=== PATIENT | male | born 1960 | race Caucasian/White ===

== ENCOUNTER 2018-03-30 11:50 | Observation (INO) | payer MEDICAID, SELFPAY ==
[2018-03-30] VITALS (13 sets, daily range): BP systolic 128–175; BP diastolic 66–105; PULSE 59–76; RESP 14–20; TEMP 36.1–37.2; O2SAT 94–97; BMI 56.9; BMI 55.5
[2018-03-30] MEDS: Aspirin 81 MG TAB.CHEW 324 MG PO (12:32)
[2018-03-30] MEDS: Morphine 4 MG/ML Syringe IV (12:32)
--- NOTE | 2018-03-30 12:36 | RAD_ITS ---
STUDY: X-RAY CHEST REASON FOR EXAM: Male, 57 years old. Chest pain TECHNIQUE: AP portable view of the chest. The image is over penetrated. COMPARISON: November 30, 2015. FINDINGS: There are monitoring devices. There is stable elevation of the right hemidiaphragm. There is no focal infiltrate seen. There is no demonstrated pleural abnormality. There is borderline cardiomegaly. Normal mediastinum and tom. Normal visualized pulmonary arteries. Normal visualized aortic arch and descending thoracic aorta. Normal visualized thoracic spine. Normal visualized ribs, clavicles, and shoulders. There is no demonstrated abnormality of the visualized soft tissue structures of the upper abdomen. RAD/Chest 1 View (Portable) IMPRESSION: No infiltrate seen. Overpenetrated exam. Electronically Signed: Juan Miguel Horner MD at 13:55 EDT , Service support ,
[2018-03-30 12:56] LABS: Absolute Lymphocyte Count 1.06 X10^3/ul (0.83-4.51); Absolute Neutrophil Count 3.3 X10^3/uL (2.0-7.7); Basophil# 0.02 X10^3/uL; Basophil% 0.4 % (0-1); Eosinophil# 0.13 X10^3/uL; Eosinophils% 2.6 % (0-5); Hemoglobin 14.6 g/dl (13.0-16.5); Lymphocyte # 1.06 X10^3/ul (4.0); Lymphocyte % 21.5 % (19-41); Mean Corp Hgb Conc 33.2 g/gl (32-36); Mean Corpuscular Hgb 31.5 pg (27.0-32.0); Mean Platelet Vol. 9.8 fl (6.2-12.0); Monocyte# 0.43 X10^3/uL; Monocyte% 8.7 % (0-10); Neutrophil # 3.27 X10^3/uL (2.7-7.7); Neutrophil % 66.6 % (47-70); Platelet Count 211 K/mm3 (150-450); RBC Distribution Width CV 16.5 % (11.6-14.6); RBC Distribution Width SD 56.8 fl (35.1-43.9); Red Blood Count 4.63 M/mm3 (4.6-6.2); White Blood Count 4.9 K/mm3 (4.4-11.0)
[2018-03-30 12:58] LABS: POSITIVE COUNT NO; POSITIVE DIFFERENTIAL NO; POSITIVE MORPHOLOGY NO
[2018-03-30 13:10] LABS: Anion Gap 5 (5-15); BUN 6 mg/dL (7-18); BUN/Creat Ratio 8.6 RATIO (10-20); Calcium,Total 8.2 mg/dL (8.5-10.1); Chloride 100 mmol/L (98-107); Creatinine, Serum 0.69 mg/dL (0.70-1.30); EST Glomerular Filtration Rate 125 mL/min (>60); Est Glom Filt Rate - Afr Amer 151 mL/min (>60); Estimated Creatinine Clearance 138.99 ml/min; Glucose 104 mg/dL (74-106); Potassium 4.5 mmol/L (3.5-5.1); Sodium Level 136 mmol/L (136-145)
--- NOTE | 2018-03-30 13:31 | ED.VISSUMM ---
- ER Visit Summary Date of Service: 03/30/18 Chief Complaint: Pain History of Present Illness: The patient is a 57 M with left sided chest pain and left-sided back pain. Worse with exertion. Associated with weakness and shortness of breath. He has some trouble lifting his left arm and moving his left arm secondary to pain. He denies any injury. Denies any history of this in the past. Denies any weakness or numbness. Denies any history of DVT or aortic disease. He does have a history of fibromyalgia, hypertension, anemia, among other chronic medical issues. He denies any heart disease history. He thinks he had a stress test about 2 years ago which was unremarkable. He does not smoke. Physical Examination: Blood pressure 175/105. Otherwise vitals unremarkable. Afebrile. Alert and oriented. No acute distress. Heart regular rate and rhythm. Lungs clear. Abdomen soft and nontender. Extremities unremarkable. Good pulses. Legs soft and supple. Skin appears normal in color without diaphoresis or pallor. Test Results: EKG shows sinus rhythm at a rate of 58. No sign of acute ischemia or infarction pattern. CBC, BMP, and troponin unremarkable. Chest x-ray pending. Emergency Department Course and Treatment: Patient has some suspicion for ACS. His age and risk factors indicate a heart score of 4. ROLANDO score is 1. Patient is appropriate for hospital observation. Will discuss with the hospitalist for further care. Treatment Plan: As above Disposition: Admission Impression: 1. Chest pain This note was generated with [employer] dictation software. It may contain incorrect words, spelling, and punctuation that were not noted in review of the chart prior to signing ED Disposition - Plan for ED Patient: Chief Complaint: Chest Pain Referrals: Kieran Beard MD [Primary Care Provider] -
--- NOTE | 2018-03-30 15:08 | PCM.HP.STD ---
Problem List (1) Chest pain Status: Acute History of Present Illness Date of Admission: 03/30/18 Chief Complaint: chest pain. The patient is a 57 year old M presents with a 2 day history of constant chest pain. Patient states that the chest pain is worse when he exerts himself, takes a deep breath and coughs. Patient states that he is short of breath because he feels he cannot take in a adequate breath. Patient presents to the emergency room and his workup here has been unremarkable. Hospitalist services been asked to admit the patient for further chest pain evaluation. [] Past Medical History Medical History: Medical History (Last Updated 03/30/18 @ 15:10 by Ankit Aguilar DO) Calcium deficiency E58 Depression F32.9 Fibromyalgia M79.7 Hypoglycemia E16.2 Neuropathy G62.9 Vitamin B12 deficiency E53.8 HTN (hypertension) I10 Allergies duloxetine [From Cymbalta] Adverse Reaction (Verified 03/30/18 11:57) Other SERATONIN SYNDROME Home Medications: Ambulatory Orders Medication Instructions Recorded Lisinopril [Zestril] 20 mg PO DAILY 11/30/15 Albuterol Inhaler [Ventolin Hfa 2 puff INHALATION Q6H PRN PRN 03/30/18 (SP)] Baclofen [Lioresal] 10 mg PO BID 03/30/18 Clonazepam [Klonopin] 1 mg PO BID 03/30/18 Cyanocobalamin (Vitamin B-12) 1,000 mcg IM QMONTH 03/30/18 [Vitamin B-12] Ferrous Sulfate [Iron] 325 mg PO DAILY 03/30/18 Gabapentin [Neurontin] 300 mg PO TIDCM 03/30/18 Hydrochlorothiazide [Hctz] 25 mg PO DAILY 03/30/18 Metoprolol Tartrate [Lopressor 50 mg PO BID 03/30/18 (Beta Remi)] Sertraline HCl [Zoloft] 100 mg PO QHS 03/30/18 Sulfamethoxazole/Trimethoprim 1 each PO DAILY 03/30/18 [Bactrim 400-80 mg Tablet] Surgical History: Surgical History (Last Updated 03/30/18 @ 15:11 by Ankit Aguilar DO) H/O gastric bypass Z98.84 Psychiatric History: Depression Lives: Friends Smoking Status: Former smoker Tobacco Use: Cigarettes Alcohol: Occasional Drugs: Marijuana - rare - *Family History Paternal History Items: Heart Disease Review of Systems Constitutional: Denies: Anorexia, Chills, Fever Eyes: Reports: Blurred vision - occasional. Denies: Double vision HEENT: Denies: Head Aches, Sinus Congestion, Sinus Drainage Cardiovascular: Reports: Chest Pain. Denies: Edema Respiratory: Reports: Shortness of Breath. Denies: Cough Gastrointestinal: Reports: Abdominal Pain, Diarrhea - x1 month Genitourinary: Denies: Dysuria Musculoskeletal: Reports: Arm Pain - left arm pain when raised. Denies: Joint Pain, Joint Tenderness Skin: Denies: Dryness, Jaundice Neurological: Denies: Numbness, Tingling, Focal weakness Psychiatric: Denies: Anxiety, Depression Endocrine: Reports: Heat/ Cold Intolerance. Denies: Change in Body Habitus Hematologic/ Lymphatic: Denies: Easy Bruising, Easy Bleeding, Hx of blood clot Comment: All review of systems are negative except as mentioned in the history of present illness and the other review of systems. VTE Information - Inpt Only VTE Present on Admission: No VTE Mechan Device Prophylaxis: None VTE Pharm Prophylaxis ordered?: Yes Patient Problems: Active and Suspected Problems Chest pain (Acute) - Physical Exam General: Alert, Cooperative, No apparent distress HEENT: Atraumatic, Normocephalic Oral: Moist Mucosa, No Gingival or Mucosal Lesions/ Ulcerations Neck: No Nodes, Thyroid Normal Size and Texture Lungs: Clear to auscultation, Normal air movement, No rhonchi, No wheeze Cardiovascular: Regular rate, Regular Rhythm, Normal S1, Normal S2, No murmurs Abdomen: Bowel Sounds Present, Soft, Non Tender, Non-Distended, No Hepato-splenomegaly Extremities: No Calf Tenderness, Edema - Trace Skin: No rashes, No breakdown Musculoskeletal: No Muscle Wasting, - - Reproducible exquisite left-sided chest tenderness that was reproducible on the same side in his back. Neurological: Neuro grossly intact, Muscle tone normal Psych/Mental Status: Normal Affect, Appropriate Vital Signs Temp Pulse Resp BP Pulse Ox 36.1 C L 61 20 H 134/84 H 97 03/30/18 14:35 03/30/18 14:35 03/30/18 14:35 03/30/18 14:35 03/30/18 14:34 Oxygen Delivery Method Room Air Weight: 201 kg Body Mass Index (BMI) 56.9 Laboratory Tests Past 24 Hrs 03/30/18 03/30/18 11:59 11:59 WBC 4.9 RBC 4.63 Hgb 14.6 Hct 44.0 MCV 95.0 H MCH 31.5 MCHC 33.2 RDW 16.5 H RDW Differential 56.8 H Plt Count 211 MPV 9.8 Immature Gran % (Auto) 0.200 Neut % (Auto) 66.6 Lymph % (Auto) 21.5 [place] % (Auto) 8.7 Eos % (Auto) 2.6 Baso % (Auto) 0.4 Absolute Neuts (auto) 3.3 Absolute Lymphs (auto) 1.06 Total Counted Not Reportable Sodium 136 Potassium 4.5 Chloride 100 Carbon Dioxide 31.0 Anion Gap 5 BUN 6 L Creatinine 0.69 L Estim Creat Clear Calc 138.99 Est GFR (MDRD) Af Amer 151 Est GFR (MDRD) Non-Af 125 BUN/Creatinine Ratio 8.6 L Glucose 104 Calcium 8.2 L Troponin I < 0.015 EKG reviewed and showed normal sinus rhythm with no acute changes. Chest x-ray reviewed and showed no pneumonia nor pulmonary edema. Assessment/Plan All Active Problems Chest pain (Acute) 1. Chest pain Doubt cardiac in suspect musculoskeletal Heart score of 2, ROLANDO of 0 Request admission through the emergency room for chest pain rule out and patient will be ordered a nuclear stress test which will be performed on the if that is negative the patient will be discharged home. If positive, cardiology will be consulted for further input Aspirin Check lipid panel Cycle troponins 2. DVT prophylaxis: Moderate risk. Lovenox. Code Visit OBSV E&M: 26569 Initial observation care L3
--- NOTE | 2018-03-30 15:12 | HP.PCM_ITS ---
Problem List (1) Chest pain Status: Acute History of Present Illness Date of Admission: 03/30/18 Chief Complaint: chest pain. The patient is a 57 year old M presents with a 2 day history of constant chest pain. Patient states that the chest pain is worse when he exerts himself, takes a deep breath and coughs. Patient states that he is short of breath because he feels he cannot take in a adequate breath. Patient presents to the emergency room and his workup here has been unremarkable. Hospitalist services been asked to admit the patient for further chest pain evaluation. [] Past Medical History Medical History: Medical History (Last Updated 03/30/18 @ 15:10 by Ankit Aguilar DO) Calcium deficiency E58 Depression F32.9 Fibromyalgia M79.7 Hypoglycemia E16.2 Neuropathy G62.9 Vitamin B12 deficiency E53.8 HTN (hypertension) I10 Allergies duloxetine [From Cymbalta] Adverse Reaction (Verified 03/30/18 11:57) Other SERATONIN SYNDROME Home Medications: Ambulatory Orders Medication Instructions Recorded Lisinopril [Zestril] 20 mg PO DAILY 11/30/15 Albuterol Inhaler [Ventolin Hfa 2 puff INHALATION Q6H PRN PRN 03/30/18 (SP)] Baclofen [Lioresal] 10 mg PO BID 03/30/18 Clonazepam [Klonopin] 1 mg PO BID 03/30/18 Cyanocobalamin (Vitamin B-12) 1,000 mcg IM QMONTH 03/30/18 [Vitamin B-12] Ferrous Sulfate [Iron] 325 mg PO DAILY 03/30/18 Gabapentin [Neurontin] 300 mg PO TIDCM 03/30/18 Hydrochlorothiazide [Hctz] 25 mg PO DAILY 03/30/18 Metoprolol Tartrate [Lopressor 50 mg PO BID 03/30/18 (Beta Remi)] Sertraline HCl [Zoloft] 100 mg PO QHS 03/30/18 Sulfamethoxazole/Trimethoprim 1 each PO DAILY 03/30/18 [Bactrim 400-80 mg Tablet] Surgical History: Surgical History (Last Updated 03/30/18 @ 15:11 by Ankit Aguilar DO) H/O gastric bypass Z98.84 Psychiatric History: Depression Lives: Friends Smoking Status: Former smoker Tobacco Use: Cigarettes Alcohol: Occasional Drugs: Marijuana - rare - *Family History Paternal History Items: Heart Disease Review of Systems Constitutional: Denies: Anorexia, Chills, Fever Eyes: Reports: Blurred vision - occasional. Denies: Double vision HEENT: Denies: Head Aches, Sinus Congestion, Sinus Drainage Cardiovascular: Reports: Chest Pain. Denies: Edema Respiratory: Reports: Shortness of Breath. Denies: Cough Gastrointestinal: Reports: Abdominal Pain, Diarrhea - x1 month Genitourinary: Denies: Dysuria Musculoskeletal: Reports: Arm Pain - left arm pain when raised. Denies: Joint Pain, Joint Tenderness Skin: Denies: Dryness, Jaundice Neurological: Denies: Numbness, Tingling, Focal weakness Psychiatric: Denies: Anxiety, Depression Endocrine: Reports: Heat/ Cold Intolerance. Denies: Change in Body Habitus Hematologic/ Lymphatic: Denies: Easy Bruising, Easy Bleeding, Hx of blood clot Comment: All review of systems are negative except as mentioned in the history of present illness and the other review of systems. VTE Information - Inpt Only VTE Present on Admission: No VTE Mechan Device Prophylaxis: None VTE Pharm Prophylaxis ordered?: Yes Patient Problems: Active and Suspected Problems Chest pain (Acute) - Physical Exam General: Alert, Cooperative, No apparent distress HEENT: Atraumatic, Normocephalic Oral: Moist Mucosa, No Gingival or Mucosal Lesions/ Ulcerations Neck: No Nodes, Thyroid Normal Size and Texture Lungs: Clear to auscultation, Normal air movement, No rhonchi, No wheeze Cardiovascular: Regular rate, Regular Rhythm, Normal S1, Normal S2, No murmurs Abdomen: Bowel Sounds Present, Soft, Non Tender, Non-Distended, No Hepato- splenomegaly Extremities: No Calf Tenderness, Edema - Trace Skin: No rashes, No breakdown Musculoskeletal: No Muscle Wasting, - - Reproducible exquisite left-sided chest tenderness that was reproducible on the same side in his back. Neurological: Neuro grossly intact, Muscle tone normal Psych/Mental Status: Normal Affect, Appropriate Vital Signs Temp Pulse Resp BP Pulse Ox 36.1 C L 61 20 H 134/84 H 97 03/30/18 14:35 03/30/18 14:35 03/30/18 14:35 03/30/18 14:35 03/30/18 14:34 Oxygen Delivery Method Room Air Weight: 201 kg Body Mass Index (BMI) 56.9 Laboratory Tests Past 24 Hrs 03/30/18 03/30/18 11:59 11:59 WBC 4.9 RBC 4.63 Hgb 14.6 Hct 44.0 MCV 95.0 H MCH 31.5 MCHC 33.2 RDW 16.5 H RDW Differential 56.8 H Plt Count 211 MPV 9.8 Immature Gran % (Auto) 0.200 Neut % (Auto) 66.6 Lymph % (Auto) 21.5 [place] % (Auto) 8.7 Eos % (Auto) 2.6 Baso % (Auto) 0.4 Absolute Neuts (auto) 3.3 Absolute Lymphs (auto) 1.06 Total Counted Not Reportable Sodium 136 Potassium 4.5 Chloride 100 Carbon Dioxide 31.0 Anion Gap 5 BUN 6 L Creatinine 0.69 L Estim Creat Clear Calc 138.99 Est GFR (MDRD) Af Amer 151 Est GFR (MDRD) Non-Af 125 BUN/Creatinine Ratio 8.6 L Glucose 104 Calcium 8.2 L Troponin I < 0.015 EKG reviewed and showed normal sinus rhythm with no acute changes. Chest x-ray reviewed and showed no pneumonia nor pulmonary edema. Assessment/Plan All Active Problems Chest pain (Acute) 1. Chest pain * Doubt cardiac in suspect musculoskeletal * Heart score of 2, ROLANDO of 0 * Request admission through the emergency room for chest pain rule out and patient will be ordered a nuclear stress test which will be performed on the if that is negative the patient will be discharged home. If positive, cardiology will be consulted for further input * Aspirin * Check lipid panel * Cycle troponins 2. DVT prophylaxis: Moderate risk. Lovenox. Code Visit OBSV E&M: 13403 Initial observation care L3
--- NOTE | 2018-03-30 15:35 | NURSING ---
CALLED [facility] IN ER. [facility] TO SEND PT.
[2018-03-30] MEDS: Gabapentin 300 MG Capsule PO ×2 (18:39→23:15)
[2018-03-30] MEDS: 0.9% NaCl Peripheral Flush Adult/Peds IV ×2 (19:01→23:22)
[2018-03-30] MEDS: Morphine 2 MG/ML Syringe IV ×2 (19:01→23:20)
[2018-03-30] MEDS: Baclofen 10 MG Tablet PO (21:08)
[2018-03-30] MEDS: Metoprolol Tartrate 50 MG Tablet PO (21:08)
[2018-03-30] MEDS: Sertraline 100 MG Tablet PO (21:08)
[2018-03-30] MEDS: clonazePAM 1 MG Tablet PO (21:16)
[2018-03-31] VITALS (10 sets, daily range): BP systolic 126–150; BP diastolic 64–76; PULSE 60–70; RESP 16–18; TEMP 36.7–37.1; O2SAT 93–99
[2018-03-31] MEDS: 0.9% NaCl Peripheral Flush Adult/Peds IV (03:37)
[2018-03-31] MEDS: Morphine 2 MG/ML Syringe IV ×2 (03:37→07:53)
--- NOTE | 2018-03-31 05:55 | NM_ITS ---
CLINICAL: 57-year-old male with reported history of atypical chest discomfort. REST-REGADENOSON 99m Tc SESTAMIBI STRESS MYOCARDIAL PERFUSION SPECT COMPARISON: None available FINDINGS: Following the intravenous administration of 15.0 mCi of 99m Tc sestamibi, the resting non-attenuated correction myocardial perfusion acquisitions demonstrate decreased perfusion in the apical, inferoapical, inferior and basal inferior segments with otherwise heterogeneous perfusion noted in the remaining left ventricular myocardial segments. The left ventricular chamber is prominent in size. The patient was administered intravenous regadenoson (0.4 mgm). Following the intravenous administration of 45.0 mCi of 99m Tc sestamibi, the post regadenoson images reveal improved perfusion identified in the apical, inferoapical, inferior and basal inferior segments with decreased heterogeneity noted in the remaining left ventricular myocardial segments. No newly identified decreased perfusion is noted. The left ventricular chamber remains prominent in size, unchanged compared to the resting acquisitions. The post stress resting left ventricular ejection fraction is calculated to be 55.0 % by gated SPECT technique. Wall motion and end systolic thickening are considered normal. The end-diastolic and end-systolic volumes are calculated to be 135 and 60 cc respectively. NM/Nuclear Stress Test - Chemical IMPRESSION: 1. There is no definitive scintigraphic evidence of pharmacologic induced left ventricular ischemia. 2. The overall resting heterogeneous perfusion and rest perfusion defects identified in the apical, inferoapical, inferior and basal inferior segments with improvement on the post stress acquisitions are likely attributed to attenuation artifact associated with relative low dose rest acquisition radiopharmaceutical administration, in the absence of previous revascularization. ([place], J Nucl Med 36: 1019, 1995). 3. There is preservation of resting left ventricular myocardial systolic function. The left ventricular chamber is mildly dilated on the post stress acquisitions, unchanged at rest. The end-diastolic volume is elevated compared to normal controls. (Jayde et al, J Nucl Med 37: 105P, 1995). Electronically Signed: Brandyn Hardy DO at 14:30 EDT Tel , Service support ,
[2018-03-31] MEDS: Aspirin E.C. 81 MG Tablet PO (06:40)
[2018-03-31] MEDS: Lisinopril 20 MG Tablet PO (06:41)
[2018-03-31 07:11] LABS: Bedside Glucose 109 mg/dL (70-110)
[2018-03-31 07:31] LABS: Absolute Neutrophil Count 2.8 X10^3/uL (2.0-7.7); Basophil# 0.01 X10^3/uL; Basophil% 0.2 % (0-1); Eosinophil# 0.14 X10^3/uL; Eosinophils% 2.8 % (0-5); Hematocrit 41.2 % (40-54); Hemoglobin 13.2 g/dl (13.0-16.5); Lymphocyte % 31.6 % (19-41); Mean Corpuscular Hgb 30.9 pg (27.0-32.0); Mean Corpuscular Volume 96.5 fL (80-94); Mean Platelet Vol. 9.6 fl (6.2-12.0); Monocyte# 0.51 X10^3/uL; Monocyte% 10.1 % (0-10); Neutrophil # 2.81 X10^3/uL (2.7-7.7); Neutrophil % 55.3 % (47-70); Platelet Count 162 K/mm3 (150-450); RBC Distribution Width CV 16.6 % (11.6-14.6); RBC Distribution Width SD 58.2 fl (35.1-43.9); Red Blood Count 4.27 M/mm3 (4.6-6.2); White Blood Count 5.1 K/mm3 (4.4-11.0)
[2018-03-31 07:32] LABS: POSITIVE COUNT NO; POSITIVE DIFFERENTIAL NO; POSITIVE MORPHOLOGY NO
[2018-03-31 07:34] LABS: International Normalized Ratio 1.1; Prothrombin Time (Protime)PT. 14.3 SECONDS (11.7-14.9)
[2018-03-31 07:35] LABS: Partial Thromboplast Time 29.7 Seconds (24.1-36.2)
[2018-03-31 07:50] LABS: Anion Gap 11 (5-15); BUN 8 mg/dL (7-18); Calcium,Total 7.9 mg/dL (8.5-10.1); Chloride 101 mmol/L (98-107); Cholesterol 115 mg/dL (200); Creatinine, Serum 0.73 mg/dL (0.70-1.30); EST Glomerular Filtration Rate 118 mL/min (>60); Est Glom Filt Rate - Afr Amer 143 mL/min (>60); Estimated Creatinine Clearance 131.37 ml/min; Glucose 95 mg/dL (74-106); High Density Lipoprotein 45 mg/dL; Potassium 4.3 mmol/L (3.5-5.1); Sodium Level 141 mmol/L (136-145); Triglycerides 150 mg/dL; Very Low Density Lipoprotein 30 mg/dL (5-40)
[2018-03-31] MEDS: oxyCODONE 5 MG Tablet PO ×2 (11:44→16:09)
[2018-03-31] MEDS: Ferrous Sulfate 325 MG Tablet PO (11:52)
[2018-03-31] MEDS: Metoprolol Tartrate 50 MG Tablet PO (11:52)
[2018-03-31] MEDS: Baclofen 10 MG Tablet PO (11:53)
[2018-03-31] MEDS: hydroCHLOROthiazide 25 MG Tablet PO (11:53)
[2018-03-31] MEDS: Gabapentin 300 MG Capsule PO (11:53)
[2018-03-31] MEDS: Smz/Tmp Ds Tablet 0.5 TABLET PO (11:53)
[2018-03-31] MEDS: Enoxaparin 40 MG/0.4 ML Syringe SC (11:54)
[2018-03-31] MEDS: clonazePAM 1 MG Tablet PO (12:03)
[2018-03-31 13:38] LABS: D-Dimer Quantitative (DVT/PE) 1.29 FEU/ug/m (0.27-0.49)
--- NOTE | 2018-03-31 13:47 | CT_ITS ---
STUDY: CTA CHEST REASON FOR EXAM: Male, 57 years old. Chest pain. Fibromyalgia. RADIATION DOSAGE (If Supplied By Facility): CTDIvol = ( 73.57 ) mGy, DLP = ( 1084.65 ) mGycm TECHNIQUE: The examination was performed with the intravenous administration of 100 ml of Isovue 370 contrast material. Post-processing of the angiographic images was performed, with multiplanar reformation and 3D reconstruction. Individualized dose optimization techniques were used for this CT. COMPARISON: November 30, 2015. FINDINGS: There is limited enhancement of the main pulmonary artery and right and left pulmonary arteries. There is limited enhancement of the bilateral peripheral pulmonary arteries. There is no demonstrated pulmonary embolism. Normal thoracic aorta and visualized great vessels. There is no demonstrated aortic dissection. There are calcifications of the coronary arteries. Normal mediastinum. Normal hilar regions. Normal visualized trachea and bronchi. The lungs are well expanded. Elevation of the anterior right hemidiaphragm. Normal pulmonary parenchyma. Normal pleura. Normal chest wall structures. There are degenerative changes of thoracic spine. Normal visualized upper abdomen. Metallic densities medial to the spleen. Postoperative change at the stomach. CT/CTA Chest W/WO Contrast IMPRESSION: CTA chest examination, without a demonstrated pulmonary embolism or arterial dissection. Electronically Signed: Juan Miguel Horner MD at 15:27 EDT , Service support ,
--- NOTE | 2018-03-31 14:01 | PN_ITS ---
Patient Problems: Active and Suspected Problems (Last Updated 03/30/18 @ 15:10 by Ankit Aguilar DO ) Chest pain (Acute) Subjective: still with left sided chest pain. Vitals/I&O's: Vital Signs Temp Pulse Resp BP Pulse Ox 36.7 C 64 16 146/64 H 99 03/31/18 12:07 03/31/18 12:07 03/31/18 12:07 03/31/18 12:07 03/31/18 12:07 Oxygen Flow Rate (L/min) 2 Oxygen Delivery Method Nasal Cannula Weight: 196.315 kg Body Mass Index (BMI) 55.5 Intake and Output for Last 24 Hours 03/29/18 03/30/18 03/31/18 23:59 23:59 23:59 Intake Total 240 / 240 480 / 480 Output Total 2425 / 2425 Balance 240 / 240 -1945 / -1945 General: Alert, - - uncomfortable. HEENT: Atraumatic, Normocephalic Oral: Moist Mucosa, No Gingival or Mucosal Lesions/ Ulcerations Neck: No Nodes, Thyroid Normal Size and Texture Lungs: Clear to auscultation, Normal air movement, No rhonchi, No wheeze Cardiovascular: Regular rate, Regular Rhythm, Normal S1, Normal S2, No murmurs Abdomen: Bowel Sounds Present, Soft, Non Tender, Non-Distended, No Hepato- splenomegaly Extremities: No edema, No Calf Tenderness Skin: No rashes, No breakdown Musculoskeletal: - - reproducible left chest wall tenderness. Psych/Mental Status: Normal Affect, Appropriate Laboratory Results 03/30/18 16:34: Troponin I < 0.015 03/30/18 19:11: Troponin I < 0.015 03/31/18 06:43: POC Glucose 109 03/31/18 07:08: Sodium 141, Potassium 4.3, Chloride 101, Carbon Dioxide 29.0, Anion Gap 11, BUN 8, Creatinine 0.73, Estim Creat Clear Calc 131.37, Est GFR ( MDRD) Af Amer 143, Est GFR (MDRD) Non-Af 118, BUN/Creatinine Ratio 11.0, Glucose 95, Calcium 7.9 L, Triglycerides 150, Cholesterol 115, LDL Cholesterol 40, VLDL Cholesterol 30, HDL Cholesterol 45 03/31/18 07:08: WBC 5.1, RBC 4.27 L, Hgb 13.2, Hct 41.2, MCV 96.5 H, MCH 30.9, MCHC 32.0, RDW 16.6 H, RDW Differential 58.2 H, Plt Count 162, MPV 9.6, Immature Gran % (Auto) 0.000, Neut % (Auto) 55.3, Lymph % (Auto) 31.6, [place] % ( Auto) 10.1 H, Eos % (Auto) 2.8, Baso % (Auto) 0.2, Absolute Neuts (auto) 2.8, Absolute Lymphs (auto) 1.60, Total Counted Not Reportable 03/31/18 07:08: PT 14.3, INR 1.1, APTT 29.7 03/31/18 07:08: D-Dimer Quant (PE/DVT) 1.29 H* Current Medications Acetaminophen (Tylenol) 650 mg PO Q6H PRN PRN PRN Reason: Mild Pain (1-3)/Temp > 100.7 F Albuterol Sulfate (Ventolin Aerosols) 2.5 mg INHALATION Q4H PRN PRN PRN Reason: SOB AND/OR WHEEZING Aspirin (Ecotrin) 81 mg PO DAILY@0800 [facility] Last Admin: 03/31/18 06:40 Dose: 81 mg Baclofen (Lioresal) 10 mg PO BID [facility] Last Admin: 03/31/18 11:53 Dose: 10 mg Clonazepam (Klonopin) 1 mg PO BID [facility] Last Admin: 03/31/18 12:03 Dose: 1 mg Cyanocobalamin (Vitamin B12) 1,000 mcg IM QMONTH ONE Stop: 04/21/18 10:01 Enoxaparin Sodium (Lovenox) 40 mg SC DAILY@1000 [facility] Last Admin: 03/31/18 11:54 Dose: 40 mg Ferrous Sulfate (Ferrous Sulfate) 325 mg PO DAILY@1200 [facility] Last Admin: 03/31/18 11:52 Dose: 325 mg Gabapentin (Neurontin) 300 mg PO TIDCM [facility] Last Admin: 03/31/18 11:53 Dose: 300 mg Hydrochlorothiazide (Hctz) 25 mg PO DAILY [facility] Last Admin: 03/31/18 11:53 Dose: 25 mg Lisinopril (Zestril) 20 mg PO DAILY [facility] Last Admin: 03/31/18 06:41 Dose: 20 mg Magnesium Hydroxide (Milk Of Magnesia) 30 ml PO DAILY PRN PRN Reason: Constipation Metoprolol Tartrate (Lopressor (Beta Remi)) 50 mg PO BID [facility] Last Admin: 03/31/18 11:52 Dose: 50 mg Morphine Sulfate () 2 - 4 mg IV Q4H PRN PRN PRN Reason: MOD-SEVERE PAIN (4-10) Last Admin: 03/31/18 07:53 Dose: 4 mg Nitroglycerin (Nitrostat) 0.4 mg SUBLINGUAL Q5M PRN PRN Reason: CHEST PAIN Nutritional Formula (Lactose Free) (Glucerna Shake) 120 ml PO 4X/DAY [facility] Oxycodone HCl (Oxyir) 5 - 10 mg PO Q4H PRN PRN PRN Reason: MOD-SEVERE PAIN (4-05/30) Last Admin: 03/31/18 11:44 Dose: 10 mg Sertraline HCl (Zoloft) 100 mg PO QHS [facility] Last Admin: 03/30/18 21:08 Dose: 100 mg Sodium Chloride () 5 - 30 ml IV UD PRN PRN Reason: SALINE FLUSH Last Admin: 03/31/18 03:37 Dose: 10 ml Trimethoprim/Sulfamethoxazole (Bactrim Ds) 0.5 tablet PO DAILY@0800 [facility] Last Admin: 03/31/18 11:53 Dose: 0.5 tablet Medical Necessity - Tobacco Use Smoking Status: Former smoker Tobacco Use: Cigarettes Assessment/Plan All Active Problems (Last Updated 03/30/18 @ 15:10 by Ankit Aguilar DO) Chest pain (Acute) 1. Chest pain * Doubt cardiac in suspect musculoskeletal * Heart score of 2, ROLANDO of 0 * Request admission through the emergency room for chest pain rule out and patient will be ordered a nuclear stress test which will be performed on the if that is negative the patient will be discharged home. If positive, cardiology will be consulted for further input * Aspirin * Check lipid panel * Cycle troponins * D-Dimer elevated, CTA ordered 2. DVT prophylaxis: Moderate risk. Lovenox. Code Visit OBSV E&M: 60680 Subsequent observation care L2
[2018-03-31] MEDS: Glucerna Shake 120 ML LIQUID PO (15:03)
--- NOTE | 2018-03-31 15:55 | PCM.DC ---
- Discharge Diagnoses Current Active Problems: Current Active and Chronic Problems (Last Updated 03/30/18 @ 15:10 by Ankit Aguilar DO) Chest pain (Acute) You will use the following diet at home:: Cardiac Your food should be the consistency of: Regular Your liquids should be the consistency of: Regular/Thin Discharge Activity: Return to Normal Activity Call your doctor if you observe: Fever of 101 or Higher Instructions: ED Chest Pain NonCardiac Allergies/Adverse Reactions: Allergies duloxetine [From Cymbalta] Adverse Reaction (Verified 03/30/18 11:57) Other SERATONIN SYNDROME Medications to take at Discharge Lisinopril [Zestril] 20 mg PO DAILY 11/30/15 Albuterol Inhaler [Ventolin Hfa] 2 puff INHALATION Q6H PRN PRN 03/30/18 Baclofen [Lioresal] 10 mg PO BID 03/30/18 Clonazepam [Klonopin] 1 mg PO BID 03/30/18 Cyanocobalamin (Vitamin B-12) [Vitamin B-12] 1,000 mcg IM QMONTH 03/30/18 Ferrous Sulfate [Iron] 325 mg PO DAILY 03/30/18 Gabapentin [Neurontin] 300 mg PO TIDCM 03/30/18 Hydrochlorothiazide [Hctz] 25 mg PO DAILY 03/30/18 Metoprolol Tartrate [Lopressor (beta gali)] 50 mg PO BID 03/30/18 Sertraline HCl [Zoloft] 100 mg PO QHS 03/30/18 Sulfamethoxazole/Trimethoprim [Bactrim 400-80 mg Tablet] 1 each PO DAILY 03/30/18 Acetaminophen 1,000 mg PO TID PRN #1 tablet 03/31/18 Ibuprofen 4 tab PO TID PRN #1 tablet 03/31/18 The following prescriptions were given: Acetaminophen 1,000 mg PO TID PRN #1 tablet PRN Reason: Pain Ibuprofen 4 tab PO TID PRN #1 tablet PRN Reason: Pain Primary Care Physician: Kieran Beard MD [Primary Care Provider] - Within 2 Weeks Test Results: Test results from this visit will be discussed in further detail at your follow-up appointment, if applicable. Proposed Discharge Date: 03/31/18
--- NOTE | 2018-03-31 15:56 | PCM.DC.SUM ---
Discharge Date and Diagnosis - Problem List Patient Problems: Active and Suspected Problems (Last Updated 03/30/18 @ 15:10 by Ankit Aguilar DO) Chest pain (Acute) Date of Admission: 03/30/18 Date of Discharge: 03/31/18 - Primary Discharge Diagnosis Active and Suspected Problems (Last Updated 03/30/18 @ 15:10 by Ankit Aguilar DO) Chest pain (Acute) Hospital Course and Treatment Imaging Results: 03/31/18 13:47 CTA Chest W/WO Contrast [CT] Urgent Clinical Impression(s) from Imaging Studies Chest X-Ray 03/30/18 12:36 IMPRESSION: No infiltrate seen. Overpenetrated exam. Electronically Signed: Juan Miguel Horner MD at 13:55 EDT , Service support , Stress Test Nuclear Medicine 03/31/18 05:55 IMPRESSION: 1. There is no definitive scintigraphic evidence of pharmacologic induced left ventricular ischemia. 2. The overall resting heterogeneous perfusion and rest perfusion defects identified in the apical, inferoapical, inferior and basal inferior segments with improvement on the post stress acquisitions are likely attributed to attenuation artifact associated with relative low dose rest acquisition radiopharmaceutical administration, in the absence of previous revascularization. (Lisa and Koffi, J Nucl Med 36: 1019, 1995). 3. There is preservation of resting left ventricular myocardial systolic function. The left ventricular chamber is mildly dilated on the post stress acquisitions, unchanged at rest. The end-diastolic volume is elevated compared to normal controls. (Jayde et al, J Nucl Med 37: 105P, 1995). Electronically Signed: Brandyn Hardy DO at 14:30 EDT Tel , Service support , Chest CTA 03/31/18 13:47 IMPRESSION: CTA chest examination, without a demonstrated pulmonary embolism or arterial dissection. Electronically Signed: Juan Miguel Horner MD at 15:27 EDT , Service support , Operations: None Procedures: None, Stress test Summary of Care Provided: The patient is a 57 year old M presents with acute onset of left-sided chest pain. Patient described it as someone sitting on his chest and also had left arm pain. Patient also did state that was worse with taking a deep breath and felt short of breath because he could not take in a deep breath. Was concerned given his family history. Patient was admitted and underwent a stress test which is negative. Patient did have an elevated d-dimer and underwent a CT injury of the chest which was also negative for pulmonary embolism and infiltrate. Patient has a reproducible component to his chest pains is felt that this is likely a rib related. Patient instructed to take ibuprofen 800 mg 3 times daily as needed for up to 3 days and then acetaminophen thousand milligrams 3 times daily as needed for pain. Reassurance was provided to the patient that this is a muscular skeletal issue and it will get better with time but also told him that it may take a few weeks for it to completely resolve. Patient expressed understanding. [] Discharge Activity: Return to Normal Activity Call your doctor if you observe: Fever of 101 or Higher Home Medications: Medications to take at Discharge Lisinopril [Zestril] 20 mg PO DAILY 11/30/15 Albuterol Inhaler [Ventolin Hfa] 2 puff INHALATION Q6H PRN PRN 03/30/18 Baclofen [Lioresal] 10 mg PO BID 03/30/18 Clonazepam [Klonopin] 1 mg PO BID 03/30/18 Cyanocobalamin (Vitamin B-12) [Vitamin B-12] 1,000 mcg IM QMONTH 03/30/18 Ferrous Sulfate [Iron] 325 mg PO DAILY 03/30/18 Gabapentin [Neurontin] 300 mg PO TIDCM 03/30/18 Hydrochlorothiazide [Hctz] 25 mg PO DAILY 03/30/18 Metoprolol Tartrate [Lopressor (beta gali)] 50 mg PO BID 03/30/18 Sertraline HCl [Zoloft] 100 mg PO QHS 03/30/18 Sulfamethoxazole/Trimethoprim [Bactrim 400-80 mg Tablet] 1 each PO DAILY 03/30/18 Acetaminophen 1,000 mg PO TID PRN #1 tablet 03/31/18 Ibuprofen 4 tab PO TID PRN #1 tablet 03/31/18 Following Prescrptions Were Given to Patient: Acetaminophen 1,000 mg PO TID PRN #1 tablet PRN Reason: Pain Ibuprofen 4 tab PO TID PRN #1 tablet PRN Reason: Pain Primary Care Physician: Kieran Beard MD [Primary Care Provider] - Within 2 Weeks Patient Instructions: ED Chest Pain NonCardiac Medical Necessity - Tobacco Use Smoking Status: Former smoker Tobacco Use: Cigarettes Meaningful Use Info Meaningful Use Diagnoses (Choose all that apply): None applicable Code Visit OBSV E&M: 16711 Observation care discharge
--- NOTE | 2018-04-02 15:29 | STRESSREP ---
Stress Test Report Pharmacologic myocardial perfusion stress test. 57-year-old male with a history of chest pain. Stress protocol: Resting EKG demonstrates sinus rhythm with rate of 60 bpm resting blood pressure is 138/80 mmHg. 0.4 mg regadenoson was infused per usual protocol followed by rapid intravenous saline flush injection continuous EKG monitoring was performed. The patient maintained sinus rhythm throughout the recording. The maximum heart rate attained was 81 bpm which is 49% of maximum predicted heart rate the maximum workload was 1 metabolic equivalent. There were no ST or T-wave changes noted to suggest abnormal flow reserve. Myocardial perfusion protocol. The above was performed by the nuclear helmet hat brim cutter. Conclusion: Pharmacologic myocardial perfusion stress test with no EKG evidence of abnormal flow reserve. Nuclear images dictated separately.
== END 2018-03-31 15:56 | disposition home or self-care (01) ==
LOC: ED 13:50 → PCU 15:51
PROVIDERS: Emergency Provider Emergency Medicine; Family Provider Family Medicine; PCP Family Medicine
DX: R07.89 Other chest pain (principal); M79.7 Fibromyalgia; I10 Essential (primary) hypertension; D64.9 Anemia, unspecified; R06.02 Shortness of breath; Z87.891 Personal history of nicotine dependence; Z79.899 Other long term (current) drug therapy; F32.9 Major depressive disorder, single episode, unspecified; E53.8 Deficiency of other specified B group vitamins; Z98.84 Bariatric surgery status
CPT/HCPCS: 36415; 71045; 71275; 78452; 80048; 80061; 82962; 84484; 85025; 85379; 85610; 85730; 93005; 93017; 96372; 96374; 96376; 97802; 99218; 99284; A9500; Q9967; A4216; G0378; J2785

== ENCOUNTER 2018-05-29 07:20 | Day surgery (SDC) | payer MEDICAID, SELFPAY ==
[2018-05-29 07:59] VITALS: BP 159/86; PULSE 76; RESP 16; TEMP 36.3; O2SAT 95; BMI 57.4
--- NOTE | 2018-05-29 08:30 | ESO_PTH ---
PATIENT: ACRLIN SMITH LOC: EN U#:[id number] AGE/SX: 57/M ROOM: RE05/29/[address]: Dr. Darrian Carter MD : 1960 BED: DIS: 05/29/2018 SPEC #: [id number] RECD: 05/29/18 11:57 STATUS: JOSE REMauricio #: [id number] CYN: 05/29/18 08:[address]: Darrian Carter DEPT: SURGICAL PATHOLOGY RECD BY: Brandyn Ann ENTERED: 05/29/18 13:36 SP TYPE: KAITLYNN HOWELL DR: Dr. Kieran Beard MD Tissues: A - Esophagus, NOS B - COLON BIOPSY Procedures: Special Stain Group I Surgery Specimen Level IV GMS Stain (control) HEADER OPERATION: Colonoscopy, EGD ([facility] [place]) PRE-OP DIAGNOSIS: Dysphagia, diarrhea TISSUE SUBMITTED: A - Distal esophagus, B - Random colon biopsy MICROSCOPIC DIAGNOSIS A. Distal esophagus, biopsy: Acute esophagitis with early granulation and reactive epithelial changes. Negative for fungal organism. B. Colon, random biopsy: No pathologic diagnosis. AM:kimberly 05/30/18 COMMENT A. GMS stain with matched control was used in the evaluation of this case. MICROSCOPIC DESCRIPTION Slides are reviewed. GROSS DESCRIPTION A - Received in fixative is one container labeled with the patient's name and designated distal esophagus biopsy. The specimen consists of multiple irregular fragments of light eason soft tissue that in aggregate measure 0.5 x 0.2 x 0.1 cm. The specimen is totally submitted in one cassette. B - Received in fixative is one container labeled with the patient's name and designated random colon biopsy. The specimen consists of multiple irregular fragments of light eason soft tissue that in aggregate measure 2.2 x 0.6 x 0.1 cm. The specimen is totally submitted in one cassette. / SJ:kimberly 05/29/18 TC:2 CPT: 43827 x2, 34974
[2018-05-29 09:11] VITALS: BP 142/77; BP 159/86; PULSE 88; RESP 16; TEMP 36.5; O2SAT 100
--- NOTE | 2018-05-29 09:13 | OP.ENDO_ITS ---
Patient Name: Spenser Fontaine Procedure Date: 05/29/2018 8:22 AM Date of : 1960 Age: 57 Procedure: Upper GI endoscopy Indications: Dysphagia Providers: Darrian Carter MD Referring MD: Darrian Carter MD Medicines: See the Anesthesia note for documentation of the administered medications Patient Profile: He is status post laparoscopic gastric bypass. Patient has symptoms of chronic dysphagia. Complications: No immediate complications. Procedure: Pre-Anesthesia Assessment: - Prior to the procedure, a History and Physical was performed, and patient medications and allergies were reviewed. The patient's tolerance of previous anesthesia was also reviewed. The risks and benefits of the procedure and the sedation options and risks were discussed with the patient. All questions were answered, and informed consent was obtained. Prior Anticoagulants: The patient has taken no previous anticoagulant or antiplatelet agents. ASA Grade Assessment: III - A patient with severe systemic disease. After reviewing the risks and benefits, the patient was deemed in satisfactory condition to undergo the procedure. After obtaining informed consent, the endoscope was passed under direct vision. Throughout the procedure, the patient's blood pressure, pulse, and oxygen saturations were monitored continuously. The gastroscope was introduced through the mouth, and advanced to the efferent jejunal loop. The upper GI endoscopy was accomplished without difficulty. The patient tolerated the procedure well. Scope In: 8:32:27 AM Scope Out: 8:40:37 AM Total Procedure Duration Time 0 hours 8 minutes 10 seconds Findings: One benign-appearing, intrinsic stenosis was found 40 cm from the incisors. This stenosis was moderately severe and. The stenosis was traversed. A TTS dilator was passed through the scope. Dilation with a 15-16.5-18 mm balloon dilator was performed to 18 mm. The dilation site was examined and showed moderate improvement in luminal narrowing. Estimated blood loss was minimal. LA Grade B (one or more mucosal breaks greater than 5 mm, not extending between the tops of two mucosal folds) esophagitis with no bleeding was found 40 cm from the incisors. Biopsies were taken with a cold forceps for histology. Diffuse mild inflammation was found in the stomach. Biopsies were taken with a cold forceps for histology. The examined jejunum was normal. Impression: - Benign-appearing esophageal stenosis. Dilated to 18mm - LA Grade B reflux esophagitis. Biopsied. 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 Biopsied. - Normal examined jejunum of monster limb Recommendation: - Resume previous diet. - Use Prilosec (omeprazole) 40 mg PO daily. - Resume previous diet. - Repeat upper endoscopy in 5 years for surveillance. - Telephone my office for pathology results in 1 week. - Continue present medications. Procedure Code(s): --- Professional --- 66865, Esophagogastroduodenoscopy, flexible, transoral; with transendoscopic balloon dilation of esophagus (less than 30 mm diameter) 73692, 59, Esophagogastroduodenoscopy, flexible, transoral; with biopsy, single or multiple CPT copyright 2017 [employer]. All rights reserved. The codes documented in this report are preliminary and upon weigher and grader review may be revised to meet current compliance requirements. Darrian Carter MD 05/29/2018 9:12:53 AM This report has been signed electronically. Number of Addenda: 0 Note Initiated On: 05/29/2018 8:22 AM
[2018-05-29 09:15] VITALS: BP 159/86; BP 164/85; PULSE 74; RESP 16; O2SAT 99
--- NOTE | 2018-05-29 09:16 | OP.ENDO_ITS ---
Patient Name: Spenser Fontiane Procedure Date: 05/29/2018 8:42 AM Date of : 1960 Age: 57 Procedure: Colonoscopy Indications: Screening for colorectal malignant neoplasm Providers: Darrian Carter MD Referring MD: Darrian Carter MD Medicines: See the Anesthesia note for documentation of the administered medications Patient Profile: He is status post laparoscopic gastric bypass. Patient has symptoms of chronic dysphagia. Last Colonoscopy: none. The patient's first colonoscopy is today. Complications: No immediate complications. Procedure: Pre-Anesthesia Assessment: - Prior to the procedure, a History and Physical was performed, and patient medications and allergies were reviewed. The patient's tolerance of previous anesthesia was also reviewed. The risks and benefits of the procedure and the sedation options and risks were discussed with the patient. All questions were answered, and informed consent was obtained. Prior Anticoagulants: The patient has taken no previous anticoagulant or antiplatelet agents. ASA Grade Assessment: III - A patient with severe systemic disease. After reviewing the risks and benefits, the patient was deemed in satisfactory condition to undergo the procedure. After I obtained informed consent, the scope was passed under direct vision. Throughout the procedure, the patient's blood pressure, pulse, and oxygen saturations were monitored continuously. The adult colonoscope was introduced through the anus and advanced to the cecum, identified by appendiceal orifice and ileocecal valve. The colonoscopy was performed with difficulty due to a redundant colon. Successful completion of the procedure was aided by applying abdominal pressure. The patient tolerated the procedure well. The quality of the bowel preparation was good. Scope In: 8:43:51 AM Scope Withdrawal Time 0 hours 6 minutes 39 seconds Scope Out: 9:02:30 AM Total Procedure Duration Time 0 hours 18 minutes 39 seconds Findings: The digital rectal exam findings include non-thrombosed external hemorrhoids, non-thrombosed internal hemorrhoids and internal hemorrhoids that prolapse with straining, but spontaneously regress to the resting position (Grade II). Pertinent negatives include normal prostate (size, shape, and consistency). Multiple diverticula were found in the sigmoid colon and descending colon. Biopsies for histology were taken with a cold forceps from the entire colon for evaluation of microscopic colitis. The exam was otherwise without abnormality. Impression: - Non-thrombosed external hemorrhoids, non-thrombosed internal hemorrhoids and internal hemorrhoids that prolapse with straining, but spontaneously regress to the resting position (Grade II) found on digital rectal exam. - Diverticulosis in the sigmoid colon and in the descending colon. Biopsied. - The examination was otherwise normal. Recommendation: - Discharge patient to home. - Resume previous diet. - Continue present medications. - Repeat colonoscopy in 10 years for screening purposes. - Telephone my office for pathology results in 1 week. Procedure Code(s): --- Professional --- 84217, Colonoscopy, flexible; with biopsy, single or multiple Diagnosis Code(s): --- Professional --- Z12.11, Encounter for screening for malignant neoplasm of colon K64.1, Second degree hemorrhoids K64.4, Residual hemorrhoidal skin tags K57.30, Diverticulosis of large intestine without perforation or abscess without bleeding CPT copyright 2017 [employer]. All rights reserved. The codes documented in this report are preliminary and upon foundry supervisor review may be revised to meet current compliance requirements. Darrian Carter MD 05/29/2018 9:16:09 AM This report has been signed electronically. Number of Addenda: 0 Note Initiated On: 05/29/2018 8:42 AM
[2018-05-29 09:21] VITALS: BP 159/86; BP 165/75; PULSE 81; RESP 16; O2SAT 98
[2018-05-29 09:23] VITALS: BP 159/86; BP 167/88; PULSE 74; RESP 16; TEMP 36.3; O2SAT 99
[2018-05-29 09:53] VITALS: BP 159/86
== END 2018-05-29 10:18 | disposition home or self-care (01) ==
LOC: EN 07:20 → AC 07:22
PROVIDERS: Family Provider Family Medicine; PCP Family Medicine; Referring Provider Surgery; Visit Provider Surgery
PROC: 0DJD8ZZ Inspection of Lower Intestinal Tract, Via Natural or Artificial Opening Endoscopic (ICD-10-PCS; CPT 45378; principal; 2018-05-29 08:25)
DX: Z12.11 Encounter for screening for malignant neoplasm of colon (principal); K29.50 Unspecified chronic gastritis without bleeding; K22.2 Esophageal obstruction; K21.0 Gastro-esophageal reflux disease with esophagitis; R13.10 Dysphagia, unspecified; R19.7 Diarrhea, unspecified; K64.1 Second degree hemorrhoids; Q43.8 Other specified congenital malformations of intestine; M79.7 Fibromyalgia; G89.29 Other chronic pain; I87.2 Venous insufficiency (chronic) (peripheral); I10 Essential (primary) hypertension; D64.9 Anemia, unspecified; N40.0 Benign prostatic hyperplasia without lower urinary tract symptoms; G62.9 Polyneuropathy, unspecified; E53.9 Vitamin B deficiency, unspecified; E58 Dietary calcium deficiency; F32.9 Major depressive disorder, single episode, unspecified; F41.9 Anxiety disorder, unspecified; F43.10 Post-traumatic stress disorder, unspecified; F98.8 Other specified behavioral and emotional disorders with onset usually occurring in childhood and adolescence; E66.01 Morbid (severe) obesity due to excess calories; Z68.43 Body mass index [BMI] 50.0-59.9, adult; Z79.899 Other long term (current) drug therapy; Z98.84 Bariatric surgery status; Z87.891 Personal history of nicotine dependence
CPT/HCPCS: 43239; 43249; 45380; 88305; 88312; J7120

== ENCOUNTER 2018-09-14 11:46 | Inpatient (IN) | payer MEDICAID, SELFPAY ==
[2018-09-14] VITALS (7 sets, daily range): BP systolic 113–133; BP diastolic 61–82; PULSE 63–74; RESP 16–18; TEMP 36.1–37; O2SAT 97–99; BMI 55.2
--- NOTE | 2018-09-14 12:32 | RAD_ITS ---
STUDY: X-RAY - LEFT FEMUR REASON FOR STUDY: Male, 58 years old. Pain and bruising following a fall. TECHNIQUE: 2 view(s) of the femur. COMPARISON: None. FINDINGS: Normal visualized femur. Normal visualized soft tissue structure. Nondisplaced fracture involving the proximal fibula. RAD/Femur Min 2 Views IMPRESSION: Nondisplaced oblique fracture of the proximal fibula. Electronically Signed: Cole Hopper MD at 14:07 EST , Service support ,
--- NOTE | 2018-09-14 12:32 | RAD_ITS ---
STUDY: X-RAY - LEFT HIP REASON FOR EXAM: Male, 58 years old. Pain and bruising overlying the left side of the pelvis following recent falls. TECHNIQUE: 4 views of the hip. COMPARISON: None. FINDINGS: Normal femoral head, neck, intertrochanteric region and visualized proximal femur. Normal acetabulum. There is mild articular joint space narrowing. Normal visualized superior and inferior pubic rami and ischial tuberosities. Degenerative changes in the visualized lower lumbar spine. RAD/HIP, UNI W/ Pelvis 2-3 Views IMPRESSION: Degenerative changes of the hip. Disc space narrowing in the lower lumbar spine. Electronically Signed: Cole Hopper MD at 14:06 EST , Service support ,
--- NOTE | 2018-09-14 12:33 | RAD_ITS ---
STUDY: X-RAY - LEFT FOOT CLINICAL: Male, 58 years old. Lateral foot pain following recent falls. TECHNIQUE: 3 view(s) of the foot. COMPARISON: None. FINDINGS: There is a plantar calcaneal spur. Normal visualized subtalar, talonavicular, calcaneocuboid, tarsal and tarsometatarsal articulations. Normal metatarsi. Normal metatarsophalangeal joint of the great toe. Normal tibial and fibular sesamoid bones. Normal interphalangeal joint of the great toe. Normal phalanges of the great toe. Normal second through fifth metatarsophalangeal joints. Normal interphalangeal joints and phalanges of the lesser toes. Soft tissue swelling. RAD/Foot min 3 Views IMPRESSION: Plantar spur. Soft tissue swelling. Electronically Signed: Cole Hopper MD at 14:09 EST , Service support ,
--- NOTE | 2018-09-14 12:33 | RAD_ITS ---
STUDY: X-RAY - LEFT TIBIA AND FIBULA REASON FOR EXAM: Male, 58 years old. Pain following recent falls. TECHNIQUE: 2 view(s) and 4 images of the tibia and fibula were obtained. COMPARISON: None. FINDINGS: Normal visualized tibia. There is a nondisplaced oblique fracture of the proximal fibular shaft. Soft tissue swelling. RAD/Tibia & Fibula 2 Views IMPRESSION: Nondisplaced oblique fracture of the proximal fibular shaft. Electronically Signed: Cole Hopper MD at 14:07 EST , Service support ,
[2018-09-14] MEDS: HYDROcodone Bitartrate/Apap 5/325 Tablet PO (13:39)
--- NOTE | 2018-09-14 14:49 | RAD_ITS ---
STUDY: X-RAY - LEFT ANKLE REASON FOR EXAM: Male, 58 years old. Injury TECHNIQUE: 3 view(s) of the ankle. COMPARISON: None. FINDINGS: There is a healing fracture of the left distal fibula which appears subacute in nature. The remainder of the visualized osseous structures are intact. There are no radiodense foreign bodies. RAD/Ankle min 3 Views IMPRESSION: Healing fracture of the left distal fibula which appear subacute in nature. Electronically Signed: Jaden Banegas, at 15:21 EST Tel , Service support ,
[2018-09-14 15:34] LABS: Absolute Lymphocyte Count 1.39 X10^3/ul (0.83-4.51); Absolute Neutrophil Count 3.6 X10^3/uL (2.0-7.7); Basophil# 0.02 X10^3/uL; Basophil% 0.3 % (0-1); Eosinophil# 0.29 X10^3/uL; Hematocrit 38.9 % (40-54); Hemoglobin 13.7 g/dl (13.0-16.5); Lymphocyte # 1.39 X10^3/ul (4.0); Lymphocyte % 23.8 % (19-41); Mean Corp Hgb Conc 35.2 g/gl (32-36); Mean Corpuscular Hgb 33.6 pg (27.0-32.0); Mean Corpuscular Volume 95.3 fL (80-94); Mean Platelet Vol. 9.3 fl (6.2-12.0); Monocyte# 0.54 X10^3/uL; Monocyte% 9.2 % (0-10); Neutrophil # 3.59 X10^3/uL (2.7-7.7); Neutrophil % 61.5 % (47-70); Platelet Count 252 K/mm3 (150-450); RBC Distribution Width CV 12.7 % (11.6-14.6); RBC Distribution Width SD 42.9 fl (35.1-43.9); Red Blood Count 4.08 M/mm3 (4.6-6.2); White Blood Count 5.8 K/mm3 (4.4-11.0)
[2018-09-14 15:39] LABS: Anion Gap 8 (5-15); BUN 10 mg/dL (7-18); BUN/Creat Ratio 13.8 RATIO (10-20); Chloride 92 mmol/L (98-107); Creatinine, Serum 0.72 mg/dL (0.70-1.30); EST Glomerular Filtration Rate 119 mL/min (>60); Est Glom Filt Rate - Afr Amer 144 mL/min (>60); Estimated Creatinine Clearance 131.61 ml/min; Glucose 98 mg/dL (74-106); Sodium Level 128 mmol/L (136-145)
[2018-09-14 15:57] LABS: POSITIVE COUNT NO; POSITIVE DIFFERENTIAL NO; POSITIVE MORPHOLOGY NO
--- NOTE | 2018-09-14 15:57 | ED.DCSUM_ITS ---
- ER Visit Summary Date of Service: 09/14/18 Chief Complaint: Left leg pain History of Present Illness: The patient is a 58 M who presents for multiple falls in the past 1-2 weeks. He states some falls were on ice and some were from vertigo. He also has chronic neuropathy and has a right foot drop. Roxann de leon is complaining of pain throughout his left leg, but worse along the lateral acid of the lower leg. He states he is tried using a walker at home even and is still having difficulty getting around. It is prudent that as the patient was being evaluated bedbugs were noted. Physical Examination: Vital signs unremarkable. Patient is lying in bed no acute distress. Head neck examination was no sign of trauma. Heart is regular rate and rhythm. Lung sounds are clear. Abdomen is soft, obese, nontender. Lower extreme examination reveals diffuse tenderness throughout the left thigh, lateral lower leg. He does have some edema and tenderness noted at the ankle, worse along the lateral aspect. He has strong distal pulses. Test Results: Pelvis and left hip x-rays reveal degenerative changes of the hip. Left femur x-ray reveals a nondisplaced oblique fracture of the proximal fibula. Left tib-fib fracture shows nondisplaced oblique fracture proximal fi bula. Left foot x-ray shows plantar spur with soft tissue swelling. Emergency Department Course and Treatment: It was noted on the fibula films that there was what appeared to be a healing fracture in the distal fibula as well. I spoke with Dr. Raymundo, on-call for orthopedics. He requested separate ankle x-rays. This reveals healing fracture of the left distal fibula that appears subacute. At this time patient should be nonweightbearing due to both proximal and distal left fibula fractures. He is not going to be able to get around at home with this as he is already trying to use a walker. I spoke with social work. Patient has care source and will require overnight observation and preauthorization for placement. CBC and chemistry studies are obtained and are similar of 128. Patient was given [place] for pain. Left lower leg is placed in a posterior splint. Orthopedics advised that Dr. Kemp could be consulted if the patient needs to be seen in the hospital. Treatment Plan: [] Disposition: Admit Impression: 1. Multiple falls 2. Left fibular fractures, multiple states of healing 3. Bedbugs This note was generated with [employer] dictation software. It may contain incorrect words, spelling, and punctuation that were not noted in review of the chart prior to signing ED Disposition - Plan for ED Patient: Chief Complaint: Lower Extremity Injury Referrals: Kieran Beard MD [Primary Care Provider] -
--- NOTE | 2018-09-14 16:30 | CM.ED ---
Social Work Assessment Referral Date: 09/14/18 Date of Assessment: 09/14/18 Informant: PATIENT Reason for Consult: SNF PLACEMENT Information obtained from: PATIENT Living Arrangements: PT LIVES IN A 2 STORY RENTED HOME WITH 4 STEPS TO ENTER. PT REPORTS HOME DOES HAVE 1ST FLOOR SET UP. LAUNDRY IS IN BASEMENT. 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 PT STATES RECEIVES $755 DOLLARS FROM [employer]. Supports: PT STATES LIMITED SUPPORT FROM FAMILY AND ROOMMATE. PT STATES FOLLOWS WITH THE [facility] AND THEY ARE IN THE PROCESS OF SETTING UP A CRISIS TEAM FOR PT TO ASSIST WITH NEEDS. Social/Family Stressors: PT STATES FINANCIAL AND EMOTIONAL STRESS HE HAS BEEN HAVING FREQUENT FALLS (4 IN THE LAST 5 DAYS) AND BEING UNABLE TO CARE FOR SELF. PT STATES ROOMMATE IS AN ALCOHOLIC AND DOES NOT ASSIST PT. PT STATES HOME HAS BEEN INFESTED WITH BED BUGS AND THEY HAVE BEEN TRYING TO GET RID OF THEM FOR OVER A YEAR. PT ALSO REPORTS IS BEING EVICTED FROM THE HOME [facility] IS WANTING TO SELL THE HOME. Mental Health History: PT ADMITS TO HX OF MENTAL HEALTH. PT STATES LONG LIST OF DX INCLUDING PTSD, ADHD, DEPRESSION AND ANXIETY. PT STATES IS PRESCRIBED KLONOPIN AND ZOLOFT. PT FOLLOWS WITH THE COUNSELING CENTER. PT DENIES ANY RECENT SUICIDAL IDEATION BUT ADMITS GOING TO SLEEP AT NIGHT AND SOMETIMES WISHING HE WOULD NOT WAKE UP. PT STATES HAS A STRONG SARAH AND WHEN HE WAKES UP IN THE MORNING HE KNOWS HE IS NOT MEANT TO BE ?SENT HOME? YET. Substance Abuse History: PT ADMITS TO HX OF MARIJUANA AND IS A SOCIAL ALCOHOL DRINKER. PT DENIES ANY CURRENT USE. Interventions: REFERRAL TO BE MADE TO [facility]. Assessment: PT IS A 58 Y/O MALE WHO PRESENTS TO ED AFTER FALL AND LEFT LEG PAIN. PT STATES HAD FALLEN 14X LAST YEAR AND HAS HAD 4 FALLS IN THE LAST 5 DAYS. PT IS NO LONGER ABLE TO CARE FOR HIMSELF IN THE HOME AND IS SCARED TO RETURN HOME WITHOUT REHAB. PT IS NORMALLY ABLE TO AMBULATE SHORT DISTANCES WITH A WALKER AND CANE, HOWEVER, HAS BEEN UNABLE TO SAFELY AMBULATE IN THE HOME WITH A WALKER AT THIS TIME D/T BOXES ON THE FLOOR THEY ARE IN THE PROCESS OF PACKING. PT REPORTS IS BEING EVICTED FROM THE HOME [facility] IS WANTING TO SELL THE HOME. PT ADMITS TO HX OF BED BUGS OVER THE LAST YEAR AND HAS BEEN UNABLE TO GET RID OF THEM. DISCUSSED SAFE D/C PLANNING WITH PT AND PT FEELS WOULD BENEFIT FROM SNF. PT REQUESTING REFERRAL TO [facility]. THIS WORKER TO MAKE REFERRAL. PT HAS [employer] AND WILL NEED TO OBTAIN INSURANCE AUTH PRIOR TO D/C. DR. WIN UPDATED ON THIS WORKERS ASSESSMENT AND PT?S NEEDS. PLAN: ADMIT, REFERRAL TO SNF.
[2018-09-14] MEDS: Ondansetron 4 MG/2 ML Vial IV (16:57)
[2018-09-14] MEDS: Morphine 4 MG/ML Syringe IV (16:57)
--- NOTE | 2018-09-14 17:00 | CM.ED ---
SOCIAL WORK NOTE REFERRAL FAXED AND CALLED TO MARCOS AT [facility]. INFORMED OF BARIATRIC PT WITH HX OF BED BUGS. MARCOS TO REVIEW REFERRAL AND GET BACK TO THIS WORKER.
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
--- NOTE | 2018-09-14 17:59 | CM.ED ---
SOCIAL WORK NOTE RECEIVED CALL BACK FROM MARCOS WITH [facility]. PER MARCOS, SHOULD BE ABLE TO ACCOMMODATE PT. REQUESTING MORE INFORMATION. REQUESTED CLINICAL INFORMATION FAXED TO MARCOS AT THIS TIME. JACKELYN ALATORRE, DIRECTOR OF ROTC, FOOD PROCESSING CHEMIST.
[2018-09-14] MEDS: Docusate Sodium 100 MG Capsule PO (20:59)
[2018-09-14] MEDS: Sertraline 100 MG Tablet PO (20:59)
[2018-09-14] MEDS: Gabapentin 300 MG Capsule PO (20:59)
[2018-09-14] MEDS: oxyCODONE 5 MG Tablet PO (20:59)
[2018-09-14] MEDS: Metoprolol Tartrate 50 MG Tablet PO (20:59)
[2018-09-14] MEDS: Acetaminophen 325 MG Tablet 650 MG PO (21:00)
[2018-09-14] MEDS: Baclofen 10 MG Tablet PO (21:01)
[2018-09-14] MEDS: Dicyclomine 10 MG Capsule PO (21:01)
[2018-09-14] MEDS: clonazePAM 1 MG Tablet PO (21:01)
[2018-09-14] MEDS: 0.9% Normal Saline 1,000 ML 75 ML IV (21:01)
[2018-09-14 23:04] LABS: Color, Urine Yellow (Yellow); Glucose, Dipstick Normal (Normal); Ketone-Dipstick Negative (Negative); Leukocyte Esterase-Dipstick 100 /ul (Negative); Mucous, Urine 0 SEEN /hpf (<or=2+); Nitrite-Dipstick Positive (Negative); Occult Blood-Urine Negative /ul (Negative); Protein-Dipstick Negative (Negative); Red Blood Cells-Urine 0 SEEN /hpf (0-5); Specific Gravity, Urine 1.005 (1.002-1.030); Urine Bilirubin Dipstick Negative (Negative); Urine Clarity Sl. Cloudy (Clear); Urine Urobilinogen Normal (Normal)
[2018-09-14 23:11] LABS: Urine Sodium 45 mmol/L (Not Establ.)
[2018-09-14 23:12] LABS: Urine Chloride 35 mmol/L (Not Establ.)
[2018-09-14 23:30] LABS: Squamous Epithelial Cells - UA 0-5 SEEN /hpf (0-5); White Blood Cells 5-10 SEEN /hpf (0-5)
[2018-09-14 23:31] LABS: Bacteria RARE /hpf (None Seen)
[2018-09-15] VITALS (8 sets, daily range): BP systolic 112–133; BP diastolic 57–75; PULSE 64–78; RESP 16–20; TEMP 36.5–37; O2SAT 93–97
[2018-09-15] MEDS: oxyCODONE 5 MG Tablet PO ×2 (00:35→06:43)
[2018-09-15] MEDS: Acetaminophen 325 MG Tablet 650 MG PO (03:38)
--- NOTE | 2018-09-15 05:25 | PCM.HOSP.N ---
Hospitalist Note On follow-up the labs, UA is positive of pyuria, 5?10 cells, nitrite positive, LE 800, RBC 0, bacteria rare. On further history, patient has burning micturition, increased in frequency and urgency and sometimes retention for about 1 month. He has history of BPH but not on any medication. Started on IV ceftriaxone. Urine culture requested on the same UA sample. Flomax was started. Clinical information/sign out communicated to nursing staff and hospitalist colleague Laboratory Results 09/14/18 15:17: WBC 5.8, RBC 4.08 L, Hgb 13.7, Hct 38.9 L, MCV 95.3 H, MCH 33.6 H, MCHC 35.2, RDW 12.7, RDW Differential 42.9, Plt Count 252, MPV 9.3, Immature Gran % (Auto) 0.200, Neut % (Auto) 61.5, Lymph % (Auto) 23.8, [place] % (Auto) 9.2, Eos % (Auto) 5.0, Baso % (Auto) 0.3, Absolute Neuts (auto) 3.6, Absolute Lymphs (auto) 1.39, Total Counted Not Reportable 09/14/18 15:17: Sodium 128 L, Potassium 4.0, Chloride 92 L, Carbon Dioxide 28.0, Anion Gap 8, BUN 10, Creatinine 0.72, Estim Creat Clear Calc 131.61, Est GFR (MDRD) Af Amer 144, Est GFR (MDRD) Non-Af 119, BUN/Creatinine Ratio 13.8, Glucose 98, Calcium 8.0 L 09/14/18 21:30: Urine Creatinine 22.40 09/14/18 21:30: Urine Color Yellow, Urine Clarity Sl. Cloudy, Urine pH 7.0, Ur Specific [place] 1.005, Urine Protein Negative, Urine Glucose (UA) Normal, Urine Ketones Negative, Urine Occult Blood Negative, Urine Nitrite Positive H, Urine Bilirubin Negative, Urine Urobilinogen Normal, Ur Leukocyte Esterase 100 H, Urine RBC 0 SEEN, Urine WBC 5-10 SEEN, Ur Squamous Epith Cells 0-5 SEEN, Urine Bacteria RARE, Urine Mucus 0 SEEN 09/14/18 21:30: Urine Chloride 35 09/14/18 21:30: Urine Potassium 14.0 09/14/18 21:30: Ur Random Sodium 45
--- NOTE | 2018-09-15 05:29 | CCHN_ITS ---
Hospitalist Note On follow-up the labs, UA is positive of pyuria, 5?10 cells, nitrite positive, LE 800, RBC 0, bacteria rare. On further history, patient has burning micturition, increased in frequency and urgency and sometimes retention for about 1 month. He has history of BPH but not on any medication. Started on IV ceftriaxone. Urine culture requested on the same UA sample. Flomax was started. Clinical information/sign out communicated to nursing staff and hospitalist colleague Laboratory Results 09/14/18 15:17: WBC 5.8, RBC 4.08 L, Hgb 13.7, Hct 38.9 L, MCV 95.3 H, MCH 33.6 H, MCHC 35.2, RDW 12.7, RDW Differential 42.9, Plt Count 252, MPV 9.3, Immature Gran % (Auto) 0.200, Neut % (Auto) 61.5, Lymph % (Auto) 23.8, [place] % (Auto) 9.2, Eos % (Auto) 5.0, Baso % (Auto) 0.3, Absolute Neuts (auto) 3.6, Absolute Lymphs (auto) 1.39, Total Counted Not Reportable 09/14/18 15:17: Sodium 128 L, Potassium 4.0, Chloride 92 L, Carbon Dioxide 28.0, Anion Gap 8, BUN 10, Creatinine 0.72, Estim Creat Clear Calc 131.61, Est GFR (MDRD) Af Amer 144, Est GFR (MDRD) Non-Af 119, BUN/Creatinine Ratio 13.8, Glucose 98, Calcium 8.0 L 09/14/18 21:30: Urine Creatinine 22.40 09/14/18 21:30: Urine Color Yellow, Urine Clarity Sl. Cloudy, Urine pH 7.0, Ur Specific [place] 1.005, Urine Protein Negative, Urine Glucose (UA) Normal, Urine Ketones Negative, Urine Occult Blood Negative, Urine Nitrite Positive H, Urine Bilirubin Negative, Urine Urobilinogen Normal, Ur Leukocyte Esterase 100 H, Urine RBC 0 SEEN, Urine WBC 5-10 SEEN, Ur Squamous Epith Cells 0-5 SEEN, Urine Bacteria RARE, Urine Mucus 0 SEEN 09/14/18 21:30: Urine Chloride 35 09/14/18 21:30: Urine Potassium 14.0 09/14/18 21:30: Ur Random Sodium 45
--- NOTE | 2018-09-15 05:31 | US_ITS ---
STUDY: RENAL ULTRASOUND - COMPLETE REASON FOR EXAM: Male, 58 years old. UTI, BPH TECHNIQUE: Ultrasound evaluation of the kidneys was performed with real-time and static wan-scale imaging. COMPARISON: None. FINDINGS: RIGHT KIDNEY: Normal location of the right kidney, which is normal in size. The right kidney measures 12.7 x 6.0 x 5.9 cm. There is a normal cortex of the right kidney. The renal cortex measures 1.7 cm. There is no right renal mass or cyst. There are no right renal calculi. There is no right hydronephrosis. DISTAL RIGHT URETER: There is non-visualization of the distal right ureter. There is no demonstrated right ureterovesical junction calculus. There is a visualized right ureteral jet. LEFT KIDNEY: Normal location of the left kidney, which is normal in size. The left kidney measures 13.4 x 6.4 x 6.7 cm. There is a normal cortex of the left kidney. The renal cortex measures 2.2 cm. There is no left renal mass or cyst. There are no left renal calculi. There is no left hydronephrosis. DISTAL LEFT URETER: There is non-visualization of the distal left ureter. There is no demonstrated left ureterovesical junction calculus. There is a visualized left ureteral jet. BLADDER: The distended urinary bladder has a volume of 360 ml. There is a normal wall thickness of the distended urinary bladder. There is no demonstrated mass within the urinary bladder. There are no demonstrated bladder calculi. US/Kidney and Bladder IMPRESSION: No hydronephrosis. Electronically Signed: Sulaiman Manzanares MD at 10:58 EST , Service support ,
[2018-09-15] MEDS: Ceftriaxone 1 GM/50 ML BAG IV ×2 (06:43→21:18)
[2018-09-15 07:26] LABS: Anion Gap 10 (5-15); BUN 11 mg/dL (7-18); BUN/Creat Ratio 14.8 RATIO (10-20); Calcium,Total 7.7 mg/dL (8.5-10.1); Chloride 96 mmol/L (98-107); Creatinine, Serum 0.74 mg/dL (0.70-1.30); EST Glomerular Filtration Rate 115 mL/min (>60); Est Glom Filt Rate - Afr Amer 140 mL/min (>60); Estimated Creatinine Clearance 128.05 ml/min; Glucose 110 mg/dL (74-106); Sodium Level 133 mmol/L (136-145)
[2018-09-15] MEDS: Gabapentin 300 MG Capsule PO ×3 (08:28→17:40)
[2018-09-15] MEDS: Enoxaparin 40 MG/0.4 ML Syringe SC (08:28)
[2018-09-15] MEDS: Dicyclomine 10 MG Capsule PO ×3 (08:29→17:40)
[2018-09-15] MEDS: Pantoprazole Sodium 40 MG Tablet PO (08:29)
[2018-09-15] MEDS: Lisinopril 20 MG Tablet PO (08:29)
[2018-09-15] MEDS: Docusate Sodium 100 MG Capsule PO ×2 (08:29→21:08)
[2018-09-15] MEDS: hydroCHLOROthiazide 25 MG Tablet PO (08:29)
[2018-09-15] MEDS: Baclofen 10 MG Tablet PO ×2 (08:30→21:09)
[2018-09-15] MEDS: Metoprolol Tartrate 50 MG Tablet PO ×2 (08:30→21:08)
[2018-09-15] MEDS: Ferrous Sulfate 325 MG Tablet PO (08:30)
[2018-09-15] MEDS: Furosemide 40 MG Tablet PO (08:30)
[2018-09-15] MEDS: clonazePAM 1 MG Tablet PO ×2 (08:30→21:08)
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
--- NOTE | 2018-09-15 08:32 | PN_ITS ---
Code Visit Inpatient E&M: 00106 Subs Hosp L2
--- NOTE | 2018-09-15 08:32 | PCM.PN.BLA ---
Code Visit Inpatient E&M: 47406 Subs Hosp L2
[2018-09-15] MEDS: oxyCODONE 5 MG Tablet 10 MG PO ×2 (12:40→18:43)
[2018-09-15] MEDS: Morphine 2 MG/ML Syringe IV ×3 (12:41→21:09)
--- NOTE | 2018-09-15 13:04 | PN_ITS ---
Progress Note X-rays reviewed with ED physician. Fractures stable. recommended non weight bearing in well padded splint and follow up in office with Dr Kemp at [facility] [place] in one week. [phone]. ED physician said she would have pt in splint. SAW [phone]
--- NOTE | 2018-09-15 13:30 | CASEMGMT ---
Social Work MS3 Referral: ED SW initiated SNF placement for patient from the ED. Chart reviewed, noted from ED SW notes that patient with a socially complex home situation, also noted referral in place to [place] and from documentation it appears that [place] may be able to accept patient. Noted that PT and OT not yet ordered for patient. Conferred with RN SHEILA who obtained order for therapy evaluations. Plan: Social work to follow, including collaboration with [place] to see if able to accept for sure and if so fax clinicals to that precert can be obtained. -ROSI Angulo, AUDIO VIDEO MECHANIC
[2018-09-15] MEDS: Acetaminophen 500 MG Tablet 1000 MG PO ×2 (17:41→21:08)
[2018-09-15] MEDS: Tamsulosin HCl 0.4 MG Capsule PO (17:41)
[2018-09-15] MEDS: Albuterol 2.5 MG/3 ML VIAL.NEB. INHALATION (19:00)
[2018-09-15] MEDS: Sertraline 100 MG Tablet PO (21:09)
[2018-09-15] MEDS: MELATONIN 3 MG TABLET PO (21:18)
[2018-09-16] VITALS (8 sets, daily range): BP systolic 106–127; BP diastolic 52–67; PULSE 61–84; RESP 16–20; TEMP 36.5–37.1; O2SAT 94–99
[2018-09-16] MEDS: Morphine 2 MG/ML Syringe IV ×4 (04:16→22:08)
[2018-09-16] MEDS: Acetaminophen 500 MG Tablet 1000 MG PO ×3 (05:53→22:04)
--- NOTE | 2018-09-16 07:25 | NURSING ---
Eyes closed. Respirations WNL no distress.
[2018-09-16] MEDS: Furosemide 40 MG Tablet PO (09:00)
[2018-09-16] MEDS: Baclofen 10 MG Tablet PO ×2 (09:00→22:03)
[2018-09-16] MEDS: Gabapentin 300 MG Capsule PO ×3 (09:00→18:08)
[2018-09-16] MEDS: Docusate Sodium 100 MG Capsule PO ×2 (09:00→22:03)
[2018-09-16] MEDS: Ferrous Sulfate 325 MG Tablet PO (09:00)
[2018-09-16] MEDS: clonazePAM 1 MG Tablet PO ×2 (09:00→22:04)
[2018-09-16] MEDS: Metoprolol Tartrate 50 MG Tablet PO ×2 (09:00→22:03)
[2018-09-16] MEDS: 0.9% NaCl Peripheral Flush Adult/Peds IV ×2 (09:00→18:12)
[2018-09-16] MEDS: Pantoprazole Sodium 40 MG Tablet PO (09:00)
[2018-09-16] MEDS: Lisinopril 20 MG Tablet PO (09:00)
[2018-09-16] MEDS: Enoxaparin 40 MG/0.4 ML Syringe SC (09:00)
[2018-09-16] MEDS: Dicyclomine 10 MG Capsule PO ×3 (09:00→18:07)
[2018-09-16] MEDS: hydroCHLOROthiazide 25 MG Tablet PO (09:00)
[2018-09-16] MEDS: oxyCODONE 5 MG Tablet 10 MG PO ×2 (09:10→18:09)
[2018-09-16] MEDS: Albuterol 2.5 MG/3 ML VIAL.NEB. INHALATION (11:05)
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
[2018-09-16] MEDS: Tamsulosin HCl 0.4 MG Capsule PO (18:11)
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
[2018-09-16] MEDS: MELATONIN 3 MG TABLET PO (22:03)
[2018-09-16] MEDS: Ceftriaxone 1 GM/50 ML BAG IV (22:04)
[2018-09-16] MEDS: Sertraline 100 MG Tablet PO (22:08)
[2018-09-16] MEDS: Nystatin Powder 15gm Bottle 1 APPLIC TOPICAL (22:09)
[2018-09-17] VITALS (7 sets, daily range): BP systolic 111–128; BP diastolic 60–87; PULSE 62–76; RESP 16–18; TEMP 36.3–37; O2SAT 94–97
[2018-09-17] MEDS: oxyCODONE 5 MG Tablet 10 MG PO ×4 (00:24→23:00)
[2018-09-17] MEDS: Acetaminophen 500 MG Tablet 1000 MG PO ×3 (05:41→22:27)
[2018-09-17 06:19] LABS: Absolute Lymphocyte Count 1.12 X10^3/ul (0.83-4.51); Absolute Neutrophil Count 3.1 X10^3/uL (2.0-7.7); Basophil# 0.01 X10^3/uL; Basophil% 0.2 % (0-1); Eosinophil# 0.21 X10^3/uL; Eosinophils% 4.4 % (0-5); Hematocrit 38.3 % (40-54); Lymphocyte # 1.12 X10^3/ul (4.0); Lymphocyte % 23.3 % (19-41); Mean Corp Hgb Conc 33.9 g/gl (32-36); Mean Corpuscular Volume 100.3 fL (80-94); Mean Platelet Vol. 9.2 fl (6.2-12.0); Monocyte# 0.33 X10^3/uL; Monocyte% 6.9 % (0-10); Neutrophil # 3.12 X10^3/uL (2.7-7.7); Neutrophil % 64.8 % (47-70); POSITIVE COUNT NO; POSITIVE DIFFERENTIAL NO; POSITIVE MORPHOLOGY NO; Platelet Count 190 K/mm3 (150-450); RBC Distribution Width CV 13.6 % (11.6-14.6); RBC Distribution Width SD 48.4 fl (35.1-43.9); Red Blood Count 3.82 M/mm3 (4.6-6.2); White Blood Count 4.8 K/mm3 (4.4-11.0)
[2018-09-17 06:25] LABS: Anion Gap 7 (5-15); BUN 17 mg/dL (7-18); Calcium,Total 8.2 mg/dL (8.5-10.1); Chloride 100 mmol/L (98-107); Creatinine, Serum 0.74 mg/dL (0.70-1.30); EST Glomerular Filtration Rate 116 mL/min (>60); Est Glom Filt Rate - Afr Amer 140 mL/min (>60); Estimated Creatinine Clearance 128.05 ml/min; Glucose 111 mg/dL (74-106); Potassium 4.6 mmol/L (3.5-5.1); Sodium Level 138 mmol/L (136-145)
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
--- NOTE | 2018-09-17 09:16 | CT_ITS ---
STUDY: CT LOWER EXTREMITY WITHOUT CONTRAST LEFT REASON FOR EXAM: Male, 58 years old. Left fibula fracture. RADIATION DOSAGE (If Supplied By Facility): CTDIvol = ( 8.41 ) mGy, DLP = ( 278.35 ) mGycm. Individualized dose optimization techniques were used for this CT.? TECHNIQUE: Axial images were obtained from the distal tibia through the hindfoot without contrast. Coronal and sagittal reformats were performed. COMPARISON: X-ray 09/14/2018. FINDINGS: Reformats were not obtained orthogonally to the patient's ankle and are suboptimal. There is a subacute to chronic fracture of the distal fibula with moderate periosteal reaction. Fracture margins are indistinct and partially sclerotic, consistent with subacute fracture. Union is incomplete, greater distally. There is no additional fracture. There is no acute fracture. There is narrowing of the posterior tibiotalar joint with mild degenerative changes consistent with chronic process. There is mild anterior spurring of the tibiotalar joint. Phleboliths are present in the soft tissues. There is no demonstrated mass or collection. CT/Extremity Lower without Contra IMPRESSION: Subacute to chronic fracture of the distal fibula. Electronically Signed: Jaleesa Muro MD at 17:07 EST Tel , Service support ,
--- NOTE | 2018-09-17 09:47 | CASEMGMT ---
Addendum entered by Paty Galindo 09/17/18 12:02: SW received fax from [facility] stating they are unable to accept pt. Per previous notes, pt's second choice is [facility]. CAMILLA faxed referral to [facility] and placed a call to Thalia at [facility] in regards to referral. Original Note: Social Work Note CAMILLA faxed updated clinicals to [facility]. CAMILLA spoke with Sil. Sil states she is in morning meeting at this time to discuss pt to determine if they are able to accommodate pt. Sil states she will call this worker back. CAMILLA waiting for call back. Plan: SNF pending acceptance and pre-cert Paty Galindo NEON TECHNICIAN, LEASE ADMINISTRATION ANALYST
[2018-09-17] MEDS: hydroCHLOROthiazide 25 MG Tablet PO (10:39)
[2018-09-17] MEDS: Gabapentin 300 MG Capsule PO ×3 (10:39→12:36)
[2018-09-17] MEDS: Baclofen 10 MG Tablet PO ×2 (10:39→22:24)
[2018-09-17] MEDS: clonazePAM 1 MG Tablet PO ×2 (10:39→22:24)
[2018-09-17] MEDS: Docusate Sodium 100 MG Capsule PO ×2 (10:39→22:24)
[2018-09-17] MEDS: Lisinopril 20 MG Tablet PO (10:39)
[2018-09-17] MEDS: Dicyclomine 10 MG Capsule PO ×3 (10:39→17:05)
[2018-09-17] MEDS: Furosemide 40 MG Tablet PO (10:39)
[2018-09-17] MEDS: Enoxaparin 40 MG/0.4 ML Syringe SC (10:39)
[2018-09-17] MEDS: Metoprolol Tartrate 50 MG Tablet PO ×2 (10:39→22:26)
[2018-09-17] MEDS: Ferrous Sulfate 325 MG Tablet PO (10:39)
[2018-09-17] MEDS: Pantoprazole Sodium 40 MG Tablet PO (10:39)
[2018-09-17] MEDS: Nystatin Powder 15gm Bottle 1 APPLIC TOPICAL ×2 (12:13→22:24)
--- NOTE | 2018-09-17 13:41 | CASEMGMT ---
Addendum entered by Paty Galindo 09/17/18 14:11: CAMILLA faxed PT/OT to [facility] Original Note: Social Work Note SW received message from Thalia at [facility] stating DON is reviewing referral and she will let this worker know if they are able to accept pt. Plan: [facility] pending acceptance and pre-cert Paty Galindo TRANSISTOR TESTER, EVP OF PRODUCTS & CO FOUNDER
--- NOTE | 2018-09-17 14:37 | CASEMGMT ---
Social Work Note SW spoke with Thalia at [facility] stating she is able to accept pt and has submitted for pre-cert. Plan: [facility] pending pre-cert Paty Galindo PUMP SERVICE SUPERVISOR, METAL MACHINE SETTER
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
[2018-09-17] MEDS: Tamsulosin HCl 0.4 MG Capsule PO (17:06)
[2018-09-17] MEDS: Ceftriaxone 1 GM/50 ML BAG IV (22:24)
[2018-09-17] MEDS: MELATONIN 3 MG TABLET PO (22:27)
[2018-09-17] MEDS: Sertraline 100 MG Tablet PO (22:28)
[2018-09-18] VITALS (8 sets, daily range): BP systolic 109–116; BP diastolic 63–73; PULSE 57–77; RESP 16–18; TEMP 36.3–37.1; O2SAT 93–97
[2018-09-18] MEDS: oxyCODONE 5 MG Tablet 10 MG PO ×3 (05:02→20:14)
[2018-09-18] MEDS: Acetaminophen 500 MG Tablet 1000 MG PO ×3 (05:03→22:31)
[2018-09-18] MEDS: Dicyclomine 10 MG Capsule PO ×3 (09:39→16:10)
[2018-09-18] MEDS: Ferrous Sulfate 325 MG Tablet PO (09:39)
[2018-09-18] MEDS: clonazePAM 1 MG Tablet PO ×2 (09:45→22:27)
[2018-09-18] MEDS: fentaNYL 25 MCG Patch TRANSDERM. (09:45)
[2018-09-18] MEDS: Metoprolol Tartrate 50 MG Tablet PO ×2 (09:46→22:27)
[2018-09-18] MEDS: Baclofen 10 MG Tablet PO ×2 (09:46→22:30)
[2018-09-18] MEDS: Furosemide 40 MG Tablet PO (09:46)
[2018-09-18] MEDS: Enoxaparin 40 MG/0.4 ML Syringe SC (09:47)
[2018-09-18] MEDS: Nystatin Powder 15gm Bottle 1 APPLIC TOPICAL ×2 (09:48→22:30)
[2018-09-18] MEDS: Pantoprazole Sodium 40 MG Tablet PO (09:50)
[2018-09-18] MEDS: Lisinopril 20 MG Tablet PO (09:50)
--- NOTE | 2018-09-18 11:46 | CASEMGMT ---
Addendum entered by Paty Galindo 09/18/18 13:48: Per physician, pt is not medically cleared for discharge today. Thalia at [facility] updated. Original Note: Social Work Note SW received message from Thalia at [facility] stating she received pre-cert and pt is able to admit today. Physician updated. Plan: [facility] once medically cleared Paty Galindo EYEWEAR MANUFACTURING SUPERVISOR, SENIOR TECHNICAL SUPPORT ENGINEER
[2018-09-18] MEDS: Gabapentin 300 MG Capsule PO (13:55)
[2018-09-18] MEDS: Tamsulosin HCl 0.4 MG Capsule PO (16:09)
--- NOTE | 2018-09-18 21:32 | PCM.PROGNOTE ---
Patient Problems: Active and Suspected Problems (Last Updated 09/14/18 @ 16:58 by Alexei Alarcon MD) Left fibular fracture (Acute) acute proximal fibula and subacute distal left fibula Hyponatremia (Acute) likely due to HCTZ Subjective: Patient is a 58-year-old male with a past medical history of chronic pain syndrome, BPH, ADD, Malik-en-Y gastric bypass, neuropathy, depression, hypertension and fibromyalgia who presented to the emergency department at [facility] on 09/14/2018 because of frequent falls and left leg pain. He tells me that he had been diagnosed with DARLIN in the past but after the gastric bypass he lost 400 lbs and a repeat sleep[ study did not show DARLIN. His weight has been the same basically since 2012. He stated he had fallen 5 times over the preceding 7 days. Blood work in the emergency department was significant for a sodium of 128 present was otherwise unremarkable. An x-ray of the left leg showed a nondisplaced oblique fracture of the proximal fibula. X-ray of the left foot showed a plantar spur and soft tissue swelling with no fracture. X-ray of the left ankle revealed a healing fracture of the left distal fibula which appeared to be subacute. He was admitted to the hospital for pain control and placement for chcf. Dr. Raymundo/Dr. Kemp was consulted to participate in management. All events of the past 24 hours have been reviewed. He is afebrile with stable vital signs. Hyponatremia has resolved and the serum sodium on 09/17/2018 was 138. Adamant D level is pending. UA showed 5-10 white blood cells per high-power field and the culture grew greater than 100,000 E. coli however the patient has been afebrile since admission with a normal white blood cell count and is asymptomatic. He tells me today that his pain is not adequately controlled and the medication wears off very quickly. Upon review of Dr. Galan's note from 09/16 he stated his pain was controlled. Objective: PHYSICAL EXAM: GENERAL: alert, oriented X 3, Cooperative, NAD....he was sleeping when I entered the room and was very difficult to arouse and when he did wake up he was initially slow to answer questions. ORAL: moist mucosa, no mucosal lesions NECK: No JVD, supple, trachea midline LUNGS: CTA, diminished, symmetric chest expansion HEART: RRR, Normal S1 and S2, no rub, no gallop, no murmurs ABDOMEN: soft, NT, ND, BS present, no guarding with palpation, obese EXTREMITIES: edema of the LLE, no cyanosis, no calf tenderness, posterior splint is in place SKIN: No rashes, no breakdown NEUROLOGIC: no focal neurologic deficits PSYCH: appropriate, normal affect, pleasant - Physical Exam Vital Signs Temp Pulse Resp BP Pulse Ox 98.6 F 76 16 110/69 93 09/18/18 19:54 09/18/18 19:54 09/18/18 19:54 09/18/18 19:54 09/18/18 19:54 Oxygen Delivery Method Room Air Weight: 430 lb 0.01 oz Body Mass Index (BMI) 55.2 Intake and Output for Last 24 Hours 09/16/18 09/17/18 09/18/18 23:59 23:59 23:59 Intake Total 2662 / 2662 2500 / 2500 650 / 650 Output Total 3700 / 3700 3700 / 3700 1675 / 1675 Balance -1038 / -1038 -1200 / -1200 -1025 / -1025 Microbiology Past 72 Hours 09/14/18 21:30 Urine Culture - Final Urine, Clean Catch Escherichia coli Medical Necessity - Tobacco Use Smoking Status: Former smoker Assessment/Plan All Active Problems (Last Updated 09/14/18 @ 16:58 by Alexei Alarcon MD) Left fibular fracture (Acute) Hyponatremia (Acute) Impressions 1. Acute proximal left fibular fracture secondary to fall 2. Subacute fracture of the distal left fibula secondary to fall 3. Super morbid obesity 4. History of DARLIN 5. Fibromyalgia 6. Chronic pain syndrome 7. Bone natremia-resolved. Likely secondary to hydrochlorothiazide Try a Fentanyl patch 25mcg for pain control.......he may not be absorbing the oral medications well due to the hx of the gastric bypass and short gut Plan on DC to SNF with continued non-weight bearing status. No plan for surgery at this time Will follow up with Dr. Kemp in 1 week at [facility] office Place on a calorie controlled diet and discussed need for weight loss - I reviewed the precision millwright's note and 2200 calories will be prescribed for him DC to SNF tomorrow - can further adjust pain medications as needed at the SNF I suspect he still has DARLIN and this may contribute to falls and daytime somnulence Will order an overnight trending pulse ox Code Visit Inpatient E&M: 18716 Subs Hosp L2
--- NOTE | 2018-09-18 21:40 | PN_ITS ---
Patient Problems: Active and Suspected Problems (Last Updated 09/14/18 @ 16:58 by Alexei Alarcon MD) Left fibular fracture (Acute) acute proximal fibula and subacute distal left fibula Hyponatremia (Acute) likely due to HCTZ Subjective: Patient is a 58-year-old male with a past medical history of chronic pain syndrome, BPH, ADD, Malik-en-Y gastric bypass, neuropathy, depression, hypertension and fibromyalgia who presented to the emergency department at [facility] on 09/14/2018 because of frequent falls and left leg pain. He tells me that he had been diagnosed with DARLIN in the past but after the gastric bypass he lost 400 lbs and a repeat sleep[ study did not show DARLIN. His weight has been the same basically since 2012. He stated he had fallen 5 times over the preceding 7 days. Blood work in the emergency department was significant for a sodium of 128 present was otherwise unremarkable. An x-ray of the left leg showed a nondisplaced oblique fracture of the proximal fibula. X- ray of the left foot showed a plantar spur and soft tissue swelling with no fracture. X-ray of the left ankle revealed a healing fracture of the left distal fibula which appeared to be subacute. He was admitted to the hospital for pain control and placement for custodial. Dr. Raymundo/Dr. Kemp was consulted to participate in management. All events of the past 24 hours have been reviewed. He is afebrile with stable vital signs. Hyponatremia has resolved and the serum sodium on 09/17/2018 was 138. Adamant D level is pending. UA showed 5-10 white blood cells per high-power field and the culture grew greater than 100,000 E. coli however the patient has been afebrile since admission with a normal white blood cell count and is asymptomatic. He tells me today that his pain is not adequately controlled and the medication wears off very quickly. Upon review of Dr. Galan's note from 09/16 he stated his pain was controlled. Objective: PHYSICAL EXAM: GENERAL: alert, oriented X 3, Cooperative, NAD....he was sleeping when I entered the room and was very difficult to arouse and when he did wake up he was initially slow to answer questions. ORAL: moist mucosa, no mucosal lesions NECK: No JVD, supple, trachea midline LUNGS: CTA, diminished, symmetric chest expansion HEART: RRR, Normal S1 and S2, no rub, no gallop, no murmurs ABDOMEN: soft, NT, ND, BS present, no guarding with palpation, obese EXTREMITIES: edema of the LLE, no cyanosis, no calf tenderness, posterior splint is in place SKIN: No rashes, no breakdown NEUROLOGIC: no focal neurologic deficits PSYCH: appropriate, normal affect, pleasant - Physical Exam Vital Signs Temp Pulse Resp BP Pulse Ox 98.6 F 76 16 110/69 93 09/18/18 19:54 09/18/18 19:54 09/18/18 19:54 09/18/18 19:54 09/18/18 19:54 Oxygen Delivery Method Room Air Weight: 430 lb 0.01 oz Body Mass Index (BMI) 55.2 Intake and Output for Last 24 Hours 09/16/18 09/17/18 09/18/18 23:59 23:59 23:59 Intake Total 2662 / 2662 2500 / 2500 650 / 650 Output Total 3700 / 3700 3700 / 3700 1675 / 1675 Balance -1038 / -1038 -1200 / -1200 -1025 / -1025 Microbiology Past 72 Hours 09/14/18 21:30 Urine Culture - Final Urine, Clean Catch Escherichia coli Medical Necessity - Tobacco Use Smoking Status: Former smoker Assessment/Plan All Active Problems (Last Updated 09/14/18 @ 16:58 by Alexei Alarcon MD) Left fibular fracture (Acute) Hyponatremia (Acute) Impressions 1. Acute proximal left fibular fracture secondary to fall 2. Subacute fracture of the distal left fibula secondary to fall 3. Super morbid obesity 4. History of DARLIN 5. Fibromyalgia 6. Chronic pain syndrome 7. Bone natremia-resolved. Likely secondary to hydrochlorothiazide Try a Fentanyl patch 25mcg for pain control.......he may not be absorbing the oral medications well due to the hx of the gastric bypass and short gut Plan on DC to SNF with continued non-weight bearing status. No plan for surgery at this time Will follow up with Dr. Kemp in 1 week at [facility] office Place on a calorie controlled diet and discussed need for weight loss - I reviewed the lease out man's note and 2200 calories will be prescribed for him DC to SNF tomorrow - can further adjust pain medications as needed at the SNF I suspect he still has DARLIN and this may contribute to falls and daytime somnulence Will order an overnight trending pulse ox Code Visit Inpatient E&M: 28279 Subs Hosp L2
[2018-09-18] MEDS: Sertraline 100 MG Tablet PO (22:29)
[2018-09-18] MEDS: Gabapentin 600 MG Tablet PO (22:29)
[2018-09-19 02:00] VITALS: BP 114/72; PULSE 65; RESP 16; TEMP 36.6; O2SAT 95
[2018-09-19] MEDS: oxyCODONE 5 MG Tablet 10 MG PO ×2 (02:13→09:29)
[2018-09-19] MEDS: Acetaminophen 500 MG Tablet 1000 MG PO (06:32)
[2018-09-19] MEDS: Gabapentin 300 MG Capsule PO (06:33)
--- NOTE | 2018-09-19 08:10 | PCM.TXEXTCAR ---
- Diet 09/18/18 08:52 Diet: Calorie Controlled Is pt able to select menu?: Yes Diet Comments: no salt restriction but, continue with low fat diet How many daily calories?: 1999 calorie - Routine Orders/Code Status Enema Type: Fleetz Enema Frequency: Daily PRN Suppository Type: Dulcolax 10mg Suppository Frequency: Daily PRN O2 Liters per Minute: 2 O2 Frequency: While sleeping Keep PO Greater than or Equal to (%): 89 Routine Lab Work: - - 1 weekCBC, BMP, Mag in 1 week - Wound(s) lt leg Wound Type: lt ankel fx - Proximal and distal fibula rt le Wound Type: scattered scratches Lt inner thigh Wound Type: Pressure Injury Lt great toe-posterior Wound Type: Pressure Injury - Therapies Weight Bearing: Non weight bearing Extremity Affected:: Left Lower Physical Therapy: Eval and Treat Occupational Therapy: Eval and Treat - Problem/Diagnosis (1) Left fibular fracture Status: Acute Comment: acute proximal fibula and subacute distal left fibula Current Visit: Yes (2) Hyponatremia Status: Acute Comment: likely due to HCTZ Current Visit: Yes (3) ADD (attention deficit disorder) Status: Chronic Current Visit: No (4) BPH (benign prostatic hyperplasia) Status: Chronic Current Visit: No (5) Calcium deficiency Status: Chronic Current Visit: No (6) Chronic pain Status: Chronic Current Visit: No (7) Depression Status: Chronic Current Visit: No (8) Fibromyalgia Status: Chronic Current Visit: No (9) H/O gastric bypass Status: Chronic Current Visit: No (10) HTN (hypertension) Status: Chronic Current Visit: No (11) Morbid obesity Status: Chronic Current Visit: No (12) Neuropathy Status: Chronic Current Visit: No (13) Rheumatic fever Status: Chronic Current Visit: No (14) Vitamin B12 deficiency Status: Chronic Current Visit: No - Allergies/Procedures Done in Hospital Allergies/Adverse Reactions: Allergies duloxetine [From Cymbalta] Adverse Reaction (Verified 09/14/18 11:47) Other SERATONIN SYNDROME - Type of Care/Length of Stay Estimated LOS: More Than 30 Days Type of Care Needed: Skilled Rehab Potential: Fair Prognosis: Fair - Additional Orders/Day of Discharge H&P will serve as current which was dated: 09/14/18 Day of Discharge: 09/19/18 - Follow Up Care Primary Care Physician: Kieran Beard MD [Primary Care Provider] - Please follow up with your Primary Care Physician in: following DC from SNF Please Follow Up With: Jessica Kemp DPM When: 1 week
--- NOTE | 2018-09-19 08:19 | PCM.DC.SUM ---
Discharge Date and Diagnosis - Problem List Patient Problems: Active and Suspected Problems (Last Updated 09/14/18 @ 16:58 by Alexei Alarcon MD) Left fibular fracture (Acute) acute proximal fibula and subacute distal left fibula Hyponatremia (Acute) likely due to HCTZ Date of Admission: 09/14/18 Date of Discharge: 09/19/18 - Primary Discharge Diagnosis Active and Suspected Problems (Last Updated 09/14/18 @ 16:58 by Alexei Alarcon MD) Left fibular fracture (Acute) acute proximal fibula and subacute distal left fibula Hyponatremia (Acute) likely due to HCTZ - Secondary Discharge Diagnosis Chronic Problems (Last Updated 09/14/18 @ 16:58 by Alexei Alarcon MD) Rheumatic fever (Chronic) Morbid obesity (Chronic) Chronic pain (Chronic) BPH (benign prostatic hyperplasia) (Chronic) ADD (attention deficit disorder) (Chronic) H/O gastric bypass (Chronic) Neuropathy (Chronic) Depression (Chronic) HTN (hypertension) (Chronic) Calcium deficiency (Chronic) Vitamin B12 deficiency (Chronic) Fibromyalgia (Chronic) Hospital Course and Treatment Imaging Results: Clinical Impression(s) from Imaging Studies Femur X-Ray 09/14/18 12:32 IMPRESSION: Nondisplaced oblique fracture of the proximal fibula. Electronically Signed: Cole Hopper MD at 14:07 EST , Service support , Hip/Pelvis X-Ray 09/14/18 12:32 IMPRESSION: Degenerative changes of the hip. Disc space narrowing in the lower lumbar spine. Electronically Signed: Cole Hopper MD at 14:06 EST , Service support , Foot X-Ray 09/14/18 12:33 IMPRESSION: Plantar spur. Soft tissue swelling. Electronically Signed: Cole Hopper MD at 14:09 EST , Service support , Tibia/Fibula X-Ray 09/14/18 12:33 IMPRESSION: Nondisplaced oblique fracture of the proximal fibular shaft. Electronically Signed: Cole Hopper MD at 14:07 EST , Service support , Ankle X-Ray 09/14/18 14:49 IMPRESSION: Healing fracture of the left distal fibula which appear subacute in nature. Electronically Signed: Jaden Banegas at 15:21 EST Tel , Service support , Renal Ultrasound 09/15/18 05:31 IMPRESSION: No hydronephrosis. Electronically Signed: Sulaiman Manzanares MD at 10:58 EST , Service support , Lower Extremity CT 09/17/18 09:16 IMPRESSION: Subacute to chronic fracture of the distal fibula. Electronically Signed: Jaleesa Muro MD at 17:07 EST Tel , Service support , Active Medications Generic Name Dose Route Start Last Admin Trade Name Freq PRN Reason Stop Dose Admin Acetaminophen 1,000 mg 09/15/18 14:00 09/19/18 06:32 Tylenol PO 1,000 mg TID ISMA Administration Albuterol Sulfate 2.5 mg 09/14/18 18:06 09/16/18 11:05 Ventolin Aerosols INHALATION 2.5 mg Q4H PRN PRN Administration Shortness of breath, wheezing Baclofen 10 mg 09/14/18 22:00 09/18/18 22:30 Lioresal PO 10 mg BID ISMA Administration Clonazepam 1 mg 09/14/18 22:00 09/18/18 22:27 Klonopin PO 1 mg BID ISMA Administration Dicyclomine HCl 10 mg 09/14/18 19:00 09/18/18 16:10 Bentyl PO 10 mg TIDCM ISMA Administration Emollient Ointment 1 applic 09/16/18 13:05 09/16/18 18:09 Eucerin Intensive Repair TOPICAL 1 applicatio 4X/DAY PRN PRN Administration NOT SPECIFIED Protocol Enoxaparin Sodium 40 mg 09/15/18 10:00 09/18/18 09:47 Lovenox SC 40 mg DAILY ISMA Administration Fentanyl 25 mcg 09/18/18 10:00 09/18/18 09:45 Duragesic Patch TRANSDERM. 25 mcg Q3D ISMA Administration Ferrous Sulfate 325 mg 09/15/18 08:00 09/18/18 09:39 Ferrous Sulfate PO 325 mg DAILY@0800 ISMA Administration Furosemide 40 mg 09/15/18 10:00 09/18/18 09:46 Lasix PO 40 mg DAILY ISMA Administration Gabapentin 600 mg 09/18/18 22:00 09/18/18 22:29 Neurontin PO 600 mg QHS ISMA Administration Gabapentin 300 mg 09/18/18 14:00 09/19/18 06:33 Neurontin PO 300 mg 0600,1400 ISMA Administration Sodium Chloride 250 mls @ 15 mls/hr 09/15/18 19:20 IV .[id number] PRN SALINE FLUSH Lisinopril 20 mg 09/15/18 10:00 09/18/18 09:50 Zestril PO 20 mg DAILY ISMA Administration Magnesium Hydroxide 30 ml 09/14/18 18:06 Milk Of Magnesia PO DAILY PRN PRN Constipation Meloxicam 7.5 mg 09/18/18 10:00 09/18/18 22:32 Mobic PO Not Given BID [facility] Metoprolol Tartrate 50 mg 09/14/18 22:00 09/18/18 22:27 Lopressor (Beta Remi) PO 50 mg BID ISMA Administration Nystatin 1 applic 09/16/18 22:00 09/18/18 22:30 Mycostatin Powder TOPICAL 1 applicatio BID ISMA Administration Protocol Ondansetron HCl 4 mg 09/14/18 18:06 Zofran IV Q6H PRN PRN NAUSEA/VOMITING Oxycodone HCl 10 mg 09/15/18 09:04 09/19/18 02:13 Oxyir PO 10 mg Q6H PRN PRN Administration SEVERE PAIN (6-10/10) Pantoprazole Sodium 40 mg 09/15/18 10:00 09/18/18 09:50 Protonix PO 40 mg DAILY ISMA Administration Polyethylene Glycol 17 gm 09/18/18 10:00 09/18/18 12:20 Miralax PO Not Given DAILY ISMA Sertraline HCl 100 mg 09/14/18 22:00 09/18/18 22:29 Zoloft PO 100 mg QHS ISMA Administration Sodium Chloride 5 - 15 ml 09/15/18 19:20 09/16/18 18:12 IV 10 ml UD PRN Administration SALINE FLUSH Tamsulosin HCl 0.4 mg 09/15/18 17:30 09/18/18 16:09 Flomax PO 0.4 mg DAILY@1730 ISMA Administration Microbiology 09/14/18 21:30 Urine, Clean Catch Urine Culture - Final Escherichia coli For Jaden Raymundo, Dr. Kemp-[facility] Operations: None Procedures: None Summary of Care Provided: The Patient is a 58-year-old male with a past medical history of chronic pain syndrome, BPH, ADD, Malik-en-Y gastric bypass, neuropathy, depression, hypertension, super morbid obesity and fibromyalgia who presented to the emergency department at [facility] on 09/14/2018 because of frequent falls and left leg pain. He tells me that he had been diagnosed with DARLIN in the past but after the gastric bypass he lost 400 lbs and a repeat sleep study did not show DARLIN. His weight has been the same basically since 2012. He stated he had fallen 5 times over the preceding 7 days. Blood work in the emergency department was significant for a sodium of 128 but BMP was otherwise unremarkable. An x-ray of the left leg showed a nondisplaced oblique fracture of the proximal fibula. X-ray of the left foot showed a plantar spur and soft tissue swelling with no fracture. CT scan of the left ankle revealed a healing fracture of the left distal fibula which appeared to be subacute. He was admitted to the hospital for pain control and placement for assisted. [facility] (Dr. Raymundo/Dr. Kemp) was consulted to participate in management. The decision was made to treat the patient conservatively with no surgery for now. Pain medication was adjusted to achieve good pain control. On the date of DC the pain is adequately controlled with a Fentanyl patch 25 mcg and PRN OXY IR 10 mg. A urine culture grew > 100,000 colonies of E. Coli but the patient was afebrile for the duration of the hospital stay, WBC was normal and he was asymptomatic so the Urine culture was thought to be contaminated and he was not treated with antibiotics. An overnight trending pulse ox was done and the sat dropped as low as 76%. He had 26 desaturation events > 3 minutes and 70 desaturation events < 30 minutes. I suggested he follow up with pulmonary medicine going forward to arrange a formal sleep study. He will be started on O2 at night and with naps. He was placed on a 2,000 calorie diet in attempt to promote weight loss. He also should have a DEXA in the future to assess for bone density(sonu with the hx of remote Malik-en-Y gastric bypass. A vitamin D level is pending at the time of DC. He has been started on a calcium/Vitamin D supplement. He will remain non-weight bearing on the LLE and will follow up with Dr. Kemp in the office in 1 week. PHYSICAL EXAM: GENERAL: alert, oriented X 3, Cooperative, NAD....he was sleeping when I entered the room and was very difficult to arouse and when he did wake up he was initially slow to answer questions. ORAL: moist mucosa, no mucosal lesions NECK: No JVD, supple, trachea midline LUNGS: CTA, diminished, symmetric chest expansion HEART: RRR, Normal S1 and S2, no rub, no gallop, no murmurs ABDOMEN: soft, NT, ND, BS present, no guarding with palpation, obese EXTREMITIES: edema of the LLE, no cyanosis, no calf tenderness, posterior splint is in place SKIN: No rashes, no breakdown NEUROLOGIC: no focal neurologic deficits PSYCH: appropriate, normal affect, pleasant This note was generated with [employer] dictation software. It may contain incorrect words, spelling, and punctuation that were not noted in checking the note before signing. Patient Problems: Active and Suspected Problems (Last Updated 09/14/18 @ 16:58 by Alexei Alarcon MD) Left fibular fracture (Acute) acute proximal fibula and subacute distal left fibula Hyponatremia (Acute) likely due to HCTZ - Physical Exam Vital Signs Temp Pulse Resp BP Pulse Ox 97.8 F 65 16 114/72 95 09/19/18 02:00 09/19/18 02:00 09/19/18 02:00 09/19/18 02:00 09/19/18 02:00 Oxygen Delivery Method Room Air Weight: 430 lb 0.01 oz Body Mass Index (BMI) 55.2 Intake and Output for Last 24 Hours 09/17/18 09/18/18 09/19/18 23:59 23:59 23:59 Intake Total 2500 / 2500 650 / 650 700 / 700 Output Total 3700 / 3700 1675 / 1675 Balance -1200 / -1200 -1025 / -1025 700 / 700 Microbiology Past 72 Hours 09/14/18 21:30 Urine Culture - Final Urine, Clean Catch Escherichia coli Home Medications: Medications to take at Discharge Lisinopril [Zestril] 20 mg PO DAILY 11/30/15 Albuterol Inhaler [Ventolin Hfa] 2 puff INHALATION Q6H PRN PRN 03/30/18 Baclofen [Lioresal] 10 mg PO BID 03/30/18 Clonazepam [Klonopin] 1 mg PO BID 03/30/18 Gabapentin [Neurontin] 300 mg PO TIDCM 03/30/18 Hydrochlorothiazide [Hctz] 25 mg PO DAILY 03/30/18 Metoprolol Tartrate [Lopressor (beta remi)] 50 mg PO BID 03/30/18 Sertraline HCl [Zoloft] 100 mg PO QHS 03/30/18 Cyanocobalamin [Vitamin B12] 1,000 mcg IM Q30D 05/28/18 Dicyclomine HCl 10 mg PO TIDCM 09/14/18 Ferrous Sulfate 325 mg PO DAILY@0800 09/14/18 Furosemide [Lasix] 40 mg PO DAILY 09/14/18 Omeprazole 40 mg PO DAILY 09/14/18 Acetaminophen [Tylenol] 1,000 mg PO TID tablet 09/19/18 Enoxaparin [Lovenox] 40 mg SC DAILY syringe 09/19/18 Magnesium Hydroxide [Milk Of Magnesia] 30 ml PO DAILY PRN PRN udc 09/19/18 Meloxicam [Mobic] 7.5 mg PO BID tablet 09/19/18 Nystatin Powder [Mycostatin Powder] 1 applic TOPICAL BID bottle 09/19/18 Oxycodone [Oxyir] 10 mg PO Q6H PRN PRN 7 Days #40 tab 09/19/18 Polyethylene Glycol 3350 [Miralax] 17 gm PO DAILY packet 09/19/18 Rivaroxaban [Xarelto] 10 mg PO DAILY #1 tablet 09/19/18 Tamsulosin HCl [Flomax] 0.4 mg PO DAILY@1730 capsule 09/19/18 fentaNYL patch [Duragesic patch] 25 mcg TRANSDERM. Q3D 21 Days #7 patch 09/19/18 Following Prescrptions Were Given to Patient: Oxycodone [Oxyir] 10 mg PO Q6H PRN PRN 7 Days #40 tab PRN Reason: Severe Pain (-05/30) fentaNYL patch [Duragesic patch] 25 mcg TRANSDERM. Q3D 21 Days #7 patch Rivaroxaban [Xarelto] 10 mg PO DAILY #1 tablet Primary Care Physician: Kieran Beard MD [Primary Care Provider] - Please follow up with your Primary Care Physician in: following DC from [facility] Please Follow Up With: Jessica eKmp DPM When: 1 week Pending Tests Upon Discharge: vitamin D level Disposition: Penitentiary facility - [facility] Minutes spent on discharge:: 40 Patient Condition:: Stable Medical Necessity - Tobacco Use Smoking Status: Former smoker Meaningful Use Info Meaningful Use Diagnoses (Choose all that apply): None applicable Code Visit Inpatient E&M: 29462 Disch Hosp
--- NOTE | 2018-09-19 08:24 | DS.PCM_ITS ---
Discharge Date and Diagnosis - Problem List Patient Problems: Active and Suspected Problems (Last Updated 09/14/18 @ 16:58 by Alexei Alarcon MD) Left fibular fracture (Acute) acute proximal fibula and subacute distal left fibula Hyponatremia (Acute) likely due to HCTZ Date of Admission: 09/14/18 Date of Discharge: 09/19/18 - Primary Discharge Diagnosis Active and Suspected Problems (Last Updated 09/14/18 @ 16:58 by Alexei Alarcon MD) Left fibular fracture (Acute) acute proximal fibula and subacute distal left fibula Hyponatremia (Acute) likely due to HCTZ - Secondary Discharge Diagnosis Chronic Problems (Last Updated 09/14/18 @ 16:58 by Alexei Alarcon MD) Rheumatic fever (Chronic) Morbid obesity (Chronic) Chronic pain (Chronic) BPH (benign prostatic hyperplasia) (Chronic) ADD (attention deficit disorder) (Chronic) H/O gastric bypass (Chronic) Neuropathy (Chronic) Depression (Chronic) HTN (hypertension) (Chronic) Calcium deficiency (Chronic) Vitamin B12 deficiency (Chronic) Fibromyalgia (Chronic) Hospital Course and Treatment Imaging Results: Clinical Impression(s) from Imaging Studies Femur X-Ray 09/14/18 12:32 IMPRESSION: Nondisplaced oblique fracture of the proximal fibula. Electronically Signed: Cole Hopper MD at 14:07 EST , Service support , Hip/Pelvis X-Ray 09/14/18 12:32 IMPRESSION: Degenerative changes of the hip. Disc space narrowing in the lower lumbar spine. Electronically Signed: Cole Hopper MD at 14:06 EST , Service support , Foot X-Ray 09/14/18 12:33 IMPRESSION: Plantar spur. Soft tissue swelling. Electronically Signed: Cole Hopper MD at 14:09 EST , Service support , Tibia/Fibula X-Ray 09/14/18 12:33 IMPRESSION: Nondisplaced oblique fracture of the proximal fibular shaft. Electronically Signed: Cole Hopper MD at 14:07 EST , Service support , Ankle X-Ray 09/14/18 14:49 IMPRESSION: Healing fracture of the left distal fibula which appear subacute in nature. Electronically Signed: Jaden Banegas at 15:21 EST Tel , Service support , Renal Ultrasound 09/15/18 05:31 IMPRESSION: No hydronephrosis. Electronically Signed: Sulaiman Manzanares MD at 10:58 EST , Service support , Lower Extremity CT 09/17/18 09:16 IMPRESSION: Subacute to chronic fracture of the distal fibula. Electronically Signed: Jaleesa Muro MD at 17:07 EST Tel , Service support , Active Medications Generic Name Dose Route Start Last Admin Trade Name Freq PRN Reason Stop Dose Admin Acetaminophen 1,000 mg 09/15/18 14:00 09/19/18 06:32 Tylenol PO 1,000 mg TID ISMA Administration Albuterol Sulfate 2.5 mg 09/14/18 18:06 09/16/18 11:05 Ventolin Aerosols INHALATION 2.5 mg Q4H PRN PRN Administration Shortness of breath, wheezing Baclofen 10 mg 09/14/18 22:00 09/18/18 22:30 Lioresal PO 10 mg BID ISMA Administration Clonazepam 1 mg 09/14/18 22:00 09/18/18 22:27 Klonopin PO 1 mg BID ISMA Administration Dicyclomine HCl 10 mg 09/14/18 19:00 09/18/18 16:10 Bentyl PO 10 mg TIDCM ISMA Administration Emollient Ointment 1 applic 09/16/18 13:05 09/16/18 18:09 Eucerin Intensive Repair TOPICAL 1 applicatio 4X/DAY PRN PRN Administration NOT SPECIFIED Protocol Enoxaparin Sodium 40 mg 09/15/18 10:00 09/18/18 09:47 Lovenox SC 40 mg DAILY ISMA Administration Fentanyl 25 mcg 09/18/18 10:00 09/18/18 09:45 Duragesic Patch TRANSDERM. 25 mcg Q3D ISMA Administration Ferrous Sulfate 325 mg 09/15/18 08:00 09/18/18 09:39 Ferrous Sulfate PO 325 mg DAILY@0800 ISMA Administration Furosemide 40 mg 09/15/18 10:00 09/18/18 09:46 Lasix PO 40 mg DAILY ISMA Administration Gabapentin 600 mg 09/18/18 22:00 09/18/18 22:29 Neurontin PO 600 mg QHS ISMA Administration Gabapentin 300 mg 09/18/18 14:00 09/19/18 06:33 Neurontin PO 300 mg 0600,1400 ISMA Administration Sodium Chloride 250 mls @ 15 mls/hr 09/15/18 19:20 IV .[id number] PRN SALINE FLUSH Lisinopril 20 mg 09/15/18 10:00 09/18/18 09:50 Zestril PO 20 mg DAILY ISMA Administration Magnesium Hydroxide 30 ml 09/14/18 18:06 Milk Of Magnesia PO DAILY PRN PRN Constipation Meloxicam 7.5 mg 09/18/18 10:00 09/18/18 22:32 Mobic PO Not Given BID [facility] Metoprolol Tartrate 50 mg 09/14/18 22:00 09/18/18 22:27 Lopressor (Beta Remi) PO 50 mg BID ISMA Administration Nystatin 1 applic 09/16/18 22:00 09/18/18 22:30 Mycostatin Powder TOPICAL 1 applicatio BID ISMA Administration Protocol Ondansetron HCl 4 mg 09/14/18 18:06 Zofran IV Q6H PRN PRN NAUSEA/VOMITING Oxycodone HCl 10 mg 09/15/18 09:04 09/19/18 02:13 Oxyir PO 10 mg Q6H PRN PRN Administration SEVERE PAIN (6-10/10) Pantoprazole Sodium 40 mg 09/15/18 10:00 09/18/18 09:50 Protonix PO 40 mg DAILY ISMA Administration Polyethylene Glycol 17 gm 09/18/18 10:00 09/18/18 12:20 Miralax PO Not Given DAILY ISMA Sertraline HCl 100 mg 09/14/18 22:00 09/18/18 22:29 Zoloft PO 100 mg QHS ISMA Administration Sodium Chloride 5 - 15 ml 09/15/18 19:20 09/16/18 18:12 IV 10 ml UD PRN Administration SALINE FLUSH Tamsulosin HCl 0.4 mg 09/15/18 17:30 09/18/18 16:09 Flomax PO 0.4 mg DAILY@1730 ISMA Administration Microbiology 09/14/18 21:30 Urine, Clean Catch Urine Culture - Final Escherichia coli For Jaden Raymundo, Dr. Kemp-[facility] Operations: None Procedures: None Summary of Care Provided: The Patient is a 58-year-old male with a past medical history of chronic pain syndrome, BPH, ADD, Malik-en-Y gastric bypass, neuropathy, depression, hypertension, super morbid obesity and fibromyalgia who presented to the emergency department at on 09/14/2018 because of frequent falls and left leg pain. He tells me that he had been diagnosed with DARLIN in the past but after the gastric bypass he lost 400 lbs and a repeat sleep study did not show DARLIN. His weight has been the same basically since 2012. He stated he had fallen 5 times over the preceding 7 days. Blood work in the emergency department was significant for a sodium of 128 but BMP was otherwise unremarkable. An x-ray of the left leg showed a nondisplaced oblique fracture of the proximal fibula. X-ray of the left foot showed a plantar spur and soft tissue swelling with no fracture. CT scan of the left ankle revealed a healing fracture of the left distal fibula which appeared to be subacute. He was admitted to the hospital for pain control and placement for group home. [facility] (Dr. Raymundo/Dr. Kemp) was consulted to participate in management. The decision was made to treat the patient conservatively with no surgery for now. Pain medication was adjusted to achieve good pain control. On the date of DC the pain is adequately controlled with a Fentanyl patch 25 mcg and PRN OXY IR 10 mg. A urine culture grew > 100,000 colonies of E. Coli but the patient was afebrile for the duration of the hospital stay, WBC was normal and he was asymptomatic so the Urine culture was thought to be contaminated and he was not treated with antibiotics. An overnight trending pulse ox was done and the sat dropped as low as 76%. He had 26 desaturation events > 3 minutes and 70 desaturation events < 30 minutes. I suggested he follow up with pulmonary medicine going forward to arrange a formal sleep study. He will be started on O2 at night and with naps. He was placed on a 2,000 calorie diet in attempt to promote weight loss. He also should have a DEXA in the future to assess for bone density(sonu with the hx of remote Malik-en-Y gastric bypass. A vitamin D level is pending at the time of DC. He has been started on a calcium/Vitamin D supplement. He will remain non-weight bearing on the LLE and will follow up with Dr. Kemp in the office in 1 week. PHYSICAL EXAM: GENERAL: alert, oriented X 3, Cooperative, NAD....he was sleeping when I entered the room and was very difficult to arouse and when he did wake up he was initially slow to answer questions. ORAL: moist mucosa, no mucosal lesions NECK: No JVD, supple, trachea midline LUNGS: CTA, diminished, symmetric chest expansion HEART: RRR, Normal S1 and S2, no rub, no gallop, no murmurs ABDOMEN: soft, NT, ND, BS present, no guarding with palpation, obese EXTREMITIES: edema of the LLE, no cyanosis, no calf tenderness, posterior splint is in place SKIN: No rashes, no breakdown NEUROLOGIC: no focal neurologic deficits PSYCH: appropriate, normal affect, pleasant This note was generated with VideoCare dictation software. It may contain incorrect words, spelling, and punctuation that were not noted in checking the note before signing. Patient Problems: Active and Suspected Problems (Last Updated 09/14/18 @ 16:58 by Alexei Alarcon MD) Left fibular fracture (Acute) acute proximal fibula and subacute distal left fibula Hyponatremia (Acute) likely due to HCTZ - Physical Exam Vital Signs Temp Pulse Resp BP Pulse Ox 97.8 F 65 16 114/72 95 09/19/18 02:00 09/19/18 02:00 09/19/18 02:00 09/19/18 02:00 09/19/18 02:00 Oxygen Delivery Method Room Air Weight: 430 lb 0.01 oz Body Mass Index (BMI) 55.2 Intake and Output for Last 24 Hours 09/17/18 09/18/18 09/19/18 23:59 23:59 23:59 Intake Total 2500 / 2500 650 / 650 700 / 700 Output Total 3700 / 3700 1675 / 1675 Balance -1200 / -1200 -1025 / -1025 700 / 700 Microbiology Past 72 Hours 09/14/18 21:30 Urine Culture - Final Urine, Clean Catch Escherichia coli Home Medications: Medications to take at Discharge Lisinopril [Zestril] 20 mg PO DAILY 11/30/15 Albuterol Inhaler [Ventolin Hfa] 2 puff INHALATION Q6H PRN PRN 03/30/18 Baclofen [Lioresal] 10 mg PO BID 03/30/18 Clonazepam [Klonopin] 1 mg PO BID 03/30/18 Gabapentin [Neurontin] 300 mg PO TIDCM 03/30/18 Hydrochlorothiazide [Hctz] 25 mg PO DAILY 03/30/18 Metoprolol Tartrate [Lopressor (beta remi)] 50 mg PO BID 03/30/18 Sertraline HCl [Zoloft] 100 mg PO QHS 03/30/18 Cyanocobalamin [Vitamin B12] 1,000 mcg IM Q30D 05/28/18 Dicyclomine HCl 10 mg PO TIDCM 09/14/18 Ferrous Sulfate 325 mg PO DAILY@0800 09/14/18 Furosemide [Lasix] 40 mg PO DAILY 09/14/18 Omeprazole 40 mg PO DAILY 09/14/18 Acetaminophen [Tylenol] 1,000 mg PO TID tablet 09/19/18 Enoxaparin [Lovenox] 40 mg SC DAILY syringe 09/19/18 Magnesium Hydroxide [Milk Of Magnesia] 30 ml PO DAILY PRN PRN udc 09/19/18 Meloxicam [Mobic] 7.5 mg PO BID tablet 09/19/18 Nystatin Powder [Mycostatin Powder] 1 applic TOPICAL BID bottle 09/19/18 Oxycodone [Oxyir] 10 mg PO Q6H PRN PRN 7 Days #40 tab 09/19/18 Polyethylene Glycol 3350 [Miralax] 17 gm PO DAILY packet 09/19/18 Rivaroxaban [Xarelto] 10 mg PO DAILY #1 tablet 09/19/18 Tamsulosin HCl [Flomax] 0.4 mg PO DAILY@1730 capsule 09/19/18 fentaNYL patch [Duragesic patch] 25 mcg TRANSDERM. Q3D 21 Days #7 patch 09/19/18 Following Prescrptions Were Given to Patient: Oxycodone [Oxyir] 10 mg PO Q6H PRN PRN 7 Days #40 tab PRN Reason: Severe Pain (-05/30) fentaNYL patch [Duragesic patch] 25 mcg TRANSDERM. Q3D 21 Days #7 patch Rivaroxaban [Xarelto] 10 mg PO DAILY #1 tablet Primary Care Physician: Kieran Beard MD [Primary Care Provider] - Please follow up with your Primary Care Physician in: following DC from [facility] Please Follow Up With: Jessica Kemp DPM When: 1 week Pending Tests Upon Discharge: vitamin D level Disposition: Longterm facility - [facility] Minutes spent on discharge:: 40 Patient Condition:: Stable Medical Necessity - Tobacco Use Smoking Status: Former smoker Meaningful Use Info Meaningful Use Diagnoses (Choose all that apply): None applicable Code Visit Inpatient E&M: 73671 Disch Hosp
[2018-09-19 09:24] VITALS: BP 114/66; PULSE 71; RESP 18; TEMP 36.8; O2SAT 96
--- NOTE | 2018-09-19 09:27 | CASEMGMT ---
Social Work Note Pt is being discharged today. CAMILLA faxed discharge paperwork to Thalia at [facility] including transfer to extended care facility, signed medication list and any scripts. Originals in SNF folder and copy on pt's chart. CAMILLA completed convalescent 7000 in [facility]. Original in SNF folder and copy on pt's chart. CAMILLA set up transportation through [facility] via cot for 11:30am. Transportation form in SNF folder and copy on pt's chart. CAMILLA updated charge nurse, RN, and pt of transportation time. CAMILLA placed a call to Thalia at [facility] and updated her on transportation time. Plan: Pt to discharge to [facility] skilled today at 11:30am with [employer] transporting via cot. Paty Galindo EQUITY RESEARCH ANALYST, SURFACE LAY OUT TECHNICIAN
[2018-09-19 09:29] VITALS: PULSE 71
[2018-09-19] MEDS: Metoprolol Tartrate 50 MG Tablet PO (09:29)
[2018-09-19] MEDS: clonazePAM 1 MG Tablet PO (09:29)
[2018-09-19] MEDS: Lisinopril 20 MG Tablet PO (09:30)
[2018-09-19] MEDS: Ferrous Sulfate 325 MG Tablet PO (09:30)
[2018-09-19] MEDS: Furosemide 40 MG Tablet PO (09:30)
[2018-09-19] MEDS: Baclofen 10 MG Tablet PO (09:30)
[2018-09-19] MEDS: Pantoprazole Sodium 40 MG Tablet PO (09:30)
[2018-09-19] MEDS: Dicyclomine 10 MG Capsule PO (09:30)
[2018-09-19] MEDS: Nystatin Powder 15gm Bottle 1 APPLIC TOPICAL (09:31)
[2018-09-19] MEDS: Enoxaparin 40 MG/0.4 ML Syringe SC (09:31)
[2018-09-19] MEDS: Meloxicam 7.5 MG Tablet PO (09:33)
--- NOTE | 2018-09-19 11:06 | NURSING ---
call placed to [facility] report given to nurse whom will be taking over care for this patient. pt scheduled to discharge around 1130
[2018-09-20 11:24] LABS: Vitamin D 1,25-Dihydroxy 9.8 pg/mL (19.9-79.3)
== END 2018-09-19 11:36 | disposition skilled nursing facility (03) | DRG 342 ==
LOC: ED 17:08 → MS3 17:43
PROVIDERS: Internal Medicine; Admitting Provider Hospitalist; Emergency Provider Emergency Medicine; Family Provider Family Medicine; PCP Family Medicine; Visit Provider Internal Medicine
DX: S82.435A Nondisplaced oblique fracture of shaft of left fibula, initial encounter for closed fracture (principal); W19.XXXA Unspecified fall, initial encounter; E87.1 Hypo-osmolality and hyponatremia; S82.832A Other fracture of upper and lower end of left fibula, initial encounter for closed fracture; T50.2X5A Adverse effect of carbonic-anhydrase inhibitors, benzothiadiazides and other diuretics, initial encounter; E66.01 Morbid (severe) obesity due to excess calories; Z68.43 Body mass index [BMI] 50.0-59.9, adult; M79.7 Fibromyalgia; R29.6 Repeated falls; G62.9 Polyneuropathy, unspecified; N40.0 Benign prostatic hyperplasia without lower urinary tract symptoms; I10 Essential (primary) hypertension; E58 Dietary calcium deficiency; E53.8 Deficiency of other specified B group vitamins; F32.9 Major depressive disorder, single episode, unspecified; F90.9 Attention-deficit hyperactivity disorder, unspecified type; Z86.79 Personal history of other diseases of the circulatory system; Z98.84 Bariatric surgery status; Z87.891 Personal history of nicotine dependence; T14.90XS Injury, unspecified, sequela; V89.2XXS Person injured in unspecified motor-vehicle accident, traffic, sequela; G89.4 Chronic pain syndrome
CPT/HCPCS: 36415; 73502; 73552; 73590; 73610; 73630; 73700; 76770; 80048; 81001; 82436; 82570; 82652; 84133; 84300; 85025; 87077; 87086; 87088; 87186; 94640; 94762; 97162; 97166; 97530; 97802; 99284; J7030; A4216; J2405

== ENCOUNTER → 2018-11-09 14:01 | Outpatient (CLI) | payer MEDICAID, SELFPAY ==
[2018-11-09 13:39] VITALS: BMI 55.2
[2018-11-09 14:53] LABS: Anion Gap 4 (5-15); BUN 31 mg/dL (7-18); BUN/Creat Ratio 29.8 RATIO (10-20); Calcium,Total 8.2 mg/dL (8.5-10.1); Chloride 103 mmol/L (98-107); Creatinine, Serum 1.04 mg/dL (0.70-1.30); EST Glomerular Filtration Rate 78 mL/min (>60); Est Glom Filt Rate - Afr Amer 95 mL/min (>60); Glucose 127 mg/dL (74-106); Potassium 4.4 mmol/L (3.5-5.1); Sodium Level 138 mmol/L (136-145)
== END ==
PROVIDERS: Family Provider Family Medicine; PCP Family Medicine; Referring Provider Surgery; Visit Provider Surgery
DX: R10.9 Unspecified abdominal pain (principal)
CPT/HCPCS: 36415; 80048

== ENCOUNTER → 2018-11-26 14:56 | Outpatient (CLI) | payer MEDICAID, SELFPAY ==
[2018-11-09 13:39] VITALS: BMI 55.2
--- NOTE | 2018-11-26 15:01 | CT_ITS ---
STUDY: CT ABDOMEN AND PELVIS WITH CONTRAST REASON FOR EXAM: Male, 58 years old. Abdominal wall pain. RADIATION DOSAGE (If Supplied By Facility): CTDIvol = ( 24.33 ) mGy, DLP = ( 2131.25 ) mGycm TECHNIQUE: Transaxial images were obtained from the dome of the diaphragm to the symphysis pubis without oral contrast. 100 IV Isovue 300 was administered. Sagittal and coronal images were reconstructed. Individualized dose optimization techniques were used for this CT. COMPARISON: None. FINDINGS: The visualized lung bases are unremarkable. Coronary artery calcification. Normal liver. The patient is status post cholecystectomy. Normal spleen. Surgical clips are seen in the region of the splenic hilum. Normal pancreas. Normal bilateral adrenal glands. Normal right kidney. Normal left kidney. There is a small hiatal hernia. There is evidence of prior subtotal gastrectomy. Normal small intestine. Normal colon. The appendix is visualized and appears normal. There is diffuse atherosclerotic calcification of the abdominal aorta, without a demonstrated aneurysm. There is an IVC filter in place. Normal retroperitoneum. Distended urinary bladder. Focal penile calcifications. There is a right-sided inguinal hernia containing adipose tissue. There are diffuse degenerative changes of the visualized lumbar spine. Straightening of the normal lumbar lordosis. CT/Abdomen/Pelvis WITH Contrast IMPRESSION: Priors of total gastrectomy and anastomosis with hiatal hernia. Surgical clips are seen in the region of the splenic hilum. Electronically Signed: Cole Hopper, at 8:08 EDT , Service support ,
[2018-11-26 15:55] VITALS: BP 84/26; PULSE 45; RESP 16; O2SAT 96; BMI 59.1
== END ==
PROVIDERS: Family Provider Family Medicine; PCP Family Medicine; Referring Provider Surgery; Visit Provider Surgery
DX: R10.9 Unspecified abdominal pain (principal)
CPT/HCPCS: 74177; J7040; Q9967

== ENCOUNTER → 2019-01-29 13:34 | Outpatient (CLI) | payer MEDICAID, SELFPAY ==
[2019-01-29 13:31] VITALS: BMI 59.1
--- NOTE | 2019-01-29 13:36 | RAD_ITS ---
STUDY: X-RAY - LEFT SHOULDER REASON FOR EXAM: Pain, injury. TECHNIQUE: 2 view(s) of the shoulder. COMPARISON: None. FINDINGS: Although there is suboptimal positioning, there is still significant diagnostically useful information from this examination. Normal glenohumeral articulation. Normal acromioclavicular joint. Normal acromion. Normal humeral head and visualized proximal humerus. The soft tissue structures are unremarkable. Normal visualized pulmonary apex. RAD/Shoulder min 2 Views IMPRESSION: No demonstrated abnormality. Electronically Signed: Tin Laughlin MD at 11:44 EDT Tel , Service support ,
== END ==
PROVIDERS: Family Provider Family Medicine; PCP Family Medicine; Referring Provider Orthopaedic Surgery; Visit Provider Orthopaedic Surgery
DX: M25.512 Pain in left shoulder (principal)
CPT/HCPCS: 73030

== ENCOUNTER 2019-02-19 02:29 | Inpatient (IN) | payer MEDICAID, SELFPAY ==
[2019-01-29 13:31] VITALS: BMI 59.1
[2019-02-19] VITALS (17 sets, daily range): BP systolic 70–110; BP diastolic 39–77; PULSE 67–100; RESP 10–18; TEMP 36.7–36.8; O2SAT 90–98; BMI 49.4; BMI 51.2
--- NOTE | 2019-02-19 02:53 | EKG12_ITS ---
Test Reason : Blood Pressure : / mmHG Vent. Rate : 065 BPM Atrial Rate : 223 BPM P-R Int : 000 ms QRS Dur : 102 ms QT Int : 416 ms P-R-T Axes : 265 -66 059 degrees QTc Int : 432 ms Atrial flutter with variable A-V block Left axis deviation Low voltage QRS Inferior infarct,age undetermined, cannot be excluded Possible Anterolateral infarct , age undetermined , cannot be excluded Abnormal ECG Confirmed by JEREMIAS BLOOM, CORAZON ([id number]), newspaper photo editor VISHAL MNUOZ ([id number]) on 02/20/2019 12:14:17 PM Referred By: Jailyn Delatorre Confirmed By:CORAZON MCDOWELL MD
[2019-02-19] MEDS: 0.9% Normal Saline 1,000 ML 1000 ML IV ×2 (03:15→04:04)
[2019-02-19 03:36] LABS: Absolute Lymphocyte Count 1.36 X10^3/ul (0.83-4.51); Basophil# 0.01 X10^3/uL; Basophil% 0.1 % (0-1); Eosinophil# 0.16 X10^3/uL; Hematocrit 39.3 % (40-54); Hemoglobin 13.6 g/dl (13.0-16.5); Lymphocyte # 1.36 X10^3/ul (4.0); Lymphocyte % 16.9 % (19-41); Mean Corp Hgb Conc 34.6 g/gl (32-36); Mean Corpuscular Hgb 30.3 pg (27.0-32.0); Mean Corpuscular Volume 87.5 fL (80-94); Mean Platelet Vol. 10.4 fl (6.2-12.0); Monocyte# 0.55 X10^3/uL; Monocyte% 6.8 % (0-10); Neutrophil # 5.98 X10^3/uL (2.7-7.7); Neutrophil % 74.1 % (47-70); Platelet Count 193 K/mm3 (150-450); RBC Distribution Width CV 12.7 % (11.6-14.6); RBC Distribution Width SD 39.8 fl (35.1-43.9); Red Blood Count 4.49 M/mm3 (4.6-6.2); White Blood Count 8.1 K/mm3 (4.4-11.0)
[2019-02-19 03:37] LABS: AST(SGOT) 15 U/L (15-37); Alanine Aminotransfer ALT/SGPT 16 U/L (16-61); Albumin, Serum 3.3 g/dL (3.2-5.0); Alkaline Phosphatase 120 U/L (45-117); Anion Gap 8 (5-15); BUN 69 mg/dL (7-18); Calcium,Total 7.8 mg/dL (8.5-10.1); Chloride 94 mmol/L (98-107); Creatinine, Serum 2.76 mg/dL (0.70-1.30); EST Glomerular Filtration Rate 25 mL/min (>60); Est Glom Filt Rate - Afr Amer 31 mL/min (>60); Estimated Creatinine Clearance 34.33 ml/min; Globulin 3.3 g/dL (2.2-4.2); Glucose 87 mg/dL (74-106); Potassium 4.4 mmol/L (3.5-5.1); Protein, Total 6.6 g/dL (6.4-8.2); Sodium Level 130 mmol/L (136-145)
[2019-02-19 03:39] LABS: POSITIVE COUNT NO; POSITIVE DIFFERENTIAL NO; POSITIVE MORPHOLOGY NO
[2019-02-19 03:56] LABS: Lactic Acid 0.8 mmol/L (0.4-2.0)
--- NOTE | 2019-02-19 04:09 | RAD_ITS ---
HISTORY: weakness EXAMINATION/TECHNIQUE: XR Chest 1 View: COMPARISON: CT chest 03/31/18 FINDINGS: LINES/DEVICES: None. LUNGS: No consolidation, edema or effusion. No pneumothorax. MEDIASTINUM AND CARDIOVASCULAR STRUCTURES: Cardiac silhouette not enlarged. Central airways and mediastinal contour are unremarkable. BONES AND SOFT TISSUES: Unremarkable. RAD/Chest 1 View (Portable) IMPRESSION: No radiographic evidence of acute cardiopulmonary disease. at 0440 Reported and signed by: Juancho Alvarenga MD Electronically Signed: Juancho Alvarenga, at 4:39 EDT Tel , Service support ,
[2019-02-19 04:35] LABS: Thyroid Stim Hormone (TSH) 1.12 uIU/mL (0.358-3.74)
[2019-02-19] MEDS: 0.9% Normal Saline 1,000 ML 999 ML IV ×2 (05:20→06:20)
[2019-02-19 05:32] LABS: Bacteria 0 SEEN /hpf (None Seen); Mucous, Urine 0 SEEN /hpf (<or=2+); Red Blood Cells-Urine 0 SEEN /hpf (0-5); Squamous Epithelial Cells - UA 0 SEEN /hpf (0-5); White Blood Cells 0 SEEN /hpf (0-5)
[2019-02-19 05:41] LABS: Color, Urine Yellow (Yellow); Glucose, Dipstick Normal (Normal); Ketone-Dipstick Negative (Negative); Leukocyte Esterase-Dipstick 25 /ul (Negative); Nitrite-Dipstick Negative (Negative); Occult Blood-Urine Negative /ul (Negative); Protein-Dipstick Negative (Negative); Urine Clarity Clear (Clear); Urine Urobilinogen Normal (Normal)
[2019-02-19 05:42] LABS: Urine Bilirubin Dipstick 3 mg/dL (Negative)
--- NOTE | 2019-02-19 06:14 | EKG12_ITS ---
Test Reason : REPEAT EKG Blood Pressure : / mmHG Vent. Rate : 072 BPM Atrial Rate : 230 BPM P-R Int : 000 ms QRS Dur : 108 ms QT Int : 414 ms P-R-T Axes : 000 -59 058 degrees QTc Int : 453 ms Atrial flutter with variable A-V block Left axis deviation Low voltage QRS Inferior infarct , age undetermined , cannot be xcluded Possible Anterolateral infarct , age undetermined ;cannot be excluded Abnormal ECG Confirmed by JEREMIAS BLOOM, CORAZON ([id number]), manager editorial VISHAL MUNOZ ([id number]) on 02/20/2019 12:26:06 PM Referred By: Jailyn Delatorre Confirmed By:CORAZON MCDOWELL MD
--- NOTE | 2019-02-19 07:22 | ED.VISSUMM ---
- ER Visit Summary Date of Service: 02/19/19 Chief Complaint: Weakness and twitching History of Present Illness: The patient is a 58 M tells me that he feels generally weak. This started yesterday. He notes decreased strength to move around. Then last evening and into the night he developed some intermittent twitches of his body sometimes feet and legs sometimes arms chest. The nurses apparently were concerned he was having a stroke so they sent him to the emergency room from [facility]. In August he got admitted to the hospital with frequent falls and left fibular fracture. He was sent to rehab and at [facility]. He is currently on Xarelto for a lower extremity DVT. He has a history of morbid obesity had gastric bypass and is lost over 300 pounds. History of depression fibromyalgia and hypertension. Physical Examination: Afebrile heart rate 73 respirations are 14 pulse ox 90% on room air blood pressure 81/60 Gen: Well-nourished well-developed morbidly obese Head: Normocephalic atraumatic Eyes: Perrl EOMI ENT: TMs clear no rhinorrhea moist mucous membranes Neck: Supple no lymphadenopathy no JVD nontender CVS: Regular rate rhythm no murmurs normal S1-S2 there is good capillary refill less than 3 seconds of the fingers Respiratory: No distress clear to auscultation bilaterally chest nontender Abdomen: Soft nontender nondistended normal bowel sounds no masses Back: Nontender Extremity: Nontender no edema Skin: Normal color no rash Neuro: alert orientated ?3 CN II-XII intact normal strength sensation Psych: Normal affect normal mood Test Results: White count 8.1 hemoglobin 13.6. BUN 69 creatinine 2.76 lactic acid 0.8 troponin negative urinalysis normal EKG is concerning for atrial flutter more pronounced when I watch him on the monitor. This was later repeated in his course and his also concerning for atrial flutter. Chest x-ray negative. Emergency Department Course and Treatment: The patient does not from what I can see and per his recollection does not have a history of atrial flutter or atrial fibrillation. He is already on Xarelto and he is currently rate controlled. His blood pressure remains low despite IV fluids. Patient was unable to urinate we placed a Aldana catheter received 1500 cc out. He tells me he was urinating yesterday. However his physical exam mental status and labs are reassuring despite these readings. We have tried manual readings in different positions of the cuff. I cannot explain his current hypotension. His creatinine 2.76 is significant the office baseline of 0.74-1. We are planning on admitting him. Impression: 1. New onset atrial flutter 2. Urinary retention 3. Acute kidney injury 4. Hypotension This note was generated with Emida dictation software. It may contain incorrect words, spelling, and punctuation that were not noted in review of the chart prior to signing ED Disposition - Plan for ED Patient: Referrals: Kieran Beard MD [Primary Care Provider] -
--- NOTE | 2019-02-19 07:23 | PCM.HP.STD ---
Problem List (1) Atrial flutter Status: Acute History of Present Illness Date of Admission: 02/19/19 Chief Complaint: Hypotension The patient is a 58 year old M with a significant history of super morbid obesity who was sent to a senior care for rehab after having left fibula fracture returning because of persistent low blood pressure at the [facility]. Associated with her symptoms is twitching and sleepiness. He reports that the day before presentation his blood pressure was found to have persistently low at the senior care. He reported systolic blood pressure in the 60s. He reported in the last 2 to 4 days he has been having excessive sleepiness. At the emergency department patient was given 4 L of normal saline. Aldana catheter was placed and about 1,500 ml urine was obtained immediately. However, patient denies decreased urination prior to coming to the emergency department. Indeed, he reports excessive urination before coming to the emergency department. Further, he reports twitches and weakness. At the emergency department patient was found to have A flutter with rate in the 60s. Past Medical History Past Medical History (Chronic Problems): Chronic Problems (Last Updated 01/29/19 @ 13:38 by Asia Garcia) Rheumatic fever (Chronic) Morbid obesity (Chronic) Chronic pain (Chronic) BPH (benign prostatic hyperplasia) (Chronic) ADD (attention deficit disorder) (Chronic) H/O gastric bypass (Chronic) Neuropathy (Chronic) Depression (Chronic) HTN (hypertension) (Chronic) Calcium deficiency (Chronic) Vitamin B12 deficiency (Chronic) Fibromyalgia (Chronic) Medical History: Medical History (Last Reviewed 02/19/19 @ 08:09 by Sunil Parker MD) Abdominal wall pain (Acute) R10.9 Rheumatic fever (Chronic) I00 Morbid obesity (Chronic) E66.01 Chronic pain (Chronic) G89.29 BPH (benign prostatic hyperplasia) (Chronic) N40.0 ADD (attention deficit disorder) (Chronic) F98.8 Neuropathy (Chronic) G62.9 Depression (Chronic) F32.9 HTN (hypertension) (Chronic) I10 Calcium deficiency (Chronic) E58 Vitamin B12 deficiency (Chronic) E53.8 Fibromyalgia (Chronic) M79.7 History of sepsis Z86.19 Allergies duloxetine [From Cymbalta] Adverse Reaction (Verified 02/19/19 02:33) Other SERATONIN SYNDROME Home Medications: Ambulatory Orders Medication Instructions Recorded Lisinopril [Zestril] 20 mg PO DAILY 11/30/15 Albuterol Inhaler [Ventolin Hfa] 2 puff INHALATION Q6H PRN PRN 03/30/18 Baclofen [Lioresal] 10 mg PO BID 03/30/18 Clonazepam [Klonopin] 1 mg PO BID 03/30/18 Gabapentin [Neurontin] 300 mg PO TIDCM 03/30/18 Hydrochlorothiazide [Hctz] 25 mg PO DAILY 03/30/18 Metoprolol Tartrate [Lopressor 50 mg PO BID 03/30/18 (beta gali)] Sertraline HCl [Zoloft] 100 mg PO QHS 03/30/18 Cyanocobalamin [Vitamin B12] 1,000 mcg IM Q30D 05/28/18 Dicyclomine HCl 10 mg PO TIDCM 09/14/18 Ferrous Sulfate 325 mg PO DAILY@0800 09/14/18 Furosemide [Lasix] 40 mg PO DAILY 09/14/18 Omeprazole 40 mg PO DAILY 09/14/18 Calcium Carbonate/Vitamin D3 1 ea PO BIDCM #1 tab 09/19/18 [Calcium 600 + Vit D Tablet] Magnesium Hydroxide [Milk Of 30 ml PO DAILY PRN PRN udc 09/19/18 Magnesia] Meloxicam [Mobic] 7.5 mg PO BID tab 09/19/18 Nystatin Powder [Mycostatin Powder] 1 applic TOPICAL BID bottle 09/19/18 Polyethylene Glycol 3350 [Miralax] 17 gm PO DAILY packet 09/19/18 Rivaroxaban [Xarelto] 10 mg PO DAILY #1 tab 09/19/18 Tamsulosin HCl [Flomax] 0.4 mg PO DAILY@1730 cap 09/19/18 Acetaminophen 650 mg PO Q4H PRN PRN 02/19/19 Cholecalciferol (VIT D3) [Vitamin 1,000 unit PO DAILY 02/19/19 D] Cyclobenzaprine HCl 10 mg PO PRN PRN 02/19/19 Fentanyl 1 ea TD Q72H 02/19/19 Nortriptyline HCl 50 mg PO QHS 02/19/19 Oxycodone HCl 10 mg PO Q6H PRN PRN 02/19/19 Venlafaxine HCl 25 mg PO QHS 02/19/19 Venlafaxine HCl 50 mg PO BREAKFAST 02/19/19 Surgical History: Surgical History (Last Reviewed 02/19/19 @ 08:09 by Sunil Parker MD) H/O gastric bypass (Chronic) Z98.84 History of hernia repair Z98.890, Z87.19 Status post removal of thyroid nodule Z98.890 Surgical History: - - Gastric bypass surgery. Psychiatric History: Attn. deficit disorder, Depression Smoking Status: Former smoker - *Family History Paternal Family History: Family History (Last Reviewed 02/19/19 @ 08:22 by Sunil Parker MD) Mother Diabetes Thyroid disorder Father COPD (chronic obstructive pulmonary disease) Hypertension Heart disease Diabetes History Items: Heart Disease Review of Systems Constitutional: Reports: Weakness. Denies: Chills, Fever, Weight Change HEENT: Denies: Head Aches, Sinus Congestion, Sinus Drainage Cardiovascular: Denies: Chest Pain, Palpitations Respiratory: Denies: Cough, Shortness of breath at rest, Sputum production Gastrointestinal: Denies: Abdominal Pain, Nausea, Vomiting Genitourinary: Denies: Dysuria Musculoskeletal: Denies: Joint Pain, Joint Tenderness Skin: Denies: Rash, Wounds Neurological: Denies: Numbness, Tingling, Focal weakness Psychiatric: Reports: Anxiety, Depression. Denies: Homicidal Ideations, Suicidal Ideations Hematologic/ Lymphatic: Denies: Easy Bruising, Easy Bleeding VTE Information - Inpt Only VTE Present on Admission: No VTE Mechan Device Prophylaxis: None VTE Pharm Prophylaxis ordered?: No Reason prophylaxis not ordered:: Treatment Not Indicated - Already on Xarelto; continue. Also with IVC filter. Patient Problems: Active and Suspected Problems (Last Updated 01/29/19 @ 13:38 by sAia Garcia) A-fib (Acute) Atrial flutter (Acute) - Physical Exam General: Alert, Oriented x3, Cooperative, - - Super morbid obesity HEENT: Atraumatic, PERRLA, EOMI, Normocephalic Neck: Supple, No JVD, Negative Carotid Bruits Lungs: Clear to auscultation, Normal air movement Cardiovascular: Regular rate, No murmurs Abdomen: Bowel Sounds Present, Soft, Non Tender Extremities: No edema, Capillary Refill Less than 3 Seconds Skin: No rashes, No breakdown Musculoskeletal: No Tenderness to Palpation of Joints or Extremities Neurological: Cranial nerves II-XII grossly intact Psych/Mental Status: Normal Affect, Appropriate Vital Signs Temp Pulse Resp BP Pulse Ox 98.0 F 80 12 90/67 95 02/19/19 02:30 02/19/19 06:49 02/19/19 06:49 02/19/19 06:49 02/19/19 06:49 Oxygen Delivery Method Room Air Weight: 174.633 kg Body Mass Index (BMI) 49.4 Laboratory Tests Past 24 Hrs 02/19/19 02/19/19 02/19/19 03:12 03:12 03:12 WBC 8.1 RBC 4.49 L Hgb 13.6 Hct 39.3 L MCV 87.5 MCH 30.3 MCHC 34.6 RDW 12.7 RDW Differential 39.8 Plt Count 193 MPV 10.4 Immature Gran % (Auto) 0.100 Neut % (Auto) 74.1 H Lymph % (Auto) 16.9 L [place] % (Auto) 6.8 Eos % (Auto) 2.0 Baso % (Auto) 0.1 Absolute Neuts (auto) 6.0 Absolute Lymphs (auto) 1.36 Total Counted Not Reportable Sodium 130 L Potassium 4.4 Chloride 94 L Carbon Dioxide 28.0 Anion Gap 8 BUN 69 H Creatinine 2.76 H Estim Creat Clear Calc 34.33 Est GFR (MDRD) Af Amer 31 L Est GFR (MDRD) Non-Af 25 L BUN/Creatinine Ratio 25.0 H Glucose 87 Lactic Acid 0.8 Calcium 7.8 L Magnesium Total Bilirubin 0.20 AST 15 ALT 16 Alkaline Phosphatase 120 H Troponin I < 0.015 Total Protein 6.6 Albumin 3.3 Globulin 3.3 Albumin/Globulin Ratio 1.0 TSH Urine Color Urine Clarity Urine pH Ur Specific [place] Urine Protein Urine Glucose (UA) Urine Ketones Urine Occult Blood Urine Nitrite Urine Bilirubin Urine Urobilinogen Ur Leukocyte Esterase Urine RBC Urine WBC Ur Squamous Epith Cells Urine Bacteria Urine Mucus 02/19/19 02/19/19 03:12 05:25 WBC RBC Hgb Hct MCV MCH MCHC RDW RDW Differential Plt Count MPV Immature Gran % (Auto) Neut % (Auto) Lymph % (Auto) [place] % (Auto) Eos % (Auto) Baso % (Auto) Absolute Neuts (auto) Absolute Lymphs (auto) Total Counted Sodium Potassium Chloride Carbon Dioxide Anion Gap BUN Creatinine Estim Creat Clear Calc Est GFR (MDRD) Af Amer Est GFR (MDRD) Non-Af BUN/Creatinine Ratio Glucose Lactic Acid Calcium Magnesium 2.0 Total Bilirubin AST ALT Alkaline Phosphatase Troponin I Total Protein Albumin Globulin Albumin/Globulin Ratio TSH 1.12 Urine Color Yellow Urine Clarity Clear Urine pH 5.0 Ur Specific [place] 1.020 Urine Protein Negative Urine Glucose (UA) Normal Urine Ketones Negative Urine Occult Blood Negative Urine Nitrite Negative Urine Bilirubin 3 H Urine Urobilinogen Normal Ur Leukocyte Esterase 25 H Urine RBC 0 SEEN Urine WBC 0 SEEN Ur Squamous Epith Cells 0 SEEN Urine Bacteria 0 SEEN Urine Mucus 0 SEEN Assessment/Plan All Active Problems (Last Updated 01/29/19 @ 13:38 by Asia Garcia) A-fib (Acute) Atrial flutter (Acute) Left fibular fracture (Acute) Hyponatremia (Acute) Abdominal wall pain (Acute) The patient is a 58 year old M with a significant history of super morbid obesity who was sent to a senior care for rehab after having left fibula fracture returning because of persistent low blood pressure at the Retirement; twitches and found to have A flutter-controlled at controlled rate and elevated creatinine. Hypotension Etiology of his hypotension is unclear at this time. However his hypotension is improving. Will stop all blood pressure medications ( Lisinopril, Metoprolol, Lasix, HCTZ and Flomax). Because of his body habitus it was concerning whether his blood pressure being measured was accurate. However, review of old records showed that on his previous visit in August 2018 his blood pressure was normal. We will continue patient on normal saline 100 mL's per hour. Trend blood pressures. A-flutter Flutter waves on EKG and on monitor. Etiology on clear but can not rule out dehydration. Review of previous EKG obtained on August 2018 did not show Flutter or A-fib Of note patient is on Xarelto 10 mg daily likely for DVT prophylaxis. Of note he reports having IVC filter. Consider discussing therapeutic dose of anticoagulation with patient. Will get echocardiogram to see whether has any heart failure. This should also help evaluate his risk of TIA/Stroke with [id number] Score Cardiology consult. Admit to PCU with telemetry. Of note his home betablocker has been held because of hypotension Get Echo Magnesium is normal. TSH is normal. Potassium is normal. Urine retention Aldana placed at the ED. Although patient reports excessive urination in the last few days he was found to have 1500 mL's of urine when Aldana catheter was placed. His Flomax has been held because of hypotension ALIA Presentation his creatinine was 2.76. Review of old records showed baseline creatinine of less than 1. His BUN and creatinine was more than 20. Of note his BUN is way above his baseline. His BUN on 11/09/2018 was 31; and even previous BUN has been very low. Likely prenal and post renal from urinary retention Received 4 L normal saline the emergency department. Continue maintenance dose IV normal saline hydration. Trend BMP. Avoid nephrotoxic's. Lisinopril and HCTZ held. Chronic Pain/Fibromyalgia Fentanyl and nortriptyline continued. Hold oxycodone as needed for now. Fentanyl was continued to prevent withdrawal and to manage his chronic pain. Will decrease dose of gabapentin because of ALIA and lethargy. Hold baclofen because of lethargy Depression/anxiety Zoloft continued. Because of risk of withdrawal we will continue Klonopin. Effexor continued Super-morbid Obesity Reported lost 300 to 400 pounds after gastric bypass surgery 30 years ago and never gained the weight back. Yet is still super morbidly obese. Counselled. DVT Prophylaxis On Xarelto and with IVC Filter. Code Visit Inpatient E&M: 95578 Init Hosp L3
--- NOTE | 2019-02-19 08:24 | ECHOCS_ITS ---
Reason For Study: A. fib/flutter Procedure This was a 2D Doppler, Color Flow transthoracic echocardiogram. The study was technically difficult. Contrast injection was performed. Exam performed portable in patient room. Left Ventricle Based upon the 2D echocardiographic contrast enhanced images obtained there appears to be grossly normal left ventricular size, wall motion, and systolic function. The estimated ejection fraction is 55 %. Right Ventricle Based upon the 2D echocardiographic and contrast enhanced images obtained there appears to be grossly normal right ventricular size, wall motion, and systolic function. Atria Normal left atrium. Normal right atrium. No doppler evidence for ASD. Mitral Valve There is no mitral annular calcification. Normal mitral valve. Trivial mitral valve insufficiency. Tricuspid Valve Normal tricuspid valve. Mild tricuspid valve insufficiency. Right ventricular systolic pressure estimated to be 32 mmHg. Aortic Valve Trisinus/trileaflet aortic valve. Normal aortic valve. Pulmonic Valve The pulmonic valve is not well visualized. Great Vessels The aortic root is not well visualized. Pericardium/Pleural No pericardial effusion. Medication Diluted definity 3ml given slow IV push to enhance endocardial definition. Doppler Measurements & Calculations MV E max omer: 91.4 cm/sec Ao V2 max: 105.0 cm/sec LV V1 max: 81.1 cm/sec Ao max P.4 mmHg LV V1 max P.6 mmHg PA V2 max: 86.5 cm/sec TR max omer: 266.7 cm/sec TR max P.5 mmHg Interpretation Summary The study was technically difficult. Contrast injection was performed. Based upon the 2D echocardiographic contrast enhanced images obtained there appears to be grossly normal left ventricular size, wall motion, and systolic function. The estimated ejection fraction is 55 %. Trivial mitral valve insufficiency. Mild tricuspid valve insufficiency. Right ventricular systolic pressure estimated to be 32 mmHg. Ordering Physician: Sunil Parker Referring Physician: Santiago Beard Performed By: Rekha Fierro RDCS
--- NOTE | 2019-02-19 09:21 | CASEMGMT ---
Patient is from [facility]. CAMILLA faxed information to [facility]. CAMILLA also left a message for Marilyn at [facility]. Holly TEMPLE MSW
--- NOTE | 2019-02-19 09:42 | PCM.HOSP.N ---
Hospitalist Note The patient is a 58 year old M with a significant history of super morbid obesity that is post gastric bypass surgery was admitted from the [facility] after found to have twitchings, concern for stroke, feeling weak and sent to ER. In ER, he was found to have atrial flutter. EKG shows atrial flutter with LAD. Patient also has history of hypertension, DVT on Xarelto 10 mg daily. His both feet were felt to be cold and dusky hue cyanosis in ER. Patient was found hypotensive and received IV normal saline boluses. [employer]ing [employer] Out Setter was further consulted for atrial flutter. 1. Hypotension, possible secondary to atrial flutter/fibrillation, new onset. EKG shows controlled ventricular response. Patient blood pressure in ER has been in the 90s. It improved 200/39. Patient is morbidly obese and may be cough mistreating. Patient is DNR CC therefore admitted to PCU as he is against chest compression, intubation, vent support, central line or vasopressors. On IV fluid resuscitation. 2. Atrial flutter: Prior EKG of February 2019 was normal sinus rhythm. Echo is ordered. TSH and, potassium and magnesium were normal. Rate is controlled. 3. Acute kidney injury with retention: Patient baseline creatinine is less than 1. Admitted with creatinine 2.76. BUN 69. Sodium and chloride low. Possible prerenal/postrenal. Aldana inserted in the ER. Strict I and O. Patient had a stat 1500 mL after Aldana catheterization. 875 mL urine afterwards. Monitor kidney function and electrolytes. 4. Other chronic comorbidities include chronic pain/fibromyalgia anxiety and depression and super morbid obesity. DVT Prophylaxis On Xarelto and with IVC Filter. Laboratory Results 02/19/19 03:12: WBC 8.1, RBC 4.49 L, Hgb 13.6, Hct 39.3 L, MCV 87.5, MCH 30.3, MCHC 34.6, RDW 12.7, RDW Differential 39.8, Plt Count 193, MPV 10.4, Immature Gran % (Auto) 0.100, Neut % (Auto) 74.1 H, Lymph % (Auto) 16.9 L, [place] % (Auto) 6.8, Eos % (Auto) 2.0, Baso % (Auto) 0.1, Absolute Neuts (auto) 6.0, Absolute Lymphs (auto) 1.36, Total Counted Not Reportable 02/19/19 03:12: Sodium 130 L, Potassium 4.4, Chloride 94 L, Carbon Dioxide 28.0, Anion Gap 8, BUN 69 H, Creatinine 2.76 H, Estim Creat Clear Calc 34.33, Est GFR (MDRD) Af Amer 31 L, Est GFR (MDRD) Non-Af 25 L, BUN/Creatinine Ratio 25.0 H, Glucose 87, Calcium 7.8 L, Total Bilirubin 0.20, AST 15, ALT 16, Alkaline Phosphatase 120 H, Troponin I < 0.015, Total Protein 6.6, Albumin 3.3, Globulin 3.3, Albumin/Globulin Ratio 1.0 02/19/19 03:12: Lactic Acid 0.8 02/19/19 03:12: Magnesium 2.0, TSH 1.12 02/19/19 05:25: Urine Color Yellow, Urine Clarity Clear, Urine pH 5.0, Ur Specific [place] 1.020, Urine Protein Negative, Urine Glucose (UA) Normal, Urine Ketones Negative, Urine Occult Blood Negative, Urine Nitrite Negative, Urine Bilirubin 3 H, Urine Urobilinogen Normal, Ur Leukocyte Esterase 25 H, Urine RBC 0 SEEN, Urine WBC 0 SEEN, Ur Squamous Epith Cells 0 SEEN, Urine Bacteria 0 SEEN, Urine Mucus 0 SEEN
[2019-02-19] MEDS: 0.9% Normal Saline 1,000 ML 100 ML IV (09:56)
[2019-02-19] MEDS: Acetaminophen 325 MG Tablet 650 MG PO (10:00)
[2019-02-19] MEDS: Ferrous Sulfate 325 MG Tablet PO (10:23)
[2019-02-19] MEDS: Dicyclomine 10 MG Capsule PO ×2 (10:23→16:08)
[2019-02-19] MEDS: Calcium Carb/Vitamin D 1 TABLET Tablet PO ×2 (10:24→16:08)
[2019-02-19] MEDS: Venlafaxine HCl 25 MG Tablet 50 MG PO (10:24)
[2019-02-19] MEDS: Nystatin Powder 15gm Bottle 1 APPLIC TOPICAL ×2 (10:24→21:06)
[2019-02-19] MEDS: Pantoprazole Sodium 40 MG Tablet PO (10:25)
[2019-02-19] MEDS: clonazePAM 1 MG Tablet PO ×2 (10:31→21:12)
--- NOTE | 2019-02-19 10:58 | PCM.CONS.C ---
<Mitchell Rodrigues - Last Filed: 02/19/19 11:58> Problem List (1) Atrial flutter Status: Acute Reason for Consult Date of Consultation: 02/19/19 Reason for Consultation: New onset atrial flutter History of Present Illness: The patient is a 58 year old M who is currently a resident at [facility] for rehab status post recent left fibular fracture. Recently he noted to feel generally weak and fatigued. Nursing staff noticed that he had twitching and was concern for stroke and sent him to the Emergency Department. He has a previous history of hypertension, DVT with Xarelto 10 mg p.o. therapy, obesity with gastric bypass surgery, depression, and fibromyalgia. In the emergency department his EKG showed atrial flutter/fibrillation with a controlled ventricular response. His creatinine was elevated at 2.76. His chest x-ray was negative. His troponin was also negative. He was hypotensive and received IV normal saline boluses. He was admitted for further evaluation. Cardiology was consulted due to onset new onset atrial flutter. Past Medical History Allergies/Adverse Reactions: Allergies duloxetine [From Cymbalta] Adverse Reaction (Verified 02/19/19 02:33) Other SERATONIN SYNDROME Home Medications: Ambulatory Orders Medication Instructions Recorded Lisinopril [Zestril] 20 mg PO DAILY 11/30/15 Albuterol Inhaler [Ventolin Hfa] 2 puff INHALATION Q6H PRN PRN 03/30/18 Baclofen [Lioresal] 10 mg PO BID 03/30/18 Clonazepam [Klonopin] 1 mg PO BID 03/30/18 Gabapentin [Neurontin] 300 mg PO TIDCM 03/30/18 Hydrochlorothiazide [Hctz] 25 mg PO DAILY 03/30/18 Metoprolol Tartrate [Lopressor 50 mg PO BID 03/30/18 (beta gali)] Sertraline HCl [Zoloft] 100 mg PO QHS 03/30/18 Cyanocobalamin [Vitamin B12] 1,000 mcg IM Q30D 05/28/18 Dicyclomine HCl 10 mg PO TIDCM 09/14/18 Ferrous Sulfate 325 mg PO DAILY@0800 09/14/18 Furosemide [Lasix] 40 mg PO DAILY 09/14/18 Omeprazole 40 mg PO DAILY 09/14/18 Calcium Carbonate/Vitamin D3 1 ea PO BIDCM #1 tab 01/30/19 [Calcium 600 + Vit D Tablet] Magnesium Hydroxide [Milk Of 30 ml PO DAILY PRN PRN udc 09/19/18 Magnesia] Meloxicam [Mobic] 7.5 mg PO BID tab 09/19/18 Nystatin Powder [Mycostatin Powder] 1 applic TOPICAL BID bottle 09/19/18 Polyethylene Glycol 3350 [Miralax] 17 gm PO DAILY packet 09/19/18 Rivaroxaban [Xarelto] 10 mg PO DAILY #1 tab 09/19/18 Tamsulosin HCl [Flomax] 0.4 mg PO DAILY@1730 cap 09/19/18 Acetaminophen 650 mg PO Q4H PRN PRN 02/19/19 Cholecalciferol (VIT D3) [Vitamin 1,000 unit PO DAILY 02/19/19 D] Cyclobenzaprine HCl 10 mg PO PRN PRN 02/19/19 Fentanyl 1 ea TD Q72H 02/19/19 Nortriptyline HCl 50 mg PO QHS 02/19/19 Oxycodone HCl 10 mg PO Q6H PRN PRN 02/19/19 Venlafaxine HCl 25 mg PO QHS 02/19/19 Venlafaxine HCl 50 mg PO BREAKFAST 02/19/19 Past Medical History (Chronic Problems): Chronic Problems (Last Reviewed 02/19/19 @ 08:09 by Sunil Parker MD) Rheumatic fever (Chronic) Morbid obesity (Chronic) Chronic pain (Chronic) BPH (benign prostatic hyperplasia) (Chronic) ADD (attention deficit disorder) (Chronic) H/O gastric bypass (Chronic) Neuropathy (Chronic) Depression (Chronic) HTN (hypertension) (Chronic) Calcium deficiency (Chronic) Vitamin B12 deficiency (Chronic) Fibromyalgia (Chronic) Surgical History: - - Gastric bypass surgery. Psychiatric History: Attn. deficit disorder, Depression - *Family History Paternal Family History: Family History (Last Updated 02/19/19 @ 11:03 by BORIS Cartagena) Mother Diabetes Thyroid disorder Father Diabetes Heart disease COPD (chronic obstructive pulmonary disease) Hypertension History Items: Heart Disease Smoking Status: Former smoker Review of Systems - Review of Systems Cardiovascular: Denies: Chest Discomfort at Rest, Chest Discomfort with Exertion, Shortness of Breath Respiratory: Denies: Cough, Shortness of Breath Neurological: Reports: Dizziness Subjectve: Overall, patient states feeling well. He denies episodes of chest pain, arm pain, jaw pain, or neck pain. He denies any episodes of shortness of breath or palpitations. He states prior to admission he has felt weakness, fatigue, lightheadedness, and dizziness for approximately 1 week. He acknowledges lower extremity leg pain when going from sitting to standing position. He states feeling orthopnea always. He denies any blood in his urine or stool. He denies any fevers or chills. He states previously prior to gastric bypass surgery he was told to have irregular heartbeat. He did not undergo any further cardiac work-up at that time. Objective: Vital Signs Temp Pulse Resp BP Pulse Ox 98.2 F 88 14 100/39 L 94 02/19/19 10:33 02/19/19 10:33 02/19/19 10:33 02/19/19 10:33 02/19/19 10:33 Oxygen Delivery Method Room Air Weight: 399 lb 0.587 oz Body Mass Index (BMI) 51.2 General: Healthy Appearing, Awake, Alert, Oriented x 3, Cooperative, Obese HEENT: Atraumatic Oral: Moist Mucosa Lungs: Diminished Bryan Bases Cardiovascular: Irregular Rhythm, Normal S1, Normal S2, No Murmurs, No Rubs, No Gallops Vascular: No Carotid Bruits Abdomen: Soft Extremities: No Cyanosis, No Clubbing, No edema, Normal Capillary Refill Musculoskeletal: No Warmth Skin: No Rashes Neurological: No Focal Motor or Sensory Deficit Psych/Mental Status: Appropriate 02/19/19 03:12: WBC 8.1, RBC 4.49 L, Hgb 13.6, Hct 39.3 L, MCV 87.5, MCH 30.3, MCHC 34.6, RDW 12.7, RDW Differential 39.8, Plt Count 193, MPV 10.4, Immature Gran % (Auto) 0.100, Neut % (Auto) 74.1 H, Lymph % (Auto) 16.9 L, [place] % (Auto) 6.8, Eos % (Auto) 2.0, Baso % (Auto) 0.1, Absolute Neuts (auto) 6.0, Total Counted Not Reportable 02/19/19 03:12: Sodium 130 L, Potassium 4.4, Chloride 94 L, Carbon Dioxide 28.0, Anion Gap 8, BUN 69 H, Creatinine 2.76 H, Est GFR (MDRD) Af Amer 31 L, Est GFR (MDRD) Non-Af 25 L, BUN/Creatinine Ratio 25.0 H, Glucose 87, Calcium 7.8 L, Total Bilirubin 0.20, Troponin I < 0.015 02/19/19 03:12: Lactic Acid 0.8 02/19/19 03:12: Magnesium 2.0 02/19/19 05:25: Urine Color Yellow, Urine Clarity Clear, Urine pH 5.0, Ur Specific [place] 1.020, Urine Protein Negative, Urine Glucose (UA) Normal, Urine Ketones Negative, Urine Occult Blood Negative, Urine Nitrite Negative, Urine Bilirubin 3 H, Urine Urobilinogen Normal, Ur Leukocyte Esterase 25 H, Urine RBC 0 SEEN, Urine WBC 0 SEEN Rhythm: EKG: ECHO: Stress Test: 04/02/2018 Conclusion: Pharmacologic myocardial perfusion stress test with no EKG evidence of abnormal flow reserve. Nuclear images dictated separately. Cardiac Cath: PCI: CT Surgery: Holter monitor: EPS: PPM: CXR: Chest CT Scan: Assessment/Plan 1. New onset atrial fibrillation Patient's EKG upon arrival shows atrial flutter with a controlled ventricular response. While admitted on PCU, he had a short/transient episode of atrial flutter with tachycardic rates into the 120s. This subsequently returned to lower ventricular rates. His beta-gali has been held due to hypotension. He has been on oral anticoagulation at Xarelto 10 mg p.o. daily due to underlying history of DVT. With his acute kidney injury the lower dose of Xarelto is now appropriate. However, based on recent history of atrial fibrillation/flutter once clinically stable Xarelto should be 15 mg or 20 mg p.o. daily based on final kidney function. He will proceed with echocardiogram to further evaluate structural changes including valves and assess LVEF and wall motion. His last nuclear stress test was in March 2018 was considered to be negative. His potassium, magnesium, calcium, and thyroid function was noted to be within normal limits. His sodium level is slightly reduced, which may be result of aggressive fluid resuscitation. At this time, he will proceed with treatment for underlying hypotension and acute kidney injury treatment before further aggressive atrial fibrillation/flutter treatment. As his blood pressure stabilizes and improves, we will reintroduce low-dose beta-gali and titrate accordingly. Also once clinically stable, as noted above his Xarelto should be adjusted to 15 or 20mg p.o. daily for atrial fibrillation/flutter clot protection. As long as he remains clinically stable, outpatient cardioversion can be considered. Once his kidney function and hypotension improves if clinically indicated, we can consider a YOLIE cardioversion given that the onset of atrial flutter/fibrillation is not entirely known. 2. Acute kidney injury His creatinine level in October 2018 was noted to be normal at 1.04. His creatinine today was at 2.76. Hopefully, with hydration this continues to improve. As noted above his Xarelto will need to be adjusted accordingly based on kidney function. It is recommend to continue to hold nephrotoxic agents such as lisinopril and hydrochlorothiazide. 3. Hypotension At this time his medications which include lisinopril, hydrochlorothiazide, metoprolol tartrate, and Flomax have been held due to hypotension. Hopefully, with hydration his blood pressure improves and these medications can be reintroduced slowly and cautiously. This would include his metoprolol tartrate for better rate control in regards to his atrial fibrillation. <Renan Bruce - Last Filed: 02/19/19 13:32> Reason for Consult History of Present Illness: The patient is a 58 year old M [] Past Medical History - *Family History Paternal Family History: Family History (Last Updated 02/19/19 @ 11:03 by BORIS Cartagena) Mother Diabetes Thyroid disorder Father Diabetes Heart disease COPD (chronic obstructive pulmonary disease) Hypertension Objective: Vital Signs Temp Pulse Resp BP Pulse Ox 98.2 F 88 14 100/39 L 94 02/19/19 10:33 02/19/19 10:33 02/19/19 10:33 02/19/19 10:33 02/19/19 10:33 Oxygen Delivery Method Room Air Weight: 399 lb 0.587 oz Body Mass Index (BMI) 51.2 Intake and Output for Last 24 Hours 02/17/19 02/18/19 02/19/19 23:59 23:59 23:59 Intake Total 375 / 375 Output Total 875 / 875 Balance -500 / -500 02/19/19 03:12: WBC 8.1, RBC 4.49 L, Hgb 13.6, Hct 39.3 L, MCV 87.5, MCH 30.3, MCHC 34.6, RDW 12.7, RDW Differential 39.8, Plt Count 193, MPV 10.4, Immature Gran % (Auto) 0.100, Neut % (Auto) 74.1 H, Lymph % (Auto) 16.9 L, [place] % (Auto) 6.8, Eos % (Auto) 2.0, Baso % (Auto) 0.1, Absolute Neuts (auto) 6.0, Total Counted Not Reportable 02/19/19 03:12: Sodium 130 L, Potassium 4.4, Chloride 94 L, Carbon Dioxide 28.0, Anion Gap 8, BUN 69 H, Creatinine 2.76 H, Est GFR (MDRD) Af Amer 31 L, Est GFR (MDRD) Non-Af 25 L, BUN/Creatinine Ratio 25.0 H, Glucose 87, Calcium 7.8 L, Total Bilirubin 0.20, Troponin I < 0.015 02/19/19 03:12: Lactic Acid 0.8 02/19/19 03:12: Magnesium 2.0 02/19/19 05:25: Urine Color Yellow, Urine Clarity Clear, Urine pH 5.0, Ur Specific [place] 1.020, Urine Protein Negative, Urine Glucose (UA) Normal, Urine Ketones Negative, Urine Occult Blood Negative, Urine Nitrite Negative, Urine Bilirubin 3 H, Urine Urobilinogen Normal, Ur Leukocyte Esterase 25 H, Urine RBC 0 SEEN, Urine WBC 0 SEEN Rhythm: EKG: ECHO: Stress Test: Cardiac Cath: PCI: CT Surgery: Holter monitor: EPS: PPM: CXR: Chest CT Scan: Assessment/Plan Addendum: Date: 02-19-19 The patient was interviewed and examined independently. The patient states that he has been told in the past that he has an abnormal/irregular heartbeat. He believes it has been present for a long period of time. He does not recall being told he has any other definitive cardiovascular events/diagnosis. The patient has denied ongoing chest discomfort or any episodes of worsening shortness of breath or dyspnea. He has not had orthopnea or PND. There is been no near syncope or syncope. He states he does have based upon concerns of his cannot feel my feet issues multiple following issues which have led to fractures on more than one occasion. He is currently recuperating from such an event. He states he has always been heavy . He states at age 5 he weighed 114 pounds. He states by [employer] he weighed over 300 pounds and by the time he graduated from high school he weighed over 500 pounds. He states his maximal weight was 795 pounds before his gastro intestinal procedure was performed. He states he spends most of his time sedentary playing games on his smart phone or watching television. When he does walk he has to use a cane or a walker to try and stabilize himself. His examination does demonstrate a 58-year-old morbidly obese white male. His lungs are clear to auscultation percussion bilaterally at this time. His cardiac rhythm demonstrates an irregular rhythm with a normal S1 and S2 with diminished heart tones. His abdomen demonstrates positive bowel sounds being soft and nontender with no acute findings. His laboratory studies have been reviewed. It is noted that his opponent I level was negative. His creatinine level was elevated. His potassium was within normal range at 4.4. His cardiac rhythm has demonstrated atrial flutter. His ECG appeared to demonstrate atrial flutter with variable ventricular conduction with left axis deviation low voltage QRS and poor R wave progression as well as an inferior GA of indeterminate age cannot be excluded and an anterolateral GA of indeterminate age cannot be excluded. His chest x-ray has demonstrated no acute cardiopulmonary disease process. He has had a previous pharmacologic stress nuclear imaging study as noted above. He has never undergone invasive cardiovascular evaluation. At the present time he does have atrial flutter. The etiology may be multifactorial. He has been in the past on rate control therapy which is been on hold at this time secondary to concerns of hypotension. He has been on anticoagulant therapy secondary to history of underlying DVT/IVC filter placement. His anticoagulation level was considered to be subtherapeutic with his atrial dysrhythmia, however, with respect to his renal insufficiency it may be appropriate at this time although still may need to be further adjusted going forward based upon his clinical course, etc. At the moment he will continue cardiovascular evaluation. He will continue cardiac rhythm monitoring. He is been requested to have a transthoracic echocardiogram performed in attempt to evaluate his atrial size and ventricular wall motion systolic function. He will continue medical therapy. At the moment medications that may decrease his blood pressure being held. He is receiving IV fluids. Hopefully as his blood pressure stabilizes and as his renal function improves his medical regimen can be adjusted. Over time depending upon his clinical course he may need to be considered for an attempt at regaining sinus rhythm with synchronized biphasic DC cardioversion. Depending upon the length of anticoagulation prior to such a procedure he may or may not need YOLIE guidance. The above was discussed with the patient. He was agreeable to this approach. The patient's case was discussed and reviewed with Mitchell Rodrigues NP. This note was generated using a voice recognition system and there may be incorrect words, spelling or punctuation that were not noted when reviewing the office note prior to saving.
[2019-02-19] MEDS: oxyCODONE 5 MG Tablet PO ×2 (11:43→19:49)
[2019-02-19] MEDS: Gabapentin 100 MG Capsule PO ×2 (13:32→16:08)
[2019-02-19] MEDS: Rivaroxaban 10 MG Tablet PO (16:08)
[2019-02-19] MEDS: Tamsulosin HCl 0.4 MG Capsule PO (16:10)
[2019-02-19] MEDS: Venlafaxine HCl 25 MG Tablet PO (21:05)
[2019-02-19] MEDS: Nortriptyline 25 MG Capsule 50 MG PO (21:05)
[2019-02-19] MEDS: Sertraline 100 MG Tablet PO (21:07)
[2019-02-20] VITALS (11 sets, daily range): BP systolic 97–115; BP diastolic 60–74; PULSE 91–116; RESP 16–18; TEMP 36.6–37.2; O2SAT 90–98
[2019-02-20] MEDS: oxyCODONE 5 MG Tablet PO (03:09)
[2019-02-20] MEDS: Dicyclomine 10 MG Capsule PO ×3 (07:59→15:56)
[2019-02-20] MEDS: Nystatin Powder 15gm Bottle 1 APPLIC TOPICAL ×2 (07:59→20:51)
[2019-02-20] MEDS: Gabapentin 100 MG Capsule PO ×3 (07:59→15:56)
[2019-02-20] MEDS: Pantoprazole Sodium 40 MG Tablet PO (07:59)
[2019-02-20] MEDS: Calcium Carb/Vitamin D 1 TABLET Tablet PO ×2 (07:59→15:56)
[2019-02-20] MEDS: clonazePAM 1 MG Tablet PO ×2 (07:59→20:52)
[2019-02-20] MEDS: Ferrous Sulfate 325 MG Tablet PO (07:59)
[2019-02-20] MEDS: Venlafaxine HCl 25 MG Tablet 50 MG PO (07:59)
--- NOTE | 2019-02-20 10:33 | PCM.PN.CARD ---
Subjectve: The patient is awake and alert. He has been up with OT/PT. He has no new acute cardiovascular complaints. Objective: Vital Signs Temp Pulse Resp BP Pulse Ox 98.2 F 99 16 97/62 96 02/20/19 09:05 02/20/19 09:05 02/20/19 09:05 02/20/19 09:05 02/20/19 09:05 Oxygen Delivery Method Room Air Weight: 399 lb 0.587 oz Body Mass Index (BMI) 51.2 Intake and Output for Last 24 Hours 02/18/19 02/19/19 02/20/19 23:59 23:59 23:59 Intake Total 1345 / 1345 619 / 619 Output Total 3125 / 3125 2850 / 2850 Balance -1780 / -1780 -223 / -2231 General: Awake, Alert, Oriented x 3, Cooperative, No Acute Distress, Obese HEENT: Atraumatic, Normocephalic, PERRL, EOMI, Sclera Non Icteric Oral: Moist Mucosa Neck: Supple, Good ROM, No JVD Lungs: Clear to auscultation Cardiovascular: Irregular Rhythm, Normal S1, Normal S2 Abdomen: Bowel Sounds Present, Soft, Non Tender, Obese Psych/Mental Status: Appropriate Rhythm: Atrial flutter ECHO: Interpretation Summary The study was technically difficult. Contrast injection was performed. Based upon the 2D echocardiographic contrast enhanced images obtained there appears to be grossly normal left ventricular size, wall motion, and systolic function. The estimated ejection fraction is 55 %. Trivial mitral valve insufficiency. Mild tricuspid valve insufficiency. Right ventricular systolic pressure estimated to be 32 mmHg. Medical Necessity - Tobacco Use Smoking Status: Former smoker Assessment/Plan 1. Atrial fibrillation/flutter The patient remains in his underlying atrial dysrhythmia. His rate appears to be controlled. He continues on medical management with respect anticoagulation adjusted for his renal insufficiency. At the moment he will continue to be followed with medication adjustment as deemed appropriate. If his rate increases, and his blood pressure allows, he can resume rate limiting medication. As his renal function changes that his anticoagulant status can be changed. At some point in time the future he can be considered for further evaluation with synchronized biphasic DC cardioversion in an attempt to regain sinus rhythm. 2. Hypotension The blood pressure remains somewhat low. He continues evaluation care per internal medicine. He has been receiving IV fluids as there has been concern as to whether or not this is dehydration related especially noting his renal insufficiency. 3. Renal insufficiency He did have elevated creatinine levels. As he receives IV fluid his renal function will need to be followed. Overall he will continue his ongoing medical evaluation and care. This note was generated with [employer] dictation software. It may contain incorrect words, spelling, and punctuation that were not noted in checking the note before signing.
--- NOTE | 2019-02-20 10:53 | CASEMGMT ---
Social Work Received phone call from Thalia that pt has [employer] and will need a precert prior to return to facility. Updated clinicals faxed and requested precert be started. Plan: [facility], pending insurance precert PIERRE Choe
--- NOTE | 2019-02-20 11:10 | CASEMGMT ---
Social Work Second call from Thalia at [facility] received stating she made a mistake and pt is actually regular Medicaid and can return to the facility when medically ready without a precert. Plan: [facility], when medically ready PIERRE Choe
--- NOTE | 2019-02-20 13:09 | ART_ITS ---
Reason For Study: Cold feet. Cyanosed in ED Procedure A bilateral lower extremity continuous wave Doppler with analog waveform analysis and ankle brachial indexes. Left Segmental Pressures Left brachial= 109mmHg. Left posterior tibial artery = 144mmHg. Left dorsalis pedis artery = 139mmHg. Left digit = 76 mmHg. The left dorsalis pedis waveforms are triphasic. The left posterior tibial artery waveforms are triphasic. Right Segmental Pressures Right posterior tibial artery = 175mmHg. Right dorsalis pedis artery = 156mmHg. Right digit = 100 mmHg. The right dorsalis pedis waveforms are triphasic. The right posterior tibial artery waveforms are triphasic. Indices The right ankle brachial index by the dorsalis pedis is 1.43. The right ankle brachial index by the posterior tibial artery is 1.61. The right digital-brachial index is 0.92. The left ankle brachial index by the dorsalis pedis is 1.28. The left ankle brachial index by the posterior tibial artery is 1.32. The left digital-brachial index is 0.7. Interpretation Summary Triphasic Doppler waveforms are noted at ankle level bilaterally. Pulse-volume recording waveform amplitudes are satisfactory at ankle and digital levels bilaterally. The resting right ankle- brachial index is supra-normal. The resting left ankle-brachial index is normal. Digital-brachial indices are bilaterally normal. There is no evidence of significant arterial occlusive disease in the lower extremities bilaterally. However, there is evidence of arterial calcification in the right lower extremity. Ordering Physician: Sher Lockhart Referring Physician: Santiago Beard Performed By: Paty Wynn RVT
[2019-02-20 13:25] LABS: Absolute Lymphocyte Count 1.31 X10^3/ul (0.83-4.51); Absolute Neutrophil Count 3.5 X10^3/uL (2.0-7.7); Basophil# 0.01 X10^3/uL; Basophil% 0.2 % (0-1); Eosinophil# 0.13 X10^3/uL; Eosinophils% 2.5 % (0-5); Hematocrit 37.8 % (40-54); Hemoglobin 13.1 g/dl (13.0-16.5); Lymphocyte # 1.31 X10^3/ul (4.0); Lymphocyte % 24.9 % (19-41); Mean Corp Hgb Conc 34.7 g/gl (32-36); Mean Corpuscular Hgb 30.9 pg (27.0-32.0); Mean Corpuscular Volume 89.2 fL (80-94); Monocyte# 0.35 X10^3/uL; Monocyte% 6.6 % (0-10); Neutrophil # 3.46 X10^3/uL (2.7-7.7); Neutrophil % 65.6 % (47-70); Platelet Count 154 K/mm3 (150-450); RBC Distribution Width CV 13.2 % (11.6-14.6); RBC Distribution Width SD 42.6 fl (35.1-43.9); Red Blood Count 4.24 M/mm3 (4.6-6.2); White Blood Count 5.3 K/mm3 (4.4-11.0)
[2019-02-20 13:33] LABS: POSITIVE COUNT NO; POSITIVE DIFFERENTIAL NO; POSITIVE MORPHOLOGY NO
--- NOTE | 2019-02-20 13:55 | CASEMGMT ---
Social Work Per physician, pt may be ready for d/c tomorrow. Phone call to Thalia at [facility] and they are able to accept pt back tomorrow. Green sheet and transportation forms placed on chart. Plan: [facility], when medically ready PIERRE Choe
[2019-02-20 14:09] LABS: Anion Gap 6 (5-15); BUN 23 mg/dL (7-18); BUN/Creat Ratio 29.3 RATIO (10-20); Calcium,Total 8.5 mg/dL (8.5-10.1); Chloride 105 mmol/L (98-107); Creatinine, Serum 0.79 mg/dL (0.70-1.30); EST Glomerular Filtration Rate 108 mL/min (>60); Est Glom Filt Rate - Afr Amer 131 mL/min (>60); Estimated Creatinine Clearance 119.95 ml/min; Glucose 103 mg/dL (74-106); Potassium 4.3 mmol/L (3.5-5.1); Sodium Level 135 mmol/L (136-145)
[2019-02-20] MEDS: Acetaminophen 325 MG Tablet 650 MG PO (15:56)
[2019-02-20] MEDS: Tamsulosin HCl 0.4 MG Capsule PO (15:56)
[2019-02-20] MEDS: Rivaroxaban 10 MG Tablet PO (15:56)
--- NOTE | 2019-02-20 16:21 | PCM.PN.HOSP ---
Patient Problems: Active and Suspected Problems (Last Reviewed 02/19/19 @ 08:09 by Sunil Parker MD) A-fib (Acute) Atrial flutter (Acute) Subjective: Patient heart rate is still in the 90s 200s. Last 116, irregular. Pulse ox 98% on room air. Patient complaining of cold leg. He further states he legs are exposed to room air it becomes cold. Currently warm but his feet were cold and dusky blue in the ER. Vitals/I&O's: Vital Signs Temp Pulse Resp BP Pulse Ox 98.1 F 116 H 16 115/71 98 02/20/19 14:48 02/20/19 15:15 02/20/19 14:48 02/20/19 14:48 02/20/19 14:48 Oxygen Delivery Method Room Air Weight: 399 lb 0.587 oz Body Mass Index (BMI) 51.2 Intake and Output for Last 24 Hours 02/18/19 02/19/19 02/20/19 23:59 23:59 23:59 Intake Total 1345 / 1345 619 / 619 Output Total 3125 / 3125 3650 / 3650 Balance -1780 / -1780 -3031 / -3031 General: Alert, Oriented x3, Cooperative HEENT: Atraumatic, PERRLA, EOMI, Normocephalic Neck: Supple, No JVD, Negative Carotid Bruits Lungs: Clear to auscultation, No rhonchi, No wheeze, No rales, Diminished - Air entry is diminished on both lung bases. Cardiovascular: Normal S1, Normal S2, No murmurs Abdomen: Bowel Sounds Present, Soft, Non Tender, Non-Distended Extremities: Capillary Refill Less than 3 Seconds, Diminished Peripheral Pulses, Edema, - - Difficult to palpate peripheral pulses secondary to morbid obesity Skin: No rashes, No breakdown Musculoskeletal: No Tenderness to Palpation of Joints or Extremities, Arthritic Changes Neurological: Cranial nerves II-XII grossly intact, Deep Tendon Reflexes 2+/4 and Symmetrical, Neuro grossly intact Psych/Mental Status: Normal Affect, Appropriate Laboratory Results 02/20/19 13:18: WBC 5.3, RBC 4.24 L, Hgb 13.1, Hct 37.8 L, MCV 89.2, MCH 30.9, MCHC 34.7, RDW 13.2, RDW Differential 42.6, Plt Count 154, MPV 10.0, Immature Gran % (Auto) 0.200, Neut % (Auto) 65.6, Lymph % (Auto) 24.9, Taney % (Auto) 6.6, Eos % (Auto) 2.5, Baso % (Auto) 0.2, Absolute Neuts (auto) 3.5, Absolute Lymphs (auto) 1.31, Total Counted Not Reportable 02/20/19 13:18: Sodium 135 L, Potassium 4.3, Chloride 105, Carbon Dioxide 24.0, Anion Gap 6, BUN 23 H, Creatinine 0.79, Estim Creat Clear Calc 119.95, Est GFR (MDRD) Af Amer 131, Est GFR (MDRD) Non-Af 108, BUN/Creatinine Ratio 29.3 H, Glucose 103, Calcium 8.5 Current Medications Acetaminophen (Tylenol) 650 mg PO Q6H PRN PRN PRN Reason: Mild pain 1-3/Temp > 100.7 F Last Admin: 02/20/19 15:56 Dose: 650 mg Documented by: Calcium/Vitamin D (Os-Ronny 500mg + D) [facility] Last Admin: 02/20/19 15:56 Dose: 1 tablet Documented by: Cholecalciferol (Vitamin D) 1,000 unit PO DAILY [facility] Last Admin: 02/20/19 07:59 Dose: 1,000 unit Documented by: Clonazepam (Klonopin) 1 mg PO BID [facility] Last Admin: 02/20/19 07:59 Dose: 1 mg Documented by: Cyclobenzaprine HCl (Flexeril) 10 mg PO TID PRN PRN PRN Reason: MUSCLE RELAXER Dextrose (D50w Syringe) 0 gm IV X1 PRN; Protocol PRN Reason: Hypoglycemia Dicyclomine HCl (Bentyl) 10 mg PO TIDCM [facility] Last Admin: 02/20/19 15:56 Dose: 10 mg Documented by: Fentanyl (Duragesic Patch) 25 mcg TRANSDERM. Q72H [facility] Ferrous Sulfate (Ferrous Sulfate) 325 mg PO DAILY@0800 [facility] Last Admin: 02/20/19 07:59 Dose: 325 mg Documented by: Gabapentin (Neurontin) 100 mg PO TIDCM [facility] Last Admin: 02/20/19 15:56 Dose: 100 mg Documented by: Glucagon () 1 mg IM .X1 PRN PRN Reason: Hypoglycemia Magnesium Hydroxide (Milk Of Magnesia) 30 ml PO DAILY PRN PRN PRN Reason: Constipation Nortriptyline HCl (Pamelor) 50 mg PO [facility] Last Admin: 02/19/19 21:05 Dose: 50 mg Documented by: Nystatin (Mycostatin Powder) 1 applic TOPICAL BID [facility]; Protocol Last Admin: 02/20/19 07:59 Dose: 1 applicatio Documented by: Ondansetron HCl (Zofran) 4 mg IV Q8H PRN PRN PRN Reason: Nausea Oxycodone HCl (Oxyir) 5 - 10 mg PO Q6H PRN PRN PRN Reason: PAIN Last Admin: 02/20/19 03:09 Dose: 10 mg Documented by: Pantoprazole Sodium (Protonix) 40 mg PO DAILY [facility] Last Admin: 02/20/19 07:59 Dose: 40 mg Documented by: Polyethylene Glycol (Miralax) 17 gm PO DAILY [facility] Last Admin: 02/20/19 07:59 Dose: Not Given Documented by: Rivaroxaban (Xarelto) 10 mg PO DAILY@1700 [facility] Last Admin: 02/20/19 15:56 Dose: 10 mg Documented by: Sertraline [facility] ([facility]oloft) [facility] Last Admin: 02/19/19 21:07 Dose: 100 mg Documented by: Sodium Chloride () 10 - 40 ml IV UD PRN PRN Reason: SALINE FLUSH Tamsulosin HCl (Flomax) 0.4 mg PO DAILY@1730 [facility] Last Admin: 02/20/19 15:56 Dose: 0.4 mg Documented by: Venlafaxine HCl (Effexor) 25 mg PO QHS [facility] Last Admin: 02/19/19 21:05 Dose: 25 mg Documented by: Venlafaxine HCl (Effexor) 50 mg PO BREAKFAST [facility] Last Admin: 02/20/19 07:59 Dose: 50 mg Documented by: Medical Necessity - Tobacco Use Smoking Status: Former smoker Assessment/Plan All Active Problems (Last Reviewed 02/19/19 @ 08:09 by Sunil Parker MD) A-fib (Acute) Atrial flutter (Acute) Left fibular fracture (Acute) Hyponatremia (Acute) Abdominal wall pain (Acute) The patient is a 58 year old M with a significant history of super morbid obesity that is post gastric bypass surgery was admitted from the [facility] after found to have twitchings, concern for stroke, feeling weak and sent to ER. In ER, he was found to have atrial flutter. EKG shows atrial flutter with LAD. Patient also has history of hypertension, DVT on Xarelto 10 mg daily. His both feet were felt to be cold and dusky hue cyanosis in ER. Patient was found hypotensive and received IV normal saline boluses. [employer] was further consulted for atrial flutter. 1. Hypotension, possible secondary to atrial flutter/fibrillation, new onset. EKG shows controlled ventricular response. Patient blood pressure in ER has been in the 90s. Patient blood pressure has improved. Continue holding lisinopril, Lasix, HCTZ and baclofen patient is morbidly obese and may be cough mistreating. Patient is DNR CC therefore admitted to PCU as he is against chest compression, intubation, vent support, central line or vasopressors. Discontinue IV fluid. 2. Atrial flutter with RVR: Currently heart rate is between 90s to 110s. Started on metoprolol 50 mg twice daily. Hold if systolic blood pressure less than 90 mmHg. Prior EKG of February 2019 was normal sinus rhythm. TSH and, potassium and magnesium were normal. 3. Acute kidney injury with retention: Patient baseline creatinine is less than 1. Admitted with creatinine 2.76. BUN 69. Sodium and chloride low. Possible prerenal/postrenal. Remove Aldana catheter. Monitor kidney function and electrolytes. And is well-hydrated. BUN/creatinine 23/0.79. ALIA resolved. 4. Other chronic comorbidities include chronic pain/fibromyalgia anxiety and depression and super morbid obesity. DVT Prophylaxis: On Xarelto and with IVC Filter. Laboratory Results 02/20/19 13:18: WBC 5.3, RBC 4.24 L, Hgb 13.1, Hct 37.8 L, MCV 89.2, MCH 30.9, MCHC 34.7, RDW 13.2, RDW Differential 42.6, Plt Count 154, MPV 10.0, Immature Gran % (Auto) 0.200, Neut % (Auto) 65.6, Lymph % (Auto) 24.9, Taney % (Auto) 6.6, Eos % (Auto) 2.5, Baso % (Auto) 0.2, Absolute Neuts (auto) 3.5, Absolute Lymphs (auto) 1.31, Total Counted Not Reportable 02/20/19 13:18: Sodium 135 L, Potassium 4.3, Chloride 105, Carbon Dioxide 24.0, Anion Gap 6, BUN 23 H, Creatinine 0.79, Estim Creat Clear Calc 119.95, Est GFR (MDRD) Af Amer 131, Est GFR (MDRD) Non-Af 108, BUN/Creatinine Ratio 29.3 H, Glucose 103, Calcium 8.5 Active Medications Acetaminophen (Tylenol) 650 mg PO Q6H PRN PRN PRN Reason: Mild pain 1-3/Temp > 100.7 F Last Admin: 02/20/19 15:56 Dose: 650 mg Documented by: Calcium/Vitamin D (Os-Ronny 500mg + D) [facility] Last Admin: 02/20/19 15:56 Dose: 1 tablet Documented by: Cholecalciferol (Vitamin D) 1,000 unit PO DAILY [facility] Last Admin: 02/20/19 07:59 Dose: 1,000 unit Documented by: Clonazepam (Klonopin) 1 mg PO BID [facility] Last Admin: 02/20/19 07:59 Dose: 1 mg Documented by: Cyclobenzaprine HCl (Flexeril) 10 mg PO TID PRN PRN PRN Reason: MUSCLE RELAXER Dextrose (D50w Syringe) 0 gm IV X1 PRN; Protocol PRN Reason: Hypoglycemia Dicyclomine HCl (Bentyl) 10 mg PO TIDCM [facility] Last Admin: 02/20/19 15:56 Dose: 10 mg Documented by: Fentanyl (Duragesic Patch) 25 mcg TRANSDERM. Q72H [facility] Ferrous Sulfate (Ferrous Sulfate) 325 mg PO DAILY@0800 [facility] Last Admin: 02/20/19 07:59 Dose: 325 mg Documented by: Gabapentin (Neurontin) 100 mg PO TIDCM [facility] Last Admin: 02/20/19 15:56 Dose: 100 mg Documented by: Glucagon () 1 mg IM .X1 PRN PRN Reason: Hypoglycemia Magnesium Hydroxide (Milk Of Magnesia) 30 ml PO DAILY PRN PRN PRN Reason: Constipation Nortriptyline HCl (Pamelor) 50 mg PO [facility] Last Admin: 02/19/19 21:05 Dose: 50 mg Documented by: Nystatin (Mycostatin Powder) 1 applic TOPICAL BID [facility]; Protocol Last Admin: 02/20/19 07:59 Dose: 1 applicatio Documented by: Ondansetron HCl (Zofran) 4 mg IV Q8H PRN PRN PRN Reason: Nausea Oxycodone HCl (Oxyir) 5 - 10 mg PO Q6H PRN PRN PRN Reason: PAIN Last Admin: 02/20/19 03:09 Dose: 10 mg Documented by: Pantoprazole Sodium (Protonix) 40 mg PO DAILY [facility] Last Admin: 02/20/19 07:59 Dose: 40 mg Documented by: Polyethylene Glycol (Miralax) 17 gm PO DAILY [facility] Last Admin: 02/20/19 07:59 Dose: Not Given Documented by: Rivaroxaban (Xarelto) 10 mg PO DAILY@1700 [facility] Last Admin: 02/20/19 15:56 Dose: 10 mg Documented by: Sertraline HCl (Zoloft) 100 mg PO QHS [facility] Last Admin: 02/19/19 21:07 Dose: 100 mg Documented by: Sodium Chloride () 10 - 40 ml IV UD PRN PRN Reason: SALINE FLUSH Tamsulosin HCl (Flomax) 0.4 mg PO DAILY@1730 [facility] Last Admin: 02/20/19 15:56 Dose: 0.4 mg Documented by: Venlafaxine HCl (Effexor) 25 mg PO QHS [facility] Last Admin: 02/19/19 21:05 Dose: 25 mg Documented by: Venlafaxine HCl (Effexor) 50 mg PO BREAKFAST [facility] Last Admin: 02/20/19 07:59 Dose: 50 mg Documented by: Code Visit Inpatient E&M: [id number] [facility] L[facility]
[2019-02-20] MEDS: Metoprolol Tartrate 50 MG Tablet PO (17:59)
[2019-02-20] MEDS: Nortriptyline 25 MG Capsule 50 MG PO (20:52)
[2019-02-20] MEDS: Sertraline 100 MG Tablet PO (20:52)
[2019-02-20] MEDS: Venlafaxine HCl 25 MG Tablet PO (20:52)
[2019-02-21] VITALS (9 sets, daily range): BP systolic 114–145; BP diastolic 74–86; PULSE 88–105; RESP 16–17; TEMP 36.6–37.2; O2SAT 92–98
[2019-02-21] MEDS: oxyCODONE 5 MG Tablet PO ×3 (00:03→21:11)
[2019-02-21 08:01] LABS: Anion Gap 8 (5-15); BUN 16 mg/dL (7-18); Calcium,Total 8.7 mg/dL (8.5-10.1); Chloride 103 mmol/L (98-107); EST Glomerular Filtration Rate 106 mL/min (>60); Est Glom Filt Rate - Afr Amer 128 mL/min (>60); Estimated Creatinine Clearance 118.45 ml/min; Glucose 92 mg/dL (74-106); Potassium 4.2 mmol/L (3.5-5.1); Sodium Level 138 mmol/L (136-145)
[2019-02-21] MEDS: Calcium Carb/Vitamin D 1 TABLET Tablet PO ×2 (09:07→15:11)
[2019-02-21] MEDS: Metoprolol Tartrate 50 MG Tablet PO ×2 (09:07→21:10)
[2019-02-21] MEDS: clonazePAM 1 MG Tablet PO ×2 (09:07→21:10)
[2019-02-21] MEDS: Nystatin Powder 15gm Bottle 1 APPLIC TOPICAL ×2 (09:08→21:11)
[2019-02-21] MEDS: Dicyclomine 10 MG Capsule PO ×3 (09:08→15:11)
[2019-02-21] MEDS: Venlafaxine HCl 25 MG Tablet 50 MG PO (09:08)
[2019-02-21] MEDS: Pantoprazole Sodium 40 MG Tablet PO (09:08)
[2019-02-21] MEDS: Gabapentin 100 MG Capsule PO ×3 (09:08→15:11)
[2019-02-21] MEDS: Ferrous Sulfate 325 MG Tablet PO (09:08)
--- NOTE | 2019-02-21 11:10 | PCM.TXEXTCAR ---
- Diet 02/19/19 08:25 Diet: Cardiac: Calorie-Controlled Food consistency:: Regular Liquid Consistency:: Regular/Thin How many daily calories?: 1800 calorie - Routine Orders/Code Status Suppository Type: Dulcolax 10mg Suppository Frequency: Daily PRN Routine Lab Work: CBC, BMP - on 02/25/19 Code Status: DNRCC - Therapies Weight Bearing: Weight bearing as tolerated Extremity Affected:: Bilateral Lower Physical Therapy: Eval and Treat Occupational Therapy: Eval and Treat Speech Therapy: Eval and Treat - Allergies/Procedures Done in Hospital Allergies/Adverse Reactions: Allergies duloxetine [From Cymbalta] Adverse Reaction (Verified 02/19/19 02:33) Other SERATONIN SYNDROME - Type of Care/Length of Stay Estimated LOS: Convalescent Care Less Than 30 days Type of Care Needed: Skilled Rehab Potential: Good Prognosis: Good - Additional Orders/Day of Discharge Day of Discharge: 02/21/19 - Dietary and Speech Recommendations Dietitian Recommendations/Changes: Recommend diet change to 2200 calorie controlled, cardiac diet. - Follow Up Care Primary Care Physician: Kieran Beard MD [Primary Care Provider] - Please follow up with your Primary Care Physician in: in 1-2 week Please Follow Up With: Renan Bruce MD When: in 2-3 weeks
--- NOTE | 2019-02-21 12:04 | PCM.PN.CARD ---
Subjectve: The patient is awake and alert. He has been participating with OT/PT. He has had no new acute cardiac symptoms. Objective: Vital Signs Temp Pulse Resp BP Pulse Ox 97.9 F 99 16 114/86 H 98 02/21/19 08:45 02/21/19 09:07 02/21/19 08:45 02/21/19 08:45 02/21/19 08:45 Oxygen Delivery Method Room Air Weight: 399 lb 0.587 oz Body Mass Index (BMI) 51.2 Intake and Output for Last 24 Hours 02/19/19 02/20/19 02/21/19 23:59 23:59 23:59 Intake Total 1345 / 1345 1339 / 1339 360 / 360 Output Total 3125 / 3125 4575 / 4575 350 / 350 Balance -1780 / -1780 -3236 / -3236 General: Awake, Alert, Oriented x 3, Cooperative, Obese HEENT: Atraumatic, Normocephalic, PERRL, EOMI, Sclera Non Icteric Oral: Moist Mucosa Neck: Supple, Good ROM, No JVD Lungs: Clear to auscultation Cardiovascular: Irregular Rhythm, Normal S1, Normal S2 Abdomen: Bowel Sounds Present, Soft, Obese Psych/Mental Status: Appropriate 02/20/19 13:18: WBC 5.3, RBC 4.24 L, Hgb 13.1, Hct 37.8 L, MCV 89.2, MCH 30.9, MCHC 34.7, RDW 13.2, RDW Differential 42.6, Plt Count 154, MPV 10.0, Immature Gran % (Auto) 0.200, Neut % (Auto) 65.6, Lymph % (Auto) 24.9, Clay % (Auto) 6.6, Eos % (Auto) 2.5, Baso % (Auto) 0.2, Absolute Neuts (auto) 3.5, Total Counted Not Reportable 02/20/19 13:18: Sodium 135 L, Potassium 4.3, Chloride 105, Carbon Dioxide 24.0, Anion Gap 6, BUN 23 H, Creatinine 0.79, Est GFR (MDRD) Af Amer 131, Est GFR (MDRD) Non-Af 108, BUN/Creatinine Ratio 29.3 H, Glucose 103, Calcium 8.5 02/21/19 06:50: Sodium 138, Potassium 4.2, Chloride 103, Carbon Dioxide 27.0, Anion Gap 8, BUN 16, Creatinine 0.80, Est GFR (MDRD) Af Amer 128, Est GFR (MDRD) Non-Af 106, BUN/Creatinine Ratio 20.0, Glucose 92, Calcium 8.7 Rhythm: Atrial flutter Medical Necessity - Tobacco Use Smoking Status: Former smoker Assessment/Plan 1. Atrial fibrillation/flutter The patient remains in his underlying atrial dysrhythmia. His blood pressure has improved he has been placed back on rate limiting therapy. His anticoagulants will be adjusted based upon his renal function. 2. Hypotension The blood pressure appears improved. He will continue medical management as deemed appropriate. 3. Renal insufficiency He did have elevated creatinine levels. His creatinine levels have been improving. This will allow adjustment of his anticoagulant therapy. Overall he will continue his ongoing medical evaluation and care. Comment: The above was discussed and reviewed with Dr. Lockhart. This note was generated with [employer] dictation software. It may contain incorrect words, spelling, and punctuation that were not noted in checking the note before signing.
[2019-02-21] MEDS: fentaNYL 25 MCG Patch TRANSDERM. (12:05)
--- NOTE | 2019-02-21 12:30 | NURSING ---
Radha Nelson, [facility] Noyola and [facility]ia fel[facility] called for transport. No squads available with bariatric cot. Set up transportation for 02/22/19 at 10am.
[2019-02-21] MEDS: Tamsulosin HCl 0.4 MG Capsule PO (15:11)
[2019-02-21] MEDS: Rivaroxaban 20 MG Tablet PO (15:11)
--- NOTE | 2019-02-21 15:25 | PCM.PN.HOSP ---
Patient Problems: Active and Suspected Problems (Last Reviewed 02/19/19 @ 08:09 by Sunil Parker MD) A-fib (Acute) Atrial flutter (Acute) Subjective: Patient heart rate and blood pressure is controlled. Patient was put back on metoprolol 50 mg twice daily. Patient kidney function improved. Started on Xarelto 20 mg daily. Patient was seen by editor greeting card and discussed with him. Patient supposed to go to SNF today but due to logistic problem of transportation, discharge is being held. Vitals/I&O's: Vital Signs Temp Pulse Resp BP Pulse Ox 97.9 F 99 16 114/86 H 98 02/21/19 08:45 02/21/19 09:07 02/21/19 08:45 02/21/19 08:45 02/21/19 08:45 Oxygen Delivery Method Room Air Weight: 399 lb 0.587 oz Body Mass Index (BMI) 51.2 Intake and Output for Last 24 Hours 02/19/19 02/20/19 02/21/19 23:59 23:59 23:59 Intake Total 1345 / 1345 1339 / 1339 840 / 840 Output Total 3125 / 3125 4575 / 4575 850 / 850 Balance -1780 / -1780 -3236 / -3236 -10 / -10 General: Alert, Oriented x3, Cooperative, - - Super morbid obesity HEENT: Atraumatic, PERRLA, EOMI, Normocephalic Neck: Supple, No JVD, Negative Carotid Bruits Lungs: Clear to auscultation, No rhonchi, No wheeze, No rales, Diminished - Air entry is diminished on bilateral lung bases. Cardiovascular: Regular rate, Regular Rhythm, Normal S1, Normal S2, No murmurs, Irregular Rate Abdomen: Bowel Sounds Present, Soft, Non Tender, Non-Distended Extremities: Capillary Refill Less than 3 Seconds, Diminished Peripheral Pulses, Edema Skin: No rashes, No breakdown Musculoskeletal: No Tenderness to Palpation of Joints or Extremities Neurological: Cranial nerves II-XII grossly intact, Deep Tendon Reflexes 2+/4 and Symmetrical, Neuro grossly intact Psych/Mental Status: Normal Affect, Appropriate Laboratory Results 02/21/19 06:50: Sodium 138, Potassium 4.2, Chloride 103, Carbon Dioxide 27.0, Anion Gap 8, BUN 16, Creatinine 0.80, Estim Creat Clear Calc 118.45, Est GFR (MDRD) Af Amer 128, Est GFR (MDRD) Non-Af 106, BUN/Creatinine Ratio 20.0, Glucose 92, Calcium 8.7 Current Medications Acetaminophen (Tylenol) 650 mg PO Q6H PRN PRN PRN Reason: Mild pain 1-3/Temp > 100.7 F Last Admin: 02/20/19 15:56 Dose: 650 mg Documented by: Calcium/Vitamin D (Os-Ronny 500mg + D) [facility] Last Admin: 02/21/19 15:11 Dose: 1 tablet Documented by: Cholecalciferol (Vitamin D) 1,000 unit PO DAILY [facility] Last Admin: 02/21/19 09:07 Dose: 1,000 unit Documented by: Clonazepam (Klonopin) 1 mg PO BID [facility] Last Admin: 02/21/19 09:07 Dose: 1 mg Documented by: Cyclobenzaprine HCl (Flexeril) 10 mg PO TID PRN PRN PRN Reason: MUSCLE RELAXER Dextrose (D50w Syringe) 0 gm IV X1 PRN; Protocol PRN Reason: Hypoglycemia Dicyclomine HCl (Bentyl) 10 mg PO TIDCM [facility] Last Admin: 02/21/19 15:11 Dose: 10 mg Documented by: Fentanyl (Duragesic Patch) 25 mcg TRANSDERM. Q72H [facility] Fentanyl (Duragesic Patch) 25 mcg TRANSDERM. Q72H [facility] Last Admin: 02/21/19 12:05 Dose: 25 mcg Documented by: Ferrous Sulfate (Ferrous Sulfate) 325 mg PO DAILY@0800 [facility] Last Admin: 02/21/19 09:08 Dose: 325 mg Documented by: Gabapentin (Neurontin) 100 mg PO TIDCM [facility] Last Admin: 02/21/19 15:11 Dose: 100 mg Documented by: Glucagon () 1 mg IM .X1 PRN PRN Reason: Hypoglycemia Magnesium Hydroxide (Milk Of Magnesia) 30 ml PO DAILY PRN PRN PRN Reason: Constipation Metoprolol Tartrate (Lopressor (Beta Remi)) 50 mg PO BID [facility] Last Admin: 02/21/19 09:07 Dose: 50 mg Documented by: Nortriptyline HCl (Pamelor) 50 mg PO HS [facility] Last Admin: 02/20/19 20:52 Dose: 50 mg Documented by: Nystatin (Mycostatin Powder) 1 applic TOPICAL BID [facility]; Protocol Last Admin: 02/21/19 09:08 Dose: 1 applicatio Documented by: Ondansetron HCl (Zofran) 4 mg IV Q8H PRN PRN PRN Reason: Nausea Oxycodone HCl (Oxyir) 5 - 10 mg PO Q6H PRN PRN PRN Reason: PAIN Last Admin: 02/21/19 09:07 Dose: 5 mg Documented by: Pantoprazole Sodium (Protonix) 40 mg PO DAILY [facility] Last Admin: 02/21/19 09:08 Dose: 40 mg Documented by: Polyethylene Glycol (Miralax) 17 gm PO DAILY [facility] Last Admin: 02/21/19 09:08 Dose: Not Given Documented by: Rivaroxaban (Xarelto) 20 mg PO 1700 [facility] Last Admin: 02/21/19 15:11 Dose: 20 mg Documented by: Sertraline HCl (Zoloft) 100 mg PO QHS [facility] Last Admin: 02/20/19 20:52 Dose: 100 mg Documented by: Sodium Chloride () 10 - 40 ml IV UD PRN PRN Reason: SALINE FLUSH Tamsulosin HCl (Flomax) 0.4 mg PO DAILY@1730 [facility] Last Admin: 02/21/19 15:11 Dose: 0.4 mg Documented by: Venlafaxine HCl (Effexor) 25 mg PO QHS [facility] Last Admin: 02/20/19 20:52 Dose: 25 mg Documented by: Venlafaxine HCl (Effexor) 50 mg PO BREAKFAST [facility] Last Admin: 02/21/19 09:08 Dose: 50 mg Documented by: Medical Necessity - Tobacco Use Smoking Status: Former smoker Assessment/Plan All Active Problems (Last Reviewed 02/19/19 @ 08:09 by Sunil Parker MD) A-fib (Acute) Atrial flutter (Acute) Left fibular fracture (Acute) Hyponatremia (Acute) Abdominal wall pain (Acute) The patient is a 58 year old M with a significant history of super morbid obesity that is post gastric bypass surgery was admitted from the [facility] after found to have twitchings, concern for stroke, feeling weak and sent to ER. In ER, he was found to have atrial flutter. EKG shows atrial flutter with LAD. Patient also has history of hypertension, DVT on Xarelto 10 mg daily. His both feet were felt to be cold and dusky hue cyanosis in ER. Patient was found hypotensive and received IV normal saline boluses. Health And Safety Inspector was further consulted for atrial flutter. 1. Hypotension, possible secondary to atrial flutter/fibrillation, new onset. Hypotension resolved. Patient had A. fib with RVR on 02/20 which controlled with resumption of metoprolol. Patient blood pressure in ER was in 90s. Lasix and lisinopril and HCTZ on hold as patient is euvolemic. Patient is DNR CC therefore admitted to PCU as he is against chest compression, intubation, vent support, central line or vasopressors. IV fluid discontinued Diminished peripheral pulses possible peripheral arterial disease: MICHELLE was done. MICHELLE reported 1.6 in right leg and 1.3 on the left leg suggestive of calcified vessel. Advised to further follow-up peripheral vascular surgeon. 2. Atrial flutter with RVR: Currently heart rate is between 90s to 110s. Started on metoprolol 50 mg twice daily. Hold if systolic blood pressure less than 90 mmHg. Prior EKG of February 2019 was normal sinus rhythm. TSH and, potassium and magnesium were normal. 3. Acute kidney injury with retention: Patient baseline creatinine is less than 1. Admitted with creatinine 2.76. BUN 69. Sodium and chloride low. Possible prerenal/postrenal. Remove Aldana catheter. Monitor kidney function and electrolytes. And is well-hydrated. BUN/creatinine 23/0.79. ALIA resolved. May resume lisinopril gradually 10 mg daily and diuretics later on as needed 4. Other chronic comorbidities include chronic pain/fibromyalgia anxiety and depression and super morbid obesity. DVT Prophylaxis: On Xarelto and with IVC Filter. Laboratory Results 02/21/19 06:50: Sodium 138, Potassium 4.2, Chloride 103, Carbon Dioxide 27.0, Anion Gap 8, BUN 16, Creatinine 0.80, Estim Creat Clear Calc 118.45, Est GFR (MDRD) Af Amer 128, Est GFR (MDRD) Non-Af 106, BUN/Creatinine Ratio 20.0, Glucose 92, Calcium 8.7 02/20/19 13:18: Sodium 135 L, Potassium 4.3, Chloride 105, Carbon Dioxide 24.0, Anion Gap 6, BUN 23 H, Creatinine 0.79, Estim Creat Clear Calc 119.95, Est GFR (MDRD) Af Amer 131, Est GFR (MDRD) Non-Af 108, BUN/Creatinine Ratio 29.3 H, Glucose 103, Calcium 8.5 Active Medications Acetaminophen (Tylenol) 650 mg PO Q6H PRN PRN PRN Reason: Mild pain 1-3/Temp > 100.7 F Last Admin: 02/20/19 15:56 Dose: 650 mg Documented by: Albuterol Sulfate (Ventolin Hfa (Sp)) 2 puff INHALATION Q6H PRN PRN PRN Reason: SOB &/OR WHEEZING Calcium/Vitamin D (Os-Ronny 500mg + D) 1 tablet PO BIDCM [facility] Last Admin: 02/21/19 15:11 Dose: 1 tablet Documented by: Cholecalciferol (Vitamin D) 1,000 unit PO DAILY [facility] Last Admin: 02/21/19 09:07 Dose: 1,000 unit Documented by: Clonazepam (Klonopin) 1 mg PO BID [facility] Last Admin: 02/21/19 09:07 Dose: 1 mg Documented by: Cyanocobalamin (Vitamin B12) 1,000 mcg IM Q30D [facility] Cyclobenzaprine HCl (Flexeril) 10 mg PO TID PRN PRN PRN Reason: MUSCLE RELAXER Dextrose (D50w Syringe) 0 gm IV X1 PRN; Protocol PRN Reason: Hypoglycemia Dicyclomine HCl (Bentyl) 10 mg PO TIDCM [facility] Last Admin: 02/21/19 15:11 Dose: 10 mg Documented by: Fentanyl (Duragesic Patch) 25 mcg TRANSDERM. Q72H [facility] Fentanyl (Duragesic Patch) 25 mcg TRANSDERM. Q72H [facility] Last Admin: 02/21/19 12:05 Dose: 25 mcg Documented by: Ferrous Sulfate (Ferrous Sulfate) 325 mg PO DAILY@0800 [facility] Last Admin: 02/21/19 09:08 Dose: 325 mg Documented by: Gabapentin (Neurontin) 100 mg PO TIDCM [facility] Last Admin: 02/21/19 15:11 Dose: 100 mg Documented by: Glucagon () 1 mg IM .X1 PRN PRN Reason: Hypoglycemia Magnesium Hydroxide (Milk Of Magnesia) 30 ml PO DAILY PRN PRN PRN Reason: Constipation Metoprolol Tartrate (Lopressor (Beta Remi)) 50 mg PO BID [facility] Last Admin: 02/21/19 09:07 Dose: 50 mg Documented by: Nortriptyline HCl (Pamelor) 50 mg PO HS [facility] Last Admin: 02/20/19 20:52 Dose: 50 mg Documented by: Nystatin (Mycostatin Powder) 1 applic TOPICAL BID [facility]; Protocol Last Admin: 02/21/19 09:08 Dose: 1 applicatio Documented by: Ondansetron HCl (Zofran) 4 mg IV Q8H PRN PRN PRN Reason: Nausea Oxycodone HCl (Oxyir) 5 - 10 mg PO Q6H PRN PRN PRN Reason: PAIN Last Admin: 02/21/19 09:07 Dose: 5 mg Documented by: Pantoprazole Sodium (Protonix) 40 mg PO DAILY [facility] Last Admin: 02/21/19 09:08 Dose: 40 mg Documented by: Polyethylene Glycol (Miralax) 17 gm PO DAILY [facility] Last Admin: 02/21/19 09:08 Dose: Not Given Documented by: Rivaroxaban (Xarelto) 20 mg PO 1700 [facility] Last Admin: 02/21/19 15:11 Dose: 20 mg Documented by: Sertraline HCl (Zoloft) 100 mg PO QHS [facility] Last Admin: 02/20/19 20:52 Dose: 100 mg Documented by: Sodium Chloride () 10 - 40 ml IV UD PRN PRN Reason: SALINE FLUSH Tamsulosin HCl (Flomax) 0.4 mg PO DAILY@1730 [facility] Last Admin: 02/21/19 15:11 Dose: 0.4 mg Documented by: Venlafaxine HCl (Effexor) 25 mg PO QHS [facility] Last Admin: 02/20/19 20:52 Dose: 25 mg Documented by: Venlafaxine HCl (Effexor) 50 mg PO BREAKFAST [facility] Last Admin: 02/21/19 09:08 Dose: 50 mg Documented by: Code Visit Inpatient E&M: 53891 [facility] Hosp L3
[2019-02-21] MEDS: Mag Hydrox/Al Hydrox/Simeth 30 ML UDC 15 ML PO (20:19)
[2019-02-21] MEDS: Venlafaxine HCl 25 MG Tablet PO (21:10)
[2019-02-21] MEDS: Nortriptyline 25 MG Capsule 50 MG PO (21:11)
[2019-02-21] MEDS: Sertraline 100 MG Tablet PO (21:11)
[2019-02-22 02:45] VITALS: BP 133/86; PULSE 94; RESP 17; TEMP 36.8; O2SAT 96
[2019-02-22 06:30] LABS: BUN 11 mg/dL (7-18); Creatinine, Serum 0.69 mg/dL (0.70-1.30); Estimated Creatinine Clearance 137.33 ml/min; Glucose 103 mg/dL (74-106)
[2019-02-22 06:31] LABS: Anion Gap 8 (5-15); BUN/Creat Ratio 15.9 RATIO (10-20); Calcium,Total 8.7 mg/dL (8.5-10.1); Chloride 103 mmol/L (98-107); EST Glomerular Filtration Rate 125 mL/min (>60); Est Glom Filt Rate - Afr Amer 151 mL/min (>60); Sodium Level 137 mmol/L (136-145)
[2019-02-22 07:44] VITALS: PULSE 93
[2019-02-22] MEDS: Dicyclomine 10 MG Capsule PO (07:44)
[2019-02-22] MEDS: Calcium Carb/Vitamin D 1 TABLET Tablet PO (07:44)
[2019-02-22] MEDS: clonazePAM 1 MG Tablet PO (07:44)
[2019-02-22] MEDS: Metoprolol Tartrate 50 MG Tablet PO (07:44)
[2019-02-22] MEDS: Ferrous Sulfate 325 MG Tablet PO (07:44)
[2019-02-22] MEDS: Pantoprazole Sodium 40 MG Tablet PO (07:44)
[2019-02-22] MEDS: Venlafaxine HCl 25 MG Tablet 50 MG PO (07:44)
[2019-02-22] MEDS: oxyCODONE 5 MG Tablet PO (07:44)
[2019-02-22] MEDS: Gabapentin 100 MG Capsule PO (07:44)
[2019-02-22] MEDS: Nystatin Powder 15gm Bottle 1 APPLIC TOPICAL (07:45)
[2019-02-22 08:00] VITALS: BP 135/87; PULSE 92; RESP 16; TEMP 36.4; O2SAT 96
--- NOTE | 2019-02-22 08:32 | NURSING ---
report called to [facility] Ewa.
--- NOTE | 2019-02-22 08:58 | CASEMGMT ---
Social Work Per nursing, transportation arranged for today at 1000. CAMILLA spoke with Thalia at [facility] and notified. Orders faxed. SW met with pt and informed of return to [facility] today. Pt is aware and states he has already notified family. Plan: return to [facility] today PIERRE Choe
--- NOTE | 2019-02-22 10:15 | DS.PCM_ITS ---
Discharge Date and Diagnosis Date of Admission: 02/19/19 Date of Discharge: 02/22/19 - Primary Discharge Diagnosis Active and Suspected Problems (Last Reviewed 02/19/19 @ 08:09 by Sunil Parker MD) A-fib (Acute) Atrial flutter (Acute) - Secondary Discharge Diagnosis Chronic Problems (Last Reviewed 02/19/19 @ 08:09 by Sunil Parker MD) Rheumatic fever (Chronic) Morbid obesity (Chronic) Chronic pain (Chronic) BPH (benign prostatic hyperplasia) (Chronic) ADD (attention deficit disorder) (Chronic) H/O gastric bypass (Chronic) Neuropathy (Chronic) Depression (Chronic) HTN (hypertension) (Chronic) Calcium deficiency (Chronic) Vitamin B12 deficiency (Chronic) Fibromyalgia (Chronic) Hospital Course and Treatment Operations: None Summary of Care Provided: [] The patient is a 58 year old M with a significant history of super morbid obesity that is post gastric bypass surgery was admitted from the [facility] after found to have twitchings, concern for stroke, feeling weak and sent to ER. In ER, he was found to have atrial flutter. EKG shows atrial flutter with LAD. Patient also has history of hypertension, DVT on Xarelto 10 mg daily. His both feet were felt to be cold and dusky hue cyanosis in ER. Patient was found hypotensive and received IV normal saline boluses. Mlt was further consulted for atrial flutter. 1. Hypotension, possible secondary to atrial flutter/fibrillation, new onset. Hypotension resolved. Patient had A. fib with RVR on 02/20 which controlled and metoprolol resumed. Patient blood pressure in ER was in 90s. Lasix and lisinopril and HCTZ were held hold and lisinopril and Lasix resumed today. Hold HCTZ for about 1 week and thereafter start at lower dose and hold if systolic blood pressure is less than 120 mmHg Patient is DNR CC therefore admitted to PCU as he is against chest compression, intubation, vent support, central line or vasopressors. IV fluids were discontinued Diminished peripheral pulses possible peripheral arterial disease: MICHELLE was done. MICHELLE reported 1.6 in right leg and 1.3 on the left leg suggestive of calcified vessel. Advised to further follow-up peripheral vascular surgeon. 2. Atrial flutter with RVR: Currently heart rate is between 90s to 110s. Continue on metoprolol 50 mg twice daily. Hold if systolic blood pressure less than 90 mmHg. Prior EKG of February 2019 was normal sinus rhythm. TSH and, potassium and magnesium were normal. On Xarelto 20 mg daily 3. Acute kidney injury with retention: Patient baseline creatinine is less than 1. Admitted with creatinine 2.76. BUN 69. Sodium and chloride low. Possible prerenal/postrenal. Remove Aldana catheter. Monitor kidney function and electrolytes. And is well- hydrated. BUN/creatinine 23/0.79. ALIA resolved. Lisinopril resumed at 10 mg daily. Resume Lasix as needed for leg swelling or shortness of breath/pulmonary edema 4. Other chronic comorbidities include chronic pain/fibromyalgia anxiety and depression and super morbid obesity. DVT Prophylaxis: On Xarelto and with IVC Filter. Discharge medication reconciliation done. Discharge follow-up instructions completed. Discharge process discussed with the patient and all questions were answered to patient's satisfaction.. Total time spent, exact 35 minutes on discharge meds reconciliation, examination, review of imaging and blood test and discussion with the patient on follow-up instructions. Subjective: Seen and examined. Patient heart rate is controlled in the 90s. Blood pressure is 135/87. Diuretics resumed. No fever. Discharge was held yesterday because of holiday and nonavailability of transporter - Physical Exam General: Alert, Oriented x3, Cooperative HEENT: Atraumatic, PERRLA, EOMI, Normocephalic Neck: Supple, No JVD, Negative Carotid Bruits Lungs: Clear to auscultation, Normal air movement, Diminished Cardiovascular: Regular rate, Regular Rhythm, Normal S1, Normal S2, No murmurs Abdomen: Bowel Sounds Present, Soft, Non Tender, Non-Distended Extremities: No edema, Capillary Refill Less than 3 Seconds Skin: No rashes, No breakdown Musculoskeletal: No Tenderness to Palpation of Joints or Extremities, Arthritic Changes Neurological: Cranial nerves II-XII grossly intact, Deep Tendon Reflexes 2+/4 and Symmetrical, Neuro grossly intact Psych/Mental Status: Normal Affect, Appropriate Vital Signs Temp Pulse Resp BP Pulse Ox 97.9 F 99 16 114/86 H 98 02/21/19 08:45 02/21/19 09:07 02/21/19 08:45 02/21/19 08:45 02/21/19 08:45 Oxygen Delivery Method Room Air Weight: 399 lb 0.587 oz Body Mass Index (BMI) 51.2 Intake and Output for Last 24 Hours 02/19/19 02/20/19 02/21/19 23:59 23:59 23:59 Intake Total 1345 / 1345 1339 / 1339 360 / 360 Output Total 3125 / 3125 4575 / 4575 350 / 350 Balance -1780 / -1780 -3236 / -3236 Laboratory Tests Past 24 Hrs 02/20/19 02/20/19 02/21/19 13:18 13:18 06:50 WBC 5.3 RBC 4.24 L Hgb 13.1 Hct 37.8 L MCV 89.2 MCH 30.9 MCHC 34.7 RDW 13.2 RDW Differential 42.6 Plt Count 154 MPV 10.0 Immature Gran % (Auto) 0.200 Neut % (Auto) 65.6 Lymph % (Auto) 24.9 [place] % (Auto) 6.6 Eos % (Auto) 2.5 Baso % (Auto) 0.2 Absolute Neuts (auto) 3.5 Absolute Lymphs (auto) 1.31 Total Counted Not Reportable Sodium 135 L 138 Potassium 4.3 4.2 Chloride 105 103 Carbon Dioxide 24.0 27.0 Anion Gap 6 8 BUN 23 H 16 Creatinine 0.79 0.80 Estim Creat Clear Calc 119.95 118.45 Est GFR (MDRD) Af Amer 131 128 Est GFR (MDRD) Non-Af 108 106 BUN/Creatinine Ratio 29.3 H 20.0 Glucose 103 92 Calcium 8.5 8.7 Home Medications: Medications to take at Discharge Lisinopril [Zestril] 20 mg PO DAILY 11/30/15 Albuterol Inhaler [Ventolin Hfa] 2 puff INHALATION Q6H PRN PRN 03/30/18 Clonazepam [Klonopin] 1 mg PO BID 03/30/18 Gabapentin [Neurontin] 300 mg PO TIDCM 03/30/18 Sertraline HCl [Zoloft] 100 mg PO QHS 03/30/18 Cyanocobalamin [Vitamin B12] 1,000 mcg IM Q30D 05/28/18 Dicyclomine HCl 10 mg PO TIDCM 09/14/18 Ferrous Sulfate 325 mg PO DAILY@0800 09/14/18 Omeprazole 40 mg PO DAILY 09/14/18 Calcium Carbonate/Vitamin D3 [Calcium 600 + Vit D Tablet] 1 ea PO BIDCM #1 tab 09/19/18 Nystatin Powder [Mycostatin Powder] 1 applic TOPICAL BID bottle 09/19/18 Polyethylene Glycol 3350 [Miralax] 17 gm PO DAILY packet 09/19/18 Tamsulosin HCl [Flomax] 0.4 mg PO DAILY@1730 cap 09/19/18 Acetaminophen 650 mg PO Q4H PRN PRN 02/19/19 Cholecalciferol (VIT D3) [Vitamin D3] 1,000 unit PO DAILY 02/19/19 Nortriptyline HCl 50 mg PO QHS 02/19/19 Oxycodone HCl 10 mg PO Q6H PRN PRN 02/19/19 Venlafaxine HCl 25 mg PO QHS 02/19/19 Venlafaxine HCl 50 mg PO BREAKFAST 02/19/19 Baclofen [Lioresal] 10 mg PO BID PRN PRN #0 02/21/19 Cyclobenzaprine HCl 10 mg PO TID PRN PRN #0 02/21/19 Furosemide [Lasix] 40 mg PO DAILY PRN PRN #0 02/21/19 Hydrochlorothiazide [Hctz] 12.5 mg PO DAILY #0 02/21/19 Metoprolol Tartrate [Lopressor (beta gali)] 50 mg PO BID #0 02/21/19 Rivaroxaban [Xarelto] 20 mg PO DAILY #30 tab 02/21/19 fentaNYL patch [Duragesic patch] 25 mcg TRANSDERM. Q72H 02/21/19 Following Prescrptions Were Given to Patient: Rivaroxaban [Xarelto] 20 mg PO DAILY #30 tab Prescription Printed Primary Care Physician: Kieran Beard MD [Primary Care Provider] - Please follow up with your Primary Care Physician in: in 1-2 week Please Follow Up With: Renan Bruce MD When: in 2-3 weeks Medical Necessity - Tobacco Use Smoking Status: Former smoker Meaningful Use Info Meaningful Use Diagnoses (Choose all that apply): None applicable Code Visit Inpatient E&M: 66666 Disch Hosp
== END 2019-02-22 10:06 | disposition skilled nursing facility (03) | DRG 201 ==
LOC: ED 02:54 → PCU 08:23
PROVIDERS: Admitting Provider Hospitalist; Emergency Provider Emergency Medicine; Family Provider Family Medicine; PCP Family Medicine; Visit Provider Internal Medicine
DX: I48.92 Unspecified atrial flutter (principal); I95.9 Hypotension, unspecified; N17.9 Acute kidney failure, unspecified; E66.01 Morbid (severe) obesity due to excess calories; Z68.43 Body mass index [BMI] 50.0-59.9, adult; Z66 Do not resuscitate; M79.7 Fibromyalgia; F32.9 Major depressive disorder, single episode, unspecified; F41.9 Anxiety disorder, unspecified; N40.1 Benign prostatic hyperplasia with lower urinary tract symptoms; R33.8 Other retention of urine; I10 Essential (primary) hypertension; I48.91 Unspecified atrial fibrillation; G62.9 Polyneuropathy, unspecified; Z79.01 Long term (current) use of anticoagulants; Z87.891 Personal history of nicotine dependence; Z98.84 Bariatric surgery status; Z86.718 Personal history of other venous thrombosis and embolism; F98.8 Other specified behavioral and emotional disorders with onset usually occurring in childhood and adolescence; E58 Dietary calcium deficiency; E53.8 Deficiency of other specified B group vitamins
CPT/HCPCS: 36415; 71045; 80048; 80053; 81001; 83605; 83735; 84443; 84484; 85025; 93005; 93306; 93922; 97110; 97162; 97166; 97530; 97535; 97802; 99285; J7030; Q9957; A4216; C8929

== ENCOUNTER → 2019-02-27 13:15 | Outpatient (CLI) | payer MEDICAID, SELFPAY ==
[2018-11-26 15:55] VITALS: BMI 59.1
[2019-02-19 08:46] VITALS: BMI 51.2
--- NOTE | 2019-02-27 13:20 | CT_ITS ---
HISTORY:LEFT FIBULA FX LEFT FIBULA FX EXAMINATION: CT Tibia/Fibula W/O Contrast TECHNIQUE: Routine bone CT protocol was performed of the . Left tibia and fibula... 2-D reformats were performed by the technologist. A radiation dose optimization technique was used for this scan. IV Contrast dosage and agent: None. COMPARISON: September 17, 2018 FINDINGS: BONES/JOINTS: There is a healed fracture of the proximal diaphysis of the left fibula as well as of the lateral malleolus. No evidence of an acute fracture. There are subchondral cysts and subchondral sclerosis that are seen at the tibial plafond and the talar dome. Anterior and lateral widening of the tibiotalar joint. There is callus formation seen at the distal interosseous membrane. Degenerative changes are seen at the knee joint with patellofemoral joint space narrowing and osteophytes as well as small marginal osteophytes of the medial and lateral tibia there is also mild lateral subluxation of the patella in relation to the tibia and lateral patellar tilt. SOFT TISSUES: Subcutaneous edema overlying the patellar tendon and seen posterior laterally in the lower leg There is atrophy involving the medial head of the gastric anemias muscle with diminished size of the lateral head. CT/Extremity Lower without Contra IMPRESSION: Healed proximal fibular neck fracture as well as lateral malleolar fracture. No acute fractures are noted. Degenerative changes at the ankle joint with anterior lateral joint space widening at the tibiotalar joint. Calcification of the interosseous membrane distally. Degenerative changes of the knee as discussed. Individualized dose optimization techniques were used for this CT. at 1711 Reported and signed by: Berta Bergeron DO Electronically Signed: Berta Bergeron DO at 17:10 EDT Tel , Service support ,
== END ==
PROVIDERS: Family Provider Family Medicine; PCP Family Medicine; Referring Provider Podiatrist Foot & Ankle Surgery; Visit Provider Podiatrist Foot & Ankle Surgery
DX: S82.832A Other fracture of upper and lower end of left fibula, initial encounter for closed fracture (principal); X58.XXXA Exposure to other specified factors, initial encounter; Y93.9 Activity, unspecified; Y92.9 Unspecified place or not applicable; Y99.9 Unspecified external cause status
CPT/HCPCS: 73700

== ENCOUNTER 2019-07-30 13:56 | Inpatient (IN) | payer MEDICAID, SELFPAY ==
[2019-03-28 13:11] VITALS: BMI 49.1
[2019-07-30] VITALS (22 sets, daily range): BP systolic 124–160; BP diastolic 77–132; PULSE 74–150; RESP 16–23; TEMP 36.7–36.8; O2SAT 95–98; BMI 51.8; BMI 50.8
--- NOTE | 2019-07-30 14:11 | RAD_ITS ---
STUDY: X-RAY CHEST REASON FOR EXAM: Male, 59 years old. Chest pain. TECHNIQUE: Single AP portable view of the chest. COMPARISON: Comparison is made with prior study dated February 19, 2019. FINDINGS: EKG electrodes are seen. Stable eventration of the right hemidiaphragm. Scattered calcified granulomas. There is no demonstrated pleural abnormality. Normal size heart. Normal mediastinum and tom. Normal visualized pulmonary arteries. Normal visualized aortic arch and descending thoracic aorta. Normal visualized thoracic spine. Normal visualized ribs, clavicles, and shoulders. Surgical clips are once again seen in the left upper quadrant. RAD/Chest 1 View (Portable) IMPRESSION: No acute abnormality is seen. Electronically Signed: Cole Hopper, at 14:30 EST , Service support ,
--- NOTE | 2019-07-30 14:11 | EKG12_ITS ---
Test Reason : CP Blood Pressure : / mmHG Vent. Rate : 140 BPM Atrial Rate : 300 BPM P-R Int : 000 ms QRS Dur : 084 ms QT Int : 284 ms P-R-T Axes : 000 -66 028 degrees QTc Int : 433 ms Atrial flutter with variable A-V block Left axis deviation Low voltage QRS Inferior infarct , age undetermined Abnormal ECG Confirmed by DESI BLOOM, ИВАН ([id number]), supervising editor trailer SKYE BARROSO ([id number]) on 07/31/2019 11:26:10 AM Referred By: RIMMA Confirmed By:ИВАН WEEKS MD
[2019-07-30 14:31] LABS: Absolute Lymphocyte Count 1.34 X10^3/uL (0.83-4.51); Absolute Neutrophil Count 6.1 X10^3/uL (2.0-7.7); Basophil# 0.02 X10^3/uL; Basophil% 0.2 % (0-1); Eosinophil# 0.08 X10^3/uL; Hematocrit 45.2 % (40-54); Hemoglobin 15.3 g/dL (13.0-16.5); Lymphocyte # 1.34 X10^3/ul (4.0); Lymphocyte % 16.4 % (19-41); Mean Corp Hgb Conc 33.8 g/dL (32-36); Mean Corpuscular Hgb 30.4 pg (27.0-32.0); Mean Corpuscular Volume 89.9 fL (80-94); Mean Platelet Vol. 9.9 fl (6.2-12.0); Monocyte# 0.56 X10^3/uL; Monocyte% 6.8 % (0-10); NRBC Flagged by Analyzer 0 % (0-5); Neutrophil # 6.14 X10^3/uL (2.7-7.7); Neutrophil % 75.1 % (47-70); Platelet Count 208 K/mm3 (150-450); RBC Distribution Width CV 15.5 % (11.6-14.6); RBC Distribution Width SD 50.4 fl (35.1-43.9); Red Blood Count 5.03 M/mm3 (4.6-6.2); White Blood Count 8.2 K/mm3 (4.4-11.0)
[2019-07-30] MEDS: dilTIAZem 25 MG/5 ML Vial IV BOLUS (14:35)
[2019-07-30 14:49] LABS: Anion Gap 5 (5-15); BUN 8 mg/dL (7-18); BUN/Creat Ratio 9.5 RATIO (10-20); Chloride 110 mmol/L (98-107); Creatinine, Serum 0.84 mg/dL (0.70-1.30); EST Glomerular Filtration Rate 100 mL/min (>60); Est Glom Filt Rate - Afr Amer 121 mL/min (>60); Estimated Creatinine Clearance 111.45 ml/min; Glucose 167 mg/dL (74-106); Sodium Level 141 mmol/L (136-145)
[2019-07-30] MEDS: dilTIAZem 25 MG/5 ML Vial 20 MG IV BOLUS ×2 (15:02→15:45)
--- NOTE | 2019-07-30 15:32 | ED.DCSUM_ITS ---
- ER Visit Summary Date of Service: 07/30/19 Chief Complaint: Elevated heart rate and chest pain History of Present Illness: The patient is a 59 M history of atrial fib flutter, hypertension, prior DVT and chronic pain. Patient states he had accelerated heart rate today and chest discomfort. Physical Examination: Middle-aged male vital signs initial blood pressure 159/97. Heart rate is 123. HEENT exam unremarkable. Neck nontender no JVD. Lungs clear to auscultation. Heart tachycardic rate about 140 looks like atrial fib flutter on the monitor. Abdomen morbidly obese but soft nontender normal bowel sounds. Patient is moving all 4 extremities. Calves are nontender withou t edema or cords. Neurologically is awake and alert moving all 4 extremities. Test Results: CBC normal white count 8. Hemoglobin 15. Chemistries normal normal creatinine and gap. Troponin normal. Portable chest x-ray one view showed no acute abnormality read by myself and the radiologist. EKG tachycardia appears to be A. fib/flutter rate of 140. Emergency Department Course and Treatment: Patient with recurrent A. fib flutter with a heart rate of 140. Treated initially with Cardizem IV. Was given a second dose and now a third dose may need to be started on a Cardizem drip. Treatment Plan: I have the hospitalist on page for admission Disposition: Admission Impression: Recurrent A. fib with RVR This note was generated with [employer] dictation software. It may contain incorrect words, spelling, and punctuation that were not noted in review of the chart prior to signing ED Disposition - Plan for ED Patient: Referrals: Kieran Beard MD [Primary Care Provider] -
--- NOTE | 2019-07-30 15:37 | CHAPLAIN ---
Type of Pastoral Visit _x__ Initial Visit ___ Follow-up Visit ___ On-call Visit ___ General Patient Visit ___ Spiritual Assessment ___ Family Conference ___ Bereavement ___ Rapid Response ___ Code Blue ___ Other (describe below) Pastoral Care Referral From _x__ Patient ___ Family _x__ Nurse ___ Physician ___ Brake Assembler ___ Hvac Services Professional ___ Other (describe below) Sacrament/Intervention _x__ Active listening ___ Anointing ___ Baptist ___ Bereavement ___ Communion _x__ Cyndi exploration ___ _x__ Life review _x__ Prayer ___ Reconciliation ___ Sacrament of Sick _x__ Supportive presence ___ Wedding ___ Other (describe below) Pastoral Comments
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
--- NOTE | 2019-07-30 17:27 | ECHOCS_ITS ---
Reason For Study: AFIB.FLUTTER Procedure This was a 2D Doppler, Color Flow transthoracic echocardiogram. The study was technically difficult. Due to body habitus. Contrast injection was performed. Exam performed portable in patient room. Left Ventricle Normal size and thickness. The estimated ejection fraction is 65 %. Unable to assess diastolic dysfunction due to arrhythmia. Right Ventricle Normal size and thickness. Normal systolic function. Atria Normal left atrium. Normal right atrium. Normal atrial septum. Mitral Valve The mitral valve is structurally normal. No prolapse or stenosis seen. Tricuspid Valve Normal tricuspid valve. Trivial tricuspid valve insufficiency. Right ventricular systolic pressure estimated to be 39 mmHg. Mild pulmonary hypertension. Aortic Valve Normal aortic valve. Trisinus/trileaflet aortic valve. Great Vessels Normal aortic root. Normal arch. Normal inferior vena cava. Medication Diluted definity 5.0ml given slow IV push to enhance endocardial definition. MMode/2D Measurements & Calculations LVIDd: 5.2 cm IVSd: 1.2 cm Ao root diam: 3.4 cm LVIDs: 3.5 cm LVPWd: 0.98 cm LA dimension: 3.7 cm FS: 31.6 % Doppler Measurements & Calculations MV E max omer: 88.9 cm/sec Ao V2 max: 82.7 cm/sec LV V1 max: 80.2 cm/sec Ao max P.7 mmHg LV V1 max P.6 mmHg PA V2 max: 66.5 cm/sec TR max omer: 243.6 cm/sec TR max P.7 mmHg Interpretation Summary The estimated ejection fraction is 65 %. Unable to assess diastolic dysfunction due to arrhythmia. Trivial tricuspid valve insufficiency. Right ventricular systolic pressure estimated to be 39 mmHg. Mild pulmonary hypertension. Compared to echo report dated 02/19/2019, LV function has remained the same, but RVSP has increased from 32 to 39 mm Hg, and pt now appears to be in atrial fibrillation. The study was technically difficult. Contrast injection was performed. Ordering Physician: Ankit Aguilar Referring Physician: Santiago Beard Performed By: Jim Yarbrough RCS
[2019-07-30] MEDS: dilTIAZem 25 MG/5 ML Vial 10 MG IV BOLUS (18:23)
[2019-07-30] MEDS: Lisinopril 20 MG Tablet PO (18:23)
[2019-07-30] MEDS: Cyanocobalamin (B12) 1,000 MCG/ML Vial 1000 MCG IM (18:45)
[2019-07-30] MEDS: Tamsulosin HCl 0.4 MG Capsule PO (18:45)
[2019-07-30 18:51] LABS: Thyroid Stim Hormone (TSH) 1.22 uIU/mL (0.358-3.74)
[2019-07-30] MEDS: Venlafaxine HCl 25 MG Tablet 50 MG PO (21:30)
[2019-07-30] MEDS: Gabapentin 300 MG Capsule PO (21:30)
[2019-07-30] MEDS: Metoprolol Tartrate 50 MG Tablet PO (21:31)
[2019-07-30] MEDS: Dicyclomine 10 MG Capsule PO (21:32)
[2019-07-30] MEDS: Baclofen 10 MG Tablet PO (21:33)
[2019-07-30] MEDS: Nystatin Powder 15gm Bottle 1 APPLIC TOPICAL (21:35)
[2019-07-30] MEDS: clonazePAM 1 MG Tablet PO (21:45)
[2019-07-30] MEDS: cycloBENZAPRine HCl 10 MG Tablet PO (21:45)
[2019-07-30] MEDS: Rivaroxaban 20 MG Tablet PO (22:23)
[2019-07-31] VITALS (29 sets, daily range): BP systolic 91–129; BP diastolic 61–92; PULSE 55–85; RESP 12–20; TEMP 36.4–37.1; O2SAT 93–100
[2019-07-31] MEDS: Ferrous Sulfate 325 MG Tablet PO (08:47)
[2019-07-31] MEDS: Furosemide 40 MG Tablet PO (08:47)
[2019-07-31] MEDS: Calcium Carb/Vitamin D 1 TABLET Tablet PO ×2 (08:48→16:00)
[2019-07-31] MEDS: Lisinopril 20 MG Tablet PO ×2 (08:48→08:49)
[2019-07-31] MEDS: Metoprolol Tartrate 50 MG Tablet PO (08:48)
[2019-07-31] MEDS: Allopurinol 100 MG Tablet PO (08:48)
[2019-07-31] MEDS: Gabapentin 300 MG Capsule PO ×3 (08:48→16:00)
[2019-07-31] MEDS: Venlafaxine HCl 25 MG Tablet 50 MG PO ×2 (08:48→21:47)
[2019-07-31] MEDS: cycloBENZAPRine HCl 10 MG Tablet PO ×2 (08:48→16:06)
[2019-07-31] MEDS: Dicyclomine 10 MG Capsule PO ×3 (08:49→15:58)
[2019-07-31] MEDS: Pantoprazole Sodium 40 MG Tablet PO (08:49)
[2019-07-31] MEDS: Polyethylene Glycol 3350 17 GM PACKET PO (08:49)
[2019-07-31] MEDS: clonazePAM 1 MG Tablet PO ×2 (08:53→21:47)
[2019-07-31] MEDS: HYDROcodone Bitartrate/Apap 5/325 Tablet PO ×2 (08:53→16:06)
[2019-07-31] MEDS: Nystatin Powder 15gm Bottle 1 APPLIC TOPICAL ×2 (09:52→21:47)
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
--- NOTE | 2019-07-31 10:58 | CASEMGMT ---
Case Management Progress Note: Went to patient bedside to complete initial assessment and patient currently receiving patient care. Cm to continue to follow for assessment and care coordination needs. Peyton Ziegler RNCM
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
--- NOTE | 2019-07-31 15:26 | CON.PCM_ITS ---
Problem List (1) Essential hypertension Status: Chronic (2) A-fib Status: Chronic Qualifiers: Atrial fibrillation type: unspecified chronic Qualified Code(s): I48.20 - Chronic atrial fibrillation, unspecified; I48.2 - Chronic atrial fibrillation (3) Atrial flutter Status: Acute Qualifiers: Atrial flutter type: unspecified Qualified Code(s): I48.92 - Unspecified atrial flutter Reason for Consult Date of Consultation: 07/31/19 Reason for Consultation: Atrial fibrillation History of Present Illness: The patient is a 59 year old M severely obese, status post Malik-en-Y procedure in 1994, nondiabetic, with hypertension, hypercholesterolemia, previously diagnosed with atrial fibrillation approximately 1 year ago. This appeared to spontaneously correct back to normal sinus rhythm. He has been on no anticoagulation therapy. Patient has a number of medical issues and is essentially bedbound, has had a previous DVT with a DVT filter placed around the time of his Malik-en-Y procedure which is still in place. To the best of his knowledge he has never had a pulmonary embolism. Patient is rehabbing at home and getting physical therapy and his physical therapist noticed that his heart was racing. This occurred around 9:30 in the morning today 07/31/2019. Patient reported to the emergency room was found to be in atrial fibrillation with rapid ventricular response. He was placed on a Cardizem drip to improve his heart rate which has markedly improved. In addition to his rapid heart rate he complained of chest pressure which was nonradiating with associated shortness of breath. To the best of his knowledge he has never had a heart catheterization. He reports that he had a stress test about 2 years ago. This took place at [facility] 03/31/2018 and consisted of a non-walking nuclear stress test which was negative for inducible ischemia. His troponins were negative x3. The patient underwent an echocardiogram today which showed normal LV function, and an RVSP of approximately 39 mmHg which was increased from his previous echocardiogram at which time his pulmonary pressures were 32 mmHg. [] Past Medical History Allergies/Adverse Reactions: Allergies duloxetine [From Cymbalta] Adverse Reaction (Verified 03/28/19 13:12) Other SERATONIN SYNDROME Home Medications: Ambulatory Orders Medication Instructions Recorded Lisinopril [Zestril] 20 mg PO DAILY 11/30/15 Albuterol Inhaler [Ventolin Hfa] 2 puff INHALATION Q6H PRN PRN 03/30/18 Clonazepam [Klonopin] 1 mg PO BID 03/30/18 Gabapentin [Neurontin] 300 mg PO TIDCM 03/30/18 Sertraline HCl [Zoloft] 100 mg PO QHS 03/30/18 Cyanocobalamin [Vitamin B12] 1,000 mcg IM Q30D 05/28/18 Dicyclomine HCl 10 mg PO TIDCM 09/14/18 Ferrous Sulfate 325 mg PO DAILY@0800 09/14/18 Omeprazole 40 mg PO DAILY 09/14/18 Oxycodone HCl 10 mg PO Q6H PRN PRN 02/19/19 Baclofen [Lioresal] 10 mg PO BID PRN PRN #0 02/21/19 Cyclobenzaprine HCl 10 mg PO TID PRN PRN #0 02/21/19 Hydrochlorothiazide [Hctz] 12.5 mg PO DAILY #0 02/21/19 fentaNYL patch [Duragesic patch] 25 mcg TRANSDERM. Q72H 02/21/19 allopurinol 100 mg tablet 100 mg PO DAILY 03/28/19 furosemide 40 mg tablet 40 mg PO DAILY tab 03/28/19 metoprolol tartrate 50 mg tablet 25 mg PO BID tab 03/28/19 venlafaxine 50 mg tablet 50 mg PO BID 03/28/19 Ammonium Lactate 1 applic TP QHS 07/30/19 Aspirin/Acetaminophen/Caffeine 1 tab PO DAILY PRN PRN 07/30/19 [Excedrin Migraine Caplet] Calcium Carbonate/Vitamin D3 1 ea PO BIDCM 07/30/19 [Calcium 600 + Vit D Tablet] Cbd Oil 1 dose PO DAILY 07/30/19 Cholecalciferol (Vitamin D3) 2,000 unit PO DAILY 07/30/19 [Vitamin D3] Ergocalciferol (Vitamin D2) 50,000 unit PO MORALES 07/30/19 [Vitamin D2] Famotidine/Ca Carb/Mag Hydrox 3 tab PO Q6H PRN PRN 07/30/19 [Tums Dual Action Tablet Chew] Nortriptyline HCl 75 mg PO QHS 07/30/19 Nystatin Powder [Mycostatin Powder] 1 applic TOPICAL BID 07/30/19 Rivaroxaban [Xarelto] 20 mg PO DAILY 07/30/19 Tamsulosin HCl [Flomax] 0.4 mg PO DAILY@1730 07/30/19 Past Medical History (Chronic Problems): Chronic Problems (Last Reviewed 07/30/19 @ 16:33 by Ankit Aguilar DO) Essential hypertension (Chronic) A-fib (Chronic) Morbid obesity (Chronic) Chronic pain (Chronic) Neuropathy (Chronic) Surgical History: - - Gastric bypass surgery. Psychiatric History: Attn. deficit disorder, Depression - *Family History Paternal Family History: Family History (Last Reviewed 07/30/19 @ 16:33 by Ankit Aguilar DO) Mother Diabetes Thyroid disorder Father Diabetes Heart disease COPD (chronic obstructive pulmonary disease) Hypertension History Items: Heart Disease Smoking Status: Former smoker Review of Systems - Review of Systems General: Denies: Fever, Night Sweats, Fatigue Cardiovascular: Reports: Chest Discomfort, Chest Discomfort at Rest, Chest Heaviness, Shortness of Breath at Rest, Palpitations. Denies: Shortness of Breath, Orthopnea, PND, Peripheral Edema, Lightheadedness, Dizziness, Near Syncope, Syncope Respiratory: Denies: Cough, Sputum Production, Hemoptysis Gastrointestinal: Denies: Hematemesis, Hematochezia, Melena Genitourinary: Denies: Dysuria, Hematuria Skin: Denies: Rash Subjectve: Patient lying in bed, no acute distress. Objective: Vital Signs Temp Pulse Resp BP Pulse Ox 98.8 F 67 18 123/67 H 98 07/31/19 14:14 07/31/19 15:00 07/31/19 15:00 07/31/19 15:00 07/31/19 15:00 Oxygen Flow Rate (L/min) 2 Oxygen Delivery Method Room Air Weight: 395 lb 8.148 oz Body Mass Index (BMI) 50.8 Intake and Output for Last 24 Hours 07/29/19 07/30/19 07/31/19 23:59 23:59 23:59 Intake Total 570.75 / 585.75 794.50 / 794.50 Output Total 650 / 650 325 / 325 Balance -79.25 / -64.25 469.50 / 469.50 General: Awake, Alert, Oriented x 3 HEENT: PERRL, EOMI, Sclera Non Icteric Neck: Supple, Good ROM, No Lymph Node Enlargement Lungs: Clear to auscultation Cardiovascular: Irregular Rhythm, Normal S1, Normal S2, No Murmurs, No Rubs, No Gallops Vascular: No Carotid Bruits, Normal Femoral Pulses, Normal Radial Pulses, Normal Dorsalis Pedal Pulse, Normal Posterior Tibial Pulses Abdomen: Bowel Sounds Present, Soft, Non Tender, No HSM, No Organomegaly Extremities: No Cyanosis, No Clubbing, No edema Neurological: No Focal Motor or Sensory Deficit 07/30/19 18:00: Troponin I < 0.015 07/30/19 20:55: Troponin I < 0.015 07/30/19 23:10: Troponin I < 0.015 Rhythm: EKG: Initial EKG showed atrial flutter with 2-1 conduction. Currently he is in atrial fibrillation with controlled ventricular response. ECHO: As above Stress Test: Pending Cardiac Cath: PCI: CT Surgery: Holter monitor: EPS: PPM: CXR: Chest CT Scan: Assessment/Plan 1. Atrial flutter/fibrillation: The patient presents with recurrent atrial fibrillation/atrial flutter, superimposed on substernal chest pressure and shortness of breath. Patient responded well to a Cardizem drip, and is currently rate controlled. His drip has been discontinued. His troponins are negative. His echocardiogram shows intact LV function with at least mild pulmonary pretension with an RVSP of 39 mmHg, but may be underestimated. At this point I recommend the patient be continued on his Xarelto as he has a history of DVT, DVT filter, and paroxysmal atrial fibrillation as well as a fairly sedentary lifestyle which puts him at risk for recurrent DVT and possible pulmonary embolism. The patient was controlled at home with Lopressor 25 mg p.o. twice daily, which apparently was not enough to keep him under control. Recommend discontinuation of his Lopressor and switching him to Cardizem CD 180 mg p.o. daily. In addition I recommend he undergo a dobutamine echocardiogram tomorrow to assess for ischemia. If this is grossly abnormal, the patient may require diagnostic coronary angiogram once his Xarelto has worn off. Also recommend keeping his potassium of 4.0, magnesium above 2.0, and his TSH is negative. 2. The patient may have obstructive sleep apnea which may be contributing to his paroxysmal atrial fibrillation. Recommend consideration of a sleep study as an outpatient. 3. Thank you very much for the opportunity to participate in the cardiac care of your patient. Consultation took place between 2:30 PM and 3 PM. Code Visit Inpatient E&M: 73500 Init Hosp L2
[2019-07-31] MEDS: Tamsulosin HCl 0.4 MG Capsule PO (15:58)
[2019-07-31] MEDS: Rivaroxaban 20 MG Tablet PO (16:01)
[2019-08-01] VITALS (9 sets, daily range): BP systolic 100–124; BP diastolic 68–77; PULSE 73–92; RESP 14–16; TEMP 36.3–36.8; O2SAT 94–96
[2019-08-01] MEDS: cycloBENZAPRine HCl 10 MG Tablet PO ×2 (02:20→13:04)
[2019-08-01] MEDS: HYDROcodone Bitartrate/Apap 5/325 Tablet PO ×2 (02:20→09:32)
[2019-08-01] MEDS: 0.9% Saline Lock 10 ML Syringe IV (02:25)
[2019-08-01] MEDS: Lisinopril 20 MG Tablet PO (06:24)
--- NOTE | 2019-08-01 08:00 | STEWCON_ITS ---
Reason For Study: atrial fibrillation Stress Results Protocol: Dobutamine Stress Echo With Definity Maximum Predicted HR: 162 bpm Target HR: 138 bpm % Maximum Predicted HR: 85 % DurationHeart Rate Stage (mm:ss) (bpm) BP Dose Comment baseline 78 129/69 6ml total definity used stage 1 3:07 88 123/7910.00 stage 2 3:00 100 115/6820.00 stage3 3:00 115 109/6730.000.25 mg atropine given stage 4 5:30 137 115/5540.000.25 mg atropine given recovery 14:26 103 116/72 Stress Duration: 29:03 mm:ss Maximum Stress HR: 137 bpm Baseline Echocardiogram Findings The estimated ejection fraction is 65 %. Stress Echo Wall motion Data Resting WM Intermediate WM Stress WM Resting Wall Motion Wall Motion Stress No regional wall motion No regional wall motion abnormalities noted. abnormalities noted. EKG Data The baseline ECG displays normal sinus rhythm. The patient was titrated from 10 mcg to a maximum of 40 mcg of dobutamine during the stress. The maximum heart rate attained was 150 beats per minute. This was 92% of maximum predicted heart rate. During dobutamine infusion, there were no ST or T wave changes noted to suggest ischemia. No clinical angina was noted. Interpretation Summary The estimated ejection fraction is 65 %. Normal, adequate, dobutamine echocardiogram. Negative for ischemia by EKG and echocardiographic criteria. No anginal symptoms noted. Rare PVCs noted. Test terminated due to the attainment target heart rate. Final LVEF is 75%. Decreased sensitivity due to poor echo windows requiring Definity agent. Patient tolerated the procedure well. No complications. Patient tolerated procedure well. No complications. The study was technically difficult. Contrast injection was performed. Ordering Physician: Chele Condon Referring Physician: león Performed By: Rekha Fierro RDCS
[2019-08-01] MEDS: Dicyclomine 10 MG Capsule PO ×2 (09:17→13:04)
[2019-08-01] MEDS: Ferrous Sulfate 325 MG Tablet PO (09:18)
[2019-08-01] MEDS: Gabapentin 300 MG Capsule PO ×2 (09:18→13:04)
[2019-08-01] MEDS: Calcium Carb/Vitamin D 1 TABLET Tablet PO (09:19)
[2019-08-01] MEDS: Venlafaxine HCl 25 MG Tablet 50 MG PO (09:19)
[2019-08-01] MEDS: Polyethylene Glycol 3350 17 GM PACKET PO (09:20)
[2019-08-01] MEDS: Furosemide 40 MG Tablet PO (09:20)
[2019-08-01] MEDS: Pantoprazole Sodium 40 MG Tablet PO (09:20)
[2019-08-01] MEDS: Allopurinol 100 MG Tablet PO (09:21)
[2019-08-01] MEDS: Nystatin Powder 15gm Bottle 1 APPLIC TOPICAL (09:21)
[2019-08-01] MEDS: Metoprolol Tartrate 50 MG Tablet PO (09:22)
[2019-08-01] MEDS: clonazePAM 1 MG Tablet PO (09:32)
[2019-08-01] MEDS: dilTIAZem CD 180 MG Capsule PO (09:32)
[2019-08-01] MEDS: Baclofen 10 MG Tablet PO (09:32)
--- NOTE | 2019-08-01 12:09 | PCM.PN.CARD ---
Subjectve: Patient doing well this morning. Status post stress test. Telemetry negative. Objective: Vital Signs Temp Pulse Resp BP Pulse Ox 97.6 F L 73 16 122/69 H 96 08/01/19 09:16 08/01/19 11:01 08/01/19 09:16 08/01/19 09:16 08/01/19 09:16 Oxygen Flow Rate (L/min) 2 Oxygen Delivery Method Room Air Weight: 395 lb 8.148 oz Body Mass Index (BMI) 50.8 Intake and Output for Last 24 Hours 07/30/19 07/31/19 08/01/19 23:59 23:59 23:59 Intake Total 570.75 / 585.75 1344.50 / 1344.50 120 / 120 Output Total 650 / 650 975 / 975 700 / 700 Balance -79.25 / -64.25 369.50 / 369.50 -580 / -580 General: Awake, Alert, Oriented x 3 HEENT: PERRL, EOMI, Sclera Non Icteric Neck: Supple, Good ROM, No Lymph Node Enlargement Lungs: Clear to auscultation Cardiovascular: Regular Rhythm, Normal S1, Normal S2, No Murmurs, No Rubs, No Gallops Vascular: No Carotid Bruits, Normal Femoral Pulses, Normal Radial Pulses, Normal Dorsalis Pedal Pulse, Normal Posterior Tibial Pulses Abdomen: Bowel Sounds Present, Soft, Non Tender, No HSM, No Organomegaly Extremities: No Cyanosis, No Clubbing, No edema Neurological: No Focal Motor or Sensory Deficit Rhythm: EKG: ECHO: Stress Test: Dobutamine echocardiogram negative for inducible ischemia. Cardiac Cath: PCI: CT Surgery: Holter monitor: EPS: PPM: CXR: Chest CT Scan: Medical Necessity - Tobacco Use Smoking Status: Former smoker Assessment/Plan 1. Atrial flutter/fibrillation: The patient presents with recurrent atrial fibrillation/atrial flutter, superimposed on substernal chest pressure and shortness of breath. Patient responded well to a Cardizem drip, and is currently rate controlled. His drip has been discontinued. His troponins are negative. His echocardiogram shows intact LV function with at least mild pulmonary pretension with an RVSP of 39 mmHg, but may be underestimated. The patient underwent a dobutamine echocardiogram today, 08/01/2019, which was negative for inducible ischemia. I do not believe he requires a diagnostic coronary angiogram at this time. He has remained in sinus rhythm. At this point I recommend the patient be continued on his Xarelto as he has a history of DVT, DVT filter, and paroxysmal atrial fibrillation as well as a fairly sedentary lifestyle which puts him at risk for recurrent DVT and possible pulmonary embolism. The patient was controlled at home with Lopressor 25 mg p.o. twice daily, which apparently was not enough to keep him under control. Recommend discontinuation of his Lopressor and switching him to Cardizem CD 180 mg p.o. daily. Also recommend keeping his potassium of 4.0, magnesium above 2.0, and his TSH is negative. 2. The patient may have obstructive sleep apnea which may be contributing to his paroxysmal atrial fibrillation. Recommend consideration of a sleep study as an outpatient. 3. Thank you very much for the opportunity to participate in the cardiac care of your patient. Patient may be discharged home and follow-up with Dr. Condon going forward. Code Visit Inpatient E&M: 14752 Subs Hosp L2
--- NOTE | 2019-08-01 13:52 | DCINST_ITS ---
You will use the following diet at home:: Cardiac Your food should be the consistency of: Regular Call your doctor if you observe: Shortness of breath, Chest pain, Increased palpitations (irregular heartbeat) Allergies/Adverse Reactions: Allergies duloxetine [From Cymbalta] Adverse Reaction (Verified 03/28/19 13:12) Other SERATONIN SYNDROME Medications to take at Discharge Lisinopril [Zestril] 20 mg PO DAILY 11/30/15 Albuterol Inhaler [Ventolin Hfa] 2 puff INHALATION Q6H PRN PRN 03/30/18 Clonazepam [Klonopin] 1 mg PO BID 03/30/18 Gabapentin [Neurontin] 300 mg PO TIDCM 03/30/18 Sertraline HCl [Zoloft] 100 mg PO QHS 03/30/18 Cyanocobalamin [Vitamin B12] 1,000 mcg IM Q30D 05/28/18 Dicyclomine HCl 10 mg PO TIDCM 09/14/18 Ferrous Sulfate 325 mg PO DAILY@0800 09/14/18 Omeprazole 40 mg PO DAILY 09/14/18 Oxycodone HCl 10 mg PO Q6H PRN PRN 02/19/19 Baclofen [Lioresal] 10 mg PO BID PRN PRN #0 02/21/19 Cyclobenzaprine HCl 10 mg PO TID PRN PRN #0 02/21/19 Hydrochlorothiazide [Hctz] 12.5 mg PO DAILY #0 02/21/19 fentaNYL patch [Duragesic patch] 25 mcg TRANSDERM. Q72H 02/21/19 allopurinol 100 mg tablet 100 mg PO DAILY 03/28/19 furosemide 40 mg tablet 40 mg PO DAILY tab 03/28/19 venlafaxine 50 mg tablet 50 mg PO BID 03/28/19 Ammonium Lactate 1 applic TP QHS 07/30/19 Calcium Carbonate/Vitamin D3 [Calcium 600 + Vit D Tablet] 1 ea PO BIDCM 07/30/19 Cbd Oil 1 dose PO DAILY 07/30/19 Cholecalciferol (Vitamin D3) [Vitamin D3] 2,000 unit PO DAILY 07/30/19 Ergocalciferol (Vitamin D2) [Vitamin D2] 50,000 unit PO MORALES 07/30/19 Famotidine/Ca Carb/Mag Hydrox [Tums Dual Action Tablet Chew] 3 tab PO Q6H PRN PRN 07/30/19 Nortriptyline HCl 75 mg PO QHS 07/30/19 Nystatin Powder [Mycostatin Powder] 1 applic TOPICAL BID 07/30/19 Rivaroxaban [Xarelto] 20 mg PO DAILY 07/30/19 Tamsulosin HCl [Flomax] 0.4 mg PO DAILY@1730 07/30/19 Acetaminophen [Tylenol Tablet] 650 mg PO Q6H PRN PRN tablet 08/01/19 Diltiazem CD [Cardizem CD] 180 mg PO DAILY #30 cap 08/01/19 The following prescriptions were given: Diltiazem CD [Cardizem CD] 180 mg PO DAILY #30 cap Transmission Status: Pending to [facility] Primary Care Physician: Kieran Beard MD [Primary Care Provider] - Within 2 Weeks Test Results: Test results from this visit will be discussed in further detail at your follow- up appointment, if applicable. Please Follow Up With: Chele Condon MD - cardiology When: 2-4 weeks Proposed Discharge Date: 08/01/19
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
--- NOTE | 2019-08-01 15:12 | CHAPLAIN ---
Type of Pastoral Visit ___ Initial Visit _x__ Follow-up Visit ___ On-call Visit ___ General Patient Visit ___ Spiritual Assessment ___ Family Conference ___ Bereavement ___ Rapid Response ___ Code Blue ___ Other (describe below) Pastoral Care Referral From _x__ Patient ___ Family ___ Nurse ___ Physician ___ Job Placement Specialist ___ Sales Property Manager ___ Other (describe below) Sacrament/Intervention _x__ Active listening ___ Anointing ___ Alevism ___ Bereavement ___ Communion _x__ Cyndi exploration ___ ___ Life review _x__ Prayer ___ Reconciliation ___ Sacrament of Sick ___ Supportive presence ___ Wedding ___ Other (describe below) Pastoral Comments
--- NOTE | 2019-08-01 15:19 | CASEMGMT ---
CHRISTY order, H&P, and D/C Summ/instructions faxed to [facility] in [place] at this time at [phone] and call to [facility] to notify of pt discharge at this time, voices understanding. HHC voices no further questions at this time. Per Paris DELGADILLO, pt states that he needs a ride home and PCU hospital secretary set up transport with [facility] transportation at this time. Marie DELGADILLO CM
== END 2019-08-01 15:40 | disposition home or self-care (01) | DRG 201 ==
LOC: ED 14:33 → PCU 16:53
PROVIDERS: Emergency Provider Emergency Medicine; Family Provider Family Medicine; PCP Family Medicine
DX: I48.92 Unspecified atrial flutter (principal); I48.91 Unspecified atrial fibrillation; Z68.43 Body mass index [BMI] 50.0-59.9, adult; M79.7 Fibromyalgia; I10 Essential (primary) hypertension; G62.9 Polyneuropathy, unspecified; E66.01 Morbid (severe) obesity due to excess calories; G89.29 Other chronic pain; Z87.891 Personal history of nicotine dependence; Z79.01 Long term (current) use of anticoagulants; Z86.718 Personal history of other venous thrombosis and embolism
CPT/HCPCS: 36415; 71045; 80048; 84443; 84484; 85025; 93005; 93017; 93306; 93350; 99285; J7040; Q9957; A4216; C8928; C8929; J3420

== ENCOUNTER 2020-01-15 21:34 | Emergency (ER) | payer MEDICAID, SELFPAY ==
[2019-08-13 10:02] VITALS: BMI 50.8
[2020-01-15 21:38] VITALS: BP 133/85; PULSE 88; RESP 17; TEMP 37.3; O2SAT 92; BMI 52.8
[2020-01-15 21:49] VITALS: BP 133/85; PULSE 88; RESP 17; TEMP 37.3; O2SAT 92
--- NOTE | 2020-01-15 22:30 | EKG12_ITS ---
Test Reason : FALL Blood Pressure : / mmHG Vent. Rate : 087 BPM Atrial Rate : 113 BPM P-R Int : 000 ms QRS Dur : 104 ms QT Int : 392 ms P-R-T Axes : 073 -61 043 degrees QTc Int : 471 ms Normal sinus rhythm with Premature atrial complexes Left axis deviation Low voltage QRS Cannot rule out Anterior infarct , inferior infarct-age undetermined Abnormal ECG Confirmed by MAGDA DOMINGUEZ ([id number]), department editor SKYE BARROSO ([id number]) on 01/20/2020 10:58:36 AM Referred By: Confirmed By:MAGDA DOMINGUEZ
--- NOTE | 2020-01-15 22:31 | CT_ITS ---
STUDY: CT BRAIN WITHOUT CONTRAST REASON FOR EXAM: Male, 59 years old. Altered mental status. Found on floor. TECHNIQUE: Transaxial CT imaging of the brain was performed without administration of intravenous contrast material. Individualized dose optimization techniques were used for this CT. COMPARISON: 01/27/2010 CT brain. FINDINGS: No evidence of intracranial hemorrhage, mass, infarct or hydrocephalus. No skull fracture. Visualized paranasal sinuses and mastoid air cells patent. Several dental caries partially visible. Visualized extracranial soft tissues unremarkable. ASPECTS [address]/Brain/Head without Contrast IMPRESSION: Negative CT brain without contrast. Electronically Signed: Juancho Alvarenga, at 23:10 EDT Tel , Service support ,
--- NOTE | 2020-01-15 22:31 | RAD_ITS ---
STUDY: X-RAY - RIGHT SHOULDER REASON FOR EXAM: Male, 59 years old. Pain after falling. TECHNIQUE: 3 view(s) of the shoulder. COMPARISON: None. FINDINGS: No visible fracture. No osseous destruction. Alignment anatomic. Mild degenerative changes. Soft tissues unremarkable. RAD/Shoulder min 2 Views IMPRESSION: No acute osseous abnormality. Electronically Signed: Juancho Alvarenga, at 23:22 EDT Tel , Service support ,
[2020-01-15 22:39] VITALS: BP 114/58; PULSE 83; RESP 17; O2SAT 93
[2020-01-15 22:46] LABS: Absolute Lymphocyte Count 2.06 X10^3/uL (0.83-4.51); Absolute Neutrophil Count 5.6 X10^3/uL (2.0-7.7); Basophil# 0.02 X10^3/uL; Basophil% 0.2 % (0-1); Eosinophils% 2.4 % (0-5); Hematocrit 40.9 % (40-54); Hemoglobin 13.5 g/dL (13.0-16.5); Lymphocyte # 2.06 X10^3/ul (4.0); Lymphocyte % 24.4 % (19-41); Mean Corpuscular Hgb 31.3 pg (27.0-32.0); Mean Corpuscular Volume 94.9 fL (80-94); Mean Platelet Vol. 9.8 fl (6.2-12.0); Monocyte# 0.53 X10^3/uL; Monocyte% 6.3 % (0-10); NRBC Flagged by Analyzer 0 % (0-5); Neutrophil % 66.3 % (47-70); Platelet Count 227 K/mm3 (150-450); RBC Distribution Width CV 12.7 % (11.6-14.6); RBC Distribution Width SD 44.7 fl (35.1-43.9); Red Blood Count 4.31 M/mm3 (4.6-6.2); White Blood Count 8.4 K/mm3 (4.4-11.0)
[2020-01-15] MEDS: 0.9% Normal Saline 1,000 ML 999 ML IV (22:47)
[2020-01-15 22:49] LABS: Mucous, Urine 0 SEEN /hpf (<or=2+); Red Blood Cells-Urine 0 SEEN /hpf (0-5); Squamous Epithelial Cells - UA 0 SEEN /hpf (0-5)
[2020-01-15 22:49] LABS: International Normalized Ratio 1.6; Prothrombin Time (Protime)PT. 18.3 SECONDS (11.7-14.9)
[2020-01-15 22:50] LABS: Partial Thromboplast Time 36.1 Seconds (24.1-36.2)
--- NOTE | 2020-01-15 22:56 | RAD_ITS ---
STUDY: X-RAY CHEST REASON FOR EXAM: Male, 59 years old. Pain after following. TECHNIQUE: AP COMPARISON: 07/30/2019 CXR FINDINGS: No apparent pneumothorax, pneumonia, pleural effusion, or edema. Eventration right hemidiaphragm unchanged. Cardiac silhouette, tom and mediastinal contours are within normal limits. No acute osseous abnormality. No evidence of free air under the diaphragm. RAD/Chest 1 View IMPRESSION: No acute findings. Electronically Signed: Juancho Alvarenga, at 23:21 EDT Tel , Service support ,
[2020-01-15 22:57] LABS: Color, Urine Yellow (Yellow); Glucose, Dipstick Normal (Normal); Ketone-Dipstick Negative (Negative); Leukocyte Esterase-Dipstick 25 /ul (Negative); Nitrite-Dipstick Positive (Negative); Occult Blood-Urine 10 /ul (Negative); Protein-Dipstick Negative (Negative); Urine Bilirubin Dipstick Negative (Negative); Urine Clarity Sl. Cloudy (Clear); Urine Urobilinogen Normal (Normal)
[2020-01-15 23:01] LABS: ALB/GLOB Ratio 0.8 RATIO (0.9-2.4); AST(SGOT) 27 U/L (15-37); Alanine Aminotransfer ALT/SGPT 20 U/L (16-61); Albumin, Serum 3.1 g/dL (3.2-5.0); Alkaline Phosphatase 120 U/L (45-117); Anion Gap 12 (5-15); BUN 8 mg/dL (7-18); BUN/Creat Ratio 9.4 RATIO (10-20); CPK Total, Creatine Kinase 112 U/L (39-308); Calcium,Total 7.7 mg/dL (8.5-10.1); Chloride 95 mmol/L (98-107); Creatinine, Serum 0.85 mg/dL (0.70-1.30); EST Glomerular Filtration Rate 98 mL/min (>60); Est Glom Filt Rate - Afr Amer 119 mL/min (>60); Estimated Creatinine Clearance 110.14 ml/min; Globulin 3.9 g/dL (2.2-4.2); Glucose 108 mg/dL (74-106); Potassium 3.1 mmol/L (3.5-5.1); Sodium Level 132 mmol/L (136-145)
[2020-01-15 23:17] LABS: Bacteria 1+ /hpf (None Seen); White Blood Cells 0-5 SEEN /hpf (0-5)
[2020-01-15 23:18] LABS: Lactic Acid 3.1 mmol/L (0.4-1.9)
--- NOTE | 2020-01-15 23:18 | ED.RN ---
LACTIC ACID 3.1, DR NOTIFIED
[2020-01-15 23:34] VITALS: BP 115/65; PULSE 86; RESP 17; TEMP 36.9; O2SAT 93
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
[2020-01-16 00:07] VITALS: BP 117/70; PULSE 80; RESP 16; TEMP 36.9; O2SAT 93
--- NOTE | 2020-01-16 00:24 | ED.RN ---
PER DR. NIDAYE. PT TO BE DISCHARGED, SECOND BLOOD CULTURE TO BE CANCELLED. DR. NDIAYE AT BEDSIDE WITH PT TO DISCUSS DISCHARGE.
[2020-01-16] MEDS: Cephalexin 250 MG Capsule 500 MG PO (00:32)
--- NOTE | 2020-01-16 00:41 | ED.RN ---
PT GIVEN WRITTEN AND VERBAL DISCHARGE INSTRUCTIONS. PT EDUCATED ON PAPERWORK, AND FOLLOW UP AND VERBALIZES UNDERSTANDING. PT CALLING FOR RIDE HOME. PT IV D/C AND COVERED WITH 2X2 GAUZE AND PAPER TAPE. PRESSURE APPLIED TO SITE FOR 2 MIN. PT D/C FROM TENANT SELECTOR. AWAITING RIDE.
[2020-01-16 01:02] VITALS: BP 119/51; PULSE 87; RESP 16; O2SAT 93
--- NOTE | 2020-01-16 01:04 | ED.RN ---
PT D/C WITH FRIEND MAIKEL.
[2020-01-16 02:39] LABS: Reflex Lactate? Y
== END 2020-01-16 01:04 | disposition home or self-care (01) ==
PROVIDERS: Emergency Provider Emergency Medicine; PCP Family Medicine
DX: F10.129 Alcohol abuse with intoxication, unspecified (principal); Y90.6 Blood alcohol level of 120-199 mg/100 ml; R82.71 Bacteriuria; I48.92 Unspecified atrial flutter; E66.01 Morbid (severe) obesity due to excess calories; F17.200 Nicotine dependence, unspecified, uncomplicated
CPT/HCPCS: 70450; 71045; 73030; 80053; 80320; 81001; 82550; 83605; 84484; 85025; 85610; 85730; 87040; 87077; 87086; 87088; 87186; 93005; 96360; 99285; J7030; A4216; G0480

== ENCOUNTER 2020-02-12 09:30 | Outpatient (RCR) | payer MEDICAID, SELFPAY ==
[2020-01-22 09:12] VITALS: BP 144/95; PULSE 80; RESP 18; TEMP 36.5; BMI 48.7
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
[2020-01-29 08:32] VITALS: BP 125/98; PULSE 116; RESP 18; TEMP 35.9; BMI 48.7
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
[2020-02-12 09:19] VITALS: BP 148/84; PULSE 78; RESP 18; TEMP 36.4; BMI 48.7
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
== END 2020-02-18 23:59 ==
LOC: WC 09:30
PROVIDERS: PCP Family Medicine; Visit Provider Nurse Practitioner
DX: L98.492 Non-pressure chronic ulcer of skin of other sites with fat layer exposed (principal); E66.01 Morbid (severe) obesity due to excess calories; G62.9 Polyneuropathy, unspecified; V00.141A Fall from scooter (nonmotorized), initial encounter; I10 Essential (primary) hypertension; I48.20 Chronic atrial fibrillation, unspecified; Z79.01 Long term (current) use of anticoagulants; Z79.51 Long term (current) use of inhaled steroids; Z82.49 Family history of ischemic heart disease and other diseases of the circulatory system; Z87.891 Personal history of nicotine dependence; Z88.8 Allergy status to other drugs, medicaments and biological substances; Z98.84 Bariatric surgery status; G89.29 Other chronic pain
CPT/HCPCS: 11042; 87070; 87075; 87205; 99213; G0463

== ENCOUNTER 2020-03-11 09:00 | Outpatient (RCR) | payer MEDICAID, SELFPAY ==
[2020-02-13 11:21] VITALS: BMI 48.7
[2020-02-19 00:34] VITALS: BP 148/84; PULSE 78; RESP 18; TEMP 36.4
[2020-02-19 09:29] VITALS: BP 127/74; PULSE 77; RESP 18; TEMP 37.1; BMI 48.7
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
[2020-03-04 08:25] VITALS: BP 176/102; PULSE 96; RESP 18; TEMP 35.6; BMI 48.7
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
== END 2020-03-20 23:59 ==
LOC: WC 09:00
PROVIDERS: PCP Family Medicine; Visit Provider Nurse Practitioner
DX: L98.491 Non-pressure chronic ulcer of skin of other sites limited to breakdown of skin (principal); T14.8XXA Other injury of unspecified body region, initial encounter; E66.01 Morbid (severe) obesity due to excess calories; G62.9 Polyneuropathy, unspecified; V00.141A Fall from scooter (nonmotorized), initial encounter
CPT/HCPCS: 11042

== ENCOUNTER → 2020-05-01 10:25 | Outpatient (CLI) | payer MEDICAID, SELFPAY ==
[2020-03-04 08:25] VITALS: BMI 48.7
== END ==
PROVIDERS: PCP Family Medicine; Referring Provider Clinical Nurse Specialist; Visit Provider Clinical Nurse Specialist
DX: R69 Illness, unspecified (principal)
CPT/HCPCS: 87635; C9803; U0003

== ENCOUNTER → 2020-05-07 09:30 | Outpatient (CLI) | payer MEDICAID, SELFPAY ==
[2020-03-04 08:25] VITALS: BMI 48.7
== END ==
PROVIDERS: PCP Family Medicine; Referring Provider Nurse Practitioner; Visit Provider Nurse Practitioner
DX: Z11.59 Encounter for screening for other viral diseases (principal)
CPT/HCPCS: 87635; C9803; U0003

== ENCOUNTER → 2020-08-12 | Outpatient (CLI) | payer MEDICAID, SELFPAY ==
[2020-03-04 08:25] VITALS: BMI 48.7
[2020-08-12 15:24] LABS: Absolute Lymphocyte Count 1.39 X10^3/uL (0.83-4.51); Absolute Neutrophil Count 3.3 X10^3/uL (2.0-7.7); Basophil# 0.02 X10^3/uL; Basophil% 0.4 % (0-1); Eosinophils% 1.9 % (0-5); Hematocrit 42.8 % (40-54); Hemoglobin 14.4 g/dL (13.0-16.5); Lymphocyte # 1.39 X10^3/ul (4.0); Mean Corp Hgb Conc 33.6 g/dL (32-36); Mean Corpuscular Hgb 32.4 pg (27.0-32.0); Mean Corpuscular Volume 96.2 fL (80-94); Mean Platelet Vol. 10.7 fl (6.2-12.0); Monocyte# 0.36 X10^3/uL; NRBC Flagged by Analyzer 0 % (0-5); Neutrophil # 3.26 X10^3/uL (2.7-7.7); Neutrophil % 63.3 % (47-70); Platelet Count 169 K/mm3 (150-450); RBC Distribution Width CV 13.3 % (11.6-14.6); RBC Distribution Width SD 47.5 fl (35.1-43.9); Red Blood Count 4.45 M/mm3 (4.6-6.2); White Blood Count 5.2 K/mm3 (4.4-11.0)
--- NOTE | 2020-08-12 15:40 | RAD_ITS ---
STUDY: X-RAY - LEFT SHOULDER REASON FOR EXAM: Male, 60 years old. SHOULDER PAIN. NO RECENT KNOWN INJURY TECHNIQUE: 4 view(s) of the shoulder. COMPARISON: None. FINDINGS: Normal glenohumeral articulation. Normal acromioclavicular joint. Normal acromion. Normal humeral head and visualized proximal humerus. The soft tissue structures are unremarkable. Normal visualized pulmonary apex. RAD/Shoulder min 2 Views IMPRESSION: Normal x-ray examination of the shoulder. Electronically Signed: Mark Anthony Ingram DO at 11:14 EST Tel , Service support ,
--- NOTE | 2020-08-12 15:40 | RAD_ITS ---
STUDY: X-RAY - RIGHT SHOULDER REASON FOR EXAM: Male, 60 years old. SHOULDER PAIN. NO KNOWN RECENT INJURY TECHNIQUE: 4 view(s) of the shoulder. COMPARISON: None. FINDINGS: Normal glenohumeral articulation. There is degenerative arthrosis of the acromioclavicular joint without inferior osseous spur formation. Normal acromion. Normal humeral head and visualized proximal humerus. The soft tissue structures are unremarkable. Normal visualized pulmonary apex. RAD/Shoulder min 2 Views IMPRESSION: Minimal AC joint degenerative changes Electronically Signed: Mark Anthony Ingram DO at 11:13 EST Tel , Service support ,
--- NOTE | 2020-08-12 15:40 | RAD_ITS ---
STUDY: X-RAY - LUMBAR SPINE REASON FOR EXAM: Male, 60 years old. LOW BACK PAIN TECHNIQUE: 3 view(s) of the lumbar spine were obtained. COMPARISON: None FINDINGS: Normal lumbar lordosis. There is a dextroscoliosis of the lumbar spine. There is a normal alignment of the vertebrae. IVC filter is noted There is multilevel endplate spondylosis of the lumbar vertebrae. There is multi-level degenerative disc disease with multi-level disc space narrowing. There is no demonstrated fracture. The soft tissue structures are unremarkable. RAD/Lumbar Spine 2 or 3 Views IMPRESSION: Degenerative changes of the spine, as detailed above. Electronically Signed: Mark Anthony Ingram DO at 11:13 EST Tel , Service support ,
--- NOTE | 2020-08-12 15:40 | RAD_ITS ---
STUDY: X-RAY - ABDOMEN/PELVIS REASON FOR EXAM: Male, 60 years old. LOW BACK PAIN TECHNIQUE: AP supine and upright views of the abdomen and pelvis. COMPARISON: None. FINDINGS: Normal visualized lung bases. There is an abundance of fecal material throughout the colon. There is no demonstrated free abdominal air. The visualized liver, spleen and kidneys are grossly normal in size and morphology. IVC filter is noted Normal soft tissue structures. Normal visualized osseous structures. RAD/Abd Inc Decub and/or Erect IMPRESSION: Moderate to abundant constipation Electronically Signed: Mark Anthony Ingram DO at 10:56 EST Tel , Service support ,
--- NOTE | 2020-08-12 15:40 | RAD_ITS ---
STUDY: X-RAY - CERVICAL SPINE REASON FOR EXAM: Male, 60 years old. NECK PAIN TECHNIQUE: 5 view(s) of the cervical spine were obtained. COMPARISON: None FINDINGS: Normal anterior atlantoaxial articulation. Normal odontoid process. Normal cervical lordosis. There is multi-level endplate spondylosis. There is multi-level degenerative disc disease with multilevel disc space narrowing. The soft tissue structures are unremarkable. RAD/Cerv Spine 2 or 3 Views IMPRESSION: Mild multilevel degenerative disc disease Electronically Signed: Mark Anthony Ingram DO at 11:12 EST Tel , Service support ,
[2020-08-12 16:15] LABS: Vitamin D,25 Hydroxy 12.2 ng/mL
[2020-08-12 16:23] LABS: ALB/GLOB Ratio 0.8 RATIO (0.9-2.4); AST(SGOT) 27 U/L (15-37); Alanine Aminotransfer ALT/SGPT 22 U/L (16-61); Albumin, Serum 3.2 g/dL (3.2-5.0); Alkaline Phosphatase 133 U/L (45-117); Anion Gap 6 (5-15); BUN 12 mg/dL (7-18); BUN/Creat Ratio 14.7 RATIO (10-20); Calcium,Total 7.6 mg/dL (8.5-10.1); Chloride 102 mmol/L (98-107); Creatinine, Serum 0.82 mg/dL (0.70-1.30); EST Glomerular Filtration Rate 103 mL/min (>60); Est Glom Filt Rate - Afr Amer 124 mL/min (>60); Globulin 3.8 g/dL (2.2-4.2); Glucose 80 mg/dL (74-106); PSA,Total - Annual Screen 0.11 ng/mL (0.00-4.00); Potassium 4.1 mmol/L (3.5-5.1); Sodium Level 138 mmol/L (136-145); Thyroid Stim Hormone (TSH) 0.98 uIU/mL (0.358-3.74); Uric Acid 6.1 mg/dL (3.5-7.2)
[2020-08-14 05:07] LABS: HEPATITIS B SURFACE AG Negative (Negative); Hepatitis A AB, Total Negative (Negative); Hepatitis A IgM Antibody Negative (Negative); Hepatitis B Core AB IgM Negative (Negative); Hepatitis B Core Ab Total Negative (Negative); Hepatitis C Ab 0.1 s/co ratio (0.0-0.9)
[2020-08-17 09:54] LABS: Hep B Surface Antibodies Non Reactive (.)
== END | disposition home or self-care (01) ==
PROVIDERS: PCP Family Medicine Geriatric Medicine; Referring Provider Family Medicine Geriatric Medicine; Visit Provider Family Medicine Geriatric Medicine
DX: Z13.89 Encounter for screening for other disorder (principal); R53.83 Other fatigue; M10.9 Gout, unspecified; Z12.5 Encounter for screening for malignant neoplasm of prostate; E55.9 Vitamin D deficiency, unspecified; N39.0 Urinary tract infection, site not specified; M54.5 Low back pain; M54.2 Cervicalgia; M19.011 Primary osteoarthritis, right shoulder; M25.512 Pain in left shoulder; M25.511 Pain in right shoulder
CPT/HCPCS: 36415; 72040; 72100; 73030; 74019; 80053; 82306; 84153; 84443; 84550; 85025; 86704; 86705; 86706; 86708; 86709; 86803; 87086; 87088; 87340; G0103

== ENCOUNTER → 2020-08-25 13:54 | Outpatient (CLI) | payer MEDICAID, SELFPAY ==
[2020-08-18 13:57] VITALS: BMI 53.6
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
== END ==
PROVIDERS: PCP Family Medicine Geriatric Medicine; Referring Provider Physician Assistant Medical; Visit Provider Physician Assistant Medical
DX: S06.9X9A Unspecified intracranial injury with loss of consciousness of unspecified duration, initial encounter (principal); W05.1XXA Fall from non-moving nonmotorized scooter, initial encounter
CPT/HCPCS: 70450

== ENCOUNTER → 2020-11-10 11:20 | Outpatient (CLI) | payer MEDICAID, SELFPAY ==
[2020-08-18 13:57] VITALS: BMI 53.6
[2020-11-10 12:15] LABS: Absolute Lymphocyte Count 1.01 X10^3/uL (0.83-4.51); Absolute Neutrophil Count 3.7 X10^3/uL (2.0-7.7); Basophil# 0.02 X10^3/uL; Basophil% 0.4 % (0-1); Eosinophil# 0.07 X10^3/uL; Eosinophils% 1.3 % (0-5); Hematocrit 45.9 % (40-54); Hemoglobin 15.2 g/dL (13.0-16.5); Lymphocyte # 1.01 X10^3/ul (4.0); Lymphocyte % 19.2 % (19-41); Mean Corp Hgb Conc 33.1 g/dL (32-36); Mean Corpuscular Volume 96.6 fL (80-94); Monocyte# 0.48 X10^3/uL; Monocyte% 9.1 % (0-10); NRBC Flagged by Analyzer 0 % (0-5); Neutrophil # 3.66 X10^3/uL (2.7-7.7); Neutrophil % 69.8 % (47-70); Platelet Count 193 K/mm3 (150-450); RBC Distribution Width CV 13.8 % (11.6-14.6); RBC Distribution Width SD 49.7 fl (35.1-43.9); Red Blood Count 4.75 M/mm3 (4.6-6.2); White Blood Count 5.3 K/mm3 (4.4-11.0)
[2020-11-10 12:31] LABS: Vitamin D,25 Hydroxy 15.7 ng/mL
[2020-11-10 12:41] LABS: ALB/GLOB Ratio 0.8 RATIO (0.9-2.4); AST(SGOT) 25 U/L (15-37); Alanine Aminotransfer ALT/SGPT 21 U/L (16-61); Albumin, Serum 3.2 g/dL (3.2-5.0); Alkaline Phosphatase 146 U/L (45-117); Anion Gap 8 (5-15); BUN 10 mg/dL (7-18); BUN/Creat Ratio 11.2 RATIO (10-20); Calcium,Total 7.9 mg/dL (8.5-10.1); Chloride 102 mmol/L (98-107); Creatinine, Serum 0.89 mg/dL (0.70-1.30); EST Glomerular Filtration Rate 92 mL/min (>60); Est Glom Filt Rate - Afr Amer 112 mL/min (>60); Globulin 4.1 g/dL (2.2-4.2); Glucose 124 mg/dL (74-106); Protein, Total 7.3 g/dL (6.4-8.2); Sodium Level 140 mmol/L (136-145); Thyroid Stim Hormone (TSH) 1.86 uIU/mL (0.358-3.74); Uric Acid 8.8 mg/dL (3.5-7.2)
== END ==
PROVIDERS: PCP Family Medicine Geriatric Medicine; Visit Provider Family Medicine Geriatric Medicine
DX: E55.9 Vitamin D deficiency, unspecified (principal); I10 Essential (primary) hypertension; M10.9 Gout, unspecified
CPT/HCPCS: 36415; 80053; 82306; 84443; 84550; 85025

== ENCOUNTER → 2020-11-24 12:42 | Outpatient (CLI) | payer MEDICAID, SELFPAY ==
[2020-08-18 13:57] VITALS: BMI 53.6
--- NOTE | 2020-11-24 12:44 | ART_ITS ---
Reason For Study: PAOD Procedure A bilateral lower extremity continuous wave Doppler with analog waveform analysis and ankle brachial indexes. Left Segmental Pressures Left brachial= 215mmHg. Left posterior tibial artery = 224mmHg. Left dorsalis pedis artery = 232mmHg. The left dorsalis pedis waveforms are triphasic. The left posterior tibial artery waveforms are triphasic. Right Segmental Pressures Right brachial= 193mmHg. Right posterior tibial artery = 245mmHg. Right dorsalis pedis artery = 228mmHg. The right dorsalis pedis waveforms are triphasic. The right posterior tibial artery waveforms are triphasic. Indices The right ankle brachial index by the dorsalis pedis is 1.06. The right ankle brachial index by the posterior tibial artery is 1.14. The left ankle brachial index by the dorsalis pedis is 1.08. The left ankle brachial index by the posterior tibial artery is 1.04. Brachial pressure taken manually with a pressure of 178/100. VL/Ankle Brachial Index Interpretation Summary Triphasic Doppler waveforms are noted at ankle level bilaterally. Pulse-volume recordings appear satisfactory at ankle level bilaterally. Resting ankle-brachial indices are nor mal bilaterally. There is no evidence of significant arterial occlusive disease in the lower ext remities bilaterally. Systolic pressures are elevated. Ordering Physician: Chalo Mclean Performed By: Noble Post RVT and Student
--- NOTE | 2020-11-24 12:47 | ART_ITS ---
Reason For Study: PAOD Procedure A bilateral upper extremity continuous wave Doppler with analog waveform analysis and segmental pressures. Left Segmental Pressures Left brachial= 228mmHg. Left ulnar= 231mmHg. Left radial= 199mmHg. The left radial waveforms are triphasic. The left ulnar waveforms are triphasic. Right Segmental Pressures Right brachial= 194mmHg. Right ulnar= 209mmHg. Right radial= 221mmHg. The right radial waveforms are triphasic. The right ulnar waveforms are triphasic. Indices The right wrist-brachial index is .97. The left wrist-brachial index is 1.01. VL/Ankle Brachial Index Interpretation Summary Triphasic Doppler waveforms are noted at wrist level bilaterally. Pulse-volume recordings appear satisfactory at wrist level bilaterally. Wrist-brachial indices are normal bila terally. There is no evidence of significant arterial occlusive disease in the upper ext remities bilaterally. Systolic and diastolic pressures are elevated. Ordering Physician: Chalo Mclean Referring Physician: Chalo Mclean Chi Performed By: Noble Post RVT and Student
== END ==
PROVIDERS: PCP Family Medicine Geriatric Medicine; Referring Provider Family Medicine Geriatric Medicine; Visit Provider Family Medicine Geriatric Medicine
DX: I73.9 Peripheral vascular disease, unspecified (principal)
CPT/HCPCS: 93922

== ENCOUNTER → 2020-11-30 09:41 | Outpatient (CLI) | payer MEDICAID, SELFPAY ==
[2020-08-18 13:57] VITALS: BMI 53.6
== END ==
PROVIDERS: PCP Family Medicine Geriatric Medicine; Visit Provider Family Medicine Geriatric Medicine
DX: Z03.818 Encounter for observation for suspected exposure to other biological agents ruled out (principal)
CPT/HCPCS: 36415; 86769

== ENCOUNTER → 2020-12-02 09:13 | Outpatient (CLI) | payer MEDICAID, SELFPAY ==
[2020-08-18 13:57] VITALS: BMI 53.6
--- NOTE | 2020-12-02 09:23 | BI_ITS ---
MAMMOGRAPHY - BILATERAL DIAGNOSTIC REASON FOR EXAM: Male, 60 years old. Bilateral breast lumps for one week. PERTINENT HISTORY: Non-contributory. TECHNIQUE: Digital bilateral breast brown (3D mammographic acquisition) in the CC and MLO projections. 2-D mediolateral oblique (MLO) and craniocaudad (CC) views of both breasts were obtained. CAD: Full Field Digital Mammography with Computer Added Detection was performed. COMPARISON: None. Baseline examination. FINDINGS: Breast Composition: The breasts are almost entirely fatty. There are no dominant masses or suspicious calcifications. Prominent venous structures in both upper medial aspects of the breasts. No other significant abnormalities are identified. BI/DIAG MAMM W/CAD, BILAT IMPRESSION: Negative diagnostic mammogram. With the patient''s history of bilateral breast lumps, correlation with a bilateral breast ultrasound is recommended. ASSESSMENT CATEGORY: BIRADS Category 0: Incomplete. Need additional imaging evaluation. A letter regarding these results will be sent to the patient by the facility within 30 days. Approximately 10% of breast cancers are not detected by mammography. A normal mammogram should not delay biopsy of a clinically suspicious abnormality. Electronically Signed: Cole Hopper MD at 11:16 EDT , Service support ,
--- NOTE | 2020-12-02 09:23 | US_ITS ---
STUDY: ULTRASOUND BREAST - RIGHT REASON FOR EXAM: Male, 60 years old. Right breast mass. TECHNIQUE: Axial and longitudinal images of the RIGHT breast were performed with a high resolution ultrasound transducer. # OF IMAGES: 42 COMPARISON: Comparison is made with prior mammogram done earlier today. FINDINGS: RIGHT Breast: There is a 2.7 cm by 2.1 cm x 1.5 cm slightly echogenic mass in the superior medial aspect of the chest. This is cephalad to the breast. This may represent a lipoma. IMPRESSION: The palpable abnormality responsive to 0.7 cm x 2.1 cm 1.5 cm slightly echogenic mass in the superior medial aspect of the chest cephalad to the breast. This may represent a lipoma. Clinical correlation is recommended. ASSESSMENT CATEGORY: BIRADS Category 2: Benign. A letter regarding these results will be sent to the patient by the facility within 30 days. Electronically Signed: Cole Hopper MD at 13:57 EDT , Service support , STUDY: ULTRASOUND BREAST - LEFT REASON FOR EXAM: Male, 60 years old. Palpable lump left breast. TECHNIQUE: Axial and longitudinal images of the LEFT breast were performed with a high resolution ultrasound transducer. # OF IMAGES: 42 COMPARISON: Comparison is made with prior mammogram done earlier in the day. FINDINGS: LEFT Breast: The palpable abnormality corresponds to a 3.2 cm x 3.2 cm x 0.9 cm slightly echogenic soft tissue density in the upper medial aspect of the chest cephalad to the left breast. This may represent a lipoma. Clinical correlation is recommended. US/Breast Limited Unilateral IMPRESSION: 3.2 cm x 3.2 cm x 0.9 cm slightly echogenic soft tissue density in the upper medial aspect of the chest cephalad to the left breast. Clinical correlation is recommended. ASSESSMENT CATEGORY: BIRADS Category 2: Benign. A letter regarding these results will be sent to the patient by the facility within 30 days. Electronically Signed: Cole Hopper MD at 13:58 EDT , Service support ,
== END ==
PROVIDERS: PCP Family Medicine Geriatric Medicine; Referring Provider Family Medicine Geriatric Medicine; Visit Provider Family Medicine Geriatric Medicine
DX: N63.10 Unspecified lump in the right breast, unspecified quadrant (principal)
CPT/HCPCS: 76642; 77062; 77066; G0279

== ENCOUNTER 2020-12-14 13:30 | Outpatient (RCR) | payer MEDICAID, SELFPAY ==
[2020-08-18 13:57] VITALS: BMI 53.6
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
--- NOTE | 2020-10-09 15:10 | HP.PTREVAL ---
Dr. Chalo Mclean MD, It has been my pleasure to treat CARLIN SMITH over the last 12 visits for CERVICAL AND LUMBAR DDD. Please see the progress note below for an update on the physical therapy plan of care! Subjective: PATIENT REPORTS HIS STRENGTH AND ENDURANCE HAS INCREASED. HE STATES HIS ROM IS BETTER TOO. STATES HE IS HAPPY TO BE MOVING UP IN REPS AND WEIGHT ALMOST EVERY SESSION. STATES HE IS LESS DEPENDENT ON HIS CANE AND NOT SHAKY IN HIS LEGS. PATIENT REPORTS HIS RIGHT NECK AND SHOULDER PAIN IS GETTING WORSE. HE REPORTS HE KNOWS HE IS PUSHING HIMSELF TOO HARD WITH THE EX'S AND HE THINKS THERE ARE OTHER FACTORS LIKE THE WEATHER. STATES SOME DAYS THE EX'S BOTHER HIS SHLD AND SOMETIMES THEY DON'T. PATIENT REQUESTING TO CHANGE TO AQUATIC THERAPY DUE TO BEING LIMITED ON LAND BY HIS PAIN AND ESPECIALLY HIS FOOT PAIN. PATIENT IS HOPING TO BE ABLE TO TRANSITION TO PLANET FITNESS AFTER FORMAL PT CONCLUDES. Objective/Function: PATIENT WAS SEEN TODAY FOR RE-ASSESSMENT OF PROGRESS TOWARD THE SET PT GOALS AND THE NEED FOR FURTHER PHYSICAL THERAPY VS READINESS FOR DISCHARGE. PATIENT IS MAKING SLOW PROGRESS TOWARD ALL PT GOALS AND IS A GOOD CANDIDATE TO CONTINUE FORMAL PT BASED ON PROGRESS MADE AND ROOM FOR FURTHER IMPROVEMENT. UPON EXAM TODAY: ANTALGIC INDEP GAIT X APPROX 300 FEET X 2 WITH STRAIGHT CANE, INCREASED TRUNK FLEXION, SHORT SARA STRIDE LENGTH (BUT IMPROVED) AND DECREASED CADANCE (AGAIN - IMPROVED). (PATIENT REQUESTED A W/C TO GET BACK TO TREATMENT ROOM AT INITIAL EVAL) HAS A SCOOTER. INDEP'LY WALKED INTO [employer] FROM PARKING LOT TO OUR LOBBY, BACK TO THE TREATMENT ROOM AND BACK OUT TO LOBBY TODAY. INDEP BUT GREAT DIFFICULTY TRANSITIONING FROM SIT TO STAND AND UE DEPENDENT TO DO SO. DIFFICULTY INITIATING GAIT AFTER SITTING. FAIR STATIC AND DYNAMIC BALANCE (ONE FALL SINCE STARTING THERAPY AND HAD TO BE HELPED UP BY SQUAD). Motor deficit: SARA UE AND LE WEAKNESS. RIGHT SHLD GROSSLY 2-/5, LEFT SHLD 4-/5. 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 PATIENT IS RIGHT HAND DOMINANT. L ELBOW FLEX/EXT 5/5, R ELBOW FLEX/EXT 4/5/5/5. SARA LE WEAKNESS: HIPS 4-/5, KNEE EXT 4/5, KNEE FLEX 4/5, ANKLE DORSIFLEXION 4-/5. Sensory deficit: SARA LE LIGHT TOUCH SENSATION APPEARS INTACT BUT FEET NT - DX'D WITH VASCULAR CALCIFICATION OF NERVES IN FEET. ROM deficit: TIGHT SARA LE HIPS ALL PLANES, TIGHT SARA HS AND GASTROC SOLEUS COMPLEX'S. Reflexes: NT. Dural Signs: NEGATIVE SARA LE'S. Cervical Mvmt Loss: Flex: NIL. Pro: NIL. Ext: MOD. Ret: SUZY. RSB: MOD. LSB: MIN. R Rot: MOD. L Rot: MIN. PATIENT C/O INCRASED NECK PAIN WITH CERVICAL ROM TESTING ALL PLANES. Lumbar mvmt loss: FLEX - MOD. EXT - SUZY. RSG - SUZY. LSG - MOD. (PATIENT REFUSED TESTING AT EVAL). Core strength: POOR. Postural strength: POOR Plan Plan: FALL RISK. ALSO HAS DECREASED SITTING BALANCE. AQUATIC THERAPY FOR PAIN RELIEF,. GAIT TRAINING. BALANCE TRAINING. POSTURE CORRECTION/STRENGTHENING, INSTRUCTION IN APPROPRIATE BODY MECHANICS AND ACTIVITY MODIFICATIONS. DLS WITH A NEUTRAL SPINE. SARA UE AND LE ROM, STRETCHING AND STRENGTHENING. HEP INSTRUCTION. CONSIDER AQUATIC THERAPY IF PATIENT IS ABLE TO GET STRONG ENOUGH TO GET READY AND GET IN AND OUT OF POOL INDEP'LY. Goals Goal 1:: DECREASE C/O GENERAL UPPER BODY AND LOWER BODY PAIN Goal Time Frame: 4-6 Weeks Goal Progress: Progressing Goal 2:: IMPROVE PERSONAL CARE, LIFTING, READING, BENDING, STANDING, WALKING, WORK, DRIVING AND RECREATIONAL FUNCTION. Goal Time Frame: 4-6 Weeks Goal Progress: Progressing Goal 3:: INSTRUCT IN PROPHYLAXIS Goal Time Frame: 4-6 Weeks Goal Progress: Progressing Anticipated Interventions Patient/Client Instruction: Educate patient on: Condition, Plan of Care, Risk Factors, Benefits of Fitness Program For the Purpose of:: To improve self management Therapeutic Exercise to Include: Strength training, Endurance training, Balance training, Body mechanics, Postural training, Flexibilty training, Gait and locomotor training, Neuromotor development, In an aquatic setting, Dynamic Lumbar Stabilization, Scapular Strength/Stabilization For the Purpose of:: To decrease pain, To increase ROM, To improve muscle performance and motor function, To increase tolerance to activity/condition/position, To improve ability of physical actions for home/community/work/leisure, To improve gait and locomotor functions Please do not hesitate to contact me at [phone] by phone or if you have questions or concerns regarding this new plan of care! Sincerely, Kirsten Painter, PT, Cert MDT
--- NOTE | 2020-11-09 14:19 | HP.PTREVAL ---
Dr. Chalo Mclean MD, It has been my pleasure to treat CARLIN SMITH over the last 21 visits for CERVICAL AND LUMBAR DDD. Please see the progress note below for an update on the physical therapy plan of care! Subjective: PATIENT REPORTS THE POOL HAS BEEN GOOD AT HELPING BUT HE STILL HAS A LONG WAY TO GO. PATIENT REPORTS A MARKED INCREASE IN HIS STABILITY AND ABILITY TO WALK WITHOUT HIS CANE. STATES HE IS ABLE TO EX IN THE POOL WITH LESS PAIN THAN ON LAND. PATIENT REPORTS HE WOULD LIKE TO CONTINUE HIS PT IN THE POOL VS LAND IF POSSIBLE. I SEE THE IMPROVEMENTS AND IT DRIVES ME TO WANT TO DO BETTER. Objective/Function: PATIENT WAS SEEN TODAY FOR RE-ASSESSMENT OF PROGRESS TOWARD THE SET PT GOALS AND THE NEED FOR FURTHER PHYSICAL THERAPY VS READINESS FOR DISCHARGE. Good tolerance to all physical therapy interventions. Signficant improvement thus far when compared to first several visits where he arrived in a wheelchair. Now ambulating wihtout AD. UPON EXAM TODAY: ANTALGIC INDEP GAIT X APPROX 400 FEET X 2 WITHout AD INCREASED TRUNK FLEXION, SHORT SARA STRIDE LENGTH (BUT IMPROVED) AND DECREASED CADANCE (AGAIN - IMPROVED). (PATIENT REQUESTED A W/C TO GET BACK TO TREATMENT ROOM AT INITIAL EVAL) HAS A SCOOTER. INDEP'LY WALKED INTO [employer] FROM PARKING LOT TO OUR LOBBY, BACK TO THE POOL, TO A TREATMENT ROOM AND BACK OUT TO LOBBY TODAY WITHOUT AD OR LOB. INDEP TRANSITIONING FROM SIT TO STAND WITH ONE UE ASSIST TODAY. JUST A LITTLE DIFFICULTY INITIATING GAIT AFTER SITTING. GOOD STATIC AND DYNAMIC BALANCE (ONE FALL SINCE STARTING THERAPY AND HAD TO BE HELPED UP BY SQUAD BUT THAT WAS OVER A MONTH AGO). Motor deficit: SARA UE AND LE WEAKNESS. RIGHT SHLD GROSSLY 3-/5, LEFT SHLD 4/5. 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 PATIENT IS RIGHT HAND DOMINANT. L ELBOW FLEX/EXT 5/5, R ELBOW FLEX/EXT 5/5 SARA LE WEAKNESS: HIPS 4-/5, KNEE EXT 5/5, KNEE FLEX 5/5, ANKLE DORSIFLEXION 5/5. Sensory deficit: SARA LE LIGHT TOUCH SENSATION APPEARS INTACT BUT FEET NT - DX'D WITH VASCULAR CALCIFICATION OF NERVES IN FEET. ROM deficit: TIGHT SARA LE HIPS ALL PLANES, TIGHT SARA HS AND GASTROC SOLEUS COMPLEX'S. Reflexes: NT. Dural Signs: NEGATIVE SARA LE'S. Cervical Mvmt Loss: Flex: NIL. Pro: NIL. Ext: MIN. Ret: SUZY. RSB: NIL. LSB: NIL. R Rot: MIN. L Rot: NIL. PATIENT C/O INCRASED NECK PAIN WITH CERVICAL ROM TESTING INTO L ROT. Lumbar mvmt loss: FLEX - MOD. EXT - SUZY. RSG - SUZY. LSG - MOD. Core strength: POOR. Postural strength: POOR Plan Plan: *Progress all. CONTINUE AQUATIC THERAPY DECREASING TO 2X'S A WEEK TO HELP PATINET TRANSITION TO INDEP POOL EX AND WHILE PATIENT TRIES TO PURSUE MEMBERHIP TO START [employer] POOL EX'S. FALL RISK. AQUATIC THERAPY FOR PAIN RELIEF, BALANCE TRAINING. POSTURE CORRECTION/STRENGTHENING, INSTRUCTION IN APPROPRIATE BODY MECHANICS AND ACTIVITY MODIFICATIONS. DLS WITH A NEUTRAL SPINE. SARA UE AND LE ROM, STRETCHING AND STRENGTHENING. HEP INSTRUCTION. Goals Goal 1:: DECREASE C/O GENERAL UPPER BODY AND LOWER BODY PAIN Goal Time Frame: 4-6 Weeks Goal Progress: Progressing Goal 2:: IMPROVE PERSONAL CARE, LIFTING, READING, BENDING, STANDING, WALKING, WORK, DRIVING AND RECREATIONAL FUNCTION. Goal Time Frame: 4-6 Weeks Goal Progress: Progressing Goal 3:: INSTRUCT IN PROPHYLAXIS Goal Time Frame: 4-6 Weeks Goal Progress: Progressing Anticipated Interventions Patient/Client Instruction: Educate patient on: Condition, Plan of Care, Risk Factors, Benefits of Fitness Program For the Purpose of:: To improve self management Therapeutic Exercise to Include: Strength training, Endurance training, Balance training, Body mechanics, Postural training, Flexibilty training, Gait and locomotor training, Neuromotor development, In an aquatic setting, Dynamic Lumbar Stabilization, Scapular Strength/Stabilization For the Purpose of:: To decrease pain, To increase ROM, To improve muscle performance and motor function, To increase tolerance to activity/condition/position, To improve ability of physical actions for home/community/work/leisure, To improve gait and locomotor functions Please do not hesitate to contact me at [phone] by phone or if you have questions or concerns regarding this new plan of care! Sincerely, Kirsten Painter, PT, Cert MDT
--- NOTE | 2020-12-14 14:26 | HP.PTDCSUM ---
It has been my pleasure to treat CARLIN SMITH referred by Dr. Chalo Mclean MD, with the diagnosis of CERVICAL AND LUMBAR DDD for a total of 30 visit(s). Discharge Date: Please see the following information for a summary of their discharge status. Subjective: PATIENT REPORTS HE HAD A BAD FALL LAST WEEK - MONDAY. STATES HE HAS HAD A COUPLE OF FALLS BUT ONLY ONE BAD ONE. STATES THE SQUAD HAD TO GET HIM UP. PATIENT REPORTS SHE DID NOT TELL THE THERAPIST ABOUT HIS FALL LAST VISIT. STATES HE NOTICED DIFFICULTY USING HIS R LEG MONDAY. STATES HE PLANS TO FOLLOW UP WITH DR. MCLEAN SOON BUT HASN'T MADE AN SPENCER'T YET. THIS PT ENCOURAGED FOLLOW UP WITH DR. MCLEAN SOON POSSIBLE. PATIENT REPORTS HE DOES NOT LIKE GOING TO THE DOCTOR. PATIENT REPORTS THE SWELLING IN HIS LEGS IS BETTER. PATIENT REPORTS THAT THE SWELLING HE HAS IN HIS LEGS NOW IS NORMAL FOR HIM. PATIENT REPORTS HE HASN'T BEEN ABLE TO FIGURE OUT WHERE TO GET A MEMBERSHIP FOR POOL EX OR TRANSPORTATION YET. PATIENT REPORTS HE HAS COME A LONG WAY AND HE IS REALLY HAPPY WITH EVERYONE THAT HAS WORKED WITH HIM HERE. HE REPORTS HE IS DOING HIS HEP AND HE FEELS IT WOULD BE BEST FOR HIM TO TRY TO CONTINUE TO FIGURE THINGS OUT ON HIS OWN. HE STATES HE WOULD LIKE TO STOP FORMAL PT AT THIS TIME. PATIENT REPORTS HE IS SETTING HIMSELF SOME GOALS AND HE DOES NOT WANT TO SCHEDULE MORE PT UNTIL HE FOLLOWS UP WITH DR. MCLEAN AND HIS INSURANCE. STATES HE IS HAVING MORE GOOD DAYS THAN BAD DAYS NOW. General pain Pain Intensity (Out of 10): 7 Lumbar Spine Pain Intensity (Out of 10): 7 % Improvement: 70 Objective/Function: PATIENT WAS SEEN TODAY FOR RE-ASSESSMENT OF PROGRESS TOWARD THE SET PT GOALS AND THE NEED FOR FURTHER PHYSICAL THERAPY VS READINESS FOR DISCHARGE. PATIENT'S PROGRESS IS PLATEAUING. Good tolerance to all physical therapy interventions. Signficant improvement thus far when compared to first several visits where he arrived in a wheelchair. Now ambulating wihtout AD. UPON EXAM TODAY: ANTALGIC INDEP GAIT X APPROX 400 FEET X 2 WITHout AD INCREASED TRUNK FLEXION, SHORT SARA STRIDE LENGTH (SIMILAR TO LAST RE-CHECK) AND DECREASED CADANCE (AGAIN - IMPROVED OVER-ALL BUT SIMILAR TO LAST RE-CHECK). (PATIENT REQUESTED A W/C TO GET BACK TO TREATMENT ROOM AT INITIAL EVAL) HAS A SCOOTER. LIVAN'BRIAN WALKED INTO investUP FROM PARKING LOT TO OUR LOBBY, BACK TO A TREATMENT ROOM AND BACK OUT TO LOBBY TODAY WITHOUT AD OR LOB. INDEP TRANSITIONING FROM SIT TO STAND WITH ONE UE ASSIST TODAY. JUST A LITTLE DIFFICULTY INITIATING GAIT AFTER SITTING. GOOD STATIC AND DYNAMIC BALANCE TODAY (BUT PATIENT IS STILL FALLIING - SEE ABOVE). Motor deficit: SARA UE AND LE WEAKNESS. RIGHT SHLD GROSSLY 3+/5, LEFT SHLD 4/5. 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 PATIENT IS RIGHT HAND DOMINANT. L ELBOW FLEX/EXT 5/5, R ELBOW FLEX/EXT 5/5 SARA LE WEAKNESS: HIPS 4-/5, KNEE EXT 5/5, KNEE FLEX 5/5, ANKLE DORSIFLEXION 5/5. Sensory deficit: SARA LE LIGHT TOUCH SENSATION APPEARS INTACT BUT FEET NT - DX'D WITH VASCULAR CALCIFICATION OF NERVES IN FEET. ROM deficit: TIGHT SARA LE HIPS ALL PLANES, TIGHT SARA HS AND GASTROC SOLEUS COMPLEX'S. Reflexes: NT. Dural Signs: NEGATIVE SARA LE'S. Cervical Mvmt Loss: Flex: NIL. Pro: NIL. Ext: MIN. Ret: SUZY. RSB: MIN. LSB: NIL. R Rot: MIN. L Rot: NIL. PATIENT C/O INCRASED NECK PAIN WITH CERVICAL ROM TESTING INTO RET AND R ROT TODAY. Lumbar mvmt loss: FLEX - MOD. EXT - SUZY. RSG - SUZY. LSG - MOD. OTHER: SLS TESTING - PATIENT IS ABLE TO SLS ON EACH LE FOR ABOUT 2 SEC WITHOUT UE ASSIST OR LOB. INSTRUCTED PATIENT IN SAFE SLS EX AT KITCHEN SINK WITH CHAIR BEHIND PATIENT. Core strength: POOR. Postural strength: POOR Goal 1:: DECREASE C/O GENERAL UPPER BODY AND LOWER BODY PAIN Goal Progress: Goal Met Goal 2:: IMPROVE PERSONAL CARE, LIFTING, READING, BENDING, STANDING, WALKING, WORK, DRIVING AND RECREATIONAL FUNCTION. Goal Progress: Goal Met Goal 3:: INSTRUCT IN PROPHYLAXIS Goal Progress: Goal Met Plan: D/C TO INDEP EX AT THIS TIME AT PATIENTS REQUEST. If there are questions or concerns regarding this patient's physical therapy, please feel free to call me at [phone]. Thank you for the referral of this patient. Sincerely, Kirsten Painter, PT, Cert MDT
== END 2020-12-14 19:00 | disposition home or self-care (01) ==
LOC: PT 13:30
PROVIDERS: PCP Family Medicine Geriatric Medicine; Referring Provider Family Medicine Geriatric Medicine; Visit Provider Family Medicine Geriatric Medicine
DX: M50.80 Other cervical disc disorders, unspecified cervical region (principal)
CPT/HCPCS: 97110; 97113; 97162; 97164

== ENCOUNTER → 2021-02-08 10:50 | Outpatient (CLI) | payer MEDICAID, SELFPAY ==
[2020-08-18 13:57] VITALS: BMI 53.6
[2021-02-08 12:24] LABS: Absolute Lymphocyte Count 1.39 X10^3/uL (0.83-4.51); Absolute Neutrophil Count 3.2 X10^3/uL (2.0-7.7); Basophil# 0.02 X10^3/uL; Basophil% 0.4 % (0-1); Eosinophil# 0.22 X10^3/uL; Eosinophils% 4.2 % (0-5); Hematocrit 45.9 % (40-54); Hemoglobin 15.4 g/dL (13.0-16.5); Lymphocyte # 1.39 X10^3/ul (0.83-4.51); Lymphocyte % 26.2 % (19-41); Mean Corp Hgb Conc 33.6 g/dL (32-36); Mean Corpuscular Hgb 31.8 pg (27.0-32.0); Mean Corpuscular Volume 94.8 fL (80-94); Mean Platelet Vol. 10.4 fl (6.2-12.0); Monocyte# 0.43 X10^3/uL; Monocyte% 8.1 % (0-10); NRBC Flagged by Analyzer 0 % (0-5); Neutrophil # 3.23 X10^3/uL (2.7-7.7); Neutrophil % 60.9 % (47-70); Platelet Count 226 K/mm3 (150-450); RBC Distribution Width CV 14.4 % (11.6-14.6); RBC Distribution Width SD 49.8 fl (35.1-43.9); Red Blood Count 4.84 M/mm3 (4.6-6.2); White Blood Count 5.3 K/mm3 (4.4-11.0)
[2021-02-08 12:56] LABS: ALB/GLOB Ratio 0.7 RATIO (0.9-2.4); AST(SGOT) 32 U/L (15-37); Alanine Aminotransfer ALT/SGPT 24 U/L (16-61); Albumin, Serum 2.9 g/dL (3.2-5.0); Alkaline Phosphatase 166 U/L (45-117); Anion Gap 8 (5-15); BUN 6 mg/dL (7-18); BUN/Creat Ratio 6.8 RATIO (10-20); Chloride 103 mmol/L (98-107); Creatinine, Serum 0.88 mg/dL (0.70-1.30); EST Glomerular Filtration Rate 94 mL/min (>60); Est Glom Filt Rate - Afr Amer 114 mL/min (>60); Globulin 4.2 g/dL (2.2-4.2); Glucose 124 mg/dL (74-106); Potassium 3.7 mmol/L (3.5-5.1); Protein, Total 7.1 g/dL (6.4-8.2); Sodium Level 139 mmol/L (136-145); Uric Acid 7.5 mg/dL (3.5-7.2)
== END ==
PROVIDERS: PCP Family Medicine Geriatric Medicine; Visit Provider Family Medicine Geriatric Medicine
DX: I10 Essential (primary) hypertension (principal); M10.9 Gout, unspecified; N39.0 Urinary tract infection, site not specified
CPT/HCPCS: 36415; 80053; 84443; 84550; 85025; 87077; 87086; 87088; 87186

== ENCOUNTER 2021-04-09 12:25 | Inpatient (IN) | payer MEDICAID, SELFPAY ==
[2021-04-09] VITALS (23 sets, daily range): BP systolic 133–179; BP diastolic 79–143; PULSE 95–149; RESP 12–22; TEMP 36.6–37.6; O2SAT 16–97; BMI 51.3; BMI 51.0
--- NOTE | 2021-04-09 13:15 | CT_ITS ---
STUDY: CT BRAIN WITHOUT CONTRAST REASON FOR EXAM: Male, 60 years old. Fall, NOONAN RADIATION DOSAGE (If Supplied By Facility): CTDIvol = ( 44.99 ) mGy, DLP = ( 863.60 ) mGycm TECHNIQUE: Transaxial CT imaging of the brain was performed without administration of intravenous contrast material. Individualized dose optimization techniques were used for this CT. COMPARISON: Comparison is made with prior study dated 08/25/2020 FINDINGS: Small left scalp hematoma. Normal calvarium. There is mild cerebral atrophy with widening of the extra-axial spaces and ventricular dilatation. Normal white matter tracts of the cerebral hemispheres. Normal basal ganglia and thalami. Normal brainstem. Normal cerebellum. There is no intracranial hemorrhage. There are no findings of an acute ischemic infarction. Atherosclerotic calcification of the cavernous portions of the internal carotid arteries bilaterally. Normal visualized paranasal sinuses. CT/Brain/Head without Contrast IMPRESSION: Chronic involutional changes of the brain. Small left scalp hematoma. Electronically Signed: Cole Hopper MD at 14:01 EDT , Service support ,
--- NOTE | 2021-04-09 13:17 | EKG12_ITS ---
Test Reason : FALL Blood Pressure : / mmHG Vent. Rate : 144 BPM Atrial Rate : 144 BPM P-R Int : 146 ms QRS Dur : 084 ms QT Int : 318 ms P-R-T Axes : 000 -64 056 degrees QTc Int : 492 ms Sinus tachycardia Left axis deviation Inferior infarct , age undetermined Abnormal ECG Confirmed by DIANDRA BLOOM, BEE ([id number]), book editor MEHUL JIMENEZ ([id number]) on 04/12/2021 1:31:02 PM Referred By: MOHAMUD Confirmed By:KHAI JIM MD
[2021-04-09 13:44] LABS: Absolute Lymphocyte Count 1.08 X10^3/uL (0.83-4.51); Absolute Neutrophil Count 2.9 X10^3/uL (2.0-7.7); Basophil# 0.03 X10^3/uL; Basophil% 0.6 % (0-1); Eosinophil# 0.07 X10^3/uL; Eosinophils% 1.5 % (0-5); Hematocrit 47.1 % (40-54); Hemoglobin 15.9 g/dL (13.0-16.5); Lymphocyte # 1.08 X10^3/ul (0.83-4.51); Lymphocyte % 23.3 % (19-41); Mean Corp Hgb Conc 33.8 g/dL (32-36); Mean Corpuscular Hgb 31.7 pg (27.0-32.0); Mean Platelet Vol. 10.1 fl (6.2-12.0); Monocyte# 0.51 X10^3/uL; NRBC Flagged by Analyzer 0 % (0-5); Neutrophil # 2.92 X10^3/uL (2.7-7.7); Neutrophil % 63.2 % (47-70); Platelet Count 203 K/mm3 (150-450); RBC Distribution Width CV 15.5 % (11.6-14.6); Red Blood Count 5.01 M/mm3 (4.6-6.2); White Blood Count 4.6 K/mm3 (4.4-11.0)
--- NOTE | 2021-04-09 13:50 | RAD_ITS ---
STUDY: X-RAY CHEST REASON FOR EXAM: Male, 60 years old. Fall, tachycardia TECHNIQUE: Single AP portable view of the chest. COMPARISON: Comparison is made with prior examination dated 01/15/2020. FINDINGS: Stable elevation of the right hemidiaphragm. There is no demonstrated pleural abnormality. There is mild cardiac enlargement. Normal mediastinum and tom. Normal visualized pulmonary arteries. Normal visualized aortic arch and descending thoracic aorta. Normal visualized thoracic spine. Normal visualized ribs, clavicles, and shoulders. Surgical clips are seen in the epigastric region. RAD/Chest 1 View (Portable) IMPRESSION: Mild cardiomegaly. Electronically Signed: Cole Hopper MD at 14:13 EDT , Service support ,
--- NOTE | 2021-04-09 13:54 | EDS_ITS ---
HPI HPI - Fall History of Present Illness Chief Complaint: Fall Informant: patient Narrative Narrative: Patient is a 60-year-old male who presents to the emergency department for a fall yesterday. He states he did strike his head and lose consciousness. Difficulty getting up and he was able to yell for help. Patient states he had a severe headache since. He does have photophobia. He states he has been having neck pain but this was from a previous fall. It is mostly on the right side going into the right shoulder blade. No weakness or loss sensation in his arms. He states that he has been falling lately because he has neuropathy in his bilateral feet. Patient is on Xarelto with a history of atrial fibrillation. States he has not taken any of his medications this morning. He denies any chest pain, shortness of breath or heart palpitations. No abdominal pain but has had a few episodes of vomiting. [facility] Medical History Abdominal wall pain ADD (attention deficit disorder) Atrial flutter BPH (benign prostatic hyperplasia) Calcium deficiency Chronic atrial fibrillation Chronic pain Depression Essential hypertension Fibromyalgia History of DVT (deep vein thrombosis) History of sepsis Left fibular fracture Morbid obesity Neuropathy Rheumatic fever Vitamin B12 deficiency Home Medications albuterol sulfate 2 puff INHALATION Q6H PRN PRN 03/30/18 [History Last Taken 07/27/19] clonazepam 1 mg PO BID 03/30/18 [History Last Taken 07/30/19] cyanocobalamin (vitamin B-12) 1,000 mcg IM Q30D 05/28/18 [History Last Taken 06/30/19] baclofen 10 mg PO BID PRN PRN #0 02/21/19 [Rx Last Taken 07/30/19] allopurinol 100 mg tablet 100 mg PO DAILY 03/28/19 [History Last Taken 07/30/19] venlafaxine 50 mg tablet 50 mg PO BID 03/28/19 [History Last Taken 07/29/19] Cbd Oil 1 dose PO DAILY 07/30/19 [History Last Taken 07/16/19] cholecalciferol (vitamin D3) 2,000 unit PO DAILY 07/30/19 [History Last Taken 07/29/19] nortriptyline 75 mg PO QHS 07/30/19 [History Last Taken 07/29/19] acetaminophen 650 mg PO Q6H PRN PRN tab 08/01/19 [Rx Last Taken Unknown] lidocaine 5 % topical patch 1 patch TOPICAL DAILY PRN 02/13/20 [History Last Taken Unknown] rivaroxaban 20 mg tablet 20 mg PO DAILY #90 tab 07/29/20 [Rx Last Taken Unknown] diltiazem HCl 180 mg capsule,extended release 24 hr 180 mg PO DAILY #90 cap 08/03/20 [Rx Last Taken Unknown] cyclobenzaprine 10 mg tablet 10 mg PO HS PRN tab 08/18/20 [History Last Taken Unknown] doxepin 25 mg capsule 25 mg PO QHS cap 08/18/20 [History Last Taken Unknown] famotidine 40 mg tablet 40 mg PO DAILY tab 08/18/20 [History Last Taken Unknown] sulfamethoxazole 400 mg-trimethoprim 80 mg tablet 1 tab PO DAILY tab 08/18/20 [History Last Taken Unknown] Allergy/AdvReac Type Severity Reaction Status Date / Time duloxetine [From Cymbalta] AdvReac Other Verified 04/09/21 12:27 Family History Mother Diabetes Thyroid disorder Father Diabetes Heart disease CABG x5 in his 50s COPD (chronic obstructive pulmonary disease) Hypertension Surgical History H/O gastric bypass History of hernia repair Status post removal of thyroid nodule Social History Smoking Status: Former smoker how long ago did patient quit smokin years ago second hand exposure: No alcohol intake: current alcohol intake frequency: a few times a week substance use type: does not use caffeine: No what type of physical activity do you participate in: none and walking frequency: decline to answer ROS ROS ED Constitutional Constitutional ED: Denies chills or fever(s) Eyes Eyes: Denies blurry vision or diplopia ENT ENT ED: Denies epistaxis or rhinorrhea Cardiovascular Cardiovascular: Denies chest pain or palpitations Respiratory/Chest Respiratory/Chest: Denies cough, dyspnea or dyspnea on exertion Gastrointestinal Gastrointestinal: Reports nausea and vomiting; Denies abdominal pain or diarrhea Genitourinary Genitourinary ED: Denies dysuria, hematuria or urinary frequency Musculoskeletal Musculoskeletal: Denies back pain or neck pain Integumentary Denies rash Neurologic Neurologic: Reports headache(s); Denies dizziness or weakness EXAM Physical Exam Const Vital Signs: 04/09/21 12:26 04/09/21 12:44 04/09/21 14:36 Temperature 97.8 F Temperature Source Temporal Pulse Rate 142 H 148 H Respiratory Rate 22 H 12 Respiratory Effort Normal Non-Labored Blood Pressure 179/123 H 154/106 H Blood Pressure Mean 141 122 Pulse Ox 96 95 Oxygen Delivery Method Room Air Room Air Room Air Positive well nourished and well developed General Appearance ED: well developed and NAD HEENT Reports normocephalic, head/scalp atraumatic and moist mucous membranes HEENT Narrative: Small superficial laceration with healing to right side of forehead. Eyes PERRL and EOMs intact bilaterally Neck supple General: Negative for tenderness Chest Wall inspection of chest normal Resp normal respiratory effort and clear to auscultation bilaterally Auscultation: Negative for rales, rhonchi or wheezes Cardio regular rhythm and no murmurs Rate: tachycardic GI normal to inspection, nondistended, normoactive bowel sounds and non-tender Palpation: soft; Negative for guarding or rebound tenderness present Extremity normal to inspection General Extremety ED: Negative for edema or tenderness General Extremity: Negative for edema Neuro oriented x3, CN's II-XII intact bilaterally and no sensory deficits noted Sensorium / Orientation: alert Motor Exam: strength 5/5 throughout Psych mental status grossly normal Skin Skin Narrative: Skin abrasions to bilateral lower extremities. MDM MDM MDM Narrative Medical decision making narrative: Patient presents the ED for fall yesterday. Did strike his head and lose consciousness. He is on anticoagulation. Will obtain CT scan of the head. On arrival patient's heart rate is 140. He is hypertensive with this. Patient has not taken any of his medications this morning. We will give him an IV dose of Cardizem as he does take oral diltiazem at home. No evidence of trauma on imaging. No significant acute abnormality on lab work- up including anemia. Unfortunately patient's heart rate has remained in the 140s despite IV Cardizem. He will be given a repeat bolus and started on Ca rdizem drip. Will bring into the hospital for further evaluation and management. He otherwise has remained stable throughout ED stay. He understands and is agreeable with this plan. Lab Data Labs: Laboratory Results - last 24 hr 04/09/21 04/09/21 13:35 13:35 WBC 4.6 RBC 5.01 Hgb 15.9 Hct 47.1 MCV 94.0 MCH 31.7 MCHC 33.8 RDW Std Deviation 54.0 H RDW Coeff of Tasha 15.5 H Plt Count 203 MPV 10.1 Immature Gran % (Auto) 0.400 Neut % (Auto) 63.2 Lymph % (Auto) 23.3 Pickett % (Auto) 11.0 H Eos % (Auto) 1.5 Baso % (Auto) 0.6 Absolute Neuts (auto) 2.9 Absolute Lymphs (auto) 1.08 Nucleated RBC % 0 Sodium 139 Potassium 3.6 Chloride 102 Carbon Dioxide 30.0 Anion Gap 7 BUN 7 Creatinine 0.86 Estim Creat Clear Calc 107.53 Est GFR (MDRD) Af Amer 118 Est GFR (MDRD) Non-Af 97 BUN/Creatinine Ratio 8.2 L Glucose 145 H Calcium 8.1 L Magnesium 1.7 Radiography Diagnostic Testing: Radiology Impression Brain CT 04/09/21 13:15 IMPRESSION: Chronic involutional changes of the brain. Small left scalp hematoma. Electronically Signed: Cole Hopper MD at 14:01 EDT , Service support , Chest X-Ray 04/09/21 13:50 IMPRESSION: Mild cardiomegaly. Electronically Signed: Cole Hopper MD at 14:13 EDT , Service support , EKG Initial EKG: Attestation: I personally reviewed and interpreted this EKG as follows: (Rate of 144 bpm and what appears to be likely atrial flutter. Normal intervals. Left axis deviation. No significant ST elevations or depressions.) Discharge Plan Triage Chief Complaint: Fall ED Provider: Sunil Wen Dx/Rx/DC Orders Clinical Impression: CHI (closed head injury), Atrial flutter with rapid ventricular response Prescriptions: No Action allopurinol 100 mg tablet 100 mg PO DAILY RF: 0 venlafaxine 50 mg tablet 50 mg PO BID RF: 0 lidocaine 5 % adhesive patch,medicated 1 patch TOPICAL DAILY PRNRF: 0 doxepin 25 mg capsule 25 mg PO QHS RF: 0 famotidine 40 mg tablet 40 mg PO DAILY RF: 0 cyclobenzaprine 10 mg tablet 10 mg PO HS PRN (Reason: MUSCLE RELAXER) RF: 0 clonazepam 1 MG tablet 1 mg PO BID RF: 0 albuterol sulfate 1 INHALER inhaler 2 puff INHALATION Q6H PRN PRN (Reason: Sob &/Or Wheezing) RF: 0 cyanocobalamin (vitamin B-12) 1,000 MCG/ML solution 1,000 mcg IM Q30D RF: 0 baclofen 10 MG tablet 10 mg PO BID PRN PRN (Reason: MUSCLE SPASM) Qty: 0 RF: 0 nortriptyline 75 MG capsule 75 mg PO QHS RF: 0 cholecalciferol (vitamin D3) 2,000 UNIT capsule 2,000 unit PO DAILY RF: 0 Cbd Oil 1 dose PO DAILY RF: 0 acetaminophen 325 MG tablet 650 mg PO Q6H PRN PRN (Reason: Pain Score 1-3/Temp > 100.7 F) RF: 0 sulfamethoxazole-trimethoprim 400-80 mg tablet 1 tab PO DAILY RF: 0 rivaroxaban 20 mg tablet 20 mg PO DAILY Qty: 90 RF: 3 diltiazem HCl 180 mg capsule,extended release 24hr 180 mg PO DAILY Qty: 90 RF: 3 Primary Care Provider: Chalo Mclean Chi Referrals: Chalo Mclean Chi, MD [Primary Care Provider] - Disposition Disposition: Acute Care Hospital [facility]
[2021-04-09 13:58] LABS: Anion Gap 7 (5-15); BUN 7 mg/dL (7-18); BUN/Creat Ratio 8.2 RATIO (10-20); Calcium,Total 8.1 mg/dL (8.5-10.1); Chloride 102 mmol/L (98-107); Creatinine, Serum 0.86 mg/dL (0.70-1.30); EST Glomerular Filtration Rate 97 mL/min (>60); Est Glom Filt Rate - Afr Amer 118 mL/min (>60); Estimated Creatinine Clearance 107.53 ml/min; Glucose 145 mg/dL (74-106); Magnesium 1.7 mg/dL (1.6-2.6); Potassium 3.6 mmol/L (3.5-5.1); Sodium Level 139 mmol/L (136-145)
[2021-04-09] MEDS: dilTIAZem 25 MG/5 ML Vial 10 MG IV BOLUS ×2 (14:33→15:22)
[2021-04-09] MEDS: Metoclopramide 10 MG/2 ML Vial 5 MG IV (14:33)
[2021-04-09] MEDS: Ketorolac 15 MG/ML Vial IV (14:33)
[2021-04-09] MEDS: DiphenhydrAMINE 50 MG/ML Syringe 25 MG IV (14:33)
--- NOTE | 2021-04-09 15:18 | NURSING ---
PCU OBS PRASHANTH RAUSCH [facility]
[2021-04-09 15:48] LABS: Troponin-I HS 36 pg/mL (3.0-78.0)
--- NOTE | 2021-04-09 16:36 | HP.PCM.HOS_ITS ---
HPI - General General Date of Admission: 04/09/21 Date of Service: 04/09/21 Chief Complaint: Fall HPI Narrative CARLIN SMITH, is a 60 M who presents ID later after he fell out of his wheelchair. Patient was outside try to get a photograph something. The next thing he knew he was ground with an abrasion. He did not seek attention at that time. Afterwards he was having a headache as well as nausea and vomiting. Family was concerned advised him come to the emergency room. He had a chest x- ray and head CT that were unremarkable. Patient received 20 mg of IV diltiazem in the emergency room and then was started on a drip but heart rate still was in the 140s. [facility] Medical History Abdominal wall pain ADD (attention deficit disorder) Atrial flutter BPH (benign prostatic hyperplasia) Calcium deficiency Chronic atrial fibrillation Chronic pain Depression Essential hypertension Fibromyalgia History of DVT (deep vein thrombosis) History of sepsis Left fibular fracture Morbid obesity Neuropathy Rheumatic fever Vitamin B12 deficiency Home Medications albuterol sulfate 2 puff INHALATION Q6H PRN PRN 03/30/18 [History Last Taken 07/27/19] clonazepam 1 mg PO BID 03/30/18 [History Last Taken 07/30/19] cyanocobalamin (vitamin B-12) 1,000 mcg IM Q30D 05/28/18 [History Last Taken 06/30/19] baclofen 10 mg PO BID PRN PRN #0 02/21/19 [Rx Last Taken 07/30/19] allopurinol 100 mg tablet 100 mg PO DAILY 03/28/19 [History Last Taken 07/30/19] venlafaxine 50 mg tablet 50 mg PO BID 03/28/19 [History Last Taken 07/29/19] Cbd Oil 1 dose PO DAILY 07/30/19 [History Last Taken 07/16/19] cholecalciferol (vitamin D3) 2,000 unit PO DAILY 07/30/19 [History Last Taken 07/29/19] nortriptyline 75 mg PO QHS 07/30/19 [History Last Taken 07/29/19] acetaminophen 650 mg PO Q6H PRN PRN tab 08/01/19 [Rx Last Taken Unknown] lidocaine 5 % topical patch 1 patch TOPICAL DAILY PRN 02/13/20 [History Last Taken Unknown] rivaroxaban 20 mg tablet 20 mg PO DAILY #90 tab 07/29/20 [Rx Last Taken Unknown] diltiazem HCl 180 mg capsule,extended release 24 hr 180 mg PO DAILY #90 cap 08/03/20 [Rx Last Taken Unknown] cyclobenzaprine 10 mg tablet 10 mg PO HS PRN tab 08/18/20 [History Last Taken Unknown] doxepin 25 mg capsule 25 mg PO QHS cap 08/18/20 [History Last Taken Unknown] famotidine 40 mg tablet 40 mg PO DAILY tab 08/18/20 [History Last Taken Unknown] sulfamethoxazole 400 mg-trimethoprim 80 mg tablet 1 tab PO DAILY tab 08/18/20 [History Last Taken Unknown] Allergy/AdvReac Type Severity Reaction Status Date / Time duloxetine [From Cymbalta] AdvReac Other Verified 04/09/21 12:27 Family History Mother Diabetes Thyroid disorder Father Diabetes Heart disease CABG x5 in his 50s COPD (chronic obstructive pulmonary disease) Hypertension Surgical History H/O gastric bypass History of hernia repair Status post removal of thyroid nodule Social History Smoking Status: Former smoker how long ago did patient quit smokin years ago second hand exposure: No alcohol intake: current alcohol intake frequency: a few times a week substance use type: does not use caffeine: No what type of physical activity do you participate in: none and walking frequency: decline to answer ROS ROS Narrative Patient states that he falls frequently and has fallen 5 times the past week. Patient is essentially wheelchair-bound only gets up to pivot but he falls m ostly in his home when he pivots but yesterday he felt when he was outside. States that he falls typically around 2 times per week. Patient had sustained an injury to his lower extremity couple years ago and was immobilized and nonweightbearing for period time and he is never recovered. Prior to that patient stated that he was fully functional. Does complain of current headache as well as some nausea and some photophobia. All review of systems were negative except as mentioned above in the history of present illness and the other review of systems. Vital Signs Vital Signs Vital Signs: 04/09/21 12:26 04/09/21 12:44 04/09/21 14:36 Temperature 36.6 C Temperature Source Temporal Pulse Rate 142 H 148 H Respiratory Rate 22 H 12 Respiratory Effort Normal Non-Labored Blood Pressure 179/123 H 154/106 H Blood Pressure Mean 141 122 Pulse Ox 96 95 Oxygen Delivery Method Room Air Room Air Room Air 04/09/21 15:20 04/09/21 15:22 04/09/21 15:24 Temperature 37.1 C 37.1 C Temperature Source Oral Oral Pulse Rate 148 H 148 H 138 H Respiratory Rate 14 16 14 Respiratory Effort Blood Pressure 133/93 H 133/93 H 133/93 H Blood Pressure Mean 106 106 106 Pulse Ox 95 95 95 Oxygen Delivery Method Room Air Room Air Weight Weight: 181.437 kg Body Mass Index (BMI) 51.3 Physical Exam Const alert and oriented x3 HEENT normocephalic and head/scalp atraumatic Eyes PERRL Neck no lymphadenopathy and supple Resp normal respiratory effort, no retractions, no use of accessory muscles and clear to auscultation bilaterally Cardio Cardio Narrative: Tachycardic. Irregularly irregular. GI normal to inspection, nondistended, normoactive bowel sounds, soft to palpation, non-tender and non-distended GI Narrative: Obese Extremity Extremity Narrative: Trace lower extremity edema. Skin Skin Narrative: Abrasion over left forehead Neuro moves all extremities Sensorium / Orientation: awake and alert Results Lab / Micro Data Attestation: I reviewed the patient's lab results. Result Diagrams: 04/09/21 13:35 04/09/21 13:35 Labs: Laboratory Results - last 24 hr 04/09/21 13:35: WBC 4.6, RBC 5.01, Hgb 15.9, Hct 47.1, MCV 94.0, MCH 31.7, MCHC 33.8, RDW Std Deviation 54.0 H, RDW Coeff of Tasha 15.5 H, Plt Count 203, MPV 10.1, Immature Gran % (Auto) 0.400, Neut % (Auto) 63.2, Lymph % (Auto) 23.3, [place] % (Auto) 11.0 H, Eos % (Auto) 1.5, Baso % (Auto) 0.6, Absolute Neuts (auto) 2.9, Absolute Lymphs (auto) 1.08, Nucleated RBC % 0 04/09/21 13:35: Sodium 139, Potassium 3.6, Chloride 102, Carbon Dioxide 30.0, Anion Gap 7, BUN 7, Creatinine 0.86, Estim Creat Clear Calc 107.53, Est GFR (MDRD) Af Amer 118, Est GFR (MDRD) Non-Af 97, BUN/Creatinine Ratio 8.2 L, Glucose 145 H, Calcium 8.1 L, Magnesium 1.7 04/09/21 13:35: Troponin I High Sens 36 EKG Initial EKG: Attestation: I personally reviewed and interpreted this EKG as follows: Prior EKG tracings: available for review EKG Rhythm Intrepretation: Atrial Fibrillation (With RVR) Radiology Impression Brain CT 04/09/21 13:15 IMPRESSION: Chronic involutional changes of the brain. Small left scalp hematoma. Electronically Signed: Cole Hopper MD at 14:01 EDT , Service support , Chest X-Ray 04/09/21 13:50 IMPRESSION: Mild cardiomegaly. Electronically Signed: Cole Hopper MD at 14:13 EDT , Service support , Assessment & Plan Assessment/Plan (1) Atrial flutter with rapid ventricular response: (2) Post concussion syndrome: (3) Debility: PLAN: 1. Atrial fibrillation with RVR Patient received 10 mg of IV diltiazem in the emergency room and is currently on a diltiazem drip. May need to give additional dose of diltiazem if that does not work then patient likely need to be put on amiodarone. Patient already anticoagulated with rivaroxaban Hold his home diltiazem 2. Postconcussion syndrome Patient hit his head on the 19th Patient with headache, photophobia and nausea currently. Advised the patient to minimize screen time for the next 24 hours and to utilize his phone only in case of emergency 3. Debility Patient has a poor performance status at baseline PT OT evaluate and treat Patient has been in longterm facility before but previously exhausted his days he is expressing willingness to go at this time if necessary. 4. VTE prophylaxis: Not indicated as patient is already anticoagulated 5. CODE STATUS: Discussed with the patient. Patient wishes to be DNR Comfort Care arrest. He is undecided about intubation so he will be with intubation if becomes necessary. 6. COVID-19 screening: Patient denies any risk factors. He declines the vaccine stating that he has good immune system. I informed patient that given his comorbidities and obesity that he has high risk for serious complications associated with COVID-19. He still declines the vaccine. I told him if he does change his mind that we can administer it to him garcia here in the hospital. Charges/Coding Visit Charges Inpatient E&M: 01621 Init Hosp L3
[2021-04-09 17:15] LABS: Troponin-I HS 37 pg/mL (3.0-78.0)
[2021-04-09] MEDS: Rivaroxaban 20 MG Tablet PO (18:08)
--- NOTE | 2021-04-09 18:14 | PCM.CONS.C ---
Assessment & Plan Assessment/Plan (1) Atrial flutter with rapid ventricular response: PLAN: 60-year-old patient, admitted through the ER/[facility] he felt out of his wheelchair Patient has known history of chronic atrial fibrillation and a history of atrial flutter He was on treatment with Xarelto and beta-gali metoprolol He was given IV bolus of Cardizem however his rate was still fast Has no symptoms of chest pain Patient has multiple medical comorbidities with morbid obesity essential hypertension traumatic injury to skin subcutaneous tissue and a history of neuropathy and chronic pain syndrome Cardiac evaluation by stress echocardiogram in July 2019 showed preserved LV function with no evidence of reversible myocardial ischemia and he will be seen and followed by the cardiology team here and his primary chemistry faculty member Dr. Bruce Recommendation and plan; 1. I started him on amiodarone IV over the night 2. We will continue on beta-gali metoprolol 3. We will continue on anticoagulation with Xarelto and will follow-up clinically. (2) Chronic atrial fibrillation: (3) Essential hypertension: (4) Morbid obesity: (5) Chronic pain: (6) Neuropathy: (7) Traumatic injury to skin or subcutaneous tissue: HPI Consult Data Date of Consult: 04/09/21 HPI Narrative Reason for Consultation: Patient with atrial fibrillation with rapid ventricular rate/Atrial flutter HPI Narrative: CARLIN SMITH, is a 60 M who presents [facility] Medical History (Updated 04/09/21 @ 16:57 by Domenica Gillette) Abdominal wall pain ADD (attention deficit disorder) Atrial fibrillation Atrial flutter BPH (benign prostatic hyperplasia) Calcium deficiency Chronic atrial fibrillation Chronic pain Depression Essential hypertension Fibromyalgia History of DVT (deep vein thrombosis) History of sepsis Left fibular fracture Morbid obesity Neuropathy Rheumatic fever Vitamin B12 deficiency Home Medications albuterol sulfate 2 puff INHALATION Q6H PRN PRN 03/30/18 [History Last Taken 07/27/19] clonazepam 1 mg PO BID 03/30/18 [History Last Taken 04/08/21 22:00] cyanocobalamin (vitamin B-12) 1,000 mcg IM Q30D 05/28/18 [History Last Taken 03/21/21 08:00] allopurinol 100 mg tablet 100 mg PO DAILY 03/28/19 [History Last Taken 04/08/21 08:00] venlafaxine 50 mg tablet 100 mg PO TID 03/28/19 [History Last Taken 04/08/21 22:00] Cbd Oil 1 dose PO DAILY PRN 07/30/19 [History Last Taken 07/16/19] cholecalciferol (vitamin D3) 2,000 unit PO DAILY 07/30/19 [History Last Taken 04/08/21 08:00] acetaminophen 650 mg PO Q6H PRN PRN tab 08/01/19 [Rx Last Taken Unknown] lidocaine 5 % topical patch 1 patch TOPICAL DAILY PRN 02/13/20 [History Last Taken Unknown] rivaroxaban 20 mg tablet 20 mg PO DAILY #90 tab 07/29/20 [Rx Last Taken 04/08/21 08:00] cyclobenzaprine 10 mg tablet 10 mg PO HS PRN tab 08/18/20 [History Last Taken 04/08/21 22:00] doxepin 25 mg capsule 25 mg PO QHS cap 08/18/20 [History Last Taken 04/08/21 22:00] famotidine 40 mg tablet 40 mg PO DAILY tab 08/18/20 [History Last Taken 04/08/21 08:00] sulfamethoxazole 400 mg-trimethoprim 80 mg tablet 1 tab PO DAILY tab 08/18/20 [History Last Taken 04/08/21 08:00] metoprolol tartrate 25 mg PO BID 04/09/21 [History Last Taken 04/08/21 22:00] pregabalin [Lyrica] 150 mg PO BID 04/09/21 [History Last Taken 04/08/21 22:00] tamsulosin 0.4 mg PO DAILY 04/09/21 [History Last Taken 04/08/21 08:00] valsartan-hydrochlorothiazide 1 tab PO DAILY 04/09/21 [History Last Taken 04/08/21 08:00] Allergy/AdvReac Type Severity Reaction Status Date / Time duloxetine [From Cymbalta] AdvReac Other Verified 04/09/21 12:27 Family History Mother Diabetes Thyroid disorder Father Diabetes Heart disease CABG x5 in his 50s COPD (chronic obstructive pulmonary disease) Hypertension Surgical History H/O gastric bypass History of hernia repair Status post removal of thyroid nodule Social History (Updated 04/09/21 @ 16:58 by Domenica Gillette) Smoking Status: Former smoker how long ago did patient quit smokin years ago second hand exposure: No alcohol intake: current alcohol intake frequency: a few times a week substance use type: does not use caffeine: No what type of physical activity do you participate in: none and walking frequency: decline to answer Physical Exam Narrative Patient seen and evaluated at bedside along with the nursing staff Alert orientated x3 Not in acute distress Cardiovascular exam cardiac rhythm showed underlying atrial fibrillation with rapid ventricular rate S1-S2 is regular there is no murmur no systolic or diastolic murmur Chest exam is clear to auscultation Abdomen soft Examination lower extremity no clubbing no cyanosis no lower extremity edema Examination of the central nervous system no focal neurological deficit. Objective Data Vital Signs: Vital Signs Temp Pulse Resp BP Pulse Ox 99 F 148 H 15 166/79 H 16 04/09/21 18:02 04/09/21 18:02 04/09/21 18:02 04/09/21 18:02 04/09/21 18:02 Oxygen Delivery Method Room Air Weight: 397 lb 14.95 oz Body Mass Index (BMI) 51.0 Intake & Output: Intake and Output for Last 24 Hours 04/07/21 04/08/21 04/09/21 23:59 23:59 23:59 Intake Total 143.34 / 143.34 Balance 143.34 / 143.34 Lab / Micro Data Result Diagrams: 04/09/21 13:35 04/09/21 13:35 Labs: Laboratory Results - last 24 hr 04/09/21 13:35: WBC 4.6, RBC 5.01, Hgb 15.9, Hct 47.1, MCV 94.0, MCH 31.7, MCHC 33.8, RDW Std Deviation 54.0 H, RDW Coeff of Tasha 15.5 H, Plt Count 203, MPV 10.1, Immature Gran % (Auto) 0.400, Neut % (Auto) 63.2, Lymph % (Auto) 23.3, [place] % (Auto) 11.0 H, Eos % (Auto) 1.5, Baso % (Auto) 0.6, Absolute Neuts (auto) 2.9, Absolute Lymphs (auto) 1.08, Nucleated RBC % 0 08/20/21 13:35: Sodium 139, Potassium 3.6, Chloride 102, Carbon Dioxide 30.0, Anion Gap 7, BUN 7, Creatinine 0.86, Estim Creat Clear Calc 107.53, Est GFR (MDRD) Af Amer 118, Est GFR (MDRD) Non-Af 97, BUN/Creatinine Ratio 8.2 L, Glucose 145 H, Calcium 8.1 L, Magnesium 1.7 04/09/21 13:35: Troponin I High Sens 36 04/09/21 16:53: Troponin I High Sens 37 Micro: Microbiology 04/09/21 17:00 Mucosa - Nose SARS-CoV-2 Antigen (Rapid) - Final Cardiology Labs/Tests 04/09/21 13:35: WBC 4.6, RBC 5.01, Hgb 15.9, Hct 47.1, MCV 94.0, MCH 31.7, MCHC 33.8, Plt Count 203, MPV 10.1, Immature Gran % (Auto) 0.400, Neut % (Auto) 63.2, Lymph % (Auto) 23.3, [place] % (Auto) 11.0 H, Eos % (Auto) 1.5, Baso % (Auto) 0.6, Absolute Neuts (auto) 2.9, Nucleated RBC % 0 04/09/21 13:35: Sodium 139, Potassium 3.6, Chloride 102, Carbon Dioxide 30.0, Anion Gap 7, BUN 7, Creatinine 0.86, Est GFR (MDRD) Af Amer 118, Est GFR (MDRD) Non-Af 97, BUN/Creatinine Ratio 8.2 L, Glucose 145 H, Calcium 8.1 L, Magnesium 1.7 Rhythm: A. fib with RVR EKG: Atrial flutter with 2:1 AV block Radiography Diagnostic Testing: Radiology Impression Brain CT 04/09/21 13:15 IMPRESSION: Chronic involutional changes of the brain. Small left scalp hematoma. Electronically Signed: Cole Hopper MD at 14:01 EDT , Service support , Chest X-Ray 04/09/21 13:50 IMPRESSION: Mild cardiomegaly. Electronically Signed: Cole Hopper MD at 14:13 EDT , Service support ,
[2021-04-09] MEDS: Metoprolol Tartrate 25 MG Tablet PO ×2 (18:39→21:34)
[2021-04-09] MEDS: Amiodarone 360 MG in Dextrose 5% Viaflo Bag 192.8 ML 33.3 MG IV BOLUS (19:03)
--- NOTE | 2021-04-09 20:46 | PCS.PANDOC ---
PANDEMIC DOCUMENTATION INITIATED: Date: 04/05/2021 Time: 190
[2021-04-09 21:07] LABS: Troponin-I HS 36 pg/mL (3.0-78.0)
[2021-04-09] MEDS: Doxepin Hcl 25 MG Capsule PO (21:31)
[2021-04-09] MEDS: Nortriptyline 25 MG Capsule 75 MG PO (21:34)
[2021-04-09] MEDS: Venlafaxine HCl 25 MG Tablet 50 MG PO (21:34)
[2021-04-09] MEDS: clonazePAM 1 MG Tablet PO (21:35)
[2021-04-10] VITALS (29 sets, daily range): BP systolic 104–157; BP diastolic 67–122; PULSE 20–137; RESP 14–23; TEMP 36.5–37.2; O2SAT 90–98
[2021-04-10] MEDS: Acetaminophen 325 MG Tablet 650 MG PO ×3 (00:32→17:53)
[2021-04-10] MEDS: Amiodarone 360 MG in Dextrose 5% Viaflo Bag 192.8 ML 16.7 MG CONT INF ×2 (01:12→15:08)
[2021-04-10] MEDS: Baclofen 10 MG Tablet PO (01:14)
--- NOTE | 2021-04-10 05:55 | ECHOCS_ITS ---
Reason For Study: A. fib Procedure This was a 2D Doppler, Color Flow transthoracic echocardiogram. The study was technically limited. The study was technically difficult. Exam performed portable in patient room. Left Ventricle Mildly dilated left ventricle. The estimated ejection fraction is EF 40-45 %. Atria Normal left atrium. Normal right atrium. Mitral Valve The mitral valve is structurally normal. No prolapse or stenosis seen. Tricuspid Valve Normal tricuspid valve. Aortic Valve Normal aortic valve. Pulmonic Valve The pulmonic valve is not well visualized. Great Vessels Normal aortic root. Pericardium/Pleural No pericardial effusion. Medication Diluted definity 4ml given slow IV push to enhance endocardial definition. MMode/2D Measurements & Calculations SV(MOD-sp4): 54.9 ml SV(sp4-el): 55.4 ml LVAd ap4: 37.5 cm2 LVLd ap4: 9.1 cm EDV(MOD-sp4): 125.7 ml EDV(sp4-el): 130.6 ml LVAs ap4: 26.8 cm2 LVLs ap4: 8.1 cm ESV(MOD-sp4): 70.8 ml ESV(sp4-el): 75.1 ml EF(MOD-sp4): 43.7 % EF(sp4-el): 42.5 % LA dimension(2D): 4.5 cm Doppler Measurements & Calculations MV E max omer: 67.1 cm/sec Ao V2 max: 75.2 cm/sec LV V1 max: 60.7 cm/sec Ao max P.3 mmHg LV V1 max P.5 mmHg ECHO/Echo Complete W/ Contrast Interpretation Summary The estimated ejection fraction is EF 40-45 %. TDS/Limited 2 D echo Ordering Physician: Ankit Aguilar Referring Physician: Chalo Mclean Chi Performed By: Rekha Fierro RDCS
[2021-04-10 06:55] LABS: Absolute Lymphocyte Count 1.34 X10^3/uL (0.83-4.51); Absolute Neutrophil Count 1.6 X10^3/uL (2.0-7.7); Basophil# 0.01 X10^3/uL; Basophil% 0.3 % (0-1); Eosinophil# 0.15 X10^3/uL; Eosinophils% 4.4 % (0-5); Hematocrit 44.8 % (40-54); Hemoglobin 14.5 g/dL (13.0-16.5); Lymphocyte # 1.34 X10^3/ul (0.83-4.51); Lymphocyte % 39.1 % (19-41); Mean Corp Hgb Conc 32.4 g/dL (32-36); Mean Corpuscular Hgb 31.5 pg (27.0-32.0); Mean Corpuscular Volume 97.2 fL (80-94); Mean Platelet Vol. 11.2 fl (6.2-12.0); Monocyte# 0.32 X10^3/uL; Monocyte% 9.3 % (0-10); NRBC Flagged by Analyzer 0 % (0-5); Neutrophil % 46.6 % (47-70); Platelet Count 143 K/mm3 (150-450); RBC Distribution Width CV 15.7 % (11.6-14.6); RBC Distribution Width SD 55.6 fl (35.1-43.9); Red Blood Count 4.61 M/mm3 (4.6-6.2); White Blood Count 3.4 K/mm3 (4.4-11.0)
[2021-04-10 07:24] LABS: Anion Gap 4 (5-15); BUN 8 mg/dL (7-18); BUN/Creat Ratio 10.7 RATIO (10-20); Calcium,Total 7.5 mg/dL (8.5-10.1); Chloride 103 mmol/L (98-107); Creatinine, Serum 0.75 mg/dL (0.70-1.30); EST Glomerular Filtration Rate 113 mL/min (>60); Est Glom Filt Rate - Afr Amer 137 mL/min (>60); Glucose 113 mg/dL (74-106); Potassium 3.3 mmol/L (3.5-5.1); Sodium Level 140 mmol/L (136-145)
[2021-04-10] MEDS: Famotidine 20 MG Tablet 40 MG PO (09:19)
[2021-04-10] MEDS: Venlafaxine HCl 25 MG Tablet 50 MG PO ×2 (09:20→20:49)
[2021-04-10] MEDS: Allopurinol 100 MG Tablet PO (09:20)
[2021-04-10] MEDS: Cholecalciferol (VIT D3) 25 MCG TABLET (1,000 UNITS) 50 MCG PO (09:20)
[2021-04-10] MEDS: Metoprolol Tartrate 50 MG Tablet PO ×2 (09:25→20:49)
[2021-04-10] MEDS: clonazePAM 1 MG Tablet PO ×2 (09:25→20:49)
--- NOTE | 2021-04-10 11:15 | CASEMGMT ---
RN SHEILA Face to Face with patient for initial transition planning/care coordination assessment. RN SHEILA introduced self and role at [facility]. Patient lying in bed, alert and oriented. Patient willing to participate in assessment and is able to answer all questions appropriately. Care providers, pharmacy, and demographics verified. Patient wishes to discharge home with possible HHC. Patient provided with list of C agency in-network with patient's insurance and ratings. Patient states his first choice is [facility] or [facility]. CM will follow-up on Monday to make referrals. Patient states he has no further needs or concerns at this time. CM to follow for discharge planning needs that may arise. PCP: Vinay Specialists: none Preferred Pharmacy: [facility] Insurance: [employer] Prescription Benefit: yes Living Will/HPOA: none LNOK: mother Living Arrangements: Patient lives with sister, who is his caregiver, in a first floor apartment with ramp to enter. Patient states he is independent for self care but has been having more difficultly and falling. [facility] DME/HHC: patient states he has shower chair, BSC, cane, walker, wheelchair, medical alert, lift chair, grab bars, and scooter at home. Patient states he has previouly been to [facility] and [facility]. Disposition Plan: Patient to discharge home with HHC, family support, and follow-up plans in place. Paty MORELAND, RN, CM
--- NOTE | 2021-04-10 12:11 | PCM.PN.HOSP ---
Subjective Subjective Still with headache but currently improved. Objective Data Objective Data Vital Signs: Vital Signs Temp Pulse Resp BP Pulse Ox 36.7 C 112 H 19 H 128/101 H 96 04/10/21 09:18 04/10/21 11:00 04/10/21 11:00 04/10/21 11:00 04/10/21 11:00 Oxygen Delivery Method Room Air Weight: 180.5 kg Body Mass Index (BMI) 51.0 Intake & Output: Intake and Output for Last 24 Hours 04/08/21 04/09/21 04/10/21 23:59 23:59 23:59 Intake Total 830.55 / 863.85 232.12 / 232.12 Output Total 300 / 300 700 / 700 Balance 530.55 / 563.85 -467.88 / -467.88 Lab / Micro Data Result Diagrams: 04/10/21 06:41 04/10/21 06:41 Labs: Laboratory Results - last 24 hr 04/09/21 13:35: WBC 4.6, RBC 5.01, Hgb 15.9, Hct 47.1, MCV 94.0, MCH 31.7, MCHC 33.8, RDW Std Deviation 54.0 H, RDW Coeff of Tasha 15.5 H, Plt Count 203, MPV 10.1, Immature Gran % (Auto) 0.400, Neut % (Auto) 63.2, Lymph % (Auto) 23.3, [place] % (Auto) 11.0 H, Eos % (Auto) 1.5, Baso % (Auto) 0.6, Absolute Neuts (auto) 2.9, Absolute Lymphs (auto) 1.08, Nucleated RBC % 0 04/09/21 13:35: Sodium 139, Potassium 3.6, Chloride 102, Carbon Dioxide 30.0, Anion Gap 7, BUN 7, Creatinine 0.86, Estim Creat Clear Calc 107.53, Est GFR (MDRD) Af Amer 118, Est GFR (MDRD) Non-Af 97, BUN/Creatinine Ratio 8.2 L, Glucose 145 H, Calcium 8.1 L, Magnesium 1.7 04/09/21 13:35: Troponin I High Sens 36 04/09/21 16:53: Troponin I High Sens 37 04/09/21 20:40: Troponin I High Sens 36 04/10/21 06:41: WBC 3.4 L, RBC 4.61, Hgb 14.5, Hct 44.8, MCV 97.2 H, MCH 31.5, MCHC 32.4, RDW Std Deviation 55.6 H, RDW Coeff of Tasha 15.7 H, Plt Count 143 L, MPV 11.2, Immature Gran % (Auto) 0.300, Neut % (Auto) 46.6 L, Lymph % (Auto) 39.1, [place] % (Auto) 9.3, Eos % (Auto) 4.4, Baso % (Auto) 0.3, Absolute Neuts (auto) 1.6 L, Absolute Lymphs (auto) 1.34, Nucleated RBC % 0 04/10/21 06:41: Sodium 140, Potassium 3.3 L, Chloride 103, Carbon Dioxide 33.0 H, Anion Gap 4 L, BUN 8, Creatinine 0.75, Estim Creat Clear Calc 123.30, Est GFR (MDRD) Af Amer 137, Est GFR (MDRD) Non-Af 113, BUN/Creatinine Ratio 10.7, Glucose 113 H, Calcium 7.5 L Micro: Microbiology 04/09/21 17:00 Mucosa - Nose SARS-CoV-2 Antigen (Rapid) - Final Radiography Diagnostic Testing: Radiology Impression Brain CT 04/09/21 13:15 IMPRESSION: Chronic involutional changes of the brain. Small left scalp hematoma. Electronically Signed: Cole Hopper MD at 14:01 EDT , Service support , Chest X-Ray 04/09/21 13:50 IMPRESSION: Mild cardiomegaly. Electronically Signed: Cole Hopper MD at 14:13 EDT , Service support , Physical Exam Const alert and oriented x3 HEENT normocephalic and head/scalp atraumatic Eyes PERRL Neck no lymphadenopathy and supple Resp normal respiratory effort, no retractions, no use of accessory muscles and clear to auscultation bilaterally Cardio Cardio Narrative: Tachycardic. Irregularly irregular. GI normal to inspection, nondistended, normoactive bowel sounds, soft to palpation, non-tender and non-distended GI Narrative: Obese Extremity Extremity Narrative: Trace lower extremity edema. Skin Skin Narrative: Abrasion over left forehead Neuro moves all extremities Sensorium / Orientation: awake and alert Assessment & Plan Assessment/Plan (1) Atrial flutter with rapid ventricular response: (2) Post concussion syndrome: (3) Debility: PLAN: 1. Atrial fibrillation with RVR Still in A. fib with RVR. Changed over to amiodarone drip. Started on metoprolol. May need to give additional dose of diltiazem if that does not work then patient likely need to be put on amiodarone. Patient already anticoagulated with rivaroxaban Hold his home diltiazem 2. Postconcussion syndrome Ongoing but subjectively improved patient hit his head on the 19th Patient with headache, photophobia and nausea currently. Advised the patient to minimize screen time for the next 24 hours and to utilize his phone only in case of emergency 3. Debility Patient has a poor performance status at baseline PT OT evaluate and treat Patient has been in residential facility before but previously exhausted his days he is expressing willingness to go at this time if necessary. 4. VTE prophylaxis: Not indicated as patient is already anticoagulated 5. CODE STATUS: Discussed with the patient. Patient wishes to be DNR Comfort Care arrest. He is undecided about intubation so he will be with intubation if becomes necessary. 6. COVID-19 screening: Patient denies any risk factors. He declines the vaccine stating that he has good immune system. I informed patient that given his comorbidities and obesity that he has high risk for serious complications associated with COVID-19. He still declines the vaccine. I told him if he does change his mind that we can administer it to him garcia here in the hospital. Charges/Coding Visit Charges Inpatient E&M: 06815 Subs Hosp L2
[2021-04-10] MEDS: Potassium Chloride Oral Tablet 20 MEQ 40 MEQ PO (13:24)
--- NOTE | 2021-04-10 15:03 | EKG12_ITS ---
Test Reason : Blood Pressure : / mmHG Vent. Rate : 108 BPM Atrial Rate : 108 BPM P-R Int : 000 ms QRS Dur : 094 ms QT Int : 352 ms P-R-T Axes : 000 -59 019 degrees QTc Int : 471 ms Atrial Flutter with Variable Block Left axis deviation Low voltage QRS Inferior infarct , age undetermined Abnormal ECG When compared with ECG of 09-APR-2021 13:29, MANUAL COMPARISON REQUIRED, DATA IS UNCONFIRMED Confirmed by DESI BLOOM, ИВАН ([id number]), editor managing newspaper MEHUL JIMENEZ ([id number]) on 04/13/2021 8:04:24 AM Referred By: PRASHANTH Confirmed By:ИВАН WEEKS MD
--- NOTE | 2021-04-10 16:57 | PCM.PN.CARD ---
Subjective Subjective Seen at bedside with the nursing staff Feeling better no symptoms reported Objective Data Vital Signs: Vital Signs Temp Pulse Resp BP Pulse Ox 97.7 F L 118 H 14 136/102 H 96 04/10/21 15:00 04/10/21 15:08 04/10/21 15:08 04/10/21 15:08 04/10/21 15:08 Oxygen Delivery Method Room Air Weight: 397 lb 14.95 oz Body Mass Index (BMI) 51.0 Intake & Output: Intake and Output for Last 24 Hours 04/08/21 04/09/21 04/10/21 23:59 23:59 23:59 Intake Total 830.55 / 863.85 268.46 / 268.46 Output Total 300 / 300 700 / 700 Balance 530.55 / 563.85 -431.54 / -431.54 Lab / Micro Data Result Diagrams: 04/10/21 06:41 04/10/21 06:41 Labs: Laboratory Results - last 24 hr 04/09/21 16:53: Troponin I High Sens 37 04/09/21 20:40: Troponin I High Sens 36 04/10/21 06:41: WBC 3.4 L, RBC 4.61, Hgb 14.5, Hct 44.8, MCV 97.2 H, MCH 31.5, MCHC 32.4, RDW Std Deviation 55.6 H, RDW Coeff of Tasha 15.7 H, Plt Count 143 L, MPV 11.2, Immature Gran % (Auto) 0.300, Neut % (Auto) 46.6 L, Lymph % (Auto) 39.1, [place] % (Auto) 9.3, Eos % (Auto) 4.4, Baso % (Auto) 0.3, Absolute Neuts (auto) 1.6 L, Absolute Lymphs (auto) 1.34, Nucleated RBC % 0 04/10/21 06:41: Sodium 140, Potassium 3.3 L, Chloride 103, Carbon Dioxide 33.0 H, Anion Gap 4 L, BUN 8, Creatinine 0.75, Estim Creat Clear Calc 123.30, Est GFR (MDRD) Af Amer 137, Est GFR (MDRD) Non-Af 113, BUN/Creatinine Ratio 10.7, Glucose 113 H, Calcium 7.5 L Micro: Microbiology 04/09/21 17:00 Mucosa - Nose SARS-CoV-2 Antigen (Rapid) - Final Cardiology Labs/Tests 04/10/21 06:41: WBC 3.4 L, RBC 4.61, Hgb 14.5, Hct 44.8, MCV 97.2 H, MCH 31.5, MCHC 32.4, Plt Count 143 L, MPV 11.2, Immature Gran % (Auto) 0.300, Neut % (Auto) 46.6 L, Lymph % (Auto) 39.1, [place] % (Auto) 9.3, Eos % (Auto) 4.4, Baso % (Auto) 0.3, Absolute Neuts (auto) 1.6 L, Nucleated RBC % 0 04/10/21 06:41: Sodium 140, Potassium 3.3 L, Chloride 103, Carbon Dioxide 33.0 H, Anion Gap 4 L, BUN 8, Creatinine 0.75, Est GFR (MDRD) Af Amer 137, Est GFR (MDRD) Non-Af 113, BUN/Creatinine Ratio 10.7, Glucose 113 H, Calcium 7.5 L Rhythm: Atrial fibrillation with rapid ventricular rate EKG: A. fib with RVR ECHO: Limited 2D echocardiogram with EF 40-45% Radiography Diagnostic Testing: Radiology Impression Echocardiogram 04/10/21 05:55 Interpretation Summary The estimated ejection fraction is EF 40-45 %. TDS/Limited 2 D echo Ordering Physician: Ankit Aguilar Referring Physician: Chalo Mclean Chi Performed By: Rekha Fierro RDCS Physical Exam Narrative Patient seen and evaluated at bedside and examined along with the nursing staff Alert orientated Comfortable in bed no symptoms of chest pain quality assurance monitor showed A. fib with better controlled ventricular rate Cardiac examination S1-S2 irregular no systolic or diastolic murmur Chest examination clear to examination. Examination abdomen soft Examination lower extremity no clubbing no cyanosis no lower extremity edema Examination of central nervous system no focal neurological deficit. 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 We will continue amiodarone IV over the night 2. We will continue on anticoagulation due to the risk of stroke We will follow-up clinically. (2) Chronic atrial fibrillation: (3) Essential hypertension: (4) Morbid obesity: (5) Neuropathy:
[2021-04-10] MEDS: Rivaroxaban 20 MG Tablet PO (17:50)
[2021-04-10] MEDS: Nortriptyline 25 MG Capsule 75 MG PO (20:49)
[2021-04-10] MEDS: Doxepin Hcl 25 MG Capsule PO (20:49)
[2021-04-10] MEDS: 0.9% Saline Lock 10 ML Syringe IV (20:50)
[2021-04-11] VITALS (29 sets, daily range): BP systolic 110–158; BP diastolic 72–135; PULSE 87–113; RESP 14–23; TEMP 36.4–36.8; O2SAT 93–98
[2021-04-11] MEDS: Amiodarone 360 MG in Dextrose 5% Viaflo Bag 192.8 ML 16.7 MG CONT INF ×2 (03:08→15:27)
[2021-04-11 06:30] LABS: Anion Gap 3 (5-15); BUN 11 mg/dL (7-18); BUN/Creat Ratio 12.1 RATIO (10-20); Calcium,Total 7.9 mg/dL (8.5-10.1); Chloride 106 mmol/L (98-107); Creatinine, Serum 0.91 mg/dL (0.70-1.30); EST Glomerular Filtration Rate 90 mL/min (>60); Est Glom Filt Rate - Afr Amer 109 mL/min (>60); Estimated Creatinine Clearance 101.62 ml/min; Glucose 110 mg/dL (74-106); Potassium 4.1 mmol/L (3.5-5.1); Sodium Level 140 mmol/L (136-145)
[2021-04-11] MEDS: Allopurinol 100 MG Tablet PO (08:40)
[2021-04-11] MEDS: Venlafaxine HCl 25 MG Tablet 50 MG PO ×2 (08:40→21:18)
[2021-04-11] MEDS: Metoprolol Tartrate 50 MG Tablet PO ×2 (08:40→21:18)
[2021-04-11] MEDS: Cholecalciferol (VIT D3) 25 MCG TABLET (1,000 UNITS) 50 MCG PO (08:41)
[2021-04-11] MEDS: Famotidine 20 MG Tablet 40 MG PO (08:41)
[2021-04-11] MEDS: clonazePAM 1 MG Tablet PO ×2 (08:43→21:22)
[2021-04-11] MEDS: Acetaminophen 325 MG Tablet 650 MG PO ×2 (08:43→19:41)
[2021-04-11] MEDS: Albuterol 2.5 MG/3 ML VIAL.NEB. INHALATION (10:44)
--- NOTE | 2021-04-11 11:41 | PN.CARD_ITS ---
Subjective Subjective This patient is seen this morning along with the nursing staff Feeling better the atrial fibrillation better controlled on the current treatment. Objective Data Vital Signs: Vital Signs Temp Pulse Resp BP Pulse Ox 98.3 F 95 16 133/100 H 94 04/11/21 06:00 04/11/21 11:09 04/11/21 11:00 04/11/21 11:00 04/11/21 11:00 Oxygen Delivery Method Room Air Weight: 397 lb 14.95 oz Body Mass Index (BMI) 51.0 Intake & Output: Intake and Output for Last 24 Hours 04/09/21 04/10/21 04/11/21 23:59 23:59 23:59 Intake Total 830.55 / 863.85 399.83 / 416.53 420.00 / 420.00 Output Total 300 / 300 1750 / 1750 450 / 450 Balance 530.55 / 563.85 -1350.17 / -1333.47 -30.00 / -30.00 Lab / Micro Data Result Diagrams: 04/10/21 06:41 04/11/21 05:44 Labs: Laboratory Results - last 24 hr 04/11/21 05:44: Sodium 140, Potassium 4.1, Chloride 106, Carbon Dioxide 31.0, Anion Gap 3 L, BUN 11, Creatinine 0.91, Estim Creat Clear Calc 101.62, Est GFR (MDRD) Af Amer 109, Est GFR (MDRD) Non-Af 90, BUN/Creatinine Ratio 12.1, Glucose 110 H, Calcium 7.9 L Cardiology Labs/Tests 04/11/21 05:44: Sodium 140, Potassium 4.1, Chloride 106, Carbon Dioxide 31.0, Anion Gap 3 L, BUN 11, Creatinine 0.91, Est GFR (MDRD) Af Amer 109, Est GFR (MDRD) Non-Af 90, BUN/Creatinine Ratio 12.1, Glucose 110 H, Calcium 7.9 L Rhythm: A. fib with better controlled ventricular rate EKG: A. fib with RVR ECHO: EF 45 to 50%, moderately enlarged left atrium with left atrial measuring 4.5 cm Radiography Diagnostic Testing: Radiology Impression Echocardiogram 04/10/21 05:55 Interpretation Summary The estimated ejection fraction is EF 40-45 %. TDS/Limited 2 D echo Ordering Physician: Ankit Aguilar Referring Physician: Chalo Mclean Chi Performed By: Rekha Fierro RDCS Physical Exam Narrative Patient alert orientated x3 Not in acute distress satellite project site monitor reviewed and showed A. fib with better controlled ventricular rate. Cardiovascular lamination S1-S2 is irregular, there is no murmur no systolic or diastolic murmur Chest examination clear air entry bilateral Abdomen obese, soft Examination lower extremity no clubbing no cyanosis no lower extremity edema Examination of central nervous system no focal neurological deficit noted. Assessment & Plan Assessment/Plan (1) CHI (closed head injury): (2) Atrial flutter with rapid ventricular response: (3) Chronic atrial fibrillation: PLAN: 60-year-old patient admitted following a fall with the A. fib and rapid ventricular rate and also had a history of atrial flutter Patient has been on anticoagulation with Xarelto Recommendation and plan; 1. We will continue beta-gali and amiodarone as well as anticoagulation with Xarelto 2. LV function mildly reduced with moderately enlarged left atrium and echocardiogram 3. We will plan to shift to p.o. amiodarone tomorrow and if he stable clinically he can be discharged with the plan of follow-up with her primary circulation analyst Dr. Bruce. For continuation of cardiac care plan and to discuss further plan of management. (4) Morbid obesity: (5) Neuropathy:
--- NOTE | 2021-04-11 13:58 | PCM.PN.HOSP ---
Subjective Subjective Still with headache, but improved. Objective Data Objective Data Vital Signs: Vital Signs Temp Pulse Resp BP Pulse Ox 36.5 C L 101 H 20 H 142/98 H 96 04/11/21 12:00 04/11/21 13:00 04/11/21 13:00 04/11/21 13:00 04/11/21 13:00 Oxygen Delivery Method Room Air Weight: 180.5 kg Body Mass Index (BMI) 51.0 Intake & Output: Intake and Output for Last 24 Hours 04/09/21 04/10/21 04/11/21 23:59 23:59 23:59 Intake Total 830.55 / 863.85 399.83 / 416.53 453.40 / 453.40 Output Total 300 / 300 1750 / 1750 750 / 750 Balance 530.55 / 563.85 -1350.17 / -1333.47 -296.60 / -296.60 Lab / Micro Data Result Diagrams: 04/10/21 06:41 04/11/21 05:44 Labs: Laboratory Results - last 24 hr 04/11/21 05:44: Sodium 140, Potassium 4.1, Chloride 106, Carbon Dioxide 31.0, Anion Gap 3 L, BUN 11, Creatinine 0.91, Estim Creat Clear Calc 101.62, Est GFR (MDRD) Af Amer 109, Est GFR (MDRD) Non-Af 90, BUN/Creatinine Ratio 12.1, Glucose 110 H, Calcium 7.9 L Micro: Microbiology 04/09/21 17:00 Mucosa - Nose SARS-CoV-2 Antigen (Rapid) - Final Physical Exam Const alert Resp normal respiratory effort, no retractions, no use of accessory muscles and clear to auscultation bilaterally Cardio regular rate, regular rhythm, S1 normal heart sound and S2 normal heart sound GI normal to inspection, nondistended, normoactive bowel sounds, soft to palpation, non-tender and non-distended Extremity normal to inspection Assessment & Plan Assessment/Plan (1) Atrial flutter with rapid ventricular response: (2) Post concussion syndrome: (3) Debility: PLAN: 1. Atrial fibrillation with RVR Improved, but still in afib Continue amiodarone drip, plan per cardiology is to convert to PO on 04/12. Started on metoprolol. Patient already anticoagulated with rivaroxaban Hold his home diltiazem 2. Postconcussion syndrome Ongoing but subjectively improved patient hit his head on the 19th Patient with headache, photophobia and nausea currently. Advised the patient to minimize screen time for the next 24 hours and to utilize his phone only in case of emergency. However, still with TV blaring in his room. 3. Debility Patient has a poor performance status at baseline PT OT recommneded additional therpay CM to assist in disposition. 4. VTE prophylaxis: Not indicated as patient is already anticoagulated 5. CODE STATUS: Discussed with the patient. Patient wishes to be DNR Comfort Care arrest. He is undecided about intubation so he will be with intubation if becomes necessary. 6. COVID-19 screening: Patient denies any risk factors. He declines the vaccine stating that he has good immune system. I informed patient that given his comorbidities and obesity that he has high risk for serious complications associated with COVID-19. He still declines the vaccine. I told him if he does change his mind that we can administer it to him garcia here in the hospital. Charges/Coding Visit Charges Inpatient E&M: 49039 Subs Hosp L2
[2021-04-11] MEDS: Rivaroxaban 20 MG Tablet PO (18:31)
[2021-04-11] MEDS: Doxepin Hcl 25 MG Capsule PO (21:19)
[2021-04-11] MEDS: Nortriptyline 25 MG Capsule 75 MG PO (21:19)
[2021-04-12] VITALS (22 sets, daily range): BP systolic 118–151; BP diastolic 86–110; PULSE 78–108; RESP 14–28; TEMP 36–36.9; O2SAT 91–98
[2021-04-12] MEDS: Amiodarone 360 MG in Dextrose 5% Viaflo Bag 192.8 ML 16.7 MG CONT INF (03:41)
[2021-04-12 08:45] LABS: Anion Gap 3 (5-15); BUN 11 mg/dL (7-18); BUN/Creat Ratio 14.4 RATIO (10-20); Calcium,Total 7.9 mg/dL (8.5-10.1); Chloride 106 mmol/L (98-107); Creatinine, Serum 0.77 mg/dL (0.70-1.30); EST Glomerular Filtration Rate 110 mL/min (>60); Est Glom Filt Rate - Afr Amer 133 mL/min (>60); Glucose 112 mg/dL (74-106); Potassium 3.6 mmol/L (3.5-5.1); Sodium Level 138 mmol/L (136-145)
[2021-04-12] MEDS: Venlafaxine HCl 25 MG Tablet 50 MG PO ×2 (08:57→21:27)
[2021-04-12] MEDS: clonazePAM 1 MG Tablet PO ×2 (08:58→21:31)
[2021-04-12] MEDS: Metoprolol Tartrate 50 MG Tablet PO ×2 (08:58→12:58)
[2021-04-12] MEDS: Acetaminophen 325 MG Tablet 650 MG PO (08:58)
[2021-04-12] MEDS: Famotidine 20 MG Tablet 40 MG PO (08:58)
[2021-04-12] MEDS: Allopurinol 100 MG Tablet PO (08:59)
[2021-04-12] MEDS: Cholecalciferol (VIT D3) 25 MCG TABLET (1,000 UNITS) 50 MCG PO (08:59)
[2021-04-12] MEDS: Polyethylene Glycol 3350 17 GM PACKET PO (09:01)
--- NOTE | 2021-04-12 12:38 | PN.CARD_ITS ---
Subjective Subjective Patient seen and evaluated. Appears to be stable at this time. No complaints other than still feeling woozy from his fall Objective Data Vital Signs: Vital Signs Temp Pulse Resp BP Pulse Ox 96.8 F L 85 16 129/86 H 94 04/12/21 06:00 04/12/21 12:31 04/12/21 12:31 04/12/21 12:31 04/12/21 12:31 Oxygen Delivery Method Room Air Weight: 397 lb 14.95 oz Body Mass Index (BMI) 51.0 Intake & Output: Intake and Output for Last 24 Hours 04/10/21 04/11/21 04/12/21 23:59 23:59 23:59 Intake Total 399.83 / 416.53 1094.72 / 1111.42 701.43 / 701.43 Output Total 1750 / 1750 2400 / 2400 1225 / 1225 Balance -1350.17 / -1333.47 -1305.28 / -1288.58 -523.57 / -523.57 Lab / Micro Data Result Diagrams: 04/10/21 06:41 04/12/21 08:05 Labs: Laboratory Results - last 24 hr 04/12/21 05:36: Sodium Cancelled, Potassium Cancelled, Chloride Cancelled, Carbon Dioxide Cancelled, Anion Gap Cancelled, BUN Cancelled, Creatinine Cancelled, Estim Creat Clear Calc Cancelled, Est GFR (MDRD) Af Amer Cancelled, Est GFR (MDRD) Non-Af Cancelled, BUN/Creatinine Ratio Cancelled, Glucose Cancelled, Calcium Cancelled 04/12/21 08:05: Sodium 138, Potassium 3.6, Chloride 106, Carbon Dioxide 29.0, Anion Gap 3 L, BUN 11, Creatinine 0.77, Estim Creat Clear Calc 120.10, Est GFR (MDRD) Af Amer 133, Est GFR (MDRD) Non-Af 110, BUN/Creatinine Ratio 14.4, Glucose 112 H, Calcium 7.9 L Cardiology Labs/Tests 04/12/21 05:36: Sodium Cancelled, Potassium Cancelled, Chloride Cancelled, Carbon Dioxide Cancelled, Anion Gap Cancelled, BUN Cancelled, Creatinine Cancelled, Est GFR (MDRD) Af Amer Cancelled, Est GFR (MDRD) Non-Af Cancelled, B UN/Creatinine Ratio Cancelled, Glucose Cancelled, Calcium Cancelled 04/12/21 08:05: Sodium 138, Potassium 3.6, Chloride 106, Carbon Dioxide 29.0, Anion Gap 3 L, BUN 11, Creatinine 0.77, Est GFR (MDRD) Af Amer 133, Est GFR (MDRD) Non-Af 110, BUN/Creatinine Ratio 14.4, Glucose 112 H, Calcium 7.9 L Rhythm: EKG: Atrial fibrillation flutter with a controlled ventricular response rate ECHO: Global reduction in left ventricular systolic function estimated to be 45% Stress Test: Cardiac Cath: PCI: CT Surgery: Holter monitor: EPS: PPM: CXR: Chest CT Scan: Physical Exam Const oriented x3 HEENT normocephalic Eyes PERRL Neck supple Lymph Lymphatic: no lymphadenopathy noted Chest inspection of chest normal Resp normal respiratory effort Cardio Cardio Narrative: Irregular irregular heart rate GI normal to inspection, nondistended, normoactive bowel sounds Extremity no clubbing, cyanosis or edema Assessment & Plan Assessment/Plan (1) Atrial flutter with rapid ventricular response: PLAN: He appears to have chronic persistent atrial fibrillation flutter with rapid ventricular response rate. He is anticoagulated and is currently still being adjusted for rate control. * I would recommend that we increase his beta-gali to 100 mg of Lopressor twice a day * Discontinue the amiodarone at this time * If his rate is controlled over the next few hours or days he can be discharged for outpatient follow-up for definitive therapy which may include DC cardioversion, antiarrhythmic and or ablation. 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 (2) Essential hypertension: PLAN: His blood pressure appears to be under decent control. No major changes will be made other than the blood pressure medication changes. Thank you for allowing me to participate in the care of your patient. Please don't hesitate to call if any issues arise.
--- NOTE | 2021-04-12 13:08 | PN.HOSP_ITS ---
Subjective Subjective Patient seen and examined. He complained of some right-sided chest pain which was reproducible with palpation. His heart rate still remains elevated. He was times otherwise negative. He remains on amiodarone drip. Objective Data Objective Data Vital Signs: Vital Signs Temp Pulse Resp BP Pulse Ox 97.4 F L 97 18 139/95 H 97 04/12/21 12:00 04/12/21 13:00 04/12/21 13:00 04/12/21 13:00 04/12/21 13:00 Oxygen Delivery Method Room Air Weight: 397 lb 14.95 oz Body Mass Index (BMI) 51.0 Intake & Output: Intake and Output for Last 24 Hours 04/10/21 04/11/21 04/12/21 23:59 23:59 23:59 Intake Total 399.83 / 416.53 1094.72 / 1111.42 708.95 / 708.95 Output Total 1750 / 1750 2400 / 2400 1225 / 1225 Balance -1350.17 / -1333.47 -1305.28 / -1288.58 -516.05 / -516.05 Lab / Micro Data Result Diagrams: 04/10/21 06:41 04/12/21 08:05 Labs: Laboratory Results - last 24 hr 04/12/21 05:36: Sodium Cancelled, Potassium Cancelled, Chloride Cancelled, Carbon Dioxide Cancelled, Anion Gap Cancelled, BUN Cancelled, Creatinine Cancelled, Estim Creat Clear Calc Cancelled, Est GFR (MDRD) Af Amer Cancelled, Est GFR (MDRD) Non-Af Cancelled, BUN/Creatinine Ratio Cancelled, Glucose Cancelled, Calcium Cancelled 04/12/21 08:05: Sodium 138, Potassium 3.6, Chloride 106, Carbon Dioxide 29.0, Anion Gap 3 L, BUN 11, Creatinine 0.77, Estim Creat Clear Calc 120.10, Est GFR (MDRD) Af Amer 133, Est GFR (MDRD) Non-Af 110, BUN/Creatinine Ratio 14.4, Glucose 112 H, Calcium 7.9 L Micro: Microbiology 04/09/21 17:00 Mucosa - Nose SARS-CoV-2 Antigen (Rapid) - Final Physical Exam Const alert and no apparent distress Exam Limitations: no limitations Nutritional Appearance: morbidly obese HEENT head/scalp atraumatic and moist oral mucous membranes Head and Scalp: normocephalic Eyes PERRL, EOMs intact bilaterally and conjunctivae normal Neck no lymphadenopathy Resp normal respiratory effort, no retractions, no use of accessory muscles and clear to auscultation bilaterally Cardio S1 normal heart sound, S2 normal heart sound and no murmurs Cardio Narrative: A. fib, heart rate poorly controlled. GI normal to inspection, nondistended, normoactive bowel sounds, soft to palpation, non-tender and non-distended Extremity normal to inspection, full ROM and no clubbing, cyanosis or edema Peripheral Pulses: Yes pulses 2+ throughout Skin no rashes or lesions noted Neuro oriented x3, CN's II-XII intact bilaterally and moves all extremities Sensorium / Orientation: awake and alert Psych affect normal Assessment & Plan Assessment/Plan (1) Atrial flutter with rapid ventricular response: PLAN: #Afib wtih RVR * still in afib; on amiodarone drip, which has been discontinued by cardiology today. * lopressor increased to 100mg bid per cardiology * on xarelto or anticoagulation * #Post concussion syndrome * headache is improving * will monitor. * this was as a result of a mechanical fall * #Super morbid obesity * BMI is 51. This complicates acute care, expected recovery and prognosis * DVT prophylaxis: xarelto Charges/Coding Visit Charges Inpatient E&M: 58416 Subs Hosp L2
[2021-04-12] MEDS: Rivaroxaban 20 MG Tablet PO (17:01)
[2021-04-12] MEDS: Metoprolol Tartrate 100 MG Tablet PO (21:27)
[2021-04-12] MEDS: Doxepin Hcl 25 MG Capsule PO (21:27)
[2021-04-12] MEDS: Nortriptyline 25 MG Capsule 75 MG PO (21:28)
[2021-04-12] MEDS: Baclofen 10 MG Tablet PO (21:29)
[2021-04-13] VITALS (7 sets, daily range): BP systolic 125–137; BP diastolic 87–98; PULSE 88–99; RESP 15–16; TEMP 36.4–36.6; O2SAT 92–98
[2021-04-13 07:01] LABS: Absolute Lymphocyte Count 1.78 X10^3/uL (0.83-4.51); Absolute Neutrophil Count 4.7 X10^3/uL (2.0-7.7); Basophil# 0.03 X10^3/uL; Basophil% 0.4 % (0-1); Eosinophil# 0.21 X10^3/uL; Eosinophils% 2.9 % (0-5); Hematocrit 49.8 % (40-54); Hemoglobin 15.5 g/dL (13.0-16.5); Lymphocyte # 1.78 X10^3/ul (0.83-4.51); Lymphocyte % 24.5 % (19-41); Mean Corp Hgb Conc 31.1 g/dL (32-36); Mean Corpuscular Hgb 31.1 pg (27.0-32.0); Mean Platelet Vol. 10.3 fl (6.2-12.0); Monocyte# 0.55 X10^3/uL; Monocyte% 7.6 % (0-10); NRBC Flagged by Analyzer 0 % (0-5); Neutrophil # 4.69 X10^3/uL (2.7-7.7); Neutrophil % 64.3 % (47-70); Platelet Count 211 K/mm3 (150-450); RBC Distribution Width CV 15.3 % (11.6-14.6); RBC Distribution Width SD 56.8 fl (35.1-43.9); Red Blood Count 4.98 M/mm3 (4.6-6.2); White Blood Count 7.3 K/mm3 (4.4-11.0)
[2021-04-13 07:28] LABS: Anion Gap 7 (5-15); BUN 11 mg/dL (7-18); Calcium,Total 8.2 mg/dL (8.5-10.1); Chloride 102 mmol/L (98-107); Creatinine, Serum 0.92 mg/dL (0.70-1.30); EST Glomerular Filtration Rate 89 mL/min (>60); Est Glom Filt Rate - Afr Amer 108 mL/min (>60); Estimated Creatinine Clearance 100.52 ml/min; Glucose 119 mg/dL (74-106); Potassium 3.4 mmol/L (3.5-5.1); Sodium Level 139 mmol/L (136-145)
[2021-04-13] MEDS: Polyethylene Glycol 3350 17 GM PACKET PO (09:33)
[2021-04-13] MEDS: Potassium Chloride Oral Tablet 20 MEQ 40 MEQ PO (09:33)
[2021-04-13] MEDS: Acetaminophen 325 MG Tablet 650 MG PO (09:33)
[2021-04-13] MEDS: clonazePAM 1 MG Tablet PO (09:33)
[2021-04-13] MEDS: Metoprolol Tartrate 100 MG Tablet PO (09:34)
[2021-04-13] MEDS: Famotidine 20 MG Tablet 40 MG PO (09:34)
[2021-04-13] MEDS: Allopurinol 100 MG Tablet PO (09:34)
[2021-04-13] MEDS: Cholecalciferol (VIT D3) 25 MCG TABLET (1,000 UNITS) 50 MCG PO (09:34)
[2021-04-13] MEDS: Venlafaxine HCl 25 MG Tablet 50 MG PO (09:34)
--- NOTE | 2021-04-13 10:23 | CASEMGMT ---
Addendum entered by Paty Gonzalez 04/13/21 14:30: Pt states no preference on DME company and script for raised toilet seat faxed to [facility]. Pt updated on [facility] acceptance and is awaiting discharge. Marie DELGADILLO CM Addendum entered by Paty Gonzalez 04/13/21 11:37: Call to Keerthi at [facility] and she states they can accept pt at this time. Keerthi is aware that pt should discharge today, voices understanding. D/C summ/instructions to be faxed once obtained. Marie DELGADILLO CM Original Note: Pt states would like [facility] referral for SN, PT/OT/aide. Referral faxed to [facility]. Pt states would also like raised toilet seat script faxed. This ELIE SOSA advised pt will check with physician on DME order. Pt also states had been active with [facility] previously but cannot remember CM's name and does not know if he's still active. Douglas SW aware, voices understanding. CM to follow. Marie DELGADILLO CM
--- NOTE | 2021-04-13 11:38 | CASEMGMT ---
CAMILLA called [facility]. Patient is not active with them. He was assessed in Aug and was denied [facility] waiver. She said he can call back and get re-assessed. CAMILLA shared this information with RN SHEILA as patient asked her. Holly TEMPLE
--- NOTE | 2021-04-13 14:14 | PN.CARD_ITS ---
Subjective Subjective The patient is awake and alert. He states he has been up and in his chair. He knows that when he is up and active his heart rate still elevate somewhat. He states based upon his recurrent atrial fibrillation/flutter and difficult to control with respect to the rate he has had difficulty continuing his overall general rehabilitation and weight loss program. He states he would be interested in being referred to a tertiary care center to be considered for an ablation technique. Objective Data Vital Signs: Vital Signs Temp Pulse Resp BP Pulse Ox 97.9 F 88 16 137/87 H 98 04/13/21 09:30 04/13/21 09:34 04/13/21 09:30 04/13/21 09:30 04/13/21 09:30 Oxygen Delivery Method Room Air Weight: 397 lb 14.95 oz Body Mass Index (BMI) 51.0 Intake & Output: Intake and Output for Last 24 Hours 04/11/21 04/12/21 04/13/21 23:59 23:59 23:59 Intake Total 1094.72 / 1111.42 1068.95 / 1068.95 400 / 400 Output Total 2400 / 2400 1700 / 1700 1880 / 1880 Balance -1305.28 / -1288.58 -631.05 / -631.05 -1480 / -1480 Lab / Micro Data Result Diagrams: 04/13/21 05:59 04/13/21 05:59 Labs: Laboratory Results - last 24 hr 04/13/21 05:59: WBC 7.3, RBC 4.98, Hgb 15.5, Hct 49.8, MCV 100.0 H, MCH 31.1, MCHC 31.1 L, RDW Std Deviation 56.8 H, RDW Coeff of Tasha 15.3 H, Plt Count 211, MPV 10.3, Immature Gran % (Auto) 0.300, Neut % (Auto) 64.3, Lymph % (Auto) 24.5, [place] % (Auto) 7.6, Eos % (Auto) 2.9, Baso % (Auto) 0.4, Absolute Neuts (auto) 4.7, Absolute Lymphs (auto) 1.78, Nucleated RBC % 0 04/13/21 05:59: Sodium 139, Potassium 3.4 L, Chloride 102, Carbon Dioxide 30.0, Anion Gap 7, BUN 11, Creatinine 0.92, Estim Creat Clear Calc 100.52, Est GFR (MDRD) Af Amer 108, Est GFR (MDRD) Non-Af 89, BUN/Creatinine Ratio 12.0, Glucose 119 H, Calcium 8.2 L Cardiology Labs/Tests 04/13/21 05:59: WBC 7.3, RBC 4.98, Hgb 15.5, Hct 49.8, MCV 100.0 H, MCH 31.1, MCHC 31.1 L, Plt Count 211, MPV 10.3, Immature Gran % (Auto) 0.300, Neut % (Auto) 64.3, Lymph % (Auto) 24.5, Sunflower % (Auto) 7.6, Eos % (Auto) 2.9, Baso % (Auto) 0.4, Absolute Neuts (auto) 4.7, Nucleated RBC % 0 04/13/21 05:59: Sodium 139, Potassium 3.4 L, Chloride 102, Carbon Dioxide 30.0, Anion Gap 7, BUN 11, Creatinine 0.92, Est GFR (MDRD) Af Amer 108, Est GFR (MDRD) Non-Af 89, BUN/Creatinine Ratio 12.0, Glucose 119 H, Calcium 8.2 L Rhythm: Atrial flutter Physical Exam Const alert and oriented x3 Orientation / Consciousness: awake HEENT normocephalic Eyes PERRL, EOMs intact bilaterally and conjunctivae normal Neck full ROM, supple and no JVD Resp clear to auscultation bilaterally Cardio Rhythm: abnormal rhythm irregularly irregular Heart Sounds: S1 normal and S2 normal GI normal to inspection, nondistended, normoactive bowel sounds Extremity General Extremity: edema bilateral lower extremity Details: mild Assessment & Plan Assessment/Plan (1) Atrial flutter with rapid ventricular response: PLAN: The patient has a history of underlying atrial fibrillation/flutter. At the moment his heart rate is coming under better control. An attempt will be made to increase his beta-gali therapy to metoprolol tartrate 150 mg twice daily to assist with heart rate control. He will continue anticoagulant therapy. As an outpatient he can be referred to electrophysiology for consideration for EPS/RFA. (2) Essential hypertension: PLAN: The patient's blood pressure is being followed. He will continue medical adjustment as deemed appropriate. (3) CHI (closed head injury): PLAN: The patient states he did have more than one fall. He states he was diagnosed with a concussion. He continues under evaluation care by internal medicine.
--- NOTE | 2021-04-13 15:13 | DS.PCM_ITS ---
Providers Date of Admission: 04/09/21 Primary Care Physician: Dr. Chalo Mclean MD Consultations 04/09/21 17:30 Consult: Cardiology Routine Consulting Provider: Santy Hobson Reason for Consult: afib rvr EMERGENT Consult: No MD Notified: Yes Date Notified: 04/09/21 Time Notified: 17:30 Method of Notification: Text Reason For Visit: A FLUTTER RVR Diagnosis Discharge Diagnosis (1) Atrial flutter with rapid ventricular response: Status: Acute Code(s): I48.92 - Unspecified atrial flutter (2) Essential hypertension: Status: Chronic Code(s): I10 - Essential (primary) hypertension (3) CHI (closed head injury): Status: Acute Code(s): S09.90XA - Unspecified injury of head, initial encounter Medications at Discharge Home Medications albuterol sulfate 2 puff INHALATION Q6H PRN PRN 03/30/18 clonazepam 1 mg PO BID 03/30/18 cyanocobalamin (vitamin B-12) 1,000 mcg IM Q30D 05/28/18 allopurinol 100 mg tablet 100 mg PO DAILY 03/28/19 venlafaxine 50 mg tablet 100 mg PO TID 03/28/19 Cbd Oil 1 dose PO DAILY PRN 07/30/19 cholecalciferol (vitamin D3) 2,000 unit PO DAILY 07/30/19 acetaminophen 650 mg PO Q6H PRN PRN tab 08/01/19 lidocaine 5 % topical patch 1 patch TOPICAL DAILY PRN 02/13/20 rivaroxaban 20 mg tablet 20 mg PO DAILY #90 tab 07/29/20 cyclobenzaprine 10 mg tablet 10 mg PO HS PRN tab 08/18/20 doxepin 25 mg capsule 25 mg PO QHS cap 08/18/20 famotidine 40 mg tablet 40 mg PO DAILY tab 08/18/20 sulfamethoxazole 400 mg-trimethoprim 80 mg tablet 1 tab PO DAILY tab 08/18/20 pregabalin [Lyrica] 150 mg PO BID 04/09/21 tamsulosin 0.4 mg PO DAILY 04/09/21 valsartan-hydrochlorothiazide 1 tab PO DAILY 04/09/21 metoprolol tartrate 150 mg PO BID #120 tab 04/13/21 Hospital Course Operations None Procedures None Summary of Care Provided Minutes Spent on Discharge: 40 Hospital Course: Patient is a a 60 y/o male with an extensive PMH as outlined who presented via the ED with a complaint of a mechanical fall from his wheelchair. After the fall, he thinks he blacked out. He didnt go to the hospital. He started having nausea and vomiting as well as headache, so he came into the ED. He was found to be afib with RVR. He was started on cardizem drip after he was given a bolus. He was continued on his home dose of xarelto for anticoagulation. Cardiology was consulted. He remained in persistent afib with RVR, so he was switched to amiodarone drip and also started on metoprolol. He was gradually weaned off amiodarone drip. 2D echo showed Ef of 40-45%. He still remained in afib, though it was rate controlled. He was therefore discharged home on 04/13/2021, and is to follow up with his video games storywriter in 1-2 weeks. Patient wanted to know about ablation, and was counseled to follow up with his video games storywriter to have the discussion about ablation. Patient seen and examined. He had no complaints and felt well. REview of systems is otherwise negative. Labs and vitals reviewed, home meds reviewed and reconciled. Physical Exam Const alert, oriented x3 and no apparent distress General Appearance: cooperative and comfortable Exam Limitations: no limitations Nutritional Appearance: morbidly obese HEENT normocephalic, head/scalp atraumatic and moist oral mucous membranes Eyes PERRL, EOMs intact bilaterally and conjunctivae normal Neck no lymphadenopathy and supple Resp normal respiratory effort, no retractions, no use of accessory muscles and clear to auscultation bilaterally Cardio regular rate, regular rhythm, S1 normal heart sound, S2 normal heart sound and no murmurs Cardio Narrative: A. fib, heart rate poorly controlled. GI normal to inspection, nondistended, normoactive bowel sounds, soft to palpation, non-tender and non-distended GI Narrative: Obese Extremity normal to inspection, full ROM and no clubbing, cyanosis or edema Extremity Narrative: Trace lower extremity edema. Skin no rashes or lesions noted Skin Narrative: Abrasion over left forehead Neuro oriented x3, CN's II-XII intact bilaterally and moves all extremities Sensorium / Orientation: awake and alert Psych affect normal Weight / BMI Weight Weight: 397 lb 14.95 oz Body Mass Index (BMI) 51.0 ABG / Lab / Microbiology Data Result Diagrams: 04/13/21 05:59 04/13/21 05:59 Laboratory: Laboratory Results - last 24 hr 04/13/21 05:59: WBC 7.3, RBC 4.98, Hgb 15.5, Hct 49.8, MCV 100.0 H, MCH 31.1, MCHC 31.1 L, RDW Std Deviation 56.8 H, RDW Coeff of Tasha 15.3 H, Plt Count 211, MPV 10.3, Immature Gran % (Auto) 0.300, Neut % (Auto) 64.3, Lymph % (Auto) 24.5, Frederick % (Auto) 7.6, Eos % (Auto) 2.9, Baso % (Auto) 0.4, Absolute Neuts (auto) 4.7, Absolute Lymphs (auto) 1.78, Nucleated RBC % 0 04/13/21 05:59: Sodium 139, Potassium 3.4 L, Chloride 102, Carbon Dioxide 30.0, Anion Gap 7, BUN 11, Creatinine 0.92, Estim Creat Clear Calc 100.52, Est GFR (MDRD) Af Amer 108, Est GFR (MDRD) Non-Af 89, BUN/Creatinine Ratio 12.0, Glucose 119 H, Calcium 8.2 L Microbiology: Microbiology 04/09/21 17:00 Mucosa - Nose SARS-CoV-2 Antigen (Rapid) - Final D/C Instructions Discharge Diet: Low fat / Low cholesterol Discharge Activity: Return to Normal Activity Call your doctor if you observe: Fever of 101 or Higher, Shortness of breath, Swelling in the ankles and Increased palpitations (irregular heartbeat) Meaningful Use Info Meaningful Use Diagnoses (Choose all that apply): None applicable Discharge Plan Admission Admit Date/Time: 04/09/21 16:36 Primary Reason for Your Visit: afib with RVR Attending Provider: Sherley Larsen Primary Care Provider: Chalo Mclean Chi Consulting Providers: Santy Hobson Instructions Patient Instructions: After a Concussion, ED About Arrhythmias, ED Atrial Flutter Discharge Orders/Prescriptions Prescriptions: New metoprolol tartrate 75 mg tablet 150 mg PO BID Qty: 120 RF: 1 Continued allopurinol 100 mg tablet 100 mg PO DAILY RF: 0 venlafaxine 50 mg tablet 100 mg PO TID RF: 0 lidocaine 5 % adhesive patch,medicated 1 patch TOPICAL DAILY PRN (Reason: Pain) RF: 0 doxepin 25 mg capsule 25 mg PO QHS RF: 0 famotidine 40 mg tablet 40 mg PO DAILY RF: 0 cyclobenzaprine 10 mg tablet 10 mg PO HS PRN (Reason: MUSCLE RELAXER) RF: 0 clonazepam 1 MG tablet 1 mg PO BID RF: 0 albuterol sulfate 1 INHALER inhaler 2 puff INHALATION Q6H PRN PRN (Reason: Sob &/Or Wheezing) RF: 0 cyanocobalamin (vitamin B-12) 1,000 MCG/ML solution 1,000 mcg IM Q30D RF: 0 cholecalciferol (vitamin D3) 2,000 UNIT capsule 2,000 unit PO DAILY RF: 0 Cbd Oil 1 dose PO DAILY PRN (Reason: Pain) RF: 0 acetaminophen 325 MG tablet 650 mg PO Q6H PRN PRN (Reason: Pain Score 1-3/Temp > 100.7 F) RF: 0 sulfamethoxazole-trimethoprim 400-80 mg tablet 1 tab PO DAILY RF: 0 valsartan-hydrochlorothiazide 160-12.5 mg Tablet 1 tab PO DAILY RF: 0 tamsulosin 0.4 mg Capsule 0.4 mg PO DAILY RF: 0 pregabalin [Lyrica] 150 mg Capsule 150 mg PO BID RF: 0 rivaroxaban 20 mg tablet 20 mg PO DAILY Qty: 90 RF: 3 Discontinued metoprolol tartrate 25 mg Tablet 25 mg PO BID RF: 0 Referrals / Follow Up: Renan Bruce MD [STAFF PHYSICIAN] - Within 2 Weeks Chalo Mclean Chi, MD [Primary Care Provider] - Within 2 Weeks Disposition Disposition (needs filled in before D/C Order can be placed): Home, Self Care Charges/Coding Visit Charges Inpatient E&M: 52075 Disch Hosp
[2021-04-13] MEDS: Rivaroxaban 20 MG Tablet PO (16:17)
== END 2021-04-13 16:53 | disposition home or self-care (01) | DRG 201 ==
LOC: ED 15:13 → PCU 16:39
PROVIDERS: Emergency Provider Emergency Medicine; PCP Family Medicine Geriatric Medicine; Visit Provider Student in an Organized Health Care Education/Training Program
DX: I48.19 Other persistent atrial fibrillation (principal); I48.92 Unspecified atrial flutter; I10 Essential (primary) hypertension; S00.03XA Contusion of scalp, initial encounter; W05.0XXA Fall from non-moving wheelchair, initial encounter; E66.01 Morbid (severe) obesity due to excess calories; G44.309 Post-traumatic headache, unspecified, not intractable; F07.81 Postconcussional syndrome; G62.9 Polyneuropathy, unspecified; R29.6 Repeated falls; Z68.43 Body mass index [BMI] 50.0-59.9, adult; Z66 Do not resuscitate; Z99.3 Dependence on wheelchair; Z79.01 Long term (current) use of anticoagulants; Z79.899 Other long term (current) drug therapy; Z87.891 Personal history of nicotine dependence
CPT/HCPCS: 36415; 70450; 71045; 80048; 83735; 84484; 85025; 87426; 93005; 93306; 94640; 97110; 97162; 97166; 97530; 97535; 99285; Q9957; A4216; C8929; J3490

== ENCOUNTER 2021-04-27 19:11 | Observation (INO) | payer MEDICAID, SELFPAY ==
[2021-04-27] VITALS (10 sets, daily range): BP systolic 144–167; BP diastolic 97–118; PULSE 109–119; RESP 16–22; TEMP 36.4; O2SAT 94–98; BMI 55.3
--- NOTE | 2021-04-27 19:19 | EKG12_ITS ---
Test Reason : PALPS Blood Pressure : / mmHG Vent. Rate : 111 BPM Atrial Rate : 122 BPM P-R Int : 000 ms QRS Dur : 096 ms QT Int : 304 ms P-R-T Axes : 000 -57 026 degrees QTc Int : 413 ms Atrial fibrillation Left axis deviation Low voltage QRS Inferior infarct , age undetermined Abnormal ECG Confirmed by JEREMIAS BLOOM, CORAZON ([id number]), editor at large MEHUL JIMENEZ ([id number]) on 04/29/2021 9:16:04 AM Referred By: SCOTT Confirmed By:CORAZON MCDOWELL MD
--- NOTE | 2021-04-27 19:59 | RAD_ITS ---
STUDY: X-RAY CHEST REASON FOR EXAM: Male, 60 years old. chest pain TECHNIQUE: Single AP portable view of the chest. COMPARISON: 04/09/2021. FINDINGS: The lungs are clear and expanded. There is no demonstrated pleural abnormality. Normal size heart. Normal mediastinum and tom. Normal visualized pulmonary arteries. Normal visualized aortic arch and descending thoracic aorta. Normal visualized thoracic spine. Normal visualized ribs, clavicles, and shoulders. There is no demonstrated abnormality of the visualized soft tissue structures of the upper abdomen. RAD/Chest 1 View (Portable) IMPRESSION: Normal x-ray examination of the chest. Electronically Signed: Jaleesa Muro MD at 21:21 EDT Tel , Service support ,
[2021-04-27 20:23] LABS: Absolute Lymphocyte Count 1.47 X10^3/uL (0.83-4.51); Absolute Neutrophil Count 5.6 X10^3/uL (2.0-7.7); Basophil# 0.04 X10^3/uL; Basophil% 0.5 % (0-1); Eosinophil# 0.24 X10^3/uL; Hematocrit 44.5 % (40-54); Lymphocyte # 1.47 X10^3/ul (0.83-4.51); Lymphocyte % 18.7 % (19-41); Mean Corp Hgb Conc 33.7 g/dL (32-36); Mean Corpuscular Volume 94.9 fL (80-94); Mean Platelet Vol. 10.2 fl (6.2-12.0); Monocyte# 0.52 X10^3/uL; Monocyte% 6.6 % (0-10); NRBC Flagged by Analyzer 0 % (0-5); Neutrophil # 5.59 X10^3/uL (2.7-7.7); Neutrophil % 70.9 % (47-70); Platelet Count 291 K/mm3 (150-450); RBC Distribution Width CV 15.4 % (11.6-14.6); RBC Distribution Width SD 53.4 fl (35.1-43.9); Red Blood Count 4.69 M/mm3 (4.6-6.2); White Blood Count 7.9 K/mm3 (4.4-11.0)
--- NOTE | 2021-04-27 20:34 | EDS_ITS ---
HPI History of Present Illness Chief Complaint: Palpitations Informant: patient Onset/Context/Timing Onset: Today Current Severity: Mild Maximum Severity: Moderate Narrative Narrative: Patient present secondary to palpitations and chest pressure. Patient has a history of A. fib. He is on metoprolol for rate control and Xarelto for anticoagulation. He states he woke this morning with his heart rate in the 140s. He did take his morning dose of metoprolol. He states he still feels like his heart is racing and he has an elephant on my chest. He does report shortness of breath. [facility] Medical History Abdominal wall pain ADD (attention deficit disorder) Atrial fibrillation Atrial flutter BPH (benign prostatic hyperplasia) Calcium deficiency CHI (closed head injury) Chronic atrial fibrillation Chronic pain Debility Depression Essential hypertension Fibromyalgia History of DVT (deep vein thrombosis) History of sepsis Left fibular fracture Morbid obesity Neuropathy Rheumatic fever Traumatic injury to skin or subcutaneous tissue Vitamin B12 deficiency Home Medications albuterol sulfate 2 puff INHALATION Q6H PRN PRN 03/30/18 [History Last Taken 07/27/19] clonazepam 1 mg PO BID 03/30/18 [History Last Taken 04/08/21 22:00] cyanocobalamin (vitamin B-12) 1,000 mcg IM Q30D 05/28/18 [History Last Taken 03/21/21 08:00] allopurinol 100 mg tablet 100 mg PO DAILY 03/28/19 [History Last Taken 04/08/21 08:00] venlafaxine 50 mg tablet 100 mg PO TID 03/28/19 [History Last Taken 04/08/21 22:00] Cbd Oil 1 dose PO DAILY PRN 07/30/19 [History Last Taken 07/16/19] cholecalciferol (vitamin D3) 2,000 unit PO DAILY 07/30/19 [History Last Taken 04/08/21 08:00] acetaminophen 650 mg PO Q6H PRN PRN tab 08/01/19 [Rx Last Taken Unknown] lidocaine 5 % topical patch 1 patch TOPICAL DAILY PRN 02/13/20 [History Last Taken Unknown] rivaroxaban 20 mg tablet 20 mg PO DAILY #90 tab 07/29/20 [Rx Last Taken 04/08/21 08:00] cyclobenzaprine 10 mg tablet 10 mg PO HS PRN tab 08/18/20 [History Last Taken 04/08/21 22:00] doxepin 25 mg capsule 25 mg PO QHS cap 08/18/20 [History Last Taken 04/08/21 22:00] famotidine 40 mg tablet 40 mg PO DAILY tab 08/18/20 [History Last Taken 04/08/21 08:00] sulfamethoxazole 400 mg-trimethoprim 80 mg tablet 1 tab PO DAILY tab 08/18/20 [History Last Taken 04/08/21 08:00] pregabalin [Lyrica] 150 mg PO BID 04/09/21 [History Last Taken 04/08/21 22:00] tamsulosin 0.4 mg PO DAILY 04/09/21 [History Last Taken 04/08/21 08:00] valsartan-hydrochlorothiazide 1 tab PO DAILY 04/09/21 [History Last Taken 04/08/21 08:00] metoprolol tartrate 150 mg PO BID #120 tab 04/13/21 [Rx Last Taken Unknown] Allergy/AdvReac Type Severity Reaction Status Date / Time duloxetine [From Cymbalta] AdvReac Other Verified 04/27/21 19:12 Family History Mother Diabetes Thyroid disorder Father Diabetes Heart disease CABG x5 in his 50s COPD (chronic obstructive pulmonary disease) Hypertension Surgical History H/O gastric bypass History of hernia repair Status post removal of thyroid nodule Social History Smoking Status: Former smoker how long ago did patient quit smokin years ago second hand exposure: No alcohol intake: current alcohol intake frequency: a few times a week substance use type: does not use caffeine: No what type of physical activity do you participate in: none and walking frequency: decline to answer ROS ROS ED Constitutional Constitutional ED: Denies chills or fever(s) Eyes Eyes: Denies change in vision ENT ENT ED: Denies sore throat Cardiovascular Cardiovascular: Reports chest pain, palpitations and racing heartbeat Respiratory/Chest Respiratory/Chest: Reports dyspnea; Denies cough Gastrointestinal Gastrointestinal: Denies abdominal pain, diarrhea, nausea or vomiting Genitourinary Genitourinary ED: Denies dysuria Musculoskeletal Musculoskeletal: Denies back pain Integumentary Denies rash Neurologic Neurologic: Denies headache(s) or weakness Allergic/Immunologic Allergic/Immunologic ED: Denies urticaria EXAM Physical Exam Const Vital Signs: 04/27/21 19:12 04/27/21 20:11 04/27/21 20:15 Temperature 97.5 F L Temperature Source Temporal Pulse Rate 109 H 114 H Respiratory Rate 22 H 16 Respiratory Effort Blood Pressure 163/118 H 161/97 H Blood Pressure Mean 133 118 Pulse Ox 94 97 97 Oxygen Delivery Method Room Air Room Air Room Air 04/27/21 20:16 04/27/21 20:34 04/27/21 21:00 Temperature Temperature Source Pulse Rate 114 H 113 H Respiratory Rate 17 Respiratory Effort Normal Non-Labored Blood Pressure 144/110 H Blood Pressure Mean 121 Pulse Ox 95 Oxygen Delivery Method Room Air 04/27/21 21:06 04/27/21 21:10 04/27/21 22:00 Temperature Temperature Source Pulse Rate 109 H 112 H 111 H Respiratory Rate Respiratory Effort Blood Pressure 154/101 H 145/106 H 167/103 H Blood Pressure Mean 118 119 124 Pulse Ox Oxygen Delivery Method Positive well nourished and well developed General Appearance ED: well developed HEENT Reports normocephalic and head/scalp atraumatic Eyes PERRL and EOMs intact bilaterally Neck supple Chest Wall inspection of chest normal and palpation of chest normal Resp normal respiratory effort and clear to auscultation bilaterally Cardio Rate: tachycardic Rhythm: abnormal rhythm irregularly irregular GI normal to inspection, nondistended, normoactive bowel sounds and non-tender Palpation: soft Extremity normal to inspection Neuro oriented x3 Sensorium / Orientation: alert Psych Mood & Affect: tearful Skin no rashes or lesions noted MDM MDM MDM Narrative Medical decision making narrative: Lab work, EKG, chest x-ray, Covid swab obtained. Patient was given 3 doses of IV metoprolol, 5 mg each. Lab Data Attestation: I reviewed the patient's lab results. Labs: Laboratory Results - last 24 hr 04/27/21 04/27/21 19:45 19:45 WBC 7.9 RBC 4.69 Hgb 15.0 Hct 44.5 MCV 94.9 H MCH 32.0 MCHC 33.7 RDW Std Deviation 53.4 H RDW Coeff of Tasha 15.4 H Plt Count 291 MPV 10.2 Immature Gran % (Auto) 0.300 Neut % (Auto) 70.9 H Lymph % (Auto) 18.7 L Waller % (Auto) 6.6 Eos % (Auto) 3.0 Baso % (Auto) 0.5 Absolute Neuts (auto) 5.6 Absolute Lymphs (auto) 1.47 Nucleated RBC % 0 Sodium 139 Potassium 4.4 Chloride 105 Carbon Dioxide 27.0 Anion Gap 7 BUN 8 Creatinine 0.83 Estim Creat Clear Calc 102.06 Est GFR (MDRD) Af Amer 122 Est GFR (MDRD) Non-Af 101 BUN/Creatinine Ratio 9.7 L Glucose 120 H Calcium 7.7 L Troponin I High Sens 30 Radiography Chest X-Ray - ED: 1 View, Read by ED Physician and Chronic Changes Diagnostic Testing: Radiology Impression Chest X-Ray 04/27/21 19:59 IMPRESSION: Normal x-ray examination of the chest. Electronically Signed: Jaleesa Muro MD at 21:21 EDT Tel , Service support , EKG Initial EKG: Attestation: I personally reviewed and interpreted this EKG as follows: Interpretation: Atrial Fibrillation (A. fib at [address].) Treatment and Re-Evaluation Comments:: Patient was recently admitted to the hospital for A. fib RVR. Those visit notes are reviewed. Patient was discharged on increased dose of metoprolol. After 3 doses of IV metoprolol patient's heart rate remains in the 1 teens. He was given his normal evening dose of p.o. metoprolol. On repeat evaluation heart rate is in the low 120s. I spoke Dr. Bruce and reviewed the patient's recent hospital admission and treatment routes. He did suggest giving the patient 500 mcg of digoxin. If this improves his heart rate he can be given additional doses. I will speak with hospitalist. Discharge Plan Triage Chief Complaint: Palpitations ED Provider: Adeltia Deng Dx/Rx/DC Orders Clinical Impression: Atrial fibrillation with rapid ventricular response Prescriptions: No Action allopurinol 100 mg tablet 100 mg PO DAILY RF: 0 venlafaxine 50 mg tablet 100 mg PO TID RF: 0 lidocaine 5 % adhesive patch,medicated 1 patch TOPICAL DAILY PRN (Reason: Pain) RF: 0 doxepin 25 mg capsule 25 mg PO QHS RF: 0 famotidine 40 mg tablet 40 mg PO DAILY RF: 0 cyclobenzaprine 10 mg tablet 10 mg PO HS PRN (Reason: MUSCLE RELAXER) RF: 0 clonazepam 1 MG tablet 1 mg PO BID RF: 0 albuterol sulfate 1 INHALER inhaler 2 puff INHALATION Q6H PRN PRN (Reason: Sob &/Or Wheezing) RF: 0 cyanocobalamin (vitamin B-12) 1,000 MCG/ML solution 1,000 mcg IM Q30D RF: 0 cholecalciferol (vitamin D3) 2,000 UNIT capsule 2,000 unit PO DAILY RF: 0 Cbd Oil 1 dose PO DAILY PRN (Reason: Pain) RF: 0 acetaminophen 325 MG tablet 650 mg PO Q6H PRN PRN (Reason: Pain Score 1-3/Temp > 100.7 F) RF: 0 sulfamethoxazole-trimethoprim 400-80 mg tablet 1 tab PO DAILY RF: 0 valsartan-hydrochlorothiazide 160-12.5 mg Tablet 1 tab PO DAILY RF: 0 tamsulosin 0.4 mg Capsule 0.4 mg PO DAILY RF: 0 pregabalin [Lyrica] 150 mg Capsule 150 mg PO BID RF: 0 metoprolol tartrate 75 mg tablet 150 mg PO BID Qty: 120 RF: 1 rivaroxaban 20 mg tablet 20 mg PO DAILY Qty: 90 RF: 3 Primary Care Provider: Chalo Mclean Chi Referrals: Chalo Mclean Chi, MD [Primary Care Provider] - Disposition Disposition: Acute Care Hospital [facility]
[2021-04-27 20:44] LABS: Anion Gap 7 (5-15); BUN 8 mg/dL (7-18); BUN/Creat Ratio 9.7 RATIO (10-20); Calcium,Total 7.7 mg/dL (8.5-10.1); Chloride 105 mmol/L (98-107); Creatinine, Serum 0.83 mg/dL (0.70-1.30); EST Glomerular Filtration Rate 101 mL/min (>60); Est Glom Filt Rate - Afr Amer 122 mL/min (>60); Estimated Creatinine Clearance 102.06 ml/min; Glucose 120 mg/dL (74-106); Potassium 4.4 mmol/L (3.5-5.1); Sodium Level 139 mmol/L (136-145); Troponin-I HS 30 pg/mL (3.0-78.0)
[2021-04-27] MEDS: Metoprolol Tartrate 5 MG/5 ML Vial IV ×3 (20:54→21:07)
[2021-04-27] MEDS: Metoprolol Tartrate 50 MG Tablet 150 MG PO (22:11)
[2021-04-27] MEDS: Digoxin 250 MCG/ML Ampul 500 MCG IV (23:23)
[2021-04-28] VITALS (17 sets, daily range): BP systolic 143–175; BP diastolic 87–119; PULSE 88–115; RESP 14–18; TEMP 36.2–37.2; O2SAT 96–99; BMI 52.9
--- NOTE | 2021-04-28 00:30 | PCM.HP.STD ---
Documented by User: BORIS Bird 04/28/21 00:50 HPI - General General Date of Admission: 04/28/21 Date of Service: 04/28/21 Chief Complaint: Palpitations HPI Narrative CARLIN SMITH, is a 60 M who presents with complaints of palpitations. Patient states that all day patient has felt palpitations, has chest pressure, and has had a higher heart rate in the 140s. Patient states that his normal heart rate is in the 60s. Patient reports that he was recently hospitalized for similar symptoms. Upon chart review patient was admitted 04/09/2021 and discharged on 04/13/2021 for atrial flutter with rapid ventricular response. EKG completed in ER shows atrial fibrillation with heart rate at 111 obtained following 3 doses of IV metoprolol. Patient denies fever, chills, shortness of breath, chest pain, nausea, vomiting. Per ER report Case was discussed with Dr. Bruce who advised giving digoxin 500 mcg x 1 and reevaluating heart rate. Upon evaluation in ER patient's heart rate remains in the 110's. [facility] Medical History Abdominal wall pain ADD (attention deficit disorder) Atrial fibrillation Atrial flutter BPH (benign prostatic hyperplasia) Calcium deficiency CHI (closed head injury) Chronic atrial fibrillation Chronic pain Debility Depression Essential hypertension Fibromyalgia History of DVT (deep vein thrombosis) History of sepsis Left fibular fracture Morbid obesity Neuropathy Rheumatic fever Traumatic injury to skin or subcutaneous tissue Vitamin B12 deficiency Home Medications albuterol sulfate 2 puff INHALATION Q6H PRN PRN 03/30/18 [History Last Taken 07/27/19] clonazepam 1 mg PO BID 03/30/18 [History Last Taken 04/08/21 22:00] cyanocobalamin (vitamin B-12) 1,000 mcg IM Q30D 05/28/18 [History Last Taken 04/22/21] allopurinol 100 mg tablet 100 mg PO DAILY 03/28/19 [History Last Taken 04/08/21 08:00] venlafaxine 50 mg tablet 100 mg PO TID 03/28/19 [History Last Taken 04/08/21 22:00] Cbd Oil 1 dose PO DAILY PRN 07/30/19 [History Last Taken 07/16/19] cholecalciferol (vitamin D3) 2,000 unit PO DAILY 07/30/19 [History Last Taken 04/08/21 08:00] acetaminophen 650 mg PO Q6H PRN PRN tab 08/01/19 [Rx Last Taken Unknown] lidocaine 5 % topical patch 1 patch TOPICAL DAILY PRN 02/13/20 [History Last Taken Unknown] rivaroxaban 20 mg tablet 20 mg PO DAILY #90 tab 07/29/20 [Rx Last Taken 04/08/21 08:00] cyclobenzaprine 10 mg tablet 10 mg PO HS PRN tab 08/18/20 [History Last Taken 04/08/21 22:00] doxepin 25 mg capsule 25 mg PO QHS cap 08/18/20 [History Last Taken 04/08/21 22:00] famotidine 40 mg tablet 40 mg PO DAILY tab 08/18/20 [History Last Taken 04/08/21 08:00] sulfamethoxazole 400 mg-trimethoprim 80 mg tablet 1 tab PO DAILY tab 08/18/20 [History Last Taken 04/08/21 08:00] pregabalin [Lyrica] 150 mg PO BID 04/09/21 [History Last Taken 04/08/21 22:00] tamsulosin 0.4 mg PO DAILY 04/09/21 [History Last Taken 04/08/21 08:00] valsartan-hydrochlorothiazide 1 tab PO DAILY 04/09/21 [History Last Taken 04/08/21 08:00] metoprolol tartrate 150 mg PO BID #120 tab 04/13/21 [Rx Last Taken Unknown] Allergy/AdvReac Type Severity Reaction Status Date / Time duloxetine [From Cymbalta] AdvReac Other Verified 04/27/21 19:12 Family History Mother Diabetes Thyroid disorder Father Diabetes Heart disease CABG x5 in his 50s COPD (chronic obstructive pulmonary disease) Hypertension Surgical History H/O gastric bypass History of hernia repair Status post removal of thyroid nodule Social History Smoking Status: Former smoker how long ago did patient quit smokin years ago second hand exposure: No alcohol intake: current alcohol intake frequency: a few times a week substance use type: does not use caffeine: No what type of physical activity do you participate in: none and walking frequency: decline to answer ROS Constitutional Constitutional: Reports fatigue; Denies anorexia, chills, fever(s), malaise or weakness Cardiovascular Cardiovascular: Reports arrhythmia on telemetry, dyspnea on exertion, palpitations and rapid heart rate; Denies chest pain or edema Respiratory/Chest Respiratory/Chest: Denies cough, shortness of breath at rest or shortness of breath with exertion Gastrointestinal Gastrointestinal: Denies abdominal pain, constipation, diarrhea, nausea or vomiting Genitourinary Genitourinary: Denies dysuria Musculoskeletal Musculoskeletal: Denies back pain, extremity pain, joint pain or joint stiffness Integumentary Integumentary: Denies dry skin Neurologic Neurologic: Denies abnormal gait, abnormal speech, confusion, dizziness or focal weakness Psychiatric Psychiatric: Denies anxiety or depression Endocrine Endocrinology: Denies change in body appearance Hematologic/Lymphatic Hematologic/Lymphatic: Denies anemia, easy bleeding or easy bruising Vital Signs Vital Signs Vital Signs: 04/27/21 19:12 04/27/21 20:11 04/27/21 20:15 Temperature 97.5 F L Temperature Source Temporal Pulse Rate 109 H 114 H Respiratory Rate 22 H 16 Respiratory Effort Blood Pressure 163/118 H 161/97 H Blood Pressure Mean 133 118 Pulse Ox 94 97 97 Oxygen Delivery Method Room Air Room Air Room Air Oxygen Flow Rate (L/min) 04/27/21 20:16 04/27/21 20:34 04/27/21 21:00 Temperature Temperature Source Pulse Rate 114 H 113 H Respiratory Rate 17 Respiratory Effort Normal Non-Labored Blood Pressure 144/110 H Blood Pressure Mean 121 Pulse Ox 95 Oxygen Delivery Method Room Air Oxygen Flow Rate (L/min) 04/27/21 21:06 04/27/21 21:10 04/27/21 22:00 Temperature Temperature Source Pulse Rate 109 H 112 H 111 H Respiratory Rate Respiratory Effort Blood Pressure 154/101 H 145/106 H 167/103 H Blood Pressure Mean 118 119 124 Pulse Ox Oxygen Delivery Method Oxygen Flow Rate (L/min) 04/27/21 23:21 04/27/21 23:27 04/28/21 00:23 Temperature 98.9 F Temperature Source Temporal Pulse Rate 119 H 115 H 115 H Respiratory Rate 17 16 Respiratory Effort Blood Pressure 153/107 H 155/99 H 160/101 H Blood Pressure Mean 122 117 120 Pulse Ox 98 99 Oxygen Delivery Method Nasal Cannula Nasal Cannula Oxygen Flow Rate (L/min) 2 2 Weight Weight: 397 lb Body Mass Index (BMI) 55.3 Physical Exam Const alert, oriented x3 and no apparent distress General Appearance: cooperative HEENT normocephalic and head/scalp atraumatic Eyes conjunctivae normal and no scleral icterus Resp normal respiratory effort, normal air movement and clear to auscultation bilaterally Cardio S1 normal heart sound, S2 normal heart sound and peripheral pulses 2+ throughout Rate: tachycardic Rhythm: abnormal rhythm irregularly irregular GI normal to inspection, nondistended, normoactive bowel sounds, soft to palpation and non-tender Extremity normal capillary refill and no clubbing, cyanosis or edema General Extremity: no tenderness to palpation of joints or extremities Skin General Skin Exam: no breakdown and turgor normal Lesions: no lesions Rashes: no rashes Neuro no focal motor deficits and no sensory deficits noted Speech: speech normal Motor Exam: Negative for general weakness Psych thought process normal, cooperative and affect normal Appearance: appropriate Results Lab / Micro Data Result Diagrams: 04/27/21 19:45 04/27/21 19:45 Labs: Laboratory Results - last 24 hr 04/27/21 19:45: WBC 7.9, RBC 4.69, Hgb 15.0, Hct 44.5, MCV 94.9 H, MCH 32.0, MCHC 33.7, RDW Std Deviation 53.4 H, RDW Coeff of Tasha 15.4 H, Plt Count 291, MPV 10.2, Immature Gran % (Auto) 0.300, Neut % (Auto) 70.9 H, Lymph % (Auto) 18.7 L, Arthur % (Auto) 6.6, Eos % (Auto) 3.0, Baso % (Auto) 0.5, Absolute Neuts (auto) 5.6, Absolute Lymphs (auto) 1.47, Nucleated RBC % 0 04/27/21 19:45: Sodium 139, Potassium 4.4, Chloride 105, Carbon Dioxide 27.0, Anion Gap 7, BUN 8, Creatinine 0.83, Estim Creat Clear Calc 102.06, Est GFR (MDRD) Af Amer 122, Est GFR (MDRD) Non-Af 101, BUN/Creatinine Ratio 9.7 L, Glucose 120 H, Calcium 7.7 L, Troponin I High Sens 30 Micro: Microbiology 04/27/21 20:37 Nasal Secretion SARS-CoV-2 Antigen (Rapid) - Final Radiology Impression Chest X-Ray 04/27/21 19:59 IMPRESSION: Normal x-ray examination of the chest. Electronically Signed: Jaleesa Muro MD at 21:21 EDT Tel , Service support , Assessment & Plan Assessment/Plan (1) Atrial fibrillation with rapid ventricular response: PLAN: 1. Atrial fibrillation with RVR -Admit to PCU for cardiac monitoring -Consult cardiology, case discussed with Dr. Bruce by ER physician. Per cardiology digoxin 500 mcg given in ER, may be repeated if needed -CBC and BMP ordered daily -Continue metoprolol 150mg twice daily -Continue Xarelto 2. Hypertension -Vital signs per protocol -Continue home medication regimen We will continue patient's home medication regimen for all other chronic diseases including gout, depression, fibromyalgia, BPH, and neuropathy. DVT prophylaxis-not indicated This patient was seen by BORIS Bird under the supervision of Dr. Duron. Documented by User: Dr. Michael Duron MD 04/28/21 02:14 HPI - General General Date of Admission: 04/28/21 [facility] Medical History Abdominal wall pain ADD (attention deficit disorder) Atrial fibrillation Atrial flutter BPH (benign prostatic hyperplasia) Calcium deficiency CHI (closed head injury) Chronic atrial fibrillation Chronic pain Debility Depression Essential hypertension Fibromyalgia History of DVT (deep vein thrombosis) History of sepsis Left fibular fracture Morbid obesity Neuropathy Rheumatic fever Traumatic injury to skin or subcutaneous tissue Vitamin B12 deficiency Home Medications albuterol sulfate 2 puff INHALATION Q6H PRN PRN 03/30/18 [History Last Taken 07/27/19] clonazepam 1 mg PO BID 03/30/18 [History Last Taken 04/08/21 22:00] cyanocobalamin (vitamin B-12) 1,000 mcg IM Q30D 05/28/18 [History Last Taken 04/22/21] allopurinol 100 mg tablet 100 mg PO DAILY 03/28/19 [History Last Taken 04/08/21 08:00] venlafaxine 50 mg tablet 100 mg PO TID 03/28/19 [History Last Taken 04/08/21 22:00] Cbd Oil 1 dose PO DAILY PRN 07/30/19 [History Last Taken 07/16/19] cholecalciferol (vitamin D3) 2,000 unit PO DAILY 07/30/19 [History Last Taken 04/08/21 08:00] acetaminophen 650 mg PO Q6H PRN PRN tab 08/01/19 [Rx Last Taken Unknown] lidocaine 5 % topical patch 1 patch TOPICAL DAILY PRN 02/13/20 [History Last Taken Unknown] rivaroxaban 20 mg tablet 20 mg PO DAILY #90 tab 07/29/20 [Rx Last Taken 04/08/21 08:00] cyclobenzaprine 10 mg tablet 10 mg PO HS PRN tab 08/18/20 [History Last Taken 04/08/21 22:00] doxepin 25 mg capsule 25 mg PO QHS cap 08/18/20 [History Last Taken 04/08/21 22:00] famotidine 40 mg tablet 40 mg PO DAILY tab 08/18/20 [History Last Taken 04/08/21 08:00] sulfamethoxazole 400 mg-trimethoprim 80 mg tablet 1 tab PO DAILY tab 08/18/20 [History Last Taken 04/08/21 08:00] pregabalin [Lyrica] 150 mg PO BID 04/09/21 [History Last Taken 04/08/21 22:00] tamsulosin 0.4 mg PO DAILY 04/09/21 [History Last Taken 04/08/21 08:00] valsartan-hydrochlorothiazide 1 tab PO DAILY 04/09/21 [History Last Taken 04/08/21 08:00] metoprolol tartrate 150 mg PO BID #120 tab 04/13/21 [Rx Last Taken Unknown] Allergy/AdvReac Type Severity Reaction Status Date / Time duloxetine [From Cymbalta] AdvReac Other Verified 04/27/21 19:12 Family History Mother Diabetes Thyroid disorder Father Diabetes Heart disease CABG x5 in his 50s COPD (chronic obstructive pulmonary disease) Hypertension Surgical History H/O gastric bypass History of hernia repair Status post removal of thyroid nodule Social History Smoking Status: Former smoker how long ago did patient quit smokin years ago second hand exposure: No alcohol intake: current alcohol intake frequency: a few times a week substance use type: does not use caffeine: No what type of physical activity do you participate in: none and walking frequency: decline to answer Results Lab / Micro Data Result Diagrams: 04/27/21 19:45 04/27/21 19:45 Charges/Coding Addendum Addendum: Dr. Duron: I personally reviewed the chart and examined the patient, and agree with the above findings. 60-year-old male who was recently admitted for A. fib with RVR, was on amiodarone drip at that time presents back to the hospital with A. fib with RVR. He took his metoprolol this morning but still felt that his heart was racing so he presented to the ER. Cardiology was consulted and ordered 500 mcg of digoxin, he also received his nighttime dose of 150 mg of metoprolol as well as 3 doses of IV metoprolol. His heart rate is in the low 100s currently. He did have a recent echo therefore another one will not be repeated. His echo on 04/10/2021 demonstrated an EF of 40 to 45%. Visit Charges Inpatient E&M: 10424 Init Hosp L2
--- NOTE | 2021-04-28 01:01 | PCS.PANDOC ---
PANDEMIC DOCUMENTATION INITIATED: Date: 04/05/2021 Time: 190
[2021-04-28 08:14] LABS: Absolute Lymphocyte Count 1.39 X10^3/uL (0.83-4.51); Absolute Neutrophil Count 5.8 X10^3/uL (2.0-7.7); Basophil# 0.04 X10^3/uL; Basophil% 0.5 % (0-1); Eosinophil# 0.22 X10^3/uL; Eosinophils% 2.8 % (0-5); Hematocrit 45.4 % (40-54); Hemoglobin 15.1 g/dL (13.0-16.5); Lymphocyte # 1.39 X10^3/ul (0.83-4.51); Lymphocyte % 17.5 % (19-41); Mean Corp Hgb Conc 33.3 g/dL (32-36); Mean Corpuscular Hgb 32.3 pg (27.0-32.0); Mean Corpuscular Volume 97.2 fL (80-94); Mean Platelet Vol. 11.6 fl (6.2-12.0); Monocyte# 0.49 X10^3/uL; Monocyte% 6.2 % (0-10); NRBC Flagged by Analyzer 0.4 % (0-5); Neutrophil # 5.77 X10^3/uL (2.7-7.7); Neutrophil % 72.6 % (47-70); Platelet Count 316 K/mm3 (150-450); RBC Distribution Width CV 15.5 % (11.6-14.6); RBC Distribution Width SD 55.2 fl (35.1-43.9); Red Blood Count 4.67 M/mm3 (4.6-6.2); White Blood Count 7.9 K/mm3 (4.4-11.0)
[2021-04-28 08:20] LABS: Anion Gap 9 (5-15); BUN 8 mg/dL (7-18); BUN/Creat Ratio 9.8 RATIO (10-20); Calcium,Total 7.8 mg/dL (8.5-10.1); Chloride 104 mmol/L (98-107); Creatinine, Serum 0.81 mg/dL (0.70-1.30); EST Glomerular Filtration Rate 103 mL/min (>60); Est Glom Filt Rate - Afr Amer 125 mL/min (>60); Estimated Creatinine Clearance 114.17 ml/min; Glucose 111 mg/dL (74-106); Potassium 5.1 mmol/L (3.5-5.1); Sodium Level 139 mmol/L (136-145)
--- NOTE | 2021-04-28 10:04 | CON.PCM.CA_ITS ---
Assessment & Plan Assessment/Plan (1) Atrial fibrillation with rapid ventricular response: PLAN: The patient has a longstanding history of atrial fibrillation. He has been on rate control therapy and anticoagulant therapy. His atrial fibrillation has been challenging to control with his rate control therapy. He was to have future outpatient cardiovascular follow-up and referral to electrophysiology for consideration for EPS/RFA. In the meantime he has returned with his atrial fibrillation with RVR which may be exacerbated by noncardiac symptoms and/or issues. An attempt is being made to bring his rate under better control again. He did have a brief interruption of his anticoagulation therapy, per his own report, approximately 2 weeks ago. Ideally he would need to continue anticoagulant therapy without interruption for a minimum of 3 to 4 weeks before attempting an elective synchronized biphasic DC cardioversion to minimize the risk of any thromboembolic formation/process. In the interim, if he would need to undergo synchronized biphasic DC cardioversion sooner than he may have to be considered for YOLIE guided procedures. However, based upon his longstanding atrial dysrhythmia, it may be challenging to regain and/or maintain sinus rhythm with medical therapy and synchronized biphasic DC cardioversion. Thus, the impetus for referral for an EP consultation/input was thought to be prudent. (2) Cardiomyopathy: PLAN: Based upon his last echocardiogram his estimated LVEF appeared to be somewhat diminished. This was during his atrial fibrillation with RVR. In the past his overall LV wall motion systolic function was thought to be preserved. The present time he will continue medical management for his atrial fibrillation and for an underlying cardiomyopathy as deemed appropriate. (3) HTN (hypertension): PLAN: His blood pressure is elevated. He will need to continue medical adjustment. Addt'l Comments The patient's case was discussed and reviewed with the patient and Dr. Sherman. This note was generated using a voice recognition system and there may be incorrect words, spelling or punctuation that were not noted when reviewing the office note prior to saving. HPI Consult Data Date of Consult: 04/28/21 HPI Narrative HPI Narrative: CARLIN SMITH, is a 60 year old white male who presents for cardiovascular consultation for atrial fibrillation with RVR superimposed upon a history of underlying hypertension and previous thromboembolic disease/DVT. The patient states that he has not been feeling well at home since the recent holiday. He states he feels like his stomach and intestines are on fire . He notes he has had some loose bowel movements/sludge . During this time he feels that his heart rate has been elevated. He states the people assisting him at home have noticed his heart rate has been elevated. Thus he was sent back to the emergency department for reevaluation. There he was noted to be in continued atrial fibrillation with RVR. This is despite, to the best of his recollection, taking his medications as prescribed with respect to his beta- gali therapy. He states he has been on his anticoagulant therapy barring a brief interruption approximately 2 weeks ago for approximately 2 days for a dental/oral surgical procedure. He does not appear to describe chest discomfort other than the sensation of his palpitations. There is been no issues of acute CHF or pulmonary edema. He has had no near syncope or syncope. He has an element of chronic lower extremity peripheral pitting edema. He continues to require assistance at home based upon his body habitus. He states he is doing the best he can to try and continue to lose weight and continue OT/PT therapy. In the emergency department he was evaluated. He was treated with additional rate limiting therapy with IV digitalis. It appears his rate did improve somewhat. He states the other concern he has is when he becomes anxious his blood pressure elevates. His blood pressure has been elevated. [facility] Medical History (Updated 04/28/21 @ 10:[address] Renan Bruce MD) Abdominal wall pain ADD (attention deficit disorder) Atrial fibrillation Atrial flutter BPH (benign prostatic hyperplasia) Calcium deficiency Cardiomyopathy CHI (closed head injury) Chronic atrial fibrillation Chronic pain Debility Depression Essential hypertension Fibromyalgia History of DVT (deep vein thrombosis) History of sepsis HTN (hypertension) Left fibular fracture Morbid obesity Neuropathy Rheumatic fever Traumatic injury to skin or subcutaneous tissue Vitamin B12 deficiency Home Medications albuterol sulfate 2 puff INHALATION Q6H PRN PRN 03/30/18 [History Last Taken 07/27/19] clonazepam 1 mg PO BID 03/30/18 [History Last Taken 04/08/21 22:00] cyanocobalamin (vitamin B-12) 1,000 mcg IM Q30D 05/28/18 [History Last Taken 04/22/21] allopurinol 100 mg tablet 100 mg PO DAILY 03/28/19 [History Last Taken 04/08/21 08:00] venlafaxine 50 mg tablet 100 mg PO TID 03/28/19 [History Last Taken 04/08/21 22 :00] Cbd Oil 1 dose PO DAILY PRN 07/30/19 [History Last Taken 07/16/19] cholecalciferol (vitamin D3) 2,000 unit PO DAILY 07/30/19 [History Last Taken 04/08/21 08:00] acetaminophen 650 mg PO Q6H PRN PRN tab 08/01/19 [Rx Last Taken Unknown] lidocaine 5 % topical patch 1 patch TOPICAL DAILY PRN 02/13/20 [History Last Taken Unknown] rivaroxaban 20 mg tablet 20 mg PO DAILY #90 tab 07/29/20 [Rx Last Taken 04/08/21 08:00] cyclobenzaprine 10 mg tablet 10 mg PO HS PRN tab 08/18/20 [History Last Taken 0 04/08/21 22:00] doxepin 25 mg capsule 25 mg PO QHS cap 08/18/20 [History Last Taken 04/08/21 22:00] famotidine 40 mg tablet 40 mg PO DAILY tab 08/18/20 [History Last Taken 04/08/21 08:00] sulfamethoxazole 400 mg-trimethoprim 80 mg tablet 1 tab PO DAILY tab 08/18/20 [History Last Taken 04/08/21 08:00] pregabalin [Lyrica] 150 mg PO BID 04/09/21 [History Last Taken 04/08/21 22:00] tamsulosin 0.4 mg PO DAILY 04/09/21 [History Last Taken 04/08/21 08:00] valsartan-hydrochlorothiazide 1 tab PO DAILY 04/09/21 [History Last Taken 04/08/21 08:00] metoprolol tartrate 150 mg PO BID #120 tab 04/13/21 [Rx Last Taken Unknown] Allergy/AdvReac Type Severity Reaction Status Date / Time duloxetine [From Cymbalta] AdvReac Other Verified 04/27/21 19:12 Family History Mother Diabetes Thyroid disorder Father Diabetes Heart disease CABG x5 in his 50s COPD (chronic obstructive pulmonary disease) Hypertension Surgical History H/O gastric bypass History of hernia repair Status post removal of thyroid nodule Social History Smoking Status: Former smoker how long ago did patient quit smokin years ago second hand exposure: No alcohol intake: current alcohol intake frequency: a few times a week substance use type: does not use caffeine: No what type of physical activity do you participate in: none and walking frequency: decline to answer ROS Constitutional Constitutional: Reports as per HPI Eyes Eyes: Reports as per HPI ENT HEENT: Reports as per HPI Cardiovascular Cardiovascular: Reports palpitations Respiratory/Chest Respiratory/Chest: Reports as per HPI Gastrointestinal Gastrointestinal: Reports as per HPI Genitourinary Genitourinary: Reports as per HPI Musculoskeletal Musculoskeletal: Reports as per HPI Integumentary Integumentary: Reports as per HPI Neurologic Neurologic: Reports as per HPI Physical Exam Narrative This is a 60-year-old obese white male who appears to be resting reasonably comfortably at the moment in no acute distress. Const alert, oriented x3 and no apparent distress Orientation / Consciousness: awake HEENT normocephalic, head/scalp atraumatic and hearing grossly normal bilaterally Eyes PERRL, EOMs intact bilaterally and conjunctivae normal Neck supple and no JVD Resp normal respiratory effort and clear to auscultation bilaterally Cardio Rhythm: abnormal rhythm irregularly irregular Heart Sounds: S1 normal and S2 normal GI normal to inspection, nondistended, normoactive bowel sounds Extremity General Extremity: edema bilateral lower extremity Details: mild Neuro oriented x3 and moves all extremities Psych mental status grossly normal Procedure Criteria Type of Procedure Procedure Type: Elective Elective Risks - COVID COVID Risk Discussion: The surgeon/proceduralist and patient have discussed in detail the risk of exposure to and/or potential harm posed by the COVID-19 virus with having a surgery/procedure at this time versus the risk of delaying the tobar rgery/procedure. It is not possible to know either the risk of delaying the surgery or procedure or chance of getting an infection with perfect accuracy, but a joint decision was made between the patient and the surgeon/proceduralist to proceed at this time with the scheduled surgery/procedure as indicated on the consent form. Objective Data Vital Signs: Vital Signs Temp Pulse Resp BP Pulse Ox 97.2 F L 106 H 16 173/114 H 97 04/28/21 05:31 04/28/21 07:00 04/28/21 05:31 04/28/21 05:31 04/28/21 05:31 Oxygen Flow Rate (L/min) 2 Oxygen Delivery Method Room Air Weight: 412 lb 11.285 oz Body Mass Index (BMI) 52.9 Intake & Output: Intake and Output for Last 24 Hours 04/26/21 04/27/21 04/28/21 23:59 23:59 23:59 Intake Total 120 / 120 Output Total 275 / 275 Balance -155 / -155 Lab / Micro Data Result Diagrams: 04/28/21 05:50 04/28/21 05:50 Labs: Laboratory Results - last 24 hr 04/27/21 19:45: WBC 7.9, RBC 4.69, Hgb 15.0, Hct 44.5, MCV 94.9 H, MCH 32.0, MCHC 33.7, RDW Std Deviation 53.4 H, RDW Coeff of Tasha 15.4 H, Plt Count 291, MPV 10.2, Immature Gran % (Auto) 0.300, Neut % (Auto) 70.9 H, Lymph % (Auto) 18.7 L, [place] % (Auto) 6.6, Eos % (Auto) 3.0, Baso % (Auto) 0.5, Absolute Neuts (auto) 5.6, Absolute Lymphs (auto) 1.47, Nucleated RBC % 0 04/27/21 19:45: Sodium 139, Potassium 4.4, Chloride 105, Carbon Dioxide 27.0, Anion Gap 7, BUN 8, Creatinine 0.83, Estim Creat Clear Calc 102.06, Est GFR (MDRD) Af Amer 122, Est GFR (MDRD) Non-Af 101, BUN/Creatinine Ratio 9.7 L, Glucose 120 H, Calcium 7.7 L, Troponin I High Sens 30 04/28/21 05:50: WBC 7.9, RBC 4.67, Hgb 15.1, Hct 45.4, MCV 97.2 H, MCH 32.3 H, MCHC 33.3, RDW Std Deviation 55.2 H, RDW Coeff of Tasha 15.5 H, Plt Count 316, MPV 11.6, Immature Gran % (Auto) 0.400, Neut % (Auto) 72.6 H, Lymph % (Auto) 17.5 L, [place] % (Auto) 6.2, Eos % (Auto) 2.8, Baso % (Auto) 0.5, Absolute Neuts (auto) 5.8, Absolute Lymphs (auto) 1.39, Nucleated RBC % 0.4 04/28/21 05:50: Sodium 139, Potassium 5.1, Chloride 104, Carbon Dioxide 26.0, Anion Gap 9, BUN 8, Creatinine 0.81, Estim Creat Clear Calc 114.17, Est GFR (MDRD) Af Amer 125, Est GFR (MDRD) Non-Af 103, BUN/Creatinine Ratio 9.8 L, Glucose 111 H, Calcium 7.8 L Micro: Microbiology 04/27/21 20:37 Nasal Secretion SARS-CoV-2 Antigen (Rapid) - Final Cardiology Labs/Tests 04/27/21 19:45: WBC 7.9, RBC 4.69, Hgb 15.0, Hct 44.5, MCV 94.9 H, MCH 32.0, MCHC 33.7, Plt Count 291, MPV 10.2, Immature Gran % (Auto) 0.300, Neut % (Auto) 70.9 H, Lymph % (Auto) 18.7 L, [place] % (Auto) 6.6, Eos % (Auto) 3.0, Baso % (Auto) 0.5, Absolute Neuts (auto) 5.6, Nucleated RBC % 0 04/27/21 19:45: Sodium 139, Potassium 4.4, Chloride 105, Carbon Dioxide 27.0, Anion Gap 7, BUN 8, Creatinine 0.83, Est GFR (MDRD) Af Amer 122, Est GFR (MDRD) Non-Af 101, BUN/Creatinine Ratio 9.7 L, Glucose 120 H, Calcium 7.7 L 04/28/21 05:50: WBC 7.9, RBC 4.67, Hgb 15.1, Hct 45.4, MCV 97.2 H, MCH 32.3 H, MCHC 33.3, Plt Count 316, MPV 11.6, Immature Gran % (Auto) 0.400, Neut % (Auto) 72.6 H, Lymph % (Auto) 17.5 L, [place] % (Auto) 6.2, Eos % (Auto) 2.8, Baso % (Auto) 0.5, Absolute Neuts (auto) 5.8, Nucleated RBC % 0.4 04/28/21 05:50: Sodium 139, Potassium 5.1, Chloride 104, Carbon Dioxide 26.0, Anion Gap 9, BUN 8, Creatinine 0.81, Est GFR (MDRD) Af Amer 125, Est GFR (MDRD) Non-Af 103, BUN/Creatinine Ratio 9.8 L, Glucose 111 H, Calcium 7.8 L Rhythm: Atrial fibrillation EKG: Atrial fibrillation; left axis deviation; low voltage QRS; poor R wave progression; inferior RI of indeterminate age cannot be excluded ECHO: 04-10-2021 Interpretation Summary The estimated ejection fraction is EF 40-45 %. TDS/Limited 2 D echo Stress Test: 08-01-2019 Stress echocardiogram: Interpretation Summary The estimated ejection fraction is 65 %. Normal, adequate, dobutamine echocardiogram. Negative for ischemia by EKG and echocardiographic criteria. No anginal symptoms noted. Rare PVCs noted. Test terminated due to the attainment target heart rate. Final LVEF is 75%. Decreased sensitivity due to poor echo windows requiring Definity agent. Patient tolerated the procedure well. No complications. Patient tolerated procedure well. No complications. The study was technically difficult. Contrast injection was performed. Radiography Diagnostic Testing: Radiology Impression Chest X-Ray 04/27/21 19:59 IMPRESSION: Normal x-ray examination of the chest. Electronically Signed: Jaleesa Muro MD at 21:21 EDT Tel , Service support ,
--- NOTE | 2021-04-28 10:25 | CASEMGMT ---
ELIE [facility] Readmission Review Note: Index Admission: 04/09 - 04/13/21 for Atrial Flutter w[facility] Afib [facility] Pt with hx of Atrial flutter, BPH, chronic pain, HTN, depression, fibromyalgia, morbid obesity, neuropathy, rhuematic fever and Vit B12 deficiency was admitted from home with atrial flutter w/RVR after falling out of his w/c at home. Pt remained in atrial flutter with a controlled ventricular rate in the 80's upon discharge. 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 Plan at time of discharge was for pt to be referred to a eletrophysiology at a tertiary center for consideration of EPS/RFA. Call has been placed to [facility] for determination of current status with pt. Will continue to follow and assist as needs are identified. Zack Ruffin RN CM
[2021-04-28] MEDS: hydroCHLOROthiazide 25 MG Tablet PO (10:34)
[2021-04-28] MEDS: Metoprolol Tartrate 50 MG Tablet 150 MG PO ×2 (10:34→21:58)
[2021-04-28] MEDS: Pregabalin 75 MG Capsule 150 MG PO ×2 (10:34→21:54)
[2021-04-28] MEDS: Digoxin 250 MCG/ML Ampul IV (10:35)
[2021-04-28] MEDS: Cholecalciferol (VIT D3) 25 MCG TABLET (1,000 UNITS) 50 MCG PO (10:35)
[2021-04-28] MEDS: 0.9% Saline Lock 10 ML Syringe IV (10:35)
[2021-04-28] MEDS: Famotidine 20 MG Tablet PO ×2 (11:54→21:48)
[2021-04-28] MEDS: Losartan Potassium 100 MG Tablet PO (11:54)
--- NOTE | 2021-04-28 14:55 | PCM.HOSP.N ---
Hospitalist Note Mr. Dean is a 60-year-old white male with multiple medical problems who presented to the emergency department early this morning with palpitations. The patient states that the entire day prior to admission he was having palpitation and some chest pressure and had noted his heart rate to be in the 140s. The patient has had persistent issues with atrial fibrillation with RVR and had a recent admission from 04/09/2021 till 04/13/2021 for the same problem. Cardiology has evaluated the patient and he is well-known to their service. Historically his A. fib has been difficult to control with regards to rate. He unfortunately did have an interruption in his anticoagulation therapy approximately 2 weeks ago. I will defer to cardiology for continued advice on his rate control.
--- NOTE | 2021-04-28 15:00 | PCM.PN.HOSP ---
Objective Data Objective Data Vital Signs: Vital Signs Temp Pulse Resp BP Pulse Ox 98.5 F 104 H 14 149/111 H 97 04/28/21 11:05 04/28/21 13:29 04/28/21 11:05 04/28/21 11:05 04/28/21 11:05 Oxygen Flow Rate (L/min) 2 Oxygen Delivery Method Nasal Cannula Weight: 187.2 kg Body Mass Index (BMI) 52.9 Intake & Output: Intake and Output for Last 24 Hours 04/26/21 04/27/21 04/28/21 23:59 23:59 23:59 Intake Total 120 / 120 Output Total 625 / 625 Balance -505 / -505 Lab / Micro Data Result Diagrams: 04/28/21 05:50 04/28/21 05:50 Labs: Laboratory Results - last 24 hr 04/27/21 19:45: WBC 7.9, RBC 4.69, Hgb 15.0, Hct 44.5, MCV 94.9 H, MCH 32.0, MCHC 33.7, RDW Std Deviation 53.4 H, RDW Coeff of Tasha 15.4 H, Plt Count 291, MPV 10.2, Immature Gran % (Auto) 0.300, Neut % (Auto) 70.9 H, Lymph % (Auto) 18.7 L, [place] % (Auto) 6.6, Eos % (Auto) 3.0, Baso % (Auto) 0.5, Absolute Neuts (auto) 5.6, Absolute Lymphs (auto) 1.47, Nucleated RBC % 0 04/27/21 19:45: Sodium 139, Potassium 4.4, Chloride 105, Carbon Dioxide 27.0, Anion Gap 7, BUN 8, Creatinine 0.83, Estim Creat Clear Calc 102.06, Est GFR (MDRD) Af Amer 122, Est GFR (MDRD) Non-Af 101, BUN/Creatinine Ratio 9.7 L, Glucose 120 H, Calcium 7.7 L, Troponin I High Sens 30 04/28/21 05:50: WBC 7.9, RBC 4.67, Hgb 15.1, Hct 45.4, MCV 97.2 H, MCH 32.3 H, MCHC 33.3, RDW Std Deviation 55.2 H, RDW Coeff of Tasha 15.5 H, Plt Count 316, MPV 11.6, Immature Gran % (Auto) 0.400, Neut % (Auto) 72.6 H, Lymph % (Auto) 17.5 L, [place] % (Auto) 6.2, Eos % (Auto) 2.8, Baso % (Auto) 0.5, Absolute Neuts (auto) 5.8, Absolute Lymphs (auto) 1.39, Nucleated RBC % 0.4 04/28/21 05:50: Sodium 139, Potassium 5.1, Chloride 104, Carbon Dioxide 26.0, Anion Gap 9, BUN 8, Creatinine 0.81, Estim Creat Clear Calc 114.17, Est GFR (MDRD) Af Amer 125, Est GFR (MDRD) Non-Af 103, BUN/Creatinine Ratio 9.8 L, Glucose 111 H, Calcium 7.8 L Micro: Microbiology 04/27/21 20:37 Nasal Secretion SARS-CoV-2 Antigen (Rapid) - Final Radiography Diagnostic Testing: Radiology Impression Chest X-Ray 04/27/21 19:59 IMPRESSION: Normal x-ray examination of the chest. Electronically Signed: Jaelesa Muro MD at 21:21 EDT Tel , Service support ,
[2021-04-28] MEDS: Tamsulosin HCl 0.4 MG Capsule PO (17:47)
[2021-04-28] MEDS: Allopurinol 100 MG Tablet PO (17:47)
--- NOTE | 2021-04-28 18:17 | EKG12_ITS ---
Test Reason : CP Blood Pressure : / mmHG Vent. Rate : 087 BPM Atrial Rate : 286 BPM P-R Int : 000 ms QRS Dur : 090 ms QT Int : 370 ms P-R-T Axes : 000 -57 -13 degrees QTc Int : 445 ms Atrial flutter with variable A-V block Left axis deviation Low voltage QRS Inferior infarct , age undetermined , cannot be excluded Abnormal ECG Confirmed by JEREMIAS BLOOM, CORAZON ([id number]), editorial director MEHUL JIMENEZ ([id number]) on 05/03/2021 1:08:59 PM Referred By: MARELY Confirmed By:CORAZON MCDOWELL MD
[2021-04-28 19:21] LABS: Troponin-I HS 35 pg/mL (3.0-78.0)
[2021-04-28 21:15] LABS: Troponin-I HS 33 pg/mL (3.0-78.0)
[2021-04-28] MEDS: Calcium Carbonate 500 MG Tablet 1000 MG PO (21:45)
[2021-04-28] MEDS: Doxepin Hcl 25 MG Capsule PO (21:48)
[2021-04-28] MEDS: Acetaminophen 325 MG Tablet 650 MG PO (21:54)
[2021-04-28] MEDS: MELATONIN 3 MG TABLET PO (21:54)
[2021-04-28] MEDS: clonazePAM 1 MG Tablet PO (21:55)
[2021-04-28] MEDS: cycloBENZAPRine HCl 10 MG Tablet PO (21:55)
[2021-04-29] VITALS (14 sets, daily range): BP systolic 125–146; BP diastolic 85–100; PULSE 70–91; RESP 18; TEMP 36.4–37.1; O2SAT 94–97
[2021-04-29 01:41] LABS: Troponin-I HS 30 pg/mL (3.0-78.0)
--- NOTE | 2021-04-29 07:40 | EKG12_ITS ---
Test Reason : CP Blood Pressure : / mmHG Vent. Rate : 092 BPM Atrial Rate : 288 BPM P-R Int : 000 ms QRS Dur : 080 ms QT Int : 350 ms P-R-T Axes : 000 -54 038 degrees QTc Int : 432 ms Atrial flutter with variable A-V block Left axis deviation Low voltage QRS Inferior infarct , age undetermined , cannot be excluded Abnormal ECG Confirmed by JEREMIAS BLOOM, CORAZON ([id number]), communications editor MEHUL JIMENEZ ([id number]) on 05/03/2021 1:11:28 PM Referred By: MARELY Confirmed By:CORAZON MCDOWELL MD
[2021-04-29] MEDS: Acetaminophen 325 MG Tablet 650 MG PO (07:47)
[2021-04-29] MEDS: Calcium Carbonate 500 MG Tablet 1000 MG PO (07:48)
[2021-04-29 07:49] LABS: Absolute Lymphocyte Count 1.45 X10^3/uL (0.83-4.51); Absolute Neutrophil Count 4.1 X10^3/uL (2.0-7.7); Basophil# 0.03 X10^3/uL; Basophil% 0.5 % (0-1); Eosinophil# 0.18 X10^3/uL; Eosinophils% 2.9 % (0-5); Hematocrit 43.4 % (40-54); Hemoglobin 14.2 g/dL (13.0-16.5); Lymphocyte # 1.45 X10^3/ul (0.83-4.51); Lymphocyte % 23.5 % (19-41); Mean Corp Hgb Conc 32.7 g/dL (32-36); Mean Corpuscular Hgb 31.8 pg (27.0-32.0); Mean Corpuscular Volume 97.3 fL (80-94); Mean Platelet Vol. 10.6 fl (6.2-12.0); Monocyte# 0.46 X10^3/uL; Monocyte% 7.4 % (0-10); NRBC Flagged by Analyzer 0 % (0-5); Neutrophil # 4.05 X10^3/uL (2.7-7.7); Neutrophil % 65.5 % (47-70); Platelet Count 207 K/mm3 (150-450); RBC Distribution Width CV 14.7 % (11.6-14.6); RBC Distribution Width SD 53.4 fl (35.1-43.9); Red Blood Count 4.46 M/mm3 (4.6-6.2); White Blood Count 6.2 K/mm3 (4.4-11.0)
[2021-04-29 08:22] LABS: Anion Gap 4 (5-15); BUN 8 mg/dL (7-18); BUN/Creat Ratio 11.6 RATIO (10-20); Calcium,Total 7.9 mg/dL (8.5-10.1); Chloride 105 mmol/L (98-107); Creatinine, Serum 0.69 mg/dL (0.70-1.30); EST Glomerular Filtration Rate 125 mL/min (>60); Est Glom Filt Rate - Afr Amer 151 mL/min (>60); Estimated Creatinine Clearance 134.02 ml/min; Glucose 116 mg/dL (74-106); Potassium 3.7 mmol/L (3.5-5.1); Sodium Level 139 mmol/L (136-145)
[2021-04-29] MEDS: Pregabalin 75 MG Capsule 150 MG PO ×2 (09:18→21:16)
[2021-04-29] MEDS: Famotidine 20 MG Tablet PO ×2 (09:22→21:14)
[2021-04-29] MEDS: clonazePAM 1 MG Tablet PO ×2 (09:22→21:16)
[2021-04-29] MEDS: Metoprolol Tartrate 50 MG Tablet 150 MG PO ×2 (09:22→21:13)
[2021-04-29] MEDS: Allopurinol 100 MG Tablet PO (09:22)
[2021-04-29] MEDS: hydroCHLOROthiazide 25 MG Tablet PO (09:22)
[2021-04-29] MEDS: Cholecalciferol (VIT D3) 25 MCG TABLET (1,000 UNITS) 50 MCG PO (09:22)
[2021-04-29] MEDS: Losartan Potassium 100 MG Tablet PO (09:22)
--- NOTE | 2021-04-29 09:23 | PN.CARD_ITS ---
Subjective Subjective The patient is awake and alert. He has had waxing and waning chest discomfort which has raise concerns of cardiovascular versus gastrointestinal. He has experienced palpitations which he believes is correlated with his now 2 episodes of nonsustained wide-complex tachycardia concerning for a nonsustained VT versus aberrancy. Objective Data Vital Signs: Vital Signs Temp Pulse Resp BP Pulse Ox 98.4 F 70 18 146/100 H 94 04/29/21 09:16 04/29/21 09:22 04/29/21 09:16 04/29/21 09:16 04/29/21 09:16 Oxygen Flow Rate (L/min) 2 Oxygen Delivery Method Room Air Weight: 412 lb 11.285 oz Body Mass Index (BMI) 52.9 Intake & Output: Intake and Output for Last 24 Hours 04/27/21 04/28/21 04/29/21 23:59 23:59 23:59 Intake Total 120 / 520 640 / 640 Output Total 1200 / 1800 1500 / 1500 Balance -1080 / -1280 -860 / -860 Lab / Micro Data Result Diagrams: 04/29/21 06:20 04/29/21 06:20 Labs: Laboratory Results - last 24 hr 04/28/21 18:45: Troponin I High Sens 35 04/28/21 20:44: Troponin I High Sens 33 04/29/21 00:55: Troponin I High Sens 30 04/29/21 06:20: Sodium 139, Potassium 3.7, Chloride 105, Carbon Dioxide 30.0, Anion Gap 4 L, BUN 8, Creatinine 0.69 L, Estim Creat Clear Calc 134.02, Est GFR (MDRD) Af Amer 151, Est GFR (MDRD) Non-Af 125, BUN/Creatinine Ratio 11.6, Glucose 116 H, Calcium 7.9 L 04/29/21 06:20: WBC 6.2, RBC 4.46 L, Hgb 14.2, Hct 43.4, MCV 97.3 H, MCH 31.8, MCHC 32.7, RDW Std Deviation 53.4 H, RDW Coeff of Tasha 14.7 H, Plt Count 207, MPV 10.6, Immature Gran % (Auto) 0.200, Neut % (Auto) 65.5, Lymph % (Auto) 23.5, [place] % (Auto) 7.4, Eos % (Auto) 2.9, Baso % (Auto) 0.5, Absolute Neuts (auto) 4.1, Absolute Lymphs (auto) 1.45, Nucleated RBC % 0 Cardiology Labs/Tests 04/29/21 06:20: Sodium 139, Potassium 3.7, Chloride 105, Carbon Dioxide 30.0, An ion Gap 4 L, BUN 8, Creatinine 0.69 L, Est GFR (MDRD) Af Amer 151, Est GFR (MDRD) Non-Af 125, BUN/Creatinine Ratio 11.6, Glucose 116 H, Calcium 7.9 L 04/29/21 06:20: WBC 6.2, RBC 4.46 L, Hgb 14.2, Hct 43.4, MCV 97.3 H, MCH 31.8, MCHC 32.7, Plt Count 207, MPV 10.6, Immature Gran % (Auto) 0.200, Neut % (Auto) 65.5, Lymph % (Auto) 23.5, [place] % (Auto) 7.4, Eos % (Auto) 2.9, Baso % (Auto) 0.5, Absolute Neuts (auto) 4.1, Nucleated RBC % 0 Rhythm: Atrial flutter; nonsustained wide-complex tachycardia with a differential diagnosis of nonsustained VT versus aberrancy EKG: Atrial flutter, left axis deviation, low voltage QRS, inferior ID of indeterminate age cannot be excluded Physical Exam Narrative This is a 60-year-old obese white male who appears to be resting reasonably comfortably at the moment in no acute distress. Const alert, oriented x3 and no apparent distress Orientation / Consciousness: awake HEENT normocephalic, head/scalp atraumatic and hearing grossly normal bilaterally Eyes PERRL, EOMs intact bilaterally and conjunctivae normal Neck supple and no JVD Resp normal respiratory effort and clear to auscultation bilaterally Cardio Rhythm: abnormal rhythm irregularly irregular Heart Sounds: S1 normal and S2 normal GI normal to inspection, nondistended, normoactive bowel sounds Extremity General Extremity: edema bilateral lower extremity Details: mild Neuro oriented x3 and moves all extremities Psych mental status grossly normal Assessment & Plan Assessment/Plan (1) Atrial fibrillation with rapid ventricular response: PLAN: The patient has a longstanding history of atrial fibrillation. He has been on rate control therapy and anticoagulant therapy. His atrial fibrillation has been challenging to control with his rate control therapy. He was to have future outpatient cardiovascular follow-up and referral to electrophysiology for consideration for EPS/RFA. In the meantime he has returned with his atrial fibrillation/flutter with RVR which may be exacerbated by noncardiac symptoms and/or issues. Over time his rate appears to be coming under better control. He did have a brief interruption of his anticoagulation therapy, per his own report, approximately 2 weeks ago. Ideally he would need to continue anticoagulant therapy without interruption for a minimum of 3 to 4 weeks before attempting an elective synchronized biphasic DC cardioversion to minimize the risk of any thromboembolic formation/process. In the interim, if he would need to undergo synchronized biphasic DC cardioversion sooner than he may have to be considered for YOLIE guided procedures. However, based upon his longstanding atrial dysrhythmia, it may be challenging to regain and/or maintain sinus rhythm with medical therapy and synchronized biphasic DC cardioversion. Thus, the impetus for referral for an EP consultation/input was thought to be prudent. (2) Paroxysmal ventricular tachycardia: PLAN: He has been monitored. He has had 2 episodes of nonsustained wide- complex tachycardia raising concerns of nonsustained VT although aberrancy may not necessarily be excluded. Based upon his history, his symptoms, his other objective findings, this does raise concern as to whether or not there could be an underlying CAD component. Thus at the present time he will continue medical management as best as possible. However, it was felt prudent that he undergo further definitive evaluation of his coronary anatomy for any evidence of CAD that would lead to his symptoms and her objective findings. This would include diagnostic cardiac catheterization. The procedure and risk were discussed with him. He was agreeable to this approach. Thus his anticoagulant has been placed on hold in anticipation of this event which hopefully can occur tomorrow morning barring unforeseen changes. Depending upon the findings he may or may not need further noninvasive or invasive cardiovascular diagnostic studies/procedures above and beyond continuing medical management for his atrial dysrhythmias and his appearance of a cardiomyopathy, etc. (3) Cardiomyopathy: PLAN: Based upon his last echocardiogram his estimated LVEF appeared to be somewhat diminished. This was during his atrial fibrillation with RVR. In the past his overall LV wall motion systolic function was thought to be preserved. The present time he will continue medical management for his atrial fibrillation and for an underlying cardiomyopathy as deemed appropriate. (4) Chest pain, unspecified: PLAN: He has been having waxing and waning chest discomfort. There is been concerns as to whether this is cardiovascular versus gastrointestinal. Based upon the concerns of his wide-complex tachycardia this does raise concern as to whether or not he could have an underlying CAD component in addition to a possible gastrointestinal component. Thus he will undergo further evaluation care as noted above. (5) HTN (hypertension): PLAN: His blood pressure is elevated. He will need to continue medical adjustment. Addt'l Comments The above was discussed with him and he was agreeable to this approach. Procedure Criteria Type of Procedure Procedure Type: Elective Elective Risks - COVID COVID Risk Discussion: The surgeon/proceduralist and patient have discussed in detail the risk of exposure to and/or potential harm posed by the COVID-19 virus with having a surgery/procedure at this time versus the risk of delaying the surgery/procedure. It is not possible to know either the risk of delaying the surgery or procedure or chance of getting an infection with perfect accuracy, but a joint decision was made between the patient and the surgeon/proceduralist to proceed at this time with the scheduled surgery/procedure as indicated on the consent form.
--- NOTE | 2021-04-29 09:35 | CASEMGMT ---
According to the [facility] website, the following are in-network tertiary facilities: [facility], [facility], [facility], [facility], [facility], [facility], [facility], [place], [facility], and . Marie DELGAIDLLO CM
[2021-04-29] MEDS: Aspirin 325 MG Tablet PO (10:35)
--- NOTE | 2021-04-29 13:43 | PN.HOSP_ITS ---
Documented by User: Carey John NP, SENIOR AB[employer] DEVELOPER-C 04/29/21 13:49 Subjective Subjective Patient seen and examined. Reports chest pain earlier this morning which has since resolved. Currently resting comfortably in bed. Plan for heart cath in a.m. Objective Data Objective Data Vital Signs: Vital Signs Temp Pulse Resp BP Pulse Ox 98.4 F 72 18 146/100 H 97 04/29/21 09:16 04/29/21 12:31 04/29/21 09:16 04/29/21 09:16 04/29/21 11:01 Oxygen Flow Rate (L/min) 1 Oxygen Delivery Method Room Air Weight: 412 lb 11.285 oz Body Mass Index (BMI) 52.9 Intake & Output: Intake and Output for Last 24 Hours 04/27/21 04/28/21 04/29/21 23:59 23:59 23:59 Intake Total 120 / 520 1040 / 1040 Output Total 1200 / 1800 2100 / 2100 Balance -1080 / -1280 -1060 / -1060 Lab / Micro Data Result Diagrams: 04/29/21 06:20 04/29/21 06:20 Labs: Laboratory Results - last 24 hr 04/28/21 18:45: Troponin I High Sens 35 04/28/21 20:44: Troponin I High Sens 33 04/29/21 00:55: Troponin I High Sens 30 04/29/21 06:20: Sodium 139, Potassium 3.7, Chloride 105, Carbon Dioxide 30.0, Anion Gap 4 L, BUN 8, Creatinine 0.69 L, Estim Creat Clear Calc 134.02, Est GFR (MDRD) Af Amer 151, Est GFR (MDRD) Non-Af 125, BUN/Creatinine Ratio 11.6, Glucose 116 H, Calcium 7.9 L 04/29/21 06:20: WBC 6.2, RBC 4.46 L, Hgb 14.2, Hct 43.4, MCV 97.3 H, MCH 31.8, MCHC 32.7, RDW Std Deviation 53.4 H, RDW Coeff of Tasha 14.7 H, Plt Count 207, MPV 10.6, Immature Gran % (Auto) 0.200, Neut % (Auto) 65.5, Lymph % (Auto) 23.5, [place] % (Auto) 7.4, Eos % (Auto) 2.9, Baso % (Auto) 0.5, Absolute Neuts (auto) 4.1, Absolute Lymphs (auto) 1.45, Nucleated RBC % 0 Micro: Microbiology 04/27/21 20:37 Nasal Secretion SARS-CoV-2 Antigen (Rapid) - Final Physical Exam Const alert, oriented x3 and no apparent distress Orientation / Consciousness: awake, oriented to person, oriented to place and oriented to time Nutritional Appearance: obese HEENT normocephalic and moist oral mucous membranes Eyes PERRL, EOMs intact bilaterally and conjunctivae normal Neck no lymphadenopathy Resp normal respiratory effort and clear to auscultation bilaterally Cardio Cardio Narrative: Atrial fibrillation Peripheral Pulses: pulses 2+ throughout GI normal to inspection, nondistended, normoactive bowel sounds, non-tender and non-distended Extremity normal to inspection General Extremity: edema bilateral lower extremity Details: moderate Skin no rashes or lesions noted Lesions: no lesions Rashes: no rashes Trauma: no lacerations or abrasions Neuro CN's II-XII intact bilaterally, no focal motor deficits, no sensory deficits noted and deep tendon reflexes 2+ bilaterally Psych mental status grossly normal and affect normal Assessment & Plan Assessment/Plan (1) Chest pain, unspecified: (2) Paroxysmal ventricular tachycardia: (3) Atrial fibrillation with rapid ventricular response: PLAN: 1. Chest pain-troponin negative. EKG without ST-T changes. Cardiology following. Plan for heart cath in a.m. 2. Atrial fibrillation with RVR/paroxysmal ventricular tachycardia-cardiology following. Xarelto on hold. Continue rate control adjustment per cardiology. 3. Cardiomyopathy-echocardiogram demonstrated an EF of 40 to 45%. 4. Hypertension-stable, continue current regimen. 5. Super morbid obesity-encouraged diet and lifestyle modifications. Dietitian consult. 6. Anxiety/depression- continue home medications. 7. BPH-on Flomax. DVT prophylaxis-Xarelto on hold This patient was seen by BORIS Figueroa under the supervision of Dr. Sherman. Documented by User: Dr. Soledad Sherman DO 04/29/21 16:13 Subjective Subjective This patient was seen in conjunction with Carey John NP. The following represents my independent history and physical examination. Please see below for any addendum to the above. Patient reports that he is feeling better than he did last night. He had chest pain early last evening after eating dinner for which an EKG was done that showe d no changes and cardiac enzymes were cycled which remained negative. He states he has intermittent sensations but nothing like he had last night. Objective Data Lab / Micro Data Result Diagrams: 04/29/21 06:20 04/29/21 06:20 Physical Exam Const alert, oriented x3 and no apparent distress Constitutional Narrative: Morbidly obese white male lying in bed, able to lie flat at this time, nontoxic, appears comfortable, nursing at bedside Exam Limitations: no limitations Nutritional Appearance: morbidly obese HEENT head/scalp atraumatic and moist oral mucous membranes HEENT Narrative: Mallampati 4, no thrush Head and Scalp: normocephalic Resp normal respiratory effort, no retractions, no use of accessory muscles and clear to auscultation bilaterally Resp Narrative: Distant but no adventitious sounds noted Auscultation: Negative for crackles, rales, rhonchi or wheezes Cardio regular rate, S1 normal heart sound, S2 normal heart sound, no murmurs, no rub, no gallops, no clicks and no JVD Cardio Narrative: Irregular rhythm GI normal to inspection, nondistended, normoactive bowel sounds, soft to palpation, non-tender and non-distended Extremity Extremity Narrative: Trace bilateral lower extremity edema, no cyanosis or clubbing Peripheral Pulses: Yes pulses 2+ throughout Neuro oriented x3 and moves all extremities Sensorium / Orientation: awake and alert Speech: speech normal Assessment & Plan Assessment/Plan (1) Chest pain, unspecified: (2) Paroxysmal ventricular tachycardia: (3) Atrial fibrillation with rapid ventricular response: (4) Cardiomyopathy: PLAN: Assessment: Chest pain A. fib with RVR Cardiomyopathy-etiology undetermined at this time Hypertension Gout Chronic pain Neuropathy BPH Anxiety Depression Plan: -Despite pain EKG remained stable and cardiac enzymes are negative -Plan for cardiac catheterization tomorrow April 30, 2021 -10a inhibitor on hold -Rate control per cardiology -Heart rates remain controlled at this time on current medications -Cardiology following appreciate input Charges/Coding Visit Charges Inpatient E&M: 70576 Subs Hosp L2
[2021-04-29] MEDS: Tamsulosin HCl 0.4 MG Capsule PO (16:16)
[2021-04-29] MEDS: Doxepin Hcl 25 MG Capsule PO (21:14)
[2021-04-29] MEDS: cycloBENZAPRine HCl 10 MG Tablet PO (21:22)
[2021-04-30 02:59] VITALS: BP 115/74; PULSE 72; RESP 16; TEMP 35.6; O2SAT 94
[2021-04-30 03:00] VITALS: PULSE 73
--- NOTE | 2021-04-30 05:00 | EKG12_ITS ---
Test Reason : AM EKG Blood Pressure : / mmHG Vent. Rate : 077 BPM Atrial Rate : 277 BPM P-R Int : 000 ms QRS Dur : 098 ms QT Int : 410 ms P-R-T Axes : 000 -62 029 degrees QTc Int : 463 ms Atrial flutter with variable A-V block Left axis deviation Inferior infarct , age undetermined Abnormal ECG When compared with ECG of 29-APR-2021 07:40, MANUAL COMPARISON REQUIRED, DATA IS UNCONFIRMED Confirmed by DESI BLOOM, ИВАН ([id number]), editorial clerk MEHUL JIMENEZ ([id number]) on 05/04/2021 10:36:15 AM Referred By: MARELY Confirmed By:ИВАН WEEKS MD
[2021-04-30 06:34] LABS: Absolute Lymphocyte Count 1.66 X10^3/uL (0.83-4.51); Absolute Neutrophil Count 4.4 X10^3/uL (2.0-7.7); Basophil# 0.02 X10^3/uL; Basophil% 0.3 % (0-1); Eosinophil# 0.26 X10^3/uL; Eosinophils% 3.8 % (0-5); Hematocrit 41.5 % (40-54); Hemoglobin 13.7 g/dL (13.0-16.5); Lymphocyte # 1.66 X10^3/ul (0.83-4.51); Lymphocyte % 24.1 % (19-41); Mean Corpuscular Hgb 32.2 pg (27.0-32.0); Mean Corpuscular Volume 97.4 fL (80-94); Mean Platelet Vol. 10.2 fl (6.2-12.0); Monocyte% 7.2 % (0-10); NRBC Flagged by Analyzer 0 % (0-5); Neutrophil # 4.43 X10^3/uL (2.7-7.7); Neutrophil % 64.2 % (47-70); Platelet Count 186 K/mm3 (150-450); RBC Distribution Width CV 14.8 % (11.6-14.6); RBC Distribution Width SD 53.2 fl (35.1-43.9); Red Blood Count 4.26 M/mm3 (4.6-6.2); White Blood Count 6.9 K/mm3 (4.4-11.0)
[2021-04-30 06:40] VITALS: BP 136/89; PULSE 75; RESP 18; TEMP 35.8; O2SAT 94
[2021-04-30] MEDS: 0.9% Saline Lock 10 ML Syringe IV (06:43)
[2021-04-30 06:44] LABS: International Normalized Ratio 1.2; Prothrombin Time (Protime)PT. 14.5 SECONDS (11.7-14.9)
[2021-04-30] MEDS: 0.9% Normal Saline 1,000 ML 15 ML IV (06:44)
[2021-04-30] MEDS: Aspirin 81 MG TAB.CHEW PO (06:44)
[2021-04-30 06:45] VITALS: PULSE 73
[2021-04-30] MEDS: Metoprolol Tartrate 50 MG Tablet 150 MG PO (06:45)
[2021-04-30] MEDS: Losartan Potassium 100 MG Tablet PO (06:46)
[2021-04-30 07:00] VITALS: PULSE 72
[2021-04-30 07:06] LABS: AST(SGOT) 16 U/L (15-37); Alanine Aminotransfer ALT/SGPT 17 U/L (16-61); Albumin, Serum 2.1 g/dL (3.2-5.0); Alkaline Phosphatase 140 U/L (45-117); Anion Gap 5 (5-15); BUN 12 mg/dL (7-18); BUN/Creat Ratio 17.4 RATIO (10-20); Bilirubin, Direct 0.15 mg/dL (0.00-0.30); Calcium,Total 7.8 mg/dL (8.5-10.1); Chloride 104 mmol/L (98-107); Cholesterol 119 mg/dL (200); Creatinine, Serum 0.69 mg/dL (0.70-1.30); EST Glomerular Filtration Rate 124 mL/min (>60); Est Glom Filt Rate - Afr Amer 150 mL/min (>60); Estimated Creatinine Clearance 134.02 ml/min; Globulin 4.1 g/dL (2.2-4.2); Glucose 101 mg/dL (74-106); High Density Lipoprotein 40 mg/dL; Potassium 3.5 mmol/L (3.5-5.1); Protein, Total 6.2 g/dL (6.4-8.2); Sodium Level 139 mmol/L (136-145); Triglycerides 107 mg/dL; Very Low Density Lipoprotein 21 mg/dL (5-40)
--- NOTE | 2021-04-30 08:46 | PCM.PN.CARD ---
Subjective Subjective The patient has done post diagnostic cardiac catheterization. He has no new acute complaints. Objective Data Vital Signs: Vital Signs Temp Pulse Resp BP Pulse Ox 96.5 F L 72 18 136/89 H 94 04/30/21 06:40 04/30/21 07:00 04/30/21 06:40 04/30/21 06:40 04/30/21 06:40 Oxygen Flow Rate (L/min) 2 Oxygen Delivery Method Room Air Weight: 412 lb 11.285 oz Body Mass Index (BMI) 52.9 Intake & Output: Intake and Output for Last 24 Hours 04/28/21 04/29/21 04/30/21 23:59 23:59 23:59 Intake Total 120 / 520 1720 / 1720 Output Total 1200 / 1800 3450 / 3450 Balance -1080 / -1280 -1730 / -1730 Lab / Micro Data Result Diagrams: 04/30/21 06:20 04/30/21 06:20 Labs: Laboratory Results - last 24 hr 04/29/21 06:20: Magnesium 2.0 04/30/21 06:20: Sodium 139, Potassium 3.5, Chloride 104, Carbon Dioxide 30.0, Anion Gap 5, BUN 12, Creatinine 0.69 L, Estim Creat Clear Calc 134.02, Est GFR (MDRD) Af Amer 150, Est GFR (MDRD) Non-Af 124, BUN/Creatinine Ratio 17.4, Glucose 101, Calcium 7.8 L, Total Bilirubin 0.40, Direct Bilirubin 0.15, AST 16, ALT 17, Alkaline Phosphatase 140 H, Total Protein 6.2 L, Albumin 2.1 L, Globulin 4.1, Triglycerides 107, Cholesterol 119, LDL Cholesterol 58, VLDL Cholesterol 21, HDL Cholesterol 40 04/30/21 06:20: WBC 6.9, RBC 4.26 L, Hgb 13.7, Hct 41.5, MCV 97.4 H, MCH 32.2 H, MCHC 33.0, RDW Std Deviation 53.2 H, RDW Coeff of Tasha 14.8 H, Plt Count 186, MPV 10.2, Immature Gran % (Auto) 0.400, Neut % (Auto) 64.2, Lymph % (Auto) 24.1, [place] % (Auto) 7.2, Eos % (Auto) 3.8, Baso % (Auto) 0.3, Absolute Neuts (auto) 4.4, Absolute Lymphs (auto) 1.66, Nucleated RBC % 0 04/30/21 06:20: PT 14.5, INR 1.2 Cardiology Labs/Tests 04/29/21 06:20: Magnesium 2.0 04/30/21 06:20: Sodium 139, Potassium 3.5, Chloride 104, Carbon Dioxide 30.0, Anion Gap 5, BUN 12, Creatinine 0.69 L, Est GFR (MDRD) Af Amer 150, Est GFR (MDRD) Non-Af 124, BUN/Creatinine Ratio 17.4, Glucose 101, Calcium 7.8 L, Total Bilirubin 0.40, Direct Bilirubin 0.15, Triglycerides 107, Cholesterol 119, LDL Cholesterol 58, VLDL Cholesterol 21, HDL Cholesterol 40 04/30/21 06:20: WBC 6.9, RBC 4.26 L, Hgb 13.7, Hct 41.5, MCV 97.4 H, MCH 32.2 H, MCHC 33.0, Plt Count 186, MPV 10.2, Immature Gran % (Auto) 0.400, Neut % (Auto) 64.2, Lymph % (Auto) 24.1, [place] % (Auto) 7.2, Eos % (Auto) 3.8, Baso % (Auto) 0.3, Absolute Neuts (auto) 4.4, Nucleated RBC % 0 04/30/21 06:20: PT 14.5, INR 1.2 Rhythm: Atrial flutter Physical Exam Narrative This is a 60-year-old obese white male who appears to be resting reasonably comfortably at the moment in no acute distress. Const alert, oriented x3 and no apparent distress Orientation / Consciousness: awake HEENT normocephalic, head/scalp atraumatic and hearing grossly normal bilaterally Eyes PERRL, EOMs intact bilaterally and conjunctivae normal Neck supple and no JVD Resp normal respiratory effort and clear to auscultation bilaterally Cardio Rhythm: abnormal rhythm irregularly irregular Heart Sounds: S1 normal and S2 normal GI normal to inspection, nondistended, normoactive bowel sounds Extremity General Extremity: edema bilateral lower extremity Details: mild Peripheral Pulses: Yes radial pulses present left 2+ Neuro oriented x3 and moves all extremities Psych mental status grossly normal Assessment & Plan Assessment/Plan (1) Atrial fibrillation with rapid ventricular response: PLAN: The patient has a longstanding history of atrial fibrillation. He has been on rate control therapy and anticoagulant therapy. His atrial fibrillation/flutter has been challenging to control with his rate control therapy. He was to have future outpatient cardiovascular follow-up and referral to electrophysiology for consideration for EPS/RFA. In the meantime he has returned with his atrial fibrillation/flutter with RVR which may be exacerbated by noncardiac symptoms and/or issues. Over time his rate appears to be coming under better control. At the present time he will continue medical therapy for rate control and anticoagulant therapy. Once he is adequately anticoagulated (a minimum of 4 weeks) he can be considered for an attempt at synchronized biphasic DC cardioversion. (2) Paroxysmal ventricular tachycardia: PLAN: He has been monitored. He has had episodes of nonsustained wide-complex tachycardia raising concerns of nonsustained VT although aberrancy may not necessarily be excluded. Based upon his history, his symptoms, his other objective findings, this does raise concern as to whether or not there could be an underlying CAD component. Thus he has undergone further evaluation with diagnostic cardiac catheterization. His left ventricle demonstrated borderline low LV systolic function with an estimated LVEF 50%. His coronary arteries appear to be angiographically normal. At the present time he will continue medical management as deemed appropriate. (3) Cardiomyopathy: PLAN: Based upon his last echocardiogram his estimated LVEF appeared to be somewhat diminished. This was during his atrial fibrillation with RVR. Based upon his cardiac catheterization his LV systolic function appeared to be borderline low with an estimated LVEF of 50%. He will continue medical therapy. Hopefully in the future if he is able to regain sinus rhythm this may benefit his left ventricular systolic function. (4) Chest pain, unspecified: PLAN: Based upon his cardiac catheterization it does not appear his chest discomfort is coming from underlying CAD. Thus he should be considered for further noncardiac evaluation of his discomfort which may be gastrointestinal related. (5) HTN (hypertension): PLAN: His blood pressure is being monitored. His medications will be adjusted accordingly. Addt'l Comments The patient's case was discussed and reviewed with the patient. The aforementioned information was also conveyed to the [facility] staff. This note was generated using a voice recognition system and there may be incorrect words, spelling or punctuation that were not noted when reviewing the office note prior to saving.
--- NOTE | 2021-04-30 08:47 | CL.D_ITS ---
Patient Name: CARLIN SMITH Study Date: 04/30/2021 Performing: Renan Bruce MD Ht: 74.01 inches 188 cm : 1960 Wt: 412.26 lbs 187 kg Age: 60 Gender: male BSA: 2.96 PROCEDURE(S) PERFORMED FE66-ITD/COR/LV CLINICAL PROFILE AND INDICATIONS Indications: Worsening Angina, Cardiac Arrythmia, Cardiomyopathy Heart Failure: None Stress/Imaging Stress/Image Study Performed: No Angina Classification Anginal Classification w/in 2 Weeks: CCS IV CAD Presentations: Other: worsening angina; cardiac arrhythmia; cardiomyopathy CONCLUSIONS Elevated Left Ventricular End Diastolic Pressure Global LV systolic dysfunction- Mild LVEF: by LV gram 50 % Normal coronary arteries RECOMMENDATIONS Risk factor modification Medical therapy DESCRIPTION OF PROCEDURE The patient arrived to the procedure lab. The risks and benefits of the procedure as well as a full d escription of our services here and current unavailability of surgical backup were fully explained to the patient and/or their significant other prior to the catheterization. The Timeout was completed, verifying the correct patient and procedure. The patient's procedural site was prepped and draped in the usual fashion. Local anesthetic was given subcutaneously to left radial region with Lidocaine 2%. Using a modified Seldinger technique, arterial access was obtained via the left radial artery, a 6Fr sheath was inserted. Left Coronary Artery selective angiography was performed in multiple views usi ng a 5 Fr. JL4 catheter. Right Coronary Artery selective angiography was then performed in multiple v iews using a 5 Fr. JR 4 catheter. Left Ventriculography was performed in PIERCE projection using a 5 Fr. Pigtail catheter. LV to AO pullback pressures were then recorded.The arterial sheath was pulled and a TR Band was applied for hemostasis CORONARY ANGIOGRAPHY DOMINANCE: Right Dominant LEFT HEART ASSESSMENT Left Ventricular Ejection Fraction: by LV Gram 50 % Normal LV wall motion Elevated Left Ventricular End Diastolic Pressure LVEDP: 30 mmHg LEFT MAIN: Angiographically normal LEFT ANTERIOR DESCENDING ARTERY: Angiographically normal CIRCUMFLEX ARTERY: Angiographically normal RIGHT CORONARY ARTERY: Angiographically normal AORTIC ROOT: Angiographically normal COMPLICATIONS No Complications PROCEDURE MEDICATIONS Versed 1 mg IV Fentanyl 50 mcg IV Oxygen: 2 L/min via nasal cannula SUMMARY OF HEMODYNAMIC DATA Time AIR REST ECG 07:11:44 AO 142/109 (122) SA 07:58:23 LV 146/8, 34 08:14:43 LV 147/14, 30 08:14:50 LV 145/11, 31 08:15:55 LVp 150/13, 33 08:16:01 AOp 142/99 (116) 08:16:06 AO 143/102 (120) 08:16:09 Signed By Renan Bruce MD On 04/30/2021 08:45:54 Renan Bruce MD
[2021-04-30 11:10] VITALS: BP 92/81; PULSE 71; RESP 18; TEMP 36.9; O2SAT 95
[2021-04-30] MEDS: hydroCHLOROthiazide 25 MG Tablet PO (11:14)
[2021-04-30] MEDS: Cholecalciferol (VIT D3) 25 MCG TABLET (1,000 UNITS) 50 MCG PO (11:14)
[2021-04-30] MEDS: Famotidine 20 MG Tablet PO (11:14)
[2021-04-30] MEDS: Allopurinol 100 MG Tablet PO (11:14)
[2021-04-30] MEDS: Pregabalin 75 MG Capsule 150 MG PO (11:18)
[2021-04-30] MEDS: Acetaminophen 325 MG Tablet 650 MG PO (11:18)
[2021-04-30] MEDS: clonazePAM 1 MG Tablet PO (11:19)
--- NOTE | 2021-04-30 11:55 | DCINST_ITS ---
Discharge Instructions Follow Up Care Test Results: Test results from this visit will be discussed in further detail at your follow-up appointment, if applicable. Discharge Plan Admission Admit Date/Time: 04/28/21 00:16 Primary Reason for Your Visit: atrial fibrillation Attending Provider: Chapo Sims Primary Care Provider: Chalo Mclean Chi Consulting Providers: Renan Bruce Instructions Additional Instructions / Restrictions: Plan to discuss cardioversion/electrophysiology referral at cardiology follow- up. Discharge Orders/Prescriptions Prescriptions: Continued allopurinol 100 mg tablet 100 mg PO DAILY RF: 0 venlafaxine 50 mg tablet 100 mg PO TID RF: 0 lidocaine 5 % adhesive patch,medicated 1 patch TOPICAL DAILY PRN (Reason: Pain) RF: 0 doxepin 25 mg capsule 25 mg PO QHS RF: 0 famotidine 40 mg tablet 40 mg PO DAILY RF: 0 cyclobenzaprine 10 mg tablet 10 mg PO HS PRN (Reason: MUSCLE RELAXER) RF: 0 clonazepam 1 MG tablet 1 mg PO BID RF: 0 albuterol sulfate 1 INHALER inhaler 2 puff INHALATION Q6H PRN PRN (Reason: Sob &/Or Wheezing) RF: 0 cyanocobalamin (vitamin B-12) 1,000 MCG/ML solution 1,000 mcg IM Q30D RF: 0 cholecalciferol (vitamin D3) 2,000 UNIT capsule 2,000 unit PO DAILY RF: 0 Cbd Oil 1 dose PO DAILY PRN (Reason: Pain) RF: 0 acetaminophen 325 MG tablet 650 mg PO Q6H PRN PRN (Reason: Pain Score 1-3/Temp > 100.7 F) RF: 0 sulfamethoxazole-trimethoprim 400-80 mg tablet 1 tab PO DAILY RF: 0 valsartan-hydrochlorothiazide 160-12.5 mg Tablet 1 tab PO DAILY RF: 0 tamsulosin 0.4 mg Capsule 0.4 mg PO DAILY RF: 0 pregabalin [Lyrica] 150 mg Capsule 150 mg PO BID RF: 0 metoprolol tartrate 75 mg tablet 150 mg PO BID Qty: 120 RF: 1 rivaroxaban 20 mg tablet 20 mg PO DAILY Qty: 90 RF: 3 Referrals / Follow Up: Renan Bruce MD [STAFF PHYSICIAN] - See Referral Note (As scheduled 06/16/2021) Chalo Mclean Chi, MD [Primary Care Provider] - In 1 Week (Please call to setup an appointment. ) Disposition Disposition (needs filled in before D/C Order can be placed): Home, Self Care
--- NOTE | 2021-04-30 12:21 | CASEMGMT ---
[facility] order placed and call to [facility] to notify of pt discharge today. Clinicals to be faxed once D/C summ/instructions obtained. Marie DELGADILLO CM
--- NOTE | 2021-04-30 13:23 | DS.PCM_ITS ---
Documented by User: Carey John NP, [employer] ATTENDANT-C 04/30/21 13:30 Providers Date of Admission: 04/28/21 Date of Discharge: 04/30/21 Primary Care Physician: Dr. Chalo Mclean MD Consultations 04/28/21 00:29 Consult: Cardiology Routine Consulting Provider: Renan Bruce Reason for Consult: AFib with RVR EMERGENT Consult: No MD Notified: Yes Date Notified: 04/28/21 Time Notified: 00:16 Method of Notification: Verbal Reason For Visit: AFIB WITH RVR Diagnosis Discharge Diagnosis (1) Atrial fibrillation with rapid ventricular response: Status: Acute Code(s): I48.91 - Unspecified atrial fibrillation (2) Paroxysmal ventricular tachycardia: Status: Acute Code(s): I47.2 - Ventricular tachycardia (3) Cardiomyopathy: Status: Acute Code(s): I42.9 - Cardiomyopathy, unspecified (4) Chest pain, unspecified: Status: Acute Code(s): R07.9 - Chest pain, unspecified (5) HTN (hypertension): Status: Chronic Code(s): I10 - Essential (primary) hypertension Medications at Discharge Home Medications albuterol sulfate 2 puff INHALATION Q6H PRN PRN 03/30/18 clonazepam 1 mg PO BID 03/30/18 cyanocobalamin (vitamin B-12) 1,000 mcg IM Q30D 05/28/18 allopurinol 100 mg tablet 100 mg PO DAILY 03/28/19 venlafaxine 50 mg tablet 100 mg PO TID 03/28/19 Cbd Oil 1 dose PO DAILY PRN 07/30/19 cholecalciferol (vitamin D3) 2,000 unit PO DAILY 07/30/19 acetaminophen 650 mg PO Q6H PRN PRN tab 08/01/19 lidocaine 5 % topical patch 1 patch TOPICAL DAILY PRN 02/13/20 rivaroxaban 20 mg tablet 20 mg PO DAILY #90 tab 07/29/20 cyclobenzaprine 10 mg tablet 10 mg PO HS PRN tab 08/18/20 doxepin 25 mg capsule 25 mg PO QHS cap 08/18/20 famotidine 40 mg tablet 40 mg PO DAILY tab 08/18/20 sulfamethoxazole 400 mg-trimethoprim 80 mg tablet 1 tab PO DAILY tab 08/18/20 pregabalin [Lyrica] 150 mg PO BID 04/09/21 tamsulosin 0.4 mg PO DAILY 04/09/21 valsartan-hydrochlorothiazide 1 tab PO DAILY 04/09/21 metoprolol tartrate 150 mg PO BID #120 tab 04/13/21 Hospital Course Operations None Procedures Cardiac catheterization Summary of Care Provided Minutes Spent on Discharge: 35 Hospital Course: Patient is a 60-year-old male admitted 04/28/2021 due to chest pain, palpitations. 1. Chest pain, ACS ruled out-troponin negative. EKG without ST-T changes. Cardiology consulted during admission. Patient underwent heart cath which showed normal coronary arteries. Follow-up with cardiology in 1 to 2 weeks. Patient is on famotidine for reflux. Patient feels he may have costochondritis. Do suspect musculoskeletal in nature. Follow-up with PCP in 1 week. 2. Atrial fibrillation with RVR/paroxysmal ventricular tachycardia-continue metoprolol, Xarelto. Follow-up with cardiology for referral for EP versus potential cardioversion. Rate controlled. 3. Cardiomyopathy-echocardiogram demonstrated an EF of 40 to 45%. Continue follow-up with cardiology. Continue medical management. 4. Hypertension-stable, continue current regimen. 5. Super morbid obesity-encouraged diet and lifestyle modifications. 6. Anxiety/depression- continue home medications. 7. BPH-on Flomax. Physical Exam Const alert, oriented x3 and no apparent distress Orientation / Consciousness: awake, oriented to person, oriented to place and oriented to time Nutritional Appearance: obese HEENT normocephalic and moist oral mucous membranes Eyes PERRL, EOMs intact bilaterally and conjunctivae normal Neck no lymphadenopathy Resp normal respiratory effort and clear to auscultation bilaterally Cardio Cardio Narrative: Atrial fibrillation Peripheral Pulses: pulses 2+ throughout GI normal to inspection, nondistended, normoactive bowel sounds, non-tender and non-distended Extremity normal to inspection General Extremity: edema bilateral lower extremity Details: moderate Skin no rashes or lesions noted Lesions: no lesions Rashes: no rashes Trauma: no lacerations or abrasions Neuro CN's II-XII intact bilaterally, no focal motor deficits, no sensory deficits noted and deep tendon reflexes 2+ bilaterally Psych mental status grossly normal and affect normal Patient seen and examined prior to discharge. Physical assessment as noted abo ve. Patient is stable for discharge with follow up recommendations as noted above. This patient was seen by BORIS Figueroa under the supervision of Dr. Sims. Weight / BMI Weight Weight: 412 lb 11.285 oz Body Mass Index (BMI) 52.9 ABG / Lab / Microbiology Data Result Diagrams: 04/30/21 06:20 04/30/21 06:20 Laboratory: Laboratory Results - last 24 hr 04/29/21 06:20: Magnesium 2.0 04/30/21 06:20: Sodium 139, Potassium 3.5, Chloride 104, Carbon Dioxide 30.0, Anion Gap 5, BUN 12, Creatinine 0.69 L, Estim Creat Clear Calc 134.02, Est GFR (MDRD) Af Amer 150, Est GFR (MDRD) Non-Af 124, BUN/Creatinine Ratio 17.4, Glucose 101, Calcium 7.8 L, Total Bilirubin 0.40, Direct Bilirubin 0.15, AST 16, ALT 17, Alkaline Phosphatase 140 H, Total Protein 6.2 L, Albumin 2.1 L, Globulin 4.1, Triglycerides 107, Cholesterol 119, LDL Cholesterol 58, VLDL Cholesterol 21, HDL Cholesterol 40 04/30/21 06:20: WBC 6.9, RBC 4.26 L, Hgb 13.7, Hct 41.5, MCV 97.4 H, MCH 32.2 H, MCHC 33.0, RDW Std Deviation 53.2 H, RDW Coeff of Tasha 14.8 H, Plt Count 186, MPV 10.2, Immature Gran % (Auto) 0.400, Neut % (Auto) 64.2, Lymph % (Auto) 24.1, [place] % (Auto) 7.2, Eos % (Auto) 3.8, Baso % (Auto) 0.3, Absolute Neuts (auto) 4.4, Absolute Lymphs (auto) 1.66, Nucleated RBC % 0 04/30/21 06:20: PT 14.5, INR 1.2 Microbiology: Microbiology 04/27/21 20:37 Nasal Secretion SARS-CoV-2 Antigen (Rapid) - Final Meaningful Use Info Meaningful Use Diagnoses (Choose all that apply): None applicable Discharge Plan Admission Admit Date/Time: 04/28/21 00:16 Primary Reason for Your Visit: atrial fibrillation Attending Provider: Chapo Sims Primary Care Provider: Chalo Mclean Chi Consulting Providers: Renan Bruce Instructions Additional Instructions / Restrictions: Plan to discuss cardioversion/electrophysiology referral at cardiology follow- up. Discharge Orders/Prescriptions Prescriptions: Continued allopurinol 100 mg tablet 100 mg PO DAILY RF: 0 venlafaxine 50 mg tablet 100 mg PO TID RF: 0 lidocaine 5 % adhesive patch,medicated 1 patch TOPICAL DAILY PRN (Reason: Pain) RF: 0 doxepin 25 mg capsule 25 mg PO QHS RF: 0 famotidine 40 mg tablet 40 mg PO DAILY RF: 0 cyclobenzaprine 10 mg tablet 10 mg PO HS PRN (Reason: MUSCLE RELAXER) RF: 0 clonazepam 1 MG tablet 1 mg PO BID RF: 0 albuterol sulfate 1 INHALER inhaler 2 puff INHALATION Q6H PRN PRN (Reason: Sob &/Or Wheezing) RF: 0 cyanocobalamin (vitamin B-12) 1,000 MCG/ML solution 1,000 mcg IM Q30D RF: 0 cholecalciferol (vitamin D3) 2,000 UNIT capsule 2,000 unit PO DAILY RF: 0 Cbd Oil 1 dose PO DAILY PRN (Reason: Pain) RF: 0 acetaminophen 325 MG tablet 650 mg PO Q6H PRN PRN (Reason: Pain Score 1-3/Temp > 100.7 F) RF: 0 sulfamethoxazole-trimethoprim 400-80 mg tablet 1 tab PO DAILY RF: 0 valsartan-hydrochlorothiazide 160-12.5 mg Tablet 1 tab PO DAILY RF: 0 tamsulosin 0.4 mg Capsule 0.4 mg PO DAILY RF: 0 pregabalin [Lyrica] 150 mg Capsule 150 mg PO BID RF: 0 metoprolol tartrate 75 mg tablet 150 mg PO BID Qty: 120 RF: 1 rivaroxaban 20 mg tablet 20 mg PO DAILY Qty: 90 RF: 3 Referrals / Follow Up: Renan Bruce MD [STAFF PHYSICIAN] - See Referral Note (As scheduled 06/16/2021) Chalo Mclean Chi, MD [Primary Care Provider] - In 1 Week (Please call to setup an appointment. ) Disposition Disposition (needs filled in before D/C Order can be placed): Home, Self Care Documented by User: Dr. Chapo Sims DO 04/30/21 21:09 Providers Date of Admission: 04/28/21 Reason For Visit: AFIB WITH RVR Medications at Discharge Home Medications albuterol sulfate 2 puff INHALATION Q6H PRN PRN 03/30/18 clonazepam 1 mg PO BID 03/30/18 cyanocobalamin (vitamin B-12) 1,000 mcg IM Q30D 05/28/18 allopurinol 100 mg tablet 100 mg PO DAILY 03/28/19 venlafaxine 50 mg tablet 100 mg PO TID 03/28/19 Cbd Oil 1 dose PO DAILY PRN 07/30/19 cholecalciferol (vitamin D3) 2,000 unit PO DAILY 07/30/19 acetaminophen 650 mg PO Q6H PRN PRN tab 08/01/19 lidocaine 5 % topical patch 1 patch TOPICAL DAILY PRN 02/13/20 rivaroxaban 20 mg tablet 20 mg PO DAILY #90 tab 07/29/20 cyclobenzaprine 10 mg tablet 10 mg PO HS PRN tab 08/18/20 doxepin 25 mg capsule 25 mg PO QHS cap 08/18/20 famotidine 40 mg tablet 40 mg PO DAILY tab 08/18/20 sulfamethoxazole 400 mg-trimethoprim 80 mg tablet 1 tab PO DAILY tab 08/18/20 pregabalin [Lyrica] 150 mg PO BID 04/09/21 tamsulosin 0.4 mg PO DAILY 04/09/21 valsartan-hydrochlorothiazide 1 tab PO DAILY 04/09/21 metoprolol tartrate 150 mg PO BID #120 tab 04/13/21 ABG / Lab / Microbiology Data Result Diagrams: 04/30/21 06:20 04/30/21 06:20 Discharge Plan Admission Admit Date/Time: 04/28/21 00:16 Primary Reason for Your Visit: atrial fibrillation Attending Provider: Chapo Sims Primary Care Provider: Chalo Mclean Chi Consulting Providers: Renan Bruce Instructions Additional Instructions / Restrictions: Plan to discuss cardioversion/electrophysiology referral at cardiology follow- up. Discharge Orders/Prescriptions Prescriptions: Continued allopurinol 100 mg tablet 100 mg PO DAILY RF: 0 venlafaxine 50 mg tablet 100 mg PO TID RF: 0 lidocaine 5 % adhesive patch,medicated 1 patch TOPICAL DAILY PRN (Reason: Pain) RF: 0 doxepin 25 mg capsule 25 mg PO QHS RF: 0 famotidine 40 mg tablet 40 mg PO DAILY RF: 0 cyclobenzaprine 10 mg tablet 10 mg PO HS PRN (Reason: MUSCLE RELAXER) RF: 0 clonazepam 1 MG tablet 1 mg PO BID RF: 0 albuterol sulfate 1 INHALER inhaler 2 puff INHALATION Q6H PRN PRN (Reason: Sob &/Or Wheezing) RF: 0 cyanocobalamin (vitamin B-12) 1,000 MCG/ML solution 1,000 mcg IM Q30D RF: 0 cholecalciferol (vitamin D3) 2,000 UNIT capsule 2,000 unit PO DAILY RF: 0 Cbd Oil 1 dose PO DAILY PRN (Reason: Pain) RF: 0 acetaminophen 325 MG tablet 650 mg PO Q6H PRN PRN (Reason: Pain Score 1-3/Temp > 100.7 F) RF: 0 sulfamethoxazole-trimethoprim 400-80 mg tablet 1 tab PO DAILY RF: 0 valsartan-hydrochlorothiazide 160-12.5 mg Tablet 1 tab PO DAILY RF: 0 tamsulosin 0.4 mg Capsule 0.4 mg PO DAILY RF: 0 pregabalin [Lyrica] 150 mg Capsule 150 mg PO BID RF: 0 metoprolol tartrate 75 mg tablet 150 mg PO BID Qty: 120 RF: 1 rivaroxaban 20 mg tablet 20 mg PO DAILY Qty: 90 RF: 3 Referrals / Follow Up: Renan Bruce MD [STAFF PHYSICIAN] - See Referral Note (As scheduled 06/16/2021) Chalo Mclean Chi, MD [Primary Care Provider] - In 1 Week (Please call to setup an appointment. ) Disposition Disposition (needs filled in before D/C Order can be placed): Home, Self Care Charges/Coding Addendum Addendum: Patient was seen and examined independently of Carey John today, the patient underwent a cardiac catheterization today which showed no evidence of occlusive coronary artery disease. On examination he appeared in good health and spirits. Vital signs as documented. Skin warm and dry and without overt rashes. Neck without JVD, neck was supple, trachea midline, thyroid was normal. Lungs clear bilaterally, normal air movement was noted. Heart exam notable for irregular rhythm, normal sounds and absence of murmurs, rubs or gallops. Abdomen unremarkable and without evide nce of organomegaly, masses, or abdominal aortic enlargement. Bowel sounds are present, abdomen is not distended. Extremities nonedematous, no cyanosis was noted, no clubbing was noted. Neuro: Cranial nerves II through XII are grossly intact, no focal motor deficits were noted, sensation to light touch and pinprick intact, motor exam 5/5 throughout. Psych: Patient is alert and oriented x3, he does not appear anxious or depressed, he does not appear agitated. Patient appears to be stable for discharge at this time, I feel the most likely explanation for the patient's chest discomfort is probably costochondritis or musculoskeletal chest pain along with atrial fibrillation with a rapid len tricular response. I have reviewed Carey John's discharge summary including her medical assessment and plan of care and endorse it. Visit Charges Inpatient E&M: [id number] Disch Hosp
--- NOTE | 2021-05-04 09:08 | CASEMGMT ---
ELIE SOSA Discharge Follow-up Phone Call: SALMA: Cheyanne Strata: 3 Call Date: 05/04/21 Discharge Date: 04/30/21 Time of Call: 902 Admitting Diagnosis: Afib RVR This RN SHEILA phoned pt in follow-up from discharge. Pt states he has not been feeling well since discharge and states his pulse has been all over the place. Pt states he has not contacted Dr. Bruce's ofice but states he has that on his list of things to do. Pt states his home health nurse will be coming this morning and his case reviewer from [facility] is also to call him this morning. Pt states his HR was over 100 yesterday but has not checked it yet this morning. Pt states he has been taking his medications but states they don't always work. States he is to follow-up with Dr. Bruce from possible EP studies and possible shock of his heart to get it back into rhythm. Pt states he has also spoken with [employer] yesterday regarding application for the Waiver program to get assistance via a [employer]. Pt states he has applied before but not been approved. Pt states he is hoping he gets approved this time. Pt denies any needs and feels his home health nurse and case reviewer will be able to assist him as needed. Zack Ruffin RN CM
== END 2021-04-30 14:32 | disposition home or self-care (01) | DRG 192 ==
LOC: ED 23:14 → PCU 04-28 00:35
PROVIDERS: Internal Medicine; Internal Medicine Cardiovascular Disease; Nurse Practitioner Family; Admitting Provider Family Medicine; Emergency Provider Emergency Medicine; PCP Family Medicine Geriatric Medicine; Visit Provider Internal Medicine
DX: I48.20 Chronic atrial fibrillation, unspecified (principal); I42.9 Cardiomyopathy, unspecified; I47.2 Ventricular tachycardia; E66.01 Morbid (severe) obesity due to excess calories; Z68.43 Body mass index [BMI] 50.0-59.9, adult; Z79.01 Long term (current) use of anticoagulants; N40.0 Benign prostatic hyperplasia without lower urinary tract symptoms; I10 Essential (primary) hypertension; M79.7 Fibromyalgia; Z86.718 Personal history of other venous thrombosis and embolism; Z79.899 Other long term (current) drug therapy; G89.29 Other chronic pain; Z98.84 Bariatric surgery status; F32.9 Major depressive disorder, single episode, unspecified; F41.9 Anxiety disorder, unspecified; M10.9 Gout, unspecified
CPT/HCPCS: 36415; 71045; 80048; 80061; 80076; 83735; 84484; 85025; 85610; 87426; 93005; 93458; 96374; 96375; 96376; 97110; 97162; 97166; 97530; 97535; 99152; 99153; 99218; 99285; C1894; J7030; Q9967; A4216; C1769; G0378

== ENCOUNTER → 2021-05-10 10:49 | Outpatient (CLI) | payer MEDICAID, SELFPAY ==
[2021-05-10 12:01] LABS: Absolute Lymphocyte Count 2.01 X10^3/uL (0.83-4.51); Basophil# 0.04 X10^3/uL; Basophil% 0.9 % (0-1); Eosinophil# 0.22 X10^3/uL; Eosinophils% 4.8 % (0-5); Hematocrit 43.6 % (40-54); Hemoglobin 14.3 g/dL (13.0-16.5); Lymphocyte # 2.01 X10^3/ul (0.83-4.51); Lymphocyte % 43.5 % (19-41); Mean Corp Hgb Conc 32.8 g/dL (32-36); Mean Corpuscular Hgb 31.7 pg (27.0-32.0); Mean Corpuscular Volume 96.7 fL (80-94); Mean Platelet Vol. 10.1 fl (6.2-12.0); Monocyte# 0.33 X10^3/uL; Monocyte% 7.1 % (0-10); NRBC Flagged by Analyzer 0 % (0-5); Neutrophil % 43.3 % (47-70); Platelet Count 251 K/mm3 (150-450); RBC Distribution Width CV 15.2 % (11.6-14.6); Red Blood Count 4.51 M/mm3 (4.6-6.2); White Blood Count 4.6 K/mm3 (4.4-11.0)
[2021-05-10 12:23] LABS: ALB/GLOB Ratio 0.6 RATIO (0.9-2.4); AST(SGOT) 27 U/L (15-37); Alanine Aminotransfer ALT/SGPT 24 U/L (16-61); Albumin, Serum 2.6 g/dL (3.2-5.0); Alkaline Phosphatase 152 U/L (45-117); Anion Gap 7 (5-15); BUN 8 mg/dL (7-18); Calcium,Total 7.7 mg/dL (8.5-10.1); Chloride 106 mmol/L (98-107); Creatinine, Serum 0.73 mg/dL (0.70-1.30); EST Glomerular Filtration Rate 117 mL/min (>60); Est Glom Filt Rate - Afr Amer 142 mL/min (>60); Globulin 4.4 g/dL (2.2-4.2); Glucose 100 mg/dL (74-106); Potassium 4.1 mmol/L (3.5-5.1); Sodium Level 142 mmol/L (136-145); Thyroid Stim Hormone (TSH) 2.38 uIU/mL (0.358-3.74); Uric Acid 8.9 mg/dL (3.5-7.2)
== END ==
PROVIDERS: PCP Family Medicine Geriatric Medicine; Visit Provider Family Medicine Geriatric Medicine
DX: I10 Essential (primary) hypertension (principal); M10.9 Gout, unspecified
CPT/HCPCS: 36415; 80053; 84443; 84550; 85025

== ENCOUNTER → 2021-07-01 09:05 | Outpatient (CLI) | payer MEDICAID, SELFPAY | PROVIDERS: PCP Family Medicine Geriatric Medicine; Referring Provider Internal Medicine Cardiovascular Disease; Visit Provider Internal Medicine Cardiovascular Disease | DX: I48.0 Paroxysmal atrial fibrillation (principal); I48.92 Unspecified atrial flutter; I42.9 Cardiomyopathy, unspecified; I10 Essential (primary) hypertension | CPT/HCPCS: 93225; 93226 ==

== ENCOUNTER → 2021-08-03 11:47 | Outpatient (CLI) | payer MEDICAID, SELFPAY ==
[2021-08-03 12:40] LABS: Absolute Lymphocyte Count 1.24 X10^3/uL (0.83-4.51); Absolute Neutrophil Count 4.2 X10^3/uL (2.0-7.7); Basophil# 0.02 X10^3/uL; Basophil% 0.3 % (0-1); Eosinophil# 0.18 X10^3/uL; Eosinophils% 2.9 % (0-5); Hematocrit 42.5 % (40-54); Hemoglobin 14.5 g/dL (13.0-16.5); Lymphocyte # 1.24 X10^3/ul (0.83-4.51); Lymphocyte % 20.1 % (19-41); Mean Corp Hgb Conc 34.1 g/dL (32-36); Mean Corpuscular Hgb 32.4 pg (27.0-32.0); Mean Corpuscular Volume 94.9 fL (80-94); Mean Platelet Vol. 10.3 fl (6.2-12.0); Monocyte# 0.47 X10^3/uL; Monocyte% 7.6 % (0-10); NRBC Flagged by Analyzer 0 % (0-5); Neutrophil # 4.23 X10^3/uL (2.7-7.7); Neutrophil % 68.8 % (47-70); Platelet Count 201 K/mm3 (150-450); RBC Distribution Width CV 14.6 % (11.6-14.6); Red Blood Count 4.48 M/mm3 (4.6-6.2); White Blood Count 6.2 K/mm3 (4.4-11.0)
[2021-08-03 13:03] LABS: Anion Gap 8 (5-15); BUN 11 mg/dL (7-18); BUN/Creat Ratio 13.2 RATIO (10-20); Calcium,Total 8.5 mg/dL (8.5-10.1); Chloride 97 mmol/L (98-107); Creatinine, Serum 0.83 mg/dL (0.70-1.30); EST Glomerular Filtration Rate 100 mL/min (>60); Est Glom Filt Rate - Afr Amer 121 mL/min (>60); Glucose 111 mg/dL (74-106); Potassium 3.7 mmol/L (3.5-5.1); Sodium Level 137 mmol/L (136-145)
[2021-08-03 13:04] LABS: BNP,B-Type NATRIURETIC PEPTIDE 46.6 pg/mL (0-100)
== END ==
PROVIDERS: Nurse Practitioner Family; PCP Family Medicine Geriatric Medicine; Visit Provider Internal Medicine Cardiovascular Disease
DX: I42.9 Cardiomyopathy, unspecified (principal); I10 Essential (primary) hypertension; I48.0 Paroxysmal atrial fibrillation; R06.00 Dyspnea, unspecified
CPT/HCPCS: 36415; 80048; 83880; 85025

== ENCOUNTER 2021-08-10 10:27 | Day surgery (SDC) | payer MEDICAID, SELFPAY ==
[2021-08-09 09:51] VITALS: BMI 56.2
--- NOTE | 2021-08-09 14:40 | PCM.HP.BLA ---
History and Physical Date of Admission: 08/10/21 [facility] [id number] [place], [place] [phone] OFFICE VISITDate of Service: 08/03/21 MR#:[id number]: CARLIN SMITHRep #:[id number] Provider: BORIS Betancur RoofAge/Sex: 61/M [facility]ITALedwardotus:Signed HPI HPI History of Present Illness Surgical H&P: Yes Details: This is a 61-year-old white male who presents today for an outpatient cardiovascular follow-up with a history of atrial fibrillation, non-CAD related cardiomyopathy, and hypertension. He was previously evaluated at [facility] for his cardiovascular concerns during which time he underwent evaluation with a diagnostic cardiac catheterization. The results are as noted below. At the present time he states he still feels his heart rate going up and down every day. He notes this interferes with his ability to do OT PT and continued attempts at weight loss. He denies chest, arm, jaw, or neck discomfort. He acknowledges bilateral lower extreme edema. He acknowledges shortness of breath with activity. He denies shortness of breath at rest, orthopnea, PND, or cough. He acknowledges lightheadedness, dizziness and weakness. He denies near-syncope or syncope. He acknowledges generalized fatigue. Intake Vital Signs 08/03/21 10:41 Height 6 ft 2 in Weight: 438 lb BMI 56.2 BP 96/48 L Blood Pressure Location Lt radial Position Sitting Respiration 18 Pulse 128 H Pulse Source Auscultation Intake Visit Reasons: 6 wk FU It Business Analyst Required: No Accompanied by: None Is patient in pain?: No Allergies duloxetine [From Cymbalta] Adverse Reaction (Verified 08/03/21 10:45) Other Medications albuterol sulfate 2 puff INHALATION Q6H PRN PRN 03/30/18 [History Confirmed 08/03/21] clonazepam 1 mg PO BID 03/30/18 [History Confirmed 08/03/21] cyanocobalamin (vitamin B-12) 1,000 mcg IM Q30D 05/28/18 [History Confirmed 08/03/21] allopurinol 100 mg tablet 100 mg PO DAILY 03/28/19 [History Confirmed 08/03/21] venlafaxine 50 mg tablet 100 mg PO TID 03/28/19 [History Confirmed 08/03/21] Cbd Oil 1 dose PO DAILY PRN 07/30/19 [History Confirmed 08/03/21] cholecalciferol (vitamin D3) 2,000 unit PO DAILY 07/30/19 [History Confirmed 08/03/21] acetaminophen 650 mg PO Q6H PRN PRN tab 08/01/19 [Rx Confirmed 08/03/21] lidocaine 5 % topical patch 1 patch TOPICAL DAILY PRN 02/13/20 [History Confirmed 08/03/21] cyclobenzaprine 10 mg tablet 10 mg PO HS PRN tab 08/18/20 [History Confirmed 08/03/21] doxepin 25 mg capsule 25 mg PO QHS cap 08/18/20 [History Confirmed 08/03/21] famotidine 40 mg tablet 40 mg PO DAILY tab 08/18/20 [History Confirmed 08/03/21] sulfamethoxazole 400 mg-trimethoprim 80 mg tablet 1 tab PO DAILY tab 08/18/20 [History Confirmed 08/03/21] pregabalin [Lyrica] 150 mg PO BID 04/09/21 [History Confirmed 08/03/21] tamsulosin 0.4 mg PO DAILY 04/09/21 [History Confirmed 08/03/21] valsartan-hydrochlorothiazide 1 tab PO DAILY 04/09/21 [History Confirmed 08/03/21] metoprolol tartrate 150 mg PO BID #120 tab 04/13/21 [Rx Confirmed 08/03/21] furosemide 40 mg tablet 40 mg PO DAILY #90 tab 06/16/21 [Rx Confirmed 08/03/21] potassium chloride 20 mEq tablet,extended release 20 meq PO DAILY #90 tab 06/16/21 [Rx Confirmed 08/03/21] rivaroxaban 20 mg tablet 20 mg PO DAILY #90 tab 08/04/21 [Rx] Ejection fraction %: 40 to 44 PFSH Medical History Abdominal wall pain ADD (attention deficit disorder) Atrial fibrillation Atrial fibrillation with rapid ventricular response Atrial flutter BPH (benign prostatic hyperplasia) Calcium deficiency Cardiomyopathy Cardiomyopathy CHI (closed head injury) Chronic atrial fibrillation Chronic pain Debility Depression Essential hypertension Fibromyalgia History of DVT (deep vein thrombosis) History of sepsis HTN (hypertension) Left fibular fracture Morbid obesity Neuropathy Paroxysmal atrial fibrillation Paroxysmal ventricular tachycardia Rheumatic fever Traumatic injury to skin or subcutaneous tissue Ventricular ectopy Vitamin B12 deficiency Surgical History H/O gastric bypass History of hernia repair History of left heart catheterization (04/30/21) Status post removal of thyroid nodule Family History Mother Diabetes Thyroid disorder Father Diabetes Heart disease CABG x5 in his 50s COPD (chronic obstructive pulmonary disease) Hypertension Social History Smoking Status: Former smoker how long ago did patient quit smokin years ago second hand exposure: No alcohol intake: current alcohol intake frequency: a few times a week substance use type: does not use caffeine: No what type of physical activity do you participate in: none and walking frequency: decline to answer ROS Const Const: Positive for fatigue and weakness; Negative for headache(s), frequent falls, difficulty sleeping or excessive sweating Eyes Eyes: Negative for loss of peripheral vision, transient loss of vision, blurry vision, double vision or tunnel vision ENT ENT: Positive for dizziness and balance problems; Negative for headache(s) or Nosebleed/epistaxis Cardio Chest Pain: No Palpitations: Yes feels like its: fast and irregular Edema: Bilateral Muscle aches with walking: None Resp Respiratory: Positive for SOB with activity; Negative for SOB at rest, SOB orthopnea\SOB lying down, Cough or paroxysmal nocturnal dyspnea GI GI: Negative nausea, vomiting, heartburn or black,tarry stools : Negative for hematuria Musc Musc: Positive for muscle weakness, joint pain and balance problems; Negative for muscle aches/ myalgia Skin Skin: Negative non-healing lesions, rash or unusual bruising Neuro Neuro: Positive for dizziness, lightheadedness and weakness; Negative for near syncope, syncope, frequent falls, headache(s), blurry vision, double vision or lack of coordination Brad Hematologic/Lymphatic: Negative for easy bleeding or easy bruising Endo Endo: Positive for fatigue; Negative for excessive sweating or increased thirst/drinking Psych Psych: Negative for anxiety or depression Allergy Allergy/Immunology: Negative for hives and Negative for rash Cardiology Exam Const Appearance: cooperative, healthy appearing, comfortable and no acute distress Nutritional Appearance: well nourished and obese Orientation: alert, awake and oriented x3 Head Head: normal to inspection Ears: hearing grossly normal bilaterally Nose: external nose normal Face and Sinus: face symmetric Mouth: oral mucosae normal Eyes General: appearance normal, both eyes and all related structures Eyelids: eyelids normal EOM: EOM intact bilaterally Neck Neck: normal visual inspection and no JVD Carotids: normal carotid upstroke Chest Chest inspection: normal inspection of the chest, symmetric chest movement and normal respiratory effort; Negative cough Auscultation: Bilateral: Clear to Auscultation Cardio Rate: tachycardic Rhythm: regular rhythm Heart sounds: S1 normal and S2 normal; Negative rub, gallop or murmur GI GI: normal to inspection and obese Neuro General: patient alert, patient awake, patient oriented x3 and CN's II-XI intact bilaterally Skin Skin: no rashes or lesions noted Extremities Pulses: Normal: Right Radial Pulse and Left Radial Pulse and Diminished: Right Posterior Tibial Pulse and Left Posterior Tibial Pulse Lower Extremity Edema: +2: Bilateral and Color Changes: Bilateral (chronic appearing) Psych Psychological: normal affect Supplemental Info Supplemental Information ECHO: 04-10-2021 Interpretation Summary The estimated ejection fraction is EF 40-45 %. TDS/Limited 2 D echo Stress Test: 08-01-2019 Stress echocardiogram: Interpretation Summary The estimated ejection fraction is 65 %. Normal, adequate, dobutamine echocardiogram. Negative for ischemia by EKG and echocardiographic criteria. No anginal symptoms noted. Rare PVCs noted. Test terminated due to the attainment target heart rate. Final LVEF is 75%. Decreased sensitivity due to poor echo windows requiring Definity agent. Patient tolerated the procedure well. No complications. Patient tolerated procedure well. No complications. The study was technically difficult. Contrast injection was performed. Cardiac catheterization: 04-30-2021 CONCLUSIONS Elevated Left Ventricular End Diastolic Pressure Global LV systolic dysfunction- Mild LVEF: by LV gram 50 % Normal coronary arteries RECOMMENDATIONS Risk factor modification Medical therapy DESCRIPTION OF PROCEDURE The patient arrived to the procedure lab. The risks and benefits of the procedure as well as a full description of our services here and current unavailability of surgical backup were fully explained to the patient and/or their significant other prior to the catheterization. The Timeout was completed, verifying the correct patient and procedure. The patient's procedural site was prepped and draped in the usual fashion. Local anesthetic was given subcutaneously to left radial region with Lidocaine 2%. Using a modified Seldinger technique, arterial access was obtained via the left radial artery, a 6Fr sheath was inserted. Left Coronary Artery selective angiography was performed in multiple views using a 5 Fr. JL4 catheter. Right Coronary Artery selective angiography was then performed in multiple views using a 5 Fr. JR 4 catheter. Left Ventriculography was performed in PIERCE projection using a 5 Fr. Pigtail catheter. LV to AO pullback pressures were then recorded.The arterial sheath was pulled and a TR Band was applied for hemostasis CORONARY ANGIOGRAPHY DOMINANCE: Right Dominant LEFT HEART ASSESSMENT Left Ventricular Ejection Fraction: by LV Gram 50 % Normal LV wall motion Elevated Left Ventricular End Diastolic Pressure LVEDP: 30 mmHg LEFT MAIN: Angiographically normal LEFT ANTERIOR DESCENDING ARTERY: Angiographically normal CIRCUMFLEX ARTERY: Angiographically normal RIGHT CORONARY ARTERY: Angiographically normal AORTIC ROOT: Angiographically normal COMPLICATIONS No Complications Holter monitor from June 2021: Minimum heart rate 93 beats minute. Average heart 120 beats minute. Maximum heart 167 beats minute. Ventricular ectopy 0.3%. Supraventricular tachycardia 0.0%. Atrial fibrillation 9 9.7%. 1 wide-complex ventricular run 4 beats rate 240 bpm. The longest R to R interval was 0.9 seconds. The patient did not return a 24-hour diary. Labs: LDL Cholesterol 58 mg/dL (0-130) HDL Cholesterol 40 mg/dL (40-) Triglycerides 107 mg/dL (-199) VLDL Cholesterol 21 mg/dL (5-40) Diagnostics: Electrocardiogram Cardiac Catheterization Chest X-Ray Pulmonary: No Data to Display Assessment and Plan Assessment and Plan (1) Paroxysmal atrial fibrillation: Status: Chronic Orders: Orders: 12 Lead EKG performed by BMS 08/03/21 CBC W/Diff, Automated 08/03/21 BNP,B-Type NATRIURETIC PEPTIDE 08/03/21 Cardioversion Today Plan - Mitchell Rodrigues READING SPECIALIST, READING SPECIALIST-C: Patient's EKG today in office continues to show atrial flutter. His heart rate is elevated. His blood pressure is on the lower side today, which does not appear to be more common since hospitalization. His most recent echocardiogram from March 2021 showed ejection fraction 40-45% and normal left and right atrium size. He does acknowledge that his rate appears to be less controlled since his fall in March 2021, that required hospitalization. His case was reviewed with Dr. Bruce. At this time, we will proceed with cardioversion. He will continue to follow with territory development manager. He acknowledges no interruption with Xarelto therapy. He will continue such for CVA protection. (2) Cardiomyopathy: Status: Chronic Orders: Orders: CBC W/Diff, Automated 08/03/21 BNP,B-Type NATRIURETIC PEPTIDE 08/03/21 Cardioversion Today Plan - Mitchell Rodrigues READING SPECIALIST, READING SPECIALIST-C: His most recent echocardiogram March 2021 showed ejection fraction of 40-45%. On such account, we will not add calcium channel gali for his heart rate as well as lower blood pressure. He does note shortness of breath with exertion that, that may be result of fluid volume overload in the setting of atrial fibrillation/flutter with RVR. However, this may also be due to his weight. He was asked to undergo laboratory assessment to assess for fluid volume overload. He will continue metoprolol tartrate and valsartan?hydrochlorothiazide. Over time, his heart function will be reevaluated and hopefully, with better rate control, his heart function improves. Over time, we can consider repeat echocardiogram as well as medication adjustment that may include Coreg therapy or Entresto therapy. He was asked to go laboratory evaluation to assess blood count, fluid volume overload, kidney function, and electrolytes to guide care. Based on results, further recommendation be made. By completion of this note. Patient's hemoglobin was noted be stable. His kidney function was noted be stable. And his BNP was negative. (3) Essential hypertension: Status: Chronic Orders: Orders: CBC W/Diff, Automated 08/03/21 BNP,B-Type NATRIURETIC PEPTIDE 08/03/21 Plan - Mitchell Rodrigues READING SPECIALIST, READING SPECIALIST-C: His blood pressure on the lower side today. We will continue to monitor. Plan Details Other Orders: Orders: CBC W/Diff, Automated 08/03/21 R06.00 BNP,B-Type NATRIURETIC PEPTIDE 08/03/21 R06.00 Additional Comments: Thank you for allowing me to participate in the care of your patient. Please don't hesitate to call if any issues arise. This note was generated using a voice recognition system and there may be incorrect words, spelling or punctuation that were not noted when reviewing the office note prior to saving. Follow Up: 4-8 weeks (READING SPECIALIST/PA) 12 Months (PFM) COVID (Procedure Consent) Procedure Criteria Procedure Criteria: Yes Elective The surgeon/proceduralist and patient have discussed in detail the risk of exposure to and/or potential harm posed by the COVID-19 virus with having a surgery/procedure at this time versus the risk of delaying the surgery/procedure. It is not possible to know either the risk of delaying the surgery or procedure or chance of getting an infection with perfect accuracy, but a joint decision was made between the patient and the surgeon/proceduralist to proceed at this time with the scheduled surgery/procedure as indicated on the consent form. Coding Level of Care Code Off vis,est,level 4 Diagnoses Paroxysmal atrial fibrillation I48.0 Cardiomyopathy I42.9 Essential hypertension I10 Coding Level of Care Code Off vis,est,level 4 Diagnoses Paroxysmal atrial fibrillation I48.0 Cardiomyopathy I42.9 Essential hypertension I10 08/04/21 0954<Electronically signed by Mitchell Rodrigues NP READING SPECIALIST-C>Date Mitchell Rodrigues NP READING SPECIALIST-C Cosigner Signature:Date (if applicable) CC: Dr. Chalo Mclean MD ~ Assessment & Plan Addt'l Comments I have re-examined the patient. There are no clinical changes since date of exam
--- NOTE | 2021-08-10 12:36 | CARDIOVERS ---
Cardioversion Cardioversion: Date: 08-10-2021 Procedure: Synchronized Biphasic DC Cardioversion Indications: Atrial fibrillation/flutter Consent: Per the Patient Anesthesia: per Dr. Hitchcock of pulmonology and critical care medicine with etomidate 12 mg IV push total Procedure: Synchronized Biphasic DC Cardioversion: 200 J x 1: Result: Sinus rhythm/PACs Complications: no apparent complications This note was generated with DentLightation software. It may contain incorrect words, spelling, and punctuation that were not noted in checking the note before signing.
--- NOTE | 2021-08-10 12:39 | PRO.PCM_ITS ---
Assessment & Plan Assessment/Plan (1) Cardiomyopathy: (2) Paroxysmal atrial fibrillation: (3) Dyspnea on exertion: (4) Morbid obesity: Procedure Report Date of Procedure: 08/10/21 CONSCIOUS SEDATION REPORT BRIEF HISTORY OF PRESENT ILLNESS: The patient is a 61-year-old male who presented to [facility] for an elective outpatient cardioversion due to underlying atrial fibrillation. The patient reports no PO intake since midnight, but is currently therapeutic on anticoagulation. The patient does not report a history of DARLIN. The patient reports a history of smoking, but denies COPD. The patient denies any recent constitutional symptoms such as fevers, chills, nausea or vomiting. The patient denies previous applicable anesthetic complications. Patient's last known ejection fraction was 40%. Patient has not had a previous cardioversion. PHYSICAL EXAMINATION: VITAL SIGNS: Reviewed and were acceptable. GENERAL: The patient is a male, in no apparent distress, speaking in full sentences. HEENT: Normocephalic, atraumatic. Mucous membranes are moist and pink. Good mouth opening noted. Trachea is midline. Good neck mobility. MP IV CHEST: S1, S2 irregularly irregular. No murmurs, rubs or gallops were noted. LUNGS: Clear to auscultation bilaterally without appreciable wheezes, rales or rhonchi. ABDOMEN: Soft, nontender, nondistended. Positive bowel sounds. EXTREMITIES: There is no clubbing, cyanosis or edema. ASA Class: II DESCRIPTION OF PROCEDURE: After confirmation of informed consent, the patient's anesthesia plan was reviewed in detail. Etomidate was chosen. Risks and benefits were reviewed and the patient agreed to proceed. At 11:57 AM, the patient was given 4 mg of etomidate. The patient required a total of 12 mg of etomidate throughout the procedure to achieve appropriate sedation. The patient achieved an appropriate level of sedation and received 1 attempt synchronized cardioversion, at [address] Bruce at the bedside. This was successful in achieving normal sinus rhythm. The patient was monitored until 12:10 PM, at which time the patient reached their baseline mental status and function. The patient tolerated the procedure well. COMPLICATIONS: None ESTIMATED BLOOD LOSS: None RECOMMENDATIONS: Okay to recover in usual fashion. Procedures Pulmonary 9xxxx: 03000 Con Sedation
== END 2021-08-10 13:24 | disposition home or self-care (01) ==
LOC: CLSP 10:28
PROVIDERS: PCP Family Medicine Geriatric Medicine; Referring Provider Internal Medicine Cardiovascular Disease; Visit Provider Internal Medicine Cardiovascular Disease
DX: I48.0 Paroxysmal atrial fibrillation (principal); I42.9 Cardiomyopathy, unspecified; I10 Essential (primary) hypertension; I48.92 Unspecified atrial flutter; I47.2 Ventricular tachycardia; M79.7 Fibromyalgia; F32.A Depression, unspecified; E66.01 Morbid (severe) obesity due to excess calories; Z68.43 Body mass index [BMI] 50.0-59.9, adult; Z79.01 Long term (current) use of anticoagulants; Z79.899 Other long term (current) drug therapy; Z87.891 Personal history of nicotine dependence; Z86.718 Personal history of other venous thrombosis and embolism
CPT/HCPCS: 92960; 93005; J7040

== ENCOUNTER 2021-09-01 12:05 | Outpatient (CLI) | payer MEDICAID, SELFPAY ==
[2021-09-01 12:41] LABS: Absolute Neutrophil Count 1.7 X10^3/uL (2.0-7.7); Basophil# 0.03 X10^3/uL; Basophil% 0.9 % (0-1); Eosinophil# 0.24 X10^3/uL; Eosinophils% 6.9 % (0-5); Hematocrit 42.1 % (40-54); Hemoglobin 13.3 g/dL (13.0-16.5); Lymphocyte % 37.4 % (19-41); Mean Corp Hgb Conc 31.6 g/dL (32-36); Mean Corpuscular Volume 94.8 fL (80-94); Mean Platelet Vol. 10.4 fl (6.2-12.0); Monocyte# 0.24 X10^3/uL; Monocyte% 6.9 % (0-10); NRBC Flagged by Analyzer 0 % (0-5); Neutrophil # 1.66 X10^3/uL (2.7-7.7); Neutrophil % 47.6 % (47-70); Platelet Count 194 K/mm3 (150-450); RBC Distribution Width CV 14.1 % (11.6-14.6); Red Blood Count 4.44 M/mm3 (4.6-6.2); White Blood Count 3.5 K/mm3 (4.4-11.0)
[2021-09-01 13:00] LABS: ALB/GLOB Ratio 0.6 RATIO (0.9-2.4); AST(SGOT) 43 U/L (15-37); Alanine Aminotransfer ALT/SGPT 31 U/L (16-61); Albumin, Serum 2.9 g/dL (3.2-5.0); Alkaline Phosphatase 133 U/L (45-117); Anion Gap 5 (5-15); BUN 7 mg/dL (7-18); BUN/Creat Ratio 9.9 RATIO (10-20); Calcium,Total 7.8 mg/dL (8.5-10.1); Chloride 109 mmol/L (98-107); Creatinine, Serum 0.71 mg/dL (0.70-1.30); EST Glomerular Filtration Rate 121 mL/min (>60); Est Glom Filt Rate - Afr Amer 146 mL/min (>60); Globulin 4.5 g/dL (2.2-4.2); Glucose 123 mg/dL (74-106); PSA,Total - Annual Screen 0.18 ng/mL (0.00-4.00); Potassium 4.1 mmol/L (3.5-5.1); Protein, Total 7.4 g/dL (6.4-8.2); Sodium Level 142 mmol/L (136-145); Thyroid Stim Hormone (TSH) 5.04 uIU/mL (0.358-3.74); Uric Acid 6.6 mg/dL (3.5-7.2)
== END 2021-09-01 23:59 | disposition short-term general hospital (02) ==
LOC: POLAB3 12:06
PROVIDERS: PCP Family Medicine Geriatric Medicine; Visit Provider Family Medicine Geriatric Medicine
DX: I10 Essential (primary) hypertension (principal); M10.9 Gout, unspecified; Z12.5 Encounter for screening for malignant neoplasm of prostate
CPT/HCPCS: 84153; 36415; 80053; 84443; 84550; 85025; G0103

== ENCOUNTER 2021-09-16 15:53 | Outpatient (CLI) | payer MEDICAID, SELFPAY ==
--- NOTE | 2021-09-16 15:58 | CT_ITS ---
HISTORY: CANCER SCREENING. TECHNIQUE: Helically acquired images were obtained of the chest without contrast. A radiation dose optimization technique was used for this scan. # of images incl. paperwork: [id number]. COMPARISON: [facility] 03/31/2018. FINDINGS: LARGE AIRWAYS: Clear. LUNGS: No suspicious nodule. Minimal dependent atelectasis. PLEURA: No pleural effusion. HEART AND PERICARDIUM: Heart within normal limits in size. No pericardial effusion. VESSELS: Thoracic aorta nondilated. MEDIASTINUM AND BRIAN: No pathologically enlarged lymphadenopathy. UPPER ABDOMEN: Severely limited due to artifact from body habitus and technique. SOFT TISSUES: Artifact from body habitus. BONES: Mild degenerative change. CT/Low Dose CT Lung Screening IMPRESSION: No suspicious pulmonary nodule or acute abnormality identified in the chest. Lung-RADS category 1: Negative. Continue annual screening with LDCT. Individualized dose optimization techniques were used for this CT. at 1649 Reported and signed by: Aracely Mendez MD Electronically Signed: Aracely Mendez MD at 16:48 EST ,
== END 2021-09-16 23:59 | disposition short-term general hospital (02) ==
LOC: CT 15:55
PROVIDERS: PCP Family Medicine Geriatric Medicine; Referring Provider Family Medicine Geriatric Medicine; Visit Provider Family Medicine Geriatric Medicine
DX: F17.210 Nicotine dependence, cigarettes, uncomplicated (principal)
CPT/HCPCS: 71271

== ENCOUNTER 2021-10-05 13:42 | Outpatient (CLI) | payer MEDICAID, SELFPAY ==
[2021-10-05 16:43] LABS: T3 Uptake 31 % (33-40); Thyroid Stim Hormone (TSH) 1.92 uIU/mL (0.358-3.74)
[2021-10-05 16:50] LABS: T7 / Free Thyroxin Index 0.3 (1.4-4.5)
== END 2021-10-05 23:59 | disposition home or self-care (01) ==
LOC: POLAB3 13:43
PROVIDERS: PCP Family Medicine Geriatric Medicine; Visit Provider Family Medicine Geriatric Medicine
DX: E03.9 Hypothyroidism, unspecified (principal)
CPT/HCPCS: 36415; 84439; 84443; 84479

== ENCOUNTER → 2022-02-26 | Outpatient (CLI) | payer MEDICAID, SELFPAY ==
--- NOTE | 2022-02-26 09:35 | RAD_ITS ---
STUDY: X-RAY - LUMBAR SPINE REASON FOR EXAM: Male, 61 years old. Low back pain TECHNIQUE: XR Spine Lumbar 2 or 3 Views COMPARISON: None FINDINGS: Normal lumbar lordosis. There is a dextroscoliosis of the lumbar spine. An IVC filter is in place. There is a normal alignment of the vertebrae. There is multilevel endplate spondylosis of the lumbar vertebrae. There is multi-level degenerative disc disease with multi-level disc space narrowing. There are atherosclerotic vascular calcifications. The soft tissue structures are unremarkable. RAD/Lumbar Spine 2 or 3 Views IMPRESSION: Degenerative changes of the spine, as detailed above. Electronically Signed: Yusef Suh MD at 15:23 EDT ,
[2022-02-26 10:19] LABS: Hematocrit 41.3 % (40-54); Mean Corp Hgb Conc 31.5 g/dL (32-36); Mean Corpuscular Hgb 28.8 pg (27.0-32.0); Mean Corpuscular Volume 91.6 fL (80-94); Mean Platelet Vol. 10.5 fl (6.2-12.0); Platelet Count 199 K/mm3 (150-450); RBC Distribution Width SD 57.4 fl (35.1-43.9); Red Blood Count 4.51 M/mm3 (4.6-6.2); White Blood Count 3.6 K/mm3 (4.4-11.0)
[2022-02-26 10:26] LABS: Hemoglobin A1c 5.4 % (3.8-5.6); Vitamin B12 453 pg/mL (211-911)
[2022-02-26 10:40] LABS: ALB/GLOB Ratio 0.6 RATIO (0.9-2.4); AST(SGOT) 20 U/L (15-37); Alanine Aminotransfer ALT/SGPT 18 U/L (16-61); Albumin, Serum 2.7 g/dL (3.2-5.0); Alkaline Phosphatase 129 U/L (45-117); Anion Gap 6 (5-15); BUN 8 mg/dL (7-18); BUN/Creat Ratio 12.4 RATIO (10-20); Calcium,Total 7.7 mg/dL (8.5-10.1); Chloride 106 mmol/L (98-107); Creatinine, Serum 0.65 mg/dL (0.70-1.30); EST Glomerular Filtration Rate 134 mL/min (>60); Est Glom Filt Rate - Afr Amer 162 mL/min (>60); Globulin 4.4 g/dL (2.2-4.2); Glucose 114 mg/dL (74-106); Protein, Total 7.1 g/dL (6.4-8.2); Sodium Level 139 mmol/L (136-145); Thyroid Stim Hormone (TSH) 1.98 uIU/mL (0.358-3.74)
[2022-03-01 10:16] LABS: Free Kappa Light Chains 34.5 mg/L (3.3-19.4)
== END | disposition home or self-care (01) ==
PROVIDERS: Nurse Practitioner Family; PCP Family Medicine Geriatric Medicine; Visit Provider Psychiatry & Neurology Neurology
DX: I10 Essential (primary) hypertension (principal); G62.9 Polyneuropathy, unspecified; R73.9 Hyperglycemia, unspecified; M47.816 Spondylosis without myelopathy or radiculopathy, lumbar region; M51.36 Other intervertebral disc degeneration, lumbar region; M48.061 Spinal stenosis, lumbar region without neurogenic claudication
CPT/HCPCS: 36415; 72100; 80053; 82607; 82746; 83036; 83883; 84443; 85027

== ENCOUNTER → 2022-03-09 | Outpatient (CLI) | payer MEDICAID, SELFPAY ==
[2022-03-14 10:07] LABS: Albumin 3.2 g/dL (2.9-4.4); Alpha-1-Globulins 0.2 g/dL (0.0-0.4); Alpha-2-Globulins 0.9 g/dL (0.4-1.0); Gamma Globulin 1.5 g/dL (0.4-1.8); Immunoglobulin A 395 mg/dL (90-386); Immunoglobulin G 1332 mg/dL (603-1613); Immunoglobulin M 245 mg/dL (20-172); PROEL- TOTAL PROTEIN 7.1 g/dL (6.0-8.5)
== END | disposition home or self-care (01) ==
LOC: LAB 07:36
PROVIDERS: PCP Family Medicine Geriatric Medicine; Referring Provider Psychiatry & Neurology Neurology; Visit Provider Psychiatry & Neurology Neurology
DX: G62.9 Polyneuropathy, unspecified (principal)
CPT/HCPCS: 36415; 82784; 84165; 84425; 86334

== ENCOUNTER → 2022-03-11 | Outpatient (CLI) | payer MEDICAID, SELFPAY | END | disposition home or self-care (01) | PROVIDERS: PCP Family Medicine Geriatric Medicine; Referring Provider Psychiatry & Neurology Neurology; Visit Provider Psychiatry & Neurology Neurology | DX: G62.9 Polyneuropathy, unspecified (principal) | CPT/HCPCS: 86335 ==

== ENCOUNTER 2022-03-16 13:36 | Outpatient (RCR) | payer MEDICAID, SELFPAY ==
--- NOTE | 2022-03-16 14:59 | WC ---
wound is pouring
--- NOTE | 2022-03-16 21:29 | PCM.WC.HP ---
History of Present Illness Date of Service: 03/16/22 Chief Complaint: Right medial leg ulcer History of Wound: 61 year old male presents with right medial leg ulcers that occurred after he had blisters that formed and then drained starting in November. He has a history of having leg ulcers in the past. He states that he is waiting for vascular studies ordered by his neurologist, Dr. Farris because he was not able to palpate a pulse in his foot at his last appointment. He states he has been placing adaptic and gauze over the the ulcers that he had left over from his last ulcer that healed. He had MICHELLE 11/24/20 which showed right MICHELLE - 1.14 and left MICHELLE 1.04, both with triphasic waveforms. Patient has a history of over 250 lb weight loss after a Malik-en-Y bariatric surgery in the in [place]. He also has a history of gout, afib, alcohol use of 4-6 cans of beer a few times a week. He has his medical marijuana card. Patient states he doesn't eat much because of his gastric bypass surgery, he typically drinks most of his calories, including a 1/2 of gallon of skim milk per day. He typically sleeps sitting in a chair. Today he denies having a temperature, fever, chills, nausea, vomiting. Progress of Wound: Right medial leg ulcer cluster is pink. There is +2-+3 pitting edema of his bilateral lower extremities. [facility] Medical History Abdominal wall pain ADD (attention deficit disorder) Atrial fibrillation Atrial fibrillation with rapid ventricular response Atrial flutter BPH (benign prostatic hyperplasia) Calcium deficiency Cardiomyopathy Cardiomyopathy CHI (closed head injury) Chronic atrial fibrillation Chronic pain Debility Depression Essential hypertension Fibromyalgia History of DVT (deep vein thrombosis) History of sepsis HTN (hypertension) Left fibular fracture Morbid obesity Neuropathy Paroxysmal atrial fibrillation Paroxysmal ventricular tachycardia Rheumatic fever Traumatic injury to skin or subcutaneous tissue Ventricular ectopy Vitamin B12 deficiency Home Medications albuterol sulfate 90 mcg/actuation aerosol inhaler 2 puff inhalation Q6H PRN PRN Sob &/Or Wheezing 03/30/18 [History Last Taken 07/27/19] clonazepam 1 mg tablet 1 mg PO BID MENTAL HEALTH 03/30/18 [History Last Taken 04/08/21 22:00] cyanocobalamin (vitamin B-12) 1,000 mcg/mL injection solution 1,000 mcg IM Q30D DEFICIENCY 05/28/18 [History Last Taken 04/22/21] allopurinol 100 mg tablet 100 mg PO DAILY gout 03/28/19 [History Last Taken 04/08/21 08:00] venlafaxine 50 mg tablet 100 mg PO TID depression 03/28/19 [History Last Taken 04/08/21 22:00] Cbd Oil 1 dose PO DAILY PRN Pain 07/30/19 [History Last Taken 07/16/19] cholecalciferol (vitamin D3) 50 mcg (2,000 unit) capsule 2,000 unit PO DAILY supplement 07/30/19 [History Last Taken 04/08/21 08:00] acetaminophen 325 mg tablet 650 mg PO Q6H PRN PRN Pain Score 1-3/Temp > 100.7 F 08/01/19 [Rx Last Taken Unknown] lidocaine 5 % topical patch 1 patch topical DAILY PRN Pain 02/13/20 [History Last Taken Unknown] cyclobenzaprine 10 mg tablet 10 mg PO HS PRN MUSCLE RELAXER 08/18/20 [History Last Taken 04/08/21 22:00] doxepin 25 mg capsule 25 mg PO QHS sleep 08/18/20 [History Last Taken 04/08/21 22:00] famotidine 40 mg tablet 40 mg PO DAILY reflux 08/18/20 [History Last Taken 04/08/21 08:00] sulfamethoxazole 400 mg-trimethoprim 80 mg tablet 1 tab PO DAILY infection 08/18/20 [History Last Taken 04/08/21 08:00] tamsulosin 0.4 mg capsule 0.4 mg PO DAILY bladder 04/09/21 [History Last Taken 04/08/21 08:00] valsartan 160 mg-hydrochlorothiazide 12.5 mg tablet 1 tab PO DAILY bp/heart 04/09/21 [History Last Taken 04/08/21 08:00] furosemide 40 mg tablet 40 mg PO DAILY #90 tabs 06/16/21 [Rx Last Taken Unknown] potassium chloride 20 mEq tablet,extended release 20 meq PO DAILY #90 tabs 06/16/21 [Rx Last Taken Unknown] rivaroxaban 20 mg tablet 20 mg PO DAILY afib #90 tabs 08/04/21 [Rx Last Taken 08/10/21] metoprolol tartrate 75 mg tablet 150 mg PO TID 09/28/21 [History Last Taken Unknown] pregabalin 150 mg capsule (Lyrica) 150 mg PO TID neuropathy 09/28/21 [History Last Taken Unknown] oxcarbazepine 300 mg tablet 300 mg PO .COMPLEX #60 tabs 02/24/22 [Rx Last Taken Unknown] Allergy/AdvReac Type Severity Reaction Status Date / Time duloxetine [From Cymbalta] AdvReac Other Verified 02/24/22 10:19 Family History Mother Diabetes Thyroid disorder Father Diabetes Heart disease CABG x5 in his 50s COPD (chronic obstructive pulmonary disease) Hypertension Surgical History H/O gastric bypass History of cardioversion (~08/10/21) History of hernia repair History of left heart catheterization (04/30/21) Status post removal of thyroid nodule Social History Smoking Status: Former smoker how long ago did patient quit smokin years ago second hand exposure: No alcohol intake: current alcohol intake frequency: a few times a week details: 4-6 cans (12 oz) of beer a couple times per week substance use type: marijuana caffeine: No what type of physical activity do you participate in: none frequency: decline to answer khloe/faith: [employer] seatbelt use: never Physical Exam Const alert, oriented x3 and no apparent distress General Appearance: cooperative HEENT normocephalic Neck full ROM Resp normal respiratory effort, normal air movement and clear to auscultation bilaterally Cardio regular rate and regular rhythm Peripheral Pulses: dorsalis pedis pulses present left 1+ and diminished GI normal to inspection, nondistended, normoactive bowel sounds, soft to palpation and non-tender Extremity normal capillary refill Extremity Narrative: Bilateral lower leg edema +2-+3 pitting. Skin Wound Narrative: Right medial leg ulcer cluster, base of ulcers are pink. Moderate to large amount of serosanguineous drainage present. Neuro oriented x3 Sensorium / Orientation: awake and alert Psych thought process normal Appearance: appropriate Debridement Note Debridement Note Wound debrided: medial leg ulcer cluster Laterality: Right Type of Debridement: Excisional debridement Anesthesia Used: 5% Lidocaine Gel Depth: Down to and including healthy tissue and in the subcutaneous layer Percentage of wound debrided: 100 Instrument Used: 3mm curette Tissue Removed: Non viable tissue and slough Severity: Fat Layer Exposed Amount of bleeding with debridement: Mild Bleeding Controlled with: Pressure and Compression and gauze Patient tolerated procedure: Patient tolerated procedure well Debridement Free Text: Mild amount of bleeding present after debridement but there was a moderate to large amount of serous drainage present, most likely due to the amount of edema present. Post-Debridement Measurements and Additional Note: Post-Debridement Measurements/Treatment YULIA - Nurse 1 - General Ulcer Assessment Start: 03/16/22 14:05 Freq: Status: Active Protocol: STEW Activity Type Activity Date Activity User E-sign Co-sign Detail Recorded Client Recorded Date Recorded By Document 03/16/22 14:05 SKY [id number] 03/16/22 14:11 SKY 03/16/22 14:05 YULIA Hercules Today's Visit Information Type of service Initial Visit Arrival Mode Ambulatory,Cane Patient Identification Verified (Name & Yes ) Pain Scale: 0-10 Numeric Is Patient Pain Free? Yes YULIA - Nurse 1 - General Ulcer Measurement Start: 03/16/22 14:05 Freq: Status: Active Protocol: Activity Type Activity Date Activity User E-sign Co-sign Detail Recorded Client Recorded Date Recorded By Document 03/16/22 14:05 SKY [id number] 03/16/22 14:11 SKY 03/16/22 14:05 Wound Center Nurse 1 #3 Right medial Sandy -Current Size (cm) - Length 0.5 -Current Size (cm) - Width 0.5 -Current Size (cm) - Depth 0.1 -Total Square Cm 0.25 -Exudate Amt Small -Exudate Type Serosanguineous -Wound Margin Distinct, Outline Attached -Granulation Amt Large (67-100%) -Granulation Quality [place] -Necrosis Amt None Present (0 %) -Texture (Candy-wound Skin Appearance) Assessed, Scarring -Moisture (Candy-wound Skin Appearance) No Abnormality, Assessed -Color (Candy-wound Skin Appearance) No Abnormality, Assessed -Temperature (Candy-wound Skin No Abnormality Appearance) (Pt Warm) -Tenderness on Palpation (Candy-wound No Skin Appearance) -Ulcer Cleansing Rinsed/ Irrigated with Saline -Foul Odor after Cleansing No -Anesthetic Used 5% Lidocaine Gel Right Calf (cm) 52.5 Right Ankle (cm) 30 Left Calf (cm) 51 Left Ankle (cm) 30 WC - Nurse 2 - General Ulcer CM Notes Start: 03/16/22 14:05 Freq: Status: Active Protocol: Activity Type Activity Date Activity User E-sign Co-sign Detail Recorded Client Recorded Date Recorded By Document 03/16/22 14:29 MW [id number] 03/16/22 14:34 MW 03/16/22 14:29 Wound Center Nurse 2 #3 Right medial Sandy -Time 14:30 -Correct Patient Yes -Correct Side, Site, Position Yes -Correct Procedure Yes -Procedure Performed Yes -Type of Procedure Debridement -Clinical Debridement Subcutaneous -Tissue Removed Subcutaneous -Post Debridement (cm) - Length 2.9 -Post Debridement (cm) - Width 0.7 -Post Debridement (cm) - Depth 0.2 -Total Square (Post) (cm) 2.03 -Area of Debridement (cm) - Length 2.9 -Area of Debridement (cm) - Width 0.7 -Total Square (Area) (cm) 2.03 -Tunneling No -Undermining/Tunneling No -Circular Undermining No -Wound/Ulcer Outcome Not Healed -Ulcer Cleansing Rinsed/ Irrigated with Saline -Foul Odor after Cleansing No -Bioengineered Tissue No -Bleeding Controlled with Pressure -Treatment Response Procedure Tolerated Well -Offloading No -Debridement - Subq, 1st 20sq cm Yes Pain Scale: 0-10 Numeric Is Patient Pain Free? Yes - Nurse 3 - General Ulcer D/C NN Start: 03/16/22 14:05 Freq: Status: Active Protocol: Activity Type Activity Date Activity User E-sign Co-sign Detail Recorded Client Recorded Date Recorded By Document 03/16/22 14:57 AK [id number] 03/16/22 14:59 AK 03/16/22 14:57 Wound Care Nurse 3 #3 Right medial Sandy -Ulcer Cleansing Rinsed/ Irrigated with Saline -Foul Odor after Cleansing No -Negative Pressure Wound Therapy N/A -Primary Dressing Applied Optilok 6.5x10, Promogran Poppy Matter -Other Dressing ABD bottom of super absorber -Primary Dressing Covered/Secured with Secured with Tape -Optilok 6.5x10 1 -Promogran Poppy Matter 1 Right -Lotion applied to leg before No compression wrap -Compression Wrap Hill Wrap Pain Scale: 0-10 Numeric Is Patient Pain Free? Yes WC - Visit Discharge Discharge Condition Stable Ambulatory Status Ambulatory,Cane Transportation Private Auto Medication Reconcilliation completed & Yes provided to patient/care provider Clinical Summary of Care Provided Yes 03/16/22 14:59 Wound Center by Mingo Rivas wound is pouring Initialized on 03/16/22 14:59 - END OF NOTE Charges/Coding Visit Charges Office Visits / Consults: [id number] OV L4 Est (25 modifier) Procedures Integumentary 111xxx-113xx: 23166 Linda subq tissue 20 sq cm/< Assessment/Plan Assessment/Plan (1) Ulcer of right lower extremity: CODE(S): L97.919 - Non-pressure chronic ulcer of unspecified part of right lower leg with unspecified severity (2) Edema of both lower extremities: CODE(S): R60.0 - Localized edema (3) Decreased pedal pulses: CODE(S): R09.89 - Other specified symptoms and signs involving the circulatory and respiratory systems PLAN: Plan Patient was seen and evaluated at the wound healing center today. A subcutaneous debridement was performed as documented. Patient has MICHELLE test scheduled for March by his neurologist, Dr. Farris. I would like both venous and arterial studies performed for further evaluation of his vascular status. Wound care - Right medial leg ulcer Poppy covered with adaptic topped with gauze/super absorber. He should wash the ulcer cluster daily with soap and water before doing the dressing change. HILL wrap for compression. Encouraged him to elevate legs when sitting. Avoid dangling feet and legs to help prevent edema. Encouraged increase protein intake and Vitamin C to help promote wound healing. Encouraged him to decrease the amount of alcohol intake. Follow up one week.
== END 2022-03-20 23:59 | disposition home or self-care (01) ==
LOC: WC 13:36
PROVIDERS: PCP Family Medicine Geriatric Medicine; Visit Provider Nurse Practitioner Family
DX: L97.812 Non-pressure chronic ulcer of other part of right lower leg with fat layer exposed (principal); I48.20 Chronic atrial fibrillation, unspecified; R60.0 Localized edema; R09.89 Other specified symptoms and signs involving the circulatory and respiratory systems; I10 Essential (primary) hypertension; M10.9 Gout, unspecified; M79.7 Fibromyalgia; N40.0 Benign prostatic hyperplasia without lower urinary tract symptoms; F32.A Depression, unspecified; Z79.01 Long term (current) use of anticoagulants; Z79.899 Other long term (current) drug therapy; Z87.891 Personal history of nicotine dependence; Z98.84 Bariatric surgery status; Z86.718 Personal history of other venous thrombosis and embolism
CPT/HCPCS: G0463; 11042; 99203; 99213

== ENCOUNTER → 2022-03-29 | Outpatient (CLI) | payer MEDICAID, SELFPAY | END | disposition home or self-care (01) | LOC: SL 20:26 | PROVIDERS: PCP Family Medicine Geriatric Medicine; Referring Provider Nurse Practitioner Family; Visit Provider Nurse Practitioner Family | DX: G47.50 Parasomnia, unspecified (principal) | CPT/HCPCS: 95810 ==

== ENCOUNTER → 2022-04-01 | Outpatient (CLI) | payer MEDICAID, SELFPAY ==
--- NOTE | 2022-04-01 12:57 | VDLE_ITS ---
Reason For Study: Edema RIGHT LEFT CFV is compressible, spontaneous, phasic, CFV is compressible, spontaneous, phasic, competent and demonstrates normal competent, and demonstrates normal augmentation. augmentation. FV is compressible, spontaneous, phasic, FV is compressible, spontaneous, phasic, competent and demonstrates normal competent and demonstrates normal augmentation. augmentation. POP V is compressible, spontaneous, phasic, POP V is compressible, spontaneous, phasic, competent and demonstrates normal competent and demonstrates normal augmentation. augmentation. T/P Trunk is compressible. T/P Trunk is compressible. PTV is compressible. PTV is compressible. RT PerV is compressible. LT PerV is compressible. SFJ is INCOMPETENT and measures 0.99cm x 1.03 SFJ is competent and measures 1.02 x 0.92 cm. cm. GSV proximal thigh measures 0.95 x 0.90 cm. GSV proximal thigh measures 0.94cm x 0.98 cm. GSV above knee is competent. GSV at knee measures 0.48cm x 0.47 cm. GSV at knee measures 0.56 x 0.61 cm. GSV INCOMPETENT throughout for greater than GSV below knee is INCOMPETENT for greater 0.5 seconds. than 0.5 seconds. ASV at knee is INCOMPETENT for greater than ASV distal thigh is INCOMPETENT for greater 0.5 seconds and measures 0.54 x 0.58 cm. than 0.5 seconds and measures 0.75 x 0.81 cm. ASV proximal calf is INCOMPETENT for greater INCOMPETENT Mobility Specialist noted 19 cm above than 0.5 seconds and measures 0.44 x 0.49 cm. medial malleolus. ASV from junction is INCOMPETENT for greater SSV proximal calf is INCOMPETENT for greater than 0.5 seconds and measures 0.58 x 0.57 cm. than 0.5 seconds and measures 0.25 x 0.21 cm. SSV was not visualized. Procedure This is a venous duplex using B-mode, color flow and spectral Doppler. Exam performed in department. A preliminary report was called and/or faxed to . VL/Venous Duplex US - [place] Extrem Interpretation Summary Deep veins of the lower extremities are bilaterally patent and compressible seg mentally. There is no evidence of deep vein thrombosis on either side. Valvular competence appears in tact within the proximal deep venous systems bilaterally. The great saphenous veins appear bila terally patent and compressible segmentally. The right sapheno-femoral junction is incompetent . T he left sapheno- femoral junction is competent . The right great saphenous vein appears segmenta lly incompetent. The left great saphenous vein appears competent above the knee. The left great saph enous vein appears incompetent below the knee. The right small saphenous vein was not visualized. The left small saphenous vein is patent and incompetent. The accessory saphenous vein at the r ight sapheno-femoral junction is incompetent. The accessory saphenous vein at the right knee is inco mpetent. The accessory saphenous vein in the righ proximal calf is incompetent. The accessor y saphenous vein in the left distal thigh is incompetent. An incompetent business banker vein is noted i n the left calf, located 19 centimeters proximal to the left medial malleolus. Ordering Physician: Linda Acuna Referring Physician: Chalo Mclean Chi Performed By: Susie Rodrigues, BOB, RVT
--- NOTE | 2022-04-01 12:57 | ART_ITS ---
Reason For Study: Absent doralis pedal pulses bilateral Procedure A bilateral lower extremity continuous wave Doppler with analog waveform analysis,segmental pressures,and ankle brachial indexes without exercise. Left Segmental Pressures Left brachial= 177mmHg. Left posterior tibial artery = 213mmHg. Left dorsalis pedis artery = 221mmHg. Left digit = 156 mmHg. The left dorsalis pedis waveforms are triphasic. The left posterior tibial artery waveforms are triphasic. Right Segmental Pressures Right brachial= 159mmHg. Right posterior tibial artery = 229mmHg. Right dorsalis pedis artery = 204mmHg. Right digit = 187 mmHg. The right dorsalis pedis waveforms are triphasic. The right posterior tibial artery waveforms are triphasic. Indices The right ankle brachial index by the dorsalis pedis is 1.15. The right ankle brachial index by the posterior tibial artery is 1.29. The right digital-brachial index is 1.06. The left ankle brachial index by the dorsalis pedis is 1.25. The left ankle brachial index by the posterior tibial artery is 1.20. The left digital-brachial index is 0.88. VL/Lower Ext Art Exam w/o Exercis Interpretation Summary Triphasic Doppler waveforms are noted at ankle level bilaterally. Pulse-volume recordings appear satisfactory at all levels bilaterally. Resting ankle-brachial indices are norm al bilaterally. Digital-brachial indices are normal bilaterally. There is no evidence of significant arterial occlusive disease in the lower ext remities bilaterally. Ordering Physician: Linda Acuna Referring Physician: Chalo Mclean Chi Performed By: Susie Rodrigues, BOB, RVT
== END | disposition home or self-care (01) ==
PROVIDERS: PCP Family Medicine Geriatric Medicine; Referring Provider Nurse Practitioner Family; Visit Provider Nurse Practitioner Family
DX: L97.919 Non-pressure chronic ulcer of unspecified part of right lower leg with unspecified severity (principal); R60.0 Localized edema
CPT/HCPCS: 93923; 93970

== ENCOUNTER → 2022-04-13 | Outpatient (CLI) | payer MEDICAID, SELFPAY ==
--- NOTE | 2022-04-13 14:03 | ECHOCS_ITS ---
Reason For Study: CHF Procedure This was a 2D Doppler, Color Flow transthoracic echocardiogram. The study was technically difficult. Contrast injection was performed. Exam performed in department. Left Ventricle Based upon the 2D echocardiographic and contrast images obtained there appears to be grossly normal left ventricular size, wall motion, and systolic function. The estimated ejection fraction is 55 %. No evidence for diastolic dysfunction. Right Ventricle Based upon the 2D echocardiographic images obtained there appears to be grossly normal right ventricular size and systolic function. Atria Normal left atrium. Normal right atrium. No doppler evidence for ASD. Mitral Valve There is no mitral annular calcification. Mitral valve not well visualized. Tricuspid Valve The tricuspid valve is not well visualized. Aortic Valve The aortic valve is not well visualized. Pulmonic Valve The pulmonic valve is not well visualized. Great Vessels The aortic root is not well visualized. Pericardium/Pleural No pericardial effusion. Medication 20 gauge I.V. with prn adaptor inserted into right arm. Diluted definity 3ml given slow IV push to enhance endocardial definition. Time Measurements MV dec time: 0.18 sec Doppler Measurements & Calculations MV E max kael: 84.2 cm/sec Lat Peak E' Kael: 14.0 cm/sec Med Peak E' Kael: 12.0 cm/sec MV A max kael: 79.4 cm/sec E/E' lat: 6.0 E/E' med: 7.0 MV E/A: 1.1 MV V2 max: 117.3 cm/sec MV P1/2t max kael: 117.3 cm/sec Ao V2 max: 107.9 cm/sec MV max P.5 mmHg MV P1/2t: 70.5 msec Ao max P.7 mmHg MV V2 mean: 67.5 cm/sec MV mean P.2 mmHg MV dec slope: 487.7 cm/sec2 MV V2 VTI: 30.3 cm MVA(P1/2t): 3.1 cm2 LV V1 max: 97.8 cm/sec LV V1 max P.8 mmHg ECHO/Echo Complete W/ Contrast Interpretation Summary The study was technically difficult. Contrast injection was performed. Based upon the 2D echocardiographic and contrast images obtained there appears to be grossly normal left ventricular size, wall motion, and systolic function. The estimated ejection fraction is 55 %. No evidence for diastolic dysfunction. Ordering Physician: Mitchell Rodrigues Referring Physician: Chalo Mclean Chi Performed By: Jim Yarbrough RCS
[2022-04-13 17:19] LABS: Anion Gap 7 (5-15); BUN 8 mg/dL (7-18); BUN/Creat Ratio 12.5 RATIO (10-20); Chloride 93 mmol/L (98-107); Creatinine, Serum 0.64 mg/dL (0.70-1.30); EST Glomerular Filtration Rate 135 mL/min (>60); Est Glom Filt Rate - Afr Amer 163 mL/min (>60); Glucose 93 mg/dL (74-106); Potassium 4.6 mmol/L (3.5-5.1); Sodium Level 130 mmol/L (136-145)
== END | disposition home or self-care (01) ==
PROVIDERS: PCP Family Medicine Geriatric Medicine; Referring Provider Nurse Practitioner Family; Visit Provider Nurse Practitioner Family
DX: I50.9 Heart failure, unspecified (principal); I48.0 Paroxysmal atrial fibrillation
CPT/HCPCS: 93306; 36415; 80048; Q9957; A4216; C8929

== ENCOUNTER 2022-04-20 14:45 | Outpatient (RCR) | payer MEDICAID, SELFPAY ==
[2022-03-23 14:00] VITALS: BP 176/89; PULSE 80; TEMP 36.8
--- NOTE | 2022-03-23 14:41 | PCM.WC.PN ---
History of Present Illness Date of Service: 03/23/22 Chief Complaint: Right medial leg ulcer History of Wound: 61 year old male presents with right medial leg ulcers that occurred after he had blisters that formed and then drained starting in November. He has a history of having leg ulcers in the past. He states that he is waiting for vascular studies ordered by his neurologist, Dr. Farris because he was not able to palpate a pulse in his foot at his last appointment. He states he has been placing adaptic and gauze over the the ulcers that he had left over from his last ulcer that healed. He had MICHELLE 11/24/20 which showed right MICHELLE - 1.14 and left MICHELLE 1.04, both with triphasic waveforms. Patient has a history of over 250 lb weight loss after a Malik-en-Y bariatric surgery in the in [place]. He also has a history of gout, afib, alcohol use of 4-6 cans of beer a few times a week. He has his medical marijuana card. Patient states he doesn't eat much because of his gastric bypass surgery, he typically drinks most of his calories, including a 1/2 of gallon of skim milk per day. He typically sleeps sitting in a chair. Wound care - Poppy covered by gauze or a super absorber. Either HILL wrap or tubigrip for compression. Today he denies having a temperature, fever, chills, nausea, vomiting. Progress of Wound: Patient has not been wearing his compression this past week. His health aid has been ill and he has not been able to put his HILL wrap on after it came off. His edema is severe today and his lower extremities are weeping. His right medial leg cluster ulcer is stable and oozing serous drainage. Objective Data Objective Data Vital Signs: Vital Signs Temp Pulse BP 98.2 F 80 176/89 H 03/23/22 14:00 03/23/22 14:00 03/23/22 14:00 Charges/Coding Procedures Integumentary 111xxx-113xx: [id number] Linda subq tissue 20 sq cm/< Physical Exam Const alert, oriented x3 and no apparent distress HEENT normocephalic Resp normal respiratory effort Cardio regular rate Extremity normal capillary refill Extremity Narrative: Severe bilateral lower extremity edema, +4 pitting, weeping legs. Bilateral pedal pulses are +2. Skin Wound Narrative: Right medial leg cluster ulcer is stable with fibrous tissue in the base. It is oozing clear serous fluid due the the severity of his edema. Neuro CN's II-XII intact bilaterally Psych affect normal Debridement Note Debridement Note Wound debrided: medial leg ulcer cluster Laterality: Right Type of Debridement: Excisional debridement Anesthesia Used: 5% Lidocaine Gel Depth: Down to and including healthy tissue and in the subcutaneous layer Percentage of wound debrided: 100 Instrument Used: 3mm curette Tissue Removed: Non viable tissue and slough Severity: Fat Layer Exposed Amount of bleeding with debridement: Mild Bleeding Controlled with: Pressure and Compression and gauze Patient tolerated procedure: Patient tolerated procedure well Debridement Free Text: Mild amount of bleeding present after debridement but there was a moderate to large amount of serous drainage present, most likely due to the amount of edema present. Post-Debridement Measurements and Additional Note: Post-Debridement Measurements/Treatment YULIA - Nurse 1 - General Ulcer Assessment Start: 03/23/22 13:59 Freq: Status: Active Protocol: STEW Activity Type Activity Date Activity User E-sign Co-sign Detail Recorded Client Recorded Date Recorded By Document 03/23/22 14:00 SKY [id number] 03/23/22 14:02 SKY 03/23/22 14:00 - Today's Visit Information Type of service Follow-up Visit (Physician/PERFORMANCE TEST ARCHITECT ) Arrival Mode Ambulatory,Cane Patient Identification Verified (Name & Yes ) Vital Signs Temperature (97.8 F-99.1 F) 98.2 F Temperature Source Temporal Pulse Rate (60-100) 80 Pulse Location Monitor Blood Pressure (90/60-120/80) 176/89 H Blood Pressure Mean (mm Hg) 118 Source Monitor Position Sitting Blood Pressure Location Right Arm History Since Last Visit- (Skip if this is Patient's initial visit) Have you changed medications since your No last visit? Any new allergies or adverse reactions No Had a fall/change in ADL's that may No increase risk of falls Signs or symptoms of abuse and/or No neglect since last visit Have you been in the hospital since your No last visit? Has dressing in place as prescribed Yes Has compression in place as prescribed N/A Has offloadiing in place as prescribed N/A Experienced any changes in pain level or No management Left Footwear Regular Shoe Right Footwear Regular Shoe Pain Scale: 0-10 Numeric Is Patient Pain Free? Yes - Nurse 1 - General Ulcer Measurement Start: 03/23/22 13:59 Freq: Status: Active Protocol: Activity Type Activity Date Activity User E-sign Co-sign Detail Recorded Client Recorded Date Recorded By Document 03/23/22 14:00 SKY [id number] 03/23/22 14:02 SKY 03/23/22 14:00 Wound Center Nurse 1 #3 Right medial Sandy -Current Size (cm) - Length 2.1 -Current Size (cm) - Width 0.5 -Current Size (cm) - Depth 0.1 -Total Square Cm 1.05 -Exudate Amt Small -Exudate Type Serosanguineous -Wound Margin Distinct, Outline Attached -Granulation Amt Medium (34-66%) -Granulation Quality [place] -Necrosis Amt Small (1-33%) -Necrotic Tissue Type Adherent Slough -Texture (Candy-wound Skin Appearance) Assessed, Scarring -Moisture (Candy-wound Skin Appearance) No Abnormality, Assessed -Color (Candy-wound Skin Appearance) No Abnormality, Assessed -Temperature (Candy-wound Skin No Abnormality Appearance) (Pt Warm) -Tenderness on Palpation (Candy-wound No Skin Appearance) -Ulcer Cleansing Rinsed/ Irrigated with Saline -Foul Odor after Cleansing No -Anesthetic Used 5% Lidocaine Gel - Nurse 2 - General Ulcer CM Notes Start: 03/23/22 13:59 Freq: Status: Active Protocol: Activity Type Activity Date Activity User E-sign Co-sign Detail Recorded Client Recorded Date Recorded By Document 03/23/22 14:23 SKIP [id number] 03/23/22 14:24 PL 03/23/22 14:23 Wound Center Nurse 2 #2- R KNEE POST TRAUMA -Procedure Performed No -Wound/Ulcer Outcome Healed- Epithelialized #3 Right medial Sandy -Time 14:07 -Correct Patient Yes -Correct Side, Site, Position Yes -Correct Procedure Yes -Procedure Performed Yes -Type of Procedure Debridement -Clinical Debridement Subcutaneous -Tissue Removed Subcutaneous -Post Debridement (cm) - Length 2.8 -Post Debridement (cm) - Width 1.6 -Post Debridement (cm) - Depth 0.2 -Total Square (Post) (cm) 4.48 -Area of Debridement (cm) - Length 2.8 -Area of Debridement (cm) - Width 1.6 -Total Square (Area) (cm) 4.48 -Tunneling No -Undermining/Tunneling No -Circular Undermining No -Wound/Ulcer Outcome Not Healed -Ulcer Cleansing Rinsed/ Irrigated with Saline -Foul Odor after Cleansing No -Bioengineered Tissue No -Bleeding Controlled with Pressure -Treatment Response Procedure Tolerated Well -Debridement - Subq, 1st 20sq cm Yes Pain Scale: 0-10 Numeric Is Patient Pain Free? Yes Assessment/Plan Assessment/Plan (1) Ulcer of right lower extremity: CODE(S): L97.919 - Non-pressure chronic ulcer of unspecified part of right lower leg with unspecified severity (2) Edema of both lower extremities: CODE(S): R60.0 - Localized edema (3) Decreased pedal pulses: CODE(S): R09.89 - Other specified symptoms and signs involving the circulatory and respiratory systems PLAN: Plan Patient was seen and evaluated at the wound healing center today. A subcutaneous debridement was performed as documented. Patient has MICHELLE test scheduled for March by his neurologist, Dr. Farris. I would like both venous and arterial studies performed for further evaluation of his vascular status. I did let Dr. Farris know that I changed the orders but they will include MICHELLE. Wound care - Right medial leg ulcer Poppy topped with gauze/super absorber. He should wash the ulcer cluster daily with soap and water before doing the dressing change. HILL wrap or tubigrip for compression. Stressed the importance of actually wearing his compression. Encouraged him to elevate legs when sitting. Avoid dangling feet and legs to help prevent edema. Encouraged increase protein intake and Vitamin C to help promote wound healing. Encouraged him to decrease the amount of alcohol intake. Follow up one week.
[2022-03-30 13:23] VITALS: BP 150/94; PULSE 82; RESP 18; TEMP 36.7
--- NOTE | 2022-03-30 15:51 | PN.PCM_ITS ---
History of Present Illness Date of Service: 03/30/22 Chief Complaint: Right medial leg ulcer History of Wound: 61 year old male presents with right medial leg ulcers that occurred after he had blisters that formed and then drained starting in November. He has a history of having leg ulcers in the past. He states that he is waiting for vascular studies ordered by his neurologist, Dr. Farris because he was not able to palpate a pulse in his foot at his last appointment. He states he has been placing adaptic and gauze over the the ulcers that he had left over from his last ulcer that healed. He had MICHELLE 11/24/20 which showed right MICHELLE - 1.14 and left MICHELLE 1.04, both with triphasic waveforms. Patient has a history of over 250 lb weight loss after a Malik-en-Y bariatric surgery in the in [place]. He also has a history of gout, afib, alcohol use of 4-6 cans of beer a few times a week. He has his medical marijuana card. Patient states he doesn't eat much because of his gastric bypass surgery, he typically drinks most of his calories, including a 1/2 of gallon of skim milk per day. He typically sleeps sitting in a chair. Wound care - Poppy covered by gauze or a super absorber. Either tubigrip for compression. Today he denies having a temperature, fever, chills, nausea, vomiting. Progress of Wound: Patient is not wearing his compression. He has +4 pitting edema with some areas of weeping. Hies right medial leg ulcer cluster is stable. He oozes a significant amount of serosanguineous drainage from the ulcers due to his significant amount of edema. Objective Data Objective Data Vital Signs: Vital Signs Temp Pulse Resp BP 98.0 F 82 18 150/94 H 03/30/22 13:23 03/30/22 13:23 03/30/22 13:23 03/30/22 13:23 Charges/Coding Procedures Integumentary 111xxx-113xx: [id number] Linda subq tissue 20 sq cm/< Physical Exam Const alert, oriented x3 and no apparent distress HEENT normocephalic Resp normal respiratory effort Cardio regular rate Extremity normal capillary refill Extremity Narrative: Severe bilateral lower extremity edema, +4 pitting, weeping legs. Bilateral pedal pulses are +2. Skin Wound Narrative: Right medial leg cluster ulcer is stable with a pink base. It is oozing clear serous fluid due the the severity of his edema. Neuro CN's II-XII intact bilaterally Psych affect normal Debridement Note Debridement Note Wound debrided: medial leg ulcer cluster Laterality: Right Type of Debridement: Excisional debridement Anesthesia Used: 5% Lidocaine Gel Depth: Down to and including healthy tissue and in the subcutaneous layer Percentage of wound debrided: 100 Instrument Used: 3mm curette Tissue Removed: Non viable tissue and slough Severity: Fat Layer Exposed Amount of bleeding with debridement: Mild Bleeding Controlled with: Pressure and Compression and gauze Patient tolerated procedure: Patient tolerated procedure well Debridement Free Text: Mild amount of bleeding present after debridement but there was a moderate to large amount of serous drainage present, most likely due to the amount of edema present. Post-Debridement Measurements and Additional Note: Post-Debridement Measurements/Treatment - Nurse 1 - General Ulcer Assessment Start: 03/23/22 13:59 Freq: Status: Active Protocol: STEW Activity Type Activity Date Activity User E-sign Co-sign Detail Recorded Client Recorded Date Recorded By Document 03/23/22 14:00 KR [id number] 03/23/22 14:02 KR Document 03/30/22 13:23 PL [id number] 03/30/22 13:29 PL 03/23/22 03/30/22 14:00 13:23 - Today's Visit Information Type of service Follow-up Visit Follow-up Visit (Physician/INCIDENT RESPONSE LEAD (Physician/INCIDENT RESPONSE LEAD ) ) Arrival Mode Ambulatory,Cane Cane Transfer Assistance None Patient Identification Verified (Name & Yes Yes ) Patient Requires Transmission-Based No Precautions Safety Precautions NA Vital Signs Temperature (97.8 F-99.1 F) 98.2 F 98.0 F Temperature Source Temporal Temporal Pulse Rate (60-100) 80 82 Pulse Location Monitor Respiratory Rate (12-18) 18 Blood Pressure (90/60-120/80) 176/89 H 150/94 H Blood Pressure Mean (mm Hg) 118 112 Source Monitor Position Sitting Blood Pressure Location Right Arm History Since Last Visit- (Skip if this is Patient's initial visit) Have you changed medications since your No No last visit? Any new allergies or adverse reactions No No Had a fall/change in ADL's that may No No increase risk of falls Signs or symptoms of abuse and/or No No neglect since last visit Have you been in the hospital since your No No last visit? Has dressing in place as prescribed Yes Yes Has compression in place as prescribed N/A Yes Has offloadiing in place as prescribed N/A Yes Experienced any changes in pain level or No No management Left Footwear Regular Shoe Right Footwear Regular Shoe Pain Scale: 0-10 Numeric Is Patient Pain Free? Yes Yes WC - Nurse 1 - General Ulcer Measurement Start: 03/23/22 13:59 Freq: Status: Active Protocol: Activity Type Activity Date Activity User E-sign Co-sign Detail Recorded Client Recorded Date Recorded By Document 03/23/22 14:00 KR [id number] 03/23/22 14:02 KR Document 03/30/22 13:23 PL [id number] 03/30/22 13:29 PL 03/23/22 03/30/22 14:00 13:23 Wound Center Nurse 1 #3 Right medial Sandy -Combined with other wound No -Current Size (cm) - Length 2.1 3.8 -Current Size (cm) - Width 0.5 0.5 -Current Size (cm) - Depth 0.1 0.1 -Total Square Cm 1.05 1.90 -Epithelialization Small 1-33% -Tunneling No -Undermining/Tunneling No -Circular Undermining No -Classification - Thickness Partial Thickness -Exudate Amt Small Medium -Exudate Type Serosanguineous Serosanguineous -Wound Margin Distinct, Outline Attached -Granulation Amt Medium (34-66%) Large (67-100%) -Granulation Quality [place] -Slough/Fibrin Yes -Necrosis Amt Small (1-33%) Small (1-33%) -Necrotic Tissue Type Adherent Slough Adherent Slough -Texture (Candy-wound Skin Appearance) Assessed, Scarring -Moisture (Candy-wound Skin Appearance) No Abnormality, Assessed -Color (Candy-wound Skin Appearance) No Abnormality, Assessed -Temperature (Candy-wound Skin No Abnormality Appearance) (Pt Warm) -Tenderness on Palpation (Candy-wound No Skin Appearance) -Ulcer Cleansing Rinsed/ Rinsed/ Irrigated with Irrigated with Saline Saline -Foul Odor after Cleansing No No -Anesthetic Used 5% Lidocaine 5% Lidocaine Gel Gel WC - Nurse 2 - General Ulcer CM Notes Start: 03/23/22 13:59 Freq: Status: Active Protocol: Activity Type Activity Date Activity User E-sign Co-sign Detail Recorded Client Recorded Date Recorded By Document 03/23/22 14:23 PL [id number] 03/23/22 14:24 PL Document 03/30/22 14:10 MW [id number] 03/30/22 14:13 MW 03/23/22 03/30/22 14:23 14:10 Wound Center Nurse 2 #2- R KNEE POST TRAUMA -Procedure Performed No -Wound/Ulcer Outcome Healed- Epithelialized #3 Right medial Sandy -Time 14:07 14:11 -Correct Patient Yes Yes -Correct Side, Site, Position Yes Yes -Correct Procedure Yes Yes -Procedure Performed Yes Yes -Type of Procedure Debridement Debridement -Clinical Debridement Subcutaneous Subcutaneous -Tissue Removed Subcutaneous Subcutaneous -Post Debridement (cm) - Length 2.8 2.7 -Post Debridement (cm) - Width 1.6 0.3 -Post Debridement (cm) - Depth 0.2 0.2 -Total Square (Post) (cm) 4.48 0.81 -Area of Debridement (cm) - Length 2.8 2.7 -Area of Debridement (cm) - Width 1.6 0.3 -Total Square (Area) (cm) 4.48 0.81 -Tunneling No No -Undermining/Tunneling No No -Circular Undermining No No -Wound/Ulcer Outcome Not Healed Not Healed -Ulcer Cleansing Rinsed/ Rinsed/ Irrigated with Irrigated with Saline Saline -Foul Odor after Cleansing No No -Bioengineered Tissue No No -Bleeding Controlled with Pressure Pressure -Treatment Response Procedure Procedure Tolerated Well Tolerated Well -Offloading No -Debridement - Subq, 1st 20sq cm Yes Yes Pain Scale: 0-10 Numeric Is Patient Pain Free? Yes Yes WC - Nurse 3 - General Ulcer D/C NN Start: 03/23/22 13:59 Freq: Status: Active Protocol: Activity Type Activity Date Activity User E-sign Co-sign Detail Recorded Client Recorded Date Recorded By Document 03/30/22 14:13 MW [id number] 03/30/22 14:14 MW 03/30/22 14:13 Wound Care Nurse 3 #3 Right medial Sandy -Ulcer Cleansing Rinsed/ Irrigated with Saline -Foul Odor after Cleansing No -Negative Pressure Wound Therapy N/A -Primary Dressing Applied Optilok 8x12, Promogran Poppy Matter -Primary Dressing Covered/Secured with Dry Gauze & Roll Gauze, Secured with Tape -Optilok 8x12 1 -Promogran Poppy Matter 1 Treatment Response Procedure Tolerated Well Pain Scale: 0-10 Numeric Is Patient Pain Free? Yes Teaching: Wound Center Dressing Your Wound -Person Taught Patient -Teaching Method Discussion, Demonstration -Response to teaching Verbalize understanding WC - Visit Discharge Discharge Condition Stable Ambulatory Status Ambulatory Transportation Private Auto Accompanied by CAREGIVER Medication Reconcilliation completed & No provided to patient/care provider Clinical Summary of Care Provided Yes Assessment/Plan Assessment/Plan (1) Ulcer of right lower extremity: CODE(S): L97.919 - Non-pressure chronic ulcer of unspecified part of right lower leg with unspecified severity (2) Edema of both lower extremities: CODE(S): R60.0 - Localized edema (3) Decreased pedal pulses: CODE(S): R09.89 - Other specified symptoms and signs involving the circulatory and respiratory systems PLAN: Plan Patient was seen and evaluated at the wound healing center today. A subcutaneous debridement was performed as documented. Patient has MICHELLE test scheduled for March by his neurologist, Dr. Farris. I would like both venous and arterial studies performed for further evaluation of his vascular status. I did let Dr. Farris know that I changed the orders but they will include MICHELLE. Wound care - Right medial leg ulcer Poppy topped with gauze/super absorber. He should wash the ulcer cluster daily with soap and water before doing the dressing change. Tubigrip for compression. Stressed the importance of actually wearing his compression. Encouraged him to elevate legs when sitting. Avoid dangling feet and legs to help prevent edema. Encouraged increase protein intake and Vitamin C to help promote wound healing. Encouraged him to decrease the amount of alcohol intake. Follow up one week.
[2022-04-06 13:41] VITALS: BP 155/95; TEMP 36.6
--- NOTE | 2022-04-06 15:45 | PCM.WC.PN ---
History of Present Illness Date of Service: 04/06/22 Chief Complaint: Right medial leg ulcer History of Wound: 61 year old male presents with right medial leg ulcers that occurred after he had blisters that formed and then drained starting in November. He has a history of having leg ulcers in the past. He states that he is waiting for vascular studies ordered by his neurologist, Dr. Farris because he was not able to palpate a pulse in his foot at his last appointment. He states he has been placing adaptic and gauze over the the ulcers that he had left over from his last ulcer that healed. He had MICHELLE 11/24/20 which showed right MICHELLE - 1.14 and left MICHELLE 1.04, both with triphasic waveforms. Patient has a history of over 250 lb weight loss after a Malik-en-Y bariatric surgery in the in [place]. He also has a history of gout, afib, alcohol use of 4-6 cans of beer a few times a week. He has his medical marijuana card. Patient states he doesn't eat much because of his gastric bypass surgery, he typically drinks most of his calories, including a 1/2 of gallon of skim milk per day. He typically sleeps sitting in a chair. Venous studies done 04/01/22 which showed The right sapheno-femoral junction is incompetent . The right great saphenous vein appears segmentally incompetent. The left great saphenous vein appears incompetent below the knee. The right small saphenous vein was not visualized. The left small saphenous vein is patent and incompetent. The accessory saphenous vein at the right sapheno-femoral junction is incompetent. The accessory saphenous vein at the right knee is incompetent. The accessory saphenous vein in the right proximal calf is incompetent. The accessory saphenous vein in the left distal thigh is incompetent. An incompetent instructional systems design consultant vein is noted in the left calf, located 19 centimeters proximal to the left medial malleolus. Arterial studies completed on 04/01/22 - Showed triphasic doppler waveforms at ankle level bilaterally. Right MICHELLE by dorsalis pedis is 1.15, Left MICHELLE by dorsalis pedis 1.25. There is no evidence of significant arterial occlusive disease in the lower extremities bilaterally. Wound care - Collagen hydrogel covered with adaptic and topped with gauze. Compression - Double tubigrip topped with HILL wrap. Today he denies having a temperature, fever, chills, nausea, vomiting. Progress of Wound: His right medial leg ulcer cluster is slightly improved. He continues to have significant edema. Now that we have vascular studies, we should be able to get more aggressive with compression. Objective Data Objective Data Vital Signs: Vital Signs Temp Pulse Resp BP 97.8 F 82 18 155/95 H 04/06/22 13:41 03/30/22 13:23 03/30/22 13:23 04/06/22 13:41 Charges/Coding Procedures Integumentary 111xxx-113xx: [id number] Linda subq tissue 20 sq cm/< Physical Exam Const alert, oriented x3 and no apparent distress HEENT normocephalic Resp normal respiratory effort Cardio regular rate Extremity normal capillary refill Extremity Narrative: Severe bilateral lower extremity edema, +4 pitting, weeping legs. Bilateral pedal pulses are +2. Skin Wound Narrative: Right medial leg cluster ulcer is smaller with a pink base. It is oozing clear serous fluid due the the severity of his edema. Neuro CN's II-XII intact bilaterally Psych affect normal Debridement Note Debridement Note Wound debrided: medial leg ulcer cluster Laterality: Right Type of Debridement: Excisional debridement Anesthesia Used: 5% Lidocaine Gel Depth: Down to and including healthy tissue and in the subcutaneous layer Percentage of wound debrided: 100 Instrument Used: 3mm curette Tissue Removed: Non viable tissue and slough Severity: Fat Layer Exposed Amount of bleeding with debridement: Mild Bleeding Controlled with: Pressure and Compression and gauze Patient tolerated procedure: Patient tolerated procedure well Post-Debridement Measurements and Additional Note: Post-Debridement Measurements/Treatment - Nurse 1 - General Ulcer Assessment Start: 03/23/22 13:59 Freq: Status: Active Protocol: [email or web address] Activity Type Activity Date Activity User E-sign Co-sign Detail Recorded Client Recorded Date Recorded By Document 03/23/22 14:00 KR [id number] 03/23/22 14:02 KR Document 03/30/22 13:23 PL [id number] 03/30/22 13:29 PL Document 04/06/22 13:41 KR [id number] 04/06/22 13:44 KR 03/23/22 03/30/22 04/06/22 14:00 13:23 13:41 - Today's Visit Information Type of service Follow-up Visit Follow-up Visit Follow-up Visit (Physician/CIGARETTE BOOK MAKER (Physician/CIGARETTE BOOK MAKER (Physician/CIGARETTE BOOK MAKER ) ) ) Arrival Mode Ambulatory,Cane Cane Ambulatory Transfer Assistance None Patient Identification Verified (Name & Yes Yes Yes ) Patient Requires Transmission-Based No Precautions Safety Precautions NA Vital Signs Temperature (97.8 F-99.1 F) 98.2 F 98.0 F 97.8 F Temperature Source Temporal Temporal Temporal Pulse Rate (60-100) 80 82 Pulse Location Monitor Monitor Respiratory Rate (12-18) 18 Blood Pressure (90/60-120/80) 176/89 H 150/94 H 155/95 H Blood Pressure Mean (mm Hg) 118 112 115 Source Monitor Monitor Position Sitting Semi-Fowlers Blood Pressure Location Right Arm Right Arm History Since Last Visit- (Skip if this is Patient's initial visit) Have you changed medications since your No No No last visit? Any new allergies or adverse reactions No No No Had a fall/change in ADL's that may No No No increase risk of falls Signs or symptoms of abuse and/or No No No neglect since last visit Have you been in the hospital since your No No No last visit? Has dressing in place as prescribed Yes Yes Yes Has compression in place as prescribed N/A Yes N/A Has offloadiing in place as prescribed N/A Yes N/A Experienced any changes in pain level or No No No management Left Footwear Regular Shoe Regular Shoe Right Footwear Regular Shoe Regular Shoe Pain Scale: 0-10 Numeric Is Patient Pain Free? Yes Yes Yes - Nurse 1 - General Ulcer Measurement Start: 03/23/22 13:59 Freq: Status: Active Protocol: Activity Type Activity Date Activity User E-sign Co-sign Detail Recorded Client Recorded Date Recorded By Document 03/23/22 14:00 KR [id number] 03/23/22 14:02 KR Document 03/30/22 13:23 PL [id number] 03/30/22 13:29 PL Document 04/06/22 13:41 KR [id number] 04/06/22 13:44 KR 03/23/22 03/30/22 04/06/22 14:00 13:23 13:41 Wound Center Nurse 1 #3 Right medial Sandy -Combined with other wound No -Current Size (cm) - Length 2.1 3.8 0.1 -Current Size (cm) - Width 0.5 0.5 0.1 -Current Size (cm) - Depth 0.1 0.1 0.1 -Total Square Cm 1.05 1.90 0.01 -Epithelialization Small 1-33% -Tunneling No -Undermining/Tunneling No -Circular Undermining No -Classification - Thickness Partial Thickness -Exudate Amt Small Medium Small -Exudate Type Serosanguineous Serosanguineous Serosanguineous -Wound Margin Distinct, Distinct, Outline Outline Attached Attached -Granulation Amt Medium (34-66%) Large (67-100%) Large (67-100%) -Granulation Quality [place] -Slough/Fibrin Yes -Necrosis Amt Small (1-33%) Small (1-33%) None Present (0 %) -Necrotic Tissue Type Adherent Slough Adherent Slough -Texture (Candy-wound Skin Appearance) Assessed, Assessed, Scarring Scarring -Moisture (Candy-wound Skin Appearance) No Abnormality, No Abnormality, Assessed Assessed -Color (Candy-wound Skin Appearance) No Abnormality, No Abnormality, Assessed Assessed -Temperature (Candy-wound Skin No Abnormality Appearance) (Pt Warm) -Tenderness on Palpation (Candy-wound No No Skin Appearance) -Ulcer Cleansing Rinsed/ Rinsed/ Rinsed/ Irrigated with Irrigated with Irrigated with Saline Saline Saline -Foul Odor after Cleansing No No No -Anesthetic Used 5% Lidocaine 5% Lidocaine 5% Lidocaine Gel Gel Gel Right Calf (cm) 48 Right Ankle (cm) 31 WC - Nurse 2 - General Ulcer CM Notes Start: 03/23/22 13:59 Freq: Status: Active Protocol: Activity Type Activity Date Activity User E-sign Co-sign Detail Recorded Client Recorded Date Recorded By Document 03/23/22 14:23 PL [id number] 03/23/22 14:24 PL Document 03/30/22 14:10 MW [id number] 03/30/22 14:13 MW Document 04/06/22 14:09 MW [id number] 04/06/22 14:19 MW 03/23/22 03/30/22 04/06/22 14:23 14:10 14:09 Wound Center Nurse 2 #2- R KNEE POST TRAUMA -Procedure Performed No -Wound/Ulcer Outcome Healed- Epithelialized #3 Right medial Sandy -Time 14:07 14:11 14:10 -Correct Patient Yes Yes Yes -Correct Side, Site, Position Yes Yes Yes -Correct Procedure Yes Yes Yes -Procedure Performed Yes Yes Yes -Type of Procedure Debridement Debridement Debridement -Clinical Debridement Subcutaneous Subcutaneous Subcutaneous -Tissue Removed Subcutaneous Subcutaneous Subcutaneous -Post Debridement (cm) - Length 2.8 2.7 0.2 -Post Debridement (cm) - Width 1.6 0.3 0.2 -Post Debridement (cm) - Depth 0.2 0.2 0.1 -Total Square (Post) (cm) 4.48 0.81 0.04 -Area of Debridement (cm) - Length 2.8 2.7 0.2 -Area of Debridement (cm) - Width 1.6 0.3 0.2 -Total Square (Area) (cm) 4.48 0.81 0.04 -Tunneling No No No -Undermining/Tunneling No No No -Circular Undermining No No No -Wound/Ulcer Outcome Not Healed Not Healed Not Healed -Ulcer Cleansing Rinsed/ Rinsed/ Rinsed/ Irrigated with Irrigated with Irrigated with Saline Saline Saline -Foul Odor after Cleansing No No No -Bioengineered Tissue No No No -Bleeding Controlled with Pressure Pressure Pressure -Treatment Response Procedure Procedure Procedure Tolerated Well Tolerated Well Tolerated Well -Offloading No No -Debridement - Subq, 1st 20sq cm Yes Yes Yes Pain Scale: 0-10 Numeric Is Patient Pain Free? Yes Yes Yes - Nurse 3 - General Ulcer D/C NN Start: 03/23/22 13:59 Freq: Status: Active Protocol: Activity Type Activity Date Activity User E-sign Co-sign Detail Recorded Client Recorded Date Recorded By Document 03/30/22 14:13 MW [id number] 03/30/22 14:14 MW 03/30/22 14:13 Wound Care Nurse 3 #3 Right medial Sandy -Ulcer Cleansing Rinsed/ Irrigated with Saline -Foul Odor after Cleansing No -Negative Pressure Wound Therapy N/A -Primary Dressing Applied Optilok 8x12, Promogran Poppy Matter -Primary Dressing Covered/Secured with Dry Gauze & Roll Gauze, Secured with Tape -Optilok 8x12 1 -Promogran Poppy Matter 1 Treatment Response Procedure Tolerated Well Pain Scale: 0-10 Numeric Is Patient Pain Free? Yes Teaching: Wound Center Dressing Your Wound -Person Taught Patient -Teaching Method Discussion, Demonstration -Response to teaching Verbalize understanding WC - Visit Discharge Discharge Condition Stable Ambulatory Status Ambulatory Transportation Private Auto Accompanied by CAREGIVER Medication Reconcilliation completed & No provided to patient/care provider Clinical Summary of Care Provided Yes Assessment/Plan Assessment/Plan (1) Ulcer of right lower extremity: CODE(S): L97.919 - Non-pressure chronic ulcer of unspecified part of right lower leg with unspecified severity (2) Edema of both lower extremities: CODE(S): R60.0 - Localized edema (3) Decreased pedal pulses: CODE(S): R09.89 - Other specified symptoms and signs involving the circulatory and respiratory systems (4) Venous (peripheral) insufficiency: CODE(S): I87.2 - Venous insufficiency (chronic) (peripheral) PLAN: Plan Patient was seen and evaluated at the wound healing center today. A subcutaneous debridement was performed as documented. Vascular studies completed on 04/01/22. MICHELLE right = 1.15, left = 1.25. Wound care - Right medial leg ulcer cluster collagen hydrogel covered with adaptic and topped with gauze daily. He should wash the ulcer cluster daily with soap and water before doing the dressing change. Compression - Double tubigrip topped with HILL wrap. May need to rewrap HILL wrap throughout the day as edema decreases. Will discuss 3M 2layer wraps for next week. Stressed the importance of actually wearing his compression. Encouraged him to elevate legs when sitting. Avoid dangling feet and legs to help prevent edema. Encouraged increase protein intake and Vitamin C to help promote wound healing. Encouraged him to decrease the amount of alcohol intake. Refer to Dr. Ornelas, vascular surgeon for his venous insufficiency. Follow up one week.
[2022-04-20 14:46] VITALS: BP 147/95; PULSE 80; RESP 18; TEMP 36.1
--- NOTE | 2022-04-20 16:09 | PN.PCM_ITS ---
History of Present Illness Date of Service: 04/20/22 Chief Complaint: Right medial leg ulcer History of Wound: 61 year old male presents with right medial leg ulcers that occurred after he had blisters that formed and then drained starting in November. He has a history of having leg ulcers in the past. He states that he is waiting for vascular studies ordered by his neurologist, Dr. Farris because he was not able to palpate a pulse in his foot at his last appointment. He states he has been placing adaptic and gauze over the the ulcers that he had left over from his last ulcer that healed. He had MICHELLE 11/24/20 which showed right MICHELLE - 1.14 and left MICHELLE 1.04, both with triphasic waveforms. Patient has a history of over 250 lb weight loss after a Malik-en-Y bariatric surgery in the in [place]. He also has a history of gout, afib, alcohol use of 4-6 cans of beer a few times a week. He has his medical marijuana card. Patient states he doesn't eat much because of his gastric bypass surgery, he typically drinks most of his calories, including a 1/2 of gallon of skim milk per day. He typically sleeps sitting in a chair. Venous studies done 04/01/22 which showed The right sapheno-femoral junction is incompetent . The right great saphenous vein appears segmentally incompetent. The left great saphenous vein appears incompetent below the knee. The right small saphenous vein was not visualized. The left small saphenous vein is patent and incompetent. The accessory saphenous vein at the right sapheno-femoral junction is incompetent. The accessory saphenous vein at the right knee is incompetent. The accessory saphenous vein in the right proximal calf is incompetent. The accessory saphenous vein in the left distal thigh is incompetent. An incompetent wood heel flap trimmer vein is noted in the left calf, located 19 centimeters proximal to the left medial malleolus. Arterial studies completed on 04/01/22 - Showed triphasic doppler waveforms at ankle level bilaterally. Right MICHELLE by dorsalis pedis is 1.15, Left MICHELLE by dorsalis pedis 1.25. There is no evidence of significant arterial occlusive disease in the lower extremities bilaterally. Wound care - Collagen hydrogel covered with adaptic and topped with gauze. Compression - Double tubigrip topped with HILL wrap. Today he denies having a temperature, fever, chills, nausea, vomiting. Progress of Wound: His right medial leg ulcer is healed today. He continues to have significant edema. Objective Data Objective Data Vital Signs: Vital Signs Temp Pulse Resp BP O2 Del Method 96.9 F L 80 18 147/95 H Room Air 04/20/22 14:46 04/20/22 14:46 04/20/22 14:46 04/20/22 14:46 04/20/22 14:46 Oxygen Delivery Method Room Air Charges/Coding Visit Charges Office Visits / Consults: 22402 OV L3 Est Physical Exam Const alert, oriented x3 and no apparent distress HEENT normocephalic Resp normal respiratory effort Cardio regular rate Extremity normal capillary refill Extremity Narrative: Severe bilateral lower extremity edema, +3-+4 pitting but not weeping today. Bilateral pedal pulses are +2. Skin Wound Narrative: Right medial leg ulcer is healed today. Neuro CN's II-XII intact bilaterally Psych affect normal Debridement Note Debridement Note No debridement was completed: No debridement was completed today Post-Debridement Measurements and Additional Note: Post-Debridement Measurements/Treatment - Nurse 1 - General Ulcer Assessment Start: 03/23/22 13:59 Freq: Status: Active Protocol: STEW Activity Type Activity Date Activity User E-sign Co-sign Detail Recorded Client Recorded Date Recorded By Document 03/23/22 14:00 KR [id number] 03/23/22 14:02 KR Document 03/30/22 13:23 PL [id number] 03/30/22 13:29 PL Document 04/06/22 13:41 KR [id number] 04/06/22 13:44 KR Document 04/20/22 14:46 KR [id number] 04/20/22 14:49 KR 03/23/22 03/30/22 04/06/22 14:00 13:23 13:41 - Today's Visit Information Type of service Follow-up Visit Follow-up Visit Follow-up Visit (Physician/DIRECTOR OF HOME HEALTH SERVICES (Physician/DIRECTOR OF HOME HEALTH SERVICES (Physician/DIRECTOR OF HOME HEALTH SERVICES ) ) ) Arrival Mode Ambulatory,Cane Cane Ambulatory Transfer Assistance None Patient Identification Verified (Name & Yes Yes Yes ) Patient Requires Transmission-Based No Precautions Safety Precautions NA Vital Signs Temperature (97.8 F-99.1 F) 98.2 F 98.0 F 97.8 F Temperature Source Temporal Temporal Temporal Pulse Rate (60-100) 80 82 Pulse Location Monitor Monitor Respiratory Rate (12-18) 18 Respiratory rate source Oxygen Delivery Method Blood Pressure (90/60-120/80) 176/89 H 150/94 H 155/95 H Blood Pressure Mean (mm Hg) 118 112 115 Source Monitor Monitor Position Sitting Semi-Fowlers Blood Pressure Location Right Arm Right Arm History Since Last Visit- (Skip if this is Patient's initial visit) Have you changed medications since your No No No last visit? Any new allergies or adverse reactions No No No Had a fall/change in ADL's that may No No No increase risk of falls Signs or symptoms of abuse and/or No No No neglect since last visit Have you been in the hospital since your No No No last visit? Has dressing in place as prescribed Yes Yes Yes Has compression in place as prescribed N/A Yes N/A Has offloadiing in place as prescribed N/A Yes N/A Experienced any changes in pain level or No No No management Left Footwear Regular Shoe Regular Shoe Right Footwear Regular Shoe Regular Shoe Pain Scale: 0-10 Numeric Is Patient Pain Free? Yes Yes Yes 04/20/22 14:46 WC - Today's Visit Information Type of service Follow-up Visit (Physician/DIRECTOR OF HOME HEALTH SERVICES ) Arrival Mode Ambulatory,Cane Transfer Assistance Patient Identification Verified (Name & Yes ) Patient Requires Transmission-Based Precautions Safety Precautions Vital Signs Temperature (97.8 F-99.1 F) 96.9 F L Temperature Source Temporal Pulse Rate (60-100) 80 Pulse Location Monitor Respiratory Rate (12-18) 18 Respiratory rate source Observation Oxygen Delivery Method Room Air Blood Pressure (90/60-120/80) 147/95 H Blood Pressure Mean (mm Hg) 112 Source Monitor Position Semi-Fowlers Blood Pressure Location Right Arm History Since Last Visit- (Skip if this is Patient's initial visit) Have you changed medications since your No last visit? Any new allergies or adverse reactions No Had a fall/change in ADL's that may No increase risk of falls Signs or symptoms of abuse and/or No neglect since last visit Have you been in the hospital since your No last visit? Has dressing in place as prescribed Yes Has compression in place as prescribed Yes Has offloadiing in place as prescribed N/A Experienced any changes in pain level or No management Left Footwear Regular Shoe Right Footwear Regular Shoe Pain Scale: 0-10 Numeric Is Patient Pain Free? Yes WC - Nurse 1 - General Ulcer Measurement Start: 03/23/22 13:59 Freq: Status: Active Protocol: Activity Type Activity Date Activity User E-sign Co-sign Detail Recorded Client Recorded Date Recorded By Document 03/23/22 14:00 KR [id number] 03/23/22 14:02 KR Document 03/30/22 13:23 PL [id number] 03/30/22 13:29 PL Document 04/06/22 13:41 KR [id number] 04/06/22 13:44 KR Document 04/20/22 14:46 KR [id number] 04/20/22 14:49 KR 03/23/22 03/30/22 04/06/22 14:00 13:23 13:41 Wound Center Nurse 1 #3 Right medial Sandy -Combined with other wound No -Current Size (cm) - Length 2.1 3.8 0.1 -Current Size (cm) - Width 0.5 0.5 0.1 -Current Size (cm) - Depth 0.1 0.1 0.1 -Total Square Cm 1.05 1.90 0.01 -Epithelialization Small 1-33% -Tunneling No -Undermining/Tunneling No -Circular Undermining No -Classification - Thickness Partial Thickness -Exudate Amt Small Medium Small -Exudate Type Serosanguineous Serosanguineous Serosanguineous -Wound Margin Distinct, Distinct, Outline Outline Attached Attached -Granulation Amt Medium (34-66%) Large (67-100%) Large (67-100%) -Granulation Quality [place] -Slough/Fibrin Yes -Necrosis Amt Small (1-33%) Small (1-33%) None Present (0 %) -Necrotic Tissue Type Adherent Slough Adherent Slough -Texture (Candy-wound Skin Appearance) Assessed, Assessed, Scarring Scarring -Moisture (Candy-wound Skin Appearance) No Abnormality, No Abnormality, Assessed Assessed -Color (Candy-wound Skin Appearance) No Abnormality, No Abnormality, Assessed Assessed -Temperature (Candy-wound Skin No Abnormality Appearance) (Pt Warm) -Tenderness on Palpation (Candy-wound No No Skin Appearance) -Ulcer Cleansing Rinsed/ Rinsed/ Rinsed/ Irrigated with Irrigated with Irrigated with Saline Saline Saline -Foul Odor after Cleansing No No No -Anesthetic Used 5% Lidocaine 5% Lidocaine 5% Lidocaine Gel Gel Gel Lower Limb Edema Present Right Calf (cm) 48 Right Ankle (cm) 31 04/20/22 14:46 Wound Center Nurse 1 #3 Right medial Sandy -Combined with other wound No -Current Size (cm) - Length 0.1 -Current Size (cm) - Width 0.1 -Current Size (cm) - Depth 0.1 -Total Square Cm 0.01 -Epithelialization Large 67-100% -Tunneling No -Undermining/Tunneling No -Circular Undermining No -Classification - Thickness -Exudate Amt -Exudate Type -Wound Margin Distinct, Outline Attached -Granulation Amt Small (1-33%) -Granulation Quality Pale -Slough/Fibrin No -Necrosis Amt None Present (0 %) -Necrotic Tissue Type -Texture (Candy-wound Skin Appearance) Assessed, Scarring -Moisture (Candy-wound Skin Appearance) No Abnormality, Assessed,Dry/ Scaly -Color (Candy-wound Skin Appearance) No Abnormality, Assessed -Temperature (Candy-wound Skin No Abnormality Appearance) (Pt Warm) -Tenderness on Palpation (Candy-wound No Skin Appearance) -Ulcer Cleansing Rinsed/ Irrigated with Saline -Foul Odor after Cleansing No -Anesthetic Used Lower Limb Edema Present Yes Right Calf (cm) 58.1 Right Ankle (cm) 32.5 WC - Nurse 2 - General Ulcer CM Notes Start: 03/23/22 13:59 Freq: Status: Active Protocol: Activity Type Activity Date Activity User E-sign Co-sign Detail Recorded Client Recorded Date Recorded By Document 03/23/22 14:23 PL [id number] 03/23/22 14:24 PL Document 03/30/22 14:10 MW [id number] 03/30/22 14:13 MW Document 04/06/22 14:09 MW [id number] 04/06/22 14:19 MW Document 04/20/22 15:35 MW [id number] 04/20/22 15:38 MW 03/23/22 03/30/22 04/06/22 14:23 14:10 14:09 Wound Center Nurse 2 #3 Right medial Sandy -Time 14:07 14:11 14:10 -Correct Patient Yes Yes Yes -Correct Side, Site, Position Yes Yes Yes -Correct Procedure Yes Yes Yes -Procedure Performed Yes Yes Yes -Type of Procedure Debridement Debridement Debridement -Clinical Debridement Subcutaneous Subcutaneous Subcutaneous -Tissue Removed Subcutaneous Subcutaneous Subcutaneous -Post Debridement (cm) - Length 2.8 2.7 0.2 -Post Debridement (cm) - Width 1.6 0.3 0.2 -Post Debridement (cm) - Depth 0.2 0.2 0.1 -Total Square (Post) (cm) 4.48 0.81 0.04 -Area of Debridement (cm) - Length 2.8 2.7 0.2 -Area of Debridement (cm) - Width 1.6 0.3 0.2 -Total Square (Area) (cm) 4.48 0.81 0.04 -Tunneling No No No -Undermining/Tunneling No No No -Circular Undermining No No No -Wound/Ulcer Outcome Not Healed Not Healed Not Healed -Ulcer Cleansing Rinsed/ Rinsed/ Rinsed/ Irrigated with Irrigated with Irrigated with Saline Saline Saline -Foul Odor after Cleansing No No No -Bioengineered Tissue No No No -Bleeding Controlled with Pressure Pressure Pressure -Treatment Response Procedure Procedure Procedure Tolerated Well Tolerated Well Tolerated Well -Offloading No No -Debridement - Subq, 1st 20sq cm Yes Yes Yes #2- R KNEE POST TRAUMA -Procedure Performed No -Wound/Ulcer Outcome Healed- Epithelialized Pain Scale: 0-10 Numeric Is Patient Pain Free? Yes Yes Yes 04/20/22 15:35 Wound Center Nurse 2 #3 Right medial Sandy -Time 15:35 -Correct Patient Yes -Correct Side, Site, Position Yes -Correct Procedure Yes -Procedure Performed No -Type of Procedure -Clinical Debridement -Tissue Removed -Post Debridement (cm) - Length 0 -Post Debridement (cm) - Width 0 -Post Debridement (cm) - Depth 0 -Total Square (Post) (cm) 0 -Area of Debridement (cm) - Length -Area of Debridement (cm) - Width -Total Square (Area) (cm) -Tunneling -Undermining/Tunneling -Circular Undermining -Wound/Ulcer Outcome Healed- Epithelialized -Ulcer Cleansing -Foul Odor after Cleansing -Bioengineered Tissue -Bleeding Controlled with -Treatment Response -Offloading -Debridement - Subq, 1st 20sq cm #2- R KNEE POST TRAUMA -Procedure Performed -Wound/Ulcer Outcome Pain Scale: 0-10 Numeric Is Patient Pain Free? Yes - Nurse 3 - General Ulcer D/C NN Start: 03/23/22 13:59 Freq: Status: Active Protocol: Activity Type Activity Date Activity User E-sign Co-sign Detail Recorded Client Recorded Date Recorded By Document 03/30/22 14:13 MW [id number] 03/30/22 14:14 MW Document 04/20/22 15:43 BMF [id number] 04/20/22 15:44 BMF 03/30/22 04/20/22 14:13 15:43 Wound Care Nurse 3 #3 Right medial Sandy -Ulcer Cleansing Rinsed/ Irrigated with Saline -Foul Odor after Cleansing No -Negative Pressure Wound Therapy N/A -Primary Dressing Applied Optilok 8x12, Promogran Poppy Matter -Primary Dressing Covered/Secured with Dry Gauze & Roll Gauze, Secured with Tape -Optilok 8x12 1 -Promogran Poppy Matter 1 Right -Tubular Bandage Single Layer -Size of Tubigrip Used Size F -Size F ($) 1 Left -Tubular Bandage Single Layer -Size of Tubigrip Used Size F -Size F ($) 1 Treatment Response Procedure Procedure Tolerated Well Tolerated Well Pain Scale: 0-10 Numeric Is Patient Pain Free? Yes Yes Teaching: Wound Center Dressing Your Wound -Person Taught Patient -Teaching Method Discussion, Demonstration -Response to teaching Verbalize understanding WC - Visit Discharge Discharge Condition Stable Stable Ambulatory Status Ambulatory Ambulatory,Cane Transportation Private Auto Private Auto Accompanied by CAREGIVER Medication Reconcilliation completed & No provided to patient/care provider Clinical Summary of Care Provided Yes Assessment/Plan Assessment/Plan (1) Ulcer of right lower extremity: CODE(S): L97.919 - Non-pressure chronic ulcer of unspecified part of right lower leg with unspecified severity (2) Edema of both lower extremities: CODE(S): R60.0 - Localized edema (3) Decreased pedal pulses: CODE(S): R09.89 - Other specified symptoms and signs involving the circulatory and respiratory systems (4) Venous (peripheral) insufficiency: CODE(S): I87.2 - Venous insufficiency (chronic) (peripheral) PLAN: Plan Patient was seen and evaluated at the wound healing center today. Vascular studies completed on 04/01/22. MICHELLE right = 1.15, left = 1.25. Right medial leg ulcer cluster is healed today. Compression - Double tubigrip. He states he has been approved for the leg edema pumps, he is hoping to get them soon. Stressed the importance of actually wearing his compression (he came into the clinic without his compression.) Encouraged him to elevate legs when sitting. Avoid dangling feet and legs to help prevent edema. Encouraged increase protein intake and Vitamin C to help promote wound healing. Encouraged him to decrease the amount of alcohol intake. Refer to Dr. Ornelas, vascular surgeon for his venous insufficiency. Follow up as needed.
== END 2022-04-20 23:59 | disposition home or self-care (01) ==
LOC: WC 14:45
PROVIDERS: PCP Family Medicine Geriatric Medicine; Visit Provider Nurse Practitioner Family
DX: L97.812 Non-pressure chronic ulcer of other part of right lower leg with fat layer exposed (principal); I48.91 Unspecified atrial fibrillation; R60.0 Localized edema; I87.2 Venous insufficiency (chronic) (peripheral); M10.9 Gout, unspecified; I89.0 Lymphedema, not elsewhere classified; Z79.01 Long term (current) use of anticoagulants; Z79.899 Other long term (current) drug therapy; Z98.84 Bariatric surgery status
CPT/HCPCS: 11042; 99213; G0463

== ENCOUNTER → 2022-04-21 | Outpatient (CLI) | payer MEDICAID, SELFPAY | END | disposition home or self-care (01) | LOC: SL 21:27 | PROVIDERS: PCP Family Medicine Geriatric Medicine; Referring Provider Nurse Practitioner Acute Care; Visit Provider Nurse Practitioner Acute Care | DX: G47.33 Obstructive sleep apnea (adult) (pediatric) (principal) | CPT/HCPCS: 95811 ==

== ENCOUNTER 2022-05-27 12:13 | Outpatient (CLI) | payer MEDICAID, SELFPAY | END 2022-05-27 23:59 | disposition home or self-care (01) | LOC: POLAB3 12:13 | PROVIDERS: PCP Family Medicine Geriatric Medicine; Visit Provider Family Medicine Geriatric Medicine | DX: N39.0 Urinary tract infection, site not specified (principal); Z01.812 Encounter for preprocedural laboratory examination | CPT/HCPCS: 36415; 71046; 80048; 80076; 85027; 85610; 85730; 86850; 86900; 86901; 87086; 87088; 87186; 93005 ==

== ENCOUNTER → 2022-05-27 | Outpatient (CLI) | payer MEDICAID, SELFPAY ==
--- NOTE | 2022-05-27 09:41 | RAD_ITS ---
INDICATION: PREOP EXAMINATION/TECHNIQUE: X-RAY - XR Chest 2 Views COMPARISON: None. FINDINGS: The lungs are clear. Tortuous and calcified thoracic aorta. The heart is not enlarged. No pleural effusion or pneumothorax. Degenerative changes of the thoracic spine. RAD/Chest PA and Lateral IMPRESSION: No acute radiographic abnormalities. Electronically Signed: Santiago Suárez MD at 18:24 EDT ,
[2022-05-27 12:51] LABS: Hemoglobin 12.8 g/dL (13.0-16.5); Mean Corp Hgb Conc 33.7 g/dL (32-36); Mean Corpuscular Hgb 29.9 pg (27.0-32.0); Mean Corpuscular Volume 88.8 fL (80-94); Mean Platelet Vol. 10.4 fl (6.2-12.0); Platelet Count 144 K/mm3 (150-450); RBC Distribution Width CV 16.4 % (11.6-14.6); RBC Distribution Width SD 53.1 fl (35.1-43.9); Red Blood Count 4.28 M/mm3 (4.6-6.2); White Blood Count 5.6 K/mm3 (4.4-11.0)
[2022-05-27 13:13] LABS: International Normalized Ratio 1.2; Prothrombin Time (Protime)PT. 14.5 SECONDS (11.7-14.9)
[2022-05-27 13:14] LABS: Partial Thromboplast Time 30.4 Seconds (24.1-36.2)
[2022-05-27 13:24] LABS: Anion Gap 8 (5-15); BUN 7 mg/dL (7-18); BUN/Creat Ratio 8.9 RATIO (10-20); Calcium,Total 7.9 mg/dL (8.5-10.1); Chloride 85 mmol/L (98-107); Creatinine, Serum 0.79 mg/dL (0.70-1.30); EST Glomerular Filtration Rate 106 mL/min (>60); Est Glom Filt Rate - Afr Amer 129 mL/min (>60); Glucose 121 mg/dL (74-106); Potassium 3.2 mmol/L (3.5-5.1); Sodium Level 124 mmol/L (136-145)
[2022-05-27 13:53] LABS: AST(SGOT) 57 U/L (15-37); Alanine Aminotransfer ALT/SGPT 32 U/L (16-61); Albumin, Serum 3.1 g/dL (3.2-5.0); Alkaline Phosphatase 122 U/L (45-117); Bilirubin, Direct 0.23 mg/dL (0.00-0.30); Globulin 4.3 g/dL (2.2-4.2); Protein, Total 7.4 g/dL (6.4-8.2)
== END | disposition home or self-care (01) ==
LOC: PAT 06-24 10:43
PROVIDERS: Anesthesiology; PCP Family Medicine Geriatric Medicine; Referring Provider Surgery Trauma Surgery; Visit Provider Surgery Trauma Surgery
DX: Z01.812 Encounter for preprocedural laboratory examination (principal)
CPT/HCPCS: 36415; 71046; 80048; 80076; 85027; 85610; 85730; 86850; 86900; 86901; 93005

== ENCOUNTER 2022-06-02 09:22 | Outpatient (CLI) | payer MEDICAID, SELFPAY ==
--- NOTE | 2022-06-02 09:26 | RAD_ITS ---
STUDY: X-RAY - ESOPHAGUS (BARIUM SWALLOW) WITH FLUOROSCOPY REASON FOR EXAM: Male, 61 years old. DYSPHAGIA TECHNIQUE: 16 view(s) of the esophagus were obtained following swallowing of barium. FLUOROSCOPY TIME (if supplied): (25) minutes/seconds COMPARISON: None. FINDINGS: There is no demonstrated esophageal foreign body. There is a moderate size sliding hiatal hernia without gastroesophageal reflux. 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 The patient ingested a 12 mm tablet of barium. The tablet is trapped at the site of the gastroesophageal junction where there is evidence of a weblike stenosis. The patient is status post subtotal gastrectomy for weight loss surgery. Normal visualized aortic arch and descending thoracic aorta. Normal visualized pulmonary parenchyma. Normal visualized osseous structures of the thorax. RAD/Esophagus Dual Contrast IMPRESSION: Moderate size hiatal hernia. 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 Status post subtotal gastrectomy for weight loss surgery. Electronically Signed: Cole Hopper MD at 9:22 EDT ,
== END 2022-06-02 23:59 | disposition home or self-care (01) ==
LOC: RAD 09:24
PROVIDERS: PCP Family Medicine Geriatric Medicine; Referring Provider Family Medicine Geriatric Medicine; Visit Provider Family Medicine Geriatric Medicine
DX: R13.10 Dysphagia, unspecified (principal); K44.9 Diaphragmatic hernia without obstruction or gangrene; Z01.812 Encounter for preprocedural laboratory examination; E87.1 Hypo-osmolality and hyponatremia
CPT/HCPCS: 74220; 36415; 74221; 80048; 83930; 83935; 84300; 85025

== ENCOUNTER → 2022-06-02 | Outpatient (CLI) | payer MEDICAID, SELFPAY ==
[2022-06-02 17:04] LABS: Absolute Lymphocyte Count 1.18 X10^3/uL (0.83-4.51); Basophil# 0.02 X10^3/uL; Basophil% 0.3 % (0-1); Eosinophil# 0.23 X10^3/uL; Eosinophils% 3.2 % (0-5); Hematocrit 38.2 % (40-54); Hemoglobin 12.6 g/dL (13.0-16.5); Lymphocyte # 1.18 X10^3/ul (0.83-4.51); Lymphocyte % 16.6 % (19-41); Mean Corpuscular Hgb 29.2 pg (27.0-32.0); Mean Corpuscular Volume 88.4 fL (80-94); Mean Platelet Vol. 9.7 fl (6.2-12.0); Monocyte# 0.66 X10^3/uL; Monocyte% 9.3 % (0-10); NRBC Flagged by Analyzer 0 % (0-5); Neutrophil # 4.97 X10^3/uL (2.7-7.7); Neutrophil % 70.2 % (47-70); Platelet Count 246 K/mm3 (150-450); RBC Distribution Width CV 15.9 % (11.6-14.6); RBC Distribution Width SD 51.8 fl (35.1-43.9); Red Blood Count 4.32 M/mm3 (4.6-6.2); White Blood Count 7.1 K/mm3 (4.4-11.0)
[2022-06-02 17:05] LABS: Anion Gap 8 (5-15); BUN 7 mg/dL (7-18); BUN/Creat Ratio 11.4 RATIO (10-20); Calcium,Total 8.1 mg/dL (8.5-10.1); Chloride 87 mmol/L (98-107); Creatinine, Serum 0.62 mg/dL (0.70-1.30); EST Glomerular Filtration Rate 141 mL/min (>60); Est Glom Filt Rate - Afr Amer 171 mL/min (>60); Glucose 120 mg/dL (74-106); Potassium 3.2 mmol/L (3.5-5.1); Sodium Level 125 mmol/L (136-145)
[2022-06-02 18:16] LABS: Urine Sodium 98 mmol/L (Not Establ.)
[2022-06-02 18:22] LABS: Osmolality, Serum 260 mOsm/KG (275-295)
[2022-06-02 18:23] LABS: Osmolality, Urine 415 mOsm/KG
== END | disposition home or self-care (01) ==
LOC: POLAB3 13:09
PROVIDERS: PCP Family Medicine Geriatric Medicine; Visit Provider Family Medicine Geriatric Medicine
DX: Z01.812 Encounter for preprocedural laboratory examination (principal); E87.1 Hypo-osmolality and hyponatremia
CPT/HCPCS: 83930; 84300; 85025; 83935; 36415; 80048

== ENCOUNTER 2022-06-03 10:16 | Emergency (ER) | payer MEDICAID, SELFPAY ==
[2022-06-03 10:17] VITALS: BP 137/75; PULSE 77; RESP 18; TEMP 36.1; O2SAT 100; BMI 60.0
--- NOTE | 2022-06-03 10:53 | EKG12_ITS ---
Test Reason : ABN LABS Blood Pressure : / mmHG Vent. Rate : 074 BPM Atrial Rate : 074 BPM P-R Int : 180 ms QRS Dur : 112 ms QT Int : 384 ms P-R-T Axes : 033 -61 032 degrees QTc Int : 426 ms Normal sinus rhythm Left axis deviation Low voltage QRS Inferior infarct , age undetermined Abnormal ECG Confirmed by DIANDRA BLOOM, BEE ([id number]), assistant editor MEHUL JIMENEZ ([id number]) on 06/06/2022 9:52:28 A M Referred By: Confirmed By:KHAI JIM MD
--- NOTE | 2022-06-03 10:55 | EX.ED.DYSGE1 ---
HPI History of Present Illness Chief Complaint: Abn Labs Narrative Narrative: Patient sent in by his PCP Dr. Mclean due to persistent hyponatremia. Patient seen a week ago in the office due to dysuria he had labs done sodium was 124 than urine with infection. Initially placed on Cipro he was called and switched to Macrobid due to resistance E. coli. Symptoms are improving from that. He returned to the office yesterday for recheck. He was given 2 L of normal saline recheck sodium was reported 127 in office. However lab work noted sodium down to 125. Results was called today to go to the ED. Reports history of significant neuropathy lower extremities without diabetes history he is a fall risk. Reported intermittent lightheaded symptoms and intermittent nausea. Denies chest pains or shortness of breath. Denies vomiting or diarrhea. In addition reviewing his records he is on valsartan with hydrochlorothiazide at 25 mg. He states his hydrochlorothiazide dosing was increased to 25 mg about 3 months ago due to stopping Lasix secondary to causing hypokalemia. He was also placed on spironolactone. Reports that plans with vascular surgery for right lower extremity vein procedures coming Monday however this was canceled due to his hyponatremia. Reviewing records, urine culture was E. coli resistant to Cipro sensitive to the nitrofurantoin he is currently on. He had a sodium of 130 back in March. Reports history of significant morbid obesity had open gastric bypass in 1991 where he lost 100 pounds. He states it has led to poor malabsorption over the years. He is on vitamin B12 from records likely due to this. [facility] Medical History Abdominal wall pain ADD (attention deficit disorder) Alcohol use Ambulates with cane Anemia Anxiety Arthritis Atrial fibrillation Atrial fibrillation with rapid ventricular response Atrial flutter BPH (benign prostatic hyperplasia) Calcium deficiency Cardiology follow-up encounter Cardiomyopathy Cardiomyopathy CHI (closed head injury) Chronic atrial fibrillation Chronic pain Debility Depression Easy bruising Essential hypertension Excessive bleeding Fibromyalgia Former smoker Gastric reflux Gout History of atrial fibrillation History of DVT (deep vein thrombosis) History of echocardiogram History of edema History of hiatal hernia History of Holter monitoring History of rheumatic fever History of sepsis History of stress test HTN (hypertension) Left fibular fracture Leg cramps Marijuana use Morbid obesity Neuropathy Paroxysmal atrial fibrillation Paroxysmal ventricular tachycardia Prostate disease Restless legs Rheumatic fever Shortness of breath on exertion Traumatic injury to skin or subcutaneous tissue Urinary incontinence Uses wheelchair Ventricular ectopy Vitamin B12 deficiency Walker as ambulation aid Wears dentures Wears glasses Home Medications albuterol sulfate 90 mcg/actuation aerosol inhaler 2 puff inhalation Q6H PRN PRN Sob &/Or Wheezing 03/30/18 [History Last Taken 07/27/19] clonazepam 1 mg tablet 1 mg PO BID MENTAL HEALTH 03/30/18 [History Last Taken 04/08/21 22:00] cyanocobalamin (vitamin B-12) 1,000 mcg/mL injection solution 1,000 mcg IM Q30D DEFICIENCY 05/28/18 [History Last Taken 04/22/21] Cbd Oil 1 dose PO DAILY PRN Pain 07/30/19 [History Last Taken 07/16/19] cholecalciferol (vitamin D3) 50 mcg (2,000 unit) capsule 2,000 unit PO DAILY supplement 07/30/19 [History Last Taken 04/08/21 08:00] acetaminophen 325 mg tablet 650 mg PO Q6H PRN PRN Pain Score 1-3/Temp > 100.7 F 08/01/19 [Rx Last Taken Unknown] lidocaine 5 % topical patch 1 patch topical DAILY PRN Pain 02/13/20 [History Last Taken Unknown] doxepin 25 mg capsule 25 mg PO QHS sleep 08/18/20 [History Last Taken 04/08/21 22:00] famotidine 40 mg tablet 40 mg PO DAILY reflux 08/18/20 [History Last Taken 04/08/21 08:00] tamsulosin 0.4 mg capsule 0.4 mg PO DAILY bladder 04/09/21 [History Last Taken 04/08/21 08:00] alpha lymphatic acid 1 dose IV MONTHLY 03/30/22 [History Last Taken Unknown] oxcarbazepine 300 mg tablet 300 mg PO BID neuropathy 03/30/22 [History Last Taken Unknown] pregabalin 150 mg capsule (Lyrica) 150 mg PO DAILY neuropathy 03/30/22 [History Last Taken Unknown] spironolactone 25 mg tablet 25 mg PO DAILY #90 tabs 03/30/22 [Rx Last Taken Unknown] valsartan 320 mg-hydrochlorothiazide 25 mg tablet 1 tab PO DAILY #90 tabs 03/30/22 [Rx Last Taken Unknown] venlafaxine 100 mg tablet 100 mg PO TID 03/30/22 [History Last Taken Unknown] Marijuana 1 dose OTHER QODAY 05/23/22 [History Last Taken Unknown] valsartan 320 mg tablet 320 mg PO DAILY #30 tabs 06/03/22 [Rx Last Taken Unknown] Allergy/AdvReac Type Severity Reaction Status Date / Time duloxetine [From Cymbalta] AdvReac Other Verified 06/03/22 10:27 Family History Mother Diabetes Thyroid disorder Father Diabetes Heart disease CABG x5 in his 50s COPD (chronic obstructive pulmonary disease) Hypertension Other Arthritis Lupus Surgical History H/O gastric bypass History of cardiac catheterization History of cardioversion (~08/10/21) History of esophagogastroduodenoscopy (EGD) History of hand surgery History of hernia repair History of left heart catheterization (04/30/21) Status post removal of thyroid nodule Social History Smoking Status: Former smoker how long ago did patient quit smokin years ago second hand exposure: No alcohol intake: current alcohol intake frequency: a few times a week details: 4-6 cans (12 oz) of beer a couple times per week substance use type: marijuana caffeine: No what type of physical activity do you participate in: none frequency: decline to answer khloe/rastafarian: Cheondoism seatbelt use: never ROS ROS ED Constitutional Constitutional ED: Denies chills, fever(s) or sweats Eyes Eyes: Denies change in vision ENT ENT ED: Denies dysphagia or sore throat Cardiovascular Cardiovascular: Denies chest pain, leg edema, palpitations or racing heartbeat Respiratory/Chest Respiratory/Chest: Denies cough, dyspnea or dyspnea on exertion Gastrointestinal Gastrointestinal: Reports nausea; Denies abdominal pain, diarrhea or vomiting Genitourinary Genitourinary ED: Denies dysuria, hematuria or urinary frequency Musculoskeletal Musculoskeletal: Denies back pain, extremity pain or neck pain Integumentary Denies rash or wounds Neurologic Neurologic: Reports weakness; Denies headache(s) or paresthesias EXAM Physical Exam Const Vital Signs: 06/03/22 10:17 06/03/22 12:39 Temperature 97 F L Temperature Source Temporal Pulse Rate 77 86 Respiratory Rate 18 17 Blood Pressure 137/75 H 142/81 H Blood Pressure Mean 95 Pulse Ox 100 96 Oxygen Delivery Method Room Air Positive well nourished, well developed and obese General Appearance ED: well developed and NAD Nutritional Appearance: obese HEENT Reports moist mucous membranes normocephalic and atraumatic Eyes PERRL, EOMs intact bilaterally and conjunctivae normal General Eye ED: Yes normal appearance of both eyes Neck no lymphadenopathy and supple General: Negative for tenderness Chest Wall Chest: Negative for tenderness Resp normal respiratory effort and normal air movement Effort and Inspection: symmetric chest movement; Negative for respiratory distress Cardio regular rate, regular rhythm and no murmurs Peripheral Pulses: pulses 2+ throughout GI normal to inspection, nondistended, normoactive bowel sounds and non-tender Palpation: Negative for guarding or rebound tenderness present Back/Spine no CVA tenderness and no thoracic nor lumbar tenderness Extremity normal to inspection Extremity Narrative: 1+ lower extremity edema. General Extremety ED: Yes edema; Negative for tenderness General Extremity: edema Neuro oriented x3 and no sensory deficits noted Sensorium / Orientation: awake and alert Skin no rashes or lesions noted and no wounds MDM MDM MDM Narrative Medical decision making narrative: Patient vital signs stable. Persistent hyponatremia over the past week. 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 We will check an EKG recheck labs, he will likely need admission due to reported intermittent lightheaded symptoms and nausea with weakness. EKG normal. Recheck labs sodium slightly improved at 126 potassium slight improved at 3.4. Given oral potassium. I discussed with hospitalist Dr. Duron, he did not feel patient needed admission unless he was actively vomiting or needed senior care placement with his symptoms. He states he can hold his hydrochlorothiazide and follow-up as an outpatient. 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 He has enough help currently. I discussed hospitalist recommendations. I also spoke with patient's PCP Dr. Mclean, updated on the discussion. Hydrochlorothiazide will be held he will be given a separate prescription for valsartan at 320 mg by itself. He will be seen in the office next week he will return if any worsening symptoms. All questions were answered. Lab Data Attestation: I reviewed the patient's lab results. Labs: Laboratory Results - last 24 hr 06/03/22 06/03/22 11:19 11:19 WBC 6.8 RBC 4.27 L Hgb 12.6 L Hct 37.6 L MCV 88.1 MCH 29.5 MCHC 33.5 RDW Std Deviation 50.8 H RDW Coeff of Tasha 15.9 H Plt Count 251 MPV 9.2 Immature Gran % (Auto) 0.300 Neut % (Auto) 72.0 H Lymph % (Auto) 17.0 L Ingham % (Auto) 7.4 Eos % (Auto) 2.7 Baso % (Auto) 0.6 Absolute Neuts (auto) 4.9 Absolute Lymphs (auto) 1.15 Nucleated RBC % 0 Sodium 126 L Potassium 3.4 L Chloride 89 L Carbon Dioxide 30.0 Anion Gap 7 BUN 9 Creatinine 0.65 L Estim Creat Clear Calc 140.51 Est GFR (MDRD) Af Amer 162 Est GFR (MDRD) Non-Af 134 BUN/Creatinine Ratio 13.9 Glucose 121 H Calcium 8.3 L EKG Initial EKG: Attestation: I personally reviewed and interpreted this EKG as follows: Comments: Sinus rate of 74, no ST or T wave changes. Discharge Plan Triage Chief Complaint: Abn Labs ED Provider: Saad Rodriguez Dx/Rx/DC Orders Clinical Impression: Acute hyponatremia, Essential hypertension, Polyneuropathy, Acute hypokalemia Instructions: ED Hyponatremia, ED Hypokalemia Prescriptions: New valsartan 320 mg tablet 320 mg PO DAILY Qty: 30 0RF No Action lidocaine 5 % adhesive patch,medicated 1 patch TOPICAL DAILY PRN (Reason: Pain) Rx Instructions: leave on most painful area for up to 12 hrs doxepin 25 mg capsule 25 mg PO QHS famotidine 40 mg tablet 40 mg PO DAILY Label Comments: TAKE 1 TABLET BY MOUTH EVERY DAY oxcarbazepine 300 mg tablet 300 mg PO BID venlafaxine 100 mg tablet 100 mg PO TID Label Comments: TAKE 1 TABLET BY MOUTH THREE TIMES DAILY alpha lymphatic acid 1 dose IV MONTHLY valsartan-hydrochlorothiazide 320-25 mg tablet 1 tab PO DAILY Qty: 90 3RF spironolactone 25 mg tablet 25 mg PO DAILY Qty: 90 3RF clonazepam 1 MG tablet 1 mg PO BID albuterol sulfate 1 INHALER inhaler 2 puff INHALATION Q6H PRN PRN (Reason: Sob &/Or Wheezing) cyanocobalamin (vitamin B-12) 1,000 MCG/ML solution 1,000 mcg IM Q30D cholecalciferol (vitamin D3) 2,000 UNIT capsule 2,000 unit PO DAILY Cbd Oil 1 dose PO DAILY PRN (Reason: Pain) acetaminophen 325 MG tablet 650 mg PO Q6H PRN PRN (Reason: Pain Score 1-3/Temp > 100.7 F) 0RF tamsulosin 0.4 mg Capsule 0.4 mg PO DAILY pregabalin [Lyrica] 150 mg capsule 150 mg PO DAILY Marijuana 1 dose OTHER QODAY Primary Care Provider: Chalo Mclean Chi Referrals: Chalo Mclean Chi, MD [Primary Care Provider] - 3-5 Days Activity Restrictions/Additional Instructions: Hold your combination valsartan and hydrochlorothiazide. Take new prescription of valsartan by itself. Finish your antibiotics. Call to be seen by Dr. Mclean next week. I discussed with Dr. Mclean from the ED. Return if any worsening symptoms. Disposition Disposition: Home, Self Care Discharge Date/Time: 06/03/22 12:41
[2022-06-03 11:26] LABS: Absolute Lymphocyte Count 1.15 X10^3/uL (0.83-4.51); Absolute Neutrophil Count 4.9 X10^3/uL (2.0-7.7); Basophil# 0.04 X10^3/uL; Basophil% 0.6 % (0-1); Eosinophil# 0.18 X10^3/uL; Eosinophils% 2.7 % (0-5); Hematocrit 37.6 % (40-54); Hemoglobin 12.6 g/dL (13.0-16.5); Lymphocyte # 1.15 X10^3/ul (0.83-4.51); Mean Corp Hgb Conc 33.5 g/dL (32-36); Mean Corpuscular Hgb 29.5 pg (27.0-32.0); Mean Corpuscular Volume 88.1 fL (80-94); Mean Platelet Vol. 9.2 fl (6.2-12.0); Monocyte% 7.4 % (0-10); NRBC Flagged by Analyzer 0 % (0-5); Neutrophil # 4.87 X10^3/uL (2.7-7.7); Platelet Count 251 K/mm3 (150-450); RBC Distribution Width CV 15.9 % (11.6-14.6); RBC Distribution Width SD 50.8 fl (35.1-43.9); Red Blood Count 4.27 M/mm3 (4.6-6.2); White Blood Count 6.8 K/mm3 (4.4-11.0)
[2022-06-03 11:38] LABS: Anion Gap 7 (5-15); BUN 9 mg/dL (7-18); BUN/Creat Ratio 13.9 RATIO (10-20); Calcium,Total 8.3 mg/dL (8.5-10.1); Chloride 89 mmol/L (98-107); Creatinine, Serum 0.65 mg/dL (0.70-1.30); EST Glomerular Filtration Rate 134 mL/min (>60); Est Glom Filt Rate - Afr Amer 162 mL/min (>60); Estimated Creatinine Clearance 140.51 ml/min; Glucose 121 mg/dL (74-106); Potassium 3.4 mmol/L (3.5-5.1); Sodium Level 126 mmol/L (136-145)
[2022-06-03] MEDS: Potassium Chloride Oral Tablet 20 MEQ PO (11:59)
[2022-06-03 12:39] VITALS: BP 142/81; PULSE 86; RESP 17; O2SAT 96
== END 2022-06-03 12:41 | disposition home or self-care (01) ==
PROVIDERS: Emergency Provider Emergency Medicine; PCP Family Medicine Geriatric Medicine; Visit Provider Emergency Medicine
DX: E87.6 Hypokalemia (principal); E66.01 Morbid (severe) obesity due to excess calories; Z68.44 Body mass index [BMI] 60.0-69.9, adult; I10 Essential (primary) hypertension; E87.1 Hypo-osmolality and hyponatremia; G62.9 Polyneuropathy, unspecified; M79.7 Fibromyalgia; F10.90 Alcohol use, unspecified, uncomplicated; Z79.899 Other long term (current) drug therapy; Z87.891 Personal history of nicotine dependence
CPT/HCPCS: 80048; 85025; 93005; 99283

== ENCOUNTER → 2022-06-08 | Outpatient (CLI) | payer MEDICAID, SELFPAY ==
[2022-06-08 14:00] LABS: Anion Gap 6 (5-15); BUN 9 mg/dL (7-18); BUN/Creat Ratio 15.2 RATIO (10-20); Calcium,Total 8.8 mg/dL (8.5-10.1); Chloride 98 mmol/L (98-107); Creatinine, Serum 0.59 mg/dL (0.70-1.30); EST Glomerular Filtration Rate 148 mL/min (>60); Est Glom Filt Rate - Afr Amer 179 mL/min (>60); Glucose 123 mg/dL (74-106); Potassium 3.7 mmol/L (3.5-5.1); Sodium Level 133 mmol/L (136-145)
== END | disposition home or self-care (01) ==
LOC: POLAB3 11:28
PROVIDERS: PCP Family Medicine Geriatric Medicine; Visit Provider Family Medicine Geriatric Medicine
DX: E87.1 Hypo-osmolality and hyponatremia (principal); N39.0 Urinary tract infection, site not specified
CPT/HCPCS: 36415; 80048; 87077; 87086; 87088; 87186

== ENCOUNTER → 2022-06-09 | Outpatient (CLI) | payer MEDICAID, SELFPAY | END | disposition home or self-care (01) | LOC: SL 11:17 | PROVIDERS: PCP Family Medicine Geriatric Medicine; Visit Provider Nurse Practitioner Acute Care | DX: G47.33 Obstructive sleep apnea (adult) (pediatric) (principal) ==

== ENCOUNTER → 2022-08-23 | Outpatient (CLI) | payer MEDICAID, SELFPAY ==
[2022-08-23 14:24] LABS: PSA,Total- Diagnostic 0.08 ng/mL (0.0-4.0)
== END | disposition home or self-care (01) ==
LOC: LAB 12:58
PROVIDERS: PCP Family Medicine Geriatric Medicine; Referring Provider Urology; Visit Provider Urology
DX: N40.1 Benign prostatic hyperplasia with lower urinary tract symptoms (principal)
CPT/HCPCS: 36415; 84153

== ENCOUNTER 2022-08-30 12:31 | Day surgery (SDC) | payer MEDICAID, SELFPAY ==
[2022-08-30] MEDS: Lactated Ringers 1,000 ML 15 ML IV (13:08)
[2022-08-30 13:09] VITALS: BP 141/78; PULSE 77; RESP 20; TEMP 36.4; O2SAT 97; BMI 57.1
--- NOTE | 2022-08-30 13:22 | PCM.HP.BLA ---
History and Physical Date of Admission: 08/30/22 ?62 M who presents to the office today to establish with GI for GERD, dysphagia Hx Malik en Y when it was an experimental procedure. Food sticks at the distal esophagus about once a week, has to force himself to retch. He mostly sticks to a liquid or soft diet--milk, eggs and toast; sometimes Ensure. He quit beer. He reports last esophageal dilation in 2018. Recent esophagram shows weblike stenosis at GE junction. Taken off PPI due to worsening absorption. On famotidine and calcium antacid instead of PPI; they mostly control his heartburn. He finds jarrett bhupinder help to be helpful. Bowels are either runny or constipated. No melena or hematochezia. 05/2018 EGD and colonoscopy by Dr Rhys Carter--esophagitis, gastritis, diverticulosis, colon biopsies negative. Recommended repeat colonoscopy 10 yrs. Medical marijuana once or twice a week (too expensive to use more often) for chronic pain. Resistant E coli UTI; he has an indwelling macias catheter; sees urology in [place]. 06/03/22 Esophagus Dual Contrast IMPRESSION: Moderate size hiatal hernia. 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 Status post subtotal gastrectomy for weight loss surgery. Exam Const General: cooperative and comfortable Nutritional Appearance: obese Orientation: alert, awake and oriented x3 Other: in wheelchair I have examined the patient and the H&P has been reviewed. There are no clinical changes since date of exam.
--- NOTE | 2022-08-30 13:30 | EGD_PTH ---
PATIENT: CARLIN SMITH LOC: EN U#:[id number] AGE/SX: 62/M ROOM: RE08/30/[address]: Dr. Nelson Munoz DO : 1960 BED: DIS: 08/30/2022 SPEC #: [id number] RECD: 08/30/22 16:43 STATUS: JOSE REQ #: [id number] CYN: 08/30/22 13:[address]: Nelson Munoz DEPT: SURGICAL PATHOLOGY RECD BY: Maci Calles ENTERED: 08/31/22 07:22 SP TYPE: EGD BIOPSY OT DR: Dr. Chalo Mclean MD Tissues: Esophagus, NOS Procedures: Surgery Specimen Level IV HEADER OPERATION: EGD ([facility] [place]) with biopsies and dilatation PRE-OP DIAGNOSIS: GERD, dysphagia TISSUE SUBMITTED: Distal esophagus biopsies MICROSCOPIC DIAGNOSIS Distal esophagus, biopsy: Fragments of benign squamous mucosa with focal changes of reflux. AM:kimberly 09/01/2022 MICROSCOPIC DESCRIPTION Slides are reviewed. GROSS DESCRIPTION Received in fixative is one container labeled with the patient's name and designated distal esophagus biopsy. The specimen consists of multiple irregular fragments of light eason soft tissue that in aggregate measure 1.5 x 1 x 0.1 cm. The specimen is totally submitted in one cassette. / AM:kimberly 08/31/2022 TC:5 CPT: 42040
[2022-08-30 14:40] VITALS: BP 131/68; BP 141/78; PULSE 83; RESP 18; TEMP 37.3; O2SAT 95
--- NOTE | 2022-08-30 14:41 | OP.EGD_ITS ---
Patient Name: Spenser Fontaine Procedure Date: 08/30/2022 2:21 PM Date of : 1960 Age: 62 Procedure: Upper GI endoscopy Indications: Esophageal dysphagia, Heartburn Providers: Nelson Munoz DO Medicines: Monitored Anesthesia Care Patient Profile: This is a 62 year old male. Refer to note in patient chart for documentation of history and physical. Patient has symptoms of acute dysphagia. Complications: No immediate complications. Procedure: Pre-Anesthesia Assessment: - Prior to the procedure, a History and Physical was performed, and patient medications and allergies were reviewed. The risks and benefits of the procedure and the sedation options and risks were discussed with the patient. All questions were answered and informed consent was obtained. Patient identification and proposed procedure were verified by the physician in the pre-procedure area. Mental Status Examination: alert and oriented. Airway Examination: normal oropharyngeal airway and neck mobility. Prophylactic Antibiotics: The patient does not require prophylactic antibiotics. Prior Anticoagulants: The patient has taken no previous anticoagulant or antiplatelet agents. After reviewing the risks and benefits, the patient was deemed in satisfactory condition to undergo the procedure. The anesthesia plan was to use monitored anesthesia care (MAC). Immediately prior to administration of medications, the patient was re-assessed for adequacy to receive sedatives. The heart rate, respiratory rate, oxygen saturations, blood pressure, adequacy of pulmonary ventilation, and response to care were monitored throughout the procedure. The physical status of the patient was re-assessed after the procedure. After obtaining informed consent, the endoscope was passed under direct vision. Throughout the procedure, the patient's blood pressure, pulse, and oxygen saturations were monitored continuously. The Endoscope was introduced through the mouth, and advanced to the jejunum. The upper GI endoscopy was accomplished without difficulty. The patient tolerated the procedure well. Scope In: 2:29:26 PM Scope Out: 2:34:59 PM Total Procedure Duration Time 0 hours 5 minutes 33 seconds Findings: One benign-appearing, intrinsic stenosis was found 36 to 38 cm from the incisors. This stenosis was severe and. The stenosis was traversed after downsizing scope and dilating. A guidewire was placed and the scope was withdrawn. Dilation was performed with a Savary dilator with no resistance at 60 Fr. The dilation site was examined and showed moderate improvement in luminal narrowing. Estimated blood loss was minimal. The Z-line was irregular and was found 38 cm from the incisors. Biopsies were taken with a cold forceps for histology. Verification of patient identification for the specimen was done. Estimated blood loss was minimal. A medium-sized hiatal hernia was present. Evidence of a gastric bypass was found. A gastric pouch with a normal size was found. The staple line appeared intact. The gastrojejunal anastomosis was characterized by healthy appearing mucosa. This was traversed. The nuzrq-on-dklfndz limb was characterized by healthy appearing mucosa. The jejunojejunal anastomosis was characterized by healthy appearing mucosa. The mhwivuye-ma-mgybaju limb was not examined as it could not be found. Impression: - Benign-appearing esophageal stenosis. Dilated. - Z-line irregular, 38 cm from the incisors. Biopsied. - Medium-sized hiatal hernia. - Gastric bypass with a normal-sized pouch and intact staple line. Gastrojejunal anastomosis characterized by healthy appearing mucosa. Recommendation: - Discharge patient to home. - Resume previous diet. - Continue present medications. - Await pathology results. - Repeat upper endoscopy in 3 months for retreatment. Procedure Code(s): --- Professional --- 88309, Esophagogastroduodenoscopy, flexible, transoral; with insertion of guide wire followed by passage of dilator(s) through esophagus over guide wire 20464, 59,51, Esophagogastroduodenoscopy, flexible, transoral; with biopsy, single or multiple CPT copyright 2017 [employer]. All rights reserved. The codes documented in this report are preliminary and upon hadoop developer review may be revised to meet current compliance requirements. Nelson Munoz DO 08/30/2022 2:40:34 PM This report has been signed electronically. Number of Addenda: 0 Note Initiated On: 08/30/2022 2:21 PM
--- NOTE | 2022-08-30 14:42 | OP.CCLET_ITS ---
08/30/2022 Chalo Mclean MD [address] [place] [address] Re : Upper GI endoscopy procedure for Spenser Meredithrien Dear Dr. Mclean This procedure was performed on Tuesday, August 30, 2022. My impressions and recommendations are as follows: Impressions : - Benign-appearing esophageal stenosis. Dilated. - Z-line irregular, 38 cm from the incisors. Biopsied. - Medium-sized hiatal hernia. - Gastric bypass with a normal-sized pouch and intact staple line. Gastrojejunal anastomosis characterized by healthy appearing mucosa. Recommendations : - Discharge patient to home. - Resume previous diet. - Continue present medications. - Await pathology results. - Repeat upper endoscopy in 3 months for retreatment. My findings are described in the full procedure note, which is enclosed. If I can be of further assistance, please feel free to contact me at . Sincerely, Nelson Munoz, 08/30/2022 2:40:34 PM This report has been signed electronically.
[2022-08-30 14:45] VITALS: BP 127/79; BP 133/75; BP 141/78; PULSE 78; PULSE 84; RESP 16; TEMP 37.5; O2SAT 95; O2SAT 97
[2022-08-30 14:50] VITALS: BP 141/78; BP 145/78; PULSE 81; RESP 16; O2SAT 95
[2022-08-30 15:48] VITALS: BP 141/78
== END 2022-08-30 15:49 | disposition home or self-care (01) ==
LOC: EN 12:32 → AC 12:34
PROVIDERS: PCP Family Medicine Geriatric Medicine; Referring Provider Family Medicine Geriatric Medicine; Visit Provider Internal Medicine Gastroenterology
PROC: 0DJ08ZZ Inspection of Upper Intestinal Tract, Via Natural or Artificial Opening Endoscopic (ICD-10-PCS; CPT 43235; principal; 2022-08-30 13:25)
DX: K22.2 Esophageal obstruction (principal); I42.9 Cardiomyopathy, unspecified; I48.0 Paroxysmal atrial fibrillation; E66.01 Morbid (severe) obesity due to excess calories; Z68.43 Body mass index [BMI] 50.0-59.9, adult; K44.9 Diaphragmatic hernia without obstruction or gangrene; Z98.0 Intestinal bypass and anastomosis status; Z98.84 Bariatric surgery status; K21.9 Gastro-esophageal reflux disease without esophagitis; I10 Essential (primary) hypertension; Z79.01 Long term (current) use of anticoagulants; Z79.899 Other long term (current) drug therapy
CPT/HCPCS: 43239; 43248; 88305; J7120; C1769; J2405

== ENCOUNTER → 2022-09-07 | Outpatient (CLI) | payer MEDICAID, SELFPAY ==
[2022-09-07 14:01] LABS: Vitamin D,25 Hydroxy 14.7 ng/mL
[2022-09-07 14:02] LABS: Absolute Lymphocyte Count 1.43 X10^3/uL (0.83-4.51); Absolute Neutrophil Count 4.1 X10^3/uL (2.0-7.7); Basophil# 0.03 X10^3/uL; Basophil% 0.5 % (0-1); Eosinophil# 0.28 X10^3/uL; Eosinophils% 4.5 % (0-5); Hematocrit 42.4 % (40-54); Hemoglobin 13.8 g/dL (13.0-16.5); Lymphocyte # 1.43 X10^3/ul (0.83-4.51); Lymphocyte % 22.7 % (19-41); Mean Corp Hgb Conc 32.5 g/dL (32-36); Mean Corpuscular Volume 89.1 fL (80-94); Mean Platelet Vol. 10.6 fl (6.2-12.0); Monocyte# 0.44 X10^3/uL; NRBC Flagged by Analyzer 0 % (0-5); Neutrophil # 4.09 X10^3/uL (2.7-7.7); Platelet Count 269 K/mm3 (150-450); RBC Distribution Width CV 15.4 % (11.6-14.6); RBC Distribution Width SD 50.9 fl (35.1-43.9); Red Blood Count 4.76 M/mm3 (4.6-6.2); White Blood Count 6.3 K/mm3 (4.4-11.0)
[2022-09-07 14:09] LABS: ALB/GLOB Ratio 0.7 RATIO (0.9-2.4); AST(SGOT) 17 U/L (15-37); Alanine Aminotransfer ALT/SGPT 18 U/L (16-61); Albumin, Serum 3.2 g/dL (3.2-5.0); Alkaline Phosphatase 128 U/L (45-117); Anion Gap 7 (5-15); BUN 10 mg/dL (7-18); BUN/Creat Ratio 12.1 RATIO (10-20); Calcium,Total 8.6 mg/dL (8.5-10.1); Chloride 103 mmol/L (98-107); Creatinine, Serum 0.82 mg/dL (0.70-1.30); EST Glomerular Filtration Rate 101 mL/min (>60); Est Glom Filt Rate - Afr Amer 122 mL/min (>60); Globulin 4.6 g/dL (2.2-4.2); Glucose 120 mg/dL (74-106); Potassium 3.6 mmol/L (3.5-5.1); Protein, Total 7.8 g/dL (6.4-8.2); Sodium Level 137 mmol/L (136-145); Thyroid Stim Hormone (TSH) 3.08 uIU/mL (0.358-3.74); Uric Acid 6.6 mg/dL (3.5-7.2)
== END | disposition home or self-care (01) ==
LOC: POLAB3 09:38
PROVIDERS: PCP Family Medicine Geriatric Medicine; Visit Provider Family Medicine Geriatric Medicine
DX: I10 Essential (primary) hypertension (principal); E55.9 Vitamin D deficiency, unspecified; M10.9 Gout, unspecified; Z12.5 Encounter for screening for malignant neoplasm of prostate
CPT/HCPCS: 84153; 36415; 80053; 82306; 84443; 84550; 85025; G0103

== ENCOUNTER → 2022-12-23 | Outpatient (CLI) | payer MEDICAID, SELFPAY ==
[2022-12-23 11:23] VITALS: BP 133/80; PULSE 131; RESP 16; TEMP 36.9; O2SAT 98; BMI 56.9
--- NOTE | 2022-12-23 11:34 | EKG12_ITS ---
Test Reason : PRE OP Blood Pressure : / mmHG Vent. Rate : 130 BPM Atrial Rate : 130 BPM P-R Int : 000 ms QRS Dur : 094 ms QT Int : 298 ms P-R-T Axes : 000 -68 061 degrees QTc Int : 438 ms Sinus tachycardia Left axis deviation Low voltage QRS Inferior infarct (cited on or before 03-JUN-2022) Abnormal ECG When compared with ECG of 03-JUN-2022 11:07, Junctional rhythm has replaced Sinus rhythm Vent. rate has increased BY 56 BPM Confirmed by DIANDRA BLOOM, BEE ([id number]), metropolitan editor MEHUL JIMENEZ ([id number]) on 12/27/2022 1:31:02 PM Referred By: Chalo Mclean Confirmed By:KHAI JIM MD
--- NOTE | 2022-12-23 12:01 | SUR.PREOP ---
upon assessment in AC, pt's pulse was in the 130's. dr oliver ordered and EKG. pt was found to be in a-fib and procedure was cancelled. pt to follow up with coloring room worker
== END | disposition home or self-care (01) ==
LOC: PAT 01-25 13:20
PROVIDERS: PCP Family Medicine Geriatric Medicine; Referring Provider Family Medicine Geriatric Medicine; Visit Provider Internal Medicine Gastroenterology
DX: Z01.810 Encounter for preprocedural cardiovascular examination (principal)
CPT/HCPCS: J2405; J7120; 93005

== ENCOUNTER → 2023-01-17 | Outpatient (CLI) | payer MEDICAID, SELFPAY ==
[2023-01-17 11:22] LABS: Hematocrit 40.9 % (40-54); Hemoglobin 13.3 g/dL (13.0-16.5); Mean Corp Hgb Conc 32.5 g/dL (32-36); Mean Corpuscular Hgb 32.3 pg (27.0-32.0); Mean Corpuscular Volume 99.3 fL (80-94); Mean Platelet Vol. 10.1 fl (6.2-12.0); Platelet Count 218 K/mm3 (150-450); RBC Distribution Width CV 15.7 % (11.6-14.6); RBC Distribution Width SD 57.1 fl (35.1-43.9); Red Blood Count 4.12 M/mm3 (4.6-6.2); White Blood Count 4.1 K/mm3 (4.4-11.0)
[2023-01-17 12:00] LABS: BNP,B-Type NATRIURETIC PEPTIDE 100.5 pg/mL (0-100)
[2023-01-17 12:01] LABS: Anion Gap 10 (5-15); BUN 4 mg/dL (7-18); BUN/Creat Ratio 6.2 RATIO (10-20); Calcium,Total 7.2 mg/dL (8.5-10.1); Chloride 102 mmol/L (98-107); Creatinine, Serum 0.64 mg/dL (0.70-1.30); EST Glomerular Filtration Rate 134 mL/min (>60); Est Glom Filt Rate - Afr Amer 162 mL/min (>60); Glucose 98 mg/dL (74-106); Potassium 3.8 mmol/L (3.5-5.1); Sodium Level 137 mmol/L (136-145)
== END | disposition home or self-care (01) ==
LOC: LAB 11:01
PROVIDERS: PCP Family Medicine Geriatric Medicine; Referring Provider Physician Assistant Medical; Visit Provider Physician Assistant Medical
DX: R60.0 Localized edema (principal); I42.9 Cardiomyopathy, unspecified; R06.00 Dyspnea, unspecified
CPT/HCPCS: 36415; 80048; 83880; 85027

== ENCOUNTER 2023-01-26 09:27 | Inpatient (IN) | payer MEDICAID, SELFPAY ==
[2023-01-26] VITALS (9 sets, daily range): BP systolic 110–129; BP diastolic 63–86; PULSE 82–97; RESP 15–24; TEMP 35.7–36.8; O2SAT 96–100; BMI 58.9; BMI 57.2
--- NOTE | 2023-01-26 10:07 | RAD_ITS ---
STUDY: X-RAY CHEST REASON FOR EXAM: Male, 62 years old. Weakness TECHNIQUE: Single AP portable view of the chest. COMPARISON: Comparison is made with prior study May 27, 2022. FINDINGS: EKG electrodes are seen. Stable elevation of the right hemidiaphragm. Scattered calcified granulomas. No acute abnormality is seen. There is no demonstrated pleural abnormality. Normal size heart. Normal mediastinum and tom. Normal visualized pulmonary arteries. Normal visualized aortic arch and descending thoracic aorta. Normal visualized thoracic spine. Normal visualized ribs, clavicles, and shoulders. There is no demonstrated abnormality of the visualized soft tissue structures of the upper abdomen. RAD/Chest 1 View (Portable) IMPRESSION: No acute abnormality is seen. Electronically Signed: Cole Hopper MD at 10:50 EDT ,
--- NOTE | 2023-01-26 10:07 | EKG12_ITS ---
Test Reason : A FIB Blood Pressure : / mmHG Vent. Rate : 083 BPM Atrial Rate : 000 BPM P-R Int : 000 ms QRS Dur : 100 ms QT Int : 388 ms P-R-T Axes : 000 -59 023 degrees QTc Int : 455 ms Atrial fibrillation Left axis deviation Low voltage QRS Inferior infarct , age undetermined Cannot rule out Anterior infarct , age undetermined Abnormal ECG Confirmed by DESI BLOOM, ИВАН ([id number]), video editor MEHUL JIMENEZ ([id number]) on 01/27/2023 8:10:42 AM Referred By: BB Confirmed By:ИВАН WEEKS MD
--- NOTE | 2023-01-26 10:08 | EX.ED.DYSGE1 ---
HPI History of Present Illness Chief Complaint: Weakness Detail of Chief Complaint: Generalized weakness Informant: patient Narrative Narrative: Patient presents to the emergency department complaint of generalized weakness for few days. Patient states that he was supposed to have an EKG done today but could barely walk to the bathroom and and think he can make it to the car so he called the squad to bring him in. Patient has history of A-fib and started having issues with it again about a month ago. Patient states that his heart rates have been up and down all morning from the 70s to the 90s. At times feels like his heart is racing. He denies chest pain or shortness of breath. Patient states when he woke up this morning he had dry heaves. He denies diarrhea. He had decreased urine output. Patient states that he has an aide that helps take care of him. He complains of leg edema and retaining water. Patient's had prior cardioversion about 5 years ago. Patient denies blood in his stool or black tarry stools. [facility] Medical History Abdominal wall pain ADD (attention deficit disorder) Alcohol use Ambulates with cane Anemia Anxiety Arthritis Atrial fibrillation Atrial fibrillation with rapid ventricular response Atrial flutter Back pain Blackout Bladder disease BPH (benign prostatic hyperplasia) Calcium deficiency Cardiology follow-up encounter Cardiomyopathy Cardiomyopathy CHI (closed head injury) Chronic atrial fibrillation Chronic pain CPAP (continuous positive airway pressure) dependence Debility Depression DVT (deep venous thrombosis) Dysphagia Dysuria Easy bruising Essential hypertension Excessive bleeding Fibromyalgia Former smoker Gastric reflux Gout History of atrial fibrillation History of DVT (deep vein thrombosis) History of echocardiogram History of edema History of hiatal hernia History of Holter monitoring History of rheumatic fever History of sepsis History of stress test History of ulceration HTN (hypertension) Internal impingement of right shoulder Left fibular fracture Leg cramps Marijuana use Morbid obesity MRSA infection Neuropathy Paroxysmal atrial fibrillation Paroxysmal ventricular tachycardia Prostate disease PTSD (post-traumatic stress disorder) Restless legs Rheumatic fever Right shoulder pain Shortness of breath on exertion Sleep apnea Syncope Thyroid disease Traumatic injury to skin or subcutaneous tissue Urinary incontinence Urine retention Uses wheelchair Ventricular ectopy Vitamin B12 deficiency Walker as ambulation aid Wears dentures Wears glasses Home Medications albuterol sulfate 90 mcg/actuation aerosol inhaler 2 puff inhalation Q6H PRN PRN Sob &/Or Wheezing 03/30/18 [History Last Taken 2 Weeks Ago ~01/12/23] cyanocobalamin (vitamin B-12) 1,000 mcg/mL injection solution 1,000 mcg IM Q30D DEFICIENCY 05/28/18 [History Last Taken 1 Month Ago ~12/26/22] Cbd Oil 1 dose PO DAILY PRN Pain 07/30/19 [History Last Taken 07/16/19] acetaminophen 325 mg tablet 650 mg PO Q6H PRN PRN Pain Score 1-3/Temp > 100.7 F 08/01/19 [Rx Last Taken Unknown] tamsulosin 0.4 mg capsule 0.4 mg PO DAILY bladder 04/09/21 [History Last Taken 01/25/23] alpha lymphatic acid 1 dose IV MONTHLY 03/30/22 [History Last Taken 2 Months Ago ~11/26/22] spironolactone 25 mg tablet 25 mg PO DAILY #90 tabs 03/30/22 [Rx Last Taken 01/25/23] Marijuana 1 dose OTHER QODAY 05/23/22 [History Last Taken Unknown] oxcarbazepine 150 mg tablet 150 mg PO BID #60 tabs 07/04/22 [Rx Last Taken 01/25/23] oxcarbazepine 300 mg tablet 300 mg PO BID neuropathy #60 tabs 07/04/22 [Rx Last Taken 01/25/23] valsartan 320 mg tablet 320 mg PO DAILY #90 tabs 10/21/22 [Rx Last Taken 01/25/23] rivaroxaban 20 mg tablet (Xarelto) 20 mg PO DAILY #30 tabs 12/27/22 [Rx Last Taken 01/25/23] furosemide 40 mg tablet (Lasix) 40 mg PO .COMPLEX #180 tabs 01/06/23 [Rx Last Taken 01/25/23] finasteride 5 mg tablet 5 mg PO DAILY PROSTATE 01/26/23 [History Last Taken 01/25/23] metoprolol tartrate 50 mg tablet 50 mg PO TID 01/26/23 [History Last Taken 01/26/23] Allergy/AdvReac Type Severity Reaction Status Date / Time duloxetine [From Cymbalta] AdvReac Other Verified 12/27/22 09:26 Family History Mother Diabetes Thyroid disorder Father Diabetes Heart disease CABG x5 in his 50s COPD (chronic obstructive pulmonary disease) Hypertension Other Arthritis Lupus Surgical History H/O gastric bypass History of cardiac catheterization History of cardioversion (~08/10/21) History of esophagogastroduodenoscopy (EGD) History of hand surgery History of hernia repair History of left heart catheterization (04/30/21) Status post removal of thyroid nodule Social History Smoking Status: Former smoker how long ago did patient quit smokin years ago second hand exposure: No alcohol intake: current alcohol intake frequency: a few times a week details: 4-6 cans (12 oz) of beer a couple times per week substance use type: marijuana caffeine: No what type of physical activity do you participate in: none frequency: decline to answer khloe/taoism: Jain seatbelt use: never ROS ROS ED Review of Systems ROS Unobtainable: other Constitutional Constitutional ED: Reports lethargy; Denies chills, fever(s), sweats or weight loss Eyes Eyes: Denies blurry vision, change in vision or diplopia ENT ENT ED: Denies rhinorrhea or sore throat Cardiovascular Cardiovascular: Reports racing heartbeat; Denies chest pain or orthopnea Respiratory/Chest Respiratory/Chest: Denies cough, dyspnea, dyspnea on exertion, orthopnea or sputum Gastrointestinal Gastrointestinal: Denies abdominal pain, diarrhea, nausea or vomiting Genitourinary Genitourinary ED: Denies dysuria, hematuria or urinary frequency Musculoskeletal Musculoskeletal: Denies arthralgias, back pain, myalgias or neck pain Integumentary Denies abscess, Abrasions or rash Neurologic Neurologic: Reports weakness; Denies headache(s) Psychiatric Psychiatric: Denies anxiety, depression or suicidal thoughts Endocrine Endocrinology: Denies polydipsia, polyphagia or polyuria Hematologic/Lymphatic Hematologic/Lymphatic: Denies easy bleeding, easy bruising or lymphadenopathy Allergic/Immunologic Allergic/Immunologic ED: Denies mouth swelling, tongue swelling or urticaria EXAM Physical Exam Const Vital Signs: 01/26/23 09:28 01/26/23 11:18 01/26/23 11:27 Temperature 96.4 F L Temperature Source Temporal Pulse Rate 83 97 Respiratory Rate 24 H 16 Respiratory Pattern Normal Blood Pressure 123/86 H 129/74 H Blood Pressure Mean 98 92 Pulse Ox 100 98 Oxygen Delivery Method Room Air Room Air Positive well nourished and well developed General Appearance ED: well developed and NAD HEENT Reports TM's clear and moist mucous membranes normocephalic and atraumatic; Negative for trauma or tenderness Tympanic Membrane ED: Yes TM's clear Eyes PERRL and EOMs intact bilaterally General Eye ED: Negative for pale conjunctiva or scleral icterus Neck no lymphadenopathy, supple and no JVD General: Negative for tenderness Chest Wall inspection of chest normal and palpation of chest normal Chest: Negative for tenderness Resp normal respiratory effort and clear to auscultation bilaterally Effort and Inspection: Negative for respiratory distress or pain with movement Auscultation: Negative for rhonchi, wheezes or diminished lung sounds Cardio regular rate, regular rhythm, S1 normal heart sound, S2 normal heart sound and no murmurs Peripheral Pulses: pulses 2+ throughout GI normal to inspection, nondistended, normoactive bowel sounds, soft to palpation, non-tender, non-distended and no masses Back/Spine no CVA tenderness and no thoracic nor lumbar tenderness Extremity normal to inspection General Extremety ED: Negative for edema General Extremity: Negative for edema Neuro oriented x3, CN's II-XII intact bilaterally, no sensory deficits noted and gait normal Sensorium / Orientation: awake, alert, oriented to person, oriented to place and oriented to time Motor Exam: strength 5/5 throughout and strength abnormal Psych mental status grossly normal Skin no rashes or lesions noted and no wounds MDM MDM MDM Narrative Medical decision making narrative: Patient presents with generalized weakness could have large differential including cardiac etiology versus infectious etiology versus related to his A-fib. Patient retaining fluids and this could be related to kidney failure versus CHF. IV line established on arrival. EKG obtained showed atrial fibrillation with a rate of [address] changes. CBC with differential white count of 8.2 with a hemoglobin of 15 and hematocrit of 42 as well as a platelet count of 284. History date sodium of 115 with a potassium of 4.3. BUN was 7 and creatinine 0.71. Alk phos was 201. LFTs normal. Troponin was normal at 13. Chest x-ray obtained showed no acute disease process. At this point I suspect patient's generalized weakness likely related to the hyponatremia. He has been using diuretics as he has been retaining water in his lower extremities he is also describing decreased urine output therefore I suspect likely hypovolemic hyponatremia. Patient will be started on normal saline to 50 cc an hour. Case will be discussed with hospitalist to evaluate patient for admission. Lab Data Attestation: I reviewed the patient's lab results. Labs: Laboratory Results - last 24 hr 01/26/23 01/26/23 01/26/23 10:25 10:25 10:25 WBC 8.2 RBC 4.60 Hgb 15.0 Hct 41.8 MCV 90.9 MCH 32.6 H MCHC 35.9 RDW Std Deviation 48.0 H RDW Coeff of Tasha 14.4 Plt Count 284 MPV 9.2 Immature Gran % (Auto) 0.500 Neut % (Auto) 76.1 H Lymph % (Auto) 14.4 L Phillips % (Auto) 7.1 Eos % (Auto) 1.5 Baso % (Auto) 0.4 Absolute Neuts (auto) 6.2 Absolute Lymphs (auto) 1.18 Nucleated RBC % 0 Sodium 115 L* Potassium 4.3 Chloride 77 L Carbon Dioxide 27.0 Anion Gap 11 BUN 7 Creatinine 0.71 Estim Creat Clear Calc 127.03 Est GFR (MDRD) Af Amer 145 Est GFR (MDRD) Non-Af 120 BUN/Creatinine Ratio 9.9 L Glucose 124 H Calcium 7.3 L Total Bilirubin 0.50 AST 23 ALT 21 Alkaline Phosphatase 201 H Troponin I High Sens 13 B-Natriuretic Peptide 50.4 Total Protein 6.6 Albumin 2.4 L Globulin 4.2 Albumin/Globulin Ratio 0.6 L Radiography Diagnostic Testing: Clinical Impression(s) from Imaging Studies Chest X-Ray 01/26/23 10:07 IMPRESSION: No acute abnormality is seen. Electronically Signed: Cole Hopper MD at 10:50 EDT , 1 view chest are obtained interpreted by myself as no evidence of infiltrate or CHF or pneumothorax. No acute disease process. Radiology in agreement. EKG Initial EKG: Attestation: I personally reviewed and interpreted this EKG as follows: Comments: A-fib with rate of [address] changes Discharge Plan Dx/Rx/DC Orders Clinical Impression: Acute hyponatremia, Weakness, Atrial fibrillation Disposition Disposition: Acute Care Hospital [facility]
[2023-01-26 10:44] LABS: Absolute Lymphocyte Count 1.18 X10^3/uL (0.83-4.51); Absolute Neutrophil Count 6.2 X10^3/uL (2.0-7.7); Basophil# 0.03 X10^3/uL; Basophil% 0.4 % (0-1); Eosinophil# 0.12 X10^3/uL; Eosinophils% 1.5 % (0-5); Hematocrit 41.8 % (40-54); Lymphocyte # 1.18 X10^3/ul (0.83-4.51); Lymphocyte % 14.4 % (19-41); Mean Corp Hgb Conc 35.9 g/dL (32-36); Mean Corpuscular Hgb 32.6 pg (27.0-32.0); Mean Corpuscular Volume 90.9 fL (80-94); Mean Platelet Vol. 9.2 fl (6.2-12.0); Monocyte# 0.58 X10^3/uL; Monocyte% 7.1 % (0-10); NRBC Flagged by Analyzer 0 % (0-5); Neutrophil # 6.22 X10^3/uL (2.7-7.7); Neutrophil % 76.1 % (47-70); Platelet Count 284 K/mm3 (150-450); RBC Distribution Width CV 14.4 % (11.6-14.6); White Blood Count 8.2 K/mm3 (4.4-11.0)
[2023-01-26 11:15] LABS: ALB/GLOB Ratio 0.6 RATIO (0.9-2.4); AST(SGOT) 23 U/L (15-37); Alanine Aminotransfer ALT/SGPT 21 U/L (16-61); Albumin, Serum 2.4 g/dL (3.2-5.0); Alkaline Phosphatase 201 U/L (45-117); Anion Gap 11 (5-15); BUN 7 mg/dL (7-18); BUN/Creat Ratio 9.9 RATIO (10-20); Calcium,Total 7.3 mg/dL (8.5-10.1); Chloride 77 mmol/L (98-107); Creatinine, Serum 0.71 mg/dL (0.70-1.30); EST Glomerular Filtration Rate 120 mL/min (>60); Est Glom Filt Rate - Afr Amer 145 mL/min (>60); Estimated Creatinine Clearance 127.03 ml/min; Globulin 4.2 g/dL (2.2-4.2); Glucose 124 mg/dL (74-106); Potassium 4.3 mmol/L (3.5-5.1); Protein, Total 6.6 g/dL (6.4-8.2); Sodium Level 115 mmol/L (136-145); Troponin-I HS 13 pg/mL (3.0-78.0)
[2023-01-26] MEDS: 0.9% Normal Saline 1,000 ML 250 ML IV ×2 (11:26→15:32)
[2023-01-26 11:30] LABS: BNP,B-Type NATRIURETIC PEPTIDE 50.4 pg/mL (0-100)
[2023-01-26 11:40] LABS: Mucous, Urine 0 SEEN /hpf (<or=2+)
[2023-01-26 11:43] LABS: Color, Urine Yellow (Yellow); Glucose, Dipstick Normal (Normal); Ketone-Dipstick 5 mg/dl (Negative); Leukocyte Esterase-Dipstick 500 /ul (Negative); Nitrite-Dipstick Positive (Negative); Occult Blood-Urine 10 /ul (Negative); Protein-Dipstick Negative (Negative); Specific Gravity, Urine 1.015 (1.002-1.030); Urine Bilirubin Dipstick Negative (Negative); Urine Clarity Sl. Cloudy (Clear); Urine Urobilinogen 1 mg/dl (Normal)
[2023-01-26 11:50] LABS: Bacteria 2+ /hpf (None Seen); Red Blood Cells-Urine 0-5 SEEN /hpf (0-5); Squamous Epithelial Cells - UA 0-5 SEEN /hpf (0-5); White Blood Cells 25-50 SEEN /hpf (0-5)
--- NOTE | 2023-01-26 12:05 | HP.PCM.HOS_ITS ---
HPI - General General Date of Admission: 01/26/23 Date of Service: 01/26/23 Chief Complaint: Intermittent weakness and light headedness HPI Narrative CARLIN SMITH, is a 62 M with a history of paroxysmal atrial fibrillation, hypertension, cardiomyopathy, morbid obesity with history of gastric bypass who presented to [facility] 01/26/2023 with some intermittent lightheadedness and intermittent weakness. He has a history of atrial fibrillation and had this problem of lightheadedness and weakness for years off and on until he had a cardioversion 2 years ago and that resolved. Has been having this problem again for the past couple of months and was supposed get an EKG today and possible future cardioversion however had difficulty making it to the car due to weakness so he came to the hospital instead. In the ED vital stable, kidney function close to baseline, sodium 115 with a chloride of 77 BUN of 7 and a creatinine of 0.71 and a BNP of 50. Hospitalist consulted for admission. Patient reports that yesterday he had a good day but today has been feeling somewhat woozy and lightheaded but that this comes and goes on a moment to moment basis and day-to-day basis. Has chronic neuropathy in his feet, occasionally gets headaches as well. Denied chest pain or shortness of breath. Did recently start furosemide and got 2 doses of metolazone due to swelling in his lower extremities. Confirmed he takes Trileptal actively and takes this for neuropathy. Does occasionally have diarrhea right after he eats and reports that this is a chronic problem for him as he had a early on gastric bypass in 1991 when it was still experimental. Did not have any other specific complaints at this time. [facility] Medical History Abdominal wall pain ADD (attention deficit disorder) Alcohol use Ambulates with cane Anemia Anxiety Arthritis Atrial fibrillation Atrial fibrillation with rapid ventricular response Atrial flutter Back pain Blackout Bladder disease BPH (benign prostatic hyperplasia) Calcium deficiency Cardiology follow-up encounter Cardiomyopathy Cardiomyopathy CHI (closed head injury) Chronic atrial fibrillation Chronic pain CPAP (continuous positive airway pressure) dependence Debility Depression DVT (deep venous thrombosis) Dysphagia Dysuria Easy bruising Essential hypertension Excessive bleeding Fibromyalgia Former smoker Gastric reflux Gout History of atrial fibrillation History of DVT (deep vein thrombosis) History of echocardiogram History of edema History of hiatal hernia History of Holter monitoring History of rheumatic fever History of sepsis History of stress test History of ulceration HTN (hypertension) Internal impingement of right shoulder Left fibular fracture Leg cramps Marijuana use Morbid obesity MRSA infection Neuropathy Paroxysmal atrial fibrillation Paroxysmal ventricular tachycardia Prostate disease PTSD (post-traumatic stress disorder) Restless legs Rheumatic fever Right shoulder pain Shortness of breath on exertion Sleep apnea Syncope Thyroid disease Traumatic injury to skin or subcutaneous tissue Urinary incontinence Urine retention Uses wheelchair Ventricular ectopy Vitamin B12 deficiency Walker as ambulation aid Wears dentures Wears glasses Home Medications albuterol sulfate 90 mcg/actuation aerosol inhaler 2 puff inhalation Q6H PRN PRN Sob &/Or Wheezing 03/30/18 [History Last Taken 2 Weeks Ago ~01/12/23] cyanocobalamin (vitamin B-12) 1,000 mcg/mL injection solution 1,000 mcg IM Q30D DEFICIENCY 05/28/18 [History Last Taken 1 Month Ago ~12/26/22] Cbd Oil 1 dose PO DAILY PRN Pain 07/30/19 [History Last Taken 07/16/19] acetaminophen 325 mg tablet 650 mg PO Q6H PRN PRN Pain Score 1-3/Temp > 100.7 F 08/01/19 [Rx Last Taken Unknown] tamsulosin 0.4 mg capsule 0.4 mg PO DAILY bladder 04/09/21 [History Last Taken 01/25/23] alpha lymphatic acid 1 dose IV MONTHLY 03/30/22 [History Last Taken 2 Months Ago ~11/26/22] spironolactone 25 mg tablet 25 mg PO DAILY #90 tabs 03/30/22 [Rx Last Taken 01/25/23] Marijuana 1 dose OTHER QODAY 05/23/22 [History Last Taken Unknown] oxcarbazepine 150 mg tablet 150 mg PO BID #60 tabs 07/04/22 [Rx Last Taken 01/25/23] oxcarbazepine 300 mg tablet 300 mg PO BID neuropathy #60 tabs 07/04/22 [Rx Last Taken 01/25/23] valsartan 320 mg tablet 320 mg PO DAILY #90 tabs 10/21/22 [Rx Last Taken 01/25/23] rivaroxaban 20 mg tablet (Xarelto) 20 mg PO DAILY #30 tabs 12/27/22 [Rx Last Taken 01/25/23] furosemide 40 mg tablet (Lasix) 40 mg PO .COMPLEX #180 tabs 01/06/23 [Rx Last Taken 01/25/23] finasteride 5 mg tablet 5 mg PO DAILY PROSTATE 01/26/23 [History Last Taken 01/25/23] metoprolol tartrate 50 mg tablet 50 mg PO TID 01/26/23 [History Last Taken 01/26/23] Allergy/AdvReac Type Severity Reaction Status Date / Time duloxetine [From Cymbalta] AdvReac Other Verified 12/27/22 09:26 Family History Mother Diabetes Thyroid disorder Father Diabetes Heart disease CABG x5 in his 50s COPD (chronic obstructive pulmonary disease) Hypertension Other Arthritis Lupus Surgical History H/O gastric bypass History of cardiac catheterization History of cardioversion (~08/10/21) History of esophagogastroduodenoscopy (EGD) History of hand surgery History of hernia repair History of left heart catheterization (04/30/21) Status post removal of thyroid nodule Social History Smoking Status: Former smoker how long ago did patient quit smokin years ago second hand exposure: No alcohol intake: current alcohol intake frequency: a few times a week details: 4-6 cans (12 oz) of beer a couple times per week substance use type: marijuana caffeine: No what type of physical activity do you participate in: none frequency: decline to answer khloe/yarsani: Latter-[employer] seatbelt use: never ROS ROS Narrative General: Denies fever/chills HENT: Occasional headaches, denies stuffy nose, denies sore throat EYES: Denies changes in vision at this time Resp: Denies cough, denies shortness of breath Cardiac: Denies chest pain GI: Denies abdominal pain, some intermittent chronic diarrhea, denies nausea/vomiting : Denies changes in urination Extremity: Chronic lower extremity swelling MSK: Intermittent generalized weakness Neuro: Chronic neuropathy in extremities Heme: Denies any bleeding or bruising Skin: Denies rashes Psychiatric: No complaints voiced Vital Signs Vital Signs Vital Signs: 01/26/23 09:28 01/26/23 11:18 01/26/23 11:27 Temperature 96.4 F L Temperature Source Temporal Pulse Rate 83 97 Respiratory Rate 24 H 16 Respiratory Pattern Normal Blood Pressure 123/86 H 129/74 H Blood Pressure Mean 98 92 Pulse Ox 100 98 Oxygen Delivery Method Room Air Room Air 01/26/23 11:31 Temperature 96.3 F L Temperature Source Temporal Pulse Rate 83 Respiratory Rate 15 Respiratory Pattern Blood Pressure 112/63 Blood Pressure Mean 79 Pulse Ox 99 Oxygen Delivery Method Room Air Weight Weight: 208.2 kg Body Mass Index (BMI) 58.9 Physical Exam Narrative General: Alert, oriented, no apparent distress HEENT: Atraumatic, normocephalic Eyes: Anicteric, normal conjunctiva, extraocular movements grossly intact Neck: Supple Respiratory: No crackles or wheezes appreciated but difficult to use to assess secondary to body habitus, normal respiratory effort Cardiovascular: Regular rate and rhythm GI: Soft, nontender, nondistended Extremities: Trace lower extremity edema Musculoskeletal: Moving all extremities Neuro: No overt focal neurological deficits Skin: No rashes appreciated Psych: Cooperative Results Lab / Micro Data Result Diagrams: 01/26/23 10:25 01/26/23 15:30 Labs: Laboratory Results - last 24 hr 01/26/23 10:25: WBC 8.2, RBC 4.60, Hgb 15.0, Hct 41.8, MCV 90.9, MCH 32.6 H, MCHC 35.9, RDW Std Deviation 48.0 H, RDW Coeff of Tasha 14.4, Plt Count 284, MPV 9.2, Immature Gran % (Auto) 0.500, Neut % (Auto) 76.1 H, Lymph % (Auto) 14.4 L, [place] % (Auto) 7.1, Eos % (Auto) 1.5, Baso % (Auto) 0.4, Absolute Neuts (auto) 6.2, Absolute Lymphs (auto) 1.18, Nucleated RBC % 0 01/26/23 10:25: Sodium 115 L*, Potassium 4.3, Chloride 77 L, Carbon Dioxide 27.0, Anion Gap 11, BUN 7, Creatinine 0.71, Estim Creat Clear Calc 127.03, Est GFR (MDRD) Af Amer 145, Est GFR (MDRD) Non-Af 120, BUN/Creatinine Ratio 9.9 L, Glucose 124 H, Calcium 7.3 L, Total Bilirubin 0.50, AST 23, ALT 21, Alkaline Phosphatase 201 H, Troponin I High Sens 13, Total Protein 6.6, Albumin 2.4 L, Globulin 4.2, Albumin/Globulin Ratio 0.6 L 01/26/23 10:25: B-Natriuretic Peptide 50.4 01/26/23 11:36: Urine Color Yellow, Urine Clarity Sl. Cloudy, Urine pH 6.0, Ur Specific [place] 1.015, Urine Protein Negative, Urine Glucose (UA) Normal, Urine Ketones 5 H, Urine Occult Blood 10 H, Urine Nitrite Positive H, Urine Bilirubin Negative, Urine Urobilinogen 1 H, Ur Leukocyte Esterase 500 H, Urine RBC 0-5 SEEN, Urine WBC 25-50 SEEN, Ur Squamous Epith Cells 0-5 SEEN, Urine Bacteria 2+, Urine Mucus 0 SEEN Micro: Microbiology 01/26/23 10:25 Nasal Secretion SARS-CoV-2 & FLU Antigen (Rapid) - Final Radiology Impression Chest X-Ray 01/26/23 10:07 IMPRESSION: No acute abnormality is seen. Electronically Signed: Cole Hopper MD at 10:50 EDT , Assessment & Plan Assessment/Plan (1) Acute hyponatremia: (2) Weakness: (3) Atrial fibrillation: (4) DARLIN (obstructive sleep apnea): PLAN: Plan #Severe hyponatremia -Unclear chronicity, did have normal serum sodium in December however acute hyponatremia would be less than 48 hours -Serum sodium on admission 115 -Patient has various nonspecific complaints that wax and wane and he reports yesterday he had a good day and then today he was feeling weaker and lightheaded but said this has been off and on for years so difficult to assess any symptoms attributable to the hyponatremia, no seizures -Is on Trileptal which is known for causing hyponatremia, also recently had 2 doses of metolazone and recently started Lasix 40 mg daily with an extra 40 mg if needed -May be hypovolemia versus SIADH -Does not appear volume overloaded -Patient receiving normal saline in the ED -We will trend BMPs -Urine osmolality, serum osmolality -Urine lytes and urine urea ?BNP 50, BUN 7 with creatinine of 0.71 which is similar to baseline -UA did have nitrate, leuk esterase with some white blood cells and 2+ bacteria -No other signs or symptoms of infection so we will hold off on treating at this time as unclear clinical relevance -I's and O's, daily weights #Atrial fibrillation -Continue Xarelto and beta-gali -Unclear why his metoprolol is dosed 3 times daily, will look into this -Follows with cardiology on an outpatient basis #Morbid obesity -BMI 57.2 kg/m? -Complicates treatment, prognosis, outcomes -Recommend weight loss and lifestyle changes #History of gastric bypass -Continue daily B12 supplementation #Hypertension -Continue losartan #DVT ppx: On Xarelto Shobha Gomez MD Time spent in the patient's overall evaluation,decision-making process, review of diagnostic data, adjustment of management, discussion with other providers, nursing nursing and ancillary staff involved in patient's care documentation, 72 minutes Charges/Coding Visit Charges Inpatient E&M: 76591 Init Hosp L3
[2023-01-26 12:47] LABS: Magnesium 1.9 mg/dL (1.6-2.6); Phosphorus 2.5 mg/dL (2.5-4.9)
[2023-01-26 14:04] LABS: Osmolality, Serum 244 mOsm/KG (280-301)
[2023-01-26 14:05] LABS: Osmolality, Urine 341 mOsm/KG
[2023-01-26 14:14] LABS: Urea Nitrogen, Urine 447 mg/dL (NO RANGE EST.); Urine Chloride 17 mmol/L (Not Establ.); Urine Sodium 18 mmol/L (Not Establ.)
[2023-01-26 14:20] LABS: Vitamin B12 417 pg/mL (211-911)
[2023-01-26 14:23] LABS: Anion Gap 11 (5-15); BUN 7 mg/dL (7-18); Calcium,Total 7.5 mg/dL (8.5-10.1); Chloride 78 mmol/L (98-107); Creatinine, Serum 0.64 mg/dL (0.70-1.30); EST Glomerular Filtration Rate 136 mL/min (>60); Est Glom Filt Rate - Afr Amer 164 mL/min (>60); Estimated Creatinine Clearance 140.92 ml/min; Glucose 116 mg/dL (74-106); Potassium 4.6 mmol/L (3.5-5.1); Sodium Level 117 mmol/L (136-145)
[2023-01-26] MEDS: Metoprolol Tartrate 50 MG Tablet PO ×2 (14:27→22:05)
[2023-01-26] MEDS: Cyanocobalamin (B12) 1,000 MCG/ML Vial 1000 MCG IM (14:28)
[2023-01-26 16:48] LABS: Anion Gap 11 (5-15); BUN 7 mg/dL (7-18); BUN/Creat Ratio 9.1 RATIO (10-20); Calcium,Total 7.4 mg/dL (8.5-10.1); Chloride 80 mmol/L (98-107); Creatinine, Serum 0.77 mg/dL (0.70-1.30); EST Glomerular Filtration Rate 110 mL/min (>60); Est Glom Filt Rate - Afr Amer 133 mL/min (>60); Estimated Creatinine Clearance 117.13 ml/min; Glucose 121 mg/dL (74-106); Sodium Level 118 mmol/L (136-145)
[2023-01-26] MEDS: Acetaminophen 325 MG Tablet 650 MG PO (17:56)
[2023-01-26 18:35] LABS: Anion Gap 10 (5-15); BUN 7 mg/dL (7-18); BUN/Creat Ratio 11.3 RATIO (10-20); Calcium,Total 7.3 mg/dL (8.5-10.1); Chloride 83 mmol/L (98-107); Creatinine, Serum 0.62 mg/dL (0.70-1.30); EST Glomerular Filtration Rate 140 mL/min (>60); Est Glom Filt Rate - Afr Amer 170 mL/min (>60); Estimated Creatinine Clearance 145.47 ml/min; Glucose 128 mg/dL (74-106); Potassium 4.2 mmol/L (3.5-5.1); Sodium Level 119 mmol/L (136-145)
[2023-01-26 19:30] LABS: Anion Gap 7 (5-15); BUN 7 mg/dL (7-18); BUN/Creat Ratio 9.2 RATIO (10-20); Calcium,Total 7.2 mg/dL (8.5-10.1); Chloride 83 mmol/L (98-107); Creatinine, Serum 0.76 mg/dL (0.70-1.30); EST Glomerular Filtration Rate 110 mL/min (>60); Est Glom Filt Rate - Afr Amer 133 mL/min (>60); Estimated Creatinine Clearance 118.67 ml/min; Glucose 133 mg/dL (74-106); Potassium 4.3 mmol/L (3.5-5.1); Sodium Level 118 mmol/L (136-145)
[2023-01-26] MEDS: 0.9% Saline Lock 10 ML Syringe IV (20:19)
[2023-01-26] MEDS: DOXEPIN HCL 50 MG CAPSULE PO (22:05)
[2023-01-26 22:25] LABS: Anion Gap 9 (5-15); BUN 8 mg/dL (7-18); BUN/Creat Ratio 13.6 RATIO (10-20); Calcium,Total 7.1 mg/dL (8.5-10.1); Chloride 84 mmol/L (98-107); Creatinine, Serum 0.59 mg/dL (0.70-1.30); EST Glomerular Filtration Rate 148 mL/min (>60); Est Glom Filt Rate - Afr Amer 179 mL/min (>60); Estimated Creatinine Clearance 152.87 ml/min; Glucose 122 mg/dL (74-106); Potassium 4.1 mmol/L (3.5-5.1); Sodium Level 120 mmol/L (136-145)
[2023-01-27] VITALS (8 sets, daily range): BP systolic 99–130; BP diastolic 57–68; PULSE 82–88; RESP 14–18; TEMP 36.5–36.9; O2SAT 95–100; BMI 56.7
--- NOTE | 2023-01-27 01:21 | CPS ---
Patient did not wish to wear our BIPAP/CPAP machine at this time; He states he will have someone bring his in from home if he is going to be staying more than one night. RT placed patient on 2 liter NC instead.
[2023-01-27 02:35] LABS: Anion Gap 9 (5-15); BUN 7 mg/dL (7-18); Calcium,Total 7.1 mg/dL (8.5-10.1); Chloride 84 mmol/L (98-107); Creatinine, Serum 0.58 mg/dL (0.70-1.30); EST Glomerular Filtration Rate 150 mL/min (>60); Est Glom Filt Rate - Afr Amer 182 mL/min (>60); Glucose 115 mg/dL (74-106); Potassium 4.1 mmol/L (3.5-5.1); Sodium Level 120 mmol/L (136-145)
[2023-01-27 05:52] LABS: Absolute Lymphocyte Count 1.35 X10^3/uL (0.83-4.51); Absolute Neutrophil Count 3.8 X10^3/uL (2.0-7.7); Basophil# 0.03 X10^3/uL; Basophil% 0.5 % (0-1); Eosinophil# 0.13 X10^3/uL; Eosinophils% 2.2 % (0-5); Hematocrit 40.6 % (40-54); Hemoglobin 14.2 g/dL (13.0-16.5); Lymphocyte # 1.35 X10^3/ul (0.83-4.51); Lymphocyte % 22.5 % (19-41); Mean Corpuscular Hgb 32.6 pg (27.0-32.0); Mean Corpuscular Volume 93.3 fL (80-94); Mean Platelet Vol. 9.5 fl (6.2-12.0); Monocyte# 0.62 X10^3/uL; Monocyte% 10.4 % (0-10); NRBC Flagged by Analyzer 0 % (0-5); Neutrophil # 3.83 X10^3/uL (2.7-7.7); Neutrophil % 63.9 % (47-70); Platelet Count 256 K/mm3 (150-450); RBC Distribution Width CV 14.5 % (11.6-14.6); RBC Distribution Width SD 50.1 fl (35.1-43.9); Red Blood Count 4.35 M/mm3 (4.6-6.2)
[2023-01-27] MEDS: Metoprolol Tartrate 50 MG Tablet PO ×3 (06:11→20:24)
[2023-01-27] MEDS: Nystatin Powder 15gm Bottle 1 APPLIC TOPICAL ×3 (06:11→20:24)
[2023-01-27 06:28] LABS: ALB/GLOB Ratio 0.6 RATIO (0.9-2.4); AST(SGOT) 21 U/L (15-37); Alanine Aminotransfer ALT/SGPT 19 U/L (16-61); Albumin, Serum 2.2 g/dL (3.2-5.0); Alkaline Phosphatase 168 U/L (45-117); Anion Gap 8 (5-15); BUN 7 mg/dL (7-18); BUN/Creat Ratio 12.2 RATIO (10-20); Calcium,Total 7.3 mg/dL (8.5-10.1); Chloride 86 mmol/L (98-107); Creatinine, Serum 0.58 mg/dL (0.70-1.30); EST Glomerular Filtration Rate 152 mL/min (>60); Est Glom Filt Rate - Afr Amer 184 mL/min (>60); Globulin 3.7 g/dL (2.2-4.2); Glucose 109 mg/dL (74-106); Potassium 3.5 mmol/L (3.5-5.1); Protein, Total 5.9 g/dL (6.4-8.2); Sodium Level 123 mmol/L (136-145); Thyroid Stim Hormone (TSH) 3.39 uIU/mL (0.358-3.74)
[2023-01-27] MEDS: Acetaminophen 325 MG Tablet 650 MG PO ×4 (10:12→21:57)
[2023-01-27] MEDS: Tamsulosin HCl 0.4 MG Capsule PO (10:40)
[2023-01-27] MEDS: Finasteride 5 MG Tablet PO (10:40)
--- NOTE | 2023-01-27 13:14 | PCM.TXEXTCAR ---
Diet Diet Order/Speech Therapy: 01/26/23 14:35 Diet: Cardiac: Calorie-Controlled Food consistency:: Regular Liquid Consistency:: Regular/Thin How many daily calories?: 1999 calorie Routine Orders/Code Status O2 Liters per Minute: NIPPV nightly Routine Lab Work: BMP (In 2 to 3 days) Code Status: Full Code Wound(s) RLE: Wound Type: Abrasion Therapies Physical Therapy: Eval and Treat Occupational Therapy: Eval and Treat Problem/Diagnosis (1) Acute hyponatremia: Status: Acute Code(s): E87.1 - Hypo-osmolality and hyponatremia (2) Weakness: Status: Acute Code(s): R53.1 - Weakness (3) Atrial fibrillation: Status: Acute Code(s): I48.91 - Unspecified atrial fibrillation (4) DARLIN (obstructive sleep apnea): Status: Acute Code(s): G47.33 - Obstructive sleep apnea (adult) (pediatric) Plan #Severe hyponatremia-suspect mixed picture with volume depletion and 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 He has a history of atrial fibrillation and had this problem of lightheadedness and weakness for years off and on until he had a cardioversion 2 years ago and that resolved.? Has been having this problem again for the past couple of months and was supposed get an EKG on the day of the admission and possible future cardioversion however had difficulty making it to the car due to weakness so he came to the hospital instead.? In the ED vital stable, kidney function close to baseline, sodium 115 with a chloride of 77 BUN of 7 and a creatinine of 0.71 and a BNP of 50. Hospitalist consulted for admission.? Patient had endorsed the symptoms were off and on and chronic in nature. He had been given IV fluids and his Trileptal was discontinued as well as were his Lasix and it was revealed that he had 2 doses of metolazone this past week as well. With these measures his sodium lavinia appropriately. Suspect given new Lasix prescription with metolazone on top of his Trileptal that this was a combination of volume depletion as well as SIADH secondary to medications and this is improving with current measures though continues to report intermittent problems still with lightheadedness and weakness that have been attributable to his A-fib in the past and also he reports he has not been getting his elbow lymphatic acid IV monthly for the past 2 months and attributes a lot of this symptomatology to that. Discussed going to SNF due to his diffuse weakness and he was agreeable. Did not have his home NIPPV last night and would not use her mask so he had 2 L of O2, stressed importance of bringing mask in from home and he will have somebody attempt to bring this. Telemetry without any overwhelming abnormalities overnight. Given sodium has continued to appropriately rise feel patient can pursue placement. Allergies/Procedures Done in Hospital Allergies duloxetine [From Cymbalta] Adverse Reaction (Verified 12/27/22 09:26) Other SERATONIN SYNDROME Type of Care/Length of Stay Estimated LOS: Convalescent Care Less Than 30 days Type of Care Needed: Skilled Rehab Potential: Fair Prognosis: Fair Additional Orders/Day of Discharge Day of Discharge: 01/27/23 Dietary and Speech Recommendations Dietitian Recommendations/Changes: Will change diet to 2000 calorie/consistent carbohydrate; cardiac. Given hx of esophageal stenosis and dysphagia ? ability to adequately swallow, consider TOPOGRAPHICAL SURVEYOR consult. Diet education as pt willing. ONS only if PO deemed inadequate at meals. Discharge Plan Admission Admit Date/Time: 01/26/23 12:05 Primary Reason for Your Visit: Generalized weakness Attending Provider: Shobha Gomez Primary Care Provider: Chalo Mclean Chi Instructions Patient Instructions: ED Hyponatremia Additional Instructions / Restrictions: DISCHARGE INSTRUCTIONS PLEASE READ *Please take this with you to your next doctors appointment* -Would recommend lab work in 3 to 5 days to check your BMP to assess your sodium -Would hold Lasix for 2-3 more days and then resume on the 40 mg daily and would attempt to not increase above that unless monitoring BMP and weight closely. Can consider resuming spironolactone in the future pending future BMP and weights -Weigh yourself every day. A sudden weight gain can mean you are retaining fluid. Weigh yourself at the same time of day and in the same kind of clothes. Ideally, weigh yourself first thing in the morning after you empty your bladder, but before you eat breakfast. -Please call your physician if your weight goes up by more than 2 pounds in 1 day or 5 pounds in 1 week. This can be a sign that you are retaining more fluid than you should be. -Would recommend against resuming your Trileptal, can discuss with your neurologist regarding other medication options that are less likely to affect your sodium -Please follow-up with your impregnator electrolytic capacitors upon discharge for your atrial fibrillation -Please call your primary care provider's office upon discharge to schedule a hospital follow up within 1 week. -For any concerning signs or symptoms please call 911 or proceed to the nearest emergency department Discharge Orders/Prescriptions Prescriptions: Continued alpha lymphatic acid 1 dose IV MONTHLY Xarelto 20 mg tablet 20 mg PO DAILY Qty: 30 12RF Rx Instructions: must administer with evening meal albuterol sulfate 1 INHALER inhaler 2 puff INHALATION Q6H PRN PRN (Reason: Sob &/Or Wheezing) cyanocobalamin (vitamin B-12) 1,000 MCG/ML solution 1,000 mcg IM Q30D acetaminophen 325 MG tablet 650 mg PO Q6H PRN PRN (Reason: Pain Score 1-3/Temp > 100.7 F) 0RF tamsulosin 0.4 mg Capsule 0.4 mg PO DAILY finasteride 5 mg tablet 5 mg PO DAILY Label Comments: TAKE 1 TABLET BY MOUTH EVERY DAY metoprolol tartrate 50 mg tablet 50 mg PO TID doxepin 50 mg capsule 50 mg PO QHS Label Comments: TAKE 1 CAPSULE BY MOUTH AT BEDTIME valsartan 320 mg tablet 320 mg PO DAILY Qty: 90 3RF Held furosemide [Lasix] 40 mg tablet 40 mg PO .COMPLEX Qty: 180 3RF Hold Instructions: Resume on 01/30/23. Rx Instructions: 40 mg orally daily, may need to take an extra 40 mg d/t edema so please give 180 tablets; Discontinued spironolactone 25 mg tablet 25 mg PO DAILY Qty: 90 3RF oxcarbazepine 150 mg tablet 150 mg PO BID Qty: 60 5RF Rx Instructions: Take oxcarbazepine 150 mg 1 tablet PO twice daily along with oxcarbazepine 300 mg 1 tablet twice daily oxcarbazepine 300 mg tablet 300 mg PO BID Qty: 60 5RF Cbd Oil 1 dose PO DAILY PRN (Reason: Pain) Marijuana 1 dose OTHER QODAY Referrals / Follow Up: Chalo Mclean Chi, MD [Primary Care Provider] - Within 1 Week
--- NOTE | 2023-01-27 14:30 | CASEMGMT ---
ELIE SOSA Face to Face with patient for initial transition planning/care coordination assessment. RN SHEILA introduced self and role at [facility]. Patient lying in bed, alert and oriented. Patient willing to participate in assessment and is able to answer all questions appropriately. Care providers, pharmacy, and demographics verified. Patient wishes to discharge home. Patient states he will follow-up with PCP Dr. Mclean and arrange HHC after PCP visit, as Dr. Mclean requires to see his patients prior to HHC setup. Patient states he has no further needs or concerns at this time. CM to follow for discharge planning needs that may arise. PCP: Vinay Specialists: Kaleigh, neurologist; SHAMAR, steelscope operator Preferred Pharmacy: [facility] Insurance: [employer] Prescription Benefit: yes Living Will/HPOA: yes, niece nAgela ERVINOK: mother, sister, morning caregiver Living Arrangements: Patient lives with sister in a first story apartment with no steps to enter. Patient states he is independent at time but has aide that assists with ADLs. Transportation: Aide DME/HHC: Patient states he has shower chair, BSC, cane, walker, lift chair, grab bars, wheelchairs, and cpap at home. Patient has had HHC in the past setup by Dr. Mclean. Patient has previously been to [facility] and [facility]. Disposition Plan: Patient to discharge home with assistance from aide/caregiver and follow-up plans in place. Paty MORELAND, RN, CM
--- NOTE | 2023-01-27 14:56 | PCM.PN.HOSP ---
Reason for Visit Reason for Visit: Diagnoses Hypo-osmolality and hyponatremia (01/26/23) Obstructive sleep apnea (adult) (pediatric) (01/26/23) Unspecified atrial fibrillation (01/26/23) Weakness (01/26/23) Subjective Subjective Still has some lightheadedness and weakness but still come and go as they had before and symptoms do not seem to mirror sodium level Objective Data Objective Data Vital Signs: Vital Signs Temp Pulse Resp BP Pulse Ox O2 Del Method O2 Flow Rate 98.5 F 83 14 130/60 H 98 Room Air 2 01/27/23 14:40 01/27/23 14:46 01/27/23 14:40 01/27/23 14:46 01/27/23 14:40 01/27/23 14:40 01/27/23 06:06 Oxygen Flow Rate (L/min) 2 Oxygen Delivery Method Room Air Weight: 200.6 kg Body Mass Index (BMI) 56.7 Intake & Output: Intake and Output for Last 24 Hours 01/25/23 01/26/23 01/27/23 23:59 23:59 23:59 Intake Total 2088.34 / 2088.34 500 / 500 Output Total 2300 / 2300 4950 / 4950 Balance -211.66 / -211.66 -4450 / -4450 Lab / Micro Data Result Diagrams: 01/27/23 05:05 01/27/23 05:05 Labs: Laboratory Results - last 24 hr 01/26/23 15:30: Sodium 118 L*, Potassium 4.0, Chloride 80 L, Carbon Dioxide 27.0, Anion Gap 11, BUN 7, Creatinine 0.77, Estim Creat Clear Calc 117.13, Est GFR (MDRD) Af Amer 133, Est GFR (MDRD) Non-Af 110, BUN/Creatinine Ratio 9.1 L, Glucose 121 H, Calcium 7.4 L 01/26/23 17:30: Sodium 119 L*, Potassium 4.2, Chloride 83 L, Carbon Dioxide 26.0, Anion Gap 10, BUN 7, Creatinine 0.62 L, Estim Creat Clear Calc 145.47, Est GFR (MDRD) Af Amer 170, Est GFR (MDRD) Non-Af 140, BUN/Creatinine Ratio 11.3, Glucose 128 H, Calcium 7.3 L 01/26/23 19:05: Sodium 118 L*, Potassium 4.3, Chloride 83 L, Carbon Dioxide 28.0, Anion Gap 7, BUN 7, Creatinine 0.76, Estim Creat Clear Calc 118.67, Est GFR (MDRD) Af Amer 133, Est GFR (MDRD) Non-Af 110, BUN/Creatinine Ratio 9.2 L, Glucose 133 H, Calcium 7.2 L 01/26/23 22:00: Sodium 120 L, Potassium 4.1, Chloride 84 L, Carbon Dioxide 27.0, Anion Gap 9, BUN 8, Creatinine 0.59 L, Estim Creat Clear Calc 152.87, Est GFR (MDRD) Af Amer 179, Est GFR (MDRD) Non-Af 148, BUN/Creatinine Ratio 13.6, Glucose 122 H, Calcium 7.1 L 01/27/23 02:10: Sodium 120 L, Potassium 4.1, Chloride 84 L, Carbon Dioxide 27.0, Anion Gap 9, BUN 7, Creatinine 0.58 L, Estim Creat Clear Calc 155.50, Est GFR (MDRD) Af Amer 182, Est GFR (MDRD) Non-Af 150, BUN/Creatinine Ratio 12.0, Glucose 115 H, Calcium 7.1 L 01/27/23 05:05: Sodium 123 L, Potassium 3.5, Chloride 86 L, Carbon Dioxide 29.0, Anion Gap 8, BUN 7, Creatinine 0.58 L, Estim Creat Clear Calc 155.50, Est GFR (MDRD) Af Amer 184, Est GFR (MDRD) Non-Af 152, BUN/Creatinine Ratio 12.2, Glucose 109 H, Calcium 7.3 L, Total Bilirubin 0.50, AST 21, ALT 19, Alkaline Phosphatase 168 H, Total Protein 5.9 L, Albumin 2.2 L, Globulin 3.7, Albumin/Globulin Ratio 0.6 L, TSH 3.39 01/27/23 05:05: WBC 6.0, RBC 4.35 L, Hgb 14.2, Hct 40.6, MCV 93.3, MCH 32.6 H, MCHC 35.0, RDW Std Deviation 50.1 H, RDW Coeff of Tasha 14.5, Plt Count 256, MPV 9.5, Immature Gran % (Auto) 0.500, Neut % (Auto) 63.9, Lymph % (Auto) 22.5, Garrett % (Auto) 10.4 H, Eos % (Auto) 2.2, Baso % (Auto) 0.5, Absolute Neuts (auto) 3.8, Absolute Lymphs (auto) 1.35, Nucleated RBC % 0 Micro: Microbiology 01/26/23 10:25 Nasal Secretion SARS-CoV-2 & FLU Antigen (Rapid) - Final Physical Exam Narrative General: Alert, oriented, no apparent distress HEENT: Atraumatic, normocephalic Eyes: Anicteric, normal conjunctiva, extraocular movements grossly intact Neck: Supple Respiratory: No crackles or wheezes appreciated but difficult to use to assess secondary to body habitus, normal respiratory effort Cardiovascular: Regular rate and rhythm GI: Soft, nontender, nondistended Extremities: No lower extremity edema, wrinkles on legs Musculoskeletal: Moving all extremities Neuro: No overt focal neurological deficits Skin: Some chronic lower extremity changes Psych: Cooperative Assessment & Plan Assessment/Plan (1) Acute hyponatremia: (2) Weakness: (3) Atrial fibrillation: (4) DARLIN (obstructive sleep apnea): PLAN: Plan #Severe hyponatremia?improving -Unclear chronicity, did have normal serum sodium in December however acute hyponatremia would be less than 48 hours -Serum sodium on admission 115 -Patient has various nonspecific complaints that wax and wane and he reports yesterday he had a good day and then today he was feeling weaker and lightheaded but said this has been off and on for years so difficult to assess any symptoms attributable to the hyponatremia, no seizures -Is on Trileptal which is known for causing hyponatremia, also recently had 2 doses of metolazone and recently started Lasix 40 mg daily with an extra 40 mg if needed -May be hypovolemia versus SIADH -Does not appear volume overloaded -Patient receiving normal saline in the ED -We will trend BMPs -Urine osmolality, serum osmolality -Urine lytes and urine urea ?BNP 50, BUN 7 with creatinine of 0.71 which is similar to baseline -UA did have nitrate, leuk esterase with some white blood cells and 2+ bacteria -No other signs or symptoms of infection so we will hold off on treating at this time as unclear clinical relevance -I's and O's -Daily weights -01/27: Suspect hyponatremia was multifactorial and that his chronic Trileptal use/likely medication induced SIADH on top of metolazone doses and then relative intravascular volume down compared to his typical given new Lasix prescription all contributed. Especially as he had been given IV fluids and his Trileptal and Lasix were discontinued and with these measures his sodium lavinia appropriately.? Despite sodium rising appropriately he continues to report intermittent problems still with lightheadedness and weakness that he has attributed to his A-fib in the past and has been chronic even before these past couple of weeks. He also reports he has not been getting his alpha lymphatic acid IV monthly for the past 2 months and attributes a lot of this symptomatology to that. We will continue present measures, suspect patient will be able to discharge home tomorrow and he is going to follow-up with his PCP early next week to have home health set up #Atrial fibrillation -Continue Xarelto and beta-gali -Reportedly takes metoprolol 3 times daily -Follows with cardiology on an outpatient basis, will recommend following with cardiology on an outpatient basis -No RVR significantly aberrant rhythm seen on telemetry #Morbid obesity -BMI 57.2 kg/m? -Complicates treatment, prognosis, outcomes -Recommend weight loss and lifestyle changes #History of gastric bypass -Continue daily B12 supplementation #DARLIN -Encourage patient to have home NIPPV brought in #Hypertension -Continue losartan #DVT ppx: On Xarelto Shobha Gomez MD Time spent in the patient's overall evaluation,decision-making process, review of diagnostic data, adjustment of management, discussion with other providers, nursing nursing and ancillary staff involved in patient's care documentation, 42 minutes Charges/Coding Visit Charges Inpatient E&M: 69806 Subs Hosp L3
[2023-01-27 16:10] LABS: Anion Gap 6 (5-15); BUN 4 mg/dL (7-18); BUN/Creat Ratio 5.9 RATIO (10-20); Calcium,Total 7.7 mg/dL (8.5-10.1); Chloride 89 mmol/L (98-107); Creatinine, Serum 0.68 mg/dL (0.70-1.30); EST Glomerular Filtration Rate 126 mL/min (>60); Est Glom Filt Rate - Afr Amer 153 mL/min (>60); Estimated Creatinine Clearance 132.63 ml/min; Glucose 132 mg/dL (74-106); Potassium 4.3 mmol/L (3.5-5.1); Sodium Level 126 mmol/L (136-145)
[2023-01-27] MEDS: Rivaroxaban 20 MG Tablet PO (16:14)
--- NOTE | 2023-01-27 16:30 | CHAPLAIN ---
Type of Pastoral Visit _x__ Initial Visit ___ Follow-up Visit ___ On-call Visit ___ General Patient Visit ___ Spiritual Assessment ___ Family Conference ___ Bereavement ___ Rapid Response ___ Code Blue ___ Other (describe below) Pastoral Care Referral From _x__ Patient ___ Family ___ Nurse ___ Physician ___ National Sales Representative ___ Goat Farmer ___ Other (describe below) Sacrament/Intervention _x__ Active listening ___ Anointing ___ Scientology ___ Bereavement ___ Communion _x__ Cyndi exploration ___ _x__ Life review _x__ Prayer ___ Reconciliation ___ Sacrament of Sick _x__ Supportive presence ___ Wedding ___ Other (describe below) Pastoral Comments patient remembers this plastic sheets supervisor from previous admissions; pt is very talkative and states that he just enjoys someone to talk with; 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
[2023-01-27] MEDS: DOXEPIN HCL 50 MG CAPSULE PO (20:24)
[2023-01-28 01:22] VITALS: O2SAT 96
[2023-01-28 02:20] VITALS: BP 114/64; PULSE 96; RESP 14; TEMP 36.7; O2SAT 98
[2023-01-28 05:11] VITALS: PULSE 98
[2023-01-28] MEDS: Nystatin Powder 15gm Bottle 1 APPLIC TOPICAL (05:11)
[2023-01-28] MEDS: Metoprolol Tartrate 50 MG Tablet PO (05:11)
[2023-01-28] MEDS: Acetaminophen 325 MG Tablet 650 MG PO (05:13)
[2023-01-28 06:00] VITALS: BMI 56.3
[2023-01-28 06:37] LABS: Absolute Lymphocyte Count 1.35 X10^3/uL (0.83-4.51); Absolute Neutrophil Count 2.9 X10^3/uL (2.0-7.7); Basophil# 0.02 X10^3/uL; Basophil% 0.4 % (0-1); Eosinophil# 0.11 X10^3/uL; Eosinophils% 2.3 % (0-5); Hematocrit 40.8 % (40-54); Hemoglobin 13.7 g/dL (13.0-16.5); Lymphocyte # 1.35 X10^3/ul (0.83-4.51); Lymphocyte % 27.7 % (19-41); Mean Corp Hgb Conc 33.6 g/dL (32-36); Mean Corpuscular Hgb 32.4 pg (27.0-32.0); Mean Corpuscular Volume 96.5 fL (80-94); Mean Platelet Vol. 9.3 fl (6.2-12.0); Monocyte% 10.2 % (0-10); NRBC Flagged by Analyzer 0 % (0-5); Neutrophil # 2.87 X10^3/uL (2.7-7.7); Neutrophil % 58.8 % (47-70); Platelet Count 265 K/mm3 (150-450); RBC Distribution Width CV 15.1 % (11.6-14.6); RBC Distribution Width SD 53.8 fl (35.1-43.9); Red Blood Count 4.23 M/mm3 (4.6-6.2); White Blood Count 4.9 K/mm3 (4.4-11.0)
[2023-01-28 07:30] LABS: ALB/GLOB Ratio 0.6 RATIO (0.9-2.4); AST(SGOT) 20 U/L (15-37); Alanine Aminotransfer ALT/SGPT 18 U/L (16-61); Albumin, Serum 2.1 g/dL (3.2-5.0); Alkaline Phosphatase 154 U/L (45-117); Anion Gap 5 (5-15); BUN 8 mg/dL (7-18); BUN/Creat Ratio 13.2 RATIO (10-20); Calcium,Total 7.5 mg/dL (8.5-10.1); Chloride 97 mmol/L (98-107); EST Glomerular Filtration Rate 144 mL/min (>60); Est Glom Filt Rate - Afr Amer 175 mL/min (>60); Estimated Creatinine Clearance 150.32 ml/min; Globulin 3.7 g/dL (2.2-4.2); Glucose 112 mg/dL (74-106); Potassium 3.8 mmol/L (3.5-5.1); Protein, Total 5.8 g/dL (6.4-8.2); Sodium Level 133 mmol/L (136-145)
[2023-01-28 09:00] VITALS: BP 96/78; PULSE 84; RESP 18; TEMP 36.7; O2SAT 97
[2023-01-28] MEDS: Tamsulosin HCl 0.4 MG Capsule PO (09:05)
[2023-01-28] MEDS: Finasteride 5 MG Tablet PO (09:05)
--- NOTE | 2023-01-28 13:10 | PCM.DC ---
Discharge Instructions Diet Discharge Diet: Carb Control Diet and - (2 L fluid restriction) Activity Discharge Activity: - (Return to normal level of activity as tolerated) Follow Up Care Test Results: Test results from this visit will be discussed in further detail at your follow-up appointment, if applicable. Discharge Plan Admission Admit Date/Time: 01/26/23 12:05 Primary Reason for Your Visit: Generalized weakness Attending Provider: Shobha Gomez Primary Care Provider: Chalo Mclean Chi Instructions Patient Instructions: ED Hyponatremia, ED Fall Prevention Additional Instructions / Restrictions: DISCHARGE INSTRUCTIONS PLEASE READ *Please take this with you to your next doctors appointment* -Would recommend lab work (BMP) to check your sodium in 3-4 days through your primary care physician's office. Please call their office upon discharge to obtain order for lab work. -Would hold Lasix for 2-3 more days and then resume on the 40 mg daily and would attempt to not increase above that unless monitoring BMP and weight closely. Can consider resuming spironolactone in the future pending future BMP and weights -Weigh yourself every day. A sudden weight gain can mean you are retaining fluid. Weigh yourself at the same time of day and in the same kind of clothes. Ideally, weigh yourself first thing in the morning after you empty your bladder, but before you eat breakfast. -Please call your physician if your weight goes up by more than 2 pounds in 1 day or 5 pounds in 1 week. This can be a sign that you are retaining more fluid than you should be. -Would recommend against resuming your Trileptal, can discuss with your neurologist regarding other medication options that are less likely to affect your sodium -Please follow-up with your guest service agent upon discharge for your atrial fibrillation -Your blood pressure intermittently will be low which may be contributing to your weakness and dizziness, your blood pressure medicines have been adjusted for discharge. A new prescription for valsartan 80 mg will be sent into your pharmacy, this may need to be increased in the future however given suspicion that low blood pressure is contributing to your symptoms will decrease this medicine. Please fill the 80 mg and do not take the 320 mg daily in addition to this -Please call your primary care provider's office, Dr. Mclean, on Monday to schedule your hospital follow-up appointment and discuss order for home health care. -For any concerning signs or symptoms please call 911 or proceed to the nearest emergency department Discharge Orders/Prescriptions Prescriptions: New valsartan 80 mg tablet 80 mg PO DAILY Qty: 30 0RF Continued alpha lymphatic acid 1 dose IV MONTHLY Xarelto 20 mg tablet 20 mg PO DAILY Qty: 30 12RF Rx Instructions: must administer with evening meal albuterol sulfate 1 INHALER inhaler 2 puff INHALATION Q6H PRN PRN (Reason: Sob &/Or Wheezing) cyanocobalamin (vitamin B-12) 1,000 MCG/ML solution 1,000 mcg IM Q30D acetaminophen 325 MG tablet 650 mg PO Q6H PRN PRN (Reason: Pain Score 1-3/Temp > 100.7 F) 0RF tamsulosin 0.4 mg Capsule 0.4 mg PO DAILY finasteride 5 mg tablet 5 mg PO DAILY Label Comments: TAKE 1 TABLET BY MOUTH EVERY DAY metoprolol tartrate 50 mg tablet 50 mg PO TID doxepin 50 mg capsule 50 mg PO QHS Label Comments: TAKE 1 CAPSULE BY MOUTH AT BEDTIME Held furosemide [Lasix] 40 mg tablet 40 mg PO .COMPLEX Qty: 180 3RF Hold Instructions: Resume on 01/30/23. Rx Instructions: 40 mg orally daily, may need to take an extra 40 mg d/t edema so please give 180 tablets; Discontinued spironolactone 25 mg tablet 25 mg PO DAILY Qty: 90 3RF oxcarbazepine 150 mg tablet 150 mg PO BID Qty: 60 5RF Rx Instructions: Take oxcarbazepine 150 mg 1 tablet PO twice daily along with oxcarbazepine 300 mg 1 tablet twice daily oxcarbazepine 300 mg tablet 300 mg PO BID Qty: 60 5RF Cbd Oil 1 dose PO DAILY PRN (Reason: Pain) Marijuana 1 dose OTHER QODAY valsartan 320 mg tablet 320 mg PO DAILY Qty: 90 3RF Referrals / Follow Up: Chalo Mclean Chi, MD [Primary Care Provider] - Within 1 Week Disposition Disposition (needs filled in before D/C Order can be placed): Home, Self Care
--- NOTE | 2023-01-28 13:18 | DS.PCM_ITS ---
Providers Date of Admission: 01/26/23 Date of Discharge: 01/28/23 Primary Care Physician: Dr. Chalo Mclean MD Reason For Visit: HYPONATREMIA Diagnosis Discharge Diagnosis (1) Acute hyponatremia: Status: Acute Code(s): E87.1 - Hypo-osmolality and hyponatremia (2) Weakness: Status: Acute Code(s): R53.1 - Weakness (3) Atrial fibrillation: Status: Acute Code(s): I48.91 - Unspecified atrial fibrillation (4) DARLIN (obstructive sleep apnea): Status: Acute Code(s): G47.33 - Obstructive sleep apnea (adult) (pediatric) Plan #Severe hyponatremia?improving #Atrial fibrillation #Morbid obesity #History of gastric bypass #DARLIN #Hypertension Medications at Discharge Home Medications albuterol sulfate 90 mcg/actuation aerosol inhaler 2 puff inhalation Q6H PRN PRN Sob &/Or Wheezing 03/30/18 cyanocobalamin (vitamin B-12) 1,000 mcg/mL injection solution 1,000 mcg IM Q30D DEFICIENCY 05/28/18 acetaminophen 325 mg tablet 650 mg PO Q6H PRN PRN Pain Score 1-3/Temp > 100.7 F 08/01/19 tamsulosin 0.4 mg capsule 0.4 mg PO DAILY bladder 04/09/21 alpha lymphatic acid 1 dose IV MONTHLY 03/30/22 rivaroxaban 20 mg tablet (Xarelto) 20 mg PO DAILY #30 tabs 12/27/22 furosemide 40 mg tablet (Lasix) 40 mg PO .COMPLEX #180 tabs 01/06/23 doxepin 50 mg capsule 50 mg PO QHS Check with primary doctor 01/26/23 finasteride 5 mg tablet 5 mg PO DAILY PROSTATE 01/26/23 metoprolol tartrate 50 mg tablet 50 mg PO TID 01/26/23 valsartan 80 mg tablet 80 mg PO DAILY #30 tabs 01/28/23 Hospital Course Summary of Care Provided Minutes Spent on Discharge: 45 Hospital Course: CARLIN SMITH, is a 62 M with a history of paroxysmal atrial fibrillation, hypertension, cardiomyopathy, morbid obesity with history of gastric bypass who presented to [facility] 01/26/2023 with some intermittent lightheadedness and intermittent weakness. He has a history of atrial fibrillation and had this problem of lightheadedness and weakness for years off and on until he had a cardioversion 2 years ago and that resolved. Has been having this problem again for the past couple of months and was supposed get an EKG on the day of the admission and possible future cardioversion however had difficulty making it to the car due to weakness so he came to the hospital instead. In the ED vitals stable, kidney function without significant change from baseline, sodium 115 with a chloride of 77 BUN of 7 and a creatinine of 0.71 and a BNP of 50. Hospitalist consulted for admission. Patient had endorsed the symptoms were off and on and chronic in nature. At home he was on Trileptal 450 twice daily, recently started on Lasix and also had two doses of metolazone recently, so medication in addition to volume depletion suspected. He was admitted and he had been given IV fluids and his Trileptal and Lasix were discontinued. With these measures his sodium lavinia appropriately. 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 Patient evaluated by therapy and case management discussed with him and ultimately plan was for him to go home. Will be important for patient to follow-up with cardiology given many of his symptoms he reports are attributable to his atrial fibrillation. Did note that he intermittently would have SBPs low 100s or 90s and suspect this is contributing to his lightheadedness and weakness especially given the intermittent nature and lack of any significant pauses or accelerations on telemetry. Blood pressure medication decreased. Discussed with patient on day of discharge and he verbalized understanding of plan. Discharge instructions as followed: DISCHARGE INSTRUCTIONS PLEASE READ *Please take this with you to your next doctors appointment* -Would recommend lab work (BMP) to check your sodium in 3-4 days through your primary care physician's office. Please call their office upon discharge to obtain order for lab work. -Would hold Lasix for 2-3 more days and then resume on the 40 mg daily and would attempt to not increase above that unless monitoring BMP and weight closely. Can consider resuming spironolactone in the future pending future BMP and weights -Weigh yourself every day. A sudden weight gain can mean you are retaining fluid. Weigh yourself at the same time of day and in the same kind of clothes. Ideally, weigh yourself first thing in the morning after you empty your bladder, but before you eat breakfast. -Please call your physician if your weight goes up by more than 2 pounds in 1 day or 5 pounds in 1 week. This can be a sign that you are retaining more fluid than you should be. -Would recommend against resuming your Trileptal, can discuss with your neuro logist regarding other medication options that are less likely to affect your sodium -Please follow-up with your acquisition manager upon discharge for your atrial fibrillation -Your blood pressure intermittently will be low which may be contributing to your weakness and dizziness, your blood pressure medicines have been adjusted for discharge. A new prescription for valsartan 80 mg will be sent into your pharmacy, this may need to be increased in the future however given suspicion that low blood pressure is contributing to your symptoms will decrease this medicine. Please fill the 80 mg and do not take the 320 mg daily in addition to this -Please call your primary care provider's office upon discharge to schedule a hospital follow up within 1 week. -For any concerning signs or symptoms please call 911 or proceed to the nearest emergency department Physical Exam Narrative General: Alert, oriented, no apparent distress HEENT: Atraumatic, normocephalic Eyes: Anicteric, normal conjunctiva, extraocular movements grossly intact Neck: Supple Respiratory: No crackles or wheezes appreciated, normal respiratory effort Cardiovascular: Irregularly irregular GI: Soft, nontender, nondistended Extremities: Trace bilateral lower extremity edema Musculoskeletal: Moving all extremities Neuro: No overt focal neurological deficits Skin: Some chronic lower extremity changes Psych: Cooperative Weight / BMI Weight Weight: 199.1 kg Body Mass Index (BMI) 56.3 ABG / Lab / Microbiology Data Result Diagrams: 01/28/23 05:36 01/28/23 05:36 Laboratory: Laboratory Results - last 24 hr 01/27/23 14:45: Sodium 126 L, Potassium 4.3, Chloride 89 L, Carbon Dioxide 31.0, Anion Gap 6, BUN 4 L, Creatinine 0.68 L, Estim Creat Clear Calc 132.63, Est GFR (MDRD) Af Amer 153, Est GFR (MDRD) Non-Af 126, BUN/Creatinine Ratio 5.9 L, Glucose 132 H, Calcium 7.7 L 01/28/23 05:36: WBC 4.9, RBC 4.23 L, Hgb 13.7, Hct 40.8, MCV 96.5 H, MCH 32.4 H, MCHC 33.6, RDW Std Deviation 53.8 H, RDW Coeff of Tasha 15.1 H, Plt Count 265, MPV 9.3, Immature Gran % (Auto) 0.600, Neut % (Auto) 58.8, Lymph % (Auto) 27.7, Creek % (Auto) 10.2 H, Eos % (Auto) 2.3, Baso % (Auto) 0.4, Absolute Neuts (auto) 2.9, Absolute Lymphs (auto) 1.35, Nucleated RBC % 0 01/28/23 05:36: Sodium 133 L, Potassium 3.8, Chloride 97 L, Carbon Dioxide 31.0, Anion Gap 5, BUN 8, Creatinine 0.60 L, Estim Creat Clear Calc 150.32, Est GFR (MDRD) Af Amer 175, Est GFR (MDRD) Non-Af 144, BUN/Creatinine Ratio 13.2, Glucose 112 H, Calcium 7.5 L, Total Bilirubin 0.40, AST 20, ALT 18, Alkaline Phosphatase 154 H, Total Protein 5.8 L, Albumin 2.1 L, Globulin 3.7, Albumin/Globulin Ratio 0.6 L Microbiology: Microbiology 01/26/23 10:25 Nasal Secretion SARS-CoV-2 & FLU Antigen (Rapid) - Final D/C Instructions Discharge Diet: Carb Control Diet and - (2 L fluid restriction) Meaningful Use Info Meaningful Use Diagnoses (Choose all that apply): None applicable Discharge Plan Admission Admit Date/Time: 01/26/23 12:05 Primary Reason for Your Visit: Generalized weakness Attending Provider: Shobha Gomez Primary Care Provider: Chalo Mclean Chi Instructions Patient Instructions: ED Hyponatremia, ED Fall Prevention Additional Instructions / Restrictions: DISCHARGE INSTRUCTIONS PLEASE READ *Please take this with you to your next doctors appointment* -Would recommend lab work (BMP) to check your sodium in 3-4 days through your primary care physician's office. Please call their office upon discharge to obtain order for lab work. -Would hold Lasix for 2-3 more days and then resume on the 40 mg daily and would attempt to not increase above that unless monitoring BMP and weight closely. Can consider resuming spironolactone in the future pending future BMP and weights -Weigh yourself every day. A sudden weight gain can mean you are retaining fluid. Weigh yourself at the same time of day and in the same kind of clothes. Ideally, weigh yourself first thing in the morning after you empty your bladder, but before you eat breakfast. -Please call your physician if your weight goes up by more than 2 pounds in 1 day or 5 pounds in 1 week. This can be a sign that you are retaining more fluid than you should be. -Would recommend against resuming your Trileptal, can discuss with your neurologist regarding other medication options that are less likely to affect your sodium -Please follow-up with your acquisition manager upon discharge for your atrial fibrillation -Your blood pressure intermittently will be low which may be contributing to your weakness and dizziness, your blood pressure medicines have been adjusted for discharge. A new prescription for valsartan 80 mg will be sent into your pharmacy, this may need to be increased in the future however given suspicion that low blood pressure is contributing to your symptoms will decrease this medicine. Please fill the 80 mg and do not take the 320 mg daily in addition to this -Please call your primary care provider's office, Dr. Mclean, on Monday to schedule your hospital follow-up appointment and discuss order for home health care. -For any concerning signs or symptoms please call 911 or proceed to the nearest emergency department Discharge Orders/Prescriptions Prescriptions: New valsartan 80 mg tablet 80 mg PO DAILY Qty: 30 0RF Continued alpha lymphatic acid 1 dose IV MONTHLY Xarelto 20 mg tablet 20 mg PO DAILY Qty: 30 12RF Rx Instructions: must administer with evening meal albuterol sulfate 1 INHALER inhaler 2 puff INHALATION Q6H PRN PRN (Reason: Sob &/Or Wheezing) cyanocobalamin (vitamin B-12) 1,000 MCG/ML solution 1,000 mcg IM Q30D acetaminophen 325 MG tablet 650 mg PO Q6H PRN PRN (Reason: Pain Score 1-3/Temp > 100.7 F) 0RF tamsulosin 0.4 mg Capsule 0.4 mg PO DAILY finasteride 5 mg tablet 5 mg PO DAILY Label Comments: TAKE 1 TABLET BY MOUTH EVERY DAY metoprolol tartrate 50 mg tablet 50 mg PO TID doxepin 50 mg capsule 50 mg PO QHS Label Comments: TAKE 1 CAPSULE BY MOUTH AT BEDTIME Held furosemide [Lasix] 40 mg tablet 40 mg PO .COMPLEX Qty: 180 3RF Hold Instructions: Resume on 01/30/23. Rx Instructions: 40 mg orally daily, may need to take an extra 40 mg d/t edema so please give 180 tablets; Discontinued spironolactone 25 mg tablet 25 mg PO DAILY Qty: 90 3RF oxcarbazepine 150 mg tablet 150 mg PO BID Qty: 60 5RF Rx Instructions: Take oxcarbazepine 150 mg 1 tablet PO twice daily along with oxcarbazepine 300 mg 1 tablet twice daily oxcarbazepine 300 mg tablet 300 mg PO BID Qty: 60 5RF Cbd Oil 1 dose PO DAILY PRN (Reason: Pain) Marijuana 1 dose OTHER QODAY valsartan 320 mg tablet 320 mg PO DAILY Qty: 90 3RF Referrals / Follow Up: Chalo Mclean Chi, MD [Primary Care Provider] - Within 1 Week Disposition Disposition (needs filled in before D/C Order can be placed): Home, Self Care Charges/Coding Visit Charges Inpatient E&M: 53256 Disch Hosp >30min
[2023-01-28 13:22] VITALS: BP 96/78; PULSE 84; RESP 18; TEMP 36.7; O2SAT 97
== END 2023-01-28 15:05 | disposition home or self-care (01) | DRG 426 ==
LOC: ED 11:24 → PCU 12:37
PROVIDERS: Admitting Provider Internal Medicine; Emergency Provider Emergency Medicine; PCP Family Medicine Geriatric Medicine; Visit Provider Internal Medicine
DX: E22.2 Syndrome of inappropriate secretion of antidiuretic hormone (principal); Z68.43 Body mass index [BMI] 50.0-59.9, adult; I48.0 Paroxysmal atrial fibrillation; E66.01 Morbid (severe) obesity due to excess calories; G47.33 Obstructive sleep apnea (adult) (pediatric); I10 Essential (primary) hypertension; Z98.84 Bariatric surgery status; Z79.01 Long term (current) use of anticoagulants; Z79.899 Other long term (current) drug therapy; Z87.891 Personal history of nicotine dependence
CPT/HCPCS: 36415; 71045; 80048; 80053; 81001; 82436; 82570; 82607; 83735; 83880; 83930; 83935; 84100; 84133; 84300; 84443; 84484; 84540; 85025; 87428; 93005; 97110; 97162; 97166; 97535; 97802; 99285; J7030; A4216; J3420

== ENCOUNTER → 2023-02-01 | Outpatient (CLI) | payer MEDICAID, SELFPAY ==
[2023-02-01 14:00] LABS: Anion Gap 7 (5-15); BUN 5 mg/dL (7-18); BUN/Creat Ratio 7.1 RATIO (10-20); Chloride 103 mmol/L (98-107); Creatinine, Serum 0.71 mg/dL (0.70-1.30); EST Glomerular Filtration Rate 120 mL/min (>60); Est Glom Filt Rate - Afr Amer 146 mL/min (>60); Glucose 113 mg/dL (74-106); Potassium 4.1 mmol/L (3.5-5.1); Sodium Level 136 mmol/L (136-145)
== END | disposition home or self-care (01) ==
LOC: LAB 12:37
PROVIDERS: Physician Assistant Medical; PCP Family Medicine Geriatric Medicine; Referring Provider Family Medicine Geriatric Medicine; Visit Provider Family Medicine Geriatric Medicine
DX: I10 Essential (primary) hypertension (principal)
CPT/HCPCS: 36415; 80048

== ENCOUNTER → 2023-03-03 | Outpatient (CLI) | payer MEDICAID, SELFPAY ==
[2023-03-03 12:50] LABS: Absolute Lymphocyte Count 1.73 X10^3/uL (0.83-4.51); Absolute Neutrophil Count 2.4 X10^3/uL (2.0-7.7); Basophil# 0.02 X10^3/uL; Basophil% 0.4 % (0-1); Eosinophil# 0.14 X10^3/uL; Hematocrit 46.6 % (40-54); Hemoglobin 15.2 g/dL (13.0-16.5); Lymphocyte # 1.73 X10^3/ul (0.83-4.51); Lymphocyte % 37.4 % (19-41); Mean Corp Hgb Conc 32.6 g/dL (32-36); Mean Corpuscular Hgb 32.6 pg (27.0-32.0); Mean Platelet Vol. 10.5 fl (6.2-12.0); Monocyte# 0.37 X10^3/uL; NRBC Flagged by Analyzer 0 % (0-5); Neutrophil # 2.35 X10^3/uL (2.7-7.7); Neutrophil % 50.8 % (47-70); Platelet Count 213 K/mm3 (150-450); RBC Distribution Width CV 15.1 % (11.6-14.6); RBC Distribution Width SD 56.5 fl (35.1-43.9); Red Blood Count 4.66 M/mm3 (4.6-6.2); White Blood Count 4.6 K/mm3 (4.4-11.0)
[2023-03-03 13:10] LABS: ALB/GLOB Ratio 0.5 RATIO (0.9-2.4); AST(SGOT) 31 U/L (15-37); Alanine Aminotransfer ALT/SGPT 22 U/L (16-61); Albumin, Serum 2.4 g/dL (3.2-5.0); Alkaline Phosphatase 168 U/L (45-117); Anion Gap 9 (5-15); BUN 7 mg/dL (7-18); BUN/Creat Ratio 10.1 RATIO (10-20); Calcium,Total 7.6 mg/dL (8.5-10.1); Chloride 108 mmol/L (98-107); Cholesterol 125 mg/dL (200); EST Glomerular Filtration Rate 122 mL/min (>60); Est Glom Filt Rate - Afr Amer 148 mL/min (>60); Globulin 4.7 g/dL (2.2-4.2); Glucose 108 mg/dL (74-106); High Density Lipoprotein 38 mg/dL; Potassium 3.8 mmol/L (3.5-5.1); Protein, Total 7.1 g/dL (6.4-8.2); Sodium Level 140 mmol/L (136-145); Thyroid Stim Hormone (TSH) 2.25 uIU/mL (0.358-3.74); Triglycerides 183 mg/dL; Uric Acid 8.6 mg/dL (3.5-7.2); Very Low Density Lipoprotein 37 mg/dL (5-40)
== END | disposition home or self-care (01) ==
LOC: POLAB3 08:59
PROVIDERS: PCP Family Medicine Geriatric Medicine; Visit Provider Family Medicine Geriatric Medicine
DX: I10 Essential (primary) hypertension (principal); E78.5 Hyperlipidemia, unspecified; M10.9 Gout, unspecified
CPT/HCPCS: 36415; 80053; 80061; 84443; 84550; 85025

== ENCOUNTER → 2023-03-08 | Outpatient (CLI) | payer MEDICAID, SELFPAY ==
[2023-03-08 11:28] LABS: Anion Gap 6 (5-15); BUN 8 mg/dL (7-18); BUN/Creat Ratio 10.2 RATIO (10-20); Calcium,Total 7.7 mg/dL (8.5-10.1); Chloride 102 mmol/L (98-107); Creatinine, Serum 0.78 mg/dL (0.70-1.30); EST Glomerular Filtration Rate 107 mL/min (>60); Est Glom Filt Rate - Afr Amer 129 mL/min (>60); Glucose 119 mg/dL (74-106); Potassium 3.7 mmol/L (3.5-5.1); Sodium Level 138 mmol/L (136-145)
== END | disposition home or self-care (01) ==
LOC: LAB 10:13
PROVIDERS: PCP Family Medicine Geriatric Medicine; Referring Provider Nurse Practitioner Gerontology; Visit Provider Nurse Practitioner Gerontology
DX: R06.00 Dyspnea, unspecified (principal)
CPT/HCPCS: 36415; 80048; 83880

== ENCOUNTER → 2023-03-14 | Outpatient (CLI) | payer MEDICAID, SELFPAY | END | disposition home or self-care (01) | PROVIDERS: PCP Family Medicine Geriatric Medicine; Referring Provider Nurse Practitioner Gerontology; Visit Provider Nurse Practitioner Gerontology | DX: I48.91 Unspecified atrial fibrillation (principal) | CPT/HCPCS: 93225; 93226 ==

== ENCOUNTER 2024-01-16 11:19 | Observation (INO) | payer MEDICAID, SELFPAY ==
[2024-01-16] VITALS (10 sets, daily range): BP systolic 125–180; BP diastolic 88–120; PULSE 60–95; RESP 16–20; TEMP 35.8–37.1; O2SAT 93–97; BMI 56.2; BMI 55.1
--- NOTE | 2024-01-16 11:52 | EKG12_ITS ---
Test Reason : WEAKNESS Blood Pressure : / mmHG Vent. Rate : 088 BPM Atrial Rate : 088 BPM P-R Int : 162 ms QRS Dur : 094 ms QT Int : 400 ms P-R-T Axes : 085 -60 071 degrees QTc Int : 484 ms Sinus rhythm with Premature supraventricular complexes Left axis deviation Low voltage QRS Inferior infarct , age undetermined Possible Anterolateral infarct , age undetermined Abnormal ECG Confirmed by DIANDRA BLOOM, BEE ([id number]), field map editor MEHUL JIMENEZ ([id number]) on 01/18/2024 6:28:22 AM Referred By: Confirmed By:KHAI JIM MD
--- NOTE | 2024-01-16 11:52 | CT_ITS ---
EXAM: CT HEAD WITHOUT INTRAVENOUS CONTRAST CLINICAL INDICATION: weakness TECHNIQUE: Multiple axial images were obtained of the head without intravenous contrast. This CT exam was performed using one or more of the following dose reduction techniques: automated exposure control, adjustment of the mA and/or kV according to patient size, and/or use of iterative reconstruction technique. RADIATION DOSE: CTDIvol = 44.99 mGy, DLP = 914.22 mGy-cm COMPARISON: No relevant prior studies available. FINDINGS: LIMITATIONS: Limited study due to morbid obesity and CT gantry causing streak artifacts across the posterior fossa. BRAIN AND EXTRA-AXIAL SPACES: See above. BONES/JOINTS: Unremarkable. No discrete lytic or blastic abnormalities. SINUSES: Unremarkable as visualized. Clear. MASTOID AIR CELLS: Unremarkable. Clear. ORBITS: Visualized globes, extraocular muscles, optic nerves and retrobulbar fat appear unremarkable. CT/Brain/Head without Contrast IMPRESSION: 1. No CT evidence of intracranial bleeding, acute ischemic infarct, intracranial mass or acute intracranial abnormality. 2. Limited study due to streak artifacts coming from patients broad shoulder/morbid obesity and CT table. Electronically Signed: Sukh Jones MD at 12:43 EDT ,
--- NOTE | 2024-01-16 11:52 | CT_ITS ---
EXAM: CT ABDOMEN AND PELVIS WITHOUT INTRAVENOUS CONTRAST CLINICAL INDICATION: Abdominal pain. TECHNIQUE: Helically acquired images were obtained of the abdomen and pelvis without intravenous contrast. This CT exam was performed using one or more of the following dose reduction techniques: automated exposure control, adjustment of the mA and/or kV according to patient size, and/or use of iterative reconstruction technique. RADIATION DOSE: CTDIvol = 24.18 mGy, DLP = 1431.72 mGy-cm COMPARISON: CTA chest 11/30/2015. No prior CT abdomen and pelvis for comparison. FINDINGS: LOWER THORAX: Surgical clips in the hiatal hernia and stomach. Lung bases are clear. No cardiomegaly. No significant pericardial effusion. ABDOMEN: LIVER: Hepatomegaly measuring 25.4 cm long. Moderate diffuse fatty infiltration of liver. GALLBLADDER AND BILE DUCTS: Unremarkable. No calcified gallstones. No gallbladder distention or wall edema. No intra- or extrahepatic biliary ductal dilation. PANCREAS: Unremarkable. No focal cystic mass. SPLEEN: Unremarkable. Normal size without focal cystic or solid mass. ADRENALS: Unremarkable. No nodules. KIDNEYS AND URETERS: Unremarkable. Normal renal size and position. No hydronephrosis. STOMACH AND BOWEL: Moderate fecal contents in the rectosigmoid colon. No stomach or bowel distention. No focal inflammatory change. PELVIS: APPENDIX: Postsurgical absence of the appendix. BLADDER: Empty urinary bladder with indwelling Aldana catheter in place. REPRODUCTIVE: Unremarkable as visualized. No mass. ABDOMEN and PELVIS: INTRAPERITONEAL SPACE: Low resolution images in the abdomen and pelvis due to morbid obesity. No ascites or other fluid collection. No free air. BONES/JOINTS: Diffuse degenerative disc space height narrowing throughout the lumbar spine. No suspicious lytic or blastic abnormality. SOFT TISSUES: See above. VASCULATURE: IVC filter in place. Abdominal aorta is non-dilated. LYMPH NODES: Unremarkable. No enlarged lymph nodes. CT/Abdomen/Pelvis without Cont IMPRESSION: 1. Moderate hepatomegaly and moderate hepatic steatosis. 2. IVC filter in place. If this is a retrievable IVC Lesly filter, please refer to interventional radiologist or vascular surgeon who performed the IVC filter placement. 3. No suspicious acute abnormality in the abdomen and pelvis. 4. Mild constipation in the rectosigmoid colon. Electronically Signed: Sukh Jones MD at 12:49 EDT ,
[2024-01-16 12:01] LABS: Absolute Lymphocyte Count 1.12 X10^3/uL (0.83-4.51); Absolute Neutrophil Count 4.6 X10^3/uL (2.0-7.7); Basophil# 0.06 X10^3/uL; Basophil% 0.9 % (0-1); Eosinophil# 0.14 X10^3/uL; Eosinophils% 2.1 % (0-5); Hematocrit 47.2 % (40-54); Hemoglobin 15.9 g/dL (13.0-16.5); Lymphocyte # 1.12 X10^3/ul (0.83-4.51); Lymphocyte % 16.8 % (19-41); Mean Corp Hgb Conc 33.7 g/dL (32-36); Mean Corpuscular Hgb 32.4 pg (27.0-32.0); Mean Corpuscular Volume 96.1 fL (80-94); Mean Platelet Vol. 10.4 fl (6.2-12.0); Monocyte# 0.74 X10^3/uL; Monocyte% 11.1 % (0-10); NRBC Flagged by Analyzer 0 % (0-5); Neutrophil % 68.8 % (47-70); Platelet Count 234 K/mm3 (150-450); RBC Distribution Width CV 12.6 % (11.6-14.6); RBC Distribution Width SD 45.2 fl (35.1-43.9); Red Blood Count 4.91 M/mm3 (4.6-6.2); White Blood Count 6.7 K/mm3 (4.4-11.0)
[2024-01-16 12:04] LABS: Mucous, Urine 0 SEEN /hpf (<or=2+); Squamous Epithelial Cells - UA 0 SEEN /hpf (0-5)
[2024-01-16] MEDS: 0.9% Normal Saline (1000mL) 1,000 ML 150 ML IV (12:05)
[2024-01-16 12:14] LABS: Anion Gap 5 (5-15); BUN 5 mg/dL (7-18); Chloride 97 mmol/L (98-107); Creatinine, Serum 0.71 mg/dL (0.70-1.30); EST Glomerular Filtration Rate 119 mL/min (>60); Est Glom Filt Rate - Afr Amer 144 mL/min (>60); Estimated Creatinine Clearance 196.59 ml/min; Glucose 144 mg/dL (74-106); Potassium 3.7 mmol/L (3.5-5.1); Sodium Level 135 mmol/L (136-145)
[2024-01-16 12:19] LABS: Color, Urine Yellow (Yellow); Glucose, Dipstick Normal (Normal); Ketone-Dipstick Negative (Negative); Leukocyte Esterase-Dipstick 500 /ul (Negative); Nitrite-Dipstick Negative (Negative); Occult Blood-Urine 10 /ul (Negative); Protein-Dipstick Negative (Negative); Urine Bilirubin Dipstick Negative (Negative); Urine Clarity Clear (Clear); Urine Urobilinogen 1 mg/dl (Normal)
--- NOTE | 2024-01-16 12:20 | RAD_ITS ---
EXAM: XR CHEST, 1 VIEW CLINICAL INDICATION: cough TECHNIQUE: Frontal view of the chest. COMPARISON: No relevant prior studies available. FINDINGS: LUNGS AND PLEURAL SPACES: Unremarkable. No consolidation or edema. No pneumothorax. No effusion. HEART: Unremarkable. Cardiac silhouette not enlarged. MEDIASTINUM: Central airways and mediastinal contour are unremarkable. BONES/JOINTS: Unremarkable. No acute fracture. SOFT TISSUES: Unremarkable. RAD/Chest 1 View (Portable) IMPRESSION: No radiographic evidence of acute cardiopulmonary disease. Electronically Signed: Sukh Jones MD at 13:03 EDT ,
[2024-01-16 12:37] LABS: Red Blood Cells-Urine 0-5 SEEN /hpf (0-5); White Blood Cells 25-50 SEEN /hpf (0-5)
[2024-01-16 12:38] LABS: Bacteria 1+ /hpf (None Seen)
--- NOTE | 2024-01-16 14:58 | EX.ED.DYSGE1 ---
HPI History of Present Illness Chief Complaint: Weakness Informant: patient Onset/Context/Timing Onset: Days Context: Gradual Onset Narrative Narrative: Patient presents secondary to increased weakness. He states at baseline he can stand and pivot from his wheelchair to his bed and to the bedside commode, but he has had increasing weakness over the past week and for the past couple days has not been able to stand at all. He has been self cathing to urinate. He reports some subjective fevers and chills but nothing that was measured at home. He had recent URI symptoms and still has some slight mucus and cough. He does complain of some abdominal pain as well. [facility] Medical History Restless legs syndrome Acute hyponatremia Internal impingement of right shoulder Right shoulder pain MRSA infection PTSD (post-traumatic stress disorder) Thyroid disease DVT (deep venous thrombosis) Back pain Syncope Blackout History of ulceration Sleep apnea CPAP (continuous positive airway pressure) dependence Bladder disease Dysphagia Urine retention Dysuria Wears glasses Wears dentures Anxiety Alcohol use Marijuana use Uses wheelchair Walker as ambulation aid Ambulates with cane Gout Arthritis Prostate disease Anemia Easy bruising Excessive bleeding History of hiatal hernia Urinary incontinence Gastric reflux Shortness of breath on exertion Former smoker Leg cramps History of edema History of rheumatic fever History of atrial fibrillation History of stress test History of Holter monitoring History of echocardiogram Cardiology follow-up encounter Ventricular ectopy Cardiomyopathy Paroxysmal atrial fibrillation Paroxysmal ventricular tachycardia HTN (hypertension) Cardiomyopathy Atrial fibrillation with rapid ventricular response Atrial fibrillation Debility CHI (closed head injury) Chronic atrial fibrillation Traumatic injury to skin or subcutaneous tissue History of DVT (deep vein thrombosis) Essential hypertension Atrial flutter History of sepsis Abdominal wall pain Left fibular fracture Rheumatic fever Morbid obesity Chronic pain BPH (benign prostatic hyperplasia) ADD (attention deficit disorder) Neuropathy Depression Calcium deficiency Vitamin B12 deficiency Fibromyalgia Home Medications ?Medication ?Instructions ?Recorded ?Last Taken ?Type albuterol sulfate 90 mcg/actuation 2 puff inhalation Q6H PRN PRN Sob 03/30/18 2 Weeks Ago History aerosol inhaler &/Or Wheezing ~01/12/23 cyanocobalamin (vitamin B-12) 1,000 mcg IM Q30D DEFICIENCY 05/28/18 1 Month Ago History 1,000 mcg/mL injection solution ~12/26/22 acetaminophen 325 mg tablet 650 mg (2 x 325 mg) PO Q6H PRN PRN 08/01/19 Unknown Rx Pain Score 1-3/Temp > 100.7 F tamsulosin 0.4 mg capsule 0.4 mg PO DAILY bladder 04/09/21 01/25/23 History alpha lymphatic acid 1 dose IV MONTHLY 03/30/22 2 Months Ago History ~11/26/22 rivaroxaban 20 mg tablet (Xarelto) 20 mg PO DAILY #30 tabs 12/27/22 01/25/23 Rx doxepin 50 mg capsule 50 mg PO QHS mental health 01/26/23 Unknown History finasteride 5 mg tablet 5 mg PO DAILY PROSTATE 01/26/23 01/25/23 History furosemide 40 mg tablet (Lasix) 40 mg PO .COMPLEX diuretic 01/28/23 01/25/23 History valsartan 80 mg tablet 80 mg PO DAILY #30 tabs 01/28/23 Unknown Rx ropinirole 0.5 mg tablet 0.5 mg PO QHS #7 tabs 02/13/23 Unknown Rx metoprolol succinate 100 mg 100 mg PO BID #60 tabs 03/17/23 Unknown Rx tablet,extended release 24 hr Allergy/AdvReac Type Severity Reaction Status Date / Time duloxetine (From Cymbalta) Allergy Severe Other Verified 01/16/24 11:24 Family History Mother Diabetes Thyroid disorder Father Diabetes Heart disease CABG x5 in his 50s COPD (chronic obstructive pulmonary disease) Hypertension Other Arthritis Lupus Surgical History History of cardiac catheterization History of hand surgery History of esophagogastroduodenoscopy (EGD) History of cardioversion (~08/10/21) History of left heart catheterization (04/30/21) History of hernia repair Status post removal of thyroid nodule H/O gastric bypass Social History Smoking Status: Former smoker how long ago did patient quit smokin years ago second hand exposure: No alcohol intake: current alcohol intake frequency: a few times a week details: 4-6 cans (12 oz) of beer a couple times per week substance use type: marijuana caffeine: No what type of physical activity do you participate in: none frequency: decline to answer khloe/sikhism: Tenriism seatbelt use: never ROS ROS ED Constitutional Constitutional ED: Reports fever(s), subjective and sweats; Denies chills Eyes Eyes: Denies change in vision or discharge from eye(s) ENT ENT ED: Denies discharge from eye(s), rhinorrhea or sore throat Cardiovascular Cardiovascular: Denies chest pain or palpitations Respiratory/Chest Respiratory/Chest: Reports cough; Denies dyspnea Gastrointestinal Gastrointestinal: Reports abdominal pain; Denies diarrhea, nausea or vomiting Genitourinary Genitourinary ED: Reports other Details: Self cath for urine Musculoskeletal Musculoskeletal: Denies back pain Integumentary Denies Abrasions or rash Neurologic Neurologic: Reports weakness; Denies headache(s) Psychiatric Psychiatric: Denies anxiety or depression Allergic/Immunologic Allergic/Immunologic ED: Denies lip swelling or urticaria EXAM Physical Exam Const Vital Signs: 01/16/24 11:20 01/16/24 11:24 01/16/24 11:27 Temperature 97.6 F L Temperature Source Temporal Pulse Rate 90 Respiratory Rate 16 Respiratory Effort Normal Non-Labored Respiratory Pattern Normal Blood Pressure 140/120 H 125/93 H Blood Pressure Mean 126 103 Pulse Ox 94 Oxygen Delivery Method 01/16/24 13:20 Temperature Temperature Source Pulse Rate 60 Respiratory Rate 18 Respiratory Effort Respiratory Pattern Blood Pressure 170/95 H Blood Pressure Mean 120 Pulse Ox 97 Oxygen Delivery Method Room Air Positive obese Nutritional Appearance: obese HEENT Reports moist mucous membranes Eyes EOMs intact bilaterally Chest Wall inspection of chest normal and palpation of chest normal Resp normal respiratory effort and clear to auscultation bilaterally Cardio regular rate and regular rhythm GI GI Narrative: Abdomen soft, obese, no focal tenderness. Active bowel sounds noted throughout. Extremity Extremity Narrative: Chronic lower extremity lymphedema. Able to wiggle toes without difficulty. Good sensation on testing. Neuro oriented x3 Neuro Narrative: Generalized weakness with no focal neurologic deficit. Psych mental status grossly normal MDM MDM MDM Narrative Medical decision making narrative: Patient placed on telemetry monitor. IV line initiated. EKG obtained to evaluate for cardiac arrhythmia/ischemia. Chest x-ray obtained to evaluate for acute lung pathology, cardiac size, or mediastinal abnormality. Labwork obtained to evaluate for leukocytosis, anemia, and electrolyte derangement. Nursing staff had initiated Aldana catheter and urinalysis was sent. They report no difficulty in placing the Aldana catheter. Patient sent for CT scan of the head given his increasing weakness as well as CT of the abdomen pelvis given his abdominal pain. History & Record Review Discussion w/independent historian: Patient Additional record(s) reviewed:: Prior labs Lab Data Attestation: I reviewed the patient's lab results. Labs: Laboratory Results - last 24 hr 01/16/24 01/16/24 11:37 11:55 WBC 6.7 RBC 4.91 Hgb 15.9 Hct 47.2 MCV 96.1 H MCH 32.4 H MCHC 33.7 RDW Std Deviation 45.2 H RDW Coeff of Tasha 12.6 Plt Count 234 MPV 10.4 Immature Gran % (Auto) 0.300 Neut % (Auto) 68.8 Lymph % (Auto) 16.8 L [place] % (Auto) 11.1 H Eos % (Auto) 2.1 Baso % (Auto) 0.9 Absolute Neuts (auto) 4.6 Absolute Lymphs (auto) 1.12 Nucleated RBC % 0 Sodium 135 L Potassium 3.7 Chloride 97 L Carbon Dioxide 33.0 H Anion Gap 5 BUN 5 L Creatinine 0.71 Estim Creat Clear Calc 196.59 Est GFR (MDRD) Af Amer 144 Est GFR (MDRD) Non-Af 119 BUN/Creatinine Ratio 7.0 L Glucose 144 H Calcium 8.0 L Urine Color Yellow Urine Clarity Clear Urine pH 6.0 Ur Specific [place] 1.010 Urine Protein Negative Urine Glucose (UA) Normal Urine Ketones Negative Urine Occult Blood 10 H Urine Nitrite Negative Urine Bilirubin Negative Urine Urobilinogen 1 H Ur Leukocyte Esterase 500 H Urine RBC 0-5 SEEN Urine WBC 25-50 SEEN Ur Squamous Epith Cells 0 SEEN Urine Bacteria 1+ Urine Mucus 0 SEEN Radiography Chest X-Ray - ED: 1 View, Read by ED Physician, Chronic Changes and No Infiltrates Diagnostic Testing: Clinical Impression(s) from Imaging Studies Abdomen/Pelvis CT 01/16/24 11:52 IMPRESSION: 1. Moderate hepatomegaly and moderate hepatic steatosis. 2. IVC filter in place. If this is a retrievable IVC [place] filter, please refer to interventional radiologist or vascular surgeon who performed the IVC filter placement. 3. No suspicious acute abnormality in the abdomen and pelvis. 4. Mild constipation in the rectosigmoid colon. Electronically Signed: Sukh Jones MD at 12:49 EDT , Brain CT 01/16/24 11:52 IMPRESSION: 1. No CT evidence of intracranial bleeding, acute ischemic infarct, intracranial mass or acute intracranial abnormality. 2. Limited study due to streak artifacts coming from patients broad shoulder/morbid obesity and CT table. Electronically Signed: Sukh Jones MD at 12:43 EDT , Chest X-Ray 01/16/24 12:20 IMPRESSION: No radiographic evidence of acute cardiopulmonary disease. Electronically Signed: Sukh Jones MD at 13:03 EDT , EKG Initial EKG: Attestation: I personally reviewed and interpreted this EKG as follows: Interpretation: Sinus Rhythm (Sinus at 88 with no acute ischemia.) Treatment and Re-Evaluation :: CBC was normal white count 6.7 with normal differential. Hemoglobin is 15.9. Chemistry studies reveal a sodium of 135 and a chloride of 97. Renal function is normal with a creatinine of 0.71. Glucose is 144. Urinalysis reveals 1+ bacteria with 25-50 white cells. This is sent for culture and patient is given a dose of IV Rocephin. Portable chest x-ray per my interpretation reveals chronic changes with no obvious infiltrate. Radiology interpretation reviewed and agrees. EKG is sinus rhythm with no evidence of ischemia. CT scan of the head reveals no acute intracranial bleed or infarct. CT scan of the abdomen pelvis reveals moderate hepatomegaly and moderate hepatic steatosis. An IVC filter is in place. There is no suspicious acute abnormality appreciated. At this time patient is not able to transfer himself and does feel that he will need to go to rehab. I will speak with the hospitalist regarding admission. Discharge Plan Triage Chief Complaint: Weakness ED Provider: Adelita Deng Dx/Rx/DC Orders Clinical Impression: UTI (urinary tract infection), Weakness, Unable to ambulate Prescriptions: No Action alpha lymphatic acid 1 dose IV MONTHLY ropinirole 0.5 mg tablet 0.5 mg PO QHS Qty: 7 0RF Xarelto 20 mg tablet 20 mg PO DAILY Qty: 30 12RF Rx Instructions: must administer with evening meal albuterol sulfate 1 INHALER inhaler 2 puff INHALATION Q6H PRN PRN (Reason: Sob &/Or Wheezing) cyanocobalamin (vitamin B-12) 1,000 MCG/ML solution 1,000 mcg IM Q30D acetaminophen 325 MG tablet 650 mg PO Q6H PRN PRN (Reason: Pain Score 1-3/Temp > 100.7 F) 0RF tamsulosin 0.4 mg Capsule 0.4 mg PO DAILY finasteride 5 mg tablet 5 mg PO DAILY Patient Comments: TAKE 1 TABLET BY MOUTH EVERY DAY doxepin 50 mg capsule 50 mg PO QHS Patient Comments: TAKE 1 CAPSULE BY MOUTH AT BEDTIME valsartan 80 mg tablet 80 mg PO DAILY Qty: 30 0RF furosemide [Lasix] 40 mg tablet 40 mg PO .COMPLEX Rx Instructions: 40 mg orally daily, may need to take an extra 40 mg d/t edema so please give 180 tablets; metoprolol succinate 100 mg tablet extended release 24 hr 100 mg PO BID Qty: 60 11RF Primary Care Provider: Chalo Mclean Chi Referrals: Chalo Mclean Chi, MD [Primary Care Provider] - Print Language: Botswanan Disposition Disposition: Acute Care Hospital [facility]
[2024-01-16] MEDS: Ceftriaxone 1 GM/50 ML BAG IV (15:12)
--- NOTE | 2024-01-16 15:24 | NURSING ---
MED SURG OBS AGYEPONG UTI, WEAKNESS
--- NOTE | 2024-01-16 15:27 | PCM.HP.STD ---
[facility] - General General Date of Admission: 01/16/24 Date of Service: 01/16/24 Chief Complaint: Weakness HPI Narrative CARLIN SMITH, is a 63 M with a significant history of morbid obesity; atrial fibrillation; essential hypertension; and advanced who presented emergency department with 2-week history of progressively worsening weakness. At baseline patient can stand; and transfer from wheelchair to lift chair to bed. However for the past 2 weeks before presentation patient has been not been able to stand and transfer himself. Also patient reports burning with urination 4 days before presentation. He has not cath himself for a long time but he had to cath himself recently because of urinary retention. [facility] Medical History (Updated 01/17/24 @ 15:[address] Pérez Hoang, ) Alcohol abuse Rheumatoid arthritis GERD (gastroesophageal reflux disease) Asthma Restless legs syndrome Acute hyponatremia Internal impingement of right shoulder Right shoulder pain MRSA infection PTSD (post-traumatic stress disorder) Thyroid disease DVT (deep venous thrombosis) Back pain Syncope Blackout History of ulceration Sleep apnea CPAP (continuous positive airway pressure) dependence Bladder disease Dysphagia Urine retention Dysuria Wears glasses Wears dentures Anxiety Alcohol use Marijuana use Uses wheelchair Walker as ambulation aid Ambulates with cane Gout Arthritis Prostate disease Anemia Easy bruising Excessive bleeding History of hiatal hernia Urinary incontinence Gastric reflux Shortness of breath on exertion Former smoker Leg cramps History of edema History of rheumatic fever History of atrial fibrillation History of stress test History of Holter monitoring History of echocardiogram Cardiology follow-up encounter Ventricular ectopy Cardiomyopathy Paroxysmal atrial fibrillation Paroxysmal ventricular tachycardia HTN (hypertension) Cardiomyopathy Atrial fibrillation with rapid ventricular response Atrial fibrillation Debility CHI (closed head injury) Chronic atrial fibrillation Traumatic injury to skin or subcutaneous tissue History of DVT (deep vein thrombosis) Essential hypertension Atrial flutter History of sepsis Abdominal wall pain Left fibular fracture Rheumatic fever Morbid obesity Chronic pain BPH (benign prostatic hyperplasia) ADD (attention deficit disorder) Neuropathy Depression Calcium deficiency Vitamin B12 deficiency Fibromyalgia Home Medications ?Medication ?Instructions ?Recorded ?Last Taken ?Type albuterol sulfate 90 mcg/actuation 2 puff inhalation Q6H PRN PRN Sob 03/30/18 2 Weeks Ago History aerosol inhaler &/Or Wheezing ~01/12/23 cyanocobalamin (vitamin B-12) 1,000 mcg IM Q30D DEFICIENCY 05/28/18 1 Month Ago History 1,000 mcg/mL injection solution ~12/26/22 acetaminophen 325 mg tablet 650 mg (2 x 325 mg) PO Q6H PRN PRN 08/01/19 Unknown Rx Pain Score 1-3/Temp > 100.7 F tamsulosin 0.4 mg capsule 0.4 mg PO DAILY bladder 04/09/21 01/25/23 History alpha lymphatic acid 1 dose IV MONTHLY 03/30/22 2 Months Ago History ~11/26/22 rivaroxaban 20 mg tablet (Xarelto) 20 mg PO DAILY #30 tabs 12/27/22 01/25/23 Rx doxepin 50 mg capsule 50 mg PO QHS mental health 01/26/23 Unknown History finasteride 5 mg tablet 5 mg PO DAILY PROSTATE 01/26/23 01/25/23 History furosemide 40 mg tablet (Lasix) 40 mg PO .COMPLEX diuretic 01/28/23 01/25/23 History valsartan 80 mg tablet 80 mg PO DAILY #30 tabs 01/28/23 Unknown Rx metoprolol succinate 100 mg 100 mg PO BID #60 tabs 03/17/23 Unknown Rx tablet,extended release 24 hr Allergy/AdvReac Type Severity Reaction Status Date / Time duloxetine (From Cymbalta) Allergy Severe Other Verified 01/16/24 11:24 Family History Mother Diabetes Thyroid disorder Father Diabetes Heart disease CABG x5 in his 50s COPD (chronic obstructive pulmonary disease) Hypertension Other Arthritis Lupus Surgical History History of cardiac catheterization History of hand surgery History of esophagogastroduodenoscopy (EGD) History of cardioversion (~08/10/21) History of left heart catheterization (04/30/21) History of hernia repair Status post removal of thyroid nodule H/O gastric bypass Social History Smoking Status: Former smoker how long ago did patient quit smokin years ago second hand exposure: No alcohol intake: current alcohol intake frequency: a few times a week details: 4-6 cans (12 oz) of beer a couple times per week substance use type: marijuana caffeine: No what type of physical activity do you participate in: none frequency: decline to answer khloe/yazdanism: Mu-Ism seatbelt use: never ROS ROS Narrative Pertinent positives and pertinent negatives as noted in HPI. All other systems were reviewed and are negative Vital Signs Vital Signs Vital Signs: 01/16/24 11:20 01/16/24 11:24 01/16/24 11:27 Temperature 97.6 F L Temperature Source Temporal Pulse Rate 90 Respiratory Rate 16 Respiratory Effort Normal Non-Labored Respiratory Pattern Normal Blood Pressure 140/120 H 125/93 H Blood Pressure Mean 126 103 Pulse Ox 94 Oxygen Delivery Method 01/16/24 13:20 01/16/24 14:58 Temperature Temperature Source Pulse Rate 60 62 Respiratory Rate 18 18 Respiratory Effort Respiratory Pattern Blood Pressure 170/95 H 167/103 H Blood Pressure Mean 120 124 Pulse Ox 97 96 Oxygen Delivery Method Room Air Room Air Weight Weight: 198.8 kg Body Mass Index (BMI) 56.2 Physical Exam Narrative Physical exam: General: Well-nourished, well-developed. Head: Normocephalic, atraumatic, no tenderness Eyes: Vision is grossly intact. EOMI ENT, no trauma, moist mucous membranes, no rhinorrhea Neck: Nontender, No thyromegaly. CVS: Regular rate and rhythm. S1-S2 present. No murmur, gallop or rub. Respiratory : clear to auscultation bilaterally, chest wall nontender Abdomen: Soft, nontender, nondistended, normal bowel sounds, no masses : Deferred Back: Nontender, no CVA tenderness, no midline spinal tenderness, deformities, step-offs Extremities: Nontender full range of motion, no trauma Skin: Normal color, no trauma, abrasions Neuro: Alert, oriented, cranial nerves II through XII grossly intact. Psychiatry: Normal mood. Normal affect. Not depressed. Not anxious. Results Lab / Micro Data 01/17/24 06:40 01/17/24 06:40 Labs: Laboratory Results - last 24 hr 01/16/24 11:37: Urine Color Yellow, Urine Clarity Clear, Urine pH 6.0, Ur Specific [place] 1.010, Urine Protein Negative, Urine Glucose (UA) Normal, Urine Ketones Negative, Urine Occult Blood 10 H, Urine Nitrite Negative, Urine Bilirubin Negative, Urine Urobilinogen 1 H, Ur Leukocyte Esterase 500 H, Urine RBC 0-5 SEEN, Urine WBC 25-50 SEEN, Ur Squamous Epith Cells 0 SEEN, Urine Bacteria 1+, Urine Mucus 0 SEEN 01/16/24 11:55: WBC 6.7, RBC 4.91, Hgb 15.9, Hct 47.2, MCV 96.1 H, MCH 32.4 H, MCHC 33.7, RDW Std Deviation 45.2 H, RDW Coeff of Tasha 12.6, Plt Count 234, MPV 10.4, Immature Gran % (Auto) 0.300, Neut % (Auto) 68.8, Lymph % (Auto) 16.8 L, [place] % (Auto) 11.1 H, Eos % (Auto) 2.1, Baso % (Auto) 0.9, Absolute Neuts (auto) 4.6, Absolute Lymphs (auto) 1.12, Nucleated RBC % 0, Sodium 135 L, Potassium 3.7, Chloride 97 L, Carbon Dioxide 33.0 H, Anion Gap 5, BUN 5 L, Creatinine 0.71, Estim Creat Clear Calc 196.59, Est GFR (MDRD) Af Amer 144, Est GFR (MDRD) Non-Af 119, BUN/Creatinine Ratio 7.0 L, Glucose 144 H, Calcium 8.0 L Imaging Radiology Impression Abdomen/Pelvis CT 01/16/24 11:52 IMPRESSION: 1. Moderate hepatomegaly and moderate hepatic steatosis. 2. IVC filter in place. If this is a retrievable IVC [place] filter, please refer to interventional radiologist or vascular surgeon who performed the IVC filter placement. 3. No suspicious acute abnormality in the abdomen and pelvis. 4. Mild constipation in the rectosigmoid colon. Electronically Signed: Sukh Jones MD at 12:49 EDT , Brain CT 01/16/24 11:52 IMPRESSION: 1. No CT evidence of intracranial bleeding, acute ischemic infarct, intracranial mass or acute intracranial abnormality. 2. Limited study due to streak artifacts coming from patients broad shoulder/morbid obesity and CT table. Electronically Signed: Sukh Jones MD at 12:43 EDT , Chest X-Ray 01/16/24 12:20 IMPRESSION: No radiographic evidence of acute cardiopulmonary disease. Electronically Signed: Sukh Jones MD at 13:03 EDT , Assessment & Plan Assessment/Plan (1) Weakness: (2) Atrial fibrillation: QUALIFIERS: Atrial fibrillation type: paroxysmal Qualified Code(s): I48.0 - Paroxysmal atrial fibrillation (3) UTI (urinary tract infection): QUALIFIERS: Hematuria presence: without hematuria Urinary tract infection type: acute cystitis Qualified Code(s): N30.00 - Acute cystitis without hematuria (4) Unable to ambulate: PLAN: Plan Generalized weakness and chronic pain/unable to ambulate PT and OT to work with patient. Case management consult for disposition. Check TSH and vitamin D. Acute cystitis without hematuria Urinalysis abnormal. Sister present emergency department. With the patient's BMI of 56.3 kg/m? will dose ceftriaxone 2 g every 24 hours. Follow urine culture. Atrial fibrillation Twelve-lead EKG was interpreted: Sinus rhythm with a premature supraventricular complexes. Home Xarelto will be continued. Metoprolol will be continued. Peripheral artery disease Cold right foot. Dusky bilateral legs. Check MICHELLE Morbid obesity Obesity BMI of of 56.3 kg/m?. Complicates care. Lifestyle modification recommended. Time spent in the patient's overall evaluation,decision-making process, review of diagnostic data, adjustment of management, discussion with other providers, nursing and ancillary staff involved in patient's care documentation, 65 minutes. Advance care planning: Discussed with patient and family advanced directives as well as CODE STATUS. Explained various CODE STATUS: FULL CODE, DNR CCA, DNR CCA with no intubation, and DNR CC- and what each meant. Patient elected to be a full code with CPR and intubation if warranted. Order was placed. Time spent on discussion 16 minutes. Charges/Coding Visit Charges Inpatient E&M: 81487 Init Hosp L3 Procedures Hospitalists Procedures: 10030 Advncd Care Plan 30 Min
--- NOTE | 2024-01-16 16:58 | ART_ITS ---
Reason For Study: Cold Legs Procedure A bilateral lower extremity continuous wave Doppler with analog waveform analysis and ankle brachial indexes. Left Segmental Pressures Left brachial= 127mmHg. Left posterior tibial artery = 156mmHg. Left dorsalis pedis artery = 159mmHg. Left digit = 129 mmHg. The left posterior tibial artery waveforms are triphasic. The left dorsalis pedis waveforms are triphasic. Right Segmental Pressures Unable to acquire Rt Brachial BP due to IV. Right posterior tibial artery = 166mmHg. Right dorsalis pedis artery = 158mmHg. Right digit = 86 mmHg. The right posterior tibial artery waveforms are triphasic. The right dorsalis pedis waveforms are triphasic. Indices The right ankle brachial index by the posterior tibial artery is 1.31. The right ankle brachial index by the dorsalis pedis is 1.24. The right digital-brachial index is 0.68. The left ankle brachial index by the posterior tibial artery is 1.23. The left ankle brachial index by the dorsalis pedis is 1.25. The left digital-brachial index is 1.02. VL/Ankle Brachial Index Interpretation Summary Normal right lower extremity posterior tibialis and dorsalis pedis ankle-brachi al indices of 1.31 and 1.28 respectively with normal triphasic Doppler waveforms Borderline abnormal right digital brachial index of 0.68 suggestive of possible small vessel disease Normal left lower extremity posterior tibialis and dorsalis pedis ankle-brachia l indices of rest at 1.23 and 1.25 respectively with normal triphasic Doppler waveforms. Normal left digital brachial index of 1.02 Ordering Physician: Sunil Parker Referring Physician: Chalo Mclean Chi Performed By: Pancho Lawson RVT
[2024-01-16] MEDS: oxyCODONE 5 MG Tablet PO ×2 (17:28→22:48)
[2024-01-16] MEDS: Acetaminophen 325 MG Tablet 650 MG PO ×2 (17:28→22:48)
[2024-01-16] MEDS: Ondansetron 4 MG/2 ML Vial IV (21:49)
[2024-01-16] MEDS: 0.9% Saline Lock 10 ML Syringe IV (21:50)
[2024-01-16] MEDS: Calcium Carbonate 500 MG Tablet 1000 MG PO (22:48)
[2024-01-16] MEDS: Metoprolol(XL)Succ 100 MG Tablet PO (22:48)
[2024-01-16] MEDS: DOXEPIN HCL 50 MG CAPSULE PO (22:48)
[2024-01-17] VITALS (10 sets, daily range): BP systolic 91–124; BP diastolic 49–80; PULSE 65–73; RESP 16–18; TEMP 36.3–36.9; O2SAT 93–99
[2024-01-17] MEDS: oxyCODONE 5 MG Tablet PO ×3 (05:02→18:12)
[2024-01-17] MEDS: Acetaminophen 325 MG Tablet 650 MG PO ×2 (05:02→11:30)
[2024-01-17 07:20] LABS: Absolute Lymphocyte Count 1.41 X10^3/uL (0.83-4.51); Absolute Neutrophil Count 2.9 X10^3/uL (2.0-7.7); Basophil# 0.05 X10^3/uL; Eosinophil# 0.22 X10^3/uL; Eosinophils% 4.2 % (0-5); Hematocrit 42.3 % (40-54); Hemoglobin 13.8 g/dL (13.0-16.5); Lymphocyte # 1.41 X10^3/ul (0.83-4.51); Mean Corp Hgb Conc 32.6 g/dL (32-36); Mean Corpuscular Hgb 32.1 pg (27.0-32.0); Mean Corpuscular Volume 98.4 fL (80-94); Mean Platelet Vol. 10.3 fl (6.2-12.0); Monocyte# 0.67 X10^3/uL; Monocyte% 12.8 % (0-10); NRBC Flagged by Analyzer 0 % (0-5); Neutrophil # 2.85 X10^3/uL (2.7-7.7); Neutrophil % 54.6 % (47-70); POSITIVE MORPHOLOGY YES; Platelet Count 214 K/mm3 (150-450); RBC Distribution Width CV 12.8 % (11.6-14.6); RBC Distribution Width SD 46.1 fl (35.1-43.9); White Blood Count 5.2 K/mm3 (4.4-11.0)
[2024-01-17 07:35] LABS: Differential Indicated SCAN CRITERIA MET
[2024-01-17 07:52] LABS: Anion Gap 5 (5-15); BUN 8 mg/dL (7-18); BUN/Creat Ratio 13.6 RATIO (10-20); Calcium,Total 7.2 mg/dL (8.5-10.1); Chloride 101 mmol/L (98-107); Creatinine, Serum 0.59 mg/dL (0.70-1.30); EST Glomerular Filtration Rate 148 mL/min (>60); Est Glom Filt Rate - Afr Amer 179 mL/min (>60); Estimated Creatinine Clearance 233.63 ml/min; Glucose 117 mg/dL (74-106); Potassium 3.2 mmol/L (3.5-5.1); Sodium Level 138 mmol/L (136-145); Thyroid Stim Hormone (TSH) 3.75 uIU/mL (0.358-3.74)
[2024-01-17 08:16] LABS: Differential Comment SCANNED
[2024-01-17] MEDS: Ceftriaxone 2 GM in 0.9% Normal Saline (50mL MB+) 50 ML IV (09:08)
[2024-01-17] MEDS: Furosemide 40 MG Tablet PO (09:08)
[2024-01-17] MEDS: Tamsulosin HCl 0.4 MG Capsule PO (09:09)
[2024-01-17] MEDS: 0.9% Saline Lock 10 ML Syringe IV ×2 (09:09→11:24)
[2024-01-17] MEDS: Finasteride 5 MG Tablet PO (09:09)
[2024-01-17] MEDS: Losartan Potassium 25 MG Tablet PO (09:09)
[2024-01-17] MEDS: Metoprolol(XL)Succ 100 MG Tablet PO (09:10)
[2024-01-17] MEDS: Ondansetron 4 MG/2 ML Vial IV (11:24)
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
--- NOTE | 2024-01-17 12:55 | PCM.PN.HOSP ---
Subjective Subjective Patient admitted yesterday afternoon for acute on chronic debility. No acute events overnight. Saw patient at bedside this morning. Sitting up comfortably in bed, conversing normally, in no acute distress. Patient lives at home alone but his sister stays with him most nights and he has a private aide to help him with his ADLs 7 days/week. Has history of falls with debility as well as super morbid obesity and uses a wheelchair for getting around. He is typically able to stand at baseline and transfer from wheelchair to lift chair to bed, however for the past 2 weeks he has not been able to do this. Patient states today that he was able to stand with the help of physical therapy. However, he continues to have some bilateral lower leg pain as well as general leg weakness and bilateral arm weakness. Denies any fevers or chills. Denies any other pain or discomfort. No other acute concerns this morning. Objective Data Objective Data Vital Signs: Vital Signs Temp Pulse Resp BP Pulse Ox O2 Del Method O2 Flow Rate 97.4 F L 70 18 122/63 H 96 Nasal Cannula 2 01/17/24 08:49 01/17/24 09:10 01/17/24 08:49 01/17/24 08:49 01/17/24 08:49 01/17/24 08:50 01/17/24 10:49 Oxygen Flow Rate (L/min) 2 Oxygen Delivery Method Nasal Cannula Weight: 194.8 kg Body Mass Index (BMI) 55.1 Intake & Output: Intake and Output for Last 24 Hours 01/15/24 01/16/24 01/17/24 23:59 23:59 23:59 Intake Total 827.5 / 977.5 640 / 640 Output Total 450 / 825 1175 / 1175 Balance 377.5 / 152.5 -535 / -535 Lab / Micro Data 01/17/24 06:40 01/17/24 06:40 Labs: Laboratory Results - last 24 hr 01/17/24 06:40: WBC 5.2, RBC 4.30 L, Hgb 13.8, Hct 42.3, MCV 98.4 H, MCH 32.1 H, MCHC 32.6, RDW Std Deviation 46.1 H, RDW Coeff of Tasha 12.8, Plt Count 214, MPV 10.3, Immature Gran % (Auto) 0.400, Neut % (Auto) 54.6, Lymph % (Auto) 27.0, [place] % (Auto) 12.8 H, Eos % (Auto) 4.2, Baso % (Auto) 1.0, Absolute Neuts (auto) 2.9, Absolute Lymphs (auto) 1.41, Nucleated RBC % 0, Differential Comment SCANNED, Sodium 138, Potassium 3.2 L, Chloride 101, Carbon Dioxide 32.0, Anion Gap 5, BUN 8, Creatinine 0.59 L, Estim Creat Clear Calc 233.63, Est GFR (MDRD) Af Amer 179, Est GFR (MDRD) Non-Af 148, BUN/Creatinine Ratio 13.6, Glucose 117 H, Calcium 7.2 L, TSH 3.75 H Micro: Microbiology 01/16/24 11:37 Urine Catheter - [facility] Urine Culture - Preliminary Radiography Diagnostic Testing: Radiology Impression Chest X-Ray 01/16/24 12:20 IMPRESSION: No radiographic evidence of acute cardiopulmonary disease. Electronically Signed: Sukh Jones MD at 13:03 EDT , Ankle Brachial Index 01/16/24 16:58 Interpretation Summary Normal right lower extremity posterior tibialis and dorsalis pedis ankle-brachial indices of 1.31 and 1.28 respectively with normal triphasic Doppler waveforms Borderline abnormal right digital brachial index of 0.68 suggestive of possible small vessel disease Normal left lower extremity posterior tibialis and dorsalis pedis ankle-brachial indices of rest at 1.23 and 1.25 respectively with normal triphasic Doppler waveforms. Normal left digital brachial index of 1.02 Ordering Physician: Sunil Parker Referring Physician: Chalo Mclean Chi Performed By: Pancho Lawson, RVT Physical Exam Const alert, oriented x3 and no apparent distress Constitutional Narrative: Pleasant elderly male, morbidly obese, otherwise sitting up comfortably in bed, conversing normally, in no acute distress. General Appearance: cooperative and comfortable HEENT normocephalic, head/scalp atraumatic, hearing grossly normal bilaterally and nasal mucous membranes and turbinates normal Eyes PERRL, EOMs intact bilaterally and conjunctivae normal Neck full ROM Chest inspection of chest normal Resp normal respiratory effort, normal air movement, no use of accessory muscles and clear to auscultation bilaterally Cardio regular rate, regular rhythm, no murmurs and peripheral pulses 2+ throughout GI normal to inspection, nondistended, normoactive bowel sounds, soft to palpation, non-tender and non-distended Back/Spine normal ROM Extremity Extremity Narrative: Chronic bilateral lower extremity venous stasis changes with +1-2 nonpitting edema noted. No pain or tenderness to palpation bilaterally. Skin no rashes or lesions noted Neuro oriented x3 and moves all extremities Speech: speech normal Psych mental status grossly normal Assessment & Plan Assessment/Plan (1) Adult failure to thrive: (2) Weakness: (3) UTI (urinary tract infection): QUALIFIERS: Urinary tract infection type: acute cystitis Hematuria presence: without hematuria Qualified Code(s): N30.00 - Acute cystitis without hematuria (4) Chronic pain of both lower extremities: PLAN: Plan Patient is a 63-year-old male who presented [facility] ED on 01/16/2024 with worsening generalized weakness. 1. Adult failure to thrive with acute on chronic debility ? PT/OT/case management following. Lives at home alone with private help 7 days/week and help from sister at night. Has had increased difficulty with transferring from wheelchair to lift to bed and aids are not able to help with this. Suspected mild worsening of generalized weakness due to deconditioning. Planning for SNF on discharge, likely medically ready on 01/17. 2. Chronic bilateral lower extremity edema and neuropathy, history of peripheral artery disease ? Patient reported worsening lower extremity pain over the past several weeks. However, ABG studies completed on 01/16 and appeared similar to previous. Continue home Lasix. Notably had significant side effects with gabapentin and Lyrica in the past. Continue outpatient follow-up with neurology as needed. 3. Acute cystitis, history of urinary retention with intermittent self-catheterization ? UA on admit infectious appearing. No systemic signs of infection. Urine culture pending. Last urine culture from 2021 grew present of E. coli and Acinetobacter that were susceptible to ceftriaxone. Continue ceftriaxone for now. Maintain urinary catheter while hospitalized, can consider discontinuing on discharge with resuming intermittent self cath if patient desires. Chronic medical conditions: ? Morbid obesity: BMI 55 on admit. Complicates hospital course, care and prognosis. ? Paroxysmal A-fib on Xarelto: Normal sinus rhythm with PVCs on admit. Continue home Xarelto and Toprol. ? BPH with obstructive symptoms: Continue home tamsulosin and finasteride. ? Hypertension: Mild hypotension on admit suspected due to recent decreased p.o. intake. Holding home losartan, restart as needed. ? Insomnia: Continue home doxepin. DVT prophylaxis: Xarelto CODE STATUS: Full code, verified Expected disposition: SNF, 1 to 2 days Total clinical time spent by myself addressing the patient's medical issues, reviewing all the data, and collaborating with patient's care team: 35 minutes. Charges/Coding Visit Charges Inpatient E&M: 76299 Subs Hosp L2
[2024-01-17] MEDS: Potassium Chloride Oral Tablet 20 MEQ 40 MEQ PO (14:29)
[2024-01-17] MEDS: Lactated Ringers 1,000 ML 250 ML IV ×2 (14:42→18:01)
--- NOTE | 2024-01-17 14:51 | CASEMGMT ---
Social Work- A list of SNF providers including quality and resource use data and consistent with the patient?s preferred geographic region, medical needs, and insurance network were provided from the [facility] Guide. Pt states that he needs a facility to accommodate bariatric patients. Pt states that he is unable to stand independently to transfer and needs full care. Pt states that he has an aide 7x/week during the day plus his sister comes in the evenings to assist him. Pt states that last fall through winter, he sustained three falls before coming down with viruses this spring. Pt reports that he has lost all ability to even reposition himself in bed. Pt reports that he has transportation and accessibility issues in his home due to his 37 wheelchair and 29 hallways and 31 doorways. PIERRE Luna
--- NOTE | 2024-01-17 15:02 | CASEMGMT ---
Social Work- SW met with pt to discuss advance directives.? Pt states that his niece, Yosef [id number], has documents drawn up for him to sign and plans to being them in Monday. PIERRE Luna
[2024-01-17 15:16] LABS: Magnesium 1.7 mg/dL (1.6-2.6)
--- NOTE | 2024-01-17 15:31 | CASEMGMT ---
Social Work- SW called [facility] and left a vm regarding pt status. PIERRE Luna
[2024-01-17] MEDS: Rivaroxaban 20 MG Tablet PO (17:37)
[2024-01-17] MEDS: DOXEPIN HCL 50 MG CAPSULE PO (21:55)
[2024-01-18] VITALS (10 sets, daily range): BP systolic 95–120; BP diastolic 51–78; PULSE 66–84; RESP 15–18; TEMP 36.2–37.1; O2SAT 96–100
[2024-01-18] MEDS: oxyCODONE 5 MG Tablet PO ×3 (00:23→17:43)
[2024-01-18] MEDS: Tamsulosin HCl 0.4 MG Capsule PO (09:15)
[2024-01-18] MEDS: Ceftriaxone 2 GM in 0.9% Normal Saline (50mL MB+) 50 ML IV (09:15)
[2024-01-18] MEDS: Finasteride 5 MG Tablet PO (09:15)
[2024-01-18] MEDS: Metoprolol(XL)Succ 50 MG Tablet PO ×2 (11:14→23:00)
[2024-01-18] MEDS: Furosemide 40 MG Tablet PO (11:15)
--- NOTE | 2024-01-18 13:00 | CHAPLAIN ---
Type of Pastoral Visit _x__ Initial Visit ___ Follow-up Visit ___ On-call Visit ___ General Patient Visit ___ Spiritual Assessment ___ Family Conference ___ Bereavement ___ Rapid Response ___ Code Blue ___ Other (describe below) Pastoral Care Referral From _x__ Patient ___ Family ___ Nurse ___ Physician ___ Global Ceo ___ Talent Associate ___ Other (describe below) Sacrament/Intervention _x__ Active listening ___ Anointing ___ Restoration ___ Bereavement ___ Communion _x__ Cyndi exploration ___ ___ Life review _x__ Prayer ___ Reconciliation ___ Sacrament of Sick _x__ Supportive presence ___ Wedding ___ Other (describe below) Pastoral Comments patient has been seen before in previous admissions; pt reports on his current health situation and relates concerns about where he will go next for rehab; pt likes to talk about his advent activity and cyndi practices; pt is active online with social media and speaks about this interest in life; pt is given time to talk, express his feelings, and relate on issues of cyndi; prayer is welcomed
--- NOTE | 2024-01-18 13:08 | PN.HOSP_ITS ---
Reason for Visit Reason for Visit: Diagnoses Other chronic pain (01/16/24) Paroxysmal atrial fibrillation (01/16/24) Pain in right leg (01/16/24) Pain in left leg (01/16/24) Acute cystitis without hematuria (01/16/24) Difficulty in walking, not elsewhere classified (01/16/24) Weakness (01/16/24) Adult failure to thrive (01/16/24) Subjective Subjective No acute events overnight. Patient seen at bedside this morning. Patient was sleeping on my arrival to the room. Remained somewhat somnolent during our encounter but was answering questions appropriately. Denies any new concerns this morning. Objective Data Objective Data Vital Signs: Vital Signs Temp Pulse Resp BP Pulse Ox O2 Del Method O2 Flow Rate 98.8 F 77 18 115/64 97 Room Air 2 01/18/24 10:49 01/18/24 11:14 01/18/24 10:49 01/18/24 10:49 01/18/24 10:49 01/18/24 11:04 01/18/24 10:49 Oxygen Flow Rate (L/min) 2 Oxygen Delivery Method Room Air Weight: 194.8 kg Body Mass Index (BMI) 55.1 Intake & Output: Intake and Output for Last 24 Hours 01/16/24 01/17/24 01/18/24 23:59 23:59 23:59 Intake Total 827.5 / 977.5 1577.50 / 2177.50 850 / 850 Output Total 450 / 825 2425 / 3100 1425 / 1425 Balance 377.5 / 152.5 -847.50 / -922.50 -575 / -575 Lab / Micro Data 01/17/24 06:40 01/17/24 06:40 Labs: Laboratory Results - last 24 hr 01/17/24 06:40: Vitamin D 25-Hydroxy 18.0 01/17/24 14:56: Magnesium 1.7 Micro: Microbiology 01/16/24 11:37 Urine Catheter - [facility] Urine Culture - Preliminary GNR lactose marketing finance manager GNR lactose marketing finance manager#2 Physical Exam Const alert, oriented x3 and no apparent distress Constitutional Narrative: Pleasant elderly male, morbidly obese, otherwise laying comfortably in bed, conversing normally, in no acute distress. General Appearance: cooperative and comfortable HEENT normocephalic, head/scalp atraumatic, hearing grossly normal bilaterally and nasal mucous membranes and turbinates normal Eyes PERRL, EOMs intact bilaterally and conjunctivae normal Neck full ROM Chest inspection of chest normal Resp normal respiratory effort, normal air movement, no use of accessory muscles and clear to auscultation bilaterally Cardio regular rate, regular rhythm, no murmurs and peripheral pulses 2+ throughout GI normal to inspection, nondistended, normoactive bowel sounds, soft to palpation, non-tender and non-distended Back/Spine normal ROM Extremity Extremity Narrative: Chronic bilateral lower extremity venous stasis changes with +1-2 nonpitting edema noted. No pain or tenderness to palpation bilaterally. Stable. Skin no rashes or lesions noted Neuro oriented x3 and moves all extremities Speech: speech normal Psych mental status grossly normal Assessment & Plan Assessment/Plan (1) Adult failure to thrive: (2) Weakness: (3) UTI (urinary tract infection): QUALIFIERS: Urinary tract infection type: acute cystitis H ematuria presence: without hematuria Qualified Code(s): N30.00 - Acute cystitis without hematuria (4) Chronic pain of both lower extremities: PLAN: Plan Patient is a 63-year-old male who presented [facility] ED on 01/16/2024 with worsening generalized weakness. 1. Adult failure to thrive with acute on chronic debility ? PT/OT/case management following. Lives at home alone with private help 7 days/week and help from sister at night. Has had increased difficulty with transferring from wheelchair to lift to bed and aids are not able to help with this. Suspected mild worsening of generalized weakness due to deconditioning. Medically ready for discharge on 01/17, awaiting SNF placement. 2. Chronic bilateral lower extremity edema and neuropathy, history of peripheral artery disease ? Patient reported worsening lower extremity pain over the past several weeks. However, ABG studies completed on 01/16 and appeared similar to previous. Continue home Lasix. Notably had significant side effects with gabapentin and Lyrica in the past. Continue outpatient follow-up with neurology as needed. 3. Acute cystitis, history of urinary retention with intermittent self- catheterization ? UA on admit infectious appearing. No systemic signs of infection. Urine culture prelim positive for 50-80K gram negative rods. Last urine culture from 2021 grew present of E. coli and Acinetobacter that were susceptible to ceftriaxone. Continue ceftriaxone for now. Maintain urinary catheter while hospitalized, can consider discontinuing on discharge with resuming intermittent self cath if patient desires. Chronic medical conditions: ? Morbid obesity: BMI 55 on admit. Complicates hospital course, care and prognosis. ? Paroxysmal A-fib on Xarelto: Normal sinus rhythm with PVCs on admit. Continue home Xarelto and Toprol. ? BPH with obstructive symptoms: Continue home tamsulosin and finasteride. ? Hypertension: Mild hypotension on admit suspected due to recent decreased p.o. intake. Holding home losartan, restart as needed. ? Insomnia: Continue home doxepin. DVT prophylaxis: Xarelto CODE STATUS: Full code, verified Expected disposition: SNF, medically ready on 01/17, awaiting placement Total clinical time spent by myself addressing the patient's medical issues, reviewing all the data, and collaborating with patient's care team: 35 minutes. Charges/Coding Visit Charges Inpatient E&M: 44747 Subs Hosp L2
--- NOTE | 2024-01-18 14:32 | CASEMGMT ---
Social Work- SW spoke with pt who states that he spoke with his CONSULTING ENGINEER who encouraged him to remain as near [place] as possible for her involvement to continue while he is in a SNF. Pt states that his niece is coming later today to discuss options, but he has [facility] in mind [facility] as he has been there before. SW advised DCA of FOC for referral process to begin. PIERRE Luna
--- NOTE | 2024-01-18 14:34 | CASEMGMT ---
Addendum entered by Padmaja Gonzales 01/18/24 14:53: [facility] declined referral. SW updated. Padmaja Gonzales DC Planning Asst. Original Note: [facility]charge Planning [facility]. Padmaja Gonzales DC Planning Asst.
--- NOTE | 2024-01-18 14:53 | CASEMGMT ---
Addendum entered by Padmaja Gonzales 01/19/24 12:32: [facility] declined. SW updated. Padmaja Gonzales DC Planning Asst. Addendum entered by Padmaja Gonzales 01/19/24 08:41: Msg sent to [facility] requesting status of referral. SW updated. Padmaja Gonzales DC Planning Asst. Original Note: Discharge Planning Referral sent to [facility] via [facility]. Padmaja Gonzales DC Planning Asst.
--- NOTE | 2024-01-18 16:23 | CASEMGMT ---
Social Work- SW spoke with pt to advise that [facility] not [facility] any beds at this time, but they were forwarding the referral to [facility] facility[facility]. Pt states he will discuss other facilities with tana this evening when she comes. PIERRE Luna
[2024-01-18] MEDS: Rivaroxaban 20 MG Tablet PO (16:58)
[2024-01-18] MEDS: Menthol/Lanolin/Calamine/Znox 113 GM Tube 1 APPLIC TOPICAL ×2 (17:39→21:23)
[2024-01-18] MEDS: Nystatin Powder 15gm Bottle 1 APPLIC TOPICAL ×2 (17:39→21:23)
[2024-01-18] MEDS: DOXEPIN HCL 50 MG CAPSULE PO (21:23)
[2024-01-19] VITALS (10 sets, daily range): BP systolic 110–121; BP diastolic 56–66; PULSE 70–81; RESP 15–20; TEMP 36.5–37.1; O2SAT 96–100
[2024-01-19] MEDS: oxyCODONE 5 MG Tablet PO ×3 (02:54→21:25)
[2024-01-19 06:47] LABS: Hematocrit 46.3 % (40-54); Hemoglobin 14.9 g/dL (13.0-16.5); Mean Corp Hgb Conc 32.2 g/dL (32-36); Mean Corpuscular Hgb 32.7 pg (27.0-32.0); Mean Corpuscular Volume 101.8 fL (80-94); Mean Platelet Vol. 9.8 fl (6.2-12.0); Platelet Count 262 K/mm3 (150-450); RBC Distribution Width CV 12.8 % (11.6-14.6); RBC Distribution Width SD 48.3 fl (35.1-43.9); Red Blood Count 4.55 M/mm3 (4.6-6.2)
[2024-01-19] MEDS: Nystatin Powder 15gm Bottle 1 APPLIC TOPICAL ×2 (08:27→21:27)
[2024-01-19] MEDS: Menthol/Lanolin/Calamine/Znox 113 GM Tube 1 APPLIC TOPICAL ×2 (08:33→21:28)
[2024-01-19 09:07] LABS: Anion Gap 4 (5-15); BUN 8 mg/dL (7-18); BUN/Creat Ratio 13.6 RATIO (10-20); Calcium,Total 7.4 mg/dL (8.5-10.1); Chloride 101 mmol/L (98-107); Creatinine, Serum 0.59 mg/dL (0.70-1.30); EST Glomerular Filtration Rate 149 mL/min (>60); Est Glom Filt Rate - Afr Amer 180 mL/min (>60); Estimated Creatinine Clearance 233.63 ml/min; Glucose 114 mg/dL (74-106); Potassium 3.3 mmol/L (3.5-5.1); Sodium Level 139 mmol/L (136-145)
--- NOTE | 2024-01-19 09:34 | CASEMGMT ---
Social Work- SW met with pt to discuss care choices. Pt states that he is still waiting for [facility] to call, but his niece felt [facility] in [place] was acceptable for a referral. Pt is also agreeable for referral to [facility]. SW advised DCA of referral preferences. PIERRE Luna
--- NOTE | 2024-01-19 09:39 | CASEMGMT ---
Addendum entered by Padmaja Gonzales 01/19/24 13:33: [facility] declined. SW updated. Padmaja Gonzales DC Planning Asst. Original Note: [facility]. Padmaja Gonzales DC Planning Asst.
[2024-01-19] MEDS: Furosemide 40 MG Tablet PO (10:39)
[2024-01-19] MEDS: Tamsulosin HCl 0.4 MG Capsule PO (10:39)
[2024-01-19] MEDS: Metoprolol(XL)Succ 50 MG Tablet PO ×2 (10:39→21:26)
[2024-01-19] MEDS: Finasteride 5 MG Tablet PO (10:39)
[2024-01-19] MEDS: Ceftriaxone 2 GM in 0.9% Normal Saline (50mL MB+) 50 ML IV (11:03)
--- NOTE | 2024-01-19 11:06 | PN.HOSP_ITS ---
Reason for Visit Reason for Visit: Diagnoses Other chronic pain (01/16/24) Paroxysmal atrial fibrillation (01/16/24) Pain in right leg (01/16/24) Pain in left leg (01/16/24) Acute cystitis without hematuria (01/16/24) Difficulty in walking, not elsewhere classified (01/16/24) Weakness (01/16/24) Adult failure to thrive (01/16/24) Subjective Subjective No acute events overnight. Patient seen at bedside this morning. Was sleeping on my arrival to the room. Stated he felt fatigued this morning, similar to yesterday. Denies any new pain or discomfort this morning. No other acute concerns today. Objective Data Objective Data Vital Signs: Vital Signs Temp Pulse Resp BP Pulse Ox O2 Del Method O2 Flow Rate 97.9 F 71 20 H 121/66 H 100 Nasal Cannula 2 01/19/24 08:47 01/19/24 10:39 01/19/24 08:47 01/19/24 08:47 01/19/24 08:47 01/19/24 08:47 01/19/24 08:47 Oxygen Flow Rate (L/min) 2 Oxygen Delivery Method Nasal Cannula Weight: 194.8 kg Body Mass Index (BMI) 55.1 Intake & Output: Intake and Output for Last 24 Hours 01/17/24 01/18/24 01/19/24 23:59 23:59 23:59 Intake Total 1577.50 / 2177.50 850 / 1150 300 / 300 Output Total 2425 / 3100 2225 / 2725 750 / 750 Balance -847.50 / -922.50 -1375 / -1575 -450 / -450 Lab / Micro Data 01/19/24 06:35 01/19/24 08:00 Labs: Laboratory Results - last 24 hr 01/19/24 06:35: WBC 6.0, RBC 4.55 L, Hgb 14.9, Hct 46.3, MCV 101.8 H, MCH 32.7 H , MCHC 32.2, RDW Std Deviation 48.3 H, RDW Coeff of Tasha 12.8, Plt Count 262, MPV 9.8, Sodium Cancelled, Potassium Cancelled, Chloride Cancelled, Carbon Dioxide Cancelled, Anion Gap Cancelled, BUN Cancelled, Creatinine Cancelled, Estim Creat Clear Calc Cancelled, Est GFR (MDRD) Af Amer Cancelled, Est GFR (MDRD) Non-Af Cancelled, BUN/Creatinine Ratio Cancelled, Glucose Cancelled, Calcium Cancelled 01/19/24 08:00: Sodium 139, Potassium 3.3 L, Chloride 101, Carbon Dioxide 34.0 H , Anion Gap 4 L, BUN 8, Creatinine 0.59 L, Estim Creat Clear Calc 233.63, Est GFR (MDRD) Af Amer 180, Est GFR (MDRD) Non-Af 149, BUN/Creatinine Ratio 13.6, G lucose 114 H, Calcium 7.4 L Micro: Microbiology 01/16/24 11:37 Urine Catheter - [facility] Urine Culture - Final Escherichia coli Physical Exam Const alert, oriented x3 and no apparent distress Constitutional Narrative: Pleasant elderly male, morbidly obese, otherwise laying comfortably in bed, conversing normally, in no acute distress. General Appearance: cooperative and comfortable HEENT normocephalic, head/scalp atraumatic, hearing grossly normal bilaterally and nasal mucous membranes and turbinates normal Eyes PERRL, EOMs intact bilaterally and conjunctivae normal Neck full ROM Chest inspection of chest normal Resp normal respiratory effort, normal air movement, no use of accessory muscles and clear to auscultation bilaterally Cardio regular rate, regular rhythm, no murmurs and peripheral pulses 2+ throughout GI normal to inspection, nondistended, normoactive bowel sounds, soft to palpation, non-tender and non-distended Back/Spine normal ROM Extremity Extremity Narrative: Chronic bilateral lower extremity venous stasis changes with +1-2 nonpitting edema noted. No pain or tenderness to palpation bilaterally. Stable. Skin no rashes or lesions noted Neuro oriented x3 and moves all extremities Speech: speech normal Psych mental status grossly normal Assessment & Plan Assessment/Plan (1) Adult failure to thrive: (2) Weakness: (3) UTI (urinary tract infection): QUALIFIERS: Urinary tract infection type: acute cystitis H ematuria presence: without hematuria Qualified Code(s): N30.00 - Acute cystitis without hematuria (4) Chronic pain of both lower extremities: PLAN: Plan Patient is a 63-year-old male who presented [facility] ED on 01/16/2024 with worsening generalized weakness. 1. Adult failure to thrive with acute on chronic debility ? PT/OT/case management following. Lives at home alone with private help 7 days/week and help from sister at night. Has had increased difficulty with transferring from wheelchair to lift to bed and aids are not able to help with this. Suspected mild worsening of generalized weakness due to deconditioning. Medically ready for discharge on 01/17, awaiting SNF placement. 2. Chronic bilateral lower extremity edema and neuropathy, history of peripheral artery disease ? Patient reported worsening lower extremity pain over the past several weeks. However, ABG studies completed on 01/16 and appeared similar to previous. Continue home Lasix. Notably had significant side effects with gabapentin and Lyrica in the past. Continue outpatient follow-up with neurology as needed. 3. Acute cystitis, history of urinary retention with intermittent self- catheterization ? UA on admit infectious appearing. No systemic signs of infection. Urine culture positive for 50-80K E. coli; unclear if resistant to ceftriaxone, is sensitive to cefepime but resistant to cefazolin. Treated with ceftriaxone on admit, transitioned to Macrobid on 01/18 with plan for 7-day course of Macrobid total, stop date 01/24. Maintain urinary catheter while hospitalized, can consider discontinuing on discharge with resuming intermittent self cath if patient desires. Chronic medical conditions: ? Morbid obesity: BMI 55 on admit. Complicates hospital course, care and prognosis. ? Paroxysmal A-fib on Xarelto: Normal sinus rhythm with PVCs on admit. Continue home Xarelto and Toprol. ? BPH with obstructive symptoms: Continue home tamsulosin and finasteride. ? Hypertension: Mild hypotension on admit suspected due to recent decreased p.o. intake. Holding home losartan, restart as needed. ? Insomnia: Continue home doxepin. DVT prophylaxis: Xarelto CODE STATUS: Full code, verified Expected disposition: SNF, medically ready on 01/17, awaiting placement Total clinical time spent by myself addressing the patient's medical issues, reviewing all the data, and collaborating with patient's care team: 35 minutes. Charges/Coding Visit Charges Inpatient E&M: 43412 Subs Hosp L2
[2024-01-19] MEDS: Nitrofurantoin Macrocrystals 100 MG Capsule PO ×2 (13:12→21:26)
--- NOTE | 2024-01-19 14:20 | CASEMGMT ---
Social Work Pt gave [facility] as another SNF choice, referral sent via [facility]. ROSI Roche
[2024-01-19] MEDS: Rivaroxaban 20 MG Tablet PO (16:38)
[2024-01-19] MEDS: DOXEPIN HCL 50 MG CAPSULE PO (21:26)
[2024-01-20] VITALS (11 sets, daily range): BP systolic 99–129; BP diastolic 61–77; PULSE 74–84; RESP 15–18; TEMP 36.5–37.2; O2SAT 93–98
[2024-01-20] MEDS: 0.9% Saline Lock 10 ML Syringe IV (03:19)
[2024-01-20] MEDS: oxyCODONE 5 MG Tablet PO ×3 (03:19→22:00)
[2024-01-20] MEDS: Menthol/Lanolin/Calamine/Znox 113 GM Tube 1 APPLIC TOPICAL ×2 (08:46→22:01)
[2024-01-20] MEDS: Tamsulosin HCl 0.4 MG Capsule PO (08:47)
[2024-01-20] MEDS: Finasteride 5 MG Tablet PO (08:47)
[2024-01-20] MEDS: Nitrofurantoin Macrocrystals 100 MG Capsule PO ×2 (08:47→21:55)
[2024-01-20] MEDS: Furosemide 40 MG Tablet PO (08:48)
[2024-01-20] MEDS: Nystatin Powder 15gm Bottle 1 APPLIC TOPICAL ×2 (08:48→22:02)
[2024-01-20] MEDS: Metoprolol(XL)Succ 50 MG Tablet PO ×2 (08:49→21:56)
--- NOTE | 2024-01-20 09:55 | PN.HOSP_ITS ---
Reason for Visit Reason for Visit: Diagnoses Other chronic pain (01/16/24) Paroxysmal atrial fibrillation (01/16/24) Pain in right leg (01/16/24) Pain in left leg (01/16/24) Acute cystitis without hematuria (01/16/24) Difficulty in walking, not elsewhere classified (01/16/24) Weakness (01/16/24) Adult failure to thrive (01/16/24) Subjective Subjective No acute events overnight. Saw patient at bedside this morning. Patient was about to work with physical therapy when I saw him. Reported generalized discomfort and ongoing leg pain, similar to previous days. No other new concerns today. Objective Data Objective Data Vital Signs: Vital Signs Temp Pulse Resp BP Pulse Ox O2 Del Method O2 Flow Rate 97.7 F L 74 18 109/61 98 Nasal Cannula 2 01/20/24 03:05 01/20/24 08:49 01/20/24 03:05 01/20/24 08:49 01/20/24 03:05 01/20/24 03:09 01/20/24 03:09 Oxygen Flow Rate (L/min) 2 Oxygen Delivery Method Nasal Cannula Weight: 194.8 kg Body Mass Index (BMI) 55.1 Intake & Output: Intake and Output for Last 24 Hours 01/18/24 01/19/24 01/20/24 23:59 23:59 23:59 Intake Total 850 / 1150 350 / 350 Output Total 2225 / 2725 2600 / 3200 900 / 900 Balance -1375 / -1575 -2250 / -2850 -900 / -900 Lab / Micro Data 01/19/24 06:35 01/19/24 08:00 Micro: Microbiology 01/16/24 11:37 Urine Catheter - [facility]ana Urine Culture - Final Escherichia coli Physical Exam Const alert, oriented x3 and no apparent distress Constitutional Narrative: Pleasant elderly male, morbidly obese, otherwise laying comfortably in bed, conversing normally, in no acute distress. General Appearance: cooperative and comfortable HEENT normocephalic, head/scalp atraumatic, hearing grossly normal bilaterally and nasal mucous membranes and turbinates normal Eyes PERRL, EOMs intact bilaterally and conjunctivae normal Neck full ROM Chest inspection of chest normal Resp normal respiratory effort, normal air movement, no use of accessory muscles and clear to auscultation bilaterally Cardio regular rate, regular rhythm, no murmurs and peripheral pulses 2+ throughout GI normal to inspection, nondistended, normoactive bowel sounds, soft to palpation, non-tender and non-distended Back/Spine normal ROM Extremity Extremity Narrative: Chronic bilateral lower extremity venous stasis changes with +1-2 nonpitting edema noted. No pain or tenderness to palpation bilaterally. Stable. Skin no rashes or lesions noted Neuro oriented x3 and moves all extremities Speech: speech normal Psych mental status grossly normal Assessment & Plan Assessment/Plan (1) Adult failure to thrive: (2) Weakness: (3) UTI (urinary tract infection): QUALIFIERS: Urinary tract infection type: acute cystitis H ematuria presence: without hematuria Qualified Code(s): N30.00 - Acute cystitis without hematuria (4) Chronic pain of both lower extremities: PLAN: Plan Patient is a 63-year-old male who presented [facility] ED on 01/16/2024 with worsening generalized weakness. 1. Adult failure to thrive with acute on chronic debility ? PT/OT/case management following. Lives at home alone with private help 7 days/week and help from sister at night. Has had increased difficulty with transferring from wheelchair to lift to bed and aids are not able to help with this. Suspected mild worsening of generalized weakness due to deconditioning. Medically ready for discharge on 01/17, awaiting SNF placement. 2. Chronic bilateral lower extremity edema and neuropathy, history of peripheral artery disease ? Patient reported worsening lower extremity pain over the past several weeks. However, ABG studies completed on 01/16 and appeared similar to previous. Continue home Lasix. Notably had significant side effects with gabapentin and Lyrica in the past. Continue outpatient follow-up with neurology as needed. 3. Acute cystitis, history of urinary retention with intermittent self- catheterization ? UA on admit infectious appearing. No systemic signs of infection. Urine culture positive for 50-80K E. coli; unclear if resistant to ceftriaxone, is sensitive to cefepime but resistant to cefazolin. Treated with ceftriaxone on admit, transitioned to Macrobid on 01/18 with plan for 7-day course of Macrobid total, stop date 01/24. Maintain urinary catheter while hospitalized, can consider discontinuing on discharge with resuming intermittent self cath if patient desires. Chronic medical conditions: ? Morbid obesity: BMI 55 on admit. Complicates hospital course, care and prognosis. ? Paroxysmal A-fib on Xarelto: Normal sinus rhythm with PVCs on admit. Continue home Xarelto and Toprol. ? BPH with obstructive symptoms: Continue home tamsulosin and finasteride. ? Hypertension: Mild hypotension on admit suspected due to recent decreased p.o. intake. Holding home losartan, restart as needed. ? Insomnia: Continue home doxepin. DVT prophylaxis: Xarelto CODE STATUS: Full code, verified Expected disposition: SNF, medically ready on 01/17, awaiting placement Total clinical time spent by myself addressing the patient's medical issues, reviewing all the data, and collaborating with patient's care team: 35 minutes. Charges/Coding Visit Charges Inpatient E&M: 19586 Subs Hosp L2
[2024-01-20] MEDS: Rivaroxaban 20 MG Tablet PO (16:32)
[2024-01-20] MEDS: DOXEPIN HCL 50 MG CAPSULE PO (21:55)
[2024-01-21] VITALS (8 sets, daily range): BP systolic 111–140; BP diastolic 69–92; PULSE 74–80; RESP 15–18; TEMP 36.7–36.9; O2SAT 97–98
[2024-01-21] MEDS: oxyCODONE 5 MG Tablet PO ×4 (04:03→22:59)
[2024-01-21 05:52] LABS: Anion Gap 5 (5-15); BUN 10 mg/dL (7-18); BUN/Creat Ratio 21.6 RATIO (10-20); Calcium,Total 7.8 mg/dL (8.5-10.1); Chloride 99 mmol/L (98-107); Creatinine, Serum 0.46 mg/dL (0.70-1.30); EST Glomerular Filtration Rate 196 mL/min (>60); Est Glom Filt Rate - Afr Amer 237 mL/min (>60); Estimated Creatinine Clearance 299.66 ml/min; Glucose 124 mg/dL (74-106); Potassium 3.3 mmol/L (3.5-5.1); Sodium Level 137 mmol/L (136-145)
[2024-01-21] MEDS: Menthol/Lanolin/Calamine/Znox 113 GM Tube 1 APPLIC TOPICAL ×2 (10:42→22:53)
[2024-01-21] MEDS: Potassium Chloride Oral Tablet 20 MEQ 40 MEQ PO (10:42)
[2024-01-21] MEDS: Nystatin Powder 15gm Bottle 1 APPLIC TOPICAL ×2 (10:43→22:54)
[2024-01-21] MEDS: Nitrofurantoin Macrocrystals 100 MG Capsule PO ×2 (10:43→22:53)
[2024-01-21] MEDS: Furosemide 40 MG Tablet PO (10:43)
[2024-01-21] MEDS: Finasteride 5 MG Tablet PO ×2 (10:44)
[2024-01-21] MEDS: Tamsulosin HCl 0.4 MG Capsule PO ×2 (10:44)
[2024-01-21] MEDS: Metoprolol(XL)Succ 50 MG Tablet PO ×2 (10:46→22:53)
--- NOTE | 2024-01-21 11:10 | PCM.PN.HOSP ---
Reason for Visit Reason for Visit: Diagnoses Other chronic pain (01/16/24) Paroxysmal atrial fibrillation (01/16/24) Pain in right leg (01/16/24) Pain in left leg (01/16/24) Acute cystitis without hematuria (01/16/24) Difficulty in walking, not elsewhere classified (01/16/24) Weakness (01/16/24) Adult failure to thrive (01/16/24) Subjective Subjective No acute events overnight. Patient seen at bedside this morning. Laying comfortably in bed, conversing normally, in no acute distress. Remains fatigued this morning, similar to previous days. Does note that he feels slightly bloated today and has not had any bowel movements for the last few days. He otherwise denies any new concerns morning. Objective Data Objective Data Vital Signs: Vital Signs Temp Pulse Resp BP Pulse Ox O2 Del Method O2 Flow Rate 98.4 F 76 15 111/70 97 Nasal Cannula 2 01/20/24 21:50 01/21/24 10:46 01/20/24 22:00 01/21/24 10:46 01/21/24 08:11 01/21/24 08:11 01/21/24 08:11 Oxygen Flow Rate (L/min) 2 Oxygen Delivery Method Nasal Cannula Weight: 194.8 kg Body Mass Index (BMI) 55.1 Intake & Output: Intake and Output for Last 24 Hours 01/19/24 01/20/24 01/21/24 23:59 23:59 23:59 Intake Total 350 / 350 2100 / 2300 500 / 500 Output Total 2600 / 3200 2650 / 3450 1300 / 1300 Balance -2250 / -2850 -550 / -1150 -800 / -800 Lab / Micro Data 01/19/24 06:35 01/21/24 04:15 Labs: Laboratory Results - last 24 hr 01/21/24 04:15: Sodium 137, Potassium 3.3 L, Chloride 99, Carbon Dioxide 33.0 H, Anion Gap 5, BUN 10, Creatinine 0.46 L, Estim Creat Clear Calc 299.66, Est GFR (MDRD) Af Amer 237, Est GFR (MDRD) Non-Af 196, BUN/Creatinine Ratio 21.6 H, Glucose 124 H, Calcium 7.8 L Micro: Microbiology 01/16/24 11:37 Urine Catheter - [facility] Urine Culture - Final Escherichia coli Physical Exam Const alert, oriented x3 and no apparent distress Constitutional Narrative: Pleasant elderly male, morbidly obese, otherwise laying comfortably in bed, conversing normally, in no acute distress. General Appearance: cooperative and comfortable HEENT normocephalic, head/scalp atraumatic, hearing grossly normal bilaterally and nasal mucous membranes and turbinates normal Eyes PERRL, EOMs intact bilaterally and conjunctivae normal Neck full ROM Chest inspection of chest normal Resp normal respiratory effort, normal air movement, no use of accessory muscles and clear to auscultation bilaterally Cardio regular rate, regular rhythm, no murmurs and peripheral pulses 2+ throughout GI normal to inspection, nondistended, normoactive bowel sounds, soft to palpation, non-tender and non-distended Back/Spine normal ROM Extremity Extremity Narrative: Chronic bilateral lower extremity venous stasis changes with +1-2 nonpitting edema noted. No pain or tenderness to palpation bilaterally. Stable. Skin no rashes or lesions noted Neuro oriented x3 and moves all extremities Speech: speech normal Psych mental status grossly normal Assessment & Plan Assessment/Plan (1) Adult failure to thrive: (2) Weakness: (3) UTI (urinary tract infection): QUALIFIERS: Urinary tract infection type: acute cystitis Hematuria presence: without hematuria Qualified Code(s): N30.00 - Acute cystitis without hematuria (4) Chronic pain of both lower extremities: PLAN: Plan Patient is a 63-year-old male who presented [facility] ED on 01/16/2024 with worsening generalized weakness. 1. Adult failure to thrive with acute on chronic debility ? PT/OT/case management following. Lives at home alone with private help 7 days/week and help from sister at night. Has had increased difficulty with transferring from wheelchair to lift to bed and aids are not able to help with this. Suspected mild worsening of generalized weakness due to deconditioning. Medically ready for discharge on 01/17, awaiting SNF placement. 2. Chronic bilateral lower extremity edema and neuropathy, history of peripheral artery disease ? Patient reported worsening lower extremity pain over the past several weeks. However, ABG studies completed on 01/16 and appeared similar to previous. Continue home Lasix. Notably had significant side effects with gabapentin and Lyrica in the past. Treating with oxycodone 5 mg every 6 hours as needed for pain relief. Bowel regimen with scheduled senna and MiraLAX and suppositories as needed. Continue outpatient follow-up with neurology as needed. 3. Acute cystitis, history of urinary retention with intermittent self-catheterization ? UA on admit infectious appearing. No systemic signs of infection. Urine culture positive for 50-80K E. coli; unclear if resistant to ceftriaxone, is sensitive to cefepime but resistant to cefazolin. Treated with ceftriaxone on admit, transitioned to Macrobid on 01/18 with plan for 7-day course of Macrobid total, stop date 01/24. Maintain urinary catheter while hospitalized, can consider discontinuing on discharge with resuming intermittent self cath if patient desires. Chronic medical conditions: ? Morbid obesity: BMI 55 on admit. Complicates hospital course, care and prognosis. ? Paroxysmal A-fib on Xarelto: Normal sinus rhythm with PVCs on admit. Continue home Xarelto and Toprol. ? BPH with obstructive symptoms: Continue home tamsulosin and finasteride. ? Hypertension: Mild hypotension on admit suspected due to recent decreased p.o. intake. Holding home losartan, restart as needed. ? Insomnia: Continue home doxepin. DVT prophylaxis: Xarelto CODE STATUS: Full code, verified Expected disposition: SNF, medically ready on 01/17, awaiting placement Total clinical time spent by myself addressing the patient's medical issues, reviewing all the data, and collaborating with patient's care team: 35 minutes. Charges/Coding Visit Charges Inpatient E&M: 28229 Subs Hosp L2
[2024-01-21] MEDS: Senna Tablet 2 TABLET PO ×2 (15:04→22:53)
[2024-01-21] MEDS: Bisacodyl 10 MG Suppository RC (15:04)
[2024-01-21] MEDS: Polyethylene Glycol 3350 17 GM PACKET PO (15:04)
[2024-01-21] MEDS: Rivaroxaban 20 MG Tablet PO (16:39)
[2024-01-21] MEDS: DOXEPIN HCL 50 MG CAPSULE PO (22:53)
[2024-01-22] VITALS (8 sets, daily range): BP systolic 113–132; BP diastolic 70–82; PULSE 65–79; RESP 15–16; TEMP 36.4–36.8; O2SAT 92–100
[2024-01-22 07:05] LABS: Hematocrit 41.6 % (40-54); Hemoglobin 13.3 g/dL (13.0-16.5); Mean Corpuscular Hgb 32.3 pg (27.0-32.0); Platelet Count 212 K/mm3 (150-450); RBC Distribution Width CV 12.9 % (11.6-14.6); RBC Distribution Width SD 47.8 fl (35.1-43.9); Red Blood Count 4.12 M/mm3 (4.6-6.2); White Blood Count 6.1 K/mm3 (4.4-11.0)
[2024-01-22 07:30] LABS: Anion Gap 3 (5-15); BUN 9 mg/dL (7-18); BUN/Creat Ratio 18.4 RATIO (10-20); Chloride 103 mmol/L (98-107); Creatinine, Serum 0.49 mg/dL (0.70-1.30); EST Glomerular Filtration Rate 183 mL/min (>60); Est Glom Filt Rate - Afr Amer 222 mL/min (>60); Estimated Creatinine Clearance 281.31 ml/min; Glucose 109 mg/dL (74-106); Potassium 3.4 mmol/L (3.5-5.1); Sodium Level 139 mmol/L (136-145)
[2024-01-22] MEDS: oxyCODONE 5 MG Tablet PO ×3 (07:30→23:01)
[2024-01-22] MEDS: Furosemide 40 MG Tablet PO (07:31)
[2024-01-22] MEDS: Metoprolol(XL)Succ 50 MG Tablet PO ×2 (07:31→22:56)
[2024-01-22] MEDS: Nitrofurantoin Macrocrystals 100 MG Capsule PO ×2 (07:31→22:58)
[2024-01-22] MEDS: Polyethylene Glycol 3350 17 GM PACKET PO (07:32)
[2024-01-22] MEDS: Nystatin Powder 15gm Bottle 1 APPLIC TOPICAL ×2 (07:32→22:56)
[2024-01-22] MEDS: Senna Tablet 2 TABLET PO ×2 (07:32→22:57)
[2024-01-22] MEDS: Menthol/Lanolin/Calamine/Znox 113 GM Tube 1 APPLIC TOPICAL ×2 (07:32→22:57)
--- NOTE | 2024-01-22 07:58 | PN.HOSP_ITS ---
Reason for Visit Reason for Visit: Diagnoses Other chronic pain (01/16/24) Paroxysmal atrial fibrillation (01/16/24) Pain in right leg (01/16/24) Pain in left leg (01/16/24) Acute cystitis without hematuria (01/16/24) Difficulty in walking, not elsewhere classified (01/16/24) Weakness (01/16/24) Adult failure to thrive (01/16/24) Subjective Subjective Complains of RLE edema worse than the left, though it is getting better. Objective Data Objective Data Vital Signs: Vital Signs Temp Pulse Resp BP Pulse Ox O2 Del Method O2 Flow Rate 36.6 C 65 15 121/82 H 93 Nasal Cannula 2 01/22/24 04:00 01/22/24 07:31 01/22/24 04:00 01/22/24 04:00 01/22/24 07:05 01/22/24 07:05 01/22/24 07:05 FiO2 2 01/22/24 04:00 Oxygen Flow Rate (L/min) 2 Oxygen Delivery Method Nasal Cannula Weight: 194.8 kg Body Mass Index (BMI) 55.1 Intake & Output: Intake and Output for Last 24 Hours 01/20/24 01/21/24 01/22/24 23:59 23:59 23:59 Intake Total 2100 / 2300 1450 / 1450 Output Total 2650 / 3450 2750 / 3050 700 / 700 Balance -550 / -1150 -1300 / -1600 -700 / -700 Lab / Micro Data 01/22/24 06:04 01/22/24 06:04 Labs: Laboratory Results - last 24 hr 01/22/24 06:04: WBC 6.1, RBC 4.12 L, Hgb 13.3, Hct 41.6, MCV 101.0 H, MCH 32.3 H , MCHC 32.0, RDW Std Deviation 47.8 H, RDW Coeff of Tasha 12.9, Plt Count 212, MPV 10.0, Sodium 139, Potassium 3.4 L, Chloride 103, Carbon Dioxide 33.0 H, Anion Gap 3 L, BUN 9, Creatinine 0.49 L, Estim Creat Clear Calc 281.31, Est GFR (MDRD) Af Amer 222, Est GFR (MDRD) Non-Af 183, BUN/Creatinine Ratio 18.4, Glucose 109 H , Calcium 8.0 L Micro: Microbiology 01/16/24 11:37 Urine Catheter - [facility] Urine Culture - Final Escherichia coli Physical Exam Const alert and no apparent distress HEENT head/scalp atraumatic Resp normal respiratory effort and no retractions GI GI Narrative: obese. Extremity Extremity Narrative: bilateral non-pitting LE edema. Neuro Sensorium / Orientation: awake and alert Psych affect normal Assessment & Plan Assessment/Plan (1) Adult failure to thrive: (2) Weakness: (3) UTI (urinary tract infection): QUALIFIERS: Hematuria presence: without hematuria Urinary tract infection type: acute cystitis Qualified Code(s): N30.00 - Acute cystitis without hematuria (4) Chronic pain of both lower extremities: PLAN: Plan Adult failure to thrive with acute on chronic debility * Poor performance status at baseline: Lives at home alone with private help 7 days/week and help from sister at night. * Has had increased difficulty with transferring from wheelchair to lift to bed and aids are not able to help with this. * Plan for SNF. UTI, acute * UA on admit equivocal, but UCx showed 50-80k E. coli. On nitrofurantoin through 01/24. Chronic conditions: * Chronic bilateral lower extremity edema and neuropathy: Continue furosemide. Notably had significant side effects with gabapentin and Lyrica in the past. * Morbid obesity: BMI 55 on admit. * Paroxysmal A-fib Continue with rivaroxaban and metoprolol succinate. * BPH: Continue home tamsulosin and finasteride. * Hypertension: Mild hypotension on admit suspected due to recent decreased p.o. intake. Holding home losartan, restart as needed. * Insomnia: Continue home doxepin. DVT prophylaxis: not indicated as already anticoagulated. CODE STATUS: Full code, verified Expected disposition: SNF, medically ready on 01/17, awaiting placement Greater than 55 minutes of which greater than 50% time was discussed with the patient at bedside about his lower extremity edema, debility, waiting on insurance authorization for placement, and providing reassurance as he is upset about being weak as he has been through a very protracted episode prior where he broke his leg and was facility bound for about 1 year at that time. Charges/Coding Visit Charges Inpatient E&M: 11496 Subs Hosp L2
--- NOTE | 2024-01-22 13:57 | CASEMGMT ---
Addendum entered by Magui Whitten 01/22/24 15:32[facility] PIERRE Luna Addendum entered by Magui Whitten 01/22/24 14:02: Pt will be in room 50 and be ready to admit tomorrow afternoon PI[facility]RE [facility] an it will likely be tomorrow before it's received. Pt and physician updated. PIERRE Luna
--- NOTE | 2024-01-22 13:58 | CASEMGMT ---
Discharge Planning [facility] patient. They will need to order a yulisa bed and will be available tomorrow afternoon. SW updated. Padmaja Gonzales DC Planning Asst.
--- NOTE | 2024-01-22 15:27 | TREXTCAR_ITS ---
Diet Diet Order/Speech Therapy: 01/17/24 15:17 Diet: Regular - General Food consistency:: Regular Liquid Consistency:: Regular/Thin Is pt able to select menu?: Yes Wound(s) abd fold: Wound Type: open sore rt and left abd: Wound Type: open sores Therapies Physical Therapy: Eval and Treat Occupational Therapy: Eval and Treat Problem/Diagnosis (1) Adult failure to thrive: Status: Acute Code(s): R62.7 - Adult failure to thrive (2) Weakness: Status: Acute Code(s): R53.1 - Weakness (3) UTI (urinary tract infection): Status: Acute Code(s): N39.0 - Urinary tract infection, site not specified (4) Chronic pain of both lower extremities: Status: Chronic Code(s): M79.604 - Pain in right leg; M79.605 - Pain in left leg; G89.29 - Other chronic pain Plan Adult failure to thrive with acute on chronic debility * Poor performance status at baseline: Lives at home alone with private help 7 days/week and help from sister at night. * Has had increased difficulty with transferring from wheelchair to lift to bed and aids are not able to help with this. * Plan for SNF. UTI, acute * UA on admit equivocal, but UCx showed 50-80k E. coli. On nitrofurantoin through 01/24. Chronic conditions: * Chronic bilateral lower extremity edema and neuropathy: Continue furosemide. Notably had significant side effects with gabapentin and Lyrica in the past. * Morbid obesity: BMI 55 on admit. * Paroxysmal A-fib Normal sinus rhythm with PVCs on admit. Continue with rivaroxaban and metoprolol succinate. * BPH with obstructive symptoms: Continue home tamsulosin and finasteride. * Hypertension: Mild hypotension on admit suspected due to recent decreased p.o. intake. Holding home losartan, restart as needed. * Insomnia: Continue home doxepin. DVT prophylaxis: not indicated as already anticoagulated. CODE STATUS: Full code, verified Expected disposition: SNF, medically ready on 01/17, awaiting placement Allergies/Procedures Done in Hospital Allergies duloxetine (From Cymbalta) Allergy (Severe, Verified 01/16/24 11:24) Other SERATONIN SYNDROME Type of Care/Length of Stay Estimated LOS: Convalescent Care Less Than 30 days Type of Care Needed: Skilled Rehab Potential: Fair Prognosis: Good Additional Orders/Day of Discharge Day of Discharge: 01/23/24 Dietary and Speech Recommendations Dietitian Recommendations/Changes: RD will liberalize diet to Regular to optimize oral intakes due to recent poor PO intakes. Discharge Plan Admission Admit Date/Time: 01/16/24 15:16 Primary Reason for Your Visit: debility Attending Provider: Ankit Aguilar Primary Care Provider: Chalo Mclean [employer] Providers: Sunil Parker; Pérez Hoang Discharge Orders/Prescriptions Prescriptions: New calcium carbonate 200 mg calcium (500 mg) Tablet,Chewable 1,000 mg PO Q4H PRN PRN (Reason: DYSPEPSIA/INDIGESTION) Qty: 0 0RF metoprolol succinate 50 mg Tablet Extended Release 24 Hr 50 mg PO BID Qty: 0 0RF nitrofurantoin monohyd/m-cryst 100 mg Capsule 100 mg PO BID 3 Days Qty: 6 0RF oxycodone 5 mg Tablet 5 mg PO Q6H PRN PRN (Reason: Pain Score 6-10) 3 Days Qty: 12 0RF Continued Xarelto 20 mg tablet 20 mg PO DAILY Qty: 30 12RF Rx Instructions: must administer with evening meal albuterol sulfate 1 INHALER inhaler 2 puff INHALATION Q6H PRN PRN (Reason: Sob &/Or Wheezing) cyanocobalamin (vitamin B-12) 1,000 MCG/ML solution 1,000 mcg IM Q30D Patient Comments: GETS FIRST OF THE MONTH acetaminophen 325 MG tablet 650 mg PO Q6H PRN PRN (Reason: Pain Score 1-3/Temp > 100.7 F) 0RF tamsulosin 0.4 mg Capsule 0.4 mg PO DAILY finasteride 5 mg tablet 5 mg PO DAILY Patient Comments: TAKE 1 TABLET BY MOUTH EVERY DAY doxepin 50 mg capsule 50 mg PO QHS Patient Comments: TAKE 1 CAPSULE BY MOUTH AT BEDTIME furosemide [Lasix] 40 mg tablet 40 mg PO .COMPLEX Rx Instructions: 40 mg orally daily, may need to take an extra 40 mg d/t edema so please give 180 tablets; Discontinued alpha lymphatic acid 1 dose IV MONTHLY valsartan 80 mg tablet 80 mg PO DAILY Qty: 30 0RF metoprolol succinate 100 mg tablet extended release 24 hr 100 mg PO BID Qty: 60 11RF Referrals / Follow Up: Chalo Mclean Chi, MD [Primary Care Provider] - Within 2 Weeks Disposition Disposition (needs filled in before D/C Order can be placed): Intermediate Facility (3) UTI (urinary tract infection) Qualifiers: Urinary tract infection type: acute cystitis Hematuria presence: without hematuria Qualified Code(s): N30.00 - Acute cystitis without hematuria
--- NOTE | 2024-01-22 15:58 | CASEMGMT ---
Social Work- SW faxed the level of care. PASRR completed, med list and transfer summary acquired. PIERRE Luna
[2024-01-22] MEDS: Rivaroxaban 20 MG Tablet PO (16:31)
[2024-01-22] MEDS: DOXEPIN HCL 50 MG CAPSULE PO (22:56)
[2024-01-22] MEDS: Calcium Carbonate 500 MG Tablet 1000 MG PO (23:00)
[2024-01-22] MEDS: MELATONIN 3 MG TABLET PO (23:01)
[2024-01-23 05:35] VITALS: BP 105/60; PULSE 72; RESP 16; TEMP 36.9; O2SAT 95
[2024-01-23] MEDS: oxyCODONE 5 MG Tablet PO (05:44)
[2024-01-23 07:45] VITALS: BP 109/69; PULSE 72; RESP 16; TEMP 36.5; O2SAT 97
[2024-01-23 08:30] VITALS: O2SAT 94
[2024-01-23] MEDS: Senna Tablet 2 TABLET PO (08:37)
[2024-01-23] MEDS: Polyethylene Glycol 3350 17 GM PACKET PO (08:37)
[2024-01-23 08:38] VITALS: PULSE 72
[2024-01-23] MEDS: Nitrofurantoin Macrocrystals 100 MG Capsule PO (08:38)
[2024-01-23] MEDS: Tamsulosin HCl 0.4 MG Capsule PO (08:38)
[2024-01-23] MEDS: Finasteride 5 MG Tablet PO (08:38)
[2024-01-23] MEDS: Metoprolol(XL)Succ 50 MG Tablet PO (08:38)
[2024-01-23] MEDS: Furosemide 40 MG Tablet PO (08:38)
[2024-01-23] MEDS: Nystatin Powder 15gm Bottle 1 APPLIC TOPICAL (08:39)
[2024-01-23] MEDS: Menthol/Lanolin/Calamine/Znox 113 GM Tube 1 APPLIC TOPICAL (08:40)
[2024-01-23 11:50] VITALS: BP 120/72; PULSE 68; RESP 16; TEMP 36.8; O2SAT 98
--- NOTE | 2024-01-23 11:58 | DS.PCM_ITS ---
Providers Date of Admission: 01/16/24 Primary Care Physician: Dr. Chalo Mclean MD Reason For Visit: ACUTE CYSTITIS Diagnosis Discharge Diagnosis (1) Adult failure to thrive: Status: Acute Code(s): R62.7 - Adult failure to thrive (2) Weakness: Status: Acute Code(s): R53.1 - Weakness (3) UTI (urinary tract infection): Status: Acute Code(s): N39.0 - Urinary tract infection, site not specified Qualifiers: Urinary tract infection type: acute cystitis Hematuria presence: w ithout hematuria Qualified Code(s): N30.00 - Acute cystitis without hematuria (4) Chronic pain of both lower extremities: Status: Chronic Code(s): M79.604 - Pain in right leg; M79.605 - Pain in left leg; G89.29 - Other chronic pain Plan Adult failure to thrive with acute on chronic debility * Poor performance status at baseline: Lives at home alone with private help 7 days/week and help from sister at night. * Has had increased difficulty with transferring from wheelchair to lift to bed and aids are not able to help with this. * Plan for SNF. UTI, acute * UA on admit equivocal, but UCx showed 50-80k E. coli. On nitrofurantoin through 01/24. Chronic conditions: * Chronic bilateral lower extremity edema and neuropathy: Continue furosemide. Notably had significant side effects with gabapentin and Lyrica in the past. * Morbid obesity: BMI 55 on admit. * Paroxysmal A-fib Continue with rivaroxaban and metoprolol succinate. * BPH: Continue home tamsulosin and finasteride. * Hypertension: Mild hypotension on admit suspected due to recent decreased p.o. intake. Holding home losartan, restart as needed. * Insomnia: Continue home doxepin. DVT prophylaxis: not indicated as already anticoagulated. CODE STATUS: Full code, verified Expected disposition: SNF, medically ready on 01/17, awaiting placement Medications at Discharge Home Medications albuterol sulfate 90 mcg/actuation aerosol inhaler 2 puff inhalation Q6H PRN PRN Sob &/Or Wheezing 03/30/18 cyanocobalamin (vitamin B-12) 1,000 mcg/mL injection solution 1,000 mcg IM Q30D DEFICIENCY 05/28/18 acetaminophen 325 mg tablet 650 mg (2 x 325 mg) PO Q6H PRN PRN Pain Score 1- 3/Temp > 100.7 F 08/01/19 tamsulosin 0.4 mg capsule 0.4 mg PO DAILY bladder 04/09/21 rivaroxaban 20 mg tablet (Xarelto) 20 mg PO DAILY #30 tabs 12/27/22 doxepin 50 mg capsule 50 mg PO QHS mental health 01/26/23 finasteride 5 mg tablet 5 mg PO DAILY PROSTATE 01/26/23 furosemide 40 mg tablet (Lasix) 40 mg PO .COMPLEX diuretic 01/28/23 calcium carbonate 1,000 mg (5 x 200 mg calcium (500 mg)) PO Q4H PRN PRN DYSPEPSIA/INDIGESTION #0 tabs 01/22/24 metoprolol succinate 50 mg tablet,extended release 24 hr 50 mg PO BID #0 tabs 01/22/24 nitrofurantoin monohydrate/macrocrystals 100 mg capsule 100 mg PO BID 3 days #6 caps 01/22/24 oxycodone 5 mg tablet 5 mg PO Q6H PRN PRN Pain Score 6-10 3 days #12 tabs 01/22/24 Hospital Course Operations None Procedures None Physical Exam Const alert and no apparent distress Constitutional Narrative: No respiratory distress. No conversational dyspnea. In bariatric bed. Weight / BMI Weight Weight: 194.8 kg Body Mass Index (BMI) 55.1 ABG / Lab / Microbiology Data 01/22/24 06:04 01/22/24 06:04 Microbiology: Microbiology 01/16/24 11:37 Urine Catheter - Aldana Urine Culture - Final Escherichia coli D/C Instructions Discharge Diet: No restrictions Meaningful Use Info Meaningful Use Meaningful Use Diagnoses (Choose all that apply): None applicable Ischemic Stroke Statin Dosing Therapy Reference: STATIN DOSE THERAPY REFERENCE: * Patients > 75 years receive moderate or high dose statin therapy. * Patients 75 years or YOUNGER should receive HIGH intensity statin dose unless contraindicated. You will be required to document reason for non-treatment if statin daily dose does not meet guidelines. HIGH DOSE STATIN THERAPY DAILY Atorvastatin > than or = to 40 mg Rosuvastatin > than or = to 20 mg Amlodipine + Atorvastatin > than or = to 2.5/40 mg Ezetimibe + Simvastatin 10/80 mg Simvastatin 80mg Discharge Plan Admission Admit Date/Time: 01/16/24 15:16 Primary Reason for Your Visit: debility Attending Provider: Ankit Aguilar Primary Care Provider: Chalo Mclean [employer] Providers: Sunil Parker; Pérez Hoang Discharge Orders/Prescriptions Prescriptions: New calcium carbonate 200 mg calcium (500 mg) Tablet,Chewable 1,000 mg PO Q4H PRN PRN (Reason: DYSPEPSIA/INDIGESTION) Qty: 0 0RF metoprolol succinate 50 mg Tablet Extended Release 24 Hr 50 mg PO BID Qty: 0 0RF nitrofurantoin monohyd/m-cryst 100 mg Capsule 100 mg PO BID 3 Days Qty: 6 0RF oxycodone 5 mg Tablet 5 mg PO Q6H PRN PRN (Reason: Pain Score 6-10) 3 Days Qty: 12 0RF Continued Xarelto 20 mg tablet 20 mg PO DAILY Qty: 30 12RF Rx Instructions: must administer with evening meal albuterol sulfate 1 INHALER inhaler 2 puff INHALATION Q6H PRN PRN (Reason: Sob &/Or Wheezing) cyanocobalamin (vitamin B-12) 1,000 MCG/ML solution 1,000 mcg IM Q30D Patient Comments: GETS FIRST OF THE MONTH acetaminophen 325 MG tablet 650 mg PO Q6H PRN PRN (Reason: Pain Score 1-3/Temp > 100.7 F) 0RF tamsulosin 0.4 mg Capsule 0.4 mg PO DAILY finasteride 5 mg tablet 5 mg PO DAILY Patient Comments: TAKE 1 TABLET BY MOUTH EVERY DAY doxepin 50 mg capsule 50 mg PO QHS Patient Comments: TAKE 1 CAPSULE BY MOUTH AT BEDTIME furosemide [Lasix] 40 mg tablet 40 mg PO .COMPLEX Rx Instructions: 40 mg orally daily, may need to take an extra 40 mg d/t edema so please give 180 tablets; Discontinued alpha lymphatic acid 1 dose IV MONTHLY valsartan 80 mg tablet 80 mg PO DAILY Qty: 30 0RF metoprolol succinate 100 mg tablet extended release 24 hr 100 mg PO BID Qty: 60 11RF Referrals / Follow Up: Chalo Mclean Chi, MD [Primary Care Provider] - Within 2 Weeks Disposition Disposition (needs filled in before D/C Order can be placed): Alf Facility Charges/Coding Visit Charges Inpatient E&M: 42181 Disch Hosp
--- NOTE | 2024-01-23 12:14 | CASEMGMT ---
Discharge Planning Discharge orders, signed med list, and transport time sent to [facility] via [facility]. Physicians will transport patient by wheelchair at 1:30p. Nursing, SW, and patient updated. Patient to update family and caregiver. Padmaja Gonzales DC Planning Asst.
--- NOTE | 2024-01-23 14:21 | PHA.DC_ITS ---
[facility] has performed discharge medication reconciliation for this patient. The patient's discharge medication list was reviewed for discrepancies and discrepancies were resolved. Medications at Discharge Home Medications albuterol sulfate 90 mcg/actuation aerosol inhaler 2 puff inhalation Q6H PRN PRN Sob &/Or Wheezing 03/30/18 cyanocobalamin (vitamin B-12) 1,000 mcg/mL injection solution 1,000 mcg IM Q30D DEFICIENCY 05/28/18 acetaminophen 325 mg tablet 650 mg (2 x 325 mg) PO Q6H PRN PRN Pain Score 1- 3/Temp > 100.7 F 08/01/19 tamsulosin 0.4 mg capsule 0.4 mg PO DAILY bladder 04/09/21 rivaroxaban 20 mg tablet (Xarelto) 20 mg PO DAILY #30 tabs 12/27/22 doxepin 50 mg capsule 50 mg PO QHS mental health 01/26/23 finasteride 5 mg tablet 5 mg PO DAILY PROSTATE 01/26/23 furosemide 40 mg tablet (Lasix) 40 mg PO .COMPLEX diuretic 01/28/23 calcium carbonate 1,000 mg (5 x 200 mg calcium (500 mg)) PO Q4H PRN PRN DYSPEPSIA/INDIGESTION #0 tabs 01/22/24 metoprolol succinate 50 mg tablet,extended release 24 hr 50 mg PO BID #0 tabs 01/22/24 nitrofurantoin monohydrate/macrocrystals 100 mg capsule 100 mg PO BID 3 days #6 caps 01/22/24 oxycodone 5 mg tablet 5 mg PO Q6H PRN PRN Pain Score 6-10 3 days #12 tabs 01/22/24
== END 2024-01-23 14:31 | disposition skilled nursing facility (03) ==
LOC: ED 15:04 → MS3 15:49
PROVIDERS: Hospitalist; Admitting Provider Hospitalist; Emergency Provider Emergency Medicine; PCP Family Medicine Geriatric Medicine
DX: R62.7 Adult failure to thrive (principal); M06.9 Rheumatoid arthritis, unspecified; I48.0 Paroxysmal atrial fibrillation; I42.9 Cardiomyopathy, unspecified; E66.01 Morbid (severe) obesity due to excess calories; Z68.43 Body mass index [BMI] 50.0-59.9, adult; N30.00 Acute cystitis without hematuria; R53.1 Weakness; I10 Essential (primary) hypertension; Z87.891 Personal history of nicotine dependence; M79.605 Pain in left leg; M79.604 Pain in right leg; G89.29 Other chronic pain; N40.1 Benign prostatic hyperplasia with lower urinary tract symptoms; N13.8 Other obstructive and reflux uropathy; Z86.14 Personal history of Methicillin resistant Staphylococcus aureus infection; K21.9 Gastro-esophageal reflux disease without esophagitis; Z79.899 Other long term (current) drug therapy; Z79.01 Long term (current) use of anticoagulants; Z98.84 Bariatric surgery status; G47.00 Insomnia, unspecified; R09.89 Other specified symptoms and signs involving the circulatory and respiratory systems
CPT/HCPCS: 36415; 70450; 71045; 74176; 80048; 81001; 82306; 83735; 84443; 85025; 85027; 87077; 87086; 87088; 87186; 93005; 93922; 96361; 96365; 96366; 96375; 96376; 97162; 97166; 97530; 97802; 99221; 99285; 99406; J7030; J7120; A4216; G0378; J0696; J2405

== ENCOUNTER → 2024-05-02 | Outpatient (CLI) | payer MEDICAID, SELFPAY ==
[2024-05-02 11:23] LABS: Absolute Lymphocyte Count 1.31 X10^3/uL (0.83-4.51); Absolute Neutrophil Count 5.7 X10^3/uL (2.0-7.7); Basophil# 0.03 X10^3/uL; Basophil% 0.4 % (0-1); Eosinophil# 0.17 X10^3/uL; Eosinophils% 2.2 % (0-5); Hematocrit 43.7 % (40-54); Hemoglobin 13.8 g/dL (13.0-16.5); Lymphocyte # 1.31 X10^3/ul (0.83-4.51); Lymphocyte % 17.2 % (19-41); Mean Corp Hgb Conc 31.6 g/dL (32-36); Mean Corpuscular Hgb 28.7 pg (27.0-32.0); Mean Corpuscular Volume 90.9 fL (80-94); Mean Platelet Vol. 10.2 fl (6.2-12.0); Monocyte% 5.2 % (0-10); NRBC Flagged by Analyzer 0 % (0-5); Neutrophil # 5.67 X10^3/uL (2.7-7.7); Neutrophil % 74.5 % (47-70); Platelet Count 313 K/mm3 (150-450); RBC Distribution Width CV 13.4 % (11.6-14.6); RBC Distribution Width SD 44.7 fl (35.1-43.9); Red Blood Count 4.81 M/mm3 (4.6-6.2); White Blood Count 7.6 K/mm3 (4.4-11.0)
[2024-05-02 11:56] LABS: ALB/GLOB Ratio 0.6 RATIO (0.9-2.4); AST(SGOT) 18 U/L (15-37); Alanine Aminotransfer ALT/SGPT 11 U/L (16-61); Albumin, Serum 2.7 g/dL (3.2-5.0); Alkaline Phosphatase 170 U/L (45-117); Anion Gap 9 (5-15); BUN 6 mg/dL (7-18); BUN/Creat Ratio 7.9 RATIO (10-20); Calcium,Total 8.3 mg/dL (8.5-10.1); Chloride 100 mmol/L (98-107); Cholesterol 149 mg/dL (200); Creatinine, Serum 0.76 mg/dL (0.70-1.30); EST Glomerular Filtration Rate 111 mL/min (>60); Est Glom Filt Rate - Afr Amer 134 mL/min (>60); Globulin 4.5 g/dL (2.2-4.2); Glucose 148 mg/dL (74-106); High Density Lipoprotein 37 mg/dL; Potassium 4.4 mmol/L (3.5-5.1); Protein, Total 7.2 g/dL (6.4-8.2); Sodium Level 138 mmol/L (136-145); Triglycerides 93 mg/dL; Very Low Density Lipoprotein 19 mg/dL (5-40)
[2024-05-02 12:49] LABS: PSA,Total - Annual Screen < 0.01 ng/mL (0.00-4.00)
== END | disposition home or self-care (01) ==
LOC: POLAB3 10:53
PROVIDERS: PCP Family Medicine Geriatric Medicine; Visit Provider Family Medicine Geriatric Medicine
DX: I10 Essential (primary) hypertension (principal); E78.5 Hyperlipidemia, unspecified; M10.9 Gout, unspecified; Z12.5 Encounter for screening for malignant neoplasm of prostate
CPT/HCPCS: 84153; 36415; 80053; 80061; 84443; 84550; 85025; G0103

== ENCOUNTER → 2024-05-08 | Outpatient (CLI) | payer MEDICAID, SELFPAY ==
[2024-05-08 12:43] LABS: Color, Urine Yellow (Yellow); Glucose, Dipstick Normal (Normal); Ketone-Dipstick Negative (Negative); Leukocyte Esterase-Dipstick 500 /ul (Negative); Nitrite-Dipstick Positive (Negative); Occult Blood-Urine Negative /ul (Negative); Protein-Dipstick Negative (Negative); Urine Bilirubin Dipstick Negative (Negative); Urine Clarity Clear (Clear); Urine Urobilinogen 1 mg/dl (Normal)
== END | disposition home or self-care (01) ==
LOC: LABSPEC 11:42
PROVIDERS: PCP Family Medicine Geriatric Medicine; Referring Provider Family Medicine Geriatric Medicine; Visit Provider Family Medicine Geriatric Medicine
DX: N39.0 Urinary tract infection, site not specified (principal)
CPT/HCPCS: 81002; 87077; 87086; 87088; 87186

== ENCOUNTER 2024-08-23 11:26 | Inpatient (IN) | payer MEDICAID, SELFPAY ==
--- NOTE | 2024-08-22 12:17 | EKG12_ITS ---
Test Reason : Blood Pressure : */* mmHG Vent. Rate : 83 BPM Atrial Rate : * BPM P-R Int : * ms QRS Dur : 92 ms QT Int : 360 ms P-R-T Axes : * -64 37 degrees QTcB Int : 423 ms Possible Normal Sinus Rhythm with baseline artifact Left axis deviation Low voltage QRS Cannot rule out Inferior wall HI Abnormal ECG Confirmed by Issac Alba ([id number]), script editor MEHUL JIMENEZ ([id number]) on 08/27/2024 6:04:56 AM Referred By: LEISA Confirmed By: Issac Alba
[2024-08-23] VITALS (20 sets, daily range): BP systolic 105–138; BP diastolic 64–100; PULSE 112–137; RESP 13–25; TEMP 36.6–36.9; O2SAT 90–100; BMI 54.1; BMI 53.8
--- NOTE | 2024-08-23 12:05 | EKG12_ITS ---
Test Reason : Blood Pressure : */* mmHG Vent. Rate : 138 BPM Atrial Rate : 138 BPM P-R Int : 104 ms QRS Dur : 86 ms QT Int : 316 ms P-R-T Axes : 86 -71 92 degrees QTcB Int : 478 ms Atrial flutter with 2 to 1 block Left axis deviation Low voltage QRS Inferior infarct , age undetermined Possible Anterolateral infarct , age undetermined Abnormal ECG When compared with ECG of 23-Aug-2024 12:17, MANUAL COMPARISON REQUIRED DATA IS UNCONFIRMED Confirmed by DESI BLOOM, ИВАН ([id number]), editorial writer MEHUL JIMENEZ ([id number]) on 08/26/2024 10:00:19 AM Referred By: Confirmed By: ИВАН WEEKS MD
[2024-08-23] MEDS: 0.9% Normal Saline (1000mL) 1,000 ML 999 ML IV ×2 (12:09→13:10)
--- NOTE | 2024-08-23 12:09 | EX.ED.DYSGE1 ---
HPI <NATALIE Preston - Last Filed: 08/23/24 13:24> History of Present Illness Chief Complaint: Weakness Narrative Narrative: 64-year-old male with past medical history of HTN, A-fib, morbid obesity presents with generalized weakness. He states he has had cough and congestion over the last 1 to 2 weeks. He said intermittent fever and chills. He had issues with his lift chair breaking and he states he became weak and has not gotten out of his chair x 1 week. He has a home health aide who comes every day for about 4 hours. He states she has left water and food for him to drink and changes his depends. He realized today he is not going to be able to stand up and called EMS. He denies chest pain or shortness of breath. He has chronic yeast infection over his bottom that he states is a lot worse since he has not been getting up. [facility] <NATALIE Preston - Last Filed: 08/23/24 13:24> [facility] Medical History (Updated 08/23/24 @ 13:[address] Juan Miguel Courtney MD) Chronic pain of both lower extremities Atrial fibrillation Weakness Alcohol abuse Rheumatoid arthritis GERD (gastroesophageal reflux disease) Asthma Restless legs syndrome Acute hyponatremia Internal impingement of right shoulder Right shoulder pain MRSA infection PTSD (post-traumatic stress disorder) Thyroid disease DVT (deep venous thrombosis) Back pain Syncope Blackout History of ulceration Sleep apnea CPAP (continuous positive airway pressure) dependence Bladder disease Dysphagia Urine retention Dysuria Wears glasses Wears dentures Anxiety Alcohol use Marijuana use Uses wheelchair Walker as ambulation aid Ambulates with cane Gout Arthritis Prostate disease Anemia Easy bruising Excessive bleeding History of hiatal hernia Urinary incontinence Gastric reflux Shortness of breath on exertion Former smoker Leg cramps History of edema History of rheumatic fever History of atrial fibrillation History of stress test History of Holter monitoring History of echocardiogram Cardiology follow-up encounter Ventricular ectopy Cardiomyopathy Paroxysmal atrial fibrillation Paroxysmal ventricular tachycardia HTN (hypertension) Cardiomyopathy Atrial fibrillation with rapid ventricular response Atrial fibrillation Debility CHI (closed head injury) Chronic atrial fibrillation Traumatic injury to skin or subcutaneous tissue History of DVT (deep vein thrombosis) Essential hypertension Atrial flutter History of sepsis Abdominal wall pain Left fibular fracture Rheumatic fever Morbid obesity Chronic pain BPH (benign prostatic hyperplasia) ADD (attention deficit disorder) Neuropathy Depression Calcium deficiency Vitamin B12 deficiency Fibromyalgia Home Medications ?Medication ?Instructions ?Recorded ?Last Taken ?Type albuterol sulfate 90 mcg/actuation 2 puff inhalation Q6H PRN PRN Sob 03/30/18 2 Weeks Ago History aerosol inhaler &/Or Wheezing ~01/12/23 cyanocobalamin (vitamin B-12) 1,000 mcg IM Q30D DEFICIENCY 05/28/18 1 Month Ago History 1,000 mcg/mL injection solution ~12/26/22 acetaminophen 325 mg tablet 650 mg (2 x 325 mg) PO Q6H PRN PRN 08/01/19 Unknown Rx Pain Score 1-3/Temp > 100.7 F tamsulosin 0.4 mg capsule 0.4 mg PO DAILY bladder 04/09/21 01/25/23 History rivaroxaban 20 mg tablet (Xarelto) 20 mg PO DAILY #30 tabs 12/27/22 01/25/23 Rx doxepin 50 mg capsule 50 mg PO QHS mental health 01/26/23 Unknown History finasteride 5 mg tablet 5 mg PO DAILY PROSTATE 01/26/23 01/25/23 History furosemide 40 mg tablet (Lasix) 40 mg PO .COMPLEX diuretic 01/28/23 01/25/23 History calcium carbonate 1,000 mg (5 x 200 mg calcium (500 01/22/24 Unknown Rx mg)) PO Q4H PRN PRN DYSPEPSIA/INDIGESTION #0 tabs nitrofurantoin 100 mg PO BID 3 days #6 caps 01/22/24 Unknown Rx monohydrate/macrocrystals 100 mg capsule oxycodone 5 mg tablet 5 mg PO Q6H PRN PRN Pain Score 01/22/24 Unknown Rx 6-10 3 days #12 tabs metoprolol succinate 50 mg 50 mg PO BID #180 tabs 07/23/24 Unknown Rx tablet,extended release 24 hr Allergy/AdvReac Type Severity Reaction Status Date / Time duloxetine (From Cymbalta) Allergy Severe Other Verified 08/23/24 11:29 Family History Mother Diabetes Thyroid disorder Father Diabetes Heart disease CABG x5 in his 50s COPD (chronic obstructive pulmonary disease) Hypertension Other Arthritis Lupus Surgical History History of cardiac catheterization History of hand surgery History of esophagogastroduodenoscopy (EGD) History of cardioversion (~08/10/21) History of left heart catheterization (04/30/21) History of hernia repair Status post removal of thyroid nodule H/O gastric bypass Social History Smoking Status: Former smoker how long ago did patient quit smokin years ago second hand exposure: No alcohol intake: current alcohol intake frequency: a few times a week details: 4-6 cans (12 oz) of beer a couple times per week substance use type: marijuana caffeine: No what type of physical activity do you participate in: none frequency: decline to answer khloe/restorationism: Adventism seatbelt use: never ROS <NATALIE Preston - Last Filed: 08/23/24 13:24> ROS ED ROS Narrative Constitutional: Positive for fever, chills, malaise. CVS: Negative for chest pain, syncope. Respiratory: Positive for cough. Negative for shortness of breath. GI: Negative for abdominal pain, nausea, vomiting, diarrhea. : Negative for dysuria. EXAM <NATALIE Preston - Last Filed: 08/23/24 13:24> Physical Exam Narrative Exam Narrative: CONST: Patient with rigors appears calm sitting in bed. EYES: Normal inspection. ENT: Normal inspection, dry mucous membranes. NECK: Normal inspection. RESP: No respiratory distress, lung sounds limited by body habitus. CVS: Tachycardic with regular rhythm, no murmur, no gallop. ABD: Soft and nontender, no guarding or rebound, nondistended. SKIN: Extensive erythematous moist candidal infection across his back and buttocks. I do not see any obvious open wounds. EXTREMITIES: Normal appearance, no pedal edema. NEURO: Alert and answering questions appropriately. PSYCH: Normal affect. Const Vital Signs: 08/23/24 11:27 08/23/24 11:30 08/23/24 12:12 Temperature 98.1 F Temperature Source Oral Pulse Rate 135 H Respiratory Rate 20 H Respiratory Effort Normal Non-Labored Respiratory Pattern Normal Blood Pressure 135/100 H Blood Pressure Mean 111 Pulse Ox 94 100 Oxygen Delivery Method Room Air Room Air 08/23/24 13:18 08/23/24 13:19 Temperature 98 F 97.9 F Temperature Source Oral Pulse Rate 136 H 133 H Respiratory Rate 16 20 H Respiratory Effort Respiratory Pattern Blood Pressure 128/98 H 138/98 H Blood Pressure Mean 108 111 Pulse Ox 100 98 Oxygen Delivery Method Room Air <Dr. Juan Miguel Courtney MD - Last Filed: 08/23/24 13:23> Physical Exam Const Vital Signs: 08/23/24 11:27 08/23/24 11:30 08/23/24 12:12 Temperature 98.1 F Temperature Source Oral Pulse Rate 135 H Respiratory Rate 20 H Respiratory Effort Normal Non-Labored Respiratory Pattern Normal Blood Pressure 135/100 H Blood Pressure Mean 111 Pulse Ox 94 100 Oxygen Delivery Method Room Air Room Air 08/23/24 13:18 08/23/24 13:19 Temperature 98 F 97.9 F Temperature Source Oral Pulse Rate 136 H 133 H Respiratory Rate 16 20 H Respiratory Effort Respiratory Pattern Blood Pressure 128/98 H 138/98 H Blood Pressure Mean 108 111 Pulse Ox 100 98 Oxygen Delivery Method Room Air MDM <NATALIE Preston - Last Filed: 08/23/24 13:24> [facility] MDM Narrative Medical decision making narrative: Differential: General debility, electrolyte derangement, ALIA, pneumonia, UTI 64-year-old male with morbid obesity has had recent upper respiratory symptoms and 1 week of generalized weakness and inability to get out of his lift chair. He appears nontoxic. He is tachycardic in the 130s with otherwise stable vital signs. Exam is notable for dry mucous membranes and a significant yeast infection across his bottom since he has not been able to stand up. Labs show normal white count of 8.7, lactate 5.6, normal renal function and normal CK. Urinalysis is positive for UTI. His prior urine cultures had multiple different bacterium. I sent a culture and treated with Rocephin as well as IV fluids for tachycardia and dehydration. I discussed the case with the hospitalist for admission. Lab Data Attestation: I reviewed the patient's lab results. Labs: Laboratory Results - last 24 hr 08/23/24 08/23/24 08/23/24 11:38 12:13 12:39 WBC 8.7 RBC 5.37 Hgb 15.5 Hct 48.0 MCV 89.4 MCH 28.9 MCHC 32.3 RDW Std Deviation 57.7 H RDW Coeff of Tasha 17.9 H Plt Count 265 MPV 10.6 Immature Gran % (Auto) 0.300 Neut % (Auto) 79.9 H Lymph % (Auto) 10.9 L [place] % (Auto) 6.8 Eos % (Auto) 1.4 Baso % (Auto) 0.7 Absolute Neuts (auto) 7.0 Absolute Lymphs (auto) 0.95 Nucleated RBC % 0 PT 15.8 H INR 1.2 APTT 29.5 Sodium 132 L Potassium 4.7 Chloride 92 L Carbon Dioxide 30.0 Anion Gap 9 BUN 6 L Creatinine 0.82 Estim Creat Clear Calc 164.22 Est GFR (MDRD) Af Amer 123 Est GFR (MDRD) Non-Af 101 BUN/Creatinine Ratio 7.4 L Glucose 165 H Lactic Acid 5.6 H* Calcium 8.2 L Total Bilirubin 1.10 H AST 34 ALT 11 L Alkaline Phosphatase 208 H Total Creatine Kinase 48 Total Protein 7.7 Albumin 2.4 L Globulin 5.3 H Albumin/Globulin Ratio 0.5 L Urine Color Yellow Urine Clarity Sl. Cloudy Urine pH 6.0 Ur Specific [place] 1.015 Urine Protein 30 H Urine Glucose (UA) Normal Urine Ketones 5 H Urine Occult Blood 150 H Urine Nitrite Positive H Urine Bilirubin 1 H Urine Urobilinogen 8 H Ur Leukocyte Esterase 500 H Urine RBC 0 SEEN Urine WBC 25-50 SEEN Ur Squamous Epith Cells 0-5 SEEN Urine Bacteria 2+ Urine Mucus 0 SEEN Radiography Diagnostic Testing: Clinical Impression(s) from Imaging Studies Chest X-Ray 08/23/24 12:10 IMPRESSION: No radiographic evidence of acute cardiopulmonary disease. Electronically Signed: Marquise Lozada MD at 12:47 EST , EKG Initial EKG: Attestation: I personally reviewed and interpreted this EKG as follows: Interpretation: No Acute Injury Pattern and Sinus Tachycardia Comments: Sinus tachycardia at 138 bpm Left axis deviation No STEMI <Dr. Juan Miguel Courtney MD - Last Filed: 08/23/24 13:23> [facility] Lab Data Labs: Laboratory Results - last 24 hr 08/23/24 08/23/24 08/23/24 11:38 12:13 12:39 WBC 8.7 RBC 5.37 Hgb 15.5 Hct 48.0 MCV 89.4 MCH 28.9 MCHC 32.3 RDW Std Deviation 57.7 H RDW Coeff of Tasha 17.9 H Plt Count 265 MPV 10.6 Immature Gran % (Auto) 0.300 Neut % (Auto) 79.9 H Lymph % (Auto) 10.9 L [place] % (Auto) 6.8 Eos % (Auto) 1.4 Baso % (Auto) 0.7 Absolute Neuts (auto) 7.0 Absolute Lymphs (auto) 0.95 Nucleated RBC % 0 PT 15.8 H INR 1.2 APTT 29.5 Sodium 132 L Potassium 4.7 Chloride 92 L Carbon Dioxide 30.0 Anion Gap 9 BUN 6 L Creatinine 0.82 Estim Creat Clear Calc 164.22 Est GFR (MDRD) Af Amer 123 Est GFR (MDRD) Non-Af 101 BUN/Creatinine Ratio 7.4 L Glucose 165 H Lactic Acid 5.6 H* Calcium 8.2 L Total Bilirubin 1.10 H AST 34 ALT 11 L Alkaline Phosphatase 208 H Total Creatine Kinase 48 Total Protein 7.7 Albumin 2.4 L Globulin 5.3 H Albumin/Globulin Ratio 0.5 L Urine Color Yellow Urine Clarity Sl. Cloudy Urine pH 6.0 Ur Specific [place] 1.015 Urine Protein 30 H Urine Glucose (UA) Normal Urine Ketones 5 H Urine Occult Blood 150 H Urine Nitrite Positive H Urine Bilirubin 1 H Urine Urobilinogen 8 H Ur Leukocyte Esterase 500 H Urine RBC 0 SEEN Urine WBC 25-50 SEEN Ur Squamous Epith Cells 0-5 SEEN Urine Bacteria 2+ Urine Mucus 0 SEEN Radiography Diagnostic Testing: Clinical Impression(s) from Imaging Studies Chest X-Ray 08/23/24 12:10 IMPRESSION: No radiographic evidence of acute cardiopulmonary disease. Electronically Signed: Marquise Lozada MD at 12:47 EST , Management Discussion w/another healthcare provider: Hospitalist Treatment and Re-Evaluation Comments:: I have personally performed a face to face assessment of the patient and have reviewed the SPENCER Note. I performed a substantive portion of the visit including all aspects of the following. My denton findings include: History is progressively worsening generalized weakness for about a week to the point where now he cannot stand. Lives at home by himself, uses a [employer] lift due to his size, and has a home health aide. States he was trapped in his wheelchair for 3 days recently and now has had a lot of seeping and sweating in his low back and buttocks. He has had a cough no dyspnea no fevers or chills. Exam is morbidly obese. Entire physical exam is relatively limited as a result. Lungs are clear to auscultation, no respiratory distress, abdomen soft nontender nondistended. Apparent yeast infection low back and buttocks. It is seeping. Medical Decison Making resting tachycardia of 135, therefore patient getting septic workup. I reviewed the results as well as the x-ray which I interpreted as negative for pneumonia, 1 view. His urine is positive. IV antibiotics given, fluids given, cultures obtained discussed with hospitalist. He does not meet criteria for sepsis at this time. I agree with PCU admission. Other additions or changes: [None] Discharge Plan Dx/Rx/DC Orders Clinical Impression: Complicated urinary tract infection, Unable to ambulate, Generalized weakness, Candidal skin infection, Dehydration, Debility Disposition Disposition: Acute Care Hospital [facility]
--- NOTE | 2024-08-23 12:10 | RAD_ITS ---
INDICATION: cough EXAMINATION/TECHNIQUE: X-RAY - XR Chest 1 View COMPARISON: Prior study dated: 01/16/2024 FINDINGS: LINES/DEVICES: None. LUNGS: No consolidation, edema or effusion. No pneumothorax. MEDIASTINUM AND CARDIOVASCULAR STRUCTURES: Aeration of the right hemidiaphragm. No focal infiltrate is seen. No evidence of pleural effusions. BONES AND SOFT TISSUES: Unremarkable. RAD/Chest 1 View (Portable) IMPRESSION: No radiographic evidence of acute cardiopulmonary disease. Electronically Signed: Marquise Lozada MD at 12:47 EST ,
[2024-08-23 12:37] LABS: International Normalized Ratio 1.2; Prothrombin Time (Protime)PT. 15.8 SECONDS (11.7-14.9)
[2024-08-23 12:39] LABS: Partial Thromboplast Time 29.5 Seconds (24.1-36.2)
[2024-08-23 12:42] LABS: Mucous, Urine 0 SEEN /hpf (<or=2+); Red Blood Cells-Urine 0 SEEN /hpf (0-5)
[2024-08-23 12:45] LABS: Color, Urine Yellow (Yellow); Glucose, Dipstick Normal (Normal); Ketone-Dipstick 5 mg/dl (Negative); Leukocyte Esterase-Dipstick 500 /ul (Negative); Nitrite-Dipstick Positive (Negative); Occult Blood-Urine 150 /ul (Negative); Protein-Dipstick 30 mg/dl (Negative); Specific Gravity, Urine 1.015 (1.002-1.030); Urine Clarity Sl. Cloudy (Clear); Urine Urobilinogen 8 mg/dl (Normal)
[2024-08-23 12:46] LABS: Urine Bilirubin Dipstick 1 mg/dL (Negative)
[2024-08-23 12:50] LABS: Absolute Lymphocyte Count 0.95 X10^3/uL (0.83-4.51); Basophil# 0.06 X10^3/uL; Basophil% 0.7 % (0-1); Eosinophil# 0.12 X10^3/uL; Eosinophils% 1.4 % (0-5); Hemoglobin 15.5 g/dL (13.0-16.5); Lymphocyte # 0.95 X10^3/ul (0.83-4.51); Lymphocyte % 10.9 % (19-41); Mean Corp Hgb Conc 32.3 g/dL (32-36); Mean Corpuscular Hgb 28.9 pg (27.0-32.0); Mean Corpuscular Volume 89.4 fL (80-94); Mean Platelet Vol. 10.6 fl (6.2-12.0); Monocyte# 0.59 X10^3/uL; Monocyte% 6.8 % (0-10); NRBC Flagged by Analyzer 0 % (0-5); Neutrophil # 6.98 X10^3/uL (2.7-7.7); Neutrophil % 79.9 % (47-70); Platelet Count 265 K/mm3 (150-450); RBC Distribution Width CV 17.9 % (11.6-14.6); RBC Distribution Width SD 57.7 fl (35.1-43.9); Red Blood Count 5.37 M/mm3 (4.6-6.2); White Blood Count 8.7 K/mm3 (4.4-11.0)
[2024-08-23 12:51] LABS: Bacteria 2+ /hpf (None Seen)
[2024-08-23 12:52] LABS: Squamous Epithelial Cells - UA 0-5 SEEN /hpf (0-5); White Blood Cells 25-50 SEEN /hpf (0-5)
[2024-08-23 12:56] LABS: Lactic Acid 5.6 mmol/L (0.4-1.9)
[2024-08-23 13:01] LABS: ALB/GLOB Ratio 0.5 RATIO (0.9-2.4); AST(SGOT) 34 U/L (15-37); Alanine Aminotransfer ALT/SGPT 11 U/L (16-61); Albumin, Serum 2.4 g/dL (3.2-5.0); Alkaline Phosphatase 208 U/L (45-117); Anion Gap 9 (5-15); BUN 6 mg/dL (7-18); BUN/Creat Ratio 7.4 RATIO (10-20); CPK Total, Creatine Kinase 48 U/L (39-308); Calcium,Total 8.2 mg/dL (8.5-10.1); Chloride 92 mmol/L (98-107); Creatinine, Serum 0.82 mg/dL (0.70-1.30); EST Glomerular Filtration Rate 101 mL/min (>60); Est Glom Filt Rate - Afr Amer 123 mL/min (>60); Estimated Creatinine Clearance 164.22 ml/min; Globulin 5.3 g/dL (2.2-4.2); Glucose 165 mg/dL (74-106); Potassium 4.7 mmol/L (3.5-5.1); Protein, Total 7.7 g/dL (6.4-8.2); Sodium Level 132 mmol/L (136-145)
[2024-08-23] MEDS: Ceftriaxone 1 GM/50 ML BAG IV (13:10)
--- NOTE | 2024-08-23 13:12 | HP.PCM.HOS_ITS ---
HPI - General General Date of Admission: 08/23/24 Date of Service: 08/23/24 Chief Complaint: shortness of breath HPI Narrative CARLIN SMITH, is a 64 M with a PMH as outlined who presents via the ED on 08/23/2024 with a complaint of weakness as well as cough and congestion for 1-2 weeks prior to admission. He had associated fever and chills intermittently. He said his lift chair at home had not been functioning well. He has an aide at home who helps him operate his lift. He said the lift broke and so he has not been able to move around. He has not gotten out of his chair in about a week, and says his aide left out food and water for him. He said he had gotten weaker and weaker so he came in to the ED. He denied any fever, chills, cough, chest pain, palpitations, dizziness, nausea, vomiting or any other symptoms. Review of systems is otherwise negative. Vitals in [facility] ED were temp of 98.1F, IA of 135, BP of 135/100 and RR of 20. He was saturating at 100% on room air. CBC showed Hb of 15.5, wbc of 8.7 and platelets of 265. INR is 1.2. Chemistry showed sodium of 132, potassium of 4.7 and anion gap of 9. Cr as 0.82. Lactic acid was 5.6 and total bilirubin was 1.1. ALP was slightly elevated at 208 and ALT was 11 with AST of 34. CPK was only 48. Urinalysis did show evidence of UTI with positive nitrite and elevated leukocyte esterase as well as 2+ bacteria. COVID, influenza and RSV were negative. He was also noted to have an extensive yeast infection on his abdomen. He has been admitted to be managed for debility and weakness in the setting of morbid obesity as well as UTI and yeast infection. He was also noted to be in atrial flutter with RVR. [facility] Medical History Chronic pain of both lower extremities Alcohol abuse Rheumatoid arthritis GERD (gastroesophageal reflux disease) Asthma Restless legs syndrome Atrial fibrillation Weakness Acute hyponatremia Internal impingement of right shoulder Right shoulder pain MRSA infection PTSD (post-traumatic stress disorder) Thyroid disease DVT (deep venous thrombosis) Back pain Syncope Blackout History of ulceration Sleep apnea CPAP (continuous positive airway pressure) dependence Bladder disease Dysphagia Urine retention Dysuria Wears glasses Wears dentures Anxiety Alcohol use Marijuana use Uses wheelchair Walker as ambulation aid Ambulates with cane Gout Arthritis Prostate disease Anemia Easy bruising Excessive bleeding History of hiatal hernia Urinary incontinence Gastric reflux Shortness of breath on exertion Former smoker Leg cramps History of edema History of rheumatic fever History of atrial fibrillation History of stress test History of Holter monitoring History of echocardiogram Cardiology follow-up encounter Ventricular ectopy Cardiomyopathy Paroxysmal atrial fibrillation Paroxysmal ventricular tachycardia HTN (hypertension) Cardiomyopathy Atrial fibrillation with rapid ventricular response Atrial fibrillation Debility CHI (closed head injury) Chronic atrial fibrillation Traumatic injury to skin or subcutaneous tissue History of DVT (deep vein thrombosis) Essential hypertension Atrial flutter History of sepsis Abdominal wall pain Left fibular fracture Rheumatic fever Morbid obesity Chronic pain BPH (benign prostatic hyperplasia) ADD (attention deficit disorder) Neuropathy Depression Calcium deficiency Vitamin B12 deficiency Fibromyalgia Home Medications ?Medication ?Instructions ?Recorded ?Last Taken ?Type albuterol sulfate 90 mcg/actuation 2 puff inhalation Q6H PRN PRN Sob 03/30/18 08/22/24 History aerosol inhaler &/Or Wheezing cyanocobalamin (vitamin B-12) 1,000 mcg IM Q30D DEFICIENCY 05/28/18 07/21/24 History 1,000 mcg/mL injection solution acetaminophen 325 mg tablet 650 mg (2 x 325 mg) PO Q6H PRN PRN 08/01/19 Unknown Rx Pain Score 1-3/Temp > 100.7 F tamsulosin 0.4 mg capsule 0.4 mg PO DAILY bladder 04/09/21 08/22/24 History doxepin 50 mg capsule 50 mg PO QHS sleep 01/26/23 08/22/24 History finasteride 5 mg tablet 5 mg PO DAILY PROSTATE 01/26/23 08/22/24 History furosemide 40 mg tablet (Lasix) 40 mg PO .COMPLEX diuretic 01/28/23 08/22/24 History calcium carbonate 1,000 mg (5 x 200 mg calcium (500 01/22/24 08/22/24 Rx mg)) PO Q4H PRN PRN DYSPEPSIA/INDIGESTION #0 tabs metoprolol succinate 50 mg 50 mg PO BID heart #180 tabs 07/23/24 08/23/24 Rx tablet,extended release 24 hr amitriptyline 25 mg tablet 25 mg PO DAILY sleep 08/23/24 08/22/24 History rivaroxaban 20 mg tablet (Xarelto) 20 mg PO Q3D afib 08/23/24 08/22/24 History sulfamethoxazole 400 1 tab PO DAILY prophylaxis uti 08/23/24 08/22/24 History mg-trimethoprim 80 mg tablet terbinafine HCl 1 % topical cream 1 applic topical DAILY athletes 08/23/24 08/23/24 History (Athlete's Foot (terbinafine)) foot Allergy/AdvReac Type Severity Reaction Status Date / Time duloxetine (From Cymbalta) Allergy Severe Other Verified 08/23/24 11:29 Family History (Updated 08/23/24 @ 15:05 by Sandhya Katz) Mother Diabetes Thyroid disorder Father Diabetes Heart disease CABG x5 in his 50s COPD (chronic obstructive pulmonary disease) Hypertension Pulmonary fibrosis Other Arthritis Lupus Surgical History History of cardiac catheterization History of hand surgery History of esophagogastroduodenoscopy (EGD) History of cardioversion (~08/10/21) History of left heart catheterization (04/30/21) History of hernia repair Status post removal of thyroid nodule H/O gastric bypass Social History Smoking Status: Former smoker how long ago did patient quit smokin years ago second hand exposure: No alcohol intake: current alcohol intake frequency: a few times a week details: 4-6 cans (12 oz) of beer a couple times per week substance use type: marijuana caffeine: No what type of physical activity do you participate in: none frequency: decline to answer khloe/evangelical: Orthodoxy seatbelt use: never ROS Constitutional Constitutional: Reports fatigue, malaise and weakness; Denies anorexia, chills or fever(s) Eyes Eyes: Denies change in vision ENT HEENT: Denies dysphagia, headache(s), sinus pressure or sore throat Cardiovascular Cardiovascular: Denies dyspnea on exertion, edema, lightheadedness, orthopnea, palpitations, paroxysmal nocturnal dyspnea, rapid heart rate or syncope Respiratory/Chest Respiratory/Chest: Denies cough, dyspnea, productive cough, shortness of breath at rest or shortness of breath with exertion Gastrointestinal Gastrointestinal: Denies abdominal pain, constipation, diarrhea, dyspepsia, nausea or vomiting Genitourinary Genitourinary: Denies burning urination or difficulty urinating Musculoskeletal Musculoskeletal: Reports arthralgias Neurologic Neurologic: Denies confusion, dizziness, focal weakness, headache(s), numbness or seizures Psychiatric Psychiatric: Denies anxiety or depression Endocrine Endocrinology: Denies change in body appearance Vital Signs Vital Signs Vital Signs: 08/23/24 11:27 08/23/24 11:30 08/23/24 12:12 Temperature 98.1 F Temperature Source Oral Pulse Rate 135 H Respiratory Rate 20 H Respiratory Effort Normal Non-Labored Respiratory Pattern Normal Blood Pressure 135/100 H Blood Pressure Mean 111 Pulse Ox 94 100 Oxygen Delivery Method Room Air Room Air Weight Weight: 422 lb 2.963 oz Body Mass Index (BMI) 54.1 Physical Exam Const alert, oriented x3 and no apparent distress Constitutional Narrative: super morbid obesity General Appearance: cooperative HEENT normocephalic, hearing grossly normal bilaterally, moist oral mucous membranes and oropharynx normal Mouth: oral and palatal mucosa normal Neck no lymphadenopathy, supple and no JVD Resp normal respiratory effort, no retractions, no use of accessory muscles and clear to auscultation bilaterally Cardio S1 normal heart sound, S2 normal heart sound and no murmurs Cardio Narrative: atrial flutter with RVR GI normal to inspection, nondistended, normoactive bowel sounds, soft to palpation, non-tender and non-distended GI Narrative: morbidly obese abdomen Extremity normal to inspection, full ROM and no clubbing, cyanosis or edema Neuro oriented x3, CN's II-XII intact bilaterally, moves all extremities and no focal motor deficits Motor Exam: strength 5/5 throughout Psych affect normal Results Lab / Micro Data 08/23/24 12:13 08/23/24 12:13 Labs: Laboratory Results - last 24 hr 08/23/24 11:38: Lactic Acid 5.6 H* 08/23/24 12:13: WBC 8.7, RBC 5.37, Hgb 15.5, Hct 48.0, MCV 89.4, MCH 28.9, MCHC 32.3, RDW Std Deviation 57.7 H, RDW Coeff of Tasha 17.9 H, Plt Count 265, MPV 10.6, Immature Gran % (Auto) 0.300, Neut % (Auto) 79.9 H, Lymph % (Auto) 10.9 L, [place] % (Auto) 6.8, Eos % (Auto) 1.4, Baso % (Auto) 0.7, Absolute Neuts (auto) 7.0, Absolute Lymphs (auto) 0.95, Nucleated RBC % 0, PT 15.8 H, INR 1.2, APTT 29.5, Sodium 132 L, Potassium 4.7, Chloride 92 L, Carbon Dioxide 30.0, Anion Gap 9, BUN 6 L, Creatinine 0.82, Estim Creat Clear Calc 164.22, Est GFR (MDRD) Af Amer 123, Est GFR (MDRD) Non-Af 101, BUN/Creatinine Ratio 7.4 L, Glucose 165 H, Calcium 8.2 L, Total Bilirubin 1.10 H, AST 34, ALT 11 L, Alkaline Phosphatase 208 H, Total Creatine Kinase 48, Total Protein 7.7, Albumin 2.4 L, Globulin 5.3 H, Albumin/Globulin Ratio 0.5 L 08/23/24 12:39: Urine Color Yellow, Urine Clarity Sl. Cloudy, Urine pH 6.0, Ur Specific Hunter 1.015, Urine Protein 30 H, Urine Glucose (UA) Normal, Urine Ketones 5 H, Urine Occult Blood 150 H, Urine Nitrite Positive H, Urine Bilirubin 1 H, Urine Urobilinogen 8 H, Ur Leukocyte Esterase 500 H, Urine RBC 0 SEEN, Urine WBC 25-50 SEEN, Ur Squamous Epith Cells 0-5 SEEN, Urine Bacteria 2+, Urine Mucus 0 SEEN Imaging Radiology Impression Chest X-Ray 08/23/24 12:10 IMPRESSION: No radiographic evidence of acute cardiopulmonary disease. Electronically Signed: Marquise Lozada MD at 12:47 EST , Assessment & Plan Assessment/Plan (1) Candidal skin infection: (2) Dehydration: (3) Generalized weakness: (4) Unable to ambulate: (5) Complicated urinary tract infection: (6) Adult failure to thrive: PLAN: Plan #Atrial flutter with RVR * Patient was tachycardic on admission with heart rate in the 130s. It did not respond to fluids. * EKG showed a sinus tachycardia but I discussed this with the physician support coordinator on- call who thought it was atrial flutter with 2-1 block * Patient has known A-fib. And believe this atrial flutter with RVR has been driven by the underlying UTI * Give amiodarone bolus and started on amiodarone drip. * Hold home metoprolol. On Xarelto. Will continue. * Last echo was in 2021 and showed EF of 65% with no evidence of diastolic dysfunction * Will get 2D echo * Additionally patient is on Xarelto. As prescribed daily but patient states he takes it every 3 days because he bleeds too much. In light of patient's A-fib with RVR though he states he took metoprolol this morning I think it is reasonable to get a CT of the chest rule out a PE. Patient is super morbidly obese and was also stuck in his chair for about a week because his Tong chair lift broke. He is therefore at high risk for PE and I do think it is prudent to rule this out. #Sepsis due to UTI * WBC is not elevated. He does have evidence of UTI and he also has lactic acidosis as well as tachycardia as well as SIRS criteria 2 out of 3 with clear source of infection being the urine * Previous urine cultures from April 2024 grew ESBL Klebsiella. Based on previous cultures we will switch to IV Zosyn * Blood and urine cultures ordered * #Lactic acidosis: * Lactic acid elevated at 5.6. * Will hydrate with IV fluids and trend lactic acid. * Expect will improve with hydration as is likely due to the infection and dehydration #Debility and weakness with failure to thrive * Patient states he was stuck in his Tong lift for several days because he broke. He is unable to ambulate on his own and has severe perennial candidiasis because of this. * patient has adult failure to thrive; he lives at home by himself and has a home health aide come in for ~ 4 hours everyday. He is unable to care for himself. * he may benefit from placement * PT/OT consult. * fall precautions #DARLIN: on CPAP qhs. #Super morbid obesity * BMI is 53.9. He says he had Nieves en Y many years ago and says he lost >200 pounds which he has kept off * complicates acute care, expected recovery and prognosis # BPH: On Flomax DVT prophylaxis: on xarelto COde status: full code * Patient counseled extensively about different types of CODE STATUS including full code, DNR CCA and DNR CCA. * Patient elects to be full code. * Total [id number] time 16 minutes. Charges/Coding Visit Charges Inpatient E&M: 23558 Init Hosp L3 Procedures Hospitalists Procedures: 05687 Advncd Care Plan 30 Min
--- NOTE | 2024-08-23 13:59 | CASEMGMT ---
Care Management Face to Face with patient for initial transition planning/care coordination assessment in the ED. This machine sign writer introduced self and role at [facility]. Patient lying in bed, alert and oriented. Patient willing to participate in assessment and is able to answer all questions appropriately. Care providers, pharmacy, and demographics verified. Admitting Diagnosis: UTI Other diagnosis history: a-fib, GERD, asthma PCP: Dr. Mclean Specialists: [facility] Preferred Pharmacy: [facility] [place] Insurance: Medicaid Prescription Benefit: yes Living Will/HPOA: none; declines wanting further information on it. LNOK: Mom and Sister. Patient states a desire to add patient?s mother to chart contacts, but declined wanting to get the information from patient?s phone in the ED. Living Arrangements: first floor apartment with a ramp outside; 1 step to enter home Transportation: when able to stand, patient?s aide Mariama drives patient in Mariama?s truck. Otherwise, patient requires an ambulance. DME: manual wheelchair, electric wheelchair, motorized scooter, bedside commode, grab bars, shower chair in a tub (that patient cannot use due to not being able to lift legs over the tub), CPAP, blood pressure cuff, pulse ox. HHC: patient reports only ever having Mariama as patient?s physician primary care sports medicine through an independent provider. Mariama comes to patient?s home 7 days a week, 830a-1230p. SNF/Rehab: [facility], [facility], [facility] Community Resources: [employer] and food stamps Behavioral Health History: patient reports having severe depression and some anxiety. Patient reports past counseling at [facility] and taking medication in the past. Patient reports not wanting further counseling resources at this time; patient states a desire to talk to Dr. Mclean about getting some PRN medication for patient?s anxiety. Patient goals: Patient wishes to discharge home, but patient understands the need for rehab given patient?s current state of not being able to stand. Patient is open to what is suggested. Disposition Plan: admission to acute; RN CM/SW to follow for discharge planning needs that may arise. Annabella Weber, EXHAUST MACHINE OPERATOR, CREDIT PROFESSIONAL
[2024-08-23] MEDS: 0.9% Normal Saline (1000mL) 1,000 ML 125 ML IV ×2 (15:26→23:27)
--- NOTE | 2024-08-23 15:40 | EKG12_ITS ---
Test Reason : ARRYTH Blood Pressure : */* mmHG Vent. Rate : 138 BPM Atrial Rate : * BPM P-R Int : * ms QRS Dur : 90 ms QT Int : 300 ms P-R-T Axes : * -70 91 degrees QTcB Int : 454 ms Supraventricular tachycardia Left axis deviation Low voltage QRS Inferior infarct (cited on or before 03-Jun-2022) Possible Anterolateral infarct (cited on or before 26-Jan-2023) Abnormal ECG Baseline artifact Confirmed by Issac Alba ([id number]), editorial project manager MEHUL JIMENEZ ([id number]) on 08/27/2024 6:05:11 AM Referred By: Confirmed By: Issac Alba
[2024-08-23] MEDS: Piperacil/Tazobactam 3.375 GM in 0.9% Normal Saline (50mL MB+) 50 ML IV ×2 (16:15→22:14)
[2024-08-23 16:16] LABS: Reflex Lactate? Y
[2024-08-23] MEDS: Acetaminophen 325 MG Tablet 650 MG PO ×2 (16:20→22:21)
[2024-08-23] MEDS: Menthol/Lanolin/Calamine/Znox 113 GM Tube 1 APPLIC TOPICAL ×2 (16:21→22:18)
[2024-08-23] MEDS: Nystatin Powder 15gm Bottle 1 APPLIC TOPICAL ×2 (16:21→22:19)
[2024-08-23] MEDS: oxyCODONE 5 MG Tablet PO ×2 (16:21→20:21)
--- NOTE | 2024-08-23 16:42 | CT_ITS ---
STUDY: CTA CHEST REASON FOR EXAM: Male, 64 years old. embolism RADIATION DOSAGE (If Supplied By Facility): CTDIvol = ( 49.35 ) mGy, DLP = ( 759.75 ) mGycm TECHNIQUE: The examination was performed with the intravenous administration of IV 100mL Isovue-370. Post-processing of the angiographic images was performed, with multiplanar reformation and 3D reconstruction. The protocol utilizes one or more of the following dose reduction techniques: automated exposure control, adjustment of mA and/or kV according to patient size,and/or use of iterative reconstruction technique. COMPARISON: FINDINGS: Normal enhancement of the main pulmonary artery and right and left pulmonary arteries. Normal enhancement of the bilateral peripheral pulmonary arteries. There is no demonstrated pulmonary embolism. Normal thoracic aorta and visualized great vessels. There is no demonstrated aortic dissection. Normal heart and pericardium. Normal mediastinum. Normal hilar regions. Normal visualized trachea and bronchi. The lungs are well expanded. Normal pulmonary parenchyma. Normal pleura. Normal chest wall structures. Normal osseous structures. Normal visualized upper abdomen. CT/CTA Chest W/WO Contrast IMPRESSION: No demonstrated pulmonary embolism or arterial dissection. Electronically Signed: Catarino Restrepo DO at 18:44 [facility] Reading Location ID and State: [facility] / [place] Tel [phone], Service support ,
[2024-08-23 17:19] LABS: Lactic Acid 2.6 mmol/L (0.4-1.9)
[2024-08-23] MEDS: Amiodarone 150 MG in Dextrose 5%-Water (100mL Bag) 100 ML 600 MG IV BOLUS (17:34)
[2024-08-23] MEDS: Amiodarone 360 MG in Dextrose 5% Viaflo Bag 192.8 ML 33.3 MG CONT INF (17:50)
[2024-08-23 19:51] LABS: Magnesium 1.7 mg/dL (1.6-2.6); Troponin-I HS 16 pg/mL (3.0-78.0)
[2024-08-23 21:51] LABS: Troponin-I HS 17 pg/mL (3.0-78.0)
[2024-08-23] MEDS: Metoprolol(XL)Succ 50 MG Tablet PO (22:20)
[2024-08-23] MEDS: DOXEPIN HCL 50 MG CAPSULE PO (22:21)
[2024-08-23] MEDS: Morphine 2 MG/ML Syringe IV (22:53)
[2024-08-23] MEDS: 0.9% Saline Lock 10 ML Syringe IV (22:54)
[2024-08-23] MEDS: Amiodarone 360 MG in Dextrose 5% Viaflo Bag 192.8 ML 16.7 MG CONT INF (23:51)
[2024-08-24] VITALS (22 sets, daily range): BP systolic 93–119; BP diastolic 60–99; PULSE 72–121; RESP 13–19; TEMP 36.3–36.8; O2SAT 95–100
[2024-08-24 01:55] LABS: Troponin-I HS 18 pg/mL (3.0-78.0)
[2024-08-24] MEDS: Piperacil/Tazobactam 3.375 GM in 0.9% Normal Saline (50mL MB+) 50 ML IV ×3 (05:36→20:04)
[2024-08-24 05:52] LABS: Absolute Lymphocyte Count 1.47 X10^3/uL (0.83-4.51); Absolute Neutrophil Count 4.5 X10^3/uL (2.0-7.7); Basophil# 0.03 X10^3/uL; Basophil% 0.4 % (0-1); Eosinophil# 0.29 X10^3/uL; Eosinophils% 4.1 % (0-5); Hematocrit 38.6 % (40-54); Hemoglobin 12.4 g/dL (13.0-16.5); Lymphocyte # 1.47 X10^3/ul (0.83-4.51); Mean Corp Hgb Conc 32.1 g/dL (32-36); Mean Corpuscular Hgb 28.4 pg (27.0-32.0); Mean Corpuscular Volume 88.5 fL (80-94); NRBC Flagged by Analyzer 0 % (0-5); Neutrophil # 4.48 X10^3/uL (2.7-7.7); Neutrophil % 64.2 % (47-70); Platelet Count 220 K/mm3 (150-450); RBC Distribution Width CV 17.5 % (11.6-14.6); RBC Distribution Width SD 57.2 fl (35.1-43.9); Red Blood Count 4.36 M/mm3 (4.6-6.2)
[2024-08-24 06:11] LABS: ALB/GLOB Ratio 0.5 RATIO (0.9-2.4); AST(SGOT) 17 U/L (15-37); Alanine Aminotransfer ALT/SGPT 11 U/L (16-61); Albumin, Serum 1.8 g/dL (3.2-5.0); Alkaline Phosphatase 149 U/L (45-117); Anion Gap 4 (5-15); BUN 7 mg/dL (7-18); BUN/Creat Ratio 14.6 RATIO (10-20); Calcium,Total 7.5 mg/dL (8.5-10.1); Chloride 100 mmol/L (98-107); Creatinine, Serum 0.48 mg/dL (0.70-1.30); EST Glomerular Filtration Rate 187 mL/min (>60); Est Glom Filt Rate - Afr Amer 226 mL/min (>60); Estimated Creatinine Clearance 279.66 ml/min; Globulin 3.9 g/dL (2.2-4.2); Glucose 141 mg/dL (74-106); Protein, Total 5.7 g/dL (6.4-8.2); Sodium Level 135 mmol/L (136-145)
[2024-08-24 08:48] LABS: BNP,B-Type NATRIURETIC PEPTIDE 70.1 pg/mL (0-100)
[2024-08-24] MEDS: Potassium Chloride Oral Tablet 20 MEQ 60 MEQ PO (09:24)
[2024-08-24] MEDS: oxyCODONE 5 MG Tablet PO ×3 (09:41→20:04)
[2024-08-24] MEDS: Metoprolol(XL)Succ 50 MG Tablet PO ×2 (09:42→20:07)
--- NOTE | 2024-08-24 09:42 | CASEMGMT ---
Social Work SW met w/pt in room in regard to discharge plan. Pt informed SW he has aide services 7 days per week, 4 hours per day, through an independent provider and this is usually enough. He states Lori Bennett is his CM through [employer]. (SW called and left a message letting Lori know pt is here). Pt may be agreeable to SNF, states he has had trouble getting up out of his lift chair for the last week. His aide, who he has known for 35 years, is putting an extension on her home and the plan will be eventually for pt to return to her home. SW provided to pt a list of senior living facilities from [facility], in network w/pt's insurance, in pt's preferred geographic area and complete w/quality and resource use management. [facility] consider [facility], won't return to [facility]. Pt states just left [facility] in April. SW explained will have SW Monday follow up w/him for definite choices and will make referral at that time. SW will continue to follow. ROSI Roche
[2024-08-24] MEDS: Tamsulosin HCl 0.4 MG Capsule PO (09:44)
[2024-08-24] MEDS: Finasteride 5 MG Tablet PO (09:44)
[2024-08-24] MEDS: Amitriptyline 25 MG Tablet PO (11:50)
[2024-08-24] MEDS: Acetaminophen 325 MG Tablet 650 MG PO (11:56)
[2024-08-24] MEDS: Menthol/Lanolin/Calamine/Znox 113 GM Tube 1 APPLIC TOPICAL ×2 (11:56→20:08)
[2024-08-24] MEDS: Nystatin Powder 15gm Bottle 1 APPLIC TOPICAL ×2 (11:57→20:02)
--- NOTE | 2024-08-24 13:42 | PN_ITS ---
Subjective Subjective Patient seen and examined. He had no complaints and felt a bit better today. His heart rate is improving. He is still on the amiodarone drip. Review of systems otherwise negative. He was on 4 L at time of review. Objective Data Objective Data Vital Signs: Vital Signs Temp Pulse Resp BP Pulse Ox O2 Del Method O2 Flow Rate 98.2 F 95 13 103/67 95 Nasal Cannula 4 08/24/24 06:34 08/24/24 10:00 08/24/24 08:00 08/24/24 10:00 08/24/24 10:00 08/24/24 10:15 08/24/24 10:15 Oxygen Flow Rate (L/min) 4 Oxygen Delivery Method Nasal Cannula Weight: 419 lb 15.689 oz Body Mass Index (BMI) 53.8 Intake & Output: Intake and Output for Last 24 Hours 08/22/24 08/23/24 08/24/24 23:59 23:59 23:59 Intake Total 3903.00 / 4145.51 2402.90 / 2402.90 Output Total 1450 / 1450 Balance 3903.00 / 4145.51 952.90 / 952.90 Lab / Micro Data 08/24/24 04:59 08/24/24 04:59 Labs: Laboratory Results - last 24 hr 08/23/24 16:30: Lactic Acid 2.6 H* 08/23/24 19:19: Magnesium 1.7, Troponin I High Sens 16 08/23/24 21:25: Troponin I High Sens 17 08/24/24 01:31: Troponin I High Sens 18 08/24/24 04:59: WBC 7.0, RBC 4.36 L, Hgb 12.4 L, Hct 38.6 L, MCV 88.5, MCH 28.4, MCHC 32.1, RDW Std Deviation 57.2 H, RDW Coeff of Tasha 17.5 H, Plt Count 220, MPV 10.0, Immature Gran % (Auto) 0.300, Neut % (Auto) 64.2, Lymph % (Auto) 21.0, Loving % (Auto) 10.0, Eos % (Auto) 4.1, Baso % (Auto) 0.4, Absolute Neuts (auto) 4.5, Absolute Lymphs (auto) 1.47, Nucleated RBC % 0, Sodium 135 L, Potassium 3.0 L, Chloride 100, Carbon Dioxide 32.0, Anion Gap 4 L, BUN 7, Creatinine 0.48 L, Estim Creat Clear Calc 279.66, Est GFR (MDRD) Af Amer 226, Est GFR (MDRD) Non-Af 187, BUN/Creatinine Ratio 14.6, Glucose 141 H, Calcium 7.5 L, Total Bilirubin 0.60, AST 17, ALT 11 L, Alkaline Phosphatase 149 H, B-Natriuretic Peptide 70.1, Total Protein 5.7 L, Albumin 1.8 L, Globulin 3.9, Albumin/Globulin Ratio 0.5 L Micro: Microbiology 08/23/24 12:39 Urine Catheter - Catheter Urine Culture - Preliminary GNR lactose certified nurses' aide 08/23/24 12:25 Mucosa - Nose SARS-CoV-2, Influenza & RSV (PCR) - Final Radiography Diagnostic Testing: Radiology Impression Chest CTA 08/23/24 16:42 IMPRESSION: No demonstrated pulmonary embolism or arterial dissection. Electronically Signed: Catarino Restrepo DO at 18:44 EST Reading Location ID and State: [facility] / [place] Tel [phone], Service support , Physical Exam Const alert, oriented x3 and no apparent distress Constitutional Narrative: super morbid obesity General Appearance: cooperative HEENT normocephalic, hearing grossly normal bilaterally, moist oral mucous membranes and oropharynx normal Neck no lymphadenopathy, supple and no JVD Resp normal respiratory effort, no retractions, no use of accessory muscles and clear to auscultation bilaterally Resp Narrative: On 4 L of oxygen by nasal cannula which he said he overnight in lieu of his CPAP Cardio regular rate, regular rhythm, S1 normal heart sound, S2 normal heart sound and no murmurs Cardio Narrative: now in normal sinus rhythm GI normal to inspection, nondistended, normoactive bowel sounds, soft to palpation, non-tender and non-distended GI Narrative: morbidly obese abdomen Extremity normal to inspection, full ROM, normal capillary refill and no clubbing, cyanosis or edema Neuro oriented x3, CN's II-XII intact bilaterally, moves all extremities and no focal motor deficits Motor Exam: strength 5/5 throughout Psych thought process normal, cooperative and affect normal Appearance: appropriate Assessment & Plan Assessment/Plan (1) Candidal skin infection: (2) Dehydration: (3) Generalized weakness: (4) Unable to ambulate: (5) Complicated urinary tract infection: (6) Adult failure to thrive: PLAN: Plan #Atrial flutter with RVR * Heart rate now better controlled. In normal sinus rhythm. On amiodarone drip * 2D echo ordered and pending. Resume home metoprolol and wean off of amiodarone drip * Continue Xarelto. Counseled on compliance with Xarelto. * CT of the chest was negative for any evidence of PE. * * #Sepsis due to UTI * On IV Zosyn. Urine cultures pending. Blood cultures also pending. * #Hypokalemia: Potassium is 3. Will replace and trend. #Lactic acidosis: * Improved with hydration. Will monitor. #Debility and weakness with failure to thrive * Patient states he was stuck in his Tong lift for several days because he broke. He is unable to ambulate on his own and has severe perennial candidiasis because of this. * patient has adult failure to thrive; he lives at home by himself and has a home health aide come in for ~ 4 hours everyday. He is unable to care for himself. * he may benefit from placement * PT/OT consult. * fall precautions #DARLIN: on CPAP qhs. #Super morbid obesity * complicates acute care, expected recovery and prognosis # BPH: On Flomax DVT prophylaxis: on xarelto COde status: full code * Charges/Coding Visit Charges Inpatient E&M: 75631 Subs Hosp L2
[2024-08-24] MEDS: 0.9% Saline Lock 10 ML Syringe IV ×2 (14:59→23:05)
[2024-08-24] MEDS: Rivaroxaban 20 MG Tablet PO (17:58)
[2024-08-24] MEDS: DOXEPIN HCL 50 MG CAPSULE PO (20:07)
[2024-08-24] MEDS: Morphine 2 MG/ML Syringe IV (23:05)
[2024-08-25] VITALS (9 sets, daily range): BP systolic 101–106; BP diastolic 61–76; PULSE 68–95; RESP 16–18; TEMP 36.2–36.9; O2SAT 95–98
[2024-08-25] MEDS: Morphine 2 MG/ML Syringe IV (02:24)
[2024-08-25] MEDS: 0.9% Saline Lock 10 ML Syringe IV ×2 (02:24→22:32)
[2024-08-25] MEDS: Piperacil/Tazobactam 3.375 GM in 0.9% Normal Saline (50mL MB+) 50 ML IV ×3 (05:16→22:31)
[2024-08-25] MEDS: Nystatin Powder 15gm Bottle 1 APPLIC TOPICAL ×3 (05:16→22:30)
[2024-08-25] MEDS: Menthol/Lanolin/Calamine/Znox 113 GM Tube 1 APPLIC TOPICAL ×3 (05:16→22:31)
[2024-08-25 05:28] LABS: Absolute Lymphocyte Count 1.26 X10^3/uL (0.83-4.51); Absolute Neutrophil Count 3.9 X10^3/uL (2.0-7.7); Basophil# 0.03 X10^3/uL; Basophil% 0.5 % (0-1); Eosinophil# 0.26 X10^3/uL; Eosinophils% 4.3 % (0-5); Hematocrit 40.6 % (40-54); Hemoglobin 12.6 g/dL (13.0-16.5); Lymphocyte # 1.26 X10^3/ul (0.83-4.51); Lymphocyte % 20.8 % (19-41); Mean Corpuscular Hgb 28.6 pg (27.0-32.0); Mean Corpuscular Volume 92.1 fL (80-94); Mean Platelet Vol. 10.3 fl (6.2-12.0); Monocyte# 0.56 X10^3/uL; Monocyte% 9.2 % (0-10); NRBC Flagged by Analyzer 0 % (0-5); Neutrophil # 3.93 X10^3/uL (2.7-7.7); Neutrophil % 64.9 % (47-70); Platelet Count 251 K/mm3 (150-450); RBC Distribution Width CV 17.6 % (11.6-14.6); Red Blood Count 4.41 M/mm3 (4.6-6.2); White Blood Count 6.1 K/mm3 (4.4-11.0)
[2024-08-25 06:12] LABS: ALB/GLOB Ratio 0.4 RATIO (0.9-2.4); AST(SGOT) 15 U/L (15-37); Alanine Aminotransfer ALT/SGPT 11 U/L (16-61); Albumin, Serum 1.8 g/dL (3.2-5.0); Alkaline Phosphatase 134 U/L (45-117); Anion Gap 3 (5-15); BUN 7 mg/dL (7-18); BUN/Creat Ratio 15.7 RATIO (10-20); Chloride 100 mmol/L (98-107); Creatinine, Serum 0.44 mg/dL (0.70-1.30); EST Glomerular Filtration Rate 204 mL/min (>60); Est Glom Filt Rate - Afr Amer 247 mL/min (>60); Estimated Creatinine Clearance 305.08 ml/min; Globulin 4.1 g/dL (2.2-4.2); Glucose 114 mg/dL (74-106); Potassium 3.9 mmol/L (3.5-5.1); Protein, Total 5.9 g/dL (6.4-8.2); Sodium Level 137 mmol/L (136-145)
[2024-08-25] MEDS: Metoprolol(XL)Succ 50 MG Tablet PO ×2 (11:10→22:31)
[2024-08-25] MEDS: oxyCODONE 5 MG Tablet PO ×3 (11:10→22:36)
[2024-08-25] MEDS: Finasteride 5 MG Tablet PO (11:11)
[2024-08-25] MEDS: Amitriptyline 25 MG Tablet PO (11:11)
[2024-08-25] MEDS: Tamsulosin HCl 0.4 MG Capsule PO (11:11)
--- NOTE | 2024-08-25 11:57 | PN_ITS ---
Subjective Subjective Patient seen and examined. He complains of pain in his lower back fall skin peeling of due to excoriations. He has no other complaints. Review of systems otherwise negative. Objective Data Objective Data Vital Signs: Vital Signs Temp Pulse Resp BP Pulse Ox O2 Del Method O2 Flow Rate 98.4 F 92 17 101/73 96 Nasal Cannula 2 08/25/24 08:30 08/25/24 11:10 08/25/24 08:30 08/25/24 08:30 08/25/24 08:30 08/25/24 08:48 08/25/24 08:48 Oxygen Flow Rate (L/min) 2 Oxygen Delivery Method Nasal Cannula Weight: 419 lb 15.689 oz Body Mass Index (BMI) 53.8 Intake & Output: Intake and Output for Last 24 Hours 08/23/24 08/24/24 08/25/24 23:59 23:59 23:59 Intake Total 3903.00 / 4145.51 3472.90 / 3472.90 100 / 100 Output Total 3200 / 3200 700 / 700 Balance 3903.00 / 4145.51 272.90 / 272.90 -600 / -600 Lab / Micro Data 08/25/24 04:20 08/25/24 04:20 Labs: Laboratory Results - last 24 hr 08/25/24 04:20: WBC 6.1, RBC 4.41 L, Hgb 12.6 L, Hct 40.6, MCV 92.1, MCH 28.6, M CHC 31.0 L, RDW Std Deviation 60.0 H, RDW Coeff of Tasha 17.6 H, Plt Count 251, MPV 10.3, Immature Gran % (Auto) 0.300, Neut % (Auto) 64.9, Lymph % (Auto) 20.8, Hand % (Auto) 9.2, Eos % (Auto) 4.3, Baso % (Auto) 0.5, Absolute Neuts (auto) 3.9, Absolute Lymphs (auto) 1.26, Nucleated RBC % 0, Sodium 137, Potassium 3.9, Chloride 100, Carbon Dioxide 34.0 H, Anion Gap 3 L, BUN 7, Creatinine 0.44 L, Estim Creat Clear Calc 305.08, Est GFR (MDRD) Af Amer 247, Est GFR (MDRD) Non-Af 204, BUN/Creatinine Ratio 15.7, Glucose 114 H, Calcium 8.0 L, Total Bilirubin 0.40, AST 15, ALT 11 L, Alkaline Phosphatase 134 H, Total Protein 5.9 L, Albumin 1.8 L, Globulin 4.1, Albumin/Globulin Ratio 0.4 L Micro: Microbiology 08/23/24 12:39 Urine Catheter - Catheter Urine Culture - Preliminary ESBL Klebsiella pneumoniae pne 08/23/24 12:25 Mucosa - Nose SARS-CoV-2, Influenza & RSV (PCR) - Final Physical Exam Const alert, oriented x3 and no apparent distress Constitutional Narrative: super morbid obesity General Appearance: cooperative HEENT normocephalic, head/scalp atraumatic, hearing grossly normal bilaterally, moist oral mucous membranes and oropharynx normal Eyes PERRL and EOMs intact bilaterally Neck no lymphadenopathy, supple and no JVD Resp normal respiratory effort, no retractions, no use of accessory muscles and clear to auscultation bilaterally Resp Narrative: On 2 L of oxygen by nasal cannula Cardio regular rate, regular rhythm, S1 normal heart sound, S2 normal heart sound and no murmurs GI normal to inspection, nondistended, normoactive bowel sounds, soft to palpation, non-tender and non-distended GI Narrative: morbidly obese abdomen Extremity normal to inspection, full ROM, normal capillary refill and no clubbing, cyanosis or edema Skin Skin Narrative: superficial excoriations over his lower back, with the skin easily bleeding. Neuro oriented x3, CN's II-XII intact bilaterally, moves all extremities and no focal motor deficits Motor Exam: strength 5/5 throughout Psych thought process normal, cooperative and affect normal Appearance: appropriate Assessment & Plan Assessment/Plan (1) Candidal skin infection: (2) Dehydration: (3) Generalized weakness: (4) Unable to ambulate: (5) Complicated urinary tract infection: (6) Adult failure to thrive: PLAN: Plan #Atrial flutter with RVR * resolved * 2D echo ordered * on metoprolol and xarelto * * * #Sepsis due to UTI * On IV Zosyn. Urine cultures pending. Blood cultures also pending. * urine culture growing ESBL Klebsiella pneumoniae. Sensitivities pending. * adjust antibiotics based on sensitivities. * Blood cultures pending. * #Hypokalemia: Resolved. Potassium is 3.9 #Lactic acidosis: * Improved with hydration. Will monitor. #Debility and weakness with failure to thrive * Patient states he was stuck in his Tong lift for several days because he broke. He is unable to ambulate on his own and has severe perennial candidiasis because of this. * patient has adult failure to thrive; he lives at home by himself and has a home health aide come in for ~ 4 hours everyday. He is unable to care for himself. * he may benefit from placement * PT/OT consult. * fall precautions #Sacral decubitus ulcers * Present on admission. Has pressure ulcerations over his lower back. Wound care consulted. Await ruminations. * #DARLIN: on CPAP qhs. #Super morbid obesity * complicates acute care, expected recovery and prognosis # BPH: On Flomax DVT prophylaxis: on xarelto COde status: full code * Charges/Coding Visit Charges Inpatient E&M: 12079 Subs Hosp L2
[2024-08-25] MEDS: Rivaroxaban 20 MG Tablet PO (18:48)
[2024-08-25] MEDS: Albuterol 2.5 MG/3 ML VIAL.NEB. INHALATION (22:27)
[2024-08-25] MEDS: DOXEPIN HCL 50 MG CAPSULE PO (22:31)
[2024-08-26] VITALS (8 sets, daily range): BP systolic 93–107; BP diastolic 64–74; PULSE 80–103; RESP 16–18; TEMP 36.2–36.9; O2SAT 95–99
[2024-08-26] MEDS: Piperacil/Tazobactam 3.375 GM in 0.9% Normal Saline (50mL MB+) 50 ML IV (05:30)
[2024-08-26] MEDS: oxyCODONE 5 MG Tablet PO ×4 (06:55→23:04)
[2024-08-26 07:05] LABS: Absolute Lymphocyte Count 1.03 X10^3/uL (0.83-4.51); Absolute Neutrophil Count 3.2 X10^3/uL (2.0-7.7); Basophil# 0.04 X10^3/uL; Basophil% 0.8 % (0-1); Eosinophil# 0.21 X10^3/uL; Eosinophils% 4.1 % (0-5); Hematocrit 38.3 % (40-54); Lymphocyte # 1.03 X10^3/ul (0.83-4.51); Lymphocyte % 20.3 % (19-41); Mean Corp Hgb Conc 31.3 g/dL (32-36); Mean Corpuscular Hgb 28.7 pg (27.0-32.0); Mean Corpuscular Volume 91.6 fL (80-94); Mean Platelet Vol. 10.6 fl (6.2-12.0); Monocyte# 0.57 X10^3/uL; Monocyte% 11.2 % (0-10); NRBC Flagged by Analyzer 0 % (0-5); Platelet Count 225 K/mm3 (150-450); RBC Distribution Width CV 17.5 % (11.6-14.6); RBC Distribution Width SD 58.8 fl (35.1-43.9); Red Blood Count 4.18 M/mm3 (4.6-6.2); White Blood Count 5.1 K/mm3 (4.4-11.0)
[2024-08-26 07:28] LABS: ALB/GLOB Ratio 0.4 RATIO (0.9-2.4); AST(SGOT) 22 U/L (15-37); Alanine Aminotransfer ALT/SGPT 10 U/L (16-61); Albumin, Serum 1.7 g/dL (3.2-5.0); Alkaline Phosphatase 122 U/L (45-117); Anion Gap 2 (5-15); BUN 6 mg/dL (7-18); BUN/Creat Ratio 13.4 RATIO (10-20); Calcium,Total 7.6 mg/dL (8.5-10.1); Chloride 101 mmol/L (98-107); Creatinine, Serum 0.45 mg/dL (0.70-1.30); EST Glomerular Filtration Rate 203 mL/min (>60); Est Glom Filt Rate - Afr Amer 246 mL/min (>60); Glucose 129 mg/dL (74-106); Potassium 4.2 mmol/L (3.5-5.1); Protein, Total 5.7 g/dL (6.4-8.2); Sodium Level 136 mmol/L (136-145)
--- NOTE | 2024-08-26 10:06 | CASEMGMT ---
SW met with patient. Introduced self and role at [facility]. SW asked patient if he looked at the SNF list. Patient said he has not. SW gave patient the list and asked that he review if for his 3-4 preferences. It was agreed SW will check back with patient after lunch sometime. Holly ETMPLE
[2024-08-26] MEDS: Acetaminophen 325 MG Tablet 650 MG PO ×2 (10:37→19:50)
[2024-08-26] MEDS: Amitriptyline 25 MG Tablet PO (10:37)
[2024-08-26] MEDS: Tamsulosin HCl 0.4 MG Capsule PO (10:37)
[2024-08-26] MEDS: Finasteride 5 MG Tablet PO (10:37)
[2024-08-26] MEDS: Doxycycline 100 MG in 0.9% Normal Saline (250mL Bag) 250 ML 250 MG IV ×2 (11:01→23:07)
--- NOTE | 2024-08-26 12:58 | PN_ITS ---
Subjective Subjective Patient seen and examined. He had no active complaints. He complained of generalised weakness. Review of systems is otherwise negative. Objective Data Objective Data Vital Signs: Vital Signs Temp Pulse Resp BP Pulse Ox O2 Del Method O2 Flow Rate 97.1 F L 82 16 96/65 96 Room Air 2 08/26/24 12:00 08/26/24 12:00 08/26/24 12:00 08/26/24 12:00 08/26/24 12:00 08/26/24 12:00 08/26/24 10:30 Oxygen Flow Rate (L/min) 2 Oxygen Delivery Method Room Air Weight: 419 lb 15.689 oz Body Mass Index (BMI) 53.8 Intake & Output: Intake and Output for Last 24 Hours 08/24/24 08/25/24 08/26/24 23:59 23:59 23:59 Intake Total 3472.90 / 3472.90 510 / 510 359.79 / 359.79 Output Total 3200 / 3200 1400 / 2250 1700 / 1700 Balance 272.90 / 272.90 -890 / -1740 -1340.21 / -1340.21 Lab / Micro Data 08/26/24 06:51 08/26/24 06:51 Labs: Laboratory Results - last 24 hr 08/26/24 06:51: WBC 5.1, RBC 4.18 L, Hgb 12.0 L, Hct 38.3 L, MCV 91.6, MCH 28.7, MCHC 31.3 L, RDW Std Deviation 58.8 H, RDW Coeff of Tasha 17.5 H, Plt Count 225, MPV 10.6, Immature Gran % (Auto) 0.600, Neut % (Auto) 63.0, Lymph % (Auto) 20.3, [place] % (Auto) 11.2 H, Eos % (Auto) 4.1, Baso % (Auto) 0.8, Absolute Neuts (auto) 3.2, Absolute Lymphs (auto) 1.03, Nucleated RBC % 0, Sodium 136, Potassium 4.2, Chloride 101, Carbon Dioxide 33.0 H, Anion Gap 2 L, BUN 6 L, Creatinine 0.45 L, Estim Creat Clear Calc 298.30, Est GFR (MDRD) Af Amer 246, Est GFR (MDRD) Non-Af 203, BUN/Creatinine Ratio 13.4, Glucose 129 H, Calcium 7.6 L, Total Bilirubin 0.50, AST 22, ALT 10 L, Alkaline Phosphatase 122 H, Total Protein 5.7 L, Albumin 1.7 L, Globulin 4.0, Albumin/Globulin Ratio 0.4 L Micro: Microbiology 08/23/24 12:39 Urine Catheter - Catheter Urine Culture - Final ESBL Klebsiella pneumoniae pne 08/23/24 12:25 Blood Culture (Wb) - Anticubital Left Blood Culture - Preliminary No growth in 48 hours. 08/23/24 12:13 Blood Culture (Wb) - Right Hand Blood Culture - Preliminary No growth in 48 hours. 08/23/24 12:25 Mucosa - Nose SARS-CoV-2, Influenza & RSV (PCR) - Final Physical Exam Const alert, oriented x3 and no apparent distress Constitutional Narrative: super morbid obesity General Appearance: cooperative HEENT normocephalic, head/scalp atraumatic, hearing grossly normal bilaterally, moist oral mucous membranes and oropharynx normal Eyes PERRL and EOMs intact bilaterally Neck no lymphadenopathy, supple and no JVD Resp normal respiratory effort, normal air movement, no retractions, no use of accessory muscles and clear to auscultation bilaterally Resp Narrative: on room air. Cardio regular rate, regular rhythm, S1 normal heart sound, S2 normal heart sound and no murmurs Cardio Narrative: now in normal sinus rhythm GI normal to inspection, nondistended, normoactive bowel sounds, soft to palpation, non-tender and non-distended GI Narrative: morbidly obese abdomen Extremity normal to inspection, full ROM, normal capillary refill and no clubbing, cyanosis or edema Skin Skin Narrative: superficial excoriations over his lower back, with the skin easily bleeding. Neuro oriented x3, CN's II-XII intact bilaterally, moves all extremities and no focal motor deficits Motor Exam: strength 5/5 throughout and general weakness Psych thought process normal, cooperative and affect normal Appearance: appropriate Assessment & Plan Assessment/Plan (1) Candidal skin infection: (2) Dehydration: (3) Generalized weakness: (4) Unable to ambulate: (5) Complicated urinary tract infection: (6) Adult failure to thrive: PLAN: Plan #Atrial flutter with RVR * resolved * 2D echo ordered and pending. * on metoprolol and xarelto * #Sepsis due to UTI * On IV Zosyn. Urine cultures pending. Blood cultures also pending. * urine culture growing ESBL Klebsiella pneumoniae. * ZOsyn discontinued and started on IV doxycycline based on sensitivities. * Blood cultures negative. * #Hypokalemia: Resolved. #Lactic acidosis: * Improved with hydration. Will monitor. #Debility and weakness with failure to thrive * Patient states he was stuck in his [place] lift for several days because it broke. He is unable to ambulate on his own and has severe perennial candidiasis because of this. * patient has adult failure to thrive; he lives at home by himself and has a home health aide come in for ~ 4 hours everyday. He is unable to care for himself. * he may benefit from placement * PT/OT on board * fall precautions #Sacral decubitus ulcers * Present on admission. Has pressure ulcerations over his lower back. * Wound care consulted. await recommendations. * #DARLIN: on CPAP qhs. #Super morbid obesity * complicates acute care, expected recovery and prognosis # BPH: On Flomax DVT prophylaxis: on xarelto COde status: full code Disposition: patient will likely benefit from short term placement. * Charges/Coding Visit Charges Inpatient E&M: 89842 Subs Hosp L2
--- NOTE | 2024-08-26 13:00 | CASEMGMT ---
SW met with patient again to see if he has looked at the SNF list. Patient's choices are [facility], [facility], [facility], and [facility]. CAMILLA asked Padmaja to please send a referral to [facility]. Holly Greenwood EXPLORATION GEOLOGIST WINDY
--- NOTE | 2024-08-26 13:13 | ECHOCS_ITS ---
Reason For Study: Afib/Flutter Procedure This was a 2D Doppler, Color Flow transthoracic echocardiogram. Technically difficult study due to patients body habitus. Patient scanned supine. Contrast injection was used. Exam performed portable in patient room. Left Ventricle Normal LV size. The estimated ejection fraction is 60 %. No evidence for diastolic dysfunction. No regional wall motion abnormalities noted. Right Ventricle Normal RV size. Normal systolic function. Atria The left and right atria are normal. No doppler evidence for ASD. Mitral Valve There is no mitral valve stenosis. Trivial mitral valve insufficiency. Tricuspid Valve There is no tricuspid stenosis. Trivial tricuspid valve insufficiency. Pulmonary artery systolic pressure is 30 mmHg. Aortic Valve Trisinus/trileaflet aortic valve. There is no aortic stenosis. No aortic valve insufficiency. Pulmonic Valve There is no pulmonic valvular stenosis. No pulmonic valve insufficiency. Great Vessels Normal aortic root. Pericardium/Pleural No pericardial effusion. Medication Diluted definity 3ml given slow IV push to enhance endocardial definition. MMode/2D Measurements & Calculations LVIDd: 5.1 cm IVSd: 0.94 cm Ao root diam: 3.8 cm LVIDs: 3.7 cm LVPWd: 1.1 cm FS: 26.5 % LAV(MOD-sp4): 111.4 ml LA A4 area: 30.1 cm2 LA dimension(2D): 4.9 cm RA A4 area: 29.7 cm2 Doppler Measurements & Calculations MV E max omer: 84.7 cm/sec MV V2 max: 105.6 cm/sec Ao V2 max: 77.2 cm/sec MV max P.5 mmHg Ao max P.4 mmHg MV V2 mean: 52.3 cm/sec MV mean P.4 mmHg MV V2 VTI: 21.3 cm LV V1 max: 66.6 cm/sec TR max omer: 249.9 cm/sec LV V1 max P.8 mmHg TR max P.0 mmHg ECHO/Echo Complete W/ Contrast Interpretation Summary The estimated ejection fraction is 60 %. No evidence for diastolic dysfunction. Trivial mitral valve insufficiency. Ordering Physician: Sherley Larsen Performed By: Jim Yarbrough RCS
--- NOTE | 2024-08-26 13:41 | CASEMGMT ---
Discharge Planning Referral sent to [facility]. Padmaja Gonzales DC Planning Asst.
[2024-08-26] MEDS: Nystatin Powder 15gm Bottle 1 APPLIC TOPICAL ×2 (14:00→23:04)
[2024-08-26] MEDS: Menthol/Lanolin/Calamine/Znox 113 GM Tube 1 APPLIC TOPICAL ×2 (14:00→23:06)
[2024-08-26] MEDS: Rivaroxaban 20 MG Tablet PO (17:14)
[2024-08-26] MEDS: DOXEPIN HCL 50 MG CAPSULE PO (23:04)
[2024-08-26] MEDS: 0.9% Saline Lock 10 ML Syringe IV (23:08)
[2024-08-26] MEDS: Metoprolol(XL)Succ 50 MG Tablet PO (23:50)
[2024-08-27] VITALS (10 sets, daily range): BP systolic 98–117; BP diastolic 57–80; PULSE 87–109; RESP 16–20; TEMP 36.2–36.8; O2SAT 92–97
[2024-08-27] MEDS: Nystatin Powder 15gm Bottle 1 APPLIC TOPICAL ×3 (05:15→21:28)
[2024-08-27] MEDS: Menthol/Lanolin/Calamine/Znox 113 GM Tube 1 APPLIC TOPICAL ×3 (05:16→15:56)
[2024-08-27 06:24] LABS: Absolute Lymphocyte Count 1.17 X10^3/uL (0.83-4.51); Absolute Neutrophil Count 2.8 X10^3/uL (2.0-7.7); Basophil# 0.03 X10^3/uL; Basophil% 0.6 % (0-1); Eosinophil# 0.23 X10^3/uL; Eosinophils% 4.8 % (0-5); Hematocrit 36.2 % (40-54); Hemoglobin 11.4 g/dL (13.0-16.5); Lymphocyte # 1.17 X10^3/ul (0.83-4.51); Lymphocyte % 24.3 % (19-41); Mean Corp Hgb Conc 31.5 g/dL (32-36); Mean Corpuscular Hgb 28.8 pg (27.0-32.0); Mean Corpuscular Volume 91.4 fL (80-94); Mean Platelet Vol. 10.2 fl (6.2-12.0); Monocyte# 0.57 X10^3/uL; Monocyte% 11.8 % (0-10); NRBC Flagged by Analyzer 0 % (0-5); Neutrophil % 58.1 % (47-70); Platelet Count 225 K/mm3 (150-450); RBC Distribution Width CV 17.6 % (11.6-14.6); RBC Distribution Width SD 58.7 fl (35.1-43.9); Red Blood Count 3.96 M/mm3 (4.6-6.2); White Blood Count 4.8 K/mm3 (4.4-11.0)
[2024-08-27 06:58] LABS: ALB/GLOB Ratio 0.4 RATIO (0.9-2.4); AST(SGOT) 22 U/L (15-37); Alanine Aminotransfer ALT/SGPT 12 U/L (16-61); Albumin, Serum 1.7 g/dL (3.2-5.0); Alkaline Phosphatase 116 U/L (45-117); Anion Gap 2 (5-15); BUN 6 mg/dL (7-18); BUN/Creat Ratio 14.3 RATIO (10-20); Calcium,Total 7.8 mg/dL (8.5-10.1); Chloride 103 mmol/L (98-107); Creatinine, Serum 0.42 mg/dL (0.70-1.30); EST Glomerular Filtration Rate 218 mL/min (>60); Est Glom Filt Rate - Afr Amer 263 mL/min (>60); Estimated Creatinine Clearance 319.61 ml/min; Globulin 3.9 g/dL (2.2-4.2); Glucose 113 mg/dL (74-106); Protein, Total 5.6 g/dL (6.4-8.2); Sodium Level 136 mmol/L (136-145)
--- NOTE | 2024-08-27 09:41 | CASEMGMT ---
[facility] has accepted patient. They will order a bariatric bed for patient. SW will work on getting a level of care from [facility]. Holly TEMPLE
--- NOTE | 2024-08-27 09:57 | WOUNDNOTE ---
wound photo: right buttock
--- NOTE | 2024-08-27 09:58 | WOUNDNOTE ---
wound photo: left buttock
[2024-08-27] MEDS: Finasteride 5 MG Tablet PO (10:19)
[2024-08-27] MEDS: Amitriptyline 25 MG Tablet PO (10:19)
[2024-08-27] MEDS: Tamsulosin HCl 0.4 MG Capsule PO (10:19)
[2024-08-27] MEDS: Metoprolol(XL)Succ 50 MG Tablet PO ×2 (10:19→21:23)
[2024-08-27] MEDS: Doxycycline 100 MG in 0.9% Normal Saline (250mL Bag) 250 ML 250 MG IV ×2 (10:19→21:28)
[2024-08-27] MEDS: oxyCODONE 5 MG Tablet PO ×3 (10:29→21:27)
--- NOTE | 2024-08-27 10:46 | CASEMGMT ---
SW spoke with patient letting him know that [facility] has accepted him. They will order a bariatric bed for him and it will be there tomorrow. Patient said he will work on getting a hold of his aide to have her gather up his belongings. Patient wanted to talk with his [facility] mattress spring encaser Lori Bennett and he does not have a good cell phone signal. SW let patient know SW will get a hold of Lori and have her call his room phone. SW called Lori Bennett and let her know patient's discharge plan. CAMILLA also asked Lori if she could give patient a call on his room phone. SW gave her the phone number. Plan: [facility] pending receipt of level of care and bariatric bed being delivered to [facility]. Holly TEMPLE
--- NOTE | 2024-08-27 13:27 | PN_ITS ---
Subjective Subjective Patient seen and examined. He still complain of lower back pain due to the decubitus ulcer. Review of systems otherwise negative. His blood cultures are coming back positive for gram-positive cocci. Objective Data Objective Data Vital Signs: Vital Signs Temp Pulse Resp BP Pulse Ox O2 Del Method O2 Flow Rate 97.1 F L 109 H 18 113/80 96 Nasal Cannula 2 08/27/24 10:18 08/27/24 10:19 08/27/24 10:18 08/27/24 10:18 08/27/24 10:18 08/27/24 10:18 08/27/24 10:18 Oxygen Flow Rate (L/min) 2 Oxygen Delivery Method Nasal Cannula Weight: 419 lb 15.689 oz Body Mass Index (BMI) 53.8 Intake & Output: Intake and Output for Last 24 Hours 08/25/24 08/26/24 08/27/24 23:59 23:59 23:59 Intake Total 510 / 510 1459.79 / 1459.79 960 / 960 Output Total 1400 / 2250 3550 / 3550 1800 / 1800 Balance -890 / -1740 -2090.21 / -2090.21 -840 / -840 Lab / Micro Data 08/27/24 06:00 08/27/24 06:00 Labs: Laboratory Results - last 24 hr 08/27/24 06:00: WBC 4.8, RBC 3.96 L, Hgb 11.4 L, Hct 36.2 L, MCV 91.4, MCH 28.8, MCHC 31.5 L, RDW Std Deviation 58.7 H, RDW Coeff of Tasha 17.6 H, Plt Count 225, MPV 10.2, Immature Gran % (Auto) 0.400, Neut % (Auto) 58.1, Lymph % (Auto) 24.3, [place] % (Auto) 11.8 H, Eos % (Auto) 4.8, Baso % (Auto) 0.6, Absolute Neuts (auto) 2.8, Absolute Lymphs (auto) 1.17, Nucleated RBC % 0, Sodium 136, Potassium 4.0, Chloride 103, Carbon Dioxide 31.0, Anion Gap 2 L, BUN 6 L, Creatinine 0.42 L, Estim Creat Clear Calc 319.61, Est GFR (MDRD) Af Amer 263, Est GFR (MDRD) Non-Af 218, BUN/Creatinine Ratio 14.3, Glucose 113 H, Calcium 7.8 L, Total Bilirubin 0.40, AST 22, ALT 12 L, Alkaline Phosphatase 116, Total Protein 5.6 L, Albumin 1.7 L, Globulin 3.9, Albumin/Globulin Ratio 0.4 L Micro: Microbiology 08/23/24 12:25 Blood Culture (Wb) - Anticubital Left Blood Culture - Preliminary 08/23/24 12:39 Urine Catheter - Catheter Urine Culture - Final ESBL Klebsiella pneumoniae pne 08/23/24 12:13 Blood Culture (Wb) - Right Hand Blood Culture - Preliminary No growth in 48 hours. 08/23/24 12:25 Mucosa - Nose SARS-CoV-2, Influenza & RSV (PCR) - Final Radiography Diagnostic Testing: Radiology Impression Echocardiogram 08/26/24 13:13 Interpretation Summary The estimated ejection fraction is 60 %. No evidence for diastolic dysfunction. Trivial mitral valve insufficiency. Ordering Physician: Sherley Larsen Performed By: Jim Yarbrough RCS Physical Exam Const alert, oriented x3 and no apparent distress Constitutional Narrative: super morbid obesity General Appearance: cooperative HEENT normocephalic, head/scalp atraumatic, hearing grossly normal bilaterally, moist oral mucous membranes and oropharynx normal Eyes PERRL and EOMs intact bilaterally Neck no lymphadenopathy, supple and no JVD Resp normal respiratory effort, normal air movement, no retractions, no use of accessory muscles and clear to auscultation bilaterally Resp Narrative: on room air. Cardio regular rate, regular rhythm, S1 normal heart sound, S2 normal heart sound and no murmurs Cardio Narrative: now in normal sinus rhythm GI normal to inspection, nondistended, normoactive bowel sounds, soft to palpation, non-tender and non-distended GI Narrative: morbidly obese abdomen Extremity normal to inspection, full ROM, normal capillary refill and no clubbing, cyanosis or edema Skin Skin Narrative: superficial excoriations over his lower back, with the skin easily bleeding. Neuro oriented x3, CN's II-XII intact bilaterally, moves all extremities and no focal motor deficits Motor Exam: strength 5/5 throughout and general weakness Psych thought process normal, cooperative and affect normal Appearance: appropriate Assessment & Plan Assessment/Plan (1) Candidal skin infection: (2) Dehydration: (3) Generalized weakness: (4) Unable to ambulate: (5) Complicated urinary tract infection: (6) Adult failure to thrive: PLAN: Plan #Atrial flutter with RVR * resolved * 2D echo showed EF of 60% with no evidence of diastolic dysfunction and no regional wall motion abnormalities noted. No evidence of vegetation. * on metoprolol and xarelto * #Sepsis due to UTI * On IV Zosyn. * Blood cultures in 1 out of 2 samples growing gram-positive rods. Will await speciation. Repeat blood cultures. * urine culture growing ESBL Klebsiella pneumoniae. * ZOsyn discontinued and started on IV doxycycline based on sensitivities. * * #Hypokalemia: Resolved. #Lactic acidosis: * Improved with hydration. Will monitor. #Debility and weakness with failure to thrive * Patient states he was stuck in his Tong lift for several days because it broke. He is unable to ambulate on his own and has severe perennial candidiasis because of this. * patient has adult failure to thrive; he lives at home by himself and has a home health aide come in for ~ 4 hours everyday. He is unable to care for himself. * he may benefit from placement * PT/OT on board * fall precautions #Sacral decubitus ulcers * Present on admission. Has pressure ulcerations over his lower back. * Wound care consulted. await recommendations. * For frequent turning in bed. * #DARLIN: on CPAP qhs. #Super morbid obesity * complicates acute care, expected recovery and prognosis # BPH: On Flomax DVT prophylaxis: on xarelto COde status: full code Disposition: awaiting placement. * Charges/Coding Visit Charges Inpatient E&M: 40658 Subs Hosp L2
--- NOTE | 2024-08-27 14:45 | CHAPLAIN ---
Type of Pastoral Visit _x__ Initial Visit ___ Follow-up Visit ___ On-call Visit ___ General Patient Visit ___ Spiritual Assessment ___ Family Conference ___ Bereavement ___ Rapid Response ___ Code Blue ___ Other (describe below) Pastoral Care Referral From _x__ Patient ___ Family ___ Nurse ___ Physician ___ Evaporator ___ [employer] Administrator ___ Other (describe below) Sacrament/Intervention _x__ Active listening ___ Anointing ___ Temple ___ Bereavement ___ Communion _x__ Cyndi exploration ___ _x__ Life review _x__ Prayer ___ Reconciliation ___ Sacrament of Sick _x__ Supportive presence ___ Wedding ___ Other (describe below) Pastoral Comments patient is talkative as usual and gives his recent history of health and his perspective on medical matters and life; pt has cyndi and expresses how his cyndi in God helps him; pt welcomes presence and prayer
[2024-08-27] MEDS: Rivaroxaban 20 MG Tablet PO (15:55)
[2024-08-27] MEDS: DOXEPIN HCL 50 MG CAPSULE PO (21:27)
[2024-08-28] VITALS (8 sets, daily range): BP systolic 91–127; BP diastolic 51–79; PULSE 62–90; RESP 16–18; TEMP 35.8–36.8; O2SAT 94–98
[2024-08-28] MEDS: 0.9% Saline Lock 10 ML Syringe IV ×2 (00:31→23:06)
[2024-08-28 08:23] LABS: Absolute Lymphocyte Count 1.06 X10^3/uL (0.83-4.51); Absolute Neutrophil Count 3.5 X10^3/uL (2.0-7.7); Basophil# 0.02 X10^3/uL; Basophil% 0.4 % (0-1); Eosinophil# 0.22 X10^3/uL; Eosinophils% 4.1 % (0-5); Hematocrit 39.8 % (40-54); Hemoglobin 12.4 g/dL (13.0-16.5); Lymphocyte # 1.06 X10^3/ul (0.83-4.51); Lymphocyte % 19.5 % (19-41); Mean Corp Hgb Conc 31.2 g/dL (32-36); Mean Corpuscular Hgb 28.7 pg (27.0-32.0); Mean Corpuscular Volume 92.1 fL (80-94); Mean Platelet Vol. 9.9 fl (6.2-12.0); Monocyte# 0.57 X10^3/uL; Monocyte% 10.5 % (0-10); NRBC Flagged by Analyzer 0 % (0-5); Neutrophil # 3.54 X10^3/uL (2.7-7.7); Neutrophil % 65.1 % (47-70); Platelet Count 258 K/mm3 (150-450); RBC Distribution Width CV 17.4 % (11.6-14.6); RBC Distribution Width SD 58.5 fl (35.1-43.9); Red Blood Count 4.32 M/mm3 (4.6-6.2); White Blood Count 5.4 K/mm3 (4.4-11.0)
[2024-08-28] MEDS: Metoprolol(XL)Succ 50 MG Tablet PO ×2 (08:26→23:05)
[2024-08-28] MEDS: Tamsulosin HCl 0.4 MG Capsule PO (08:26)
[2024-08-28] MEDS: oxyCODONE 5 MG Tablet PO ×3 (08:27→23:05)
[2024-08-28] MEDS: Amitriptyline 25 MG Tablet PO (08:27)
[2024-08-28] MEDS: Finasteride 5 MG Tablet PO (08:27)
[2024-08-28 09:07] LABS: ALB/GLOB Ratio 0.5 RATIO (0.9-2.4); AST(SGOT) 26 U/L (15-37); Alanine Aminotransfer ALT/SGPT 9 U/L (16-61); Albumin, Serum 1.9 g/dL (3.2-5.0); Alkaline Phosphatase 113 U/L (45-117); Anion Gap 4 (5-15); BUN 6 mg/dL (7-18); BUN/Creat Ratio 12.2 RATIO (10-20); Calcium,Total 8.2 mg/dL (8.5-10.1); Chloride 103 mmol/L (98-107); Creatinine, Serum 0.49 mg/dL (0.70-1.30); EST Glomerular Filtration Rate 182 mL/min (>60); Est Glom Filt Rate - Afr Amer 220 mL/min (>60); Estimated Creatinine Clearance 273.95 ml/min; Globulin 4.1 g/dL (2.2-4.2); Glucose 110 mg/dL (74-106); Potassium 3.8 mmol/L (3.5-5.1); Sodium Level 137 mmol/L (136-145)
[2024-08-28] MEDS: Doxycycline 100 MG in 0.9% Normal Saline (250mL Bag) 250 ML 250 MG IV ×2 (09:55→23:06)
--- NOTE | 2024-08-28 10:45 | CASEMGMT ---
SW notified [facility] that patient will not be coming today as there are cultures pending. SW also let them know IV antibiotics are a possibility. SW also spoke with patient to make sure he knew he will not be going today. Patient was aware. Plan: d/c to [facility]. Holly TEMPLE
--- NOTE | 2024-08-28 12:18 | PCM.PROGNOTE ---
Subjective Subjective Patient seen and examined. He had no active complaints. Review of systems is otherwise negative. She is on 3L of systems is otherwise negative. Objective Data Objective Data Vital Signs: Vital Signs Temp Pulse Resp BP Pulse Ox O2 Del Method O2 Flow Rate 98.2 F 88 17 109/79 97 Nasal Cannula 3 08/28/24 10:59 08/28/24 10:59 08/28/24 10:59 08/28/24 10:59 08/28/24 10:59 08/28/24 10:59 08/28/24 10:59 Oxygen Flow Rate (L/min) 3 Oxygen Delivery Method Nasal Cannula Weight: 419 lb 15.689 oz Body Mass Index (BMI) 53.8 Intake & Output: Intake and Output for Last 24 Hours 08/26/24 08/27/24 08/28/24 23:59 23:59 23:59 Intake Total 1459.79 / 1459.79 2280 / 2280 260 / 260 Output Total 3550 / 3550 2200 / 2600 1000 / 1000 Balance -2090.21 / -2090.21 80 / -320 -740 / -740 Lab / Micro Data 08/28/24 07:51 08/28/24 07:51 Labs: Laboratory Results - last 24 hr 08/28/24 07:51: WBC 5.4, RBC 4.32 L, Hgb 12.4 L, Hct 39.8 L, MCV 92.1, MCH 28.7, MCHC 31.2 L, RDW Std Deviation 58.5 H, RDW Coeff of Tasha 17.4 H, Plt Count 258, MPV 9.9, Immature Gran % (Auto) 0.400, Neut % (Auto) 65.1, Lymph % (Auto) 19.5, [place] % (Auto) 10.5 H, Eos % (Auto) 4.1, Baso % (Auto) 0.4, Absolute Neuts (auto) 3.5, Absolute Lymphs (auto) 1.06, Nucleated RBC % 0, Sodium 137, Potassium 3.8, Chloride 103, Carbon Dioxide 30.0, Anion Gap 4 L, BUN 6 L, Creatinine 0.49 L, Estim Creat Clear Calc 273.95, Est GFR (MDRD) Af Amer 220, Est GFR (MDRD) Non-Af 182, BUN/Creatinine Ratio 12.2, Glucose 110 H, Calcium 8.2 L, Total Bilirubin 0.30, AST 26, ALT 9 L, Alkaline Phosphatase 113, Total Protein 6.0 L, Albumin 1.9 L, Globulin 4.1, Albumin/Globulin Ratio 0.5 L Micro: Microbiology 08/23/24 12:25 Blood Culture (Wb) - Anticubital Left Blood Culture - Preliminary 08/23/24 12:39 Urine Catheter - Catheter Urine Culture - Final ESBL Klebsiella pneumoniae pne 08/23/24 12:13 Blood Culture (Wb) - Right Hand Blood Culture - Preliminary No growth in 48 hours. 08/23/24 12:25 Mucosa - Nose SARS-CoV-2, Influenza & RSV (PCR) - Final Physical Exam Const alert, oriented x3 and no apparent distress Constitutional Narrative: super morbid obesity General Appearance: cooperative HEENT normocephalic, head/scalp atraumatic, hearing grossly normal bilaterally, moist oral mucous membranes and oropharynx normal Eyes PERRL and EOMs intact bilaterally Neck no lymphadenopathy, supple and no JVD Resp normal respiratory effort, normal air movement, no retractions, no use of accessory muscles and clear to auscultation bilaterally Resp Narrative: on room air. Cardio regular rate, regular rhythm, S1 normal heart sound, S2 normal heart sound and no murmurs Cardio Narrative: now in normal sinus rhythm GI normal to inspection, nondistended, normoactive bowel sounds, soft to palpation, non-tender and non-distended GI Narrative: morbidly obese abdomen Extremity normal to inspection, full ROM, normal capillary refill and no clubbing, cyanosis or edema Skin Skin Narrative: superficial excoriations over his lower back, with the skin easily bleeding. Neuro oriented x3, CN's II-XII intact bilaterally, moves all extremities and no focal motor deficits Motor Exam: strength 5/5 throughout and general weakness Psych thought process normal, cooperative and affect normal Appearance: appropriate Assessment & Plan Assessment/Plan (1) Candidal skin infection: (2) Dehydration: (3) Generalized weakness: (4) Unable to ambulate: (5) Complicated urinary tract infection: (6) Adult failure to thrive: PLAN: Plan #Atrial flutter resolved. was in RVR on admission but this resolved. 2D echo showed EF of 60% with no evidence of diastolic dysfunction and no regional wall motion abnormalities noted. No evidence of vegetation. on metoprolol and xarelto #Sepsis due to UTI On IV Zosyn. Blood cultures in 1 out of 2 samples growing gram-positive rods. Will await speciation. Repeat blood cultures. urine culture growing ESBL Klebsiella pneumoniae. Zosyn discontinued and started on IV doxycycline based on sensitivities. #Hypokalemia: Resolved. #Lactic acidosis: Improved with hydration. Will monitor. #Debility and weakness with failure to thrive Patient states he was stuck in his Tong lift for several days because it broke. He is unable to ambulate on his own and has severe perennial candidiasis because of this. patient has adult failure to thrive; he lives at home by himself and has a home health aide come in for ~ 4 hours everyday. He is unable to care for himself. he may benefit from placement PT/OT on board fall precautions #Sacral decubitus ulcers Present on admission. Has pressure ulcerations over his lower back. Wound care consulted. await recommendations. For frequent turning in bed. #DARLIN: on CPAP qhs. #Super morbid obesity complicates acute care, expected recovery and prognosis # BPH: On Flomax DVT prophylaxis: on xarelto COde status: full code Disposition: awaiting placement. Charges/Coding Visit Charges Inpatient E&M: 14503 Subs Hosp L2
[2024-08-28] MEDS: Rivaroxaban 20 MG Tablet PO (17:30)
[2024-08-28] MEDS: Nystatin Powder 15gm Bottle 1 APPLIC TOPICAL ×2 (17:30→23:06)
[2024-08-28] MEDS: DOXEPIN HCL 50 MG CAPSULE PO (23:05)
[2024-08-29] VITALS (8 sets, daily range): BP systolic 104–125; BP diastolic 70–84; PULSE 86–97; RESP 17–20; TEMP 36.2–37; O2SAT 94–95
[2024-08-29 07:23] LABS: Absolute Lymphocyte Count 1.04 X10^3/uL (0.83-4.51); Absolute Neutrophil Count 2.9 X10^3/uL (2.0-7.7); Basophil# 0.03 X10^3/uL; Basophil% 0.7 % (0-1); Eosinophil# 0.18 X10^3/uL; Eosinophils% 3.9 % (0-5); Hematocrit 38.3 % (40-54); Hemoglobin 11.7 g/dL (13.0-16.5); Lymphocyte # 1.04 X10^3/ul (0.83-4.51); Lymphocyte % 22.6 % (19-41); Mean Corp Hgb Conc 30.5 g/dL (32-36); Mean Corpuscular Hgb 28.6 pg (27.0-32.0); Mean Corpuscular Volume 93.6 fL (80-94); Mean Platelet Vol. 9.8 fl (6.2-12.0); Monocyte# 0.47 X10^3/uL; Monocyte% 10.2 % (0-10); NRBC Flagged by Analyzer 0 % (0-5); Neutrophil # 2.86 X10^3/uL (2.7-7.7); Neutrophil % 62.2 % (47-70); Platelet Count 274 K/mm3 (150-450); RBC Distribution Width CV 17.3 % (11.6-14.6); RBC Distribution Width SD 60.1 fl (35.1-43.9); Red Blood Count 4.09 M/mm3 (4.6-6.2); White Blood Count 4.6 K/mm3 (4.4-11.0)
[2024-08-29 07:54] LABS: ALB/GLOB Ratio 0.4 RATIO (0.9-2.4); AST(SGOT) 28 U/L (15-37); Alanine Aminotransfer ALT/SGPT 10 U/L (16-61); Albumin, Serum 1.8 g/dL (3.2-5.0); Alkaline Phosphatase 109 U/L (45-117); Anion Gap 3 (5-15); BUN 8 mg/dL (7-18); BUN/Creat Ratio 21.6 RATIO (10-20); Calcium,Total 8.1 mg/dL (8.5-10.1); Chloride 104 mmol/L (98-107); Creatinine, Serum 0.37 mg/dL (0.70-1.30); EST Glomerular Filtration Rate 252 mL/min (>60); Est Glom Filt Rate - Afr Amer 305 mL/min (>60); Glucose 110 mg/dL (74-106); Potassium 3.6 mmol/L (3.5-5.1); Protein, Total 5.8 g/dL (6.4-8.2); Sodium Level 138 mmol/L (136-145)
[2024-08-29] MEDS: Tamsulosin HCl 0.4 MG Capsule PO (08:31)
[2024-08-29] MEDS: Metoprolol(XL)Succ 50 MG Tablet PO ×2 (08:32→20:18)
[2024-08-29] MEDS: Amitriptyline 25 MG Tablet PO (08:32)
[2024-08-29] MEDS: Finasteride 5 MG Tablet PO (08:32)
[2024-08-29] MEDS: Doxycycline 100 MG in 0.9% Normal Saline (250mL Bag) 250 ML 250 MG IV (10:45)
[2024-08-29] MEDS: oxyCODONE 5 MG Tablet PO ×2 (12:38→19:47)
--- NOTE | 2024-08-29 13:06 | TREXTCAR_ITS ---
Diet Diet Order/Speech Therapy: 08/28/24 13:37 Diet: Regular - General Food consistency:: Regular Liquid Consistency:: Regular/Thin Type of Dietary Supplement:: Mc Diet Comments: Mc BID DC O2, CPAP, BIPAP needs Home O2 Discharge instructions: No Wound(s) L buttock: Wound Type: moisture related open areas right buttock: Wound Type: moisture related open areas Therapies Weight Bearing: Full weight bearing (With walker) Physical Therapy: Eval and Treat Occupational Therapy: Eval and Treat Problem/Diagnosis (1) Candidal skin infection: Status: Acute Code(s): B37.2 - Candidiasis of skin and nail (2) Generalized weakness: Status: Acute Code(s): R53.1 - Weakness (3) Unable to ambulate: Status: Acute Code(s): R26.2 - Difficulty in walking, not elsewhere classified (4) Complicated urinary tract infection: Status: Acute Code(s): N39.0 - Urinary tract infection, site not specified (5) Adult failure to thrive: Status: Acute Code(s): R62.7 - Adult failure to thrive (6) Debility: Status: Acute Code(s): R53.81 - Other malaise (7) Paroxysmal atrial flutter: Status: Chronic Code(s): I48.92 - Unspecified atrial flutter Allergies/Procedures Done in Hospital Allergies duloxetine (From Cymbalta) Allergy (Severe, Verified 08/23/24 11:29) Other SERATONIN SYNDROME Procedures: 2-D Echocardiogram Type of Care/Length of Stay Estimated LOS: Convalescent Care Less Than 30 days Type of Care Needed: Skilled Rehab Potential: Good Prognosis: Good Additional Orders/Day of Discharge H&P will serve as current which was dated: 08/23/24 Day of Discharge: 08/29/24 Dietary and Speech Recommendations Dietitian Recommendations/Changes: Adjust to liberal regular diet to optimize oral intakes d/t poor PO intake. Will order mc BID with meals to promote wound healing. Will monitor weight trends. Reviewed and approved by Ignacia Jauregui RDN, LD. Discharge Plan Admission Admit Date/Time: 08/23/24 13:21 Primary Reason for Your Visit: Acute debility, paroxysmal atrial flutter, urinary tract infection Attending Provider: Chapo Sims Primary Care Provider: Chalo Mclean Chi Consulting Providers: Sherley Larsen Discharge Orders/Prescriptions Prescriptions: New acetaminophen 325 mg Tablet 650 mg PO Q6H PRN PRN (Reason: Pain 1-10 Or Fever >100.7) Qty: 0 0RF albuterol sulfate 2.5 mg /3 mL (0.083 %) Solution For Nebulization 2.5 mg inhalation Q2H PRN PRN (Reason: SOB &/OR WHEEZING) Qty: 0 0RF nystatin [Nyamyc] 100,000 unit/gram Powder 1 applic topical TID Qty: 0 0RF Protocol: *Topical Application Instructions APPLICATION INSTRUCTIONS: apply to affected areas doxycycline monohydrate 100 mg tablet 100 mg PO BID Qty: 11 0RF Rx Instructions: Administer for a total of 11 doses starting the evening of 08/29/2024 Continued cyanocobalamin (vitamin B-12) 1,000 MCG/ML solution 1,000 mcg IM Q30D Patient Comments: GETS FIRST OF THE MONTH tamsulosin 0.4 mg Capsule 0.4 mg PO DAILY finasteride 5 mg tablet 5 mg PO DAILY Patient Comments: TAKE 1 TABLET BY MOUTH EVERY DAY doxepin 50 mg capsule 50 mg PO QHS Patient Comments: TAKE 1 CAPSULE BY MOUTH AT BEDTIME calcium carbonate 200 mg calcium (500 mg) Tablet,Chewable 1,000 mg PO Q4H PRN PRN (Reason: DYSPEPSIA/INDIGESTION) Qty: 0 0RF amitriptyline 25 mg tablet 25 mg PO DAILY Xarelto 20 mg tablet 20 mg PO Q3D Rx Instructions: must administer with evening meal metoprolol succinate 50 mg tablet extended release 24 hr 50 mg PO BID Qty: 180 3RF Discontinued albuterol sulfate 1 INHALER inhaler 2 puff INHALATION Q6H PRN PRN (Reason: Sob &/Or Wheezing) acetaminophen 325 MG tablet 650 mg PO Q6H PRN PRN (Reason: Pain Score 1-3/Temp > 100.7 F) 0RF furosemide [Lasix] 40 mg tablet 40 mg PO .COMPLEX Rx Instructions: 40 mg orally daily, may need to take an extra 40 mg d/t edema so please give 180 tablets; sulfamethoxazole-trimethoprim 400-80 mg tablet 1 tab PO DAILY terbinafine HCl [Athlete's Foot (terbinafine)] 1 % cream 1 applic topical DAILY Referrals / Follow Up: Chalo Mclean Chi, MD [Primary Care Provider] - Disposition Disposition (needs filled in before D/C Order can be placed): Long-Term Facility
--- NOTE | 2024-08-29 13:31 | PCM.DC.SUM ---
Providers Date of Admission: 08/23/24 Date of Discharge: 08/29/24 Primary Care Physician: Dr. Chalo Mclean MD Consultations 08/23/24 14:52 Consult: Onc/Wound/business intelligence analyst Routine Comment: Reason For Visit: SEPSIS DUE TO UTI, DEHYDRATION Diagnosis Discharge Diagnosis (1) Candidal skin infection: Status: Inactive Code(s): B37.2 - Candidiasis of skin and nail (2) Generalized weakness: Status: Inactive Code(s): R53.1 - Weakness (3) Unable to ambulate: Status: Inactive Code(s): R26.2 - Difficulty in walking, not elsewhere classified (4) Complicated urinary tract infection: Status: Inactive Code(s): N39.0 - Urinary tract infection, site not specified (5) Adult failure to thrive: Status: Inactive Code(s): R62.7 - Adult failure to thrive (6) Debility: Status: Acute Code(s): R53.81 - Other malaise (7) Paroxysmal atrial flutter: Status: Chronic Code(s): I48.92 - Unspecified atrial flutter Plan 1. Paroxysmal atrial flutter with RVR #2 acute debility #3 acute urinary tract infection #4 class III obesity #5 benign prostatic hypertrophy #6 positive blood culture from skin contamination #7 lactic acidosis etiology unknown Acute sepsis was ruled out Medications at Discharge Home Medications cyanocobalamin (vitamin B-12) 1,000 mcg/mL injection solution 1,000 mcg IM Q30D DEFICIENCY 05/28/18 tamsulosin 0.4 mg capsule 0.4 mg PO DAILY bladder 04/09/21 doxepin 50 mg capsule 50 mg PO QHS sleep 01/26/23 finasteride 5 mg tablet 5 mg PO DAILY PROSTATE 01/26/23 calcium carbonate 1,000 mg (5 x 200 mg calcium (500 mg)) PO Q4H PRN PRN DYSPEPSIA/INDIGESTION #0 tabs 01/22/24 metoprolol succinate 50 mg tablet,extended release 24 hr 50 mg PO BID heart #180 tabs 07/23/24 amitriptyline 25 mg tablet 25 mg PO DAILY sleep 08/23/24 rivaroxaban 20 mg tablet (Xarelto) 20 mg PO Q3D afib 08/23/24 acetaminophen 325 mg tablet 650 mg (2 x 325 mg) PO Q6H PRN PRN Pain 1-10 Or Fever >100.7 #0 tabs 08/29/24 albuterol sulfate 2.5 mg/3 mL (0.083 %) solution for nebulization 2.5 mg (3 mL) inhalation Q2H PRN PRN SOB &/OR WHEEZING #0 mL 08/29/24 doxycycline monohydrate 100 mg tablet 100 mg PO BID #11 tabs 08/29/24 nystatin 100,000 unit/gram topical powder (Nyamyc) 1 applic topical TID #0 grams 08/29/24 Hospital Course Operations None Procedures None Summary of Care Provided Minutes Spent on Discharge: 31 Hospital Course: This 64-year-old white male was seen in the emergency room at [facility] with complaints of weakness, cough, and chest congestion for 1 to 2 weeks prior to admission. He also complained of fever and chills at home. 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 Patient became weak and so he came to the ER for evaluation. Labs obtained in the ER revealed a normal white blood cell count, chemistry was unremarkable. Urinalysis showed evidence of UTI and patient's lactic acid was elevated. Patient was noted to be in atrial flutter with RVR. Patient was admitted to PCU and IV antibiotics were continued, he was started on an amiodarone drip after an amiodarone bolus, patient was already on Xarelto and this was continued. Patient was given IV fluids and seen by PT and OT. Urine culture grew out ESBL Klebsiella pneumoniae, patient's blood culture growing gram-positive miguel ángel but this was thought to be a skin contaminant. Patient converted to sinus rhythm and the amiodarone drip was stopped and he was placed back on his metoprolol. It was felt to be appropriate that the patient be placed in a custodial facility for short-term rehab services. On 08/29/2024, patient was seen and examined: On examination he had class III obesity, he was in no distress.. Vital signs as documented. Skin warm and dry and without overt rashes. Neck without JVD, neck was supple, trachea midline, thyroid was normal. Lungs clear bilaterally, normal air movement was noted. Heart exam notable for regular rhythm, normal sounds and absence of murmurs, rubs or gallops. Abdomen unremarkable and without evidence of organomegaly, masses, or abdominal aortic enlargement. Bowel sounds are present, abdomen is not distended. Extremities nonedematous, no cyanosis was noted, no clubbing was noted. Neuro: Cranial nerves II through XII are grossly intact, no focal motor deficits were noted, sensation to light touch and pinprick intact, motor exam 5/5 throughout. Psych: Patient is alert and oriented x3, he does not appear anxious or depressed, he does not appear agitated. Patient was transferred to custodial facility in stable condition on 08/29/2024 Weight / BMI Weight Weight: 190.5 kg Body Mass Index (BMI) 53.8 ABG / Lab / Microbiology Data 08/29/24 06:15 08/29/24 06:15 Laboratory: Laboratory Results - last 24 hr 08/29/24 06:15: WBC 4.6, RBC 4.09 L, Hgb 11.7 L, Hct 38.3 L, MCV 93.6, MCH 28.6, MCHC 30.5 L, RDW Std Deviation 60.1 H, RDW Coeff of Tasha 17.3 H, Plt Count 274, MPV 9.8, Immature Gran % (Auto) 0.400, Neut % (Auto) 62.2, Lymph % (Auto) 22.6, [place] % (Auto) 10.2 H, Eos % (Auto) 3.9, Baso % (Auto) 0.7, Absolute Neuts (auto) 2.9, Absolute Lymphs (auto) 1.04, Nucleated RBC % 0, Sodium 138, Potassium 3.6, Chloride 104, Carbon Dioxide 31.0, Anion Gap 3 L, BUN 8, Creatinine 0.37 L, Estim Creat Clear Calc 362.80, Est GFR (MDRD) Af Amer 305, Est GFR (MDRD) Non-Af 252, BUN/Creatinine Ratio 21.6 H, Glucose 110 H, Calcium 8.1 L, Total Bilirubin 0.40, AST 28, ALT 10 L, Alkaline Phosphatase 109, Total Protein 5.8 L, Albumin 1.8 L, Globulin 4.0, Albumin/Globulin Ratio 0.4 L Microbiology: Microbiology 08/27/24 13:48 Blood Culture (Wb) - Right Hand Blood Culture - Preliminary No growth in 48 hours. 08/27/24 13:48 Blood Culture (Wb) - Right Hand Blood Culture - Preliminary No growth in 48 hours. 08/23/24 12:25 Blood Culture (Wb) - Anticubital Left Blood Culture - Final Gram positive miguel ángel 08/23/24 12:13 Blood Culture (Wb) - Right Hand Blood Culture - Final No growth in 5 days. 08/23/24 12:39 Urine Catheter - Catheter Urine Culture - Final ESBL Klebsiella pneumoniae pne 08/23/24 12:25 Mucosa - Nose SARS-CoV-2, Influenza & RSV (PCR) - Final D/C Instructions DC O2, CPAP, BIPAP Needs PSN CPAP & BiPAP: BiPAP & CPAP Settings per PSN Fraction of Inspired Oxygen ( 3 08/28/24 22:50 FIO2) Home O2 Discharge instructions: No Meaningful Use Info Meaningful Use Meaningful Use Diagnoses (Choose all that apply): None applicable Ischemic Stroke Statin Dosing Therapy Reference: STATIN DOSE THERAPY REFERENCE: * Patients > 75 years receive moderate or high dose statin therapy. * Patients 75 years or YOUNGER should receive HIGH intensity statin dose unless contraindicated. You will be required to document reason for non-treatment if statin daily dose does not meet guidelines. HIGH DOSE STATIN THERAPY DAILY Atorvastatin > than or = to 40 mg Rosuvastatin > than or = to 20 mg Amlodipine + Atorvastatin > than or = to 2.5/40 mg Ezetimibe + Simvastatin 10/80 mg Simvastatin 80mg Discharge Plan Admission Admit Date/Time: 08/23/24 13:21 Primary Reason for Your Visit: Acute debility, paroxysmal atrial flutter, urinary tract infection Attending Provider: Chapo Sims Primary Care Provider: Chalo Mclean Chi Consulting Providers: Sherley Larsen Discharge Orders/Prescriptions Prescriptions: New acetaminophen 325 mg Tablet 650 mg PO Q6H PRN PRN (Reason: Pain 1-10 Or Fever >100.7) Qty: 0 0RF albuterol sulfate 2.5 mg /3 mL (0.083 %) Solution For Nebulization 2.5 mg inhalation Q2H PRN PRN (Reason: SOB &/OR WHEEZING) Qty: 0 0RF nystatin [Nyamyc] 100,000 unit/gram Powder 1 applic topical TID Qty: 0 0RF Protocol: *Topical Application Instructions APPLICATION INSTRUCTIONS: apply to affected areas doxycycline monohydrate 100 mg tablet 100 mg PO BID Qty: 11 0RF Rx Instructions: Administer for a total of 11 doses starting the evening of 08/29/2024 Continued cyanocobalamin (vitamin B-12) 1,000 MCG/ML solution 1,000 mcg IM Q30D Patient Comments: GETS FIRST OF THE MONTH tamsulosin 0.4 mg Capsule 0.4 mg PO DAILY finasteride 5 mg tablet 5 mg PO DAILY Patient Comments: TAKE 1 TABLET BY MOUTH EVERY DAY doxepin 50 mg capsule 50 mg PO QHS Patient Comments: TAKE 1 CAPSULE BY MOUTH AT BEDTIME calcium carbonate 200 mg calcium (500 mg) Tablet,Chewable 1,000 mg PO Q4H PRN PRN (Reason: DYSPEPSIA/INDIGESTION) Qty: 0 0RF amitriptyline 25 mg tablet 25 mg PO DAILY Xarelto 20 mg tablet 20 mg PO Q3D Rx Instructions: must administer with evening meal metoprolol succinate 50 mg tablet extended release 24 hr 50 mg PO BID Qty: 180 3RF Discontinued albuterol sulfate 1 INHALER inhaler 2 puff INHALATION Q6H PRN PRN (Reason: Sob &/Or Wheezing) acetaminophen 325 MG tablet 650 mg PO Q6H PRN PRN (Reason: Pain Score 1-3/Temp > 100.7 F) 0RF furosemide [Lasix] 40 mg tablet 40 mg PO .COMPLEX Rx Instructions: 40 mg orally daily, may need to take an extra 40 mg d/t edema so please give 180 tablets; sulfamethoxazole-trimethoprim 400-80 mg tablet 1 tab PO DAILY terbinafine HCl [Athlete's Foot (terbinafine)] 1 % cream 1 applic topical DAILY Referrals / Follow Up: Chalo Mclean Chi, MD [Primary Care Provider] - Disposition Disposition (needs filled in before D/C Order can be placed): Senior Living Facility Charges/Coding Visit Charges Inpatient E&M: 54163 Disch Hosp >30min
--- NOTE | 2024-08-29 13:47 | CASEMGMT ---
CAMILLA let [facility] ([facility]) know that patient will be coming today on po antibiotics. CAMILLA completed PASRR in [facility] system. CAMILLA sent all necessary information to [facility] to obtain a level of care. Await level of care. Holly TEMPLE
[2024-08-29] MEDS: Nystatin Powder 15gm Bottle 1 APPLIC TOPICAL (14:29)
--- NOTE | 2024-08-29 15:28 | CASEMGMT ---
SW received level of care from [facility]. SW sent it to [facility]. SW completed a PASRR in [employer] system. Physicians will pickle maker patient at 630p. SW notified RN, charge account identification clerk, and patient. Plan: d/c to [facility] under intermediate level of care on a PASRR. Physicians will transport patient via cot at 6p. Holly TEMPLE
[2024-08-29] MEDS: Rivaroxaban 20 MG Tablet PO (17:02)
--- NOTE | 2024-08-29 18:07 | NURSING ---
Report given to Gali at [facility] with all questions answered
[2024-08-29] MEDS: DOXEPIN HCL 50 MG CAPSULE PO (20:18)
== END 2024-08-29 20:30 | DRG 201 ==
LOC: ED 13:23 → PCU 14:22
PROVIDERS: Physician Assistant; Admitting Provider Student in an Organized Health Care Education/Training Program; Emergency Provider Emergency Medicine; PCP Family Medicine Geriatric Medicine; Visit Provider Internal Medicine
DX: I48.3 Typical atrial flutter (principal); E87.21 Acute metabolic acidosis; L89.311 Pressure ulcer of right buttock, stage 1; L89.321 Pressure ulcer of left buttock, stage 1; B96.1 Klebsiella pneumoniae [K. pneumoniae] as the cause of diseases classified elsewhere; R62.7 Adult failure to thrive; Z68.43 Body mass index [BMI] 50.0-59.9, adult; I10 Essential (primary) hypertension; E86.0 Dehydration; E87.6 Hypokalemia; G47.33 Obstructive sleep apnea (adult) (pediatric); E66.01 Morbid (severe) obesity due to excess calories; R26.2 Difficulty in walking, not elsewhere classified; I48.0 Paroxysmal atrial fibrillation; B37.2 Candidiasis of skin and nail; N39.0 Urinary tract infection, site not specified; E66.813 Obesity, class 3; N40.0 Benign prostatic hyperplasia without lower urinary tract symptoms; R53.81 Other malaise; Z79.01 Long term (current) use of anticoagulants; Z79.899 Other long term (current) drug therapy; Z87.891 Personal history of nicotine dependence
CPT/HCPCS: 36415; 71045; 71275; 80053; 81001; 82550; 83605; 83735; 83880; 84484; 85025; 85610; 85730; 87040; 87077; 87086; 87088; 87186; 87631; 93005; 93306; 94640; 97110; 97163; 97165; 97530; 97803; 99285; Q9957; A4216; C8929

== ENCOUNTER → 2024-12-23 | Outpatient (CLI) | payer MEDICAID, SELFPAY ==
[2024-12-23 15:36] LABS: International Normalized Ratio 1.5; Prothrombin Time (Protime)PT. 18.3 SECONDS (11.7-14.9)
[2024-12-23 15:37] LABS: Partial Thromboplast Time 33.9 Seconds (24.1-36.2)
[2024-12-23 15:41] LABS: Absolute Lymphocyte Count 1.14 X10^3/uL (0.83-4.51); Absolute Neutrophil Count 6.1 X10^3/uL (2.0-7.7); Basophil# 0.03 X10^3/uL; Basophil% 0.4 % (0-1); Eosinophil# 0.21 X10^3/uL; Eosinophils% 2.7 % (0-5); Hematocrit 39.1 % (40-54); Hemoglobin 12.5 g/dL (13.0-16.5); Lymphocyte # 1.14 X10^3/ul (0.83-4.51); Lymphocyte % 14.4 % (19-41); Mean Corpuscular Hgb 27.6 pg (27.0-32.0); Mean Corpuscular Volume 86.3 fL (80-94); Monocyte# 0.44 X10^3/uL; Monocyte% 5.6 % (0-10); NRBC Flagged by Analyzer 0 % (0-5); Neutrophil # 6.07 X10^3/uL (2.7-7.7); Neutrophil % 76.5 % (47-70); Platelet Count 254 K/mm3 (150-450); RBC Distribution Width CV 15.2 % (11.6-14.6); RBC Distribution Width SD 48.1 fl (35.1-43.9); Red Blood Count 4.53 M/mm3 (4.6-6.2); White Blood Count 7.9 K/mm3 (4.4-11.0)
[2024-12-23 16:17] LABS: Cholesterol 127 mg/dL (<=200); High Density Lipoprotein 34 mg/dL; Low Density Lipoprotein Calc. 77 mg/dL; Triglycerides 78 mg/dL; Very Low Density Lipoprotein 16 mg/dL (5-40); cholesterol:hdl ratio screen 3.74
[2024-12-23 16:18] LABS: PSA,Total- Diagnostic < 0.02 ng/mL (0.00-4.00)
[2024-12-25 10:59] LABS: AST(SGOT) 22 U/L (<=37); Alanine Aminotransfer ALT/SGPT 11 U/L (<=46); Albumin, Serum 3.6 g/dL (3.4-4.8); Alkaline Phosphatase 156 U/L (40-129); Anion Gap 12 (5-15); BUN 7 mg/dL (4-19); BUN/Creat Ratio 12.1 RATIO (10-20); Calcium,Total 8.1 mg/dL (7.6-11.0); Chloride 97 mmol/L (98-108); Creatinine, Serum 0.61 mg/dL (0.70-1.20); EST Glomerular Filtration Rate 108 (>60); Globulin 3.7 g/dL (2.2-4.2); Glucose 116 mg/dL (70-99); Potassium 4.2 mmol/L (3.3-5.1); Protein, Total 7.3 g/dL (5.9-8.4); Sodium Level 139 mmol/L (133-145); Total Bilirubin 0.48 mg/dL (0.00-1.30)
== END | disposition home or self-care (01) ==
LOC: LAB 14:48
PROVIDERS: PCP Family Medicine Geriatric Medicine; Referring Provider Family Medicine Geriatric Medicine; Visit Provider Family Medicine Geriatric Medicine
DX: I10 Essential (primary) hypertension (principal); I48.91 Unspecified atrial fibrillation; E78.5 Hyperlipidemia, unspecified; N40.0 Benign prostatic hyperplasia without lower urinary tract symptoms
CPT/HCPCS: 36415; 80053; 80061; 84153; 84443; 85025; 85610; 85730

== ENCOUNTER 2025-01-22 14:24 | Inpatient (IN) | payer MEDICAID, SELFPAY ==
[2025-01-22] VITALS (7 sets, daily range): BP systolic 101–115; BP diastolic 65–78; PULSE 91–113; RESP 16–21; TEMP 36.4–36.9; O2SAT 92–97; BMI 53.8; BMI 52.0
--- NOTE | 2025-01-22 14:51 | CT_ITS ---
PROCEDURE: SPINE CERVICAL WITHOUT CONTRAS 01/22/2025 REASON FOR EXAM: FALL TECHNIQUE: Cervical spine CT without contrast. Coronal and Sagittal reconstruction series were provided. One or more dose reduction techniques were used (e.g., Automated exposure control, adjustment of the mA and/or kV according to patient size, use of iterative reconstruction technique RADIATION DOSE SUMMARY: CTDlvol: 44.99+ 45.35 mGy DLP: 1913.39 mGycm COMPARISON: None. FINDINGS: Study is moderately limited due to motion. No evidence acute fracture or dislocation. Vertebral body heights are maintained. Moderate discogenic degenerative changes of the visualized spine. Normal alignment. The lung apices are clear. CT/Spine Cervical without Contras IMPRESSION: No evidence of acute cervical spine fracture on this moderately limited examina tion. Reading Location: [place] [id number]
--- NOTE | 2025-01-22 14:51 | RAD_ITS ---
PROCEDURE: KNEE 1 OR 2 VIEWS; TIBIA FIBULA 2 VIEWS; FEMUR MIN 2 VIEWS 01/22/2025 REASON FOR EXAM: FALL; FALL, PAIN TECHNIQUE: Five view right femur, three-view right tibia and fibula, and two-view right knee (combined dictation). COMPARISON: Left hip and pelvis series 09/14/2018. RAD/Femur Min 2 Views IMPRESSION: A comminuted, possibly intra-articular, FRACTURE of the distal shaft of the rig ht femur is noted. Mild anterior dislocation of the major distal femoral fragment is seen, along with mild posterior angulation No tibial or fibular fracture site is seen. No additional fracture site is evident. Mild degenerative changes of the right knee are most apparent at the medial and patellofemoral compartments. No radiopaque foreign body is appreciated Reading Location: [id number]
--- NOTE | 2025-01-22 14:51 | CT_ITS ---
PROCEDURE: BRAIN/HEAD WITHOUT CONTRAST 01/22/2025 REASON FOR EXAM: FALL ON THINNERS TECHNIQUE: Head CT without intravenous contrast. Coronal and Sagittal reconstruction series were provided. One or more dose reduction techniques were used (e.g., Automated exposure control, adjustment of the mA and/or kV according to patient size, use of iterative reconstruction technique. RADIATION DOSE SUMMARY: DLP: 560 mGycm COMPARISON: 01/16/2024 FINDINGS: There is no acute infarct, intracranial hemorrhage, or mass effect. There is no hydrocephalus or significant midline shift. There is mild chronic microvascular ischemic changes and mild parenchymal volume loss. No acute, depressed calvarial fractures. No large scalp hematomas. CT/Brain/Head without Contrast IMPRESSION: No acute intracranial process. Reading Location: [id number]
--- NOTE | 2025-01-22 14:51 | RAD_ITS ---
PROCEDURE: KNEE 1 OR 2 VIEWS; TIBIA FIBULA 2 VIEWS; FEMUR MIN 2 VIEWS 01/22/2025 REASON FOR EXAM: FALL; FALL, PAIN TECHNIQUE: Five view right femur, three-view right tibia and fibula, and two-view right knee (combined dictation). COMPARISON: Left hip and pelvis series 09/14/2018. RAD/Knee 1 or 2 Views IMPRESSION: A comminuted, possibly intra-articular, FRACTURE of the distal shaft of the rig ht femur is noted. Mild anterior dislocation of the major distal femoral fragment is seen, along with mild posterior angulation No tibial or fibular fracture site is seen. No additional fracture site is evident. Mild degenerative changes of the right knee are most apparent at the medial and patellofemoral compartments. No radiopaque foreign body is appreciated Reading Location: [id number]
--- NOTE | 2025-01-22 14:51 | RAD_ITS ---
PROCEDURE: PELVIS 1 OR 2 VIEWS 01/22/2025 REASON FOR EXAM: FALL TECHNIQUE: 1 view(s) of the pelvis. COMPARISON: AP pelvis of 09/14/2018. RAD/Pelvis 1 or 2 Views IMPRESSION: Partially visualized inferior vena cava filter seen. Prominent degenerative changes are noted at the visualized lower lumbar spine. Mild sacroiliac joint degenerative changes are seen. Heterotopic ossification is seen medial to the proximal right femur. Mild bilateral hip joint degenerative changes are seen, without significant deg ree of joint space narrowing. No fracture or dislocation is seen on this solitary image. If clinical concern persists, short-term follow-up imaging may be obtained to r ule out a currently occult fracture. Reading Location: [id number]
--- NOTE | 2025-01-22 15:01 | EX.ED.DYSGE1 ---
HPI History of Present Illness Chief Complaint: Lower Extremity Injury Narrative Narrative: Patient is a 64-year-old male past medical history of GERD, alcohol use, asthma, atrial fibrillation on Xarelto, DARLIN, anxiety, hypertension, cardiomyopathy, fibromyalgia, depression who presents to the emergency department with chief complaint of right knee pain. Patient states that he recently fell out of his lift chair. He states that he fell asleep and either him or his cat was standing on the remote causing the chair to the lift up and he states it dumped me out. He states that he does not believe he hit his head but he is unsure exactly. Patient states that he is on Xarelto and compliant with his medications not missing doses. Patient notes that he just recently got out of a facility and is currently living with a caregiver. [facility] Medical History Dehydration Candidal skin infection Generalized weakness Unable to ambulate Complicated urinary tract infection Adult failure to thrive History of ESBL Klebsiella pneumoniae infection Chronic pain of both lower extremities Alcohol abuse Rheumatoid arthritis GERD (gastroesophageal reflux disease) Asthma Restless legs syndrome Atrial fibrillation Weakness Acute hyponatremia Internal impingement of right shoulder Right shoulder pain MRSA infection PTSD (post-traumatic stress disorder) Thyroid disease DVT (deep venous thrombosis) Back pain Syncope Blackout History of ulceration Sleep apnea CPAP (continuous positive airway pressure) dependence Bladder disease Dysphagia Urine retention Dysuria Wears glasses Wears dentures Anxiety Alcohol use Marijuana use Uses wheelchair Walker as ambulation aid Ambulates with cane Gout Arthritis Prostate disease Anemia Easy bruising Excessive bleeding History of hiatal hernia Urinary incontinence Gastric reflux Shortness of breath on exertion Former smoker Leg cramps History of edema History of rheumatic fever History of atrial fibrillation History of stress test History of Holter monitoring History of echocardiogram Cardiology follow-up encounter Ventricular ectopy Cardiomyopathy Paroxysmal atrial fibrillation Paroxysmal ventricular tachycardia HTN (hypertension) Cardiomyopathy Atrial fibrillation with rapid ventricular response Atrial fibrillation Debility CHI (closed head injury) Chronic atrial fibrillation Traumatic injury to skin or subcutaneous tissue History of DVT (deep vein thrombosis) Essential hypertension Atrial flutter History of sepsis Abdominal wall pain Left fibular fracture Rheumatic fever Morbid obesity Chronic pain BPH (benign prostatic hyperplasia) ADD (attention deficit disorder) Neuropathy Depression Calcium deficiency Vitamin B12 deficiency Fibromyalgia Home Medications ?Medication ?Instructions ?Recorded ?Last Taken ?Type cyanocobalamin (vitamin B-12) 1,000 mcg IM Q30D DEFICIENCY 05/28/18 07/21/24 History 1,000 mcg/mL injection solution tamsulosin 0.4 mg capsule 0.4 mg PO DAILY bladder 04/09/21 08/22/24 History doxepin 50 mg capsule 50 mg PO QHS sleep 01/26/23 08/22/24 History finasteride 5 mg tablet 5 mg PO DAILY PROSTATE 01/26/23 08/22/24 History calcium carbonate 1,000 mg (5 x 200 mg calcium (500 01/22/24 08/22/24 Rx mg)) PO Q4H PRN PRN DYSPEPSIA/INDIGESTION #0 tabs acetaminophen 325 mg tablet 650 mg (2 x 325 mg) PO Q6H PRN PRN 08/29/24 Unknown Rx Pain 1-10 Or Fever >100.7 #0 tabs albuterol sulfate 2.5 mg/3 mL 2.5 mg (3 mL) inhalation Q2H PRN 08/29/24 Unknown Rx (0.083 %) solution for nebulization PRN SOB &/OR WHEEZING #0 mL nystatin 100,000 unit/gram topical 1 applic topical TID #0 grams 08/29/24 Unknown Rx powder ([facility]) metoprolol succinate 100 mg 100 mg PO QDAY heart 12/13/24 Unknown History tablet,extended release 24 hr oxycodone 5 mg tablet 5 mg PO BID PRN 12/13/24 Unknown History rivaroxaban 20 mg tablet (Xarelto) 20 mg PO QDAY afib 12/13/24 Unknown History sumatriptan succinate 50 mg tablet 50 mg PO ONCE PRN 12/13/24 Unknown History Allergy/AdvReac Type Severity Reaction Status Date / Time duloxetine (From Cymbalta) Allergy Severe Other Verified 01/22/25 14:30 Family History Mother Diabetes Thyroid disorder Father Diabetes Heart disease CABG x5 in his 50s COPD (chronic obstructive pulmonary disease) Hypertension Pulmonary fibrosis Other Arthritis Lupus Surgical History History of cardiac catheterization History of hand surgery History of esophagogastroduodenoscopy (EGD) History of cardioversion (~08/10/21) History of left heart catheterization (04/30/21) History of hernia repair Status post removal of thyroid nodule H/O gastric bypass Social History Smoking Status: Former smoker how long ago did patient quit smokin years ago second hand exposure: No alcohol intake: current alcohol intake frequency: a few times a week details: 4-6 cans (12 oz) of beer a couple times per week substance use type: marijuana caffeine: No what type of physical activity do you participate in: none frequency: decline to answer khloe/taoism: L[employer] seatbelt use: never ROS ROS ED ROS Narrative Constitutional: Denies fevers, chills, headaches, lightness, dizziness Eyes: Denies change in vision double vision blurry vision Cardiovascular: Denies chest pain Respiratory: Denies cough shortness of breath Abdomen: Denies abdominal pain : States that he thinks he may have a urinary tract infection Neurological: Denies numbness, wheeze, tingling Musculoskeletal: Complains of right knee pain and hip pain as noted above Skin: Denies any rashes or lesions EXAM Physical Exam Narrative Exam Narrative: General: Patient lying in bed rest comfortably did not appear to be in acute distress Head: Atraumatic, normocephalic Eyes: PERRL bilaterally, EOMI bilaterally, no conjunctival injection noted Neck: Soft, supple, trachea midline Cardiovascular: Patient tachycardic with regular rhythm Respiratory: Clear to auscultation bilaterally Abdomen: Soft, no tenderness to palpation Musculoskeletal: Patient has pain with attempted range of motion of the right knee as well as the right hip, although bony prominences palpated joints taken to full range of motion no pain elicited compartments are soft compressible Extremities: Radial pulses +2/4 in the bilateral extremities, +4/5 strength noted in the bilateral upper and the left lower extremity. +3/5 strength noted in the right lower extremity secondary to pain Neurological: Patient follow commands and that he was at [facility] years 2024 sensation grossly intact in bilateral lower extremities Skin: Warm, dry, tact no rashes or lesions noted chronic skin changes noted to bilateral lower extremities Const Vital Signs: 01/22/25 14:26 01/22/25 16:27 01/22/25 17:28 Temperature 98.4 F 97.9 F 98.3 F Temperature Source Oral Temporal Oral Pulse Rate 104 H 113 H 113 H Respiratory Rate 16 21 H 19 H Blood Pressure 115/70 101/66 105/77 Blood Pressure Mean 85 77 86 Pulse Ox 92 94 96 Oxygen Delivery Method Room Air Nasal Cannula Nasal Cannula Oxygen Flow Rate (L/min) 3 3 MDM MDM MDM Narrative Medical decision making narrative: Patient is a 64-year-old male who presented to the emergency department with chief complaint of right knee pain and hip pain after a fall. On the differential diagnose includes but not limited to tibial plateau fracture, distal femur fracture, hip fracture, intracranial hemorrhage, cervical spine fracture. Once workup is obtained reviewed he will be reevaluated. Patient be given [place] and Zofran. Patient's CBC reviewed showed no evidence leukocytosis white blood count normal 9.5, hemoglobin 0.4, plate count 301. Patient sodium was 136, hemoglobin was 4.1, creatinine 0.73. Patient's AST and ALT are 14 and [address] head and brain without contrast was reviewed showed no acute intracranial processes. Patient CT cervical spine reviewed showed no evidence of acute cervical spine fracture on this monitor limited examination. Patient's femur x-ray reviewed by him some by radiology which showed comminuted possible intra-articular distal femur fracture. Patient's x-ray of the right knee once again showed the distal femur fracture. Patient's pelvis x-ray reviewed by myself by radiology which showed no acute fracture or dislocation. Patient's tibia/fibula x-rays reviewed by myself by radiology which showed no tibial or fibular fracture noted once again the distal femur fracture was noted. Patient's EKG reviewed showed atrial flutter with a rate of 111 bpm. Did discuss case with on-call orthopedic surgeon Dr. Tse who is recommending a knee immobilizer CT scan of the right lower extremity and admission to medicine. Will discuss case with hospitalist for admission. Discussed results with Dr. Sherman who accept patient for admission. Patient notified is agreeable to plan all question concerns answered. Lab Data Labs: Laboratory Results - last 24 hr 01/22/25 14:33 WBC 9.5 RBC 4.41 L Hgb 11.4 L Hct 36.7 L MCV 83.2 MCH 25.9 L MCHC 31.1 L RDW Std Deviation 44.6 H RDW Coeff of Tasha 14.9 H Plt Count 301 MPV 11.1 Immature Gran % (Auto) 0.500 Neut % (Auto) 77.9 H Lymph % (Auto) 11.7 L Stokes % (Auto) 6.5 Eos % (Auto) 3.0 Baso % (Auto) 0.4 Absolute Neuts (auto) 7.4 Absolute Lymphs (auto) 1.11 Nucleated RBC % 0 Sodium 136 Potassium 4.1 Chloride 96 L Carbon Dioxide 28.6 Anion Gap 12 BUN 8 Creatinine 0.73 Estim Creat Clear Calc 183.89 Est GFR (MDRD) Non-Af 102 BUN/Creatinine Ratio 10.7 Glucose 133 H Calcium 8.0 Total Bilirubin 0.52 AST 14 ALT 5 Alkaline Phosphatase 141 H Total Protein 7.0 Albumin 3.3 L Globulin 3.7 Albumin/Globulin Ratio 0.9 Radiography Diagnostic Testing: Clinical Impression(s) from Imaging Studies Brain CT 01/22/25 14:51 IMPRESSION: No acute intracranial process. Reading Location: [facility] Cervical Spine CT 01/22/25 14:51 IMPRESSION: No evidence of acute cervical spine fracture on this moderately limited examination. Reading Location: [id number] Femur X-Ray 01/22/25 14:51 IMPRESSION: A comminuted, possibly intra-articular, FRACTURE of the distal shaft of the right femur is noted. Mild anterior dislocation of the major distal femoral fragment is seen, along with mild posterior angulation No tibial or fibular fracture site is seen. No additional fracture site is evident. Mild degenerative changes of the right knee are most apparent at the medial and patellofemoral compartments. No radiopaque foreign body is appreciated Reading Location: [id number] Knee X-Ray 01/22/25 14:51 IMPRESSION: A comminuted, possibly intra-articular, FRACTURE of the distal shaft of the right femur is noted. Mild anterior dislocation of the major distal femoral fragment is seen, along with mild posterior angulation No tibial or fibular fracture site is seen. No additional fracture site is evident. Mild degenerative changes of the right knee are most apparent at the medial and patellofemoral compartments. No radiopaque foreign body is appreciated Reading Location: [address] Pelvis X-Ray 01/22/25 14:51 IMPRESSION: Partially visualized inferior vena cava filter seen. Prominent degenerative changes are noted at the visualized lower lumbar spine. Mild sacroiliac joint degenerative changes are seen. Heterotopic ossification is seen medial to the proximal right femur. Mild bilateral hip joint degenerative changes are seen, without significant degree of joint space narrowing. No fracture or dislocation is seen on this solitary image. If clinical concern persists, short-term follow-up imaging may be obtained to rule out a currently occult fracture. Reading Location: [address] Tibia/Fibula X-Ray 01/22/25 15:45 IMPRESSION: A comminuted, possibly intra-articular, FRACTURE of the distal shaft of the right femur is noted. Mild anterior dislocation of the major distal femoral fragment is seen, along with mild posterior angulation No tibial or fibular fracture site is seen. No additional fracture site is evident. Mild degenerative changes of the right knee are most apparent at the medial and patellofemoral compartments. No radiopaque foreign body is appreciated Reading Location: [address] Discharge Plan Triage Chief Complaint: Lower Extremity Injury ED Provider: Stevie Pickett Dx/Rx/DC Orders Clinical Impression: Fall, Closed fracture of right distal femur Prescriptions: No Action sumatriptan succinate 50 mg tablet 50 mg PO ONCE PRN oxycodone 5 mg tablet 5 mg PO BID PRN metoprolol succinate 100 mg tablet extended release 24 hr 100 mg PO QDAY cyanocobalamin (vitamin B-12) 1,000 MCG/ML solution 1,000 mcg IM Q30D Patient Comments: GETS FIRST OF THE MONTH tamsulosin 0.4 mg Capsule 0.4 mg PO DAILY finasteride 5 mg tablet 5 mg PO DAILY Patient Comments: TAKE 1 TABLET BY MOUTH EVERY DAY doxepin 50 mg capsule 50 mg PO QHS Patient Comments: TAKE 1 CAPSULE BY MOUTH AT BEDTIME calcium carbonate 200 mg calcium (500 mg) Tablet,Chewable 1,000 mg PO Q4H PRN PRN (Reason: DYSPEPSIA/INDIGESTION) Qty: 0 0RF acetaminophen 325 mg Tablet 650 mg PO Q6H PRN PRN (Reason: Pain 1-10 Or Fever >100.7) Qty: 0 0RF albuterol sulfate 2.5 mg /3 mL (0.083 %) Solution For Nebulization 2.5 mg inhalation Q2H PRN PRN (Reason: SOB &/OR WHEEZING) Qty: 0 0RF nystatin [Nyamyc] 100,000 unit/gram Powder 1 applic topical TID Qty: 0 0RF Protocol: *Topical Application Instructions APPLICATION INSTRUCTIONS: apply to affected areas Xarelto 20 mg tablet 20 mg PO QDAY Rx Instructions: must administer with evening meal Primary Care Provider: Chalo Mclean Chi Referrals: Chalo Mclean Chi, MD [Primary Care Provider] - Print Language: [place] Islander Disposition Disposition: Acute Care [facility]
[2025-01-22] MEDS: Ondansetron ODT 4 MG Tablet PO (15:25)
[2025-01-22] MEDS: HYDROcodone Bitartrate/Apap 5/325 Tablet PO (15:26)
--- NOTE | 2025-01-22 15:45 | RAD_ITS ---
PROCEDURE: KNEE 1 OR 2 VIEWS; TIBIA FIBULA 2 VIEWS; FEMUR MIN 2 VIEWS 01/22/2025 REASON FOR EXAM: FALL; FALL, PAIN TECHNIQUE: Five view right femur, three-view right tibia and fibula, and two-view right knee (combined dictation). COMPARISON: Left hip and pelvis series 09/14/2018. RAD/Tibia & Fibula 2 Views IMPRESSION: A comminuted, possibly intra-articular, FRACTURE of the distal shaft of the rig ht femur is noted. Mild anterior dislocation of the major distal femoral fragment is seen, along with mild posterior angulation No tibial or fibular fracture site is seen. No additional fracture site is evident. Mild degenerative changes of the right knee are most apparent at the medial and patellofemoral compartments. No radiopaque foreign body is appreciated Reading Location: [id number]
--- NOTE | 2025-01-22 16:05 | EKG12_ITS ---
Test Reason : Blood Pressure : */* mmHG Vent. Rate : 111 BPM Atrial Rate : 250 BPM P-R Int : * ms QRS Dur : 104 ms QT Int : 324 ms P-R-T Axes : * -62 62 degrees QTcB Int : 440 ms Atrial flutter with variable A-V block Left axis deviation Inferior infarct , age undetermined Possible Anterior infarct , age undetermined Abnormal ECG Confirmed by DIANDRA BLOOM, BEE ([id number]), video effects editor MEHUL JIMENEZ ([id number]) on 01/27/2025 6:17:12 AM Referred By: TB Confirmed By: BEE JIM MD
[2025-01-22 16:32] LABS: Absolute Lymphocyte Count 1.11 X10^3/uL (0.83-4.51); Absolute Neutrophil Count 7.4 X10^3/uL (2.0-7.7); Basophil# 0.04 X10^3/uL; Basophil% 0.4 % (0-1); Eosinophil# 0.29 X10^3/uL; Hematocrit 36.7 % (40-54); Hemoglobin 11.4 g/dL (13.0-16.5); Lymphocyte # 1.11 X10^3/ul (0.83-4.51); Lymphocyte % 11.7 % (19-41); Mean Corp Hgb Conc 31.1 g/dL (32-36); Mean Corpuscular Hgb 25.9 pg (27.0-32.0); Mean Corpuscular Volume 83.2 fL (80-94); Mean Platelet Vol. 11.1 fl (6.2-12.0); Monocyte# 0.62 X10^3/uL; Monocyte% 6.5 % (0-10); NRBC Flagged by Analyzer 0 % (0-5); Neutrophil % 77.9 % (47-70); Platelet Count 301 K/mm3 (150-450); RBC Distribution Width CV 14.9 % (11.6-14.6); RBC Distribution Width SD 44.6 fl (35.1-43.9); Red Blood Count 4.41 M/mm3 (4.6-6.2); White Blood Count 9.5 K/mm3 (4.4-11.0)
[2025-01-22] MEDS: 0.9% Normal Saline (1000mL) 1,000 ML 999 ML IV (16:34)
[2025-01-22] MEDS: HYDROmorphone 0.5 MG/0.5 ML SYRINGE IV ×2 (16:45→20:36)
[2025-01-22 16:58] LABS: ALB/GLOB Ratio 0.9 RATIO (0.9-2.4); AST(SGOT) 14 U/L (<=37); Alanine Aminotransfer ALT/SGPT 5 U/L (<=46); Albumin, Serum 3.3 g/dL (3.4-4.8); Alkaline Phosphatase 141 U/L (40-129); Anion Gap 12 (5-15); BUN 8 mg/dL (4-19); BUN/Creat Ratio 10.7 RATIO (10-20); Carbon Dioxide 28.6 mmol/L (21.0-32.0); Chloride 96 mmol/L (98-108); Creatinine, Serum 0.73 mg/dL (0.70-1.20); EST Glomerular Filtration Rate 102 (>60); Estimated Creatinine Clearance 183.89 ml/min (50-250); Globulin 3.7 g/dL (2.2-4.2); Glucose 133 mg/dL (70-99); Potassium 4.1 mmol/L (3.3-5.1); Sodium Level 136 mmol/L (133-145); Total Bilirubin 0.52 mg/dL (0.00-1.30)
--- NOTE | 2025-01-22 17:10 | CT_ITS ---
PROCEDURE: EXTREMITY LOWER WITHOUT CONTRA 01/22/2025 REASON FOR EXAM: FEMUR FX TECHNIQUE: Axial CT images of the right lower extremity obtained without intravenous contrast. Coronal and Sagittal reconstruction series were provided. One or more dose reduction techniques were used (e.g., Automated exposure control, adjustment of the mA and/or kV according to patient size, use of iterative reconstruction technique RADIATION DOSE SUMMARY: CTDlvol: 70.3 mGy DLP: 5237 mGycm COMPARISON: Same day right knee and femur radiographs FINDINGS: There is a comminuted fracture of the distal femoral diaphysis and metaphysis, with approximately 2 cm of lateral translation of the lateral cortex fragment, and mild apex anterior angulation. No evidence of physeal extension. There is a small to moderate knee joint effusion. There is atrophy of the right lower extremity hamstring musculature. Mild soft tissue swelling. Enthesopathic changes near the right ischial tuberosity. There are degenerative changes of the right hip and right knee. Punctate calcification in the medial knee soft tissues. Prominent stool burden within the visualized colon. Fat containing right inguinal hernia. IVC filter is partially imaged. Aortic atherosclerosis. CT/Extremity Lower without Contra IMPRESSION: Comminuted and mildly displaced fracture of the right distal femur, without int ra-articular extension. Small to moderate knee joint effusion. Reading Location: [facility]
--- NOTE | 2025-01-22 19:11 | PCM.HP.STD ---
HPI - General General Date of Admission: 01/22/25 Date of Service: 01/22/25 Chief Complaint: Right leg pain HPI Narrative CARLIN SMITH, is a 64 M who presented to the emergency department at [facility] on 01/22/2025 with a chief complaint of right lower extremity pain around the knee. Patient states he recently fell out of his lift chair. He stated he was sleeping in his lift chair when he does quite frequently and his cat hit the button that made his lips very stand out and threw him out of the chair. He reported it just dumped him out of the chair onto the floor. He states he slept through that event and when he woke up on the floor and his left leg was actually folded under him and his right leg was straight however he had pain in his right leg. He tried to work through it over a couple days but had persistent pain which caused him to seek evaluation in the emergency department. He was recently and had prison and got home about a month ago. He has been battling recurrent UTIs with E. coli. He is on Xarelto at baseline and his last dose was on the a.m. of 01/22/2025. Vital signs on presentation showed a temperature of 98.4, heart rate 104, respiratory rate 16, blood pressure was 115/70 and pulse ox was 94% on his baseline 3 L nasal cannula. CBC was overtly unremarkable. He does have a chronic stable anemia with a hemoglobin on presentation of 11.4. Chemistry panel was unremarkable. Blood glucose was 133. Liver function was normal. CT of the brain was unremarkable for any acute intracranial process. CT of the cervical spine shows no evidence of acute spinal fracture. X-ray of the right knee, pelvis, and tibia/fibula show a comminuted possibly intra-articular fracture of the distal shaft of the right femur with mild anterior dislocation of the major distal femoral fragment along with mild posterior angulation. There is no fracture of the tibia or fibula and mild degenerative changes were noted in the right knee. Case was discussed with Dr. Tse who is on-call for orthopedic surgery and he requested a lower extremity CT be performed for preoperative planning. This was still pending at the time of admission. [facility] Medical History Dehydration Candidal skin infection Generalized weakness Unable to ambulate Complicated urinary tract infection Adult failure to thrive History of ESBL Klebsiella pneumoniae infection Chronic pain of both lower extremities Alcohol abuse Rheumatoid arthritis GERD (gastroesophageal reflux disease) Asthma Restless legs syndrome Atrial fibrillation Weakness Acute hyponatremia Internal impingement of right shoulder Right shoulder pain MRSA infection PTSD (post-traumatic stress disorder) Thyroid disease DVT (deep venous thrombosis) Back pain Syncope Blackout History of ulceration Sleep apnea CPAP (continuous positive airway pressure) dependence Bladder disease Dysphagia Urine retention Dysuria Wears glasses Wears dentures Anxiety Alcohol use Marijuana use Uses wheelchair Walker as ambulation aid Ambulates with cane Gout Arthritis Prostate disease Anemia Easy bruising Excessive bleeding History of hiatal hernia Urinary incontinence Gastric reflux Shortness of breath on exertion Former smoker Leg cramps History of edema History of rheumatic fever History of atrial fibrillation History of stress test History of Holter monitoring History of echocardiogram Cardiology follow-up encounter Ventricular ectopy Cardiomyopathy Paroxysmal atrial fibrillation Paroxysmal ventricular tachycardia HTN (hypertension) Cardiomyopathy Atrial fibrillation with rapid ventricular response Atrial fibrillation Debility CHI (closed head injury) Chronic atrial fibrillation Traumatic injury to skin or subcutaneous tissue History of DVT (deep vein thrombosis) Essential hypertension Atrial flutter History of sepsis Abdominal wall pain Left fibular fracture Rheumatic fever Morbid obesity Chronic pain BPH (benign prostatic hyperplasia) ADD (attention deficit disorder) Neuropathy Depression Calcium deficiency Vitamin B12 deficiency Fibromyalgia Home Medications ?Medication ?Instructions ?Recorded ?Last Taken ?Type cyanocobalamin (vitamin B-12) 1,000 mcg IM Q30D DEFICIENCY 05/28/18 01/21/25 History 1,000 mcg/mL injection solution tamsulosin 0.4 mg capsule 0.4 mg PO DAILY bladder 04/09/21 01/22/25 History doxepin 50 mg capsule 50 mg PO QHS sleep 01/26/23 01/21/25 History finasteride 5 mg tablet 5 mg PO DAILY PROSTATE 01/26/23 01/22/25 History calcium carbonate 1,000 mg (5 x 200 mg calcium (500 01/22/24 01/21/25 Rx mg)) PO Q4H PRN PRN DYSPEPSIA/INDIGESTION #0 tabs acetaminophen 325 mg tablet 650 mg (2 x 325 mg) PO Q6H PRN PRN 08/29/24 01/22/25 Rx Pain 1-10 Or Fever >100.7 #0 tabs albuterol sulfate 2.5 mg/3 mL 2.5 mg (3 mL) inhalation Q2H PRN 08/29/24 01/21/25 Rx (0.083 %) solution for nebulization PRN SOB &/OR WHEEZING #0 mL nystatin 100,000 unit/gram topical 1 applic topical TID #0 grams 08/29/24 01/22/25 Rx powder (Nyamyc) metoprolol succinate 100 mg 100 mg PO Q12H heart 12/13/24 01/22/25 History tablet,extended release 24 hr rivaroxaban 20 mg tablet (Xarelto) 15 mg PO QDAY afib 12/13/24 01/22/25 History amitriptyline 25 mg tablet 25 mg PO QHS antidep 01/22/25 01/21/25 History cyclobenzaprine 10 mg tablet 10 mg PO QHS leg cramps 01/22/25 01/21/25 History fluconazole 150 mg tablet 150 mg PO DAILY yeast 01/22/25 01/22/25 History furosemide 40 mg tablet 40 mg PO DAILY PRN swelling 01/22/25 01/19/25 History Allergy/AdvReac Type Severity Reaction Status Date / Time duloxetine (From Cymbalta) Allergy Severe Other Verified 01/22/25 14:30 Family History Mother Diabetes Thyroid disorder Father Diabetes Heart disease CABG x5 in his 50s COPD (chronic obstructive pulmonary disease) Hypertension Pulmonary fibrosis Other Arthritis Lupus Surgical History History of cardiac catheterization History of hand surgery History of esophagogastroduodenoscopy (EGD) History of cardioversion (~08/10/21) History of left heart catheterization (04/30/21) History of hernia repair Status post removal of thyroid nodule H/O gastric bypass Social History Smoking Status: Former smoker how long ago did patient quit smokin years ago second hand exposure: No alcohol intake: current alcohol intake frequency: a few times a week details: 4-6 cans (12 oz) of beer a couple times per week substance use type: marijuana caffeine: No what type of physical activity do you participate in: none frequency: decline to answer khloe/druze: [employer] seatbelt use: never ROS Constitutional Constitutional: Denies anorexia, change in weight, chills, fatigue, fever(s), malaise, night sweats, weakness or other Eyes Eyes: Denies blurry vision, change in eye color, change in vision, discharge from eye(s), double vision, erythema, eye pain, loss of vision or other ENT HEENT: Denies abnormal hearing, dysphagia, ear pain, epistaxis, headache(s), hearing loss, nasal congestion, nasal discharge, post nasal drip, sinus pressure, sore throat or other Cardiovascular Cardiovascular: Denies chest pain, claudication, dyspnea on exertion, edema, lightheadedness, orthopnea, palpitations, paroxysmal nocturnal dyspnea, rapid heart rate, syncope or other Respiratory/Chest Respiratory/Chest: Denies cough, dyspnea, excessive phlegm production, hemoptysis, productive cough, shortness of breath at rest, shortness of breath with exertion, wheezing or other Gastrointestinal Gastrointestinal: Denies abdominal pain, coffee ground emesis, constipation, diarrhea, dyspepsia, hematemesis, hematochezia, loose stools, melena, nausea, vomiting or other Genitourinary Genitourinary: Reports urinary frequency; Denies burning urination, difficulty urinating, dysuria, hematuria, nocturia, urinary hesitancy, urinary incontinence, urinary urgency or other Musculoskeletal Musculoskeletal: Reports back pain, joint pain, joint stiffness and joint swelling; Denies arthralgias, myalgias, neck pain or other Neurologic Neurologic: Reports abnormal gait; Denies abnormal speech, confusion, disequilibrium, dizziness, focal weakness, headache(s), numbness, paresthesias, seizure-like activity, seizures, syncope, tingling, tremor(s) or other Psychiatric Psychiatric: Denies anxiety, depression, homicidal ideation, suicidal ideation or other Endocrine Endocrinology: Denies change in body appearance, cold intolerance, excessive sweating, heat intolerance, polydipsia, polyuria or other Hematologic/Lymphatic Hematologic/Lymphatic: Reports easy bleeding and easy bruising; Denies anemia, lymphadenopathy or other Allergic/Immunologic Allergic/Immunologic: Denies rhinitis, hives, eczemia, asthma or other Vital Signs Vital Signs Vital Signs: 01/22/25 14:26 01/22/25 16:27 01/22/25 17:28 Temperature 98.4 F 97.9 F 98.3 F Temperature Source Oral Temporal Oral Pulse Rate 104 H 113 H 113 H Respiratory Rate 16 21 H 19 H Blood Pressure 115/70 101/66 105/77 Blood Pressure Mean 85 77 86 Pulse Ox 92 94 96 Oxygen Delivery Method Room Air Nasal Cannula Nasal Cannula Oxygen Flow Rate (L/min) 3 3 Weight Weight: 190.5 kg Body Mass Index (BMI) 53.8 Physical Exam Const alert, oriented x3, no apparent distress and well nourished; Negative for average body habitus or healthy appearing Constitutional Narrative: Supralip morbidly obese, middle-aged, white male, lying in bed flat, appears comfortable and nontoxic at this time, talkative, nursing at bedside General Appearance: cooperative HEENT normocephalic, head/scalp atraumatic, hearing grossly normal bilaterally and moist oral mucous membranes HEENT Narrative: Mallampati 4, no thrush Eyes conjunctivae normal Eyes Narrative: No scleral icterus Neck supple Neck Narrative: Neck is short and thick, trachea is midline Resp normal respiratory effort, no retractions, no use of accessory muscles and clear to auscultation bilaterally Resp Narrative: Distant diffusely diminished but clear Auscultation: Negative for rales, rhonchi or wheezes Cardio regular rate, regular rhythm, S1 normal heart sound, S2 normal heart sound, no murmurs, no rub, no gallops and no clicks GI normal to inspection, nondistended, normoactive bowel sounds, soft to palpation and non-tender Extremity Extremity Narrative: Chronic trace bilateral lower extremity edema, no cyanosis or clubbing, right lower extremity is externally rotated, brace on right knee Skin Skin Narrative: Bilateral lower extremities with skin consistent with chronic venous stasis Neuro oriented x3 and no focal motor deficits Speech: speech normal Psych affect normal Psych Narrative: Very pleasant, very talkative, interacts appropriately Results Lab / Micro Data 01/22/25 14:33 01/22/25 14:33 Labs: Laboratory Results - last 24 hr 01/22/25 14:33: WBC 9.5, RBC 4.41 L, Hgb 11.4 L, Hct 36.7 L, MCV 83.2, MCH 25.9 L, MCHC 31.1 L, RDW Std Deviation 44.6 H, RDW Coeff of Tasha 14.9 H, Plt Count 301, MPV 11.1, Immature Gran % (Auto) 0.500, Neut % (Auto) 77.9 H, Lymph % (Auto) 11.7 L, [place] % (Auto) 6.5, Eos % (Auto) 3.0, Baso % (Auto) 0.4, Absolute Neuts (auto) 7.4, Absolute Lymphs (auto) 1.11, Nucleated RBC % 0, Sodium 136, Potassium 4.1, Chloride 96 L, Carbon Dioxide 28.6, Anion Gap 12, BUN 8, Creatinine 0.73, Estim Creat Clear Calc 183.89, Est GFR (MDRD) Non-Af 102, BUN/Creatinine Ratio 10.7, Glucose 133 H, Calcium 8.0, Total Bilirubin 0.52, AST 14, ALT 5, Alkaline Phosphatase 141 H, Total Protein 7.0, Albumin 3.3 L, Globulin 3.7, Albumin/Globulin Ratio 0.9 Imaging Radiology Impression Brain CT 01/22/25 14:51 IMPRESSION: No acute intracranial process. Reading Location: [facility] Cervical Spine CT 01/22/25 14:51 IMPRESSION: No evidence of acute cervical spine fracture on this moderately limited examination. Reading Location: [id number] Femur X-Ray 01/22/25 14:51 IMPRESSION: A comminuted, possibly intra-articular, FRACTURE of the distal shaft of the right femur is noted. Mild anterior dislocation of the major distal femoral fragment is seen, along with mild posterior angulation No tibial or fibular fracture site is seen. No additional fracture site is evident. Mild degenerative changes of the right knee are most apparent at the medial and patellofemoral compartments. No radiopaque foreign body is appreciated Reading Location: [id number] Knee X-Ray 01/22/25 14:51 IMPRESSION: A comminuted, possibly intra-articular, FRACTURE of the distal shaft of the right femur is noted. Mild anterior dislocation of the major distal femoral fragment is seen, along with mild posterior angulation No tibial or fibular fracture site is seen. No additional fracture site is evident. Mild degenerative changes of the right knee are most apparent at the medial and patellofemoral compartments. No radiopaque foreign body is appreciated Reading Location: [address] Pelvis X-Ray 01/22/25 14:51 IMPRESSION: Partially visualized inferior vena cava filter seen. Prominent degenerative changes are noted at the visualized lower lumbar spine. Mild sacroiliac joint degenerative changes are seen. Heterotopic ossification is seen medial to the proximal right femur. Mild bilateral hip joint degenerative changes are seen, without significant degree of joint space narrowing. No fracture or dislocation is seen on this solitary image. If clinical concern persists, short-term follow-up imaging may be obtained to rule out a currently occult fracture. Reading Location: [address] Tibia/Fibula X-Ray 01/22/25 15:45 IMPRESSION: A comminuted, possibly intra-articular, FRACTURE of the distal shaft of the right femur is noted. Mild anterior dislocation of the major distal femoral fragment is seen, along with mild posterior angulation No tibial or fibular fracture site is seen. No additional fracture site is evident. Mild degenerative changes of the right knee are most apparent at the medial and patellofemoral compartments. No radiopaque foreign body is appreciated Reading Location: [address] Assessment & Plan Assessment/Plan (1) Closed fracture of right distal femur: (2) Fall: PLAN: Plan Closed fracture of the right distal femur status post mechanical fall - Nonweightbearing - Awaiting CT for assistance with surgical planning - Hold Xarelto with last dose being on a.m. of 01/22/2025 - Anticipate surgery will not be until at least 01/24/2025 but will make n.p.o. after midnight just in case - Check chest x-ray and EKG in a.m. for assistance with surgical clearance - Scheduled Tylenol 1 g every 8 hours - As needed oxycodone - As needed morphine - Can continue home muscle relaxants -PT/OT to evaluate postoperatively for rehab needs at discharge - Highly suspect patient will need discharge to SNF so will consult case management/social work - Consult orthopedic surgery-Case was discussed with Dr. Tse by the emergency department physician prior to admission Chronic hypoxic respiratory failure - At baseline patient requires 3 L supplemental oxygen - Sats stable on this currently - As needed albuterol nebulizers Paroxysmal atrial fibrillation - Continue beta-gali - Hold Xarelto - Patient has upcoming appointment in July for consideration for ablation DARLIN - Patient uses CPAP and is encouraged to remain as an home unit tomorrow - will utilize our equipment tonight with 8 cm of water - Would recommend extubation to BiPAP or CPAP after surgery Nonischemic cardiomyopathy/essential hypertension - Continue home metoprolol - Continue home Lasix as needed BPH with obstruction - Continue Flomax - Continue Proscar Fibromyalgia - Continue home medications Depression/anxiety - Continue home medications Morbid obesity - BMI is 52 - Recommend weight loss - Complicates treatment, prognosis, outcomes DVT prophylaxis - SCDs for now - Start Xarelto when surgery okay with reinitiating CODE STATUS -Full code is verified Charges/Coding Visit Charges Inpatient E&M: 34965 Init Hosp L2
[2025-01-22] MEDS: 0.9% Saline Lock 10 ML Syringe IV (20:37)
[2025-01-22] MEDS: Nystatin Powder 15gm Bottle 1 APPLIC TOPICAL (21:17)
[2025-01-22] MEDS: cycloBENZAPRine HCl 10 MG Tablet PO (21:18)
[2025-01-22] MEDS: Metoprolol(XL)Succ 100 MG Tablet PO (21:18)
[2025-01-22] MEDS: Acetaminophen 500 MG Tablet 1000 MG PO (21:18)
[2025-01-22] MEDS: Amitriptyline 25 MG Tablet PO (21:18)
[2025-01-22] MEDS: oxyCODONE 5 MG Tablet PO (21:36)
--- OUTSIDE RECORDS SUMMARY | 2025-01-22 21:47 | XMS RPT_ITS | CCD ---
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 Chalo Mclean Chi Primary Care Provider Dr. Chalo Mclean Chi Referring Provider Dr. Chilo Farris Attending Provider Armand SIGN ERECTOR, SIGN ERECTOR-C Linda Newsome Attending Provider [phone] Armand SIGN ERECTOR, SIGN ERECTOR-C Linda E Other Provider 1([facility] )-[phone] Armand SIGN ERECTOR, SIGN ERECTOR-C Linda E Referring Provider Ravi SIGN ERECTOR, SIGN ERECTOR-C Mitchell Betancur Attending Provider Kasia SIGN ERECTOR, SIGN ERECTOR-C Fidelina Attending Provider [phone] Dr. Renan Bruce Attending Provider Dr. Ankit Ornelas Attending Provider 1([facility])-[phone] Kavon Gallardo Attending Provider 1([facility])[phone] Ankit Ornelas Referring Provider 1([facility])-[phone] Chalo Mclean Chi Primary Care Provider Dr. Chalo Mclean Chi Referring Provider Dr. Ankit Ornelas Attending Provider 1([facility])-[phone] Kavon Gallardo Attending Provider Dr. Ankit Ornelas Referring Provider 1([facility])-[address] Chilo Farris Attending Provider 1([facility])[phone] Priscilla SIGN ERECTOR, SIGN ERECTOR-C Karen Beyer Attending Provider [phone] FriendDr. Damon Attending Provider [phone] Dr. Nelson Munoz Other Provider Vinay, Dr. Chalo Gomez Primary Care Provider Vinay, Dr. Chalo Gomez Referring Provider Vinay, Dr. Chalo Gomez Primary Care Provider Vinay, Dr. Chalo Gomez Referring Provider MD Nabil Eldridge Attending Provider Dr. Boaz Lopez Attending Provider Dr. Semaj Roberts Attending Provider Friend, Dr. Damon Referring Provider Ravi SIGN ERECTOR, SIGN ERECTOR-C Mitchell Betancur Attending Provider Vinay, Dr. Chalo Gomez Primary Care Provider Vinay, Dr. Chalo Gomez Referring Provider Dr. Teofilo Amaya Emergency Provider Dr. Shobha Gomez Admit Provider Dr. Shobha Gomez Attending Provider Dr. Shobha Gomez Other Provider Dr. Chilo Farris Attending Provider Patrick SIGN ERECTOR, SIGN ERECTOR-C Cherelle Attending Provider MIGUEL BLOOM, JAZMIN Attending Unavailable VINAY BLOOM, DR RAMIREZ Primary Care Unavailable LIZZIE BLAIR-MIGRATORY WORKER, ANNEL Martin Attending Un available ODETTE ESPINOSA MD Primary Care Unava leelee Mclean MD, Dr. Chalo Gomez Primary Care Provider [phone] Roz BLOOM, Dr. Bullard Emergency Provider Suzie BLOOM, Dr. Sherley Puckett Admit Provider Suzie BLOOM, Dr. Sherley Puckett Other Provider [phone] Bethany RIOS, Dr. Cowan Attending Provider [phone] Suzie BLOOM, Dr. Sherley Puckett Attending Provider Bethany RIOS, Dr. Cowan Other Provider Dr. Chalo Mclean MD, Chi Referring Provider [phone] Cherelle Farah Attending Provider [phone] Vinay BLOOM, Dr. Chalo Gomez Attending Provider [phone] Vinya, Chalo Chi Primary Care Unavailable Agyepong, Sunil Consulting Unavailable Agyepong, Sunil Admitting Unavailable Jobrodie Ankit Attending Unavailable Mosteller, Pérez Consulting Unavailable Jopperi, Ankit Consulting Unavailable Koram, Sherley Lavern Attending Unavailable Koram, Sherley Lavern Admitting Unavailable Koram, Sherley Lavern Consulting Unavailable Vinay, Chalo Chi Primary Care Unavailable Vinay, Chalo Chi Primary Care Unavailable John, Boynton Attending Unavailable John, Boynton Referring Unavailable Pérez Hoang Attending Unavailable Vinay, Chalo Chi Attending Unavailable Vinay, Chalo Chi Referring Unavailable Vinay, Chalo Chi Primary Care Unavailable Vinay, Chalo Chi Attending Unavailable Vinay, Chalo Chi Primary Care Unavailable Vinay, Chalo Chi Attending Unavailable Vinay, Chalo Chi Referring Unavailable Vinay, Chalo Chi Primary Care Unavailable Bhavik Aguilaric Attending Unavailable Vinay, Chalo Chi Primary Care Unavailable Agyepong, Sunil Consulting Unavailable Agyepong, Sunil Admitting Unavailable eller, Pérez Consulting Unavailable Semaj Roberts Attending Unavailabl e Vinay, Chalo Chi Primary Care Unavailable Koram, Sherley Lavern Consulting Unavailable Koram, Sherley Lavern Admitting Unavailable Vinay, Chalo Chi Primary Care Unavailable Chapo Sims Attending Unavailable Agyepong, Sunil Attending Unavailable Chapo Sims Attending Unavailable Chapo Sims Consulting Unavailable Vinay, Chalo Chi Referring Unavailable Vinay, Chalo Chi Primary Care Unavailable Cherelle Nguyen NP Attending Unavailable Allergies Allergy Classification Reported Allergen(s) Allergy Type Date of Onset Reaction(s) Facility (20 sources) DULoxetine Drug Allergy 02-24-2022 Other [facility] Comment on above: SERATONIN SYNDROME (1 source) DULoxetine Drug Allergy 12-13-2024 [facility] Repository Medications Current Medications Medication Drug Class(es) Dates Sig (Normalized) Sig (Original) acetaminophen 325 mg oral tablet (20 sources) Start: 08-01-2019 End: 08-29-2024 Acetaminophen 325 mg Tablet Active 650 mg PO EVERY 6 HOURS NEEDED as needed for Pain 1-10 Or Fever >100.7 0 August 29, 2024 1:00am Start: 08-01-2019 take 650 mg by mouth every six hours as needed Acetaminophen Active 650 MG PO EVERY 6 HOURS NEEDED August 01, 2019 1:00am Start: 09-14-2018 End: 09-19-2018 Acetaminophen 500 MG tablet Discontinued 1000 mg PO NEEDED as needed for Pain September 14, 2018 1:00am September 19, 2018 9:07am Start: 09-14-2018 End: 09-19-2018 Acetaminophen Discontinued 1 000 MG PO NEEDED September 14, 2018 1:00am September 19, 2018 9:07am albuterol 0.83 mg/ml inhalation solution (20 sources) beta2-Adrenergic Agonist Start: 08-29-2024 take 2.5 mg by inhalation every two hours as needed for wheezing Albuterol Sulfate 2.5 mg /3 mL (0.083 %) Solution For Nebulization Active 2.5 mg INHALATION EVERY 2 HOURS NEEDED as needed for SOB &/OR WHEEZING 0 August 29, 2024 1:00am Start: 03-30-2018 End: 08-29-2024 Albuterol Sulfate 1 INHALER inhaler Discontinued 2 NMA INHALATION EVERY 6 HOURS NEEDED as needed for Sob &/Or Wheezing March 30, 2018 12:00am August 29, 2024 2:18pm Start: 03-30-2018 take 1 puff(s) by in halation every six hours as needed Albuterol Sulfate Active 2 PUFF INHALATION EVERY 6 HOURS NEEDED March 29, 2018 11:00pm Start: 03-30-2018 take 1 puff(s) by in halation every six hours as needed Albuterol Sulfate Active 2 PUFF INHALATION EVERY 6 HOURS NEEDED March 30, 2018 12:00am Blood Pressure Monitor (1 source) Start: 12-27-2022 Blood Pressure Monitor Active 0 .Route .MEDSUPPLY 1 December 27, 2022 12:59pm As directed calcium carbonate 500 mg chewable tablet (1 source) Start: 01-22-2024 take 1 tablet by mouth every four hours as needed Calcium Carbonate 200 mg calcium (500 mg) Tablet,Chewable Active 1000 mg PO EVERY 4 HOURS NEEDED as needed for DYSPEPSIA/INDIGESTION 0 January 22, 2024 12:00am cholecalciferol 0.05 mg oral capsule (20 sources) Vitamin D Start: 07-30-2019 take 2000 [IU] by mouth once daily Cholecalciferol (Vitamin D3) Active 2000 UNIT PO DAILY July 30, 2019 1:00am Start: 06-20-2013 End: 07-11-2013 take 1 tablet by mouth every week Cholecalciferol (Vitamin D3) 1,000 UNIT Tab.Chew Discontinued 1000 U PO EVERY WEEK June 20, 2013 12:00am July 11, 2013 10:01am doxepin hydrochloride 50 mg oral capsule (20 sources) Tricyclic Antidepressant Start: 01-26-2023 take 1 capsule by mouth at bedtime Doxepin 50 mg capsule Active 50 mg PO AT BEDTIME January 26, 2023 12:00am Start: 08-18-2020 End: 06-06-2022 take 1 capsule by mouth at bedtime Doxepin 25 mg capsule Discontinued 25 mg PO AT BEDTIME August 18, 2020 1:00am June 06, 2022 8:26am finasteride 5 mg oral tablet (6 sources) 5-alpha Reductase Inhibitor Start: 01-26-2023 take 1 tablet by mouth once daily Finasteride 5 mg tablet Active 5 mg PO DAILY January 26, 2023 12:00am hydroCHLOROthiazide 25 mg / valsartan 320 mg oral tablet (20 sources) Thiazide Diuretic, Angiotensin 2 Receptor Remi Start: 03-30-2022 take 1 tablet by mouth once daily Valsartan-Hydroc hlorothiazide Active 1 TABLET PO DAILY March 30, 2022 12:00am Start: 04-09-2021 End: 04-08-2022 Valsartan-Hydrochlorothiazid e 160-12.5 mg Tablet Discontinued 1 {tbl} PO DAILY April 09, 2021 12:00am April 08, 2022 2:16pm Start: 04-09-2021 End: 04-08-2022 take 1 tablet by mouth once daily Valsartan-Hydrochlorothiazide Discontinu ed 1 TABLET PO DAILY April 09, 2021 12:00am April 08, 2022 2:16pm metOLazone 2.5 mg oral tablet (1 source) Thiazide-like Diuretic Start: 01-11-2023 Metolazone Active 2.5 MG PO .COMPLEX 2 January 11, 2023 12:00am 2.5 mg orally 1 tablet on 01/12 am and 1 tablet on 01/19 am; 24 hr metoprolol succinate 100 mg extended release oral tablet (20 sources) beta-Adrenergic Remi Start: 12-13-2024 take 1 tablet by mouth once daily Metoprolol Succinate 100 mg tablet extended release 24 hr Active 100 mg PO daily December 13, 2024 9:46am Start: 09-12-2024 End: 12-13-2024 take 1 tablet by mouth twice daily Metoprolol Succinate 100 mg tablet extended release 24 hr Discontinued 100 mg PO TWICE A DAY 180 September 12, 2024 3:45pm December 13, 2024 9:47am Start: 01-22-2024 End: 09-12-2024 take 1 tablet by mouth twice daily Metoprolol Succinate 50 mg tablet extended release 24 hr Discontinued 50 mg PO TWICE A DAY 180 July 23, 2024 4:33pm September 12, 2024 3:46pm Start: 03-17-2023 End: 01-22-2024 take 1 tablet by mouth twice daily Metoprolol Succinate 100 mg tablet extended release 24 hr Discontinued 100 mg PO TWICE A DAY 60 March 17, 2023 11:22am January 22, 2024 3:29pm Start: 03-08-2023 End: 03-17-2023 take 1 tablet by mouth twice daily Metoprolol Succinate 50 mg tablet extended release 24 hr Discontinued 50 mg PO TWICE A DAY 60 March 08, 2023 12:00am March 17, 2023 11:23am Start: 01-26-2023 End: 03-08-2023 take 1 tablet by mouth three times daily Metoprolol Tartrate 50 mg tablet Discontinued 50 mg PO THREE TIMES A DAY January 26, 2023 11:28am March 08, 2023 9:58am Start: 12-27-2022 End: 01-26-2023 Metoprolol Tartrate 50 mg ta blet Discontinued 75 mg PO TWICE A DAY 270 90 December 27, 2022 10:15am January 26, 2023 11:28am Start: 12-27-2022 End: 01-26-2023 take 75 mg by mouth twice daily Metoprolol Tartrate Di scontinued 75 MG PO TWICE A DAY 270 90 December 27, 2022 10:15am January 26, 2023 11:28am Start: 12-27-2022 End: 05-09-2023 take 3 tablets by mouth once daily Metoprolol Tartrate 50 mg tablet Discontinued 150 mg PO DAILY December 27, 2022 9:28am December 27, 2022 10:16am Start: 12-27-2022 End: 12-27-2022 take 150 mg by mouth once daily Metoprolol Tartrate Di scontinued 150 MG PO DAILY December 27, 2022 9:28am December 27, 2022 10:16am Start: 06-06-2022 End: 12-27-2022 take 1 tablet by mouth three times daily Metoprolol Tartrate 50 mg tablet Discontinued 50 mg PO THREE TIMES A DAY December 26, 2022 9:59am December 27, 2022 9:30am Start: 09-28-2021 End: 05-03-2022 take 2 tablets by mouth three times daily Metoprolol Tartrate 75 mg tablet Discontinued 150 mg PO THREE TIMES A DAY September 28, 2021 11:37am May 03, 2022 11:22am Start: 09-28-2021 End: 05-03-2022 take 150 mg by mouth three times daily Metoprolol Tartrate Discontinued 150 MG PO THREE TIMES A DAY September 28, 2021 11:37am May 03, 2022 11:22am Start: 04-13-2021 End: 09-28-2021 take 2 tablets by mouth twice daily Metoprolol Tartrate 75 mg tablet Discontinued 150 mg PO TWICE A DAY April 13, 2021 12:00am September 28, 2021 11:39am Start: 04-13-2021 End: 09-28-2021 take 150 mg by mouth twice daily Metoprolol Tartrate Discontinued 150 MG PO TWICE A DAY April 13, 2021 12:00am September 28, 2021 11:39am Start: 04-09-2021 End: 04-13-2021 take 1 tablet by mouth twice daily Metoprolol Tartrate 25 mg Tablet Discontinued 25 mg PO TWICE A DAY April 09, 2021 12:00am April 13, 2021 3:55pm Start: 01-15-2020 End: 08-18-2020 take 1 tablet by mouth twice daily Metoprolol Tartrate 25 MG tablet Discontinued 25 mg PO TWICE A DAY January 15, 2020 12:00am August 18, 2020 3:16pm Start: 03-28-2019 End: 08-01-2019 Metoprolol Tartrate 50 mg ta blet Discontinued 25 mg PO TWICE A DAY March 28, 2019 1:16pm August 01, 2019 2:50pm Hold if systolic blood pressure less than 90 or heart rate less than 60/M Start: 03-28-2019 End: 08-01-2019 take 25 mg by mouth twice daily Metoprolol Tartrate Di scontinued 25 MG PO TWICE A DAY March 28, 2019 1:16pm August 01, 2019 2:50pm Hold if systolic blood pressure less than 90 or heart rate less than 60/M Start: 03-30-2018 End: 03-28-2019 take 1 tablet by mouth twice daily Metoprolol Tartrate 50 MG tablet Discontinued 50 mg PO TWICE A DAY 0 February 21, 2019 11:25am March 28, 2019 1:18pm Hold if systolic blood pressure less than 90 or heart rate less than 60/M Start: 06-20-2013 End: 07-11-2013 take 1 tablet by mouth once daily Metoprolol Tartrate 50 MG tablet Discontinued 50 mg PO DAILY June 20, 2013 12:00am July 11, 2013 10:01am nystatin 100 unt/mg topical powder (20 sources) Polyene Antifungal Start: 08-29-2024 Nystatin (N yamyc) 100,000 unit/gram Powder Active 1 NMA TOPICAL THREE TIMES A DAY 0 August 29, 2024 1:00am Please contact the information source for Protocol details. Start: 09-19-2018 End: 02-13-2020 Nystatin 1 APPLIC bottle Dis continued 1 NMA TOPICAL TWICE A DAY July 30, 2019 6:23pm February 13, 2020 11:32am Please contact the information source for Protocol details. Start: 09-19-2018 End: 02-13-2020 Nystatin Discontinued 1 APPL IC TOPICAL TWICE A DAY July 30, 2019 6:23pm February 13, 2020 11:32am oxyCODONE hydrochloride 5 mg oral tablet (20 sources) Opioid Agonist Start: 12-13-2024 take 1 tablet by mouth twice daily as needed Oxycodone 5 mg tablet Active 5 mg PO TWICE A DAY as needed December 13, 2024 12:00am Start: 01-22-2024 End: 08-23-2024 take 1 tablet by mouth every six hours as needed for pain Oxycodone 5 mg Tablet Discontinued 5 mg PO EVERY 6 HOURS NEEDED as needed for Pain Score 6-10 12 3 January 22, 2024 August 23, 2024 4:15pm Start: 09-19-2018 End: 09-26-2018 take 2 tablets by mouth every six hours as needed for pain Oxycodone 5 MG tablet Discontinued 10 mg PO EVERY 6 HOURS NEEDED as needed for Severe Pain (6-10/10) 40 7 September 19, 2018 1:00am September 25, 2018 1:00am September 26, 2018 1:09am Start: 09-19-2018 End: 09-26-2018 take 10 mg by mouth every six hours as needed Oxycodone Discontinued 10 MG PO EVERY 6 HOURS NEEDED 40 7 September 19, 2018 1:00am September 26, 2018 1:09am rivaroxaban 20 mg oral tablet (20 sources) Factor Xa Inhibitor Start: 12-13-2024 take 1 tablet by mouth once daily at dinner Rivaroxaban (Xarelto) 20 mg tablet Active 20 mg PO daily December 13, 2024 9:46am must administer with evening meal Start: 08-23-2024 End: 12-13-2024 take 1 tablet by mouth at dinner Rivaroxaban (Xarelto) 20 mg tablet Discontinued 20 mg PO Every 3 Days August 23, 2024 1:00am December 13, 2024 9:47am must administer with evening meal Start: 06-06-2022 End: 08-23-2024 take 1 tablet by mouth once daily at dinner Rivaroxaban (Xarelto) 20 mg tablet Discontinued 20 mg PO DAILY December 27, 2022 10:17am August 23, 2024 4:20pm must administer with evening meal Start: 02-21-2019 End: 05-03-2022 take 1 tablet by mouth once daily Rivaroxaban 20 mg tablet Discontinued 20 mg PO DAILY August 04, 2021 8:53am May 03, 2022 11:22am Start: 09-19-2018 End: 02-21-2019 take 1 tablet by mouth once daily Rivaroxaban 10 MG tablet Discontinued 10 mg PO DAILY September 19, 2018 1:00am February 21, 2019 11:21am SUMAtriptan 50 mg oral tablet (1 source) Serotonin-1b and Serotonin-1d Receptor Agonist Start: 12-13-2024 take 1 tablet by mouth once as needed Sumatriptan Succinate 50 mg tablet Active 50 mg PO ONCE as needed December 13, 2024 12:00am tamsulosin hydrochloride 0.4 mg oral capsule (20 sources) alpha-Adrenergic Remi Start: 04-09-2021 take 1 capsule by mouth once daily Tamsulosin 0.4 mg Capsule Active 0.4 mg PO DAILY April 09, 2021 12:00am Start: 09-19-2018 End: 08-18-2020 take 1 capsule by mouth once daily Tamsulosin 0.4 MG capsule Discontinued 0.4 mg PO DAILY@1730 July 30, 2019 6:23pm August 18, 2020 3:19pm vitamin b12 1 mg/ml injectable solution (20 sources) Vitamin B12 Start: 05-28-2018 inject 1000 ug by intramuscular injection every 30 days Cyanocobalamin (Vitamin B-12) 1,000 MCG/ML solution Active 1000 ug IM Q30D May 28, 2018 12:00am Start: 05-28-2018 inject 1000 ug by in tramuscular injection every 30 days Cyanocobalamin (Vitamin B-12) Active 1000 MCG IM Q30D May 28, 2018 12:00am Completed/Discontinued Medications Medication Drug Class(es) Dates Sig (Normalized) Sig (Original) acetaminophen 250 mg / aspirin 250 mg / caffeine 65 mg oral tablet (20 sources) Platelet Aggregation Inhibitor, Nonsteroidal Anti-inflammatory Drug, Central Nervous System Stimulant, Methylxanthine Start: 07-30-2019 End: 08-01-2019 Aspirin-Acetaminop hen-Caffeine 1 EACH tablet Discontinued 1 {tbl} PO DAILY NEEDED as needed for Pain Or Fever July 30, 2019 1:00am August 01, 2019 2:50pm Start: 07-30-2019 End: 08-01-2019 take 1 tablet by mouth once daily as needed Uetabpz-Tkatjerrceqex-Aavsxtdv Discontin ued 1 TABLET PO DAILY NEEDED July 30, 2019 1:00am August 01, 2019 2:50pm allopurinol 100 mg oral tablet (20 sources) Xanthine Oxidase Inhibitor Start: 03-28-2019 End: 03-30-2022 take 1 tablet by mouth once daily Allopurinol 100 mg tablet Discontinued 100 mg PO DAILY March 28, 2019 12:00am March 30, 2022 2:48pm alpha lymphatic acid (20 sources) Start: 03-30-2022 End: 01-22-2024 alpha lymphatic acid Discontinued 1 NMA IV MONTHLY March 30, 2022 12:00am January 22, 2024 3:28pm On Hold: UNBLE TO GET INTO THE OFFICE BUILDING, HAS AN UPHILL GRADE Start: 03-30-2022 take 1 dose intraven ously every month alpha lymphatic acid Active 1 DOSE IV MONTHLY March 29, 2022 11:00pm Start: 03-30-2022 take 1 dose intraven ously every month alpha lymphatic acid Active 1 DOSE IV MONTHLY March 30, 2022 12:00am Start: 03-30-2022 alpha lymphati c acid Active IV MONTHLY March 30, 2022 12:00am ALPRAZolam 0.25 mg oral tablet (20 sources) Benzodiazepine Start: 06-20-2013 End: 07-11-2013 Alprazolam 0.25 MG tablet Discontinued 4 TIMES DAILY June 20, 2013 12:00am July 11, 2013 10:01am Start: 06-20-2013 End: 07-11-2013 take 1 tablet by mouth four times daily Alprazolam 0.5 MG tablet Discontinued 0.5 mg PO 4 TIMES DAILY June 20, 2013 12:00am July 11, 2013 10:01am amitriptyline hydrochloride 25 mg oral tablet (1 source) Tricyclic Antidepressant Start: 08-23-2024 End: 12-13-2024 take 1 tablet by mouth once daily Amitriptyline 25 mg tablet Discontinued 25 mg PO DAILY August 23, 2024 1:00am December 13, 2024 9:27am amoxicillin 875 mg / clavulanate 125 mg oral tablet (20 sources) Penicillin-class Antibacterial Start: 06-20-2013 End: 07-11-2013 Amoxicillin-Pot Clavulanate 875 MG tablet Discontinued 1 {tbl} PO Q12H June 20, 2013 12:00am July 11, 2013 10:01am baclofen 10 mg oral tablet (20 sources) gamma-Aminobutyric Acid-ergic Agonist Start: 03-30-2018 End: 02-21-2019 take 1 tablet by mouth twice daily Baclofen 10 MG tablet Discontinued 10 mg PO TWICE A DAY March 30, 2018 12:00am February 21, 2019 11:26am Blood Pressure Cuff (7 sources) Start: 12-27-2022 End: 12-27-2022 Blood Pressure Cuff Discontinued 0 .Route .MEDSUPPLY December 27, 2022 12:00am December 27, 2022 12:59pm As directed calcium carbonate 600 mg / cholecalciferol 125 unt oral tablet (20 sources) Vitamin D Start: 09-19-2018 End: 02-13-2020 Calcium Carbonate-Vitamin D3 Discontinued 1 EACH PO TWICE DAILY WITH MEALS July 30, 2019 6:23pm February 13, 2020 11:27am calcium carbonate 800 mg / famotidine 10 mg / magnesium hydroxide 165 mg chewable tablet (20 sources) Histamine-2 Receptor Antagonist Start: 07-30-2019 End: 02-13-2020 take 1 tablet by mouth every six hours as needed Famotidine-Ca Carb-Mag Hydrox 1 EACH tablet,chewable Discontinued 3 {tbl} PO EVERY 6 HOURS NEEDED as needed for acid July 30, 2019 1:00am February 13, 2020 11:32am Start: 07-30-2019 End: 02-13-2020 take 3 tablets by mouth every six hours as needed Famotidine-Ca Carb-Mag Hydrox Discontinued 3 TABLET PO EVERY 6 HOURS NEEDED July 30, 2019 1:00am February 13, 2020 11:32am Calcium Carbonate / vitamin D3 (2 sources) Start: 07-30-2019 End: 02-13-2020 Calcium Carbonate-Vitamin D3 Discontinued 1 EACH PO TWICE DAILY WITH MEALS July 30, 2019 6:23pm February 13, 2020 11:27am Start: 09-19-2018 End: 07-30-2019 Calcium Carbonate-Vitamin D3 Discontinued 1 EACH PO TWICE DAILY WITH MEALS September 19, 2018 1:00am July 30, 2019 6:23pm Calcium Carbonate-Vitamin D3 1 EACH tablet (2 sources) Start: 07-30-2019 End: 02-13-2020 Calcium Carbonate-Vitamin D3 1 EACH tablet Discontinued 1 NMA PO TWICE DAILY WITH MEALS July 30, 2019 6:23pm February 13, 2020 11:27am Start: 09-19-2018 End: 07-30-2019 Calcium Carbonate-Vitamin D3 1 EACH tablet Discontinued 1 NMA PO TWICE DAILY WITH MEALS September 19, 2018 1:00am July 30, 2019 6:23pm Cbd Oil (20 sources) Start: 07-30-2019 End: 01-27-2023 Cbd Oil Discontinued 1 NMA P O DAILY as needed for Pain July 30, 2019 1:00am January 27, 2023 1:20pm Start: 07-30-2019 End: 01-27-2023 take 1 dose by mouth once daily Cbd Oil Discontinued 1 DOSE PO DAILY July 30, 2019 1:00am January 27, 2023 1:20pm Start: 07-30-2019 take 1 dose by mouth once daily Cbd Oil Active 1 DOSE PO DAILY July 30, 2019 12:00am Start: 07-30-2019 take 1 dose by mouth once daily Cbd Oil Active 1 DOSE PO DAILY July 30, 2019 1:00am clonazePAM 1 mg oral tablet (20 sources) Benzodiazepine Start: 03-30-2018 End: 12-27-2022 take 1 tablet by mouth twice daily Clonazepam 1 MG tablet Discontinued 1 mg PO TWICE A DAY March 30, 2018 12:00am December 27, 2022 9:27am cyclobenzaprine hydrochloride 10 mg oral tablet (20 sources) Muscle Relaxant Start: 02-19-2019 End: 05-03-2022 take 1 tablet by mouth three times daily as needed Cyclobenzaprine 10 MG tablet Discontinued 10 mg PO 3 TIMES DAILY NEEDED as needed for MUSCLE RELAXER 0 February 21, 2019 11:25am August 18, 2020 3:19pm dicyclomine hydrochloride 10 mg oral capsule (20 sources) Anticholinergic Start: 09-14-2018 End: 08-18-2020 take 1 capsule by mouth three times daily at mealtime Dicyclomine 10 MG capsule Discontinued 10 mg PO 3 TIMES DAILY WITH MEALS September 14, 2018 1:00am August 18, 2020 3:14pm 24 hr dilTIAZem hydrochloride 180 mg extended release oral capsule (20 sources) Calcium Channel Remi Start: 02-13-2020 End: 08-03-2020 take 1 capsule by mouth once daily Diltiazem Hcl 180 mg capsule,extended release 24hr Discontinued 180 mg PO DAILY July 29, 2020 3:05pm August 03, 2020 2:52pm Start: 08-01-2019 End: 08-13-2019 take 1 capsule by mouth once daily Diltiazem Hcl 180 MG capsule Discontinued 180 mg PO DAILY August 01, 2019 1:00am August 13, 2019 11:01am doxycycline monohydrate 100 mg oral tablet (1 source) Tetracycline-class Drug Start: 08-29-2024 End: 12-13-2024 Doxycycline Monohydrate 100 mg tablet Discontinued 100 mg PO TWICE A DAY August 29, 2024 1:00am December 13, 2024 9:26am Administer for a total of 11 doses starting the evening of 08/29/2024 DULoxetine 30 mg delayed release oral capsule (20 sources) Serotonin and Norepinephrine Reuptake Inhibitor Start: 06-20-2013 End: 07-11-2013 take 1 capsule by mouth twice daily Duloxetine 30 MG capsule Discontinued 30 mg PO TWICE A DAY June 20, 2013 12:00am July 11, 2013 10:01am Start: 06-20-2013 End: 07-11-2013 take 1 capsule by mouth once daily Duloxetine 60 MG capsule Discontinued 60 mg PO DAILY June 20, 2013 12:00am July 11, 2013 10:01am ergocalciferol 1.25 mg oral capsule (20 sources) Provitamin D2 Compound Start: 07-30-2019 End: 02-13-2020 Ergocalciferol (Vitamin D2) 50,000 UNIT capsule Discontinued 99779 U PO MORALES July 30, 2019 1:00am February 13, 2020 11:32am famotidine 40 mg oral tablet (20 sources) Histamine-2 Receptor Antagonist Start: 08-18-2020 End: 06-06-2022 take 1 tablet by mouth once daily Famotidine 40 mg tablet Discontinued 40 mg PO DAILY August 18, 2020 1:00am June 06, 2022 8:25am 72 hr fentaNYL 0.025 mg/hr transdermal system (20 sources) Opioid Agonist Start: 09-19-2018 End: 10-10-2018 Fentanyl 25 MCG patch Discontinued 25 ug TRANSDERM. Every 3 Days 7 September 19, 2018 1:00am October 09, 2018 1:00am October 10, 2018 1:07am ferrous sulfate 325 mg oral tablet (20 sources) Start: 09-14-2018 End: 02-13-2020 take 1 tablet by mouth once daily Ferrous Sulfate 325 MG tablet Discontinued 325 mg PO DAILY@0800 September 14, 2018 1:00am February 13, 2020 11:32am furosemide 40 mg oral tablet (20 sources) Loop Diuretic Start: 12-27-2022 End: 08-29-2024 Furosemide (Lasix) 40 mg tablet Discontinued 40 mg PO .COMPLEX 180 January 06, 2023 9:53am January 28, 2023 1:24pm On Hold: Resume on 01/30/23. 40 mg orally daily, may need to take an extra 40 mg d/t edema so please give 180 tablets; Start: 06-16-2021 End: 03-30-2022 take 1 tablet by mouth once daily Furosemide 40 mg tablet Discontinued 40 mg PO DAILY June 16, 2021 12:00am March 30, 2022 3:27pm Start: 09-14-2018 End: 08-18-2020 take 1 tablet by mouth once daily as needed for edema Furosemide 40 MG tablet Discontinued 40 mg PO DAILY NEEDED as needed for leg edema 0 February 21, 2019 11:25am March 28, 2019 1:18pm gabapentin 300 mg oral capsule (20 sources) Anti-epileptic Agent Start: 03-30-2018 End: 08-18-2020 take 1 capsule by mouth three times daily at mealtime Gabapentin 300 MG capsule Discontinued 300 mg PO 3 TIMES DAILY WITH MEALS March 30, 2018 12:00am August 18, 2020 3:14pm hydroCHLOROthiazide 25 mg oral tablet (20 sources) Thiazide Diuretic Start: 02-21-2019 End: 08-18-2020 take 1 dose by mouth once daily Hydrochlorothiazide Discontinued 12.5 MG PO DAILY August 13, 2019 10:21am August 18, 2020 3:16pm Hold for 1 week and start at lower dose if needed for SBP more than 120 Start: 03-30-2018 End: 08-18-2020 take 1 tablet by mouth once daily Hydrochlorothiazide 25 mg tablet Discontinued 12.5 mg PO DAILY August 13, 2019 10:21am August 18, 2020 3:16pm Hold for 1 week and start at lower dose if needed for SBP more than 120 ibuprofen 200 mg oral tablet (20 sources) Nonsteroidal Anti-inflammatory Drug Start: 05-28-2018 End: 09-19-2018 Ibuprofen 200 MG tablet Discontinued 200 mg PO EVERY 4 HOURS NEEDED as needed for Pain May 28, 2018 10:12am September 19, 2018 9:07am do not take for more than 3 days in a row. Start: 03-31-2018 End: 05-28-2018 Ibuprofen 200 MG tablet Disc ontinued 4 {tbl} PO THREE TIMES A DAY as needed for Pain 1 March 31, 2018 3:53pm May 28, 2018 10:12am do not take for more than 3 days in a row. ammonium lactate 120 mg/ml topical lotion (20 sources) Start: 07-30-2019 End: 02-13-2020 Ammonium Lactate 396 GM loti on Discontinued 1 NMA TP AT BEDTIME July 30, 2019 1:00am February 13, 2020 11:32am Start: 07-30-2019 End: 02-13-2020 Ammonium Lactate Discontinue d 1 APPLIC TP AT BEDTIME July 30, 2019 1:00am February 13, 2020 11:32am levothyroxine sodium 0.025 mg oral capsule (13 sources) l-Thyroxine Start: 06-06-2022 End: 12-27-2022 take 1 capsule by mouth once daily Levothyroxine 25 mcg capsule Discontinued 25 ug PO DAILY June 06, 2022 12:00am December 27, 2022 9:27am lidocaine 0.05 mg/mg medicated patch (20 sources) Antiarrhythmic, Amide Local Anesthetic Start: 02-13-2020 End: 06-06-2022 Lidocaine 5 % adhesive patch,medicated Discontinued 1 NMA TOPICAL DAILY as needed for Pain February 13, 2020 12:00am June 06, 2022 8:25am leave on most painful area for up to 12 hrs lisinopril 20 mg oral tablet (20 sources) Angiotensin Converting Enzyme Inhibitor Start: 11-30-2015 End: 02-13-2020 take 1 tablet by mouth once daily Lisinopril 20 MG tablet Discontinued 20 mg PO DAILY November 30, 2015 12:00am February 13, 2020 11:32am Start: 06-20-2013 End: 07-11-2013 take 1 tablet by mouth once daily Lisinopril 20 MG tablet Discontinued 20 mg PO DAILY June 20, 2013 12:00am July 11, 2013 10:01am magnesium hydroxide 80 mg/ml oral suspension (20 sources) Start: 09-19-2018 End: 02-21-2019 take 1 mL by mouth once daily as needed for constipation Magnesium Hydroxide 30 ML suspension Discontinued 30 mL PO DAILY NEEDED as needed for Constipation September 19, 2018 1:00am February 21, 2019 11:20am Start: 09-19-2018 End: 02-21-2019 take 1 mL by mouth once daily as needed Magnesium Hydroxide Discontinued 30 ML PO DAILY NEEDED September 19, 2018 1:00am February 21, 2019 11:20am Marijuana (15 sources) Start: 05-23-2022 End: 01-27-2023 Marijuana Discontinued 1 NMA OTHER EVERY OTHER DAY May 23, 2022 12:00am January 27, 2023 1:20pm Start: 05-23-2022 End: 01-27-2023 Marijuana Discontinued 1 DOS E OTHER EVERY OTHER DAY May 23, 2022 12:00am January 27, 2023 1:20pm Start: 05-23-2022 Marijuana Acti ve 1 DOSE OTHER EVERY OTHER DAY May 22, 2022 11:00pm Start: 05-23-2022 Marijuana Acti ve 1 DOSE OTHER EVERY OTHER DAY May 23, 2022 12:00am meloxicam 7.5 mg oral tablet (20 sources) Nonsteroidal Anti-inflammatory Drug Start: 09-19-2018 End: 02-21-2019 take 1 tablet by mouth twice daily Meloxicam 7.5 MG tablet Discontinued 7.5 mg PO TWICE A DAY September 19, 2018 1:00am February 21, 2019 11:25am Multivitamins,Th er W-Minerals (20 sources) Start: 06-20-2013 End: 07-11-2013 Multivitamins,Ther W-Minerals Discontinued DAILY June 19, 2013 11:00pm July 11, 2013 9:01am Start: 06-20-2013 End: 07-11-2013 Multivitamins,Ther W-Mineral s Discontinued DAILY June 20, 2013 12:00am July 11, 2013 10:01am mupirocin 0.02 mg/mg topical ointment (20 sources) RNA Synthetase Inhibitor Antibacterial Start: 06-20-2013 End: 07-11-2013 Mupirocin 1 APPLIC Tube Discontinued 1 NMA TOPICAL TWICE A DAY June 20, 2013 12:00am July 11, 2013 10:01am Start: 06-20-2013 End: 07-11-2013 Mupirocin Discontinued 1 SPENCER LIC TOPICAL TWICE A DAY June 20, 2013 12:00am July 11, 2013 10:01am naproxen 500 mg oral tablet (20 sources) Nonsteroidal Anti-inflammatory Drug Start: 06-20-2013 End: 07-11-2013 take 1 tablet by mouth twice daily as needed for pain Naproxen 500 MG tablet Discontinued 500 mg PO TWICE DAILY NEEDED as needed for Moderate Pain June 20, 2013 12:00am July 11, 2013 10:01am nitrofurantoin, macrocrystals 25 mg / nitrofurantoin, monohydrate 75 mg oral capsule (20 sources) Nitrofuran Antibacterial Start: 01-22-2024 End: 08-23-2024 take 1 capsule by mouth twice daily Nitrofurantoin Monohyd/M-Cryst 100 mg Capsule Discontinued 100 mg PO TWICE A DAY 01 21January 22, 2024 12:00am August 23, 2024 4:15pm Start: 01-22-2020 End: 02-13-2020 take 1 capsule by mouth twice daily Nitrofurantoin Monohyd/M-Cryst 100 MG capsule Discontinued 100 mg PO TWICE A DAY January 22, 2020 12:00am February 13, 2020 11:28am nortriptyline 50 mg oral capsule (20 sources) Tricyclic Antidepressant Start: 02-19-2019 End: 03-28-2019 take 1 capsule by mouth at bedtime Nortriptyline 50 MG capsule Discontinued 50 mg PO AT BEDTIME February 19, 2019 12:00am March 28, 2019 1:17pm omeprazole 40 mg delayed release oral capsule (20 sources) Proton Pump Inhibitor Start: 09-14-2018 End: 08-18-2020 take 1 capsule by mouth once daily Omeprazole 40 MG capsule,delayed release(DR/EC) Discontinued 40 mg PO DAILY September 14, 2018 1:00am August 18, 2020 3:18pm Start: 06-20-2013 End: 07-11-2013 take 1 capsule by mouth twice daily Omeprazole 20 MG capsule Discontinued 20 mg PO TWICE A DAY June 20, 2013 12:00am July 11, 2013 10:01am OXcarbazepine 300 mg oral tablet (20 sources) Anti-epileptic Agent Start: 07-04-2022 End: 01-27-2023 take 1 tablet by mouth twice daily, then take 2 tablets by mouth twice daily Oxcarbazepine 150 mg tablet Discontinued 150 mg PO TWICE A DAY 60 July 04, 2022 1:00am January 27, 2023 1:20pm Take oxcarbazepine 150 mg 1 tablet PO twice daily along with oxcarbazepine 300 mg 1 tablet twice daily Start: 03-30-2022 End: 01-27-2023 take 1 tablet by mouth twice daily Oxcarbazepine 300 mg tablet Discontinued 300 mg PO TWICE A DAY 60 July 04, 2022 10:29pm January 27, 2023 1:20pm Start: 02-24-2022 End: 03-30-2022 take 1 tablet by mouth once daily, then take 1 tablet by mouth twice daily Oxcarbazepine 300 mg tablet Discontinued 300 mg PO .COMPLEX 60 February 24, 2022 12:00am March 30, 2022 2:52pm 1 tablet PO daily for 3 days then 1 tablet twice daily thereafter potassium chloride 20 meq extended release oral tablet (20 sources) Start: 06-16-2021 End: 03-30-2022 take 1 tablet by mouth once daily Potassium Chloride 20 mEq tablet extended release Discontinued 20 meq PO DAILY June 16, 2021 12:00am March 30, 2022 3:27pm pregabalin 150 mg oral capsule (20 sources) Start: 03-30-2022 End: 07-04-2022 take 1 capsule by mouth once daily Pregabalin (Lyrica) 150 mg capsule Discontinued 150 mg PO DAILY March 30, 2022 2:50pm July 04, 2022 10:29pm Start: 09-28-2021 End: 03-30-2022 take 1 capsule by mouth three times daily Pregabalin (Lyrica) 150 mg capsule Discontinued 150 mg PO THREE TIMES A DAY September 28, 2021 11:38am March 30, 2022 2:52pm Start: 04-09-2021 End: 09-28-2021 take 1 capsule by mouth twice daily Pregabalin (Lyrica) 150 mg Capsule Discontinued 150 mg PO TWICE A DAY April 09, 2021 12:00am September 28, 2021 11:39am rOPINIRole 0.5 mg oral tablet (8 sources) Nonergot Dopamine Agonist Start: 02-13-2023 End: 01-16-2024 take 1 tablet by mouth at bedtime Ropinirole 0.5 mg tablet Discontinued 0.5 mg PO AT BEDTIME February 13, 2023 12:00am January 16, 2024 5:01pm Start: 02-13-2023 End: 05-19-2023 take 1 tablet by mouth at bedtime Ropinirole 1 mg tablet Discontinued 1 mg PO AT BEDTIME February 13, 2023 12:00am May 19, 2023 11:02am sertraline 100 mg oral tablet (20 sources) Serotonin Reuptake Inhibitor Start: 03-30-2018 End: 08-13-2019 take 1 tablet by mouth at bedtime Sertraline 100 MG tablet Discontinued 100 mg PO AT BEDTIME March 30, 2018 12:00am August 13, 2019 10:23am spironolactone 25 mg oral tablet (20 sources) Aldosterone Antagonist Start: 03-30-2022 End: 01-27-2023 take 1 tablet by mouth once daily Spironolactone 25 mg tablet Discontinued 25 mg PO DAILY 90 March 30, 2022 12:00am January 27, 2023 1:20pm sulfamethoxazole 400 mg / trimethoprim 80 mg oral tablet (20 sources) Dihydrofolate Reductase Inhibitor Antibacterial, Sulfonamide Antimicrobial Start: 08-23-2024 End: 08-29-2024 Sulfamethoxazole-Tr imethoprim 400-80 mg tablet Discontinued 1 {tbl} PO DAILY August 23, 2024 1:00am August 29, 2024 2:20pm Start: 08-18-2020 End: 03-30-2022 Sulfamethoxazole-Trimethopri m 400-80 mg tablet Discontinued 1 {tbl} PO DAILY August 18, 2020 3:18pm March 30, 2022 2:51pm Start: 08-18-2020 End: 03-30-2022 take 1 tablet by mouth once daily Sulfamethoxazole-Trimethoprim Discontinu ed 1 TABLET PO DAILY August 18, 2020 3:18pm March 30, 2022 2:51pm Start: 01-15-2020 End: 08-18-2020 Sulfamethoxazole-Trimethopri m 1 EACH tablet Discontinued 1 NMA PO TWICE A DAY January 15, 2020 12:00am August 18, 2020 3:19pm Start: 01-15-2020 End: 08-18-2020 Sulfamethoxazole-Trimethopri m Discontinued 1 EACH PO TWICE A DAY January 15, 2020 12:00am August 18, 2020 3:19pm Start: 03-30-2018 End: 09-19-2018 Sulfamethoxazole-Trimethopri m 1 EACH tablet Discontinued 1 NMA PO DAILY March 30, 2018 12:00am September 19, 2018 9:07am Start: 03-30-2018 End: 09-19-2018 Sulfamethoxazole-Trimethopri m Discontinued 1 EACH PO DAILY March 30, 2018 12:00am September 19, 2018 9:07am terbinafine hydrochloride 10 mg/ml topical cream (1 source) Allylamine Antifungal Start: 08-23-2024 End: 08-29-2024 Terbinafine Hcl (Athlete's Foot (Terbinafine)) 1 % cream Discontinued 1 NMA TOPICAL DAILY August 23, 2024 1:00am August 29, 2024 2:20pm traMADol hydrochloride 50 mg oral tablet (20 sources) Opioid Agonist Start: 06-20-2013 End: 07-11-2013 take 1 tablet by mouth every six hours as needed for anxiety Tramadol 50 MG tablet Discontinued 50 mg PO EVERY 6 HOURS NEEDED as needed for Anxiety June 20, 2013 12:00am July 11, 2013 9:57am valsartan 80 mg oral tablet (20 sources) Angiotensin 2 Receptor Remi Start: 01-28-2023 End: 01-22-2024 take 1 tablet by mouth once daily Valsartan 80 mg tablet Discontinued 80 mg PO DAILY January 28, 2023 12:00am January 22, 2024 3:30pm Start: 06-03-2022 End: 01-28-2023 take 1 tablet by mouth once daily Valsartan 320 mg tablet Discontinued 320 mg PO DAILY October 21, 2022 4:15pm January 28, 2023 1:14pm venlafaxine 100 mg oral tablet (20 sources) Serotonin and Norepinephrine Reuptake Inhibitor Start: 03-30-2022 End: 12-27-2022 take 1 tablet by mouth three times daily Venlafaxine 100 mg tablet Discontinued 100 mg PO THREE TIMES A DAY March 30, 2022 12:00am December 27, 2022 9:29am Start: 03-28-2019 End: 03-30-2022 take 2 tablets by mouth three times daily Venlafaxine 50 mg tablet Discontinued 100 mg PO THREE TIMES A DAY March 28, 2019 12:00am March 30, 2022 2:51pm Start: 03-28-2019 End: 03-30-2022 take 100 mg by mouth three times daily Venlafaxine Discontinued 100 MG PO THREE TIMES A DAY March 28, 2019 12:00am March 30, 2022 2:51pm Start: 02-19-2019 End: 03-28-2019 take 1 tablet by mouth at bedtime Venlafaxine 25 MG tablet Discontinued 25 mg PO AT BEDTIME February 19, 2019 12:00am March 28, 2019 1:18pm Start: 02-19-2019 End: 03-28-2019 take 1 tablet by mouth at breakfast Venlafaxine 50 MG tablet Discontinued 50 mg PO WITH BREAKFAST February 19, 2019 12:00am March 28, 2019 1:18pm Problems Active Problems Problem Classification Problem Date Documented Da te Episodic/Chronic Alcohol-related disorders (20 sources) Alcohol intoxication; Translations: [Alcohol use, unspecified with intoxication, unspecified] 01-17-2020 Episodic Cardiac dysrhythmias (20 sources) Ventricular arrhythmia; Translations: [Ventricular premature depolarization] Onset: 01-23-2024 Chronic Comment on above: DCCV on 08/10/2021; Chronic ulcer of skin (20 sources) Traumatic skin ulcer; Translations: [Non-pressure chronic ulcer of skin of other sites with fat layer exposed] Chronic Comment on above: right CEAP C6left CE AP C5 Delirium, dementia, and amnestic and other cognitive disorders (20 sources) Postconcussion syndrome; Translations: [Postconcussional syndrome] 04-21-2021 Chronic Diabetes mellitus without complication (20 sources) Hyperglycemia; Translations: [Hyperglycemia, unspecified] 02-24-2022 Episodic E Codes: Fall (20 sources) Fall; Translations: [Unspecified fall, initial encounter] 01-17-2020 Episodic Esophageal disorders (20 sources) Gastric reflux; Translations: [Gastro-esophageal reflux disease without esophagitis] Chronic Essential hypertension (20 sources) Essential hypertension; Translations: [Essential (primary) hypertension] Onset: 12-26-2024 Chronic Genitourinary symptoms and ill-defined conditions (20 sources) Bacteriuria; Translations: [Bacteriuria] 01-17-2020 Episodic Malaise and fatigue (20 sources) Asthenia; Translations: [Weakness] Onset: 09-01-2024 01-26-2023 Episodic Nonspecific chest pain (20 sources) Chest pain; Translations: [Chest pain, unspecified] Onset: 11-28-2024 05-08-2021 Episodic Other circulatory disease (20 sources) Foot pulse absent; Translations: [Other specified symptoms and signs involving the circulatory and respiratory systems] 02-24-2022 Episodic Other circulatory disease (20 sources) Pulse in left dorsalis pedis artery absent; Translations: [Other specified symptoms and signs involving the circulatory and respiratory systems] 02-24-2022 Episodic Other circulatory disease (20 sources) Pulse in right dorsalis pedis artery absent; Translations: [Other specified symptoms and signs involving the circulatory and respiratory systems] 02-24-2022 Episodic Other circulatory disease (20 sources) Other specified symptoms and signs involving the circulatory and respiratory systems; Translations: [Other symptoms involving cardiovascular system] Episodic Other circulatory disease (20 sources) Abnormal foot pulse; Translations: [Other specified symptoms and signs involving the circulatory and respiratory systems] 03-18-2022 Episodic Other connective tissue disease (7 sources) Internal impingement of right shoulder; Translations: [Impingement syndrome of right shoulder] 09-23-2022 Episodic Other connective tissue disease (1 source) Impingement syndrome of right shoulder; Translations: [Other affections of shoulder region, not elsewhere classified] 09-23-2022 Episodic Other connective tissue disease (1 source) Pain in lower limb; Translations: [Pain in right leg] 01-31-2024 Episodic Other diseases of veins and lymphatics (18 sources) Peripheral venous insufficiency; Translations: [Venous insufficiency (chronic) (peripheral)] 04-12-2022 Episodic Other diseases of veins and lymphatics (8 sources) Venous insufficiency (chronic) (peripheral); Translations: [Venous (peripheral) insufficiency, unspecified] Episodic Other gastrointestinal disorders (20 sources) Dysphagia; Translations: [Dysphagia, unspecified] 08-24-2022 Episodic Other gastrointestinal disorders (3 sources) Dysphagia, unspecified; Translations: [Dysphagia, unspecified] Episodic Other gastrointestinal disorders (2 sources) Diarrhea, unspecified; Translations: [Diarrhea, unspecified] Onset: 10-24-2024 Episodic Other hereditary and degenerative nervous system conditions (4 sources) Restless legs; Translations: [Restless legs syndrome] 02-14-2023 Chronic Other hereditary and degenerative nervous system conditions (3 sources) Restless legs syndrome; Translations: [Restless legs syndrome (RLS)] 02-13-2023 Chronic Other lower respiratory disease (20 sources) Dyspnea on exertion; Translations: [Other forms of dyspnea] 08-03-2021 Episodic Other lower respiratory disease (2 sources) Other forms of dyspnea; Translations: [Other respiratory abnormalities] 03-08-2023 Episodic Other nervous system disorders (20 sources) Neuropathy; Translations: [Polyneuropathy, unspecified] 09-28-2021 Chronic Other nervous system disorders (20 sources) Polyneuropathy; Translations: [Polyneuropathy, unspecified] 06-03-2022 Chronic Other nervous system disorders (20 sources) Polyneuropathy, unspecified; Translations: [Unspecified hereditary and idiopathic peripheral neuropathy] Chronic Other nervous system disorders (3 sources) Unable to walk; Translations: [Difficulty in walking, not elsewhere classified] 01-16-2024 Chronic Other nervous system disorders (1 source) Difficulty in walking, not elsewhere classified; Translations: [Difficulty in walking, not elsewhere classified] Onset: 09-01-2024 Chronic Other nervous system disorders (1 source) Other chronic pain; Translations: [Other chronic pain] Onset: 01-23-2024 Chronic Other non-traumatic joint disorders (2 sources) Shoulder pain; Translations: [Pain in right shoulder] 09-23-2022 Episodic Other non-traumatic joint disorders (6 sources) Pain in right shoulder; Translations: [Pain in joint, shoulder region] 09-23-2022 Episodic Other nutritional; endocrine; and metabolic disorders (20 sources) Morbid obesity; Translations: [Morbid (severe) obesity due to excess calories] 04-08-2022 Chronic Other nutritional; endocrine; and metabolic disorders (8 sources) Morbid (severe) obesity due to excess calories; Translations: [Morbid obesity] Chronic Other nutritional; endocrine; and metabolic disorders (2 sources) Adult failure to thrive syndrome; Translations: [Adult failure to thrive] 08-31-2024 Episodic Other upper respiratory disease (2 sources) Nasal congestion; Translations: [Nasal congestion] Onset: 10-24-2024 Episodic Candy-; endo-; and myocarditis; cardiomyopathy (except that caused by tuberculosis or sexually transmitted disease) (20 sources) Cardiomyopathy; Translations: [Cardiomyopathy, unspecified] Chronic Residual codes; unclassified (20 sources) Parasomnia; Translations: [Parasomnia, unspecified] 02-24-2022 Chronic Residual codes; unclassified (13 sources) Parasomnia, unspecified; Translations: [Other dysfunctions of sleep stages or arousal from sleep] Chronic Residual codes; unclassified (18 sources) Obstructive sleep apnea syndrome; Translations: [Obstructive sleep apnea (adult) (pediatric)] 04-08-2022 Chronic Residual codes; unclassified (12 sources) Obstructive sleep apnea (adult) (pediatric); Translations: [Obstructive sleep apnea (adult)(pediatric)] Chronic Residual codes; unclassified (20 sources) Bilateral lower limb edema; Translations: [Localized edema] 03-30-2022 Episodic Residual codes; unclassified (20 sources) Localized edema; Translations: [Edema] Episodic Spondylosis; intervertebral disc disorders; other back problems (20 sources) Low back pain; Translations: [Low back pain] Episodic Unclassified (1 source) I48.92 - Unspecified atrial flutter Past or Other Problems Problem Classification Problem Date Documented Da te Episodic/Chronic Fluid and electrolyte disorders (20 sources) Hyponatremia; Translations: [Hypo-osmolality and hyponatremia] Onset: 09-01-2024 03-26-2019 Episodic Comment on above: likely due to HCTZ Mycoses (3 sources) Candidiasis of skin; Translations: [Candidiasis of skin and nail] Onset: 09-01-2024 08-31-2024 Episodic Other connective tissue disease (1 source) Pain in right leg; Translations: [Pain in right leg] Onset: 01-23-2024 Episodic Other connective tissue disease (1 source) Pain in left leg; Translations: [Pain in left leg] Onset: 01-23-2024 Episodic Other nutritional; endocrine; and metabolic disorders (1 source) Adult failure to thrive; Translations: [Adult failure to thrive] Onset: 09-01-2024 Episodic Urinary tract infections (6 sources) Urinary tract infectious disease; Translations: [Urinary tract infection, site not specified] Onset: 01-23-2024 01-31-2024 Episodic Results Test Name Value Interpretation Reference Range Facility Comprehensive Metabolic Prof [facility] 12-25-2024 Albumin [Mass/Vol] 3.6 g/dL Normal 3.4-4.8 [facility] Comment on above: Order Comment: ADD O N CMP COLLECTED 5/5 Performed By: #### L 100.0100, L500.4050, L500.4100, L300.4310, L501.9940, L501.9520, L300.3900 ####[facility] [address] [place], [place], [id number] Albumin/Globulin [Mass ratio] 1.0 {ratio} Normal 0.9-2.4 [facility] Comment on above: Order Comment: ADD O N CMP COLLECTED 5/5 Performed By: #### L 100.0100, L500.4050, L500.4100, L300.4310, L501.9940, L501.9520, L300.3900 ####[facility] [address] [place], [address] ALK PHOS 156 U/L High 40-129 [facility] Comment on above: Order Comment: ADD O N CMP COLLECTED 5/5 Performed By: #### L 100.0100, [id number], L500.4100, L300.4310, L501.9940, L501.9520, L300.3900 ####[facility] [address] [place], [address] ALT [Catalytic activity/Vol] 11 U/L Normal <=46 [facility] Comment on above: Order Comment: ADD O N CMP COLLECTED 5/5 Performed By: #### L 100.0100, L500.4050, L500.4100, L300.4310, L501.9940, L501.9520, L300.3900 ####[facility] [address] [place], [address] AST [Catalytic activity/Vol] 22 U/L Normal <=37 [facility] Comment on above: Order Comment: ADD O N CMP COLLECTED 5/5 Performed By: #### L 100.0100, L500.4050, L500.4100, L300.4310, L501.9940, L501.9520, L300.3900 ####[facility] [address] [place], [address] Bilirubin [Mass/Vol] 0.48 mg/dL Normal 0.00-1.30 [facility] Comment on above: Order Comment: ADD O N CMP COLLECTED 5/5 Performed By: #### L 100.0100, [id number], L500.4100, L300.4310, L501.9940, L501.9520, L300.3900 ####[facility] [address] [place], [address] BUN/CRE 12.1 RATIO Normal 10-20 [facility] Comment on above: Order Comment: ADD O N CMP COLLECTED 5/5 Performed By: #### L 100.0100, L500.4050, L500.4100, L300.4310, L501.9940, L501.9520, L300.3900 ####[facility] [address] [place], [address] Calcium [Mass/Vol] 8.1 mg/dL Normal 7.6-11.0 [facility] Comment on above: Order Comment: ADD O N CMP COLLECTED 5/5 Performed By: #### L 100.0100, L500.4050, L500.4100, L300.4310, L501.9940, L501.9520, L300.3900 ####[facility] [address] [place], [address] Chloride [Moles/Vol] 97 mmol/L Low 98-108 [facility] Comment on above: Order Comment: ADD O N CMP COLLECTED 5/5 Performed By: #### L 100.0100, L500.4050, L500.4100, L300.4310, L501.9940, L501.9520, L300.3900 ####[facility] [address] [place], [address] CO2 [Moles/Vol] 30.0 mmol/L Normal 21.0-32.0 [facility] Comment on above: Order Comment: ADD O N CMP COLLECTED 5/5 Performed By: #### L 100.0100, [id number], L500.4100, L300.4310, L501.9940, L501.9520, L300.3900 ####[facility] [address] [place], [address] Creatinine [Mass/Vol] 0.61 mg/dL Low 0.70-1.20 [facility] Comment on above: Order Comment: ADD O N CMP COLLECTED 5/5 Performed By: #### L 100.0100, L500.4050, L500.4100, L300.4310, L501.9940, L501.9520, L300.3900 ####[facility] [address] [place], [address] GAP 12 Normal 5-15 [facility] Comment on above: Order Comment: ADD O N CMP COLLECTED 5/5 Performed By: #### L 100.0100, L500.4050, L500.4100, L300.4310, L501.9940, L501.9520, L300.3900 ####[facility] [address] [place], [address] GFR/1.73 sq M.predicted among non-blacks MDRD (S/P/Bld) [Vol rate/Area] 108 mL/min/{1.73_m2} Normal >60 [facility] Comment on above: Order Comment: ADD O N CMP COLLECTED 5/5 Result Comment: mL/m in/1.73m2 CKD-EPI Creatinine Equation (2020) Performed By: #### L 100.0100, L500.4050, L500.4100, L300.4310, L501.9940, L501.9520, L300.3900 ####[facility] [address] [place], [address] Globulin (S) [Mass/Vol] 3.7 g/dL Normal 2.2-4.2 [facility] Comment on above: Order Comment: ADD O N CMP COLLECTED 5/5 Performed By: #### L 100.0100, L500.4050, L500.4100, L300.4310, L501.9940, L501.9520, L300.3900 ####[facility] [address] [place], [address] Glucose [Mass/Vol] 116 mg/dL High 70-99 [facility] Comment on above: Order Comment: ADD O N CMP COLLECTED 5/5 Performed By: #### L 100.0100, L500.4050, L500.4100, L300.4310, L501.9940, L501.9520, L300.3900 ####[facility] [address] [place], [address] Potassium [Moles/Vol] 4.2 mmol/L Normal 3.3-5.1 [facility] Comment on above: Order Comment: ADD O N CMP COLLECTED 5/5 Performed By: #### L 100.0100, L500.4050, L500.4100, L300.4310, L501.9940, L501.9520, L300.3900 ####[facility] [address] [place], [address] Sodium [Moles/Vol] 139 mmol/L Normal 133-145 [facility] Comment on above: Order Comment: ADD O N CMP COLLECTED 5/5 Performed By: #### L 100.0100, L500.4050, L500.4100, L300.4310, L501.9940, L501.9520, L300.3900 ####[facility] [address] [place], [address] T PROT 7.3 g/dL Normal 5.9-8.4 [facility] Comment on above: Order Comment: ADD O N CMP COLLECTED 5/5 Performed By: #### L 100.0100, L500.4050, L500.4100, L300.4310, L501.9940, L501.9520, L300.3900 ####[facility] [address] [place], [address] Urea nitrogen [Mass/Vol] 7 mg/dL Normal 4-19 [facility] Comment on above: Order Comment: ADD O N CMP COLLECTED 5/5 Performed By: #### L 100.0100, L500.4050, L500.4100, L300.4310, L501.9940, L501.9520, L300.3900 ####[facility] [address] [place], [address] Absolute lymphocyte countOrd ered By: Chalo Mclean on 12-23-2024 Lymphocytes Auto (Unsp spec) [#/Vol] 1.14 10*3/uL 0.83-4.51 [facility] Absolute neutrophil countOrd ered By: [facility] Neutrophils (Bld) [#/Vol] 6.1 10*3/uL 2.0-7.7 [facility] Activated partial thrombopla stin time (aPTT) in platelet poor plasma by coagulation aOrdered By: Chalo Mclean on 12-23-2024 aPTT Coag (PPP) [Time] 33.9 s 24.1-36.2 [facility] Anion gap in Serum or Plasma Ordered By: Chalo Mclean on 12-23-2024 Anion gap [Moles/Vol] 12 mmol/L 5-15 [facility] Automated lymphocyte count a s percentage of total leukocytesOrdered By: [facility] on 12-23-2024 Lymphocytes/100 WBC Auto (Unsp spec) 14.4 % Low 19-41 [facility] BUN/creatinine ratioOrdered By: [facility] on 12-23-2024 Urea nitrogen/Creatinine [Mass ratio] 12.1 mg/mg 10-20 [facility] Basophil percentageOrdered B y: Chalo Mclean on 12-23-2024 Basophils/100 WBC (Bld) 0.4 % 0-[address] [facility] Bilirubin, totalOrdered By: Chalo Vinay on 12-23-2024 Bilirubin [Mass/Vol] 0.48 mg/dL 0.00-1.30 [facility] CBC W/Diff, Automatedon Absolute Lymph 1.14 X10 3/uL Normal 0.83-4.51 [facility] Comment on above: Performed By: #### L 100.0100, L500.4050, L500.4100, L300.4310, L501.9940, L501.9520, L300.3900 ####[facility] [address] [place], [address] Absolute Neut 6.1 X10 3/uL Normal 2.0-7.7 [facility] Comment on above: Performed By: #### L 100.0100, L500.4050, L500.4100, L300.4310, L501.9940, L501.9520, L300.3900 ####[facility] [address] [place], [address] Basophils/100 WBC (Bld) 0.4 % Normal 0-[address] [facility] Comment on above: Performed By: #### L 100.0100, L500.4050, L500.4100, L300.4310, L501.9940, L501.9520, L300.3900 ####[facility] [address] [place], [address] Eosinophils/100 WBC (Bld) 2.7 % Normal 0-5 [facility] Comment on above: Performed By: #### L 100.0100, L500.4050, L500.4100, L300.4310, L501.9940, L501.9520, L300.3900 ####[facility] [address] [place], [address] Erythrocyte distribution width (RBC) [Ratio] 15.2 % High 11.6-14.6 [facility] Comment on above: Performed By: #### L 100.0100, L500.4050, L500.4100, L300.4310, L501.9940, L501.9520, L300.3900 ####[facility] [address] [place], [address] Hematocrit (Bld) [Volume fraction] 39.1 % Low 40-54 [facility] Comment on above: Performed By: #### L 100.0100, L500.4050, L500.4100, L300.4310, L501.9940, L501.9520, L300.3900 ####[facility] [address] [place], [address] Hemoglobin (Bld) [Mass/Vol] 12.5 g/dL Low 13.0-16.5 [facility] Comment on above: Performed By: #### L 100.0100, L500.4050, L500.4100, L300.4310, L501.9940, L501.9520, L300.3900 ####[facility] [address] [place], [address] IG% 0.400 Normal 0.0-0.9 [facility] Comment on above: Result Comment: IG% - Immature Granulocytes (promyelocytes, myelocytes andmetamyelocytes) > 1% indicates that a LEFT SHIFT is Present. Performed By: #### L 100.0100, L500.4050, L500.4100, L300.4310, L501.9940, L501.9520, L300.3900 ####[facility] [address] [place], [address] Lymphocytes/100 WBC (Bld) 14.4 % Low 19-41 [facility] Comment on above: Performed By: #### L 100.0100, L500.4050, L500.4100, L300.4310, L501.9940, L501.9520, L300.3900 ####[facility] [address] [place], [address] MCH (RBC) [Entitic mass] 27.6 pg Normal 27.0-32.0 [facility] Comment on above: Performed By: #### L 100.0100, L500.4050, L500.4100, L300.4310, L501.9940, L501.9520, L300.3900 ####[facility] [address] [place], [address] MCHC (RBC) [Mass/Vol] 32.0 g/dL Normal 32-36 [facility] Comment on above: Performed By: #### L 100.0100, L500.4050, L500.4100, L300.4310, L501.9940, L501.9520, L300.3900 ####[facility] [address] [place], [address] MCV (RBC) [Entitic vol] 86.3 fL Normal 80-[address] [facility] Comment on above: Performed By: #### L 100.0100, L500.4050, L500.4100, L300.4310, L501.9940, L501.9520, L300.3900 ####[facility] [address] [place], [address] Monocytes/100 WBC (Bld) 5.6 % Normal 0-10 [facility] Comment on above: Performed By: #### L 100.0100, L500.4050, L500.4100, L300.4310, L501.9940, L501.9520, L300.3900 ####[facility] [address] [place], [address] Neutrophils/100 WBC (Bld) 76.5 % High 47-70 [facility] Comment on above: Performed By: #### L 100.0100, L500.4050, L500.4100, L300.4310, L501.9940, L501.9520, L300.3900 ####[facility] [address] [place], [address] Nucleated RBC (Bld) [#/Vol] 0 10*3/uL Normal 0-5 [facility] Comment on above: Performed By: #### L 100.0100, L500.4050, L500.4100, L300.4310, L501.9940, L501.9520, L300.3900 ####[facility] [address] [place], [address] Platelet mean volume (Bld) [Entitic vol] 11.0 fL Normal 6.2-12.0 [facility] Comment on above: Performed By: #### L 100.0100, L500.4050, L500.4100, L300.4310, L501.9940, L501.9520, L300.3900 ####[facility] [address] [place], [address] Platelets (Bld) [#/Vol] 254 10*3/uL Normal 150-450 [facility] Comment on above: Performed By: #### L 100.0100, L500.4050, L500.4100, L300.4310, L501.9940, L501.9520, L300.3900 ####[facility] [address] [place], [address] RBC (Bld) [#/Vol] 4.53 10*6/uL Low 4.6-6.2 [facility] Comment on above: Performed By: #### L 100.0100, L500.4050, L500.4100, L300.4310, L501.9940, L501.9520, L300.3900 ####[facility] [address] [place], [address] RDW SD 48.1 fl High 35.1-43.9 [facility] Comment on above: Performed By: #### L 100.0100, L500.4050, L500.4100, L300.4310, L501.9940, L501.9520, L300.3900 ####[facility] [address] [place], [address] WBC (Bld) [#/Vol] 7.9 10*3/uL Normal 4.4-11.0 [facility] Comment on above: Performed By: #### L 100.0100, L500.4050, L500.4100, L300.4310, L501.9940, L501.9520, L300.3900 ####[facility] [address] [place], [address] Calculated very low density lipoprotein (VLDL) cholesterol measurementOrdered By: Chalo Mclean on 12-23-2024 Calculated very low density lipoprotein (VLDL) cholesterol measurement 16 mg/dL 5-40 [facility] Carbon dioxide, total [Moles /volume] in Central venous bloodOrdered By: Chalo Mclean 12-23-2024 CO2 [Moles/Vol] 30.0 mmol/L 21.0-32.0 [facility] Chloride assayOrdered By: Saqib Mclean on 12-23-2024 Chloride [Moles/Vol] 97 mmol/L Low 98-108 [facility] Eosinophil percentageOrdered By: Chalo Mclean 12-23-2024 Eosinophils/100 WBC (Bld) 2.7 % 0-5 [facility] Erythrocyte distribution wid th ratioOrdered By: Chalo Mclean 12-23-2024 Erythrocyte distribution width (RBC) [Ratio] 15.2 % High 11.6-14.6 [facility] Erythrocyte distribution wid th standard deviationOrdered By: Chalo Mclean 12-23-2024 Erythrocyte distribution width (RBC) [Ratio] 48.1 fl High 35.1-43.9 [facility] Glomerular filtration rate ( GFR) estimation/1.73 sq m using serum, plasma, or whole bOrdered By: Chalo Mclean 12-23-2024 GFR/1.73 sq M.predicted among non-blacks MDRD (S/P/Bld) [Vol rate/Area] 108 mL/min/{1.73_m2} >60 [facility] Comment on above: mL/min/1.73m2 CKD-EP I Creatinine Equation (2020) Hematocrit Auto (Bld) [Volum e fraction]Ordered By: Chalo Mclean 12-23-2024 Hematocrit (Bld) [Volume fraction] 39.1 % Low 40-54 [facility] Hemoglobin measurementOrdere d By: Chalo Mclean on 12-23-2024 Hemoglobin (Bld) [Mass/Vol] 12.5 g/dL Low 13.0-16.5 [facility] Immature granulocytes/100 WB C Auto (Bld)Ordered By: Chalo Mclean on 12-23-2024 Immature granulocytes/100 WBC (Bld) 0.400 % 0.0-0.9 [facility] Comment on above: IG% - Immature Granu locytes (promyelocytes, myelocytes and metamyelocytes) > 1% indicates that a LEFT SHIFT is Present. International normalized rat io (INR) calculationOrdered By: Chalo Mclean on 12-23-2024 INR Coag (Bld) [Relative time] 1.5 {INR} [facility] LDL calc ser/plasOrdered By: Chalo Mclean on 12-23-2024 Cholesterol in LDL [Mass/Vol] 77 mg/dL [facility] Comment on above: Uchxflnnpb=698-189 m g/dL & Higher Voix=214 mg/dL or greater Laboratory - Chemistry and C hemistry - challengeOrdered By: Chalo Mclean on 12-23-2024 AST [Catalytic activity/Vol] 22 U/L <38 [facility] Lipid Profileon 12-23-2024 CHOL:HDL 3.74 Normal [facility] Comment on above: Performed By: #### L 100.0100, L500.4050, L500.4100, L300.4310, L501.9940, L501.9520, L300.3900 ####[facility] [address] [place], [place], [address] Cholesterol [Mass/Vol] 127 mg/dL Normal <=200 [facility] Comment on above: Result Comment: Chol esterol level, Desirable <200 mg/dLBorderline high cholesterol 200-239 mg/dLHigh cholesterol >=240 mg/dLRecommendations of the NCEP Adult Treatment Panel for thefollowing risk-cutoff thresholds for the [place] Americanpulation. Performed By: #### L 100.0100, L500.4050, L500.4100, L300.4310, L501.9940, L501.9520, L300.3900 ####[facility] [address] [place], [address] Cholesterol in HDL [Mass/Vol] 34 mg/dL Low [facility] Comment on above: Result Comment: Juhi onal Cholesterol Education Program (NCEP) guidelines:<40 mg/dL: Low HDL-cholesterol (major risk factor for CHD)>= 60 mg/dL: High HDL-cholesterol (negative risk factor forCHD)HDL-cholesterol is affected by a number of factors, e.g.smoking, exercise, hormones, sex and age. Performed By: #### L 100.0100, L500.4050, L500.4100, L300.4310, L501.9940, L501.9520, L300.3900 ####[facility] [address] [place], [address] Cholesterol in LDL [Mass/Vol] 77 mg/dL Normal [facility] Comment on above: Result Comment: Bord gclfhy=169-474 mg/dL Higher Ekpi=801 mg/dL or greater Performed By: #### L 100.0100, L500.4050, L500.4100, L300.4310, L501.9940, L501.9520, L300.3900 ####[facility] [address] [place], [address] Cholesterol in VLDL [Mass/Vol] 16 mg/dL Normal 5-40 [facility] Comment on above: Performed By: #### L 100.0100, L500.4050, L500.4100, L300.4310, L501.9940, L501.9520, L300.3900 ####[facility] [address] [place], [address] Triglyceride [Mass/Vol] 78 mg/dL Normal [facility] Comment on above: Result Comment: The drugs N-Acetylcysteine and Metamizole may falselydepress this assay.Normal range: <150 mg/dLBorderline High: 150-199 mg/dLHigh: 200-499 mg/dLVery High: >500 mg/dL Performed By: #### L 100.0100, L500.4050, L500.4100, L300.4310, L501.9940, L501.9520, L300.3900 ####[facility] [address] [place], [address] MCV (mean corpuscular volume ) determinationOrdered By: Chalo Vinay on 12-23-2024 MCV (RBC) [Entitic vol] 86.3 fL 80-94 [facility] Mean corpuscular hemoglobin (MCH) determinationOrdered By: [facility] 12-23-2024 MCH (RBC) [Entitic mass] 27.6 pg 27.0-32.0 [facility] Mean corpuscular hemoglobin concentration (MCHC) determinationOrdered By: [facility] 12-23-2024 MCHC (RBC) [Mass/Vol] 32.0 g/dL 32-36 [facility] Mean platelet volume determi nationOrdered By: [facility] on 12-23-2024 Platelet mean volume (Bld) [Entitic vol] 11.0 fL 6.2-12.0 [facility] Monocyte percentageOrdered B y: [facility] Monocytes/100 WBC (Bld) 5.6 % 0-[address] [facility] Neutrophil percentageOrdered By: [facility] 12-23-2024 Neutrophils/100 WBC (Bld) 76.5 % High 47-70 [facility] Nucleated red blood cell per centageOrdered By: [facility] 12-23-2024 Nucleated RBC/100 WBC (Bld) [Ratio] 0 % 0-5 [facility] PSA,Total- Diagnosticon 050 PSA, DIAGNOSTIC < 0.02 Normal 0.00-4.00 [facility] Comment on above: Result Comment: This test was performed using the handsomexcutive tPSAmethod. Measured values of a patient??sample can varydepending on the testing procedure used. PSA valuesdetermined on patient samples by different testingprocedures cannot be used interchangeably. If there is achange in PSA assays while monitoring therapy, sequentialtesting should be performed to confirm baseline values. Performed By: #### L 100.0100, L500.4050, L500.4100, L300.4310, L501.9940, L501.9520, L300.3900 ####[facility] [address] [place], [place], [id number] Partial Thromboplast Timeon 12-23-2024 aPTT Coag (Bld) [Time] 33.9 s Normal 24.1-36.2 [facility] Comment on above: Performed By: #### L 100.0100, L500.4050, L500.4100, L300.4310, L501.9940, L501.9520, L300.3900 ####[facility] [address] [place], [address] Platelet countOrdered By: Saqib Mclean on 12-23-2024 Platelets (Bld) [#/Vol] 254 10*3/uL 150-450 [facility] Potassium measurement (mass/ volume)Ordered By: Chalo Mclean on 12-23-2024 Potassium (Unsp spec) [Mass/Vol] 4.2 mmol/L 3.3-5.1 [facility] Prothrombin Time w/INRon INR Coag (PPP) [Relative time] 1.5 {INR} Normal [facility] Comment on above: Performed By: #### L 100.0100, L500.4050, L500.4100, L300.4310, L501.9940, L501.9520, L300.3900 ####[facility] [address] [place], [address] PT Coag (PPP) [Time] 18.3 s High 11.7-14.9 [facility] Comment on above: Performed By: #### L 100.0100, L500.4050, L500.4100, L300.4310, L501.9940, L501.9520, L300.3900 ####[facility] [address] [place], [address] Prothrombin timeOrdered By: Chalo Mclean on 12-23-2024 PT Coag (PPP) [Time] 18.3 s High 11.7-14.9 [facility] RBC Auto (Bld) [#/Vol]Ordere d By: Chalo Mclaen on 12-23-2024 RBC (Bld) [#/Vol] 4.53 10*6/uL Low 4.6-6.2 [facility] Screening total cholesterol/ high density lipoprotein (HDL) cholesterol ratioOrdered By: Chalo Mclean on 12-23-2024 Cholesterol.total/Choles terol in HDL [Mass ratio] 3.74 {ratio} [facility] Serum creatinine measurement (mass/volume)Ordered By: Chalo Mclean on 12-23-2024 Creatinine [Mass/Vol] 0.61 mg/dL Low 0.70-1.20 [facility] Serum globulin measurementOr dered By: Chalo Mclean 12-23-2024 Globulin (S) [Mass/Vol] 3.7 g/dL 2.2-4.2 [facility] Serum glucose measurement (m ass/volume)Ordered By: Chalo Mclean 12-23-2024 Glucose [Mass/Vol] 116 mg/dL High 70-99 [facility] Serum or plasma alanine hernandez otransferase (ALT) measurementOrdered By: Chalo Mclean 12-23-2024 ALT [Catalytic activity/Vol] 11 U/L <47 [facility] Serum or plasma albumin rufus urement (mass/volume)Ordered By: Chalo Mclean 12-23-2024 Albumin [Mass/Vol] 3.6 g/dL 3.4-4.8 [facility] Serum or plasma albumin/glob ulin mass ratioOrdered By: Chalo Mclean 12-23-2024 Albumin/Globulin [Mass ratio] 1.0 {ratio} 0.9-2.4 [facility] Serum or plasma alkaline susie sphatase measurementOrdered By: Chalo Mclean 12-23-2024 ALP [Catalytic activity/Vol] 156 U/L High 40-129 [facility] Serum or plasma calcium rufus urement (mass/volume)Ordered By: Chalo Mclean on 12-23-2024 Calcium [Mass/Vol] 8.1 mg/dL 7.6-11.0 [facility] Serum or plasma cholesterol in HDL measurement (mass/volume)Ordered By: Chalo Mclean on 12-23-2024 Cholesterol in HDL [Mass/Vol] 34 mg/dL Low >40 [facility] Comment on above: National Cholesterol Education Program (NCEP) guidelines:<40 mg/dL: Low HDL-cholesterol (major risk factor for CHD)>= 60 mg/dL: High HDL-cholesterol (negative risk factor for CHD)HDL-cholesterol is affected by a number of factors, e.g. smoking, exercise, hormones, sex and age. Serum or plasma cholesterol measurement (mass/volume)Ordered By: Chalo Mclean on 12-23-2024 Cholesterol [Mass/Vol] 127 mg/dL <201 [facility] Comment on above: Cholesterol level, D esirable <200 mg/dLBorderline high cholesterol 200-239 mg/dLHigh cholesterol >=240 mg/dLRecommendations of the NCEP Adult Treatment Panel for the following risk-cutoff thresholds for the [place] population. Serum or plasma urea nitroge n measurement (mass/volume)Ordered By: Chalo Mclean on 12-23-2024 Urea nitrogen [Mass/Vol] 7 mg/dL 4-19 [facility] Sodium levelOrdered By: Chalo Mclean 12-23-2024 Sodium [Moles/Vol] 139 mmol/L 133-145 [facility] TSH DL <= 0.005 mIU/L QnOrde red By: Chalo Mclean on 12-23-2024 TSH Qn 1.980 uIU/mL 0.300-4.200 [facility] Thyroid Stim Hormone (TSH)on 12-23-2024 TSH 1.980 uIU/mL Normal 0.300-4.200 [facility] Comment on above: Performed By: #### L 100.0100, L500.4050, L500.4100, L300.4310, L501.9940, L501.9520, L300.3900 ####[facility] [address] [place], [address] Total proteinOrdered By: Chalo Mclean on 12-23-2024 Protein [Mass/Vol] 7.3 g/dL 5.9-8.4 [facility] Triglycerides measurementOrd ered By: Chalo Mclean on 12-23-2024 Triglyceride [Mass/Vol] 78 mg/dL <[address] [facility] Comment on above: The drugs N-Acetylcy steine and Metamizole may falsely depress this assay. Normal range: <150 mg/dLBorderline High: 150-199 mg/dLHigh: 200-499 mg/dLVery High: >500 mg/dL White blood cell (WBC) count Ordered By: Chalo Mclean on 12-23-2024 WBC (Bld) [#/Vol] 7.9 10*3/uL 4.4-11.0 [facility] Cardiology Visit Reporton Cardiology Visit Report Normal [facility] .Auto Diffon 11-28-2024 Basophil, Absolute 0.0 10 3/mcL Normal 0.0-0.3 [facility] Comment on above: Performed By: #### B MP, ADIFF, GFR, ANEURAMONE MDW, CBC #### [address] [address] Basophils/100 WBC (Bld) 0.4 % Normal 0.0-2.5 [facility] Comment on above: Performed By: #### B MP, ADIFF, GFR, ANEU, RAMONE, W, CBC #### [address] [address] Eosinophil, Absolute 0.2 10 3/mcL Normal 0.0-0.7 [facility] Comment on above: Performed By: #### B MP, ADIFF, GFR, ANEU, MD RAMONEW, CBC #### [address] [address] Eosinophils/100 WBC (Bld) 3.4 % Normal 0.0-6.0 [facility] Comment on above: Performed By: #### B MP, ADIFF, GFR, ANEU, TROPHS, W, CBC #### [address] [address] Lymphocyte, Absolute 1.0 10 3/mcL Normal 0.9-4.3 [facility] Comment on above: Performed By: #### B MP, ADIFF, GFR, ANEURAMONE MDW, CBC #### [address] [address] Lymphocytes/100 WBC (Bld) 20.0 % Normal 20.0-40.0 [facility] Comment on above: Performed By: #### B MP, ADIFF, GFR, ANEU, RAMONE, ARIANNA, CBC #### [address] [address] Monocyte, Absolute 0.3 10 3/mcL Normal 0.1-1.4 [facility] Comment on above: Performed By: #### B MP, ADIFF, GFR, ANEURAMONE MDW, CBC #### [address] [address] Monocytes/100 WBC (Bld) 6.3 % Normal 2.0-13.0 [facility] Comment on above: Performed By: #### B MP, ADIFF, GFR, ANEU, ARIANNA PACK, CBC #### [address] [address] Neutrophils/100 WBC (Bld) 69.9 % Normal 50.0-75.0 [facility] Comment on above: Performed By: #### B MP, ADIFF, GFR, RAMONE YOUNG MDW, CBC #### [address] [address] .GFRon 11-28-2024 Estimated Glomerular Filtration Rate 108 ml/min/1.73sqm Normal [facility] Comment on above: Result Comment: Stages of Chronic Kidney Disease (CKD) Stage Description eGFR(ml/min/1.73 sq.m.) CKD 1 Normal kidney function or >=90 normal kindney function with possible kidney damage (ex. Proteinuria) CKD 2 Kidney damage with mild loss 60-89 of kidney function CKD 3a Mild to moderate loss of kidney 45-59 function CKD 3b Moderate to severe loss of 30-44 of kindey function CKD 4 Severe loss of kidney function 15-29 CKD 5 Kidney failure <15 Note: (go live 2024) the eGFR calculation was updated to the 2020 CKD-EPI creatinine equation without a race factor to calculate the eGFR results. Performed By: #### B MP, ADIFF, GFR, ANEU, ARIANNA PACK, CBC #### [address] [address] .MDWon 11-28-2024 Monocyte Distribution Width 18.40 Normal 0.00-20.00 [facility] Comment on above: Result Comment: For ED adult patients suspected of sepsis, MDW<=20.0 does not rule out sepsis or risk of sepsis Performed By: #### B MP, ADIFF, GFR, RAMONE YOUNG MDW, CBC #### [address] [id number] .NEUABSon 11-28-2024 Neutrophil, Absolute 3.6 10 3/mcL Normal 2.3-8.1 [facility] Comment on above: Performed By: #### B MP, ADIFF, GFR, ANEURAMONE MDW, CBC #### [address] [address] BMPon 11-28-2024 BUN/Creatinine Ratio 23 ratio Normal 7-27 [facility] Comment on above: Performed By: #### B MP, ADIFF, GFR, RAMONE YOUNG MDW, CBC #### [address] [address] Calcium [Mass/Vol] 8.2 mg/dL Low 8.4-10.2 [facility] Comment on above: Performed By: #### B MP, ADIFF, GFR, RAMONE YOUNG MDW, CBC #### [address] [address] Chloride [Moles/Vol] 104 mmol/L Normal 98-107 [facility] Comment on above: Performed By: #### B MP, ADIFF, GFR, ANEU, ARIANNA PACK, CBC #### [address] [address] CO2 [Moles/Vol] 38 mmol/L High 23-31 [facility] Comment on above: Performed By: #### B RONI, ADIFF, GFR, RAMONE YOUNG MDW, CBC #### [address] [address] Creatinine [Mass/Vol] 0.61 mg/dL Low 0.70-1.30 [place] [facility] Comment on above: Result Comment: Test ing performed on [employer] Dimension EXL analyzer using a modified kinetic [place] technique. Performed By: #### B RONI, ADIFF, GFR, RAMONE YOUNG MDW, CBC #### [address] [address] Electrolyte Balance -1.0 mEq/L Low 4.0-15.0 [facility] Comment on above: Performed By: #### B RONI, ADIFF, GFR, RAMONE YOUNG MDW, CBC #### [address] [address] Glucose [Mass/Vol] 115 mg/dL Normal 80-115 [facility] Comment on above: Performed By: #### B MARIMAR ATMAYOIFF, GFR, RAMONE YOUNG MDW, CBC #### [address] [address] Potassium [Moles/Vol] 4.1 mmol/L Normal 3.5-5.1 [facility] Comment on above: Performed By: #### B RONI, ADIFF, GFR, RAMONE YOUNG MDW, CBC #### [address] [address] Sodium [Moles/Vol] 141 mmol/L Normal 136-145 [facility] Comment on above: Performed By: #### B RONI ADIFF, GFR, RAMONE YOUNG MDW, CBC #### [address] [address] Urea nitrogen [Mass/Vol] 14 mg/dL Normal 7-18 [facility] Comment on above: Performed By: #### B RONI ADIFF, GFR, RAMONE YOUNG MDW, CBC #### [address] [address] CBCon 11-28-2024 Erythrocyte distribution width (RBC) [Ratio] 16.0 % High 11.5-15.5 [facility] Comment on above: Performed By: #### B RONI, ADIFF, GFR, RAMONE YOUNG MDW, CBC #### [place] [address] Hematocrit (Bld) [Volume fraction] 36.9 % Low 40.0-52.0 [facility] Comment on above: Performed By: #### B RONI, SCOTT, GFR, RAMONE YOUNG MDW, CBC #### [place] [address] Hgb 12.1 G/dL Low 13.0-17.5 [facility] Comment on above: Performed By: #### B RONI, ADIFF, GFR, RAMONE YOUNG MDW, CBC #### [place] [address] MCH (RBC) [Entitic mass] 28.2 pg Normal 27.0-33.0 [facility] Comment on above: Performed By: #### B RONI, ADIFF, GFR, RAMONE YOUNG MDW, CBC #### [address] [address] MCHC 32.8 G/dL Normal 32.0-36.0 [facility] Comment on above: Performed By: #### B RONI, ADIFF, GFR, RAMONE YOUNG MDW, CBC #### [address] [address] MCV (RBC) [Entitic vol] 86.1 fL Normal 81.0-100.0 [facility] Comment on above: Performed By: #### B RONI, ADIFF, GFR, RAMONE YOUNG MDW, CBC #### [place] [address] Platelet 207 10 3/mcL Normal 150-450 [facility] Comment on above: Performed By: #### B RONI, ADIFF, GFR, RAMONE YOUNG MDW, CBC #### [address] [address] Platelet mean volume (Bld) [Entitic vol] 7.6 fL Normal 6.4-10.5 [facility] Comment on above: Performed By: #### B RONI, ADIFF, GFR, RAMONE YOUNG MDW, CBC #### [address] [address] RBC 4.28 10 6/mcL Low 4.50-6.00 [facility] Comment on above: Performed By: #### B RONI, MARIMARIFF, GFR, RAMONE YOUNG MDW, CBC #### [address] [address] WBC 5.2 10 3/mcL Normal 4.5-10.8 [facility] Comment on above: Performed By: #### B RONI, ADIFF, GFR, RAMONE YOUNG MDW, CBC #### [address] [address] TROPHSon 11-28-2024 High Sensitivity Troponin I 28 ng/L Normal 0-76 [facility] Comment on above: Result Comment: High Sensitive Troponin I Reference Ranges: Female: 0-51 ng/L Male: 0-76 ng/L Testing performed on Dimension EXL using a homogeneous sandwich chemiluminescent immunoassay based on [employer] technology. Performed By: #### T JAMILA #### [address] [address] High Sensitivity Troponin I 26 ng/L Normal 0-76 [facility] Comment on above: Result Comment: High Sensitive Troponin I Reference Ranges: Female: 0-51 ng/L Male: 0-76 ng/L Testing performed on Dimension EXL using a homogeneous sandwich chemiluminescent immunoassay based on [employer] technology. Performed By: #### B RONI, ADIFF, GFR, ANEURAMONE MDW, CBC #### [address] [address] XR CHEST 1 VIEWon 11-28-2024 XR CHEST 1 VIEW ORIGINAL EXAMINATION: ONE XRAY VIEW OF THE CHEST 11/28/2024 12:26 pm COMPARISON: None. HISTORY: ORDERING SYSTEM PROVIDED HISTORY: Reason for Exam: chest pain FINDINGS: There is poor inspiratory effort. Early pulmonary vascular cephalization and veiling of the lower lobe vessels is seen with mild cardiomegaly. There are small bilateral pleural effusions. Study limited by large body habitus and poor penetration. IMPRESSION: Mild pulmonary edema and small bilateral pleural effusions. Interpreted by: Ramiro Montez DO Preliminary Report By: Ramiro Montez DO Electronically signed By Ramiro Montez DO Dictated Date: 11/28/2024 12:28:28 PM Prelim Date: 11/28/2024 12:31:11 PM Sign Date: 11/28/2024 12:31:11 PM Ordering Provider: JAZMIN RIVERA [facility] CVFLURVon 10-24-2024 FLU A PCR Negative Normal Negative [facility] Comment on above: Performed By: #### C VFLURV #### [place] [address] FLU B PCR Negative Normal Negative [facility] Comment on above: Performed By: #### C VFLURV #### [place] [address] RSV PCR Negative Normal Negative [facility] Comment on above: Performed By: #### C VFLURV #### [place] [address] SARS-CoV-2 (COVID-19) RNA ROBBY+probe Ql (Unsp spec) Negative Normal Negative [facility] Comment on above: Result Comment: Resu lts from the Xpert Xpress CoV-2/Flu/RSV plus test should be correlated with the clinical history, epidemiological data, and other data available to the clinical evaluating the patient. Performance of the Xpert Xpress CoV-2/Flu/RSV plus test has only been established in nasopharyngeal swab specimen. Erroneous test results might occur from improper specimen collection, failure to follow the recommended sample collection, handling and storage procedures, technical error, or sample mix-up. False negative results may occur if a virus is present at a level below the analytical limit of detection. Viral nucleic acid may persist in vivo, independent of virus viability. Detection of analyte target(s) does not imply that the corresponding virus(es) are infectious or are the causative agents for clinical symptoms. Recent patient exposure to FluMist or other live attenuated influenza vaccines may cause inaccurate positive results. Performed By: #### C VFLURV #### [address] [place], [place] [address] Culture, Blood (WB)on 2024 CUB No growth in 5 days. Normal [facility] Comment on above: Performed By: #### M 200.1000 ####[facility] [address] [place], [address] CUB No growth in 5 days. Normal [facility] Comment on above: Performed By: #### M 200.1000 ####[facility] [address] [place], [address] CBC W/Diff, Automatedon 08-21 Absolute Neut Normal 2.0-7.7 [facility] Comment on above: Result Comment: @PT DISCHARGED Performed By: #### L 100.0100 ####[facility] [address] [place], [address] HCT Normal 40-54 [facility] Comment on above: Result Comment: @PT DISCHARGED Performed By: #### L 100.0100 ####[facility] [address] [place], [address] HGB Normal 13.0-16.5 [facility] Comment on above: Result Comment: @PT DISCHARGED Performed By: #### L 100.0100 ####[facility] [address] [place], [address] MCH Normal 27.0-32.0 [facility] Comment on above: Result Comment: @PT DISCHARGED Performed By: #### L 100.0100 ####[facility] [address] [place], [address] MCHC Normal 32-36 [facility] Comment on above: Result Comment: @PT DISCHARGED Performed By: #### L 100.0100 ####[facility] [address] [place], [address] MCV Normal 80-94 [facility] Comment on above: Result Comment: @PT DISCHARGED Performed By: #### L 100.0100 ####[facility] [address] [place], [address] NEUT% Normal 47-70 [facility] Comment on above: Result Comment: @PT DISCHARGED Performed By: #### L 100.0100 ####[facility] [address] [place], [address] PLT Normal 150-450 [facility] Comment on above: Result Comment: @PT DISCHARGED Performed By: #### L 100.0100 ####[facility] [address] [place], [address] RBC Normal 4.6-6.2 [facility] Comment on above: Result Comment: @PT DISCHARGED Performed By: #### L 100.0100 ####[facility] [address] [place], [address] RDW CV Normal 11.6-14.6 [facility] Comment on above: Result Comment: @PT DISCHARGED Performed By: #### L 100.0100 ####[facility] [address] [place], [address] RDW SD Normal 35.1-43.9 [facility] Comment on above: Result Comment: @PT DISCHARGED Performed By: #### L 100.0100 ####[facility] [address] [place], [address] WBC Normal 4.4-11.0 [facility] Comment on above: Result Comment: @PT DISCHARGED Performed By: #### L 100.0100 ####[facility] [address] [place], [address] Comprehensive Metabolic Prof ilon 08-30-2024 ALB Normal 3.2-5.0 [facility] Comment on above: Result Comment: @PT DISCHARGED Performed By: #### L 500.4050 ####[facility] [address] [place], [address] ALK P Normal 45-117 [facility] Comment on above: Result Comment: @PT DISCHARGED Performed By: #### L 500.4050 ####[facility] [address] [place], [address] ALT Normal 16-61 [facility] Comment on above: Result Comment: @PT DISCHARGED Performed By: #### L 500.4050 ####[facility] [address] [place], [address] AST Normal 15-37 [facility] Comment on above: Result Comment: @PT DISCHARGED Performed By: #### L 500.4050 ####[facility] [address] [place], [address] BUN Normal 7-18 [facility] Comment on above: Result Comment: @PT DISCHARGED Performed By: #### L 500.4050 ####[facility] [address] [place], [address] BUN/CRE Normal 10-20 [facility] Comment on above: Result Comment: @PT DISCHARGED Performed By: #### L 500.4050 ####[facility] [address] [place], [address] CA,Total Normal 8.5-10.1 [facility] Comment on above: Result Comment: @PT DISCHARGED Performed By: #### L 500.4050 ####[facility] [address] [place], [address] CL Normal 98-107 [facility] Comment on above: Result Comment: @PT DISCHARGED Performed By: #### L 500.4050 ####[facility] [address] [place], [address] CO2 Normal 21.0-32.0 [facility] Comment on above: Result Comment: @PT DISCHARGED Performed By: #### L 500.4050 ####[facility] [address] [place], [address] CREAT,SERUM Normal 0.70-1.30 [facility] Comment on above: Result Comment: @PT DISCHARGED Performed By: #### L 500.4050 ####[facility] [address] [place], [address] EST GFR Normal >60 [facility] Comment on above: Result Comment: @PT DISCHARGED Performed By: #### L 500.4050 ####[facility] [address] [place], [address] EST GFR - AA Normal >60 [facility] Comment on above: Result Comment: @PT DISCHARGED Performed By: #### L 500.4050 ####[facility] [address] [place], [address] GAP Normal 5-15 [facility] Comment on above: Result Comment: @PT DISCHARGED Performed By: #### L 500.4050 ####[facility] [address] [place], [address] GLU Normal 74-106 [facility] Comment on above: Result Comment: @PT DISCHARGED Performed By: #### L 500.4050 ####[facility] [address] [place], [address] Potassium Normal 3.5-5.1 [facility] Comment on above: Result Comment: @PT DISCHARGED Performed By: #### L 500.4050 ####[facility] [address] [place], [address] T BILI Normal 0.20-1.00 [facility] Comment on above: Result Comment: @PT DISCHARGED Performed By: #### L 500.4050 ####[facility] [address] [place], [address] T PROT Normal 6.4-8.2 [facility] Comment on above: Result Comment: @PT DISCHARGED Performed By: #### L 500.4050 ####[facility] [address] [place], [address] Comprehensive Metabolic Profil Normal 136-145 [facility] Comment on above: Result Comment: @PT DISCHARGED Performed By: #### L 500.4050 ####[facility] [address] [place], [place], [address] Absolute lymphocyte countOrd ered By: Sherley Larsen on 08-29-2024 Lymphocytes Auto (Unsp spec) [#/Vol] 1.04 10*3/uL 0.83-4.51 [facility] Absolute neutrophil countOrd ered By: Sherley Larsen on 08-29-2024 Neutrophils (Bld) [#/Vol] 2.9 10*3/uL 2.0-7.7 [facility] Albumin to globulin ratioOrd ered By: Sherley Larsen on 08-29-2024 Albumin/Globulin [Mass ratio] 0.4 {ratio} Low 0.9-2.4 [facility] Automated lymphocyte count a s percentage of total leukocytesOrdered By: Sherley Larsen on 08-29-2024 Lymphocytes/100 WBC Auto (Unsp spec) 22.6 % 19-41 [facility] Basophil percentageOrdered B y: Sherley Larsen on 08-29-2024 Basophils/100 WBC (Bld) 0.7 % 0-[address] [facility] Bilirubin, totalOrdered By: Sherley Larsen on 08-29-2024 Bilirubin [Mass/Vol] 0.40 mg/dL 0.20-1.00 [facility] Comment on above: For patients on eltr ombopag therapy, use of Dimension [place] TBIL is not recommended. Blood urea nitrogen (BUN)/cr eatinine ratioOrdered By: Sherley Lrasen on 08-29-2024 Urea nitrogen/Creatinine [Mass ratio] 21.6 mg/mg High 10-20 [facility] CBC W/Diff, Automatedon Absolute Lymph 1.04 X10 3/uL Normal 0.83-4.51 [facility] Comment on above: Performed By: #### L 100.0100 ####[facility] [address] [place], [address] Absolute Neut 2.9 X10 3/uL Normal 2.0-7.7 [facility] Comment on above: Performed By: #### L 100.0100 ####[facility] [address] [place], [address] Basophils/100 WBC (Bld) 0.7 % Normal 0-[address] [facility] Comment on above: Performed By: #### L 100.0100 ####[facility] [address] [place], [address] Eosinophils/100 WBC (Bld) 3.9 % Normal 0-5 [facility] Comment on above: Performed By: #### L 100.0100 ####[facility] [address] [place], [address] Erythrocyte distribution width (RBC) [Ratio] 17.3 % High 11.6-14.6 [facility] Comment on above: Performed By: #### L 100.0100 ####[facility] [address] [place], [address] Hematocrit (Bld) [Volume fraction] 38.3 % Low 40-54 [facility] Comment on above: Performed By: #### L 100.0100 ####[facility] [address] [place], [address] Hemoglobin (Bld) [Mass/Vol] 11.7 g/dL Low 13.0-16.5 [facility] Comment on above: Performed By: #### L 100.0100 ####[facility] [address] [place], [address] IG% 0.400 Normal 0.0-0.9 [facility] Comment on above: Result Comment: IG% - Immature Granulocytes (promyelocytes, myelocytes andmetamyelocytes) > 1% indicates that a LEFT SHIFT is Present. Performed By: #### L 100.0100 ####[facility] [address] [place], [address] Lymphocytes/100 WBC (Bld) 22.6 % Normal 19-41 [facility] Comment on above: Performed By: #### L 100.0100 ####[facility] [address] [place], [address] MCH (RBC) [Entitic mass] 28.6 pg Normal 27.0-32.0 [facility] Comment on above: Performed By: #### L 100.0100 ####[facility] [address] [place], [address] MCHC (RBC) [Mass/Vol] 30.5 g/dL Low 32-36 [facility] Comment on above: Performed By: #### L 100.0100 ####[facility] [address] [place], [address] MCV (RBC) [Entitic vol] 93.6 fL Normal 80-[address] [facility] Comment on above: Performed By: #### L 100.0100 ####[facility] [address] [place], [address] Monocytes/100 WBC (Bld) 10.2 % High 0-[address] [facility] Comment on above: Performed By: #### L 100.0100 ####[facility] [address] [place], [address] Neutrophils/100 WBC (Bld) 62.2 % Normal 47-70 [facility] Comment on above: Performed By: #### L 100.0100 ####[facility] [address] [place], [address] Nucleated RBC (Bld) [#/Vol] 0 10*3/uL Normal 0-5 [facility] Comment on above: Performed By: #### L 100.0100 ####[facility] [address] [place], [address] Platelet mean volume (Bld) [Entitic vol] 9.8 fL Normal 6.2-12.0 [facility] Comment on above: Performed By: #### L 100.0100 ####[facility] [address] [place], [address] Platelets (Bld) [#/Vol] 274 10*3/uL Normal 150-450 [facility] Comment on above: Performed By: #### L 100.0100 ####[facility] [address] [place], [address] RBC (Bld) [#/Vol] 4.09 10*6/uL Low 4.6-6.2 [facility] Comment on above: Performed By: #### L 100.0100 ####[facility] [address] [place], [address] RDW SD 60.1 fl High 35.1-43.9 [facility] Comment on above: Performed By: #### L 100.0100 ####[facility] [address] [place], [address] WBC (Bld) [#/Vol] 4.6 10*3/uL Normal 4.4-11.0 [facility] Comment on above: Performed By: #### L 100.0100 ####[facility] [address] [place], [address] Carbon dioxide measurementOr dered By: Sherley Larsen on 01-09-2025 CO2 [Moles/Vol] 31.0 mmol/L 21.0-32.0 [facility] Chloride measurementOrdered By: Sherley Larsen on 08-29-2024 Chloride [Moles/Vol] 104 mmol/L 98-107 [facility] Comprehensive Metabolic Prof ilon 08-29-2024 Albumin [Mass/Vol] 1.8 g/dL Low 3.2-5.0 [facility] Comment on above: Performed By: #### L 500.4050 ####[facility] [address] [place], [address] Albumin/Globulin [Mass ratio] 0.4 {ratio} Low 0.9-2.4 [facility] Comment on above: Performed By: #### L 500.4050 ####[facility] [address] [place], [address] ALK P 109 U/L Normal 45-117 [facility] Comment on above: Performed By: #### L 500.4050 ####[facility] [address] [place], [address] ALT [Catalytic activity/Vol] 10 U/L Low 16-61 [facility] Comment on above: Performed By: #### L 500.4050 ####[facility] [address] [place], [address] AST [Catalytic activity/Vol] 28 U/L Normal 15-37 [facility] Comment on above: Performed By: #### L 500.4050 ####[facility] [address] [place], [address] Bilirubin [Mass/Vol] 0.40 mg/dL Normal 0.20-1.00 [facility] Comment on above: Result Comment: For patients on eltrombopag therapy, use of Dimension [place] TBIL is not recommended. Performed By: #### L 500.4050 ####[facility] [address] [place], [address] BUN/CRE 21.6 RATIO High 10-20 [facility] Comment on above: Performed By: #### L 500.4050 ####[facility] [address] [place], [address] CA,Total 8.1 mg/dL Low 8.5-10.1 [facility] Comment on above: Performed By: #### L 500.4050 ####[facility] [address] [place], [address] Chloride [Moles/Vol] 104 mmol/L Normal 98-107 [facility] Comment on above: Performed By: #### L 500.4050 ####[facility] [address] [place], [address] CO2 [Moles/Vol] 31.0 mmol/L Normal 21.0-32.0 [facility] Comment on above: Performed By: #### L 500.4050 ####[facility] [address] [place], [address] Creatinine [Mass/Vol] 0.37 mg/dL Low 0.70-1.30 [facility] Comment on above: Result Comment: The validity of the calculated GFR GFRAA in patients over70 years has not been determined. Clinical correlation isessential. Performed By: #### L 500.4050 ####[facility] [address] [place], [address] ECRCL 362.80 ml/min Normal [facility] Comment on above: Performed By: #### L 500.4050 ####[facility] [address] [place], [address] EST GFR - AA 305 mL/min Normal >60 [facility] Comment on above: Result Comment: Afri can [place] GFR Calc Performed By: #### L 500.4050 ####[facility] [address] [place], [address] GAP 3 Low 5-15 [facility] Comment on above: Performed By: #### L 500.4050 ####[facility] [address] [place], [address] GFR/1.73 sq M.predicted among non-blacks MDRD (S/P/Bld) [Vol rate/Area] 252 mL/min/{1.73_m2} Normal >60 [facility] Comment on above: Result Comment: Non- GFR Calc Performed By: #### L 500.4050 ####[facility] [address] [place], [address] Globulin (S) [Mass/Vol] 4.0 g/dL Normal 2.2-4.[address] [facility] Comment on above: Performed By: #### L 500.4050 ####[facility] [address] [place], [address] Glucose [Mass/Vol] 110 mg/dL High 74-106 [facility] Comment on above: Result Comment: Fast ing Glucose result from 100 to 125 mg/dLsuggests IMPAIRED HOMEOSTASIS per A.D.A. criteria. Performed By: #### L 500.4050 ####[facility] [address] [place], [address] Potassium [Moles/Vol] 3.6 mmol/L Normal 3.5-5.1 [facility] Comment on above: Performed By: #### L 500.4050 ####[facility] [address] [place], [address] Sodium [Moles/Vol] 138 mmol/L Normal 136-145 [facility] Comment on above: Performed By: #### L 500.4050 ####[facility] [address] [place], [address] T PROT 5.8 g/dL Low 6.4-8.2 [facility] Comment on above: Performed By: #### L 500.4050 ####[facility] [address] [place], [place], [address] Urea nitrogen [Mass/Vol] 8 mg/dL Normal 7-18 [facility] Comment on above: Performed By: #### L 500.4050 ####[facility] [address] [place], [place], [address] Eosinophil percentageOrdered By: Sherley Larsen on 08-29-2024 Eosinophils/100 WBC (Bld) 3.9 % 0-5 [facility] Erythrocyte distribution wid th ratioOrdered By: Sherley Larsen on 08-29-2024 Erythrocyte distribution width (RBC) [Ratio] 17.3 % High 11.6-14.6 [facility] Erythrocyte distribution wid th standard deviationOrdered By: Sherley Larsen on 08-29-2024 Erythrocyte distribution width (RBC) [Ratio] 60.1 fl High 35.1-43.9 [facility] Glomerular filtration rate ( GFR) estimationOrdered By: Sherley Larsen on 08-29-2024 GFR/1.73 sq M.predicted among non-blacks MDRD (S/P/Bld) [Vol rate/Area] 252 mL/min/{1.73_m2} >60 [facility] Comment on above: Non- GFR Calc Glucose measurementOrdered B y: Sherley Larsen on 08-29-2024 Glucose [Mass/Vol] 110 mg/dL High 74-106 [facility] Comment on above: Fasting Glucose resu lt from 100 to 125 mg/dL suggests IMPAIRED HOMEOSTASIS per A.D.A. criteria. Hematocrit Auto (Bld) [Volum e fraction]Ordered By: Sherley Larsen on 08-29-2024 Hematocrit (Bld) [Volume fraction] 38.3 % Low 40-54 [facility] Hemoglobin measurementOrdere d By: Sherley Larsen on 08-29-2024 Hemoglobin (Bld) [Mass/Vol] 11.7 g/dL Low 13.0-16.5 [facility] Immature granulocytes/100 WB C Auto (Bld)Ordered By: Sherley Larsen on 08-29-2024 Immature granulocytes/100 WBC (Bld) 0.400 % 0.0-0.9 [facility] Comment on above: IG% - Immature Granu locytes (promyelocytes, myelocytes and metamyelocytes) > 1% indicates that a LEFT SHIFT is Present. Laboratory - Chemistry and C hemistry - challengeOrdered By: Sherley Larsen on 08-29-2024 AST [Catalytic activity/Vol] 28 U/L 15-37 [facility] MCV (mean corpuscular volume ) determinationOrdered By: Sherley Larsen on 08-29-2024 MCV (RBC) [Entitic vol] 93.6 fL 80-[address] [facility] Mean corpuscular hemoglobin (MCH) determinationOrdered By: Sherley Larsen on 08-29-2024 MCH (RBC) [Entitic mass] 28.6 pg 27.0-32.0 [facility] Mean corpuscular hemoglobin concentration (MCHC) determinationOrdered By: Sherley Larsen on 08-29-2024 MCHC (RBC) [Mass/Vol] 30.5 g/dL Low 32-36 [facility] Mean platelet volume determi nationOrdered By: Sherley Larsen on 08-29-2024 Platelet mean volume (Bld) [Entitic vol] 9.8 fL 6.2-12.0 [facility] Monocyte percentageOrdered B y: Sherley Larsen on 08-29-2024 Monocytes/100 WBC (Bld) 10.2 % High 0-[address] [facility] Neutrophil percentageOrdered By: Sherley Larsen 08-29-2024 Neutrophils/100 WBC (Bld) 62.2 % 47-70 [facility] Nucleated red blood cell per centageOrdered By: Sherley Larsen on 08-29-2024 Nucleated RBC/100 WBC (Bld) [Ratio] 0 % 0-5 [facility] Platelet countOrdered By: Florence Larsen on 08-29-2024 Platelets (Bld) [#/Vol] 274 10*3/uL 150-450 [facility] Potassium measurementOrdered By: Sherley Larsen on 08-29-2024 Potassium [Moles/Vol] 3.6 mmol/L 3.5-5.1 [facility] RBC Auto (Bld) [#/Vol]Ordere d By: Sherley Larsen on 08-29-2024 RBC (Bld) [#/Vol] 4.09 10*6/uL Low 4.6-6.2 [facility] Serum anion gap measurementO rdered By: Sherley Larsen on 08-29-2024 Anion gap [Moles/Vol] 3 mmol/L Low 5-15 [facility] Serum globulin measurementOr dered By: Sherley Larsen on 08-29-2024 Globulin (S) [Mass/Vol] 4.0 g/dL 2.2-4.[address] [facility] Serum or plasma alanine hernandez otransferase (ALT) measurementOrdered By: Sherley Larsen on 08-29-2024 ALT [Catalytic activity/Vol] 10 U/L Low 16-61 [facility] Serum or plasma albumin rufus urement (mass/volume)Ordered By: Sherley Larsen on 08-29-2024 Albumin [Mass/Vol] 1.8 g/dL Low 3.2-5.0 [facility] Serum or plasma alkaline susie sphatase measurementOrdered By: Sherley Larsen on 08-29-2024 ALP [Catalytic activity/Vol] 109 U/L 45-117 [facility] Serum or plasma calcium rufus urement (mass/volume)Ordered By: Sherley Larsen 08-29-2024 Calcium [Mass/Vol] 8.1 mg/dL Low 8.5-10.1 [facility] Serum or plasma creatinine m easurement (mass/volume)Ordered By: Sherley Larsen on 08-29-2024 Creatinine [Mass/Vol] 0.37 mg/dL Low 0.70-1.30 [facility] Comment on above: The validity of the calculated GFR & GFRAA in patients over 70 years has not been determined. Clinical correlation is essential. Serum or plasma urea nitroge n measurement (mass/volume)Ordered By: Sherley Larsen on 08-29-2024 Urea nitrogen [Mass/Vol] 8 mg/dL 7-18 [facility] Sodium levelOrdered By: Sherley Larsen on 08-29-2024 Sodium [Moles/Vol] 138 mmol/L 136-145 [facility] Total proteinOrdered By: Lupe Larsen on 08-29-2024 Protein [Mass/Vol] 5.8 g/dL Low 6.4-8.2 [facility] White blood cell (WBC) count Ordered By: Sherley Larsen on 08-29-2024 WBC (Bld) [#/Vol] 4.6 10*3/uL 4.4-11.0 [facility] CBC W/Diff, Automatedon Absolute Lymph 1.06 X10 3/uL Normal 0.83-4.51 [facility] Comment on above: Performed By: #### L 100.0100, L500.4050 ####[facility] [address] [place], [address] Absolute Neut 3.5 X10 3/uL Normal 2.0-7.7 [facility] Comment on above: Performed By: #### L 100.0100, L500.4050 ####[facility] [address] [place], [address] Basophils/100 WBC (Bld) 0.4 % Normal 0-[address] [facility] Comment on above: Performed By: #### L 100.0100, L500.4050 ####[facility] [address] [place], [address] Eosinophils/100 WBC (Bld) 4.1 % Normal 0-5 [facility] Comment on above: Performed By: #### L 100.0100, L500.4050 ####[facility] [address] [place], [address] Erythrocyte distribution width (RBC) [Ratio] 17.4 % High 11.6-14.6 [facility] Comment on above: Performed By: #### L 100.0100, L500.4050 ####[facility] [address] [place], [address] Hematocrit (Bld) [Volume fraction] 39.8 % Low 40-54 [facility] Comment on above: Performed By: #### L 100.0100, L500.4050 ####[facility] [address] [place], [address] Hemoglobin (Bld) [Mass/Vol] 12.4 g/dL Low 13.0-16.5 [facility] Comment on above: Performed By: #### L 100.0100, L500.4050 ####[facility] [address] [place], [address] IG% 0.400 Normal 0.0-0.9 [facility] Comment on above: Result Comment: IG% - Immature Granulocytes (promyelocytes, myelocytes andmetamyelocytes) > 1% indicates that a LEFT SHIFT is Present. Performed By: #### L 100.0100, L500.4050 ####[facility] [address] [place], [address] Lymphocytes/100 WBC (Bld) 19.5 % Normal 19-41 [facility] Comment on above: Performed By: #### L 100.0100, L500.4050 ####[facility] [address] [place], [address] MCH (RBC) [Entitic mass] 28.7 pg Normal 27.0-32.0 [facility] Comment on above: Performed By: #### L 100.0100, L500.4050 ####[facility] [address] [place], [address] MCHC (RBC) [Mass/Vol] 31.2 g/dL Low 32-36 [facility] Comment on above: Performed By: #### L 100.0100, L500.4050 ####[facility] [address] [place], [address] MCV (RBC) [Entitic vol] 92.1 fL Normal 80-[address] [facility] Comment on above: Performed By: #### L 100.0100, L500.4050 ####[facility] [address] [place], [address] Monocytes/100 WBC (Bld) 10.5 % High 0-[address] [facility] Comment on above: Performed By: #### L 100.0100, L500.4050 ####[facility] [address] [place], [address] Neutrophils/100 WBC (Bld) 65.1 % Normal 47-70 [facility] Comment on above: Performed By: #### L 100.0100, L500.4050 ####[facility] [address] [place], [address] Nucleated RBC (Bld) [#/Vol] 0 10*3/uL Normal 0-5 [facility] Comment on above: Performed By: #### L 100.0100, L500.4050 ####[facility] [address] [place], [address] Platelet mean volume (Bld) [Entitic vol] 9.9 fL Normal 6.2-12.0 [facility] Comment on above: Performed By: #### L 100.0100, L500.4050 ####[facility] [address] [place], [address] Platelets (Bld) [#/Vol] 258 10*3/uL Normal 150-450 [facility] Comment on above: Performed By: #### L 100.0100, L500.4050 ####[facility] [address] [place], [address] RBC (Bld) [#/Vol] 4.32 10*6/uL Low 4.6-6.2 [facility] Comment on above: Performed By: #### L 100.0100, L500.4050 ####[facility] [address] [place], [address] RDW SD 58.5 fl High 35.1-43.9 [facility] Comment on above: Performed By: #### L 100.0100, L500.4050 ####[facility] [address] [place], [address] WBC (Bld) [#/Vol] 5.4 10*3/uL Normal 4.4-11.0 [facility] Comment on above: Performed By: #### L 100.0100, L500.4050 ####[facility] [address] [place], [address] Comprehensive Metabolic Prof ilon 08-28-2024 Albumin [Mass/Vol] 1.9 g/dL Low 3.2-5.0 [facility] Comment on above: Performed By: #### L 100.0100, L500.4050 ####[facility] [address] [place], [address] Albumin/Globulin [Mass ratio] 0.5 {ratio} Low 0.9-2.4 [facility] Comment on above: Performed By: #### L 100.0100, L500.4050 ####[facility] [address] [place], [address] ALK P 113 U/L Normal 45-117 [facility] Comment on above: Performed By: #### L 100.0100, L500.4050 ####[facility] [address] [place], [address] ALT [Catalytic activity/Vol] 9 U/L Low 16-61 [facility] Comment on above: Performed By: #### L 100.0100, L500.4050 ####[facility] [address] [place], [address] AST [Catalytic activity/Vol] 26 U/L Normal 15-37 [facility] Comment on above: Performed By: #### L 100.0100, L500.4050 ####[facility] [address] [place], [address] Bilirubin [Mass/Vol] 0.30 mg/dL Normal 0.20-1.00 [facility] Comment on above: Result Comment: For patients on eltrombopag therapy, use of Dimension [place] TBIL is not recommended. Performed By: #### L 100.0100, L500.4050 ####[facility] [address] [place], [address] BUN/CRE 12.2 RATIO Normal 10-20 [facility] Comment on above: Performed By: #### L 100.0100, L500.4050 ####[facility] [address] [place], [address] CA,Total 8.2 mg/dL Low 8.5-10.1 [facility] Comment on above: Performed By: #### L 100.0100, L500.4050 ####[facility] [address] [place], [address] Chloride [Moles/Vol] 103 mmol/L Normal 98-107 [facility] Comment on above: Performed By: #### L 100.0100, L500.4050 ####[facility] [address] [place], [address] CO2 [Moles/Vol] 30.0 mmol/L Normal 21.0-32.0 [facility] Comment on above: Performed By: #### L 100.0100, L500.4050 ####[facility] [address] [place], [address] Creatinine [Mass/Vol] 0.49 mg/dL Low 0.70-1.30 [facility] Comment on above: Result Comment: The validity of the calculated GFR GFRAA in patients over70 years has not been determined. Clinical correlation isessential. Performed By: #### L 100.0100, L500.4050 ####[facility] [address] [place], [address] ECRCL 273.95 ml/min Normal [facility] Comment on above: Performed By: #### L 100.0100, L500.4050 ####[facility] [address] [place], [address] EST GFR - AA 220 mL/min Normal >60 [facility] Comment on above: Result Comment: Afri can Sammarinese GFR Calc Performed By: #### L 100.0100, L500.4050 ####[facility] [address] [place], [address] GAP 4 Low 5-15 [facility] Comment on above: Performed By: #### L 100.0100, L500.4050 ####[facility] [address] [place], [address] GFR/1.73 sq M.predicted among non-blacks MDRD (S/P/Bld) [Vol rate/Area] 182 mL/min/{1.73_m2} Normal >60 [facility] Comment on above: Result Comment: Non- GFR Calc Performed By: #### L 100.0100, L500.4050 ####[facility] [address] [place], [address] Globulin (S) [Mass/Vol] 4.1 g/dL Normal 2.2-4.[address] [facility] Comment on above: Performed By: #### L 100.0100, L500.4050 ####[facility] [address] [place], [address] Glucose [Mass/Vol] 110 mg/dL High 74-106 [facility] Comment on above: Result Comment: Fast ing Glucose result from 100 to 125 mg/dLsuggests IMPAIRED HOMEOSTASIS per A.D.A. criteria. Performed By: #### L 100.0100, L500.4050 ####[facility] [address] [place], [address] Potassium [Moles/Vol] 3.8 mmol/L Normal 3.5-5.1 [facility] Comment on above: Performed By: #### L 100.0100, L500.4050 ####[facility] [address] [place], [address] Sodium [Moles/Vol] 137 mmol/L Normal 136-145 [facility] Comment on above: Performed By: #### L 100.0100, L500.4050 ####[facility] [address] [place], [address] T PROT 6.0 g/dL Low 6.4-8.2 [facility] Comment on above: Performed By: #### L 100.0100, L500.4050 ####[facility] [address] [place], [address] Urea nitrogen [Mass/Vol] 6 mg/dL Low 7-18 [facility] Comment on above: Performed By: #### L 100.0100, L500.4050 ####[facility] [address] [place], [address] Culture, Blood (WB)on 2024 CUB Normal [facility] Comment on above: Performed By: #### M 200.1000 ####[facility] [address] [place], [address] Blood cultureOrdered By: Lupe Larsen on 08-27-2024 Bacteria identified Cx Nom (Bld) No growth in 5 days. [facility] CBC W/Diff, Automatedon Absolute Lymph 1.17 X10 3/uL Normal 0.83-4.51 [facility] Comment on above: Performed By: #### L 500.4050, L100.0100 ####[facility] [address] [place], [address] Absolute Neut 2.8 X10 3/uL Normal 2.0-7.7 [facility] Comment on above: Performed By: #### L 500.4050, L100.0100 ####[facility] [address] [place], [address] Basophils/100 WBC (Bld) 0.6 % Normal 0-[address] [facility] Comment on above: Performed By: #### L 500.4050, L100.0100 ####[facility] [address] [place], [address] Eosinophils/100 WBC (Bld) 4.8 % Normal 0-5 [facility] Comment on above: Performed By: #### L 500.4050, L100.0100 ####[facility] [address] [place], [address] Erythrocyte distribution width (RBC) [Ratio] 17.6 % High 11.6-14.6 [facility] Comment on above: Performed By: #### L 500.4050, L100.0100 ####[facility] [address] [place], [address] Hematocrit (Bld) [Volume fraction] 36.2 % Low 40-54 [facility] Comment on above: Performed By: #### L 500.4050, L100.0100 ####[facility] [address] [place], [address] Hemoglobin (Bld) [Mass/Vol] 11.4 g/dL Low 13.0-16.5 [facility] Comment on above: Performed By: #### L 500.4050, L100.0100 ####[facility] [address] [place], [address] IG% 0.400 Normal 0.0-0.9 [facility] Comment on above: Result Comment: IG% - Immature Granulocytes (promyelocytes, myelocytes andmetamyelocytes) > 1% indicates that a LEFT SHIFT is Present. Performed By: #### L 500.4050, L100.0100 ####[facility] [address] [place], [address] Lymphocytes/100 WBC (Bld) 24.3 % Normal 19-41 [facility] Comment on above: Performed By: #### L 500.4050, L100.0100 ####[facility] [address] [place], [address] MCH (RBC) [Entitic mass] 28.8 pg Normal 27.0-32.0 [facility] Comment on above: Performed By: #### L 500.4050, L100.0100 ####[facility] [address] [place], [address] MCHC (RBC) [Mass/Vol] 31.5 g/dL Low 32-36 [facility] Comment on above: Performed By: #### L 500.4050, L100.0100 ####[facility] [address] [place], [address] MCV (RBC) [Entitic vol] 91.4 fL Normal 80-[address] [facility] Comment on above: Performed By: #### L 500.4050, L100.0100 ####[facility] [address] [place], [address] Monocytes/100 WBC (Bld) 11.8 % High 0-[address] [facility] Comment on above: Performed By: #### L 500.4050, L100.0100 ####[facility] [address] [place], [address] Neutrophils/100 WBC (Bld) 58.1 % Normal 47-70 [facility] Comment on above: Performed By: #### L 500.4050, L100.0100 ####[facility] [address] [place], [address] Nucleated RBC (Bld) [#/Vol] 0 10*3/uL Normal 0-5 [facility] Comment on above: Performed By: #### L 500.4050, L100.0100 ####[facility] [address] [place], [address] Platelet mean volume (Bld) [Entitic vol] 10.2 fL Normal 6.2-12.0 [facility] Comment on above: Performed By: #### L 500.4050, L100.0100 ####[facility] [address] [place], [address] Platelets (Bld) [#/Vol] 225 10*3/uL Normal 150-450 [facility] Comment on above: Performed By: #### L 500.4050, L100.0100 ####[facility] [address] [place], [address] RBC (Bld) [#/Vol] 3.96 10*6/uL Low 4.6-6.2 [facility] Comment on above: Performed By: #### L 500.4050, L100.0100 ####[facility] [address] [place], [address] RDW SD 58.7 fl High 35.1-43.9 [facility] Comment on above: Performed By: #### L 500.4050, L100.0100 ####[facility] [address] [place], [address] WBC (Bld) [#/Vol] 4.8 10*3/uL Normal 4.4-11.0 [facility] Comment on above: Performed By: #### L 500.4050, L100.0100 ####[facility] [address] [place], [address] Comprehensive Metabolic Prof ilon 08-27-2024 Albumin [Mass/Vol] 1.7 g/dL Low 3.2-5.0 [facility] Comment on above: Performed By: #### L 500.4050, L100.0100 ####[facility] [address] [place], [address] Albumin/Globulin [Mass ratio] 0.4 {ratio} Low 0.9-2.4 [facility] Comment on above: Performed By: #### L 500.4050, L100.0100 ####[facility] [address] [place], [address] ALK P 116 U/L Normal 45-117 [facility] Comment on above: Performed By: #### L 500.4050, L100.0100 ####[facility] [address] [place], [address] ALT [Catalytic activity/Vol] 12 U/L Low 16-61 [facility] Comment on above: Performed By: #### L 500.4050, L100.0100 ####[facility] [address] [place], [address] AST [Catalytic activity/Vol] 22 U/L Normal 15-37 [facility] Comment on above: Performed By: #### L 500.4050, L100.0100 ####[facility] [address] [place], [address] Bilirubin [Mass/Vol] 0.40 mg/dL Normal 0.20-1.00 [facility] Comment on above: Result Comment: For patients on eltrombopag therapy, use of Dimension [place] TBIL is not recommended. Performed By: #### L 500.4050, L100.0100 ####[facility] [address] [place], [address] BUN/CRE 14.3 RATIO Normal 10-20 [facility] Comment on above: Performed By: #### L 500.4050, L100.0100 ####[facility] [address] [place], [address] CA,Total 7.8 mg/dL Low 8.5-10.1 [facility] Comment on above: Performed By: #### L 500.4050, L100.0100 ####[facility] [address] [place], [address] Chloride [Moles/Vol] 103 mmol/L Normal 98-107 [facility] Comment on above: Performed By: #### L 500.4050, L100.0100 ####[facility] [address] [place], [address] CO2 [Moles/Vol] 31.0 mmol/L Normal 21.0-32.0 [facility] Comment on above: Performed By: #### L 500.4050, L100.0100 ####[facility] [address] [place], [address] Creatinine [Mass/Vol] 0.42 mg/dL Low 0.70-1.30 [facility] Comment on above: Result Comment: The validity of the calculated GFR GFRAA in patients over70 years has not been determined. Clinical correlation isessential. Performed By: #### L 500.4050, L100.0100 ####[facility] [address] [place], [address] ECRCL 319.61 ml/min Normal [facility] Comment on above: Performed By: #### L 500.4050, L100.0100 ####[facility] [address] [place], [address] EST GFR - AA 263 mL/min Normal >60 [facility] Comment on above: Result Comment: Afri can [place] GFR Calc Performed By: #### L 500.4050, L100.0100 ####[facility] [address] [place], [address] GAP 2 Low 5-15 [facility] Comment on above: Performed By: #### L 500.4050, L100.0100 ####[facility] [address] [place], [address] GFR/1.73 sq M.predicted among non-blacks MDRD (S/P/Bld) [Vol rate/Area] 218 mL/min/{1.73_m2} Normal >60 [facility] Comment on above: Result Comment: Non- GFR Calc Performed By: #### L 500.4050, L100.0100 ####[facility] [address] [place], [address] Globulin (S) [Mass/Vol] 3.9 g/dL Normal 2.2-4.2 [facility] Comment on above: Performed By: #### L 500.4050, L100.0100 ####[facility] [address] [place], [address] Glucose [Mass/Vol] 113 mg/dL High 74-106 [facility] Comment on above: Result Comment: Fast ing Glucose result from 100 to 125 mg/dLsuggests IMPAIRED HOMEOSTASIS per A.D.A. criteria. Performed By: #### L 500.4050, L100.0100 ####[facility] [address] [place], [address] Potassium [Moles/Vol] 4.0 mmol/L Normal 3.5-5.1 [facility] Comment on above: Performed By: #### L 500.4050, L100.0100 ####[facility] [address] [place], [address] Sodium [Moles/Vol] 136 mmol/L Normal 136-145 [facility] Comment on above: Performed By: #### L 500.4050, L100.0100 ####[facility] [address] [place], [address] T PROT 5.6 g/dL Low 6.4-8.2 [facility] Comment on above: Performed By: #### L 500.4050, L100.0100 ####[facility] [address] [place], [address] Urea nitrogen [Mass/Vol] 6 mg/dL Low 7-18 [facility] Comment on above: Performed By: #### L 500.4050, L100.0100 ####[facility] [address] [place], [address] CBC W/Diff, Automatedon 01-0 6-2024 Absolute Lymph 1.03 X10 3/uL Normal 0.83-4.51 [facility] Comment on above: Performed By: #### L 500.4050, L100.0100 ####[facility] [address] [place], [address] Absolute Neut 3.2 X10 3/uL Normal 2.0-7.7 [facility] Comment on above: Performed By: #### L 500.4050, L100.0100 ####[facility] [address] [place], [address] Basophils/100 WBC (Bld) 0.8 % Normal 0-[address] [facility] Comment on above: Performed By: #### L 500.4050, L100.0100 ####[facility] [address] [place], [address] Eosinophils/100 WBC (Bld) 4.1 % Normal 0-5 [facility] Comment on above: Performed By: #### L 500.4050, L100.0100 ####[facility] [address] [place], [address] Erythrocyte distribution width (RBC) [Ratio] 17.5 % High 11.6-14.6 [facility] Comment on above: Performed By: #### L 500.4050, L100.0100 ####[facility] [address] [place], [address] Hematocrit (Bld) [Volume fraction] 38.3 % Low 40-54 [facility] Comment on above: Performed By: #### L 500.4050, L100.0100 ####[facility] [address] [place], [address] Hemoglobin (Bld) [Mass/Vol] 12.0 g/dL Low 13.0-16.5 [facility] Comment on above: Performed By: #### L 500.4050, L100.0100 ####[facility] [address] [place], [address] IG% 0.600 Normal 0.0-0.9 [facility] Comment on above: Result Comment: IG% - Immature Granulocytes (promyelocytes, myelocytes andmetamyelocytes) > 1% indicates that a LEFT SHIFT is Present. Performed By: #### L 500.4050, L100.0100 ####[facility] [address] [place], [address] Lymphocytes/100 WBC (Bld) 20.3 % Normal 19-41 [facility] Comment on above: Performed By: #### L 500.4050, L100.0100 ####[facility] [address] [place], [address] MCH (RBC) [Entitic mass] 28.7 pg Normal 27.0-32.0 [facility] Comment on above: Performed By: #### L 500.4050, L100.0100 ####[facility] [address] [place], [address] MCHC (RBC) [Mass/Vol] 31.3 g/dL Low 32-36 [facility] Comment on above: Performed By: #### L 500.4050, L100.0100 ####[facility] [address] [place], [address] MCV (RBC) [Entitic vol] 91.6 fL Normal 80-[address] [facility] Comment on above: Performed By: #### L 500.4050, L100.0100 ####[facility] [address] [place], [address] Monocytes/100 WBC (Bld) 11.2 % High 0-[address] [facility] Comment on above: Performed By: #### L 500.4050, L100.0100 ####[facility] [address] [place], [address] Neutrophils/100 WBC (Bld) 63.0 % Normal 47-70 [facility] Comment on above: Performed By: #### L 500.4050, L100.0100 ####[facility] [address] [place], [address] Nucleated RBC (Bld) [#/Vol] 0 10*3/uL Normal 0-5 [facility] Comment on above: Performed By: #### L 500.4050, L100.0100 ####[facility] [address] [place], [address] Platelet mean volume (Bld) [Entitic vol] 10.6 fL Normal 6.2-12.0 [facility] Comment on above: Performed By: #### L 500.4050, L100.0100 ####[facility] [address] [place], [address] Platelets (Bld) [#/Vol] 225 10*3/uL Normal 150-450 [facility] Comment on above: Performed By: #### L 500.4050, L100.0100 ####[facility] [address] [place], [address] RBC (Bld) [#/Vol] 4.18 10*6/uL Low 4.6-6.2 [facility] Comment on above: Performed By: #### L 500.4050, L100.0100 ####[facility] [address] [place], [address] RDW SD 58.8 fl High 35.1-43.9 [facility] Comment on above: Performed By: #### L 500.4050, L100.0100 ####[facility] [address] [place], [address] WBC (Bld) [#/Vol] 5.1 10*3/uL Normal 4.4-11.0 [facility] Comment on above: Performed By: #### L 500.4050, L100.0100 ####[facility] [address] [place], [address] Comprehensive Metabolic Prof ilon 08-26-2024 Albumin [Mass/Vol] 1.7 g/dL Low 3.2-5.0 [facility] Comment on above: Performed By: #### L 500.4050, L100.0100 ####[facility] [address] [place], [address] Albumin/Globulin [Mass ratio] 0.4 {ratio} Low 0.9-2.4 [facility] Comment on above: Performed By: #### L 500.4050, L100.0100 ####[facility] [address] [place], [address] ALK P 122 U/L High 45-117 [facility] Comment on above: Performed By: #### L 500.4050, L100.0100 ####[facility] [address] [place], [address] ALT [Catalytic activity/Vol] 10 U/L Low 16-61 [facility] Comment on above: Performed By: #### L 500.4050, L100.0100 ####[facility] [address] [place], [address] AST [Catalytic activity/Vol] 22 U/L Normal 15-37 [facility] Comment on above: Performed By: #### L 500.4050, L100.0100 ####[facility] [address] [place], [address] Bilirubin [Mass/Vol] 0.50 mg/dL Normal 0.20-1.00 [facility] Comment on above: Result Comment: For patients on eltrombopag therapy, use of Dimension [place] TBIL is not recommended. Performed By: #### L 500.4050, L100.0100 ####[facility] [address] [place], [address] BUN/CRE 13.4 RATIO Normal 10-20 [facility] Comment on above: Performed By: #### L 500.4050, L100.0100 ####[facility] [address] [place], [address] CA,Total 7.6 mg/dL Low 8.5-10.1 [facility] Comment on above: Performed By: #### L 500.4050, L100.0100 ####[facility] [address] [place], [address] Chloride [Moles/Vol] 101 mmol/L Normal 98-107 [facility] Comment on above: Performed By: #### L 500.4050, L100.0100 ####[facility] [address] [place], [address] CO2 [Moles/Vol] 33.0 mmol/L High 21.0-32.0 [facility] Comment on above: Performed By: #### L 500.4050, L100.0100 ####[facility] [address] [place], [address] Creatinine [Mass/Vol] 0.45 mg/dL Low 0.70-1.30 [facility] Comment on above: Result Comment: The validity of the calculated GFR GFRAA in patients over70 years has not been determined. Clinical correlation isessential. Performed By: #### L 500.4050, L100.0100 ####[facility] [address] [place], [address] ECRCL 298.30 ml/min Normal [facility] Comment on above: Performed By: #### L 500.4050, L100.0100 ####[facility] [address] [place], [address] EST GFR - AA 246 mL/min Normal >60 [facility] Comment on above: Result Comment: Afri can Sammarinese GFR Calc Performed By: #### L 500.4050, L100.0100 ####[facility] [address] [place], [address] GAP 2 Low 5-15 [facility] Comment on above: Performed By: #### L 500.4050, L100.0100 ####[facility] [address] [place], [address] GFR/1.73 sq M.predicted among non-blacks MDRD (S/P/Bld) [Vol rate/Area] 203 mL/min/{1.73_m2} Normal >60 [facility] Comment on above: Result Comment: Non- GFR Calc Performed By: #### L 500.4050, L100.0100 ####[facility] [address] [place], [address] Globulin (S) [Mass/Vol] 4.0 g/dL Normal 2.2-4.[address] [facility] Comment on above: Performed By: #### L 500.4050, L100.0100 ####[facility] [address] [place], [address] Glucose [Mass/Vol] 129 mg/dL High 74-106 [facility] Comment on above: Result Comment: Fast ing Glucose result greater than or equal to 126 mg/dLsuggests DIABETES MELLITUS per A.D.A. criteria. Performed By: #### L 500.4050, L100.0100 ####[facility] [address] [place], [address] Potassium [Moles/Vol] 4.2 mmol/L Normal 3.5-5.1 [facility] Comment on above: Performed By: #### L 500.4050, L100.0100 ####[facility] [address] [place], [address] Sodium [Moles/Vol] 136 mmol/L Normal 136-145 [facility] Comment on above: Performed By: #### L 500.4050, L100.0100 ####[facility] [address] [place], [address] T PROT 5.7 g/dL Low 6.4-8.2 [facility] Comment on above: Performed By: #### L 500.4050, L100.0100 ####[facility] [address] [place], [address] Urea nitrogen [Mass/Vol] 6 mg/dL Low 7-18 [facility] Comment on above: Performed By: #### L 500.4050, L100.0100 ####[facility] [address] [place], [address] Echo Complete W/ Contraston 08-26-2024 Echo Complete W/ Contrast Normal [facility] Urine Cultureon 08-26-2024 URC Normal [facility] Comment on above: Performed By: #### M 100.678, M100.2200, L400.0001 ####[facility] [address] [place], [address] CBC W/Diff, Automatedon 01-0 5-2025 Absolute Lymph 1.26 X10 3/uL Normal 0.83-4.51 [facility] Comment on above: Performed By: #### L 500.4050, L100.0100 ####[facility] [address] [place], [address] Absolute Neut 3.9 X10 3/uL Normal 2.0-7.7 [facility] Comment on above: Performed By: #### L 500.4050, L100.0100 ####[facility] [address] [place], [address] Basophils/100 WBC (Bld) 0.5 % Normal 0-[address] [facility] Comment on above: Performed By: #### L 500.4050, L100.0100 ####[facility] [address] [place], [address] Eosinophils/100 WBC (Bld) 4.3 % Normal 0-5 [facility] Comment on above: Performed By: #### L 500.4050, L100.0100 ####[facility] [address] [place], [address] Erythrocyte distribution width (RBC) [Ratio] 17.6 % High 11.6-14.6 [facility] Comment on above: Performed By: #### L 500.4050, L100.0100 ####[facility] [address] [place], [address] Hematocrit (Bld) [Volume fraction] 40.6 % Normal 40-54 [facility] Comment on above: Performed By: #### L 500.4050, L100.0100 ####[facility] [address] [place], [address] Hemoglobin (Bld) [Mass/Vol] 12.6 g/dL Low 13.0-16.5 [facility] Comment on above: Performed By: #### L 500.4050, L100.0100 ####[facility] [address] [place], [address] IG% 0.300 Normal 0.0-0.9 [facility] Comment on above: Result Comment: IG% - Immature Granulocytes (promyelocytes, myelocytes andmetamyelocytes) > 1% indicates that a LEFT SHIFT is Present. Performed By: #### L 500.4050, L100.0100 ####[facility] [address] [place], [address] Lymphocytes/100 WBC (Bld) 20.8 % Normal 19-41 [facility] Comment on above: Performed By: #### L 500.4050, L100.0100 ####[facility] [address] [place], [address] MCH (RBC) [Entitic mass] 28.6 pg Normal 27.0-32.0 [facility] Comment on above: Performed By: #### L 500.4050, L100.0100 ####[facility] [address] [place], [address] MCHC (RBC) [Mass/Vol] 31.0 g/dL Low 32-36 [facility] Comment on above: Performed By: #### L 500.4050, L100.0100 ####[facility] [address] [place], [address] MCV (RBC) [Entitic vol] 92.1 fL Normal 80-[address] [facility] Comment on above: Performed By: #### L 500.4050, L100.0100 ####[facility] [address] [place], [address] Monocytes/100 WBC (Bld) 9.2 % Normal 0-[address] [facility] Comment on above: Performed By: #### L 500.4050, L100.0100 ####[facility] [address] [place], [address] Neutrophils/100 WBC (Bld) 64.9 % Normal 47-70 [facility] Comment on above: Performed By: #### L 500.4050, L100.0100 ####[facility] [address] [place], [address] Nucleated RBC (Bld) [#/Vol] 0 10*3/uL Normal 0-5 [facility] Comment on above: Performed By: #### L 500.4050, L100.0100 ####[facility] [address] [place], [address] Platelet mean volume (Bld) [Entitic vol] 10.3 fL Normal 6.2-12.0 [facility] Comment on above: Performed By: #### L 500.4050, L100.0100 ####[facility] [address] [place], [address] Platelets (Bld) [#/Vol] 251 10*3/uL Normal 150-450 [facility] Comment on above: Performed By: #### L 500.4050, L100.0100 ####[facility] [address] [place], [address] RBC (Bld) [#/Vol] 4.41 10*6/uL Low 4.6-6.2 [facility] Comment on above: Performed By: #### L 500.4050, L100.0100 ####[facility] [address] [place], [address] RDW SD 60.0 fl High 35.1-43.9 [facility] Comment on above: Performed By: #### L 500.4050, L100.0100 ####[facility] [address] [place], [address] WBC (Bld) [#/Vol] 6.1 10*3/uL Normal 4.4-11.0 [facility] Comment on above: Performed By: #### L 500.4050, L100.0100 ####[facility] [address] [place], [address] Comprehensive Metabolic Prof ilon 08-25-2024 Albumin [Mass/Vol] 1.8 g/dL Low 3.2-5.0 [facility] Comment on above: Performed By: #### L 500.4050, L100.0100 ####[facility] [address] [place], [address] Albumin/Globulin [Mass ratio] 0.4 {ratio} Low 0.9-2.4 [facility] Comment on above: Performed By: #### L 500.4050, L100.0100 ####[facility] [address] [place], [address] ALK P 134 U/L High 45-117 [facility] Comment on above: Performed By: #### L 500.4050, L100.0100 ####[facility] [address] [place], [address] ALT [Catalytic activity/Vol] 11 U/L Low 16-61 [facility] Comment on above: Performed By: #### L 500.4050, L100.0100 ####[facility] [address] [place], [address] AST [Catalytic activity/Vol] 15 U/L Normal 15-37 [facility] Comment on above: Performed By: #### L 500.4050, L100.0100 ####[facility] [address] [place], [address] Bilirubin [Mass/Vol] 0.40 mg/dL Normal 0.20-1.00 [facility] Comment on above: Result Comment: For patients on eltrombopag therapy, use of Dimension [place] TBIL is not recommended. Performed By: #### L 500.4050, L100.0100 ####[facility] [address] [place], [address] BUN/CRE 15.7 RATIO Normal 10-20 [facility] Comment on above: Performed By: #### L 500.4050, L100.0100 ####[facility] [address] [place], [address] CA,Total 8.0 mg/dL Low 8.5-10.1 [facility] Comment on above: Performed By: #### L 500.4050, L100.0100 ####[facility] [address] [place], [address] Chloride [Moles/Vol] 100 mmol/L Normal 98-107 [facility] Comment on above: Performed By: #### L 500.4050, L100.0100 ####[facility] [address] [place], [address] CO2 [Moles/Vol] 34.0 mmol/L High 21.0-32.0 [facility] Comment on above: Performed By: #### L 500.4050, L100.0100 ####[facility] [address] [place], [address] Creatinine [Mass/Vol] 0.44 mg/dL Low 0.70-1.30 [facility] Comment on above: Result Comment: The validity of the calculated GFR GFRAA in patients over70 years has not been determined. Clinical correlation isessential. Performed By: #### L 500.4050, L100.0100 ####[facility] [address] [place], [address] ECRCL 305.08 ml/min Normal [facility] Comment on above: Performed By: #### L 500.4050, L100.0100 ####[facility] [address] [place], [address] EST GFR - AA 247 mL/min Normal >60 [facility] Comment on above: Result Comment: Afri can S[place] GFR Calc Performed By: #### L 500.4050, L100.0100 ####[facility] [address] [place], [address] GAP 3 Low 5-15 [facility] Comment on above: Performed By: #### L 500.4050, L100.0100 ####[facility] [address] [place], [address] GFR/1.73 sq M.predicted among non-blacks MDRD (S/P/Bld) [Vol rate/Area] 204 mL/min/{1.73_m2} Normal >60 [facility] Comment on above: Result Comment: Non- GFR Calc Performed By: #### L 500.4050, L100.0100 ####[facility] [address] [place], [address] Globulin (S) [Mass/Vol] 4.1 g/dL Normal 2.2-4.2 [facility] Comment on above: Performed By: #### L 500.4050, L100.0100 ####[facility] [address] [place], [address] Glucose [Mass/Vol] 114 mg/dL High 74-106 [facility] Comment on above: Result Comment: Fast ing Glucose result from 100 to 125 mg/dLsuggests IMPAIRED HOMEOSTASIS per A.D.A. criteria. Performed By: #### L 500.4050, L100.0100 ####[facility] [address] [place], [address] Potassium [Moles/Vol] 3.9 mmol/L Normal 3.5-5.1 [facility] Comment on above: Performed By: #### L 500.4050, L100.0100 ####[facility] [address] [place], [address] Sodium [Moles/Vol] 137 mmol/L Normal 136-145 [facility] Comment on above: Performed By: #### L 500.4050, L100.0100 ####[facility] [address] [place], [address] T PROT 5.9 g/dL Low 6.4-8.2 [facility] Comment on above: Performed By: #### L 500.4050, L100.0100 ####[facility] [address] [place], [address] Urea nitrogen [Mass/Vol] 7 mg/dL Normal 7-18 [facility] Comment on above: Performed By: #### L 500.4050, L100.0100 ####[facility] [address] [place], [address] BNP (brain natriuretic pepti de measurement)Ordered By: Sherley Larsen on 08-24-2024 Natriuretic peptide B (Bld) [Mass/Vol] 70.1 pg/mL 0-100 [facility] BNP,B-Type NATRIURETIC PEPTI Francisco J 08-24-2024 Natriuretic peptide B (Bld) [Mass/Vol] 70.1 pg/mL Normal 0-100 [facility] Comment on above: Performed By: #### L 503.6685 ####[facility] [address] [place], [address] CBC W/Diff, Automatedon Absolute Lymph 1.47 X10 3/uL Normal 0.83-4.51 [facility] Comment on above: Performed By: #### L 100.0100, L500.4050 ####[facility] [address] [place], [address] Absolute Neut 4.5 X10 3/uL Normal 2.0-7.7 [facility] Comment on above: Performed By: #### L 100.0100, L500.4050 ####[facility] [address] [place], [address] Basophils/100 WBC (Bld) 0.4 % Normal 0-[address] [facility] Comment on above: Performed By: #### L 100.0100, L500.4050 ####[facility] [address] [place], [address] Eosinophils/100 WBC (Bld) 4.1 % Normal 0-5 [facility] Comment on above: Performed By: #### L 100.0100, L500.4050 ####[facility] [address] [place], [address] Erythrocyte distribution width (RBC) [Ratio] 17.5 % High 11.6-14.6 [facility] Comment on above: Performed By: #### L 100.0100, L500.4050 ####[facility] [address] [place], [address] Hematocrit (Bld) [Volume fraction] 38.6 % Low 40-54 [facility] Comment on above: Performed By: #### L 100.0100, L500.4050 ####[facility] [address] [place], [address] Hemoglobin (Bld) [Mass/Vol] 12.4 g/dL Low 13.0-16.5 [facility] Comment on above: Performed By: #### L 100.0100, L500.4050 ####[facility] [address] [place], [address] IG% 0.300 Normal 0.0-0.9 [facility] Comment on above: Result Comment: IG% - Immature Granulocytes (promyelocytes, myelocytes andmetamyelocytes) > 1% indicates that a LEFT SHIFT is Present. Performed By: #### L 100.0100, L500.4050 ####[facility] [address] [place], [address] Lymphocytes/100 WBC (Bld) 21.0 % Normal 19-41 [facility] Comment on above: Performed By: #### L 100.0100, L500.4050 ####[facility] [address] [place], [address] MCH (RBC) [Entitic mass] 28.4 pg Normal 27.0-32.0 [facility] Comment on above: Performed By: #### L 100.0100, L500.4050 ####[facility] [address] [place], [address] MCHC (RBC) [Mass/Vol] 32.1 g/dL Normal 32-36 [facility] Comment on above: Performed By: #### L 100.0100, L500.4050 ####[facility] [address] [place], [address] MCV (RBC) [Entitic vol] 88.5 fL Normal 80-94 [facility] Comment on above: Performed By: #### L 100.0100, L500.4050 ####[facility] [address] [place], [address] Monocytes/100 WBC (Bld) 10.0 % Normal 0-10 [facility] Comment on above: Performed By: #### L 100.0100, L500.4050 ####[facility] [address] [place], [address] Neutrophils/100 WBC (Bld) 64.2 % Normal 47-70 [facility] Comment on above: Performed By: #### L 100.0100, L500.4050 ####[facility] [address] [place], [address] Nucleated RBC (Bld) [#/Vol] 0 10*3/uL Normal 0-5 [facility] Comment on above: Performed By: #### L 100.0100, L500.4050 ####[facility] [address] [place], [address] Platelet mean volume (Bld) [Entitic vol] 10.0 fL Normal 6.2-12.0 [facility] Comment on above: Performed By: #### L 100.0100, L500.4050 ####[facility] [address] [place], [address] Platelets (Bld) [#/Vol] 220 10*3/uL Normal 150-450 [facility] Comment on above: Performed By: #### L 100.0100, L500.4050 ####[facility] [address] [place], [address] RBC (Bld) [#/Vol] 4.36 10*6/uL Low 4.6-6.2 [facility] Comment on above: Performed By: #### L 100.0100, L500.4050 ####[facility] [address] [place], [address] RDW SD 57.2 fl High 35.1-43.9 [facility] Comment on above: Performed By: #### L 100.0100, L500.4050 ####[facility] [address] [place], [address] WBC (Bld) [#/Vol] 7.0 10*3/uL Normal 4.4-11.0 [facility] Comment on above: Performed By: #### L 100.0100, L500.4050 ####[facility] [address] [place], [address] Comprehensive Metabolic Prof ilon 08-24-2024 Albumin [Mass/Vol] 1.8 g/dL Low 3.2-5.0 [facility] Comment on above: Performed By: #### L 100.0100, L500.4050 ####[facility] [address] [place], [address] Albumin/Globulin [Mass ratio] 0.5 {ratio} Low 0.9-2.4 [facility] Comment on above: Performed By: #### L 100.0100, L500.4050 ####[facility] [address] [place], [address] ALK P 149 U/L High 45-117 [facility] Comment on above: Performed By: #### L 100.0100, L500.4050 ####[facility] [address] [place], [address] ALT [Catalytic activity/Vol] 11 U/L Low 16-61 [facility] Comment on above: Performed By: #### L 100.0100, L500.4050 ####[facility] [address] [place], [address] AST [Catalytic activity/Vol] 17 U/L Normal 15-37 [facility] Comment on above: Performed By: #### L 100.0100, L500.4050 ####[facility] [address] [place], [address] Bilirubin [Mass/Vol] 0.60 mg/dL Normal 0.20-1.00 [facility] Comment on above: Result Comment: For patients on eltrombopag therapy, use of Dimension [place] TBIL is not recommended. Performed By: #### L 100.0100, L500.4050 ####[facility] [address] [place], [address] BUN/CRE 14.6 RATIO Normal 10-20 [facility] Comment on above: Performed By: #### L 100.0100, L500.4050 ####[facility] [address] [place], [address] CA,Total 7.5 mg/dL Low 8.5-10.1 [facility] Comment on above: Performed By: #### L 100.0100, L500.4050 ####[facility] [address] [place], [address] Chloride [Moles/Vol] 100 mmol/L Normal 98-107 [facility] Comment on above: Performed By: #### L 100.0100, L500.4050 ####[facility] [address] [place], [address] CO2 [Moles/Vol] 32.0 mmol/L Normal 21.0-32.0 [facility] Comment on above: Performed By: #### L 100.0100, L500.4050 ####[facility] [address] [place], [address] Creatinine [Mass/Vol] 0.48 mg/dL Low 0.70-1.30 [facility] Comment on above: Result Comment: The validity of the calculated GFR GFRAA in patients over70 years has not been determined. Clinical correlation isessential. Performed By: #### L 100.0100, L500.4050 ####[facility] [address] [place], [address] ECRCL 279.66 ml/min Normal [facility] Comment on above: Performed By: #### L 100.0100, L500.4050 ####[facility] [address] [place], [address] EST GFR - AA 226 mL/min Normal >60 [facility] Comment on above: Result Comment: Afri can S[place] GFR Calc Performed By: #### L 100.0100, L500.4050 ####[facility] [address] [place], [address] GAP 4 Low 5-15 [facility] Comment on above: Performed By: #### L 100.0100, L500.4050 ####[facility] [address] [place], [address] GFR/1.73 sq M.predicted among non-blacks MDRD (S/P/Bld) [Vol rate/Area] 187 mL/min/{1.73_m2} Normal >60 [facility] Comment on above: Result Comment: Non- GFR Calc Performed By: #### L 100.0100, L500.4050 ####[facility] [address] [place], [address] Globulin (S) [Mass/Vol] 3.9 g/dL Normal 2.2-4.[address] [facility] Comment on above: Performed By: #### L 100.0100, L500.4050 ####[facility] [address] [place], [address] Glucose [Mass/Vol] 141 mg/dL High 74-106 [facility] Comment on above: Result Comment: Fast ing Glucose result greater than or equal to 126 mg/dLsuggests DIABETES MELLITUS per A.D.A. criteria. Performed By: #### L 100.0100, L500.4050 ####[facility] [address] [place], [address] Potassium [Moles/Vol] 3.0 mmol/L Low 3.5-5.1 [facility] Comment on above: Performed By: #### L 100.0100, L500.4050 ####[facility] [address] [place], [address] Sodium [Moles/Vol] 135 mmol/L Low 136-145 [facility] Comment on above: Performed By: #### L 100.0100, L500.4050 ####[facility] [address] [place], [address] T PROT 5.7 g/dL Low 6.4-8.2 [facility] Comment on above: Performed By: #### L 100.0100, L500.4050 ####[facility] [address] [place], [address] Urea nitrogen [Mass/Vol] 7 mg/dL Normal 7-18 [facility] Comment on above: Performed By: #### L 100.0100, L500.4050 ####[facility] [address] [place], [address] L501.4020on 08-24-2024 TROPONIN-I HS 18 pg/mL Normal 3.0-78.0 [facility] Comment on above: Order Comment: Comme nts: SPECIMEN #3'TROP' Serial specimen #1, #2 or #3: 3 Result Comment: Kashif jarvis Note: New Test Units and Gender Specific Reference Ranges. For more information see Policy Stat Procedure [place] High Sensitivity Troponin (TNIH) and attachments. Performed By: #### L 501.4020 ####[facility] [address] [place], [address] Troponin IOrdered By: Sherley castorena on 08-24-2024 Troponin I 18 pg/mL 3.0-78.0 [facility] Comment on above: Please Note: [place] t Units and Gender Specific Reference Ranges. For more information see Policy Stat Procedure [place] High Sensitivity Troponin (TNIH) and attachments. 12 Lead EKGon 08-23-2024 12 Lead EKG Normal [facility] 12 Lead EKG Normal [facility] Activated partial thrombopla stin time (aPTT) in platelet poor plasma by coagulation aOrdered By: Marychuy Millard on 08-23-2024 aPTT Coag (PPP) [Time] 29.5 s 24.1-36.2 [facility] Bilirubin Test strip Ql (U)O rdered By: Marychuy Millard on 08-23-2024 Bilirubin Ql (U) 1 mg/dL High Negative [facility] Comment on above: COLOR OF URINE MAY A FFECT DIPSTICK RESULTS. Blood cultureOrdered By: Ailin Millard on 08-23-2024 Bacteria identified Cx Nom (Bld) Positive Abnormal [facility] Bacteria identified Cx Nom (Bld) No growth in 5 days. [facility] CBC W/Diff, Automatedon Absolute Lymph 0.95 X10 3/uL Normal 0.83-4.51 [facility] Comment on above: Performed By: #### L 300.3900, L300.4310, L500.4050, L501.3620, L100.0100, L503.6005 ####[facility] [address] [place], [address] Absolute Neut 7.0 X10 3/uL Normal 2.0-7.7 [facility] Comment on above: Performed By: #### L 300.3900, L300.4310, L500.4050, L501.3620, L100.0100, L503.6005 ####[facility] [address] [place], [address] Basophils/100 WBC (Bld) 0.7 % Normal 0-[address] [facility] Comment on above: Performed By: #### L 300.3900, L300.4310, L500.4050, L501.3620, L100.0100, L503.6005 ####[facility] [address] [place], [address] Eosinophils/100 WBC (Bld) 1.4 % Normal 0-5 [facility] Comment on above: Performed By: #### L 300.3900, L300.4310, L500.4050, L501.3620, L100.0100, L503.6005 ####[facility] [address] [place], [address] Erythrocyte distribution width (RBC) [Ratio] 17.9 % High 11.6-14.6 [facility] Comment on above: Performed By: #### L 300.3900, L300.4310, L500.4050, L501.3620, L100.0100, L503.6005 ####[facility] [address] [place], [address] Hematocrit (Bld) [Volume fraction] 48.0 % Normal 40-54 [facility] Comment on above: Performed By: #### L 300.3900, L300.4310, L500.4050, L501.3620, L100.0100, L503.6005 ####[facility] [address] [place], [address] Hemoglobin (Bld) [Mass/Vol] 15.5 g/dL Normal 13.0-16.5 [facility] Comment on above: Performed By: #### L 300.3900, L300.4310, L500.4050, L501.3620, L100.0100, L503.6005 ####[facility] [address] [place], [address] IG% 0.300 Normal 0.0-0.9 [facility] Comment on above: Result Comment: IG% - Immature Granulocytes (promyelocytes, myelocytes andmetamyelocytes) > 1% indicates that a LEFT SHIFT is Present. Performed By: #### L 300.3900, L300.4310, L500.4050, L501.3620, L100.0100, L503.6005 ####[facility] [address] [place], [address] Lymphocytes/100 WBC (Bld) 10.9 % Low 19-41 [facility] Comment on above: Performed By: #### L 300.3900, L300.4310, L500.4050, L501.3620, L100.0100, L503.6005 ####[facility] [address] [place], [address] MCH (RBC) [Entitic mass] 28.9 pg Normal 27.0-32.0 [facility] Comment on above: Performed By: #### L 300.3900, L300.4310, L500.4050, L501.3620, L100.0100, L503.6005 ####[facility] [address] [place], [address] MCHC (RBC) [Mass/Vol] 32.3 g/dL Normal 32-36 [facility] Comment on above: Performed By: #### L 300.3900, L300.4310, L500.4050, L501.3620, L100.0100, L503.6005 ####[facility] [address] [place], [address] MCV (RBC) [Entitic vol] 89.4 fL Normal 80-[address] [facility] Comment on above: Performed By: #### L 300.3900, L300.4310, L500.4050, L501.3620, L100.0100, L503.6005 ####[facility] [address] [place], [address] Monocytes/100 WBC (Bld) 6.8 % Normal 0-10 [facility] Comment on above: Performed By: #### L 300.3900, L300.4310, L500.4050, L501.3620, L100.0100, L503.6005 ####[facility] [address] [place], [address] Neutrophils/100 WBC (Bld) 79.9 % High 47-70 [facility] Comment on above: Performed By: #### L 300.3900, L300.4310, L500.4050, L501.3620, L100.0100, L503.6005 ####[facility] [address] [place], [address] Nucleated RBC (Bld) [#/Vol] 0 10*3/uL Normal 0-5 [facility] Comment on above: Performed By: #### L 300.3900, L300.4310, L500.4050, L501.3620, L100.0100, L503.6005 ####[facility] [address] [place], [address] Platelet mean volume (Bld) [Entitic vol] 10.6 fL Normal 6.2-12.0 [facility] Comment on above: Performed By: #### L 300.3900, L300.4310, L500.4050, L501.3620, L100.0100, L503.6005 ####[facility] [address] [place], [address] Platelets (Bld) [#/Vol] 265 10*3/uL Normal 150-450 [facility] Comment on above: Performed By: #### L 300.3900, L300.4310, L500.4050, L501.3620, L100.0100, L503.6005 ####[facility] [address] [place], [address] RBC (Bld) [#/Vol] 5.37 10*6/uL Normal 4.6-6.2 [facility] Comment on above: Performed By: #### L 300.3900, L300.4310, L500.4050, L501.3620, L100.0100, L503.6005 ####[facility] [address] [place], [address] RDW SD 57.7 fl High 35.1-43.9 [facility] Comment on above: Performed By: #### L 300.3900, L300.4310, L500.4050, L501.3620, L100.0100, L503.6005 ####[facility] [address] [place], [address] WBC (Bld) [#/Vol] 8.7 10*3/uL Normal 4.4-11.0 [facility] Comment on above: Performed By: #### L 300.3900, L300.4310, L500.4050, L501.3620, L100.0100, L503.6005 ####[facility] [address] [place], [address] CPK Total, Creatine Kinaseon 08-23-2024 CPK TOTAL 48 U/L Normal 39-308 [facility] Comment on above: Order Comment: Blood cultures x2, from two different sites Performed By: #### L 300.3900, L300.4310, L500.4050, L501.3620, L100.0100, L503.6005 ####[facility] [address] [place], [address] CTA Chest W/WO Contraston CTA Chest W/WO Contrast Normal [facility] Chest 1 View (Portable)on Chest 1 View (Portable) Normal [facility] Comprehensive Metabolic Prof ilon 08-23-2024 Albumin [Mass/Vol] 2.4 g/dL Low 3.2-5.0 [facility] Comment on above: Order Comment: Blood cultures x2, from two different sites Performed By: #### L 300.3900, L300.4310, L500.4050, L501.3620, L100.0100, L503.6005 ####[facility] [address] [place], [address] Albumin/Globulin [Mass ratio] 0.5 {ratio} Low 0.9-2.4 [facility] Comment on above: Order Comment: Blood cultures x2, from two different sites Performed By: #### L 300.3900, L300.4310, L500.4050, L501.3620, L100.0100, L503.6005 ####[facility] [address] [place], [address] ALK P 208 U/L High 45-117 [facility] Comment on above: Order Comment: Blood cultures x2, from two different sites Performed By: #### L 300.3900, L300.4310, L500.4050, L501.3620, L100.0100, L503.6005 ####[facility] [address] [place], [address] ALT [Catalytic activity/Vol] 11 U/L Low 16-61 [facility] Comment on above: Order Comment: Blood cultures x2, from two different sites Performed By: #### L 300.3900, L300.4310, L500.4050, L501.3620, L100.0100, L503.6005 ####[facility] [address] [place], [address] AST [Catalytic activity/Vol] 34 U/L Normal 15-37 [facility] Comment on above: Order Comment: Blood cultures x2, from two different sites Result Comment: Slig ht Hemolysis, Result may be falsely increased. Performed By: #### L 300.3900, L300.4310, L500.4050, L501.3620, L100.0100, L503.6005 ####[facility] [address] [place], [address] Bilirubin [Mass/Vol] 1.10 mg/dL High 0.20-1.00 [facility] Comment on above: Order Comment: Blood cultures x2, from two different sites Result Comment: For patients on eltrombopag therapy, use of Dimension [place] TBIL is not recommended. Performed By: #### L 300.3900, L300.4310, L500.4050, L501.3620, L100.0100, L503.6005 ####[facility] [address] [place], [address] BUN/CRE 7.4 RATIO Low 10-20 [facility] Comment on above: Order Comment: Blood cultures x2, from two different sites Performed By: #### L 300.3900, L300.4310, L500.4050, L501.3620, L100.0100, L503.6005 ####[facility] [address] [place], [address] CA,Total 8.2 mg/dL Low 8.5-10.1 [facility] Comment on above: Order Comment: Blood cultures x2, from two different sites Performed By: #### L 300.3900, L300.4310, L500.4050, L501.3620, L100.0100, L503.6005 ####[facility] [address] [place], [address] Chloride [Moles/Vol] 92 mmol/L Low 98-107 [facility] Comment on above: Order Comment: Blood cultures x2, from two different sites Performed By: #### L 300.3900, L300.4310, L500.4050, L501.3620, L100.0100, L503.6005 ####[facility] [address] [place], [address] CO2 [Moles/Vol] 30.0 mmol/L Normal 21.0-32.0 [facility] Comment on above: Order Comment: Blood cultures x2, from two different sites Performed By: #### L 300.3900, L300.4310, L500.4050, L501.3620, L100.0100, L503.6005 ####[facility] [address] [place], [address] Creatinine [Mass/Vol] 0.82 mg/dL Normal 0.70-1.30 [facility] Comment on above: Order Comment: Blood cultures x2, from two different sites Result Comment: The validity of the calculated GFR GFRAA in patients over70 years has not been determined. Clinical correlation isessential. Performed By: #### L 300.3900, L300.4310, L500.4050, L501.3620, L100.0100, L503.6005 ####[facility] [address] [place], [address] ECRCL 164.22 ml/min Normal [facility] Comment on above: Order Comment: Blood cultures x2, from two different sites Performed By: #### L 300.3900, L300.4310, L500.4050, L501.3620, L100.0100, L503.6005 ####[facility] [address] [place], [address] EST GFR - AA 123 mL/min Normal >60 [facility] Comment on above: Order Comment: Blood cultures x2, from two different sites Result Comment: Afri can [place] GFR Calc Performed By: #### L 300.3900, L300.4310, L500.4050, L501.3620, L100.0100, L503.6005 ####[facility] [address] [place], [address] GAP 9 Normal 5-15 [facility] Comment on above: Order Comment: Blood cultures x2, from two different sites Performed By: #### L 300.3900, L300.4310, L500.4050, L501.3620, L100.0100, L503.6005 ####[facility] [address] [place], [address] GFR/1.73 sq M.predicted among non-blacks MDRD (S/P/Bld) [Vol rate/Area] 101 mL/min/{1.73_m2} Normal >60 [facility] Comment on above: Order Comment: Blood cultures x2, from two different sites Result Comment: Non- GFR Calc Performed By: #### L 300.3900, L300.4310, L500.4050, L501.3620, L100.0100, L503.6005 ####[facility] [address] [place], [address] Globulin (S) [Mass/Vol] 5.3 g/dL High 2.2-4.[address] [facility] Comment on above: Order Comment: Blood cultures x2, from two different sites Performed By: #### L 300.3900, L300.4310, L500.4050, L501.3620, L100.0100, L503.6005 ####[facility] [address] [place], [address] Glucose [Mass/Vol] 165 mg/dL High 74-106 [facility] Comment on above: Order Comment: Blood cultures x2, from two different sites Result Comment: Fast ing Glucose result greater than or equal to 126 mg/dLsuggests DIABETES MELLITUS per A.D.A. criteria. Performed By: #### L 300.3900, L300.4310, L500.4050, L501.3620, L100.0100, L503.6005 ####[facility] [address] [place], [address] Potassium [Moles/Vol] 4.7 mmol/L Normal 3.5-5.1 [facility] Comment on above: Order Comment: Blood cultures x2, from two different sites Result Comment: Slig ht Hemolysis, Result may be falsely increased. Performed By: #### L 300.3900, L300.4310, L500.4050, L501.3620, L100.0100, L503.6005 ####[facility] [address] [place], [address] Sodium [Moles/Vol] 132 mmol/L Low 136-145 [facility] Comment on above: Order Comment: Blood cultures x2, from two different sites Performed By: #### L 300.3900, L300.4310, L500.4050, L501.3620, L100.0100, L503.6005 ####[facility] [address] [place], [address] T PROT 7.7 g/dL Normal 6.4-8.2 [facility] Comment on above: Order Comment: Blood cultures x2, from two different sites Performed By: #### L 300.3900, L300.4310, L500.4050, L501.3620, L100.0100, L503.6005 ####[facility] [address] [place], [place], [address] Urea nitrogen [Mass/Vol] 6 mg/dL Low 7-18 [facility] Comment on above: Order Comment: Blood cultures x2, from two different sites Performed By: #### L 300.3900, L300.4310, L500.4050, L501.3620, L100.0100, L503.6005 ####[facility] [address] [place], [place], [address] Emergency Department Summary on 08-23-2024 Emergency Department Summary Normal [facility] H AND P Exam - Hospitaliston 08-23-2024 H&P Exam - Hospitalist Normal [facility] Influenza virus A and B and SARS-CoV-2 (COVID-19) and Respiratory syncytial virus RNAOrdered By: Marychuy Millard on 08-23-2024 SARS-CoV-2 (COVID-19) RNA ROBBY+probe Ql (Unsp spec) [facility] International normalized rat io (INR) calculationOrdered By: Marychuy Millard on 08-23-2024 INR Coag (Bld) [Relative time] 1.2 {INR} [facility] Ketones Test strip Ql (U)Ord ered By: Marychuy Millard on 08-23-2024 Ketones Ql (U) 5 mg/dl High Negative [facility] L501.4020on 08-23-2024 TROPONIN-I HS 17 pg/mL Normal 3.0-78.0 [facility] Comment on above: Order Comment: Comme nts: SPECIMEN #2'TROP' Serial specimen #1, #2 or #3: 2 Result Comment: Kashif jarvis Note: New Test Units and Gender Specific Reference Ranges. For more information see Policy Stat Procedure [place] High Sensitivity Troponin (TNIH) and attachments. Performed By: #### L 501.4020 ####[facility] [address] [place], [address] TROPONIN-I HS 16 pg/mL Normal 3.0-78.0 [facility] Comment on above: Order Comment: 'TROP ' Serial specimen #1, #2 or #3: 1 Result Comment: Kashif jarvis Note: New Test Units and Gender Specific Reference Ranges. For more information see Policy Stat Procedure [place] High Sensitivity Troponin (TNIH) and attachments. Performed By: #### L 501.4020, L501.5200 ####[facility] [address] [place], [address] Lactic Acidon 08-23-2024 Lactate [Moles/Vol] 2.6 mmol/L Invalid Interpretation Code 0.4-1.9 [facility] Comment on above: Result Comment: Crit ical Result(s) Called at: 17:18:15 08/23/2024 by: MICHELA. Results read back by Marcell Katz Performed By: #### L 503.6005 ####[facility] [address] [place], [address] Lactate [Moles/Vol] 5.6 mmol/L Invalid Interpretation Code 0.4-1.9 [facility] Comment on above: Order Comment: Y Result Comment: Crit ical Result(s) Called at: 12:54:39 08/23/2024 by: Zbigniew Sigala. Results read back by robbin. Performed By: #### L 300.3900, L300.4310, L500.4050, L501.3620, L100.0100, L503.6005 ####[facility] [address] [place], [place], [address] Lactic acid measurementOrder ed By: Marychuy Millard on 08-23-2024 Lactate [Moles/Vol] 2.6 mmol/L High 0.4-2.0 [facility] Comment on above: Critical Result(s) C alled at: 17:18:15 08/23/2024 by: TONO HENDRIX. Results read back by Marcell Katz M100.678on 08-23-2024 M100.678 Pending SARS-CoV-2 (COVID 19) Negative INFLUENZA A Negative INFLUENZA B Negative RSV PCR Negative Normal [facility] Comment on above: Performed By: #### M 100.678, M100.2200, L400.0001 ####[facility] [address] [place], [place], [id number] Magnesiumon 08-23-2024 Magnesium [Mass/Vol] 1.7 mg/dL Normal 1.6-2.6 [facility] Comment on above: Order Comment: 'TROP ' Serial specimen #1, #2 or #3: 1 Performed By: #### L 501.4020, L501.5200 ####[facility] [address] [place], [place], [id number] Magnesium measurementOrdered By: Sherley Larsen on 08-23-2024 Magnesium [Mass/Vol] 1.7 mg/dL 1.6-2.6 [facility] Microscopic analysis of urin e for red blood cells (RBC)Ordered By: Marychuy Millard on 08-23-2024 Microscopic analysis of urine for red blood cells (RBC) 0 SEEN /hpf 0-5 [facility] Mucus LM Ql (Urine sed)Order ed By: Marychuy Millard on 08-23-2024 Mucus Ql (Urine sed) 0 SEEN /hpf [facility] Nitrite Test strip Ql (U)Ord ered By: Marychuy Millard on 08-23-2024 Nitrite Ql (U) Positive High Negative [facility] Partial Thromboplast Timeon 08-23-2024 aPTT Coag (Bld) [Time] 29.5 s Normal 24.1-36.2 [facility] Comment on above: Performed By: #### L 300.3900, L300.4310, L500.4050, L501.3620, L100.0100, L503.6005 ####[facility] [address] [place], [place], [address] Protein Test strip Ql (U)Ord ered By: Marychuy Millard on 08-23-2024 Protein Ql (U) 30 mg/dl High Negative [facility] Prothrombin Time w/INRon INR Coag (PPP) [Relative time] 1.2 {INR} Normal [facility] Comment on above: Performed By: #### L 300.3900, L300.4310, L500.4050, L501.3620, L100.0100, L503.6005 ####[facility] [address] [place], [address] PT Coag (PPP) [Time] 15.8 s High 11.7-14.9 [facility] Comment on above: Performed By: #### L 300.3900, L300.4310, L500.4050, L501.3620, L100.0100, L503.6005 ####[facility] [address] [place], [place], [id number] Prothrombin timeOrdered By: Marychuy Millard on 08-23-2024 PT Coag (PPP) [Time] 15.8 s High 11.7-14.9 [facility] Squamous epithelial cells de tection in urine sediment by light microscopyOrdered By: Marychuy Millard on 08-23-2024 Epithelial cells.squamous LM Ql (Urine sed) 0-5 SEEN /hpf 0-5 [facility] Total creatine kinase measur ementOrdered By: Marychuy Millard on 08-23-2024 CK [Catalytic activity/Vol] 48 U/L 39-308 [facility] Urinalysis, Completeon 08-23 EPI,SQUAMOUS 0-5 SEEN Normal 0-5 [facility] Comment on above: Order Comment: LEFTY TER SPECIMEN Performed By: #### M 100.678, M100.2200, L400.0001 ####[facility] [address] [place], [address] WBC 25-50 SEEN Normal 0-5 [facility] Comment on above: Order Comment: LEFTY TER SPECIMEN Performed By: #### M 100.678, M100.2200, L400.0001 ####[facility] [address] [place], [address] BACTERIA 2+ /hpf Normal None Seen [facility] Comment on above: Order Comment: LEFTY TER SPECIMEN Performed By: #### M 100.678, M100.2200, L400.0001 ####[facility] [address] [place], [address] Mucus Ql (Urine sed) 0 SEEN Normal [facility] Comment on above: Order Comment: LEFTY TER SPECIMEN Performed By: #### M 100.678, M100.2200, L400.0001 ####[facility] [address] [place], [address] RBC 0 SEEN Normal 0-5 [facility] Comment on above: Order Comment: LEFTY TER SPECIMEN Performed By: #### M 100.678, M100.2200, L400.0001 ####[facility] [address] [place], [address] Urine clarityOrdered By: Ailin Millard on 08-23-2024 Clarity (U) Sl. Cloudy Clear [facility] Urine color determinationOrd ered By: Marychuy Millard on 08-23-2024 Color (U) Yellow Yellow [facility] Urine cultureOrdered By: Ailin Millard on 08-23-2024 Bacteria identified Cx Nom (U) ESBL Klebsiella pneumoniae pne Abnormal [facility] Urine glucose detectionOrder ed By: Marychuy Millard on 08-23-2024 Glucose Ql (U) Normal mg/dl Normal [facility] Urine leukocyte esterase det ection by dipstickOrdered By: Marychuy Millard on 08-23-2024 Leukocyte esterase Test strip Ql (U) 500 /ul High Negative [facility] Urine pHOrdered By: Marychuy massey on 08-23-2024 pH (U) 6.0 [pH] 5.0 - 8.0 [facility] Urine sediment bacteria coun t by microscopy (number/high power field)Ordered By: Marychuy Millard on 08-23-2024 Bacteria LM.HPF (Urine sed) [#/Area] 2 /[HPF] None Seen [facility] Urine specific gravity measu rementOrdered By: Marychuy Millard on 08-23-2024 Specific gravity (U) [Rel density] 1.015 1.002-1.030 [facility] Urine urobilinogen measureme ntOrdered By: Marychuy Millard on 08-23-2024 Urobilinogen Ql (U) 8 mg/dl High Normal [facility] White blood cell countOrdere d By: Marychuy Millard on 08-23-2024 White blood cell count 25-50 SEEN /hpf 0-5 [facility] 12 Lead EKGon 08-22-2024 12 Lead EKG Normal [facility] Urine Cultureon 05-11-2024 URC Normal [facility] Comment on above: Performed By: #### L 400.2010, ####[facility] [address] [place], [address] Urinalysis, Routine (Dipstic k)on 05-08-2024 BILIRUBIN URINE Negative Normal Negative [facility] Comment on above: Order Comment: Urine , Random Performed By: #### L 400.2010, ####[facility] [address] [place], [address] Clarity (U) Clear Normal Clear [facility] Comment on above: Order Comment: Urine , Random Performed By: #### L 400.2010, ####[facility] [address] [place], [address] Color (U) Yellow Normal Yellow [facility] Comment on above: Order Comment: Urine , Random Performed By: #### L 400.2010, ####[facility] [address] [place], [address] GLUCOSE, UR Normal Normal Normal [facility] Comment on above: Order Comment: Urine , Random Performed By: #### L 400.2010, ####[facility] [address] [place], [address] KETONE UR Negative Normal Negative [facility] Comment on above: Order Comment: Urine , Random Performed By: #### L 400.2010, ####[facility] [address] [place], [address] LEUK ESTERASE 500 /ul Abnormal Negative [facility] Comment on above: Order Comment: Urine , Random Performed By: #### L 400.2010, ####[facility] [address] [place], [address] Nitrite Ql (U) Positive Abnormal Negative [facility] Comment on above: Order Comment: Urine , Random Performed By: #### L 400.2010, ####[facility] [address] [place], [address] OCCULT BLOOD-UR Negative Normal Negative [facility] Comment on above: Order Comment: Urine , Random Performed By: #### L 400.2010, ####[facility] [address] [place], [address] pH UR 7.0 Normal 5.0 - 8.0 [facility] Comment on above: Order Comment: Urine , Random Performed By: #### L 400.2010, ####[facility] [address] [place], [address] PROT DIPSTX Negative Normal Negative [facility] Comment on above: Order Comment: Urine , Random Performed By: #### L 400.2010, ####[facility] [address] [place], [address] SP.GR. DIPSTX 1.010 Normal 1.002-1.030 [facility] Comment on above: Order Comment: Urine , Random Performed By: #### L 400.2010, ####[facility] [address] [place], [address] UROBILI 1 mg/dl Abnormal Normal [facility] Comment on above: Order Comment: Urine , Random Performed By: #### L 400.2010, ####[facility] [address] [place], [address] CBC W/Diff, Automatedon 04-21-2023 Absolute Lymph 1.31 X10 3/uL Normal 0.83-4.51 [facility] Comment on above: Performed By: #### L 501.9910, L500.4100, L501.1400, L100.0100, L500.4050, L501.9520 ####[facility] [address] [place], [address] Absolute Neut 5.7 X10 3/uL Normal 2.0-7.7 [facility] Comment on above: Performed By: #### L 501.9910, L500.4100, L501.1400, L100.0100, L500.4050, L501.9520 ####[facility] [address] [place], [address] Basophils/100 WBC (Bld) 0.4 % Normal 0-[address] [facility] Comment on above: Performed By: #### L 501.9910, L500.4100, L501.1400, L100.0100, L500.4050, L501.9520 ####[facility] [address] [place], [address] Eosinophils/100 WBC (Bld) 2.2 % Normal 0-5 [facility] Comment on above: Performed By: #### L 501.9910, L500.4100, L501.1400, L100.0100, L500.4050, [id number] ####[facility] [address] [place], [address] Erythrocyte distribution width (RBC) [Ratio] 13.4 % Normal 11.6-14.6 [facility] Comment on above: Performed By: #### L 501.9910, L500.4100, L501.1400, L100.0100, L500.4050, [id number] ####[facility] [address] [place], [address] Hematocrit (Bld) [Volume fraction] 43.7 % Normal 40-54 [facility] Comment on above: Performed By: #### L 501.9910, L500.4100, L501.1400, L100.0100, L500.4050, L501.9520 ####[facility] [address] [place], [address] Hemoglobin (Bld) [Mass/Vol] 13.8 g/dL Normal 13.0-16.5 [facility] Comment on above: Performed By: #### L 501.9910, L500.4100, L501.1400, L100.0100, L500.4050, L501.9520 ####[facility] [address] [place], [address] IG% 0.500 Normal 0.0-0.9 [facility] Comment on above: Result Comment: IG% - Immature Granulocytes (promyelocytes, myelocytes andmetamyelocytes) > 1% indicates that a LEFT SHIFT is Present. Performed By: #### L 501.9910, L500.4100, L501.1400, L100.0100, L500.4050, L501.9520 ####[facility] [address] [place], [address] Lymphocytes/100 WBC (Bld) 17.2 % Low 19-41 [facility] Comment on above: Performed By: #### L 501.9910, L500.4100, L501.1400, L100.0100, L500.4050, L501.9520 ####[facility] [address] [place], [address] MCH (RBC) [Entitic mass] 28.7 pg Normal 27.0-32.0 [facility] Comment on above: Performed By: #### L 501.9910, L500.4100, L501.1400, L100.0100, L500.4050, L501.9520 ####[facility] [address] [place], [address] MCHC (RBC) [Mass/Vol] 31.6 g/dL Low 32-36 [facility] Comment on above: Performed By: #### L 501.9910, L500.4100, L501.1400, L100.0100, L500.4050, L501.9520 ####[facility] [address] [place], [address] MCV (RBC) [Entitic vol] 90.9 fL Normal 80-[address] [facility] Comment on above: Performed By: #### L 501.9910, L500.4100, L501.1400, L100.0100, L500.4050, L501.9520 ####[facility] [address] [place], [address] Monocytes/100 WBC (Bld) 5.2 % Normal 0-[address] [facility] Comment on above: Performed By: #### L 501.9910, L500.4100, L501.1400, L100.0100, L500.4050, L501.9520 ####[facility] [address] [place], [address] Neutrophils/100 WBC (Bld) 74.5 % High 47-70 [facility] Comment on above: Performed By: #### L 501.9910, L500.4100, L501.1400, L100.0100, L500.4050, L501.9520 ####[facility] [address] [place], [address] Nucleated RBC (Bld) [#/Vol] 0 10*3/uL Normal 0-5 [facility] Comment on above: Performed By: #### L 501.9910, L500.4100, L501.1400, L100.0100, L500.4050, L501.9520 ####[facility] [address] [place], [address] Platelet mean volume (Bld) [Entitic vol] 10.2 fL Normal 6.2-12.0 [facility] Comment on above: Performed By: #### L 501.9910, L500.4100, L501.1400, L100.0100, L500.4050, L501.9520 ####[facility] [address] [place], [address] Platelets (Bld) [#/Vol] 313 10*3/uL Normal 150-450 [facility] Comment on above: Performed By: #### L 501.9910, L500.4100, L501.1400, L100.0100, L500.4050, L501.9520 ####[facility] [address] [place], [address] RBC (Bld) [#/Vol] 4.81 10*6/uL Normal 4.6-6.2 [facility] Comment on above: Performed By: #### L 501.9910, L500.4100, L501.1400, L100.0100, L500.4050, L501.9520 ####[facility] [address] [place], [address] RDW SD 44.7 fl High 35.1-43.9 [facility] Comment on above: Performed By: #### L 501.9910, L500.4100, L501.1400, L100.0100, L500.4050, L501.9520 ####[facility] [address] [place], [address] WBC (Bld) [#/Vol] 7.6 10*3/uL Normal 4.4-11.0 [facility] Comment on above: Performed By: #### L 501.9910, L500.4100, L501.1400, L100.0100, L500.4050, L501.9520 ####[facility] [address] [place], [address] Comprehensive Metabolic Prof [facility] 05-02-2024 Albumin [Mass/Vol] 2.7 g/dL Low 3.2-5.0 [facility] Comment on above: Performed By: #### L 501.9910, L500.4100, L501.1400, L100.0100, L500.4050, L501.9520 ####[facility] [address] [place], [address] Albumin/Globulin [Mass ratio] 0.6 {ratio} Low 0.9-2.4 [facility] Comment on above: Performed By: #### L 501.9910, L500.4100, L501.1400, L100.0100, L500.4050, L501.9520 ####[facility] [address] [place], [address] ALK P 170 U/L High 45-117 [facility] Comment on above: Performed By: #### L 501.9910, L500.4100, L501.1400, L100.0100, L500.4050, L501.9520 ####[facility] [address] [place], [address] ALT [Catalytic activity/Vol] 11 U/L Low 16-61 [facility] Comment on above: Performed By: #### L 501.9910, L500.4100, L501.1400, L100.0100, L500.4050, L501.9520 ####[facility] [address] [place], [address] AST [Catalytic activity/Vol] 18 U/L Normal 15-37 [facility] Comment on above: Performed By: #### L 501.9910, L500.4100, L501.1400, L100.0100, L500.4050, L501.9520 ####[facility] [address] [place], [address] Bilirubin [Mass/Vol] 0.50 mg/dL Normal 0.20-1.00 [facility] Comment on above: Result Comment: For patients on eltrombopag therapy, use of Dimension [place] TBIL is not recommended. Performed By: #### L 501.9910, L500.4100, L501.1400, L100.0100, L500.4050, L501.9520 ####[facility] [address] [place], [address] BUN/CRE 7.9 RATIO Low 10-20 [facility] Comment on above: Performed By: #### L 501.9910, L500.4100, L501.1400, L100.0100, L500.4050, L501.9520 ####[facility] [address] [place], [address] CA,Total 8.3 mg/dL Low 8.5-10.1 [facility] Comment on above: Performed By: #### L 501.9910, L500.4100, L501.1400, L100.0100, L500.4050, L501.9520 ####[facility] [address] [place], [address] Chloride [Moles/Vol] 100 mmol/L Normal 98-107 [facility] Comment on above: Performed By: #### L 501.9910, L500.4100, L501.1400, L100.0100, L500.4050, L501.9520 ####[facility] [address] [place], [address] CO2 [Moles/Vol] 29.0 mmol/L Normal 21.0-32.0 [facility] Comment on above: Performed By: #### L 501.9910, L500.4100, L501.1400, L100.0100, L500.4050, L501.9520 ####[facility] [address] [place], [address] Creatinine [Mass/Vol] 0.76 mg/dL Normal 0.70-1.30 [facility] Comment on above: Result Comment: The validity of the calculated GFR GFRAA in patients over70 years has not been determined. Clinical correlation isessential. Performed By: #### L 501.9910, L500.4100, L501.1400, L100.0100, L500.4050, L501.9520 ####[facility] [address] [place], [address] EST GFR - AA 134 mL/min Normal >60 [facility] Comment on above: Result Comment: Afri can Sammarinese GFR Calc Performed By: #### L 501.9910, L500.4100, L501.1400, L100.0100, L500.4050, L501.9520 ####[facility] [address] [place], [address] GAP 9 Normal 5-15 [facility] Comment on above: Performed By: #### L 501.9910, L500.4100, L501.1400, L100.0100, L500.4050, L501.9520 ####[facility] [address] [place], [address] GFR/1.73 sq M.predicted among non-blacks MDRD (S/P/Bld) [Vol rate/Area] 111 mL/min/{1.73_m2} Normal >60 [facility] Comment on above: Result Comment: Non- GFR Calc Performed By: #### L 501.9910, L500.4100, L501.1400, L100.0100, L500.4050, L501.9520 ####[facility] [address] [place], [address] Globulin (S) [Mass/Vol] 4.5 g/dL High 2.2-4.2 [facility] Comment on above: Performed By: #### L 501.9910, L500.4100, L501.1400, L100.0100, L500.4050, L501.9520 ####[facility] [address] [place], [address] Glucose [Mass/Vol] 148 mg/dL High 74-106 [facility] Comment on above: Result Comment: Fast ing Glucose result greater than or equal to 126 mg/dLsuggests DIABETES MELLITUS per A.D.A. criteria. Performed By: #### L 501.9910, L500.4100, L501.1400, L100.0100, L500.4050, L501.9520 ####[facility] [address] [place], [address] Potassium [Moles/Vol] 4.4 mmol/L Normal 3.5-5.1 [facility] Comment on above: Performed By: #### L 501.9910, L500.4100, L501.1400, L100.0100, L500.4050, L501.9520 ####[facility] [address] [place], [address] Sodium [Moles/Vol] 138 mmol/L Normal 136-145 [facility] Comment on above: Performed By: #### L 501.9910, L500.4100, L501.1400, L100.0100, L500.4050, L501.9520 ####[facility] [address] [place], [address] T PROT 7.2 g/dL Normal 6.4-8.2 [facility] Comment on above: Performed By: #### L 501.9910, L500.4100, L501.1400, L100.0100, L500.4050, L501.9520 ####[facility] [address] [place], [address] Urea nitrogen [Mass/Vol] 6 mg/dL Low 7-18 [facility] Comment on above: Performed By: #### L 501.9910, L500.4100, L501.1400, L100.0100, L500.4050, L501.9520 ####[facility] [address] [place], [address] Lipid Profileon 05-02-2024 Cholesterol [Mass/Vol] 149 mg/dL Normal 200 [facility] Comment on above: Result Comment: <200 mg/dL Desirable 200-240 mg/dL Borderline >240 mg/dL High Risk Performed By: #### L 501.9910, L500.4100, L501.1400, L100.0100, L500.4050, L501.9520 ####[facility] [address] [place], [address] Cholesterol in HDL [Mass/Vol] 37 mg/dL Low [facility] Comment on above: Result Comment: The drugs N-Acetylcysteine and Metamizole may falselydepress this assay. Reference Range HDL <40 mg/dL Low HDL Cholesterol HDL >or= 60 mg/dL High HDL Cholesterol Performed By: #### L 501.9910, L500.4100, L501.1400, L100.0100, L500.4050, L501.9520 ####[facility] [address] [place], [address] Cholesterol in LDL [Mass/Vol] 93 mg/dL Normal 0-130 [facility] Comment on above: Performed By: #### L 501.9910, L500.4100, L501.1400, L100.0100, L500.4050, L501.9520 ####[facility] [address] [place], [address] Cholesterol in VLDL [Mass/Vol] 19 mg/dL Normal 5-40 [facility] Comment on above: Performed By: #### L 501.9910, L500.4100, L501.1400, L100.0100, L500.4050, L501.9520 ####[facility] [address] [place], [address] Triglyceride [Mass/Vol] 93 mg/dL Normal [facility] Comment on above: Result Comment: The drugs N-Acetylcysteine and Metamizole may falselydepress this assay.Serum Triglycerides Reference Interval Normal <150 mg/dL Borderline high 150 - 199 mg/dL High 200 - 499 mg/dL Very High > or = 500 mg/dL Performed By: #### L 501.9910, L500.4100, L501.1400, L100.0100, L500.4050, L501.9520 ####[facility] [address] [place], [address] PSA,Total - Annual Screenon 05-02-2024 PSA,TOT SCREEN < 0.01 Normal 0.00-4.00 [facility] Comment on above: Result Comment: This test was performed using the TPSA assay method for the[employer]mark[employer]rowd[employer] chemistry system. Values obtained with differentassay methods cannot be used interchangably.When changing PSA assays in the course of monitoring apatient, additional sequential testing should be carriedout to confirm baseline values. Performed By: #### L 501.9910, L500.4100, L501.1400, L100.0100, L500.4050, L501.9520 ####[facility] [address] [place], [address] Thyroid Stim Hormone (TSH)on 05-02-2024 TSH 2.290 uIU/mL Normal 0.358-3.740 [facility] Comment on above: Performed By: #### L 501.9910, L500.4100, L501.1400, L100.0100, L500.4050, L501.9520 ####[facility] [address] [place], [address] Uric Acidon 05-02-2024 URIC 5.0 mg/dL Normal 3.5-7.2 [facility] Comment on above: Result Comment: The drugs N-Acetylcysteine and Metamizole may falselydepress this assay. Performed By: #### L 501.9910, L500.4100, L501.1400, L100.0100, L500.4050, L501.9520 ####[facility] [address] [place], [address] Basic Metabolic Profile (BMP )on 01-22-2024 BUN/CRE 18.4 RATIO Normal 10-20 [facility] Comment on above: Performed By: #### L 500.2500, L100.0500 ####[facility] [address] [place], [address] CA,Total 8.0 mg/dL Low 8.5-10.1 [facility] Comment on above: Performed By: #### L 500.2500, L100.0500 ####[facility] [address] [place], [address] Chloride [Moles/Vol] 103 mmol/L Normal 98-107 [facility] Comment on above: Performed By: #### L 500.2500, L100.0500 ####[facility] [address] [place], [address] CO2 [Moles/Vol] 33.0 mmol/L High 21.0-32.0 [facility] Comment on above: Performed By: #### L 500.2500, L100.0500 ####[facility] [address] [place], [address] Creatinine [Mass/Vol] 0.49 mg/dL Low 0.70-1.30 [facility] Comment on above: Result Comment: The validity of the calculated GFR GFRAA in patients over70 years has not been determined. Clinical correlation isessential. Performed By: #### L 500.2500, L100.0500 ####[facility] [address] [place], [address] ECRCL 281.31 ml/min Normal [facility] Comment on above: Performed By: #### L 500.2500, L100.0500 ####[facility] [address] [place], [address] EST GFR - AA 222 mL/min Normal >60 [facility] Comment on above: Result Comment: Afri can Sammarinese GFR Calc Performed By: #### L 500.2500, L100.0500 ####[facility] [address] [place], [address] GAP 3 Low 5-15 [facility] Comment on above: Performed By: #### L 500.2500, L100.0500 ####[facility] [address] [place], [address] GFR/1.73 sq M.predicted among non-blacks MDRD (S/P/Bld) [Vol rate/Area] 183 mL/min/{1.73_m2} Normal >60 [facility] Comment on above: Result Comment: Non- GFR Calc Performed By: #### L 500.2500, L100.0500 ####[facility] [address] [place], [address] Glucose [Mass/Vol] 109 mg/dL High 74-106 [facility] Comment on above: Result Comment: Fast ing Glucose result from 100 to 125 mg/dLsuggests IMPAIRED HOMEOSTASIS per A.D.A. criteria. Performed By: #### L 500.2500, L100.0500 ####[facility] [address] [place], [address] Potassium [Moles/Vol] 3.4 mmol/L Low 3.5-5.1 [facility] Comment on above: Performed By: #### L 500.2500, L100.0500 ####[facility] [address] [place], [address] Sodium [Moles/Vol] 139 mmol/L Normal 136-145 [facility] Comment on above: Performed By: #### L 500.2500, L100.0500 ####[facility] [address] [place], [address] Urea nitrogen [Mass/Vol] 9 mg/dL Normal 7-18 [facility] Comment on above: Performed By: #### L 500.2500, L100.0500 ####[facility] [address] [place], [address] CBC-Complete Blood Cnt No Di ffon 01-22-2024 Erythrocyte distribution width (RBC) [Ratio] 12.9 % Normal 11.6-14.6 [facility] Comment on above: Performed By: #### L 500.2500, L100.0500 ####[facility] [address] [place], [address] Hematocrit (Bld) [Volume fraction] 41.6 % Normal 40-54 [facility] Comment on above: Performed By: #### L 500.2500, L100.0500 ####[facility] [address] [place], [address] Hemoglobin (Bld) [Mass/Vol] 13.3 g/dL Normal 13.0-16.5 [facility] Comment on above: Performed By: #### L 500.2500, L100.0500 ####[facility] [address] [place], [address] MCH (RBC) [Entitic mass] 32.3 pg High 27.0-32.0 [facility] Comment on above: Performed By: #### L 500.2500, L100.0500 ####[facility] [address] [place], [address] MCHC (RBC) [Mass/Vol] 32.0 g/dL Normal 32-36 [facility] Comment on above: Performed By: #### L 500.2500, L100.0500 ####[facility] [address] [place], [address] MCV (RBC) [Entitic vol] 101.0 fL High 80-[address] [facility] Comment on above: Performed By: #### L 500.2500, L100.0500 ####[facility] [address] [place], [address] Platelet mean volume (Bld) [Entitic vol] 10.0 fL Normal 6.2-12.0 [facility] Comment on above: Performed By: #### L 500.2500, L100.0500 ####[facility] [address] [place], [address] Platelets (Bld) [#/Vol] 212 10*3/uL Normal 150-450 [facility] Comment on above: Performed By: #### L 500.2500, L100.0500 ####[facility] [address] [place], [address] RBC (Bld) [#/Vol] 4.12 10*6/uL Low 4.6-6.2 [facility] Comment on above: Performed By: #### L 500.2500, L100.0500 ####[facility] [address] [place], [address] RDW SD 47.8 fl High 35.1-43.9 [facility] Comment on above: Performed By: #### L 500.2500, L100.0500 ####[facility] [address] [place], [address] WBC (Bld) [#/Vol] 6.1 10*3/uL Normal 4.4-11.0 [facility] Comment on above: Performed By: #### L 500.2500, L100.0500 ####[facility] [address] [place], [address] Basic Metabolic Profile (BMP )on 01-21-2024 BUN/CRE 21.6 RATIO High 10-20 [facility] Comment on above: Performed By: #### L 500.2500 ####[facility] [address] [place], [address] CA,Total 7.8 mg/dL Low 8.5-10.1 [facility] Comment on above: Performed By: #### L 500.2500 ####[facility] [address] [place], [address] Chloride [Moles/Vol] 99 mmol/L Normal 98-107 [facility] Comment on above: Performed By: #### L 500.2500 ####[facility] [address] [place], [address] CO2 [Moles/Vol] 33.0 mmol/L High 21.0-32.0 [facility] Comment on above: Performed By: #### L 500.2500 ####[facility] [address] [place], [address] Creatinine [Mass/Vol] 0.46 mg/dL Low 0.70-1.30 [facility] Comment on above: Result Comment: The validity of the calculated GFR GFRAA in patients over70 years has not been determined. Clinical correlation isessential. Performed By: #### L 500.2500 ####[facility] [address] [place], [address] ECRCL 299.66 ml/min Normal [facility] Comment on above: Performed By: #### L 500.2500 ####[facility] [address] [place], [address] EST GFR - AA 237 mL/min Normal >60 [facility] Comment on above: Result Comment: Afri can Sammarinese GFR Calc Performed By: #### L 500.2500 ####[facility] [address] [place], [address] GAP 5 Normal 5-15 [facility] Comment on above: Performed By: #### L 500.2500 ####[facility] [address] [place], [address] GFR/1.73 sq M.predicted among non-blacks MDRD (S/P/Bld) [Vol rate/Area] 196 mL/min/{1.73_m2} Normal >60 [facility] Comment on above: Result Comment: Non- GFR Calc Performed By: #### L 500.2500 ####[facility] [address] [place], [address] Glucose [Mass/Vol] 124 mg/dL High 74-106 [facility] Comment on above: Result Comment: Fast ing Glucose result from 100 to 125 mg/dLsuggests IMPAIRED HOMEOSTASIS per A.D.A. criteria. Performed By: #### L 500.2500 ####[facility] [address] [place], [address] Potassium [Moles/Vol] 3.3 mmol/L Low 3.5-5.1 [facility] Comment on above: Performed By: #### L 500.2500 ####[facility] [address] [place], [address] Sodium [Moles/Vol] 137 mmol/L Normal 136-145 [facility] Comment on above: Performed By: #### L 500.2500 ####[facility] [address] [place], [place], [phone] Urea nitrogen [Mass/Vol] 10 mg/dL Normal 7-18 [facility] Comment on above: Performed By: #### L 500.2500 ####[facility] [address] [place], [place], [phone] Basic Metabolic Profile (BMP )on 01-19-2024 BUN/CRE 13.6 RATIO Normal 10-20 [facility] Comment on above: Order Comment: REDRA W. PREVIOUS SPECIMEN REJECTED DUE TOSPECIMEN BEING HEMOLYZED. 01/19/24720 Darrian Fernando Performed By: #### L 500.2500 ####[facility] [address] [place], [address] CA,Total 7.4 mg/dL Low 8.5-10.1 [facility] Comment on above: Order Comment: REDRA W. PREVIOUS SPECIMEN REJECTED DUE TOSPECIMEN BEING HEMOLYZED. 01/19/24720 Darrian Fernando Performed By: #### L 500.2500 ####[facility] [address] [place], [address] Chloride [Moles/Vol] 101 mmol/L Normal 98-107 [facility] Comment on above: Order Comment: REDRA W. PREVIOUS SPECIMEN REJECTED DUE TOSPECIMEN BEING HEMOLYZED. 01/19/24720 Darrian Fernando Performed By: #### L 500.2500 ####[facility] [address] [place], [address] CO2 [Moles/Vol] 34.0 mmol/L High 21.0-32.0 [facility] Comment on above: Order Comment: REDRA W. PREVIOUS SPECIMEN REJECTED DUE TOSPECIMEN BEING HEMOLYZED. 01/19/24720 Darrian Fernando Performed By: #### L 500.2500 ####[facility] [address] [place], [place], [address] Creatinine [Mass/Vol] 0.59 mg/dL Low 0.70-1.30 [facility] Comment on above: Order Comment: REDRA W. PREVIOUS SPECIMEN REJECTED DUE TOSPECIMEN BEING HEMOLYZED. 01/19/24720 Darrian Escobar. Result Comment: The validity of the calculated GFR GFRAA in patients over70 years has not been determined. Clinical correlation isessential. Performed By: #### L 500.2500 ####[facility] [address] [place], [address] ECRCL 233.63 ml/min Normal [facility] Comment on above: Order Comment: REDRA W. PREVIOUS SPECIMEN REJECTED DUE TOSPECIMEN BEING HEMOLYZED. 01/19/24720 Darrian Escobar. Performed By: #### L 500.2500 ####[facility] [address] [place], [address] EST GFR - AA 180 mL/min Normal >60 [facility] Comment on above: Order Comment: REDRA W. PREVIOUS SPECIMEN REJECTED DUE TOSPECIMEN BEING HEMOLYZED. 01/19/24720 Darrian Escobar. Result Comment: Afri can S[place] GFR Calc Performed By: #### L 500.2500 ####[facility] [address] [place], [address] GAP 4 Low 5-15 [facility] Comment on above: Order Comment: REDRA W. PREVIOUS SPECIMEN REJECTED DUE TOSPECIMEN BEING HEMOLYZED. 01/19/24720 aDrrian Fernando Performed By: #### L 500.2500 ####[facility] [address] [place], [place], [address]) GFR/1.73 sq M.predicted among non-blacks MDRD (S/P/Bld) [Vol rate/Area] 149 mL/min/{1.73_m2} Normal >60 [facility] Comment on above: Order Comment: REDRA W. PREVIOUS SPECIMEN REJECTED DUE TOSPECIMEN BEING HEMOLYZED. 01/19/24720 Darrian Fernando Result Comment: Non- GFR Calc Performed By: #### L 500.2500 ####[facility] [address] [place], [address] Glucose [Mass/Vol] 114 mg/dL High 74-106 [facility] Comment on above: Order Comment: REDRA W. PREVIOUS SPECIMEN REJECTED DUE TOSPECIMEN BEING HEMOLYZED. 01/19/24720 Darrian Fernando Result Comment: Fast ing Glucose result from 100 to 125 mg/dLsuggests IMPAIRED HOMEOSTASIS per A.D.A. criteria. Performed By: #### L 500.2500 ####[facility] [address] [place], [address] Potassium [Moles/Vol] 3.3 mmol/L Low 3.5-5.1 [facility] Comment on above: Order Comment: REDRA W. PREVIOUS SPECIMEN REJECTED DUE TOSPECIMEN BEING HEMOLYZED. 01/19/24720 Darrian Fernando Performed By: #### L 500.2500 ####[facility] [id number] [place], [address] Sodium [Moles/Vol] 139 mmol/L Normal 136-145 [facility] Comment on above: Order Comment: REDRA W. PREVIOUS SPECIMEN REJECTED DUE TOSPECIMEN BEING HEMOLYZED. 01/19/24720 Darrian Fernando Performed By: #### L 500.2500 ####[facility] [address] [place], [address] Urea nitrogen [Mass/Vol] 8 mg/dL Normal 7-18 [facility] Comment on above: Order Comment: REDRA W. PREVIOUS SPECIMEN REJECTED DUE TOSPECIMEN BEING HEMOLYZED. 01/19/24720 Darrian Fernando Performed By: #### L 500.2500 ####[facility] [address] [place], [address] BUN Normal 7-18 [facility] Comment on above: Result Comment: This specimen has been REJECTED due to Laboratory criteria:Hemolyzed.[facility] STAFF has been notified of need of recollection.01/19/24719 Darrian R Stoner Performed By: #### L 100.0500, L500.2500 ####[facility] [id number] [place], [address] BUN/CRE Normal 10-20 [facility] [facility] Comment on above: Result Comment: This specimen has been REJECTED due to Laboratory criteria:Hemolyzed.PHELB STAFF has been notified of need of recollection.01/19/24719 Darrian R Stoner Performed By: #### L 100.0500, L500.2500 ####[facility] [address] [place], [address] CA,Total Normal 8.5-10.1 [facility] Comment on above: Result Comment: This specimen has been REJECTED due to Laboratory criteria:Hemolyzed.PHELB STAFF has been notified of need of recollection.01/19/24719 Darrian R Stoner Performed By: #### L 100.0500, L500.2500 ####[facility] [address] [place], [address] CL Normal 98-107 [facility] Comment on above: Result Comment: This specimen has been REJECTED due to Laboratory criteria:Hemolyzed.PHELB STAFF has been notified of need of recollection.01/19/24719 Darrian R Stoner Performed By: #### L 100.0500, L500.2500 ####[facility] [address] [place], [address] CO2 Normal 21.0-32.0 [facility] Comment on above: Result Comment: This specimen has been REJECTED due to Laboratory criteria:Hemolyzed.PHELB STAFF has been notified of need of recollection.01/19/24719 Darrian R Stoner Performed By: #### L 100.0500, L500.2500 ####[facility] [address] [place], [address] CREAT,SERUM Normal 0.70-1.30 [facility] Comment on above: Result Comment: This specimen has been REJECTED due to Laboratory criteria:[facility] has been notified of need of recollection.01/19/24719 Darrian R Stoner Performed By: #### L 100.0500, L500.2500 ####[facility] [address] [place], [address] EST GFR Normal >60 [facility] Comment on above: Result Comment: This specimen has been REJECTED due to Laboratory criteria:Hemolyzed.PHELB STAFF has been notified of need of recollection.01/19/24719 Darrian R Stoner Performed By: #### L 100.0500, L500.2500 ####[facility] [address] [facility] [address] EST GFR - AA Normal >60 [facility] Comment on above: Result Comment: This specimen has been REJECTED due to Laboratory criteria:Hemolyzed.PHELB STAFF has been notified of need of recollection.01/19/24719 Darrian R Stoner Performed By: #### L 100.0500, L500.2500 ####[facility] [address] [place], [address] GAP Normal 5-15 [facility] Comment on above: Result Comment: This specimen has been REJECTED due to Laboratory criteria:[facility]olyzed.[facility] has been notified of need of recollection.01/19/24719 Darrian R Stoner Performed By: #### L 100.0500, L500.2500 ####[facility] [address] [place], [address] GLU Normal 74-106 [facility] Comment on above: Result Comment: This specimen has been REJECTED due to Laboratory criteria:Hemolyzed.PHELB STAFF has been notified of need of recollection.01/19/24719 Darrian Escobar Performed By: #### L 100.0500, L500.2500 ####[facility] [address] [place], [address] Potassium Normal 3.5-5.1 [facility] Comment on above: Result Comment: This specimen has been REJECTED due to Laboratory criteria:Hemolyzed.PHE[facility] STAFF has been notified of need of recollection.01/19/24719 Darrian Escobar Performed By: #### L 100.0500, L500.2500 ####[facility] [address] [place], [address] Basic Metabolic Profile (BMP) Normal 136-145 [facility] Comment on above: Result Comment: This specimen has been REJECTED due to Laboratory criteria:Hemolyzed.PHELB STAFF has been notified of need of recollection.01/19/24719 Darrian Escobar Performed By: #### L 100.0500, L500.2500 ####[facility] [address] [place], [address] CBC-Complete Blood Cnt No Di ffon 01-19-2024 Erythrocyte distribution width (RBC) [Ratio] 12.8 % Normal 11.6-14.6 [facility] Comment on above: Performed By: #### L 100.0500, L500.2500 ####[facility] [address] [place], [address] Hematocrit (Bld) [Volume fraction] 46.3 % Normal 40-54 [facility] Comment on above: Performed By: #### L 100.0500, L500.2500 ####[facility] [address] [place], [address] Hemoglobin (Bld) [Mass/Vol] 14.9 g/dL Normal 13.0-16.5 [facility] Comment on above: Performed By: #### L 100.0500, L500.2500 ####[facility] [address] [place], [address] MCH (RBC) [Entitic mass] 32.7 pg High 27.0-32.0 [facility] Comment on above: Performed By: #### L 100.0500, L500.2500 ####[facility] [address] [place], [address] MCHC (RBC) [Mass/Vol] 32.2 g/dL Normal 32-36 [facility] Comment on above: Performed By: #### L 100.0500, L500.2500 ####[facility] [address] [place], [address] MCV (RBC) [Entitic vol] 101.8 fL High 80-[address] [facility] Comment on above: Performed By: #### L 100.0500, L500.2500 ####[facility] [address] [place], [address] Platelet mean volume (Bld) [Entitic vol] 9.8 fL Normal 6.2-12.0 [facility] Comment on above: Performed By: #### L 100.0500, L500.2500 ####[facility] [address] [place], [address] Platelets (Bld) [#/Vol] 262 10*3/uL Normal 150-450 [facility] Comment on above: Performed By: #### L 100.0500, L500.2500 ####[facility] [address] [place], [address] RBC (Bld) [#/Vol] 4.55 10*6/uL Low 4.6-6.2 [facility] Comment on above: Performed By: #### L 100.0500, L500.2500 ####[facility] [address] [place], [address] RDW SD 48.3 fl High 35.1-43.9 [facility] Comment on above: Performed By: #### L 100.0500, L500.2500 ####[facility] [address] [place], [address] WBC (Bld) [#/Vol] 6.0 10*3/uL Normal 4.4-11.0 [facility] Comment on above: Performed By: #### L 100.0500, L500.2500 ####[facility] [address] [place], [address] Urine Cultureon 01-19-2024 URC Normal [facility] Comment on above: Performed By: #### M 100.2200 ####[facility] [address] [place], [address] Basic Metabolic Profile (BMP )on 01-17-2024 BUN/CRE 13.6 RATIO Normal 10-20 [facility] Comment on above: Performed By: #### L 501.9520, L506.1000, L500.2500, L100.0100 ####[facility] [address] [place], [address] CA,Total 7.2 mg/dL Low 8.5-10.1 [facility] Comment on above: Performed By: #### L 501.9520, L506.1000, L500.2500, L100.0100 ####[facility] [address] [place], [address] Chloride [Moles/Vol] 101 mmol/L Normal 98-107 [facility] Comment on above: Performed By: #### L 501.9520, L506.1000, L500.2500, L100.0100 ####[facility] [address] [place], [address] CO2 [Moles/Vol] 32.0 mmol/L Normal 21.0-32.0 [facility] Comment on above: Performed By: #### L 501.9520, L506.1000, L500.2500, L100.0100 ####[facility] [address] [place], [address] Creatinine [Mass/Vol] 0.59 mg/dL Low 0.70-1.30 [facility] Comment on above: Result Comment: The validity of the calculated GFR GFRAA in patients over70 years has not been determined. Clinical correlation isessential. Performed By: #### L 501.9520, L506.1000, L500.2500, L100.0100 ####[facility] [address] [place], [address] ECRCL 233.63 ml/min Normal [facility] Comment on above: Performed By: #### L 501.9520, L506.1000, L500.2500, L100.0100 ####[facility] [address] [place], [address] EST GFR - AA 179 mL/min Normal >60 [facility] Comment on above: Result Comment: Afri can Sammarinese GFR Calc Performed By: #### L 501.9520, L506.1000, L500.2500, L100.0100 ####[facility] [address] [place], [address] GAP 5 Normal 5-15 [facility] Comment on above: Performed By: #### L 501.9520, L506.1000, L500.2500, L100.0100 ####[facility] [address] [place], [address] GFR/1.73 sq M.predicted among non-blacks MDRD (S/P/Bld) [Vol rate/Area] 148 mL/min/{1.73_m2} Normal >60 [facility] Comment on above: Result Comment: Non- GFR Calc Performed By: #### L 501.9520, L506.1000, L500.2500, L100.0100 ####[facility] [address] [place], [address] Glucose [Mass/Vol] 117 mg/dL High 74-106 [facility] Comment on above: Result Comment: Fast ing Glucose result from 100 to 125 mg/dLsuggests IMPAIRED HOMEOSTASIS per A.D.A. criteria. Performed By: #### L 501.9520, L506.1000, L500.2500, L100.0100 ####[facility] [address] [place], [address] Potassium [Moles/Vol] 3.2 mmol/L Low 3.5-5.1 [facility] Comment on above: Performed By: #### L 501.9520, L506.1000, L500.2500, L100.0100 ####[facility] [address] [place], [address] Sodium [Moles/Vol] 138 mmol/L Normal 136-145 [facility] Comment on above: Performed By: #### L 501.9520, L506.1000, L500.2500, L100.0100 ####[facility] [address] [place], [address] Urea nitrogen [Mass/Vol] 8 mg/dL Normal 7-18 [facility] Comment on above: Performed By: #### L 501.9520, L506.1000, L500.2500, L100.0100 ####[facility] [address] [place], [address] CBC W/Diff, Automatedon 05- SMEAR COMMENT SCANNED Normal [facility] Comment on above: Performed By: #### L 501.9520, L506.1000, L500.2500, L100.0100 ####[facility] [address] [place], [address] Magnesiumon 01-17-2024 Magnesium [Mass/Vol] 1.7 mg/dL Normal 1.6-2.6 [facility] Comment on above: Performed By: #### L 501.5200 ####[facility] [address] [place], [address] Thyroid Stim Hormone (TSH)on 01-17-2024 TSH 3.75 uIU/mL High 0.358-3.74 [facility] Comment on above: Performed By: #### L 501.9520, L506.1000, L500.2500, L100.0100 ####[facility] [address] [place], [address] Vitamin D,25 Hydroxyon 01-16 Vitamin D 25-OH 18.0 ng/mL Normal [facility] Comment on above: Result Comment: Clara min D 25(OH) Status Range Deficiency <20 ng/mL (50nmol/L) Insufficiency 20 - 30 ng/mL (50 - 75 nmol/L) Sufficiency 30 - 100 ng/mL (75 - 250 nmol/L) Toxicity >100 ng/mL (>250 nmol/L) Performed By: #### L 501.9520, L506.1000, L500.2500, L100.0100 ####[facility] [address] [place], [address] 12 Lead EKGon 01-16-2024 12 Lead EKG Normal [facility] Abdomen/Pelvis without Conto n 01-16-2024 Abdomen/Pelvis without Cont Normal [facility] Ankle Brachial Indexon 01-15 Ankle Brachial Index Normal [facility] Basic Metabolic Profile (BMP )on 01-16-2024 BUN/CRE 7.0 RATIO Low 10-20 [facility] Comment on above: Performed By: #### L 500.2500, L100.0100 ####[facility] [address] [place], [address] CA,Total 8.0 mg/dL Low 8.5-10.1 [facility] Comment on above: Performed By: #### L 500.2500, L100.0100 ####[facility] [address] [place], [address] Chloride [Moles/Vol] 97 mmol/L Low 98-107 [facility] Comment on above: Performed By: #### L 500.2500, L100.0100 ####[facility] [address] [place], [address] CO2 [Moles/Vol] 33.0 mmol/L High 21.0-32.0 [facility] Comment on above: Performed By: #### L 500.2500, L100.0100 ####[facility] [address] [place], [address] Creatinine [Mass/Vol] 0.71 mg/dL Normal 0.70-1.30 [facility] Comment on above: Result Comment: The validity of the calculated GFR GFRAA in patients over70 years has not been determined. Clinical correlation isessential. Performed By: #### L 500.2500, L100.0100 ####[facility] [address] [place], [address] ECRCL 196.59 ml/min Normal [facility] Comment on above: Performed By: #### L 500.2500, L100.0100 ####[facility] [address] [place], [address] EST GFR - AA 144 mL/min Normal >60 [facility] Comment on above: Result Comment: Afri can S[place] GFR Calc Performed By: #### L 500.2500, L100.0100 ####[facility] [address] [place], [address] GAP 5 Normal 5-15 [facility] Comment on above: Performed By: #### L 500.2500, L100.0100 ####[facility] [address] [place], [address] GFR/1.73 sq M.predicted among non-blacks MDRD (S/P/Bld) [Vol rate/Area] 119 mL/min/{1.73_m2} Normal >60 [facility] Comment on above: Result Comment: Non- GFR Calc Performed By: #### L 500.2500, L100.0100 ####[facility] [address] [place], [address] Glucose [Mass/Vol] 144 mg/dL High 74-106 [facility] Comment on above: Result Comment: Fast ing Glucose result greater than or equal to 126 mg/dLsuggests DIABETES MELLITUS per A.D.A. criteria. Performed By: #### L 500.2500, L100.0100 ####[facility] [address] [place], [address] Potassium [Moles/Vol] 3.7 mmol/L Normal 3.5-5.1 [facility] Comment on above: Performed By: #### L 500.2500, L100.0100 ####[facility] [address] [place], [address] Sodium [Moles/Vol] 135 mmol/L Low 136-145 [facility] Comment on above: Performed By: #### L 500.2500, L100.0100 ####[facility] [address] [place], [address] Urea nitrogen [Mass/Vol] 5 mg/dL Low 7-18 [facility] Comment on above: Performed By: #### L 500.2500, L100.0100 ####[facility] [address] [place], [address] Brain/Head without Contrasto n 01-16-2024 Brain/Head without Contrast Normal [facility] CBC W/Diff, Automatedon - Absolute Lymph 1.12 X10 3/uL Normal 0.83-4.51 [facility] Comment on above: Performed By: #### L 500.2500, L100.0100 ####[facility] [address] [place], [address] Absolute Neut 4.6 X10 3/uL Normal 2.0-7.7 [facility] Comment on above: Performed By: #### L 500.2500, L100.0100 ####[facility] [address] [place], [address] Basophils/100 WBC (Bld) 0.9 % Normal 0-[address] [facility] Comment on above: Performed By: #### L 500.2500, L100.0100 ####[facility] [address] [place], [address] Eosinophils/100 WBC (Bld) 2.1 % Normal 0-5 [facility] Comment on above: Performed By: #### L 500.2500, L100.0100 ####[facility] [address] [place], [address] Erythrocyte distribution width (RBC) [Ratio] 12.6 % Normal 11.6-14.6 [facility] Comment on above: Performed By: #### L 500.2500, L100.0100 ####[facility] [address] [place], [address] Hematocrit (Bld) [Volume fraction] 47.2 % Normal 40-54 [facility] Comment on above: Performed By: #### L 500.2500, L100.0100 ####[facility] [address] [place], [address] Hemoglobin (Bld) [Mass/Vol] 15.9 g/dL Normal 13.0-16.5 [facility] Comment on above: Performed By: #### L 500.2500, L100.0100 ####[facility] [address] [place], [address] IG% 0.300 Normal 0.0-0.9 [facility] Comment on above: Result Comment: IG% - Immature Granulocytes (promyelocytes, myelocytes andmetamyelocytes) > 1% indicates that a LEFT SHIFT is Present. Performed By: #### L 500.2500, L100.0100 ####[facility] [address] [place], [address] Lymphocytes/100 WBC (Bld) 16.8 % Low 19-41 [facility] Comment on above: Performed By: #### L 500.2500, L100.0100 ####[facility] [address] [place], [address] MCH (RBC) [Entitic mass] 32.4 pg High 27.0-32.0 [facility] Comment on above: Performed By: #### L 500.2500, L100.0100 ####[facility] [address] [place], [address] MCHC (RBC) [Mass/Vol] 33.7 g/dL Normal 32-36 [facility] Comment on above: Performed By: #### L 500.2500, L100.0100 ####[facility] [address] [place], [address] MCV (RBC) [Entitic vol] 96.1 fL High 80-[address] [facility] Comment on above: Performed By: #### L 500.2500, L100.0100 ####[facility] [address] [place], [address] Monocytes/100 WBC (Bld) 11.1 % High 0-[address] [facility] Comment on above: Performed By: #### L 500.2500, L100.0100 ####[facility] [address] [place], [address] Neutrophils/100 WBC (Bld) 68.8 % Normal 47-70 [facility] Comment on above: Performed By: #### L 500.2500, L100.0100 ####[facility] [address] [place], [address] Nucleated RBC (Bld) [#/Vol] 0 10*3/uL Normal 0-5 [facility] Comment on above: Performed By: #### L 500.2500, L100.0100 ####[facility] [address] [place], [address] Platelet mean volume (Bld) [Entitic vol] 10.4 fL Normal 6.2-12.0 [facility] Comment on above: Performed By: #### L 500.2500, L100.0100 ####[facility] [address] [place], [address] Platelets (Bld) [#/Vol] 234 10*3/uL Normal 150-450 [facility] Comment on above: Performed By: #### L 500.2500, L100.0100 ####[facility] [address] [place], [address] RBC (Bld) [#/Vol] 4.91 10*6/uL Normal 4.6-6.2 [facility] Comment on above: Performed By: #### L 500.2500, L100.0100 ####[facility] [address] [place], [address] RDW SD 45.2 fl High 35.1-43.9 [facility] Comment on above: Performed By: #### L 500.2500, L100.0100 ####[facility] [address] [place], [address] WBC (Bld) [#/Vol] 6.7 10*3/uL Normal 4.4-11.0 [facility] Comment on above: Performed By: #### L 500.2500, L100.0100 ####[facility] [address] [place], [address] Chest 1 View (Portable)on 05 -28-2024 Chest 1 View (Portable) Normal [facility] Emergency Department Summary on 01-16-2024 Emergency Department Summary Normal [facility] H AND P Exam - Hospitaliston 01-16-2024 H&P Exam - Hospitalist Normal [facility] Urinalysis, Completeon 01-15 BACTERIA 1+ /hpf Normal None Seen [facility] Comment on above: Order Comment: CLEAN CATCH Performed By: #### L 400.0001 ####[facility] [address] [place], [address] RBC 0-5 SEEN Normal 0-5 [facility] Comment on above: Order Comment: CLEAN CATCH Performed By: #### L 400.0001 ####[facility] [address] [place], [address] WBC 25-50 SEEN Normal 0-5 [facility] Comment on above: Order Comment: CLEAN CATCH Performed By: #### L 400.0001 ####[facility] [address] [place], [address] EPI,SQUAMOUS 0 SEEN Normal 0-5 [facility] Comment on above: Order Comment: CLEAN CATCH Performed By: #### L 400.0001 ####[facility] [address] [place], [address] Mucus Ql (Urine sed) 0 SEEN Normal [facility] Comment on above: Order Comment: CLEAN CATCH Performed By: #### L 400.0001 ####[facility] [address] [place], [address] Basophil percentageOrdered B y: Cherelle Nguyen on 03-08-2023 Chloride [Moles/Vol] 102 mmol/L 98-107 [facility] Glucose [Mass/Vol] 119 mg/dL 74-106 [facility] Comment on above: Fasting Glucose resu lt from 100 to 125 mg/dL suggests IMPAIRED HOMEOSTASIS per A.D.A. criteria. Potassium [Moles/Vol] 3.7 mmol/L 3.5-5.1 [facility] Comment on above: Slight Hemolysis, Re sult may be falsely increased. Sodium [Moles/Vol] 138 mmol/L 136-145 [facility] Laboratory - Chemistry and C hemistry - challengeOrdered By: Cherelle Nguyen on 03-08-2023 CO2 [Moles/Vol] 30.0 mmol/L 21.0-32.0 [facility] Natriuretic peptide B (Bld) [Mass/Vol] 77.0 pg/mL 0-100 [facility] Urea nitrogen/Creatinine [Mass ratio] 10.2 mg/mg 10-20 [facility] No Panel InformationOrdered By: Cherelle Nguyen on 03-08-2023 Estimated GFR (MDRD) Amer 129 mL/min >60 [facility] Comment on above: GFR Calc Estimated GFR (MDRD) Non-Af Amer 107 mL/min >60 [facility] Comment on above: Non- GFR Calc Serum or plasma calcium rufus urement (mass/volume)Ordered By: Cherelle Nguyen on 03-08-2023 Calcium [Mass/Vol] 7.7 mg/dL 8.5-10.1 [facility] Serum or plasma creatinine m easurement (mass/volume)Ordered By: Cherelle Nguyen on 03-08-2023 Creatinine [Mass/Vol] 0.78 mg/dL 0.70-1.30 [facility] Comment on above: The validity of the calculated GFR & GFRAA in patients over 70 years has not been determined. Clinical correlation is essential. Serum or plasma urea nitroge n measurement (mass/volume)Ordered By: Cherelle Nguyen on 03-08-2023 Urea nitrogen [Mass/Vol] 8 mg/dL 7-18 [facility] Thin prep Papanicolaou smear with manual screeningOrdered By: Cherelle Nguyen on 03-08-2023 Thin prep Papanicolaou smear with manual screening 6 5-15 [facility] Absolute lymphocyte countOrd ered By: Chalo Mclean on 03-03-2023 Lymphocytes Auto (Unsp spec) [#/Vol] 1.73 10*3/uL 0.83-4.51 [facility] Basophil percentageOrdered B y: Chalo Mclean on 03-03-2023 Basophils/100 WBC (Bld) 0.4 % 0-[address] [facility] Bilirubin [Mass/Vol] 0.30 mg/dL 0.20-1.00 [facility] Comment on above: For patients on eltr ombopag therapy, use of Dimension [place] TBIL is not recommended. Chloride [Moles/Vol] 108 mmol/L 98-107 [facility] Cholesterol [Mass/Vol] 125 mg/dL <200 [facility] Comment on above: <200 mg/dL Desirable 200-240 mg/dL Borderline >240 mg/dL High Risk Eosinophils/100 WBC (Bld) 3.0 % 0-5 [facility] Glucose [Mass/Vol] 108 mg/dL 74-106 [facility] Comment on above: Fasting Glucose resu lt from 100 to 125 mg/dL suggests IMPAIRED HOMEOSTASIS per A.D.A. criteria. Neutrophils (Bld) [#/Vol] 2.4 10*3/uL 2.0-7.7 [facility] Neutrophils/100 WBC (Bld) 50.8 % 47-70 [facility] Potassium [Moles/Vol] 3.8 mmol/L 3.5-5.1 [facility] Protein [Mass/Vol] 7.1 g/dL 6.4-8.2 [facility] Sodium [Moles/Vol] 140 mmol/L 136-145 [facility] Triglyceride [Mass/Vol] 183 mg/dL <199 [facility] Comment on above: The drugs N-Acetylcy steine and Metamizole may falsely depress this assay.Serum Triglycerides Reference Interval Normal <150 mg/dL Borderline high 150 - 199 mg/dL High 200 - 499 mg/dL Very High > or = 500 mg/dL WBC (Bld) [#/Vol] 4.6 10*3/uL 4.4-11.0 [facility] Blood erythrocytes count (nu mber/volume)Ordered By: Chalo Mclean on 03-03-2023 RBC (Bld) [#/Vol] 4.66 10*6/uL 4.6-6.2 [facility] Blood hemoglobin measurement (mass/volume)Ordered By: Chalo Mclean on 03-03-2023 Hemoglobin (Bld) [Mass/Vol] 15.2 g/dL 13.0-16.5 [facility] Blood lymphocytes/100 leukoc ytesOrdered By: Chalo Mclean on 03-03-2023 Lymphocytes/100 WBC (Bld) 37.4 % 19-41 [facility] Blood monocytes/100 leukocyt esOrdered By: Chalo Vinay on 03-03-2023 Monocytes/100 WBC (Bld) 8.0 % 0-[address] [facility] Blood platelet mean volumeOr dered By: Chalo Vinay on 03-03-2023 Platelet mean volume (Bld) [Entitic vol] 10.5 fL 6.2-12.0 [facility] Determination of erythrocyte mean corpuscular volume (MCV)[facility]-2023 MCV (RBC) [Entitic vol] 100.0 fL 80-[address] [facility] Hematocrit Auto (Bld) [Volum e fraction]Ordered By: [facility] 03-03-2023 Hematocrit (Bld) [Volume fraction] 46.6 % 40-54 [facility] Laboratory - Chemistry and C hemistry - challengeOrdered By: [facility] 03-03-2023 ALP [Catalytic activity/Vol] 168 U/L 45-117 [facility] ALT [Catalytic activity/Vol] 22 U/L 16-61 [facility] CO2 [Moles/Vol] 23.0 mmol/L 21.0-32.0 [facility] Globulin (S) [Mass/Vol] 4.7 g/dL 2.2-4.[address] [facility] Urea nitrogen/Creatinine [Mass ratio] 10.1 mg/mg 10-20 [facility] Laboratory - Hematology and Cell countsOrdered By: [facility] 03-03-2023 Erythrocyte distribution width (RBC) [Entitic vol] 56.5 fL 35.1-43.9 [facility] Erythrocyte distribution width (RBC) [Ratio] 15.1 % 11.6-14.6 [facility] Immature granulocytes/100 WBC (Bld) 0.400 % 0.0-0.9 [facility] Comment on above: IG% - Immature Granu locytes (promyelocytes, myelocytes and metamyelocytes) > 1% indicates that a LEFT SHIFT is Present. MCH (RBC) [Entitic mass] 32.6 pg 27.0-32.0 [facility] Nucleated RBC/100 WBC (Bld) [Ratio] 0 % 0-5 [facility] Auto (RBC) [Mass/Vol]Or dered By: Chalo Mclean on 03-03-2023 MCHC (RBC) [Mass/Vol] 32.6 g/dL 32-36 [facility] No Panel InformationOrdered By: Chalo Mclean on 03-03-2023 Estimated GFR (MDRD) Amer 148 mL/min >60 [facility] Comment on above: GFR Calc Estimated GFR (MDRD) Non-Af Amer 122 mL/min >60 [facility] Comment on above: Non- GFR Calc Thyroid Stimulating Hormone (TSH) 2.25 uIU/mL 0.358-3.74 [facility] Platelets bldOrdered By: Chalo Mclean on 03-03-2023 Platelets (Bld) [#/Vol] 213 10*3/uL 150-450 [facility] Serum or plasma albumin rufus urement (mass/volume)Ordered By: Chlao Mclean on 03-03-2023 Albumin [Mass/Vol] 2.4 g/dL 3.2-5.0 [facility] Serum or plasma albumin/glob ulin mass ratioOrdered By: Chalo Mclean 03-03-2023 Albumin/Globulin [Mass ratio] 0.5 {ratio} 0.9-2.4 [facility] Serum or plasma calcium rufus urement (mass/volume)Ordered By: Chalo Mclean 03-03-2023 Calcium [Mass/Vol] 7.6 mg/dL 8.5-10.1 [facility] Serum or plasma cholesterol in HDL measurement (mass/volume)Ordered By: Chalo Mclean 03-03-2023 Cholesterol in HDL [Mass/Vol] 38 mg/dL >40 [facility] Comment on above: The drugs N-Acetylcy steine and Metamizole may falsely depress this assay. Reference Range HDL <40 mg/dL Low HDL Cholesterol HDL >or= 60 mg/dL High HDL Cholesterol Serum or plasma cholesterol in VLDL measurement (mass/volume)Ordered By: Chalo Mclean on 03-03-2023 Cholesterol in VLDL [Mass/Vol] 37 mg/dL 5-40 [facility] Serum or plasma creatinine m easurement (mass/volume)Ordered By: Chalo Mclean 03-03-2023 Creatinine [Mass/Vol] 0.70 mg/dL 0.70-1.30 [facility] Comment on above: The validity of the calculated GFR & GFRAA in patients over 70 years has not been determined. Clinical correlation is essential. Serum or plasma low density lipoprotein (LDL) cholesterol measurement (mass/volume)Ordered By: Chalo Mclean on 03-03-2023 Cholesterol in LDL [Mass/Vol] 50 mg/dL 0-130 [facility] Serum or plasma urea nitroge n measurement (mass/volume)Ordered By: Chalo Mclean on 03-03-2023 Urea nitrogen [Mass/Vol] 7 mg/dL 7-18 [facility] Serum or plasma uric acid me asurement (mass/volume)Ordered By: Chalo Mclean on 03-03-2023 Urate [Mass/Vol] 8.6 mg/dL 3.5-7.2 [facility] Comment on above: The drugs N-Acetylcy steine and Metamizole may falsely depress this assay. Thin prep Papanicolaou smear with manual screeningOrdered By: Chalo Mclean on 03-03-2023 Thin prep Papanicolaou smear with manual screening 31 U/L 15-37 [facility] Thin prep Papanicolaou smear with manual screening 9 5-15 [facility] Basophil percentageOrdered B y: Tracy Monet on 02-01-2023 Chloride [Moles/Vol] 103 mmol/L 98-107 [facility] Glucose [Mass/Vol] 113 mg/dL 74-106 [facility] Comment on above: Fasting Glucose resu lt from 100 to 125 mg/dL suggests IMPAIRED HOMEOSTASIS per A.D.A. criteria. Potassium [Moles/Vol] 4.1 mmol/L 3.5-5.1 [facility] Sodium [Moles/Vol] 136 mmol/L 136-145 [facility] - Chemistry and C hemistry - challengeOrdered By: Tracy Monet on 02-01-2023 CO2 [Moles/Vol] 26.0 mmol/L 21.0-32.0 [facility] Urea nitrogen/Creatinine [Mass ratio] 7.1 mg/mg 10-20 [facility] No Panel InformationOrdered By: Tracy Monet on 06-14-2023 Estimated GFR (MDRD) Amer 146 mL/min >60 [facility] Comment on above: GFR Calc Estimated GFR (MDRD) Non-Af Amer 120 mL/min >60 [facility] Comment on above: Non- GFR Calc Serum or plasma calcium rufus urement (mass/volume)Ordered By: Tracy Monet on 02-01-2023 Calcium [Mass/Vol] 8.0 mg/dL 8.5-10.1 [facility] Serum or plasma creatinine m easurement (mass/volume)Ordered By: Tracy Monet on 02-01-2023 Creatinine [Mass/Vol] 0.71 mg/dL 0.70-1.30 [facility] Comment on above: The validity of the calculated GFR & GFRAA in patients over 70 years has not been determined. Clinical correlation is essential. Serum or plasma urea nitroge n measurement (mass/volume)Ordered By: Tracy Monet on 02-01-2023 Urea nitrogen [Mass/Vol] 5 mg/dL 7-18 [facility] Thin prep Papanicolaou smear with manual screeningOrdered By: Tracy Monet on 02-01-2023 Thin prep Papanicolaou smear with manual screening 7 5-15 [facility] Absolute lymphocyte countOrd ered By: Dr. Gomez on 01-28-2023 Lymphocytes Auto (Unsp spec) [#/Vol] 1.35 10*3/uL 0.83-4.51 [facility] Basophil percentageOrdered B y: Dr. Gomez on 01-28-2023 Basophils/100 WBC (Bld) 0.4 % 0-[address] [facility] Bilirubin [Mass/Vol] 0.40 mg/dL 0.20-1.00 [facility] Comment on above: For patients on eltr ombopag therapy, use of [place] TBIL is not recommended. Chloride [Moles/Vol] 97 mmol/L 98-107 [facility] Eosinophils/100 WBC (Bld) 2.3 % 0-5 [facility] Glucose [Mass/Vol] 112 mg/dL 74-106 [facility] Comment on above: Fasting Glucose resu lt from 100 to 125 mg/dL suggests IMPAIRED HOMEOSTASIS per A.D.A. criteria. Neutrophils (Bld) [#/Vol] 2.9 10*3/uL 2.0-7.7 [facility] Neutrophils/100 WBC (Bld) 58.8 % 47-70 [facility] Potassium [Moles/Vol] 3.8 mmol/L 3.5-5.1 [facility] Protein [Mass/Vol] 5.8 g/dL 6.4-8.2 [facility] Sodium [Moles/Vol] 133 mmol/L 136-145 [facility] WBC (Bld) [#/Vol] 4.9 10*3/uL 4.4-11.0 [facility] Blood erythrocytes count (nu mber/volume)Ordered By: Dr. Gomez on 01-28-2023 RBC (Bld) [#/Vol] 4.23 10*6/uL 4.6-6.2 [facility] Blood hemoglobin measurement (mass/volume)Ordered By: Dr. Gomez on 01-28-2023 Hemoglobin (Bld) [Mass/Vol] 13.7 g/dL 13.0-16.5 [facility] Blood lymphocytes/100 leukoc ytesOrdered By: Dr. Gomez on 01-28-2023 Lymphocytes/100 WBC (Bld) 27.7 % 19-41 [facility] Blood monocytes/100 leukocyt esOrdered By: Dr. Gomez on 01-28-2023 Monocytes/100 WBC (Bld) 10.2 % 0-[address] [facility] Blood platelet mean volumeOr dered By: Dr. Gomez on 01-28-2023 Platelet mean volume (Bld) [Entitic vol] 9.3 fL 6.2-12.0 [facility] Determination of erythrocyte mean corpuscular volume (MCV)Ordered By: Dr. Gomez on 01-28-2023 MCV (RBC) [Entitic vol] 96.5 fL 80-[address] [facility] Hematocrit Auto (Bld) [Volum e fraction]Ordered By: Dr. Gomez on 01-28-2023 Hematocrit (Bld) [Volume fraction] 40.8 % 40-54 [facility] - Chemistry and C hemistry - challengeOrdered By: Dr. Gomez on 01-28-2023 ALP [Catalytic activity/Vol] 154 U/L 45-117 [facility] ALT [Catalytic activity/Vol] 18 U/L 16-61 [facility] CO2 [Moles/Vol] 31.0 mmol/L 21.0-32.0 [facility] Globulin (S) [Mass/Vol] 3.7 g/dL 2.2-4.[address] [facility] Urea nitrogen/Creatinine [Mass ratio] 13.2 mg/mg 10-20 [facility] - Hematology and Cell countsOrdered By: Dr. Gomez on 01-28-2023 Erythrocyte distribution width (RBC) [Entitic vol] 53.8 fL 35.1-43.9 [facility] Erythrocyte distribution width (RBC) [Ratio] 15.1 % 11.6-14.6 [facility] Immature granulocytes/100 WBC (Bld) 0.600 % 0.0-0.9 [facility] Comment on above: IG% - Immature Granu locytes (promyelocytes, myelocytes and metamyelocytes) > 1% indicates that a LEFT SHIFT is Present. MCH (RBC) [Entitic mass] 32.4 pg 27.0-32.0 [facility] Nucleated RBC/100 WBC (Bld) [Ratio] 0 % 0-5 [facility] MCHC Auto (RBC) [Mass/Vol]Or dered By: Dr. Gomez on 01-28-2023 MCHC (RBC) [Mass/Vol] 33.6 g/dL 32-36 [facility] No Panel InformationOrdered By: Dr. Gomez on 01-28-2023 Estimated Creatinine Clearance Calc 150.32 ml/min [facility] Estimated GFR (MDRD) Amer 175 mL/min >60 [facility] Comment on above: GFR Calc Estimated GFR (MDRD) Non-Af Amer 144 mL/min >60 [facility] Comment on above: Non- GFR Calc Platelets bldOrdered By: Dr. Gomez on 01-28-2023 Platelets (Bld) [#/Vol] 265 10*3/uL 150-450 [facility] Serum or plasma albumin rufus urement (mass/volume)Ordered By: Dr. Gomez on 01-28-2023 Albumin [Mass/Vol] 2.1 g/dL 3.2-5.0 [facility] Serum or plasma albumin/glob ulin mass ratioOrdered By: Dr. Gomez on 01-28-2023 Albumin/Globulin [Mass ratio] 0.6 {ratio} 0.9-2.4 [facility] Serum or plasma calcium rufus urement (mass/volume)Ordered By: Dr. Gomez on 01-28-2023 Calcium [Mass/Vol] 7.5 mg/dL 8.5-10.1 [facility] Serum or plasma creatinine m easurement (mass/volume)Ordered By: Dr. Gomez on 01-28-2023 Creatinine [Mass/Vol] 0.60 mg/dL 0.70-1.30 [facility] Comment on above: The validity of the calculated GFR & GFRAA in patients over 70 years has not been determined. Clinical correlation is essential. Serum or plasma urea nitroge n measurement (mass/volume)Ordered By: Dr. Gomez on 01-28-2023 Urea nitrogen [Mass/Vol] 8 mg/dL 7-18 [facility] Thin prep Papanicolaou smear with manual screeningOrdered By: Dr. Gomez on 01-28-2023 Thin prep Papanicolaou smear with manual screening 20 U/L 15-37 [facility] Thin prep Papanicolaou smear with manual screening 5 5-15 [facility] No Panel InformationOrdered By: Dr. Gomez on 01-27-2023 Thyroid Stimulating Hormone (TSH) 3.39 uIU/mL 0.358-3.74 [facility] Absolute lymphocyte countOrd ered By: Dr. Amaya on 01-26-2023 Lymphocytes Auto (Unsp spec) [#/Vol] 1.18 10*3/uL 0.83-4.51 [facility] Basophil percentageOrdered B y: Dr. Amaya on 01-26-2023 Basophil percentage 25-50 SEEN /hpf 0-5 [facility] Basophils/100 WBC (Bld) 0.4 % 0-[address] [facility] Bilirubin [Mass/Vol] 0.50 mg/dL 0.20-1.00 [facility] Comment on above: For patients on eltr ombopag therapy, use of [place] TBIL is not recommended. Chloride [Moles/Vol] 77 mmol/L 98-107 [facility] Eosinophils/100 WBC (Bld) 1.5 % 0-5 [facility] Glucose [Mass/Vol] 124 mg/dL 74-106 [facility] Comment on above: Fasting Glucose resu lt from 100 to 125 mg/dL suggests IMPAIRED HOMEOSTASIS per A.D.A. criteria. Neutrophils (Bld) [#/Vol] 6.2 10*3/uL 2.0-7.7 [facility] Neutrophils/100 WBC (Bld) 76.1 % 47-70 [facility] Potassium [Moles/Vol] 4.3 mmol/L 3.5-5.1 [facility] Protein [Mass/Vol] 6.6 g/dL 6.4-8.2 [facility] Sodium [Moles/Vol] 115 mmol/L 136-145 [facility] Comment on above: Critical Result(s) C alled at: 11:23:27 01/26/2023 by: Louise Zepeda. Results read back by same. WBC (Bld) [#/Vol] 8.2 10*3/uL 4.4-11.0 [facility] Basophil percentageOrdered B y: Dr. Gomez on 01-26-2023 Basophil percentage 2.5 mg/dL 2.5-4.9 [facility] Bilirubin Test strip Ql (U)O rdered By: Dr. Amaya on 01-26-2023 Bilirubin Ql (U) Negative Negative [facility] Blood erythrocytes count (nu mber/volume)Ordered By: Dr. Amaya on 01-26-2023 RBC (Bld) [#/Vol] 4.60 10*6/uL 4.6-6.2 [facility] Blood hemoglobin measurement (mass/volume)Ordered By: Dr. Amaya on 01-26-2023 Hemoglobin (Bld) [Mass/Vol] 15.0 g/dL 13.0-16.5 [facility] Blood lymphocytes/100 leukoc ytesOrdered By: Dr. Amaya on 01-26-2023 Lymphocytes/100 WBC (Bld) 14.4 % 19-41 [facility] Blood monocytes/100 leukocyt esOrdered By: Dr. Amaya on 01-26-2023 Monocytes/100 WBC (Bld) 7.1 % 0-10 [facility] Blood platelet mean volumeOr dered By: Dr. Amaya on 01-26-2023 Platelet mean volume (Bld) [Entitic vol] 9.2 fL 6.2-12.0 [facility] Determination of erythrocyte mean corpuscular volume (MCV)Ordered By: Dr. Amaya on 01-26-2023 MCV (RBC) [Entitic vol] 90.9 fL 80-[address] [facility] Hematocrit Auto (Bld) [Volum e fraction]Ordered By: Dr. Amaya on 01-26-2023 Hematocrit (Bld) [Volume fraction] 41.8 % 40-54 [facility] Influenza virus A and B and SARS-CoV-2 (COVID-19) Ag panel - Upper respiratory specimOrdered By: Teofilo Amaya on 01-26-2023 SARS-CoV-2 (COVID-19) RNA ROBBY+probe Ql (Resp) [facility] Influenza virus A and B and SARS-CoV-2 (COVID-19) Ag panel - Upper respiratory specimOrdered By: Dr. Amaya on 01-26-2023 SARS-CoV-2 (COVID-19) RNA ROBBY+probe Ql (Resp) [facility] Ketones Test strip Ql (U)Ord ered By: Dr. Amaya on 01-26-2023 Ketones Ql (U) 5 mg/dl Negative [facility] - Chemistry and C hemistry - challengeOrdered By: Dr. Gomez on 01-26-2023 Cobalamin (Vitamin B12) [Mass/Vol] 417 pg/mL 211-911 [facility] Sodium (U) [Moles/Vol] 18 mmol/L Not Establ. [facility] Magnesium [Mass/Vol] 1.9 mg/dL 1.6-2.6 [facility] - Chemistry and C hemistry - challengeOrdered By: Dr. Amaya on 01-26-2023 ALP [Catalytic activity/Vol] 201 U/L 45-117 [facility] ALT [Catalytic activity/Vol] 21 U/L 16-61 [facility] CO2 [Moles/Vol] 27.0 mmol/L 21.0-32.0 [facility] Globulin (S) [Mass/Vol] 4.2 g/dL 2.2-4.[address] [facility] Natriuretic peptide B (Bld) [Mass/Vol] 50.4 pg/mL 0-100 [facility] Urea nitrogen/Creatinine [Mass ratio] 9.9 mg/mg 10-20 [facility] - Hematology and Cell countsOrdered By: Dr. Amaya on 01-26-2023 Erythrocyte distribution width (RBC) [Entitic vol] 48.0 fL 35.1-43.9 [facility] Erythrocyte distribution width (RBC) [Ratio] 14.4 % 11.6-14.6 [facility] Immature granulocytes/100 WBC (Bld) 0.500 % 0.0-0.9 [facility] Comment on above: IG% - Immature Granu locytes (promyelocytes, myelocytes and metamyelocytes) > 1% indicates that a LEFT SHIFT is Present. MCH (RBC) [Entitic mass] 32.6 pg 27.0-32.0 [facility] Nucleated RBC/100 WBC (Bld) [Ratio] 0 % 0-5 [facility] MCHC Auto (RBC) [Mass/Vol]Or dered By: Dr. Amaya on 01-26-2023 MCHC (RBC) [Mass/Vol] 35.9 g/dL 32-36 [facility] Mucus LM Ql (Urine sed)Order ed By: Dr. Amaya on 01-26-2023 Mucus Ql (Urine sed) 0 SEEN /hpf [facility] Nitrite Test strip Ql (U)Ord ered By: Dr. Amaya on 01-26-2023 Nitrite Ql (U) Positive Negative [facility] No Panel InformationOrdered By: Dr. Gomez on 01-26-2023 Urine Potassium 29.0 mmol/L Not Establ. [facility] Urine Urea Nitrogen 447 mg/dL NO RANGE EST. [facility] No Panel InformationOrdered By: Dr. Amaya on 01-26-2023 Estimated Creatinine Clearance Calc 127.03 ml/min [facility] Estimated GFR (MDRD) Amer 145 mL/min >60 [facility] Comment on above: GFR Calc Estimated GFR (MDRD) Non-Af Amer 120 mL/min >60 [facility] Comment on above: Non- GFR Calc Troponin I High Sensitivity 13 pg/mL 3.0-78.0 [facility] Comment on above: Please Note: [place] t Units and Gender Specific Reference Ranges. For more information see Policy Stat Procedure [place] High Sensitivity Troponin (TNIH) and attachments. Platelets bldOrdered By: Dr. Amaya on 01-26-2023 Platelets (Bld) [#/Vol] 284 10*3/uL 150-450 [facility] Protein Test strip Ql (U)Ord ered By: Dr. Amaya on 01-26-2023 Protein Ql (U) Negative Negative [facility] Serum or plasma albumin rufus urement (mass/volume)Ordered By: Dr. Amaya on 01-26-2023 Albumin [Mass/Vol] 2.4 g/dL 3.2-5.0 [facility] Serum or plasma albumin/glob ulin mass ratioOrdered By: Dr. Amaya on 01-26-2023 Albumin/Globulin [Mass ratio] 0.6 {ratio} 0.9-2.4 [facility] Serum or plasma calcium rufus urement (mass/volume)Ordered By: Dr. Amaya on 01-26-2023 Calcium [Mass/Vol] 7.3 mg/dL 8.5-10.1 [facility] Serum or plasma creatinine m easurement (mass/volume)Ordered By: Dr. Amaya on 01-26-2023 Creatinine [Mass/Vol] 0.71 mg/dL 0.70-1.30 [facility] Comment on above: The validity of the calculated GFR & GFRAA in patients over 70 years has not been determined. Clinical correlation is essential. Serum or plasma urea nitroge n measurement (mass/volume)Ordered By: Dr. Amaya on 01-26-2023 Urea nitrogen [Mass/Vol] 7 mg/dL 7-18 [facility] Squamous epithelial cells de tection in urine sediment by light microscopyOrdered By: Dr. Amaya on 01-26-2023 Epithelial cells.squamous LM Ql (Urine sed) 0-5 SEEN /hpf 0-5 [facility] Thin prep Papanicolaou smear with manual screeningOrdered By: Dr. Gomez on 01-26-2023 Thin prep Papanicolaou smear with manual screening 244 mOsm/KG 280-301 [facility] Thin prep Papanicolaou smear with manual screening 17 mmol/L Not Establ. [facility] Thin prep Papanicolaou smear with manual screeningOrdered By: Dr. Amaya on 01-26-2023 Thin prep Papanicolaou smear with manual screening 23 U/L 15-37 [facility] Thin prep Papanicolaou smear with manual screening 11 5-15 [facility] Urine blood detectionOrdered By: Dr. Amaya on 01-26-2023 RBC Ql (U) 10 /ul Negative [facility] RBC Ql (U) 0-5 SEEN /hpf 0-5 [facility] Urine clarityOrdered By: Dr. Amaya on 01-26-2023 Clarity (U) Sl. Cloudy Clear [facility] Urine color determinationOrd ered By: Dr. Amaya on 01-26-2023 Color (U) Yellow Yellow [facility] Urine creatinine measurement (mass/volume)Ordered By: Dr. Gomez on 01-26-2023 Creatinine (U) [Mass/Vol] 89.60 mg/dL NO RANGE EST. [facility] Urine glucose detectionOrder ed By: Dr. Amaya on 01-26-2023 Glucose Ql (U) Normal mg/dl Normal [facility] Urine leukocyte esterase det ection by dipstickOrdered By: Dr. Amaya on 01-26-2023 Leukocyte esterase Test strip Ql (U) 500 /ul Negative [facility] Urine osmolality measurement Ordered By: Dr. Gomez on 01-26-2023 Osmolality (U) [Osmolality] 341 mOsm/KG >50 [facility] Comment on above: Normal Urine Referen ce Ranges Random: 50 - 1200 mOsm/kg H20 depending on fluid intake Random: >850 mOsm/kg after 12 hour fluid restriction 24 hour: ~300 - 900 mOsm/kg H2O Urine pHOrdered By: Dr. Elizabeth sandhu on 01-26-2023 pH (U) 6.0 [pH] 5.0 - 8.0 [facility] Urine sediment bacteria coun t by microscopy (number/high power field)Ordered By: Dr. Amaya on 01-26-2023 Bacteria LM.HPF (Urine sed) [#/Area] 2 /[HPF] None Seen [facility] Urine specific gravity measu rementOrdered By: Dr. Amaya on 01-26-2023 Specific gravity (U) [Rel density] 1.015 1.002-1.030 [facility] Urobilinogen Auto test strip Ql (U)Ordered By: Dr. Amaya on 01-26-2023 Urobilinogen Ql (U) 1 mg/dl Normal [facility] Basophil percentageOrdered B y: Tracy Monet on 01-17-2023 Chloride [Moles/Vol] 102 mmol/L 98-107 [facility] Glucose [Mass/Vol] 98 mg/dL 74-106 [facility] Potassium [Moles/Vol] 3.8 mmol/L 3.5-5.1 [facility] Sodium [Moles/Vol] 137 mmol/L 136-145 [facility] WBC (Bld) [#/Vol] 4.1 10*3/uL 4.4-11.0 [facility] Blood erythrocytes count (nu mber/volume)Ordered By: Tracy Monet on 01-17-2023 RBC (Bld) [#/Vol] 4.12 10*6/uL 4.6-6.2 [facility] Blood hemoglobin measurement (mass/volume)Ordered By: Tracy Monet on 01-17-2023 Hemoglobin (Bld) [Mass/Vol] 13.3 g/dL 13.0-16.5 [facility] Blood platelet mean volumeOr dered By: Tracy Monet on 01-17-2023 Platelet mean volume (Bld) [Entitic vol] 10.1 fL 6.2-12.0 [facility] Determination of erythrocyte mean corpuscular volume (MCV)Ordered By: Tracy Monet on 01-17-2023 MCV (RBC) [Entitic vol] 99.3 fL 80-[address] [facility] Hematocrit Auto (Bld) [Volum e fraction]Ordered By: Tracy Monet on 01-17-2023 Hematocrit (Bld) [Volume fraction] 40.9 % 40-54 [facility] - Chemistry and C hemistry - challengeOrdered By: Tracy Monet on 01-17-2023 CO2 [Moles/Vol] 25.0 mmol/L 21.0-32.0 [facility] Natriuretic peptide B (Bld) [Mass/Vol] 100.5 pg/mL 0-100 [facility] Urea nitrogen/Creatinine [Mass ratio] 6.2 mg/mg 10-20 [facility] - Hematology and Cell countsOrdered By: Tracy Monet on 01-17-2023 Erythrocyte distribution width (RBC) [Entitic vol] 57.1 fL 35.1-43.9 [facility] Erythrocyte distribution width (RBC) [Ratio] 15.7 % 11.6-14.6 [facility] MCH (RBC) [Entitic mass] 32.3 pg 27.0-32.0 [facility] MCHC Auto (RBC) [Mass/Vol]Or dered By: Tracy Monet on 01-17-2023 MCHC (RBC) [Mass/Vol] 32.5 g/dL 32-36 [facility] No Panel InformationOrdered By: Tracy Monet on 01-17-2023 Estimated GFR (MDRD) Amer 162 mL/min >60 [facility] Comment on above: GFR Calc Estimated GFR (MDRD) Non-Af Amer 134 mL/min >60 [facility] Comment on above: Non- GFR Calc Platelets bldOrdered By: Chiki Monet on 01-17-2023 Platelets (Bld) [#/Vol] 218 10*3/uL 150-450 [facility] Serum or plasma calcium rufus urement (mass/volume)Ordered By: Tracy Monet on 01-17-2023 Calcium [Mass/Vol] 7.2 mg/dL 8.5-10.1 [facility] Serum or plasma creatinine m easurement (mass/volume)Ordered By: Tracy oMnet on 01-17-2023 Creatinine [Mass/Vol] 0.64 mg/dL 0.70-1.30 [facility] Comment on above: The validity of the calculated GFR & GFRAA in patients over 70 years has not been determined. Clinical correlation is essential. Serum or plasma urea nitroge n measurement (mass/volume)Ordered By: Tracy Monet on 01-17-2023 Urea nitrogen [Mass/Vol] 4 mg/dL 7-18 [facility] Thin prep Papanicolaou smear with manual screeningOrdered By: Tracy Monet on 01-17-2023 Thin prep Papanicolaou smear with manual screening 10 5-15 [facility] Absolute lymphocyte countOrd ered By: Dr. Mclean on 09-07-2022 Lymphocytes Auto (Unsp spec) [#/Vol] 1.43 10*3/uL 0.83-4.51 [facility] Basophil percentageOrdered B y: Dr. Mclean on 09-07-2022 Basophils/100 WBC (Bld) 0.5 % 0-[address] [facility] Bilirubin [Mass/Vol] 0.40 mg/dL 0.20-1.00 [facility] Comment on above: For patients on eltr ombopag therapy, use of Dimension [place] TBIL is not recommended. Chloride [Moles/Vol] 103 mmol/L 98-107 [facility] Eosinophils/100 WBC (Bld) 4.5 % 0-5 [facility] Glucose [Mass/Vol] 120 mg/dL 74-106 [facility] Comment on above: Fasting Glucose resu lt from 100 to 125 mg/dL suggests IMPAIRED HOMEOSTASIS per A.D.A. criteria. Neutrophils (Bld) [#/Vol] 4.1 10*3/uL 2.0-7.7 [facility] Neutrophils/100 WBC (Bld) 65.0 % 47-70 [facility] Potassium [Moles/Vol] 3.6 mmol/L 3.5-5.1 [facility] Protein [Mass/Vol] 7.8 g/dL 6.4-8.2 [facility] Sodium [Moles/Vol] 137 mmol/L 136-145 [facility] WBC (Bld) [#/Vol] 6.3 10*3/uL 4.4-11.0 [facility] Blood erythrocytes count (nu mber/volume)Ordered By: Dr. Mclean on 09-07-2022 RBC (Bld) [#/Vol] 4.76 10*6/uL 4.6-6.2 [facility] Blood hemoglobin measurement (mass/volume)Ordered By: Dr. Mclean on 09-07-2022 Hemoglobin (Bld) [Mass/Vol] 13.8 g/dL 13.0-16.5 [facility] Blood lymphocytes/100 leukoc ytesOrdered By: Dr. Mclean on 09-07-2022 Lymphocytes/100 WBC (Bld) 22.7 % 19-41 [facility] Blood monocytes/100 leukocyt esOrdered By: Dr. Mclean on 09-07-2022 Monocytes/100 WBC (Bld) 7.0 % 0-[address] [facility] Blood platelet mean volumeOr dered By: Dr. Mclean on 09-07-2022 Platelet mean volume (Bld) [Entitic vol] 10.6 fL 6.2-12.0 [facility] Determination of erythrocyte mean corpuscular volume (MCV)Ordered By: Dr. Mclean on 09-07-2022 MCV (RBC) [Entitic vol] 89.1 fL 80-[address] [facility] Hematocrit Auto (Bld) [Volum e fraction]Ordered By: Dr. Mclean on 09-07-2022 Hematocrit (Bld) [Volume fraction] 42.4 % 40-54 [facility] - Chemistry and C hemistry - challengeOrdered By: Dr. Mclean on 09-07-2022 ALP [Catalytic activity/Vol] 128 U/L 45-117 [facility] ALT [Catalytic activity/Vol] 18 U/L 16-61 [facility] CO2 [Moles/Vol] 27.0 mmol/L 21.0-32.0 [facility] Globulin (S) [Mass/Vol] 4.6 g/dL 2.2-4.[address] [facility] [facility] Urea nitrogen/Creatinine [Mass ratio] 12.1 mg/mg 10-20 [facility] - Hematology and Cell countsOrdered By: Dr. Mclean on 09-07-2022 Erythrocyte distribution width (RBC) [Entitic vol] 50.9 fL 35.1-43.9 [facility] Erythrocyte distribution width (RBC) [Ratio] 15.4 % 11.6-14.6 [facility] Immature granulocytes/100 WBC (Bld) 0.300 % 0.0-0.9 [facility] Comment on above: IG% - Immature Granu locytes (promyelocytes, myelocytes and metamyelocytes) > 1% indicates that a LEFT SHIFT is Present. MCH (RBC) [Entitic mass] 29.0 pg 27.0-32.0 [facility] Nucleated RBC/100 WBC (Bld) [Ratio] 0 % [facility]-5 [facility] ([facility]BC) [Mass/Vol]Or dered By: Dr. Mclean on 09-07-2022 MCHC (RBC) [Mass/Vol] 32.5 g/dL 32-36 [facility] No Panel InformationOrdered By: Dr. Mclean on 09-07-2022 Estimated GFR (MDRD) Amer 122 mL/min >60 [facility] Comment on above: GFR Calc Estimated GFR (MDRD) Non-Af Amer 101 mL/min >60 [facility] Comment on above: Non- GFR Calc Prostate Specific Antigen Screen 0.10 ng/mL 0.00-4.00 [facility] Comment on above: This test was perfor med using the TPSA assay method for [employer] chemistry system. Values obtained with differentassay methods cannot be used interchangably.When changing PSA assays in the course of monitoring apatient, additional sequential testing should be carriedout to confirm baseline values. Thyroid Stimulating Hormone (TSH) 3.08 uIU/mL 0.358-3.74 [facility] Vitamin D 25-Hydroxy 14.7 ng/mL [facility] Comment on above: Vitamin D 25(OH) Sta tus Range Deficiency <20 ng/mL (50nmol/L) Insufficiency 20 - 30 ng/mL (50 - 75 nmol/L) Sufficiency 30 - 100 ng/mL (75 - 250 nmol/L) Toxicity >100 ng/mL (>250 nmol/L) Platelets bldOrdered By: Dr. Mclean on 09-07-2022 Platelets (Bld) [#/Vol] 269 10*3/uL 150-450 [facility] Serum or plasma albumin rufus urement (mass/volume)Ordered By: Dr. Mclean on 09-07-2022 Albumin [Mass/Vol] 3.2 g/dL 3.2-5.0 [facility] Serum or plasma albumin/glob ulin mass ratioOrdered By: Dr. Mclean on 09-07-2022 Albumin/Globulin [Mass ratio] 0.7 {ratio} 0.9-2.4 [facility] Serum or plasma calcium rufus urement (mass/volume)Ordered By: Dr. Mclean on 09-07-2022 Calcium [Mass/Vol] 8.6 mg/dL 8.5-10.1 [facility] Serum or plasma creatinine m easurement (mass/volume)Ordered By: Dr. Mclean on 09-07-2022 Creatinine [Mass/Vol] 0.82 mg/dL 0.70-1.30 [facility] Comment on above: The validity of the calculated GFR & GFRAA in patients over 70 years has not been determined. Clinical correlation is essential. Serum or plasma urea nitroge n measurement (mass/volume)Ordered By: Dr. Mclean on 09-07-2022 Urea nitrogen [Mass/Vol] 10 mg/dL 03-07 [facility] Serum or plasma uric acid me asurement (mass/volume)Ordered By: Dr. Mclean on 09-07-2022 Urate [Mass/Vol] 6.6 mg/dL 3.5-7.2 [facility] Comment on above: The drugs N-Acetylcy steine and Metamizole may falsely depress this assay. Thin prep Papanicolaou smear with manual screeningOrdered By: Dr. Mclean on 09-07-2022 Thin prep Papanicolaou smear with manual screening 17 U/L 15-37 [facility] Thin prep Papanicolaou smear with manual screening 7 5-15 [facility] No Panel InformationOrdered By: Dr. León on 08-23-2022 Prostate Specific Antigen Total 0.08 ng/mL 0.0-4.0 [facility] Comment on above: This test was perfor med using the TPSA assay method [facility]. Values obtained with differentassay methods cannot be used interchangably.When changing PSA assays in the course of monitoring apatient, additional sequential testing should be carriedout to confirm baseline values. Culture, urineOrdered By: Dr Joselito Mclean on 06-10-2022 Bacteria identified Cx Nom (U) Acinetobacter baumannii [facility] Basophil percentageOrdered B y: Dr. Mclean on 06-08-2022 Chloride [Moles/Vol] 98 mmol/L 98-107 [facility] Glucose [Mass/Vol] 123 mg/dL 74-106 [facility] Comment on above: Fasting Glucose resu lt from 100 to 125 mg/dL suggests IMPAIRED HOMEOSTASIS per A.D.A. criteria. Potassium [Moles/Vol] 3.7 mmol/L 3.5-5.1 [facility] Sodium [Moles/Vol] 133 mmol/L 136-145 [facility] - Chemistry and C hemistry - challengeOrdered By: Dr. Mclean on 06-08-2022 CO2 [Moles/Vol] 29.0 mmol/L 21.0-32.0 [facility] Urea nitrogen/Creatinine [Mass ratio] 15.2 mg/mg - [facility] No Panel InformationOrdered By: Dr. Mclean on 06-08-2022 Estimated GFR (MDRD) Amer 179 mL/min >60 [facility] Comment on above: GFR Calc Estimated GFR (MDRD) Non-Af Amer 148 mL/min >60 [facility] Comment on above: Non- GFR Calc Serum or plasma calcium rufus urement (mass/volume)Ordered By: Dr. Mclean on 06-08-2022 Calcium [Mass/Vol] 8.8 mg/dL 8.5-10.1 [facility] Serum or plasma creatinine m easurement (mass/volume)Ordered By: Dr. Mclean on 06-08-2022 Creatinine [Mass/Vol] 0.59 mg/dL 0.70-1.30 [facility] Comment on above: The validity of the calculated GFR & GFRAA in patients over 70 years has not been determined. Clinical correlation is essential. Serum or plasma urea nitroge n measurement (mass/volume)Ordered By: Dr. Mclean on 06-08-2022 Urea nitrogen [Mass/Vol] 9 mg/dL 7-18 [facility] Thin prep Papanicolaou smear with manual screeningOrdered By: Dr. Mclean on 06-08-2022 Thin prep Papanicolaou smear with manual screening 6 5-15 [facility] Absolute lymphocyte countOrd ered By: Dr. Rodriguez on 06-03-2022 Lymphocytes Auto (Unsp spec) [#/Vol] 1.15 10*3/uL 0.83-4.51 [facility] Basophil percentageOrdered B y: Dr. Rodriguez on 06-03-2022 Basophils/100 WBC (Bld) 0.6 % 0-[address] [facility] Chloride [Moles/Vol] 89 mmol/L 98-107 [facility] Eosinophils/100 WBC (Bld) 2.7 % 0-5 [facility] Glucose [Mass/Vol] 121 mg/dL 74-106 [facility] Comment on above: Fasting Glucose resu lt from 100 to 125 mg/dL suggests IMPAIRED HOMEOSTASIS per A.D.A. criteria. Neutrophils (Bld) [#/Vol] 4.9 10*3/uL 2.0-7.7 [facility] Neutrophils/100 WBC (Bld) 72.0 % 47-70 [facility] Potassium [Moles/Vol] 3.4 mmol/L 3.5-5.1 [facility] Sodium [Moles/Vol] 126 mmol/L 136-145 [facility] WBC (Bld) [#/Vol] 6.8 10*3/uL 4.4-11.0 [facility] Blood erythrocytes count (nu mber/volume)Ordered By: Dr. Rodriguez on 06-03-2022 RBC (Bld) [#/Vol] 4.27 10*6/uL 4.6-6.2 [facility] Blood hemoglobin measurement (mass/volume)Ordered By: Dr. Rodriguez on 06-03-2022 Hemoglobin (Bld) [Mass/Vol] 12.6 g/dL 13.0-16.5 [facility] Blood lymphocytes/100 leukoc ytesOrdered By: Dr. Rodriguez on 06-03-2022 Lymphocytes/100 WBC (Bld) 17.0 % 19-41 [facility] Blood monocytes/100 leukocyt esOrdered By: Dr. Rodriguez on 06-03-2022 Monocytes/100 WBC (Bld) 7.4 % 0-[address] [facility] Blood platelet mean volumeOr dered By: Dr. Rodriguez on 06-03-2022 Platelet mean volume (Bld) [Entitic vol] 9.2 fL 6.2-12.0 [facility] Determination of erythrocyte mean corpuscular volume (MCV)Ordered By: Dr. Rodriguez on 06-03-2022 MCV (RBC) [Entitic vol] 88.1 fL 80-[address] [facility] Hematocrit Auto (Bld) [Volum e fraction]Ordered By: Dr. Rodriguez on 06-03-2022 Hematocrit (Bld) [Volume fraction] 37.6 % 40-54 [facility] - Chemistry and C hemistry - challengeOrdered By: Dr. Rodriguez on 06-03-2022 CO2 [Moles/Vol] 30.0 mmol/L 21.0-32.0 [facility] Urea nitrogen/Creatinine [Mass ratio] 13.9 mg/mg 10-20 [facility] - Hematology and Cell countsOrdered By: Dr. Rodriguez on 06-03-2022 Erythrocyte distribution width (RBC) [Entitic vol] 50.8 fL 35.1-43.9 [facility] Erythrocyte distribution width (RBC) [Ratio] 15.9 % 11.6-14.6 [facility] Immature granulocytes/100 WBC (Bld) 0.300 % 0.0-0.9 [facility] Comment on above: IG% - Immature Granu locytes (promyelocytes, myelocytes and metamyelocytes) > 1% indicates that a LEFT SHIFT is Present. MCH (RBC) [Entitic mass] 29.5 pg 27.0-32.0 [facility] Nucleated RBC/100 WBC (Bld) [Ratio] 0 % 0-5 [facility] MCHC Auto (RBC) [Mass/Vol]Or dered By: Dr. Rodriguez on 06-03-2022 MCHC (RBC) [Mass/Vol] 33.5 g/dL 32-36 [facility] No Panel InformationOrdered By: Dr. Rodriguez on 06-03-2022 Estimated Creatinine Clearance Calc 140.51 ml/min [facility] Estimated GFR (MDRD) Amer 162 mL/min >60 [facility] Comment on above: GFR Calc Estimated GFR (MDRD) Non-Af Amer 134 mL/min >60 [facility] Comment on above: Non- GFR Calc Platelets bldOrdered By: Dr. Rodriguez on 06-03-2022 Platelets (Bld) [#/Vol] 251 10*3/uL 150-450 [facility] Serum or plasma calcium rufus urement (mass/volume)Ordered By: Dr. Rodriguez on 06-03-2022 Calcium [Mass/Vol] 8.3 mg/dL 8.5-10.1 [facility] Serum or plasma creatinine m easurement (mass/volume)Ordered By: Dr. Rodriguez on 06-03-2022 Creatinine [Mass/Vol] 0.65 mg/dL 0.70-1.30 [facility] Comment on above: The validity of the calculated GFR & GFRAA in patients over 70 years has not been determined. Clinical correlation is essential. Serum or plasma urea nitroge n measurement (mass/volume)Ordered By: Dr. Rodriguez on 06-03-2022 Urea nitrogen [Mass/Vol] 9 mg/dL 7-18 [facility] Thin prep Papanicolaou smear with manual screeningOrdered By: Dr. Rodriguez on 06-03-2022 Thin prep Papanicolaou smear with manual screening 7 5-15 [facility] Absolute lymphocyte countOrd ered By: Dr. Mclean on 06-02-2022 Lymphocytes Auto (Unsp spec) [#/Vol] 1.18 10*3/uL 0.83-4.51 [facility] Basophil percentageOrdered B y: Dr. Mclean on 06-02-2022 Basophils/100 WBC (Bld) 0.3 % 0-1 [facility] Chloride [Moles/Vol] 87 mmol/L 98-107 [facility] Eosinophils/100 WBC (Bld) 3.2 % 0-5 [facility] Glucose [Mass/Vol] 120 mg/dL 74-106 [facility] Comment on above: Fasting Glucose resu lt from 100 to 125 mg/dL suggests IMPAIRED HOMEOSTASIS per A.D.A. criteria. Neutrophils (Bld) [#/Vol] 5.0 10*3/uL 2.0-7.7 [facility] Neutrophils/100 WBC (Bld) 70.2 % 47-70 [facility] Potassium [Moles/Vol] 3.2 mmol/L 3.5-5.1 [facility] Sodium [Moles/Vol] 125 mmol/L 136-145 [facility] WBC (Bld) [#/Vol] 7.1 10*3/uL 4.4-11.0 [facility] Blood erythrocytes count (nu mber/volume)Ordered By: Dr. Mclean on 06-02-2022 RBC (Bld) [#/Vol] 4.32 10*6/uL 4.6-6.2 [facility] Blood hemoglobin measurement (mass/volume)Ordered By: Dr. Mclean on 06-02-2022 Hemoglobin (Bld) [Mass/Vol] 12.6 g/dL 13.0-16.5 [facility] Blood lymphocytes/100 leukoc ytesOrdered By: Dr. Mclean on 06-02-2022 Lymphocytes/100 WBC (Bld) 16.6 % 19-41 [facility] Blood monocytes/100 leukocyt esOrdered By: Dr. Mclean on 06-02-2022 Monocytes/100 WBC (Bld) 9.3 % 0-[address] [facility] Blood platelet mean volumeOr dered By: Dr. Mclean on 06-02-2022 Platelet mean volume (Bld) [Entitic vol] 9.7 fL 6.2-12.0 [facility] Determination of erythrocyte mean corpuscular volume (MCV)Ordered By: Dr. Mclean on 06-02-2022 MCV (RBC) [Entitic vol] 88.4 fL 80-[address] [facility] Hematocrit Auto (Bld) [Volum e fraction]Ordered By: Dr. Mclean on 06-02-2022 Hematocrit (Bld) [Volume fraction] 38.2 % 40-54 [facility] - Chemistry and C hemistry - challengeOrdered By: Dr. Mclean on 06-02-2022 CO2 [Moles/Vol] 30.0 mmol/L 21.0-32.0 [facility] Sodium (U) [Moles/Vol] 98 mmol/L Not Establ. [facility] Urea nitrogen/Creatinine [Mass ratio] 11.4 mg/mg 10-20 [facility] - Hematology and Cell countsOrdered By: Dr. Mclean on 06-02-2022 Erythrocyte distribution width (RBC) [Entitic vol] 51.8 fL 35.1-43.9 [facility] Erythrocyte distribution width (RBC) [Ratio] 15.9 % 11.6-14.6 [facility] Immature granulocytes/100 WBC (Bld) 0.400 % 0.0-0.9 [facility] Comment on above: IG% - Immature Granu locytes (promyelocytes, myelocytes and metamyelocytes) > 1% indicates that a LEFT SHIFT is Present. MCH (RBC) [Entitic mass] 29.2 pg 27.0-32.0 [facility] Nucleated RBC/100 WBC (Bld) [Ratio] 0 % 0-5 [facility] MCHC Auto (RBC) [Mass/Vol]Or dered By: Dr. Mclean on 06-02-2022 MCHC (RBC) [Mass/Vol] 33.0 g/dL 32-36 [facility] No Panel InformationOrdered By: Dr. Mclean on 06-02-2022 Estimated GFR (MDRD) Amer 171 mL/min >60 [facility] Comment on above: GFR Calc Estimated GFR (MDRD) Non-Af Amer 141 mL/min >60 [facility] Comment on above: Non- GFR Calc Platelets bldOrdered By: Dr. Mclean on 06-02-2022 Platelets (Bld) [#/Vol] 246 10*3/uL 150-450 [facility] Serum or plasma calcium rufus urement (mass/volume)Ordered By: Dr. Mclean on 06-02-2022 Calcium [Mass/Vol] 8.1 mg/dL 8.5-10.1 [facility] Serum or plasma creatinine m easurement (mass/volume)Ordered By: Dr. Mclean on 06-02-2022 Creatinine [Mass/Vol] 0.62 mg/dL 0.70-1.30 [facility] Comment on above: The validity of the calculated GFR & GFRAA in patients over 70 years has not been determined. Clinical correlation is essential. Serum or plasma urea nitroge n measurement (mass/volume)Ordered By: Dr. Mclean on 06-02-2022 Urea nitrogen [Mass/Vol] 7 mg/dL 7-18 [facility] Thin prep Papanicolaou smear with manual screeningOrdered By: Dr. Mclean on 06-02-2022 Thin prep Papanicolaou smear with manual screening 8 5-15 [facility] Thin prep Papanicolaou smear with manual screening 260 mOsm/KG 275-295 [facility] Urine osmolality measurement Ordered By: Dr. Mclean on 06-02-2022 Osmolality (U) [Osmolality] 415 mOsm/KG >50 [facility] Comment on above: Normal Urine Referen ce Ranges Random: 50 - 1200 mOsm/kg H20 depending on fluid intake Random: >850 mOsm/kg after 12 hour fluid restriction 24 hour: ~300 - 900 mOsm/kg H2O Culture, urineOrdered By: Dr Joselito Mclean on 05-29-2022 Bacteria identified Cx Nom (U) Presumptive E. coli [facility] Basophil percentageOrdered B y: Dr. Ornelas on 05-27-2022 Chloride [Moles/Vol] 85 mmol/L 98-107 [facility] Glucose [Mass/Vol] 121 mg/dL 74-106 [facility] Comment on above: Fasting Glucose resu lt from 100 to 125 mg/dL suggests IMPAIRED HOMEOSTASIS per A.D.A. criteria. Potassium [Moles/Vol] 3.2 mmol/L 3.5-5.1 [facility] Sodium [Moles/Vol] 124 mmol/L 136-145 [facility] WBC (Bld) [#/Vol] 5.6 10*3/uL 4.4-11.0 [facility] Basophil percentageOrdered B y: Dr. Rojas on 05-27-2022 Bilirubin [Mass/Vol] 0.70 mg/dL 0.20-1.00 [facility] Comment on above: For patients on eltr ombopag therapy, use of Dimension [place] TBIL is not recommended. Protein [Mass/Vol] 7.4 g/dL 6.4-8.2 [facility] Blood erythrocytes count (nu mber/volume)Ordered By: Dr. Ornelas on 05-27-2022 RBC (Bld) [#/Vol] 4.28 10*6/uL 4.6-6.2 [facility] Blood hemoglobin measurement (mass/volume)Ordered By: Dr. Ornelas on 05-27-2022 Hemoglobin (Bld) [Mass/Vol] 12.8 g/dL 13.0-16.5 [facility] Blood platelet mean volumeOr dered By: Dr. Ornelas on 05-27-2022 Platelet mean volume (Bld) [Entitic vol] 10.4 fL 6.2-12.0 [facility] Determination of erythrocyte mean corpuscular volume (MCV)Ordered By: Dr. Ornelas on 05-27-2022 MCV (RBC) [Entitic vol] 88.8 fL 80-[address] [facility] Direct bilirubinOrdered By: Dr. Rojas on 05-27-2022 Bilirubin.direct [Mass/Vol] 0.23 mg/dL 0.00-0.30 [facility] Hematocrit Auto (Bld) [Volum e fraction]Ordered By: Dr. Ornelas on 05-27-2022 Hematocrit (Bld) [Volume fraction] 38.0 % 40-54 [facility] INR in Blood by Coagulation assayOrdered By: Dr. Rojas on 05-27-2022 INR Coag (Bld) [Relative time] 1.2 {INR} [facility] - Chemistry and C hemistry - challengeOrdered By: Dr. Ornelas on 05-27-2022 CO2 [Moles/Vol] 31.0 mmol/L 21.0-32.0 [facility] Urea nitrogen/Creatinine [Mass ratio] 8.9 mg/mg 10-20 [facility] - Chemistry and C hemistry - challengeOrdered By: Dr. Rojas on 05-27-2022 ALP [Catalytic activity/Vol] 122 U/L 45-117 [facility] ALT [Catalytic activity/Vol] 32 U/L 16-61 [facility] Globulin (S) [Mass/Vol] 4.3 g/dL 2.2-4.[address] [facility] Laboratory - CoagulationOrde red By: Dr. Rojas on 05-27-2022 aPTT Coag (Bld) [Time] 30.4 s 24.1-36.2 [facility] Coag (PPP) [Time] 14.5 s 11.7-14.9 [facility] - Hematology and Cell countsOrdered By: Dr. Ornelas on 05-27-2022 Erythrocyte distribution width (RBC) [Entitic vol] 53.1 fL 35.1-43.9 [facility] Erythrocyte distribution width (RBC) [Ratio] 16.4 % 11.6-14.6 [facility] MCH (RBC) [Entitic mass] 29.9 pg 27.0-32.0 [facility] MCHC Auto (RBC) [Mass/Vol]Or dered By: Dr. Ornelas on 05-27-2022 MCHC (RBC) [Mass/Vol] 33.7 g/dL 32-36 [facility] No Panel InformationOrdered By: Dr. Ornelas on 05-27-2022 Estimated GFR (MDRD) Amer 129 mL/min >60 [facility] Comment on above: GFR Calc Estimated GFR (MDRD) Non-Af Amer 106 mL/min >60 [facility] Comment on above: Non- GFR Calc Platelets bldOrdered By: Dr. Ornelas on 05-27-2022 Platelets (Bld) [#/Vol] 144 10*3/uL 150-450 [facility] Serum or plasma albumin rufus urement (mass/volume)Ordered By: Dr. Rojas on 05-27-2022 Albumin [Mass/Vol] 3.1 g/dL 3.2-5.0 [facility] Serum or plasma calcium rufus urement (mass/volume)Ordered By: Dr. Ornelas on 05-27-2022 Calcium [Mass/Vol] 7.9 mg/dL 8.5-10.1 [facility] Serum or plasma creatinine m easurement (mass/volume)Ordered By: Dr. Ornelas on 05-27-2022 Creatinine [Mass/Vol] 0.79 mg/dL 0.70-1.30 [facility] Comment on above: The validity of the calculated GFR & GFRAA in patients over 70 years has not been determined. Clinical correlation is essential. Serum or plasma urea nitroge n measurement (mass/volume)Ordered By: Dr. Ornelas on 05-27-2022 Urea nitrogen [Mass/Vol] 7 mg/dL 7-18 [facility] Thin prep Papanicolaou smear with manual screeningOrdered By: Dr. Ornelas on 05-27-2022 Thin prep Papanicolaou smear with manual screening 8 5-15 [facility] Thin prep Papanicolaou smear with manual screeningOrdered By: Dr. Rojas on 05-27-2022 Thin prep Papanicolaou smear with manual screening 57 U/L 15-37 [facility] Basophil percentageon 2021 Chloride [Moles/Vol] 93 mmol/L 98-107 [facility] Work Phone: Glucose [Mass/Vol] 93 mg/dL 74-106 [facility] Work Phone: Potassium [Moles/Vol] 4.6 mmol/L 3.5-5.1 [facility] Work Phone: Sodium [Moles/Vol] 130 mmol/L 136-145 [facility] Work Phone: Laboratory - Chemistry and C hemistry - challengeon 04-13-2022 CO2 [Moles/Vol] 30.0 mmol/L 21.0-32.0 [facility] Work Phone: Urea nitrogen/Creatinine [Mass ratio] 12.5 mg/mg 10-20 [facility] Work Phone: No Panel Informationon 04-13 Estimated GFR (MDRD) Amer 163 mL/min >60 [facility] Work Phone: Comment on above: GFR Calc Estimated GFR (MDRD) Non-Af Amer 135 mL/min >60 [facility] Work Phone: Comment on above: Non- GFR Calc Serum or plasma calcium rufus urement (mass/volume)on 04-13-2022 Calcium [Mass/Vol] 8.0 mg/dL 8.5-10.1 [facility] Work Phone: Serum or plasma creatinine m easurement (mass/volume)on 04-13-2022 Creatinine [Mass/Vol] 0.64 mg/dL 0.70-1.30 [facility] Work Phone: Comment on above: The validity of the calculated GFR & GFRAA in patients over 70 years has not been determined. Clinical correlation is essential. Serum or plasma urea nitroge n measurement (mass/volume)on 04-13-2022 Urea nitrogen [Mass/Vol] 8 mg/dL 7-18 [facility] Work Phone: Thin prep Papanicolaou smear with manual screeningon 04-13-2022 Thin prep Papanicolaou smear with manual screening 7 5-15 [facility] Work Phone: Basophil percentageon 2021 Basophil percentage Comment . [facility] Work Phone: Comment on above: No monoclonality det ected.Performed at: [employer] [address] [id number] Director: Ganga Lyons PhD, Phone: [phone] Albumin Elph [Mass/Vol]on Albumin [Mass/Vol] 3.2 g/dL 2.9-4.4 [facility] Work Phone: Interpretation of serum or p lasma protein pattern by immunofixation (narrative resulton 03-09-2022 Protein Fractions Immunofixation Gadiel [Interp] See comment [facility] Work Phone: Comment on above: Result: Not Observed No Panel Informationon 03-09 Addendum Document Comment . [facility] Work Phone: Comment on above: Protein electrophore sis scan will follow via computer,mail, or [facility] [employer] delivery. Whole Blood Vitamin B1 Level 278.0 nmol/L 66.5-200.0 [facility] Work Phone: Comment on above: Performed at: [employer] [address] [id number] Director: Ganga Lyons PhD, Phone: [phone] at: [employer] [id number] Director: Adair Zaman MD, Phone: [phone] Serum [id number] measu rement by electrophoresison 03-09-2022 Alpha 1 globulin Elph [Mass/Vol] 0.2 g/dL 0.0-0.4 [facility] Work Phone: Alpha 1 globulin Elph [Mass/Vol] 0.9 g/dL 0.4-1.0 [facility] Work Phone: Serum globulin measurement ( mass/volume)on 03-09-2022 Globulin (S) [Mass/Vol] 3.9 g/dL 2.2-3.[address] [facility] Work Phone: Serum or plasma IgA measurem ent (mass/volume)on 03-09-2022 IgA [Mass/Vol] 395 mg/dL 90-386 [facility] Work Phone: Serum or plasma IgG measurem ent (mass/volume)on 03-09-2022 IgG [Mass/Vol] 1332 mg/dL [id number] [facility] Work Phone: Serum or plasma IgM measurem ent (mass/volume)on 03-09-2022 IgM [Mass/Vol] 245 mg/dL 20-172 [facility] Work Phone: Serum or plasma beta globuli n measurement by electrophoresis (mass/volume)on 03-09-2022 Beta globulin Elph [Mass/Vol] 1.2 g/dL 0.7-1.3 [facility] Work Phone: Serum or plasma gamma globul in measurement by electrophoresis (mass/volume)on 03-09-2022 Gamma globulin Elph [Mass/Vol] 1.5 g/dL 0.4-1.8 [facility] Work Phone: Serum or plasma immunoelectr ophoresis interpretation (nominal result)on 03-09-2022 Interpretation IEP [Interp] Comment . [facility] Work Phone: Comment on above: No monoclonality det ected. Thin prep Papanicolaou smear with manual screeningon 03-09-2022 Thin prep Papanicolaou smear with manual screening 0.9 0.7-1.7 [facility] Work Phone: Total protein bloodon 2021 Protein [Mass/Vol] 7.1 g/dL 6.0-8.5 [facility] Work Phone: Basophil percentageon 2021 Bilirubin [Mass/Vol] 0.30 mg/dL 0.20-1.00 [facility] Work Phone: Comment on above: For patients on eltr ombopag therapy, use of Dimension [place] TBIL is not recommended. Chloride [Moles/Vol] 106 mmol/L 98-107 [facility] Work Phone: Glucose [Mass/Vol] 114 mg/dL 74-106 [facility] Work Phone: Comment on above: Fasting Glucose resu lt from 100 to 125 mg/dL suggests IMPAIRED HOMEOSTASIS per A.D.A. criteria. Potassium [Moles/Vol] 4.0 mmol/L 3.5-5.1 [facility] Work Phone: Protein [Mass/Vol] 7.1 g/dL 6.4-8.2 [facility] Work Phone: Sodium [Moles/Vol] 139 mmol/L 136-145 [facility] Work Phone: WBC (Bld) [#/Vol] 3.6 10*3/uL 4.4-11.0 [facility] Work Phone: Blood erythrocytes count (nu mber/volume)on 02-26-2022 RBC (Bld) [#/Vol] 4.51 10*6/uL 4.6-6.2 [facility] Work Phone: Blood hemoglobin measurement (mass/volume)on 02-26-2022 Hemoglobin (Bld) [Mass/Vol] 13.0 g/dL 13.0-16.5 [facility] Work Phone: Blood platelet mean volumeon 02-26-2022 Platelet mean volume (Bld) [Entitic vol] 10.5 fL 6.2-12.0 [facility] Work Phone: Determination of erythrocyte mean corpuscular volume (MCV)on 02-26-2022 MCV (RBC) [Entitic vol] 91.6 fL 80-[address] [facility] Work Phone: Hematocrit Auto (Bld) [Volum e fraction]on 02-26-2022 Hematocrit (Bld) [Volume fraction] 41.3 % 40-54 [facility] Work Phone: Laboratory - Chemistry and C hemistry - challengeon 02-26-2022 ALP [Catalytic activity/Vol] 129 U/L 45-117 [facility] Work Phone: ALT [Catalytic activity/Vol] 18 U/L 16-61 [facility] Work Phone: CO2 [Moles/Vol] 27.0 mmol/L 21.0-32.0 [facility] Work Phone: Cobalamin (Vitamin B12) [Mass/Vol] 453 pg/mL 211-911 [facility] Work Phone: Globulin (S) [Mass/Vol] 4.4 g/dL 2.2-4.[address] [facility] Work Phone: Urea nitrogen/Creatinine [Mass ratio] 12.4 mg/mg 10-20 [facility] Work Phone: Laboratory - Hematology and Cell countson 02-26-2022 Erythrocyte distribution width (RBC) [Entitic vol] 57.4 fL 35.1-43.9 [facility] Work Phone: Erythrocyte distribution width (RBC) [Ratio] 17.0 % 11.6-14.6 [facility] Work Phone: MCH (RBC) [Entitic mass] 28.8 pg 27.0-32.0 [facility] Work Phone: MCHC Auto (RBC) [Mass/Vol]on 02-26-2022 MCHC (RBC) [Mass/Vol] 31.5 g/dL 32-36 [facility] Work Phone: No Panel Informationon 02-26 Estimated GFR (MDRD) Amer 162 mL/min >60 [facility] Work Phone: Comment on above: GFR Calc Estimated GFR (MDRD) Non-Af Amer 134 mL/min >60 [facility] Work Phone: Comment on above: Non- GFR Calc Free Lambda Light Chains, Quant 31.0 mg/L 5.7-26.3 [facility] Work Phone: Thyroid Stimulating Hormone (TSH) 1.98 uIU/mL 0.358-3.74 [facility] Work Phone: Platelets bldon 02-26-2022 Platelets (Bld) [#/Vol] 199 10*3/uL 150-450 [facility] Work Phone: Serum immunoglobulin kappa l ight chains/immunoglobulin lambda light chains mass ratioon 02-26-2022 Immunoglobulin light chains.kappa/Immunoglobu catrina light chains.lambda (S) [Mass ratio] 1.11 0.26-1.65 [facility] Work Phone: Comment on above: Performed at: [facility] [employer] [address] [id number] Director: Ganga Lyons PhD, Phone: [phone] Serum or plasma albumin rufus urement (mass/volume)on 02-26-2022 Albumin [Mass/Vol] 2.7 g/dL 3.2-5.0 [facility] Work Phone: Serum or plasma albumin/glob ulin mass ratioon 02-26-2022 Albumin/Globulin [Mass ratio] 0.6 {ratio} 0.9-2.4 [facility] Work Phone: Serum or plasma calcium rufus urement (mass/volume)on 02-26-2022 Calcium [Mass/Vol] 7.7 mg/dL 8.5-10.1 [facility] Work Phone: Serum or plasma creatinine m easurement (mass/volume)on 02-26-2022 Creatinine [Mass/Vol] 0.65 mg/dL 0.70-1.30 [facility] Work Phone: Comment on above: The validity of the calculated GFR & GFRAA in patients over 70 years has not been determined. Clinical correlation is essential. Serum or plasma folate measu rement (mass/volume)on 02-26-2022 Folate [Mass/Vol] 7.60 ng/mL 3.1-55.4 [facility] Work Phone: Serum or plasma immunoglobul in kappa light chains measurement (mass/volume)on 02-26-2022 Immunoglobulin light chains.kappa [Mass/Vol] 34.5 mg/L 3.3-19.4 [facility] Work Phone: Serum or plasma urea nitroge n measurement (mass/volume)on 02-26-2022 Urea nitrogen [Mass/Vol] 8 mg/dL 7-18 [facility] Work Phone: Thin prep Papanicolaou smear with manual screeningon 02-26-2022 Thin prep Papanicolaou smear with manual screening 20 U/L 15-37 [facility] Work Phone: Thin prep Papanicolaou smear with manual screening 6 5-15 [facility] Work Phone: Whole blood hemoglobin A1c/t otal hemoglobin ratio (mass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 Dr. Chalo Mclean Work Phone: [facility] Work Phone: 02-24-2022 10:11-0400 SaO2% (BldA) [Mass fraction] 96 % Dr. Chalo Mclean Work Phone: [facility] Work Phone: 02-24-2022 10:11-0400 Systolic blood pressure 152 mm[Hg] Dr. Chalo Mclean Work Phone: [facility] Work Phone: Encounters Encounter Date Encounter Type Care Provider Facility Start: 12-23-2024 End: 12-23-[address] Chalo Mclean MD Work Phone: [phone] [place] [address] Work Phone: Start: 12-23-2024 End: 12-23-[address] 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 Chapo Sims DO -[facility] Work Phone: Start: 08-28-2024 Non-patient / Non-visit Dr. Sherley Larsen MD -[facility] Work Phone: Start: 08-26-2024 ambulatory Semaj galvezty:[facility] Start: 08-23-2024 End: 08-23-2024 ambulatory Chalo Chi Vinay Facility:[facility] Start: 08-23-2024 ambulatory Sherley Larsen Facility :[facility] Start: 08-23-2024 End: 08-29-2024 Evaluation and management of inpatient Dr. Chapo Sims DO -[facility] Work Phone: Start: 05-08-2024 End: 05-08-2024 ambulatory Chalo [facility] Facility:[facility] Start: 05-02-2024 End: 05-02-2024 ambulatory [facility] Facility:[facility] Start: 01-16-2024 End: 01-23-2024 ambulatory Ankit Aguilar Facility:[facility] Start: 03-14-2023 End: 03-14-[address] Chalo Mclean Work Phone: [facility] Work Phone: Start: 03-14-2023 End: 03-14-[address] Chalo Mclean Work Phone: [facility]-Pulmonary Services/Neurology Work Phone: Start: 03-08-2023 End: 03-08-[address] Chalo Mclean Work Phone: [facility] Work Phone: Start: 03-08-2023 End: 03-08-[address] Chalo Mclean Work Phone: [facility] Work Phone: Start: 03-03-2023 End: 03-03-[address] Chalo Mclean Work Phone: [facility] Work Phone: Start: 03-03-2023 End: 03-03-[address] Chalo Mclean Work Phone: [facility]-Laboratory, Phy Office [address] [place] [address] Start: 02-13-2023 End: 02-13-[address] Chalo Mclean Work Phone: [facility] Neurology Work Phone: Start: 02-01-2023 End: 02-01-[address] Chalo Mclean Work Phone: [facility]-Laboratory Start: 01-28-2023 Non-patient / Non-visit Dr. Chalo Mclean Work Phone: [facility] Start: 01-27-2023 Non-patient / Non-visit Dr. Chalo Mclean Work Phone: [facility] Start: 01-26-2023 End: 01-28-2023 Evaluation and management of inpatient Dr. Chalo Mclean Work Phone: [facility]-Progressive Care Unit Start: 01-17-2023 End: 01-17-[address] Chalo Mclean Work Phone: [facility] Work Phone: Start: 01-17-2023 End: 01-17-[address] Chalo Mclean Work Phone: [facility]-Laboratory Start: 12-27-2022 End: 12-27-[address] Chalo Mclean Work Phone: [facility] Heart [facility] Start: 12-23-2022 End: 12-23-[address] Chalo Mclean Work Phone: [facility] Work Phone: Start: 12-23-2022 End: 12-23-[address] Chalo Mclean Work Phone: [facility]-Pre-Admission Testing Start: 12-23-2022 End: 12-23-2022 Non-patient / Non-visit Dr. Chalo Mclean Work Phone: [facility] Start: 09-23-2022 End: 09-23-[address] Chalo Mclean Work Phone: [facility]opaedic [facility] Start: 09-16-2022 End: 09-16-[address] Chalo Mclean Work Phone: [facility] Gastroenterology Start: 09-07-2022 End: 09-07-[address] Chalo Mclean Work Phone: [facility] Work Phone: Start: 09-07-2022 End: 09-07-[address] Chalo Mclean Work Phone: [facility]-Laboratory, Phy Office 3rd Flr Start: 08-30-2022 Non-patient / Non-visit Dr. Chalo Mclean Work Phone: [facility] Start: 08-30-2022 End: 08-30-2022 Admission to same day surgery center Dr. Chalo Mclean Work Phone: [facility]-Endoscopy Start: 08-30-2022 End: 08-30-[address] Chalo Mclean Work Phone: [facility] Work Phone: Start: 08-24-2022 End: 08-24-[address] Chalo Mclean Work Phone: [facility] Start: 08-23-2022 End: 08-23-[address] Chalo Mclean Work Phone: [facility] Work Phone: Start: 08-23-2022 End: 08-23-[address] Chalo Mclean Work Phone: [facility]-Laboratory Start: 07-04-2022 End: 07-04-[address] Chalo Mclean Work Phone: [facility] Neurology Start: 06-09-2022 End: 06-09-[address] Chalo Mclean Work Phone: [facility] Work Phone: Start: 06-09-2022 End: 06-09-[address] Chalo Mclean Work Phone: [facility]-Sleep Lab Start: 06-08-2022 End: 06-08-[address] Chalo Mclean Work Phone: [facility]-Laboratory, [facility] Office 3rd Flr Start: 06-03-2022 End: 06-03-2022 Emergency department patient visit Dr. Chalo Mclean Work Phone: [facility]-Emergency Department Start: 06-02-2022 End: 06-02-[address] Chalo Mclean Work Phone: [facility] Work Phone: Start: 06-02-2022 End: 06-02-[address] Chalo Mclean Work Phone: [facility]-Laboratory, y Office 3rd Flr Start: 06-02-2022 End: 06-02-[address] Chalo Mclean Work Phone: [facility] Work Phone: Start: 06-02-2022 End: 06-02-[address] Chalo Mclean Work Phone: [facility]-Radiology, [facility] Start: 05-27-2022 End: 05-27-[address] Chalo Mclean Work Phone: [facility] Work Phone: Start: 05-27-2022 End: 05-27-[address] Chalo Mclean Work Phone: [facility]-Laboratory, y Office 3rd Flr Start: 05-27-2022 End: 05-27-[address] Chalo Mclean Work Phone: [facility]-Pre-Admission Testing Start: 05-27-2022 Non-patient / Non-visit Dr. Chalo Mclean Work Phone: [facility] Start: 05-03-2022 End: 05-03-[address] Chalo Mclean Work Phone: [facility] Start: 04-21-2022 End: 04-21-[address] Chalo Mclean Work Phone: [facility] Work Phone: Start: 04-21-2022 End: 04-21-[address] Chalo Mclean Work Phone: [facility]-Sleep Lab Start: 04-20-2022 Non-patient / Non-visit Dr. Chalo Mclean Work Phone: [facility] Start: 04-20-2022 End: 04-20-[address] Chalo Mclean Work Phone: [facility] Work Phone: Start: 04-20-2022 End: 04-20-[address] Chalo Mclean Work Phone: [facility] Start: 04-13-2022 Non-patient / Non-visit Dr. Chalo Mclean Work Phone: [facility] Start: 04-13-2022 End: 04-13-[address] Chalo Mclean Work Phone: [facility] Work Phone: Start: 04-13-2022 End: 04-13-[address] [facility] Start: 04-08-2022 End: 04-08-[address] [facility] Start: 04-06-2022 Non-patient / Non-visit Dr. Chalo Mclean Work Phone: [facility] Start: 04-06-[address] Chalo macias Work Phone: [facility] Start: 04-01-2022 End: 04-01-[address] [facility] Start: 03-30-2022 Non-patient / Non-visit Dr. Chalo Mclean Work Phone: [facility] Start: 03-30-2022 End: 03-30-[address] Chalo Mclean Work Phone: [facility] Start: 03-30-[address] Chalo macias Work Phone: [facility] Start: 03-29-2022 End: 03-29-[address] Chalo Mclean Work Phone: [facility]-Sleep Lab Start: 03-23-2022 Non-patient / Non-visit Dr. Chalo Mclean Work Phone: [facility] Start: 03-16-2022 Non-patient / Non-visit Dr. Chalo Mclean Work Phone: [facility] Start: 03-16-2022 End: 03-20-[address] Chalo Mclean Work Phone: [facility] Start: 03-16-[address] Chalo macias Work Phone: [facility] Start: 03-11-2022 End: 03-11-[address] Chalo Mclean Work Phone: [facility]-Laboratory, Specimen Start: 03-09-2022 End: 03-09-[address] Chalo Mclean Work Phone: [facility]-Laboratory Start: 02-26-2022 End: 02-26-[address] Chalo Mclean Work Phone: [facility]-Laboratory Start: 02-24-2022 End: 02-24-[address] Chalo Mclean Work Phone: [facility] Neurology Procedures Date Procedure Procedure Detail Performing Clinician Start: 12-23-2024 Assay of prostate specific antigen total Dr. Chalo Mclean MD Work Phone: Comment on above: This test was performed using the [employer] tPSA method. Measured values of a patient sample can vary depending on the testing procedure used. PSA values determined on patient samples by different testing procedures cannot be used interchangeably. If there is a change in PSA assays while monitoring therapy, sequential testing should be performed to confirm baseline values. Start: 08-29-[address] Chalo macias MD Work Phone: Start: 08-29-2024 Measurement of renal function Dr. Chalo thornton MD Work Phone: Comment on above: GFR Calc Start: 08-27-[address] Chalo Mclean MD Work Phone: Start: 08-23-2024 CT angiography of chest with contrast Dr. Chalo Mclean MD Work Phone: Start: 08-23-2024 Bacteria identified in Blood by Culture Dr. Chalo Mclean MD Work Phone: Start: 08-23-[address] Chalo Mclean MD Work Phone: Start: 08-23-2024 SARS-CoV-2, Influenza & RSV (PCR) Dr. Saqib Mclean MD Work Phone: Start: 08-23-[address] Chalo Mclean MD Work Phone: Start: 08-23-2024 Urnls dip stick/tablet reagent auto microscopy Dr. Chalo Mclean MD Work Phone: Start: 08-23-2024 Plain chest X-ray Dr. Chalo Mclean MD Work Phone: Start: 01-26-2023 SARS-CoV-2 & FLU Antigen (Rapid) Dr. Chalo Mclean Work Phone: Start: 01-26-2023 Plain chest X-ray Dr. Chalo Mclean Work Phone: Start: 09-23-2022 Plain X-ray of shoulder Dr. Chalo Mclean Work Phone: Start: 08-30-[address] Chalo Mclean Work Phone: Start: 06-02-[address] Chalo Mclean Work Phone: Start: 05-27-2022 Plain chest X-ray Dr. Chalo Mclean Work Phone: Start: 02-26-2022 X-ray of lumbar spine, two or three views Dr. Chalo Mclean Work Phone: Urine culture Dr. Chalo Mclean Work Phone: Urine culture Dr. Chalo Mclean Work Phone: Urine culture Dr. Chalo Mclean Work Phone: Plan of Treatment Date Care Activity Detail Author Start: 12-13-2024 Patient referral [facility] Work Phone: Start: 12-13-2024 Evaluation of diagnostic study results [facility] Start: 08-29-2024 Patient discharge [facility] Start: 08-27-2024 Wound care [facility] Start: 08-26-2024 Contact precautions [facility] Start: 08-25-2024 Inhalation therapy procedure [facility] Start: 08-24-2024 Care planning and problem solving actions [facility] Start: 08-23-2024 End: 08-24-2024 [facility] Start: 08-23-2024 Care planning and problem solving actions [facility] Start: 08-23-2024 Following clinical pathway protocol [facility] Start: 08-23-2024 Assessment of risk of venous thromboembolism [facility] Start: 08-23-2024 Consultation for treatment [facility] Start: 08-23-2024 Insertion of catheter into peripheral vein [facility] Start: 08-23-2024 Measuring intake and output [facility] Start: 08-23-2024 Notification of physician [facility] Start: 08-23-2024 Oxygen therapy [facility] Start: 08-23-2024 Providing care according to standard [facility] Start: 08-23-2024 Provision of activity privileges [facility] Start: 08-23-2024 Referral to occupational therapist [facility] Start: 08-23-2024 Referral to service [facility] Start: 08-23-2024 Admission procedure [facility] Start: 08-23-2024 Patient referral to dietitian [facility] Start: 08-23-2024 [facility] Start: 01-31-2023 [facility] Start: 01-30-2023 [facility] Start: 01-29-2023 [facility] Start: 01-28-2023 Patient discharge [facility] Start: 01-28-2023 [facility] Start: 01-28-2023 Oxygen therapy [facility] Start: 01-27-2023 Thyroid stimulating hormone measurement [facility] Start: 01-27-2023 [facility] Start: 01-26-2023 Dual pressure spontaneous ventilation support [facility] Start: 01-26-2023 Blood chemistry [facility] Start: 01-26-2023 Continuous pulse oximetry [facility] Start: 01-26-2023 Blood chemistry [facility] Start: 01-26-2023 Blood chemistry [facility] Start: 01-26-2023 Following clinical pathway protocol [facility] Start: 01-26-2023 Assessment of risk of venous thromboembolism [facility] Start: 01-26-2023 Creatinine [Mass/volume] in Urine collected for unspecified duration [facility] Start: 01-26-2023 Electrolytes measurement, urine [facility] Start: 01-26-2023 Insertion of catheter into peripheral vein [facility] Start: 01-26-2023 Measuring intake and output [facility] Start: 01-26-2023 Osmolality of Urine [facility] Start: 01-26-2023 Providing care according to standard [facility] Start: 01-26-2023 Referral to occupational therapist [facility] Start: 01-26-2023 Referral to service [facility] Start: 01-26-2023 Urea nitrogen measurement, urine [facility] Start: 01-26-[address] [facility] Start: 01-26-2023 [facility] Start: 01-26-2023 Blood chemistry [facility] Start: 01-26-2023 Verification routine [facility] Start: 01-26-2023 Admission procedure [facility] Start: 01-26-2023 End: 01-27-2023 [facility] Start: 01-26-2023 Patient referral to dietitian [facility] Start: 09-07-2022 Assay of prostate specific antigen total ASSAY OF PSA TOTAL [facility] Start: 08-30-2022 Egd insert guide wire dilator passage esophagus EGD GUIDE WIRE INSERTION [facility] Start: 08-30-2022 Egd transoral biopsy single/multiple EGD BIOPSY SINGLE/MULTIPLE [facility] Start: 08-30-2022 Patient discharge [facility] Start: 06-03-2022 [facility] Start: 06-02-2022 Assay of osmolality blood ASSAY OF BLOOD OSMOLALITY [facility] Start: 06-02-2022 Assay of osmolality urine ASSAY OF URINE OSMOLALITY [facility] Start: 06-02-2022 Assay of urine sodium ASSAY OF URINE SODIUM [facility] Start: 06-02-2022 Basic metabolic panel calcium total METABOLIC PANEL TOTAL CA [facility] Start: 06-02-2022 Blood count complete auto&auto difrntl wbc COMPLETE CBC W/AUTO DIFF WBC [facility] Start: 06-02-2022 Collection venous blood venipuncture ROUTINE VENIPUNCTURE [facility] Start: 06-02-2022 Radiologic exam esophagus single contrast study X-RAY XM ESOPHAGUS [id number] [facility] Start: 04-13-2022 Echo tthrc r-t 2d w/wom-mode compl spec&colr d TTE W/DOPPLER COMPLETE [facility] Work Phone: 24 Hour ECG [facility] Alanine aminotransfe rase [Enzymatic activity/volume] in Serum or Plasma [facility] Alanine aminotransfe rase [Enzymatic activity/volume] in Serum or Plasma [facility] Alanine aminotransfe rase [Enzymatic activity/volume] in Serum or Plasma [facility] Alanine aminotransfe rase [Enzymatic activity/volume] in Serum or Plasma [facility] Alanine aminotransfe rase [Enzymatic activity/volume] in Serum or Plasma [facility] Albumin [Mass/volume ] in Serum or Plasma [facility] Albumin [Mass/volume ] in Serum or Plasma [facility] Albumin [Mass/volume ] in Serum or Plasma [facility] Albumin [Mass/volume ] in Serum or Plasma [facility] Albumin [Mass/volume ] in Serum or Plasma [facility] Alkaline phosphatase [Enzymatic activity/volume] in Serum or Plasma [facility] Alkaline phosphatase [Enzymatic activity/volume] in Serum or Plasma [facility] Alkaline phosphatase [Enzymatic activity/volume] in Serum or Plasma [facility] Alkaline phosphatase [Enzymatic activity/volume] in Serum or Plasma [facility] Alkaline phosphatase [Enzymatic activity/volume] in Serum or Plasma [facility] Anion gap measurement [facility] Anion gap measurement [facility] Anion gap measurement [facility] Anion gap measurement [facility] Anion gap measurement [facility] Anion gap measurement [facility] Anion gap measurement [facility] Anion gap measurement [facility] Anion gap measurement [facility] Ankle brachial press ure index [facility] Work Phone: Aspartate aminotrans ferase [Enzymatic activity/volume] in Serum or Plasma [facility] Aspartate aminotrans ferase [Enzymatic activity/volume] in Serum or Plasma [facility] Aspartate aminotrans ferase [Enzymatic activity/volume] in Serum or Plasma [facility] Aspartate aminotrans ferase [Enzymatic activity/volume] in Serum or Plasma [facility] Aspartate aminotrans ferase [Enzymatic activity/volume] in Serum or Plasma [facility] Bilirubin, total measurement [facility] Bilirubin, total measurement [facility] Bilirubin, total measurement [facility] Bilirubin, total measurement [facility] Bilirubin, total measurement [facility] Blood chemistry [facility] Work Phone: BUN/Creatinine ratio [facility] BUN/Creatinine ratio [facility] BUN/Creatinine ratio [facility] BUN/Creatinine ratio [facility] BUN/Creatinine ratio [facility] BUN/Creatinine ratio [facility] BUN/Creatinine ratio [facility] BUN/Creatinine ratio [facility] BUN/Creatinine ratio [facility] Calcium [Mass/volume ] in Serum or Plasma [facility] Calcium [Mass/volume ] in Serum or Plasma [facility] Calcium [Mass/volume ] in Serum or Plasma [facility] Calcium [Mass/volume ] in Serum or Plasma [facility] Calcium [Mass/volume ] in Serum or Plasma [facility] Calcium [Mass/volume ] in Serum or Plasma [facility] Calcium [Mass/volume ] in Serum or Plasma [facility] Calcium [Mass/volume ] in Serum or Plasma [facility] Calcium [Mass/volume ] in Serum or Plasma [facility] Carbon dioxide, tota l [Moles/volume] in Serum or Plasma [facility] Carbon dioxide, tota l [Moles/volume] in Serum or Plasma [facility] Carbon dioxide, tota l [Moles/volume] in Serum or Plasma [facility] Carbon dioxide, tota l [Moles/volume] in Serum or Plasma [facility] Carbon dioxide, tota l [Moles/volume] in Serum or Plasma [facility] Carbon dioxide, tota l [Moles/volume] in Serum or Plasma [facility] Carbon dioxide, tota l [Moles/volume] in Serum or Plasma [facility] Carbon dioxide, tota l [Moles/volume] in Serum or Plasma [facility] Carbon dioxide, tota l [Moles/volume] in Serum or Plasma [facility] Chloride [Moles/volu me] in Serum or Plasma [facility] Chloride [Moles/volu me] in Serum or Plasma [facility] Chloride [Moles/volu me] in Serum or Plasma [facility] Chloride [Moles/volu me] in Serum or Plasma [facility] Chloride [Moles/volu me] in Serum or Plasma [facility] Chloride [Moles/volu me] in Serum or Plasma [facility] Chloride [Moles/volu me] in Serum or Plasma [facility] Chloride [Moles/volu me] in Serum or Plasma [facility] Chloride [Moles/volu me] in Serum or Plasma [facility] Complete blood count [facility] Work Phone: Complete blood count [facility] Creatinine [Moles/vo lume] in Serum or Plasma [facility] Creatinine [Moles/vo lume] in Serum or Plasma [facility] Creatinine [Moles/vo lume] in Serum or Plasma [facility] Creatinine [Moles/vo lume] in Serum or Plasma [facility] Creatinine [Moles/vo lume] in Serum or Plasma [facility] Creatinine [Moles/vo lume] in Serum or Plasma [facility] Creatinine [Moles/vo lume] in Serum or Plasma [facility] Creatinine [Moles/vo lume] in Serum or Plasma [facility] Creatinine [Moles/vo lume] in Serum or Plasma [facility] Glucose [Mass/volume ] in Serum or Plasma [facility] Glucose [Mass/volume ] in Serum or Plasma [facility] Glucose [Mass/volume ] in Serum or Plasma [facility] Glucose [Mass/volume ] in Serum or Plasma [facility] Glucose [Mass/volume ] in Serum or Plasma [facility] Glucose [Mass/volume ] in Serum or Plasma [facility] Glucose [Mass/volume ] in Serum or Plasma [facility] Glucose [Mass/volume ] in Serum or Plasma [facility] Glucose [Mass/volume ] in Serum or Plasma [facility] Hematocrit [Volume Fraction] of Blood [facility] Hematocrit [Volume Fraction] of Blood [facility] Hematocrit [Volume Fraction] of Blood [facility] Hematocrit [Volume Fraction] of Blood [facility] Hematocrit [Volume Fraction] of Blood [facility] Hemoglobin [Mass/vol ume] in Blood [facility] Hemoglobin [Mass/vol ume] in Blood [facility] Hemoglobin [Mass/vol ume] in Blood [facility] Hemoglobin [Mass/vol ume] in Blood [facility] Hemoglobin [Mass/vol ume] in Blood [facility] Leukocytes [#/volume ] in Blood [facility] Leukocytes [#/volume ] in Blood [facility] Leukocytes [#/volume ] in Blood [facility] Leukocytes [#/volume ] in Blood [facility] Leukocytes [#/volume ] in Blood [facility] Magnesium [Mass/volu me] in Serum or Plasma [facility] Mean corpuscular hem oglobin concentration determination [facility] Mean corpuscular hem oglobin concentration determination [facility] Mean corpuscular hem oglobin concentration determination [facility] Mean corpuscular hem oglobin concentration determination [facility] Mean corpuscular hem oglobin concentration determination [facility] Mean corpuscular hem oglobin determination [facility] Mean corpuscular hem oglobin determination [facility] Mean corpuscular hem oglobin determination [facility] Mean corpuscular hem oglobin determination [facility] Mean corpuscular hem oglobin determination [facility] Measurement of renal function [facility] Measurement of renal function [facility] Measurement of renal function [facility] Measurement of renal function [facility] Measurement of renal function [facility] Measurement of renal function [facility] Measurement of renal function [facility] Measurement of renal function [facility] Measurement of renal function [facility] Measurement of substance [facility] Work Phone: Measurement of substance [facility] Neutrophil count [facility] Neutrophil count [facility] Neutrophil count [facility] Neutrophil count [facility] Neutrophil count [facility] Neutrophil percent differential count [facility] Neutrophil percent differential count [facility] Neutrophil percent differential count [facility] Neutrophil percent differential count [facility] Neutrophil percent differential count [facility] Patient Education [facility] Work Phone: Patient referral [facility] Work Phone: Platelets [#/volume] in Blood [facility] Platelets [#/volume] in Blood [facility] Platelets [#/volume] in Blood [facility] Platelets [#/volume] in Blood [facility] Platelets [#/volume] in Blood [facility] Polysomnography [facility] Work Phone: Potassium [Moles/vol ume] in Serum or Plasma [facility] Potassium [Moles/vol ume] in Serum or Plasma [facility] Potassium [Moles/vol ume] in Serum or Plasma [facility] Potassium [Moles/vol ume] in Serum or Plasma [facility] Potassium [Moles/vol ume] in Serum or Plasma [facility] Potassium [Moles/vol ume] in Serum or Plasma [facility] Potassium [Moles/vol ume] in Serum or Plasma [facility] Potassium [Moles/vol ume] in Serum or Plasma [facility] Potassium [Moles/vol ume] in Serum or Plasma [facility] Red blood cell count [facility] Red blood cell count [facility] Red blood cell count [facility] Red blood cell count [facility] Red blood cell count [facility] Red cell distributio n width determination [facility] Red cell distributio n width determination [facility] Red cell distributio n width determination [facility] Red cell distributio n width determination [facility] Red cell distributio n width determination [facility] Sodium [Moles/volume ] in Serum or Plasma [facility] Work Phone: Sodium [Moles/volume ] in Serum or Plasma [facility] Sodium [Moles/volume ] in Serum or Plasma [facility] Sodium [Moles/volume ] in Serum or Plasma [facility] Sodium [Moles/volume ] in Serum or Plasma [facility] Sodium [Moles/volume ] in Serum or Plasma [facility] Sodium [Moles/volume ] in Serum or Plasma [facility] Sodium [Moles/volume ] in Serum or Plasma [facility] Sodium [Moles/volume ] in Serum or Plasma [facility] Sodium [Moles/volume ] in Serum or Plasma [facility] Sodium [Moles/volume ] in Serum or Plasma [facility] Total protein measurement [facility] Total protein measurement [facility] Total protein measurement [facility] Total protein measurement [facility] Total protein measurement [facility] Urea nitrogen [Mass/ volume] in Serum or Plasma [facility] Urea nitrogen [Mass/ volume] in Serum or Plasma [facility] Urea nitrogen [Mass/ volume] in Serum or Plasma [facility] Urea nitrogen [Mass/ volume] in Serum or Plasma [facility] Urea nitrogen [Mass/ volume] in Serum or Plasma [facility] Urea nitrogen [Mass/ volume] in Serum or Plasma [facility] Urea nitrogen [Mass/ volume] in Serum or Plasma [facility] Urea nitrogen [Mass/ volume] in Serum or Plasma [facility] Urea nitrogen [Mass/ volume] in Serum or Plasma [facility] Work Phone: [facility] Immunizations Immunization Date Immunization Notes Care Provider Fa cili 08-25-2020 pneumococcal polysaccharide vaccine, [address] Chalo Mclean MD Work Phone: [facility] Payers Date Payer Category Payer Medicaid [id number] 2024 Self-pay [id number] 1960 Unknown [id number] 2.16.8 [id number] 1960 Unknown [id number] 2.16.8 [id number] Unknown [id number] Unknown [id number] 2.16.8 [id number] Unknown [id number] 2.16.8 40.1.408450.3.579.2.462 Unknown [id number] 2.16.8 40.1.862990.3.579.2.462 Unknown [id number] 2.16.8 40.1.042116.3.579.2.462 Unknown [id number] 2.16.8 40.1.141731.3.579.2.462 Unknown [id number] 2.16.8 40.1.359964.3.579.2.462 Unknown [id number] 2.16.8 40.1.668687.3.579.2.462 Unknown [id number] 2.16.8 40.1.365659.3.579.2.462 Unknown [id number] 2.16.8 40.1.908147.3.579.2.462 Unknown [id number] 2.16.8 40.1.675517.3.579.2.462 Unknown [id number] 2.16.8 40.1.449421.3.579.2.462 Unknown [id number] 2.16.8 40.1.388380.3.579.2.462 Unknown [id number] 2.16.8 40.1.047544.3.579.2.462 Unknown [id number] 2.16.8 40.1.498944.3.579.2.462 Unknown [id number] 2.16.8 40.1.897439.3.579.2.462 Unknown [id number] 2.16.8 40.1.539035.3.579.2.462 Unknown [id number] 2.16.8 40.1.170098.3.579.2.462 Unknown [id number] 2.16.8 40.1.830035.3.579.2.462 Unknown [id number] 2.16.8 40.1.531630.3.579.2.462 Unknown [id number] 2.16.8 40.1.479147.3.579.2.462 Unknown [id number] 2.16.8 40.1.830374.3.579.2.462 Unknown [id number] 2.16.8 40.1.688766.3.579.2.462 Unknown [id number] 2.16.8 40.1.291703.3.579.2.462 Social History Date Type Detail Facility Start: 02-24-2022 End: 03-08-2023 Tobacco smoking status ORIS Unknown if ever smoked [facility] Start: 01-22-2020 Occasional [facility] Start: 09-16-2018 None [facility] Start: 01-22-2020 Alone [facility] Start: 05-28-2018 Cigarettes [facility] Start: 1960 Sex Assigned At Male [facility] Start: 08-24-2024 [facility] Goals Date Patient Goal Desired Activity /State Functional Status Date Assessment Result Facility 08-29-2024 Functional status Bedrest [facility] Work Phone: 01-28-2023 Functional status Chair [facility] Work Phone: Mental Status Date Assessment Result Facility 08-29-2024 Cognitive function Voice/Name [facility] Work Phone: 01-28-2023 Cognitive function Voice/Name [facility] Work Phone: 01-26-2023 Cognitive function Level Of Cons ciousness Awake;Alert;Appropriate;Follow s Commands [facility] Work Phone: 12-23-2022 Cognitive function Awake;Alert;Appropriat e [facility] Work Phone: 08-30-2022 Cognitive function Voice/Name [facility] Work Phone: 06-03-2022 Cognitive function Voice/Name [facility] Work Phone: Clinical Notes 01-23-2024 to 08-29-2024 Note Date & Type Note Facility 08-29-[address] [facility] 08-23-2024 Evaluation note Diagnosis Onset Date Resolution Debility acute August 23 1:21pm Paroxysmal atrial flutter chronic August 23 1:21pm Adult failure to thrive inactive anuary 2024 1:21pm Candidal skin infection inactive [facility] 2024 1:21pm Complicated urinary tract infection inactive August 23 1:21pm Dehydration inactive August 23, 2024 1:21pm Generalized weakness inactive [facility] 2024 1:21pm Unable to ambulate inactive [facility] 2024 1:21pm Cardiomyopathy chronic November 9:05am Essential hypertension chronic Ap 2024 9:05am Paroxysmal atrial fibrillation chronic December 13, 2024 9:05am [facility] Work Phone: 1(293) 307[facility]3906[facility]04-20[facility] Onset Date Resolution Status Absent pedal pulses acute Low back pain chronic Parasomnia chronic Polyneuropathy chronic [facility] Work Phone: Evaluation note* Diagnosis Onset Date Resolution Status Absent pedal pulses acute Low back pain chronic Parasomnia chronic Polyneuropathy chronic Decreased pedal pulses acute Edema of both lower extremities acute Ulcer of right lower extremity acute [facility] Work Phone: Evaluation note* Diagnosis Onset Date Resolution Status Absent pedal pulses acute Low back pain chronic Parasomnia chronic Polyneuropathy chronic Decreased pedal pulses acute Ulcer of right lower extremity acute Edema of both lower extremities chronic Decreased pedal pulses acute Ulcer of right lower extremity acute Edema of both lower extremities chronic Cardiomyopathy chronic Edema of both lower extremities chronic Essential hypertension chron ic Paroxysmal atrial fibrillation chronic [facility] Work Phone: Evaluation note* Diagnosis Onset Date Resolution Status Absent pedal pulses acute Low back pain chronic Parasomnia chronic Polyneuropathy chronic Decreased pedal pulses acute Ulcer of right lower extremity acute Edema of both lower extremities chronic Cardiomyopathy chronic Edema of both lower extremities chronic Essential hypertension chron ic Paroxysmal atrial fibrillation chronic Decreased pedal pulses acute Ulcer of right lower extremity acute Venous (peripheral) insufficiency acute Edema of both lower extremities chronic Morbid obesity acute DARLIN (obstructive sleep apnea) acute Polyneuropathy chronic [facility] Work Phone: Evaluation note* Diagnosis Onset Date Resolution Status Absent pedal pulses acute Low back pain chronic Parasomnia chronic Polyneuropathy chronic Decreased pedal pulses acute Ulcer of right lower extremity acute Edema of both lower extremities chronic Cardiomyopathy chronic Edema of both lower extremities chronic Essential hypertension chron ic Paroxysmal atrial fibrillation chronic Morbid obesity acute DARLIN (obstructive sleep apnea) acute Polyneuropathy chronic Decreased pedal pulses acute Ulcer of right lower extremity acute Venous (peripheral) insufficiency acute Edema of both lower extremities chronic [facility] Work Phone: Evaluation note* Diagnosis Onset Date Resolution Status Absent pedal pulses acute Low back pain chronic Parasomnia chronic Polyneuropathy chronic Decreased pedal pulses acute Ulcer of right lower extremity acute Edema of both lower extremities chronic Cardiomyopathy chronic Edema of both lower extremities chronic Essential hypertension chron ic Paroxysmal atrial fibrillation chronic Morbid obesity acute DARLIN (obstructive sleep apnea) acute Polyneuropathy chronic Decreased pedal pulses acute Ulcer of right lower extremity acute Venous (peripheral) insufficiency acute Edema of both lower extremities chronic Ulcer of extremity due to chronic venous insufficiency chronic [facility] Work Phone: Evaluation note* Diagnosis Onset Date Resolution Status Ulcer of extremity due to chronic venous insufficiency chronic Polyneuropathy chronic Dysphagia acute Gastric reflux acute [facility] Work Phone: Evaluation note* Diagnosis Onset Date Resolution Status Polyneuropathy chronic Dysphagia acute Gastric reflux acute [facility] Work Phone: Evaluation note* Diagnosis Onset Date Resolution Status Polyneuropathy chronic Dysphagia acute Gastric reflux acute Esophageal stenosis acute [facility] Work Phone: Evaluation note* Diagnosis Onset Date Resolution Status Internal impingement of right shoulder acute Right shoulder pain acute Cardiomyopathy chronic Edema of both lower extremities chronic Essential hypertension chron ic Paroxysmal atrial fibrillation chronic [facility] Work Phone: Evaluation note* Diagnosis Onset Date Resolution Status Cardiomyopathy chronic Edema of both lower extremities chronic Essential hypertension chron ic Paroxysmal atrial fibrillation chronic Acute hyponatremia acute Atrial fibrillation acute Weakness acute [facility] Work Phone: Evaluation note* Diagnosis Onset Date Resolution Status Cardiomyopathy chronic Edema of both lower extremities chronic Essential hypertension chron ic Paroxysmal atrial fibrillation chronic Acute hyponatremia acute Atrial fibrillation acute DARLIN (obstructive sleep apnea) acute Weakness acute [facility] Work Phone: Evaluation note* Diagnosis Onset Date Resolution Status Cardiomyopathy chronic Edema of both lower extremities chronic Essential hypertension chron ic Paroxysmal atrial fibrillation chronic Atrial fibrillation acute DARLIN (obstructive sleep apnea) acute Weakness acute Restless legs syndrome acute Polyneuropathy chronic [facility] Work Phone: Evaluation note* Diagnosis Onset Date Resolution Status Cardiomyopathy chronic Edema of both lower extremities chronic Essential hypertension chron ic Paroxysmal atrial fibrillation chronic Atrial fibrillation acute DARLIN (obstructive sleep apnea) acute Weakness acute Restless legs syndrome acute Polyneuropathy chronic Dyspnea on exertion acute Cardiomyopathy chronic Edema of both lower extremities chronic Essential hypertension chron ic Paroxysmal atrial fibrillation chronic [facility] Work Phone: Hospital Discharge instructions Additional Instructions Hold your combination valsartan and hydrochlorothiazide. Take new prescription of valsartan by itself. Finish your antibiotics. Call to be seen by Dr. Mclean next week. I discussed with Dr. Mclean from the ED. Return if any worsening symptoms.[facility] Work Phone: Summary Purpose Family History No Family History Records Found Relationship Condition Age at Onset Recorded Date/T roxanne mother Diabetes mellitus Unknown Disorder of thyroid Unknown father Diabetes mellitus Unknown Cardiac disease Unknown Chronic obstructive pulmonary disease Unk nown Hypertension Unknown Relationship Condition Age at Onset Recorded Date/T roxanne Not Specified Lupus Unknown Arthritis Unknown mother Diabetes mellitus Unknown Disorder of thyroid Unknown father Diabetes mellitus Unknown Cardiac disease Unknown Chronic obstructive pulmonary disease Unk nown Hypertension Unknown Relationship Condition Age at Onset Recorded Date/T roxanne Not Specified Lupus Unknown Arthritis Unknown mother Diabetes mellitus Unknown Disorder of thyroid Unknown father Diabetes mellitus Unknown Cardiac disease Unknown Chronic obstructive pulmonary disease Unk nown Hypertension Unknown Fibrosis of lung Unknown Advance Directives No Advanced Directives Records Found Advance Directive Response Recorded Date/ Time Advance Directives No July 10:55am Living Will No August 09, 021 10:55am Power of Draw In Hand No August 09, 2021 10:55am Advance Directive Response Recorded Date/ Time Advance Directives No July 10:55am Living Will No May 23 10:10am Power of Draw In Hand No May 23 022 10:10am Advance Directive Response Recorded Date/ Time Advance Directives No July 10:55am Living Will No June 03 10:29am Power of Draw In Hand No June 03, 2022 10:29am Advance Directive Response Recorded Date/ Time Advance Directives No July 9:55am Living Will No August 29 9:49am Power of Draw In Hand No August 29 023 9:49am Advance Directive Response Recorded Date/ Time Advance Directives No July 10:55am Living Will No December 23, 2022 11 :15am Power of Draw In Hand No December 23, 2022 11:15am Advance Directive Response Recorded Date/ Time Advance Directives No July 10:55am Living Will No January 26, 2023 1 1:18am Power of Draw In Hand No January 26, 2023 11:18am Advance Directive Response Recorded Date/ Time Name of Medical Power of Draw In Hand Angela Decemberdexter becky January 26, 2023 12:38pm Advance Directives No July 10:55am Living Will No January 26, 2023 1 2:38pm Power of Draw In Hand Yes January 26, 2023 12:38pm Advance Directive Response Recorded Date/ Time Living Will Yes August 23 3:53pm Do you have a Healthcare Power of Draw In Hand? Yes August 23, 2024 3:53pm Name of Medical Power of Draw In Hand Ayesha DecemberAugust 23, 2024 3:53pm Advance Directives No July 10:55am Chief Complaint and Reason for Visit Chief Complaint POLYNEUROPATHY E ORDER URINE SAMPLE DROP OFF wound Reason for Visit Absent pedal pulses Low back pain Parasomnia Polyneuropathy Chief Complaint POLYNEUROPATHY E ORDER URINE SAMPLE DROP OFF wound wound Reason for Visit Absent pedal pulses Low back pain Parasomnia Polyneuropathy Decreased pedal pulses Edema of both lower extremities Ulcer of right lower extremity Chief Complaint POLYNEUROPATHY E ORDER URINE SAMPLE DROP OFF wound wound wound PARASOMNIA wound 6 M FU wound ABSENT DORSALIS PEDAL PULSES BILAT Reason for Visit Absent pedal pulses Low back pain Parasomnia Polyneuropathy Decreased pedal pulses Ulcer of right lower extremity Edema of both lower extremities Decreased pedal pulses Ulcer of right lower extremity Edema of both lower extremities Cardiomyopathy Edema of both lower extremities Essential hypertension Paroxysmal atrial fibrillation Chief Complaint POLYNEUROPATHY E ORDER URINE SAMPLE DROP OFF wound wound wound PARASOMNIA 6 M FU wound ABSENT DORSALIS PEDAL PULSES BILAT wound wound Sleep problems CHF Reason for Visit Absent pedal pulses Low back pain Parasomnia Polyneuropathy Decreased pedal pulses Ulcer of right lower extremity Edema of both lower extremities Cardiomyopathy Edema of both lower extremities Essential hypertension Paroxysmal atrial fibrillation Decreased pedal pulses Ulcer of right lower extremity Venous (peripheral) insufficiency Edema of both lower extremities Morbid obesity DARLIN (obstructive sleep apnea) Polyneuropathy Chief Complaint POLYNEUROPATHY E ORDER URINE SAMPLE DROP OFF wound wound wound PARASOMNIA 6 M FU wound ABSENT DORSALIS PEDAL PULSES BILAT wound Sleep problems CHF wound Reason for Visit Absent pedal pulses Low back pain Parasomnia Polyneuropathy Decreased pedal pulses Ulcer of right lower extremity Edema of both lower extremities Cardiomyopathy Edema of both lower extremities Essential hypertension Paroxysmal atrial fibrillation Morbid obesity DARLIN (obstructive sleep apnea) Polyneuropathy Decreased pedal pulses Ulcer of right lower extremity Venous (peripheral) insufficiency Edema of both lower extremities Chief Complaint POLYNEUROPATHY E ORDER URINE SAMPLE DROP OFF wound wound wound PARASOMNIA 6 M FU wound ABSENT DORSALIS PEDAL PULSES BILAT wound Sleep problems CHF wound wound DARLIN Reason for Visit Absent pedal pulses Low back pain Parasomnia Polyneuropathy Decreased pedal pulses Ulcer of right lower extremity Edema of both lower extremities Cardiomyopathy Edema of both lower extremities Essential hypertension Paroxysmal atrial fibrillation Morbid obesity DARLIN (obstructive sleep apnea) Polyneuropathy Decreased pedal pulses Ulcer of right lower extremity Venous (peripheral) insufficiency Edema of both lower extremities Chief Complaint POLYNEUROPATHY E ORDER URINE SAMPLE DROP OFF wound wound wound PARASOMNIA 6 M FU wound ABSENT DORSALIS PEDAL PULSES BILAT wound Sleep problems CHF wound wound DARLIN VENOUS INSUFFICIENCY Reason for Visit Absent pedal pulses Low back pain Parasomnia Polyneuropathy Decreased pedal pulses Ulcer of right lower extremity Edema of both lower extremities Cardiomyopathy Edema of both lower extremities Essential hypertension Paroxysmal atrial fibrillation Morbid obesity DARLIN (obstructive sleep apnea) Polyneuropathy Decreased pedal pulses Ulcer of right lower extremity Venous (peripheral) insufficiency Edema of both lower extremities Ulcer of extremity due to chronic venous insufficiency Chief Complaint POLYNEUROPATHY E ORDER URINE SAMPLE DROP OFF wound wound wound PARASOMNIA 6 M FU wound ABSENT DORSALIS PEDAL PULSES BILAT wound Sleep problems CHF wound wound DARLIN VENOUS INSUFFICIENCY DYSPHAGIA ABNORMAL LABS Reason for Visit Absent pedal pulses Low back pain Parasomnia Polyneuropathy Decreased pedal pulses Ulcer of right lower extremity Edema of both lower extremities Cardiomyopathy Edema of both lower extremities Essential hypertension Paroxysmal atrial fibrillation Morbid obesity DARLIN (obstructive sleep apnea) Polyneuropathy Decreased pedal pulses Ulcer of right lower extremity Venous (peripheral) insufficiency Edema of both lower extremities Ulcer of extremity due to chronic venous insufficiency Chief Complaint POLYNEUROPATHY E ORDER URINE SAMPLE DROP OFF wound wound wound PARASOMNIA 6 M FU wound ABSENT DORSALIS PEDAL PULSES BILAT wound Sleep problems CHF wound wound DARLIN VENOUS INSUFFICIENCY RT LIGATION SAPHENO FEMORAL JUNCTION ABLATION DYSPHAGIA ABNORMAL LABS DARLIN,AUTOPAP S/U Reason for Visit Absent pedal pulses Low back pain Parasomnia Polyneuropathy Decreased pedal pulses Ulcer of right lower extremity Edema of both lower extremities Cardiomyopathy Edema of both lower extremities Essential hypertension Paroxysmal atrial fibrillation Morbid obesity DARLIN (obstructive sleep apnea) Polyneuropathy Decreased pedal pulses Ulcer of right lower extremity Venous (peripheral) insufficiency Edema of both lower extremities Ulcer of extremity due to chronic venous insufficiency Chief Complaint VENOUS INSUFFICIENCY RT LIGATION SAPHENO FEMORAL JUNCTION ABLATION RT LIGATION SAPHENO FEMORAL JUNCTION ABLATION DYSPHAGIA ABNORMAL LABS DARLIN,AUTOPAP S/U 4 M FU Consult Reason for Visit Ulcer of extremity d ue to chronic venous insufficiency Polyneuropathy Dysphagia Gastric reflux Chief Complaint RT LIGATION SAPHENO FEMORAL JUNCTION ABLATION RT LIGATION SAPHENO FEMORAL JUNCTION ABLATION DYSPHAGIA ABNORMAL LABS DARLIN,AUTOPAP S/U 4 M FU Consult Reason for Visit Polyneuropathy Dysphagia Gastric reflux Chief Complaint RT LIGATION SAPHENO FEMORAL JUNCTION ABLATION RT LIGATION SAPHENO FEMORAL JUNCTION ABLATION DYSPHAGIA ABNORMAL LABS DARILN,AUTOPAP S/U 4 M FU Consult 2 wk f/u Reason for Visit Polyneuropathy Dysphagia Gastric reflux Esophageal stenosis Chief Complaint BILAT SHOULDERS Rm 3 xray PREOP 1 Y FU E-ORDER Reason for Visit Internal impingement of right shoulder Right shoulder pain Cardiomyopathy Edema of both lower extremities Essential hypertension Paroxysmal atrial fibrillation Chief Complaint PREOP 1 Y FU E-ORDER HYPONATREMIA Reason for Visit Cardiomyopathy Edema of both lower extremities Essential hypertension Paroxysmal atrial fibrillation Acute hyponatremia Atrial fibrillation Weakness Chief Complaint PREOP 1 Y FU E-ORDER HYPONATREMIA HYPONATREMIA HYPONATREMIA E-ORDER Reason for Visit Cardiomyopathy Edema of both lower extremities Essential hypertension Paroxysmal atrial fibrillation Acute hyponatremia Atrial fibrillation DARLIN (obstructive sleep apnea) Weakness Chief Complaint PREOP 1 Y FU E-ORDER HYPONATREMIA HYPONATREMIA HYPONATREMIA E-ORDER 5 M FU Reason for Visit Cardiomyopathy Edema of both lower extremities Essential hypertension Paroxysmal atrial fibrillation Atrial fibrillation DARLIN (obstructive sleep apnea) Weakness Restless legs syndrome Polyneuropathy Chief Complaint PREOP 1 Y FU E-ORDER HYPONATREMIA HYPONATREMIA HYPONATREMIA E-ORDER 5 M FU f/up Reason for Visit Cardiomyopathy Edema of both lower extremities Essential hypertension Paroxysmal atrial fibrillation Atrial fibrillation DARLIN (obstructive sleep apnea) Weakness Restless legs syndrome Polyneuropathy Dyspnea on exertion Cardiomyopathy Edema of both lower extremities Essential hypertension Paroxysmal atrial fibrillation Chief Complaint PREOP 1 Y FU E-ORDER HYPONATREMIA HYPONATREMIA HYPONATREMIA E-ORDER 5 M FU f/up PALPITATIONS, AFIB Reason for Visit Cardiomyopathy Edema of both lower extremities Essential hypertension Paroxysmal atrial fibrillation Atrial fibrillation DARLIN (obstructive sleep apnea) Weakness Restless legs syndrome Polyneuropathy Dyspnea on exertion Cardiomyopathy Edema of both lower extremities Essential hypertension Paroxysmal atrial fibrillation Chief Complaint Admit Date SEPSIS DUE TO UTI, DEHYDRATION August 232024 1:21pm SEPSIS DUE TO UTI, DEHYDRATION August 282024 12:18pm SEPSIS DUE TO UTI, DEHYDRATION August 292024 1:06pm ED 410 AFIB December 13, 2024 9:0 5am Reason for Visit Admit Date Debility August 23, 2024 1: 21pm Paroxysmal atrial flutter August 23, 025 1:21pm Adult failure to thrive August 23 1:21pm Candidal skin infection August 23 1:21pm Complicated urinary tract infection Bibsara jimenez 2024 1:21pm Dehydration August 23, 2024 1: 21pm Generalized weakness August 23, 2024 1 :21pm Unable to ambulate August 23, 2024 1: 21pm Cardiomyopathy December 13, 2024 9:0 5am Essential hypertension December 13, 2024 9:05am Paroxysmal atrial fibrillation November 9:05am Additional Source Comments (unrecognized sect ion and content) No Status Records FoundNo Status Records FoundNo Status Records Found INFORMATION SOURCE (unrecogn ized section and content) DATE CREATED AUTHOR 03/12/2022 [facility] DATE CREATED AUTHOR AUTHOR'S ORGANIZ ATBRADEN 12/02/2024 [facility] DATE CREATED AUTHOR AUTHOR'S ORGANIZ ATION 12/26/2024 [facility] Goals (unrecognized section and content) Goals may be documented in a n alternate sectionGoals may be documented in an alternate sectionGoals may be documented in an alternate sectionGoals may be documented in an alternate sectionGoals may be documented in an alternate sectionGoals may be documented in an alternate sectionGoals may be documented in an alternate sectionGoals may be documented in an alternate sectionGoals may be documented in an alternate sectionGoals may be documented in an alternate sectionGoals may be documented in an alternate sectionGoals may be documented in an alternate sectionGoals may be documented in an alternate sectionGoals may be documented in an alternate section Care Teams (unrecognized sec tion and content) Team Status: Active Member Role Status Dates Dr. Kieran Beard MD Family Provider Active Dr. Chalo Mclean MD Primary Care Provider Active Team Status: Inactive Member Role Status Dates Dr. Chalo Mclean MD Primary Care Provider, Referring Provider Active Dr. Chilo Farris MD Attending Provider Active Team Status: Active Member Role Status Dates Dr. Chalo Mclean MD Primary Care Provider Active Dr. Kavon Gallardo MD Attending Provider Active Dr. Ankit Ornelas MD Referring Provider Active Team Status: Inactive Member Role Status Dates Dr. Chalo Mclean MD Primary Care Provider, Referring Provider Active Karen Wells NP, SIGN ERECTOR-C Attending Provider Active Team Status: Active Member Role Status Dates Dr. Chalo Mclean MD Primary Care Provider, Referring Provider Active Dr. Nelson Munoz DO Attending Provider, Other Prov ider Active Team Status: Inactive Member Role Status Dates Dr. Chalo Mclean MD Primary Care Provider Active Dr. Ankit Ornelas MD Attending Provider, Referring Pro vider Active Team Status: Inactive Member Role Status Dates Dr. Chalo Mclean MD Primary Care Provider, Attending Provider Active Team Status: Inactive Member Role Status Dates Dr. Chalo Mclean MD Primary Care Provi berna, Attending Provider, Referring Provider Active Team Status: Inactive Member Role Status Dates Dr. Chalo Mclean MD Primary Care Provider Active Dr. Saad Rodriguez DO Attending Provider, Emergency Provide r Active Team Status: Inactive Member Role Status Dates Dr. Chalo Mclean MD Primary Care Provider Active Fidelina Pedroza SIGN ERECTOR, SIGN ERECTOR-C Attending Provider Active Team Status: Inactive Member Role Status Dates Dr. Chalo Mclean MD Primary Care Provider Active Dr. Mario León MD Attending Provider, Referring Prov ider Active Team Status: Inactive Member Role Status Dates Dr. Chalo Mclean MD Primary Care Provider, Referring Provider Active Dr. Nelson Munoz DO Attending Provider Active Team Status: Active Member Role Status Dates Dr. Chalo Mclean MD Primary Care Provider, Attending Provider Active Team Status: Inactive Member Role Status Dates Dr. Chalo Mclean MD Primary Care Provider, Referring Provider Active Nabil Eldridge MD Attending Provider Active Team Status: Inactive Member Role Status Dates Dr. Chalo Mclean MD Primary Care Provider Active Dr. Boaz Lopez MD Attending Provider Active Team Status: Inactive Member Role Status Dates Dr. Chalo Mclean MD Primary Care Provider, Referring Provider Active Dr. Renan Bruce MD Active Mitchell Rodrigues SIGN ERECTOR, SIGN ERECTOR-C Attending Provider Active Team Status: Active Member Role Status Dates Dr. Chalo Mclean MD Primary Care Provider Active Dr. Semaj Roberts MD Attending Provider Activ e Dr. Nelson Munoz DO Referring Provider Active Team Status: Inactive Member Role Status Dates Dr. Chalo Mclean MD Primary Care Provider Active Tracy Monet PA, PA Attending Provider, Referr ing Provider Active Team Status: Active Member Role Status Dates Dr. Chalo Mclean MD Primary Care Provider, Referring Provider Active Dr. Nelson Munoz DO Attending Provider Active Team Status: Active Member Role Status Dates Dr. Chalo Mclean MD Primary Care Provider Active Dr. Teofilo Amaya DO Emergency Provider Active Dr. Shobha Gomez MD Admit Provider, Attending Provid er Active Team Status: Active Member Role Status Dates Dr. Chalo Mclean MD Primary Care Provider Active Dr. Teofilo Amaya DO Emergency Provider Active Dr. Shobha Gomez MD Admit Provider, Attending Provid er, Other Provider Active Team Status: Inactive Member Role Status Dates Dr. Chalo Mclean MD Primary Care Provider Active Dr. Teofilo Amaya DO Emergency Provider Active Dr. Shobha Gomez MD Admit Provider, Attending Provid er Active Team Status: Active Member Role Status Dates Dr. Chalo Mclean MD Primary Care Provi berna, Attending Provider, Referring Provider Active Tracy ESTRADA, PA Other Provider Active Team Status: Inactive Member Role Status Dates Dr. Chalo Mclean MD Primary Care Provi berna, Attending Provider, Referring Provider Active Tracy ESTRADA, PA Other Provider Active Team Status: Inactive Member Role Status Dates Dr. Chalo Mclean MD Primary Care Provider, Referring Provider Active Cherelle Nguyen SIGN ERECTOR, SIGN ERECTOR-C Attending Provider Active Team Status: Inactive Member Role Status Dates Dr. Chalo Mclean MD Primary Care Provider Active Cherelle Nguyen SIGN ERECTOR, SIGN ERECTOR-C Attending Provider, Referring P rovider Active Team Status: Inactive Member Role Status Dates Dr. Chalo Mclean MD Primary Care Provider Active Start: August 23, 2024 End: August 29, 2024 Dr. Juan Miguel Courtney MD Emergency Provider Active Start: August 23, 2024 End: August 29, 2024 Dr. Sherley Larsen MD Admit Provider Active St art: August 23, 2024 End: August 29, 2024 Dr. Sherley Larsen MD Other Provider Active St art: August 23, 2024 End: August 29, 2024 Dr. Chapo Sims DO Attending Provider Active Start: August 23, 2024 End: August 29, 2024 Team Status: Active Member Role Status Dates Dr. Chalo Mclean MD Primary Care Provider Active Start: August 28, 2024 Dr. Juan Miguel Courtney MD Emergency Provider Active Start: August 28, 2024 Dr. Sherley Larsen MD Admit Provider Active St art: August 28, 2024 Dr. Sherley Larsen MD Attending Provider Active Start: August 28, 2024 Dr. Sherley Larsen MD Other Provider Active St art: August 28, 2024 Team Status: Active Member Role Status Dates Dr. Chalo Mclean MD Primary Care Provider Active Start: August 29, 2024 Dr. Juan Miguel Courtney MD Emergency Provider Active Start: August 29, 2024 Dr. Sherley Larsen MD Admit Provider Active St art: August 29, 2024 Dr. Sherley Larsen MD Other Provider Active St art: August 29, 2024 Dr. Chapo Sims DO Attending Provider Active Start: August 29, 2024 Dr. Chapo Sims DO Other Provider Active S tart: August 29, 2024 Team Status: Inactive Member Role Status Dates Dr. Chalo Mclean MD Primary Care Provider Active Start: December 13, 2024 End: December 13, 2024 Dr. Chalo Mclean MD Referring Provider Active Start: December 13, 2024 End: December 13, 2024 Cherelle Nguyen SIGN ERECTOR, SIGN ERECTOR-C Attending Provider Active Start: December 13, 2024 End: December 13, 2024 Team Status: Inactive Member Role Status Dates Dr. Chalo Mclean MD Primary Care Provider Active Start: December 23, 2024 End: December 23, 2024 Dr. Chalo Mclean MD Attending Provider Active Start: December 23, 2024 End: December 23, 2024 Dr. Chalo Mclean MD Referring Provider Active Start: December 23, 2024 End: December 23, 2024 FOR RECORDS PERTAINING TO PATIENTS WHO ARE OR HAVE BEEN ENROLLED IN A CHEMICAL DEPENDENCY/SUBSTANCEABUSE PROGRAM, SOME INFORMATION MAY BE OMITTED. This clinical summary was aggregated from multiple sources. Caution should be exercised in using it in the provision of clinical care. This summary normalizes information from multiple sources, and as a consequence, information in this document may materially change the coding, format and clinical context of patient data. In addition, data may be omitted in some cases. CLINICAL DECISIONS SHOULD BE BASED ON THE PRIMARY CLINICAL RECORDS. [employer] provides no warranty or guarantee of the accuracy or completeness of information in this document.
--- OUTSIDE RECORDS SUMMARY | 2025-01-22 22:56 | XMS RPT_ITS | CCD ---
Author Organization [facility] CliniSyil Care Team Providers Care Vba Programmer Name Role Phone Dr. Chalo Mclean Chi Primary Care Provider Dr. Chalo Mclean Chi Referring Provider Dr. Chilo Farris Attending Provider Armand GAS LEAK INSPECTOR, GAS LEAK INSPECTOR-C Linda Newsome Attending Provider Armand GAS LEAK INSPECTOR, GAS LEAK INSPECTOR-C Linda E Other Provider 1([facility] )[phone] Armand GAS LEAK INSPECTOR, GAS LEAK INSPECTOR-C Linda E Referring Provider [phone] Ravi GAS LEAK INSPECTOR, GAS LEAK INSPECTOR-C Mitchell Betancur Attending Provider Kasia GAS LEAK INSPECTOR, GAS LEAK INSPECTOR-C Fidelina Attending Provider [phone] Dr. Renan Bruce Attending Provider Dr. Ankit Ornelas Attending Provider 1([facility])-[phone] Kavon Gallardo Attending Provider 1([facility])[phone] Ankit Ornelas Referring Provider 1([facility])-[phone] Chalo Mclean Chi Primary Care Provider Dr. Chalo Mclean Chi Referring Provider Dr. Ankit Ornelas Attending Provider 1([facility])-[phone] Kavon Gallardo Attending Provider Dr. Ankit Ornelas Referring Provider 1([facility])-[phone] Chilo Farris Attending Provider 1([facility])[phone] Priscilla GAS LEAK INSPECTOR, GAS LEAK INSPECTOR-C Karen Beyer Attending Provider [phone] FriendDr. Damon Attending Provider [phone] Dr. Nelson Munoz Other Provider Vinay, Dr. Chalo Gomez Primary Care Provider Vniay, Dr. Chalo oGmez Referring Provider Vinay, Dr. Chalo oGmez Primary Care Provider Vinay, Dr. Chalo Gomez Referring Provider MD Nabil Eldridge Attending Provider Dr. Boaz Lopez Attending Provider Dr. Semaj Roberts Attending Provider Friend, Dr. Damon Referring Provider Ravi GAS LEAK INSPECTOR, GAS LEAK INSPECTOR-C Mitchell Betancur Attending Provider Vinay, Dr. Chalo Gomez Primary Care Provider Vinay, Dr. Chalo Gomez Referring Provider Dr. Teofilo Amaya Emergency Provider Dr. Shobha Gomez Admit Provider Dr. Shobha Gomez Attending Provider Dr. Shobha Gomez Other Provider Dr. Chilo Farris Attending Provider Patrick GAS LEAK INSPECTOR, GAS LEAK INSPECTOR-C Cherelle Attending Provider MIGUEL BLOOM, JAZMIN Attending Unavailable VINAY BLOOM, DR RAMIREZ Primary Care Unavailable LIZZIE BLAIR-GAS LEAK INSPECTOR, ANNEL Martin Attending Un available ODETTE ESPINOSA MD Primary Care Unava leelee Mclean MD, Dr. Chalo Gomez Primary Care Provider [phone] Roz BLOOM, Dr. Bullard Emergency Provider Suzie BLOOM, Dr. Sherley Puckett Admit Provider Suzie BLOOM, Dr. Sherley Puckett Other Provider [phone] Bethany RIOS, Dr. Cowan Attending Provider [phone] Suzie BLOOM, Dr. Sherley Puckett Attending Provider Bethany RIOS, Dr. Cowan Other Provider Dr. Chalo Mclean MD, Chi Referring Provider [phone] Cherelle Farah Attending Provider [phone] Vinay BLOOM, Dr. Chalo Gomez Attending Provider [phone] Vinay, Chalo Chi Primary Care Unavailable Agyepong, Sunil Consulting Unavailable Agyepong, Sunil Admitting Unavailable Jobrodie Ankit Attending Unavailable Mosteller, Pérez Consulting Unavailable Jopperi, Ankit Consulting Unavailable Koram, Sherley Lavern Attending Unavailable Koram, Sherley Lavern Admitting Unavailable Koram, Sherley Lavern Consulting Unavailable Vinay, Chalo Chi Primary Care Unavailable Vinay, Chalo Chi Primary Care Unavailable John, [place] Attending Unavailable John, [place] Referring Unavailable Pérez Hoang Attending Unavailable Vinay, [...] (20 sources) DULoxetine Drug Allergy 02-24-2022 Other [facility] Comment on above: SERATONIN SYNDROME (1 source) DULoxetine Drug Allergy 12-13-2024 [facility] Repository Medications Current Medications Medication Drug Class(es) [...] tablet by mouth once daily as needed Fibdxey-Edaelofqkyeyi-Mmkbcpjr Discontin ued 1 TABLET PO DAILY NEEDED [...] Ergocalciferol (Vitamin D2) 50,000 UNIT capsule Discontinued 89906 U PO MORALES July 30, 2019 1:00am [...] Interpretation Reference Range Facility Comprehensive Metabolic Prof [facility] 12-25-2024 Albumin [Mass/Vol] 3.6 g/dL Normal 3.4-4.8 [facility] Comment on above: Order Comment: ADD O N CMP COLLECTED 5/5 Performed By: #### L 100.0100, L500.4050, L500.4100, L300.4310, L501.9940, L501.9520, L300.3900 ####[facility] [address] [place], [place], [id number] Albumin/Globulin [Mass ratio] 1.0 {ratio} Normal 0.9-2.4 [facility] Comment on above: Order Comment: ADD O N CMP COLLECTED 5/5 Performed By: #### L 100.0100, L500.4050, L500.4100, L300.4310, L501.9940, L501.9520, L300.3900 ####[facility] [address] [place], [address] ALK PHOS 156 U/L High 40-129 [facility] Comment on above: Order Comment: ADD O N CMP COLLECTED 5/5 Performed By: #### L 100.0100, L500.4050, L500.4100, L300.4310, L501.9940, L501.9520, L300.3900 ####[facility] [address] [place], [address] ALT [Catalytic activity/Vol] 11 U/L Normal <=46 [facility] Comment on above: Order Comment: ADD O N CMP COLLECTED 5/5 Performed By: #### L 100.0100, L500.4050, L500.4100, L300.4310, L501.9940, L501.9520, L300.3900 ####[facility] [address] [place], [address] AST [Catalytic activity/Vol] 22 U/L Normal <=37 [facility] Comment on above: Order Comment: ADD O N CMP COLLECTED 5/5 Performed By: #### L 100.0100, L500.4050, L500.4100, L300.4310, L501.9940, L501.9520, L300.3900 ####[facility] [address] [place], [address] Bilirubin [Mass/Vol] 0.48 mg/dL Normal 0.00-1.30 [facility] Comment on above: Order Comment: ADD O N CMP COLLECTED 5/5 Performed By: #### L 100.0100, L500.4050, L500.4100, L300.4310, L501.9940, L501.9520, L300.3900 ####[facility] [address] [place], [address] BUN/CRE 12.1 RATIO Normal 10-20 [facility] Comment on above: Order Comment: ADD O N CMP COLLECTED 5/5 Performed By: #### L 100.0100, L500.4050, L500.4100, L300.4310, L501.9940, L501.9520, L300.3900 ####[facility] [address] [place], [address] Calcium [Mass/Vol] 8.1 mg/dL Normal 7.6-11.0 [facility] Comment on above: Order Comment: ADD O N CMP COLLECTED 5/5 Performed By: #### L 100.0100, L500.4050, L500.4100, L300.4310, L501.9940, L501.9520, L300.3900 ####[facility] [address] [place], [address] Chloride [Moles/Vol] 97 mmol/L Low 98-108 [facility] Comment on above: Order Comment: ADD O N CMP COLLECTED 5/5 Performed By: #### L 100.0100, L500.4050, L500.4100, L300.4310, L501.9940, L501.9520, L300.3900 ####[facility] [address] [place], [address] CO2 [Moles/Vol] 30.0 mmol/L Normal 21.0-32.0 [facility] Comment on above: Order Comment: ADD O N CMP COLLECTED 5/5 Performed By: #### L 100.0100, L500.4050, L500.4100, L300.4310, L501.9940, L501.9520, L300.3900 ####[facility] [address] [place], [address] Creatinine [Mass/Vol] 0.61 mg/dL Low 0.70-1.20 [facility] Comment on above: Order Comment: ADD O N CMP COLLECTED 5/5 Performed By: #### L 100.0100, L500.4050, L500.4100, L300.4310, L501.9940, L501.9520, L300.3900 ####[facility] [address] [place], [address] GAP 12 Normal 5-15 [facility] Comment on above: Order Comment: ADD O N CMP COLLECTED 5/5 Performed By: #### L 100.0100, L500.4050, L500.4100, L300.4310, L501.9940, L501.9520, L300.3900 ####[facility] [address] [place], [address] GFR/1.73 sq M.predicted among non-blacks MDRD (S/P/Bld) [Vol rate/Area] 108 mL/min/{1.73_m2} Normal >60 [facility] Comment on above: Order Comment: ADD O N CMP COLLECTED 5/5 Result Comment: mL/m in/1.73m2 CKD-EPI Creatinine Equation (2020) Performed By: #### L 100.0100, L500.4050, L500.4100, L300.4310, L501.9940, L501.9520, L300.3900 ####[facility] [address] [place], [address] Globulin (S) [Mass/Vol] 3.7 g/dL Normal 2.2-4.2 [facility] Comment on above: Order Comment: ADD O N CMP COLLECTED 5/5 Performed By: #### L 100.0100, L500.4050, L500.4100, L300.4310, L501.9940, L501.9520, L300.3900 ####[facility] [address] [place], [address] Glucose [Mass/Vol] 116 mg/dL High 70-99 [facility] Comment on above: Order Comment: ADD O N CMP COLLECTED 5/5 Performed By: #### L 100.0100, L500.4050, L500.4100, L300.4310, L501.9940, L501.9520, L300.3900 ####[facility] [address] [place], [address] Potassium [Moles/Vol] 4.2 mmol/L Normal 3.3-5.1 [facility] Comment on above: Order Comment: ADD O N CMP COLLECTED 5/5 Performed By: #### L 100.0100, L500.4050, L500.4100, L300.4310, L501.9940, L501.9520, L300.3900 ####[facility] [address] [place], [address] Sodium [Moles/Vol] 139 mmol/L Normal 133-145 [facility] Comment on above: Order Comment: ADD O N CMP COLLECTED 5/5 Performed By: #### L 100.0100, L500.4050, L500.4100, L300.4310, L501.9940, L501.9520, L300.3900 ####[facility] [address] [place], [address] T PROT 7.3 g/dL Normal 5.9-8.4 [facility] Comment on above: Order Comment: ADD O N CMP COLLECTED 5/5 Performed By: #### L 100.0100, L500.4050, L500.4100, L300.4310, L501.9940, L501.9520, L300.3900 ####[facility] [address] [place], [address] Urea nitrogen [Mass/Vol] 7 mg/dL Normal 4-19 [facility] Comment on above: Order Comment: ADD O N CMP COLLECTED 5/5 Performed By: #### L 100.0100, L500.4050, L500.4100, L300.4310, L501.9940, L501.9520, L300.3900 ####[facility] [address] [place], [address] Absolute lymphocyte countOrd ered By: Chalo Mclean on 12-23-2024 Lymphocytes Auto (Unsp spec) [#/Vol] 1.14 10*3/uL 0.83-4.51 [facility] Absolute neutrophil countOrd ered By: [facility] Neutrophils (Bld) [#/Vol] 6.1 10*3/uL 2.0-7.7 [facility] Activated partial thrombopla stin time (aPTT) in platelet poor plasma by coagulation aOrdered By: Chalo Mclean on 12-23-2024 aPTT Coag (PPP) [Time] 33.9 s 24.1-36.2 [facility] Anion gap in Serum or Plasma Ordered By: Chalo Mclean on 12-23-2024 Anion gap [Moles/Vol] 12 mmol/L 5-15 [facility] Automated lymphocyte count a s percentage of total leukocytesOrdered By: [facility] on 12-23-2024 Lymphocytes/100 WBC Auto (Unsp spec) 14.4 % Low 19-41 [facility] BUN/creatinine ratioOrdered By: [facility] 12-23-[facility] Urea nitrogen/Creatinine [Mass ratio] 12.1 mg/mg 10-20 [facility] Basophil percentageOrdered B y: Chalo Mclean on 12-23-2024 Basophils/100 WBC (Bld) 0.4 % 0-1 [facility] Bilirubin, totalOrdered By: Chalo Vinay on 12-23-2024 Bilirubin [Mass/Vol] 0.48 mg/dL 0.00-1.30 [facility] CBC W/Diff, Automatedon Absolute Lymph 1.14 X10 3/uL Normal 0.83-4.51 [facility] Comment on above: Performed By: #### L 100.0100, L500.4050, L500.4100, L300.4310, L501.9940, L501.9520, L300.3900 ####[facility] [address] [place], [address] Absolute Neut 6.1 X10 3/uL Normal 2.0-7.7 [facility] Comment on above: Performed By: #### L 100.0100, L500.4050, L500.4100, L300.4310, L501.9940, L501.9520, L300.3900 ####[facility] [address] [place], [address] Basophils/100 WBC (Bld) 0.4 % Normal 0-1 [facility] Comment on above: Performed By: #### L 100.0100, L500.4050, L500.4100, L300.4310, L501.9940, L501.9520, L300.3900 ####[facility] [address] [place], [address] Eosinophils/100 WBC (Bld) 2.7 % Normal 0-5 [facility] Comment on above: Performed By: #### L 100.0100, L500.4050, L500.4100, L300.4310, L501.9940, L501.9520, L300.3900 ####[facility] [address] [place], [address] Erythrocyte distribution width (RBC) [Ratio] 15.2 % High 11.6-14.6 [facility] Comment on above: Performed By: #### L 100.0100, L500.4050, L500.4100, L300.4310, L501.9940, L501.9520, L300.3900 ####[facility] [address] [place], [address] Hematocrit (Bld) [Volume fraction] 39.1 % Low 40-54 [facility] Comment on above: Performed By: #### L 100.0100, L500.4050, L500.4100, L300.4310, L501.9940, L501.9520, L300.3900 ####[facility] [address] [place], [address] Hemoglobin (Bld) [Mass/Vol] 12.5 g/dL Low 13.0-16.5 [facility] Comment on above: Performed By: #### L 100.0100, L500.4050, L500.4100, L300.4310, L501.9940, L501.9520, L300.3900 ####[facility] [address] [place], [address] IG% 0.400 Normal 0.0-0.9 [facility] Comment on above: Result Comment: IG% - Immature Granulocytes (promyelocytes, myelocytes andmetamyelocytes) > 1% indicates that a LEFT SHIFT is Present. Performed By: #### L 100.0100, L500.4050, L500.4100, L300.4310, L501.9940, L501.9520, L300.3900 ####[facility] [address] [place], [address] Lymphocytes/100 WBC (Bld) 14.4 % Low 19-41 [facility] Comment on above: Performed By: #### L 100.0100, L500.4050, L500.4100, L300.4310, L501.9940, L501.9520, L300.3900 ####[facility] [address] [place], [address] MCH (RBC) [Entitic mass] 27.6 pg Normal 27.0-32.0 [facility] Comment on above: Performed By: #### L 100.0100, L500.4050, L500.4100, L300.4310, L501.9940, L501.9520, L300.3900 ####[facility] [address] [place], [address] MCHC (RBC) [Mass/Vol] 32.0 g/dL Normal 32-36 [facility] Comment on above: Performed By: #### L 100.0100, L500.4050, L500.4100, L300.4310, L501.9940, L501.9520, L300.3900 ####[facility] [address] [place], [address] MCV (RBC) [Entitic vol] 86.3 fL Normal 80-94 [facility] Comment on above: Performed By: #### L 100.0100, L500.4050, L500.4100, L300.4310, L501.9940, L501.9520, L300.3900 ####[facility] [address] [place], [address] Monocytes/100 WBC (Bld) 5.6 % Normal 0-10 [facility] Comment on above: Performed By: #### L 100.0100, L500.4050, L500.4100, L300.4310, L501.9940, L501.9520, L300.3900 ####[facility] [address] [place], [address] Neutrophils/100 WBC (Bld) 76.5 % High 47-70 [facility] Comment on above: Performed By: #### L 100.0100, L500.4050, L500.4100, L300.4310, L501.9940, L501.9520, L300.3900 ####[facility] [address] [place], [address] Nucleated RBC (Bld) [#/Vol] 0 10*3/uL Normal 0-5 [facility] Comment on above: Performed By: #### L 100.0100, L500.4050, L500.4100, L300.4310, L501.9940, L501.9520, L300.3900 ####[facility] [address] [place], [address] Platelet mean volume (Bld) [Entitic vol] 11.0 fL Normal 6.2-12.0 [facility] Comment on above: Performed By: #### L 100.0100, L500.4050, L500.4100, L300.4310, L501.9940, L501.9520, L300.3900 ####[facility] [address] [place], [address] Platelets (Bld) [#/Vol] 254 10*3/uL Normal 150-450 [facility] Comment on above: Performed By: #### L 100.0100, L500.4050, L500.4100, L300.4310, L501.9940, L501.9520, L300.3900 ####[facility] [address] [place], [address] RBC (Bld) [#/Vol] 4.53 10*6/uL Low 4.6-6.2 [facility] Comment on above: Performed By: #### L 100.0100, L500.4050, L500.4100, L300.4310, L501.9940, L501.9520, L300.3900 ####[facility] [address] [place], [address] RDW SD 48.1 fl High 35.1-43.9 [facility] Comment on above: Performed By: #### L 100.0100, L500.4050, L500.4100, L300.4310, L501.9940, L501.9520, L300.3900 ####[facility] [address] [place], [address] WBC (Bld) [#/Vol] 7.9 10*3/uL Normal 4.4-11.0 [facility] Comment on above: Performed By: #### L 100.0100, L500.4050, L500.4100, L300.4310, L501.9940, L501.9520, L300.3900 ####[facility] [address] [place], [address] Calculated very low density lipoprotein (VLDL) cholesterol measurementOrdered By: Chalo Mclean on 12-23-2024 Calculated very low density lipoprotein (VLDL) cholesterol measurement 16 mg/dL 5-40 [facility] Carbon dioxide, total [Moles /volume] in Central venous bloodOrdered By: Chalo Mclean 12-23-2024 CO2 [Moles/Vol] 30.0 mmol/L 21.0-32.0 [facility] Chloride assayOrdered By: Saqib Mclean on 12-23-2024 Chloride [Moles/Vol] 97 mmol/L Low 98-108 [facility] Eosinophil percentageOrdered By: Chalo Mclean 12-23-2024 Eosinophils/100 WBC (Bld) 2.7 % 0-5 [facility] Erythrocyte distribution wid th ratioOrdered By: Chalo Mclean 12-23-2024 Erythrocyte distribution width (RBC) [Ratio] 15.2 % High 11.6-14.6 [facility] Erythrocyte distribution wid th standard deviationOrdered By: Chalo Mclean 12-23-2024 Erythrocyte distribution width (RBC) [Ratio] 48.1 fl High 35.1-43.9 [facility] Glomerular filtration rate ( GFR) estimation/1.73 sq m using serum, plasma, or whole bOrdered By: Chalo Mclean 12-23-2024 GFR/1.73 sq M.predicted among non-blacks MDRD (S/P/Bld) [Vol rate/Area] 108 mL/min/{1.73_m2} >60 [facility] Comment on above: mL/min/1.73m2 CKD-EP I Creatinine Equation (2020) Hematocrit Auto (Bld) [Volum e fraction]Ordered By: Chalo Mclean 12-23-2024 Hematocrit (Bld) [Volume fraction] 39.1 % Low 40-54 [facility] Hemoglobin measurementOrdere d By: Chalo Mclean on 12-23-2024 Hemoglobin (Bld) [Mass/Vol] 12.5 g/dL Low 13.0-16.5 [facility] Immature granulocytes/100 WB C Auto (Bld)Ordered By: Chalo Mclean on 12-23-2024 Immature granulocytes/100 WBC (Bld) 0.400 % 0.0-0.9 [facility] Comment on above: IG% - Immature Granu locytes (promyelocytes, myelocytes and metamyelocytes) > 1% indicates that a LEFT SHIFT is Present. International normalized rat io (INR) calculationOrdered By: Chalo Mclean on 12-23-2024 INR Coag (Bld) [Relative time] 1.5 {INR} [facility] LDL calc ser/plasOrdered By: Chalo Mclean on 12-23-2024 Cholesterol in LDL [Mass/Vol] 77 mg/dL [facility] Comment on above: Lxlpllmmmo=693-626 m g/dL & Higher Bfhy=463 mg/dL or greater Laboratory - Chemistry and C hemistry - challengeOrdered By: Chalo Mclean on 12-23-2024 AST [Catalytic activity/Vol] 22 U/L <38 [facility] Lipid Profileon 12-23-2024 CHOL:HDL 3.74 Normal [facility] Comment on above: Performed By: #### L 100.0100, L500.4050, L500.4100, L300.4310, L501.9940, L501.9520, L300.3900 ####[facility] [address] [place], [place], [id number] Cholesterol [Mass/Vol] 127 mg/dL Normal <=200 [facility] Comment on above: Result Comment: Chol esterol level, Desirable <200 mg/dLBorderline high cholesterol 200-239 mg/dLHigh cholesterol >=240 mg/dLRecommendations of the NCEP Adult Treatment Panel for thefollowing risk-cutoff thresholds for the [place] Americanpulation. Performed By: #### L 100.0100, L500.4050, L500.4100, L300.4310, L501.9940, L501.9520, L300.3900 ####[facility] [address] [place], [address] Cholesterol in HDL [Mass/Vol] 34 mg/dL Low [facility] Comment on above: Result Comment: Juhi onal Cholesterol Education Program (NCEP) guidelines:<40 mg/dL: Low HDL-cholesterol (major risk factor for CHD)>= 60 mg/dL: High HDL-cholesterol (negative risk factor forCHD)HDL-cholesterol is affected by a number of factors, e.g.smoking, exercise, hormones, sex and age. Performed By: #### L 100.0100, L500.4050, L500.4100, L300.4310, L501.9940, L501.9520, L300.3900 ####[facility] [address] [place], [address] Cholesterol in LDL [Mass/Vol] 77 mg/dL Normal [facility] Comment on above: Result Comment: Bord vezfic=271-393 mg/dL Higher Nnsf=819 mg/dL or greater Performed By: #### L 100.0100, L500.4050, L500.4100, L300.4310, L501.9940, L501.9520, L300.3900 ####[facility] [address] [place], [address] Cholesterol in VLDL [Mass/Vol] 16 mg/dL Normal 5-40 [facility] Comment on above: Performed By: #### L 100.0100, L500.4050, L500.4100, L300.4310, L501.9940, L501.9520, L300.3900 ####[facility] [address] [place], [address] Triglyceride [Mass/Vol] 78 mg/dL Normal [facility] Comment on above: Result Comment: The drugs N-Acetylcysteine and Metamizole may falselydepress this assay.Normal range: <150 mg/dLBorderline High: 150-199 mg/dLHigh: 200-499 mg/dLVery High: >500 mg/dL Performed By: #### L 100.0100, L500.4050, L500.4100, L300.4310, L501.9940, L501.9520, L300.3900 ####[facility] [address] [place], [address] MCV (mean corpuscular volume ) determinationOrdered By: Chalo Vinay on 12-23-2024 MCV (RBC) [Entitic vol] 86.3 fL 80-94 [facility] Mean corpuscular hemoglobin (MCH) determinationOrdered By: [facility] 12-23-2024 MCH (RBC) [Entitic mass] 27.6 pg 27.0-32.0 [facility] Mean corpuscular hemoglobin concentration (MCHC) determinationOrdered By: [facility] 12-23-2024 MCHC (RBC) [Mass/Vol] 32.0 g/dL 32-36 [facility] Mean platelet volume determi nationOrdered By: [facility] on 12-23-2024 Platelet mean volume (Bld) [Entitic vol] 11.0 fL 6.2-12.0 [facility] Monocyte percentageOrdered B y: [facility] Monocytes/100 WBC (Bld) 5.6 % 0-10 [facility] Neutrophil percentageOrdered By: [facility] 12-23-[facility] Neutrophils/100 WBC (Bld) 76.5 % High 47-70 [facility] Nucleated red blood cell per centageOrdered By: [facility] Nucleated RBC/100 WBC (Bld) [Ratio] 0 % 0-5 [facility] PSA,Total- Diagnosticon 050 PSA, DIAGNOSTIC < 0.02 Normal 0.00-4.00 [facility] Comment on above: Result Comment: This test was performed using the Ridemakerz tPSAmethod. Measured values of a patient??sample can varydepending on the testing procedure used. PSA valuesdetermined on patient samples by different testingprocedures cannot be used interchangeably. If there is achange in PSA assays while monitoring therapy, sequentialtesting should be performed to confirm baseline values. Performed By: #### L 100.0100, L500.4050, L500.4100, L300.4310, L501.9940, L501.9520, L300.3900 ####[facility] [address] [place], [place], [id number] Partial Thromboplast Timeon 12-23-2024 aPTT Coag (Bld) [Time] 33.9 s Normal 24.1-36.2 [facility] Comment on above: Performed By: #### L 100.0100, L500.4050, L500.4100, L300.4310, L501.9940, L501.9520, L300.3900 ####[facility] [address] [place], [address] Platelet countOrdered By: Saqib Mclean on 12-23-2024 Platelets (Bld) [#/Vol] 254 10*3/uL 150-450 [facility] Potassium measurement (mass/ volume)Ordered By: Chalo Mclean on 12-23-2024 Potassium (Unsp spec) [Mass/Vol] 4.2 mmol/L 3.3-5.1 [facility] Prothrombin Time w/INRon INR Coag (PPP) [Relative time] 1.5 {INR} Normal [facility] Comment on above: Performed By: #### L 100.0100, L500.4050, L500.4100, L300.4310, L501.9940, L501.9520, L300.3900 ####[facility] [address] [place], [address] PT Coag (PPP) [Time] 18.3 s High 11.7-14.9 [facility] Comment on above: Performed By: #### L 100.0100, L500.4050, L500.4100, L300.4310, L501.9940, L501.9520, L300.3900 ####[facility] [address] [place], [address] Prothrombin timeOrdered By: Chalo Mclean on 12-23-2024 PT Coag (PPP) [Time] 18.3 s High 11.7-14.9 [facility] RBC Auto (Bld) [#/Vol]Ordere d By: Chalo Mclean on 12-23-2024 RBC (Bld) [#/Vol] 4.53 10*6/uL Low 4.6-6.2 [facility] Screening total cholesterol/ high density lipoprotein (HDL) cholesterol ratioOrdered By: Chalo Mclean on 12-23-2024 Cholesterol.total/Choles terol in HDL [Mass ratio] 3.74 {ratio} [facility] Serum creatinine measurement (mass/volume)Ordered By: Chalo Mclean on 12-23-2024 Creatinine [Mass/Vol] 0.61 mg/dL Low 0.70-1.20 [facility] Serum globulin measurementOr dered By: Chalo Mclean 12-23-2024 Globulin (S) [Mass/Vol] 3.7 g/dL 2.2-4.2 [facility] Serum glucose measurement (m ass/volume)Ordered By: Chalo Mclean 12-23-2024 Glucose [Mass/Vol] 116 mg/dL High 70-99 [facility] Serum or plasma alanine hernandez otransferase (ALT) measurementOrdered By: Chalo Mclean 12-23-2024 ALT [Catalytic activity/Vol] 11 U/L <47 [facility] Serum or plasma albumin rufus urement (mass/volume)Ordered By: Chalo Mclean 12-23-2024 Albumin [Mass/Vol] 3.6 g/dL 3.4-4.8 [facility] Serum or plasma albumin/glob ulin mass ratioOrdered By: Chalo Mclean 12-23-2024 Albumin/Globulin [Mass ratio] 1.0 {ratio} 0.9-2.4 [facility] Serum or plasma alkaline susie sphatase measurementOrdered By: Chalo Mclean 12-23-2024 ALP [Catalytic activity/Vol] 156 U/L High 40-129 [facility] Serum or plasma calcium rufus urement (mass/volume)Ordered By: Chalo Mclean on 12-23-2024 Calcium [Mass/Vol] 8.1 mg/dL 7.6-11.0 [facility] Serum or plasma cholesterol in HDL measurement (mass/volume)Ordered By: Chalo Mclean on 12-23-2024 Cholesterol in HDL [Mass/Vol] 34 mg/dL Low >40 [facility] Comment on above: National Cholesterol Education Program (NCEP) guidelines:<40 mg/dL: Low HDL-cholesterol (major risk factor for CHD)>= 60 mg/dL: High HDL-cholesterol (negative risk factor for CHD)HDL-cholesterol is affected by a number of factors, e.g. smoking, exercise, hormones, sex and age. Serum or plasma cholesterol measurement (mass/volume)Ordered By: Chalo Mclean on 12-23-2024 Cholesterol [Mass/Vol] 127 mg/dL <201 [facility] Comment on above: Cholesterol level, D esirable <200 mg/dLBorderline high cholesterol 200-239 mg/dLHigh cholesterol >=240 mg/dLRecommendations of the NCEP Adult Treatment Panel for the following risk-cutoff thresholds for the [place] population. Serum or plasma urea nitroge n measurement (mass/volume)Ordered By: Chalo Mclean on 12-23-2024 Urea nitrogen [Mass/Vol] 7 mg/dL 4-19 [facility] Sodium levelOrdered By: Chalo Mclean 12-23-2024 Sodium [Moles/Vol] 139 mmol/L 133-145 [facility] TSH DL <= 0.005 mIU/L QnOrde red By: Chalo Mclean on 12-23-2024 TSH Qn 1.980 uIU/mL 0.300-4.200 [facility] Thyroid Stim Hormone (TSH)on 12-23-2024 TSH 1.980 uIU/mL Normal 0.300-4.200 [facility] Comment on above: Performed By: #### L 100.0100, L500.4050, L500.4100, L300.4310, L501.9940, L501.9520, L300.3900 ####[facility] [address] [place], [address] Total proteinOrdered By: Chalo Mclean on 12-23-2024 Protein [Mass/Vol] 7.3 g/dL 5.9-8.4 [facility] Triglycerides measurementOrd ered By: Chalo Mclean on 12-23-2024 Triglyceride [Mass/Vol] 78 mg/dL <199 [facility] Comment on above: The drugs N-Acetylcy steine and Metamizole may falsely depress this assay. Normal range: <150 mg/dLBorderline High: 150-199 mg/dLHigh: 200-499 mg/dLVery High: >500 mg/dL White blood cell (WBC) count Ordered By: Chalo Mclean on 12-23-2024 WBC (Bld) [#/Vol] 7.9 10*3/uL 4.4-11.0 [facility] Cardiology Visit Reporton Cardiology Visit Report Normal [facility] .Auto Diffon 11-28-2024 Basophil, Absolute 0.0 10 3/mcL Normal 0.0-0.3 [facility] Comment on above: Performed By: #### B MP, ADIFF, GFR, ANEURAMONE MDW, CBC #### [address] [address] Basophils/100 WBC (Bld) 0.4 % Normal 0.0-2.5 [facility] Comment on above: Performed By: #### B MP, ADIFF, GFR, ANEU, RAMONE, W, CBC #### [address] [address] Eosinophil, Absolute 0.2 10 3/mcL Normal 0.0-0.7 [facility] Comment on above: Performed By: #### B MP, ADIFF, GFR, ANEU, MD RAMONEW, CBC #### [address] [address] Eosinophils/100 WBC (Bld) 3.4 % Normal 0.0-6.0 [facility] Comment on above: Performed By: #### B MP, ADIFF, GFR, ANEU, TROPHS, W, CBC #### [address] [address] Lymphocyte, Absolute 1.0 10 3/mcL Normal 0.9-4.3 [facility] Comment on above: Performed By: #### B MP, ADIFF, GFR, ANEURAMONE MDW, CBC #### [address] [address] Lymphocytes/100 WBC (Bld) 20.0 % Normal 20.0-40.0 [facility] Comment on above: Performed By: #### B MP, ADIFF, GFR, ANEU, RAMONE, ARIANNA, CBC #### [address] [address] Monocyte, Absolute 0.3 10 3/mcL Normal 0.1-1.4 [facility] Comment on above: Performed By: #### B MP, ADIFF, GFR, ANEURAMONE MDW, CBC #### [address] [address] Monocytes/100 WBC (Bld) 6.3 % Normal 2.0-13.0 [facility] Comment on above: Performed By: #### B MP, ADIFF, GFR, ANEU, ARIANNA PACK, CBC #### [address] [address] Neutrophils/100 WBC (Bld) 69.9 % Normal 50.0-75.0 [facility] Comment on above: Performed By: #### B MP, ADIFF, GFR, RAMONE YOUNG MDW, CBC #### [address] [address] .GFRon 11-28-2024 Estimated Glomerular Filtration Rate 108 ml/min/1.73sqm Normal [facility] Comment on above: Result Comment: Stages of [...] ADIFF, GFR, ANEU, ARIANNA PACK, CBC #### [address] [address] .MDWon 11-28-2024 Monocyte Distribution Width 18.40 Normal 0.00-20.00 [facility] Comment on above: Result Comment: For ED adult patients suspected of sepsis, MDW<=20.0 does not rule out sepsis or risk of sepsis Performed By: #### B MP, ADIFF, GFR, RAMONE YOUNG MDW, CBC #### [address] [address] .NEUABSon 11-28-2024 Neutrophil, Absolute 3.6 10 3/mcL Normal 2.3-8.1 [facility] Comment on above: Performed By: #### B MP, ADIFF, GFR, ANEURAMONE MDW, CBC #### [address] [address] BMPon 11-28-2024 BUN/Creatinine Ratio 23 ratio Normal 7-27 [facility] Comment on above: Performed By: #### B MP, ADIFF, GFR, RAMONE YOUNG MDW, CBC #### [address] [address] Calcium [Mass/Vol] 8.2 mg/dL Low 8.4-10.2 [facility] Comment on above: Performed By: #### B MP, ADIFF, GFR, RAMONE YOUNG MDW, CBC #### [address] [address] Chloride [Moles/Vol] 104 mmol/L Normal 98-107 [facility] Comment on above: Performed By: #### B MP, ADIFF, GFR, ANEU, ARIANNA PACK, CBC #### [address] [address] CO2 [Moles/Vol] 38 mmol/L High 23-31 [facility] Comment on above: Performed By: #### B RONI, ADIFF, GFR, RAMONE YOUNG MDW, CBC #### [address] [address] Creatinine [Mass/Vol] 0.61 mg/dL Low 0.70-1.30 [facility] Comment on above: Result Comment: Test ing performed on Yapert Dimension EXL analyzer using a modified kinetic Franklyn technique. Performed By: #### B RONI, ADIFF, GFR, RAMONE YOUNG MDW, CBC #### [address] [address] Electrolyte Balance -1.0 mEq/L Low 4.0-15.0 [facility] Comment on above: Performed By: #### B RONI, ADIFF, GFR, RAMONE YOUNG MDW, CBC #### [address] [address] Glucose [Mass/Vol] 115 mg/dL Normal 80-115 [facility] Comment on above: Performed By: #### B MARIMAR TAMAYOIFF, GFR, RAMONE YOUNG MDW, CBC #### [address] [address] Potassium [Moles/Vol] 4.1 mmol/L Normal 3.5-5.1 [facility] Comment on above: Performed By: #### B ROIN, ADIFF, GFR, RAMONE YOUNG MDW, CBC #### [address] [address] Sodium [Moles/Vol] 141 mmol/L Normal 136-145 [facility] Comment on above: Performed By: #### B RONI ADIFF, GFR, RAMONE YOUNG MDW, CBC #### [address] [address] Urea nitrogen [Mass/Vol] 14 mg/dL Normal 7-18 [facility] Comment on above: Performed By: #### B RONI ADIFF, GFR, RAMONE YOUNG MDW, CBC #### [address] [address] CBCon 11-28-2024 Erythrocyte distribution width (RBC) [Ratio] 16.0 % High 11.5-15.5 [facility] Comment on above: Performed By: #### B RONI, ADIFF, GFR, RAMONE YOUNG MDW, CBC #### [place] [address] Hematocrit (Bld) [Volume fraction] 36.9 % Low 40.0-52.0 [facility] Comment on above: Performed By: #### B RONI, SCOTT, GFR, RAMONE YOUNG MDW, CBC #### [place] [address] Hgb 12.1 G/dL Low 13.0-17.5 [facility] Comment on above: Performed By: #### B RONI, ADIFF, GFR, RAMONE YOUNG MDW, CBC #### [place] [address] MCH (RBC) [Entitic mass] 28.2 pg Normal 27.0-33.0 [facility] Comment on above: Performed By: #### B RONI, ADIFF, GFR, RAMONE YOUNG MDW, CBC #### [address] [address] MCHC 32.8 G/dL Normal 32.0-36.0 [facility] Comment on above: Performed By: #### B RONI, ADIFF, GFR, RAMONE YOUNG MDW, CBC #### [address] [address] MCV (RBC) [Entitic vol] 86.1 fL Normal 81.0-100.0 [facility] Comment on above: Performed By: #### B RONI, ADIFF, GFR, RAMONE YOUNG MDW, CBC #### [place] [address] Platelet 207 10 3/mcL Normal 150-450 [facility] Comment on above: Performed By: #### B RONI, ADIFF, GFR, RAMONE YOUNG MDW, CBC #### [address] [address] Platelet mean volume (Bld) [Entitic vol] 7.6 fL Normal 6.4-10.5 [facility] Comment on above: Performed By: #### B RONI, ADIFF, GFR, RAMONE YOUNG MDW, CBC #### [address] [address] RBC 4.28 10 6/mcL Low 4.50-6.00 [facility] Comment on above: Performed By: #### B RONI, MARIMARIFF, GFR, RAMONE YOUNG MDW, CBC #### [address] [address] WBC 5.2 10 3/mcL Normal 4.5-10.8 [facility] Comment on above: Performed By: #### B RONI, ADIFF, GFR, RAMONE YOUNG MDW, CBC #### [address] [address] TROPHSon 11-28-2024 High Sensitivity Troponin I 28 ng/L Normal 0-76 [facility] Comment on above: Result Comment: High Sensitive Troponin I Reference Ranges: Female: 0-51 ng/L Male: 0-76 ng/L Testing performed on Dimension EXL using a homogeneous sandwich chemiluminescent immunoassay based on Adormo technology. Performed By: #### T JAMILA #### [address] [address] High Sensitivity Troponin I 26 ng/L Normal 0-76 [facility] Comment on above: Result Comment: High Sensitive Troponin I Reference Ranges: Female: 0-51 ng/L Male: 0-76 ng/L Testing performed on Dimension EXL using a homogeneous sandwich chemiluminescent immunoassay based on Adormo technology. Performed By: #### B RONI, ADIFF, GFR, ANEURAMONE MDW, CBC #### [address] [address] XR CHEST 1 VIEWon 11-28-2024 XR CHEST [...] 11/28/2024 12:31:11 PM Ordering Provider: JAZMIN RIVERA [facility] CVFLURVon 10-24-2024 FLU A PCR Negative Normal Negative [facility] Comment on above: Performed By: #### C VFLURV #### [place] [address] FLU B PCR Negative Normal Negative [facility] Comment on above: Performed By: #### C VFLURV #### [place] [address] RSV PCR Negative Normal Negative [facility] Comment on above: Performed By: #### C VFLURV #### [place] [address] SARS-CoV-2 (COVID-19) RNA ROBBY+probe Ql (Unsp spec) Negative Normal Negative [facility] Comment on above: Result Comment: Resu lts [...] Performed By: #### C VFLURV #### [address] [place], [place] [address] Culture, Blood (WB)on 2024 CUB No growth in 5 days. Normal [facility] Comment on above: Performed By: #### M 200.1000 ####[facility] [address] [place], [address] CUB No growth in 5 days. Normal [facility] Comment on above: Performed By: #### M 200.1000 ####[facility] [address] [place], [address] CBC W/Diff, Automatedon 08-21 Absolute Neut Normal 2.0-7.7 [facility] Comment on above: Result Comment: @PT DISCHARGED Performed By: #### L 100.0100 ####[facility] [address] [place], [address] HCT Normal 40-54 [facility] Comment on above: Result Comment: @PT DISCHARGED Performed By: #### L 100.0100 ####[facility] [address] [place], [address] HGB Normal 13.0-16.5 [facility] Comment on above: Result Comment: @PT DISCHARGED Performed By: #### L 100.0100 ####[facility] [address] [place], [address] MCH Normal 27.0-32.0 [facility] Comment on above: Result Comment: @PT DISCHARGED Performed By: #### L 100.0100 ####[facility] [address] [place], [address] MCHC Normal 32-36 [facility] Comment on above: Result Comment: @PT DISCHARGED Performed By: #### L 100.0100 ####[facility] [address] [place], [address] MCV Normal 80-94 [facility] Comment on above: Result Comment: @PT DISCHARGED Performed By: #### L 100.0100 ####[facility] [address] [place], [address] NEUT% Normal 47-70 [facility] Comment on above: Result Comment: @PT DISCHARGED Performed By: #### L 100.0100 ####[facility] [address] [place], [address] PLT Normal 150-450 [facility] Comment on above: Result Comment: @PT DISCHARGED Performed By: #### L 100.0100 ####[facility] [address] [place], [address] RBC Normal 4.6-6.2 [facility] Comment on above: Result Comment: @PT DISCHARGED Performed By: #### L 100.0100 ####[facility] [address] [place], [address] RDW CV Normal 11.6-14.6 [facility] Comment on above: Result Comment: @PT DISCHARGED Performed By: #### L 100.0100 ####[facility] [address] [place], [address] RDW SD Normal 35.1-43.9 [facility] Comment on above: Result Comment: @PT DISCHARGED Performed By: #### L 100.0100 ####[facility] [address] [place], [address] WBC Normal 4.4-11.0 [facility] Comment on above: Result Comment: @PT DISCHARGED Performed By: #### L 100.0100 ####[facility] [address] [place], [address] Comprehensive Metabolic Prof ilon 08-30-2024 ALB Normal 3.2-5.0 [facility] Comment on above: Result Comment: @PT DISCHARGED Performed By: #### L 500.4050 ####[facility] [address] [place], [address] ALK P Normal 45-117 [facility] Comment on above: Result Comment: @PT DISCHARGED Performed By: #### L 500.4050 ####[facility] [address] [place], [address] ALT Normal 16-61 [facility] Comment on above: Result Comment: @PT DISCHARGED Performed By: #### L 500.4050 ####[facility] [address] [place], [address] AST Normal 15-37 [facility] Comment on above: Result Comment: @PT DISCHARGED Performed By: #### L 500.4050 ####[facility] [address] [place], [address] BUN Normal 7-18 [facility] Comment on above: Result Comment: @PT DISCHARGED Performed By: #### L 500.4050 ####[facility] [address] [place], [address] BUN/CRE Normal 10-20 [facility] Comment on above: Result Comment: @PT DISCHARGED Performed By: #### L 500.4050 ####[facility] [address] [place], [address] CA,Total Normal 8.5-10.1 [facility] Comment on above: Result Comment: @PT DISCHARGED Performed By: #### L 500.4050 ####[facility] [address] [place], [address] CL Normal 98-107 [facility] Comment on above: Result Comment: @PT DISCHARGED Performed By: #### L 500.4050 ####[facility] [address] [place], [address] CO2 Normal 21.0-32.0 [facility] Comment on above: Result Comment: @PT DISCHARGED Performed By: #### L 500.4050 ####[facility] [address] [place], [address] CREAT,SERUM Normal 0.70-1.30 [facility] Comment on above: Result Comment: @PT DISCHARGED Performed By: #### L 500.4050 ####[facility] [address] [place], [address] EST GFR Normal >60 [facility] Comment on above: Result Comment: @PT DISCHARGED Performed By: #### L 500.4050 ####[facility] [address] [place], [address] EST GFR - AA Normal >60 [facility] Comment on above: Result Comment: @PT DISCHARGED Performed By: #### L 500.4050 ####[facility] [address] [place], [address] GAP Normal 5-15 [facility] Comment on above: Result Comment: @PT DISCHARGED Performed By: #### L 500.4050 ####[facility] [address] [place], [address] GLU Normal 74-106 [facility] Comment on above: Result Comment: @PT DISCHARGED Performed By: #### L 500.4050 ####[facility] [address] [place], [address] Potassium Normal 3.5-5.1 [facility] Comment on above: Result Comment: @PT DISCHARGED Performed By: #### L 500.4050 ####[facility] [address] [place], [address] T BILI Normal 0.20-1.00 [facility] Comment on above: Result Comment: @PT DISCHARGED Performed By: #### L 500.4050 ####[facility] [address] [place], [address] T PROT Normal 6.4-8.2 [facility] Comment on above: Result Comment: @PT DISCHARGED Performed By: #### L 500.4050 ####[facility] [address] [place], [address] Comprehensive Metabolic Profil Normal 136-145 [facility] Comment on above: Result Comment: @PT DISCHARGED Performed By: #### L 500.4050 ####[facility] [address] [place], [place], [id number] Absolute lymphocyte countOrd ered By: Sherley Larsen on 08-29-2024 Lymphocytes Auto (Unsp spec) [#/Vol] 1.04 10*3/uL 0.83-4.51 [facility] Absolute neutrophil countOrd ered By: Sherley Larsen on 08-29-2024 Neutrophils (Bld) [#/Vol] 2.9 10*3/uL 2.0-7.7 [facility] Albumin to globulin ratioOrd ered By: Sherley Larsen on 08-29-2024 Albumin/Globulin [Mass ratio] 0.4 {ratio} Low 0.9-2.4 [facility] Automated lymphocyte count a s percentage of total leukocytesOrdered By: Sherley Larsen on 08-29-2024 Lymphocytes/100 WBC Auto (Unsp spec) 22.6 % 19-41 [facility] Basophil percentageOrdered B y: Sherley Larsen on 08-29-2024 Basophils/100 WBC (Bld) 0.7 % 0-1 [facility] Bilirubin, totalOrdered By: Sherley Larsen on 08-29-2024 Bilirubin [Mass/Vol] 0.40 mg/dL 0.20-1.00 [facility] Comment on above: For patients on eltr ombopag therapy, use of Dimension [place] TBIL is not recommended. Blood urea nitrogen (BUN)/cr eatinine ratioOrdered By: Sherley Larsen on 08-29-2024 Urea nitrogen/Creatinine [Mass ratio] 21.6 mg/mg High 10-20 [facility] CBC W/Diff, Automatedon Absolute Lymph 1.04 X10 3/uL Normal 0.83-4.51 [facility] Comment on above: Performed By: #### L 100.0100 ####[facility] [address] [place], [address] Absolute Neut 2.9 X10 3/uL Normal 2.0-7.7 [facility] [facility] Comment on above: Performed By: #### L 100.0100 ####[facility] [address] [place], [address] Basophils/100 WBC (Bld) 0.7 % Normal 0-1 [facility] Comment on above: Performed By: #### L 100.0100 ####[facility] [address] [place], [address] Eosinophils/100 WBC (Bld) 3.9 % Normal 0-5 [facility] Comment on above: Performed By: #### L 100.0100 ####[facility] [address] [place], [address] Erythrocyte distribution width (RBC) [Ratio] 17.3 % High 11.6-14.6 [facility] Comment on above: Performed By: #### L 100.0100 ####[facility] [address] [place], [address] Hematocrit (Bld) [Volume fraction] 38.3 % Low 40-54 [facility] Comment on above: Performed By: #### L 100.0100 ####[facility] [address] [place], [address] Hemoglobin (Bld) [Mass/Vol] 11.7 g/dL Low 13.0-16.5 [facility] Comment on above: Performed By: #### L 100.0100 ####[facility] [address] [place], [address] IG% 0.400 Normal 0.0-0.9 [facility] Comment on above: Result Comment: IG% - Immature Granulocytes (promyelocytes, myelocytes andmetamyelocytes) > 1% indicates that a LEFT SHIFT is Present. Performed By: #### L 100.0100 ####[facility] [address] [place], [address] Lymphocytes/100 WBC (Bld) 22.6 % Normal 19-41 [facility] Comment on above: Performed By: #### L 100.0100 ####[facility] [address] [place], [address] MCH (RBC) [Entitic mass] 28.6 pg Normal 27.0-32.0 [facility] Comment on above: Performed By: #### L 100.0100 ####[facility] [address] [place], [address] MCHC (RBC) [Mass/Vol] 30.5 g/dL Low 32-36 [facility] Comment on above: Performed By: #### L 100.0100 ####[facility] [address] [place], [address] MCV (RBC) [Entitic vol] 93.6 fL Normal 80-94 [facility] Comment on above: Performed By: #### L 100.0100 ####[facility] [address] [place], [address] Monocytes/100 WBC (Bld) 10.2 % High 0-10 [facility] Comment on above: Performed By: #### L 100.0100 ####[facility] [address] [place], [address] Neutrophils/100 WBC (Bld) 62.2 % Normal 47-70 [facility] Comment on above: Performed By: #### L 100.0100 ####[facility] [address] [place], [address] Nucleated RBC (Bld) [#/Vol] 0 10*3/uL Normal 0-5 [facility] Comment on above: Performed By: #### L 100.0100 ####[facility] [address] [place], [address] Platelet mean volume (Bld) [Entitic vol] 9.8 fL Normal 6.2-12.0 [facility] Comment on above: Performed By: #### L 100.0100 ####[facility] [address] [place], [address] Platelets (Bld) [#/Vol] 274 10*3/uL Normal 150-450 [facility] Comment on above: Performed By: #### L 100.0100 ####[facility] [address] [place], [address] RBC (Bld) [#/Vol] 4.09 10*6/uL Low 4.6-6.2 [facility] Comment on above: Performed By: #### L 100.0100 ####[facility] [address] [place], [address] RDW SD 60.1 fl High 35.1-43.9 [facility] Comment on above: Performed By: #### L 100.0100 ####[facility] [address] [place], [address] WBC (Bld) [#/Vol] 4.6 10*3/uL Normal 4.4-11.0 [facility] Comment on above: Performed By: #### L 100.0100 ####[facility] [address] [place], [address] Carbon dioxide measurementOr dered By: Sherley Larsen on 01-09-2025 CO2 [Moles/Vol] 31.0 mmol/L 21.0-32.0 [facility] Chloride measurementOrdered By: Sherley Larsen on 08-29-2024 Chloride [Moles/Vol] 104 mmol/L 98-107 [facility] Comprehensive Metabolic Prof ilon 08-29-2024 Albumin [Mass/Vol] 1.8 g/dL Low 3.2-5.0 [facility] Comment on above: Performed By: #### L 500.4050 ####[facility] [address] [place], [address] Albumin/Globulin [Mass ratio] 0.4 {ratio} Low 0.9-2.4 [facility] Comment on above: Performed By: #### L 500.4050 ####[facility] [address] [place], [address] ALK P 109 U/L Normal 45-117 [facility] Comment on above: Performed By: #### L 500.4050 ####[facility] [address] [place], [address] ALT [Catalytic activity/Vol] 10 U/L Low 16-61 [facility] Comment on above: Performed By: #### L 500.4050 ####[facility] [address] [place], [address] AST [Catalytic activity/Vol] 28 U/L Normal 15-37 [facility] Comment on above: Performed By: #### L 500.4050 ####[facility] [address] [place], [address] Bilirubin [Mass/Vol] 0.40 mg/dL Normal 0.20-1.00 [facility] Comment on above: Result Comment: For patients on eltrombopag therapy, use of Dimension [place] TBIL is not recommended. Performed By: #### L 500.4050 ####[facility] [address] [place], [address] BUN/CRE 21.6 RATIO High 10-20 [facility] Comment on above: Performed By: #### L 500.4050 ####[facility] [address] [place], [address] CA,Total 8.1 mg/dL Low 8.5-10.1 [facility] Comment on above: Performed By: #### L 500.4050 ####[facility] [address] [place], [address] Chloride [Moles/Vol] 104 mmol/L Normal 98-107 [facility] Comment on above: Performed By: #### L 500.4050 ####[facility] [address] [place], [address] CO2 [Moles/Vol] 31.0 mmol/L Normal 21.0-32.0 [facility] Comment on above: Performed By: #### L 500.4050 ####[facility] [address] [place], [address] Creatinine [Mass/Vol] 0.37 mg/dL Low 0.70-1.30 [facility] Comment on above: Result Comment: The validity of the calculated GFR GFRAA in patients over70 years has not been determined. Clinical correlation isessential. Performed By: #### L 500.4050 ####[facility] [address] [place], [address] ECRCL 362.80 ml/min Normal [facility] Comment on above: Performed By: #### L 500.4050 ####[facility] [address] [place], [address] EST GFR - AA 305 mL/min Normal >60 [facility] Comment on above: Result Comment: Afri can Ivorian GFR Calc Performed By: #### L 500.4050 ####[facility] [address] [place], [address] GAP 3 Low 5-15 [facility] Comment on above: Performed By: #### L 500.4050 ####[facility] [address] [place], [address] GFR/1.73 sq M.predicted among non-blacks MDRD (S/P/Bld) [Vol rate/Area] 252 mL/min/{1.73_m2} Normal >60 [facility] Comment on above: Result Comment: Non- GFR Calc Performed By: #### L 500.4050 ####[facility] [address] [place], [address] Globulin (S) [Mass/Vol] 4.0 g/dL Normal 2.2-4.2 [facility] Comment on above: Performed By: #### L 500.4050 ####[facility] [address] [place], [address] Glucose [Mass/Vol] 110 mg/dL High 74-106 [facility] Comment on above: Result Comment: Fast ing Glucose result from 100 to 125 mg/dLsuggests IMPAIRED HOMEOSTASIS per A.D.A. criteria. Performed By: #### L 500.4050 ####[facility] [address] [place], [address] Potassium [Moles/Vol] 3.6 mmol/L Normal 3.5-5.1 [facility] Comment on above: Performed By: #### L 500.4050 ####[facility] [address] [place], [address] Sodium [Moles/Vol] 138 mmol/L Normal 136-145 [facility] Comment on above: Performed By: #### L 500.4050 ####[facility] [address] [place], [address] T PROT 5.8 g/dL Low 6.4-8.2 [facility] Comment on above: Performed By: #### L 500.4050 ####[facility] [address] [place], [place], [address] Urea nitrogen [Mass/Vol] 8 mg/dL Normal 7-18 [facility] Comment on above: Performed By: #### L 500.4050 ####[facility] [address] [place], [place], [id number] Eosinophil percentageOrdered By: Sherley Larsen on 08-29-2024 Eosinophils/100 WBC (Bld) 3.9 % 0-5 [facility] Erythrocyte distribution wid th ratioOrdered By: Sherley Larsen on 08-29-2024 Erythrocyte distribution width (RBC) [Ratio] 17.3 % High 11.6-14.6 [facility] Erythrocyte distribution wid th standard deviationOrdered By: Sherley Larsen on 08-29-2024 Erythrocyte distribution width (RBC) [Ratio] 60.1 fl High 35.1-43.9 [facility] Glomerular filtration rate ( GFR) estimationOrdered By: Sherley Larsen on 08-29-2024 GFR/1.73 sq M.predicted among non-blacks MDRD (S/P/Bld) [Vol rate/Area] 252 mL/min/{1.73_m2} >60 [facility] Comment on above: Non- GFR Calc Glucose measurementOrdered B y: Sherley Larsen on 08-29-2024 Glucose [Mass/Vol] 110 mg/dL High 74-106 [facility] Comment on above: Fasting Glucose resu lt from 100 to 125 mg/dL suggests IMPAIRED HOMEOSTASIS per A.D.A. criteria. Hematocrit Auto (Bld) [Volum e fraction]Ordered By: Sherley Larsen on 08-29-2024 Hematocrit (Bld) [Volume fraction] 38.3 % Low 40-54 [facility] Hemoglobin measurementOrdere d By: Sherley Larsen on 08-29-2024 Hemoglobin (Bld) [Mass/Vol] 11.7 g/dL Low 13.0-16.5 [facility] Immature granulocytes/100 WB C Auto (Bld)Ordered By: Sherley Larsen on 08-29-2024 Immature granulocytes/100 WBC (Bld) 0.400 % 0.0-0.9 [facility] Comment on above: IG% - Immature Granu locytes (promyelocytes, myelocytes and metamyelocytes) > 1% indicates that a LEFT SHIFT is Present. Laboratory - Chemistry and C hemistry - challengeOrdered By: Sherley Larsen on 08-29-2024 AST [Catalytic activity/Vol] 28 U/L 15-37 [facility] MCV (mean corpuscular volume ) determinationOrdered By: Sherley Larsen on 08-29-2024 MCV (RBC) [Entitic vol] 93.6 fL 80-94 [facility] Mean corpuscular hemoglobin (MCH) determinationOrdered By: Sherley Larsen on 08-29-2024 MCH (RBC) [Entitic mass] 28.6 pg 27.0-32.0 [facility] Mean corpuscular hemoglobin concentration (MCHC) determinationOrdered By: Sherley Larsen on 08-29-2024 MCHC (RBC) [Mass/Vol] 30.5 g/dL Low 32-36 [facility] Mean platelet volume determi nationOrdered By: Sherley Larsen on 08-29-2024 Platelet mean volume (Bld) [Entitic vol] 9.8 fL 6.2-12.0 [facility] Monocyte percentageOrdered B y: Sherley Larsen on 08-29-2024 Monocytes/100 WBC (Bld) 10.2 % High 0-10 [facility] Neutrophil percentageOrdered By: Sherley Larsen 08-29-2024 Neutrophils/100 WBC (Bld) 62.2 % 47-70 [facility] Nucleated red blood cell per centageOrdered By: Sherley Larsen on 08-29-2024 Nucleated RBC/100 WBC (Bld) [Ratio] 0 % 0-5 [facility] Platelet countOrdered By: Florence Larsen on 08-29-2024 Platelets (Bld) [#/Vol] 274 10*3/uL 150-450 [facility] Potassium measurementOrdered By: Sherley Larsen on 08-29-2024 Potassium [Moles/Vol] 3.6 mmol/L 3.5-5.1 [facility] RBC Auto (Bld) [#/Vol]Ordere d By: Sherley Larsen on 08-29-2024 RBC (Bld) [#/Vol] 4.09 10*6/uL Low 4.6-6.2 [facility] Serum anion gap measurementO rdered By: Sherley Larsen on 08-29-2024 Anion gap [Moles/Vol] 3 mmol/L Low 5-15 [facility] Serum globulin measurementOr dered By: Sherley Larsen on 08-29-2024 Globulin (S) [Mass/Vol] 4.0 g/dL 2.2-4.2 [facility] Serum or plasma alanine hernandez otransferase (ALT) measurementOrdered By: Sherley Larsen on 08-29-2024 ALT [Catalytic activity/Vol] 10 U/L Low 16-61 [facility] Serum or plasma albumin rufus urement (mass/volume)Ordered By: Sherley Larsen on 08-29-2024 Albumin [Mass/Vol] 1.8 g/dL Low 3.2-5.0 [facility] Serum or plasma alkaline susie sphatase measurementOrdered By: Sherley Larsen on 08-29-2024 ALP [Catalytic activity/Vol] 109 U/L 45-117 [facility] Serum or plasma calcium rufus urement (mass/volume)Ordered By: Sherley Larsen 08-29-2024 Calcium [Mass/Vol] 8.1 mg/dL Low 8.5-10.1 [facility] Serum or plasma creatinine m easurement (mass/volume)Ordered By: Sherley Larsen on 08-29-2024 Creatinine [Mass/Vol] 0.37 mg/dL Low 0.70-1.30 [facility] Comment on above: The validity of the calculated GFR & GFRAA in patients over 70 years has not been determined. Clinical correlation is essential. Serum or plasma urea nitroge n measurement (mass/volume)Ordered By: Sherley Larsen on 08-29-2024 Urea nitrogen [Mass/Vol] 8 mg/dL 7-18 [facility] Sodium levelOrdered By: Sherley Larsen on 08-29-2024 Sodium [Moles/Vol] 138 mmol/L 136-145 [facility] Total proteinOrdered By: Lupe Larsen on 08-29-2024 Protein [Mass/Vol] 5.8 g/dL Low 6.4-8.2 [facility] White blood cell (WBC) count Ordered By: Sherley Larsen on 08-29-2024 WBC (Bld) [#/Vol] 4.6 10*3/uL 4.4-11.0 [facility] CBC W/Diff, Automatedon Absolute Lymph 1.06 X10 3/uL Normal 0.83-4.51 [facility] Comment on above: Performed By: #### L 100.0100, L500.4050 ####[facility] [address] [place], [address] Absolute Neut 3.5 X10 3/uL Normal 2.0-7.7 [facility] Comment on above: Performed By: #### L 100.0100, L500.4050 ####[facility] [address] [place], [address] Basophils/100 WBC (Bld) 0.4 % Normal 0-1 [facility] Comment on above: Performed By: #### L 100.0100, L500.4050 ####[facility] [address] [place], [address] Eosinophils/100 WBC (Bld) 4.1 % Normal 0-5 [facility] Comment on above: Performed By: #### L 100.0100, L500.4050 ####[facility] [address] [place], [address] Erythrocyte distribution width (RBC) [Ratio] 17.4 % High 11.6-14.6 [facility] Comment on above: Performed By: #### L 100.0100, L500.4050 ####[facility] [address] [place], [address] Hematocrit (Bld) [Volume fraction] 39.8 % Low 40-54 [facility] Comment on above: Performed By: #### L 100.0100, L500.4050 ####[facility] [address] [place], [address] Hemoglobin (Bld) [Mass/Vol] 12.4 g/dL Low 13.0-16.5 [facility] Comment on above: Performed By: #### L 100.0100, L500.4050 ####[facility] [address] [place], [address] IG% 0.400 Normal 0.0-0.9 [facility] Comment on above: Result Comment: IG% - Immature Granulocytes (promyelocytes, myelocytes andmetamyelocytes) > 1% indicates that a LEFT SHIFT is Present. Performed By: #### L 100.0100, L500.4050 ####[facility] [address] [place], [address] Lymphocytes/100 WBC (Bld) 19.5 % Normal 19-41 [facility] Comment on above: Performed By: #### L 100.0100, L500.4050 ####[facility] [address] [place], [address] MCH (RBC) [Entitic mass] 28.7 pg Normal 27.0-32.0 [facility] Comment on above: Performed By: #### L 100.0100, L500.4050 ####[facility] [address] [place], [address] MCHC (RBC) [Mass/Vol] 31.2 g/dL Low 32-36 [facility] Comment on above: Performed By: #### L 100.0100, L500.4050 ####[facility] [address] [place], [address] MCV (RBC) [Entitic vol] 92.1 fL Normal 80-94 [facility] Comment on above: Performed By: #### L 100.0100, L500.4050 ####[facility] [address] [place], [address] Monocytes/100 WBC (Bld) 10.5 % High 0-10 [facility] Comment on above: Performed By: #### L 100.0100, L500.4050 ####[facility] [address] [place], [address] Neutrophils/100 WBC (Bld) 65.1 % Normal 47-70 [facility] Comment on above: Performed By: #### L 100.0100, L500.4050 ####[facility] [address] [place], [address] Nucleated RBC (Bld) [#/Vol] 0 10*3/uL Normal 0-5 [facility] Comment on above: Performed By: #### L 100.0100, L500.4050 ####[facility] [address] [place], [address] Platelet mean volume (Bld) [Entitic vol] 9.9 fL Normal 6.2-12.0 [facility] Comment on above: Performed By: #### L 100.0100, L500.4050 ####[facility] [address] [place], [address] Platelets (Bld) [#/Vol] 258 10*3/uL Normal 150-450 [facility] Comment on above: Performed By: #### L 100.0100, L500.4050 ####[facility] [address] [place], [address] RBC (Bld) [#/Vol] 4.32 10*6/uL Low 4.6-6.2 [facility] Comment on above: Performed By: #### L 100.0100, L500.4050 ####[facility] [address] [place], [address] RDW SD 58.5 fl High 35.1-43.9 [facility] Comment on above: Performed By: #### L 100.0100, L500.4050 ####[facility] [address] [place], [address] WBC (Bld) [#/Vol] 5.4 10*3/uL Normal 4.4-11.0 [facility] Comment on above: Performed By: #### L 100.0100, L500.4050 ####[facility] [address] [place], [address] Comprehensive Metabolic Prof ilon 08-28-2024 Albumin [Mass/Vol] 1.9 g/dL Low 3.2-5.0 [facility] Comment on above: Performed By: #### L 100.0100, L500.4050 ####[facility] [address] [place], [address] Albumin/Globulin [Mass ratio] 0.5 {ratio} Low 0.9-2.4 [facility] Comment on above: Performed By: #### L 100.0100, L500.4050 ####[facility] [address] [place], [address] ALK P 113 U/L Normal 45-117 [facility] Comment on above: Performed By: #### L 100.0100, L500.4050 ####[facility] [address] [place], [address] ALT [Catalytic activity/Vol] 9 U/L Low 16-61 [facility] Comment on above: Performed By: #### L 100.0100, L500.4050 ####[facility] [address] [place], [address] AST [Catalytic activity/Vol] 26 U/L Normal 15-37 [facility] Comment on above: Performed By: #### L 100.0100, L500.4050 ####[facility] [address] [place], [address] Bilirubin [Mass/Vol] 0.30 mg/dL Normal 0.20-1.00 [facility] Comment on above: Result Comment: For patients on eltrombopag therapy, use of Dimension [place] TBIL is not recommended. Performed By: #### L 100.0100, L500.4050 ####[facility] [address] [place], [address] BUN/CRE 12.2 RATIO Normal 10-20 [facility] Comment on above: Performed By: #### L 100.0100, L500.4050 ####[facility] [address] [place], [address] CA,Total 8.2 mg/dL Low 8.5-10.1 [facility] Comment on above: Performed By: #### L 100.0100, L500.4050 ####[facility] [address] [place], [address] Chloride [Moles/Vol] 103 mmol/L Normal 98-107 [facility] Comment on above: Performed By: #### L 100.0100, L500.4050 ####[facility] [address] [place], [address] CO2 [Moles/Vol] 30.0 mmol/L Normal 21.0-32.0 [facility] Comment on above: Performed By: #### L 100.0100, L500.4050 ####[facility] [address] [place], [address] Creatinine [Mass/Vol] 0.49 mg/dL Low 0.70-1.30 [facility] Comment on above: Result Comment: The validity of the calculated GFR GFRAA in patients over70 years has not been determined. Clinical correlation isessential. Performed By: #### L 100.0100, L500.4050 ####[facility] [address] [place], [address] ECRCL 273.95 ml/min Normal [facility] Comment on above: Performed By: #### L 100.0100, L500.4050 ####[facility] [address] [place], [address] EST GFR - AA 220 mL/min Normal >60 [facility] Comment on above: Result Comment: Afri can Ivorian GFR Calc Performed By: #### L 100.0100, L500.4050 ####[facility] [address] [place], [address] GAP 4 Low 5-15 [facility] Comment on above: Performed By: #### L 100.0100, L500.4050 ####[facility] [address] [place], [address] GFR/1.73 sq M.predicted among non-blacks MDRD (S/P/Bld) [Vol rate/Area] 182 mL/min/{1.73_m2} Normal >60 [facility] Comment on above: Result Comment: Non- GFR Calc Performed By: #### L 100.0100, L500.4050 ####[facility] [address] [place], [address] Globulin (S) [Mass/Vol] 4.1 g/dL Normal 2.2-4.2 [facility] Comment on above: Performed By: #### L 100.0100, L500.4050 ####[facility] [address] [place], [address] Glucose [Mass/Vol] 110 mg/dL High 74-106 [facility] Comment on above: Result Comment: Fast ing Glucose result from 100 to 125 mg/dLsuggests IMPAIRED HOMEOSTASIS per A.D.A. criteria. Performed By: #### L 100.0100, L500.4050 ####[facility] [address] [place], [address] Potassium [Moles/Vol] 3.8 mmol/L Normal 3.5-5.1 [facility] Comment on above: Performed By: #### L 100.0100, L500.4050 ####[facility] [address] [place], [address] Sodium [Moles/Vol] 137 mmol/L Normal 136-145 [facility] Comment on above: Performed By: #### L 100.0100, L500.4050 ####[facility] [address] [place], [address] T PROT 6.0 g/dL Low 6.4-8.2 [facility] Comment on above: Performed By: #### L 100.0100, L500.4050 ####[facility] [address] [place], [address] Urea nitrogen [Mass/Vol] 6 mg/dL Low 7-18 [facility] Comment on above: Performed By: #### L 100.0100, L500.4050 ####[facility] [address] [place], [address] Culture, Blood (WB)on 2024 CUB Normal [facility] Comment on above: Performed By: #### M 200.1000 ####[facility] [address] [place], [address] Blood cultureOrdered By: Lupe Larsen on 08-27-2024 Bacteria identified Cx Nom (Bld) No growth in 5 days. [facility] CBC W/Diff, Automatedon Absolute Lymph 1.17 X10 3/uL Normal 0.83-4.51 [facility] Comment on above: Performed By: #### L 500.4050, L100.0100 ####[facility] [address] [place], [address] Absolute Neut 2.8 X10 3/uL Normal 2.0-7.7 [facility] Comment on above: Performed By: #### L 500.4050, L100.0100 ####[facility] [address] [place], [address] Basophils/100 WBC (Bld) 0.6 % Normal 0-1 [facility] Comment on above: Performed By: #### L 500.4050, L100.0100 ####[facility] [address] [place], [address] Eosinophils/100 WBC (Bld) 4.8 % Normal 0-5 [facility] Comment on above: Performed By: #### L 500.4050, L100.0100 ####[facility] [address] [place], [address] Erythrocyte distribution width (RBC) [Ratio] 17.6 % High 11.6-14.6 [facility] Comment on above: Performed By: #### L 500.4050, L100.0100 ####[facility] [address] [place], [address] Hematocrit (Bld) [Volume fraction] 36.2 % Low 40-54 [facility] Comment on above: Performed By: #### L 500.4050, L100.0100 ####[facility] [address] [place], [address] Hemoglobin (Bld) [Mass/Vol] 11.4 g/dL Low 13.0-16.5 [facility] Comment on above: Performed By: #### L 500.4050, L100.0100 ####[facility] [address] [place], [address] IG% 0.400 Normal 0.0-0.9 [facility] Comment on above: Result Comment: IG% - Immature Granulocytes (promyelocytes, myelocytes andmetamyelocytes) > 1% indicates that a LEFT SHIFT is Present. Performed By: #### L 500.4050, L100.0100 ####[facility] [address] [place], [address] Lymphocytes/100 WBC (Bld) 24.3 % Normal 19-41 [facility] Comment on above: Performed By: #### L 500.4050, L100.0100 ####[facility] [address] [place], [address] MCH (RBC) [Entitic mass] 28.8 pg Normal 27.0-32.0 [facility] Comment on above: Performed By: #### L 500.4050, L100.0100 ####[facility] [address] [place], [address] MCHC (RBC) [Mass/Vol] 31.5 g/dL Low 32-36 [facility] Comment on above: Performed By: #### L 500.4050, L100.0100 ####[facility] [address] [place], [address] MCV (RBC) [Entitic vol] 91.4 fL Normal 80-94 [facility] Comment on above: Performed By: #### L 500.4050, L100.0100 ####[facility] [address] [place], [address] Monocytes/100 WBC (Bld) 11.8 % High 0-10 [facility] Comment on above: Performed By: #### L 500.4050, L100.0100 ####[facility] [address] [place], [address] Neutrophils/100 WBC (Bld) 58.1 % Normal 47-70 [facility] Comment on above: Performed By: #### L 500.4050, L100.0100 ####[facility] [address] [place], [address] Nucleated RBC (Bld) [#/Vol] 0 10*3/uL Normal 0-5 [facility] Comment on above: Performed By: #### L 500.4050, L100.0100 ####[facility] [address] [place], [address] Platelet mean volume (Bld) [Entitic vol] 10.2 fL Normal 6.2-12.0 [facility] Comment on above: Performed By: #### L 500.4050, L100.0100 ####[facility] [address] [place], [address] Platelets (Bld) [#/Vol] 225 10*3/uL Normal 150-450 [facility] Comment on above: Performed By: #### L 500.4050, L100.0100 ####[facility] [address] [place], [address] RBC (Bld) [#/Vol] 3.96 10*6/uL Low 4.6-6.2 [facility] Comment on above: Performed By: #### L 500.4050, L100.0100 ####[facility] [address] [place], [address] RDW SD 58.7 fl High 35.1-43.9 [facility] Comment on above: Performed By: #### L 500.4050, L100.0100 ####[facility] [address] [place], [address] WBC (Bld) [#/Vol] 4.8 10*3/uL Normal 4.4-11.0 [facility] Comment on above: Performed By: #### L 500.4050, L100.0100 ####[facility] [address] [place], [address] Comprehensive Metabolic Prof ilon 08-27-2024 Albumin [Mass/Vol] 1.7 g/dL Low 3.2-5.0 [facility] Comment on above: Performed By: #### L 500.4050, L100.0100 ####[facility] [address] [place], [address] Albumin/Globulin [Mass ratio] 0.4 {ratio} Low 0.9-2.4 [facility] Comment on above: Performed By: #### L 500.4050, L100.0100 ####[facility] [address] [place], [address] ALK P 116 U/L Normal 45-117 [facility] Comment on above: Performed By: #### L 500.4050, L100.0100 ####[facility] [address] [place], [address] ALT [Catalytic activity/Vol] 12 U/L Low 16-61 [facility] Comment on above: Performed By: #### L 500.4050, L100.0100 ####[facility] [address] [place], [address] AST [Catalytic activity/Vol] 22 U/L Normal 15-37 [facility] Comment on above: Performed By: #### L 500.4050, L100.0100 ####[facility] [address] [place], [address] Bilirubin [Mass/Vol] 0.40 mg/dL Normal 0.20-1.00 [facility] Comment on above: Result Comment: For patients on eltrombopag therapy, use of Dimension [place] TBIL is not recommended. Performed By: #### L 500.4050, L100.0100 ####[facility] [address] [place], [address] BUN/CRE 14.3 RATIO Normal 10-20 [facility] Comment on above: Performed By: #### L 500.4050, L100.0100 ####[facility] [address] [place], [address] CA,Total 7.8 mg/dL Low 8.5-10.1 [facility] Comment on above: Performed By: #### L 500.4050, L100.0100 ####[facility] [address] [place], [address] Chloride [Moles/Vol] 103 mmol/L Normal 98-107 [facility] Comment on above: Performed By: #### L 500.4050, L100.0100 ####[facility] [address] [place], [address] CO2 [Moles/Vol] 31.0 mmol/L Normal 21.0-32.0 [facility] Comment on above: Performed By: #### L 500.4050, L100.0100 ####[facility] [address] [place], [address] Creatinine [Mass/Vol] 0.42 mg/dL Low 0.70-1.30 [facility] Comment on above: Result Comment: The validity of the calculated GFR GFRAA in patients over70 years has not been determined. Clinical correlation isessential. Performed By: #### L 500.4050, L100.0100 ####[facility] [address] [place], [address] ECRCL 319.61 ml/min Normal [facility] Comment on above: Performed By: #### L 500.4050, L100.0100 ####[facility] [address] [place], [address] EST GFR - AA 263 mL/min Normal >60 [facility] Comment on above: Result Comment: Afri can Ivorian GFR Calc Performed By: #### L 500.4050, L100.0100 ####[facility] [address] [place], [address] GAP 2 Low 5-15 [facility] Comment on above: Performed By: #### L 500.4050, L100.0100 ####[facility] [address] [place], [address] GFR/1.73 sq M.predicted among non-blacks MDRD (S/P/Bld) [Vol rate/Area] 218 mL/min/{1.73_m2} Normal >60 [facility] Comment on above: Result Comment: Non- GFR Calc Performed By: #### L 500.4050, L100.0100 ####[facility] [address] [place], [address] Globulin (S) [Mass/Vol] 3.9 g/dL Normal 2.2-4.2 [facility] Comment on above: Performed By: #### L 500.4050, L100.0100 ####[facility] [address] [place], [address] Glucose [Mass/Vol] 113 mg/dL High 74-106 [facility] Comment on above: Result Comment: Fast ing Glucose result from 100 to 125 mg/dLsuggests IMPAIRED HOMEOSTASIS per A.D.A. criteria. Performed By: #### L 500.4050, L100.0100 ####[facility] [address] [place], [address] Potassium [Moles/Vol] 4.0 mmol/L Normal 3.5-5.1 [facility] Comment on above: Performed By: #### L 500.4050, L100.0100 ####[facility] [address] [place], [address] Sodium [Moles/Vol] 136 mmol/L Normal 136-145 [facility] Comment on above: Performed By: #### L 500.4050, L100.0100 ####[facility] [address] [place], [address] T PROT 5.6 g/dL Low 6.4-8.2 [facility] Comment on above: Performed By: #### L 500.4050, L100.0100 ####[facility] [address] [place], [address] Urea nitrogen [Mass/Vol] 6 mg/dL Low 7-18 [facility] Comment on above: Performed By: #### L 500.4050, L100.0100 ####[facility] [address] [place], [address] CBC W/Diff, Automatedon 01-0 6-2024 Absolute Lymph 1.03 X10 3/uL Normal 0.83-4.51 [facility] Comment on above: Performed By: #### L 500.4050, L100.0100 ####[facility] [address] [place], [address] Absolute Neut 3.2 X10 3/uL Normal 2.0-7.7 [facility] Comment on above: Performed By: #### L 500.4050, L100.0100 ####[facility] [address] [place], [address] Basophils/100 WBC (Bld) 0.8 % Normal 0-1 [facility] Comment on above: Performed By: #### L 500.4050, L100.0100 ####[facility] [address] [place], [address] Eosinophils/100 WBC (Bld) 4.1 % Normal 0-5 [facility] Comment on above: Performed By: #### L 500.4050, L100.0100 ####[facility] [address] [place], [address] Erythrocyte distribution width (RBC) [Ratio] 17.5 % High 11.6-14.6 [facility] Comment on above: Performed By: #### L 500.4050, L100.0100 ####[facility] [address] [place], [address] Hematocrit (Bld) [Volume fraction] 38.3 % Low 40-54 [facility] Comment on above: Performed By: #### L 500.4050, L100.0100 ####[facility] [address] [place], [address] Hemoglobin (Bld) [Mass/Vol] 12.0 g/dL Low 13.0-16.5 [facility] Comment on above: Performed By: #### L 500.4050, L100.0100 ####[facility] [address] [place], [address] IG% 0.600 Normal 0.0-0.9 [facility] Comment on above: Result Comment: IG% - Immature Granulocytes (promyelocytes, myelocytes andmetamyelocytes) > 1% indicates that a LEFT SHIFT is Present. Performed By: #### L 500.4050, L100.0100 ####[facility] [address] [place], [address] Lymphocytes/100 WBC (Bld) 20.3 % Normal 19-41 [facility] Comment on above: Performed By: #### L 500.4050, L100.0100 ####[facility] [address] [place], [address] MCH (RBC) [Entitic mass] 28.7 pg Normal 27.0-32.0 [facility] Comment on above: Performed By: #### L 500.4050, L100.0100 ####[facility] [address] [place], [address] MCHC (RBC) [Mass/Vol] 31.3 g/dL Low 32-36 [facility] Comment on above: Performed By: #### L 500.4050, L100.0100 ####[facility] [address] [place], [address] MCV (RBC) [Entitic vol] 91.6 fL Normal 80-94 [facility] Comment on above: Performed By: #### L 500.4050, L100.0100 ####[facility] [address] [place], [address] Monocytes/100 WBC (Bld) 11.2 % High 0-10 [facility] Comment on above: Performed By: #### L 500.4050, L100.0100 ####[facility] [address] [place], [address] Neutrophils/100 WBC (Bld) 63.0 % Normal 47-70 [facility] Comment on above: Performed By: #### L 500.4050, L100.0100 ####[facility] [address] [place], [address] Nucleated RBC (Bld) [#/Vol] 0 10*3/uL Normal 0-5 [facility] Comment on above: Performed By: #### L 500.4050, L100.0100 ####[facility] [address] [place], [address] Platelet mean volume (Bld) [Entitic vol] 10.6 fL Normal 6.2-12.0 [facility] Comment on above: Performed By: #### L 500.4050, L100.0100 ####[facility] [address] [place], [address] Platelets (Bld) [#/Vol] 225 10*3/uL Normal 150-450 [facility] Comment on above: Performed By: #### L 500.4050, L100.0100 ####[facility] [address] [place], [address] RBC (Bld) [#/Vol] 4.18 10*6/uL Low 4.6-6.2 [facility] Comment on above: Performed By: #### L 500.4050, L100.0100 ####[facility] [address] [place], [address] RDW SD 58.8 fl High 35.1-43.9 [facility] Comment on above: Performed By: #### L 500.4050, L100.0100 ####[facility] [address] [place], [address] WBC (Bld) [#/Vol] 5.1 10*3/uL Normal 4.4-11.0 [facility] Comment on above: Performed By: #### L 500.4050, L100.0100 ####[facility] [address] [place], [address] Comprehensive Metabolic Prof ilon 08-26-2024 Albumin [Mass/Vol] 1.7 g/dL Low 3.2-5.0 [facility] Comment on above: Performed By: #### L 500.4050, L100.0100 ####[facility] [address] [place], [address] Albumin/Globulin [Mass ratio] 0.4 {ratio} Low 0.9-2.4 [facility] Comment on above: Performed By: #### L 500.4050, L100.0100 ####[facility] [address] [place], [address] ALK P 122 U/L High 45-117 [facility] Comment on above: Performed By: #### L 500.4050, L100.0100 ####[facility] [address] [place], [address] ALT [Catalytic activity/Vol] 10 U/L Low 16-61 [facility] Comment on above: Performed By: #### L 500.4050, L100.0100 ####[facility] [address] [place], [address] AST [Catalytic activity/Vol] 22 U/L Normal 15-37 [facility] Comment on above: Performed By: #### L 500.4050, L100.0100 ####[facility] [address] [place], [address] Bilirubin [Mass/Vol] 0.50 mg/dL Normal 0.20-1.00 [facility] Comment on above: Result Comment: For patients on eltrombopag therapy, use of Dimension [place] TBIL is not recommended. Performed By: #### L 500.4050, L100.0100 ####[facility] [address] [place], [address] BUN/CRE 13.4 RATIO Normal 10-20 [facility] Comment on above: Performed By: #### L 500.4050, L100.0100 ####[facility] [address] [place], [address] CA,Total 7.6 mg/dL Low 8.5-10.1 [facility] Comment on above: Performed By: #### L 500.4050, L100.0100 ####[facility] [address] [place], [address] Chloride [Moles/Vol] 101 mmol/L Normal 98-107 [facility] Comment on above: Performed By: #### L 500.4050, L100.0100 ####[facility] [address] [place], [address] CO2 [Moles/Vol] 33.0 mmol/L High 21.0-32.0 [facility] Comment on above: Performed By: #### L 500.4050, L100.0100 ####[facility] [address] [place], [address] Creatinine [Mass/Vol] 0.45 mg/dL Low 0.70-1.30 [facility] Comment on above: Result Comment: The validity of the calculated GFR GFRAA in patients over70 years has not been determined. Clinical correlation isessential. Performed By: #### L 500.4050, L100.0100 ####[facility] [address] [place], [address] ECRCL 298.30 ml/min Normal [facility] Comment on above: Performed By: #### L 500.4050, L100.0100 ####[facility] [address] [place], [address] EST GFR - AA 246 mL/min Normal >60 [facility] Comment on above: Result Comment: Afri can Ivorian GFR Calc Performed By: #### L 500.4050, L100.0100 ####[facility] [address] [place], [address] GAP 2 Low 5-15 [facility] Comment on above: Performed By: #### L 500.4050, L100.0100 ####[facility] [address] [place], [address] GFR/1.73 sq M.predicted among non-blacks MDRD (S/P/Bld) [Vol rate/Area] 203 mL/min/{1.73_m2} Normal >60 [facility] Comment on above: Result Comment: Non- GFR Calc Performed By: #### L 500.4050, L100.0100 ####[facility] [address] [place], [address] Globulin (S) [Mass/Vol] 4.0 g/dL Normal 2.2-4.2 [facility] Comment on above: Performed By: #### L 500.4050, L100.0100 ####[facility] [address] [place], [address] Glucose [Mass/Vol] 129 mg/dL High 74-106 [facility] Comment on above: Result Comment: Fast ing Glucose result greater than or equal to 126 mg/dLsuggests DIABETES MELLITUS per A.D.A. criteria. Performed By: #### L 500.4050, L100.0100 ####[facility] [address] [place], [address] Potassium [Moles/Vol] 4.2 mmol/L Normal 3.5-5.1 [facility] Comment on above: Performed By: #### L 500.4050, L100.0100 ####[facility] [address] [place], [address] Sodium [Moles/Vol] 136 mmol/L Normal 136-145 [facility] Comment on above: Performed By: #### L 500.4050, L100.0100 ####[facility] [address] [place], [address] T PROT 5.7 g/dL Low 6.4-8.2 [facility] Comment on above: Performed By: #### L 500.4050, L100.0100 ####[facility] [address] [place], [address] Urea nitrogen [Mass/Vol] 6 mg/dL Low 7-18 [facility] Comment on above: Performed By: #### L 500.4050, L100.0100 ####[facility] [address] [place], [address] Echo Complete W/ Contraston 08-26-2024 Echo Complete W/ Contrast Normal [facility] Urine Cultureon 08-26-2024 URC Normal [facility] Comment on above: Performed By: #### M 100.678, M100.2200, L400.0001 ####[facility] [address] [place], [address] CBC W/Diff, Automatedon 01-0 5-2025 Absolute Lymph 1.26 X10 3/uL Normal 0.83-4.51 [facility] Comment on above: Performed By: #### L 500.4050, L100.0100 ####[facility] [address] [place], [address] Absolute Neut 3.9 X10 3/uL Normal 2.0-7.7 [facility] Comment on above: Performed By: #### L 500.4050, L100.0100 ####[facility] [address] [place], [address] Basophils/100 WBC (Bld) 0.5 % Normal 0-1 [facility] Comment on above: Performed By: #### L 500.4050, L100.0100 ####[facility] [address] [place], [address] Eosinophils/100 WBC (Bld) 4.3 % Normal 0-5 [facility] Comment on above: Performed By: #### L 500.4050, L100.0100 ####[facility] [address] [place], [address] Erythrocyte distribution width (RBC) [Ratio] 17.6 % High 11.6-14.6 [facility] Comment on above: Performed By: #### L 500.4050, L100.0100 ####[facility] [address] [place], [address] Hematocrit (Bld) [Volume fraction] 40.6 % Normal 40-54 [facility] Comment on above: Performed By: #### L 500.4050, L100.0100 ####[facility] [address] [place], [address] Hemoglobin (Bld) [Mass/Vol] 12.6 g/dL Low 13.0-16.5 [facility] Comment on above: Performed By: #### L 500.4050, L100.0100 ####[facility] [address] [place], [address] IG% 0.300 Normal 0.0-0.9 [facility] Comment on above: Result Comment: IG% - Immature Granulocytes (promyelocytes, myelocytes andmetamyelocytes) > 1% indicates that a LEFT SHIFT is Present. Performed By: #### L 500.4050, L100.0100 ####[facility] [address] [place], [address] Lymphocytes/100 WBC (Bld) 20.8 % Normal 19-41 [facility] Comment on above: Performed By: #### L 500.4050, L100.0100 ####[facility] [address] [place], [address] MCH (RBC) [Entitic mass] 28.6 pg Normal 27.0-32.0 [facility] Comment on above: Performed By: #### L 500.4050, L100.0100 ####[facility] [address] [place], [address] MCHC (RBC) [Mass/Vol] 31.0 g/dL Low 32-36 [facility] Comment on above: Performed By: #### L 500.4050, L100.0100 ####[facility] [address] [place], [address] MCV (RBC) [Entitic vol] 92.1 fL Normal 80-94 [facility] Comment on above: Performed By: #### L 500.4050, L100.0100 ####[facility] [address] [place], [address] Monocytes/100 WBC (Bld) 9.2 % Normal 0-10 [facility] Comment on above: Performed By: #### L 500.4050, L100.0100 ####[facility] [address] [place], [address] Neutrophils/100 WBC (Bld) 64.9 % Normal 47-70 [facility] Comment on above: Performed By: #### L 500.4050, L100.0100 ####[facility] [address] [place], [address] Nucleated RBC (Bld) [#/Vol] 0 10*3/uL Normal 0-5 [facility] Comment on above: Performed By: #### L 500.4050, L100.0100 ####[facility] [address] [place], [address] Platelet mean volume (Bld) [Entitic vol] 10.3 fL Normal 6.2-12.0 [facility] Comment on above: Performed By: #### L 500.4050, L100.0100 ####[facility] [address] [place], [address] Platelets (Bld) [#/Vol] 251 10*3/uL Normal 150-450 [facility] Comment on above: Performed By: #### L 500.4050, L100.0100 ####[facility] [address] [place], [address] RBC (Bld) [#/Vol] 4.41 10*6/uL Low 4.6-6.2 [facility] Comment on above: Performed By: #### L 500.4050, L100.0100 ####[facility] [address] [place], [address] RDW SD 60.0 fl High 35.1-43.9 [facility] Comment on above: Performed By: #### L 500.4050, L100.0100 ####[facility] [address] [place], [address] WBC (Bld) [#/Vol] 6.1 10*3/uL Normal 4.4-11.0 [facility] Comment on above: Performed By: #### L 500.4050, L100.0100 ####[facility] [address] [place], [address] Comprehensive Metabolic Prof ilon 08-25-2024 Albumin [Mass/Vol] 1.8 g/dL Low 3.2-5.0 [facility] Comment on above: Performed By: #### L 500.4050, L100.0100 ####[facility] [address] [place], [address] Albumin/Globulin [Mass ratio] 0.4 {ratio} Low 0.9-2.4 [facility] Comment on above: Performed By: #### L 500.4050, L100.0100 ####[facility] [address] [place], [address] ALK P 134 U/L High 45-117 [facility] Comment on above: Performed By: #### L 500.4050, L100.0100 ####[facility] [address] [place], [address] ALT [Catalytic activity/Vol] 11 U/L Low 16-61 [facility] Comment on above: Performed By: #### L 500.4050, L100.0100 ####[facility] [address] [place], [address] AST [Catalytic activity/Vol] 15 U/L Normal 15-37 [facility] Comment on above: Performed By: #### L 500.4050, L100.0100 ####[facility] [address] [place], [address] Bilirubin [Mass/Vol] 0.40 mg/dL Normal 0.20-1.00 [facility] Comment on above: Result Comment: For patients on eltrombopag therapy, use of Dimension [place] TBIL is not recommended. Performed By: #### L 500.4050, L100.0100 ####[facility] [address] [place], [address] BUN/CRE 15.7 RATIO Normal 10-20 [facility] Comment on above: Performed By: #### L 500.4050, L100.0100 ####[facility] [address] [place], [address] CA,Total 8.0 mg/dL Low 8.5-10.1 [facility] Comment on above: Performed By: #### L 500.4050, L100.0100 ####[facility] [address] [place], [address] Chloride [Moles/Vol] 100 mmol/L Normal 98-107 [facility] Comment on above: Performed By: #### L 500.4050, L100.0100 ####[facility] [address] [place], [address] CO2 [Moles/Vol] 34.0 mmol/L High 21.0-32.0 [facility] Comment on above: Performed By: #### L 500.4050, L100.0100 ####[facility] [address] [place], [address] Creatinine [Mass/Vol] 0.44 mg/dL Low 0.70-1.30 [facility] Comment on above: Result Comment: The validity of the calculated GFR GFRAA in patients over70 years has not been determined. Clinical correlation isessential. Performed By: #### L 500.4050, L100.0100 ####[facility] [address] [place], [address] ECRCL 305.08 ml/min Normal [facility] Comment on above: Performed By: #### L 500.4050, L100.0100 ####[facility] [address] [place], [address] EST GFR - AA 247 mL/min Normal >60 [facility] Comment on above: Result Comment: Afri can Ivorian GFR Calc Performed By: #### L 500.4050, L100.0100 ####[facility] [address] [place], [address] GAP 3 Low 5-15 [facility] Comment on above: Performed By: #### L 500.4050, L100.0100 ####[facility] [address] [place], [address] GFR/1.73 sq M.predicted among non-blacks MDRD (S/P/Bld) [Vol rate/Area] 204 mL/min/{1.73_m2} Normal >60 [facility] Comment on above: Result Comment: Non- GFR Calc Performed By: #### L 500.4050, L100.0100 ####[facility] [address] [place], [address] Globulin (S) [Mass/Vol] 4.1 g/dL Normal 2.2-4.2 [facility] Comment on above: Performed By: #### L 500.4050, L100.0100 ####[facility] [address] [place], [address] Glucose [Mass/Vol] 114 mg/dL High 74-106 [facility] Comment on above: Result Comment: Fast ing Glucose result from 100 to 125 mg/dLsuggests IMPAIRED HOMEOSTASIS per A.D.A. criteria. Performed By: #### L 500.4050, L100.0100 ####[facility] [address] [place], [address] Potassium [Moles/Vol] 3.9 mmol/L Normal 3.5-5.1 [facility] Comment on above: Performed By: #### L 500.4050, L100.0100 ####[facility] [address] [place], [address] Sodium [Moles/Vol] 137 mmol/L Normal 136-145 [facility] Comment on above: Performed By: #### L 500.4050, L100.0100 ####[facility] [address] [place], [address] T PROT 5.9 g/dL Low 6.4-8.2 [facility] Comment on above: Performed By: #### L 500.4050, L100.0100 ####[facility] [address] [place], [address] Urea nitrogen [Mass/Vol] 7 mg/dL Normal 7-18 [facility] Comment on above: Performed By: #### L 500.4050, L100.0100 ####[facility] [address] [place], [address] BNP (brain natriuretic pepti de measurement)Ordered By: Sherley Larsen on 08-24-2024 Natriuretic peptide B (Bld) [Mass/Vol] 70.1 pg/mL 0-100 [facility] BNP,B-Type NATRIURETIC PEPTI Francisco J 08-24-2024 Natriuretic peptide B (Bld) [Mass/Vol] 70.1 pg/mL Normal 0-100 [facility] Comment on above: Performed By: #### L 503.6646 ####[facility] [address] [place], [address] CBC W/Diff, Automatedon Absolute Lymph 1.47 X10 3/uL Normal 0.83-4.51 [facility] Comment on above: Performed By: #### L 100.0100, L500.4050 ####[facility] [address] [place], [address] Absolute Neut 4.5 X10 3/uL Normal 2.0-7.7 [facility] Comment on above: Performed By: #### L 100.0100, L500.4050 ####[facility] [address] [place], [address] Basophils/100 WBC (Bld) 0.4 % Normal 0-1 [facility] Comment on above: Performed By: #### L 100.0100, L500.4050 ####[facility] [address] [place], [address] Eosinophils/100 WBC (Bld) 4.1 % Normal 0-5 [facility] Comment on above: Performed By: #### L 100.0100, L500.4050 ####[facility] [address] [place], [address] Erythrocyte distribution width (RBC) [Ratio] 17.5 % High 11.6-14.6 [facility] Comment on above: Performed By: #### L 100.0100, L500.4050 ####[facility] [address] [place], [address] Hematocrit (Bld) [Volume fraction] 38.6 % Low 40-54 [facility] Comment on above: Performed By: #### L 100.0100, L500.4050 ####[facility] [address] [place], [address] Hemoglobin (Bld) [Mass/Vol] 12.4 g/dL Low 13.0-16.5 [facility] Comment on above: Performed By: #### L 100.0100, L500.4050 ####[facility] [address] [place], [address] IG% 0.300 Normal 0.0-0.9 [facility] Comment on above: Result Comment: IG% - Immature Granulocytes (promyelocytes, myelocytes andmetamyelocytes) > 1% indicates that a LEFT SHIFT is Present. Performed By: #### L 100.0100, L500.4050 ####[facility] [address] [place], [address] Lymphocytes/100 WBC (Bld) 21.0 % Normal 19-41 [facility] Comment on above: Performed By: #### L 100.0100, L500.4050 ####[facility] [address] [place], [address] MCH (RBC) [Entitic mass] 28.4 pg Normal 27.0-32.0 [facility] Comment on above: Performed By: #### L 100.0100, L500.4050 ####[facility] [address] [place], [address] MCHC (RBC) [Mass/Vol] 32.1 g/dL Normal 32-36 [facility] Comment on above: Performed By: #### L 100.0100, L500.4050 ####[facility] [address] [place], [address] MCV (RBC) [Entitic vol] 88.5 fL Normal 80-94 [facility] Comment on above: Performed By: #### L 100.0100, L500.4050 ####[facility] [address] [place], [address] Monocytes/100 WBC (Bld) 10.0 % Normal 0-10 [facility] Comment on above: Performed By: #### L 100.0100, L500.4050 ####[facility] [address] [place], [address] Neutrophils/100 WBC (Bld) 64.2 % Normal 47-70 [facility] Comment on above: Performed By: #### L 100.0100, L500.4050 ####[facility] [address] [place], [address] Nucleated RBC (Bld) [#/Vol] 0 10*3/uL Normal 0-5 [facility] Comment on above: Performed By: #### L 100.0100, L500.4050 ####[facility] [address] [place], [address] Platelet mean volume (Bld) [Entitic vol] 10.0 fL Normal 6.2-12.0 [facility] Comment on above: Performed By: #### L 100.0100, L500.4050 ####[facility] [address] [place], [address] Platelets (Bld) [#/Vol] 220 10*3/uL Normal 150-450 [facility] Comment on above: Performed By: #### L 100.0100, L500.4050 ####[facility] [address] [place], [address] RBC (Bld) [#/Vol] 4.36 10*6/uL Low 4.6-6.2 [facility] Comment on above: Performed By: #### L 100.0100, L500.4050 ####[facility] [address] [place], [address] RDW SD 57.2 fl High 35.1-43.9 [facility] Comment on above: Performed By: #### L 100.0100, L500.4050 ####[facility] [address] [place], [address] WBC (Bld) [#/Vol] 7.0 10*3/uL Normal 4.4-11.0 [facility] Comment on above: Performed By: #### L 100.0100, L500.4050 ####[facility] [address] [place], [address] Comprehensive Metabolic Prof ilon 08-24-2024 Albumin [Mass/Vol] 1.8 g/dL Low 3.2-5.0 [facility] Comment on above: Performed By: #### L 100.0100, L500.4050 ####[facility] [address] [place], [address] Albumin/Globulin [Mass ratio] 0.5 {ratio} Low 0.9-2.4 [facility] Comment on above: Performed By: #### L 100.0100, L500.4050 ####[facility] [address] [place], [address] ALK P 149 U/L High 45-117 [facility] Comment on above: Performed By: #### L 100.0100, L500.4050 ####[facility] [address] [place], [address] ALT [Catalytic activity/Vol] 11 U/L Low 16-61 [facility] Comment on above: Performed By: #### L 100.0100, L500.4050 ####[facility] [address] [place], [address] AST [Catalytic activity/Vol] 17 U/L Normal 15-37 [facility] Comment on above: Performed By: #### L 100.0100, L500.4050 ####[facility] [address] [place], [address] Bilirubin [Mass/Vol] 0.60 mg/dL Normal 0.20-1.00 [facility] Comment on above: Result Comment: For patients on eltrombopag therapy, use of Dimension [place] TBIL is not recommended. Performed By: #### L 100.0100, L500.4050 ####[facility] [address] [place], [address] BUN/CRE 14.6 RATIO Normal 10-20 [facility] Comment on above: Performed By: #### L 100.0100, L500.4050 ####[facility] [address] [place], [address] CA,Total 7.5 mg/dL Low 8.5-10.1 [facility] Comment on above: Performed By: #### L 100.0100, L500.4050 ####[facility] [address] [place], [address] Chloride [Moles/Vol] 100 mmol/L Normal 98-107 [facility] Comment on above: Performed By: #### L 100.0100, L500.4050 ####[facility] [address] [place], [address] CO2 [Moles/Vol] 32.0 mmol/L Normal 21.0-32.0 [facility] Comment on above: Performed By: #### L 100.0100, L500.4050 ####[facility] [address] [place], [address] Creatinine [Mass/Vol] 0.48 mg/dL Low 0.70-1.30 [facility] Comment on above: Result Comment: The validity of the calculated GFR GFRAA in patients over70 years has not been determined. Clinical correlation isessential. Performed By: #### L 100.0100, L500.4050 ####[facility] [address] [place], [address] ECRCL 279.66 ml/min Normal [facility] Comment on above: Performed By: #### L 100.0100, L500.4050 ####[facility] [address] [place], [address] EST GFR - AA 226 mL/min Normal >60 [facility] Comment on above: Result Comment: Afri can Ivorian GFR Calc Performed By: #### L 100.0100, L500.4050 ####[facility] [address] [place], [address] GAP 4 Low 5-15 [facility] Comment on above: Performed By: #### L 100.0100, L500.4050 ####[facility] [address] [place], [address] GFR/1.73 sq M.predicted among non-blacks MDRD (S/P/Bld) [Vol rate/Area] 187 mL/min/{1.73_m2} Normal >60 [facility] Comment on above: Result Comment: Non- GFR Calc Performed By: #### L 100.0100, L500.4050 ####[facility] [address] [place], [address] Globulin (S) [Mass/Vol] 3.9 g/dL Normal 2.2-4.2 [facility] Comment on above: Performed By: #### L 100.0100, L500.4050 ####[facility] [address] [place], [address] Glucose [Mass/Vol] 141 mg/dL High 74-106 [facility] Comment on above: Result Comment: Fast ing Glucose result greater than or equal to 126 mg/dLsuggests DIABETES MELLITUS per A.D.A. criteria. Performed By: #### L 100.0100, L500.4050 ####[facility] [address] [place], [address] Potassium [Moles/Vol] 3.0 mmol/L Low 3.5-5.1 [facility] Comment on above: Performed By: #### L 100.0100, L500.4050 ####[facility] [address] [place], [address] Sodium [Moles/Vol] 135 mmol/L Low 136-145 [facility] Comment on above: Performed By: #### L 100.0100, L500.4050 ####[facility] [address] [place], [address] T PROT 5.7 g/dL Low 6.4-8.2 [facility] Comment on above: Performed By: #### L 100.0100, L500.4050 ####[facility] [address] [place], [address] Urea nitrogen [Mass/Vol] 7 mg/dL Normal 7-18 [facility] Comment on above: Performed By: #### L 100.0100, L500.4050 ####[facility] [address] [place], [address] L501.4020on 08-24-2024 TROPONIN-I HS 18 pg/mL Normal 3.0-78.0 [facility] Comment on above: Order Comment: Comme nts: SPECIMEN #3'TROP' Serial specimen #1, #2 or #3: 3 Result Comment: Kashif jarvis Note: New Test Units and Gender Specific Reference Ranges. For more information see Policy Stat Procedure [place] High Sensitivity Troponin (TNIH) and attachments. Performed By: #### L 501.4020 ####[facility] [address] [place], [address] Troponin IOrdered By: Sherley castorena on 08-24-2024 Troponin I 18 pg/mL 3.0-78.0 [facility] Comment on above: Please Note: New [place] t Units and Gender Specific Reference Ranges. For more information see Policy Stat Procedure [place] High Sensitivity Troponin (TNIH) and attachments. 12 Lead EKGon 08-23-2024 12 Lead EKG Normal [facility] 12 Lead EKG Normal [facility] Activated partial thrombopla stin time (aPTT) in platelet poor plasma by coagulation aOrdered By: Marychuy Millard on 08-23-2024 aPTT Coag (PPP) [Time] 29.5 s 24.1-36.2 [facility] Bilirubin Test strip Ql (U)O rdered By: Marychuy Millard on 08-23-2024 Bilirubin Ql (U) 1 mg/dL High Negative [facility] Comment on above: COLOR OF URINE MAY A FFECT DIPSTICK RESULTS. Blood cultureOrdered By: Ailin Millard on 08-23-2024 Bacteria identified Cx Nom (Bld) Positive Abnormal [facility] Bacteria identified Cx Nom (Bld) No growth in 5 days. [facility] CBC W/Diff, Automatedon Absolute Lymph 0.95 X10 3/uL Normal 0.83-4.51 [facility] Comment on above: Performed By: #### L 300.3900, L300.4310, L500.4050, L501.3620, L100.0100, L503.6005 ####[facility] [address] [place], [address] Absolute Neut 7.0 X10 3/uL Normal 2.0-7.7 [facility] Comment on above: Performed By: #### L 300.3900, L300.4310, L500.4050, L501.3620, L100.0100, L503.6005 ####[facility] [address] [place], [address] Basophils/100 WBC (Bld) 0.7 % Normal 0-1 [facility] Comment on above: Performed By: #### L 300.3900, L300.4310, L500.4050, L501.3620, L100.0100, L503.6005 ####[facility] [facility] [address] [place], [address] Eosinophils/100 WBC (Bld) 1.4 % Normal 0-5 [facility] Comment on above: Performed By: #### L 300.3900, L300.4310, L500.4050, L501.3620, L100.0100, L503.6005 ####[facility] [address] [place], [address] Erythrocyte distribution width (RBC) [Ratio] 17.9 % High 11.6-14.6 [facility] Comment on above: Performed By: #### L 300.3900, L300.4310, L500.4050, L501.3620, L100.0100, L503.6005 ####[facility] [address] [place], [address] Hematocrit (Bld) [Volume fraction] 48.0 % Normal 40-54 [facility] Comment on above: Performed By: #### L 300.3900, L300.4310, L500.4050, L501.3620, L100.0100, L503.6005 ####[facility] [address] [place], [address] Hemoglobin (Bld) [Mass/Vol] 15.5 g/dL Normal 13.0-16.5 [facility] Comment on above: Performed By: #### L 300.3900, L300.4310, L500.4050, L501.3620, L100.0100, L503.6005 ####[facility] [address] [place], [address] IG% 0.300 Normal 0.0-0.9 [facility] Comment on above: Result Comment: IG% - Immature Granulocytes (promyelocytes, myelocytes andmetamyelocytes) > 1% indicates that a LEFT SHIFT is Present. Performed By: #### L 300.3900, L300.4310, L500.4050, L501.3620, L100.0100, L503.6005 ####[facility] [address] [place], [address] Lymphocytes/100 WBC (Bld) 10.9 % Low 19-41 [facility] Comment on above: Performed By: #### L 300.3900, L300.4310, L500.4050, L501.3620, L100.0100, L503.6005 ####[facility] [address] [place], [address] MCH (RBC) [Entitic mass] 28.9 pg Normal 27.0-32.0 [facility] Comment on above: Performed By: #### L 300.3900, L300.4310, L500.4050, L501.3620, L100.0100, L503.6005 ####[facility] [address] [place], [address] MCHC (RBC) [Mass/Vol] 32.3 g/dL Normal 32-36 [facility] Comment on above: Performed By: #### L 300.3900, L300.4310, L500.4050, L501.3620, L100.0100, L503.6005 ####[facility] [address] [place], [address] MCV (RBC) [Entitic vol] 89.4 fL Normal 80-94 [facility] Comment on above: Performed By: #### L 300.3900, L300.4310, L500.4050, L501.3620, L100.0100, L503.6005 ####[facility] [address] [place], [address] Monocytes/100 WBC (Bld) 6.8 % Normal 0-10 [facility] Comment on above: Performed By: #### L 300.3900, L300.4310, L500.4050, L501.3620, L100.0100, L503.6005 ####[facility] [address] [place], [address] Neutrophils/100 WBC (Bld) 79.9 % High 47-70 [facility] Comment on above: Performed By: #### L 300.3900, L300.4310, L500.4050, L501.3620, L100.0100, L503.6005 ####[facility] [address] [place], [address] Nucleated RBC (Bld) [#/Vol] 0 10*3/uL Normal 0-5 [facility] Comment on above: Performed By: #### L 300.3900, L300.4310, L500.4050, L501.3620, L100.0100, L503.6005 ####[facility] [address] [place], [address] Platelet mean volume (Bld) [Entitic vol] 10.6 fL Normal 6.2-12.0 [facility] Comment on above: Performed By: #### L 300.3900, L300.4310, L500.4050, L501.3620, L100.0100, L503.6005 ####[facility] [address] [place], [address] Platelets (Bld) [#/Vol] 265 10*3/uL Normal 150-450 [facility] Comment on above: Performed By: #### L 300.3900, L300.4310, L500.4050, L501.3620, L100.0100, L503.6005 ####[facility] [address] [place], [address] RBC (Bld) [#/Vol] 5.37 10*6/uL Normal 4.6-6.2 [facility] Comment on above: Performed By: #### L 300.3900, L300.4310, L500.4050, L501.3620, L100.0100, L503.6005 ####[facility] [address] [place], [address] RDW SD 57.7 fl High 35.1-43.9 [facility] Comment on above: Performed By: #### L 300.3900, L300.4310, L500.4050, L501.3620, L100.0100, L503.6005 ####[facility] [address] [place], [address] WBC (Bld) [#/Vol] 8.7 10*3/uL Normal 4.4-11.0 [facility] Comment on above: Performed By: #### L 300.3900, L300.4310, L500.4050, L501.3620, L100.0100, L503.6005 ####[facility] [address] [place], [address] CPK Total, Creatine Kinaseon 08-23-2024 CPK TOTAL 48 U/L Normal 39-308 [facility] Comment on above: Order Comment: Blood cultures x2, from two different sites Performed By: #### L 300.3900, L300.4310, L500.4050, L501.3620, L100.0100, L503.6005 ####[facility] [address] [place], [address] CTA Chest W/WO Contraston CTA Chest W/WO Contrast Normal [facility] Chest 1 View (Portable)on Chest 1 View (Portable) Normal [facility] Comprehensive Metabolic Prof ilon 08-23-2024 Albumin [Mass/Vol] 2.4 g/dL Low 3.2-5.0 [facility] Comment on above: Order Comment: Blood cultures x2, from two different sites Performed By: #### L 300.3900, L300.4310, L500.4050, L501.3620, L100.0100, L503.6005 ####[facility] [address] [place], [address] Albumin/Globulin [Mass ratio] 0.5 {ratio} Low 0.9-2.4 [facility] Comment on above: Order Comment: Blood cultures x2, from two different sites Performed By: #### L 300.3900, L300.4310, L500.4050, L501.3620, L100.0100, L503.6005 ####[facility] [address] [place], [address] ALK P 208 U/L High 45-117 [facility] Comment on above: Order Comment: Blood cultures x2, from two different sites Performed By: #### L 300.3900, L300.4310, L500.4050, L501.3620, L100.0100, L503.6005 ####[facility] [address] [place], [address] ALT [Catalytic activity/Vol] 11 U/L Low 16-61 [facility] Comment on above: Order Comment: Blood cultures x2, from two different sites Performed By: #### L 300.3900, L300.4310, L500.4050, L501.3620, L100.0100, L503.6005 ####[facility] [address] [place], [address] AST [Catalytic activity/Vol] 34 U/L Normal 15-37 [facility] Comment on above: Order Comment: Blood cultures x2, from two different sites Result Comment: Slig ht Hemolysis, Result may be falsely increased. Performed By: #### L 300.3900, L300.4310, L500.4050, L501.3620, L100.0100, L503.6005 ####[facility] [address] [place], [address] Bilirubin [Mass/Vol] 1.10 mg/dL High 0.20-1.00 [facility] Comment on above: Order Comment: Blood cultures x2, from two different sites Result Comment: For patients on eltrombopag therapy, use of Dimension [place] TBIL is not recommended. Performed By: #### L 300.3900, L300.4310, L500.4050, L501.3620, L100.0100, L503.6005 ####[facility] [address] [place], [address] BUN/CRE 7.4 RATIO Low 10-20 [facility] Comment on above: Order Comment: Blood cultures x2, from two different sites Performed By: #### L 300.3900, L300.4310, L500.4050, L501.3620, L100.0100, L503.6005 ####[facility] [address] [place], [address] CA,Total 8.2 mg/dL Low 8.5-10.1 [facility] Comment on above: Order Comment: Blood cultures x2, from two different sites Performed By: #### L 300.3900, L300.4310, L500.4050, L501.3620, L100.0100, L503.6005 ####[facility] [address] [place], [address] Chloride [Moles/Vol] 92 mmol/L Low 98-107 [facility] Comment on above: Order Comment: Blood cultures x2, from two different sites Performed By: #### L 300.3900, L300.4310, L500.4050, L501.3620, L100.0100, L503.6005 ####[facility] [address] [place], [address] CO2 [Moles/Vol] 30.0 mmol/L Normal 21.0-32.0 [facility] Comment on above: Order Comment: Blood cultures x2, from two different sites Performed By: #### L 300.3900, L300.4310, L500.4050, L501.3620, L100.0100, L503.6005 ####[facility] [address] [place], [address] Creatinine [Mass/Vol] 0.82 mg/dL Normal 0.70-1.30 [facility] Comment on above: Order Comment: Blood cultures x2, from two different sites Result Comment: The validity of the calculated GFR GFRAA in patients over70 years has not been determined. Clinical correlation isessential. Performed By: #### L 300.3900, L300.4310, L500.4050, L501.3620, L100.0100, L503.6005 ####[facility] [address] [place], [address] ECRCL 164.22 ml/min Normal [facility] Comment on above: Order Comment: Blood cultures x2, from two different sites Performed By: #### L 300.3900, L300.4310, L500.4050, L501.3620, L100.0100, L503.6005 ####[facility] [address] [place], [address] EST GFR - AA 123 mL/min Normal >60 [facility] Comment on above: Order Comment: Blood cultures x2, from two different sites Result Comment: Afri can Ivorian GFR Calc Performed By: #### L 300.3900, L300.4310, L500.4050, L501.3620, L100.0100, L503.6005 ####[facility] [address] [place], [address] GAP 9 Normal 5-15 [facility] Comment on above: Order Comment: Blood cultures x2, from two different sites Performed By: #### L 300.3900, L300.4310, L500.4050, L501.3620, L100.0100, L503.6005 ####[facility] [address] [place], [address] GFR/1.73 sq M.predicted among non-blacks MDRD (S/P/Bld) [Vol rate/Area] 101 mL/min/{1.73_m2} Normal >60 [facility] Comment on above: Order Comment: Blood cultures x2, from two different sites Result Comment: Non- GFR Calc Performed By: #### L 300.3900, L300.4310, L500.4050, L501.3620, L100.0100, L503.6005 ####[facility] [address] [place], [address] Globulin (S) [Mass/Vol] 5.3 g/dL High 2.2-4.2 [facility] Comment on above: Order Comment: Blood cultures x2, from two different sites Performed By: #### L 300.3900, L300.4310, L500.4050, L501.3620, L100.0100, L503.6005 ####[facility] [address] [place], [address] Glucose [Mass/Vol] 165 mg/dL High 74-106 [facility] Comment on above: Order Comment: Blood cultures x2, from two different sites Result Comment: Fast ing Glucose result greater than or equal to 126 mg/dLsuggests DIABETES MELLITUS per A.D.A. criteria. Performed By: #### L 300.3900, L300.4310, L500.4050, L501.3620, L100.0100, L503.6005 ####[facility] [address] [place], [address] Potassium [Moles/Vol] 4.7 mmol/L Normal 3.5-5.1 [facility] Comment on above: Order Comment: Blood cultures x2, from two different sites Result Comment: Slig ht Hemolysis, Result may be falsely increased. Performed By: #### L 300.3900, L300.4310, L500.4050, L501.3620, L100.0100, L503.6005 ####[facility] [address] [place], [address] Sodium [Moles/Vol] 132 mmol/L Low 136-145 [facility] Comment on above: Order Comment: Blood cultures x2, from two different sites Performed By: #### L 300.3900, L300.4310, L500.4050, L501.3620, L100.0100, L503.6005 ####[facility] [address] [place], [address] T PROT 7.7 g/dL Normal 6.4-8.2 [facility] Comment on above: Order Comment: Blood cultures x2, from two different sites Performed By: #### L 300.3900, L300.4310, L500.4050, L501.3620, L100.0100, L503.6005 ####[facility] [address] [place], [place], [address] Urea nitrogen [Mass/Vol] 6 mg/dL Low 7-18 [facility] Comment on above: Order Comment: Blood cultures x2, from two different sites Performed By: #### L 300.3900, L300.4310, L500.4050, L501.3620, L100.0100, L503.6005 ####[facility] [address] [place], [place], [id number] Emergency Department Summary on 08-23-2024 Emergency Department Summary Normal [facility] H AND P Exam - Hospitaliston 08-23-2024 H&P Exam - Hospitalist Normal [facility] Influenza virus A and B and SARS-CoV-2 (COVID-19) and Respiratory syncytial virus RNAOrdered By: Marychuy Millard on 08-23-2024 SARS-CoV-2 (COVID-19) RNA ROBBY+probe Ql (Unsp spec) [facility] International normalized rat io (INR) calculationOrdered By: Marychuy Millard on 08-23-2024 INR Coag (Bld) [Relative time] 1.2 {INR} [facility] Ketones Test strip Ql (U)Ord ered By: Marychuy Millard on 08-23-2024 Ketones Ql (U) 5 mg/dl High Negative [facility] L501.4020on 08-23-2024 TROPONIN-I HS 17 pg/mL Normal 3.0-78.0 [facility] Comment on above: Order Comment: Comme nts: SPECIMEN #2'TROP' Serial specimen #1, #2 or #3: 2 Result Comment: Kashif jarvis Note: New Test Units and Gender Specific Reference Ranges. For more information see Policy Stat Procedure [place] High Sensitivity Troponin (TNIH) and attachments. Performed By: #### L 501.4020 ####[facility] [address] [place], [address] TROPONIN-I HS 16 pg/mL Normal 3.0-78.0 [facility] Comment on above: Order Comment: 'TROP ' Serial specimen #1, #2 or #3: 1 Result Comment: Kashif jarvis Note: New Test Units and Gender Specific Reference Ranges. For more information see Policy Stat Procedure [place] High Sensitivity Troponin (TNIH) and attachments. Performed By: #### L 501.4020, L501.5200 ####[facility] [address] [place], [address] Lactic Acidon 08-23-2024 Lactate [Moles/Vol] 2.6 mmol/L Invalid Interpretation Code 0.4-1.9 [facility] Comment on above: Result Comment: Crit ical Result(s) Called at: 17:18:15 08/23/2024 by: MICHELA. Results read back by Marcell Katz Performed By: #### L 503.6005 ####[facility] [address] [place], [address] Lactate [Moles/Vol] 5.6 mmol/L Invalid Interpretation Code 0.4-1.9 [facility] Comment on above: Order Comment: Y Result Comment: Crit ical Result(s) Called at: 12:54:39 08/23/2024 by: Zbigniew Sigala. Results read back by robbin. Performed By: #### L 300.3900, L300.4310, L500.4050, L501.3620, L100.0100, L503.6005 ####[facility] [address] [place], [place], [address] Lactic acid measurementOrder ed By: Marychuy Millard on 08-23-2024 Lactate [Moles/Vol] 2.6 mmol/L High 0.4-2.0 [facility] Comment on above: Critical Result(s) C alled at: 17:18:15 08/23/2024 by: TONO HENDRIX. Results read back by Marcell Katz M100.678on 08-23-2024 M100.678 Pending SARS-CoV-2 (COVID 19) Negative INFLUENZA A Negative INFLUENZA B Negative RSV PCR Negative Normal [facility] Comment on above: Performed By: #### M 100.678, M100.2200, L400.0001 ####[facility] [address] [place], [place], [address] Magnesiumon 08-23-2024 Magnesium [Mass/Vol] 1.7 mg/dL Normal 1.6-2.6 [facility] Comment on above: Order Comment: 'TROP ' Serial specimen #1, #2 or #3: 1 Performed By: #### L 501.4020, L501.5200 ####[facility] [address] [place], [place], [address] Magnesium measurementOrdered By: Sherley Larsen on 08-23-2024 Magnesium [Mass/Vol] 1.7 mg/dL 1.6-2.6 [facility] Microscopic analysis of urin e for red blood cells (RBC)Ordered By: Marychuy Millard on 08-23-2024 Microscopic analysis of urine for red blood cells (RBC) 0 SEEN /hpf 0-5 [facility] Mucus LM Ql (Urine sed)Order ed By: Marychuy Millard on 08-23-2024 Mucus Ql (Urine sed) 0 SEEN /hpf [facility] Nitrite Test strip Ql (U)Ord ered By: Marychuy Millard on 08-23-2024 Nitrite Ql (U) Positive High Negative [facility] Partial Thromboplast Timeon 08-23-2024 aPTT Coag (Bld) [Time] 29.5 s Normal 24.1-36.2 [facility] Comment on above: Performed By: #### L 300.3900, L300.4310, L500.4050, L501.3620, L100.0100, L503.6005 ####[facility] [address] [place], [place], [address] Protein Test strip Ql (U)Ord ered By: Marychuy Millard on 08-23-2024 Protein Ql (U) 30 mg/dl High Negative [facility] Prothrombin Time w/INRon INR Coag (PPP) [Relative time] 1.2 {INR} Normal [facility] Comment on above: Performed By: #### L 300.3900, L300.4310, L500.4050, L501.3620, L100.0100, L503.6005 ####[facility] [address] [place], [address] PT Coag (PPP) [Time] 15.8 s High 11.7-14.9 [facility] Comment on above: Performed By: #### L 300.3900, L300.4310, L500.4050, L501.3620, L100.0100, L503.6005 ####[facility] [address] [place], [place], [address] Prothrombin timeOrdered By: Marychuy Millard on 08-23-2024 PT Coag (PPP) [Time] 15.8 s High 11.7-14.9 [facility] Squamous epithelial cells de tection in urine sediment by light microscopyOrdered By: Marychuy Millard on 08-23-2024 Epithelial cells.squamous LM Ql (Urine sed) 0-5 SEEN /hpf 0-5 [facility] Total creatine kinase measur ementOrdered By: Marychuy Millard on 08-23-2024 CK [Catalytic activity/Vol] 48 U/L 39-308 [facility] Urinalysis, Completeon 08-23 EPI,SQUAMOUS 0-5 SEEN Normal 0-5 [facility] Comment on above: Order Comment: LEFTY TER SPECIMEN Performed By: #### M 100.678, M100.2200, L400.0001 ####[facility] [address] [place], [address] WBC 25-50 SEEN Normal 0-5 [facility] Comment on above: Order Comment: LEFTY TER SPECIMEN Performed By: #### M 100.678, M100.2200, L400.0001 ####[facility] [address] [place], [address] BACTERIA 2+ /hpf Normal None Seen [facility] Comment on above: Order Comment: LEFTY TER SPECIMEN Performed By: #### M 100.678, M100.2200, L400.0001 ####[facility] [address] [place], [address] Mucus Ql (Urine sed) 0 SEEN Normal [facility] Comment on above: Order Comment: LEFTY TER SPECIMEN Performed By: #### M 100.678, M100.2200, L400.0001 ####[facility] [address] [place], [address] RBC 0 SEEN Normal 0-5 [facility] Comment on above: Order Comment: LEFTY TER SPECIMEN Performed By: #### M 100.678, M100.2200, L400.0001 ####[facility] [address] [place], [address] Urine clarityOrdered By: Ailin Millard on 08-23-2024 Clarity (U) Sl. Cloudy Clear [facility] Urine color determinationOrd ered By: Marychuy Millard on 08-23-2024 Color (U) Yellow Yellow [facility] Urine cultureOrdered By: Ailin Millard on 08-23-2024 Bacteria identified Cx Nom (U) ESBL Klebsiella pneumoniae pne Abnormal [facility] Urine glucose detectionOrder ed By: Marychuy Millard on 08-23-2024 Glucose Ql (U) Normal mg/dl Normal [facility] Urine leukocyte esterase det ection by dipstickOrdered By: Marychuy Millard on 08-23-2024 Leukocyte esterase Test strip Ql (U) 500 /ul High Negative [facility] Urine pHOrdered By: Marychuy massey on 08-23-2024 pH (U) 6.0 [pH] 5.0 - 8.0 [facility] Urine sediment bacteria coun t by microscopy (number/high power field)Ordered By: Marychuy Millard on 08-23-2024 Bacteria LM.HPF (Urine sed) [#/Area] 2 /[HPF] None Seen [facility] Urine specific gravity measu rementOrdered By: Marychuy Millard on 08-23-2024 Specific gravity (U) [Rel density] 1.015 1.002-1.030 [facility] Urine urobilinogen measureme ntOrdered By: Marychuy Millard on 08-23-2024 Urobilinogen Ql (U) 8 mg/dl High Normal [facility] White blood cell countOrdere d By: Marychuy Millard on 08-23-2024 White blood cell count 25-50 SEEN /hpf 0-5 [facility] 12 Lead EKGon 08-22-2024 12 Lead EKG Normal [facility] Urine Cultureon 05-11-2024 URC Normal [facility] Comment on above: Performed By: #### L 400.2010, ####[facility] [address] [place], [address] Urinalysis, Routine (Dipstic k)on 05-08-2024 BILIRUBIN URINE Negative Normal Negative [facility] Comment on above: Order Comment: Urine , Random Performed By: #### L 400.2010, ####[facility] [address] [place], [address] Clarity (U) Clear Normal Clear [facility] Comment on above: Order Comment: Urine , Random Performed By: #### L 400.2010, ####[facility] [address] [place], [address] Color (U) Yellow Normal Yellow [facility] Comment on above: Order Comment: Urine , Random Performed By: #### L 400.2010, ####[facility] [address] [place], [address] GLUCOSE, UR Normal Normal Normal [facility] Comment on above: Order Comment: Urine , Random Performed By: #### L 400.2010, ####[facility] [address] [place], [address] KETONE UR Negative Normal Negative [facility] Comment on above: Order Comment: Urine , Random Performed By: #### L 400.2010, ####[facility] [address] [place], [address] [place] ESTERASE 500 /ul Abnormal Negative [facility] Comment on above: Order Comment: Urine , Random Performed By: #### L 400.2010, ####[facility] [address] [place], [address] Nitrite Ql (U) Positive Abnormal Negative [facility] Comment on above: Order Comment: Urine , Random Performed By: #### L 400.2010, ####[facility] [address] [place], [address] OCCULT BLOOD-UR Negative Normal Negative [facility] Comment on above: Order Comment: Urine , Random Performed By: #### L 400.2010, ####[facility] [address] [place], [address] pH UR 7.0 Normal 5.0 - 8.0 [facility] Comment on above: Order Comment: Urine , Random Performed By: #### L 400.2010, ####[facility] [address] [place], [address] PROT DIPSTX Negative Normal Negative [facility] Comment on above: Order Comment: Urine , Random Performed By: #### L 400.2010, ####[facility] [address] [place], [address] SP.GR. DIPSTX 1.010 Normal 1.002-1.030 [facility] Comment on above: Order Comment: Urine , Random Performed By: #### L 400.2010, ####[facility] [address] [place], [address] UROBILI 1 mg/dl Abnormal Normal [facility] Comment on above: Order Comment: Urine , Random Performed By: #### L 400.2010, ####[facility] [address] [place], [address] CBC W/Diff, Automatedon 04-21-2023 Absolute Lymph 1.31 X10 3/uL Normal 0.83-4.51 [facility] Comment on above: Performed By: #### L 501.9910, L500.4100, L501.1400, L100.0100, L500.4050, L501.9520 ####[facility] [address] [place], [address] Absolute Neut 5.7 X10 3/uL Normal 2.0-7.7 [facility] Comment on above: Performed By: #### L 501.9910, L500.4100, L501.1400, L100.0100, L500.4050, L501.9520 ####[facility] [address] [place], [address] Basophils/100 WBC (Bld) 0.4 % Normal 0-1 [facility] Comment on above: Performed By: #### L 501.9910, L500.4100, L501.1400, L100.0100, L500.4050, L501.9520 ####[facility] [address] [place], [address] Eosinophils/100 WBC (Bld) 2.2 % Normal 0-5 [facility] Comment on above: Performed By: #### L 501.9910, L500.4100, L501.1400, L100.0100, L500.4050, L501.9520 ####[facility] [address] [place], [address] Erythrocyte distribution width (RBC) [Ratio] 13.4 % Normal 11.6-14.6 [facility] Comment on above: Performed By: #### L 501.9910, L500.4100, L501.1400, L100.0100, L500.4050, L501.9520 ####[facility] [address] [place], [address] Hematocrit (Bld) [Volume fraction] 43.7 % Normal 40-54 [facility] Comment on above: Performed By: #### L 501.9910, L500.4100, L501.1400, L100.0100, L500.4050, L501.9520 ####[facility] [address] [place], [address] Hemoglobin (Bld) [Mass/Vol] 13.8 g/dL Normal 13.0-16.5 [facility] Comment on above: Performed By: #### L 501.9910, L500.4100, L501.1400, L100.0100, L500.4050, L501.9520 ####[facility] [address] [place], [address] IG% 0.500 Normal 0.0-0.9 [facility] Comment on above: Result Comment: IG% - Immature Granulocytes (promyelocytes, myelocytes andmetamyelocytes) > 1% indicates that a LEFT SHIFT is Present. Performed By: #### L 501.9910, L500.4100, L501.1400, L100.0100, L500.4050, L501.9520 ####[facility] [address] [place], [address] Lymphocytes/100 WBC (Bld) 17.2 % Low 19-41 [facility] Comment on above: Performed By: #### L 501.9910, L500.4100, L501.1400, L100.0100, L500.4050, L501.9520 ####[facility] [address] [place], [address] MCH (RBC) [Entitic mass] 28.7 pg Normal 27.0-32.0 [facility] Comment on above: Performed By: #### L 501.9910, L500.4100, L501.1400, L100.0100, L500.4050, L501.9520 ####[facility] [address] [place], [address] MCHC (RBC) [Mass/Vol] 31.6 g/dL Low 32-36 [facility] Comment on above: Performed By: #### L 501.9910, L500.4100, L501.1400, L100.0100, L500.4050, L501.9520 ####[facility] [address] [place], [address] MCV (RBC) [Entitic vol] 90.9 fL Normal 80-94 [facility] Comment on above: Performed By: #### L 501.9910, L500.4100, L501.1400, L100.0100, L500.4050, L501.9520 ####[facility] [address] [place], [address] Monocytes/100 WBC (Bld) 5.2 % Normal 0-10 [facility] Comment on above: Performed By: #### L 501.9910, L500.4100, L501.1400, L100.0100, L500.4050, L501.9520 ####[facility] [address] [place], [address] Neutrophils/100 WBC (Bld) 74.5 % High 47-70 [facility] Comment on above: Performed By: #### L 501.9910, L500.4100, L501.1400, L100.0100, L500.4050, L501.9520 ####[facility] [address] [place], [address] Nucleated RBC (Bld) [#/Vol] 0 10*3/uL Normal 0-5 [facility] Comment on above: Performed By: #### L 501.9910, L500.4100, L501.1400, L100.0100, L500.4050, L501.9520 ####[facility] [address] [place], [address] Platelet mean volume (Bld) [Entitic vol] 10.2 fL Normal 6.2-12.0 [facility] Comment on above: Performed By: #### L 501.9910, L500.4100, L501.1400, L100.0100, L500.4050, L501.9520 ####[facility] [address] [place], [address] Platelets (Bld) [#/Vol] 313 10*3/uL Normal 150-450 [facility] Comment on above: Performed By: #### L 501.9910, L500.4100, L501.1400, L100.0100, L500.4050, L501.9520 ####[facility] [address] [place], [address] RBC (Bld) [#/Vol] 4.81 10*6/uL Normal 4.6-6.2 [facility] Comment on above: Performed By: #### L 501.9910, L500.4100, L501.1400, L100.0100, L500.4050, L501.9520 ####[facility] [address] [place], [address] RDW SD 44.7 fl High 35.1-43.9 [facility] Comment on above: Performed By: #### L 501.9910, L500.4100, L501.1400, L100.0100, L500.4050, L501.9520 ####[facility] [address] [place], [address] WBC (Bld) [#/Vol] 7.6 10*3/uL Normal 4.4-11.0 [facility] Comment on above: Performed By: #### L 501.9910, L500.4100, L501.1400, L100.0100, L500.4050, L501.9520 ####[facility] [address] [place], [address] Comprehensive Metabolic Prof [facility] 05-02-2024 Albumin [Mass/Vol] 2.7 g/dL Low 3.2-5.0 [facility] Comment on above: Performed By: #### L 501.9910, L500.4100, L501.1400, L100.0100, L500.4050, L501.9520 ####[facility] [address] [place], [address] Albumin/Globulin [Mass ratio] 0.6 {ratio} Low 0.9-2.4 [facility] Comment on above: Performed By: #### L 501.9910, L500.4100, L501.1400, L100.0100, L500.4050, L501.9520 ####[facility] [address] [place], [address] ALK P 170 U/L High 45-117 [facility] Comment on above: Performed By: #### L 501.9910, L500.4100, L501.1400, L100.0100, L500.4050, L501.9520 ####[facility] [address] [place], [address] ALT [Catalytic activity/Vol] 11 U/L Low 16-61 [facility] Comment on above: Performed By: #### L 501.9910, L500.4100, L501.1400, L100.0100, L500.4050, L501.9520 ####[facility] [address] [place], [address] AST [Catalytic activity/Vol] 18 U/L Normal 15-37 [facility] Comment on above: Performed By: #### L 501.9910, L500.4100, L501.1400, L100.0100, L500.4050, L501.9520 ####[facility] [address] [place], [address] Bilirubin [Mass/Vol] 0.50 mg/dL Normal 0.20-1.00 [facility] Comment on above: Result Comment: For patients on eltrombopag therapy, use of Dimension [place] TBIL is not recommended. Performed By: #### L 501.9910, L500.4100, L501.1400, L100.0100, L500.4050, L501.9520 ####[facility] [address] [place], [address] BUN/CRE 7.9 RATIO Low 10-20 [facility] Comment on above: Performed By: #### L 501.9910, L500.4100, L501.1400, L100.0100, L500.4050, L501.9520 ####[facility] [address] [place], [address] CA,Total 8.3 mg/dL Low 8.5-10.1 [facility] Comment on above: Performed By: #### L 501.9910, L500.4100, L501.1400, L100.0100, L500.4050, L501.9520 ####[facility] [address] [place], [address] Chloride [Moles/Vol] 100 mmol/L Normal 98-107 [facility] Comment on above: Performed By: #### L 501.9910, L500.4100, L501.1400, L100.0100, L500.4050, L501.9520 ####[facility] [address] [place], [address] CO2 [Moles/Vol] 29.0 mmol/L Normal 21.0-32.0 [facility] Comment on above: Performed By: #### L 501.9910, L500.4100, L501.1400, L100.0100, L500.4050, L501.9520 ####[facility] [address] [place], [address] Creatinine [Mass/Vol] 0.76 mg/dL Normal 0.70-1.30 [facility] Comment on above: Result Comment: The validity of the calculated GFR GFRAA in patients over70 years has not been determined. Clinical correlation isessential. Performed By: #### L 501.9910, L500.4100, L501.1400, L100.0100, L500.4050, L501.9520 ####[facility] [address] [place], [address] EST GFR - AA 134 mL/min Normal >60 [facility] Comment on above: Result Comment: Afri can Ivorian GFR Calc Performed By: #### L 501.9910, L500.4100, L501.1400, L100.0100, L500.4050, L501.9520 ####[facility] [address] [place], [address] GAP 9 Normal 5-15 [facility] Comment on above: Performed By: #### L 501.9910, L500.4100, L501.1400, L100.0100, L500.4050, L501.9520 ####[facility] [address] [place], [address] GFR/1.73 sq M.predicted among non-blacks MDRD (S/P/Bld) [Vol rate/Area] 111 mL/min/{1.73_m2} Normal >60 [facility] Comment on above: Result Comment: Non- GFR Calc Performed By: #### L 501.9910, L500.4100, L501.1400, L100.0100, L500.4050, L501.9520 ####[facility] [address] [place], [address] Globulin (S) [Mass/Vol] 4.5 g/dL High 2.2-4.2 [facility] Comment on above: Performed By: #### L 501.9910, L500.4100, L501.1400, L100.0100, L500.4050, L501.9520 ####[facility] [address] [place], [address] Glucose [Mass/Vol] 148 mg/dL High 74-106 [facility] Comment on above: Result Comment: Fast ing Glucose result greater than or equal to 126 mg/dLsuggests DIABETES MELLITUS per A.D.A. criteria. Performed By: #### L 501.9910, L500.4100, L501.1400, L100.0100, L500.4050, L501.9520 ####[facility] [address] [place], [address] Potassium [Moles/Vol] 4.4 mmol/L Normal 3.5-5.1 [facility] Comment on above: Performed By: #### L 501.9910, L500.4100, L501.1400, L100.0100, L500.4050, L501.9520 ####[facility] [address] [place], [address] Sodium [Moles/Vol] 138 mmol/L Normal 136-145 [facility] Comment on above: Performed By: #### L 501.9910, L500.4100, L501.1400, L100.0100, L500.4050, L501.9520 ####[facility] [address] [place], [address] T PROT 7.2 g/dL Normal 6.4-8.2 [facility] Comment on above: Performed By: #### L 501.9910, L500.4100, L501.1400, L100.0100, L500.4050, L501.9520 ####[facility] [address] [place], [address] Urea nitrogen [Mass/Vol] 6 mg/dL Low 7-18 [facility] Comment on above: Performed By: #### L 501.9910, L500.4100, L501.1400, L100.0100, L500.4050, L501.9520 ####[facility] [address] [place], [address] Lipid Profileon 05-02-2024 Cholesterol [Mass/Vol] 149 mg/dL Normal 200 [facility] Comment on above: Result Comment: <200 mg/dL Desirable 200-240 mg/dL Borderline >240 mg/dL High Risk Performed By: #### L 501.9910, L500.4100, L501.1400, L100.0100, L500.4050, L501.9520 ####[facility] [address] [place], [address] Cholesterol in HDL [Mass/Vol] 37 mg/dL Low [facility] Comment on above: Result Comment: The drugs N-Acetylcysteine and Metamizole may falselydepress this assay. Reference Range HDL <40 mg/dL Low HDL Cholesterol HDL >or= 60 mg/dL High HDL Cholesterol Performed By: #### L 501.9910, L500.4100, L501.1400, L100.0100, L500.4050, L501.9520 ####[facility] [address] [place], [address] Cholesterol in LDL [Mass/Vol] 93 mg/dL Normal 0-130 [facility] Comment on above: Performed By: #### L 501.9910, L500.4100, L501.1400, L100.0100, L500.4050, L501.9520 ####[facility] [address] [place], [address] Cholesterol in VLDL [Mass/Vol] 19 mg/dL Normal 5-40 [facility] Comment on above: Performed By: #### L 501.9910, L500.4100, L501.1400, L100.0100, L500.4050, L501.9520 ####[facility] [address] [place], [address] Triglyceride [Mass/Vol] 93 mg/dL Normal [facility] Comment on above: Result Comment: The drugs N-Acetylcysteine and Metamizole may falselydepress this assay.Serum Triglycerides Reference Interval Normal <150 mg/dL Borderline high 150 - 199 mg/dL High 200 - 499 mg/dL Very High > or = 500 mg/dL Performed By: #### L 501.9910, L500.4100, L501.1400, L100.0100, L500.4050, L501.9520 ####[facility] [address] [place], [address] PSA,Total - Annual Screenon 05-02-2024 PSA,TOT SCREEN < 0.01 Normal 0.00-4.00 [facility] Comment on above: Result Comment: This test was performed using the TPSA assay method for the[employer] chemistry system. Values obtained with differentassay methods cannot be used interchangably.When changing PSA assays in the course of monitoring apatient, additional sequential testing should be carriedout to confirm baseline values. Performed By: #### L 501.9910, L500.4100, L501.1400, L100.0100, L500.4050, L501.9520 ####[facility] [address] [place], [address] Thyroid Stim Hormone (TSH)on 05-02-2024 TSH 2.290 uIU/mL Normal 0.358-3.740 [facility] Comment on above: Performed By: #### L 501.9910, L500.4100, L501.1400, L100.0100, L500.4050, L501.9520 ####[facility] [address] [place], [address] Uric Acidon 05-02-2024 URIC 5.0 mg/dL Normal 3.5-7.2 [facility] Comment on above: Result Comment: The drugs N-Acetylcysteine and Metamizole may falselydepress this assay. Performed By: #### L 501.9910, L500.4100, L501.1400, L100.0100, L500.4050, L501.9520 ####[facility] [address] [place], [address] Basic Metabolic Profile (BMP )on 01-22-2024 BUN/CRE 18.4 RATIO Normal 10-20 [facility] Comment on above: Performed By: #### L 500.2500, L100.0500 ####[facility] [address] [place], [address] CA,Total 8.0 mg/dL Low 8.5-10.1 [facility] Comment on above: Performed By: #### L 500.2500, L100.0500 ####[facility] [address] [place], [address] Chloride [Moles/Vol] 103 mmol/L Normal 98-107 [facility] Comment on above: Performed By: #### L 500.2500, L100.0500 ####[facility] [address] [place], [address] CO2 [Moles/Vol] 33.0 mmol/L High 21.0-32.0 [facility] Comment on above: Performed By: #### L 500.2500, L100.0500 ####[facility] [address] [place], [address] Creatinine [Mass/Vol] 0.49 mg/dL Low 0.70-1.30 [facility] Comment on above: Result Comment: The validity of the calculated GFR GFRAA in patients over70 years has not been determined. Clinical correlation isessential. Performed By: #### L 500.2500, L100.0500 ####[facility] [address] [place], [address] ECRCL 281.31 ml/min Normal [facility] Comment on above: Performed By: #### L 500.2500, L100.0500 ####[facility] [address] [place], [address] EST GFR - AA 222 mL/min Normal >60 [facility] Comment on above: Result Comment: Afri can Ivorian GFR Calc Performed By: #### L 500.2500, L100.0500 ####[facility] [address] [place], [address] GAP 3 Low 5-15 [facility] Comment on above: Performed By: #### L 500.2500, L100.0500 ####[facility] [address] [place], [address] GFR/1.73 sq M.predicted among non-blacks MDRD (S/P/Bld) [Vol rate/Area] 183 mL/min/{1.73_m2} Normal >60 [facility] Comment on above: Result Comment: Non- GFR Calc Performed By: #### L 500.2500, L100.0500 ####[facility] [address] [place], [address] Glucose [Mass/Vol] 109 mg/dL High 74-106 [facility] Comment on above: Result Comment: Fast ing Glucose result from 100 to 125 mg/dLsuggests IMPAIRED HOMEOSTASIS per A.D.A. criteria. Performed By: #### L 500.2500, L100.0500 ####[facility] [address] [place], [address] Potassium [Moles/Vol] 3.4 mmol/L Low 3.5-5.1 [facility] Comment on above: Performed By: #### L 500.2500, L100.0500 ####[facility] [address] [place], [address] Sodium [Moles/Vol] 139 mmol/L Normal 136-145 [facility] Comment on above: Performed By: #### L 500.2500, L100.0500 ####[facility] [address] [place], [address] Urea nitrogen [Mass/Vol] 9 mg/dL Normal 7-18 [facility] Comment on above: Performed By: #### L 500.2500, L100.0500 ####[facility] [address] [place], [address] CBC-Complete Blood Cnt No Di ffon 01-22-2024 Erythrocyte distribution width (RBC) [Ratio] 12.9 % Normal 11.6-14.6 [facility] Comment on above: Performed By: #### L 500.2500, L100.0500 ####[facility] [address] [place], [address] Hematocrit (Bld) [Volume fraction] 41.6 % Normal 40-54 [facility] Comment on above: Performed By: #### L 500.2500, L100.0500 ####[facility] [address] [place], [address] Hemoglobin (Bld) [Mass/Vol] 13.3 g/dL Normal 13.0-16.5 [facility] Comment on above: Performed By: #### L 500.2500, L100.0500 ####[facility] [address] [place], [address] MCH (RBC) [Entitic mass] 32.3 pg High 27.0-32.0 [facility] Comment on above: Performed By: #### L 500.2500, L100.0500 ####[facility] [address] [place], [address] MCHC (RBC) [Mass/Vol] 32.0 g/dL Normal 32-36 [facility] Comment on above: Performed By: #### L 500.2500, L100.0500 ####[facility] [address] [place], [address] MCV (RBC) [Entitic vol] 101.0 fL High 80-94 [facility] Comment on above: Performed By: #### L 500.2500, L100.0500 ####[facility] [address] [place], [address] Platelet mean volume (Bld) [Entitic vol] 10.0 fL Normal 6.2-12.0 [facility] Comment on above: Performed By: #### L 500.2500, L100.0500 ####[facility] [address] [place], [address] Platelets (Bld) [#/Vol] 212 10*3/uL Normal 150-450 [facility] Comment on above: Performed By: #### L 500.2500, L100.0500 ####[facility] [address] [place], [address] RBC (Bld) [#/Vol] 4.12 10*6/uL Low 4.6-6.2 [facility] Comment on above: Performed By: #### L 500.2500, L100.0500 ####[facility] [address] [place], [address] RDW SD 47.8 fl High 35.1-43.9 [facility] Comment on above: Performed By: #### L 500.2500, L100.0500 ####[facility] [address] [place], [address] WBC (Bld) [#/Vol] 6.1 10*3/uL Normal 4.4-11.0 [facility] Comment on above: Performed By: #### L 500.2500, L100.0500 ####[facility] [address] [place], [address] Basic Metabolic Profile (BMP )on 01-21-2024 BUN/CRE 21.6 RATIO High 10-20 [facility] Comment on above: Performed By: #### L 500.2500 ####[facility] [address] [place], [address] CA,Total 7.8 mg/dL Low 8.5-10.1 [facility] Comment on above: Performed By: #### L 500.2500 ####[facility] [address] [place], [address] Chloride [Moles/Vol] 99 mmol/L Normal 98-107 [facility] Comment on above: Performed By: #### L 500.2500 ####[facility] [address] [place], [address] CO2 [Moles/Vol] 33.0 mmol/L High 21.0-32.0 [facility] Comment on above: Performed By: #### L 500.2500 ####[facility] [address] [place], [address] Creatinine [Mass/Vol] 0.46 mg/dL Low 0.70-1.30 [facility] Comment on above: Result Comment: The validity of the calculated GFR GFRAA in patients over70 years has not been determined. Clinical correlation isessential. Performed By: #### L 500.2500 ####[facility] [address] [place], [address] ECRCL 299.66 ml/min Normal [facility] Comment on above: Performed By: #### L 500.2500 ####[facility] [address] [place], [address] EST GFR - AA 237 mL/min Normal >60 [facility] Comment on above: Result Comment: Afri can Ivorian GFR Calc Performed By: #### L 500.2500 ####[facility] [address] [place], [address] GAP 5 Normal 5-15 [facility] Comment on above: Performed By: #### L 500.2500 ####[facility] [address] [place], [address] GFR/1.73 sq M.predicted among non-blacks MDRD (S/P/Bld) [Vol rate/Area] 196 mL/min/{1.73_m2} Normal >60 [facility] Comment on above: Result Comment: Non- GFR Calc Performed By: #### L 500.2500 ####[facility] [address] [place], [address] Glucose [Mass/Vol] 124 mg/dL High 74-106 [facility] Comment on above: Result Comment: Fast ing Glucose result from 100 to 125 mg/dLsuggests IMPAIRED HOMEOSTASIS per A.D.A. criteria. Performed By: #### L 500.2500 ####[facility] [address] [place], [address] Potassium [Moles/Vol] 3.3 mmol/L Low 3.5-5.1 [facility] Comment on above: Performed By: #### L 500.2500 ####[facility] [address] [place], [address] Sodium [Moles/Vol] 137 mmol/L Normal 136-145 [facility] Comment on above: Performed By: #### L 500.2500 ####[facility] [address] [place], [place], [phone] Urea nitrogen [Mass/Vol] 10 mg/dL Normal 7-18 [facility] Comment on above: Performed By: #### L 500.2500 ####[facility] [address] [place], [place], [phone] Basic Metabolic Profile (BMP )on 01-19-2024 BUN/CRE 13.6 RATIO Normal 10-20 [facility] Comment on above: Order Comment: REDRA W. PREVIOUS SPECIMEN REJECTED DUE TOSPECIMEN BEING HEMOLYZED. 01/19/24720 Darrian Fernando Performed By: #### L 500.2500 ####[facility] [address] [place], [address] CA,Total 7.4 mg/dL Low 8.5-10.1 [facility] Comment on above: Order Comment: REDRA W. PREVIOUS SPECIMEN REJECTED DUE TOSPECIMEN BEING HEMOLYZED. 01/19/24720 Darrian Fernando Performed By: #### L 500.2500 ####[facility] [address] [place], [address] Chloride [Moles/Vol] 101 mmol/L Normal 98-107 [facility] Comment on above: Order Comment: REDRA W. PREVIOUS SPECIMEN REJECTED DUE TOSPECIMEN BEING HEMOLYZED. 01/19/24720 Darrian Fernando Performed By: #### L 500.2500 ####[facility] [address] [place], [address] CO2 [Moles/Vol] 34.0 mmol/L High 21.0-32.0 [facility] Comment on above: Order Comment: REDRA W. PREVIOUS SPECIMEN REJECTED DUE TOSPECIMEN BEING HEMOLYZED. 01/19/24720 Darrian Fernando Performed By: #### L 500.2500 ####[facility] [address] [place], [place], [address] Creatinine [Mass/Vol] 0.59 mg/dL Low 0.70-1.30 [facility] Comment on above: Order Comment: REDRA W. PREVIOUS SPECIMEN REJECTED DUE TOSPECIMEN BEING HEMOLYZED. 01/19/24720 Darrian Escobar. Result Comment: The validity of the calculated GFR GFRAA in patients over70 years has not been determined. Clinical correlation isessential. Performed By: #### L 500.2500 ####[facility] [address] [place], [address] ECRCL 233.63 ml/min Normal [facility] Comment on above: Order Comment: REDRA W. PREVIOUS SPECIMEN REJECTED DUE TOSPECIMEN BEING HEMOLYZED. 01/19/24720 Darrian Escobar. Performed By: #### L 500.2500 ####[facility] [address] [place], [address] EST GFR - AA 180 mL/min Normal >60 [facility] Comment on above: Order Comment: REDRA W. PREVIOUS SPECIMEN REJECTED DUE TOSPECIMEN BEING HEMOLYZED. 01/19/24720 Darrian Escobar. Result Comment: Afri can Ivorian GFR Calc Performed By: #### L 500.2500 ####[facility] [address] [place], [address] GAP 4 Low 5-15 [facility] Comment on above: Order Comment: REDRA W. PREVIOUS SPECIMEN REJECTED DUE TOSPECIMEN BEING HEMOLYZED. 01/19/24720 Darrian Fernando Performed By: #### L 500.2500 ####[facility] [address] [place], [place], [address](120) GFR/1.73 sq M.predicted among non-blacks MDRD (S/P/Bld) [Vol rate/Area] 149 mL/min/{1.73_m2} Normal >60 [facility] Comment on above: Order Comment: REDRA W. PREVIOUS SPECIMEN REJECTED DUE TOSPECIMEN BEING HEMOLYZED. 01/19/24720 Darrian Fernando Result Comment: Non- GFR Calc Performed By: #### L 500.2500 ####[facility] [address] [place], [address] Glucose [Mass/Vol] 114 mg/dL High 74-106 [facility] Comment on above: Order Comment: REDRA W. PREVIOUS SPECIMEN REJECTED DUE TOSPECIMEN BEING HEMOLYZED. 01/19/24720 Darrian Fernando Result Comment: Fast ing Glucose result from 100 to 125 mg/dLsuggests IMPAIRED HOMEOSTASIS per A.D.A. criteria. Performed By: #### L 500.2500 ####[facility] [address] [place], [address] Potassium [Moles/Vol] 3.3 mmol/L Low 3.5-5.1 [facility] Comment on above: Order Comment: REDRA W. PREVIOUS SPECIMEN REJECTED DUE TOSPECIMEN BEING HEMOLYZED. 01/19/24720 Darrian Fernando Performed By: #### L 500.2500 ####[facility] [address] [place], [address] Sodium [Moles/Vol] 139 mmol/L Normal 136-145 [facility] Comment on above: Order Comment: REDRA W. PREVIOUS SPECIMEN REJECTED DUE TOSPECIMEN BEING HEMOLYZED. 01/19/24720 Darrian Fernando Performed By: #### L 500.2500 ####[facility] [address] [place], [address] Urea nitrogen [Mass/Vol] 8 mg/dL Normal 7-18 [facility] Comment on above: Order Comment: REDRA W. PREVIOUS SPECIMEN REJECTED DUE TOSPECIMEN BEING HEMOLYZED. 01/19/24720 Darrian Fernando Performed By: #### L 500.2500 ####[facility] [address] [place], [address] BUN Normal 7-18 [facility] Comment on above: Result Comment: This specimen has been REJECTED due to Laboratory criteria:Hemolyzed.PHELB STAFF has been notified of need of recollection.01/19/24719 Darrian R Stoner Performed By: #### L 100.0500, L500.2500 ####[facility] [address] [place], [address] BUN/CRE Normal 10-20 [facility] Comment on above: Result Comment: This specimen has been REJECTED due to Laboratory criteria:Hemolyzed.PHELB STAFF has been notified of need of recollection.01/19/24719 Darrian R Stoner Performed By: #### L 100.0500, L500.2500 ####[facility] [address] [place], [address] CA,Total Normal 8.5-10.1 [facility] Comment on above: Result Comment: This specimen has been REJECTED due to Laboratory criteria:Hemolyzed.PHELB STAFF has been notified of need of recollection.01/19/24719 Darrian R Stoner Performed By: #### L 100.0500, L500.2500 ####[facility] [address] [place], [address] CL Normal 98-107 [facility] Comment on above: Result Comment: This specimen has been REJECTED due to Laboratory criteria:Hemolyzed.PHELB STAFF has been notified of need of recollection.01/19/24719 Dariran R Stoner Performed By: #### L 100.0500, L500.2500 ####[facility] [address] [place], [address] CO2 Normal 21.0-32.0 [facility] Comment on above: Result Comment: This specimen has been REJECTED due to Laboratory criteria:Hemolyzed.PHELB STAFF has been notified of need of recollection.01/19/24719 Darrian R Stoner Performed By: #### L 100.0500, L500.2500 ####[facility] [address] [place], [address] CREAT,SERUM Normal 0.70-1.30 [facility] Comment on above: Result Comment: This specimen has been REJECTED due to Laboratory criteria:[facility]emolyzed.[facility] has been notified of need of recollection.01/19/24719 Darrian R Stoner Performed By: #### L 100.0500, L500.2500 ####[facility] [address] [place], [address] EST GFR Normal >60 [facility] Comment on above: Result Comment: This specimen has been REJECTED due to Laboratory criteria:Hemolyzed.PHELB STAFF has been notified of need of recollection.01/19/24719 Darrian R Stoner Performed By: #### L 100.0500, L500.2500 ####[facility] [address] [facility] [address] EST GFR - AA Normal >60 [facility] Comment on above: Result Comment: This specimen has been REJECTED due to Laboratory criteria:Hemolyzed.PHELB STAFF has been notified of need of recollection.01/19/24719 Darrian R Stoner Performed By: #### L 100.0500, L500.2500 ####[facility] [address] [place], [address] GAP Normal 5-15 [facility] Comment on above: Result Comment: This specimen has been REJECTED due to Laboratory criteria:Hemolyzed.[facility] has been notified of need of recollection.01/19/24719 Darrian R Stoner Performed By: #### L 100.0500, L500.2500 ####[facility] [address] [place], [address] GLU Normal 74-106 [facility] Comment on above: Result Comment: This specimen has been REJECTED due to Laboratory criteria:Hemolyzed.PHELB STAFF has been notified of need of recollection.01/19/24719 Darrian Escobar Performed By: #### L 100.0500, L500.2500 ####[facility] [address] [place], [address] Potassium Normal 3.5-5.1 [facility] Comment on above: Result Comment: This specimen has been REJECTED due to Laboratory criteria:Hemolyzed.PHELB STAFF has been notified of need of recollection.01/19/24719 Darrian Escobar Performed By: #### L 100.0500, L500.2500 ####[facility] [address] [place], [address] Basic Metabolic Profile (BMP) Normal 136-145 [facility] Comment on above: Result Comment: This specimen has been REJECTED due to Laboratory criteria:Hemolyzed.PHELB STAFF has been notified of need of recollection.01/19/24719 Darrian Escobar Performed By: #### L 100.0500, L500.2500 ####[facility] [address] [place], [address] CBC-Complete Blood Cnt No Di ffon 01-19-2024 Erythrocyte distribution width (RBC) [Ratio] 12.8 % Normal 11.6-14.6 [facility] Comment on above: Performed By: #### L 100.0500, L500.2500 ####[facility] [address] [place], [address] Hematocrit (Bld) [Volume fraction] 46.3 % Normal 40-54 [facility] Comment on above: Performed By: #### L 100.0500, L500.2500 ####[facility] [address] [place], [address] Hemoglobin (Bld) [Mass/Vol] 14.9 g/dL Normal 13.0-16.5 [facility] Comment on above: Performed By: #### L 100.0500, L500.2500 ####[facility] [address] [place], [address] MCH (RBC) [Entitic mass] 32.7 pg High 27.0-32.0 [facility] Comment on above: Performed By: #### L 100.0500, L500.2500 ####[facility] [address] [place], [address] MCHC (RBC) [Mass/Vol] 32.2 g/dL Normal 32-36 [facility] Comment on above: Performed By: #### L 100.0500, L500.2500 ####[facility] [address] [place], [address] MCV (RBC) [Entitic vol] 101.8 fL High 80-94 [facility] Comment on above: Performed By: #### L 100.0500, L500.2500 ####[facility] [address] [place], [address] Platelet mean volume (Bld) [Entitic vol] 9.8 fL Normal 6.2-12.0 [facility] Comment on above: Performed By: #### L 100.0500, L500.2500 ####[facility] [address] [place], [address] Platelets (Bld) [#/Vol] 262 10*3/uL Normal 150-450 [facility] Comment on above: Performed By: #### L 100.0500, L500.2500 ####[facility] [address] [place], [address] RBC (Bld) [#/Vol] 4.55 10*6/uL Low 4.6-6.2 [facility] Comment on above: Performed By: #### L 100.0500, L500.2500 ####[facility] [address] [place], [address] RDW SD 48.3 fl High 35.1-43.9 [facility] Comment on above: Performed By: #### L 100.0500, L500.2500 ####[facility] [address] [place], [address] WBC (Bld) [#/Vol] 6.0 10*3/uL Normal 4.4-11.0 [facility] Comment on above: Performed By: #### L 100.0500, L500.2500 ####[facility] [address] [place], [address] Urine Cultureon 01-19-2024 URC Normal [facility] Comment on above: Performed By: #### M 100.2200 ####[facility] [address] [place], [address] Basic Metabolic Profile (BMP )on 01-17-2024 BUN/CRE 13.6 RATIO Normal 10-20 [facility] Comment on above: Performed By: #### L 501.9520, L506.1000, L500.2500, L100.0100 ####[facility] [address] [place], [address] CA,Total 7.2 mg/dL Low 8.5-10.1 [facility] Comment on above: Performed By: #### L 501.9520, L506.1000, L500.2500, L100.0100 ####[facility] [address] [place], [address] Chloride [Moles/Vol] 101 mmol/L Normal 98-107 [facility] Comment on above: Performed By: #### L 501.9520, L506.1000, L500.2500, L100.0100 ####[facility] [address] [place], [address] CO2 [Moles/Vol] 32.0 mmol/L Normal 21.0-32.0 [facility] Comment on above: Performed By: #### L 501.9520, L506.1000, L500.2500, L100.0100 ####[facility] [address] [place], [address] Creatinine [Mass/Vol] 0.59 mg/dL Low 0.70-1.30 [facility] Comment on above: Result Comment: The validity of the calculated GFR GFRAA in patients over70 years has not been determined. Clinical correlation isessential. Performed By: #### L 501.9520, L506.1000, L500.2500, L100.0100 ####[facility] [address] [place], [address] ECRCL 233.63 ml/min Normal [facility] Comment on above: Performed By: #### L 501.9520, L506.1000, L500.2500, L100.0100 ####[facility] [address] [place], [address] EST GFR - AA 179 mL/min Normal >60 [facility] Comment on above: Result Comment: Afri can Ivorian GFR Calc Performed By: #### L 501.9520, L506.1000, L500.2500, L100.0100 ####[facility] [address] [place], [address] GAP 5 Normal 5-15 [facility] Comment on above: Performed By: #### L 501.9520, L506.1000, L500.2500, L100.0100 ####[facility] [address] [place], [address] GFR/1.73 sq M.predicted among non-blacks MDRD (S/P/Bld) [Vol rate/Area] 148 mL/min/{1.73_m2} Normal >60 [facility] Comment on above: Result Comment: Non- GFR Calc Performed By: #### L 501.9520, L506.1000, L500.2500, L100.0100 ####[facility] [address] [place], [address] Glucose [Mass/Vol] 117 mg/dL High 74-106 [facility] Comment on above: Result Comment: Fast ing Glucose result from 100 to 125 mg/dLsuggests IMPAIRED HOMEOSTASIS per A.D.A. criteria. Performed By: #### L 501.9520, L506.1000, L500.2500, L100.0100 ####[facility] [address] [place], [address] Potassium [Moles/Vol] 3.2 mmol/L Low 3.5-5.1 [facility] Comment on above: Performed By: #### L 501.9520, L506.1000, L500.2500, L100.0100 ####[facility] [address] [place], [address] Sodium [Moles/Vol] 138 mmol/L Normal 136-145 [facility] Comment on above: Performed By: #### L 501.9520, L506.1000, L500.2500, L100.0100 ####[facility] [address] [place], [address] Urea nitrogen [Mass/Vol] 8 mg/dL Normal 7-18 [facility] Comment on above: Performed By: #### L 501.9520, L506.1000, L500.2500, L100.0100 ####[facility] [address] [place], [address] CBC W/Diff, Automatedon 05- SMEAR COMMENT SCANNED Normal [facility] Comment on above: Performed By: #### L 501.9520, L506.1000, L500.2500, L100.0100 ####[facility] [address] [place], [address] Magnesiumon 01-17-2024 Magnesium [Mass/Vol] 1.7 mg/dL Normal 1.6-2.6 [facility] Comment on above: Performed By: #### L 501.5200 ####[facility] [address] [place], [address] Thyroid Stim Hormone (TSH)on 01-17-2024 TSH 3.75 uIU/mL High 0.358-3.74 [facility] Comment on above: Performed By: #### L 501.9520, L506.1000, L500.2500, L100.0100 ####[facility] [address] [place], [address] Vitamin D,25 Hydroxyon 01-16 Vitamin D 25-OH 18.0 ng/mL Normal [facility] Comment on above: Result Comment: Clara min D 25(OH) Status Range Deficiency <20 ng/mL (50nmol/L) Insufficiency 20 - 30 ng/mL (50 - 75 nmol/L) Sufficiency 30 - 100 ng/mL (75 - 250 nmol/L) Toxicity >100 ng/mL (>250 nmol/L) Performed By: #### L 501.9520, L506.1000, L500.2500, L100.0100 ####[facility] [address] [place], [address] 12 Lead EKGon 01-16-2024 12 Lead EKG Normal [facility] Abdomen/Pelvis without Conto n 01-16-2024 Abdomen/Pelvis without Cont Normal [facility] Ankle Brachial Indexon 01-15 Ankle Brachial Index Normal [facility] Basic Metabolic Profile (BMP )on 01-16-2024 BUN/CRE 7.0 RATIO Low 10-20 [facility] Comment on above: Performed By: #### L 500.2500, L100.0100 ####[facility] [address] [place], [address] CA,Total 8.0 mg/dL Low 8.5-10.1 [facility] Comment on above: Performed By: #### L 500.2500, L100.0100 ####[facility] [address] [place], [address] Chloride [Moles/Vol] 97 mmol/L Low 98-107 [facility] Comment on above: Performed By: #### L 500.2500, L100.0100 ####[facility] [address] [place], [address] CO2 [Moles/Vol] 33.0 mmol/L High 21.0-32.0 [facility] Comment on above: Performed By: #### L 500.2500, L100.0100 ####[facility] [address] [place], [address] Creatinine [Mass/Vol] 0.71 mg/dL Normal 0.70-1.30 [facility] Comment on above: Result Comment: The validity of the calculated GFR GFRAA in patients over70 years has not been determined. Clinical correlation isessential. Performed By: #### L 500.2500, L100.0100 ####[facility] [address] [place], [address] ECRCL 196.59 ml/min Normal [facility] Comment on above: Performed By: #### L 500.2500, L100.0100 ####[facility] [address] [place], [address] EST GFR - AA 144 mL/min Normal >60 [facility] Comment on above: Result Comment: Afri can Ivorian GFR Calc Performed By: #### L 500.2500, L100.0100 ####[facility] [address] [place], [address] GAP 5 Normal 5-15 [facility] Comment on above: Performed By: #### L 500.2500, L100.0100 ####[facility] [address] [place], [address] GFR/1.73 sq M.predicted among non-blacks MDRD (S/P/Bld) [Vol rate/Area] 119 mL/min/{1.73_m2} Normal >60 [facility] Comment on above: Result Comment: Non- GFR Calc Performed By: #### L 500.2500, L100.0100 ####[facility] [address] [place], [address] Glucose [Mass/Vol] 144 mg/dL High 74-106 [facility] Comment on above: Result Comment: Fast ing Glucose result greater than or equal to 126 mg/dLsuggests DIABETES MELLITUS per A.D.A. criteria. Performed By: #### L 500.2500, L100.0100 ####[facility] [address] [place], [address] Potassium [Moles/Vol] 3.7 mmol/L Normal 3.5-5.1 [facility] Comment on above: Performed By: #### L 500.2500, L100.0100 ####[facility] [address] [place], [address] Sodium [Moles/Vol] 135 mmol/L Low 136-145 [facility] Comment on above: Performed By: #### L 500.2500, L100.0100 ####[facility] [address] [place], [address] Urea nitrogen [Mass/Vol] 5 mg/dL Low 7-18 [facility] Comment on above: Performed By: #### L 500.2500, L100.0100 ####[facility] [address] [place], [address] Brain/Head without Contrasto n 01-16-2024 Brain/Head without Contrast Normal [facility] CBC W/Diff, Automatedon - Absolute Lymph 1.12 X10 3/uL Normal 0.83-4.51 [facility] Comment on above: Performed By: #### L 500.2500, L100.0100 ####[facility] [address] [place], [address] Absolute Neut 4.6 X10 3/uL Normal 2.0-7.7 [facility] Comment on above: Performed By: #### L 500.2500, L100.0100 ####[facility] [address] [place], [address] Basophils/100 WBC (Bld) 0.9 % Normal 0-1 [facility] Comment on above: Performed By: #### L 500.2500, L100.0100 ####[facility] [address] [place], [address] Eosinophils/100 WBC (Bld) 2.1 % Normal 0-5 [facility] Comment on above: Performed By: #### L 500.2500, L100.0100 ####[facility] [address] [place], [address] Erythrocyte distribution width (RBC) [Ratio] 12.6 % Normal 11.6-14.6 [facility] Comment on above: Performed By: #### L 500.2500, L100.0100 ####[facility] [address] [place], [address] Hematocrit (Bld) [Volume fraction] 47.2 % Normal 40-54 [facility] Comment on above: Performed By: #### L 500.2500, L100.0100 ####[facility] [address] [place], [address] Hemoglobin (Bld) [Mass/Vol] 15.9 g/dL Normal 13.0-16.5 [facility] Comment on above: Performed By: #### L 500.2500, L100.0100 ####[facility] [address] [place], [address] IG% 0.300 Normal 0.0-0.9 [facility] Comment on above: Result Comment: IG% - Immature Granulocytes (promyelocytes, myelocytes andmetamyelocytes) > 1% indicates that a LEFT SHIFT is Present. Performed By: #### L 500.2500, L100.0100 ####[facility] [address] [place], [address] Lymphocytes/100 WBC (Bld) 16.8 % Low 19-41 [facility] Comment on above: Performed By: #### L 500.2500, L100.0100 ####[facility] [address] [place], [address] MCH (RBC) [Entitic mass] 32.4 pg High 27.0-32.0 [facility] Comment on above: Performed By: #### L 500.2500, L100.0100 ####[facility] [address] [place], [address] MCHC (RBC) [Mass/Vol] 33.7 g/dL Normal 32-36 [facility] Comment on above: Performed By: #### L 500.2500, L100.0100 ####[facility] [address] [place], [address] MCV (RBC) [Entitic vol] 96.1 fL High 80-94 [facility] Comment on above: Performed By: #### L 500.2500, L100.0100 ####[facility] [address] [place], [address] Monocytes/100 WBC (Bld) 11.1 % High 0-10 [facility] Comment on above: Performed By: #### L 500.2500, L100.0100 ####[facility] [address] [place], [address] Neutrophils/100 WBC (Bld) 68.8 % Normal 47-70 [facility] Comment on above: Performed By: #### L 500.2500, L100.0100 ####[facility] [address] [place], [address] Nucleated RBC (Bld) [#/Vol] 0 10*3/uL Normal 0-5 [facility] Comment on above: Performed By: #### L 500.2500, L100.0100 ####[facility] [address] [place], [address] Platelet mean volume (Bld) [Entitic vol] 10.4 fL Normal 6.2-12.0 [facility] Comment on above: Performed By: #### L 500.2500, L100.0100 ####[facility] [address] [place], [address] Platelets (Bld) [#/Vol] 234 10*3/uL Normal 150-450 [facility] Comment on above: Performed By: #### L 500.2500, L100.0100 ####[facility] [address] [place], [address] RBC (Bld) [#/Vol] 4.91 10*6/uL Normal 4.6-6.2 [facility] Comment on above: Performed By: #### L 500.2500, L100.0100 ####[facility] [address] [place], [address] RDW SD 45.2 fl High 35.1-43.9 [facility] Comment on above: Performed By: #### L 500.2500, L100.0100 ####[facility] [address] [place], [address] WBC (Bld) [#/Vol] 6.7 10*3/uL Normal 4.4-11.0 [facility] Comment on above: Performed By: #### L 500.2500, L100.0100 ####[facility] [address] [place], [address] Chest 1 View (Portable)on 05 -28-2024 Chest 1 View (Portable) Normal [facility] Emergency Department Summary on 01-16-2024 Emergency Department Summary Normal [facility] H AND P Exam - Hospitaliston 01-16-2024 H&P Exam - Hospitalist Normal [facility] Urinalysis, Completeon 01-15 BACTERIA 1+ /hpf Normal None Seen [facility] Comment on above: Order Comment: CLEAN CATCH Performed By: #### L 400.0001 ####[facility] [address] [place], [address] RBC 0-5 SEEN Normal 0-5 [facility] Comment on above: Order Comment: CLEAN CATCH Performed By: #### L 400.0001 ####[facility] [address] [place], [address] WBC 25-50 SEEN Normal 0-5 [facility] Comment on above: Order Comment: CLEAN CATCH Performed By: #### L 400.0001 ####[facility] [address] [place], [address] EPI,SQUAMOUS 0 SEEN Normal 0-5 [facility] Comment on above: Order Comment: CLEAN CATCH Performed By: #### L 400.0001 ####[facility] [address] [place], [address] Mucus Ql (Urine sed) 0 SEEN Normal [facility] Comment on above: Order Comment: CLEAN CATCH Performed By: #### L 400.0001 ####[facility] [address] [place], [address] Basophil percentageOrdered B y: Cherelle Nguyen on 03-08-2023 Chloride [Moles/Vol] 102 mmol/L 98-107 [facility] Glucose [Mass/Vol] 119 mg/dL 74-106 [facility] Comment on above: Fasting Glucose resu lt from 100 to 125 mg/dL suggests IMPAIRED HOMEOSTASIS per A.D.A. criteria. Potassium [Moles/Vol] 3.7 mmol/L 3.5-5.1 [facility] Comment on above: Slight Hemolysis, Re sult may be falsely increased. Sodium [Moles/Vol] 138 mmol/L 136-145 [facility] Laboratory - Chemistry and C hemistry - challengeOrdered By: Cherelle Nguyen on 03-08-2023 CO2 [Moles/Vol] 30.0 mmol/L 21.0-32.0 [facility] Natriuretic peptide B (Bld) [Mass/Vol] 77.0 pg/mL 0-100 [facility] Urea nitrogen/Creatinine [Mass ratio] 10.2 mg/mg 10-20 [facility] No Panel InformationOrdered By: Cherelle Nguyen on 03-08-2023 Estimated GFR (MDRD) Amer 129 mL/min >60 [facility] Comment on above: GFR Calc Estimated GFR (MDRD) Non-Af Amer 107 mL/min >60 [facility] Comment on above: Non- GFR Calc Serum or plasma calcium rufus urement (mass/volume)Ordered By: Cherelle Nguyen on 03-08-2023 Calcium [Mass/Vol] 7.7 mg/dL 8.5-10.1 [facility] Serum or plasma creatinine m easurement (mass/volume)Ordered By: Cherelle Nguyen on 03-08-2023 Creatinine [Mass/Vol] 0.78 mg/dL 0.70-1.30 [facility] Comment on above: The validity of the calculated GFR & GFRAA in patients over 70 years has not been determined. Clinical correlation is essential. Serum or plasma urea nitroge n measurement (mass/volume)Ordered By: Cherelle Nguyen on 03-08-2023 Urea nitrogen [Mass/Vol] 8 mg/dL 7-18 [facility] Thin prep Papanicolaou smear with manual screeningOrdered By: Cherelle Nguyen on 03-08-2023 Thin prep Papanicolaou smear with manual screening 6 5-15 [facility] Absolute lymphocyte countOrd ered By: Chalo Mclean on 03-03-2023 Lymphocytes Auto (Unsp spec) [#/Vol] 1.73 10*3/uL 0.83-4.51 [facility] Basophil percentageOrdered B y: Chalo Mclean on 03-03-2023 Basophils/100 WBC (Bld) 0.4 % 0-1 [facility] Bilirubin [Mass/Vol] 0.30 mg/dL 0.20-1.00 [facility] Comment on above: For patients on eltr ombopag therapy, use of Dimension [place] TBIL is not recommended. Chloride [Moles/Vol] 108 mmol/L 98-107 [facility] Cholesterol [Mass/Vol] 125 mg/dL <200 [facility] Comment on above: <200 mg/dL Desirable 200-240 mg/dL Borderline >240 mg/dL High Risk Eosinophils/100 WBC (Bld) 3.0 % 0-5 [facility] Glucose [Mass/Vol] 108 mg/dL 74-106 [facility] Comment on above: Fasting Glucose resu lt from 100 to 125 mg/dL suggests IMPAIRED HOMEOSTASIS per A.D.A. criteria. Neutrophils (Bld) [#/Vol] 2.4 10*3/uL 2.0-7.7 [facility] Neutrophils/100 WBC (Bld) 50.8 % 47-70 [facility] Potassium [Moles/Vol] 3.8 mmol/L 3.5-5.1 [facility] Protein [Mass/Vol] 7.1 g/dL 6.4-8.2 [facility] Sodium [Moles/Vol] 140 mmol/L 136-145 [facility] Triglyceride [Mass/Vol] 183 mg/dL <199 [facility] Comment on above: The drugs N-Acetylcy steine and Metamizole may falsely depress this assay.Serum Triglycerides Reference Interval Normal <150 mg/dL Borderline high 150 - 199 mg/dL High 200 - 499 mg/dL Very High > or = 500 mg/dL WBC (Bld) [#/Vol] 4.6 10*3/uL 4.4-11.0 [facility] Blood erythrocytes count (nu mber/volume)Ordered By: Chalo Mclean on 03-03-2023 RBC (Bld) [#/Vol] 4.66 10*6/uL 4.6-6.2 [facility] Blood hemoglobin measurement (mass/volume)Ordered By: Chalo Mclean on 03-03-2023 Hemoglobin (Bld) [Mass/Vol] 15.2 g/dL 13.0-16.5 [facility] Blood lymphocytes/100 leukoc ytesOrdered By: Chalo Mclean on 03-03-2023 Lymphocytes/100 WBC (Bld) 37.4 % 19-41 [facility] Blood monocytes/100 leukocyt esOrdered By: Chalo Vinay on 03-03-2023 Monocytes/100 WBC (Bld) 8.0 % 0-10 [facility] Blood platelet mean volumeOr dered By: Chalo Vinay on 03-03-2023 Platelet mean volume (Bld) [Entitic vol] 10.5 fL 6.2-12.0 [facility] Determination of erythrocyte mean corpuscular volume (MCV)[facility] MCV (RBC) [Entitic vol] 100.0 fL 80-94 [facility] Hematocrit Auto (Bld) [Volum e fraction]Ordered By: [facility] 03-03-2023 Hematocrit (Bld) [Volume fraction] 46.6 % 40-54 [facility] Laboratory - Chemistry and C hemistry - challengeOrdered By: [facility] 03-03-2023 ALP [Catalytic activity/Vol] 168 U/L 45-117 [facility] ALT [Catalytic activity/Vol] 22 U/L 16-61 [facility] CO2 [Moles/Vol] 23.0 mmol/L 21.0-32.0 [facility] Globulin (S) [Mass/Vol] 4.7 g/dL 2.2-4.2 [facility] Urea nitrogen/Creatinine [Mass ratio] 10.1 mg/mg 10-20 [facility] Laboratory - Hematology and Cell countsOrdered By: [facility] 03-03-2023 Erythrocyte distribution width (RBC) [Entitic vol] 56.5 fL 35.1-43.9 [facility] Erythrocyte distribution width (RBC) [Ratio] 15.1 % 11.6-14.6 [facility] Immature granulocytes/100 WBC (Bld) 0.400 % 0.0-0.9 [facility] Comment on above: IG% - Immature Granu locytes (promyelocytes, myelocytes and metamyelocytes) > 1% indicates that a LEFT SHIFT is Present. MCH (RBC) [Entitic mass] 32.6 pg 27.0-32.0 [facility] Nucleated RBC/100 WBC (Bld) [Ratio] 0 % 0-5 [facility] Auto (RBC) [Mass/Vol]Or dered By: Chalo Mclean on 03-03-2023 MCHC (RBC) [Mass/Vol] 32.6 g/dL 32-36 [facility] No Panel InformationOrdered By: Chalo Mclean on 03-03-2023 Estimated GFR (MDRD) Amer 148 mL/min >60 [facility] Comment on above: GFR Calc Estimated GFR (MDRD) Non-Af Amer 122 mL/min >60 [facility] Comment on above: Non- GFR Calc Thyroid Stimulating Hormone (TSH) 2.25 uIU/mL 0.358-3.74 [facility] Platelets bldOrdered By: Chalo Mclean on 03-03-2023 Platelets (Bld) [#/Vol] 213 10*3/uL 150-450 [facility] Serum or plasma albumin rufus urement (mass/volume)Ordered By: Chalo Mclean on 03-03-2023 Albumin [Mass/Vol] 2.4 g/dL 3.2-5.0 [facility] Serum or plasma albumin/glob ulin mass ratioOrdered By: Chalo Mclean 03-03-2023 Albumin/Globulin [Mass ratio] 0.5 {ratio} 0.9-2.4 [facility] Serum or plasma calcium rufus urement (mass/volume)Ordered By: Chalo Mclean 03-03-2023 Calcium [Mass/Vol] 7.6 mg/dL 8.5-10.1 [facility] Serum or plasma cholesterol in HDL measurement (mass/volume)Ordered By: Chalo Mclean 03-03-2023 Cholesterol in HDL [Mass/Vol] 38 mg/dL >40 [facility] Comment on above: The drugs N-Acetylcy steine and Metamizole may falsely depress this assay. Reference Range HDL <40 mg/dL Low HDL Cholesterol HDL >or= 60 mg/dL High HDL Cholesterol Serum or plasma cholesterol in VLDL measurement (mass/volume)Ordered By: Chalo Mclean on 03-03-2023 Cholesterol in VLDL [Mass/Vol] 37 mg/dL 5-40 [facility] Serum or plasma creatinine m easurement (mass/volume)Ordered By: Chalo Mclean 03-03-2023 Creatinine [Mass/Vol] 0.70 mg/dL 0.70-1.30 [facility] Comment on above: The validity of the calculated GFR & GFRAA in patients over 70 years has not been determined. Clinical correlation is essential. Serum or plasma low density lipoprotein (LDL) cholesterol measurement (mass/volume)Ordered By: Chalo Mclean on 03-03-2023 Cholesterol in LDL [Mass/Vol] 50 mg/dL 0-130 [facility] Serum or plasma urea nitroge n measurement (mass/volume)Ordered By: Chalo Mclean on 03-03-2023 Urea nitrogen [Mass/Vol] 7 mg/dL 7-18 [facility] Serum or plasma uric acid me asurement (mass/volume)Ordered By: Chalo Mclean on 03-03-2023 Urate [Mass/Vol] 8.6 mg/dL 3.5-7.2 [facility] Comment on above: The drugs N-Acetylcy steine and Metamizole may falsely depress this assay. Thin prep Papanicolaou smear with manual screeningOrdered By: Chalo Mclean on 03-03-2023 Thin prep Papanicolaou smear with manual screening 31 U/L 15-37 [facility] Thin prep Papanicolaou smear with manual screening 9 5-15 [facility] Basophil percentageOrdered B y: Tracy Monet on 02-01-2023 Chloride [Moles/Vol] 103 mmol/L 98-107 [facility] Glucose [Mass/Vol] 113 mg/dL 74-106 [facility] Comment on above: Fasting Glucose resu lt from 100 to 125 mg/dL suggests IMPAIRED HOMEOSTASIS per A.D.A. criteria. Potassium [Moles/Vol] 4.1 mmol/L 3.5-5.1 [facility] Sodium [Moles/Vol] 136 mmol/L 136-145 [facility] Laboratory - Chemistry and C hemistry - challengeOrdered By: Tracy Monet on 02-01-2023 CO2 [Moles/Vol] 26.0 mmol/L 21.0-32.0 [facility] Urea nitrogen/Creatinine [Mass ratio] 7.1 mg/mg 10-20 [facility] No Panel InformationOrdered By: Tracy Monet on 06-14-2023 Estimated GFR (MDRD) Amer 146 mL/min >60 [facility] Comment on above: GFR Calc Estimated GFR (MDRD) Non-Af Amer 120 mL/min >60 [facility] Comment on above: Non- GFR Calc Serum or plasma calcium rufus urement (mass/volume)Ordered By: Tracy Monet on 02-01-2023 Calcium [Mass/Vol] 8.0 mg/dL 8.5-10.1 [facility] Serum or plasma creatinine m easurement (mass/volume)Ordered By: Tracy Monet on 02-01-2023 Creatinine [Mass/Vol] 0.71 mg/dL 0.70-1.30 [facility] Comment on above: The validity of the calculated GFR & GFRAA in patients over 70 years has not been determined. Clinical correlation is essential. Serum or plasma urea nitroge n measurement (mass/volume)Ordered By: Tracy Monet on 02-01-2023 Urea nitrogen [Mass/Vol] 5 mg/dL 7-18 [facility] Thin prep Papanicolaou smear with manual screeningOrdered By: Tracy Monet on 02-01-2023 Thin prep Papanicolaou smear with manual screening 7 5-15 [facility] Absolute lymphocyte countOrd ered By: Dr. Gomez on 01-28-2023 Lymphocytes Auto (Unsp spec) [#/Vol] 1.35 10*3/uL 0.83-4.51 [facility] Basophil percentageOrdered B y: Dr. Gomez on 01-28-2023 Basophils/100 WBC (Bld) 0.4 % 0-1 [facility] Bilirubin [Mass/Vol] 0.40 mg/dL 0.20-1.00 [facility] Comment on above: For patients on eltr ombopag therapy, use of Dimension [place] TBIL is not recommended. Chloride [Moles/Vol] 97 mmol/L 98-107 [facility] Eosinophils/100 WBC (Bld) 2.3 % 0-5 [facility] Glucose [Mass/Vol] 112 mg/dL 74-106 [facility] Comment on above: Fasting Glucose resu lt from 100 to 125 mg/dL suggests IMPAIRED HOMEOSTASIS per A.D.A. criteria. Neutrophils (Bld) [#/Vol] 2.9 10*3/uL 2.0-7.7 [facility] Neutrophils/100 WBC (Bld) 58.8 % 47-70 [facility] Potassium [Moles/Vol] 3.8 mmol/L 3.5-5.1 [facility] Protein [Mass/Vol] 5.8 g/dL 6.4-8.2 [facility] Sodium [Moles/Vol] 133 mmol/L 136-145 [facility] WBC (Bld) [#/Vol] 4.9 10*3/uL 4.4-11.0 [facility] Blood erythrocytes count (nu mber/volume)Ordered By: Dr. Gomez on 01-28-2023 RBC (Bld) [#/Vol] 4.23 10*6/uL 4.6-6.2 [facility] Blood hemoglobin measurement (mass/volume)Ordered By: Dr. Gomez on 01-28-2023 Hemoglobin (Bld) [Mass/Vol] 13.7 g/dL 13.0-16.5 [facility] Blood lymphocytes/100 leukoc ytesOrdered By: Dr. Gomez on 01-28-2023 Lymphocytes/100 WBC (Bld) 27.7 % 19-41 [facility] Blood monocytes/100 leukocyt esOrdered By: Dr. Gomez on 01-28-2023 Monocytes/100 WBC (Bld) 10.2 % 0-10 [facility] Blood platelet mean volumeOr dered By: Dr. Gomez on 01-28-2023 Platelet mean volume (Bld) [Entitic vol] 9.3 fL 6.2-12.0 [facility] Determination of erythrocyte mean corpuscular volume (MCV)Ordered By: Dr. Gomez on 01-28-2023 MCV (RBC) [Entitic vol] 96.5 fL 80-94 [facility] Hematocrit Auto (Bld) [Volum e fraction]Ordered By: Dr. Gomez on 01-28-2023 Hematocrit (Bld) [Volume fraction] 40.8 % 40-54 [facility] Laboratory - Chemistry and C hemistry - challengeOrdered By: Dr. Gomez on 01-28-2023 ALP [Catalytic activity/Vol] 154 U/L 45-117 [facility] ALT [Catalytic activity/Vol] 18 U/L 16-61 [facility] CO2 [Moles/Vol] 31.0 mmol/L 21.0-32.0 [facility] Globulin (S) [Mass/Vol] 3.7 g/dL 2.2-4.2 [facility] Urea nitrogen/Creatinine [Mass ratio] 13.2 mg/mg 10-20 [facility] Laboratory - Hematology and Cell countsOrdered By: Dr. Gomez on 01-28-2023 Erythrocyte distribution width (RBC) [Entitic vol] 53.8 fL 35.1-43.9 [facility] Erythrocyte distribution width (RBC) [Ratio] 15.1 % 11.6-14.6 [facility] Immature granulocytes/100 WBC (Bld) 0.600 % 0.0-0.9 [facility] Comment on above: IG% - Immature Granu locytes (promyelocytes, myelocytes and metamyelocytes) > 1% indicates that a LEFT SHIFT is Present. MCH (RBC) [Entitic mass] 32.4 pg 27.0-32.0 [facility] Nucleated RBC/100 WBC (Bld) [Ratio] 0 % 0-5 [facility] MCHC Auto (RBC) [Mass/Vol]Or dered By: Dr. Gomez on 01-28-2023 MCHC (RBC) [Mass/Vol] 33.6 g/dL 32-36 [facility] No Panel InformationOrdered By: Dr. Gomez on 01-28-2023 Estimated Creatinine Clearance Calc 150.32 ml/min [facility] Estimated GFR (MDRD) Amer 175 mL/min >60 [facility] Comment on above: GFR Calc Estimated GFR (MDRD) Non-Af Amer 144 mL/min >60 [facility] Comment on above: Non- GFR Calc Platelets bldOrdered By: Dr. Gomez on 01-28-2023 Platelets (Bld) [#/Vol] 265 10*3/uL 150-450 [facility] Serum or plasma albumin rufus urement (mass/volume)Ordered By: Dr. Gomez on 01-28-2023 Albumin [Mass/Vol] 2.1 g/dL 3.2-5.0 [facility] Serum or plasma albumin/glob ulin mass ratioOrdered By: Dr. Gomez on 01-28-2023 Albumin/Globulin [Mass ratio] 0.6 {ratio} 0.9-2.4 [facility] Serum or plasma calcium rufus urement (mass/volume)Ordered By: Dr. Gomez on 01-28-2023 Calcium [Mass/Vol] 7.5 mg/dL 8.5-10.1 [facility] Serum or plasma creatinine m easurement (mass/volume)Ordered By: Dr. Gomez on 01-28-2023 Creatinine [Mass/Vol] 0.60 mg/dL 0.70-1.30 [facility] Comment on above: The validity of the calculated GFR & GFRAA in patients over 70 years has not been determined. Clinical correlation is essential. Serum or plasma urea nitroge n measurement (mass/volume)Ordered By: Dr. Gomez on 01-28-2023 Urea nitrogen [Mass/Vol] 8 mg/dL 7-18 [facility] Thin prep Papanicolaou smear with manual screeningOrdered By: Dr. Gomez on 01-28-2023 Thin prep Papanicolaou smear with manual screening 20 U/L 15-37 [facility] Thin prep Papanicolaou smear with manual screening 5 5-15 [facility] No Panel InformationOrdered By: Dr. Gomez on 01-27-2023 Thyroid Stimulating Hormone (TSH) 3.39 uIU/mL 0.358-3.74 [facility] Absolute lymphocyte countOrd ered By: Dr. Amaya on 01-26-2023 Lymphocytes Auto (Unsp spec) [#/Vol] 1.18 10*3/uL 0.83-4.51 [facility] Basophil percentageOrdered B y: Dr. Amaya on 01-26-2023 Basophil percentage 25-50 SEEN /hpf 0-5 [facility] Basophils/100 WBC (Bld) 0.4 % 0-1 [facility] Bilirubin [Mass/Vol] 0.50 mg/dL 0.20-1.00 [facility] Comment on above: For patients on eltr ombopag therapy, use of Dimension [place] TBIL is not recommended. Chloride [Moles/Vol] 77 mmol/L 98-107 [facility] Eosinophils/100 WBC (Bld) 1.5 % 0-5 [facility] Glucose [Mass/Vol] 124 mg/dL 74-106 [facility] Comment on above: Fasting Glucose resu lt from 100 to 125 mg/dL suggests IMPAIRED HOMEOSTASIS per A.D.A. criteria. Neutrophils (Bld) [#/Vol] 6.2 10*3/uL 2.0-7.7 [facility] Neutrophils/100 WBC (Bld) 76.1 % 47-70 [facility] Potassium [Moles/Vol] 4.3 mmol/L 3.5-5.1 [facility] Protein [Mass/Vol] 6.6 g/dL 6.4-8.2 [facility] Sodium [Moles/Vol] 115 mmol/L 136-145 [facility] Comment on above: Critical Result(s) C alled at: 11:23:27 01/26/2023 by: Louise Zepeda. Results read back by same. WBC (Bld) [#/Vol] 8.2 10*3/uL 4.4-11.0 [facility] Basophil percentageOrdered B y: Dr. Gomez on 01-26-2023 Basophil percentage 2.5 mg/dL 2.5-4.9 [facility] Bilirubin Test strip Ql (U)O rdered By: Dr. Amaya on 01-26-2023 Bilirubin Ql (U) Negative Negative [facility] Blood erythrocytes count (nu mber/volume)Ordered By: Dr. Amaya on 01-26-2023 RBC (Bld) [#/Vol] 4.60 10*6/uL 4.6-6.2 [facility] Blood hemoglobin measurement (mass/volume)Ordered By: Dr. Amaya on 01-26-2023 Hemoglobin (Bld) [Mass/Vol] 15.0 g/dL 13.0-16.5 [facility] Blood lymphocytes/100 leukoc ytesOrdered By: Dr. Amaya on 01-26-2023 Lymphocytes/100 WBC (Bld) 14.4 % 19-41 [facility] Blood monocytes/100 leukocyt esOrdered By: Dr. Amaya on 01-26-2023 Monocytes/100 WBC (Bld) 7.1 % 0-10 [facility] Blood platelet mean volumeOr dered By: Dr. Amaya on 01-26-2023 Platelet mean volume (Bld) [Entitic vol] 9.2 fL 6.2-12.0 [facility] Determination of erythrocyte mean corpuscular volume (MCV)Ordered By: Dr. Amaya on 01-26-2023 MCV (RBC) [Entitic vol] 90.9 fL 80-94 [facility] Hematocrit Auto (Bld) [Volum e fraction]Ordered By: Dr. Amaya on 01-26-2023 Hematocrit (Bld) [Volume fraction] 41.8 % 40-54 [facility] Influenza virus A and B and SARS-CoV-2 (COVID-19) Ag panel - Upper respiratory specimOrdered By: Teofilo Amaya on 01-26-2023 SARS-CoV-2 (COVID-19) RNA ROBBY+probe Ql (Resp) [facility] Influenza virus A and B and SARS-CoV-2 (COVID-19) Ag panel - Upper respiratory specimOrdered By: Dr. Amaya on 01-26-2023 SARS-CoV-2 (COVID-19) RNA ROBBY+probe Ql (Resp) [facility] Ketones Test strip Ql (U)Ord ered By: Dr. Amaya on 01-26-2023 Ketones Ql (U) 5 mg/dl Negative [facility] Laboratory - Chemistry and C hemistry - challengeOrdered By: Dr. Gomez on 01-26-2023 Cobalamin (Vitamin B12) [Mass/Vol] 417 pg/mL 211-911 [facility] Sodium (U) [Moles/Vol] 18 mmol/L Not Establ. [facility] Magnesium [Mass/Vol] 1.9 mg/dL 1.6-2.6 [facility] Laboratory - Chemistry and C hemistry - challengeOrdered By: Dr. Amaya on 01-26-2023 ALP [Catalytic activity/Vol] 201 U/L 45-117 [facility] ALT [Catalytic activity/Vol] 21 U/L 16-61 [facility] CO2 [Moles/Vol] 27.0 mmol/L 21.0-32.0 [facility] Globulin (S) [Mass/Vol] 4.2 g/dL 2.2-4.2 [facility] Natriuretic peptide B (Bld) [Mass/Vol] 50.4 pg/mL 0-100 [facility] Urea nitrogen/Creatinine [Mass ratio] 9.9 mg/mg 10-20 [facility] Laboratory - Hematology and Cell countsOrdered By: Dr. Amaya on 01-26-2023 Erythrocyte distribution width (RBC) [Entitic vol] 48.0 fL 35.1-43.9 [facility] Erythrocyte distribution width (RBC) [Ratio] 14.4 % 11.6-14.6 [facility] Immature granulocytes/100 WBC (Bld) 0.500 % 0.0-0.9 [facility] Comment on above: IG% - Immature Granu locytes (promyelocytes, myelocytes and metamyelocytes) > 1% indicates that a LEFT SHIFT is Present. MCH (RBC) [Entitic mass] 32.6 pg 27.0-32.0 [facility] Nucleated RBC/100 WBC (Bld) [Ratio] 0 % 0-5 [facility] MCHC Auto (RBC) [Mass/Vol]Or dered By: Dr. Amaya on 01-26-2023 MCHC (RBC) [Mass/Vol] 35.9 g/dL 32-36 [facility] Mucus LM Ql (Urine sed)Order ed By: Dr. Amaya on 01-26-2023 Mucus Ql (Urine sed) 0 SEEN /hpf [facility] Nitrite Test strip Ql (U)Ord ered By: Dr. Amaya on 01-26-2023 Nitrite Ql (U) Positive Negative [facility] No Panel InformationOrdered By: Dr. Gomez on 01-26-2023 Urine Potassium 29.0 mmol/L Not Establ. [facility] Urine Urea Nitrogen 447 mg/dL NO RANGE EST. [facility] No Panel InformationOrdered By: Dr. Amaya on 01-26-2023 Estimated Creatinine Clearance Calc 127.03 ml/min [facility] Estimated GFR (MDRD) Amer 145 mL/min >60 [facility] Comment on above: GFR Calc Estimated GFR (MDRD) Non-Af Amer 120 mL/min >60 [facility] Comment on above: Non- GFR Calc Troponin I High Sensitivity 13 pg/mL 3.0-78.0 [facility] Comment on above: Please Note: New [place] t Units and Gender Specific Reference Ranges. For more information see Policy Stat Procedure [place] High Sensitivity Troponin (TNIH) and attachments. Platelets bldOrdered By: Dr. Amaya on 01-26-2023 Platelets (Bld) [#/Vol] 284 10*3/uL 150-450 [facility] Protein Test strip Ql (U)Ord ered By: Dr. Amaya on 01-26-2023 Protein Ql (U) Negative Negative [facility] Serum or plasma albumin rufus urement (mass/volume)Ordered By: Dr. Amaya on 01-26-2023 Albumin [Mass/Vol] 2.4 g/dL 3.2-5.0 [facility] Serum or plasma albumin/glob ulin mass ratioOrdered By: Dr. Amaya on 01-26-2023 Albumin/Globulin [Mass ratio] 0.6 {ratio} 0.9-2.4 [facility] Serum or plasma calcium rufus urement (mass/volume)Ordered By: Dr. Amaya on 01-26-2023 Calcium [Mass/Vol] 7.3 mg/dL 8.5-10.1 [facility] Serum or plasma creatinine m easurement (mass/volume)Ordered By: Dr. Amaya on 01-26-2023 Creatinine [Mass/Vol] 0.71 mg/dL 0.70-1.30 [facility] Comment on above: The validity of the calculated GFR & GFRAA in patients over 70 years has not been determined. Clinical correlation is essential. Serum or plasma urea nitroge n measurement (mass/volume)Ordered By: Dr. Amaya on 01-26-2023 Urea nitrogen [Mass/Vol] 7 mg/dL 7-18 [facility] Squamous epithelial cells de tection in urine sediment by light microscopyOrdered By: Dr. Amaya on 01-26-2023 Epithelial cells.squamous LM Ql (Urine sed) 0-5 SEEN /hpf 0-5 [facility] Thin prep Papanicolaou smear with manual screeningOrdered By: Dr. Gomez on 01-26-2023 Thin prep Papanicolaou smear with manual screening 244 mOsm/KG 280-301 [facility] Thin prep Papanicolaou smear with manual screening 17 mmol/L Not Establ. [facility] Thin prep Papanicolaou smear with manual screeningOrdered By: Dr. Amaya on 01-26-2023 Thin prep Papanicolaou smear with manual screening 23 U/L 15-37 [facility] Thin prep Papanicolaou smear with manual screening 11 5-15 [facility] Urine blood detectionOrdered By: Dr. Amaya on 01-26-2023 RBC Ql (U) 10 /ul Negative [facility] RBC Ql (U) 0-5 SEEN /hpf 0-5 [facility] Urine clarityOrdered By: Dr. Amaya on 01-26-2023 Clarity (U) Sl. Cloudy Clear [facility] Urine color determinationOrd ered By: Dr. Amaya on 01-26-2023 Color (U) Yellow Yellow [facility] Urine creatinine measurement (mass/volume)Ordered By: Dr. Gomez on 01-26-2023 Creatinine (U) [Mass/Vol] 89.60 mg/dL NO RANGE EST. [facility] Urine glucose detectionOrder ed By: Dr. Amaya on 01-26-2023 Glucose Ql (U) Normal mg/dl Normal [facility] Urine leukocyte esterase det ection by dipstickOrdered By: Dr. Amaya on 01-26-2023 Leukocyte esterase Test strip Ql (U) 500 /ul Negative [facility] Urine osmolality measurement Ordered By: Dr. Gomez on 01-26-2023 Osmolality (U) [Osmolality] 341 mOsm/KG >50 [facility] Comment on above: Normal Urine Referen ce Ranges Random: 50 - 1200 mOsm/kg H20 depending on fluid intake Random: >850 mOsm/kg after 12 hour fluid restriction 24 hour: ~300 - 900 mOsm/kg H2O Urine pHOrdered By: Dr. Elizabeth sandhu on 01-26-2023 pH (U) 6.0 [pH] 5.0 - 8.0 [facility] Urine sediment bacteria coun t by microscopy (number/high power field)Ordered By: Dr. Amaya on 01-26-2023 Bacteria LM.HPF (Urine sed) [#/Area] 2 /[HPF] None Seen [facility] Urine specific gravity measu rementOrdered By: Dr. Amaya on 01-26-2023 Specific gravity (U) [Rel density] 1.015 1.002-1.030 [facility] Urobilinogen Auto test strip Ql (U)Ordered By: Dr. Amaya on 01-26-2023 Urobilinogen Ql (U) 1 mg/dl Normal [facility] Basophil percentageOrdered B y: Tracy Monet on 01-17-2023 Chloride [Moles/Vol] 102 mmol/L 98-107 [facility] Glucose [Mass/Vol] 98 mg/dL 74-106 [facility] Potassium [Moles/Vol] 3.8 mmol/L 3.5-5.1 [facility] Sodium [Moles/Vol] 137 mmol/L 136-145 [facility] WBC (Bld) [#/Vol] 4.1 10*3/uL 4.4-11.0 [facility] Blood erythrocytes count (nu mber/volume)Ordered By: Tracy Monet on 01-17-2023 RBC (Bld) [#/Vol] 4.12 10*6/uL 4.6-6.2 [facility] Blood hemoglobin measurement (mass/volume)Ordered By: Tracy Monet on 01-17-2023 Hemoglobin (Bld) [Mass/Vol] 13.3 g/dL 13.0-16.5 [facility] Blood platelet mean volumeOr dered By: Tracy Monet on 01-17-2023 Platelet mean volume (Bld) [Entitic vol] 10.1 fL 6.2-12.0 [facility] Determination of erythrocyte mean corpuscular volume (MCV)Ordered By: Tracy Monet on 01-17-2023 MCV (RBC) [Entitic vol] 99.3 fL 80-94 [facility] Hematocrit Auto (Bld) [Volum e fraction]Ordered By: Tracy Monet on 01-17-2023 Hematocrit (Bld) [Volume fraction] 40.9 % 40-54 [facility] Laboratory - Chemistry and C hemistry - challengeOrdered By: Tracy Monet on 01-17-2023 CO2 [Moles/Vol] 25.0 mmol/L 21.0-32.0 [facility] Natriuretic peptide B (Bld) [Mass/Vol] 100.5 pg/mL 0-100 [facility] Urea nitrogen/Creatinine [Mass ratio] 6.2 mg/mg 10-20 [facility] Laboratory - Hematology and Cell countsOrdered By: Tracy Monet on 01-17-2023 Erythrocyte distribution width (RBC) [Entitic vol] 57.1 fL 35.1-43.9 [facility] Erythrocyte distribution width (RBC) [Ratio] 15.7 % 11.6-14.6 [facility] MCH (RBC) [Entitic mass] 32.3 pg 27.0-32.0 [facility] MCHC Auto (RBC) [Mass/Vol]Or dered By: Tracy Monet on 01-17-2023 MCHC (RBC) [Mass/Vol] 32.5 g/dL 32-36 [facility] No Panel InformationOrdered By: Tracy Monet on 01-17-2023 Estimated GFR (MDRD) Amer 162 mL/min >60 [facility] Comment on above: GFR Calc Estimated GFR (MDRD) Non-Af Amer 134 mL/min >60 [facility] Comment on above: Non- GFR Calc Platelets bldOrdered By: Chiki Monet on 01-17-2023 Platelets (Bld) [#/Vol] 218 10*3/uL 150-450 [facility] Serum or plasma calcium rufus urement (mass/volume)Ordered By: Tracy Monet on 01-17-2023 Calcium [Mass/Vol] 7.2 mg/dL 8.5-10.1 [facility] Serum or plasma creatinine m easurement (mass/volume)Ordered By: Tracy Monet on 01-17-2023 Creatinine [Mass/Vol] 0.64 mg/dL 0.70-1.30 [facility] Comment on above: The validity of the calculated GFR & GFRAA in patients over 70 years has not been determined. Clinical correlation is essential. Serum or plasma urea nitroge n measurement (mass/volume)Ordered By: Tracy Monet on 01-17-2023 Urea nitrogen [Mass/Vol] 4 mg/dL 7-18 [facility] Thin prep Papanicolaou smear with manual screeningOrdered By: Tracy Monet on 01-17-2023 Thin prep Papanicolaou smear with manual screening 10 5-15 [facility] Absolute lymphocyte countOrd ered By: Dr. Mclean on 09-07-2022 Lymphocytes Auto (Unsp spec) [#/Vol] 1.43 10*3/uL 0.83-4.51 [facility] Basophil percentageOrdered B y: Dr. Mclean on 09-07-2022 Basophils/100 WBC (Bld) 0.5 % 0-1 [facility] Bilirubin [Mass/Vol] 0.40 mg/dL 0.20-1.00 [facility] Comment on above: For patients on eltr ombopag therapy, use of Dimension [place] TBIL is not recommended. Chloride [Moles/Vol] 103 mmol/L 98-107 [facility] Eosinophils/100 WBC (Bld) 4.5 % 0-5 [facility] Glucose [Mass/Vol] 120 mg/dL 74-106 [facility] Comment on above: Fasting Glucose resu lt from 100 to 125 mg/dL suggests IMPAIRED HOMEOSTASIS per A.D.A. criteria. Neutrophils (Bld) [#/Vol] 4.1 10*3/uL 2.0-7.7 [facility] Neutrophils/100 WBC (Bld) 65.0 % 47-70 [facility] Potassium [Moles/Vol] 3.6 mmol/L 3.5-5.1 [facility] Protein [Mass/Vol] 7.8 g/dL 6.4-8.2 [facility] Sodium [Moles/Vol] 137 mmol/L 136-145 [facility] WBC (Bld) [#/Vol] 6.3 10*3/uL 4.4-11.0 [facility] Blood erythrocytes count (nu mber/volume)Ordered By: Dr. Mclean on 09-07-2022 RBC (Bld) [#/Vol] 4.76 10*6/uL 4.6-6.2 [facility] Blood hemoglobin measurement (mass/volume)Ordered By: Dr. Mclean on 09-07-2022 Hemoglobin (Bld) [Mass/Vol] 13.8 g/dL 13.0-16.5 [facility] Blood lymphocytes/100 leukoc ytesOrdered By: Dr. Mclean on 09-07-2022 Lymphocytes/100 WBC (Bld) 22.7 % 19-41 [facility] Blood monocytes/100 leukocyt esOrdered By: Dr. Mclean on 09-07-2022 Monocytes/100 WBC (Bld) 7.0 % 0-10 [facility] Blood platelet mean volumeOr dered By: Dr. Mclean on 09-07-2022 Platelet mean volume (Bld) [Entitic vol] 10.6 fL 6.2-12.0 [facility] Determination of erythrocyte mean corpuscular volume (MCV)Ordered By: Dr. Mclean on 09-07-2022 MCV (RBC) [Entitic vol] 89.1 fL 80-94 [facility] Hematocrit Auto (Bld) [Volum e fraction]Ordered By: Dr. Mclean on 09-07-2022 Hematocrit (Bld) [Volume fraction] 42.4 % 40-54 [facility] Laboratory - Chemistry and C hemistry - challengeOrdered By: Dr. Mclean on 09-07-2022 ALP [Catalytic activity/Vol] 128 U/L 45-117 [facility] ALT [Catalytic activity/Vol] 18 U/L 16-61 [facility] CO2 [Moles/Vol] 27.0 mmol/L 21.0-32.0 [facility] Globulin (S) [Mass/Vol] 4.6 g/dL 2.2-4.2 [facility] Urea nitrogen/Creatinine [Mass ratio] 12.1 mg/mg 10-20 [facility] Laboratory - Hematology and Cell countsOrdered By: Dr. Mclean on 09-07-2022 Erythrocyte distribution width (RBC) [Entitic vol] 50.9 fL 35.1-43.9 [facility] Erythrocyte distribution width (RBC) [Ratio] 15.4 % 11.6-14.6 [facility] Immature granulocytes/100 WBC (Bld) 0.300 % 0.0-0.9 [facility] Comment on above: IG% - Immature Granu locytes (promyelocytes, myelocytes and metamyelocytes) > 1% indicates that a LEFT SHIFT is Present. MCH (RBC) [Entitic mass] 29.0 pg 27.0-32.0 [facility] Nucleated RBC/100 [facility]Bld) [[facility]] 0 [facility] [Mass/Vol]Or dered By: Dr. Mclean on 09-07-2022 MCHC (RBC) [Mass/Vol] 32.5 g/dL 32-36 [facility] No Panel InformationOrdered By: Dr. Mclean on 09-07-2022 Estimated GFR (MDRD) Amer 122 mL/min >60 [facility] Comment on above: GFR Calc Estimated GFR (MDRD) Non-Af Amer 101 mL/min >60 [facility] Comment on above: Non- GFR Calc Prostate Specific Antigen Screen 0.10 ng/mL 0.00-4.00 [facility] Comment on above: This test was perfor med using the TPSA assay method for [employer] chemistry system. Values obtained with differentassay methods cannot be used interchangably.When changing PSA assays in the course of monitoring apatient, additional sequential testing should be carriedout to confirm baseline values. Thyroid Stimulating Hormone (TSH) 3.08 uIU/mL 0.358-3.74 [facility] Vitamin D 25-Hydroxy 14.7 ng/mL [facility] Comment on above: Vitamin D 25(OH) Sta tus Range Deficiency <20 ng/mL (50nmol/L) Insufficiency 20 - 30 ng/mL (50 - 75 nmol/L) Sufficiency 30 - 100 ng/mL (75 - 250 nmol/L) Toxicity >100 ng/mL (>250 nmol/L) Platelets bldOrdered By: Dr. Mclean on 09-07-2022 Platelets (Bld) [#/Vol] 269 10*3/uL 150-450 [facility] Serum or plasma albumin rufus urement (mass/volume)Ordered By: Dr. Mclean on 09-07-2022 Albumin [Mass/Vol] 3.2 g/dL 3.2-5.0 [facility] Serum or plasma albumin/glob ulin mass ratioOrdered By: Dr. Mclean on 09-07-2022 Albumin/Globulin [Mass ratio] 0.7 {ratio} 0.9-2.4 [facility] Serum or plasma calcium rufus urement (mass/volume)Ordered By: Dr. Mclean on 09-07-2022 Calcium [Mass/Vol] 8.6 mg/dL 8.5-10.1 [facility] Serum or plasma creatinine m easurement (mass/volume)Ordered By: Dr. Mclean on 09-07-2022 Creatinine [Mass/Vol] 0.82 mg/dL 0.70-1.30 [facility] Comment on above: The validity of the calculated GFR & GFRAA in patients over 70 years has not been determined. Clinical correlation is essential. Serum or plasma urea nitroge n measurement (mass/volume)Ordered By: Dr. Mclean on 09-07-2022 Urea nitrogen [Mass/Vol] 10 mg/dL 03-07 [facility] Serum or plasma uric acid me asurement (mass/volume)Ordered By: Dr. Mclean on 09-07-2022 Urate [Mass/Vol] 6.6 mg/dL 3.5-7.2 [facility] Comment on above: The drugs N-Acetylcy steine and Metamizole may falsely depress this assay. Thin prep Papanicolaou smear with manual screeningOrdered By: Dr. Mclean on 09-07-2022 Thin prep Papanicolaou smear with manual screening 17 U/L 15-37 [facility] Thin prep Papanicolaou smear with manual screening 7 5-15 [facility] No Panel InformationOrdered By: Dr. León on 08-23-2022 Prostate Specific Antigen Total 0.08 ng/mL 0.0-4.0 [facility] Comment on above: This test was perfor med using the TPSA assay method for the[facility] chemistry system. Values obtained with differentassay methods cannot be used interchangably.When changing PSA assays in the course of monitoring apatient, additional sequential testing should be carriedout to confirm baseline values. Culture, urineOrdered By: Dr Joselito Mclean on 06-10-2022 Bacteria identified Cx Nom (U) Acinetobacter baumannii [facility] Basophil percentageOrdered B y: Dr. Mclean on 06-08-2022 Chloride [Moles/Vol] 98 mmol/L 98-107 [facility] Glucose [Mass/Vol] 123 mg/dL 74-106 [facility] Comment on above: Fasting Glucose resu lt from 100 to 125 mg/dL suggests IMPAIRED HOMEOSTASIS per A.D.A. criteria. Potassium [Moles/Vol] 3.7 mmol/L 3.5-5.1 [facility] Sodium [Moles/Vol] 133 mmol/L 136-145 [facility] Laboratory - Chemistry and C hemistry - challengeOrdered By: Dr. Mclean on 06-08-2022 CO2 [Moles/Vol] 29.0 mmol/L 21.0-32.0 [facility] Urea nitrogen/Creatinine [Mass ratio] 15.2 mg/mg - [facility] No Panel InformationOrdered By: Dr. Mclean on 06-08-2022 Estimated GFR (MDRD) Amer 179 mL/min >60 [facility] Comment on above: GFR Calc Estimated GFR (MDRD) Non-Af Amer 148 mL/min >60 [facility] Comment on above: Non- GFR Calc Serum or plasma calcium rufus urement (mass/volume)Ordered By: Dr. Mclean on 06-08-2022 Calcium [Mass/Vol] 8.8 mg/dL 8.5-10.1 [facility] Serum or plasma creatinine m easurement (mass/volume)Ordered By: Dr. Mclean on 06-08-2022 Creatinine [Mass/Vol] 0.59 mg/dL 0.70-1.30 [facility] Comment on above: The validity of the calculated GFR & GFRAA in patients over 70 years has not been determined. Clinical correlation is essential. Serum or plasma urea nitroge n measurement (mass/volume)Ordered By: Dr. Mclean on 06-08-2022 Urea nitrogen [Mass/Vol] 9 mg/dL 7-18 [facility] Thin prep Papanicolaou smear with manual screeningOrdered By: Dr. Mclean on 06-08-2022 Thin prep Papanicolaou smear with manual screening 6 5-15 [facility] Absolute lymphocyte countOrd ered By: Dr. Rodriguez on 06-03-2022 Lymphocytes Auto (Unsp spec) [#/Vol] 1.15 10*3/uL 0.83-4.51 [facility] Basophil percentageOrdered B y: Dr. Rodriguez on 06-03-2022 Basophils/100 WBC (Bld) 0.6 % 0-1 [facility] Chloride [Moles/Vol] 89 mmol/L 98-107 [facility] Eosinophils/100 WBC (Bld) 2.7 % 0-5 [facility] Glucose [Mass/Vol] 121 mg/dL 74-106 [facility] Comment on above: Fasting Glucose resu lt from 100 to 125 mg/dL suggests IMPAIRED HOMEOSTASIS per A.D.A. criteria. Neutrophils (Bld) [#/Vol] 4.9 10*3/uL 2.0-7.7 [facility] Neutrophils/100 WBC (Bld) 72.0 % 47-70 [facility] Potassium [Moles/Vol] 3.4 mmol/L 3.5-5.1 [facility] Sodium [Moles/Vol] 126 mmol/L 136-145 [facility] WBC (Bld) [#/Vol] 6.8 10*3/uL 4.4-11.0 [facility] Blood erythrocytes count (nu mber/volume)Ordered By: Dr. Rodriguez on 06-03-2022 RBC (Bld) [#/Vol] 4.27 10*6/uL 4.6-6.2 [facility] Blood hemoglobin measurement (mass/volume)Ordered By: Dr. Rodriguez on 06-03-2022 Hemoglobin (Bld) [Mass/Vol] 12.6 g/dL 13.0-16.5 [facility] Blood lymphocytes/100 leukoc ytesOrdered By: Dr. Rodriguez on 06-03-2022 Lymphocytes/100 WBC (Bld) 17.0 % 19-41 [facility] Blood monocytes/100 leukocyt esOrdered By: Dr. Rodriguez on 06-03-2022 Monocytes/100 WBC (Bld) 7.4 % 0-10 [facility] Blood platelet mean volumeOr dered By: Dr. Rodriguez on 06-03-2022 Platelet mean volume (Bld) [Entitic vol] 9.2 fL 6.2-12.0 [facility] Determination of erythrocyte mean corpuscular volume (MCV)Ordered By: Dr. Rodriguez on 06-03-2022 MCV (RBC) [Entitic vol] 88.1 fL 80-94 [facility] Hematocrit Auto (Bld) [Volum e fraction]Ordered By: Dr. Rodriguez on 06-03-2022 Hematocrit (Bld) [Volume fraction] 37.6 % 40-54 [facility] Laboratory - Chemistry and C hemistry - challengeOrdered By: Dr. Rodriguez on 06-03-2022 CO2 [Moles/Vol] 30.0 mmol/L 21.0-32.0 [facility] Urea nitrogen/Creatinine [Mass ratio] 13.9 mg/mg 10-20 [facility] Laboratory - Hematology and Cell countsOrdered By: Dr. Rodriguez on 06-03-2022 Erythrocyte distribution width (RBC) [Entitic vol] 50.8 fL 35.1-43.9 [facility] Erythrocyte distribution width (RBC) [Ratio] 15.9 % 11.6-14.6 [facility] Immature granulocytes/100 WBC (Bld) 0.300 % 0.0-0.9 [facility] Comment on above: IG% - Immature Granu locytes (promyelocytes, myelocytes and metamyelocytes) > 1% indicates that a LEFT SHIFT is Present. MCH (RBC) [Entitic mass] 29.5 pg 27.0-32.0 [facility] Nucleated RBC/100 WBC (Bld) [Ratio] 0 % 0-5 [facility] MCHC Auto (RBC) [Mass/Vol]Or dered By: Dr. Rodriguez on 06-03-2022 MCHC (RBC) [Mass/Vol] 33.5 g/dL 32-36 [facility] No Panel InformationOrdered By: Dr. Rodriguez on 06-03-2022 Estimated Creatinine Clearance Calc 140.51 ml/min [facility] Estimated GFR (MDRD) Amer 162 mL/min >60 [facility] Comment on above: GFR Calc Estimated GFR (MDRD) Non-Af Amer 134 mL/min >60 [facility] Comment on above: Non- GFR Calc Platelets bldOrdered By: Dr. Rodriguez on 06-03-2022 Platelets (Bld) [#/Vol] 251 10*3/uL 150-450 [facility] Serum or plasma calcium rufus urement (mass/volume)Ordered By: Dr. Rodriguez on 06-03-2022 Calcium [Mass/Vol] 8.3 mg/dL 8.5-10.1 [facility] Serum or plasma creatinine m easurement (mass/volume)Ordered By: Dr. Rodriguez on 06-03-2022 Creatinine [Mass/Vol] 0.65 mg/dL 0.70-1.30 [facility] Comment on above: The validity of the calculated GFR & GFRAA in patients over 70 years has not been determined. Clinical correlation is essential. Serum or plasma urea nitroge n measurement (mass/volume)Ordered By: Dr. Rodriguez on 06-03-2022 Urea nitrogen [Mass/Vol] 9 mg/dL 7-18 [facility] Thin prep Papanicolaou smear with manual screeningOrdered By: Dr. Rodriguez on 06-03-2022 Thin prep Papanicolaou smear with manual screening 7 5-15 [facility] Absolute lymphocyte countOrd ered By: Dr. Mclean on 06-02-2022 Lymphocytes Auto (Unsp spec) [#/Vol] 1.18 10*3/uL 0.83-4.51 [facility] Basophil percentageOrdered B y: Dr. Mclean on 06-02-2022 Basophils/100 WBC (Bld) 0.3 % 0-1 [facility] Chloride [Moles/Vol] 87 mmol/L 98-107 [facility] Eosinophils/100 WBC (Bld) 3.2 % 0-5 [facility] Glucose [Mass/Vol] 120 mg/dL 74-106 [facility] Comment on above: Fasting Glucose resu lt from 100 to 125 mg/dL suggests IMPAIRED HOMEOSTASIS per A.D.A. criteria. Neutrophils (Bld) [#/Vol] 5.0 10*3/uL 2.0-7.7 [facility] Neutrophils/100 WBC (Bld) 70.2 % 47-70 [facility] Potassium [Moles/Vol] 3.2 mmol/L 3.5-5.1 [facility] Sodium [Moles/Vol] 125 mmol/L 136-145 [facility] WBC (Bld) [#/Vol] 7.1 10*3/uL 4.4-11.0 [facility] Blood erythrocytes count (nu mber/volume)Ordered By: Dr. Mclean on 06-02-2022 RBC (Bld) [#/Vol] 4.32 10*6/uL 4.6-6.2 [facility] Blood hemoglobin measurement (mass/volume)Ordered By: Dr. Mclean on 06-02-2022 Hemoglobin (Bld) [Mass/Vol] 12.6 g/dL 13.0-16.5 [facility] Blood lymphocytes/100 leukoc ytesOrdered By: Dr. Mclean on 06-02-2022 Lymphocytes/100 WBC (Bld) 16.6 % 19-41 [facility] Blood monocytes/100 leukocyt esOrdered By: Dr. Mclean on 06-02-2022 Monocytes/100 WBC (Bld) 9.3 % 0-10 [facility] Blood platelet mean volumeOr dered By: Dr. Mclean on 06-02-2022 Platelet mean volume (Bld) [Entitic vol] 9.7 fL 6.2-12.0 [facility] Determination of erythrocyte mean corpuscular volume (MCV)Ordered By: Dr. Mclean on 06-02-2022 MCV (RBC) [Entitic vol] 88.4 fL 80-94 [facility] Hematocrit Auto (Bld) [Volum e fraction]Ordered By: Dr. Mclean on 06-02-2022 Hematocrit (Bld) [Volume fraction] 38.2 % 40-54 [facility] Laboratory - Chemistry and C hemistry - challengeOrdered By: Dr. Mclean on 06-02-2022 CO2 [Moles/Vol] 30.0 mmol/L 21.0-32.0 [facility] Sodium (U) [Moles/Vol] 98 mmol/L Not Establ. [facility] Urea nitrogen/Creatinine [Mass ratio] 11.4 mg/mg 10-20 [facility] Laboratory - Hematology and Cell countsOrdered By: Dr. Mclean on 06-02-2022 Erythrocyte distribution width (RBC) [Entitic vol] 51.8 fL 35.1-43.9 [facility] Erythrocyte distribution width (RBC) [Ratio] 15.9 % 11.6-14.6 [facility] Immature granulocytes/100 WBC (Bld) 0.400 % 0.0-0.9 [facility] Comment on above: IG% - Immature Granu locytes (promyelocytes, myelocytes and metamyelocytes) > 1% indicates that a LEFT SHIFT is Present. MCH (RBC) [Entitic mass] 29.2 pg 27.0-32.0 [facility] Nucleated RBC/100 WBC (Bld) [Ratio] 0 % 0-5 [facility] MCHC Auto (RBC) [Mass/Vol]Or dered By: Dr. Mclean on 06-02-2022 MCHC (RBC) [Mass/Vol] 33.0 g/dL 32-36 [facility] No Panel InformationOrdered By: Dr. Mclean on 06-02-2022 Estimated GFR (MDRD) Amer 171 mL/min >60 [facility] Comment on above: GFR Calc Estimated GFR (MDRD) Non-Af Amer 141 mL/min >60 [facility] Comment on above: Non- GFR Calc Platelets bldOrdered By: Dr. Mclean on 06-02-2022 Platelets (Bld) [#/Vol] 246 10*3/uL 150-450 [facility] Serum or plasma calcium rufus urement (mass/volume)Ordered By: Dr. Mclean on 06-02-2022 Calcium [Mass/Vol] 8.1 mg/dL 8.5-10.1 [facility] Serum or plasma creatinine m easurement (mass/volume)Ordered By: Dr. Mclean on 06-02-2022 Creatinine [Mass/Vol] 0.62 mg/dL 0.70-1.30 [facility] Comment on above: The validity of the calculated GFR & GFRAA in patients over 70 years has not been determined. Clinical correlation is essential. Serum or plasma urea nitroge n measurement (mass/volume)Ordered By: Dr. Mclean on 06-02-2022 Urea nitrogen [Mass/Vol] 7 mg/dL 7-18 [facility] Thin prep Papanicolaou smear with manual screeningOrdered By: Dr. Mclean on 06-02-2022 Thin prep Papanicolaou smear with manual screening 8 5-15 [facility] Thin prep Papanicolaou smear with manual screening 260 mOsm/KG 275-295 [facility] Urine osmolality measurement Ordered By: Dr. Mclean on 06-02-2022 Osmolality (U) [Osmolality] 415 mOsm/KG >50 [facility] Comment on above: Normal Urine Referen ce Ranges Random: 50 - 1200 mOsm/kg H20 depending on fluid intake Random: >850 mOsm/kg after 12 hour fluid restriction 24 hour: ~300 - 900 mOsm/kg H2O Culture, urineOrdered By: Dr Joselito Mclean on 05-29-2022 Bacteria identified Cx Nom (U) Presumptive E. coli [facility] Basophil percentageOrdered B y: Dr. Ornelas on 05-27-2022 Chloride [Moles/Vol] 85 mmol/L 98-107 [facility] Glucose [Mass/Vol] 121 mg/dL 74-106 [facility] Comment on above: Fasting Glucose resu lt from 100 to 125 mg/dL suggests IMPAIRED HOMEOSTASIS per A.D.A. criteria. Potassium [Moles/Vol] 3.2 mmol/L 3.5-5.1 [facility] Sodium [Moles/Vol] 124 mmol/L 136-145 [facility] WBC (Bld) [#/Vol] 5.6 10*3/uL 4.4-11.0 [facility] Basophil percentageOrdered B y: Dr. Rojas on 05-27-2022 Bilirubin [Mass/Vol] 0.70 mg/dL 0.20-1.00 [facility] Comment on above: For patients on eltr ombopag therapy, use of Dimension [place] TBIL is not recommended. Protein [Mass/Vol] 7.4 g/dL 6.4-8.2 [facility] Blood erythrocytes count (nu mber/volume)Ordered By: Dr. Ornelas on 05-27-2022 RBC (Bld) [#/Vol] 4.28 10*6/uL 4.6-6.2 [facility] Blood hemoglobin measurement (mass/volume)Ordered By: Dr. Ornelas on 05-27-2022 Hemoglobin (Bld) [Mass/Vol] 12.8 g/dL 13.0-16.5 [facility] Blood platelet mean volumeOr dered By: Dr. Ornelas on 05-27-2022 Platelet mean volume (Bld) [Entitic vol] 10.4 fL 6.2-12.0 [facility] Determination of erythrocyte mean corpuscular volume (MCV)Ordered By: Dr. Ornelas on 05-27-2022 MCV (RBC) [Entitic vol] 88.8 fL 80-94 [facility] Direct bilirubinOrdered By: Dr. Rojas on 05-27-2022 Bilirubin.direct [Mass/Vol] 0.23 mg/dL 0.00-0.30 [facility] Hematocrit Auto (Bld) [Volum e fraction]Ordered By: Dr. Ornelas on 05-27-2022 Hematocrit (Bld) [Volume fraction] 38.0 % 40-54 [facility] INR in Blood by Coagulation assayOrdered By: Dr. Rojas on 05-27-2022 INR Coag (Bld) [Relative time] 1.2 {INR} [facility] Laboratory - Chemistry and C hemistry - challengeOrdered By: Dr. Ornelas on 05-27-2022 CO2 [Moles/Vol] 31.0 mmol/L 21.0-32.0 [facility] Urea nitrogen/Creatinine [Mass ratio] 8.9 mg/mg 10-20 [facility] Laboratory - Chemistry and C hemistry - challengeOrdered By: Dr. Rojas on 05-27-2022 ALP [Catalytic activity/Vol] 122 U/L 45-117 [facility] ALT [Catalytic activity/Vol] 32 U/L 16-61 [facility] Globulin (S) [Mass/Vol] 4.3 g/dL 2.2-4.2 [facility] Laboratory - CoagulationOrde red By: Dr. Rojas on 05-27-2022 aPTT Coag (Bld) [Time] 30.4 s 24.1-36.2 [facility] Coag (PPP) [Time] 14.5 s 11.7-14.9 [facility] Laboratory - Hematology and Cell countsOrdered By: Dr. Ornelas on 05-27-2022 Erythrocyte distribution width (RBC) [Entitic vol] 53.1 fL 35.1-43.9 [facility] Erythrocyte distribution width (RBC) [Ratio] 16.4 % 11.6-14.6 [facility] MCH (RBC) [Entitic mass] 29.9 pg 27.0-32.0 [facility] MCHC Auto (RBC) [Mass/Vol]Or dered By: Dr. Ornelas on 05-27-2022 MCHC (RBC) [Mass/Vol] 33.7 g/dL 32-36 [facility] No Panel InformationOrdered By: Dr. Ornelas on 05-27-2022 Estimated GFR (MDRD) Amer 129 mL/min >60 [facility] Comment on above: GFR Calc Estimated GFR (MDRD) Non-Af Amer 106 mL/min >60 [facility] Comment on above: Non- GFR Calc Platelets bldOrdered By: Dr. Ornelas on 05-27-2022 Platelets (Bld) [#/Vol] 144 10*3/uL 150-450 [facility] Serum or plasma albumin rufus urement (mass/volume)Ordered By: Dr. Rojas on 05-27-2022 Albumin [Mass/Vol] 3.1 g/dL 3.2-5.0 [facility] Serum or plasma calcium rufus urement (mass/volume)Ordered By: Dr. Ornelas on 05-27-2022 Calcium [Mass/Vol] 7.9 mg/dL 8.5-10.1 [facility] Serum or plasma creatinine m easurement (mass/volume)Ordered By: Dr. Ornelas on 05-27-2022 Creatinine [Mass/Vol] 0.79 mg/dL 0.70-1.30 [facility] Comment on above: The validity of the calculated GFR & GFRAA in patients over 70 years has not been determined. Clinical correlation is essential. Serum or plasma urea nitroge n measurement (mass/volume)Ordered By: Dr. Ornelas on 05-27-2022 Urea nitrogen [Mass/Vol] 7 mg/dL 7-18 [facility] Thin prep Papanicolaou smear with manual screeningOrdered By: Dr. Ornelas on 05-27-2022 Thin prep Papanicolaou smear with manual screening 8 5-15 [facility] Thin prep Papanicolaou smear with manual screeningOrdered By: Dr. Rojas on 05-27-2022 Thin prep Papanicolaou smear with manual screening 57 U/L 15-37 [facility] Basophil percentageon 2021 Chloride [Moles/Vol] 93 mmol/L 98-107 [facility] Work Phone: Glucose [Mass/Vol] 93 mg/dL 74-106 [facility] Work Phone: Potassium [Moles/Vol] 4.6 mmol/L 3.5-5.1 [facility] Work Phone: Sodium [Moles/Vol] 130 mmol/L 136-145 [facility] Work Phone: Laboratory - Chemistry and C hemistry - challengeon 04-13-2022 CO2 [Moles/Vol] 30.0 mmol/L 21.0-32.0 [facility] Work Phone: Urea nitrogen/Creatinine [Mass ratio] 12.5 mg/mg 10-20 [facility] Work Phone: No Panel Informationon 04-13 Estimated GFR (MDRD) Amer 163 mL/min >60 [facility] Work Phone: Comment on above: GFR Calc Estimated GFR (MDRD) Non-Af Amer 135 mL/min >60 [facility] Work Phone: Comment on above: Non- GFR Calc Serum or plasma calcium rufus urement (mass/volume)on 04-13-2022 Calcium [Mass/Vol] 8.0 mg/dL 8.5-10.1 [facility] Work Phone: Serum or plasma creatinine m easurement (mass/volume)on 04-13-2022 Creatinine [Mass/Vol] 0.64 mg/dL 0.70-1.30 [facility] Work Phone: Comment on above: The validity of the calculated GFR & GFRAA in patients over 70 years has not been determined. Clinical correlation is essential. Serum or plasma urea nitroge n measurement (mass/volume)on 04-13-2022 Urea nitrogen [Mass/Vol] 8 mg/dL 7-18 [facility] Work Phone: Thin prep Papanicolaou smear with manual screeningon 04-13-2022 Thin prep Papanicolaou smear with manual screening 7 5-15 [facility] Work Phone: Basophil percentageon 2021 Basophil percentage Comment . [facility] Work Phone: Comment on above: No monoclonality det ected.Performed at: [employer] [address] [id number] Director: Ganga Lyons PhD, Phone: [phone] Albumin Elph [Mass/Vol]on Albumin [Mass/Vol] 3.2 g/dL 2.9-4.4 [facility] Work Phone: Interpretation of serum or p lasma protein pattern by immunofixation (narrative resulton 03-09-2022 Protein Fractions Immunofixation Gadiel [Interp] See comment [facility] Work Phone: Comment on above: Result: Not Observed No Panel Informationon 03-09 Addendum Document Comment . [facility] Work Phone: Comment on above: Protein electrophore sis scan will follow via computer,mail, or print washer delivery. Whole Blood Vitamin B1 Level 278.0 nmol/L 66.5-200.0 [facility] Work Phone: Comment on above: Performed at: [employer] [address] [id number] Director: Ganga Lyons PhD, Phone: [phone] at: [employer] [id number] Director: Adair Zaman MD, Phone: [phone] Serum [id number] measu rement by electrophoresison 03-09-2022 Alpha 1 globulin Elph [Mass/Vol] 0.2 g/dL 0.0-0.4 [facility] Work Phone: Alpha 1 globulin Elph [Mass/Vol] 0.9 g/dL 0.4-1.0 [facility] Work Phone: Serum globulin measurement ( mass/volume)on 03-09-2022 Globulin (S) [Mass/Vol] 3.9 g/dL 2.2-3.9 [facility] Work Phone: Serum or plasma IgA measurem ent (mass/volume)on 03-09-2022 IgA [Mass/Vol] 395 mg/dL 90-386 [facility] Work Phone: Serum or plasma IgG measurem ent (mass/volume)on 03-09-2022 IgG [Mass/Vol] 1332 mg/dL 603-1613 [facility] Work Phone: Serum or plasma IgM measurem ent (mass/volume)on 03-09-2022 IgM [Mass/Vol] 245 mg/dL 20-172 [facility] Work Phone: Serum or plasma beta globuli n measurement by electrophoresis (mass/volume)on 03-09-2022 Beta globulin Elph [Mass/Vol] 1.2 g/dL 0.7-1.3 [facility] Work Phone: Serum or plasma gamma globul in measurement by electrophoresis (mass/volume)on 03-09-2022 Gamma globulin Elph [Mass/Vol] 1.5 g/dL 0.4-1.8 [facility] Work Phone: Serum or plasma immunoelectr ophoresis interpretation (nominal result)on 03-09-2022 Interpretation IEP [Interp] Comment . [facility] Work Phone: Comment on above: No monoclonality det ected. Thin prep Papanicolaou smear with manual screeningon 03-09-2022 Thin prep Papanicolaou smear with manual screening 0.9 0.7-1.7 [facility] Work Phone: Total protein bloodon 2021 Protein [Mass/Vol] 7.1 g/dL 6.0-8.5 [facility] Work Phone: Basophil percentageon 2021 Bilirubin [Mass/Vol] 0.30 mg/dL 0.20-1.00 [facility] Work Phone: Comment on above: For patients on eltr ombopag therapy, use of Dimension [place] TBIL is not recommended. Chloride [Moles/Vol] 106 mmol/L 98-107 [facility] Work Phone: Glucose [Mass/Vol] 114 mg/dL 74-106 [facility] Work Phone: Comment on above: Fasting Glucose resu lt from 100 to 125 mg/dL suggests IMPAIRED HOMEOSTASIS per A.D.A. criteria. Potassium [Moles/Vol] 4.0 mmol/L 3.5-5.1 [facility] Work Phone: Protein [Mass/Vol] 7.1 g/dL 6.4-8.2 [facility] Work Phone: Sodium [Moles/Vol] 139 mmol/L 136-145 [facility] Work Phone: WBC (Bld) [#/Vol] 3.6 10*3/uL 4.4-11.0 [facility] Work Phone: Blood erythrocytes count (nu mber/volume)on 02-26-2022 RBC (Bld) [#/Vol] 4.51 10*6/uL 4.6-6.2 [facility] Work Phone: Blood hemoglobin measurement (mass/volume)on 02-26-2022 Hemoglobin (Bld) [Mass/Vol] 13.0 g/dL 13.0-16.5 [facility] Work Phone: Blood platelet mean volumeon 02-26-2022 Platelet mean volume (Bld) [Entitic vol] 10.5 fL 6.2-12.0 [facility] Work Phone: Determination of erythrocyte mean corpuscular volume (MCV)on 02-26-2022 MCV (RBC) [Entitic vol] 91.6 fL 80-94 [facility] Work Phone: Hematocrit Auto (Bld) [Volum e fraction]on 02-26-2022 Hematocrit (Bld) [Volume fraction] 41.3 % 40-54 [facility] Work Phone: Laboratory - Chemistry and C hemistry - challengeon 02-26-2022 ALP [Catalytic activity/Vol] 129 U/L 45-117 [facility] Work Phone: ALT [Catalytic activity/Vol] 18 U/L 16-61 [facility] Work Phone: CO2 [Moles/Vol] 27.0 mmol/L 21.0-32.0 [facility] Work Phone: Cobalamin (Vitamin B12) [Mass/Vol] 453 pg/mL 211-911 [facility] Work Phone: Globulin (S) [Mass/Vol] 4.4 g/dL 2.2-4.2 [facility] Work Phone: Urea nitrogen/Creatinine [Mass ratio] 12.4 mg/mg 10-20 [facility] Work Phone: Laboratory - Hematology and Cell countson 02-26-2022 Erythrocyte distribution width (RBC) [Entitic vol] 57.4 fL 35.1-43.9 [facility] Work Phone: Erythrocyte distribution width (RBC) [Ratio] 17.0 % 11.6-14.6 [facility] Work Phone: MCH (RBC) [Entitic mass] 28.8 pg 27.0-32.0 [facility] Work Phone: MCHC Auto (RBC) [Mass/Vol]on 02-26-2022 MCHC (RBC) [Mass/Vol] 31.5 g/dL 32-36 [facility] Work Phone: No Panel Informationon 02-26 Estimated GFR (MDRD) Amer 162 mL/min >60 [facility] Work Phone: Comment on above: GFR Calc Estimated GFR (MDRD) Non-Af Amer 134 mL/min >60 [facility] Work Phone: Comment on above: Non- GFR Calc Free Lambda Light Chains, Quant 31.0 mg/L 5.7-26.3 [facility] Work Phone: Thyroid Stimulating Hormone (TSH) 1.98 uIU/mL 0.358-3.74 [facility] Work Phone: Platelets bldon 02-26-2022 Platelets (Bld) [#/Vol] 199 10*3/uL 150-450 [facility] Work Phone: Serum immunoglobulin kappa l ight chains/immunoglobulin lambda light chains mass ratioon 02-26-2022 Immunoglobulin light chains.kappa/Immunoglobu catrina light chains.lambda (S) [Mass ratio] 1.11 0.26-1.65 [facility] Work Phone: Comment on above: Performed at: [facility] [employer] [address] [id number] Director: Ganga Lyons PhD, Phone: [phone] Serum or plasma albumin rufus urement (mass/volume)on 02-26-2022 Albumin [Mass/Vol] 2.7 g/dL 3.2-5.0 [facility] Work Phone: Serum or plasma albumin/glob ulin mass ratioon 02-26-2022 Albumin/Globulin [Mass ratio] 0.6 {ratio} 0.9-2.4 [facility] Work Phone: Serum or plasma calcium rufus urement (mass/volume)on 02-26-2022 Calcium [Mass/Vol] 7.7 mg/dL 8.5-10.1 [facility] Work Phone: Serum or plasma creatinine m easurement (mass/volume)on 02-26-2022 Creatinine [Mass/Vol] 0.65 mg/dL 0.70-1.30 [facility] Work Phone: Comment on above: The validity of the calculated GFR & GFRAA in patients over 70 years has not been determined. Clinical correlation is essential. Serum or plasma folate measu rement (mass/volume)on 02-26-2022 Folate [Mass/Vol] 7.60 ng/mL 3.1-55.4 [facility] Work Phone: Serum or plasma immunoglobul in kappa light chains measurement (mass/volume)on 02-26-2022 Immunoglobulin light chains.kappa [Mass/Vol] 34.5 mg/L 3.3-19.4 [facility] Work Phone: Serum or plasma urea nitroge n measurement (mass/volume)on 02-26-2022 Urea nitrogen [Mass/Vol] 8 mg/dL 7-18 [facility] Work Phone: Thin prep Papanicolaou smear with manual screeningon 02-26-2022 Thin prep Papanicolaou smear with manual screening 20 U/L 15-37 [facility] Work Phone: Thin prep Papanicolaou smear with manual screening 6 5-15 [facility] Work Phone: Whole blood hemoglobin A1c/t otal hemoglobin ratio (mass fraction)on 02-26-2022 HbA1c (Bld) [Mass fraction] 5.4 % 3.8-5.6 [facility] Work Phone: Comment on above: Normal < 5.7 % Predi abetic 5.7 - 6.4 % Diabetic >or= 6.5 % Please note range changes. Paul 04-19-2021 [facility] CARLIN SMITH ([id number]) 1960 Date Time Provider Department 04/19/21 [facility] During your visit today, we recorded the following information about you: Ewa Paula 04/19/2021 10:05 AM Signed [facility] called to refill allopurinol and dicyclomine. [...] symptoms Date Reviewed: 04/24/2020 Reviewed by: Ene (Transportation Program Director) Fercho - Fully Assessed Reason for Visit: [...] Status:Closed by NIALL SHEFFIELD MA on 04/19/21 [facility] OBSOLETEon 04-19-2021 OBSOLETE Refill ([facility]) CARLIN SMITH ([id number]) 1960 Date Time Provider Department 04/19/21 PODLOGAR, [...] mouth once daily. BARBARA: No GREGG-04/24/20 with [employer] INS[facility] Labs-01/15/20 NOV-none RX INSTRUCTIONS: Pharmacy initiated this [...] symptoms Date Reviewed: 04/24/2020 Reviewed by: Ene (Transportation Program Director) Fercho - Fully Assessed Reason for Visit: [...] deficiency [E (more content not included)... Normal [place] Culture, urine Bacteria identified Cx Nom (U) Presumptive E. coli [facility] Work Phone: Bacteria identified Cx Nom (U) Acinetobacter baumannii [facility] Work Phone: Vital Signs Date Time Vital Sign Value Performing Clinician Facility 12-13-2024 07:23-0400 Body height 187.[address] Chalo Mclean MD Work Phone: [facility] 12-13-2024 07:23-0400 Body mass index (BMI) [Ratio] 51.3 kg/m2 Dr. Chalo Mclean MD Work Phone: 3(116)519-801476 [place] [address] 12-13-2024 07:23-0400 Body weight 181.[address] Chalo Mclean MD Work Phone: 6(550)611-129676 [place] [address] 12-13-2024 07:23-0400 Diastolic blood pressure 76 mm[Hg] Dr. Chalo Mclean MD Work Phone: [facility] 12-13-2024 07:23-0400 Heart rate 90 /min Dr. Chalo Mclean MD Work Phone: [facility] 12-13-2024 07:23-0400 Respiratory rate 20 /min Dr. Chalo Mclean MD Work Phone: [facility] 12-13-2024 07:23-0400 SaO2% (BldA) [Mass fraction] 92 % Dr. Chalo Mclean MD Work Phone: [facility] 12-13-2024 07:23-0400 Systolic blood pressure 118 mm[Hg] Dr. Chalo Mclean MD Work Phone: [facility] 08-29-2024 20:41-0500 Body temperature 98.1 [degF] Dr. Chalo Mclean MD Work Phone: [facility] 08-29-2024 20:41-0500 Diastolic blood pressure 84 mm[Hg] Dr. Chalo Mclean MD Work Phone: 4(997)179-298176 [place] [address] 08-29-2024 20:41-0500 Heart rate 90 /min Dr. Chalo Mclean MD Work Phone: 2(245)308-604573 [place] [address] 08-29-2024 20:41-0500 Inhaled oxygen flow rate 3 L/min Dr. Chalo Mclean MD Work Phone: 4(975)239-957073 [place] [address] 08-29-2024 20:41-0500 Respiratory rate 20 /min Dr. Chalo Mclean MD Work Phone: 4(953)349-240973 [place] [address] 08-29-2024 20:41-0500 SaO2% (BldA) [Mass fraction] 95 % Dr. Chalo Mclean MD Work Phone: 5(954)601-188773 [place] [address] 08-29-2024 20:41-0500 Systolic blood pressure 125 mm[Hg] Dr. Chalo Mclean MD Work Phone: 6(896)198-705873 [place] [address] 08-28-2024 22:50-0500 Inhaled oxygen concentration 3 % Dr. Chalo Mclean MD Work Phone: 1(807)964-831673 [place] [address] 08-28-2024 11:44-0500 Body weight 190.[address] Chalo Mclean MD Work Phone: 5(508)489-139673 [place] [address] 08-23-2024 14:53-0500 Body mass index (BMI) [Ratio] 53.8 kg/m2 Dr. Chalo Mclean MD Work Phone: 5(718)352-936573 [place] [address] 03-08-2023 09:20-0400 Body height 187.[address] Chalo Mclean Work Phone: 3(306)585-208573 [place] [address] 03-08-2023 09:20-0400 Body mass index (BMI) [Ratio] 53.8 kg/m2 Dr. Chalo Mclean Work Phone: 2(037)372-448673 [place] [address] 03-08-2023 09:20-0400 Body weight 190.[address] Chalo Mclean Work Phone: 5(626)903-168473 [place] [address] 03-08-2023 09:20-0400 Diastolic blood pressure 95 mm[Hg] Dr. Chalo Mclean Work Phone: 5(802)864-758473 [place] [address] 03-08-2023 09:20-0400 Heart rate 82 /min Dr. Chalo Mclean Work Phone: [facility] 03-08-2023 09:20-0400 Respiratory rate 22 /min Dr. Chalo Mclean Work Phone: [facility] 03-08-2023 09:20-0400 SaO2% (BldA) [Mass fraction] 95 % Dr. Chalo Mclean Work Phone: [facility] 03-08-2023 09:20-0400 Systolic blood pressure 131 mm[Hg] Dr. Chalo Mclean Work Phone: [facility] 02-13-2023 11:35-0400 Body temperature 98 [degF] Dr. Chalo Mclean Work Phone: [facility] 02-13-2023 11:35-0400 Body weight 212.[address] Chalo Mclean Work Phone: [facility] 02-13-2023 11:35-0400 Diastolic blood pressure 84 mm[Hg] Dr. Chalo Mclean Work Phone: [facility] 02-13-2023 11:35-0400 Heart rate 98 /min Dr. Chalo Mclean Work Phone: [facility] 02-13-2023 11:35-0400 Respiratory rate 17 /min Dr. Chalo Mclean Work Phone: [facility] 02-13-2023 11:35-0400 SaO2% (BldA) [Mass fraction] 96 % Dr. Chalo Mclean Work Phone: [facility] 02-13-2023 11:35-0400 Systolic blood pressure 126 mm[Hg] Dr. Chalo Mclean Work Phone: [facility] 01-28-2023 13:22-0400 Body temperature 98.1 [degF] Dr. Chalo Mclean Work Phone: [facility] 01-28-2023 13:22-0400 Diastolic blood pressure 78 mm[Hg] Dr. Chalo Mclean Work Phone: [facility] 01-28-2023 13:22-0400 Heart rate 84 /min Dr. Chalo Mclean Work Phone: [facility] 01-28-2023 13:22-0400 Respiratory rate 18 /min Dr. Chalo Mclean Work Phone: [facility] 01-28-2023 13:22-0400 SaO2% (BldA) [Mass fraction] 97 % Dr. Chalo Mclean Work Phone: [facility] 01-28-2023 13:22-0400 Systolic blood pressure 96 mm[Hg] Dr. Chalo Mclean Work Phone: [facility] 01-28-2023 06:00-0400 Body mass index (BMI) [Ratio] 56.3 kg/m2 Dr. Chalo Mclean Work Phone: 2(497)695-278276 [place] [address] 01-28-2023 06:00-0400 Body weight 199.[address] Chalo Mclean Work Phone: [facility] 01-28-2023 02:20-0400 Inhaled oxygen flow rate 2 L/min Dr. Chalo Mclean Work Phone: [facility] 01-26-2023 14:36-0400 Body height 187.[address] Chalo Mclean Work Phone: [facility] 01-26-2023 11:31-0400 Body temperature 96.3 [degF] Dr. Chalo Mclean Work Phone: [facility] 01-26-2023 11:31-0400 Diastolic blood pressure 63 mm[Hg] Dr. Chalo Mclean Work Phone: [facility] 01-26-2023 11:31-0400 Heart rate 83 /min Dr. Chalo Mclean Work Phone: [facility] 01-26-2023 11:31-0400 Respiratory rate 15 /min Dr. Chalo Mclean Work Phone: [facility] 01-26-2023 11:31-0400 SaO2% (BldA) [Mass fraction] 99 % Dr. Chalo Mclean Work Phone: [facility] 01-26-2023 11:31-0400 Systolic blood pressure 112 mm[Hg] Dr. Chalo Mclean Work Phone: [facility] 01-26-2023 09:28-0400 Body height 187.[address] Chalo Mclean Work Phone: 6(400)512-549476 [place] [address] 01-26-2023 09:28-0400 Body mass index (BMI) [Ratio] 58.9 kg/m2 Dr. Chalo Mclean Work Phone: 8(592)225-097176 [place] [address] 01-26-2023 09:28-0400 Body weight 208.[address] Chalo Mclean Work Phone: 0(726)654-424031 [address] 12-27-2022 09:26-0400 Body height 187.[address] Chalo Mclean Work Phone: 3(436)553-815431 [address] 12-27-2022 09:26-0400 Body mass index (BMI) [Ratio] 56.8 kg/m2 Dr. Chalo Mclean Work Phone: 9(651)625-337931 [address] 12-27-2022 09:26-0400 Body weight 200.[address] Chalo Mclean Work Phone: 8(891)473-763531 [address] 12-27-2022 09:26-0400 Diastolic blood pressure 85 mm[Hg] Dr. Chalo Mclean Work Phone: 6(759)920-777873 [place] [address] 12-27-2022 09:26-0400 Heart rate 118 /min Dr. Chalo Mclean Work Phone: 1(279)173-763076 [place] [address] 12-27-2022 09:26-0400 Respiratory rate 16 /min Dr. Chalo Mclean Work Phone: 9(647)991-052776 [place] [address] 12-27-2022 09:26-0400 Systolic blood pressure 128 mm[Hg] Dr. Chalo Mclean Work Phone: 8(093)896-695431 [address] 12-23-2022 11:23-0400 Body mass index (BMI) [Ratio] 56.9 kg/m2 Dr. Chalo Mclean Work Phone: [facility] 12-23-2022 11:23-0400 Body temperature 98.5 [degF] Dr. Chalo Mclean Work Phone: [facility] 12-23-2022 11:23-0400 Body weight [address] Chalo Mclean Work Phone: [facility] 12-23-2022 11:23-0400 Diastolic blood pressure 80 mm[Hg] Dr. Chalo Mclean Work Phone: 3(935)378-950676 [place] [address] 12-23-2022 11:23-0400 Heart rate 131 /min Dr. Chalo Mclean Work Phone: 8(851)215-981576 [place] [address] 12-23-2022 11:23-0400 Respiratory rate 16 /min Dr. Chalo Mclean Work Phone: 6(739)831-371331 [address] 12-23-2022 11:23-0400 SaO2% (BldA) [Mass fraction] 98 % Dr. Chalo Mclean Work Phone: [facility] 12-23-2022 11:23-0400 Systolic blood pressure 133 mm[Hg] Dr. Chalo Mclean Work Phone: 6(930)300-727031 [address] 09-16-2022 14:01-0500 Body height 187.[address] Chalo Mclean Work Phone: 5(216)733-925676 [place] [address] 09-16-2022 14:01-0500 Diastolic blood pressure 102 mm[Hg] Dr. Chalo Mclean Work Phone: [facility] 09-16-2022 14:01-0500 Heart rate 88 /min Dr. Chalo Mclean Work Phone: [facility] 09-16-2022 14:01-0500 SaO2% (BldA) [Mass fraction] 93 % Dr. Chalo Mclean Work Phone: [facility] 09-16-2022 14:01-0500 Systolic blood pressure 187 mm[Hg] Dr. Chalo Mclean Work Phone: 6(112)888-660231 [address] 08-30-2022 14:50-0500 Diastolic blood pressure 78 mm[Hg] Dr. Chalo Mclean Work Phone: [facility] 08-30-2022 14:50-0500 Heart rate 81 /min Dr. Chalo Mclean Work Phone: [facility] 08-30-2022 14:50-0500 Respiratory rate 16 /min Dr. Chalo Mclean Work Phone: [facility] 08-30-2022 14:50-0500 SaO2% (BldA) [Mass fraction] 95 % Dr. Chalo Mclean Work Phone: [facility] 08-30-2022 14:50-0500 Systolic blood pressure 145 mm[Hg] Dr. Chalo Mclean Work Phone: [facility] 08-30-2022 14:45-0500 Body temperature 99.5 [degF] Dr. Chalo Mclean Work Phone: [facility] 08-30-2022 13:09-0500 Body height 187.[address] Chalo Mclean Work Phone: [facility] 08-30-2022 13:09-0500 Body mass index (BMI) [Ratio] 57.1 kg/m2 Dr. Chalo Mclean Work Phone: [facility] 08-30-2022 13:09-0500 Body weight 201.[address] Chalo Mclean Work Phone: [facility] 08-24-2022 13:48-0500 Body mass index (BMI) [Ratio] 55.8 kg/m2 Dr. Chalo Mclean Work Phone: [facility] 08-24-2022 13:48-0500 Body weight 197.[address] Chalo Mclean Work Phone: [facility] 08-24-2022 13:48-0500 Diastolic blood pressure 93 mm[Hg] Dr. Chalo Mclean Work Phone: [facility] 08-24-2022 13:48-0500 Heart rate 85 /min Dr. Chalo Mclean Work Phone: [facility] 08-24-2022 13:48-0500 SaO2% (BldA) [Mass fraction] 95 % Dr. Chalo Mclean Work Phone: [facility] 08-24-2022 13:48-0500 Systolic blood pressure 155 mm[Hg] Dr. Chalo Mclean Work Phone: [facility] 07-04-2022 14:08-0500 Body temperature 98.2 [degF] Dr. Chalo Mclean Work Phone: [facility] 07-04-2022 14:08-0500 Diastolic blood pressure 90 mm[Hg] Dr. Chalo Mclean Work Phone: [facility] 07-04-2022 14:08-0500 Heart rate 88 /min Dr. Chalo Mclean Work Phone: [facility] 07-04-2022 14:08-0500 Respiratory rate 18 /min Dr. Chalo Mclean Work Phone: [facility] 07-04-2022 14:08-0500 SaO2% (BldA) [Mass fraction] 99 % Dr. Chalo Mclean Work Phone: [facility] 07-04-2022 14:08-0500 Systolic blood pressure 160 mm[Hg] Dr. Chalo Mclean Work Phone: [facility] 06-03-2022 12:39-0400 Diastolic blood pressure 81 mm[Hg] Dr. Chalo Mclean Work Phone: [facility] 06-03-2022 12:39-0400 Heart rate 86 /min Dr. Chalo Mclean Work Phone: [facility] 06-03-2022 12:39-0400 Respiratory rate 17 /min Dr. Chalo Mclean Work Phone: [facility] 06-03-2022 12:39-0400 SaO2% (BldA) [Mass fraction] 96 % Dr. Chalo Mclean Work Phone: [facility] 06-03-2022 12:39-0400 Systolic blood pressure 142 mm[Hg] Dr. Chalo Mclean Work Phone: [facility] 06-03-2022 10:17-0400 Body height 187.[address] Chalo Mclean Work Phone: [facility] Work Phone: 06-03-2022 10:17-0400 Body mass index (BMI) [Ratio] 60 kg/m2 Dr. Chalo Mclean Work Phone: [facility] 06-03-2022 10:17-0400 Body temperature 97 [degF] Dr. Chalo Mclean Work Phone: [facility] 06-03-2022 10:17-0400 Body weight 212.[address] Chalo Mclean Work Phone: [facility] 05-03-2022 11:14-0400 Body temperature 98.2 [degF] Dr. Chalo Mclean Work Phone: [facility] Work Phone: 05-03-2022 11:14-0400 Diastolic blood pressure 74 mm[Hg] Dr. Chalo Mclean Work Phone: [facility] Work Phone: 05-03-2022 11:14-0400 Heart rate 64 /min Dr. Chalo Mclean Work Phone: [facility] Work Phone: 05-03-2022 11:14-0400 Respiratory rate 18 /min Dr. Chalo Mclean Work Phone: [facility] Work Phone: 05-03-2022 11:14-0400 SaO2% (BldA) [Mass fraction] 98 % Dr. Chalo Mclean Work Phone: [facility] Work Phone: 05-03-2022 11:14-0400 Systolic blood pressure 121 mm[Hg] Dr. Chalo Mclean Work Phone: [facility] Work Phone: 04-20-2022 14:46-0400 Body temperature 96.9 [degF] Dr. Chalo Mclean Work Phone: [facility] Work Phone: 04-20-2022 14:46-0400 Diastolic blood pressure 95 mm[Hg] Dr. Chalo Mclean Work Phone: [facility] Work Phone: 04-20-2022 14:46-0400 Heart rate 80 /min Dr. Chalo Mclean Work Phone: [facility] Work Phone: 04-20-2022 14:46-0400 Respiratory rate 18 /min Dr. Chalo Mclean Work Phone: [facility] Work Phone: 04-20-2022 14:46-0400 Systolic blood pressure 147 mm[Hg] Dr. Chalo Mclean Work Phone: [facility] Work Phone: 04-08-2022 14:23-0400 Body height 187.[address] Chalo Mclean Work Phone: [facility] Work Phone: 04-08-2022 14:12-0400 Body mass index (BMI) [Ratio] 59.3 kg/m2 Dr. Chalo Mclean Work Phone: [facility] Work Phone: 04-08-2022 14:12-0400 Body temperature 97.8 [degF] Dr. Chalo Mclean Work Phone: [facility] Work Phone: 04-08-2022 14:12-0400 Body weight 209.[address] Chalo Mclean Work Phone: [facility] Work Phone: 04-08-2022 14:12-0400 Diastolic blood pressure 83 mm[Hg] Dr. Chalo Mclean Work Phone: [facility] Work Phone: 04-08-2022 14:12-0400 Heart rate 74 /min Dr. Chalo Mclean Work Phone: [facility] Work Phone: 04-08-2022 14:12-0400 Respiratory rate 17 /min Dr. Chalo Mclean Work Phone: [facility] Work Phone: 04-08-2022 14:12-0400 SaO2% (BldA) [Mass fraction] 95 % Dr. Chalo Mclean Work Phone: [facility] Work Phone: 04-08-2022 14:12-0400 Systolic blood pressure 136 mm[Hg] Dr. Chalo Mclean Work Phone: [facility] Work Phone: 04-06-2022 13:41-0400 Body temperature 97.8 [degF] Dr. Chalo Mclean Work Phone: [facility] Work Phone: 04-06-2022 13:41-0400 Diastolic blood pressure 95 mm[Hg] Dr. Chalo Mclean Work Phone: [facility] Work Phone: 04-06-2022 13:41-0400 Systolic blood pressure 155 mm[Hg] Dr. Chalo Mclean Work Phone: [facility] Work Phone: 03-30-2022 14:38-0400 Body height 187.[address] Chalo Mclean Work Phone: [facility] Work Phone: 03-30-2022 14:38-0400 Body mass index (BMI) [Ratio] 58.8 kg/m2 Dr. Chalo Mclean Work Phone: [facility] Work Phone: 03-30-2022 14:38-0400 Body weight 207.[address] Chalo Mclean Work Phone: [facility] Work Phone: 03-30-2022 14:38-0400 Diastolic blood pressure 97 mm[Hg] Dr. Chalo Mclean Work Phone: [facility] Work Phone: 03-30-2022 14:38-0400 Heart rate 82 /min Dr. Chalo Mclean Work Phone: [facility] Work Phone: 03-30-2022 14:38-0400 Respiratory rate 18 /min Dr. Chalo Mclean Work Phone: [facility] Work Phone: 03-30-2022 14:38-0400 Systolic blood pressure 150 mm[Hg] Dr. Chalo Mclean Work Phone: [facility] Work Phone: 03-30-2022 13:23-0400 Body temperature 98 [degF] Dr. Chalo Mclean Work Phone: [facility] Work Phone: 03-30-2022 13:23-0400 Diastolic blood pressure 94 mm[Hg] Dr. Chalo Mclean Work Phone: [facility] Work Phone: 03-30-2022 13:23-0400 Heart rate 82 /min Dr. Chalo Mclean Work Phone: [facility] Work Phone: 03-30-2022 13:23-0400 Respiratory rate 18 /min Dr. Chalo Mclean Work Phone: [facility] Work Phone: 03-30-2022 13:23-0400 Systolic blood pressure 150 mm[Hg] Dr. Chalo Mclean Work Phone: [facility] Work Phone: 02-24-2022 10:11-0400 Body height 187.[address] Chalo Mclean Work Phone: [facility] Work Phone: 02-24-2022 10:11-0400 Body mass index (BMI) [Ratio] 58.8 kg/m2 Dr. Chalo Mclean Work Phone: [facility] Work Phone: 02-24-2022 10:11-0400 Body temperature 98 [degF] Dr. Chalo Mclean Work Phone: [facility] Work Phone: 02-24-2022 10:11-0400 Body weight 207.[address] Chalo Mclean Work Phone: [facility] Work Phone: 02-24-2022 10:11-0400 Diastolic blood pressure 101 mm[Hg] Dr. Chalo Mclean Work Phone: [facility] Work Phone: 02-24-2022 10:11-0400 Heart rate 82 /min Dr. Chalo Mclean Work Phone: [facility] Work Phone: 02-24-2022 10:11-0400 Respiratory rate 17 /min Dr. Chalo Mclean Work Phone: [facility] Work Phone: 02-24-2022 10:11-0400 SaO2% (BldA) [Mass fraction] 96 % Dr. Chalo Mclean Work Phone: [facility] Work Phone: 02-24-2022 10:11-0400 Systolic blood pressure 152 mm[Hg] Dr. Chalo Mclean Work Phone: [facility] Work Phone: Encounters Encounter Date Encounter Type Care Provider Facility Start: 12-23-2024 End: 12-23-[address] Chalo Mclean MD Work Phone: 9(582)249-[address]597 [place] [address] Work Phone: Start: 12-23-2024 End: 12-23-[address] 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 Chapo Sims DO -[facility] Work Phone: Start: 08-28-2024 Non-patient / Non-visit Dr. Sherley Larsen MD -[facility] Work Phone: Start: 08-26-2024 ambulatory Semaj galvezty:[facility] Start: 08-23-2024 End: 08-23-2024 ambulatory Chalo Chi Vinay Facility:[facility] Start: 08-23-2024 ambulatory Sherley Larsen Facility :[facility] Start: 08-23-2024 End: 08-29-2024 Evaluation and management of inpatient Dr. Chapo Sims DO -[facility] Work Phone: Start: 05-08-2024 End: 05-08-2024 ambulatory [facility] Facility:[facility] Start: 05-02-2024 End: 05-02-2024 ambulatory [facility] Facility:[facility] Start: 01-16-2024 End: 01-23-2024 ambulatory Ankit Aguilar Facility:[facility] Start: 03-14-2023 End: 03-14-[address] Chalo Mclean Work Phone: [facility] Work Phone: Start: 03-14-2023 End: 03-14-[address] Chalo Mclean Work Phone: [facility]-Pulmonary Services/Neurology Work Phone: Start: 03-08-2023 End: 03-08-[address] Chalo Mclean Work Phone: [facility] Work Phone: Start: 03-08-2023 End: 03-08-[address] Chalo Mclean Work Phone: [facility] Work Phone: Start: 03-03-2023 End: 03-03-[address] Chalo Mclean Work Phone: [facility] Work Phone: Start: 03-03-2023 End: 03-03-[address] Chalo Mclean Work Phone: [facility]-Laboratory, Phy Office [address] [place] [address] Start: 02-13-2023 End: 02-13-[address] Chalo Mclean Work Phone: [facility] Work Phone: Start: 02-01-2023 End: 02-01-[address] Chalo Mclean Work Phone: [facility]-Laboratory Start: 01-28-2023 Non-patient / Non-visit Dr. Chalo Mclean Work Phone: [facility] Start: 01-27-2023 Non-patient / Non-visit Dr. Chalo Mclean Work Phone: [facility] Start: 01-26-2023 End: 01-28-2023 Evaluation and management of inpatient Dr. Chalo Mclean Work Phone: [facility]-Progressive Care Unit Start: 01-17-2023 End: 01-17-[address] Chalo Mclean Work Phone: [facility] Work Phone: Start: 01-17-2023 End: 01-17-[address] Chalo Mclean Work Phone: [facility]-Laboratory Start: 12-27-2022 End: 12-27-[address] Chalo Mclean Work Phone: [facility] Start: 12-23-2022 End: 12-23-[address] Chalo Mclean Work Phone: [facility] Work Phone: Start: 12-23-2022 End: 12-23-[address] Chalo Mclean Work Phone: [facility]-Pre-Admission Testing Start: 12-23-2022 End: 12-23-2022 Non-patient / Non-visit Dr. Chalo Mclean Work Phone: [facility] Start: 09-23-2022 End: 09-23-[address] Chalo Mclean Work Phone: [facility] Orthopaedic [facility] Start: 09-16-2022 End: 09-16-[address] Chalo Mclean Work Phone: [facility] Gastroenterology Start: 09-07-2022 End: 09-07-[address] Chalo Mclean Work Phone: [facility] Work Phone: Start: 09-07-2022 End: 09-07-[address] Chalo Mclean Work Phone: [facility]-Laboratory, Phy Office 3rd Flr Start: 08-30-2022 Non-patient / Non-visit Dr. Chalo Mclean Work Phone: [facility] [place] Start: 08-30-2022 End: 08-30-2022 Admission to same day surgery center Dr. Chalo Mclean Work Phone: [facility]-Endoscopy Start: 08-30-2022 End: 08-30-[address] Chalo Mlcean Work Phone: [facility] Work Phone: Start: 08-24-2022 End: 08-24-[address] Chalo Mclean Work Phone: [facility] Gastroenterology Start: 08-23-2022 End: 08-23-[address] Chalo Mclean Work Phone: [facility] Work Phone: Start: 08-23-2022 End: 08-23-[address] Chalo Mclean Work Phone: [facility]-Laboratory Start: 07-04-2022 End: 07-04-[address] Chalo Mclean Work Phone: [facility] Neurology Start: 06-09-2022 End: 06-09-[address] Chalo Mclean Work Phone: [facility] Work Phone: Start: 06-09-2022 End: 06-09-[address] Chalo Mclean Work Phone: [facility]-Sleep Lab Start: 06-08-2022 End: 06-08-[address] Chalo Mclean Work Phone: [facility]-Laboratory, [facility] Office 3rd Flr Start: 06-03-2022 End: 06-03-2022 Emergency department patient visit Dr. Chalo Mclean Work Phone: [facility]-Emergency Department Start: 06-02-2022 End: 06-02-[address] Chalo Mclean Work Phone: [facility] Work Phone: Start: 06-02-2022 End: 06-02-[address] Chalo Mclean Work Phone: [facility]-Laboratory, y Office 3rd Flr Start: 06-02-2022 End: 06-02-[address] Chalo Mclean Work Phone: [facility] Work Phone: Start: 06-02-2022 End: 06-02-[address] Chalo Mclean Work Phone: [facility]-Radiology, [facility] Start: 05-27-2022 End: 05-27-[address] Chalo Mclean Work Phone: [facility] Work Phone: Start: 05-27-2022 End: 05-27-[address] Chalo Mclean Work Phone: [facility]-Laboratory, y Office 3rd Flr Start: 05-27-2022 End: 05-27-[address] Chalo Mclean Work Phone: [facility]-Pre-Admission Testing Start: 05-27-2022 Non-patient / Non-visit Dr. Chalo Mclean Work Phone: [facility] Start: 05-03-2022 End: 05-03-[address] Chalo Mclean Work Phone: [facility] Start: 04-21-2022 End: 04-21-[address] Chalo Mclean Work Phone: [facility] Work Phone: Start: 04-21-2022 End: 04-21-[address] Chalo Mclean Work Phone: [facility]-Sleep Lab Start: 04-20-2022 Non-patient / Non-visit Dr. Chalo Mclean Work Phone: [facility] Start: 04-20-2022 End: 04-20-[address] Chalo Mclean Work Phone: [facility] Work Phone: Start: 04-20-2022 End: 04-20-[address] Chalo Mclean Work Phone: [facility] Start: 04-13-2022 Non-patient / Non-visit Dr. Chalo Mclean Work Phone: [facility] Start: 04-13-2022 End: 04-13-[address] Chalo Mclean Work Phone: [facility] Work Phone: Start: 04-13-2022 End: 04-13-[address] [facility] Start: 04-08-2022 End: 04-08-[address] [facility] Start: 04-06-2022 Non-patient / Non-visit Dr. Chalo Mclean Work Phone: [facility] Start: 04-06-[address] Chalo macias Work Phone: [facility] Start: 04-01-2022 End: 04-01-[address] [facility] Start: 03-30-2022 Non-patient / Non-visit Dr. Chalo Mclean Work Phone: [facility] Start: 03-30-2022 End: 03-30-[address] Chalo Mclean Work Phone: [facility] Start: 03-30-[address] Chalo macias Work Phone: [facility] Start: 03-29-2022 End: 03-29-[address] Chalo Mclean Work Phone: [facility]-Sleep Lab Start: 03-23-2022 Non-patient / Non-visit Dr. Chalo Mclean Work Phone: [facility] [place] Start: 03-16-2022 Non-patient / Non-visit Dr. Chalo Mclean Work Phone: [facility] Start: 03-16-2022 End: 03-20-[address] Chalo Mclean Work Phone: [facility] Start: 03-16-[address] Chalo macias Work Phone: [facility] Start: 03-11-2022 End: 03-11-[address] Chalo Mclean Work Phone: [facility]-Laboratory, Specimen Start: 03-09-2022 End: 03-09-[address] Chalo Mclean Work Phone: [facility]-Laboratory Start: 02-26-2022 End: 02-26-[address] Chalo Mclean Work Phone: [facility]-Laboratory Start: 02-24-2022 End: 02-24-[address] Chalo Mclean Work Phone: [facility] Neurology Procedures Date Procedure Procedure Detail [...] Activity Detail Author Start: 12-13-2024 Patient referral [facility] Work Phone: Start: 12-13-2024 Evaluation of diagnostic study results [facility] Start: 08-29-2024 Patient discharge [facility] Start: 08-27-2024 Wound care [facility] Start: 08-26-2024 Contact precautions [facility] Start: 08-25-2024 Inhalation therapy procedure [facility] Start: 08-24-2024 Care planning and problem solving actions [facility] Start: 08-23-2024 End: 08-24-2024 [facility] Start: 08-23-2024 Care planning and problem solving actions [facility] Start: 08-23-2024 Following clinical pathway protocol [facility] Start: 08-23-2024 Assessment of risk of venous thromboembolism [facility] Start: 08-23-2024 Consultation for treatment [facility] Start: 08-23-2024 Insertion of catheter into peripheral vein [facility] Start: 08-23-2024 Measuring intake and output [facility] Start: 08-23-2024 Notification of physician [facility] Start: 08-23-2024 Oxygen therapy [facility] Start: 08-23-2024 Providing care according to standard [facility] Start: 08-23-2024 Provision of activity privileges [facility] Start: 08-23-2024 Referral to occupational therapist [facility] Start: 08-23-2024 Referral to service [facility] Start: 08-23-2024 Admission procedure [facility] Start: 08-23-2024 Patient referral to dietitian [facility] Start: 08-23-2024 [facility] Start: 01-31-2023 [facility] Start: 01-30-2023 [facility] Start: 01-29-2023 [facility] Start: 01-28-2023 Patient discharge [facility] Start: 01-28-2023 [facility] Start: 01-28-2023 Oxygen therapy [facility] Start: 01-27-2023 Thyroid stimulating hormone measurement [facility] Start: 01-27-2023 [facility] Start: 01-26-2023 Dual pressure spontaneous ventilation support [facility] Start: 01-26-2023 Blood chemistry [facility] Start: 01-26-2023 Continuous pulse oximetry [facility] Start: 01-26-2023 Blood chemistry [facility] Start: 01-26-2023 Blood chemistry [facility] Start: 01-26-2023 Following clinical pathway protocol [facility] Start: 01-26-2023 Assessment of risk of venous thromboembolism [facility] Start: 01-26-2023 Creatinine [Mass/volume] in Urine collected for unspecified duration [facility] Start: 01-26-2023 Electrolytes measurement, urine [facility] Start: 01-26-2023 Insertion of catheter into peripheral vein [facility] Start: 01-26-2023 Measuring intake and output [facility] Start: 01-26-2023 Osmolality of Urine [facility] Start: 01-26-2023 Providing care according to standard [facility] Start: 01-26-2023 Referral to occupational therapist [facility] Start: 01-26-2023 Referral to service [facility] Start: 01-26-2023 Urea nitrogen measurement, urine [facility] Start: 01-26-2023 Vitamin B12 measurement [facility] Start: 01-26-2023 [facility] Start: 01-26-2023 Blood chemistry [facility] Start: 01-26-2023 Verification routine [facility] Start: 01-26-2023 Admission procedure [facility] Start: 01-26-2023 End: 01-27-2023 [facility] Start: 01-26-2023 Patient referral to dietitian [facility] Start: 09-07-2022 Assay of prostate specific antigen total ASSAY OF PSA TOTAL [facility] Start: 08-30-2022 Egd insert guide wire dilator passage esophagus EGD GUIDE WIRE INSERTION [facility] Start: 08-30-2022 Egd transoral biopsy single/multiple EGD BIOPSY SINGLE/MULTIPLE [facility] Start: 08-30-2022 Patient discharge [facility] Start: 06-03-2022 [facility] Start: 06-02-2022 Assay of osmolality blood ASSAY OF BLOOD OSMOLALITY [facility] Start: 06-02-2022 Assay of osmolality urine ASSAY OF URINE OSMOLALITY [facility] Start: 06-02-2022 Assay of urine sodium ASSAY OF URINE SODIUM [facility] Start: 06-02-2022 Basic metabolic panel calcium total METABOLIC PANEL TOTAL CA [facility] Start: 06-02-2022 Blood count complete auto&auto difrntl wbc COMPLETE CBC W/AUTO DIFF WBC [facility] Start: 06-02-2022 Collection venous blood venipuncture ROUTINE VENIPUNCTURE [facility] Start: 06-02-2022 Radiologic exam esophagus single contrast study X-RAY XM ESOPHAGUS [id number] [facility] Start: 04-13-2022 Echo tthrc r-t 2d w/wom-mode compl spec&colr d TTE W/DOPPLER COMPLETE [facility] Work Phone: 24 Hour ECG [facility] Alanine aminotransfe rase [Enzymatic activity/volume] in Serum or Plasma [facility] Alanine aminotransfe rase [Enzymatic activity/volume] in Serum or Plasma [facility] Alanine aminotransfe rase [Enzymatic activity/volume] in Serum or Plasma [facility] Alanine aminotransfe rase [Enzymatic activity/volume] in Serum or Plasma [facility] Alanine aminotransfe rase [Enzymatic activity/volume] in Serum or Plasma [facility] Albumin [Mass/volume ] in Serum or Plasma [facility] Albumin [Mass/volume ] in Serum or Plasma [facility] Albumin [Mass/volume ] in Serum or Plasma [facility] Albumin [Mass/volume ] in Serum or Plasma [facility] Albumin [Mass/volume ] in Serum or Plasma [facility] Alkaline phosphatase [Enzymatic activity/volume] in Serum or Plasma [facility] Alkaline phosphatase [Enzymatic activity/volume] in Serum or Plasma [facility] Alkaline phosphatase [Enzymatic activity/volume] in Serum or Plasma [facility] Alkaline phosphatase [Enzymatic activity/volume] in Serum or Plasma [facility] Alkaline phosphatase [Enzymatic activity/volume] in Serum or Plasma [facility] Anion gap measurement [facility] Anion gap measurement [facility] Anion gap measurement [facility] Anion gap measurement [facility] Anion gap measurement [facility] Anion gap measurement [facility] Anion gap measurement [facility] Anion gap measurement [facility] Anion gap measurement [facility] Ankle brachial press ure index [facility] Work Phone: Aspartate aminotrans ferase [Enzymatic activity/volume] in Serum or Plasma [facility] Aspartate aminotrans ferase [Enzymatic activity/volume] in Serum or Plasma [facility] Aspartate aminotrans ferase [Enzymatic activity/volume] in Serum or Plasma [facility] Aspartate aminotrans ferase [Enzymatic activity/volume] in Serum or Plasma [facility] Aspartate aminotrans ferase [Enzymatic activity/volume] in Serum or Plasma [facility] Bilirubin, total measurement [facility] Bilirubin, total measurement [facility] Bilirubin, total measurement [facility] Bilirubin, total measurement [facility] Bilirubin, total measurement [facility] Blood chemistry [facility] Work Phone: BUN/Creatinine ratio [facility] BUN/Creatinine ratio [facility] BUN/Creatinine ratio [facility] BUN/Creatinine ratio [facility] BUN/Creatinine ratio [facility] BUN/Creatinine ratio [facility] BUN/Creatinine ratio [facility] BUN/Creatinine ratio [facility] BUN/Creatinine ratio [facility] Calcium [Mass/volume ] in Serum or Plasma [facility] Calcium [Mass/volume ] in Serum or Plasma [facility] Calcium [Mass/volume ] in Serum or Plasma [facility] Calcium [Mass/volume ] in Serum or Plasma [facility] Calcium [Mass/volume ] in Serum or Plasma [facility] Calcium [Mass/volume ] in Serum or Plasma [facility] Calcium [Mass/volume ] in Serum or Plasma [facility] Calcium [Mass/volume ] in Serum or Plasma [facility] Calcium [Mass/volume ] in Serum or Plasma [facility] Carbon dioxide, tota l [Moles/volume] in Serum or Plasma [facility] Carbon dioxide, tota l [Moles/volume] in Serum or Plasma [facility] Carbon dioxide, tota l [Moles/volume] in Serum or Plasma [facility] Carbon dioxide, tota l [Moles/volume] in Serum or Plasma [facility] Carbon dioxide, tota l [Moles/volume] in Serum or Plasma [facility] Carbon dioxide, tota l [Moles/volume] in Serum or Plasma [facility] Carbon dioxide, tota l [Moles/volume] in Serum or Plasma [facility] Carbon dioxide, tota l [Moles/volume] in Serum or Plasma [facility] Carbon dioxide, tota l [Moles/volume] in Serum or Plasma [facility] Chloride [Moles/volu me] in Serum or Plasma [facility] Chloride [Moles/volu me] in Serum or Plasma [facility] Chloride [Moles/volu me] in Serum or Plasma [facility] Chloride [Moles/volu me] in Serum or Plasma [facility] Chloride [Moles/volu me] in Serum or Plasma [facility] Chloride [Moles/volu me] in Serum or Plasma [facility] Chloride [Moles/volu me] in Serum or Plasma [facility] Chloride [Moles/volu me] in Serum or Plasma [facility] Chloride [Moles/volu me] in Serum or Plasma [facility] Complete blood count [facility] Work Phone: Complete blood count [facility] Creatinine [Moles/vo lume] in Serum or Plasma [facility] Creatinine [Moles/vo lume] in Serum or Plasma [facility] Creatinine [Moles/vo lume] in Serum or Plasma [facility] Creatinine [Moles/vo lume] in Serum or Plasma [facility] Creatinine [Moles/vo lume] in Serum or Plasma [facility] Creatinine [Moles/vo lume] in Serum or Plasma [facility] Creatinine [Moles/vo lume] in Serum or Plasma [facility] Creatinine [Moles/vo lume] in Serum or Plasma [facility] Creatinine [Moles/vo lume] in Serum or Plasma [facility] Glucose [Mass/volume ] in Serum or Plasma [facility] Glucose [Mass/volume ] in Serum or Plasma [facility] Glucose [Mass/volume ] in Serum or Plasma [facility] Glucose [Mass/volume ] in Serum or Plasma [facility] Glucose [Mass/volume ] in Serum or Plasma [facility] Glucose [Mass/volume ] in Serum or Plasma [facility] Glucose [Mass/volume ] in Serum or Plasma [facility] Glucose [Mass/volume ] in Serum or Plasma [facility] Glucose [Mass/volume ] in Serum or Plasma [facility] Hematocrit [Volume Fraction] of Blood [facility] Hematocrit [Volume Fraction] of Blood [facility] Hematocrit [Volume Fraction] of Blood [facility] Hematocrit [Volume Fraction] of Blood [facility] Hematocrit [Volume Fraction] of Blood [facility] Hemoglobin [Mass/vol ume] in Blood [facility] Hemoglobin [Mass/vol ume] in Blood [facility] Hemoglobin [Mass/vol ume] in Blood [facility] Hemoglobin [Mass/vol ume] in Blood [facility] Hemoglobin [Mass/vol ume] in Blood [facility] Leukocytes [#/volume ] in Blood [facility] Leukocytes [#/volume ] in Blood [facility] Leukocytes [#/volume ] in Blood [facility] Leukocytes [#/volume ] in Blood [facility] Leukocytes [#/volume ] in Blood [facility] Magnesium [Mass/volu me] in Serum or Plasma [facility] Mean corpuscular hem oglobin concentration determination [facility] Mean corpuscular hem oglobin concentration determination [facility] Mean corpuscular hem oglobin concentration determination [facility] Mean corpuscular hem oglobin concentration determination [facility] Mean corpuscular hem oglobin concentration determination [facility] Mean corpuscular hem oglobin determination [facility] Mean corpuscular hem oglobin determination [facility] Mean corpuscular hem oglobin determination [facility] Mean corpuscular hem oglobin determination [facility] Mean corpuscular hem oglobin determination [facility] Measurement of renal function [facility] Measurement of renal function [facility] Measurement of renal function [facility] Measurement of renal function [facility] Measurement of renal function [facility] Measurement of renal function [facility] Measurement of renal function [facility] Measurement of renal function [facility] Measurement of renal function [facility] Measurement of substance [facility] Work Phone: Measurement of substance [facility] Neutrophil count [facility] Neutrophil count [facility] Neutrophil count [facility] Neutrophil count [facility] Neutrophil count [facility] Neutrophil percent differential count [facility] Neutrophil percent differential count [facility] Neutrophil percent differential count [facility] Neutrophil percent differential count [facility] Neutrophil percent differential count [facility] Patient Education [facility] Work Phone: Patient referral [facility] Work Phone: Platelets [#/volume] in Blood [facility] Platelets [#/volume] in Blood [facility] Platelets [#/volume] in Blood [facility] Platelets [#/volume] in Blood [facility] Platelets [#/volume] in Blood [facility] Polysomnography [facility] Work Phone: Potassium [Moles/vol ume] in Serum or Plasma [facility] Potassium [Moles/vol ume] in Serum or Plasma [facility] Potassium [Moles/vol ume] in Serum or Plasma [facility] Potassium [Moles/vol ume] in Serum or Plasma [facility] Potassium [Moles/vol ume] in Serum or Plasma [facility] Potassium [Moles/vol ume] in Serum or Plasma [facility] Potassium [Moles/vol ume] in Serum or Plasma [facility] Potassium [Moles/vol ume] in Serum or Plasma [facility] Potassium [Moles/vol ume] in Serum or Plasma [facility] Red blood cell count [facility] Red blood cell count [facility] Red blood cell count [facility] Red blood cell count [facility] Red blood cell count [facility] Red cell distributio n width determination [facility] Red cell distributio n width determination [facility] Red cell distributio n width determination [facility] Red cell distributio n width determination [facility] Red cell distributio n width determination [facility] Sodium [Moles/volume ] in Serum or Plasma [facility] Work Phone: Sodium [Moles/volume ] in Serum or Plasma [facility] Sodium [Moles/volume ] in Serum or Plasma [facility] Sodium [Moles/volume ] in Serum or Plasma [facility] Sodium [Moles/volume ] in Serum or Plasma [facility] Sodium [Moles/volume ] in Serum or Plasma [facility] Sodium [Moles/volume ] in Serum or Plasma [facility] Sodium [Moles/volume ] in Serum or Plasma [facility] Sodium [Moles/volume ] in Serum or Plasma [facility] Sodium [Moles/volume ] in Serum or Plasma [facility] Sodium [Moles/volume ] in Serum or Plasma [facility] Total protein measurement [facility] Total protein measurement [facility] Total protein measurement [facility] Total protein measurement [facility] Total protein measurement [facility] Urea nitrogen [Mass/ volume] in Serum or Plasma [facility] Urea nitrogen [Mass/ volume] in Serum or Plasma [facility] Urea nitrogen [Mass/ volume] in Serum or Plasma [facility] Urea nitrogen [Mass/ volume] in Serum or Plasma [facility] Urea nitrogen [Mass/ volume] in Serum or Plasma [facility] Urea nitrogen [Mass/ volume] in Serum or Plasma [facility] Urea nitrogen [Mass/ volume] in Serum or Plasma [facility] Urea nitrogen [Mass/ volume] in Serum or Plasma [facility] Urea nitrogen [Mass/ volume] in Serum or Plasma [facility] Work Phone: General acute hospital Immunizations Immunization Date Immunization Notes Care Provider Fa cili 08-25-2020 pneumococcal polysaccharide vaccine, [address] Chalo Mclean MD Work Phone: [facility] Payers Date Payer Category Payer Medicaid [id number] 2024 Self-pay [id number] 1960 Unknown [id number] 2.16.8 [id number] 1960 Unknown [id number] 2.16.8 40.1.944750.3.579.2.627 Unknown [id number] Unknown [id number] 2.16.8 40.1.778738.3.579.2.462 Unknown [id number] 2.16.8 40.1.905630.3.579.2.462 Unknown [id number] 2.16.8 40.1.181504.3.579.2.462 Unknown [id number] 2.16.8 40.1.585577.3.579.2.462 Unknown [id number] 2.16.8 40.1.322984.3.579.2.462 Unknown [id number] 2.16.8 40.1.676263.3.579.2.462 Unknown [id number] 2.16.8 40.1.639767.3.579.2.462 Unknown [id number] 2.16.8 40.1.460721.3.579.2.462 Unknown [id number] 2.16.8 40.1.617936.3.579.2.462 Unknown [id number] 2.16.8 40.1.373765.3.579.2.462 Unknown [id number] 2.16.8 40.1.385866.3.579.2.462 Unknown [id number] 2.16.8 40.1.117370.3.579.2.462 Unknown [id number] 2.16.8 40.1.824360.3.579.2.462 Unknown [id number] 2.16.8 40.1.944833.3.579.2.462 Unknown [id number] 2.16.8 40.1.725088.3.579.2.462 Unknown [id number] 2.16.8 40.1.072426.3.579.2.462 Unknown [id number] 2.16.8 40.1.169892.3.579.2.462 Unknown [id number] 2.16.8 40.1.308772.3.579.2.462 Unknown [id number] 2.16.8 40.1.609188.3.579.2.462 Unknown [id number] 2.16.8 40.1.689861.3.579.2.462 Unknown [id number] 2.16.8 40.1.560357.3.579.2.462 Unknown [id number] 2.16.8 40.1.620067.3.579.2.462 Unknown [id number] 2.16.8 40.1.652871.3.579.2.462 Social History Date Type Detail Facility Start: 02-24-2022 End: 03-08-2023 Tobacco smoking status [facility] Unknown if ever smoked [facility] Start: 01-22-2020 Occasional [facility] Start: 09-16-2018 None [facility] Start: 01-22-2020 Alone [facility] Start: 05-28-2018 Cigarettes [facility] Start: 1960 Sex Assigned At Male [facility] Start: 08-24-[facility]24 [facility] Goals Date Patient Goal Desired Activity /State Functional Status Date Assessment Result Facility 08-29-2024 Functional status Bedrest [facility] Work Phone: 01-28-2023 Functional status Chair [facility] Work Phone: Mental Status Date Assessment Result Facility 08-29-2024 Cognitive function Voice/Name [facility] Work Phone: 01-28-2023 Cognitive function Voice/Name [facility] Work Phone: 01-26-2023 Cognitive function Level Of Cons ciousness Awake;Alert;Appropriate;Follow s Commands [facility] Work Phone: 12-23-2022 Cognitive function Awake;Alert;Appropriat e [facility] Work Phone: 08-30-2022 Cognitive function Voice/Name [facility] Work Phone: 06-03-2022 Cognitive function Voice/Name [facility] Work Phone: Clinical Notes 01-23-2024 to 08-29-2024 Note Date & Type Note Facility 08-29-2024 Note [facility] 08-23-2024 Evaluation note Diagnosis Onset Date Resolution Debility acute August 23 1:21pm Paroxysmal atrial flutter chronic August 23 1:21pm Adult failure to thrive inactive anuary 2024 1:21pm Candidal skin infection inactive [facility] 2024 1:21pm Complicated urinary tract infection inactive August 23 1:21pm Dehydration inactive August 23, 2024 1:21pm Generalized weakness inactive [facility] 2024 1:21pm Unable to ambulate [facility] 2024 1:21pm Cardiomyopathy chronic November 9:05am Essential hypertension chronic Ap 2024 9:05am Paroxysmal atrial fibrillation chronic December 13, 2024 9:05am [facility] Work Phone: [phone]) 583-202306-04-2024 [facility] Diagnosis Onset Date Resolution Status Absent pedal pulses acute Low back pain chronic Parasomnia chronic Polyneuropathy chronic [facility] Work Phone: Evaluation note* Diagnosis Onset Date Resolution Status Absent pedal pulses acute Low back pain chronic Parasomnia chronic Polyneuropathy chronic Decreased pedal pulses acute Edema of both lower extremities acute Ulcer of right lower extremity acute [facility] Work Phone: Evaluation note* Diagnosis Onset Date [...] hypertension chron ic Paroxysmal atrial fibrillation chronic [facility] Work Phone: Evaluation note* Diagnosis Onset Date [...] DARLIN (obstructive sleep apnea) acute Polyneuropathy chronic [facility] Work Phone: Evaluation note* Diagnosis Onset Date [...] acute Edema of both lower extremities chronic [facility] Work Phone: Evaluation note* Diagnosis Onset Date [...] extremity due to chronic venous insufficiency chronic [facility] Work Phone: Evaluation note* Diagnosis Onset Date Resolution Status Ulcer of extremity due to chronic venous insufficiency chronic Polyneuropathy chronic Dysphagia acute Gastric reflux acute [facility] Work Phone: Evaluation note* Diagnosis Onset Date Resolution Status Polyneuropathy chronic Dysphagia acute Gastric reflux acute [facility] Work Phone: Evaluation note* Diagnosis Onset Date Resolution Status Polyneuropathy chronic Dysphagia acute Gastric reflux acute Esophageal stenosis acute [facility] Work Phone: Evaluation note* Diagnosis Onset Date Resolution Status Internal impingement of right shoulder acute Right shoulder pain acute Cardiomyopathy chronic Edema of both lower extremities chronic Essential hypertension chron ic Paroxysmal atrial fibrillation chronic [facility] Work Phone: Evaluation note* Diagnosis Onset Date Resolution Status Cardiomyopathy chronic Edema of both lower extremities chronic Essential hypertension chron ic Paroxysmal atrial fibrillation chronic Acute hyponatremia acute Atrial fibrillation acute Weakness acute [facility] Work Phone: Evaluation note* Diagnosis Onset Date Resolution Status Cardiomyopathy chronic Edema of both lower extremities chronic Essential hypertension chron ic Paroxysmal atrial fibrillation chronic Acute hyponatremia acute Atrial fibrillation acute DARLIN (obstructive sleep apnea) acute Weakness acute [facility] Work Phone: Evaluation note* Diagnosis Onset Date Resolution Status Cardiomyopathy chronic Edema of both lower extremities chronic Essential hypertension chron ic Paroxysmal atrial fibrillation chronic Atrial fibrillation acute DARLIN (obstructive sleep apnea) acute Weakness acute Restless legs syndrome acute Polyneuropathy chronic [facility] Work Phone: Evaluation note* Diagnosis Onset Date Resolution Status Cardiomyopathy chronic Edema of both lower extremities chronic Essential hypertension chron ic Paroxysmal atrial fibrillation chronic Atrial fibrillation acute DARLIN (obstructive sleep apnea) acute Weakness acute Restless legs syndrome acute Polyneuropathy chronic Dyspnea on exertion acute Cardiomyopathy chronic Edema of both lower extremities chronic Essential hypertension chron ic Paroxysmal atrial fibrillation chronic [facility] Work Phone: Hospital Discharge instructions Additional Instructions Hold your combination valsartan and hydrochlorothiazide. Take new prescription of valsartan by itself. Finish your antibiotics. Call to be seen by Dr. Mclean next week. I discussed with Dr. Mclean from the ED. Return if any worsening symptoms.[facility] Work Phone: Summary Purpose Family History No [...] No August 09, 021 10:55am Power of Shampoo Assistant No August 09, 2021 10:55am Advance Directive Response Recorded Date/ Time Advance Directives No July 10:55am Living Will No May 23 10:10am Power of Shampoo Assistant No May 23 022 10:10am Advance Directive Response Recorded Date/ Time Advance Directives No July 10:55am Living Will No June 03 10:29am Power of Shampoo Assistant No June 03, 2022 10:29am Advance Directive Response Recorded Date/ Time Advance Directives No July 9:55am Living Will No August 29 9:49am Power of Shampoo Assistant No August 29 023 9:49am Advance Directive Response Recorded Date/ Time Advance Directives No July 10:55am Living Will No December 23, 2022 11 :15am Power of Shampoo Assistant No December 23, 2022 11:15am Advance Directive Response Recorded Date/ Time Advance Directives No July 10:55am Living Will No January 26, 2023 1 1:18am Power of Shampoo Assistant No January 26, 2023 11:18am Advance Directive Response Recorded Date/ Time Name of Medical Power of Shampoo Assistant Angela Decemberdexter becky January 26, 2023 12:38pm Advance Directives No July 10:55am Living Will No January 26, 2023 1 2:38pm Power of Shampoo Assistant Yes January 26, 2023 12:38pm Advance Directive Response Recorded Date/ Time Living Will Yes August 23 3:53pm Do you have a Healthcare Power of Shampoo Assistant? Yes August 23, 2024 3:53pm Name of Medical Power of Shampoo Assistant Ayesha DecemberAugust 23, 2024 3:53pm Advance Directives [...] LABS DARLIN,AUTOPAP S/U 4 M FU Consult 2 wk [...] section and content) DATE CREATED AUTHOR 03/12/2022 [place] DATE CREATED AUTHOR AUTHOR'S ORGANIZ ATBRADEN 12/02/2024 [facility] DATE CREATED AUTHOR AUTHOR'S ORGANIZ ATION 12/26/2024 [facility] Goals (unrecognized section and content) Goals may [...] Provider, Referring Provider Active Karen Wells NP, GAS LEAK INSPECTOR-C Attending Provider Active Team Status: Active Member [...] MD Primary Care Provider Active Fidelina Pedroza GAS LEAK INSPECTOR, GAS LEAK INSPECTOR-C Attending Provider Active Team Status: Inactive Member [...] Dr. Renan Bruce MD Active Mitchell Rodrigues GAS LEAK INSPECTOR, GAS LEAK INSPECTOR-C Attending Provider Active Team Status: Active Member [...] Care Provider, Referring Provider Active Cherelle Nguyen GAS LEAK INSPECTOR, GAS LEAK INSPECTOR-C Attending Provider Active Team Status: Inactive Member Role Status Dates Dr. Chalo Mclean MD Primary Care Provider Active Cherelle Nguyen GAS LEAK INSPECTOR, GAS LEAK INSPECTOR-C Attending Provider, Referring P rovider Active Team [...] Inactive Member Role Status Dates Dr. Chalo Mclena MD Primary Care Provider Active Start: December 13, 2024 End: December 13, 2024 Dr. Chalo Mclean MD Referring Provider Active Start: December 13, 2024 End: December 13, 2024 Cherelle Nguyen GAS LEAK INSPECTOR, GAS LEAK INSPECTOR-C Attending Provider Active Start: December 13, 2024 [...] BE BASED ON THE PRIMARY CLINICAL RECORDS. [employer] provides no warranty or guarantee of the accuracy or completeness of information in this document.
--- NOTE | 2025-01-22 23:54 | CONS.ORTHO ---
HPI Consult Data Date of Consult: 01/22/25 HPI Narrative Reason for Consultation: Right distal femur fracture HPI Narrative: CARLIN SMITH, is a 64 M who sustained an injury earlier today after his cat apparently pressed the button on his left chair and caused him to be lifted out unintentionally causing him to fall onto his right lower extremity. He is unable to bear weight and was brought to the emergency department. X-rays revealed a distal femur fracture. He was admitted under the service to hospitalist. I was called in consultation. I saw the patient this evening. At time my examination, patient denied any other injuries. Denied any loss consciousness or head injury. Denies fevers or chills, nausea vomiting, chest pain or shortness of breath. Pain controlled with current pain regimen. Denies any prior problems with his right knee or lower extremity. He is a household ambulator with a walker. He states he walks around the room but has significant difficulty due to his weight. Wears oxygen at home. Denies history of DVT or PE. On Xarelto for a flutter with last dose 01/22/2025 AM. [facility] Medical History Dehydration Candidal skin infection Generalized weakness Unable to ambulate Complicated urinary tract infection Adult failure to thrive History of ESBL Klebsiella pneumoniae infection Chronic pain of both lower extremities Alcohol abuse Rheumatoid arthritis GERD (gastroesophageal reflux disease) Asthma Restless legs syndrome Atrial fibrillation Weakness Acute hyponatremia Internal impingement of right shoulder Right shoulder pain MRSA infection PTSD (post-traumatic stress disorder) Thyroid disease DVT (deep venous thrombosis) Back pain Syncope Blackout History of ulceration Sleep apnea CPAP (continuous positive airway pressure) dependence Bladder disease Dysphagia Urine retention Dysuria Wears glasses Wears dentures Anxiety Alcohol use Marijuana use Uses wheelchair Walker as ambulation aid Ambulates with cane Gout Arthritis Prostate disease Anemia Easy bruising Excessive bleeding History of hiatal hernia Urinary incontinence Gastric reflux Shortness of breath on exertion Former smoker Leg cramps History of edema History of rheumatic fever History of atrial fibrillation History of stress test History of Holter monitoring History of echocardiogram Cardiology follow-up encounter Ventricular ectopy Cardiomyopathy Paroxysmal atrial fibrillation Paroxysmal ventricular tachycardia HTN (hypertension) Cardiomyopathy Atrial fibrillation with rapid ventricular response Atrial fibrillation Debility CHI (closed head injury) Chronic atrial fibrillation Traumatic injury to skin or subcutaneous tissue History of DVT (deep vein thrombosis) Essential hypertension Atrial flutter History of sepsis Abdominal wall pain Left fibular fracture Rheumatic fever Morbid obesity Chronic pain BPH (benign prostatic hyperplasia) ADD (attention deficit disorder) Neuropathy Depression Calcium deficiency Vitamin B12 deficiency Fibromyalgia Home Medications ?Medication ?Instructions ?Recorded ?Last Taken ?Type cyanocobalamin (vitamin B-12) 1,000 mcg IM Q30D DEFICIENCY 05/28/18 01/21/25 History 1,000 mcg/mL injection solution tamsulosin 0.4 mg capsule 0.4 mg PO DAILY bladder 04/09/21 01/22/25 History doxepin 50 mg capsule 50 mg PO QHS sleep 01/26/23 01/21/25 History finasteride 5 mg tablet 5 mg PO DAILY PROSTATE 01/26/23 01/22/25 History calcium carbonate 1,000 mg (5 x 200 mg calcium (500 01/22/24 01/21/25 Rx mg)) PO Q4H PRN PRN DYSPEPSIA/INDIGESTION #0 tabs acetaminophen 325 mg tablet 650 mg (2 x 325 mg) PO Q6H PRN PRN 08/29/24 01/22/25 Rx Pain 1-10 Or Fever >100.7 #0 tabs albuterol sulfate 2.5 mg/3 mL 2.5 mg (3 mL) inhalation Q2H PRN 08/29/24 01/21/25 Rx (0.083 %) solution for nebulization PRN SOB &/OR WHEEZING #0 mL nystatin 100,000 unit/gram topical 1 applic topical TID #0 grams 08/29/24 01/22/25 Rx powder ([facility]) metoprolol succinate 100 mg 100 mg PO Q12H heart 12/13/24 01/22/25 History tablet,extended release 24 hr rivaroxaban 20 mg tablet (Xarelto) 15 mg PO QDAY afib 12/13/24 01/22/25 History amitriptyline 25 mg tablet 25 mg PO QHS antidep 01/22/25 01/21/25 History cyclobenzaprine 10 mg tablet 10 mg PO QHS leg cramps 01/22/25 01/21/25 History fluconazole 150 mg tablet 150 mg PO DAILY yeast 01/22/25 01/22/25 History furosemide 40 mg tablet 40 mg PO DAILY PRN swelling 01/22/25 01/19/25 History Allergy/AdvReac Type Severity Reaction Status Date / Time duloxetine (From Cymbalta) Allergy Severe Other Verified 01/22/25 14:30 Family History Mother Diabetes Thyroid disorder Father Diabetes Heart disease CABG x5 in his 50s COPD (chronic obstructive pulmonary disease) Hypertension Pulmonary fibrosis Other Arthritis Lupus Surgical History History of cardiac catheterization History of hand surgery History of esophagogastroduodenoscopy (EGD) History of cardioversion (~08/10/21) History of left heart catheterization (04/30/21) History of hernia repair Status post removal of thyroid nodule H/O gastric bypass Social History Smoking Status: Former smoker how long ago did patient quit smokin years ago second hand exposure: No alcohol intake: current alcohol intake frequency: a few times a week details: 4-6 cans (12 oz) of beer a couple times per week substance use type: marijuana caffeine: No what type of physical activity do you participate in: none frequency: decline to answer khloe/synagogue: [employer] seatbelt use: never ROS ROS Narrative 12 point review of systems obtained, negative as otherwise noted HPI. Vital Signs Vital Signs Vital Signs: 01/22/25 14:26 01/22/25 16:27 01/22/25 17:28 Temperature 98.4 F 97.9 F 98.3 F Temperature Source Oral Temporal Oral Pulse Rate 104 H 113 H 113 H Respiratory Rate 16 21 H 19 H Blood Pressure 115/70 101/66 105/77 Blood Pressure Mean 85 77 86 Blood Pressure Source Blood Pressure Position Blood Pressure Location Pulse Ox 92 94 96 Oxygen Delivery Method Room Air Nasal Cannula Nasal Cannula Oxygen Flow Rate (L/min) 3 3 01/22/25 19:00 01/22/25 19:00 01/22/25 20:09 Temperature 98.1 F 98.1 F 97.5 F L Temperature Source Oral Oral Pulse Rate 108 H 108 H 91 Respiratory Rate 20 H 20 H 20 H Blood Pressure 114/78 114/78 105/65 Blood Pressure Mean 90 90 78 Blood Pressure Source Monitor Blood Pressure Position Semi-Fowlers Blood Pressure Location Right Arm Pulse Ox 97 97 97 Oxygen Delivery Method Nasal Cannula Nasal Cannula Oxygen Flow Rate (L/min) 3 3 01/22/25 21:18 01/22/25 21:40 Temperature Temperature Source Pulse Rate 91 Respiratory Rate Blood Pressure Blood Pressure Mean Blood Pressure Source Blood Pressure Position Blood Pressure Location Pulse Ox Oxygen Delivery Method Nasal Cannula Oxygen Flow Rate (L/min) Weight Weight: 405 lb 3.354 oz Body Mass Index (BMI) 52.0 Physical Exam Narrative General -A&Ox3, NAD, appears stated age. Vital signs stable, afebrile. Respiratory -normal work of breathing, no intercostal retractions. CV -pulses regular, brisk capillary refill ?4 limbs. Abdomen-soft, nontender, nondistended. No guarding, rigidity, rebound tenderness. Musculoskeletal/neurologic -full range of motion nontender throughout bilateral upper extremities, left lower extremity with full sensation and strength in all dermatomes and myotomes. No midline cervical tenderness. Right lower extremity-no obvious deformity. Appropriately tender over the right distal femur. Brisk capillary refill. Sensation intact light touch L3-S1 dermatomes. DF, PF, EHL intact. DP, PT 2+. Pelvis is stable, nontender. Skin is intact without lacerations, abrasions. No ecchymosis noted. Lab / Micro Data 01/22/25 14:33 01/22/25 14:33 Labs: Laboratory Results - last 24 hr 01/22/25 14:33: WBC 9.5, RBC 4.41 L, Hgb 11.4 L, Hct 36.7 L, MCV 83.2, MCH 25.9 L, MCHC 31.1 L, RDW Std Deviation 44.6 H, RDW Coeff of Tasha 14.9 H, Plt Count 301, MPV 11.1, Immature Gran % (Auto) 0.500, Neut % (Auto) 77.9 H, Lymph % (Auto) 11.7 L, [place] % (Auto) 6.5, Eos % (Auto) 3.0, Baso % (Auto) 0.4, Absolute Neuts (auto) 7.4, Absolute Lymphs (auto) 1.11, Nucleated RBC % 0, Sodium 136, Potassium 4.1, Chloride 96 L, Carbon Dioxide 28.6, Anion Gap 12, BUN 8, Creatinine 0.73, Estim Creat Clear Calc 183.89, Est GFR (MDRD) Non-Af 102, BUN/Creatinine Ratio 10.7, Glucose 133 H, Calcium 8.0, Total Bilirubin 0.52, AST 14, ALT 5, Alkaline Phosphatase 141 H, Total Protein 7.0, Albumin 3.3 L, Globulin 3.7, Albumin/Globulin Ratio 0.9 Imaging Radiology Impression Brain CT 01/22/25 14:51 IMPRESSION: No acute intracranial process. Reading Location: [facility] Cervical Spine CT 01/22/25 14:51 IMPRESSION: No evidence of acute cervical spine fracture on this moderately limited examination. Reading Location: [id number] Femur X-Ray 01/22/25 14:51 IMPRESSION: A comminuted, possibly intra-articular, FRACTURE of the distal shaft of the right femur is noted. Mild anterior dislocation of the major distal femoral fragment is seen, along with mild posterior angulation No tibial or fibular fracture site is seen. No additional fracture site is evident. Mild degenerative changes of the right knee are most apparent at the medial and patellofemoral compartments. No radiopaque foreign body is appreciated Reading Location: [address] Knee X-Ray 01/22/25 14:51 IMPRESSION: A comminuted, possibly intra-articular, FRACTURE of the distal shaft of the right femur is noted. Mild anterior dislocation of the major distal femoral fragment is seen, along with mild posterior angulation No tibial or fibular fracture site is seen. No additional fracture site is evident. Mild degenerative changes of the right knee are most apparent at the medial and patellofemoral compartments. No radiopaque foreign body is appreciated Reading Location: [id number] Pelvis X-Ray 01/22/25 14:51 IMPRESSION: Partially visualized inferior vena cava filter seen. Prominent degenerative changes are noted at the visualized lower lumbar spine. Mild sacroiliac joint degenerative changes are seen. Heterotopic ossification is seen medial to the proximal right femur. Mild bilateral hip joint degenerative changes are seen, without significant degree of joint space narrowing. No fracture or dislocation is seen on this solitary image. If clinical concern persists, short-term follow-up imaging may be obtained to rule out a currently occult fracture. Reading Location: [id number] Tibia/Fibula X-Ray 01/22/25 15:45 IMPRESSION: A comminuted, possibly intra-articular, FRACTURE of the distal shaft of the right femur is noted. Mild anterior dislocation of the major distal femoral fragment is seen, along with mild posterior angulation No tibial or fibular fracture site is seen. No additional fracture site is evident. Mild degenerative changes of the right knee are most apparent at the medial and patellofemoral compartments. No radiopaque foreign body is appreciated Reading Location: [id number] Lower Extremity CT 01/22/25 17:10 IMPRESSION: Comminuted and mildly displaced fracture of the right distal femur, without intra-articular extension. Small to moderate knee joint effusion. Reading Location: [id number] Assessment & Plan Assessment/Plan (1) Closed fracture of right distal femur: QUALIFIERS: Encounter type: initial encounter PLAN: Patient sustained a right distal femur fracture. X-rays and CT scan reviewed. Recommending surgical intervention in the form of right femur retrograde intramedullary nailing versus open reduction internal fixation. Risks, benefits, terms the procedure reviewed with the patient at length. Risks include but are not limited to bleeding, flexion, loss of life or limb, need for additional surgery, persistent pain, nonhealing bone or wounds, neurovascular injury, posttraumatic arthritis, stiffness, failure of orthopedic hardware, nonunion or malunion, persistent limp, DVT or PE, risk of anesthesia. Informed consent was obtained. Patient will be at significant increased risk of morbidity and mortality due to his multiple comorbidities including his history of pulmonary disease, cardiac disease, as well as morbid obesity with BMI 52. Recommending medical optimization prior to surgery, however certainly patient will be at significant risk regardless of optimization. Recommend at least 48 hours off of the Xarelto to mitigate risk of perioperative blood loss. Likely surgery 01/24/2025.
[2025-01-23] VITALS (10 sets, daily range): BP systolic 94–110; BP diastolic 56–71; PULSE 84–100; RESP 16–20; TEMP 36.3–36.6; O2SAT 95–98
--- NOTE | 2025-01-23 05:00 | RAD_ITS ---
PROCEDURE: CHEST 1 VIEW (PORTABLE) 01/23/2025 REASON FOR EXAM: PREOP TECHNIQUE: Frontal view of the chest. COMPARISON: Chest radiograph and CT chest on 08/23/2024 FINDINGS: Hardware: None Heart: Cardiac and mediastinal contours are stable. Lungs: No definite evidence of a focal consolidation, though patient positioning limits evaluation. No significant pleural effusion. Bones: Degenerative changes are identified within the thoracic spine. Other: Surgical clips in the left upper abdomen. RAD/Chest 1 View (Portable) IMPRESSION: Slightly limited exam, without evidence of an acute cardiopulmonary abnormality . Reading Location: [id number]
--- NOTE | 2025-01-23 05:04 | NURSING ---
Per Dr. Tse surgery will be Monday at the earliest.
--- NOTE | 2025-01-23 06:00 | EKG12_ITS ---
Test Reason : PRE OP Blood Pressure : */* mmHG Vent. Rate : 96 BPM Atrial Rate : 234 BPM P-R Int : * ms QRS Dur : 108 ms QT Int : 350 ms P-R-T Axes : * -65 61 degrees QTcB Int : 442 ms Atrial flutter Left axis deviation Inferior infarct , age undetermined Abnormal ECG When compared with ECG of 22-Jan-2025 16:18, MANUAL COMPARISON REQUIRED DATA IS UNCONFIRMED Confirmed by DIANDRA BLOOM, BEE ([id number]), continuity editor MEHUL JIMENEZ ([id number]) on 01/27/2025 7:11:30 AM Referred By: LIZZY Confirmed By: BEE JIM MD
[2025-01-23] MEDS: Acetaminophen 500 MG Tablet 1000 MG PO ×3 (06:23→20:42)
[2025-01-23 06:45] LABS: Absolute Lymphocyte Count 1.15 X10^3/uL (0.83-4.51); Absolute Neutrophil Count 4.7 X10^3/uL (2.0-7.7); Basophil# 0.03 X10^3/uL; Basophil% 0.4 % (0-1); Eosinophil# 0.26 X10^3/uL; Eosinophils% 3.8 % (0-5); Hematocrit 36.1 % (40-54); Lymphocyte # 1.15 X10^3/ul (0.83-4.51); Lymphocyte % 16.9 % (19-41); Mean Corp Hgb Conc 30.5 g/dL (32-36); Mean Corpuscular Hgb 26.1 pg (27.0-32.0); Mean Corpuscular Volume 85.7 fL (80-94); Monocyte# 0.61 X10^3/uL; NRBC Flagged by Analyzer 0 % (0-5); Neutrophil # 4.73 X10^3/uL (2.7-7.7); Neutrophil % 69.5 % (47-70); Platelet Count 256 K/mm3 (150-450); RBC Distribution Width CV 14.7 % (11.6-14.6); RBC Distribution Width SD 45.6 fl (35.1-43.9); Red Blood Count 4.21 M/mm3 (4.6-6.2); White Blood Count 6.8 K/mm3 (4.4-11.0)
[2025-01-23 07:13] LABS: ALB/GLOB Ratio 0.9 RATIO (0.9-2.4); AST(SGOT) 13 U/L (<=37); Alanine Aminotransfer ALT/SGPT 5 U/L (<=46); Albumin, Serum 3.3 g/dL (3.4-4.8); Alkaline Phosphatase 135 U/L (40-129); Anion Gap 9 (5-15); BUN 11 mg/dL (4-19); BUN/Creat Ratio 14.3 RATIO (10-20); Carbon Dioxide 31.9 mmol/L (21.0-32.0); Chloride 97 mmol/L (98-108); Creatinine, Serum 0.73 mg/dL (0.70-1.20); EST Glomerular Filtration Rate 102 (>60); Estimated Creatinine Clearance 179.96 ml/min (50-250); Globulin 3.7 g/dL (2.2-4.2); Glucose 124 mg/dL (70-99); Phosphorus 4.4 mg/dL (2.7-4.5); Potassium 4.2 mmol/L (3.3-5.1); Sodium Level 138 mmol/L (133-145); Total Bilirubin 0.54 mg/dL (0.00-1.30)
[2025-01-23] MEDS: Albuterol 2.5 MG/3 ML VIAL.NEB. INHALATION (07:42)
[2025-01-23] MEDS: Metoprolol(XL)Succ 100 MG Tablet PO ×2 (08:36→20:42)
[2025-01-23] MEDS: oxyCODONE 5 MG Tablet PO ×4 (08:36→20:41)
[2025-01-23] MEDS: Finasteride 5 MG Tablet PO (08:36)
[2025-01-23] MEDS: Senna/Docusate Sodium 1 Tablet 2 TABLET PO (08:36)
[2025-01-23] MEDS: Docusate Sodium 100 MG Capsule PO ×2 (08:36→20:41)
[2025-01-23] MEDS: Tamsulosin HCl 0.4 MG Capsule PO (08:37)
[2025-01-23] MEDS: Nystatin Powder 15gm Bottle 1 APPLIC TOPICAL ×2 (08:37→21:16)
--- NOTE | 2025-01-23 08:54 | CASEMGMT ---
Discharge Planning A list of?SNF providers including quality and resource use data and consistent with the patient's preferred geographic region, medical needs, and insurance network was created in [employer] Guide.? This list was provided to the SW. Padmaja Gonzales Discharge Planning Asst.
--- NOTE | 2025-01-23 09:56 | PCM.PN.HOSP ---
Reason for Visit Reason for Visit: Diagnoses Unspecified fracture of lower end of right femur, initial encounter for closed fracture (01/22/25) Unspecified fall, initial encounter (01/22/25) Subjective Subjective Patient is a 64-year-old M who presented to the emergency department with pain involving the right lower extremity. Patient had apparently falling weeks prior and was in a long-term facility. Presented to the ED after being released. Imaging studies obtained on admission did show comminuted and mildly displaced fracture of the right distal femur, without intra-articular extension. Small to moderate knee joint effusion. Admitted to regular nursing floor for subsequent management Objective Data Objective Data Vital Signs: Vital Signs Temp Pulse Resp BP Pulse Ox O2 Del Method O2 Flow Rate 97.4 F L 84 18 101/61 95 Nasal Cannula 4 01/23/25 08:27 01/23/25 08:36 01/23/25 08:27 01/23/25 08:27 01/23/25 08:27 01/23/25 08:27 01/23/25 08:27 FiO2 92 01/23/25 08:27 Oxygen Flow Rate (L/min) 4 Oxygen Delivery Method Nasal Cannula Weight: 183.8 kg Body Mass Index (BMI) 52.0 Intake & Output: Intake and Output for Last 24 Hours 01/21/25 01/22/25 01/23/25 23:59 23:59 23:59 Intake Total 1000 / 1000 Balance 1000 / 1000 Lab / Micro Data 01/23/25 06:10 01/23/25 06:10 Labs: Laboratory Results - last 24 hr 01/22/25 14:33: WBC 9.5, RBC 4.41 L, Hgb 11.4 L, Hct 36.7 L, MCV 83.2, MCH 25.9 L, MCHC 31.1 L, RDW Std Deviation 44.6 H, RDW Coeff of Tasha 14.9 H, Plt Count 301, MPV 11.1, Immature Gran % (Auto) 0.500, Neut % (Auto) 77.9 H, Lymph % (Auto) 11.7 L, [place] % (Auto) 6.5, Eos % (Auto) 3.0, Baso % (Auto) 0.4, Absolute Neuts (auto) 7.4, Absolute Lymphs (auto) 1.11, Nucleated RBC % 0, Sodium 136, Potassium 4.1, Chloride 96 L, Carbon Dioxide 28.6, Anion Gap 12, BUN 8, Creatinine 0.73, Estim Creat Clear Calc 183.89, Est GFR (MDRD) Non-Af 102, BUN/Creatinine Ratio 10.7, Glucose 133 H, Calcium 8.0, Total Bilirubin 0.52, AST 14, ALT 5, Alkaline Phosphatase 141 H, Total Protein 7.0, Albumin 3.3 L, Globulin 3.7, Albumin/Globulin Ratio 0.9 01/23/25 06:10: WBC 6.8, RBC 4.21 L, Hgb 11.0 L, Hct 36.1 L, MCV 85.7, MCH 26.1 L, MCHC 30.5 L, RDW Std Deviation 45.6 H, RDW Coeff of Tasha 14.7 H, Plt Count 256, MPV 11.0, Immature Gran % (Auto) 0.400, Neut % (Auto) 69.5, Lymph % (Auto) 16.9 L, [place] % (Auto) 9.0, Eos % (Auto) 3.8, Baso % (Auto) 0.4, Absolute Neuts (auto) 4.7, Absolute Lymphs (auto) 1.15, Nucleated RBC % 0, Sodium 138, Potassium 4.2, Chloride 97 L, Carbon Dioxide 31.9, Anion Gap 9, BUN 11, Creatinine 0.73, Estim Creat Clear Calc 179.96, Est GFR (MDRD) Non-Af 102, BUN/Creatinine Ratio 14.3, Glucose 124 H, Calcium 8.0, Phosphorus 4.4, Magnesium 2.0, Total Bilirubin 0.54, AST 13, ALT 5, Alkaline Phosphatase 135 H, Total Protein 7.0, Albumin 3.3 L, Globulin 3.7, Albumin/Globulin Ratio 0.9 Radiography Diagnostic Testing: Radiology Impression Brain CT 01/22/25 14:51 IMPRESSION: No acute intracranial process. Reading Location: [facility] Cervical Spine CT 01/22/25 14:51 IMPRESSION: No evidence of acute cervical spine fracture on this moderately limited examination. Reading Location: [id number] Femur X-Ray 01/22/25 14:51 IMPRESSION: A comminuted, possibly intra-articular, FRACTURE of the distal shaft of the right femur is noted. Mild anterior dislocation of the major distal femoral fragment is seen, along with mild posterior angulation No tibial or fibular fracture site is seen. No additional fracture site is evident. Mild degenerative changes of the right knee are most apparent at the medial and patellofemoral compartments. No radiopaque foreign body is appreciated Reading Location: [address] Knee X-Ray 01/22/25 14:51 IMPRESSION: A comminuted, possibly intra-articular, FRACTURE of the distal shaft of the right femur is noted. Mild anterior dislocation of the major distal femoral fragment is seen, along with mild posterior angulation No tibial or fibular fracture site is seen. No additional fracture site is evident. Mild degenerative changes of the right knee are most apparent at the medial and patellofemoral compartments. No radiopaque foreign body is appreciated Reading Location: [id number] Pelvis X-Ray 01/22/25 14:51 IMPRESSION: Partially visualized inferior vena cava filter seen. Prominent degenerative changes are noted at the visualized lower lumbar spine. Mild sacroiliac joint degenerative changes are seen. Heterotopic ossification is seen medial to the proximal right femur. Mild bilateral hip joint degenerative changes are seen, without significant degree of joint space narrowing. No fracture or dislocation is seen on this solitary image. If clinical concern persists, short-term follow-up imaging may be obtained to rule out a currently occult fracture. Reading Location: [id number] Tibia/Fibula X-Ray 01/22/25 15:45 IMPRESSION: A comminuted, possibly intra-articular, FRACTURE of the distal shaft of the right femur is noted. Mild anterior dislocation of the major distal femoral fragment is seen, along with mild posterior angulation No tibial or fibular fracture site is seen. No additional fracture site is evident. Mild degenerative changes of the right knee are most apparent at the medial and patellofemoral compartments. No radiopaque foreign body is appreciated Reading Location: [id number] Lower Extremity CT 01/22/25 17:10 IMPRESSION: Comminuted and mildly displaced fracture of the right distal femur, without intra-articular extension. Small to moderate knee joint effusion. Reading Location: [id number] Chest X-Ray 01/23/25 05:00 IMPRESSION: Slightly limited exam, without evidence of an acute cardiopulmonary abnormality. Reading Location: [id number] Physical Exam Narrative GENERAL: cooperative HEENT: Atraumatic; normocephalic EYES; Anicteric, Normal Conjunctiva NECK; supple, normal thyroid, RESPIRATORY: Diminished to auscultation CARDIOVASCULAR: Regular S1 S2, GI: soft, normoactive bowel sounds, : No Renal angle tenderness; EXTREMITIES: No edema, no clubbing, MUSCULOSKELETAL: Right knee in immobilizer NEURO: Awake; no lateralizing signs. SKIN: No Rash PSYCH; Flat affect Assessment & Plan Assessment/Plan (1) Closed fracture of right distal femur: QUALIFIERS: Encounter type: initial encounter (2) Fall: PLAN: Plan Patient is a 64-year-old M who presented to the emergency department with pain involving the right lower extremity. Patient had apparently falling weeks prior and was in a long-term facility. Presented to the ED after being released. Imaging studies obtained on admission did show comminuted and mildly displaced fracture of the right distal femur, without intra-articular extension. Small to moderate knee joint effusion. Admitted to regular nursing floor for subsequent management Right knee pain 1. Imaging studies obtained on admission did show comminuted and mildly displaced fracture of the right distal femur, without intra-articular extension. Small to moderate knee joint effusion. Admitted to regular nursing floor for subsequent management. Patient remained adamant initiated with immobilization, pain meds and consultation placed to orthopedic surgery. Patient is on Xarelto being held in anticipation of surgical intervention on 01/24/2025 2. Paroxysmal A-fib/flutter ? Rate controlled on systemic anticoagulation with rivaroxaban currently being held in anticipation of patient surgical intervention 3. Chronic hypoxic respiratory failure ? Patient is on 3 L of oxygen at baseline 4. Obstructive sleep apnea ? Consistent use of PAP therapy encouraged 5. Class III obesity with BMI of 52.0 ? Complicating care weight loss advised 6. BPH with lower urinary obstructive symptoms - Patient treated with tamsulosin and Proscar, home medications continued 7. Fibromyalgia ? Per history, pain meds as needed 8. Depression with anxiety ? Patient is on amitriptyline and doxepin 9. Anemia ? Secondary to chronic disorder monitoring H&H and transfuse if patient becomes symptomatic or hemoglobin falls below 7 10 DVT prophylaxis ? Patient is on rivaroxaban which is currently being held in anticipation of patient surgical intervention plan is to resume following patient surgical intervention dimension Charges/Coding Visit Charges Inpatient E&M: 96349 Subs Hosp L2
[2025-01-23 10:50] LABS: Bacteria 0 SEEN /hpf (None Seen); Color, Urine Yellow (Yellow); Glucose, Dipstick Normal (Normal); Ketone-Dipstick Negative (Negative); Leukocyte Esterase-Dipstick Negative /ul (Negative); Mucous, Urine 0 SEEN /hpf (<or=2+); Nitrite-Dipstick Negative (Negative); Occult Blood-Urine 10 /ul (Negative); Protein-Dipstick 30 mg/dl (Negative); Specific Gravity, Urine 1.025 (1.002-1.030); Urine Clarity Clear (Clear); Urine Urobilinogen 4 mg/dl (Normal); White Blood Cells 0 SEEN /hpf (0-5)
[2025-01-23 11:03] LABS: Urine Bilirubin Dipstick 1 mg/dL (Negative)
[2025-01-23 11:07] LABS: Red Blood Cells-Urine 0-5 SEEN /hpf (0-5); Squamous Epithelial Cells - UA 0-5 SEEN /hpf (0-5)
--- NOTE | 2025-01-23 14:20 | CASEMGMT ---
ELIE SOSA Assessment Face to Face with patient for initial transition planning/care coordination assessment. ELIE SOSA introduced self and role at [facility], pt voices understanding. Pt is A&Ox4 and is resting comfortably in bed and is calm. Care providers, pharmacy, and demographics verified. Admitting dx: Distal Right Femur Fracture LACE Strata: 2 PCP: Vinay Specialists: SHAMAR Carmencita is currently on consult Preferred Pharmacy: [facility] Insurance: [facility] Prescription Benefit: Yes LNOK: Mariama Ortiz (Caregiver) Living Arrangements: Pt lives with his caregiver in a single story home with 1 step to enter. Pt states that a ramp is currently being built ADLs/IADLs: Pt requires assistance and the pt's aide is able to provide 24/7 care Transportation: Pt reports that when he is able to stand he can get into [employer] truck but otherwise requires squad transportation DME: Home oxygen through [employer]. Verified 2L HS only. Pt states that he has a concentrator, x1 portable tank, pulse ox, nebulizer, and inhaler. Pt reports that his aide can bring in the portability if the pt DC's home from [facility]. Pt also reports that he has a medical alert system, rollator, lift chair, bariatric hospital bed, BSC, and shower chair. However, pt states that he has not been able to take a shower in years and bed bathes only. HHC/SNF: HH history x 3-4 years ago but cannot recall the name. Pt has been to [facility] ([place]), [facility] ([facility]), and [facility]. Community Resources: Pt reports that he is active with [facility] and his CM is Lori Bennett. Pt states that he has [employer], Medical Alert System, and food stamps. Pt?s goal: Return to PLOF Plan: TBD. Anticipate SNF vs Home with skilled HHC and continuation of care through his pvt duty aide. Pt is scheduled for surgery tomorrow since he took his blood thinner on 01/22. At this time, the pt states that if he cannot stand after surgery, he will not feel safe returning home. Follow PT eval. Pt states that he would prefer to return to [facility] if SNF is warranted. Pt denies further needs at this time. Report given to MIMI DELGADILLO CM. Darling Lo RN, CM
--- NOTE | 2025-01-23 15:24 | CASEMGMT ---
Social Work- SW left voicemail for Lori Bennett, [facility] , regarding pt stay. If pt needs SNF at discharge, FOC is [facility]. Pt lives with private pilot and would like to discharge home if able. Pt scheduled for surgery tomorrow 01/24; SW remains available to follow. PIERRE Luna
[2025-01-23] MEDS: cycloBENZAPRine HCl 10 MG Tablet PO (20:42)
[2025-01-23] MEDS: Amitriptyline 25 MG Tablet PO (20:42)
[2025-01-23] MEDS: Menthol/Lanolin/Calamine/Znox 113 GM Tube 1 APPLIC TOPICAL (21:16)
[2025-01-24] VITALS (25 sets, daily range): BP systolic 81–131; BP diastolic 62–93; PULSE 96–127; RESP 16–22; TEMP 36.3–37.1; O2SAT 60–98; BMI 52.8; BMI 52.0
[2025-01-24] MEDS: oxyCODONE 5 MG Tablet PO ×3 (01:35→20:04)
[2025-01-24 05:14] LABS: Absolute Neutrophil Count 6.6 X10^3/uL (2.0-7.7); Basophil# 0.03 X10^3/uL; Basophil% 0.3 % (0-1); Eosinophil# 0.19 X10^3/uL; Eosinophils% 2.2 % (0-5); Hematocrit 37.6 % (40-54); Hemoglobin 11.1 g/dL (13.0-16.5); Lymphocyte % 12.6 % (19-41); Mean Corp Hgb Conc 29.5 g/dL (32-36); Mean Corpuscular Hgb 25.6 pg (27.0-32.0); Mean Corpuscular Volume 86.6 fL (80-94); Mean Platelet Vol. 11.4 fl (6.2-12.0); Monocyte# 0.68 X10^3/uL; Monocyte% 7.8 % (0-10); NRBC Flagged by Analyzer 0 % (0-5); Neutrophil # 6.64 X10^3/uL (2.7-7.7); Neutrophil % 76.4 % (47-70); Platelet Count 239 K/mm3 (150-450); RBC Distribution Width CV 14.5 % (11.6-14.6); RBC Distribution Width SD 45.5 fl (35.1-43.9); Red Blood Count 4.34 M/mm3 (4.6-6.2); White Blood Count 8.7 K/mm3 (4.4-11.0)
[2025-01-24 05:57] LABS: Phosphorus 4.5 mg/dL (2.7-4.5)
[2025-01-24 05:59] LABS: Anion Gap 7 (5-15); BUN 18 mg/dL (4-19); BUN/Creat Ratio 22.4 RATIO (10-20); Calcium,Total 8.3 mg/dL (7.6-11.0); Carbon Dioxide 31.4 mmol/L (21.0-32.0); Chloride 96 mmol/L (98-108); Creatinine, Serum 0.79 mg/dL (0.70-1.20); EST Glomerular Filtration Rate 100 (>60); Estimated Creatinine Clearance 167.92 ml/min (50-250); Glucose 140 mg/dL (70-99); Potassium 5.6 mmol/L (3.3-5.1); Sodium Level 135 mmol/L (133-145)
--- NOTE | 2025-01-24 06:37 | PRE.ANES_ITS ---
ASA Classification* ASA Classification ASA Classification: 3 Assessment & Plan Anesthesia* Anesthesia Assessment Anesthesia Assessment: Discussed sedation and/or anesthesia options, risks, benefits, and alternatives with patient/parents/legal guardian/POA. Questions invited. The patient/parents/legal guardian/POA seems to understand and agrees to proceed with anesthesia plan. Reviewed the physical assessment, medical history, allergy history and patient home medications list prior to surgery/procedure/anesthetic and documented any changes. Performed airway and anesthesia risk assessments. Anesthesia Type Anesthesia Type: General Anesthesia Focused Assessment* Temperature: 98.7 F Pulse Rate: 106 Blood Pressure: 104/70 Respiratory Rate: 16 Pulse Ox: 94 Oxygen Flow Rate (L/min): 4 Fraction of Inspired Oxygen (FIO2): 92 Airway Assessment Mouth opens: >3 cm Mallampati Score: II Focused Labs Anesthesia Preop lab: CBC WBC 8.7 K/mm3 (4.4-11.0) 01/24/25 04:44 01/24/25 RBC 4.34 M/mm3 (4.6-6.2) L 01/24/25 04:44 01/24/25 Hgb 11.1 g/dL (13.0-16.5) L 01/24/25 04:44 5 Hct 37.6 % (40-54) L 01/24/25 04:44 01/24/25 Plt Count 239 K/mm3 (150-450) 01/24/25 04:44 01/24/25 CHEMISTRY Potassium 5.6 mmol/L (3.3-5.1) H 01/24/25 04:44 01/24/25 Sodium 135 mmol/L (133-145) 01/24/25 04:44 01/24/25 Magnesium 2.0 mg/dL (1.5-2.2) 01/24/25 04:44 01/24/25 Phosphorus 4.5 mg/dL (2.7-4.5) 01/24/25 04:44 01/24/25 BUN 18 mg/dL (4-19) 01/24/25 04:44 01/24/25 Creatinine 0.79 mg/dL (0.70-1.20) 01/24/25 04:44 01/24/25 Glucose 140 mg/dL (70-99) H 01/24/25 04:44 01/24/25 POC Glucose 109 mg/dL (70-110) 03/31/18 06:43 03/31/18 TSH 1.980 uIU/mL (0.300-4.200) 12/23/24 15:02 /0 01/12 COAG PT 18.3 SECONDS (11.7-14.9) H 12/23/24 15:02 01/12 Pre-Assessment Diagnosis/Proposed Procedure Planned Operative Procedure(s): ORIF Right femur retrograde IM NAIL Anesthesia History 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 When Was Last Pacemaker Check QUESTION #4 FULL TEXT: You/Your Family Experience fever (hyperthermia) with Anesthesia Last Oral Intake Last Oral intake: Last Oral Intake NPO since 01:35 01/24/25 06:18 Meds taken in AM with sips of No 01/24/25 06:18 water? Meds patient instructed to take am of surgery PONV PONV - wood fence installer: PONV - wood fence installer Female HX of Motion Sickness HX of N/V After Surgery Non-Smoker Duration of Surgery greater than 60 minutes Number of Risk Factors PONV Score Height & Weight Height & Weight: Anesthesia: Height & Weight Height 6 ft 2 in 01/24/25 06:18 Weight: 183.8 kg 01/24/25 06:18 Body Mass Index (BMI) 52.0 01/24/25 06:18 Respiratory Assessment Respiratory Assessment - wood fence installer: Respiratory Tract Infection Hx - wood fence installer Hx Respiratory Tract Infection No 01/22/25 21:26 STOP Sleep Apnea STOP Sleep Apnea - wood fence installer: STOP Sleep Apnea - wood fence installer Hx Hypertension Yes 01/22/25 19:19 Hx Sleep Apnea Yes 01/22/25 19:19 CPAP Yes 01/22/25 19:19 BIPAP No 01/22/25 19:19 Do you snore loudly (louder than talking or can be heard Do you often feel tired/ fatigued/ sleepy during daytime? Has anyone observed you stop breathing during sleep? STOP Results Positive 01/22/25 19:19 QUESTION #5 FULL TEXT : Do you snore loudly (louder than talking or can be heard through closed doors)? Tobacco Use History Tobacco Use History - wood fence installer: Tobacco Use History - wood fence installer Tobacco Use Smoking Status Former smoker 01/22/25 19:19 Hx Tobacco Use Yes: VAPES MARIJUANA 01/22/25 19:19 Years Smoking Packs Smoked per Day Smoking Cessation Date was No - quit smoking greater 01/22/25 19:19 within the last 15 years than 15 years ago Hx Smoking Cessation Date 07/30/95 01/22/25 19:19 Hx Smoking Cessation No 01/22/25 19:19 Counseling Hematologic Medial History Hematologic Hx - wood fence installer: Hematologic Medical Hx - watch inspector final movement Hx of Blood Transfusion No 01/22/25 19:19 Hx of Transfusion in last 3 No 01/22/25 19:19 Months Date of Last Transfusion (if within last 3 months) Ever experience any problems No 01/22/25 19:19 with transfusion(s)? Specify any problems Hx of Preganancy in last 3 N/A 01/22/25 19:19 Months Nurse Filling Out Transfusion EVIZZO 01/22/25 19:19 & Questions: Date: 01/22/25 01/22/25 19:19 Time: 19:57 01/22/25 19:19 Patient unable to answer at Yes 01/22/25 19:19 this time (ie. confused, unrespo /Reproduction History /Reproductive History - wood fence installer: /Reproductive Hx- wood fence installer Hx Now Gestational Age (in weeks): EDC: Hx Hx Para Hx Section SAB No 01/22/25 21:26 Active Medications Active Medications: Current Medications Generic Name Dose Route Start Last Admin Trade Name Freq PRN Reason Stop Dose Admin Acetaminophen 1,000 mg 01/22/25 22:00 01/24/25 05:11 Acetaminophen 500 Mg Tablet PO Not Given Q8 ISMA Albuterol Sulfate 2.5 mg 01/22/25 19:45 01/23/25 07:42 Albuterol 2.5 Mg/3 Ml Vial.Neb. INHALATION 2.5 mg Q2H PRN PRN Administration SOB &/OR WHEEZING Amitriptyline HCl 25 mg 01/22/25 22:00 01/23/25 20:42 Amitriptyline 25 Mg Tablet PO 25 mg QHS ISMA Administration Calamine/Phenol 1 applic 01/22/25 22:00 01/23/25 21:16 Menthol/Lanolin/Calamine/Znox 113 Gm Tube TOPICAL 1 applic BID ISMA Administration Protocol Cyclobenzaprine HCl 10 mg 01/22/25 22:00 01/23/25 20:42 Cyclobenzaprine Hcl 10 Mg Tablet PO 10 mg QHS ISMA Administration Docusate Sodium 100 mg 01/22/25 22:00 01/23/25 20:41 Docusate Sodium 100 Mg Capsule PO 100 mg BID ISMA Administration Finasteride 5 mg 01/23/25 10:00 01/23/25 08:36 Finasteride 5 Mg Tablet PO 5 mg DAILY ISMA Administration Guaifenesin 20 ml 01/22/25 19:45 Guaifenesin 10 Ml Udc (200mg/10ml) PO Q4H PRN PRN COUGH Hydromorphone HCl 0.5 mg 01/22/25 19:45 01/22/25 20:36 Hydromorphone 0.5 Mg/0.5 Ml Syringe IV 0.5 mg Q3H PRN PRN Administration Pain Score 6-10 Sodium Chloride 250 mls @ 15 mls/hr 01/22/25 19:42 IV .[id number] PRN Saline Flush Sodium Chloride 250 mls @ 15 mls/hr 01/22/25 19:42 IV .[id number] PRN Additional IVPB Infusion Cefazolin Sodium 3 gm/ Sodium 115 mls @ 150 mls/hr 01/24/25 07:30 Chloride IV 01/24/25 08:15 PREOP ONE Melatonin 3 mg 01/22/25 19:45 Melatonin 3 Mg Tablet PO QHS PRN PRN INSOMNIA Metoprolol Succinate 100 mg 01/22/25 22:00 01/23/25 20:42 Metoprolol(Xl)Succ 100 Mg Tablet PO 100 mg BID ISMA Administration Protocol Nystatin 1 applic 01/22/25 22:00 01/23/25 21:16 Nystatin Powder 15gm Bottle TOPICAL 1 applic BID ISMA Administration Protocol Ondansetron HCl 4 mg 01/22/25 19:45 Ondansetron 4 Mg/2 Ml Vial IV Q8H PRN PRN NAUSEA/VOMITING Oxycodone HCl 5 - 10 mg 01/23/25 10:16 01/24/25 01:35 Oxycodone 5 Mg Tablet PO 10 mg Q4H PRN PRN Administration Pain Score 4-10 or Pre PT/OT Senna/Docusate Sodium 2 tablet 01/22/25 19:45 01/23/25 08:36 Senna/Docusate Sodium 1 Tablet PO 2 tablet BID PRN PRN Administration Constipation Sodium Chloride 10 - 40 ml 01/22/25 19:42 01/22/25 20:37 0.9% Saline Lock 10 Ml Syringe IV 10 ml UD PRN Administration SALINE FLUSH Tamsulosin HCl 0.4 mg 01/23/25 10:00 01/23/25 08:37 Tamsulosin Hcl 0.4 Mg Capsule PO 0.4 mg DAILY ISMA Administration [facility] Medical History Dehydration Candidal skin infection Generalized weakness Unable to ambulate Complicated urinary tract infection Adult failure to thrive History of ESBL Klebsiella pneumoniae infection Chronic pain of both lower extremities Alcohol abuse Rheumatoid arthritis GERD (gastroesophageal reflux disease) Asthma Restless legs syndrome Atrial fibrillation Weakness Acute hyponatremia Internal impingement of right shoulder Right shoulder pain MRSA infection PTSD (post-traumatic stress disorder) Thyroid disease DVT (deep venous thrombosis) Back pain Syncope Blackout History of ulceration Sleep apnea CPAP (continuous positive airway pressure) dependence Bladder disease Dysphagia Urine retention Dysuria Wears glasses Wears dentures Anxiety Alcohol use Marijuana use Uses wheelchair Walker as ambulation aid Ambulates with cane Gout Arthritis Prostate disease Anemia Easy bruising Excessive bleeding History of hiatal hernia Urinary incontinence Gastric reflux Shortness of breath on exertion Former smoker Leg cramps History of edema History of rheumatic fever History of atrial fibrillation History of stress test History of Holter monitoring History of echocardiogram Cardiology follow-up encounter Ventricular ectopy Cardiomyopathy Paroxysmal atrial fibrillation Paroxysmal ventricular tachycardia HTN (hypertension) Cardiomyopathy Atrial fibrillation with rapid ventricular response Atrial fibrillation Debility CHI (closed head injury) Chronic atrial fibrillation Traumatic injury to skin or subcutaneous tissue History of DVT (deep vein thrombosis) Essential hypertension Atrial flutter History of sepsis Abdominal wall pain Left fibular fracture Rheumatic fever Morbid obesity Chronic pain BPH (benign prostatic hyperplasia) ADD (attention deficit disorder) Neuropathy Depression Calcium deficiency Vitamin B12 deficiency Fibromyalgia Home Medications ?Medication ?Instructions ?Recorded ?Last Taken ?Type cyanocobalamin (vitamin B-12) 1,000 mcg IM Q30D DEFICI ENCY 05/28/18 01/21/25 History 1,000 mcg/mL injection solution tamsulosin 0.4 mg capsule 0.4 mg PO DAILY bladder 03/2201/22/25 History doxepin 50 mg capsule 50 mg PO QHS sleep 01/26/23 01/21/25 History finasteride 5 mg tablet 5 mg PO DAILY PROSTATE 01/2601/22/25 History calcium carbonate 1,000 mg (5 x 200 mg calcium (500 01/22/24 01/21/25 Rx mg)) PO Q4H PRN PRN DYSPEPSIA/INDIGESTION #0 tabs acetaminophen 325 mg tablet 650 mg (2 x 325 mg) PO Q6H PRN PRN 08/29/24 01/22/25 Rx Pain 1-10 Or Fever >100.7 #0 tabs albuterol sulfate 2.5 mg/3 mL 2.5 mg (3 mL) inhalation Q2H PRN 08/29/24 01/21/25 Rx (0.083 %) solution for nebulization PRN SOB &/OR WHEEZ ING #0 mL nystatin 100,000 unit/gram topical 1 applic topical TI D #0 grams 08/29/24 01/22/25 Rx powder ([facility]) metoprolol succinate 100 mg 100 mg PO Q12H heart 12/1301/22/25 History tablet,extended release 24 hr rivaroxaban 20 mg tablet (Xarelto) 15 mg PO QDAY afib 12/13/24 01/22/25 History amitriptyline 25 mg tablet 25 mg PO QHS antidep 01/21/25 History cyclobenzaprine 10 mg tablet 10 mg PO QHS leg cramps 0 01/22/25 01/21/25 History fluconazole 150 mg tablet 150 mg PO DAILY yeast 01/22/25 History furosemide 40 mg tablet 40 mg PO DAILY PRN swelling 01/22/25 01/19/25 History Allergy/AdvReac Type Severity Reaction Status Date / Time duloxetine (From Cymbalta) Allergy Severe Other Verified 01/22/25 14:30 Family History Mother Diabetes Thyroid disorder Father Diabetes Heart disease CABG x5 in his 50s COPD (chronic obstructive pulmonary disease) Hypertension Pulmonary fibrosis Other Arthritis Lupus Surgical History History of cardiac catheterization History of hand surgery History of esophagogastroduodenoscopy (EGD) History of cardioversion (~08/10/21) History of left heart catheterization (04/30/21) History of hernia repair Status post removal of thyroid nodule H/O gastric bypass Social History Smoking Status: Former smoker how long ago did patient quit smokin years ago second hand exposure: No alcohol intake: current alcohol intake frequency: a few times a week details: 4-6 cans (12 oz) of beer a couple times per week substance use type: marijuana caffeine: No what type of physical activity do you participate in: none frequency: decline to answer khloe/cheondoism: Moravian seatbelt use: never Review of Systems (Anesthesia) ROS Narrative System reviewed and no additional complaints, except as documented.
--- NOTE | 2025-01-24 07:14 | PN.ORTHO_ITS ---
Subjective Subjective Patient seen and examined. Denies any new complaints. Denies fevers, chills, nausea vomiting, chest pain or shortness of breath. Pain controlled at rest. Objective Data Objective Data Vital Signs: Vital Signs Temp Pulse Resp BP Pulse Ox O2 Del Method O2 Flow Rate 98.7 F 106 H 16 104/70 94 Nasal Cannula 4 01/24/25 06:39 01/24/25 06:39 01/24/25 06:39 01/24/25 06:39 01/24/25 06:39 01/24/25 05:39 01/24/25 06:39 FiO2 92 01/24/25 06:39 Oxygen Flow Rate (L/min) 4 Oxygen Delivery Method Nasal Cannula Weight: 405 lb 3.354 oz Body Mass Index (BMI) 52.0 Intake & Output: Intake and Output for Last 24 Hours 01/22/25 01/23/25 01/24/25 23:59 23:59 23:59 Intake Total 1000 / 1000 200 / 200 50 / 50 Output Total 500 / 500 1300 / 1300 Balance 1000 / 1000 -300 / -300 -1250 / -1250 Lab / Micro Data 01/24/25 04:44 01/24/25 04:44 Labs: Laboratory Results - last 24 hr 01/23/25 06:10: Sodium 138, Potassium 4.2, Chloride 97 L, Carbon Dioxide 31.9, Anion Gap 9, BUN 11, Creatinine 0.73, Estim Creat Clear Calc 179.96, Est GFR (MDRD) Non-Af 102, BUN/Creatinine Ratio 14.3, Glucose 124 H, Calcium 8.0, Phosphorus 4.4, Magnesium 2.0, Total Bilirubin 0.54, AST 13, ALT 5, Alkaline Phosphatase 135 H, Total Protein 7.0, Albumin 3.3 L, Globulin 3.7, Albumin/Globulin Ratio 0.9 01/23/25 10:20: Urine Color Yellow, Urine Clarity Clear, Urine pH 5.0, Ur Specific [place] 1.025, Urine Protein 30 H, Urine Glucose (UA) Normal, Urine Ketones Negative, Urine Occult Blood 10 H, Urine Nitrite Negative, Urine Bilirubin 1 H, Urine Urobilinogen 4 H, Ur Leukocyte Esterase Negative, Urine RBC 0-5 SEEN, Urine WBC 0 SEEN, Ur Squamous Epith Cells 0-5 SEEN, Urine Bacteria 0 SEEN, Urine Mucus 0 SEEN 01/24/25 04:44: WBC 8.7, RBC 4.34 L, Hgb 11.1 L, Hct 37.6 L, MCV 86.6, MCH 25.6 L, MCHC 29.5 L, RDW Std Deviation 45.5 H, RDW Coeff of Tasha 14.5, Plt Count 239, MPV 11.4, Immature Gran % (Auto) 0.700, Neut % (Auto) 76.4 H, Lymph % (Auto) 12.6 L, [place] % (Auto) 7.8, Eos % (Auto) 2.2, Baso % (Auto) 0.3, Absolute Neuts (auto) 6.6, Absolute Lymphs (auto) 1.10, Nucleated RBC % 0, Sodium 135, P otassium 5.6 H, Chloride 96 L, Carbon Dioxide 31.4, Anion Gap 7, BUN 18, Creatinine 0.79, Estim Creat Clear Calc 167.92, Est GFR (MDRD) Non-Af 100, B UN/Creatinine Ratio 22.4 H, Glucose 140 H, Calcium 8.3, Phosphorus 4.5, Magnesium 2.0 Physical Exam Narrative General -A&Ox3, NAD, appears stated age. Vital signs stable, afebrile. Respiratory -normal work of breathing, no intercostal retractions. CV -pulses regular, brisk capillary refill ?4 limbs. Abdomen-soft, nontender, nondistended. No guarding, rigidity, rebound tenderness. Musculoskeletal/neurologic -full range of motion nontender throughout bilateral upper extremities, left lower extremity with full sensation and strength in all dermatomes and myotomes. No midline cervical tenderness. Right lower extremity-no obvious deformity. Knee immobilizer in place. Appropriately tender over the right distal femur. Brisk capillary refill. Sensation intact light touch L3-S1 dermatomes. DF, PF, EHL intact. DP, PT 2+. Pelvis is stable, nontender. Skin is intact without lacerations, abrasions. No ecchymosis noted. Assessment & Plan Assessment/Plan (1) Closed fracture of right distal femur: QUALIFIERS: Encounter type: initial encounter PLAN: Patient seen and examined. Plan to proceed with right distal femur retrograde nailing versus open reduction internal fixation. Again reviewed risks, benefits, alternatives to procedure with the patient. Informed consent was confirmed. Operative site was marked. Further recommendations pending surgery.
--- NOTE | 2025-01-24 07:25 | RAD_ITS ---
PROCEDURE: MOBILE C-ARM OF THE RIGHT FEMUR IN THE OPERATING ROOM 01/24/2025 REASON FOR EXAM: RT FEMUR RETROGRADE INTERMEDULLARY NAIL, POSS ORIF TECHNIQUE: 10 view(s) of the right femur femur. COMPARISON: Right lower extremity CT dated 01/22/2025 FINDINGS: An intramedullary miguel ángel has been inserted through the fracture fragments of the distal femoral diaphysis. The fracture fragments appear to be in good alignment. RAD/Femur Min 2 Views IMPRESSION: Satisfactory fixation of a distal femoral fracture. For further detail of the procedure please see the postoperative report. Reading Location: [place] [id number]
--- NOTE | 2025-01-24 07:45 | RAD_ITS ---
PROCEDURE: CHEST 1 VIEW (PORTABLE) 01/24/2025 REASON FOR EXAM: HYPOXIA TECHNIQUE: Frontal view of the chest. COMPARISON: Chest x-ray of 01/24/2020. RAD/Chest 1 View (Portable) IMPRESSION: Stable right hemidiaphragm elevation/eventration. Upper abdominal surgical clips are again seen. Lungs are hypoinflated, with mild areas of bibasilar atelectasis, but otherwise appear clear of acute disease. No evidence of pulmonary edema. No pleural effusion or pneumothorax is seen. The cardiomediastinal silhouette is stable, without evidence of cardiomegaly (g iven technique). No acute osseous process is seen. Reading Location: [id number]
[2025-01-24 07:48] LABS: Base Excess 11 mmol/L (-2 to +2); Bicarbonate 36.4 mmol/L (22-26); Blood Gas Specimen Type ART; Mode Not entered; O2 Delivery Device Not entered; PO2 33 mmHG (75-100); SITE Not entered; SO2 57 % (95-99); Total Carbon Dioxide 38 mmol/L; pCO2 65.6 mmHg (35-45); pH 7.35 (7.35-7.45)
[2025-01-24] MEDS: Cefazolin 3 GM in 0.9% Normal Saline (100mL Bag) 100 ML IV (08:02)
--- NOTE | 2025-01-24 08:29 | PCM.PN.HOSP ---
Reason for Visit Reason for Visit: Diagnoses Unspecified fracture of lower end of right femur, initial encounter for closed fracture (01/22/25) Unspecified fall, initial encounter (01/22/25) Subjective Subjective Patient is scheduled to undergo ORIF ? Patient was transferred to the intensive care unit following his procedure and extubation due to the fact that patient became hypoxic prior to the procedure. Objective Data Objective Data Vital Signs: Vital Signs Temp Pulse Resp BP Pulse Ox O2 Del Method O2 Flow Rate 98.7 F 124 H 16 104/70 60 Room Air 4 01/24/25 06:39 01/24/25 07:20 01/24/25 07:20 01/24/25 06:39 01/24/25 07:20 01/24/25 07:20 01/24/25 06:39 FiO2 92 01/24/25 06:39 Oxygen Flow Rate (L/min) 4 Oxygen Delivery Method Room Air Weight: 183.8 kg Body Mass Index (BMI) 52.0 Intake & Output: Intake and Output for Last 24 Hours 01/22/25 01/23/25 01/24/25 23:59 23:59 23:59 Intake Total 1000 / 1000 200 / 200 50 / 50 Output Total 500 / 500 1300 / 1300 Balance 1000 / 1000 -300 / -300 -1250 / -1250 Lab / Micro Data 01/24/25 04:44 01/24/25 11:08 Labs: Laboratory Results - last 24 hr 01/23/25 10:20: Urine Color Yellow, Urine Clarity Clear, Urine pH 5.0, Ur Specific [place] 1.025, Urine Protein 30 H, Urine Glucose (UA) Normal, Urine Ketones Negative, Urine Occult Blood 10 H, Urine Nitrite Negative, Urine Bilirubin 1 H, Urine Urobilinogen 4 H, Ur Leukocyte Esterase Negative, Urine RBC 0-5 SEEN, Urine WBC 0 SEEN, Ur Squamous Epith Cells 0-5 SEEN, Urine Bacteria 0 SEEN, Urine Mucus 0 SEEN 01/24/25 04:44: WBC 8.7, RBC 4.34 L, Hgb 11.1 L, Hct 37.6 L, MCV 86.6, MCH 25.6 L, MCHC 29.5 L, RDW Std Deviation 45.5 H, RDW Coeff of Tasha 14.5, Plt Count 239, MPV 11.4, Immature Gran % (Auto) 0.700, Neut % (Auto) 76.4 H, Lymph % (Auto) 12.6 L, [place] % (Auto) 7.8, Eos % (Auto) 2.2, Baso % (Auto) 0.3, Absolute Neuts (auto) 6.6, Absolute Lymphs (auto) 1.10, Nucleated RBC % 0, Sodium 135, Potassium 5.6 H, Chloride 96 L, Carbon Dioxide 31.4, Anion Gap 7, BUN 18, Creatinine 0.79, Estim Creat Clear Calc 167.92, Est GFR (MDRD) Non-Af 100, BUN/Creatinine Ratio 22.4 H, Glucose 140 H, Calcium 8.3, Phosphorus 4.5, Magnesium 2.0 ABG Data ABG results: ABG 01/24/25 07:43 Specimen Type ART Sample Site Not entered pH 7.35 Bicarbonate Actual 36.4 H Total CO2 38 Base Excess 11 H O2 Saturation 57 L O2 % 21.0 ABG pCO2 65.6 H ABG pO2 33 L* O2 Delivery Device Not entered Vent Mode Not entered Crit Call To/Read Back Yes Blood Gas Notified Whom weeman Blood Gas Notified Time 07:46:02 Radiography Diagnostic Testing: Radiology Impression Chest X-Ray 01/24/25 07:45 IMPRESSION: Stable right hemidiaphragm elevation/eventration. Upper abdominal surgical clips are again seen. Lungs are hypoinflated, with mild areas of bibasilar atelectasis, but otherwise appear clear of acute disease. No evidence of pulmonary edema. No pleural effusion or pneumothorax is seen. The cardiomediastinal silhouette is stable, without evidence of cardiomegaly (given technique). No acute osseous process is seen. Reading Location: [address] Physical Exam Narrative GENERAL: cooperative HEENT: Atraumatic; normocephalic EYES; Anicteric, Normal Conjunctiva NECK; supple, normal thyroid, RESPIRATORY: Diminished to auscultation CARDIOVASCULAR: Regular S1 S2, GI: soft, normoactive bowel sounds, : No Renal angle tenderness; EXTREMITIES: No edema, no clubbing, MUSCULOSKELETAL: Right knee in immobilizer NEURO: Awake; no lateralizing signs. SKIN: No Rash PSYCH; Flat affect Assessment & Plan Assessment/Plan (1) Closed fracture of right distal femur: QUALIFIERS: Encounter type: initial encounter (2) Fall: PLAN: Plan Patient is a 64-year-old M who presented to the emergency department with pain involving the right lower extremity. Patient had apparently falling weeks prior and was in a long term facility. Presented to the ED after being released. Imaging studies obtained on admission did show comminuted and mildly displaced fracture of the right distal femur, without intra-articular extension. Small to moderate knee joint effusion. Admitted to regular nursing floor for subsequent management 1. Right knee pain - Imaging studies obtained on admission did show comminuted and mildly displaced fracture of the right distal femur, without intra-articular extension. Small to moderate knee joint effusion. Admitted to regular nursing floor for subsequent management. Patient remained adamant initiated with immobilization, pain meds and consultation placed to orthopedic surgery. Patient is on Xarelto being held in anticipation of surgical intervention on 01/24/2025 ? 01/24/2025; patient scheduled to undergo ORIF ? Patient underwent right distal femur open reduction internal fixation with right femur retrograde nailing. Subsequently transferred to the intensive care unit following the procedure 2. Paroxysmal A-fib/flutter ? Rate controlled on systemic anticoagulation with rivaroxaban currently being held in anticipation of patient surgical intervention 3. Chronic hypoxic respiratory failure ? Patient is on 3 L of oxygen at baseline 4. Obstructive sleep apnea ? Consistent use of PAP therapy encouraged 5. Class III obesity with BMI of 52.0 ? Complicating care weight loss advised 6. BPH with lower urinary obstructive symptoms - Patient treated with tamsulosin and Proscar, home medications continued 7. Fibromyalgia ? Per history, pain meds as needed 8. Depression with anxiety ? Patient is on amitriptyline and doxepin 9. Anemia ? Secondary to chronic disorder monitoring H&H and transfuse if patient becomes symptomatic or hemoglobin falls below 7 10 DVT prophylaxis ? Patient is on rivaroxaban which is currently being held in anticipation of patient surgical intervention plan is to resume following patient surgical intervention dimension 11. Hyperkalemia ? Plan is to repeat patient potassium levels following his surgical intervention ? Patient repeat potassium came back elevated patient given Kayexalate and had a potassium ordered later on in the day Time spent in the patient's overall evaluation,decision-making process, review of diagnostic data, adjustment of management, discussion with other providers, nursing nursing and ancillary staff involved in patient's care documentation, 52 Minutes Charges/Coding Visit Charges Inpatient E&M: 58469 Subs Hosp L3
[2025-01-24] MEDS: Bupiv/Epi 0.25% 30 ML Vial (10:14)
--- NOTE | 2025-01-24 10:55 | PCM.POST.ANE ---
Anesthesia: Postop Eval I Current Vital Signs Temperature: 98.6 F Pulse Rate: 120 Blood Pressure: 110/72 Respiratory Rate: 18 Pulse Ox: 97 Assessment Airway patent: Yes Spontaneous unlabored respirations: Yes nausea: No Vomiting: No Anesthesia Complication: No Fluid Hydration Crystalloid volume administer (ml): 1,000 Total IV fluid infused: 1,000 Progress Note Anesthesia document: Postop Eval 1 completed: Yes
--- NOTE | 2025-01-24 11:24 | OP.PCM_ITS ---
Operative Report (Standard) Operative Information Date of Procedure: 01/24/25 Pre-Operative Diagnosis: Right distal femur fracture with intra-articular extension Post-Operative Diagnosis: Right distal femur fracture with intra-articular extension Surgery/Procedure Performed: 1. Right distal femur open reduction internal fixation 2. Right femur retrograde nailing mail distribution scheme examiner: Yes Guitar Maker: Sunny Wolfe Tasks completed by program support assistant: Opening & closing, Implanting device, Hemostasis: Electrocautery and Retracting Type of Anesthesia: General RN Documented Start/Stop Times: Operation Date: 01/24/25 07:30 Case Time Into Pre-Op 01/24/25 06:50 Anesthesia Start 01/24/25 08:02 Into Room 01/24/25 08:02 Out of Pre-Op 01/24/25 08:05 Procedure Start 01/24/25 08:50 Procedure End 01/24/25 10:36 Anesthesia End 01/24/25 10:47 Out of Room 01/24/25 10:47 Into Recovery 01/24/25 10:50 Procedure Start Time: 08:50 Procedure Stop Time: 10:36 Select all DRAINS/GRAFTS/IMPLANTS that apply: Implanted device Implanted device details: Synthes RFN advanced retrograde nail 400 mm x 12 mm with 6 interlocking screws Locking attachment washer 5 degree right with four 3.5 mm VA locking screws Estimated Blood Loss: 200 cc Specimen collected: No Description of surgery: Patient was identified in preoperative holding area by name, medical record number, and date of . The operative extremity is marked. Patient was briefly taken off oxygen prior to surgery and desatted significantly into the 60s. He responded very well to 2 to [address] cannula oxygen. Dr. Rojas ordered a chest x-ray and a blood gas. Dr. Contreras was also notified. We made a joint decision that we felt the patient was at his baseline oxygen requirements and we felt it was safe to proceed with surgery. Decision was made to plan for transfer to ICU following surgery with possibility of delayed extubation. At time of his procedure, patient was brought to the operative suite positioned supine standard operating table. General anesthesia was induced and endotracheal tube placed. We prepped and draped the right lower extremity in normal, sterile orthopedic fashion. We performed timeout confirming the side, site, and operation to be performed. No concerns were voiced and elected proceed with surgery. 3 g Ancef was administered IV prior to incision by anesthesia staff. I then brought in C arm and confirmed that we were able to achieve a reasonable closed reduction of the fracture site in the metadiaphyseal portion of the bone. A stab incision was made laterally at the level of fracture site for introduction of a ball-spike pusher which achieved reasonable reduction. I then proceeded with retrograde nailing. Midline incision was made approximately 6 mm in length just inferior to the patella. Limited medial parapatellar arthrotomy was made. Soft tissue guide was placed in the intercondylar notch and starting pin was placed at the anterior margin of Blumensaat's line and midline at the intercondylar notch. Pin was placed and confirmed on orthogonal fluoroscopy. Opening reamer was used to enter the intramedullary canal. Ball-tipped wire was then placed after removal of the pin. Reduction was again confirmed. Sequential reaming to final diameter 13.5 mm was performed. Nail length was measured to the level of the lesser trochanter. Nail was then assembled on the back table and placed. Oblique interlocking screw in the distal cluster was placed to secure the nail via stab incision in standard fashion. I then made an open incision along the lateral femoral condyle for placement of the locking washer. This was placed and then secured to the targeter with the trocars. The 2 interlocking screws were then placed in standard fashion. I then contoured the washer to the bone and placed for 3.5 mm locking screws for additional articular fixation. The remaining oblique interlocking screw was then placed via stab incision in the retrograde nail. I then used perfect ho-chunk technique proximally to walk our construct via a 3 cm anterior thigh incision. Screws were placed in standard fashion with excellent purchase. Wounds irrigated with saline. Orthogonal fluoroscopy demonstrated acceptable reduction and stable and appropriately sized hardware. Wounds were irrigated with saline copiously. The arthrotomy was closed watertight with a running locking #1 STRATAFIX suture. IT band was closed in the lateral femoral incision with running, locking 0 Vicryl suture. Dermis of the incisions were closed in interrupted buried fashion with 2-0 Vicryl suture and skin reapproximated elvira. Field block was administered with 20 cc quarter percent bupivacaine with epinephrine. Bulky sterile compression dressings were applied. Patient tolerated the procedure well without apparent complication. He was safely extubated in the operative suite and put on a nonrebreather mask. He was transferred to PACU briefly and then subsequent ICU. He was satting well on 8 L nonrebreather mask upon transfer to the ICU. Postoperative plan: Restart home Xarelto tomorrow Touchdown weightbearing right lower extremity Dressing changes as needed for saturation Ice to the operative site Multimodal pain management Tylenol, oxycodone Follow-up in 2 weeks for x-rays and staple removal 24-hour prophylactic antibiotics Surgical Findings: Stable construct following final fixation Complications Complications: No Admit VTE Documentation VTE Present on Admission: No VTE Mechan Device Prophylaxis: SCD's VTE Pharm Prophylaxis ordered?: Yes
[2025-01-24 11:44] LABS: Potassium 5.7 mmol/L (3.3-5.1)
[2025-01-24] MEDS: HYDROmorphone 0.5 MG/0.5 ML SYRINGE IV ×2 (12:09→16:37)
--- NOTE | 2025-01-24 12:17 | POSTOPAN2_ITS ---
Anesthesia Postop Eval I Sum Postop Eval Completion status Anesthesia document: Postop Eval 1 completed: Yes Anesthesia Postop Eval I Summary Anesthesia Postop Eval I Summary: Anesthesia Postop Eval I: Assessment Summary Airway patent Yes 01/24/25 10:55 BEHAVIOR [email or web address] Spontaneous unlabored Yes 01/24/25 10:55 BEHAVIOR [email or web address] respirations Mental status nausea No 01/24/25 10:55 BEHAVIOR [email or web address] Vomiting No 01/24/25 10:55 BEHAVIOR [email or web address] Anesthesia Postop Eval I: Fluid Summary Crystalloid volume administer 1,000 01/24/25 10:55 BEHAVIOR [email or web address] (ml) Colloids volume administered ( ml) Blood Product volume administered (ml) Total IV fluid infused 1,000 01/24/25 10:55 BEHAVIOR [email or web address] Anesthesia Postop Eval I: Summary Notes Anesthesia Complication No 01/24/25 10:55 BEHAVIOR [email or web address] Anesthesia Complication Comment: Post-operative progress note Anesthesia: Postop Eval II Evaluation Mental status: Awake and Calm Pain Level: 2 nausea: No Vomiting: No
--- NOTE | 2025-01-24 12:17 | PCM.POSTANE2 ---
Anesthesia Postop Eval I Sum Postop Eval Completion status Anesthesia document: Postop Eval 1 completed: Yes Anesthesia Postop Eval I Summary Anesthesia Postop Eval I Summary: Anesthesia Postop Eval I: Assessment Summary Airway patent Yes 01/24/25 10:55 PATIENT CARE [email or web address] Spontaneous unlabored Yes 01/24/25 10:55 PATIENT CARE [email or web address] respirations Mental status nausea No 01/24/25 10:55 PATIENT CARE [email or web address] Vomiting No 01/24/25 10:55 PATIENT [email or web address] [email or web address] Anesthesia Postop Eval I: Fluid Summary Crystalloid volume administer 1,000 01/24/25 10:55 PATIENT [email or web address] [email or web address] (ml) Colloids volume administered ( ml) Blood Product volume administered (ml) Total IV fluid infused 1,000 01/24/25 10:55 PATIENT [email or web address] [email or web address] Anesthesia Postop Eval I: Summary Notes Anesthesia Complication No 01/24/25 10:55 PATIENT [email or web address] [email or web address] Anesthesia Complication Comment: Post-operative progress note Anesthesia: Postop Eval II Evaluation Mental status: Awake and Calm Pain Level: 2 nausea: No Vomiting: No
[2025-01-24] MEDS: Acetaminophen 500 MG Tablet 1000 MG PO ×2 (13:24→23:26)
[2025-01-24] MEDS: Sodium Polystyrene Sulfonate 15 GM/60 ML UDC 30 GM PO (13:24)
[2025-01-24] MEDS: Finasteride 5 MG Tablet PO (13:26)
[2025-01-24] MEDS: Tamsulosin HCl 0.4 MG Capsule PO (13:27)
[2025-01-24] MEDS: Metoprolol(XL)Succ 100 MG Tablet PO ×2 (13:28→23:26)
[2025-01-24] MEDS: Cefazolin 1 GM/50 ML BAG IV ×2 (14:49→23:27)
--- NOTE | 2025-01-24 15:42 | CASEMGMT ---
Addendum entered by Padmaja Gonzales 01/24/25 16:13: [facility]. Pt will be here through the weekend per physician. Will send updates on Monday. Pt will need a [facility] LOC. Padmaja Gonzales DC Planning Asst. Original Note: Discharge Planning Referral sent to [facility]. Padmaja Gonzales DC Planning Asst.
--- NOTE | 2025-01-24 16:10 | CASEMGMT ---
Social Work Pt had surgery today. SW met with pt after procedure. Pt states that he will be non weightbearing to E and therefore will not be able to return home. Pt states he has been to [facility] in the past and would like this facility again. DC assistant professor of communication updated and to send referral. PASRR completed in [facility] for SNF placement. SW updated physician and pt to remain in the hospital over the weekend. Level of care will need to be obtained prior to discharge. Plan: [facility], pending acceptance and LOC PIERRE Choe
[2025-01-24] MEDS: 0.9% Saline Lock 10 ML Syringe IV (16:38)
[2025-01-24 19:00] LABS: Potassium 4.7 mmol/L (3.3-5.1)
[2025-01-24] MEDS: Nystatin Powder 15gm Bottle 1 APPLIC TOPICAL (23:25)
[2025-01-24] MEDS: Menthol/Lanolin/Calamine/Znox 113 GM Tube 1 APPLIC TOPICAL (23:26)
[2025-01-24] MEDS: cycloBENZAPRine HCl 10 MG Tablet PO (23:26)
[2025-01-24] MEDS: Docusate Sodium 100 MG Capsule PO (23:26)
[2025-01-24] MEDS: Amitriptyline 25 MG Tablet PO (23:26)
[2025-01-24] MEDS: 0.9% Normal Saline (250mL Bag) 250 ML 15 ML IV (23:27)
[2025-01-25] VITALS (11 sets, daily range): BP systolic 100–119; BP diastolic 64–106; PULSE 109–131; RESP 16–20; TEMP 36.4–37.2; O2SAT 86–96; BMI 51.7
[2025-01-25] MEDS: oxyCODONE 5 MG Tablet PO ×3 (00:17→08:24)
--- NOTE | 2025-01-25 01:14 | CPS ---
Pt on own cpap/bipap machine with 3L O2 bled in.
[2025-01-25] MEDS: Rivaroxaban 10 MG Tablet PO (06:25)
[2025-01-25] MEDS: Acetaminophen 500 MG Tablet 1000 MG PO ×3 (06:25→22:33)
[2025-01-25 06:33] LABS: Absolute Lymphocyte Count 0.88 X10^3/uL (0.83-4.51); Absolute Neutrophil Count 7.1 X10^3/uL (2.0-7.7); Basophil# 0.01 X10^3/uL; Basophil% 0.1 % (0-1); Eosinophil# 0.02 X10^3/uL; Eosinophils% 0.2 % (0-5); Hematocrit 30.3 % (40-54); Hemoglobin 9.2 g/dL (13.0-16.5); Lymphocyte # 0.88 X10^3/ul (0.83-4.51); Mean Corp Hgb Conc 30.4 g/dL (32-36); Mean Corpuscular Hgb 25.4 pg (27.0-32.0); Mean Corpuscular Volume 83.7 fL (80-94); Mean Platelet Vol. 10.9 fl (6.2-12.0); Monocyte# 0.74 X10^3/uL; Monocyte% 8.4 % (0-10); NRBC Flagged by Analyzer 0 % (0-5); Neutrophil # 7.14 X10^3/uL (2.7-7.7); Neutrophil % 80.8 % (47-70); Platelet Count 213 K/mm3 (150-450); RBC Distribution Width CV 14.5 % (11.6-14.6); RBC Distribution Width SD 43.8 fl (35.1-43.9); Red Blood Count 3.62 M/mm3 (4.6-6.2); White Blood Count 8.8 K/mm3 (4.4-11.0)
[2025-01-25] MEDS: Metoprolol(XL)Succ 100 MG Tablet PO ×2 (06:47→22:32)
[2025-01-25 06:48] LABS: Anion Gap 8 (5-15); BUN 16 mg/dL (4-19); BUN/Creat Ratio 26.2 RATIO (10-20); Calcium,Total 7.8 mg/dL (7.6-11.0); Carbon Dioxide 29.4 mmol/L (21.0-32.0); Chloride 96 mmol/L (98-108); EST Glomerular Filtration Rate 109 (>60); Estimated Creatinine Clearance 218.31 ml/min (50-250); Glucose 151 mg/dL (70-99); Potassium 4.2 mmol/L (3.3-5.1); Sodium Level 133 mmol/L (133-145)
[2025-01-25] MEDS: Docusate Sodium 100 MG Capsule PO ×2 (08:24→22:31)
[2025-01-25] MEDS: Finasteride 5 MG Tablet PO (08:24)
[2025-01-25] MEDS: Tamsulosin HCl 0.4 MG Capsule PO (08:24)
[2025-01-25] MEDS: Albuterol 2.5 MG/3 ML VIAL.NEB. INHALATION (11:02)
[2025-01-25] MEDS: oxyCODONE 5 MG Tablet 15 MG PO (14:31)
--- NOTE | 2025-01-25 14:46 | PCM.PN.ORT ---
Subjective Subjective Patient seen and examined. Reports significant pain in his right lower extremity but pain is controlled at rest with current pain regimen. States his breathing feels better after breathing treatment today. Denies any shortness of breath. Denies fevers or chills, nausea or vomiting, chest pain or shortness of breath. Very little appetite. States he has not had a bowel movement for a week but reports decreased oral intake over the last week due to inability to get up and get a meal. He states is not unusual for him to skip meals for several days. Denies any abdominal pain or bloating. Aldana catheter placed today due to inability urinate. Objective Data Objective Data Vital Signs: Vital Signs Temp Pulse Resp BP Pulse Ox O2 Del Method O2 Flow Rate 98.3 F 109 H 18 100/65 93 CPAP 6 01/25/25 12:00 01/25/25 12:00 01/25/25 12:00 01/25/25 12:00 01/25/25 12:00 01/25/25 12:00 01/25/25 12:00 FiO2 35 01/25/25 11:05 Oxygen Flow Rate (L/min) 6 Oxygen Delivery Method CPAP Weight: 403 lb 3.607 oz Body Mass Index (BMI) 51.7 Intake & Output: Intake and Output for Last 24 Hours 01/23/25 01/24/25 01/25/25 23:59 23:59 23:59 Intake Total 200 / 200 265 / 265 908.25 / 908.25 Output Total 500 / 500 1500 / 1500 550 / 550 Balance -300 / -300 -1235 / -1235 358.25 / 358.25 Lab / Micro Data 01/25/25 06:10 01/25/25 06:10 Labs: Laboratory Results - last 24 hr 01/24/25 18:11: Potassium 4.7 01/25/25 06:10: WBC 8.8, RBC 3.62 L, Hgb 9.2 L, Hct 30.3 L, MCV 83.7, MCH 25.4 L, MCHC 30.4 L, RDW Std Deviation 43.8, RDW Coeff of Tasha 14.5, Plt Count 213, MPV 10.9, Immature Gran % (Auto) 0.500, Neut % (Auto) 80.8 H, Lymph % (Auto) 10.0 L, [place] % (Auto) 8.4, Eos % (Auto) 0.2, Baso % (Auto) 0.1, Absolute Neuts (auto) 7.1, Absolute Lymphs (auto) 0.88, Nucleated RBC % 0, Sodium 133, Potassium 4.2, Chloride 96 L, Carbon Dioxide 29.4, Anion Gap 8, BUN 16, Creatinine 0.60 L, Estim Creat Clear Calc 218.31, Est GFR (MDRD) Non-Af 109, BUN/Creatinine Ratio 26.2 H, Glucose 151 H, Calcium 7.8 Micro: Microbiology 01/22/25 10:20 Urine, Clean Catch Urine Culture - Final GNR Poss Pseudomonas sp Mixed Gram Positive Organisms Physical Exam Narrative General - A&Ox3, NAD. Satting well on CPAP. Mildly tachycardic. Right lower extremity -incisional dressing C/D/I. SILT Sural, Saphenous, SPN, DPN, Tibial N. distributions. DP, PT 2+. BCR. DF, PF, EHL 5/5. No calf TTP. Assessment & Plan Assessment/Plan (1) Closed fracture of right distal femur: QUALIFIERS: Encounter type: initial encounter PLAN: POD# 1 s/p right femur CMN, ORIF -Acute on chronic blood loss anemia secondary to anticipated blood loss with surgery. No indication for transfusion at this point. Trend H&H. - Pain control - Medicine following for medical management - PT/OT -touchdown weightbearing - DVT PPX -multimodal with SCDs and restart home Xarelto - Case management - D/C planning. Anticipate SNF.
--- NOTE | 2025-01-25 18:38 | PN.HOSP_ITS ---
Reason for Visit Reason for Visit: Diagnoses Unspecified fracture of lower end of right femur, initial encounter for closed fracture (01/22/25) Unspecified fall, initial encounter (01/22/25) Subjective Subjective Patient was seen and examined today, he complains of pain in his right leg from his fracture and repair, I have elected to increase the patient's narcotics today. Patient has no complaints of any shortness of breath or chest discomfort. We will need approval for patient to go to an extended care facility for short-term rehab services. He was in a alf unit at [facility] until recently and only had been home for short period of time. The plan is for the patient to return there for inpatient rehab services. Objective Data Objective Data Vital Signs: Vital Signs Temp Pulse Resp BP Pulse Ox O2 Del Method O2 Flow Rate 98.6 F 129 H 18 119/106 H 91 CPAP 6 01/25/25 17:30 01/25/25 17:30 01/25/25 17:30 01/25/25 17:30 01/25/25 17:30 01/25/25 17:30 01/25/25 17:30 FiO2 35 01/25/25 11:05 Oxygen Flow Rate (L/min) 6 Oxygen Delivery Method CPAP Weight: 182.9 kg Body Mass Index (BMI) 51.7 Intake & Output: Intake and Output for Last 24 Hours 01/23/25 01/24/25 01/25/25 23:59 23:59 23:59 Intake Total 200 / 200 265 / 265 908.25 / 908.25 Output Total 500 / 500 1500 / 1500 1350 / 1350 Balance -300 / -300 -1235 / -1235 -441.75 / -441.75 Lab / Micro Data 01/26/25 04:09 01/26/25 04:09 Labs: Laboratory Results - last 24 hr 01/24/25 18:11: Potassium 4.7 01/25/25 06:10: WBC 8.8, RBC 3.62 L, Hgb 9.2 L, Hct 30.3 L, MCV 83.7, MCH 25.4 L , MCHC 30.4 L, RDW Std Deviation 43.8, RDW Coeff of Tasha 14.5, Plt Count 213, MPV 10.9, Immature Gran % (Auto) 0.500, Neut % (Auto) 80.8 H, Lymph % (Auto) 10.0 L, [place] % (Auto) 8.4, Eos % (Auto) 0.2, Baso % (Auto) 0.1, Absolute Neuts (auto) 7.1, Absolute Lymphs (auto) 0.88, Nucleated RBC % 0, Sodium 133, Potassium 4.2, Chloride 96 L, Carbon Dioxide 29.4, Anion Gap 8, BUN 16, Creatinine 0.60 L, Estim Creat Clear Calc 218.31, Est GFR (MDRD) Non-Af 109, BUN/Creatinine Ratio 26.2 H, Glucose 151 H, Calcium 7.8 Micro: Microbiology 01/22/25 10:20 Urine, Clean Catch Urine Culture - Final GNR Poss Pseudomonas sp Mixed Gram Positive Organisms Physical Exam Narrative alert and no apparent distress Constitutional Narrative: Patient has class III obesity General Appearance: cooperative, well kempt and well developed Orientation / Consciousness: awake, oriented to person and oriented to place HEENT normocephalic, head/scalp atraumatic and moist oral mucous membranes Eyes PERRL, EOMs intact bilaterally and conjunctivae normal Neck supple, no JVD, thyroid normal and no carotid bruits General: trachea midline Resp normal respiratory effort, no retractions, no use of accessory muscles and clear to auscultation bilaterally Auscultation: Negative for rales, rhonchi or wheezes Cardio S1 normal heart sound, S2 normal heart sound, no murmurs, no rub and no gallops Cardio Narrative: Heart rate and rhythm is irregular GI normal to inspection, nondistended, normoactive bowel sounds, soft to palpation, non-tender and non-distended Extremity Extremity Narrative: Right leg is wrapped with surgical dressing Skin no rashes or lesions noted General Skin Exam: no breakdown Neuro CN's II-XII intact bilaterally, moves all extremities, no focal motor deficits and no sensory deficits noted Sensorium / Orientation: awake, alert, oriented to person and oriented to place Speech: speech normal Psych affect normal Assessment & Plan Assessment/Plan (1) Atrial fibrillation: QUALIFIERS: Atrial fibrillation type: paroxysmal Qualified Code(s): I48.0 - Paroxysmal atrial fibrillation PLAN: Plan 1. Fracture of the distal right femur-postop day 1-continue PT and OT, we are awaiting approval for the patient to go to a skilled care facility #2 chronic atrial fibs/flutter-patient is on anticoagulation and metoprolol #3 class III obesity-complicates care, management, recovery, and prognosis #4 obstructive sleep apnea-patient wears CPAP #5 chronic hypoxic respiratory failure-patient uses 3 L of oxygen continuously at baseline Total clinical time spent by myself addressing the patient's medical issues, reviewing all of his data, and collaborating with patient's care team: 35 minutes L Charges/Coding Visit Charges Inpatient E&M: 33199 Subs Hosp L2
[2025-01-25] MEDS: Amitriptyline 25 MG Tablet PO (22:31)
[2025-01-25] MEDS: cycloBENZAPRine HCl 10 MG Tablet PO (22:32)
[2025-01-25] MEDS: HYDROmorphone 0.5 MG/0.5 ML SYRINGE IV (22:35)
[2025-01-25] MEDS: Nystatin Powder 15gm Bottle 1 APPLIC TOPICAL (22:39)
[2025-01-26] VITALS (15 sets, daily range): BP systolic 91–122; BP diastolic 53–95; PULSE 97–128; RESP 14–22; TEMP 35.9–36.7; O2SAT 93–100; BMI 54.1
--- NOTE | 2025-01-26 01:13 | ED.RN ---
patient refusing to roll for this RN to complete shift assessment, unable to listen to posterior lung sounds or posterior skin assessment
--- NOTE | 2025-01-26 02:00 | PCM.HOSP.N ---
Hospitalist Note Patient with RVR, sustained, BP lower end, will trial amiodarone bolus.
[2025-01-26] MEDS: Amiodarone 150 MG in Dextrose 5%-Water (100mL Bag) 100 ML 600 MG IV BOLUS (02:41)
--- NOTE | 2025-01-26 03:02 | NURSING ---
Addendum entered by Mohini Ross 01/26/25 05:32: Amiodarone stopped at the time of initiating staff assist. Original Note: This RN in room to administer Amiodarone IV Bolus. This RN initiated amiodarone, patient's VS WNL, on home cpap. Pt quickly became bradypneic, and unresponsive. This RN called staff assist, additional staff to room and VIDEO PRODUCTION ASSISTANT called. See VIDEO PRODUCTION ASSISTANT documentation.
[2025-01-26 03:05] LABS: Bedside Glucose 176 mg/dL (74-106)
[2025-01-26] MEDS: Albuterol 2.5 MG/3 ML VIAL.NEB. INHALATION (03:06)
--- NOTE | 2025-01-26 03:25 | CPS ---
Pt on home cpap unit with 4L bled into machine
[2025-01-26 04:56] LABS: Absolute Neutrophil Count 6.6 X10^3/uL (2.0-7.7); Basophil# 0.04 X10^3/uL; Basophil% 0.4 % (0-1); Eosinophil# 0.25 X10^3/uL; Eosinophils% 2.8 % (0-5); Hematocrit 29.4 % (40-54); Hemoglobin 9.3 g/dL (13.0-16.5); Lymphocyte % 11.2 % (19-41); Mean Corp Hgb Conc 31.6 g/dL (32-36); Mean Corpuscular Hgb 25.9 pg (27.0-32.0); Mean Corpuscular Volume 81.9 fL (80-94); Mean Platelet Vol. 11.6 fl (6.2-12.0); Monocyte# 0.91 X10^3/uL; Monocyte% 10.2 % (0-10); NRBC Flagged by Analyzer 0 % (0-5); Neutrophil # 6.62 X10^3/uL (2.7-7.7); Neutrophil % 74.5 % (47-70); Platelet Count 194 K/mm3 (150-450); RBC Distribution Width SD 43.4 fl (35.1-43.9); Red Blood Count 3.59 M/mm3 (4.6-6.2); White Blood Count 8.9 K/mm3 (4.4-11.0)
[2025-01-26 05:24] LABS: Anion Gap 10 (5-15); BUN 12 mg/dL (4-19); BUN/Creat Ratio 22.2 RATIO (10-20); Calcium,Total 7.8 mg/dL (7.6-11.0); Carbon Dioxide 28.8 mmol/L (21.0-32.0); Chloride 94 mmol/L (98-108); Creatinine, Serum 0.55 mg/dL (0.70-1.20); EST Glomerular Filtration Rate 111 (>60); Estimated Creatinine Clearance 238.16 ml/min (50-250); Glucose 173 mg/dL (70-99); Potassium 3.5 mmol/L (3.3-5.1); Sodium Level 133 mmol/L (133-145)
[2025-01-26] MEDS: oxyCODONE 5 MG Tablet 15 MG PO ×3 (06:18→21:23)
[2025-01-26] MEDS: Acetaminophen 500 MG Tablet 1000 MG PO ×3 (06:18→21:25)
[2025-01-26] MEDS: Rivaroxaban 10 MG Tablet PO (06:19)
[2025-01-26] MEDS: Metoprolol(XL)Succ 100 MG Tablet PO ×2 (06:19→21:25)
[2025-01-26] MEDS: Tamsulosin HCl 0.4 MG Capsule PO (11:05)
[2025-01-26] MEDS: Docusate Sodium 100 MG Capsule PO ×2 (11:05→21:24)
[2025-01-26] MEDS: Finasteride 5 MG Tablet PO (11:05)
--- NOTE | 2025-01-26 12:31 | PN.ORTHO_ITS ---
Subjective Subjective Patient seen and examined. Denies any new complaints. Denies fevers, chills, nausea vomiting, chest pain or shortness of breath. Pain controlled at rest. Objective Data Objective Data Vital Signs: Vital Signs Temp Pulse Resp BP Pulse Ox O2 Del Method O2 Flow Rate 96.6 F L 102 H 16 106/69 94 CPAP 6 01/26/25 11:00 01/26/25 11:00 01/26/25 11:00 01/26/25 11:00 01/26/25 11:00 01/26/25 11:00 01/26/25 11:00 FiO2 35 01/25/25 11:05 Oxygen Flow Rate (L/min) 6 Oxygen Delivery Method CPAP Weight: 403 lb 3.607 oz Body Mass Index (BMI) 51.7 Intake & Output: Intake and Output for Last 24 Hours 01/24/25 01/25/25 01/26/25 23:59 23:59 23:59 Intake Total 265 / 265 968.25 / 968.25 380 / 380 Output Total 1500 / 1500 1750 / 1750 950 / 950 Balance -1235 / -1235 -781.75 / -781.75 -570 / -570 Lab / Micro Data 01/26/25 04:09 01/26/25 04:09 Labs: Laboratory Results - last 24 hr 01/26/25 02:47: POC Glucose 176 H 01/26/25 04:09: WBC 8.9, RBC 3.59 L, Hgb 9.3 L, Hct 29.4 L, MCV 81.9, MCH 25.9 L , MCHC 31.6 L, RDW Std Deviation 43.4, RDW Coeff of Tasha 15.0 H, Plt Count 194, MPV 11.6, Immature Gran % (Auto) 0.900, Neut % (Auto) 74.5 H, Lymph % (Auto) 11.2 L, [place] % (Auto) 10.2 H, Eos % (Auto) 2.8, Baso % (Auto) 0.4, Absolute Neuts (auto) 6.6, Absolute Lymphs (auto) 1.00, Nucleated RBC % 0, Sodium 133, Potassium 3.5, Chloride 94 L, Carbon Dioxide 28.8, Anion Gap 10, BUN 12, C reatinine 0.55 L, Estim Creat Clear Calc 238.16, Est GFR (MDRD) Non-Af 111, B UN/Creatinine Ratio 22.2 H, Glucose 173 H, Calcium 7.8 Micro: Microbiology 01/22/25 10:20 Urine, Clean Catch Urine Culture - Final GNR Poss Pseudomonas sp Mixed Gram Positive Organisms Physical Exam Narrative General - A&Ox3, NAD. Satting well on CPAP. Mildly tachycardic. Right lower extremity -incisional dressing C/D/I. SILT Sural, Saphenous, SPN, DPN, Tibial N. distributions. DP, PT 2+. BCR. DF, PF, EHL /. No calf TTP. Assessment & Plan Assessment/Plan (1) Closed fracture of right distal femur: QUALIFIERS: Encounter type: initial encounter PLAN: POD# 1 s/p right femur CMN, ORIF -Acute on chronic blood loss anemia secondary to anticipated blood loss with surgery. No indication for transfusion at this point. Stable today. - Pain control - Medicine following for medical management - PT/OT -touchdown weightbearing right lower extremity - DVT PPX -multimodal with SCDs and restart home Xarelto - Case management - D/C planning. Anticipate SNF. I will sign off at this time. Please do not hesitate to call if any questions or concerns arise. Okay to shower postoperative day #4 if no drainage. Dry sterile dressing changes as needed. Follow-up in 2 weeks for staple removal and x-rays. Continue touchdown weightbearing right lower extremity. Continue Xarelto.
--- NOTE | 2025-01-26 14:29 | PN.HOSP_ITS ---
Reason for Visit Reason for Visit: Diagnoses Unspecified fracture of lower end of right femur, initial encounter for closed fracture (01/22/25) Unspecified fall, initial encounter (01/22/25) Subjective Subjective Patient was seen and examined today, he remains in bed most of the time according to nursing, I talked briefly with orthopedic surgery about his care. Patient remains in what appears to be atrial flutter, at times his rate is high, nursing states that amiodarone IV was administered last night but the patient became short of breath during the administration and it was stopped. I talked with cardiology today about seeing the patient for input regarding rate control. Objective Data Objective Data Vital Signs: Vital Signs Temp Pulse Resp BP Pulse Ox O2 Del Method O2 Flow Rate 96.6 F L 102 H 16 106/69 94 CPAP 6 01/26/25 11:00 01/26/25 11:00 01/26/25 11:00 01/26/25 11:00 01/26/25 11:00 01/26/25 11:00 01/26/25 11:00 FiO2 35 01/25/25 11:05 Oxygen Flow Rate (L/min) 6 Oxygen Delivery Method CPAP Weight: 191.2 kg Body Mass Index (BMI) 54.1 Intake & Output: Intake and Output for Last 24 Hours 01/24/25 01/25/25 01/26/25 23:59 23:59 23:59 Intake Total 265 / 265 968.25 / 968.25 380 / 380 Output Total 1500 / 1500 1750 / 1750 950 / 950 Balance -1235 / -1235 -781.75 / -781.75 -570 / -570 Lab / Micro Data 01/26/25 04:09 01/26/25 04:09 Labs: Laboratory Results - last 24 hr 01/26/25 02:47: POC Glucose 176 H 01/26/25 04:09: WBC 8.9, RBC 3.59 L, Hgb 9.3 L, Hct 29.4 L, MCV 81.9, MCH 25.9 L , MCHC 31.6 L, RDW Std Deviation 43.4, RDW Coeff of Tasha 15.0 H, Plt Count 194, MPV 11.6, Immature Gran % (Auto) 0.900, Neut % (Auto) 74.5 H, Lymph % (Auto) 11.2 L, [place] % (Auto) 10.2 H, Eos % (Auto) 2.8, Baso % (Auto) 0.4, Absolute Neuts (auto) 6.6, Absolute Lymphs (auto) 1.00, Nucleated RBC % 0, Sodium 133, Potassium 3.5, Chloride 94 L, Carbon Dioxide 28.8, Anion Gap 10, BUN 12, C reatinine 0.55 L, Estim Creat Clear Calc 238.16, Est GFR (MDRD) Non-Af 111, B UN/Creatinine Ratio 22.2 H, Glucose 173 H, Calcium 7.8 Micro: Microbiology 01/22/25 10:20 Urine, Clean Catch Urine Culture - Final GNR Poss Pseudomonas sp Mixed Gram Positive Organisms Physical Exam Const alert and no apparent distress Constitutional Narrative: Patient has class III obesity General Appearance: cooperative, well kempt and well developed Orientation / Consciousness: awake, oriented to person and oriented to place HEENT normocephalic, head/scalp atraumatic and moist oral mucous membranes Eyes PERRL, EOMs intact bilaterally and conjunctivae normal Neck supple, no JVD, thyroid normal and no carotid bruits General: trachea midline Resp normal respiratory effort, no retractions, no use of accessory muscles and clear to auscultation bilaterally Auscultation: Negative for rales, rhonchi or wheezes Cardio S1 normal heart sound, S2 normal heart sound, no murmurs, no rub and no gallops Cardio Narrative: Heart rate and rhythm is irregular GI normal to inspection, nondistended, normoactive bowel sounds, soft to palpation, non-tender and non-distended Extremity Extremity Narrative: Right leg is wrapped with surgical dressing Skin no rashes or lesions noted General Skin Exam: no breakdown Neuro CN's II-XII intact bilaterally, moves all extremities, no focal motor deficits and no sensory deficits noted Sensorium / Orientation: awake, alert, oriented to person and oriented to place Speech: speech normal Psych affect normal Assessment & Plan Assessment/Plan (1) Closed fracture of right distal femur: QUALIFIERS: Encounter type: initial encounter PLAN: Plan 1. Fracture of the distal right femur-postop day 2-continue PT and OT, we are awaiting approval for the patient to go to a skilled care facility #2 chronic atrial fibs/flutter-patient is on anticoagulation and metoprolol, I have asked cardiology to see the patient regarding further input for rate control #3 class III obesity-complicates care, management, recovery, and prognosis #4 obstructive sleep apnea-patient wears CPAP #5 chronic hypoxic respiratory failure-patient uses 3 L of oxygen continuously at baseline Total clinical time spent by myself addressing the patient's medical issues, reviewing all of his data, and collaborating with patient's care team: 35 minutes Charges/Coding Visit Charges Inpatient E&M: 21190 Subs Hosp L2
--- NOTE | 2025-01-26 18:23 | PCM.CONS.C ---
Assessment & Plan Assessment/Plan (1) Atrial fibrillation: QUALIFIERS: Atrial fibrillation type: paroxysmal Qualified Code(s): I48.0 - Paroxysmal atrial fibrillation PLAN: Patient has had cardioversion in the past. He states that he is symptomatic from his A-fib and when he was in sinus rhythm he felt much better. He has been referred to EP service for consideration for ablation. He is waiting for this to be done as an outpatient. Currently his rapid ventricular response could be related to pain, drop in hemoglobin etc. We will try adding digoxin to his regimen to see if this helps with patient's symptoms and heart rate control. He is on Xarelto for A-fib as well. HPI Consult Data Date of Consult: 01/26/25 HPI Narrative Reason for Consultation: Atrial fibrillation HPI Narrative: CARLIN SMITH, is a 64 M who presents with hip fracture on 01/23/2025. He had surgery for this on 01/24/2025. He does have history of atrial fibrillation. His heart rate has been around 107-120 and cardiology consult was requested. Patient does report pain at the operative site. His hemoglobin has also dropped around 2 g since admission. However patient says that whenever his heart rate goes up he feels very symptomatic from it. [facility] Medical History (Updated 01/26/25 @ 18:[address] Semaj Roberts MD) Atrial fibrillation Dehydration Candidal skin infection Generalized weakness Unable to ambulate Complicated urinary tract infection Adult failure to thrive History of ESBL Klebsiella pneumoniae infection Chronic pain of both lower extremities Alcohol abuse Rheumatoid arthritis GERD (gastroesophageal reflux disease) Asthma Restless legs syndrome Weakness Acute hyponatremia Internal impingement of right shoulder Right shoulder pain MRSA infection PTSD (post-traumatic stress disorder) Thyroid disease DVT (deep venous thrombosis) Back pain Syncope Blackout History of ulceration Sleep apnea CPAP (continuous positive airway pressure) dependence Bladder disease Dysphagia Urine retention Dysuria Wears glasses Wears dentures Anxiety Alcohol use Marijuana use Uses wheelchair Walker as ambulation aid Ambulates with cane Gout Arthritis Prostate disease Anemia Easy bruising Excessive bleeding History of hiatal hernia Urinary incontinence Gastric reflux Shortness of breath on exertion Former smoker Leg cramps History of edema History of rheumatic fever History of atrial fibrillation History of stress test History of Holter monitoring History of echocardiogram Cardiology follow-up encounter Ventricular ectopy Cardiomyopathy Paroxysmal atrial fibrillation Paroxysmal ventricular tachycardia HTN (hypertension) Cardiomyopathy Atrial fibrillation with rapid ventricular response Atrial fibrillation Debility CHI (closed head injury) Chronic atrial fibrillation Traumatic injury to skin or subcutaneous tissue History of DVT (deep vein thrombosis) Essential hypertension Atrial flutter History of sepsis Abdominal wall pain Left fibular fracture Rheumatic fever Morbid obesity Chronic pain BPH (benign prostatic hyperplasia) ADD (attention deficit disorder) Neuropathy Depression Calcium deficiency Vitamin B12 deficiency Fibromyalgia Home Medications ?Medication ?Instructions ?Recorded ?Last Taken ?Type cyanocobalamin (vitamin B-12) 1,000 mcg IM Q30D DEFICIENCY 05/28/18 01/21/25 History 1,000 mcg/mL injection solution tamsulosin 0.4 mg capsule 0.4 mg PO DAILY bladder 04/09/21 01/22/25 History doxepin 50 mg capsule 50 mg PO QHS sleep 01/26/23 01/21/25 History finasteride 5 mg tablet 5 mg PO DAILY PROSTATE 01/26/23 01/22/25 History calcium carbonate 1,000 mg (5 x 200 mg calcium (500 01/22/24 01/21/25 Rx mg)) PO Q4H PRN PRN DYSPEPSIA/INDIGESTION #0 tabs acetaminophen 325 mg tablet 650 mg (2 x 325 mg) PO Q6H PRN PRN 08/29/24 01/22/25 Rx Pain 1-10 Or Fever >100.7 #0 tabs albuterol sulfate 2.5 mg/3 mL 2.5 mg (3 mL) inhalation Q2H PRN 08/29/24 01/21/25 Rx (0.083 %) solution for nebulization PRN SOB &/OR WHEEZING #0 mL nystatin 100,000 unit/gram topical 1 applic topical TID #0 grams 08/29/24 01/22/25 Rx powder ([facility]) metoprolol succinate 100 mg 100 mg PO Q12H heart 12/13/24 01/22/25 History tablet,extended release 24 hr rivaroxaban 20 mg tablet (Xarelto) 15 mg PO QDAY afib 12/13/24 01/22/25 History amitriptyline 25 mg tablet 25 mg PO QHS antidep 01/22/25 01/21/25 History cyclobenzaprine 10 mg tablet 10 mg PO QHS leg cramps 01/22/25 01/21/25 History fluconazole 150 mg tablet 150 mg PO DAILY yeast 01/22/25 01/22/25 History furosemide 40 mg tablet 40 mg PO DAILY PRN swelling 01/22/25 01/19/25 History Allergy/AdvReac Type Severity Reaction Status Date / Time duloxetine (From Cymbalta) Allergy Severe Other Verified 01/22/25 14:30 amiodarone AdvReac mild Verified 01/26/25 03:05 dyspnea Family History Mother Diabetes Thyroid disorder Father Diabetes Heart disease CABG x5 in his 50s COPD (chronic obstructive pulmonary disease) Hypertension Pulmonary fibrosis Other Arthritis Lupus Surgical History History of cardiac catheterization History of hand surgery History of esophagogastroduodenoscopy (EGD) History of cardioversion (~08/10/21) History of left heart catheterization (04/30/21) History of hernia repair Status post removal of thyroid nodule H/O gastric bypass Social History Smoking Status: Former smoker how long ago did patient quit smokin years ago second hand exposure: No alcohol intake: current alcohol intake frequency: a few times a week details: 4-6 cans (12 oz) of beer a couple times per week substance use type: marijuana caffeine: No what type of physical activity do you participate in: none frequency: decline to answer khloe/mosque: [employer] seatbelt use: never Physical Exam Const alert HEENT normocephalic Eyes no scleral icterus Resp normal respiratory effort Cardio Cardio Narrative: Irregular rhythm Risk Stratification Risk Stratification Applicable: No Charges/Coding Visit Charges Inpatient E&M: 06913 Init Hosp L1 Objective Data Vital Signs: Vital Signs Temp Pulse Resp BP Pulse Ox O2 Del Method O2 Flow Rate 97.8 F 104 H 19 H 107/73 96 CPAP 6 01/26/25 17:00 01/26/25 17:00 01/26/25 17:00 01/26/25 17:00 01/26/25 17:00 01/26/25 17:00 01/26/25 17:00 FiO2 35 01/26/25 13:48 Oxygen Flow Rate (L/min) 6 Oxygen Delivery Method CPAP Weight: 421 lb 8.381 oz Body Mass Index (BMI) 54.1 Intake & Output: Intake and Output for Last 24 Hours 01/24/25 01/25/25 01/26/25 23:59 23:59 23:59 Intake Total 265 / 265 968.25 / 968.25 920 / 920 Output Total 1500 / 1500 1750 / 1750 1500 / 1500 Balance -1235 / -1235 -781.75 / -781.75 -580 / -580 Lab / Micro Data 01/26/25 04:09 01/26/25 04:09 Labs: Laboratory Results - last 24 hr 01/26/25 02:47: POC Glucose 176 H 01/26/25 04:09: WBC 8.9, RBC 3.59 L, Hgb 9.3 L, Hct 29.4 L, MCV 81.9, MCH 25.9 L, MCHC 31.6 L, RDW Std Deviation 43.4, RDW Coeff of Tasha 15.0 H, Plt Count 194, MPV 11.6, Immature Gran % (Auto) 0.900, Neut % (Auto) 74.5 H, Lymph % (Auto) 11.2 L, [place] % (Auto) 10.2 H, Eos % (Auto) 2.8, Baso % (Auto) 0.4, Absolute Neuts (auto) 6.6, Absolute Lymphs (auto) 1.00, Nucleated RBC % 0, Sodium 133, Potassium 3.5, Chloride 94 L, Carbon Dioxide 28.8, Anion Gap 10, BUN 12, Creatinine 0.55 L, Estim Creat Clear Calc 238.16, Est GFR (MDRD) Non-Af 111, BUN/Creatinine Ratio 22.2 H, Glucose 173 H, Calcium 7.8 Cardiology Labs/Tests 01/26/25 04:09: WBC 8.9, RBC 3.59 L, Hgb 9.3 L, Hct 29.4 L, MCV 81.9, MCH 25.9 L, MCHC 31.6 L, Plt Count 194, MPV 11.6, Immature Gran % (Auto) 0.900, Neut % (Auto) 74.5 H, Lymph % (Auto) 11.2 L, [place] % (Auto) 10.2 H, Eos % (Auto) 2.8, Baso % (Auto) 0.4, Absolute Neuts (auto) 6.6, Nucleated RBC % 0, Sodium 133, Potassium 3.5, Chloride 94 L, Carbon Dioxide 28.8, Anion Gap 10, BUN 12, Creatinine 0.55 L, Est GFR (MDRD) Non-Af 111, BUN/Creatinine Ratio 22.2 H, Glucose 173 H, Calcium 7.8 Rhythm: EKG: ECHO: Stress Test: Cardiac Cath: PCI: CT Surgery: Holter monitor: EPS: PPM: CXR: Chest CT Scan:
[2025-01-26] MEDS: Digoxin 250 MCG Tablet 500 MCG PO (18:42)
[2025-01-26] MEDS: Amitriptyline 25 MG Tablet PO (21:24)
[2025-01-26] MEDS: cycloBENZAPRine HCl 10 MG Tablet PO (21:25)
[2025-01-26] MEDS: Nystatin Powder 15gm Bottle 1 APPLIC TOPICAL (21:25)
[2025-01-26] MEDS: 0.9% Saline Lock 10 ML Syringe IV (21:30)
[2025-01-27] VITALS (8 sets, daily range): BP systolic 91–114; BP diastolic 59–70; PULSE 66–109; RESP 14–16; TEMP 36.2–36.6; O2SAT 95–100; BMI 54.1
[2025-01-27] MEDS: Digoxin 250 MCG Tablet PO ×2 (00:16→09:09)
[2025-01-27] MEDS: Acetaminophen 500 MG Tablet 1000 MG PO ×2 (05:12→14:47)
[2025-01-27] MEDS: Rivaroxaban 10 MG Tablet PO (05:12)
[2025-01-27] MEDS: oxyCODONE 5 MG Tablet 15 MG PO ×3 (05:12→14:48)
--- NOTE | 2025-01-27 07:57 | PCM.PN.CARD ---
Subjective Subjective Patient is resting comfortably in recumbent position in bed with his BiPAP in place. Telemetry shows that he remains in atrial fibrillation. Heart rate is adequately controlled at 90-105. Objective Data Vital Signs: Vital Signs Temp Pulse Resp BP Pulse Ox O2 Del Method O2 Flow Rate 97.8 F 66 15 103/59 L 97 CPAP 5 01/27/25 05:13 01/27/25 05:13 01/27/25 05:13 01/27/25 05:13 01/27/25 05:13 01/27/25 05:14 01/27/25 05:14 FiO2 35 01/26/25 13:48 Oxygen Flow Rate (L/min) 5 Oxygen Delivery Method CPAP Weight: 421 lb 11.909 oz Body Mass Index (BMI) 54.1 Intake & Output: Intake and Output for Last 24 Hours 01/25/25 01/26/25 01/27/25 23:59 23:59 23:59 Intake Total 968.25 / 968.25 1040 / 1040 0 / 0 Output Total 1750 / 1750 2250 / 2250 300 / 300 Balance -781.75 / -781.75 -1210 / -1210 -300 / -300 Lab / Micro Data Attestation: I reviewed the patient's lab results. 01/26/25 04:09 01/26/25 04:09 Rhythm Strip Rhythm Strip: A-fib Rate: 95 Cardiology Labs/Tests Rhythm: EKG: ECHO: Stress Test: Cardiac Cath: PCI: CT Surgery: Holter monitor: EPS: PPM: CXR: Chest CT Scan: Physical Exam Const alert and oriented x3 HEENT normocephalic Neck no JVD Neck Narrative: Very thick neck Chest inspection of chest normal Resp normal respiratory effort and clear to auscultation bilaterally Cardio Rate: regular rate Rhythm: abnormal rhythm regularly irregular Heart Sounds: S1 normal and S2 normal; Negative for click, gallop or murmur GI GI Narrative: Obese Extremity Extremity Narrative: Right lower extremity wrapped trace bilateral edema. General Extremity: edema bilateral lower extremity Details: trace Neuro Neuro Narrative: Alert and oriented x 3 Psych mental status grossly normal Assessment & Plan Assessment/Plan (1) Atrial fibrillation: QUALIFIERS: Atrial fibrillation type: paroxysmal Qualified Code(s): I48.0 - Paroxysmal atrial fibrillation PLAN: Plan Patient's initial ECG on January 23, 2025 showed atrial flutter with 3-1 conduction. 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 Patient has a history of an echocardiogram August 2024 with a similar ECG showing an old inferior wall infarct that showed normal LV function EF of 60%. Both atria are of normal size and there is no significant valvular heart disease. Telemetry now shows atrial fibrillation with a controlled ventricular response in the 95 bpm range. Patient reports that he has paroxysms of atrial fibs in his home environment. When he is in atrial fibs he is very symptomatic he gets dizzy and has had multiple falls believed to be related to his atrial fibrillation. The patient has been evaluated at [facility] by the EP service and is awaiting a scheduled radiofrequency ablation for JuneJuly 2025. Currently the patient is tolerating his Xarelto and rate control medical therapy. In his home environment he is on metoprolol succinate 100 mg twice daily. And Xarelto 15 mg daily. Lanoxin was added here to assist with rate control. At the time of discharge the Lanoxin should probably be discontinued. The patient should follow-up in the [facility] in 7 to 10 days after discharge for an ECG and appointment with advanced practitioner. We will try to arrange a more expedited ablation if possible. Charges/Coding Visit Charges Inpatient E&M: 78383 Subs Hosp L2
[2025-01-27] MEDS: Tamsulosin HCl 0.4 MG Capsule PO (09:09)
[2025-01-27] MEDS: Docusate Sodium 100 MG Capsule PO (09:09)
[2025-01-27] MEDS: Metoprolol(XL)Succ 100 MG Tablet PO (09:10)
[2025-01-27] MEDS: Finasteride 5 MG Tablet PO (09:10)
[2025-01-27] MEDS: Nystatin Powder 15gm Bottle 1 APPLIC TOPICAL (09:11)
--- NOTE | 2025-01-27 10:36 | CASEMGMT ---
Discharge Planning Updates sent to [facility]. Padmaja Gonzales DC Planning Asst.
--- NOTE | 2025-01-27 11:16 | TREXTCAR_ITS ---
Diet Diet Order/Speech Therapy: INPATIENT Hospital Diet / Speech Therapy Order(s) 01/26/25 15:35 Diet: Regular - General Routine Orders/Code Status Code Status: Full Code DC O2, CPAP, BIPAP needs Home O2 Discharge instructions: Yes Type of respiratory needs?: Oxygen Oxygen frequency: Continuous Continuous oxygen liters per minute: 4 L and CPAP CPAP instructions: as above settings Wound(s) RT BUTTOCK: Wound Type: Pressure Injury LEFT BUTTOCK: Wound Type: Pressure Injury COCCYX: Wound Type: Pressure Injury SARA ARMS: Wound Type: CAT SCRATCHES SARA LEGS: Wound Type: CAT SCRATCHES right leg: Wound Type: Surgical Incision right hip: Wound Type: Surgical Incision Therapies Weight Bearing: Toe-touch weight bearing (right leg) Physical Therapy: Eval and Treat Occupational Therapy: Eval and Treat Problem/Diagnosis (1) Atrial fibrillation: Status: Acute Code(s): I48.91 - Unspecified atrial fibrillation (2) Closed fracture of right distal femur: Status: Acute Code(s): S72.401A - Unspecified fracture of lower end of right femur, initial encounter for closed fracture Plan 1. Fracture of the distal right femur-postop day 3-continue PT and OT, we are awaiting approval for the patient to go to a skilled care facility #2 chronic atrial fibs/flutter-patient is on anticoagulation and metoprolol, I have asked cardiology to see the patient regarding further input for rate control #3 class III obesity-complicates care, management, recovery, and prognosis #4 obstructive sleep apnea-patient wears CPAP #5 chronic hypoxic respiratory failure-patient uses 3 L of oxygen continuously at baseline Total clinical time spent by myself addressing the patient's medical issues, reviewing all of his data, and collaborating with patient's care team: 35 min utes Allergies/Procedures Done in Hospital Allergies duloxetine (From Cymbalta) Allergy (Severe, Verified 01/22/25 14:30) Other SERATONIN SYNDROME amiodarone Adverse Reaction (Verified 01/26/25 03:05) mild dyspnea Procedures: - (ORIF right femur) Type of Care/Length of Stay Estimated LOS: More Than 30 Days Type of Care Needed: Intermediate Rehab Potential: Fair Prognosis: Fair Additional Orders/Day of Discharge H&P will serve as current which was dated: 01/22/25 Day of Discharge: 01/27/25 Dietary and Speech Recommendations Dietitian Recommendations/Changes: Continue Regular diet to optimize oral intake. Discharge Plan Admission Admit Date/Time: 01/22/25 19:03 Primary Reason for Your Visit: right femur fracture Attending Provider: Chapo Sims Primary Care Provider: Chalo Mclean [employer] Consult[employer] Providers: Soledad Sherman; Michael Tse; Mario Contreras; Semaj Roberts Discharge Orders/Prescriptions Prescriptions: New cyclobenzaprine 10 mg Tablet 10 mg PO QHS Qty: 0 0RF albuterol sulfate 2.5 mg /3 mL (0.083 %) Solution For Nebulization 2.5 mg inhalation Q2H PRN PRN (Reason: SOB &/OR WHEEZING) Qty: 0 0RF melatonin 3 mg Tablet 3 mg PO QHS PRN PRN (Reason: Insomnia) Qty: 0 0RF digoxin 250 mcg (0.25 mg) Tablet 250 mcg PO DAILY Qty: 0 0RF acetaminophen 500 mg Tablet 1,000 mg PO Q8 Qty: 0 0RF amitriptyline 25 mg Tablet 25 mg PO QHS Qty: 0 0RF docusate sodium 100 mg Capsule 100 mg PO BID Qty: 0 0RF finasteride 5 mg Tablet 5 mg PO DAILY Qty: 0 0RF menthol-zinc oxide [Calmoseptine] 0.44-20.6 % Ointment 1 applic topical BID Qty: 0 0RF Protocol: *Topical Application Instructions APPLICATION INSTRUCTIONS: buttocks, coccyx metoprolol succinate 100 mg Tablet Extended Release 24 Hr 100 mg PO BID Qty: 0 0RF nystatin 100,000 unit/gram Powder 1 applic topical BID Qty: 0 0RF Protocol: *Topical Application Instructions APPLICATION INSTRUCTIONS: abdominal, groin folds. Under breasts. oxycodone 5 mg Tablet 15 mg PO Q4H PRN PRN (Reason: Pain Score 4-10 Or Pre Pt/Ot) 2 Days Qty: 15 0RF Xarelto 20 mg tablet 20 mg PO DAILY Qty: 1 0RF Rx Instructions: must administer with evening meal sennosides-docusate sodium [Stimulant Laxative Plus] 8.6-50 mg Tablet 2 tab PO BID PRN PRN (Reason: Constipation) Qty: 0 0RF tamsulosin 0.4 mg Capsule 0.4 mg PO DAILY Qty: 0 0RF Discontinued metoprolol succinate 100 mg tablet extended release 24 hr 100 mg PO Q12H cyanocobalamin (vitamin B-12) 1,000 MCG/ML solution 1,000 mcg IM Q30D Patient Comments: GETS FIRST OF THE MONTH tamsulosin 0.4 mg Capsule 0.4 mg PO DAILY finasteride 5 mg tablet 5 mg PO DAILY Patient Comments: TAKE 1 TABLET BY MOUTH EVERY DAY doxepin 50 mg capsule 50 mg PO QHS Patient Comments: TAKE 1 CAPSULE BY MOUTH AT BEDTIME cyclobenzaprine 10 mg tablet 10 mg PO QHS amitriptyline 25 mg tablet 25 mg PO QHS fluconazole 150 mg tablet 150 mg PO DAILY furosemide 40 mg tablet 40 mg PO DAILY PRN (Reason: swelling) calcium carbonate 200 mg calcium (500 mg) Tablet,Chewable 1,000 mg PO Q4H PRN PRN (Reason: DYSPEPSIA/INDIGESTION) Qty: 0 0RF acetaminophen 325 mg Tablet 650 mg PO Q6H PRN PRN (Reason: Pain 1-10 Or Fever >100.7) Qty: 0 0RF albuterol sulfate 2.5 mg /3 mL (0.083 %) Solution For Nebulization 2.5 mg inhalation Q2H PRN PRN (Reason: SOB &/OR WHEEZING) Qty: 0 0RF nystatin [Nyamyc] 100,000 unit/gram Powder 1 applic topical TID Qty: 0 0RF Protocol: *Topical Application Instructions APPLICATION INSTRUCTIONS: apply to affected areas Xarelto 20 mg tablet 15 mg PO QDAY Rx Instructions: must administer with evening meal Referrals / Follow Up: Chalo Mclean Chi, MD [Primary Care Provider] - Disposition Disposition (needs filled in before D/C Order can be placed): NonSkilled NH/Intermed Care (1) Atrial fibrillation Qualifiers: Atrial fibrillation type: paroxysmal Qualified Code(s): I48.0 - Paroxysmal atrial fibrillation (2) Closed fracture of right distal femur Qualifiers: Encounter type: initial encounter
[2025-01-27] MEDS: 0.9% Saline Lock 10 ML Syringe IV (12:15)
[2025-01-27] MEDS: HYDROmorphone 0.5 MG/0.5 ML SYRINGE IV (12:15)
--- NOTE | 2025-01-27 12:58 | CASEMGMT ---
SW sent all necessary information to [facility] to obtain a level of care. [facility] asked if patient will have his own cpap. SW spoke with patient and he does have his own cpap machine. SW received the level of care. SW notified physician he can discharge patient. [facility]. Plan: d/c to [facility] under intermediate level of care on a PASRR. Physicians will transport patient. Holly TEMPLE
--- NOTE | 2025-01-27 13:16 | CASEMGMT ---
Addendum entered by Padmaja Gonzales 01/27/25 14:52: Updated discharge orders sent to [facility]. Padmaja Gonzales DC Planning Asst. Original Note: Discharge Planning Discharge orders, signed med list, LOC, and transport time sent to [facility]. Physicians will transport pt by wheelchair at 3p. Nursing, SW, and pt updated. Pt states that he will update family and caregiver. Padmaja Gonzales DC Planning Asst.
--- NOTE | 2025-01-27 14:20 | DS.PCM_ITS ---
Providers Date of Admission: 01/22/25 Date of Discharge: 01/27/25 Primary Care Physician: Dr. Chalo Mclean MD Consultations 01/22/25 19:45 Consult: Orthopedics Routine Consulting Provider: Michael Tse Reason for Consult: distal femoral fx EMERGENT Consult: No Notified: Yes Date Notified: 01/22/25 Time Notified: 19:05 Method of Notification: ED Physician Initiated 01/26/25 11:04 Consult: Cardiology Routine Consulting Provider: Semaj Roberts Reason for Consult: A-flutter/fib EMERGENT Consult: No Notified: Yes Date Notified: 01/26/25 Time Notified: 11:04 Method of Notification: Verbal Reason For Visit: DISTAL RIGHT FEMUR FRACTURE Diagnosis Discharge Diagnosis (1) Atrial fibrillation: Status: Acute Code(s): I48.91 - Unspecified atrial fibrillation Qualifiers: Atrial fibrillation type: paroxysmal Qualified Code(s): I48.0 - Paroxysmal atrial fibrillation (2) Closed fracture of right distal femur: Status: Acute Code(s): S72.401A - Unspecified fracture of lower end of right femur, initial encounter for closed fracture Qualifiers: Encounter type: initial encounter Plan 1. Fracture of the distal right femur-postop day 3-continue PT and OT, we are awaiting approval for the patient to go to a skilled care facility #2 chronic atrial fibs/flutter-patient is on anticoagulation and metoprolol, I have asked cardiology to see the patient regarding further input for rate control #3 class III obesity-complicates care, management, recovery, and prognosis #4 obstructive sleep apnea-patient wears CPAP #5 chronic hypoxic respiratory failure-patient uses 3 L of oxygen continuously at baseline Total clinical time spent by myself addressing the patient's medical issues, reviewing all of his data, and collaborating with patient's care team: 35 minutes Medications at Discharge Home Medications acetaminophen 500 mg tablet 1,000 mg (2 x 500 mg) PO Q8 #0 tabs 01/27/25 albuterol sulfate 2.5 mg/3 mL (0.083 %) solution for nebulization 2.5 mg (3 mL) inhalation Q2H PRN PRN SOB &/OR WHEEZING #0 mL 01/27/25 amitriptyline 25 mg tablet 25 mg PO QHS #0 tabs 01/27/25 cyclobenzaprine 10 mg tablet 10 mg PO QHS #0 tabs 01/27/25 digoxin 250 mcg (0.25 mg) tablet 250 mcg PO DAILY #0 tabs 01/27/25 docusate sodium 100 mg capsule 100 mg PO BID #0 caps 01/27/25 finasteride 5 mg tablet 5 mg PO DAILY #0 tabs 01/27/25 melatonin 3 mg tablet 3 mg PO QHS PRN PRN Insomnia #0 tabs 01/27/25 menthol 0.44 %-zinc oxide 20.6 % topical ointment (Calmoseptine) 1 applic topical BID #0 grams 01/27/25 metoprolol succinate 100 mg tablet,extended release 24 hr 100 mg PO BID #0 tabs 01/27/25 nystatin 100,000 unit/gram topical powder 1 applic topical BID #0 grams 01/27/25 oxycodone 5 mg tablet 15 mg (3 x 5 mg) PO Q4H PRN PRN Pain Score 4-10 Or Pre Pt/Ot 2 days #15 tabs 01/27/25 rivaroxaban 20 mg tablet (Xarelto) 20 mg PO DAILY #1 TAB 01/27/25 sennosides 8.6 mg-docusate sodium 50 mg tablet (Stimulant Laxative Plus) 2 tab PO BID PRN PRN Constipation #0 tabs 01/27/25 tamsulosin 0.4 mg capsule 0.4 mg PO DAILY #0 caps 01/27/25 Hospital Course Operations - (ORIF right distal femur) Procedures None Summary of Care Provided Minutes Spent on Discharge: 32 Hospital Course: This 64-year-old white male was seen in the emergency room at [facility] after falling out of his lift chair and landing on his right leg. Patient was unable to bear weight and had extreme pain in his right lower thigh area. Patient was evaluated in the emergency room at [facility], x-ray imaging showed a closed fracture of the right distal femur. Patient was admitted to PCU and seen in consultation by orthopedic surgery, he underwent ORIF of the right distal femur and was seen by PT and OT postop. Patient had chronic atrial fibrillation, his medication was adjusted by cardiology due to an increased heart rate during his hospital stay. Patient requested to go to a residential facility for inpatient rehab services at the time of discharge from the hospital. On 01/27/2025, patient was seen and examined: On examination he appeared in no distress, patient had class III obesity. Vital signs as documented. Skin warm and dry and without overt rashes. Neck without JVD, neck was supple, trachea midline, thyroid was normal. Lungs clear bilaterally, normal air movement was noted. Heart exam notable for irregular rhythm, normal sounds and absence of murmurs, rubs or gallops. Abdomen unremarkable and without evidence of organomegaly, masses, or abdominal aortic enlargement. Bowel sounds are present, abdomen is not distended. Extremities nonedematous, no cyanosis was noted, no clubbing was noted. Neuro: Cranial nerves II through XII are grossly intact, no focal motor deficits were noted, sensation to light touch and pinprick intact, motor exam 5/5 throughout. Psych: Patient is alert and oriented x3, he does not appear anxious or depressed, he does not appear agitated. Patient was discharged to residential facility on 01/27/2025 in stable condition Weight / BMI Weight Weight: 191.3 kg Body Mass Index (BMI) 54.1 ABG / Lab / Microbiology Data 01/26/25 04:09 01/26/25 04:09 Microbiology: Microbiology 01/22/25 10:20 Urine, Clean Catch Urine Culture - Final GNR Poss Pseudomonas sp Mixed Gram Positive Organisms D/C Instructions DC O2, CPAP, BIPAP Needs Home O2 Discharge instructions: Yes Type of respiratory needs?: Oxygen Oxygen frequency: Continuous Continuous oxygen liters per minute: 4 L and CPAP CPAP instructions: as above settings DC home with Oxygen: Yes Home O2 MD Review: I have reviewed the oxygen testing, and the patient qualifies for home oxygen equipment and portability. The patient is mobile in the home and the community. Meaningful Use Info Meaningful Use Meaningful Use Diagnoses (Choose all that apply): None applicable Ischemic Stroke Statin Dosing Therapy Reference: STATIN DOSE THERAPY REFERENCE: * Patients > 75 years receive moderate or high dose statin therapy. * Patients 75 years or YOUNGER should receive HIGH intensity statin dose unless contraindicated. You will be required to document reason for non-treatment if statin daily dose does not meet guidelines. HIGH DOSE STATIN THERAPY DAILY Atorvastatin > than or = to 40 mg Rosuvastatin > than or = to 20 mg Amlodipine + Atorvastatin > than or = to 2.5/40 mg Ezetimibe + Simvastatin 10/80 mg Simvastatin 80mg Discharge Plan Admission Admit Date/Time: 01/22/25 19:03 Primary Reason for Your Visit: right femur fracture Attending Provider: Chapo Sims Primary Care Provider: Chalo Mclean Chi Consulting Providers: Soledad Sherman; Michael Tse; Mario Contreras; Semaj Roberts Discharge Orders/Prescriptions Prescriptions: New cyclobenzaprine 10 mg Tablet 10 mg PO QHS Qty: 0 0RF albuterol sulfate 2.5 mg /3 mL (0.083 %) Solution For Nebulization 2.5 mg inhalation Q2H PRN PRN (Reason: SOB &/OR WHEEZING) Qty: 0 0RF melatonin 3 mg Tablet 3 mg PO QHS PRN PRN (Reason: Insomnia) Qty: 0 0RF digoxin 250 mcg (0.25 mg) Tablet 250 mcg PO DAILY Qty: 0 0RF acetaminophen 500 mg Tablet 1,000 mg PO Q8 Qty: 0 0RF amitriptyline 25 mg Tablet 25 mg PO QHS Qty: 0 0RF docusate sodium 100 mg Capsule 100 mg PO BID Qty: 0 0RF finasteride 5 mg Tablet 5 mg PO DAILY Qty: 0 0RF menthol-zinc oxide [Calmoseptine] 0.44-20.6 % Ointment 1 applic topical BID Qty: 0 0RF Protocol: *Topical Application Instructions APPLICATION INSTRUCTIONS: buttocks, coccyx metoprolol succinate 100 mg Tablet Extended Release 24 Hr 100 mg PO BID Qty: 0 0RF nystatin 100,000 unit/gram Powder 1 applic topical BID Qty: 0 0RF Protocol: *Topical Application Instructions APPLICATION INSTRUCTIONS: abdominal, groin folds. Under breasts. oxycodone 5 mg Tablet 15 mg PO Q4H PRN PRN (Reason: Pain Score 4-10 Or Pre Pt/Ot) 2 Days Qty: 15 0RF Xarelto 20 mg tablet 20 mg PO DAILY Qty: 1 0RF Rx Instructions: must administer with evening meal sennosides-docusate sodium [Stimulant Laxative Plus] 8.6-50 mg Tablet 2 tab PO BID PRN PRN (Reason: Constipation) Qty: 0 0RF tamsulosin 0.4 mg Capsule 0.4 mg PO DAILY Qty: 0 0RF Discontinued metoprolol succinate 100 mg tablet extended release 24 hr 100 mg PO Q12H cyanocobalamin (vitamin B-12) 1,000 MCG/ML solution 1,000 mcg IM Q30D Patient Comments: GETS FIRST OF THE MONTH tamsulosin 0.4 mg Capsule 0.4 mg PO DAILY finasteride 5 mg tablet 5 mg PO DAILY Patient Comments: TAKE 1 TABLET BY MOUTH EVERY DAY doxepin 50 mg capsule 50 mg PO QHS Patient Comments: TAKE 1 CAPSULE BY MOUTH AT BEDTIME cyclobenzaprine 10 mg tablet 10 mg PO QHS amitriptyline 25 mg tablet 25 mg PO QHS fluconazole 150 mg tablet 150 mg PO DAILY furosemide 40 mg tablet 40 mg PO DAILY PRN (Reason: swelling) calcium carbonate 200 mg calcium (500 mg) Tablet,Chewable 1,000 mg PO Q4H PRN PRN (Reason: DYSPEPSIA/INDIGESTION) Qty: 0 0RF acetaminophen 325 mg Tablet 650 mg PO Q6H PRN PRN (Reason: Pain 1-10 Or Fever >100.7) Qty: 0 0RF albuterol sulfate 2.5 mg /3 mL (0.083 %) Solution For Nebulization 2.5 mg inhalation Q2H PRN PRN (Reason: SOB &/OR WHEEZING) Qty: 0 0RF nystatin [Nyamyc] 100,000 unit/gram Powder 1 applic topical TID Qty: 0 0RF Protocol: *Topical Application Instructions APPLICATION INSTRUCTIONS: apply to affected areas Xarelto 20 mg tablet 15 mg PO QDAY Rx Instructions: must administer with evening meal Referrals / Follow Up: Chalo Mclean Chi, MD [Primary Care Provider] - Disposition Disposition (needs filled in before D/C Order can be placed): NonSkilled NH/Intermed Care Charges/Coding Visit Charges Inpatient E&M: 41100 Disch Hosp >30min
--- NOTE | 2025-01-27 15:14 | NURSING ---
Report called to ELIE Villa at [facility].
== END 2025-01-27 15:52 | disposition skilled nursing facility (03) | DRG 308 ==
LOC: ED 18:03 → MS3 22:36 → PCU 01-25 09:40 → ICU 01-29 15:01
PROVIDERS: Internal Medicine; Student in an Organized Health Care Education/Training Program; Admitting Provider Internal Medicine; Emergency Provider Emergency Medicine; PCP Family Medicine Geriatric Medicine; Visit Provider Internal Medicine
PROC: 0QSB04Z Reposition Right Lower Femur with Internal Fixation Device, Open Approach (ICD-10-PCS; CPT 27245; principal; 2025-01-24 07:05)
DX: S72.461A Displaced supracondylar fracture with intracondylar extension of lower end of right femur, initial encounter for closed fracture (principal); Z68.43 Body mass index [BMI] 50.0-59.9, adult; I48.92 Unspecified atrial flutter; N13.8 Other obstructive and reflux uropathy; Z99.81 Dependence on supplemental oxygen; I10 Essential (primary) hypertension; F32.A Depression, unspecified; I42.8 Other cardiomyopathies; J96.11 Chronic respiratory failure with hypoxia; I48.0 Paroxysmal atrial fibrillation; G47.33 Obstructive sleep apnea (adult) (pediatric); E87.5 Hyperkalemia; W17.89XA Other fall from one level to another, initial encounter; M79.7 Fibromyalgia; F41.9 Anxiety disorder, unspecified; I25.2 Old myocardial infarction; N40.1 Benign prostatic hyperplasia with lower urinary tract symptoms; E66.813 Obesity, class 3; Z79.01 Long term (current) use of anticoagulants; Z79.899 Other long term (current) drug therapy; Z87.891 Personal history of nicotine dependence
CPT/HCPCS: 36415; 36600; 70450; 71045; 72125; 72170; 73552; 73560; 73590; 73700; 76000; 80048; 80053; 81001; 82803; 82962; 83735; 84100; 84132; 85025; 87086; 87088; 93005; 94640; 94660; 94668; 94762; 97163; 97167; 97802; 99252; 99285; 99406; C1713; A4216; G0463